=== PATIENT | female | born 1960 | race Caucasian/White ===

== ENCOUNTER 2017-10-14 15:50 | Inpatient (IN) | payer BC, MEDICAID, SELFPAY ==
[2017-10-14 15:51] VITALS: BP 122/88; PULSE 81; RESP 16; TEMP 36.7; O2SAT 97; BMI 26.7
--- NOTE | 2017-10-14 16:09 | CT_ITS ---
STUDY: CT ABDOMEN AND PELVIS WITHOUT CONTRAST REASON FOR EXAM: Female, 57 years old. Lower abdominal pain RADIATION DOSAGE (If Supplied By Facility): CTDIvol = ( 8.21 ) mGy, DLP = ( 451.18 ) mGycm TECHNIQUE: Transaxial images were obtained from the dome of the diaphragm to the symphysis pubis without oral contrast, and without intravenous contrast. Sagittal and coronal images were reconstructed. Individualized dose optimization techniques were used for this CT. COMPARISON: June 17, 2017 FINDINGS: There is minor atelectasis within the dependent portion of the lungs The visualized portions of the heart are within normal limits. Normal liver. Normal gallbladder and extrahepatic biliary system. Normal spleen. Normal pancreas. Normal bilateral adrenal glands. No evidence for renal obstruction or ureteral calculus. There is a large simple cyst arising from the upper pole the right kidney. Normal visualized stomach. Mild diffuse ileus pattern. Diverticular changes of the distal descending and sigmoid colon in association with acute diverticulitis of the distal descending colon. There is extraluminal air bubble consistent with microperforation. There is no evidence for peridiverticular abscess. Appendix not visualized consistent with appendectomy Minor atherosclerotic changes of the aorta without evidence for aneurysm. Normal inferior vena cava. Normal retroperitoneum. Normal urinary bladder. Uterus not visualized consistent with hysterectomy. Normal abdominal wall. Lumbar spine demonstrates mild spondylosis. Left hip prosthesis is observed. CT/Abdomen/Pelvis without Cont IMPRESSION: Diverticulosis of the descending and sigmoid colon associated with acute diverticulitis and microperforation but no evidence for peridiverticular abscess. Other findings as above N.B. : The above information has been verbally conveyed by Ganga Chacon MD to Dr. Chris Darling , Referring Physician, on 10/14/2017 17:26:03 (ET). Electronically Signed: Ganga Chacon MD at 17:21 EST , Service support , N.B. : The above information has been verbally conveyed by Ganga Chacon MD to Dr. Chris Darling , Referring Physician, on 10/14/2017 17:26:03 (ET).
[2017-10-14 16:20] LABS: Absolute Neutrophil Count 15.7 X10^3/uL (2.0-7.7); Basophil# 0.01 X10^3/uL; Basophil% 0.1 % (0-1); Hemoglobin 14.2 g/dl (12.0-15.0); Lymphocyte % 11.3 % (19-41); Mean Corp Hgb Conc 33.8 g/gl (32-36); Mean Corpuscular Hgb 31.1 pg (27.0-32.0); Mean Corpuscular Volume 91.9 fL (81-99); Mean Platelet Vol. 11.3 fl (6.2-12.0); Monocyte# 1.54 X10^3/uL; Monocyte% 7.9 % (0-10); Neutrophil # 15.74 X10^3/uL (2.7-7.7); Neutrophil % 80.4 % (47-70); Platelet Count 230 K/mm3 (150-450); RBC Distribution Width CV 13.7 % (11.6-14.6); RBC Distribution Width SD 45.8 fl (35.1-43.9); Red Blood Count 4.57 M/mm3 (4.2-5.4); White Blood Count 19.5 K/mm3 (4.4-11.0)
[2017-10-14] MEDS: 0.9% Normal Saline 1,000 ML 125 ML IV (16:23)
[2017-10-14] MEDS: HYDROmorphone 1 MG/ML Syringe IV (16:23)
[2017-10-14] MEDS: Ondansetron 4 MG/2 ML Vial IV ×2 (16:23→20:31)
[2017-10-14 16:24] LABS: Differential Indicated SCAN CRITERIA MET; POSITIVE COUNT NO; POSITIVE DIFFERENTIAL YES; POSITIVE MORPHOLOGY NO
[2017-10-14 16:42] LABS: AST(SGOT) 14 U/L (15-37); Alanine Aminotransfer ALT/SGPT 24 U/L (13-56); Alkaline Phosphatase 104 U/L (45-117); Anion Gap 12 (5-15); BUN 17 mg/dL (7-18); BUN/Creat Ratio 19.2 RATIO (10-20); Calcium,Total 9.2 mg/dL (8.5-10.1); Chloride 101 mmol/L (98-107); Creatinine, Serum 0.89 mg/dL (0.55-1.02); EST Glomerular Filtration Rate 69 mL/min (>60); Est Glom Filt Rate - Afr Amer 84 mL/min (>60); Estimated Creatinine Clearance 71.13 ml/min; Globulin 4.2 g/dL (2.2-4.2); Glucose 116 mg/dL (74-106); Potassium 3.8 mmol/L (3.5-5.1); Protein, Total 8.2 g/dL (6.4-8.2); Sodium Level 138 mmol/L (136-145)
[2017-10-14 16:44] LABS: Platelet Estimate ADEQUATE (ADEQ); Platelet Morphology LARGE
[2017-10-14 16:51] LABS: Lactic Acid 2.1 mmol/L (0.4-2.0)
--- NOTE | 2017-10-14 16:51 | ED.RN ---
DR MCKOY NOTIFIED OF LACTIC ACID RESULTS
[2017-10-14 17:30] LABS: Red Blood Cells-Urine 0 SEEN /hpf (0-5)
--- NOTE | 2017-10-14 17:37 | ED.VISSUMM ---
- ER Visit Summary Date of Service: 10/14/17 Chief Complaint: [Abdominal pain] History of Present Illness: The patient is a 57 F [presents to the emergency department with abdominal pain that started yesterday. Patient has had fever up to 101 at home. Patient has had some nausea and dry heaves. Currently rates her pain a 10 out of 10. Patient describes the pain is lower abdomen. Patient states that she ate popcorn about an hour prior to her abdominal pain starting. Patient does have a history of diverticulitis. Patient denies urinary symptoms. Food does not seem to affect her pain. Patient has had prior appendectomy and hysterectomy.] Physical Examination: [HEENT-PERRLA, EOMI. Cranial nerves II through XII grossly intact. TMs clear. Mucous membranes moist. No adenopathy. Cardiovascular-regular rate and rhythm without murmur or ectopy Lungs-clear to auscultation, chest wall stable without crepitus or subcu emphysema Abdomen-normoactive bowel sounds, soft patient has tenderness over the lower abdomen diffusely especially over the left lower quadrant. There is some guarding. There is no rebound, rigidity, or perineal signs. Extremities-intact ?4, normal range of motion, normal pulses, atraumatic] Test Results: [CBC with differential obtained showed a white blood cell count of 19.5, hemoglobin 14, hematocrit 42, platelets 230. Chemistries unremarkable. LFTs were normal. Lactate was 2.1. Urinalysis pending. CT scan of the abdomen and pelvis showed acute diverticulitis with microperforation.] Emergency Department Course and Treatment: [Patient case was discussed with Dr. Paniagua who is the general surgeon on-call. Patient was started on Cipro and Flagyl and also discussed with the hospitalist Dr. Victoriano Skaggs who will evaluate patient for admission.] Treatment Plan: [Patient will be admitted for IV antibiotics and pain control] Disposition: [Admit] Impression: [Acute diverticulitis Sepsis] This note was generated with [employer] dictation software. It may contain incorrect words, spelling, and punctuation that were not noted in review of the chart prior to signing ED Disposition - Plan for ED Patient: Chief Complaint: Abd Pain Referrals: Thor Cho III, MD [Primary Care Provider] -
[2017-10-14 17:38] LABS: Color, Urine Yellow (Yellow); Glucose, Dipstick Normal (Normal); Ketone-Dipstick 5 mg/dl (Negative); Leukocyte Esterase-Dipstick 500 /ul (Negative); Nitrite-Dipstick Negative (Negative); Occult Blood-Urine 50 /ul (Negative); Protein-Dipstick 30 mg/dl (Negative); Urine Bilirubin Dipstick Negative (Negative); Urine Clarity Clear (Clear); Urine Urobilinogen Normal (Normal)
[2017-10-14 17:45] LABS: Squamous Epithelial Cells - UA 0-5 SEEN /hpf (5-10); White Blood Cells 5-10 SEEN /hpf (0-5)
[2017-10-14 17:46] LABS: Bacteria RARE /hpf (None Seen); Mucous, Urine RARE /hpf (<or=2+)
--- NOTE | 2017-10-14 17:51 | PCM.HP.STD ---
Problem List (1) Sepsis Status: Acute (2) Diverticulitis Status: Acute (3) HTN (hypertension) Status: Chronic (4) Anxiety Status: Chronic History of Present Illness Date of Admission: 10/14/17 Chief Complaint: abdominal pain The patient is a 57 year old F with a history of acute diverticulitis treated as an outpatient about 3 months ago with cipro/flagyl who presents to the ER with lower abdominal pain. She began having abdominal pain yesterday afternoon, which worsened severely last night. No blood reported in her stool. She has also had some diarrhea but admits to taking a suppository last night. She reported a fever of 101 at home, no chills. CT of the abdomen shows acute diverticulitis and microperforation. She continues to have significant abdominal pain localized to the lower abdomen, both sides. No nausea or vomiting. [] Past Medical History Past Medical History (Chronic Problems): Chronic Problems HTN (hypertension) (Chronic) Anxiety (Chronic) Allergies oxycodone Allergy (Verified 10/14/17 15:50) Swelling nabumetone [From Relafen] Adverse Reaction (Verified 10/14/17 15:50) Nausea Sulfa (Sulfonamide Antibiotics) Adverse Reaction (Verified 10/14/17 15:50) Nausea tramadol HCl [From Ultram] Adverse Reaction (Verified 10/14/17 15:50) Nausea Home Medications: Ambulatory Orders Medication Instructions Recorded Doxylamine Succinate [Unisom] 25 mg PO QHS 06/07/15 Lorazepam [Ativan] 0.5 mg PO DAILY PRN PRN 06/07/15 Cholecalciferol (VIT D3) [Vitamin 5,000 unit PO DAILY 03/24/16 D3] Magnesium 300 mg PO DAILY 03/24/16 Trazodone HCl 50 mg PO QHS 03/24/16 Vitamin B Complex 1 each PO DAILY 03/24/16 Metoprolol Succinate 25 mg PO QHS 04/24/16 Multivitamins,Therapeutic 1 tab PO DAILY 06/17/17 [Multivitamin] Surgical History: appendectomy, hysterectomy, rotator cuff repair, total hip arthroplasty, - - brain surgery for hydrocephalus, tubal ligation Psychiatric History: No pertinent psych hx 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 Denies: Chills, Weight Change HEENT: Denies: Head Aches, Sinus Congestion, Sinus Drainage Cardiovascular: Denies: Chest Pain, Palpitations Respiratory: Denies: Cough, Shortness of breath at rest, Sputum production Gastrointestinal: Reports: Abdominal Pain, Diarrhea. Denies: Hematochezia, Nausea, Vomiting Genitourinary: Denies: Dysuria Musculoskeletal: Denies: Joint Pain, Joint Tenderness Skin: Denies: Rash, Wounds Neurological: Denies: Numbness, Tingling, Focal weakness Psychiatric: Denies: Anxiety, Depression, Homicidal Ideations, Suicidal Ideations Hematologic/ Lymphatic: Denies: Easy Bruising, Easy Bleeding VTE Information - Inpt Only VTE Present on Admission: No VTE Mechan Device Prophylaxis: SCD's VTE Pharm Prophylaxis ordered?: No Reason prophylaxis not ordered:: Medical Contraindication Patient Problems: Active and Suspected Problems Diverticulitis (Acute) Sepsis (Acute) - Physical Exam General: Alert, Oriented x3, Cooperative, - - appears in significant discomfort in bed HEENT: Atraumatic, PERRLA, EOMI, Normocephalic Neck: Supple, No JVD, Negative Carotid Bruits Lungs: Clear to auscultation, Normal air movement Cardiovascular: Regular rate, No murmurs Abdomen: Bowel Sounds Present, Tender - LUQ, RLQ, LLQ Extremities: No edema, Capillary Refill Less than 3 Seconds Skin: No rashes, No breakdown Musculoskeletal: No Tenderness to Palpation of Joints or Extremities Neurological: Cranial nerves II-XII grossly intact Psych/Mental Status: Normal Affect, Appropriate, Alert and oriented to time, place, person, mood and affect Vital Signs Temp Pulse Resp BP Pulse Ox 98.0 F 81 16 122/88 H 97 10/14/17 15:51 10/14/17 15:51 10/14/17 15:51 10/14/17 15:51 10/14/17 15:51 Oxygen Delivery Method Room Air Weight: 82.1 kg Body Mass Index (BMI) 26.7 Laboratory Tests Past 24 Hrs 10/14/17 10/14/17 10/14/17 16:00 16:00 16:15 WBC 19.5 H RBC 4.57 Hgb 14.2 Hct 42.0 MCV 91.9 MCH 31.1 MCHC 33.8 RDW 13.7 RDW Differential 45.8 H Plt Count 230 MPV 11.3 Immature Gran % (Auto) 0.300 Neut % (Auto) 80.4 H Lymph % (Auto) 11.3 L [place] % (Auto) 7.9 Eos % (Auto) 0.0 Baso % (Auto) 0.1 Absolute Neuts (auto) 15.7 H Absolute Lymphs (auto) 2.20 Total Counted Not Reportable Platelet Estimate ADEQUATE Plt Morphology Comment LARGE Sodium 138 Potassium 3.8 Chloride 101 Carbon Dioxide 25.0 Anion Gap 12 BUN 17 Creatinine 0.89 Estim Creat Clear Calc 71.13 Est GFR (MDRD) Af Amer 84 Est GFR (MDRD) Non-Af 69 BUN/Creatinine Ratio 19.2 Glucose 116 H Lactic Acid 2.1 H Calcium 9.2 Total Bilirubin 0.90 AST 14 L ALT 24 Alkaline Phosphatase 104 Total Protein 8.2 Albumin 4.0 Globulin 4.2 Albumin/Globulin Ratio 1.0 Urine Color Urine Clarity Urine pH Ur Specific [place] Urine Protein Urine Glucose (UA) Urine Ketones Urine Occult Blood Urine Nitrite Urine Bilirubin Urine Urobilinogen Ur Leukocyte Esterase Urine RBC Urine WBC Ur Squamous Epith Cells Urine Bacteria Urine Mucus 10/14/17 17:20 WBC RBC Hgb Hct MCV MCH MCHC RDW RDW Differential Plt Count MPV Immature Gran % (Auto) Neut % (Auto) Lymph % (Auto) [place] % (Auto) Eos % (Auto) Baso % (Auto) Absolute Neuts (auto) Absolute Lymphs (auto) Total Counted Platelet Estimate Plt Morphology Comment Sodium Potassium Chloride Carbon Dioxide Anion Gap BUN Creatinine Estim Creat Clear Calc Est GFR (MDRD) Af Amer Est GFR (MDRD) Non-Af BUN/Creatinine Ratio Glucose Lactic Acid Calcium Total Bilirubin AST ALT Alkaline Phosphatase Total Protein Albumin Globulin Albumin/Globulin Ratio Urine Color Yellow Urine Clarity Clear Urine pH 6.0 Ur Specific [place] 1.020 Urine Protein 30 H Urine Glucose (UA) Normal Urine Ketones 5 H Urine Occult Blood 50 H Urine Nitrite Negative Urine Bilirubin Negative Urine Urobilinogen Normal Ur Leukocyte Esterase 500 H Urine RBC 0 SEEN Urine WBC 5-10 SEEN Ur Squamous Epith Cells 0-5 SEEN Urine Bacteria RARE Urine Mucus RARE Assessment/Plan Active and Suspected Problems Diverticulitis (Acute) Sepsis (Acute) 1. Acute Recurrent diverticulitis with microperforation with severe sepsis - BL lower abdominal pain, tenderness on palpitation, elevated lactate, significant leukocytosis, fever at home of 101, source of infection on CT abdomen with diverticulitis and microperforation. We will start cipro and flagyl and provide IV pepcid. Patient will be made NPO and given IV fluids with supportive care. As she has a microperforation Dr. Montez will be consulted. Last episode about 3 months ago treated as outpatient with cipro flagyl. No reported bleeding and Hgb stable. 2. HTN - on metoprolol 3. Chronic back pain and DJD 4. Anxiety - home meds DVT ppx: SCDs This patient was seen by Ronnie Platt PA-C under the supervision of Doctor Skaggs.
[2017-10-14] MEDS: 0.9% Normal Saline 1,000 ML 1000 ML IV (17:55)
[2017-10-14 17:56] VITALS: BP 121/76; PULSE 87; RESP 15; TEMP 36.6; O2SAT 99
[2017-10-14 18:31] VITALS: BP 114/67; PULSE 75; RESP 18; TEMP 36.7; O2SAT 97
[2017-10-14 18:38] VITALS: BMI 27.6
[2017-10-14 18:46] VITALS: BMI 27.7
[2017-10-14 20:05] VITALS: BP 116/59; PULSE 73; RESP 18; TEMP 37.9; O2SAT 94
[2017-10-14 20:17] LABS: Reflex Lactate? Y
[2017-10-14 20:40] VITALS: PULSE 73; RESP 18; O2SAT 94
[2017-10-14 20:59] LABS: Lactic Acid 1.9 mmol/L (0.4-2.0)
[2017-10-14 22:14] VITALS: BP 116/59; PULSE 73
[2017-10-14] MEDS: traZODone 50 MG Tablet PO (22:14)
[2017-10-14] MEDS: Metoprolol(XL)Succ 25 MG Tablet PO (22:14)
--- NOTE | 2017-10-14 23:45 | CON.PCM_ITS ---
Problem List (1) Diverticulitis Status: Acute Reason for Consult Date of Consultation: 10/14/17 History of Present Illness: The patient is a 57 year old F with a one day history of LLQ pain, fever, nausea and diarrhea. She has had prior colitis. She also notes a history of feeling that she has bloating. She underwent colonoscopy 4 years previously that demonstrated sigmoid diverticulosis. She feels this is related to eating popcorn. She took a dulcolax tablet and then had diarrhea. CT scan demonstrated sigmoid diverticulitis and a small amount of extraluminal air consistent with microperforation. Her WBC count is 19K In June, she was evaluated and treated for mild diverticulitis. Past Medical History Past Medical History (Chronic Problems): Chronic Problems HTN (hypertension) (Chronic) Anxiety (Chronic) Allergies oxycodone Allergy (Verified 10/14/17 15:50) Swelling nabumetone [From Relafen] Adverse Reaction (Verified 10/14/17 15:50) Nausea Sulfa (Sulfonamide Antibiotics) Adverse Reaction (Verified 10/14/17 15:50) Nausea tramadol HCl [From Ultram] Adverse Reaction (Verified 10/14/17 15:50) Nausea Home Medications: Ambulatory Orders Medication Instructions Recorded Doxylamine Succinate [Unisom] 25 mg PO QHS 06/07/15 Lorazepam [Ativan] 0.5 mg PO DAILY PRN PRN 06/07/15 Cholecalciferol (VIT D3) [Vitamin 5,000 unit PO DAILY 03/24/16 D3] Magnesium 300 mg PO DAILY 03/24/16 Trazodone HCl 50 mg PO QHS 03/24/16 Vitamin B Complex 1 each PO DAILY 03/24/16 Metoprolol Succinate 25 mg PO DAILY 04/24/16 Multivitamins,Therapeutic 1 tab PO DAILY 06/17/17 [Multivitamin] Surgical History: appendectomy, hysterectomy, rotator cuff repair, total hip arthroplasty, - - brain surgery for hydrocephalus, tubal ligation Psychiatric History: 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 Denies: Vomiting Genitourinary: Denies: Dysuria Musculoskeletal: Denies: Joint Pain, Joint Tenderness Skin: Denies: Rash, Wounds Neurological: Denies: Numbness, Tingling, Focal weakness Psychiatric: Denies: Anxiety, Depression, Homicidal Ideations, Suicidal Ideations Hematologic/ Lymphatic: Denies: Easy Bruising, Easy Bleeding Patient Problems: Active and Suspected Problems Diverticulitis (Acute) Sepsis (Acute) - Physical Exam General: Alert, Oriented x3 Lungs: Clear to auscultation, Normal air movement Cardiovascular: Regular rate, Regular Rhythm Abdomen: Bowel Sounds Present, Soft, Tender - LLQ Vital Signs Temp Pulse Resp BP Pulse Ox 100.2 F H 73 18 116/59 L 94 10/14/17 20:05 10/14/17 22:14 10/14/17 20:40 10/14/17 22:14 10/14/17 20:40 Oxygen Delivery Method Room Air Weight: 82.554 kg Body Mass Index (BMI) 27.6 Laboratory Tests Past 24 Hrs 10/14/17 10/14/17 20:25 22:00 Lactic Acid 1.9 Cancelled Assessment/Plan Active and Suspected Problems Diverticulitis (Acute) Sepsis (Acute) diverticulitis with an elevated white blood cell count of 19,000, and microperforation. I recommend bowel rest. I'm fine with a few sips and ice chips. The patient has an order for ciprofloxacin and Flagyl which I feel is appropriate antibiotic coverage for this condition. I discussed with the patient and most likely her symptoms respond to conservative treatments of bowel rest and antibiotics. We will further discuss. Given the fact this is recurring symptom, the need for endoscopy in 6-8 weeks and consideration for surgical resection. I also discussed that progression to complicated diverticulitis is rare. If this becomes complicated diverticulitis -that might require intervention such as percutaneous drainage or urgent surgical intervention.
[2017-10-15] VITALS (7 sets, daily range): BP systolic 101–116; BP diastolic 54–71; PULSE 57–73; RESP 16–18; TEMP 36.9–37.6; O2SAT 93–98
[2017-10-15] MEDS: 0.9% Normal Saline 1,000 ML 150 ML IV ×3 (01:40→18:28)
[2017-10-15] MEDS: Ondansetron 4 MG/2 ML Vial IV ×5 (01:44→20:16)
[2017-10-15 05:41] LABS: Anion Gap 7 (5-15); BUN 15 mg/dL (7-18); BUN/Creat Ratio 22.2 RATIO (10-20); Calcium,Total 8.1 mg/dL (8.5-10.1); Chloride 105 mmol/L (98-107); Creatinine, Serum 0.68 mg/dL (0.55-1.02); EST Glomerular Filtration Rate 95 mL/min (>60); Est Glom Filt Rate - Afr Amer 114 mL/min (>60); Estimated Creatinine Clearance 89.86 ml/min; Glucose 112 mg/dL (74-106); Potassium 3.9 mmol/L (3.5-5.1); Sodium Level 139 mmol/L (136-145)
[2017-10-15 05:42] LABS: Absolute Lymphocyte Count 1.39 X10^3/ul (0.83-4.51); Basophil# 0.02 X10^3/uL; Basophil% 0.2 % (0-1); Eosinophil# 0.01 X10^3/uL; Eosinophils% 0.1 % (0-5); Hematocrit 34.5 % (37-47); Hemoglobin 11.5 g/dl (12.0-15.0); Lymphocyte # 1.39 X10^3/ul (4.0); Lymphocyte % 11.1 % (19-41); Mean Corp Hgb Conc 33.3 g/gl (32-36); Mean Corpuscular Hgb 31.6 pg (27.0-32.0); Mean Corpuscular Volume 94.8 fL (81-99); Mean Platelet Vol. 11.6 fl (6.2-12.0); Monocyte# 1.04 X10^3/uL; Monocyte% 8.3 % (0-10); Neutrophil # 10.01 X10^3/uL (2.7-7.7); Neutrophil % 80.1 % (47-70); Platelet Count 178 K/mm3 (150-450); RBC Distribution Width CV 13.6 % (11.6-14.6); RBC Distribution Width SD 44.7 fl (35.1-43.9); Red Blood Count 3.64 M/mm3 (4.2-5.4); White Blood Count 12.5 K/mm3 (4.4-11.0)
[2017-10-15 05:43] LABS: POSITIVE COUNT NO; POSITIVE DIFFERENTIAL NO; POSITIVE MORPHOLOGY NO
--- NOTE | 2017-10-15 08:41 | RAD_ITS ---
STUDY: X-RAY - ABDOMEN/PELVIS REASON FOR EXAM: Female, 57 years old. Abdominal pain and abdominal distention. History of recent diverticulitis. TECHNIQUE: Two AP supine views of the abdomen and pelvis. COMPARISON: None. FINDINGS: Minimally dilated small bowel loops in the left upper quadrant. Gas and fecal material are seen throughout the colon. The visualized liver, spleen and kidneys are grossly normal in size and morphology. There are calcified phleboliths in the pelvis. There are degenerative changes of the visualized lumbar spine. The patient is status post left total hip replacement. RAD/Abdomen Single View IMPRESSION: Moderately dilated small bowel loops in the left mid abdomen. Follow-up is recommended. Electronically Signed: Alexandre Suggs MD at 10:34 EST Tel [phone], Service support ,
[2017-10-15] MEDS: Ciprofloxacin 400 MG/200 ML BAG 200 MG IV ×2 (10:16→23:16)
[2017-10-15] MEDS: 0.9% NaCl Peripheral Flush Adult/Peds IV ×3 (10:16→20:22)
--- NOTE | 2017-10-15 11:00 | PN_ITS ---
Patient Problems: Active and Suspected Problems Diverticulitis (Acute) Sepsis (Acute) Subjective: Pt still with a significant amount of LLQ abdominal pain reported this AM, and she feels that she is distended. She has not moved her bowels since admission. No nausea or vomiting. She denies fever or chills. She remains NPO. - Physical Exam General: Alert, Oriented x3, Cooperative HEENT: Atraumatic, PERRLA, EOMI, Normocephalic Neck: Supple, No JVD, Negative Carotid Bruits Lungs: Clear to auscultation, Normal air movement Cardiovascular: Regular rate, No murmurs Abdomen: Hypoactive Bowel Sounds, Distended, Tender - especially over LLQ even with light palpation. But tender throughout with guarding. Extremities: No edema, Capillary Refill Less than 3 Seconds Skin: No rashes, No breakdown Musculoskeletal: No Tenderness to Palpation of Joints or Extremities Neurological: Cranial nerves II-XII grossly intact Psych/Mental Status: Normal Affect, Appropriate, Alert and oriented to time, place, person, mood and affect Vital Signs Temp Pulse Resp BP Pulse Ox 99.2 F H 57 L 16 104/57 L 96 10/15/17 08:00 10/15/17 08:00 10/15/17 08:00 10/15/17 08:00 10/15/17 08:00 Oxygen Flow Rate 2 Oxygen Delivery Method Room Air Weight: 82.554 kg Body Mass Index (BMI) 27.6 Intake and Output for Last 24 Hours 10/13/17 10/14/17 10/15/17 23:59 23:59 23:59 Intake Total 1765 / 1765 Output Total 1050 / 1050 Balance 715 / 715 Laboratory Tests Past 24 Hrs 10/14/17 10/14/17 10/15/17 20:25 22:00 05:10 WBC 12.5 H RBC 3.64 L Hgb 11.5 L Hct 34.5 L MCV 94.8 MCH 31.6 MCHC 33.3 RDW 13.6 RDW Differential 44.7 H Plt Count 178 MPV 11.6 Immature Gran % (Auto) 0.200 Neut % (Auto) 80.1 H Lymph % (Auto) 11.1 L [place] % (Auto) 8.3 Eos % (Auto) 0.1 Baso % (Auto) 0.2 Absolute Neuts (auto) 10.0 H Absolute Lymphs (auto) 1.39 Total Counted Not Reportable Sodium Potassium Chloride Carbon Dioxide Anion Gap BUN Creatinine Estim Creat Clear Calc Est GFR (MDRD) Af Amer Est GFR (MDRD) Non-Af BUN/Creatinine Ratio Glucose Lactic Acid 1.9 Cancelled Calcium 10/15/17 05:10 WBC RBC Hgb Hct MCV MCH MCHC RDW RDW Differential Plt Count MPV Immature Gran % (Auto) Neut % (Auto) Lymph % (Auto) [place] % (Auto) Eos % (Auto) Baso % (Auto) Absolute Neuts (auto) Absolute Lymphs (auto) Total Counted Sodium 139 Potassium 3.9 Chloride 105 Carbon Dioxide 27.0 Anion Gap 7 BUN 15 Creatinine 0.68 Estim Creat Clear Calc 89.86 Est GFR (MDRD) Af Amer 114 Est GFR (MDRD) Non-Af 95 BUN/Creatinine Ratio 22.2 H Glucose 112 H Lactic Acid Calcium 8.1 L Assessment/Plan Active and Suspected Problems Diverticulitis (Acute) Sepsis (Acute) 1. Acute Recurrent diverticulitis with microperforation with severe sepsis - Presented with BL lower abdominal pain, tenderness on palpitation, elevated lactate, significant leukocytosis, fever at home of 101, source of infection on CT abdomen with diverticulitis and microperforation. She is on cipro and flagyl, NPO, IV fluids, and surgery is following. Today she has some distention and is very tender on exam. Pain is more localized to the LLQ. WBC has improved , Lactate improved, T max 100.2 last night. KUB this AM demonstrates moderately dilated small bowel loops in the left mid abdomen. 2. HTN - on metoprolol 3. Chronic back pain and DJD 4. Anxiety - home meds DVT ppx: SCDs This patient was seen by Ronnie Platt PA-C under the supervision of Doctor Skaggs.
--- NOTE | 2017-10-15 11:15 | CASEMGMT ---
RN ITZ Face to Face with patient for initial transition planning/care coordination assessment. RN CM introduced self and role at [facility]. Patient lying in bed, alert and oriented, at bedside. Patient willing to participate in assessment and is able to answer all questions appropriately. Care providers, pharmacy, and demographics verified. See link attached. Patient wishes to discharge home, denies need for home health at this time. Patient states she has no further needs or concerns at this time. CM to follow for discharge planning needs that may arise. Disposition Plan: Patient to discharge home with family support and follow-up plans in place.
[2017-10-15] MEDS: traZODone 50 MG Tablet PO (22:09)
[2017-10-15] MEDS: Metoprolol(XL)Succ 25 MG Tablet PO (22:10)
[2017-10-16] MEDS: Ondansetron 4 MG/2 ML Vial IV ×3 (00:17→18:51)
[2017-10-16] MEDS: 0.9% NaCl Peripheral Flush Adult/Peds IV ×3 (00:17→05:40)
[2017-10-16 02:14] VITALS: BP 105/58; PULSE 63; RESP 18; TEMP 37.2; O2SAT 94
[2017-10-16] MEDS: 0.9% Normal Saline 1,000 ML 150 ML IV ×3 (03:06→21:04)
[2017-10-16 05:39] LABS: Absolute Lymphocyte Count 1.28 X10^3/ul (0.83-4.51); Absolute Neutrophil Count 7.4 X10^3/uL (2.0-7.7); Basophil# 0.01 X10^3/uL; Basophil% 0.1 % (0-1); Eosinophil# 0.05 X10^3/uL; Eosinophils% 0.5 % (0-5); Hematocrit 33.3 % (37-47); Hemoglobin 10.9 g/dl (12.0-15.0); Lymphocyte # 1.28 X10^3/ul (4.0); Lymphocyte % 13.5 % (19-41); Mean Corp Hgb Conc 32.7 g/gl (32-36); Mean Corpuscular Hgb 31.1 pg (27.0-32.0); Mean Corpuscular Volume 95.1 fL (81-99); Mean Platelet Vol. 11.7 fl (6.2-12.0); Monocyte# 0.74 X10^3/uL; Monocyte% 7.8 % (0-10); Neutrophil # 7.38 X10^3/uL (2.7-7.7); Platelet Count 178 K/mm3 (150-450); RBC Distribution Width CV 13.3 % (11.6-14.6); RBC Distribution Width SD 44.1 fl (35.1-43.9); White Blood Count 9.5 K/mm3 (4.4-11.0)
[2017-10-16 05:45] LABS: POSITIVE COUNT NO; POSITIVE DIFFERENTIAL NO; POSITIVE MORPHOLOGY NO
--- NOTE | 2017-10-16 06:05 | PCM.PN.SRG ---
Patient Problems: Active and Suspected Problems Diverticulitis (Acute) Sepsis (Acute) Subjective: still pain, passing flatus - improved - Physical Exam General: Alert, Oriented x3 Abdomen: Bowel Sounds Present, Soft, Tender - but improved Vital Signs Temp Pulse Resp BP Pulse Ox 98.9 F 63 18 105/58 L 94 10/16/17 02:14 10/16/17 02:14 10/16/17 02:14 10/16/17 02:14 10/16/17 02:14 Oxygen Flow Rate 2 Oxygen Delivery Method Nasal Cannula Weight: 82.6 kg Body Mass Index (BMI) 27.6 Intake and Output for Last 24 Hours 10/14/17 10/15/17 10/16/17 23:59 23:59 23:59 Intake Total 3265 / 3265 2184 / 2184 Output Total 2049 / 2049 1150 / 1150 Balance 1215 / 1215 1034 / 1034 Laboratory Tests Past 24 Hrs 10/16/17 05:08 WBC 9.5 RBC 3.50 L Hgb 10.9 L Hct 33.3 L MCV 95.1 MCH 31.1 MCHC 32.7 RDW 13.3 RDW Differential 44.1 H Plt Count 178 MPV 11.7 Immature Gran % (Auto) 0.100 Neut % (Auto) 78.0 H Lymph % (Auto) 13.5 L [place] % (Auto) 7.8 Eos % (Auto) 0.5 Baso % (Auto) 0.1 Absolute Neuts (auto) 7.4 Absolute Lymphs (auto) 1.28 Total Counted Not Reportable Assessment/Plan Active and Suspected Problems Diverticulitis (Acute) Sepsis (Acute) diverticulitis with microperforation. WBC normal, afebrile. pain presnet but improving. OK to start clearsI ciprofloxacin and Flagyl to continue .
[2017-10-16 08:00] VITALS: BP 119/60; PULSE 56; RESP 16; TEMP 37.1; O2SAT 94
[2017-10-16] MEDS: Ciprofloxacin 400 MG/200 ML BAG 200 MG IV ×2 (09:38→21:05)
--- NOTE | 2017-10-16 12:00 | PCM.PN.SRG ---
Patient Problems: Active and Suspected Problems Diverticulitis (Acute) Sepsis (Acute) Subjective: missed note for 10/15 - Physical Exam General: Alert Neck: Supple, No JVD, Negative Carotid Bruits Lungs: Clear to auscultation, Normal air movement Cardiovascular: Regular rate, No murmurs Abdomen: Bowel Sounds Present, Soft, Distended - mildly, Tender - tender but improved Vital Signs Temp Pulse Resp BP Pulse Ox 98.7 F 56 L 16 119/60 94 10/16/17 08:00 10/16/17 08:00 10/16/17 08:00 10/16/17 08:00 10/16/17 08:00 Oxygen Flow Rate 2 Oxygen Delivery Method Room Air Weight: 82.6 kg Body Mass Index (BMI) 27.6 Intake and Output for Last 24 Hours 10/14/17 10/15/17 10/16/17 23:59 23:59 23:59 Intake Total 3265 / 3265 2184 / 2184 Output Total 2049 / 2049 1150 / 1150 Balance 1215 / 1215 1034 / 1034 Laboratory Tests Past 24 Hrs 10/16/17 05:08 WBC 9.5 RBC 3.50 L Hgb 10.9 L Hct 33.3 L MCV 95.1 MCH 31.1 MCHC 32.7 RDW 13.3 RDW Differential 44.1 H Plt Count 178 MPV 11.7 Immature Gran % (Auto) 0.100 Neut % (Auto) 78.0 H Lymph % (Auto) 13.5 L [place] % (Auto) 7.8 Eos % (Auto) 0.5 Baso % (Auto) 0.1 Absolute Neuts (auto) 7.4 Absolute Lymphs (auto) 1.28 Total Counted Not Reportable Assessment/Plan Active and Suspected Problems Diverticulitis (Acute) Sepsis (Acute) diverticulitis with microperforation. WBC 12 from 19 afebrile. pain presnet but improving. OK to start clearsI ciprofloxacin and Flagyl to continue .
--- NOTE | 2017-10-16 12:25 | PCM.PROGNOTE ---
<Ronnie Platt - Last Filed: 10/16/17 12:25> Patient Problems: Active and Suspected Problems Diverticulitis (Acute) Sepsis (Acute) Subjective: Pt reports mild improvement in abdominal pain still localized to the LLQ. She has started clears and is tolerating water. Jello made her nauseous - no vomiting. No BM yet as of this am, + flatus. No fever or chills. - Physical Exam General: Alert, Oriented x3, Cooperative HEENT: Atraumatic, PERRLA, EOMI, Normocephalic Neck: Supple, No JVD, Negative Carotid Bruits Lungs: Clear to auscultation, Normal air movement Cardiovascular: Regular rate, No murmurs Abdomen: Bowel Sounds Present, Soft, Tender Extremities: No edema, Capillary Refill Less than 3 Seconds Skin: No rashes, No breakdown Musculoskeletal: No Tenderness to Palpation of Joints or Extremities Neurological: Cranial nerves II-XII grossly intact Psych/Mental Status: Normal Affect, Appropriate Vital Signs Temp Pulse Resp BP Pulse Ox 98.7 F 56 L 16 119/60 94 10/16/17 08:00 10/16/17 08:00 10/16/17 08:00 10/16/17 08:00 10/16/17 08:00 Oxygen Flow Rate 2 Oxygen Delivery Method Room Air Weight: 82.6 kg Body Mass Index (BMI) 27.6 Intake and Output for Last 24 Hours 10/14/17 10/15/17 10/16/17 23:59 23:59 23:59 Intake Total 3265 / 3265 2184 / 2184 Output Total 2049 / 2049 1150 / 1150 Balance 1215 / 1215 1034 / 1034 Laboratory Tests Past 24 Hrs 10/16/17 05:08 WBC 9.5 RBC 3.50 L Hgb 10.9 L Hct 33.3 L MCV 95.1 MCH 31.1 MCHC 32.7 RDW 13.3 RDW Differential 44.1 H Plt Count 178 MPV 11.7 Immature Gran % (Auto) 0.100 Neut % (Auto) 78.0 H Lymph % (Auto) 13.5 L [place] % (Auto) 7.8 Eos % (Auto) 0.5 Baso % (Auto) 0.1 Absolute Neuts (auto) 7.4 Absolute Lymphs (auto) 1.28 Total Counted Not Reportable Assessment/Plan Active and Suspected Problems Diverticulitis (Acute) Sepsis (Acute) 1. Acute Recurrent diverticulitis with microperforation with severe sepsis - Pain and tenderness continue. Pt diet advanced per surgery to clears. WBC resolved. No further fever. Continue cipro and flagyl. 2. HTN - on metoprolol 3. Chronic back pain and DJD 4. Anxiety - home meds DVT ppx: SCDs This patient was seen by Ronnie Platt PA-C under the supervision of Doctor Dion. <Jose Ashley - Last Filed: 10/16/17 14:08> - Physical Exam General: Alert, Cooperative HEENT: Atraumatic, Normocephalic Lungs: Clear to auscultation, Normal air movement Cardiovascular: Regular rate, Regular Rhythm, Normal S1, Normal S2 Abdomen: Bowel Sounds Present, Soft, Tender Extremities: No edema, No Calf Tenderness Skin: No rashes, No breakdown Musculoskeletal: No Tenderness to Palpation of Joints or Extremities, No Muscle Wasting Psych/Mental Status: Normal Affect, Appropriate Vital Signs Temp Pulse Resp BP Pulse Ox 37.1 C 56 L 16 119/60 94 10/16/17 08:00 10/16/17 08:00 10/16/17 08:00 10/16/17 08:00 10/16/17 08:00 Oxygen Flow Rate 2 Oxygen Delivery Method Room Air Weight: 82.6 kg Body Mass Index (BMI) 27.6 Intake and Output for Last 24 Hours 10/14/17 10/15/17 10/16/17 23:59 23:59 23:59 Intake Total 3265 / 3265 2184 / 2184 Output Total 2049 / 2049 1150 / 1150 Balance 1215 / 1215 1034 / 1034 Laboratory Tests Past 24 Hrs 10/16/17 05:08 WBC 9.5 RBC 3.50 L Hgb 10.9 L Hct 33.3 L MCV 95.1 MCH 31.1 MCHC 32.7 RDW 13.3 RDW Differential 44.1 H Plt Count 178 MPV 11.7 Immature Gran % (Auto) 0.100 Neut % (Auto) 78.0 H Lymph % (Auto) 13.5 L [place] % (Auto) 7.8 Eos % (Auto) 0.5 Baso % (Auto) 0.1 Absolute Neuts (auto) 7.4 Absolute Lymphs (auto) 1.28 Total Counted Not Reportable Assessment/Plan Patient seen and examined independent. Agree with the above note by the physician assistant news director. 1. Acute diverticulitis with microperforation Continue with Cipro and Flagyl Clear diet No imminent need for surgery at this time. 2. Severe sepsis Present on admission Currently resolved at this time. Code Visit Inpatient E&M: 39265 Subs Hosp L2
--- NOTE | 2017-10-16 12:30 | PN_ITS ---
<Ronnie Platt - Last Filed: 10/16/17 12:25> Patient Problems: Active and Suspected Problems Diverticulitis (Acute) Sepsis (Acute) Subjective: Pt reports mild improvement in abdominal pain still localized to the LLQ. She has started clears and is tolerating water. Jello made her nauseous - no vomiting. No BM yet as of this am, + flatus. No fever or chills. - Physical Exam General: Alert, Oriented x3, Cooperative HEENT: Atraumatic, PERRLA, EOMI, Normocephalic Neck: Supple, No JVD, Negative Carotid Bruits Lungs: Clear to auscultation, Normal air movement Cardiovascular: Regular rate, No murmurs Abdomen: Bowel Sounds Present, Soft, Tender Extremities: No edema, Capillary Refill Less than 3 Seconds Skin: No rashes, No breakdown Musculoskeletal: No Tenderness to Palpation of Joints or Extremities Neurological: Cranial nerves II-XII grossly intact Psych/Mental Status: Normal Affect, Appropriate Vital Signs Temp Pulse Resp BP Pulse Ox 98.7 F 56 L 16 119/60 94 10/16/17 08:00 10/16/17 08:00 10/16/17 08:00 10/16/17 08:00 10/16/17 08:00 Oxygen Flow Rate 2 Oxygen Delivery Method Room Air Weight: 82.6 kg Body Mass Index (BMI) 27.6 Intake and Output for Last 24 Hours 10/14/17 10/15/17 10/16/17 23:59 23:59 23:59 Intake Total 3265 / 3265 2184 / 2184 Output Total 2049 / 2049 1150 / 1150 Balance 1215 / 1215 1034 / 1034 Laboratory Tests Past 24 Hrs 10/16/17 05:08 WBC 9.5 RBC 3.50 L Hgb 10.9 L Hct 33.3 L MCV 95.1 MCH 31.1 MCHC 32.7 RDW 13.3 RDW Differential 44.1 H Plt Count 178 MPV 11.7 Immature Gran % (Auto) 0.100 Neut % (Auto) 78.0 H Lymph % (Auto) 13.5 L [place] % (Auto) 7.8 Eos % (Auto) 0.5 Baso % (Auto) 0.1 Absolute Neuts (auto) 7.4 Absolute Lymphs (auto) 1.28 Total Counted Not Reportable Assessment/Plan Active and Suspected Problems Diverticulitis (Acute) Sepsis (Acute) 1. Acute Recurrent diverticulitis with microperforation with severe sepsis - Pain and tenderness continue. Pt diet advanced per surgery to clears. WBC resolved. No further fever. Continue cipro and flagyl. 2. HTN - on metoprolol 3. Chronic back pain and DJD 4. Anxiety - home meds DVT ppx: SCDs This patient was seen by Ronnie Platt PA-C under the supervision of Doctor Dion. <Jose Ashley - Last Filed: 10/16/17 14:08> - Physical Exam General: Alert, Cooperative HEENT: Atraumatic, Normocephalic Lungs: Clear to auscultation, Normal air movement Cardiovascular: Regular rate, Regular Rhythm, Normal S1, Normal S2 Abdomen: Bowel Sounds Present, Soft, Tender Extremities: No edema, No Calf Tenderness Skin: No rashes, No breakdown Musculoskeletal: No Tenderness to Palpation of Joints or Extremities, No Muscle Wasting Psych/Mental Status: Normal Affect, Appropriate Vital Signs Temp Pulse Resp BP Pulse Ox 37.1 C 56 L 16 119/60 94 10/16/17 08:00 10/16/17 08:00 10/16/17 08:00 10/16/17 08:00 10/16/17 08:00 Oxygen Flow Rate 2 Oxygen Delivery Method Room Air Weight: 82.6 kg Body Mass Index (BMI) 27.6 Intake and Output for Last 24 Hours 10/14/17 10/15/17 10/16/17 23:59 23:59 23:59 Intake Total 3265 / 3265 2184 / 2184 Output Total 2049 / 2049 1150 / 1150 Balance 1215 / 1215 1034 / 1034 Laboratory Tests Past 24 Hrs 10/16/17 05:08 WBC 9.5 RBC 3.50 L Hgb 10.9 L Hct 33.3 L MCV 95.1 MCH 31.1 MCHC 32.7 RDW 13.3 RDW Differential 44.1 H Plt Count 178 MPV 11.7 Immature Gran % (Auto) 0.100 Neut % (Auto) 78.0 H Lymph % (Auto) 13.5 L [place] % (Auto) 7.8 Eos % (Auto) 0.5 Baso % (Auto) 0.1 Absolute Neuts (auto) 7.4 Absolute Lymphs (auto) 1.28 Total Counted Not Reportable Assessment/Plan Patient seen and examined independent. Agree with the above note by the physician delinquent tax collection assistant. 1. Acute diverticulitis with microperforation * Continue with Cipro and Flagyl * Clear diet * No imminent need for surgery at this time. * 2. Severe sepsis * Present on admission * Currently resolved at this time. Code Visit Inpatient E&M: 31622 Subs Hosp L2
[2017-10-16 14:00] VITALS: BP 136/74; PULSE 56; RESP 16; TEMP 36.6; O2SAT 95
[2017-10-16] MEDS: Ibuprofen 400 MG Tablet PO (15:35)
[2017-10-16 20:44] VITALS: BP 140/68; PULSE 67; RESP 18; TEMP 36.9; O2SAT 94
[2017-10-16] MEDS: traZODone 50 MG Tablet PO (21:04)
[2017-10-16] MEDS: LORazepam 0.5 MG Tablet PO (21:04)
[2017-10-16 21:05] VITALS: PULSE 64
[2017-10-16] MEDS: Metoprolol(XL)Succ 25 MG Tablet PO (21:05)
[2017-10-17] MEDS: Ondansetron 4 MG/2 ML Vial IV ×4 (03:48→21:01)
[2017-10-17] MEDS: 0.9% NaCl Peripheral Flush Adult/Peds IV ×2 (03:48→21:01)
[2017-10-17 03:57] VITALS: BP 128/79; PULSE 73; RESP 18; TEMP 37.1; O2SAT 94
[2017-10-17] MEDS: 0.9% Normal Saline 1,000 ML 150 ML IV ×2 (05:41→16:48)
[2017-10-17 06:25] LABS: Absolute Neutrophil Count 7.9 X10^3/uL (2.0-7.7); Basophil# 0.02 X10^3/uL; Basophil% 0.2 % (0-1); Eosinophil# 0.08 X10^3/uL; Eosinophils% 0.8 % (0-5); Hematocrit 34.2 % (37-47); Hemoglobin 11.4 g/dl (12.0-15.0); Lymphocyte % 10.1 % (19-41); Mean Corp Hgb Conc 33.3 g/gl (32-36); Mean Corpuscular Hgb 30.9 pg (27.0-32.0); Mean Corpuscular Volume 92.7 fL (81-99); Monocyte# 0.89 X10^3/uL; Neutrophil # 7.92 X10^3/uL (2.7-7.7); Neutrophil % 79.7 % (47-70); Platelet Count 203 K/mm3 (150-450); RBC Distribution Width CV 13.1 % (11.6-14.6); RBC Distribution Width SD 43.1 fl (35.1-43.9); Red Blood Count 3.69 M/mm3 (4.2-5.4); White Blood Count 9.9 K/mm3 (4.4-11.0)
[2017-10-17 06:28] LABS: POSITIVE COUNT NO; POSITIVE DIFFERENTIAL NO; POSITIVE MORPHOLOGY NO
--- NOTE | 2017-10-17 06:33 | CT_ITS ---
STUDY: CT ABDOMEN AND PELVIS WITHOUT CONTRAST REASON FOR EXAM: Female, 57 years old. DIVERTICULITIS FOLLOW-UP RADIATION DOSAGE (If Supplied By Facility): CTDIvol = ( 8.24 ) mGy, DLP = ( 434.41 ) mGycm TECHNIQUE: Transaxial images were obtained from the dome of the diaphragm to the symphysis pubis without oral contrast, and without intravenous contrast. Sagittal and coronal images were reconstructed. Individualized dose optimization techniques were used for this CT. COMPARISON: None. FINDINGS: Small bilateral pleural effusions. The visualized portions of the heart are within normal limits. Normal liver. Normal gallbladder and extrahepatic biliary system. Normal spleen. Normal pancreas. Normal bilateral adrenal glands. There is a cyst in the right kidney measures 6.5 cm. Normal left kidney. Normal visualized stomach. Normal small intestine. There is diverticulosis, with thickening of the descending and sigmoid colon wall, and pericolonic inflammation changes consistent with acute diverticulitis. There is moderate amount of free air in the abdomen consistent with a ruptured diverticulum. There is non-visualization of the appendix. Normal abdominal aorta. Normal inferior vena cava. Normal retroperitoneum. Normal urinary bladder. Normal abdominal wall. Normal osseous structures. CT/Abdomen/Pelvis without Cont IMPRESSION: Descending colon and sigmoid diverticulitis. Moderate amount of free air in the abdomen. Electronically Signed: Ronda Diego MD at 7:31 EST Tel , Service support ,
[2017-10-17 06:39] LABS: Anion Gap 9 (5-15); BUN 8 mg/dL (7-18); BUN/Creat Ratio 13.8 RATIO (10-20); Calcium,Total 8.1 mg/dL (8.5-10.1); Chloride 104 mmol/L (98-107); Creatinine, Serum 0.58 mg/dL (0.55-1.02); EST Glomerular Filtration Rate 113 mL/min (>60); Est Glom Filt Rate - Afr Amer 136 mL/min (>60); Estimated Creatinine Clearance 105.35 ml/min; Glucose 116 mg/dL (74-106); Potassium 3.5 mmol/L (3.5-5.1); Sodium Level 139 mmol/L (136-145)
[2017-10-17 08:05] VITALS: BP 128/68; PULSE 76; RESP 16; TEMP 37.8; O2SAT 93
[2017-10-17] MEDS: Ciprofloxacin 400 MG/200 ML BAG 200 MG IV ×2 (10:23→22:19)
--- NOTE | 2017-10-17 12:50 | PCM.PROGNOTE ---
<Ronnie Platt - Last Filed: 10/17/17 12:50> Patient Problems: Active and Suspected Problems Diverticulitis (Acute) Sepsis (Acute) Subjective: Pt reports improvement in abdominal pain since yesterday. She is now NPO. No respiratory complaints. No fever or chills. No nausea or vomiting. - Physical Exam General: Alert, Oriented x3, Cooperative HEENT: Atraumatic, PERRLA, EOMI, Normocephalic Neck: Supple, No JVD, Negative Carotid Bruits Lungs: Clear to auscultation, Normal air movement Cardiovascular: Regular rate, No murmurs Abdomen: Soft, Hypoactive Bowel Sounds, Tender - most notably LLQ Extremities: No edema, Capillary Refill Less than 3 Seconds Skin: No rashes, No breakdown Musculoskeletal: No Tenderness to Palpation of Joints or Extremities Neurological: Cranial nerves II-XII grossly intact Psych/Mental Status: Normal Affect, Appropriate Vital Signs Temp Pulse Resp BP Pulse Ox 100.0 F H 76 16 128/68 H 93 10/17/17 08:05 10/17/17 08:05 10/17/17 08:05 10/17/17 08:05 10/17/17 08:05 Oxygen Flow Rate 2 Oxygen Delivery Method Room Air Weight: 82.6 kg Body Mass Index (BMI) 27.6 Intake and Output for Last 24 Hours 10/15/17 10/16/17 10/17/17 23:59 23:59 23:59 Intake Total 3265 / 3265 3573 / 3573 3474 / 3474 Output Total 2049 / 2049 3450 / 3450 2650 / 2650 Balance 1215 / 1215 123 / 123 824 / 824 Laboratory Tests Past 24 Hrs 10/17/17 10/17/17 05:00 05:00 WBC 9.9 RBC 3.69 L Hgb 11.4 L Hct 34.2 L MCV 92.7 MCH 30.9 MCHC 33.3 RDW 13.1 RDW Differential 43.1 Plt Count 203 MPV 12.0 Immature Gran % (Auto) 0.200 Neut % (Auto) 79.7 H Lymph % (Auto) 10.[address] [place] % (Auto) 9.0 Eos % (Auto) 0.8 Baso % (Auto) 0.2 Absolute Neuts (auto) 7.9 H Absolute Lymphs (auto) 1.00 Total Counted Not Reportable Sodium 139 Potassium 3.5 Chloride 104 Carbon Dioxide 26.0 Anion Gap 9 BUN 8 Creatinine 0.58 Estim Creat Clear Calc 105.35 Est GFR (MDRD) Af Amer 136 Est GFR (MDRD) Non-Af 113 BUN/Creatinine Ratio 13.8 Glucose 116 H Calcium 8.1 L Assessment/Plan Active and Suspected Problems Diverticulitis (Acute) Sepsis (Acute) 1. Acute Recurrent diverticulitis with microperforation with severe sepsis - Pt appears more uncomfortable today with pain and tenderness continuing. Pt now NPO again with new CT findings as below. WBC resolved. No further fever. Continue cipro and flagyl. Dr. Montez is following. Repeat CT demonstrates descending colon and sigmoid diverticulitis and moderate amount of free air in the abdomen. 2. HTN - stable 3. Chronic back pain and DJD 4. Anxiety - home meds DVT ppx: SCDs This patient was seen by Ronnie Platt PA-C under the supervision of Doctor Dion. <Jose Ashley - Last Filed: 10/17/17 15:28> - Physical Exam General: Alert, Cooperative HEENT: Atraumatic, Normocephalic Neck: No Nodes, Thyroid Normal Size and Texture Lungs: Clear to auscultation, Normal air movement, No rhonchi, No wheeze Cardiovascular: Regular rate, Regular Rhythm, Normal S1, Normal S2, No murmurs Abdomen: Hypoactive Bowel Sounds, Distended, Tender Extremities: No edema, No Calf Tenderness Skin: No rashes, No breakdown Vital Signs Temp Pulse Resp BP Pulse Ox 37.5 C H 65 18 143/80 H 93 10/17/17 14:20 10/17/17 14:20 10/17/17 14:20 10/17/17 14:20 10/17/17 14:20 Oxygen Flow Rate 2 Oxygen Delivery Method Room Air Weight: 82.6 kg Body Mass Index (BMI) 27.6 Intake and Output for Last 24 Hours 10/15/17 10/16/17 10/17/17 23:59 23:59 23:59 Intake Total 3265 / 3265 3573 / 3573 3474 / 3474 Output Total 2049 / 2049 3450 / 3450 2650 / 2650 Balance 1215 / 1215 123 / 123 824 / 824 Laboratory Tests Past 24 Hrs 10/17/17 10/17/17 05:00 05:00 WBC 9.9 RBC 3.69 L Hgb 11.4 L Hct 34.2 L MCV 92.7 MCH 30.9 MCHC 33.3 RDW 13.1 RDW Differential 43.1 Plt Count 203 MPV 12.0 Immature Gran % (Auto) 0.200 Neut % (Auto) 79.7 H Lymph % (Auto) 10.[address] [place] % (Auto) 9.0 Eos % (Auto) 0.8 Baso % (Auto) 0.2 Absolute Neuts (auto) 7.9 H Absolute Lymphs (auto) 1.00 Total Counted Not Reportable Sodium 139 Potassium 3.5 Chloride 104 Carbon Dioxide 26.0 Anion Gap 9 BUN 8 Creatinine 0.58 Estim Creat Clear Calc 105.35 Est GFR (MDRD) Af Amer 136 Est GFR (MDRD) Non-Af 113 BUN/Creatinine Ratio 13.8 Glucose 116 H Calcium 8.1 L Assessment/Plan Patient seen and examined independently. Agree with the above note by the physician assistant auto center manager. 1. Acute diverticulitis Patient now has increased free air but also an abscess CAT scan done earlier today. I discussed earlier with Dr. Paniagua who requested we contact radiology see if they can do a percutaneous drain. Spoke with Dr. Suggs, who reviewed the films, and stated that he could not safely perform the procedure. I then again spoke with Dr. Paniagua who then was can be in contact with [facility]. I later heard back from Dr. Paniagua and had an accepting physician with a Dr. Kelly. Informed the patient of this and patient expressed understanding. Patient still has abdominal pain but not any worse than it was earlier today. Patient is currently n.p.o. She will be transferred to [facility] [place] once a bed is been made available. Greater than 35 minutes of which greater than 50% time was coordinate the patient's care in regards to her diverticulitis and speaking with the transplant clinic clinic as well as Dr. Paniagua. Code Visit Inpatient E&M: 58881 Subs Hosp L3
--- NOTE | 2017-10-17 12:55 | PN_ITS ---
<Ronnie Platt - Last Filed: 10/17/17 12:50> Patient Problems: Active and Suspected Problems Diverticulitis (Acute) Sepsis (Acute) Subjective: Pt reports improvement in abdominal pain since yesterday. She is now NPO. No respiratory complaints. No fever or chills. No nausea or vomiting. - Physical Exam General: Alert, Oriented x3, Cooperative HEENT: Atraumatic, PERRLA, EOMI, Normocephalic Neck: Supple, No JVD, Negative Carotid Bruits Lungs: Clear to auscultation, Normal air movement Cardiovascular: Regular rate, No murmurs Abdomen: Soft, Hypoactive Bowel Sounds, Tender - most notably LLQ Extremities: No edema, Capillary Refill Less than 3 Seconds Skin: No rashes, No breakdown Musculoskeletal: No Tenderness to Palpation of Joints or Extremities Neurological: Cranial nerves II-XII grossly intact Psych/Mental Status: Normal Affect, Appropriate Vital Signs Temp Pulse Resp BP Pulse Ox 100.0 F H 76 16 128/68 H 93 10/17/17 08:05 10/17/17 08:05 10/17/17 08:05 10/17/17 08:05 10/17/17 08:05 Oxygen Flow Rate 2 Oxygen Delivery Method Room Air Weight: 82.6 kg Body Mass Index (BMI) 27.6 Intake and Output for Last 24 Hours 10/15/17 10/16/17 10/17/17 23:59 23:59 23:59 Intake Total 3265 / 3265 3573 / 3573 3474 / 3474 Output Total 2049 / 2049 3450 / 3450 2650 / 2650 Balance 1215 / 1215 123 / 123 824 / 824 Laboratory Tests Past 24 Hrs 10/17/17 10/17/17 05:00 05:00 WBC 9.9 RBC 3.69 L Hgb 11.4 L Hct 34.2 L MCV 92.7 MCH 30.9 MCHC 33.3 RDW 13.1 RDW Differential 43.1 Plt Count 203 MPV 12.0 Immature Gran % (Auto) 0.200 Neut % (Auto) 79.7 H Lymph % (Auto) 10.1 L [place] % (Auto) 9.0 Eos % (Auto) 0.8 Baso % (Auto) 0.2 Absolute Neuts (auto) 7.9 H Absolute Lymphs (auto) 1.00 Total Counted Not Reportable Sodium 139 Potassium 3.5 Chloride 104 Carbon Dioxide 26.0 Anion Gap 9 BUN 8 Creatinine 0.58 Estim Creat Clear Calc 105.35 Est GFR (MDRD) Af Amer 136 Est GFR (MDRD) Non-Af 113 BUN/Creatinine Ratio 13.8 Glucose 116 H Calcium 8.1 L Assessment/Plan Active and Suspected Problems Diverticulitis (Acute) Sepsis (Acute) 1. Acute Recurrent diverticulitis with microperforation with severe sepsis - Pt appears more uncomfortable today with pain and tenderness continuing. Pt now NPO again with new CT findings as below. WBC resolved. No further fever. Continue cipro and flagyl. Dr. Montez is following. Repeat CT demonstrates descending colon and sigmoid diverticulitis and moderate amount of free air in the abdomen. 2. HTN - stable 3. Chronic back pain and DJD 4. Anxiety - home meds DVT ppx: SCDs This patient was seen by Ronnie Platt PA-C under the supervision of Doctor Dion. <Jose Ashley - Last Filed: 10/17/17 15:28> - Physical Exam General: Alert, Cooperative HEENT: Atraumatic, Normocephalic Neck: No Nodes, Thyroid Normal Size and Texture Lungs: Clear to auscultation, Normal air movement, No rhonchi, No wheeze Cardiovascular: Regular rate, Regular Rhythm, Normal S1, Normal S2, No murmurs Abdomen: Hypoactive Bowel Sounds, Distended, Tender Extremities: No edema, No Calf Tenderness Skin: No rashes, No breakdown Vital Signs Temp Pulse Resp BP Pulse Ox 37.5 C H 65 18 143/80 H 93 10/17/17 14:20 10/17/17 14:20 10/17/17 14:20 10/17/17 14:20 10/17/17 14:20 Oxygen Flow Rate 2 Oxygen Delivery Method Room Air Weight: 82.6 kg Body Mass Index (BMI) 27.6 Intake and Output for Last 24 Hours 10/15/17 10/16/17 10/17/17 23:59 23:59 23:59 Intake Total 3265 / 3265 3573 / 3573 3474 / 3474 Output Total 2049 / 2049 3450 / 3450 2650 / 2650 Balance 1215 / 1215 123 / 123 824 / 824 Laboratory Tests Past 24 Hrs 10/17/17 10/17/17 05:00 05:00 WBC 9.9 RBC 3.69 L Hgb 11.4 L Hct 34.2 L MCV 92.7 MCH 30.9 MCHC 33.3 RDW 13.1 RDW Differential 43.1 Plt Count 203 MPV 12.0 Immature Gran % (Auto) 0.200 Neut % (Auto) 79.7 H Lymph % (Auto) 10.1 L [place] % (Auto) 9.0 Eos % (Auto) 0.8 Baso % (Auto) 0.2 Absolute Neuts (auto) 7.9 H Absolute Lymphs (auto) 1.00 Total Counted Not Reportable Sodium 139 Potassium 3.5 Chloride 104 Carbon Dioxide 26.0 Anion Gap 9 BUN 8 Creatinine 0.58 Estim Creat Clear Calc 105.35 Est GFR (MDRD) Af Amer 136 Est GFR (MDRD) Non-Af 113 BUN/Creatinine Ratio 13.8 Glucose 116 H Calcium 8.1 L Assessment/Plan Patient seen and examined independently. Agree with the above note by the physician certified surgical first assistant. 1. Acute diverticulitis * Patient now has increased free air but also an abscess CAT scan done earlier today. * I discussed earlier with Dr. Paniagua who requested we contact radiology see if they can do a percutaneous drain. Spoke with Dr. Suggs, who reviewed the films, and stated that he could not safely perform the procedure. I then again spoke with Dr. Paniagua who then was can be in contact with [facility]. I later heard back from Dr. Paniagua and had an accepting physician with a Dr. Kelly. Informed the patient of this and patient expressed understanding. Patient still has abdominal pain but not any worse than it was earlier today. Patient is currently n.p.o. She will be transferred to [facility] once a bed is been made available. Greater than 35 minutes of which greater than 50% time was coordinate the patient's care in regards to her diverticulitis and speaking with the transplant clinic clinic as well as Dr. Paniagua. Code Visit Inpatient E&M: 74323 Subs Hosp L3
[2017-10-17 14:20] VITALS: BP 143/80; PULSE 65; RESP 18; TEMP 37.5; O2SAT 93
--- NOTE | 2017-10-17 15:54 | PCM.DC.SUM ---
<Ronnie Platt - Last Filed: 10/17/17 15:54> Discharge Date and Diagnosis - Problem List Patient Problems: Active and Suspected Problems Diverticulitis (Acute) Sepsis (Acute) Date of Admission: 10/14/17 Date of Discharge: 10/17/17 - Primary Discharge Diagnosis Active and Suspected Problems Acute sepsis 2/2 recurrent Diverticulitis with abscess and perforation HTN Chronic back pain/DJD Anxeity - Secondary Discharge Diagnosis Chronic Problems HTN (hypertension) (Chronic) Anxiety (Chronic) Hospital Course and Treatment Imaging Results: CT/Abdomen/Pelvis without Cont IMPRESSION: Diverticulosis of the descending and sigmoid colon associated with acute diverticulitis and microperforation but no evidence for peridiverticular abscess. Other findings as above RAD/Abdomen Single View IMPRESSION: Moderately dilated small bowel loops in the left mid abdomen. Follow-up is recommended. CT/Abdomen/Pelvis without Cont IMPRESSION: Descending colon and sigmoid diverticulitis. Moderate amount of free air in the abdomen. Consults: Melida - gen surgeon Operations: None Procedures: None Summary of Care Provided: Physical exam on day of discharge: See daily progress note The patient is a 57 year old F with a hx of diverticulitis several months prior who presented to the ER with acute abdominal pain in the right and left lower quadrant that began the day prior. She had a fever of 101 at home and on presentation had a white count of 19.5, and an elevated lactate. A CT of the abdomen revealed acute diverticulitis and microperforation and air present. She was admitted to the [facility] for acute sepsis 2/[address] Montez, general surgeon, was consulted. She was placed on NPO diet and IV fluids. Initially she seemed to be improving with reduction in pain and leukocytosis, and her diet was advanced to clear liquids. Her LLQ pain worsened, fever returned, and a repeat CT of the abdomen showed more free air. She was felt to have an abscess that would require drainage and radiology here did not feel confident that they could safely perform the procedure. Arrangement were made for her to be transferred to the [facility], accepted by Dr. Kelly. The patient remained in stable condition and was transferred when the bed was available. Patient was seen by Ronnie Platt PA-C under the supervision of Dr. Ashley. [] Discharge Diet: - - NPO at time of transfer Discharge Activity: - - as directed by accepting facility Home Medications: Medications to take at Discharge Doxylamine Succinate [Unisom] 25 mg PO QHS 06/07/15 Lorazepam [Ativan] 0.5 mg PO DAILY PRN PRN 06/07/15 Cholecalciferol (VIT D3) [Vitamin D3] 5,000 unit PO DAILY 03/24/16 Magnesium 300 mg PO DAILY 03/24/16 Trazodone HCl 50 mg PO QHS 03/24/16 Vitamin B Complex 1 each PO DAILY 03/24/16 Metoprolol Succinate 25 mg PO DAILY 04/24/16 Multivitamins,Therapeutic [Multivitamin] 1 tab PO DAILY 06/17/17 Primary Care Physician: Thor Cho III, MD [Primary Care Provider] - Please follow up with your Primary Care Physician in: 2 weeks Please Follow Up With: Carmine Montez MD When: 2 weeks Disposition: [facility] Minutes spent on discharge:: 35 Patient Condition:: Stable Meaningful Use Info Meaningful Use Diagnoses (Choose all that apply): None applicable <Jose Ashley - Last Filed: 10/17/17 17:41> Discharge Date and Diagnosis - Primary Discharge Diagnosis Active and Suspected Problems Diverticulitis (Acute) Sepsis (Acute) - Secondary Discharge Diagnosis Chronic Problems HTN (hypertension) (Chronic) Anxiety (Chronic) Hospital Course and Treatment Operations: None Procedures: None Summary of Care Provided: Pt seen and examined independently. I agree with the above note by the PA This is a 57yo WF presents with abdominal pain. CT showed acute diverticulitis w microperforation. Conservative mgmt was initiated and followed by general surgery. Overall, pt clinically improved, however, CT today showed moderate free air and an abscess. Dr. Montez notified and recommended IR for perc drain. I d/w Dr. Suggs, who said he would not be able to safely perform the procedure. Dr. Montez then spoke with Dr. Kelly at [facility] and stated they would accept the patient under their service and attempt a perc drain. Still awaiting on a bed at the time of this note. No urgent surgical needs at this time. [] Discharge Diet: - Discharge Activity: - Disposition: [facility] Minutes spent on discharge:: 35 Patient Condition:: Stable Meaningful Use Info Meaningful Use Diagnoses (Choose all that apply): None applicable Code Visit Inpatient E&M: 01207 Disch Hosp
--- NOTE | 2017-10-17 16:04 | DS.PCM_ITS ---
<Ronnie Platt - Last Filed: 10/17/17 15:54> Discharge Date and Diagnosis - Problem List Patient Problems: Active and Suspected Problems Diverticulitis (Acute) Sepsis (Acute) Date of Admission: 10/14/17 Date of Discharge: 10/17/17 - Primary Discharge Diagnosis Active and Suspected Problems Acute sepsis 2/2 recurrent Diverticulitis with abscess and perforation HTN Chronic back pain/DJD Anxeity - Secondary Discharge Diagnosis Chronic Problems HTN (hypertension) (Chronic) Anxiety (Chronic) Hospital Course and Treatment Imaging Results: CT/Abdomen/Pelvis without Cont IMPRESSION: Diverticulosis of the descending and sigmoid colon associated with acute diverticulitis and microperforation but no evidence for peridiverticular abscess. Other findings as above RAD/Abdomen Single View IMPRESSION: Moderately dilated small bowel loops in the left mid abdomen. Follow-up is recommended. CT/Abdomen/Pelvis without Cont IMPRESSION: Descending colon and sigmoid diverticulitis. Moderate amount of free air in the abdomen. Consults: Melida - gen surgeon Operations: None Procedures: None Summary of Care Provided: Physical exam on day of discharge: See daily progress note The patient is a 57 year old F with a hx of diverticulitis several months prior who presented to the ER with acute abdominal pain in the right and left lower quadrant that began the day prior. She had a fever of 101 at home and on presentation had a white count of 19.5, and an elevated lactate. A CT of the abdomen revealed acute diverticulitis and microperforation and air present. She was admitted to the [facility] medical surgical floor [facility] for acute sepsis 2/[address] Montez, general surgeon, was consulted. She was placed on NPO diet and IV fluids. Initially she seemed to be improving with reduction in pain and leukocytosis, and her diet was advanced to clear liquids. Her LLQ pain worsened, fever returned, and a repeat CT of the abdomen showed more free air. She was felt to have an abscess that would require drainage and radiology here did not feel confident that they could safely perform the procedure. Arrangement were made for her to be transferred to the [facility], accepted by Dr. Kelly. The patient remained in stable condition and was transferred when the bed was available. Patient was seen by Ronnie Platt PA-C under the supervision of Dr. Ashley. [] Discharge Diet: - - NPO at time of transfer Discharge Activity: - - as directed by accepting facility Home Medications: Medications to take at Discharge Doxylamine Succinate [Unisom] 25 mg PO QHS 06/07/15 Lorazepam [Ativan] 0.5 mg PO DAILY PRN PRN 06/07/15 Cholecalciferol (VIT D3) [Vitamin D3] 5,000 unit PO DAILY 03/24/16 Magnesium 300 mg PO DAILY 03/24/16 Trazodone HCl 50 mg PO QHS 03/24/16 Vitamin B Complex 1 each PO DAILY 03/24/16 Metoprolol Succinate 25 mg PO DAILY 04/24/16 Multivitamins,Therapeutic [Multivitamin] 1 tab PO DAILY 06/17/17 Primary Care Physician: Thor Cho III, MD [Primary Care Provider] - Please follow up with your Primary Care Physician in: 2 weeks Please Follow Up With: Carmine Montez MD When: 2 weeks Disposition: [facility] Minutes spent on discharge:: 35 Patient Condition:: Stable Meaningful Use Info Meaningful Use Diagnoses (Choose all that apply): None applicable <Jose Ashley - Last Filed: 10/17/17 17:41> Discharge Date and Diagnosis - Primary Discharge Diagnosis Active and Suspected Problems Diverticulitis (Acute) Sepsis (Acute) - Secondary Discharge Diagnosis Chronic Problems HTN (hypertension) (Chronic) Anxiety (Chronic) Hospital Course and Treatment Operations: None Procedures: None Summary of Care Provided: Pt seen and examined independently. I agree with the above note by the PA This is a 57yo WF presents with abdominal pain. CT showed acute diverticulitis w microperforation. Conservative mgmt was initiated and followed by general surgery. Overall, pt clinically improved, however, CT today showed moderate free air and an abscess. Dr. Montez notified and recommended IR for perc drain. I d/w Dr. Suggs, who said he would not be able to safely perform the procedure. Dr. Montez then spoke with Dr. Kelly at [facility] and stated they would accept the patient under their service and attempt a perc drain. Still awaiting on a bed at the time of this note. No urgent surgical needs at this time. [] Discharge Diet: - Discharge Activity: - Disposition: [facility] Minutes spent on discharge:: 35 Patient Condition:: Stable Meaningful Use Info Meaningful Use Diagnoses (Choose all that apply): None applicable Code Visit Inpatient E&M: 61261 Disch Hosp
--- NOTE | 2017-10-17 18:45 | PCM.PN.SRG ---
Patient Problems: Active and Suspected Problems Diverticulitis (Acute) Sepsis (Acute) Subjective: nausea and vomiting, worsening distention, continued left lower quadrant pain - Physical Exam General: Alert, Oriented x3 Lungs: Clear to auscultation, Normal air movement Cardiovascular: Regular rate, Regular Rhythm Abdomen: Bowel Sounds Present, Soft, Tender - left lower quadrant Vital Signs Temp Pulse Resp BP Pulse Ox 99.5 F H 65 18 143/80 H 93 10/17/17 14:20 10/17/17 14:20 10/17/17 14:20 10/17/17 14:20 10/17/17 14:20 Oxygen Flow Rate 2 Oxygen Delivery Method Room Air Weight: 82.6 kg Body Mass Index (BMI) 27.6 Intake and Output for Last 24 Hours 10/15/17 10/16/17 10/17/17 23:59 23:59 23:59 Intake Total 3265 / 3265 3573 / 3573 3474 / 3474 Output Total 2049 / 2049 3450 / 3450 2650 / 2650 Balance 1215 / 1215 123 / 123 824 / 824 Laboratory Tests Past 24 Hrs 10/17/17 10/17/17 05:00 05:00 WBC 9.9 RBC 3.69 L Hgb 11.4 L Hct 34.2 L MCV 92.7 MCH 30.9 MCHC 33.3 RDW 13.1 RDW Differential 43.1 Plt Count 203 MPV 12.0 Immature Gran % (Auto) 0.200 Neut % (Auto) 79.7 H Lymph % (Auto) 10.1 L [place] % (Auto) 9.0 Eos % (Auto) 0.8 Baso % (Auto) 0.2 Absolute Neuts (auto) 7.9 H Absolute Lymphs (auto) 1.00 Total Counted Not Reportable Sodium 139 Potassium 3.5 Chloride 104 Carbon Dioxide 26.0 Anion Gap 9 BUN 8 Creatinine 0.58 Estim Creat Clear Calc 105.35 Est GFR (MDRD) Af Amer 136 Est GFR (MDRD) Non-Af 113 BUN/Creatinine Ratio 13.8 Glucose 116 H Calcium 8.1 L Assessment/Plan Active and Suspected Problems Diverticulitis (Acute) Sepsis (Acute) diverticulitis with microperforation- now worsening clinical picture WBC is still within normal range and patient was afebrile overnight. I obtained repeat CT scan which demonstrated some more air, although not a large quantity of free air but increased inflammation around the sigmoid colon and a collection consistent with an abscess. Following the images with Dr. Suggs. He felt the patient could not be easily accessed percutaneously locally. later on today. The patient has had a low-grade fever but actually has passed some flatus. Overall, she feels about the same. I spoke with colorectal surgical services at [facility]. They're willing to accept the patient in transfer in the hopes that percutaneous intervention can be performed and that urgent surgery, likely requiring proximal diversion could be avoided. She has been accepted by the colorectal service. We're currently awaiting a bed. For now, we will continue both the ciprofloxacin and Flagyl .
[2017-10-17] MEDS: LORazepam 0.5 MG Tablet PO (19:58)
[2017-10-17 20:20] VITALS: BP 145/79; PULSE 80; RESP 18; TEMP 37.6; O2SAT 92
--- NOTE | 2017-10-17 22:13 | NURSING ---
Called [facility] to take the pt to [facility] [place] H51 bed 18.
--- NOTE | 2017-10-17 23:53 | NURSING ---
REPORT CALLED TO BENJI AT [facility]. [facility] PRESENT TO TRANSPORT PT. SPOUSE LEAVING W/PT. PT AND SPOUSE STATE ALL QUESTIONS ARE ANSWERED AT THIS TIME. APPRECIATIVE OF STAFF AND CARE PROVIDED DURING STAY.
== END 2017-10-18 | disposition short-term general hospital (02) | DRG 416 ==
LOC: ED 18:08 → MS3 18:20
PROVIDERS: Physician Assistant; Surgery; Admitting Provider Internal Medicine; Emergency Provider Emergency Medicine; Family Provider Family Medicine; PCP Family Medicine
DX: A41.9 Sepsis, unspecified organism (principal); K57.20 Diverticulitis of large intestine with perforation and abscess without bleeding; I10 Essential (primary) hypertension; F41.9 Anxiety disorder, unspecified; M54.9 Dorsalgia, unspecified; G89.29 Other chronic pain; M19.90 Unspecified osteoarthritis, unspecified site; R65.20 Severe sepsis without septic shock; Z79.899 Other long term (current) drug therapy
CPT/HCPCS: 36415; 74018; 74176; 80048; 80053; 81001; 83605; 85025; 99282; J7030; A4216; J0744; J2405

== ENCOUNTER → 2018-03-08 13:21 | Outpatient (CLI) | payer MEDICAID, SELFPAY ==
[2018-03-08 13:39] LABS: Absolute Neutrophil Count 3.6 X10^3/uL (2.0-7.7); Basophil# 0.02 X10^3/uL; Basophil% 0.3 % (0-1); Eosinophil# 0.07 X10^3/uL; Eosinophils% 1.1 % (0-5); Hematocrit 39.6 % (37-47); Hemoglobin 13.1 g/dl (12.0-15.0); Lymphocyte % 37.3 % (19-41); Mean Corp Hgb Conc 33.1 g/gl (32-36); Mean Corpuscular Hgb 29.4 pg (27.0-32.0); Mean Platelet Vol. 11.2 fl (6.2-12.0); Monocyte# 0.39 X10^3/uL; Monocyte% 6.1 % (0-10); Neutrophil # 3.55 X10^3/uL (2.7-7.7); Platelet Count 268 K/mm3 (150-450); RBC Distribution Width CV 14.1 % (11.6-14.6); RBC Distribution Width SD 46.2 fl (35.1-43.9); Red Blood Count 4.45 M/mm3 (4.2-5.4); White Blood Count 6.4 K/mm3 (4.4-11.0)
[2018-03-08 13:42] LABS: POSITIVE COUNT NO; POSITIVE DIFFERENTIAL NO; POSITIVE MORPHOLOGY NO
[2018-03-08 14:10] LABS: AST(SGOT) 18 U/L (15-37); Alanine Aminotransfer ALT/SGPT 22 U/L (13-56)
== END ==
PROVIDERS: Family Provider Family Medicine; PCP Family Medicine; Visit Provider Podiatrist
DX: B35.1 Tinea unguium (principal)
CPT/HCPCS: 36415; 84450; 84460; 85025

== ENCOUNTER → 2018-04-04 16:29 | Outpatient (CLI) | payer MEDICAID, SELFPAY ==
[2018-04-04 17:13] LABS: Hemoglobin 12.4 g/dl (12.0-15.0); Mean Corp Hgb Conc 33.5 g/gl (32-36); Mean Corpuscular Hgb 30.2 pg (27.0-32.0); Mean Corpuscular Volume 90.2 fL (81-99); Mean Platelet Vol. 11.8 fl (6.2-12.0); Platelet Count 200 K/mm3 (150-450); RBC Distribution Width CV 14.2 % (11.6-14.6); RBC Distribution Width SD 45.8 fl (35.1-43.9); White Blood Count 5.8 K/mm3 (4.4-11.0)
[2018-04-04 17:30] LABS: Scan Indicated on CBC? Y/N NO
[2018-04-04 17:36] LABS: AST(SGOT) 35 U/L (15-37); Alanine Aminotransfer ALT/SGPT 29 U/L (13-56)
== END ==
PROVIDERS: Family Provider Family Medicine; PCP Family Medicine; Visit Provider Podiatrist
DX: B35.1 Tinea unguium (principal)
CPT/HCPCS: 36415; 84450; 84460; 85027

== ENCOUNTER → 2018-05-13 16:45 | Outpatient (CLI) | payer MEDICAID, SELFPAY ==
--- NOTE | 2018-05-13 16:58 | MRI_ITS ---
STUDY: MRI LEFT ANKLE WITHOUT CONTRAST REASON FOR EXAM: Plantar heel pain for 4 months. TECHNIQUE: Standardized fat and water weighted pulse sequences were obtained in all 3 orthogonal planes. COMPARISON: None. FINDINGS: There is mild edema in the medial and lateral subcutis adipose space. Normal posterior tibialis tendon. Normal flexor digitorum longus tendon. Normal flexor hallucis longus tendon. There is fluid in the submalleolar peroneal tendon sheath (inversion recovery sagittal image 18) and a small longitudinal split of the submalleolar peroneus brevis tendon (T1 axial images 15, 16). The peroneus longus tendon is morphologically normal. Normal tibialis anterior tendon. Normal extensor hallucis longus tendon. Normal extensor digitorum longus tendons. Normal Achilles tendon and teno-osseous insertion. There is plantar fasciitis involving the central cord (inversion recovery sagittal images 10, 11; T2 coronal images 9, 10). There is reactive bone edema in the plantar aspect of the posterior tuberosity of the calcaneus at the plantar fascial origin (inversion recovery sagittal images 12, 13). Normal intrinsic muscles of the rearfoot. Normal distal tibiofibular syndesmotic ligamentous complex. There is thickening of the anterior talofibular ligament (T2 axial image 14) suggestive of scarring. Normal calcaneofibular and posterior talofibular ligaments. Normal subtalar ligaments and sinus tarsi. Normal deltoid ligamentous complexes. Normal plantar calcaneonavicular (spring) ligament. Normal tibiotalar articulation. Normal talar dome. Normal subtalar articulations. Normal talonavicular articulation. Normal calcaneocuboid articulation. Normal navicular-cuneiform articulations. There is cystic change of the lateral malleolus (T2 coronal image 11). MRI/Lower Ext Joint Only (Routine) IMPRESSION: Plantar fasciitis with reactive bone edema in the posterior tuberosity of the calcaneus at the origin of the plantar fascia. Small longitudinal split of the peroneus brevis tendon and peroneal tenosynovitis. Thickening of the anterior talofibular ligament suggestive of scarring. No demonstrated stress fracture. Electronically Signed: Fili Duran MD at 10:24 EDT Tel , Service support ,
== END ==
PROVIDERS: Family Provider Family Medicine; PCP Family Medicine; Visit Provider Podiatrist
DX: M72.2 Plantar fascial fibromatosis (principal); M84.38XD Stress fracture, other site, subsequent encounter for fracture with routine healing; M79.672 Pain in left foot
CPT/HCPCS: 73721

== ENCOUNTER → 2018-06-24 07:41 | Outpatient (CLI) | payer OTHER, SELFPAY ==
[2018-06-24 07:56] LABS: CREATININE FINGERSTICK 1.1 mg/dL (0.55-1.02)
--- NOTE | 2018-06-24 08:00 | CT_ITS ---
STUDY: CTA CHEST REASON FOR EXAM: Female, 58 years old. Follow-up of thoracic aorta aneurysm. RADIATION DOSAGE (If Supplied By Facility): CTDIvol = ( 8.5 ) mGy, DLP = ( 294.76 ) mGycm TECHNIQUE: The examination was performed with the intravenous administration of 75 ml of Isovue 370 contrast material. Post-processing of the angiographic images was performed, with multiplanar reformation and 3D reconstruction. Individualized dose optimization techniques were used for this CT. COMPARISON: CT of the chest dated June 11, 2017. FINDINGS: There is limited enhancement of the main pulmonary artery and right and left pulmonary arteries. There is limited enhancement of the bilateral peripheral pulmonary arteries. There is no demonstrated pulmonary embolism. There is aneurysmal dilatation of the ascending thoracic aorta with maximum transverse dimension of approximately 4.4 cm. On the previous CT maximum transverse dimension of approximately 4.5 cm. There is no demonstrated aortic dissection. Normal heart and pericardium. Normal mediastinum. Normal hilar regions. Normal visualized trachea and bronchi. The lungs are well expanded. There is a small subpleural nodule in the right middle lobe best seen on axial image #53 measuring approximately 5.6 mm. This is unchanged since the previous CT. Normal pleura. Normal chest wall structures. There are degenerative changes of thoracic spine. There is a large right-sided renal cyst measuring approximately 6.1 cm in greatest dimension. This has attenuation of approximately 9.8 Hounsfield units suggesting a simple cyst. CT/CTA Chest W/WO Contrast IMPRESSION: 1. No CTA demonstrated pulmonary embolism or arterial dissection. 2. Unchanged appearance to ascending thoracic aortic aneurysm. 3. Unchanged appearance to right middle lobe subpleural nodule. Electronically Signed: Elizabeth Alonso MD at 9:31 EDT , Service support ,
== END ==
PROVIDERS: Family Provider Family Medicine; PCP Family Medicine; Referring Provider Physician Assistant Medical; Visit Provider Physician Assistant Medical
DX: I71.2 Thoracic aortic aneurysm, without rupture (principal)
CPT/HCPCS: 71275; Q9967

== ENCOUNTER 2018-06-25 11:25 | Emergency (ER) | payer OTHER, SELFPAY ==
[2018-06-25 11:27] VITALS: BP 119/70; PULSE 81; RESP 18; TEMP 36.6; O2SAT 99; BMI 24.7
--- NOTE | 2018-06-25 12:17 | VDLE_ITS ---
Reason For Study: LEG PAIN RIGHT LEFT GSV is normal. CFV is compressible, spontaneous, phasic, CFV is compressible, spontaneous, phasic, competent, and demonstrates normal competent and demonstrates normal augmentation. augmentation. FV is compressible, spontaneous, phasic, competent and demonstrates normal augmentation. POP V is compressible, spontaneous, phasic, competent and demonstrates normal augmentation. T/P Trunk is compressible. PTV is compressible. RT PerV is compressible. Procedure Exam performed portable in ED. A preliminary report was called and/or faxed to Dr. Irving. Interpretation Summary There is no evidence of right lower extremity deep vein thrombosis. Right greater saphenous vein appears patent and compressible segmentally. Ordering Physician: Tony Irving Referring Physician: AGUEDA Cho M.D. Performed By: Wandy Dejesus RVT
--- NOTE | 2018-06-25 13:01 | ED.DCSUM_ITS ---
- ER Visit Summary Date of Service: 06/25/18 Chief Complaint: Right leg pain History of Present Illness: The patient is a 58 F who states that early this morning around 050 0 hours she developed a pain in her right buttock radiating to the posterior thigh and then anterior to her rawls. She states that it was in the area of her buttock where she had had a drain placed following a colostomy reversal. She states that she had the surgery 20 May and had complications of abscess and was taken back to the OR a few days later. She was discharged home on June 03. Patient states she been doing okay since then. She notes that she was seen here at the hospital yesterday for routine surveillance of a thoracic aneurysm. Is not no results of that. No paresthesias of the leg. She states the pain is better now than when it was at home. Does note some discomfort in the right lower lumbar region. The area the patient describes having that pain this morning is in the L4 nerve root distribution. Physical Examination: Afebrile vital signs stable Gen: Well-nourished well-developed Head: Normocephalic atraumatic Eyes: Perrl EOMI ENT: TMs clear no rhinorrhea moist mucous membranes Neck: Supple no lymphadenopathy no JVD nontender CVS: Regular rate rhythm no murmurs normal S1-S2 Respiratory: No distress clear to auscultation bilaterally chest nontender Abdomen: Soft nontender nondistended normal bowel sounds no masses Back: Mild tenderness to palpation in the right lower lumbar paraspinal musculature. Extremity: Nontender no edema Skin: Normal color no rash Neuro: alert orientated ?3 CN II-XII intact normal strength sensation reflexes gait cerebellar Psych: Normal affect normal mood Test Results: Duplex ultrasound was negative Emergency Department Course and Treatment: Patient will be discharged home with supportive care. Instructions to follow-up with her doctor. Impression: 1. Lumbar radiculopathy This note was generated with [employer] dictation software. It may contain incorrect words, spelling, and punctuation that were not noted in review of the chart prior to signing ED Disposition - Plan for ED Patient: Disposition: Home or Assisted Living Chief Complaint: Lower Extremity Injury Instructions: ED Sciatica Referrals: Thor Cho III, MD [Primary Care Provider] - 1 Week
== END 2018-06-25 13:12 | disposition home or self-care (01) ==
PROVIDERS: Emergency Provider Emergency Medicine; Family Provider Family Medicine; PCP Family Medicine
DX: M54.16 Radiculopathy, lumbar region (principal); I10 Essential (primary) hypertension; Z79.899 Other long term (current) drug therapy
CPT/HCPCS: 93971; 99282

== ENCOUNTER 2018-09-27 16:22 | Emergency (ER) | payer OTHER, SELFPAY ==
[2018-09-27 16:25] VITALS: BP 146/76; PULSE 58; RESP 17; TEMP 36.6; O2SAT 100; BMI 27.5
--- NOTE | 2018-09-27 16:32 | EKG12_ITS ---
Test Reason : CHEST PAIN Blood Pressure : / mmHG Vent. Rate : 058 BPM Atrial Rate : 058 BPM P-R Int : 152 ms QRS Dur : 084 ms QT Int : 426 ms P-R-T Axes : 046 014 049 degrees QTc Int : 418 ms Sinus bradycardia Otherwise normal ECG Confirmed by KIARA BENDER, JAM ([id number]), editor greeting card ANTHONY GARCIA ([id number]) on 10/01/2018 3:30:45 PM Referred By: JOCELYNE Confirmed By:JAM CRAIG MD
[2018-09-27] MEDS: Aspirin 81 MG TAB.CHEW 324 MG PO (16:44)
--- NOTE | 2018-09-27 16:44 | ED.DCSUM_ITS ---
- ER Visit Summary Date of Service: 09/27/18 Chief Complaint: Chest pain History of Present Illness: The patient is a 58 F presenting for evaluation secondary to chest pain and hypertension. Patient has an underlying history of hypertension hyperlipidemia and a thoracic aortic aneurysm. Patient states that she has been having high blood pressures for the last week, and has had her metoprolol increased by double recently by her primary care physician. Patient reports that she has been getting intermittent chest pain and intermittent headaches throughout the course of the week with blood pressures ranging in the 140s and 150s. Patient reports that today at about 11 AM she had a onset of continuous chest aching that was associated with some mild shortness of breath. No exacerbating relieving factors associated with this. No radiation to arms legs or back. Patient states that she did have a stress test back in 2016 that was normal. Review of systems otherwise negative. Physical Examination: Vital signs are within normal limits, patient is afebrile. General: Patient is well-nourished well-developed and in no acute distress. Head: Normocephalic, atraumatic Eyes: Pupils equal round and reactive bilaterally, extra occular motion intact bialterally ENT: Moist mucous membranes Neck: Supple, no lymphadenopathy, no JVD, no meningismus CVS: Heart regular rate and rhythm, 2 out of 6 systolic murmur, rubs or gallops, radial pulses 2+ bilaterally, PT pulses 2+ and symmetric Resp: Respirations nondistressed, lung sounds clear bilaterally Abdomen: Soft, nontender, nondistended, no palpable masses, normal bowel sounds Back: Nontender Extremities: Nontender, atraumatic, active full range of motion, no peripheral edema Skin: warm, no rashes, no petechia Neuro: Alert and oriented x 4, CN 2-12 intact, no lateralizing neurological defecits Psyc: Normal affect Test Results: EKG demonstrates sinus bradycardia with a rate of [address] segments normal T waves normal intervals no evidence of acute ischemia or arrhythmia. CBC chemistry and troponin are negative. PA and lateral chest x- ray shows no evidence of abnormal widening of the thoracic aorta, no evidence of acute cardiopulmonary process. Emergency Department Course and Treatment: Patient presented for evaluation secondary to chest pain. Patient's blood pressure in the emergency department is 146/76 which I do not believe to be elevated to the point of causing a hypertensive emergency. Patient's workup is negative as noted above. Patient's heart score is 2. I had a discussion with the patient about the risk of major cardiac event involved with a negative workup and a heart score of 2. Patient opted for discharge rather than delta troponin. She will follow-up with primary care. Disposition: Discharge Impression: 1. Chest pain This note was generated with [employer] dictation software. It may contain incorrect words, spelling, and punctuation that were not noted in review of the chart prior to signing ED Disposition - Plan for ED Patient: Disposition: Home or Assisted Living Chief Complaint: Chest Pain Diagnosis: Chest pain Instructions: ED Chest Pain NonCardiac Referrals: Thor Cho III, MD [Primary Care Provider] - 1 Week
--- NOTE | 2018-09-27 16:45 | RAD_ITS ---
STUDY: X-RAY CHEST REASON FOR EXAM: Female, 58 years old. Chest pain and pressure 3 days, hypertension TECHNIQUE: PA and lateral chest COMPARISON: 08/11/2016 FINDINGS: The lungs are clear and expanded. Normal cardiomediastinal silhouette, kalyn and pleural margins. No acute osseous or upper abdominal process. RAD/Chest PA and Lateral IMPRESSION: No acute cardiopulmonary process. Electronically Signed: Carmine Allen MD at 17:04 EST Tel , Service support ,
[2018-09-27 16:56] LABS: Absolute Lymphocyte Count 2.03 X10^3/ul (0.83-4.51); Absolute Neutrophil Count 4.1 X10^3/uL (2.0-7.7); Basophil# 0.02 X10^3/uL; Basophil% 0.3 % (0-1); Eosinophil# 0.14 X10^3/uL; Hematocrit 36.9 % (37-47); Hemoglobin 11.5 g/dl (12.0-15.0); Lymphocyte # 2.03 X10^3/ul (4.0); Lymphocyte % 29.6 % (19-41); Mean Corp Hgb Conc 31.2 g/gl (32-36); Mean Corpuscular Hgb 25.8 pg (27.0-32.0); Mean Corpuscular Volume 82.7 fL (81-99); Monocyte# 0.56 X10^3/uL; Monocyte% 8.2 % (0-10); Neutrophil % 59.8 % (47-70); Platelet Count 224 K/mm3 (150-450); RBC Distribution Width CV 16.9 % (11.6-14.6); RBC Distribution Width SD 49.1 fl (35.1-43.9); Red Blood Count 4.46 M/mm3 (4.2-5.4); White Blood Count 6.9 K/mm3 (4.4-11.0)
[2018-09-27 17:05] LABS: Anion Gap 8 (5-15); BUN 20 mg/dL (7-18); BUN/Creat Ratio 17.9 RATIO (10-20); Calcium,Total 9.1 mg/dL (8.5-10.1); Chloride 105 mmol/L (98-107); Creatinine, Serum 1.12 mg/dL (0.55-1.02); EST Glomerular Filtration Rate 53 mL/min (>60); Est Glom Filt Rate - Afr Amer 64 mL/min (>60); Glucose 111 mg/dL (74-106); Potassium 4.2 mmol/L (3.5-5.1); Sodium Level 140 mmol/L (136-145)
[2018-09-27 17:08] LABS: POSITIVE COUNT NO; POSITIVE DIFFERENTIAL NO; POSITIVE MORPHOLOGY NO
[2018-09-27 17:41] VITALS: BP 147/86; PULSE 56; RESP 17; O2SAT 98
== END 2018-09-27 17:43 | disposition home or self-care (01) ==
PROVIDERS: Emergency Provider Emergency Medicine; Family Provider Family Medicine; PCP Family Medicine
DX: R07.9 Chest pain, unspecified (principal); I10 Essential (primary) hypertension
CPT/HCPCS: 71046; 80048; 84484; 85025; 93005; 99284; A4216

== ENCOUNTER → 2019-02-19 20:05 | Outpatient (CLI) | payer OTHER, SELFPAY ==
[2019-01-29 11:17] VITALS: BMI 29.8
== END ==
PROVIDERS: Family Provider Family Medicine; PCP Family Medicine; Referring Provider Psychiatry & Neurology Psychiatry; Visit Provider Psychiatry & Neurology Psychiatry
DX: G47.33 Obstructive sleep apnea (adult) (pediatric) (principal); F32.9 Major depressive disorder, single episode, unspecified
CPT/HCPCS: 95811

== ENCOUNTER → 2019-02-25 06:53 | Outpatient (CLI) | payer OTHER, SELFPAY ==
[2019-01-29 11:17] VITALS: BMI 29.8
--- NOTE | 2019-02-25 06:54 | ECHOCS_ITS ---
Reason For Study: DYSPNEA/SOB Procedure This was a 2D Doppler, Color Flow transthoracic echocardiogram. The study was technically difficult. Contrast injection was performed. Exam performed in department. Left Ventricle Normal LV size. Left ventricular systolic function is normal. The estimated ejection fraction is 55 %. No evidence for diastolic dysfunction. No regional wall motion abnormalities noted. Right Ventricle Normal RV size. Normal systolic function. Atria Normal left atrium. Normal right atrium. No doppler evidence for ASD. Mitral Valve There is no mitral annular calcification. Normal mitral valve. Mild (1+) mitral valve insufficiency. Tricuspid Valve Normal tricuspid valve. Mild to moderate (1-2+) tricuspid valve insufficiency. Right ventricular systolic pressure estimated to be 24 mmHg. Aortic Valve Trisinus/trileaflet aortic valve. Normal aortic valve. Mild-Moderate (1-2+) aortic valve insufficiency. Pulmonic Valve The pulmonic valve is not well visualized. Great Vessels Mildly dilated ascending aorta. Pericardium/Pleural No pericardial effusion. Medication Diluted definity 4ml given slow IV push to enhance endocardial definition. MMode/2D Measurements & Calculations LVIDd: 5.0 cm IVSd: 0.77 cm Ao root diam: 4.0 cm LVIDs: 3.4 cm LVPWd: 0.76 cm RVDd: 3.5 cm FS: 32.0 % LAV(MOD-bp): 41.6 ml LVAd ap4: 35.7 cm2 SV(MOD-sp4): 68.5 ml LAV(MOD-bp) Indexed: 21.3 ml/m2 EDV(MOD-sp4): 125.9 ml LAV(MOD-sp2): 44.7 ml EDV(sp4-el): 131.9 ml LAV(MOD-sp4): 36.7 ml LVAs ap4: 22.3 cm2 ESV(MOD-sp4): 57.3 ml ESV(sp4-el): 59.4 ml EF(MOD-sp4): 54.5 % EF(sp4-el): 55.0 % SV(sp4-el): 72.5 ml LA A4 area: 14.9 cm2 LA dimension(2D): 3.6 cm RA A4 area: 15.5 cm2 Time Measurements MV dec time: 0.28 sec Doppler Measurements & Calculations MV E max cash: 51.3 cm/sec Lat Peak E' Cash: 7.7 cm/sec Med Peak E' Cash: 5.9 cm/sec MV A max cash: 75.1 cm/sec E/E' lat: 6.7 E/E' med: 8.7 MV E/A: 0.68 Ao V2 max: 133.2 cm/sec AI max cash: 459.0 cm/sec LV V1 max: 100.5 cm/sec Ao max P.1 mmHg AI max P.4 mmHg LV V1 max P.0 mmHg AI dec slope: 212.7 cm/sec2 AI P1/2t: 632.1 msec PA V2 max: 81.3 cm/sec TR max cash: 230.0 cm/sec TR max P.2 mmHg Interpretation Summary The study was technically difficult. Contrast injection was performed. Left ventricular systolic function is normal. The estimated ejection fraction is 55 %. Mild (1+) mitral valve insufficiency. Mild to moderate (1-2+) tricuspid valve insufficiency. Mild-Moderate (1-2+) aortic valve insufficiency. Mildly dilated ascending aorta. Right ventricular systolic pressure estimated to be 24 mmHg. No evidence for diastolic dysfunction. Ordering Physician: Ashu Menendez Referring Physician: NANCY ENCARNACION Performed By: Jacquelyn Guerra RDCS
--- NOTE | 2019-02-25 10:56 | STRESSREP ---
Stress Test Report Date: 02-25-19 Procedure: Exercise tolerance test/imaging study Indications: Shortness of breath/dyspnea; thoracic aortic aneurysm; valvular heart disease Consent: Per the patient Procedure: The patient exercised on a Marc protocol for 9 minutes completing Stage III achieving a peak heart rate of 151 bpm (94 % predicted maximal heart rate) with a peak blood pressure 162/90 mmHg and a peak MET capacity of 10 METs. The baseline ECG demonstrated on his bradycardia. The peak exercise ECG demonstrated no obvious ECG changes. There was a rare PVC during recovery. The functional capacity was considered good. There was chest discomfort (heavy) at peak exercise with associated dyspnea with spontaneous resolution to baseline in recovery. The examination was discontinued secondary to dyspnea; leg discomfort. Impression: 1. Technically adequate (percent predicted maximal heart rate greater than 85%) exercise tolerance test 2. Peak exercise ECG with no obvious ECG changes 3. There was a rare PVC during recovery 4. Nuclear images pending Myocardial perfusion imaging study: Technique: The patient was injected with 14.2 mCi of technetium 99m Cardiolite and subsequently rest SPECT Cardiolite nuclear imaging was obtained in the horizontal long, vertical long, and short axis views. The patient exercised on a Marc protocol for 9 minutes completing Stage III achieving a peak heart rate of 151 bpm (94 % predicted maximal heart rate) with a peak blood pressure 162/90 mmHg and a peak MET capacity of 10 METs. The patient was injected with 44.3 mCi of technetium 99m Cardiolite and subsequently stress SPECT Cardiolite nuclear imaging was obtained in the horizontal long, vertical long, and short axis views. A gated Cardiolite study at peak stress was obtained. Interpretation: Rest and stress SPECT Cardiolite nuclear imaging status post realignment, normalization, and attenuation correction, demonstrates the appearance of relative uniform tracer uptake and myocardial perfusion appearing within normal limits. There is end systolic thickening and brightening. The gated Cardiolite study demonstrates myocardial thickening and inward wall motion. The reported LVEF is 66 %. Impression: 1. Rest and stress SPECT Cardiolite nuclear imaging demonstrate relative uniform tracer uptake and myocardial perfusion appearing within normal limits. 2. The gated Cardiolite study reports an LVEF of 66 %. This note was generated with [employer] software. It may contain incorrect words, spelling, and punctuation that were not noted in checking the note before signing.
== END ==
PROVIDERS: Family Provider Family Medicine; PCP Family Medicine; Referring Provider Internal Medicine Cardiovascular Disease; Visit Provider Internal Medicine Cardiovascular Disease
DX: I34.9 Nonrheumatic mitral valve disorder, unspecified (principal); I35.9 Nonrheumatic aortic valve disorder, unspecified; I36.1 Nonrheumatic tricuspid (valve) insufficiency; I71.2 Thoracic aortic aneurysm, without rupture; R06.02 Shortness of breath
CPT/HCPCS: 78452; 93017; 93306; A9500; Q9957; A4216; C8929

== ENCOUNTER 2019-09-05 16:21 | Emergency (ER) | payer OTHER, SELFPAY ==
[2019-09-05] VITALS (7 sets, daily range): BP systolic 139–189; BP diastolic 74–107; PULSE 62–85; RESP 18–20; TEMP 36.8; O2SAT 94–98; BMI 31.4; BMI 30.2
--- NOTE | 2019-09-05 16:34 | CT_ITS ---
STUDY: CTA CHEST REASON FOR EXAM: Female, 59 years old. Chest pain today. Hx hypertension, AAA. RADIATION DOSAGE (If Supplied By Facility): CTDIvol = ( 12.93 ) mGy, DLP = ( 371.61 ) mGycm TECHNIQUE: The examination was performed with the intravenous administration of 100mL Isovue-370. Post-processing of the angiographic images was performed, with multiplanar reformation and 3D reconstruction. Individualized dose optimization techniques were used for this CT. COMPARISON: Chest CTA dated June 24, 2018 FINDINGS: Normal enhancement of the main pulmonary artery and right and left pulmonary arteries. Normal enhancement of the bilateral peripheral pulmonary arteries. There is no demonstrated pulmonary embolism. Top normal diameter to mild aneurysmal dilatation of the ascending aorta at 4.46 cm. There is no demonstrated aortic dissection. Normal heart size and pericardium. Normal mediastinum. Normal hilar regions. Normal visualized trachea and bronchi. The lungs are well expanded. Mild subsegmental atelectasis and groundglass edema is present in the costophrenic angle of the left lower lobe. There is also slight volume loss in this region. Stable smooth lateral subpleural nodule of the right middle lobe measuring 5.7 mm in diameter. The remaining bilateral lung duran are clear. Normal pleura. Normal chest wall structures. There are degenerative changes of thoracic spine. Normal visualized upper abdomen. CT/CTA Chest W/WO Contrast IMPRESSION: 1. No demonstrated pulmonary embolism or arterial dissection. 2. Mild subsegmental atelectasis and groundglass edema is present in the costophrenic angle of the left lower lobe. There is also slight volume loss in this region. Electronically Signed: Ken Frazier MD at 18:13 EST , Service support ,
--- NOTE | 2019-09-05 16:36 | EKG12_ITS ---
Test Reason : CP Blood Pressure : / mmHG Vent. Rate : 062 BPM Atrial Rate : 062 BPM P-R Int : 152 ms QRS Dur : 084 ms QT Int : 432 ms P-R-T Axes : 036 -02 046 degrees QTc Int : 438 ms Normal sinus rhythm Normal ECG Confirmed by GUSTAVO BENDER, CHANCE ([id number]), greeting card editor CAMERON VUONG ([id number]) on 09/08/2019 12:53:39 PM Referred By: SOCORRO Confirmed By:CHANCE CHEN MD
--- NOTE | 2019-09-05 16:38 | ED.DCSUM_ITS ---
- ER Visit Summary Date of Service: 09/05/19 Chief Complaint: Chest pain History of Present Illness: The patient is a 59 F who presents with chest pain that began today while she was eating. Patient states pain is been constant. Patient describes pain as burning and tightness. Patient states the pain is over the substernal area. Patient states pain is worse when she sits up. Patient admits to some nausea but denies any vomiting. Patient admits to some diaphoresis with the pain. Patient denies any shortness of breath. Patient admits to recent cough and fever. Patient has a history of hypertension. Patient also has a history of a thoracic aortic aneurysm. Physical Examination: Vital signs are stable except for an elevated blood pressure of 189/107. Patient is afebrile. Patient is in no acute distress. Oral mucosa is pink and moist. Neck is supple. Trachea is midline. There is no JVD noted. Heart was regular rate and rhythm. Lungs are clear and equal bilaterally. Abdomen is soft. Bowel sounds are normal. There is no tenderness. There is no rebound or guarding noted. Skin is warm dry. Cranial nerves II through XII are intact. There are no focal motor or sensory deficits noted. Extremities are intact. There is no calf tenderness or edema. Test Results: EKG showed a normal sinus rhythm with a rate of 62. There are no acute ST or T wave changes. EKG from Dr. Menendez's office was reviewed. There are some nonspecific ST-T wave changes in V5 and V6 from his office. These are not present on EKG done here in the emergency department. CBC, basic metabolic profile, and troponin were obtained were within normal limits. CTA of the chest was obtained. There is atelectasis and groundglass edema of the left lower lobe. There is no PE or aortic dissection. Emergency Department Course and Treatment: Patient was given aspirin and nitroglycerin here. Patient states her pain improved after this. Case was discussed with Dr. Joshua. He recommended obtaining a delta troponin. This was obtained and was negative. Patient was given a prescription for Prilosec. Patient was instructed to follow-up with her primary care physician as well as Dr. Menendez in 5 to 7 days. Patient was instructed return if worse in any way. Patient understood and was agreeable with the plan. All questions were answered. Disposition: Discharge home Impression: Chest pain This note was generated with [employer] dictation software. It may contain incorrect words, spelling, and punctuation that were not noted in review of the chart prior to signing ED Disposition - Plan for ED Patient: Disposition: Home or Assisted Living Diagnosis: Chest pain Instructions: CHEST PAIN, Uncertain Cause Prescriptions: Omeprazole [Prilosec] 20 mg PO DAILY #30 cap Prescription Printed Referrals: Thor Cho III, MD [Primary Care Provider] - 3-5 Days Ashu Menendez MD [STAFF PHYSICIAN] - 3-5 Days
[2019-09-05 17:07] LABS: Absolute Lymphocyte Count 2.13 X10^3/uL (0.83-4.51); Absolute Neutrophil Count 6.2 X10^3/uL (2.0-7.7); Basophil# 0.03 X10^3/uL; Basophil% 0.3 % (0-1); Eosinophil# 0.14 X10^3/uL; Eosinophils% 1.5 % (0-5); Hematocrit 41.2 % (37-47); Hemoglobin 13.9 g/dL (12.0-15.0); Lymphocyte # 2.13 X10^3/ul (4.0); Lymphocyte % 22.5 % (19-41); Mean Corp Hgb Conc 33.7 g/dL (32-36); Mean Corpuscular Hgb 30.5 pg (27.0-32.0); Mean Corpuscular Volume 90.5 fL (81-99); Mean Platelet Vol. 11.2 fl (6.2-12.0); Monocyte# 0.91 X10^3/uL; Monocyte% 9.6 % (0-10); NRBC Flagged by Analyzer 0 % (0-5); Neutrophil % 65.7 % (47-70); Platelet Count 246 K/mm3 (150-450); RBC Distribution Width CV 12.5 % (11.6-14.6); RBC Distribution Width SD 41.1 fl (35.1-43.9); Red Blood Count 4.55 M/mm3 (4.2-5.4); White Blood Count 9.5 K/mm3 (4.4-11.0)
[2019-09-05] MEDS: Ondansetron 4 MG/2 ML Vial IV (17:14)
[2019-09-05] MEDS: Nitroglycerin SL (ED/IMG/CATH) 0.4 MG TABLET SUBLINGUAL ×3 (17:14→18:18)
[2019-09-05] MEDS: Aspirin 81 MG TAB.CHEW 324 MG PO (17:15)
[2019-09-05 17:23] LABS: Anion Gap 9 (5-15); BUN 24 mg/dL (7-18); BUN/Creat Ratio 20.2 RATIO (10-20); Calcium,Total 9.7 mg/dL (8.5-10.1); Chloride 106 mmol/L (98-107); Creatinine, Serum 1.19 mg/dL (0.55-1.02); EST Glomerular Filtration Rate 49 mL/min (>60); Est Glom Filt Rate - Afr Amer 59 mL/min (>60); Estimated Creatinine Clearance 50.08 ml/min; Glucose 91 mg/dL (74-106); Potassium 3.9 mmol/L (3.5-5.1); Sodium Level 142 mmol/L (136-145)
== END 2019-09-05 20:34 | disposition home or self-care (01) ==
PROVIDERS: Emergency Provider Emergency Medicine; Family Provider Family Medicine; PCP Family Medicine
DX: R07.89 Other chest pain (principal); J98.11 Atelectasis; J81.1 Chronic pulmonary edema; I10 Essential (primary) hypertension; I71.2 Thoracic aortic aneurysm, without rupture; Z79.899 Other long term (current) drug therapy
CPT/HCPCS: 71275; 80048; 84484; 85025; 93005; 96374; 99285; Q9967; A4216; J2405

== ENCOUNTER → 2019-11-26 13:40 | Outpatient (CLI) | payer OTHER, SELFPAY ==
[2019-09-05 16:22] VITALS: BMI 30.2
--- NOTE | 2019-11-26 13:49 | MRI_ITS ---
STUDY: MRI LEFT SHOULDER REASON FOR EXAM: Left shoulder osteoarthritis, pain, decreased range of motion. TECHNIQUE: Standardized fat and water weighted pulse sequences were obtained in all 3 orthogonal planes. COMPARISON: None. FINDINGS: There is mild supraspinatus tendinosis and a small low-grade partial thickness tear of the articular surface of the supraspinatus tendon (T2 coronal image 12) measuring 0.8 cm in length. Normal infraspinatus tendon. Normal subscapularis tendon. Normal teres minor tendon. Normal supraspinatus muscle. Normal infraspinatus muscle. Normal subscapularis muscle. Normal teres minor muscle. There is glenohumeral arthrosis with marginal osteophytes of the humeral head and chondral thinning (proton density coronal images 8-12). There is a small glenohumeral joint effusion with fluid extending into the bicipital tendon sheath and synovitis, especially in the axillary bursa (T2 coronal images 6-11). Normal humeral head and visualized proximal humerus. Normal biceps labral complex. Normal intracapsular long biceps tendon. There is degeneration of the labrum (proton density axial images 13-16). There is acromioclavicular arthrosis with mild hypertrophic changes effacing the subacromial fat (T2 sagittal image 6). There is a Type II morphology (curved), with a neutral orientation. There is no subacromial-subdeltoid bursal fluid. Normal visualized coracohumeral and coracoacromial ligaments. Normal deltoid muscle. Normal trapezius muscle. MRI/Upper Ext Joint Only(Routine) IMPRESSION: Small low-grade partial thickness tear and mild tendinosis of the supraspinatus tendon. Glenohumeral arthrosis with degeneration of the labrum. Acromioclavicular arthrosis. Small glenohumeral joint effusion with synovitis. Electronically Signed: Fili Duran MD at 14:54 EDT Tel , Service support ,
== END ==
PROVIDERS: PCP Family Medicine; Referring Provider Physician Assistant; Visit Provider Physician Assistant
DX: M19.012 Primary osteoarthritis, left shoulder (principal)
CPT/HCPCS: 73221

== ENCOUNTER 2020-03-12 21:36 | Emergency (ER) | payer OTHER, SELFPAY ==
[2019-09-05 16:22] VITALS: BMI 30.2
[2020-03-12 21:37] VITALS: BP 167/79; PULSE 61; RESP 18; TEMP 36.3; O2SAT 95; BMI 28.8
[2020-03-12] MEDS: Diphth,Pertuss(Acell),Tet Vac 0.5 ML Vial IM (21:59)
--- NOTE | 2020-03-12 22:11 | ED.VIS.GEN ---
History of Present Illness Chief Complaint: Laceration Informant: Patient Onset: Today Narrative: Patient was using a mandolin to grating again when she got her right thumb. Unknown last tetanus. She states the skin is gone but it continues to bleed. She is not on any blood thinners. Past Medical History - Allergies and Home Meds Allergies/Adverse Reactions: Allergies oxycodone Allergy (Verified 09/05/19 15:32) Swelling hydromorphone [From Dilaudid] Adverse Reaction (Verified 09/05/19 15:32) Other hallucinations nabumetone [From Relafen] Adverse Reaction (Verified 09/05/19 15:32) Nausea Sulfa (Sulfonamide Antibiotics) Adverse Reaction (Verified 09/05/19 15:32) Nausea tramadol HCl [From Ultram] Adverse Reaction (Verified 09/05/19 15:32) Nausea Primary Care Physician: Thor Cho III, MD [Primary Care Provider] - Surgical History: appendectomy, hysterectomy, rotator cuff repair, total hip arthroplasty, - - brain surgery for hydrocephalus, tubal ligation Smoking Status: Never smoker - Family History Maternal Family History: Family History (Last Reviewed 09/05/19 @ 15:34 by Jenny Rain) Father CAD (coronary artery disease) Mother aneursym Family History: Reports: Hypertension Paternal Family History: Family History (Last Reviewed 09/05/19 @ 15:34 by Jenny Rain) Father CAD (coronary artery disease) Mother aneursym Family History: Reports: No pertinent history Review of Systems General: Denies: Chills, Fever, Sweats Eyes: Denies: Visual changes - bilaterally, Diplopia ENT: Denies: Rhinorrhea, Sore throat Cardiovascular: Denies: Chest pain, Palpitations Respiratory: Denies: Dyspnea, Cough, Dyspnea on exertion Gastrointestinal: Denies: Abdominal pain, Nausea, Vomiting, Diarrhea, Melena, Hematochezia Genitourinary: Denies: Dysuria, Hematuria, Frequency Musculoskeletal: Reports: Extremity Pain. Denies: Back pain Skin: Denies: Rash, Wounds Neurological: Denies: Headache, Weakness, Numbness Physical Exam Vital Signs/Narrative: Vital Signs Temp Pulse Resp BP Pulse Ox 03/12/20 21:37 97.3 F L 61 18 167/79 H 95 Inital Vital Signs reviewed: Yes General: Well nourished, Well developed, No Acute Distress Head: Normocephalic, Atraumatic Eyes: Perrl, EOMI ENT: Moist mucous membranes, No rhinorrhea Neck: Supple, Nontender Cardiovascular: Regular rate, Regular rhythm, No murmurs Respiratory: No distress, CTA bilaterally, Chest nontender Abdomen: Soft, Nontender, Nondistended, Normal bowel sounds Back: Nontender, Normal Inspection Extremities: No edema, - - On the volar medial aspect of the distal left thumb is a 1.5 cm x 1 cm area of skin avulsion. There is a visible arteriole that is bleeding. Skin: Normal color, No rash Neurological: Alert, Oriented x3, Cranial nerves II-XII grossly intact, Normal Strength, Normal Sensation Psychological: Normal affect, Normal Mood Diagnostic/Tx/Re-eval - Medical Decision Making 1/2 cc of 1% lidocaine with epinephrine was instilled to the wound provided adequate anesthesia. Two 5-0 Vicryl stitches were used to tie off the arteriole and one small venule. Wound was dressed with Surgicel and then a rubber glove over the top and then to cross. Wound care was discussed with patient. Tetanus was updated with Adacel . return if worsening or concerns ED Disposition - Plan for ED Patient: Disposition: Home or Assisted Living Diagnosis: Avulsion of skin of finger Instructions: ED AVULSION LACERATION Referrals: Thor Cho III, MD [Primary Care Provider] - As Needed Additional Instructions: Please leave the dressing in place for at least 24 hours. The stitches are absorbable.
[2020-03-12 22:23] VITALS: PULSE 68; RESP 15; O2SAT 99
== END 2020-03-12 22:24 | disposition home or self-care (01) ==
LOC: ED 22:18
PROVIDERS: Emergency Provider Emergency Medicine; PCP Family Medicine
DX: S61.011A Laceration without foreign body of right thumb without damage to nail, initial encounter (principal); X58.XXXA Exposure to other specified factors, initial encounter
CPT/HCPCS: 12001; 90471; 90715; 99283

== ENCOUNTER 2020-03-17 13:49 | Emergency (ER) | payer OTHER, SELFPAY ==
[2020-03-17 13:51] VITALS: BP 154/80; PULSE 60; RESP 18; TEMP 37.1; O2SAT 97
--- NOTE | 2020-03-17 15:00 | CT_ITS ---
STUDY: CT ABDOMEN AND PELVIS WITH CONTRAST REASON FOR EXAM: Female, 59 years old. RLQ PAIN. Hx of colostomy with reversal d/t diverticulitis. Prior appendectomy and hysterectomy RADIATION DOSAGE (If Supplied By Facility): CTDIvol = ( 27.31 ) mGy, DLP = ( 1490.16 ) mGycm TECHNIQUE: Transaxial images were obtained from the dome of the diaphragm to the symphysis pubis with oral contrast. 100mL Isovue-370 was administered. Sagittal and coronal images were reconstructed. Individualized dose optimization techniques were used for this CT. COMPARISON: October 17, 2019. FINDINGS: The visualized lung bases are unremarkable. The visualized portions of the heart are within normal limits. Normal liver. Normal gallbladder and extrahepatic biliary system. Normal spleen. Normal pancreas. Normal bilateral adrenal glands. There is 6.5 cm cyst of the right kidney. There is 1.1 cm cyst of the Left kidney. Normal visualized stomach. There is anterior abdominal wall hernia containing small intestine. There is mild distention of loops of small bowel proximal to this region. Contrast extends to the colon. There is postoperative change of the sigmoid colon. There is moderate stool. There is non-visualization of the appendix. There is mild atherosclerotic calcification of the abdominal aorta, without a demonstrated aneurysm. Normal inferior vena cava. Normal retroperitoneum. Normal urinary bladder. There is absence of the uterus consistent with a prior hysterectomy. There is no free fluid in the abdomen or pelvis. There is postoperative change of the abdominal wall. Degenerative change of the spine and right hip. Left hip replacement. CT/Abdomen/Pelvis WITH Contrast IMPRESSION: Postoperative change. Abdominal wall hernia containing small bowel with mild proximal distention consistent with partial obstruction. Electronically Signed: Toñito Ellis MD at 17:18 EDT , Service support ,
--- NOTE | 2020-03-17 15:01 | ED.DCSUM_ITS ---
History of Present Illness Chief Complaint: Abd Pain Informant: Patient Onset: Yesterday Context: Gradual Onset Timing: Waxes and wanes Current Severity: Moderate Maximum Severity: Moderate Narrative: Patient presents with lower abdominal pain. Symptoms started yesterday afternoon after she ate lunch. She denies nausea or vomiting. She denies urinary symptoms. She has had a prior colostomy that was reversed. She states her surgeon told her that area is narrowed so she took MiraLAX last night thinking that might be the cause of her pain. She had a normal bowel movement and states her pain improved at the time, but then returned today. She has not had fever or chills. He has had prior appendectomy. - Past Medical History (1) Essential hypertension Status: Chronic (2) Hyperlipidemia Status: Chronic (3) Diverticulitis Status: Resolved (4) Anxiety Status: Chronic Past Medical History - Allergies and Home Meds Allergies/Adverse Reactions: Allergies oxycodone Allergy (Verified 09/05/19 15:32) Swelling hydromorphone [From Dilaudid] Adverse Reaction (Verified 09/05/19 15:32) Other hallucinations nabumetone [From Relafen] Adverse Reaction (Verified 09/05/19 15:32) Nausea Sulfa (Sulfonamide Antibiotics) Adverse Reaction (Verified 09/05/19 15:32) Nausea tramadol HCl [From Ultram] Adverse Reaction (Verified 09/05/19 15:32) Nausea Primary Care Physician: Carmine Montez MD [STAFF PHYSICIAN] - 1-2 Days if not improving Doctors: Dr. Montez Surgical History: appendectomy, hysterectomy, rotator cuff repair, total hip arthroplasty, - - brain surgery for hydrocephalus, tubal ligation Lives: Spouse/ Significant Other Smoking Status: Never smoker - Family History Maternal Family History: Family History (Last Reviewed 09/05/19 @ 15:34 by Jenny Rain) Father CAD (coronary artery disease) Mother aneursym Family History: Reports: Hypertension Paternal Family History: Family History (Last Reviewed 09/05/19 @ 15:34 by Jenny Rain) Father CAD (coronary artery disease) Mother aneursym Family History: Reports: No pertinent history Review of Systems General: Denies: Chills, Fever Eyes: Denies: Visual changes - bilaterally ENT: Denies: Bilateral ear pain Cardiovascular: Denies: Chest pain Respiratory: Denies: Dyspnea, Cough Gastrointestinal: Reports: Abdominal pain. Denies: Nausea, Vomiting, Diarrhea Genitourinary: Denies: Dysuria Musculoskeletal: Denies: Extremity Pain Skin: Denies: Rash Neurological: Denies: Headache Hematologic: Denies: Easy bruising, Easy bleeding Allergy: Denies: Uticaria Physical Exam Vital Signs/Narrative: Vital Signs Temp Pulse Resp BP Pulse Ox 03/17/20 13:51 98.7 F 60 18 154/80 H 97 Inital Vital Signs reviewed: Yes General: Well nourished, Well developed Head: Normocephalic ENT: Moist mucous membranes Neck: Supple Cardiovascular: Regular rate, Regular rhythm Respiratory: No distress, CTA bilaterally Abdomen: Soft, Tender - Moderate diffuse tenderness to palpation., Hypoactive bowel sounds. Negative for: Guarding, Rebound tenderness Extremities: Nontender Skin: Normal color Neurological: Alert, Oriented x3 Psychological: Normal affect Diagnostic/Tx/Re-eval Impressions Abdomen/Pelvis CT 03/17/20 15:00 IMPRESSION: Postoperative change. Abdominal wall hernia containing small bowel with mild proximal distention consistent with partial obstruction. Electronically Signed: Toñito Ellis MD at 17:18 EDT , Service support , 03/17/20 15:00 Abdomen/Pelvis WITH Contrast [CT] Stat Laboratory Results 03/17/20 03/17/20 03/17/20 15:04 15:04 15:50 WBC 5.7 RBC 3.92 L Hgb 12.3 Hct 36.9 L MCV 94.1 MCH 31.4 MCHC 33.3 RDW Std Deviation 43.5 RDW Coeff of Roshan 12.6 Plt Count 195 MPV 11.6 Immature Gran % (Auto) 0.200 Neut % (Auto) 54.6 Lymph % (Auto) 29.7 Andrew % (Auto) 13.4 H Eos % (Auto) 1.9 Baso % (Auto) 0.2 Absolute Neuts (auto) 3.1 Absolute Lymphs (auto) 1.70 Nucleated RBC % 0 Sodium 141 Potassium 3.9 Chloride 110 H Carbon Dioxide 27.0 Anion Gap 4 L BUN 23 H Creatinine 0.87 Estim Creat Clear Calc 68.50 Est GFR (MDRD) Af Amer 85 Est GFR (MDRD) Non-Af 71 BUN/Creatinine Ratio 26.6 H Glucose 104 Calcium 8.9 Total Bilirubin 0.30 Direct Bilirubin 0.09 AST 34 ALT 29 Alkaline Phosphatase 94 Total Protein 6.7 Albumin 3.4 Globulin 3.3 Lipase 80 Urine Color Yellow Urine Clarity Clear Urine pH 6.5 Ur Specific [place] 1.010 Urine Protein Negative Urine Glucose (UA) Normal Urine Ketones Negative Urine Occult Blood 10 H Urine Nitrite Negative Urine Bilirubin Negative Urine Urobilinogen Normal Ur Leukocyte Esterase Negative Urine RBC 0 SEEN Urine WBC 0 SEEN Ur Squamous Epith Cells 0 SEEN Urine Bacteria 0 SEEN Urine Mucus 0 SEEN - Medical Decision Making She was given [place] along with Zofran and IV fluids. On repeat evaluation she is resting comfortably. Test results are discussed with her and at bedside. On repeat abdominal exam she does have bowel sounds present with no focal tenderness. I spoke with Dr. Posadas, on-call for surgery. She agrees the patient can be seen in the office in close follow-up. Patient be advised to return for worsened symptoms including increased pain, vomiting, etc. ED Disposition - Plan for ED Patient: Disposition: Home or Assisted Living Diagnosis: Abdominal hernia Instructions: What Is a Hernia? Prescriptions: Hydrocodone Bitart/Apap 5-325 [Hollywood 5MG-325MG] 1 tablet PO Q6H PRN PRN 3 Days #10 tablet PRN Reason: Pain Transmission Status: Sent to [id number] Referrals: Carmine Montez MD [STAFF PHYSICIAN] - 1-2 Days if not improving
[2020-03-17 15:28] LABS: Absolute Neutrophil Count 3.1 X10^3/uL (2.0-7.7); Basophil# 0.01 X10^3/uL; Basophil% 0.2 % (0-1); Eosinophil# 0.11 X10^3/uL; Eosinophils% 1.9 % (0-5); Hematocrit 36.9 % (37-47); Hemoglobin 12.3 g/dL (12.0-15.0); Lymphocyte % 29.7 % (19-41); Mean Corp Hgb Conc 33.3 g/dL (32-36); Mean Corpuscular Hgb 31.4 pg (27.0-32.0); Mean Corpuscular Volume 94.1 fL (81-99); Mean Platelet Vol. 11.6 fl (6.2-12.0); Monocyte# 0.77 X10^3/uL; Monocyte% 13.4 % (0-10); NRBC Flagged by Analyzer 0 % (0-5); Neutrophil # 3.13 X10^3/uL (2.7-7.7); Neutrophil % 54.6 % (47-70); Platelet Count 195 K/mm3 (150-450); RBC Distribution Width CV 12.6 % (11.6-14.6); RBC Distribution Width SD 43.5 fl (35.1-43.9); Red Blood Count 3.92 M/mm3 (4.2-5.4); White Blood Count 5.7 K/mm3 (4.4-11.0)
[2020-03-17] MEDS: HYDROcodone Bitartrate/Apap 5/325 Tablet PO (15:38)
[2020-03-17] MEDS: Ondansetron 4 MG/2 ML Vial IV (15:38)
[2020-03-17 15:47] LABS: AST(SGOT) 34 U/L (15-37); Alanine Aminotransfer ALT/SGPT 29 U/L (13-56); Albumin, Serum 3.4 g/dL (3.2-5.0); Alkaline Phosphatase 94 U/L (45-117); Anion Gap 4 (5-15); BUN 23 mg/dL (7-18); BUN/Creat Ratio 26.6 RATIO (10-20); Bilirubin, Direct 0.09 mg/dL (0.00-0.30); Calcium,Total 8.9 mg/dL (8.5-10.1); Chloride 110 mmol/L (98-107); Creatinine, Serum 0.87 mg/dL (0.55-1.02); EST Glomerular Filtration Rate 71 mL/min (>60); Est Glom Filt Rate - Afr Amer 85 mL/min (>60); Globulin 3.3 g/dL (2.2-4.2); Glucose 104 mg/dL (74-106); Lipase 80 U/L (73-393); Potassium 3.9 mmol/L (3.5-5.1); Protein, Total 6.7 g/dL (6.4-8.2); Sodium Level 141 mmol/L (136-145)
[2020-03-17] MEDS: 0.9% Normal Saline 1,000 ML 150 ML IV (15:50)
[2020-03-17 15:59] LABS: Bacteria 0 SEEN /hpf (None Seen); Mucous, Urine 0 SEEN /hpf (<or=2+); Red Blood Cells-Urine 0 SEEN /hpf (0-5); Squamous Epithelial Cells - UA 0 SEEN /hpf (5-10); White Blood Cells 0 SEEN /hpf (0-5)
[2020-03-17 16:03] LABS: Color, Urine Yellow (Yellow); Glucose, Dipstick Normal (Normal); Ketone-Dipstick Negative (Negative); Leukocyte Esterase-Dipstick Negative /ul (Negative); Nitrite-Dipstick Negative (Negative); Occult Blood-Urine 10 /ul (Negative); Protein-Dipstick Negative (Negative); Urine Bilirubin Dipstick Negative (Negative); Urine Clarity Clear (Clear); Urine Urobilinogen Normal (Normal); Urine pH 6.5 (5.0 - 8.0)
[2020-03-17 18:02] VITALS: BP 141/89; PULSE 88; RESP 18; TEMP 36.6; O2SAT 99
== END 2020-03-17 18:03 | disposition home or self-care (01) ==
PROVIDERS: Emergency Provider Emergency Medicine; PCP Family Medicine
DX: K46.9 Unspecified abdominal hernia without obstruction or gangrene (principal)
CPT/HCPCS: 74177; 80048; 80076; 81001; 83690; 85025; 96374; 99283; J7030; Q9967; A4216; J2405

== ENCOUNTER 2021-01-29 09:11 | Emergency (ER) | payer OTHER, MEDICAID, SELFPAY ==
[2021-01-29 09:12] VITALS: BP 148/97; PULSE 73; RESP 16; TEMP 36.5; BMI 27.3
--- NOTE | 2021-01-29 09:29 | ED.VIS.BACK ---
HPI History of Present Illness Chief Complaint: Back Detail of Chief Complaint: Back pain that started yesterday morning when she woke up Informant: patient Onset/Context/Timing Timing: Continuous Quality: Dull and Aching Current Severity: Severe Worsened by: improves with Movement Associated Symptoms Associated Symptoms: Radiation to Right Leg; Negative for Numbness and Tingling Narrative Narrative: Patient presents with pain to her right low back that started yesterday morning when she woke up. She denies injury or trauma. Patient states that eventually the pain seemed to ease up and mostly resolved and she thought she was going to be okay. This morning she woke up and had continued pain and now having pain when she ambulates. Pain worse with certain movements. At times pain radiates into the right buttock and the right leg feels achy. She describes her urinary frequency but denies dysuria. She denies any blood in her urine. No history of kidney stones. She denies fever or recent illness. Patient denies weakness in extremity or change in bowel or bladder function. Prior similar symptoms: No PFSH PFSH Medical History (Updated 01/29/21 @ 10:[address] Chris Darling, ) Abnormal echocardiogram Abnormal electrocardiogram Anxiety Ascending aortic aneurysm Diverticulitis Essential hypertension Hyperlipidemia Non-rheumatic tricuspid valve insufficiency Nonrheumatic aortic valve disorder, unspecified Nonrheumatic mitral valve disorder, unspecified Thoracic aneurysm without mention of rupture Tricuspid insufficiency Home Medications lorazepam 0.5 mg PO DAILY PRN PRN 06/07/15 [History Last Taken Unknown] cholecalciferol (vitamin D3) 5,000 unit PO DAILY 03/24/16 [History Last Taken 10/11/17] magnesium 300 mg PO DAILY 03/24/16 [History Last Taken 10/11/17 08:00] vitamin B complex 1 ea PO DAILY 03/24/16 [History Last Taken 10/11/17 08:00] multivitamin with folic acid 1 tab PO DAILY 06/17/17 [History Last Taken 10/11/17 08:00] trazodone 50 mg tablet 100 mg PO QHS tab 01/29/19 [History Last Taken Unknown] metoprolol succinate 100 mg tablet,extended release 24 hr 100 mg PO DAILY 09/05/19 [History Last Taken Unknown] Biotin 1 tab PO DAILY 03/12/20 [History Last Taken Unknown] cyclobenzaprine 10 mg PO TID PRN #20 tablet 01/29/21 [Rx Last Taken Unknown] hydrocodone-acetaminophen 1 tab PO Q4H PRN PRN 3 Days #15 tablet 01/29/21 [Rx Last Taken Unknown] naproxen 500 mg PO BID #14 tab 01/29/21 [Rx Last Taken Unknown] Allergy/AdvReac Type Severity Reaction Status Date / Time oxycodone Allergy Swelling Verified 01/29/21 09:12 hydromorphone [From Dilaudid] AdvReac Other Verified 01/29/21 09:12 nabumetone [From Relafen] AdvReac Nausea Verified 01/29/21 09:12 Sulfa (Sulfonamide AdvReac Nausea Verified 01/29/21 09:12 Antibiotics) tramadol HCl [From Ultram] AdvReac Nausea Verified 01/29/21 09:12 Family History Father CAD (coronary artery disease) Mother aneursym Surgical History History of colon surgery (~10/2017) Social History (Updated 09/05/19 @ 16:[address] Ashu Menendez MD) Smoking Status: Never smoker alcohol intake: never substance use type: does not use caffeine: Yes Type: tea Number of servings: 1 what type of physical activity do you participate in: walking frequency: daily duration: < 15 minutes/day seatbelt use: always do you feel safe at home: Yes ROS ROS ED Constitutional Constitutional ED: Reports systems reviewed and no addt'l complaints, except as documented; Denies body ache(s), change in weight or chills Eyes Eyes: Denies acute decrease in peripheral vision, change in vision, double vision or loss of vision ENT ENT ED: Reports none; Denies ear pain, lip swelling, loss taste/smell, neck pain, otalgia or sore throat Cardiovascular Cardiovascular: Reports none; Denies abdominal pain, chest pain with activity, leg edema, lightheadedness, palpitations, rapid heart rate or syncope Respiratory/Chest Respiratory/Chest: Reports none; Denies change in mental status, dry cough, dyspnea, hemoptysis, shortness of breath at rest or shortness of breath with exertion Gastrointestinal Gastrointestinal: Reports none; Denies abdominal pain, change in stool character, diarrhea, hematemesis, hematochezia, melena, rectal bleeding or vomiting Genitourinary Genitourinary ED: Reports none and urinary frequency; Denies abdominal discomfort, anuria, dysuria, genital pain or polyuria Musculoskeletal Musculoskeletal: Reports none and back pain; Denies arthralgias, difficulty walking, extremity pain, muscle weakness or myalgias Integumentary Reports none; Denies abscess or rash Neurologic Neurologic: Reports none; Denies abnormal gait, confusion, focal weakness, frequent falls, headache(s), loss of vision, numbness, paresthesias, radicular pain, vertigo or weakness Psychiatric Psychiatric: Reports systems reviewed and no addt'l complaints, except as documented and none; Denies behavioral changes, confusion, difficulty concentrating, hallucinations, suicidal ideation, tactile hallucinations or visual hallucinations Endocrine Endocrinology: Denies none, cold intolerance, excessive sweating, fatigue or heat intolerance Hematologic/Lymphatic Hematologic/Lymphatic: Reports none; Denies anemia, easy bleeding or easy bruising Allergic/Immunologic Allergic/Immunologic ED: Denies as per HPI, none, lip swelling, mouth swelling, throat swelling, tongue swelling or hives EXAM Physical Exam Const Vital Signs: 01/29/21 09:12 Temperature 97.7 F L Temperature Source Temporal Pulse Rate 73 Respiratory Rate 16 Blood Pressure 148/97 H Blood Pressure Mean 114 Positive well nourished and well developed General Appearance ED: well developed and NAD HEENT Reports TM's clear and moist mucous membranes normocephalic and atraumatic; Negative for trauma or tenderness Tympanic Membrane ED: Yes TM's clear Eyes PERRL and EOMs intact bilaterally General Eye ED: Negative for pale conjunctiva or scleral icterus Neck no lymphadenopathy, supple and no JVD General: Negative for tenderness Chest Wall inspection of chest normal and palpation of chest normal Chest: Negative for tenderness Resp normal respiratory effort and clear to auscultation bilaterally Effort and Inspection: Negative for respiratory distress or pain with movement Auscultation: Negative for rhonchi, wheezes or diminished lung sounds Cardio regular rate, regular rhythm, S1 normal heart sound, S2 normal heart sound and no murmurs Peripheral Pulses: pulses 2+ throughout GI normal to inspection, nondistended, normoactive bowel sounds, soft to palpation, non-tender, non-distended and no masses Back/Spine no CVA tenderness and no thoracic nor lumbar tenderness Back/Spine Narrative: Patient has some tenderness palpation over the right lumbar paraspinal musculature and into the right buttock over the piriformis. She has negative straight leg raises bilaterally. Deep tendon reflexes are plus 2 out of 4 bilaterally at the patella and Achilles. Patient has normal 5 extension. Normal sensation to light touch. Extremity normal to inspection General Extremety ED: Negative for edema General Extremity: Negative for edema Neuro oriented x3, CN's II-XII intact bilaterally, no sensory deficits noted and gait normal Sensorium / Orientation: awake, alert, oriented to person, oriented to place and oriented to time Motor Exam: strength 5/5 throughout and strength abnormal Psych mental status grossly normal Skin no rashes or lesions noted and no wounds MDM MDM MDM Narrative Medical decision making narrative: Patient with atraumatic back pain. I do not feel any imaging is indicated. Exam and history not consistent with a kidney stone. I suspect likely muscle sole spasm versus radiculopathy. Patient will be given a prescription for Naprosyn, Flexeril, [place]. Patient to follow-up with primary care physician in 3 to 5 days. Lab Data Attestation: I reviewed the patient's lab results. Labs: Laboratory Results - last 24 hr 01/29/21 10:05 Urine Color Yellow Urine Clarity Clear Urine pH 6.0 Ur Specific [place] 1.025 Urine Protein 15 H Urine Glucose (UA) Normal Urine Ketones Negative Urine Occult Blood 25 H Urine Nitrite Negative Urine Bilirubin Negative Urine Urobilinogen Normal Ur Leukocyte Esterase 100 H Urine RBC 0 SEEN Urine WBC 0-5 SEEN Ur Squamous Epith Cells 0-5 SEEN Urine Bacteria 0 SEEN Urine Mucus 0 SEEN Discharge Plan Triage Chief Complaint: Back ED Provider: Chris Darling Dx/Rx/DC Orders Clinical Impression: Back pain Instructions: ED Back Spasm, No Trauma Prescriptions: New cyclobenzaprine [cyclobenzaprine] 10 MG tablet 10 mg PO TID PRN (Reason: Muscle Spasm) Qty: 20 RF: 0 hydrocodone-acetaminophen [hydrocodone-acetaminophen] 1 TABLET tablet 1 tab PO Q4H PRN PRN (Reason: Pain) 3 Days Qty: 15 RF: 0 naproxen 500 MG tablet 500 mg PO BID Qty: 14 RF: 0 No Action metoprolol succinate 100 mg tablet extended release 24 hr 100 mg PO DAILY RF: 0 lorazepam 1 MG tablet 0.5 mg PO DAILY PRN PRN (Reason: Anxiety) RF: 0 vitamin B complex 1 EACH capsule 1 ea PO DAILY RF: 0 magnesium 200 MG tablet 300 mg PO DAILY RF: 0 cholecalciferol (vitamin D3) 1,000 UNIT tablet 5,000 unit PO DAILY RF: 0 trazodone 50 mg tablet 100 mg PO QHS RF: 0 multivitamin with folic acid 1 TABLET tablet 1 tab PO DAILY RF: 0 Biotin 1 tab PO DAILY RF: 0 Primary Care Provider: Thor Cho III Referrals: Thor Cho III, MD [Primary Care Provider] - Too Hunt MD [STAFF PHYSICIAN] - 3-5 Days Disposition Disposition: Home, self care
[2021-01-29] MEDS: Ketorolac 30 MG/ML Syringe IM (09:37)
[2021-01-29] MEDS: Morphine 4 MG/ML Syringe IM (09:37)
[2021-01-29] MEDS: Orphenadrine 60 MG/2 ML Ampul IM (09:38)
[2021-01-29 10:15] LABS: Bacteria 0 SEEN /hpf (None Seen); Mucous, Urine 0 SEEN /hpf (<or=2+); Red Blood Cells-Urine 0 SEEN /hpf (0-5)
[2021-01-29 10:35] LABS: Color, Urine Yellow (Yellow); Glucose, Dipstick Normal (Normal); Ketone-Dipstick Negative (Negative); Leukocyte Esterase-Dipstick 100 /ul (Negative); Nitrite-Dipstick Negative (Negative); Occult Blood-Urine 25 /ul (Negative); Protein-Dipstick 15 mg/dl (Negative); Specific Gravity, Urine 1.025 (1.002-1.030); Urine Bilirubin Dipstick Negative (Negative); Urine Clarity Clear (Clear); Urine Urobilinogen Normal (Normal)
[2021-01-29 10:41] LABS: Squamous Epithelial Cells - UA 0-5 SEEN /hpf (5-10); White Blood Cells 0-5 SEEN /hpf (0-5)
[2021-01-29 11:09] VITALS: BP 130/85; PULSE 76; RESP 18; O2SAT 99
== END 2021-01-29 11:10 | disposition home or self-care (01) ==
PROVIDERS: Emergency Provider Emergency Medicine; PCP Family Medicine
DX: M54.5 Low back pain (principal); I10 Essential (primary) hypertension; Z79.899 Other long term (current) drug therapy
CPT/HCPCS: 81001; 96372; 99282

== ENCOUNTER 2021-05-26 11:59 | Emergency (ER) | payer OTHER, MEDICAID, SELFPAY ==
[2021-05-26 12:00] VITALS: BP 171/90; PULSE 94; RESP 28; TEMP 37.6; O2SAT 89; BMI 26.6
[2021-05-26 12:29] VITALS: BP 133/82; PULSE 82; RESP 22; TEMP 37.6; O2SAT 89; O2SAT 92
--- NOTE | 2021-05-26 12:33 | RAD_ITS ---
STUDY: X-RAY CHEST REASON FOR EXAM: Female, 61 years old. covid . Increasing shortness of breath cough and weakness. TECHNIQUE: Single AP portable view of the chest. COMPARISON: Comparison is made with prior study dated 09/27/2018. FINDINGS: EKG electrodes are seen. Focal infiltrate is seen in the right midlung as well as in the right lung base. There is no demonstrated pleural abnormality. Normal size heart. Normal mediastinum and kalyn. Normal visualized pulmonary arteries. There is atherosclerotic tortuosity of the aortic arch and descending thoracic aorta. There are diffuse degenerative changes of the visualized thoracic spine. There is degenerative osteoarthritis of the bilateral shoulders. There is no demonstrated abnormality of the visualized soft tissue structures of the upper abdomen. RAD/Chest 1 View (Portable) IMPRESSION: Early infiltrate in the right midlung and right lower lobe. Electronically Signed: Alexandre Suggs MD at 13:43 EDT , Service support ,
--- NOTE | 2021-05-26 12:35 | EX.ED.VIS.UR ---
HPI HPI - URI History of Present Illness Chief Complaint: Shortness of Breath Informant: patient Onset/Context/Timing Onset: Days Context: Gradual Onset Timing: Continuous Current Severity: Mild Maximum Severity: Mild Associated Symptoms Associated Symptoms: Positive for Nasal Congestion, Myalgias, Diarrhea, Shortness of Breath and Nonproductive cough; Negative for Nausea, Vomiting and Hemoptysis Narrative Narrative: 61 female history of hypertension and prior phlebitis. States she tested positive for Covid last Sunday. She has been having fever as high as 103 cough. She has had some mild loose stools no vomiting. No hemoptysis. Prior similar symptoms: Yes Recent Illness/Hospitalization: No ROS ROS ED ROS Narrative Cough, shortness of breath, loose stools and fevers. Review of Systems ROS Unobtainable: Denies due to encephalopathy Constitutional Constitutional ED: Reports chills and fever(s) Eyes Eyes: Denies change in vision ENT ENT ED: Denies ear pain or sore throat Cardiovascular Cardiovascular: Denies chest pain Respiratory/Chest Respiratory/Chest: Reports cough, dyspnea and sputum Gastrointestinal Gastrointestinal: Reports diarrhea; Denies abdominal pain, nausea or vomiting Genitourinary Genitourinary ED: Denies dysuria Musculoskeletal Musculoskeletal: Reports myalgias Integumentary Denies rash Neurologic Neurologic: Denies headache(s) Psychiatric Psychiatric: Denies depression Endocrine Endocrinology: Denies polyuria Hematologic/Lymphatic Hematologic/Lymphatic: Denies easy bruising Allergic/Immunologic Allergic/Immunologic ED: Denies urticaria [facility] Medical History Abnormal echocardiogram Abnormal electrocardiogram Anxiety Ascending aortic aneurysm Diverticulitis Essential hypertension Hyperlipidemia Non-rheumatic tricuspid valve insufficiency Nonrheumatic aortic valve disorder, unspecified Nonrheumatic mitral valve disorder, unspecified Thoracic aneurysm without mention of rupture Tricuspid insufficiency Valvular heart disease Home Medications lorazepam 0.5 mg PO DAILY PRN PRN 06/07/15 [History Last Taken Unknown] cholecalciferol (vitamin D3) 5,000 unit PO DAILY 03/24/16 [History Last Taken 10/11/17] magnesium 300 mg PO DAILY 03/24/16 [History Last Taken 10/11/17 08:00] vitamin B complex 1 ea PO DAILY 03/24/16 [History Last Taken 10/11/17 08:00] multivitamin with folic acid 1 tab PO DAILY 06/17/17 [History Last Taken 10/11/17 08:00] trazodone 50 mg tablet 100 mg PO QHS tab 01/29/19 [History Last Taken Unknown] metoprolol succinate 100 mg tablet,extended release 24 hr 50 mg PO DAILY #90 tab 03/10/21 [Rx Last Taken Unknown] losartan 50 mg tablet 50 mg PO DAILY #30 tab 03/11/21 [Rx Last Taken Unknown] atorvastatin 10 mg tablet 10 mg PO QHS 04/18/21 [History Last Taken Unknown] meloxicam 15 mg tablet 15 mg PO DAILY 04/18/21 [History Last Taken Unknown] omeprazole magnesium 20 mg tablet,delayed release 20 mg PO DAILY 04/18/21 [History Last Taken Unknown] azithromycin [Zithromax] 250 mg PO DAILY 4 Days #4 tab 05/26/21 [Rx Last Taken Unknown] dexamethasone [Decadron] 6 mg PO DAILY 7 Days #7 tab 05/26/21 [Rx Last Taken Unknown] Allergy/AdvReac Type Severity Reaction Status Date / Time oxycodone Allergy Swelling Verified 05/26/21 12:03 hydromorphone [From Dilaudid] AdvReac Other Verified 05/26/21 12:03 nabumetone [From Relafen] AdvReac Nausea Verified 05/26/21 12:03 Sulfa (Sulfonamide AdvReac Nausea Verified 05/26/21 12:03 Antibiotics) tramadol HCl [From Ultram] AdvReac Nausea Verified 05/26/21 12:03 Family History Father CAD (coronary artery disease) Mother aneursym Surgical History History of colon surgery (~10/2017) History of hernia repair Social History Smoking Status: Never smoker alcohol intake: never substance use type: does not use caffeine: Yes Type: tea Number of servings: 1 what type of physical activity do you participate in: walking frequency: daily duration: < 15 minutes/day seatbelt use: always do you feel safe at home: Yes EXAM Physical Exam Narrative Exam Narrative: 61-year-old female no acute distress. Lungs are clear. Heart regular rhythm no murmur. Moving all 4 extremities no edema. No cords. Neurologically awake and alert. Dry mucous membranes. Const Vital Signs: 05/26/21 12:00 05/26/21 12:29 05/26/21 12:55 Temperature 99.7 F H 99.7 F H Temperature Source Oral Oral Pulse Rate 94 82 Respiratory Rate 28 H 22 H Respiratory Effort Short of Breath Respiratory Depth Normal Respiratory Pattern Hyperpnea Blood Pressure 171/90 H 133/82 H Blood Pressure Mean 117 99 Pulse Ox 89 92 Oxygen Delivery Method Room Air Nasal Cannula Nasal Cannula Oxygen Flow Rate (L/min) 2 2 05/26/21 13:16 Temperature Temperature Source Pulse Rate 87 Respiratory Rate 20 H Respiratory Effort Respiratory Depth Respiratory Pattern Blood Pressure 98/54 L Blood Pressure Mean 68 Pulse Ox 92 Oxygen Delivery Method Nasal Cannula Oxygen Flow Rate (L/min) 2 Positive well nourished and well developed; Negative for cachectic or contractures General Appearance ED: well developed and NAD; Negative for cachectic, contractures, cyanotic or diaphoretic Nutritional Appearance: Negative for cachectic HEENT normocephalic and atraumatic; Negative for scalp tenderness External Ear: external ears normal Eyes PERRL and EOMs intact bilaterally Neck no lymphadenopathy, supple, no meningeal signs and no JVD General: Negative for anterior neck swelling Resp normal respiratory effort and clear to auscultation bilaterally Auscultation: Negative for rales, rhonchi or wheezes Cardio S1 normal heart sound, S2 normal heart sound and no murmurs Rate: regular rate Rhythm: regular rhythm GI non-tender, non-distended and no masses Inspection: Negative for abdominal distention Auscultation: normoactive bowel sounds; Negative for hyperactive bowel sounds Palpation: soft; Negative for tender or guarding Back/Spine no CVA tenderness and normal ROM General Back: Negative for CVA tenderness Cervical Spine: Negative for cervical spine tenderness Extremity normal to inspection General Extremety ED: Negative for cyanosis or tenderness General Extremity: Negative for cyanosis Neuro oriented x3 Sensorium / Orientation: alert, oriented to person, oriented to place and oriented to time; Negative for orientation impaired, lethargic or stuporous Motor Exam: strength 5/5 throughout Psych mental status grossly normal Skin Lesions: no lesions Rashes: no rashes MDM MDM MDM Narrative Medical decision making narrative: Patient with Covid complaint shortness of breath and typical Covid symptoms. Will be treated with IV fluids because clinically she looks little dehydrated. Screening labs and chest x-ray being obtained. Repeat exam patient is doing well at 2:30 PM. She and I discussed at length treatment options and plan she prefers to be discharged home I am comfortable with that. Try to get her set up for home O2 because her pulse ox was 89 on room air on arrival. She has been started on Decadron and she will be continued for a week. She will be placed on Zithromax in case this is secondary bacterial pneumonia but most likely it is Covid. Lab Data Attestation: I reviewed the patient's lab results. Lab results narrative: CBC shows a white count of 4. Hemoglobin 14. Sodium 133. Gap 8. Normal creatinine. Glucose 117. Labs: Laboratory Results - last 24 hr 05/26/21 05/26/21 12:57 12:57 WBC 4.1 L RBC 4.74 Hgb 14.7 Hct 43.1 MCV 90.9 MCH 31.0 MCHC 34.1 RDW Std Deviation 41.2 RDW Coeff of [place] 12.4 Plt Count 179 MPV 11.2 Immature Gran % (Auto) 1.500 H Neut % (Auto) 56.2 Lymph % (Auto) 29.9 [place] % (Auto) 11.9 H Eos % (Auto) 0.0 Baso % (Auto) 0.5 Absolute Neuts (auto) 2.3 Absolute Lymphs (auto) 1.21 Nucleated RBC % 0 Sodium 133 L Potassium 3.6 Chloride 99 Carbon Dioxide 26.0 Anion Gap 8 BUN 21 H Creatinine 0.88 Estim Creat Clear Calc 68.38 Est GFR (MDRD) Af Amer 83 Est GFR (MDRD) Non-Af 69 BUN/Creatinine Ratio 23.7 H Glucose 117 H Calcium 8.5 Radiography Diagnostic Testing: Radiology Impression Chest X-Ray 05/26/21 12:33 IMPRESSION: Early infiltrate in the right midlung and right lower lobe. Electronically Signed: Alexandre Suggs MD at 13:43 EDT , Service support , Chest x-ray shows infiltrate right lower lobe clinically which may or may not be from just Covid or superimposed pneumonia. Discharge Plan Triage Chief Complaint: Shortness of Breath ED Provider: Dominik Charles Dx/Rx/DC Orders Clinical Impression: COVID Instructions: Human Coronaviruses Prescriptions: New azithromycin [Zithromax] 250 mg tablet 250 mg PO DAILY 4 Days Qty: 4 RF: 0 dexamethasone [Decadron] 6 mg tablet 6 mg PO DAILY 7 Days Qty: 7 RF: 0 No Action atorvastatin 10 mg tablet 10 mg PO QHS RF: 0 omeprazole magnesium 20 mg tablet,delayed release (DR/EC) 20 mg PO DAILY RF: 0 meloxicam 15 mg tablet 15 mg PO DAILY RF: 0 lorazepam 1 MG tablet 0.5 mg PO DAILY PRN PRN (Reason: Anxiety) RF: 0 vitamin B complex 1 EACH capsule 1 ea PO DAILY RF: 0 magnesium 200 MG tablet 300 mg PO DAILY RF: 0 cholecalciferol (vitamin D3) 1,000 UNIT tablet 5,000 unit PO DAILY RF: 0 trazodone 50 mg tablet 100 mg PO QHS RF: 0 multivitamin with folic acid 1 TABLET tablet 1 tab PO DAILY RF: 0 metoprolol succinate 100 mg tablet extended release 24 hr 50 mg PO DAILY Qty: 90 RF: 3 losartan 50 mg tablet 50 mg PO DAILY Qty: 30 RF: 11 Primary Care Provider: Ganga Nunez Referrals: Ganga Nunez MD [Primary Care Provider] - 1 Week if not improving Activity Restrictions/Additional Instructions: Plenty fluids and rest. Tylenol for fever and Motrin. Follow-up with your doctor if not improving in a week. Return if feeling worse or significantly short of breath. Decadron daily help with your breathing. Home oxygen., Daily zithromax. Disposition Disposition: Home, Self Care
[2021-05-26 13:04] LABS: Absolute Lymphocyte Count 1.21 X10^3/uL (0.83-4.51); Absolute Neutrophil Count 2.3 X10^3/uL (2.0-7.7); Basophil# 0.02 X10^3/uL; Basophil% 0.5 % (0-1); Hematocrit 43.1 % (37-47); Hemoglobin 14.7 g/dL (12.0-15.0); Lymphocyte # 1.21 X10^3/ul (0.83-4.51); Lymphocyte % 29.9 % (19-41); Mean Corp Hgb Conc 34.1 g/dL (32-36); Mean Corpuscular Volume 90.9 fL (81-99); Mean Platelet Vol. 11.2 fl (6.2-12.0); Monocyte# 0.48 X10^3/uL; Monocyte% 11.9 % (0-10); NRBC Flagged by Analyzer 0 % (0-5); Neutrophil # 2.28 X10^3/uL (2.7-7.7); Neutrophil % 56.2 % (47-70); Platelet Count 179 K/mm3 (150-450); RBC Distribution Width CV 12.4 % (11.6-14.6); RBC Distribution Width SD 41.2 fl (35.1-43.9); Red Blood Count 4.74 M/mm3 (4.2-5.4); White Blood Count 4.1 K/mm3 (4.4-11.0)
[2021-05-26] MEDS: 0.9% Normal Saline 1,000 ML 1000 ML IV (13:13)
[2021-05-26] MEDS: dexAMETHasone 4 MG Tablet 6 MG PO (13:14)
[2021-05-26 13:16] VITALS: BP 98/54; PULSE 87; RESP 20; O2SAT 92
[2021-05-26 13:17] LABS: Anion Gap 8 (5-15); BUN 21 mg/dL (7-18); BUN/Creat Ratio 23.7 RATIO (10-20); Calcium,Total 8.5 mg/dL (8.5-10.1); Chloride 99 mmol/L (98-107); Creatinine, Serum 0.88 mg/dL (0.55-1.02); EST Glomerular Filtration Rate 69 mL/min (>60); Est Glom Filt Rate - Afr Amer 83 mL/min (>60); Estimated Creatinine Clearance 68.38 ml/min; Glucose 117 mg/dL (74-106); Potassium 3.6 mmol/L (3.5-5.1); Sodium Level 133 mmol/L (136-145)
[2021-05-26 14:38] VITALS: BP 115/81; BP 151/81; PULSE 81; PULSE 86; RESP 22; TEMP 37.7; O2SAT 89; O2SAT 90
[2021-05-26] MEDS: Azithromycin 250 MG Tablet 500 MG PO (14:40)
--- NOTE | 2021-05-26 15:00 | CM.ED ---
SHIRLEY Note Referral Source: financial services technician Reason: Home oxygen SHIRLEY was advised by RN that patient needs home oxygen for discharge. SHIRLEY called [facility] and spoke to Alejandra. She said that as patient has [employer] ([employer]ia Santiago) and [employer] if they do not take [employer] they accept patients secondary insurance, [employer]. SHIRLEY faxed the prescription, face to face, demographics and insurance form to [facility]. SHIRLEY will provide patient with hospital stocked oxygen tank. SHIRLEY remains available if needs arise. SHIRLEY sent email [facility] 02 advising of home oxygen discharge.RN Jem updated. Plan: Home with home oxygen Blanca AKHTAR
[2021-05-26 15:10] VITALS: O2SAT 87; O2SAT 88; O2SAT 93
[2021-05-26 15:21] VITALS: BP 116/79; PULSE 73; RESP 24; O2SAT 92
--- NOTE | 2021-05-26 16:57 | CM.ED ---
SHIRLEY Note SHIRLEY called [facility] to ensure that patient was seen by a tech. SHIRLEY spoke to Ngoc and she advised that tech had been out to see patient. She also will see if additional oxygen tanks can be provided to this gag writer in the ED. Plan: Patient was seen by [facility] mathur to set up oxygen per Ngoc AKHTAR
--- NOTE | 2021-05-27 10:55 | CASEMGMT ---
Addendum entered by Homa Balbuena 05/27/21 11:44: RN ITZ received call back from patient. Patient states she is feeling rough. Patient states she was able to fill prescriptions and taking medications. Patient states her SP02 was 78 and then started to rise while speaking with this RN CM. RN CM encourage patient to increase oxygen to 3 lpm. Patient voiced understanding, increased oxygen, and SP02 odilon to 90%. RN CM encouraged patient to call PCP and update on condition. Encouraged patient that if her SPo2 continues to drop or having increased SOB to PCP or return to ED for eval. Patient voiced understanding. Original Note: ANNELIESE MOBLEY ED covid home o2 follow-up: RN CM attempted to call patient. No answer, voice message left with return contact information.
== END 2021-05-26 15:34 | disposition home or self-care (01) ==
PROVIDERS: Emergency Provider Emergency Medicine; PCP Family Medicine
DX: U07.1 COVID-19 (principal); I10 Essential (primary) hypertension; E78.5 Hyperlipidemia, unspecified; Z79.899 Other long term (current) drug therapy
CPT/HCPCS: 71045; 80048; 85025; 99285; J7030; A4216

== ENCOUNTER 2021-05-28 12:56 | Inpatient (IN) | payer OTHER, MEDICAID, SELFPAY ==
[2021-05-28] VITALS (10 sets, daily range): BP systolic 104–134; BP diastolic 61–83; PULSE 57–73; RESP 16–27; TEMP 36.4–37.2; O2SAT 6–97; BMI 26.6; BMI 27.5
[2021-05-28] MEDS: dexAMETHasone 4 MG/ML Vial 6 MG IV (14:33)
[2021-05-28] MEDS: Acetaminophen 500 MG Tablet 1000 MG PO (14:34)
--- NOTE | 2021-05-28 14:45 | RAD_ITS ---
STUDY: X-RAY CHEST REASON FOR EXAM: Female, 61 years old. cough TECHNIQUE: AP COMPARISON: 05/26/2021 FINDINGS: EKG leads project over the chest. Patchy infiltrates of the right mid and lower lung mildly worse. Development of patchy infiltrate in the left mid and lower lung as well. There is no demonstrated pleural abnormality. Normal size heart. Normal mediastinum and kalyn. Normal visualized pulmonary arteries. Normal visualized aortic arch and descending thoracic aorta. There are diffuse degenerative changes of the visualized thoracic spine. There is degenerative osteoarthritis of the bilateral shoulders. There is no demonstrated abnormality of the visualized soft tissue structures of the upper abdomen. RAD/Chest 1 View (Portable) IMPRESSION: Unfavorable change. Worse right and new left pulmonary infiltrates. Electronically Signed: Han Torre MD ([place]) at 16:20 EDT , Service support ,
[2021-05-28 15:17] LABS: Absolute Lymphocyte Count 1.24 X10^3/uL (0.83-4.51); Absolute Neutrophil Count 10.8 X10^3/uL (2.0-7.7); Basophil# 0.02 X10^3/uL; Basophil% 0.2 % (0-1); Hematocrit 40.9 % (37-47); Hemoglobin 13.8 g/dL (12.0-15.0); Lymphocyte # 1.24 X10^3/ul (0.83-4.51); Lymphocyte % 9.6 % (19-41); Mean Corp Hgb Conc 33.7 g/dL (32-36); Mean Corpuscular Hgb 31.4 pg (27.0-32.0); Monocyte# 0.81 X10^3/uL; Monocyte% 6.3 % (0-10); NRBC Flagged by Analyzer 0 % (0-5); Neutrophil # 10.79 X10^3/uL (2.7-7.7); Neutrophil % 83.3 % (47-70); Platelet Count 180 K/mm3 (150-450); RBC Distribution Width CV 12.4 % (11.6-14.6); White Blood Count 12.9 K/mm3 (4.4-11.0)
[2021-05-28 15:34] LABS: ALB/GLOB Ratio 0.8 RATIO (0.9-2.4); AST(SGOT) 35 U/L (15-37); Alanine Aminotransfer ALT/SGPT 28 U/L (13-56); Alkaline Phosphatase 90 U/L (45-117); Anion Gap 6 (5-15); BUN 23 mg/dL (7-18); BUN/Creat Ratio 33.1 RATIO (10-20); Chloride 104 mmol/L (98-107); EST Glomerular Filtration Rate 91 mL/min (>60); Est Glom Filt Rate - Afr Amer 110 mL/min (>60); Estimated Creatinine Clearance 82.98 ml/min; Glucose 100 mg/dL (74-106); Potassium 3.9 mmol/L (3.5-5.1); Sodium Level 136 mmol/L (136-145)
--- NOTE | 2021-05-28 15:42 | ED.VIS.DYS ---
HPI History of Present Illness Chief Complaint: Shortness of Breath Informant: patient Onset/Context/Timing Onset: Days (10) Context: gradual Timing: Continuous Quality: Positive for Dyspnea on exertion Worsened by: Exertion Relieved by: Nothing Associated Symptoms cough, rhinorrhea, ear pain, sore throat, subjective, chills and clear sputum Chest Pain: Positive for Aching and Tightness Narrative Narrative: Patient presents with shortness of breath that has been getting worse over the last 10 days. Patient was diagnosed with COVID-19 approximately 8 days ago. Patient was seen here 3 days ago and was set up with home oxygen. Patient states her breathing is getting worse. Patient states she feels weaker. Patient admits to some dyspnea with exertion. Patient admits to a cough with some clear sputum. Patient admits to subjective chills. Patient also admits to sore throat, rhinorrhea, and ear pain. [facility] Medical History Abnormal echocardiogram Abnormal electrocardiogram Anxiety Ascending aortic aneurysm Diverticulitis Essential hypertension Hyperlipidemia Non-rheumatic tricuspid valve insufficiency Nonrheumatic aortic valve disorder, unspecified Nonrheumatic mitral valve disorder, unspecified Thoracic aneurysm without mention of rupture Tricuspid insufficiency Valvular heart disease Home Medications lorazepam 0.5 mg PO DAILY PRN PRN 06/07/15 [History Last Taken Unknown] cholecalciferol (vitamin D3) 5,000 unit PO DAILY 03/24/16 [History Last Taken 10/11/17] magnesium 300 mg PO DAILY 03/24/16 [History Last Taken 10/11/17 08:00] vitamin B complex 1 ea PO DAILY 03/24/16 [History Last Taken 10/11/17 08:00] multivitamin with folic acid 1 tab PO DAILY 06/17/17 [History Last Taken 10/11/17 08:00] trazodone 50 mg tablet 100 mg PO QHS tab 01/29/19 [History Last Taken Unknown] metoprolol succinate 100 mg tablet,extended release 24 hr 50 mg PO DAILY #90 tab 03/10/21 [Rx Last Taken Unknown] losartan 50 mg tablet 50 mg PO DAILY #30 tab 03/11/21 [Rx Last Taken Unknown] atorvastatin 10 mg tablet 10 mg PO QHS 04/18/21 [History Last Taken Unknown] meloxicam 15 mg tablet 15 mg PO DAILY 04/18/21 [History Last Taken Unknown] omeprazole magnesium 20 mg tablet,delayed release 20 mg PO DAILY 04/18/21 [History Last Taken Unknown] azithromycin [Zithromax] 250 mg PO DAILY 4 Days #4 tab 05/26/21 [Rx Last Taken Unknown] dexamethasone [Decadron] 6 mg PO DAILY 7 Days #7 tab 05/26/21 [Rx Last Taken Unknown] Allergy/AdvReac Type Severity Reaction Status Date / Time oxycodone Allergy Swelling Verified 05/28/21 13:32 hydromorphone [From Dilaudid] AdvReac Other Verified 05/28/21 13:32 nabumetone [From Relafen] AdvReac Nausea Verified 05/28/21 13:32 Sulfa (Sulfonamide AdvReac Nausea Verified 05/28/21 13:32 Antibiotics) tramadol HCl [From Ultram] AdvReac Nausea Verified 05/28/21 13:32 Family History Father CAD (coronary artery disease) Mother aneursym Surgical History History of colon surgery (~10/2017) History of hernia repair Social History Smoking Status: Never smoker alcohol intake: never substance use type: does not use caffeine: Yes Type: tea Number of servings: 1 what type of physical activity do you participate in: walking frequency: daily duration: < 15 minutes/day seatbelt use: always do you feel safe at home: Yes ROS ROS ED Constitutional Constitutional ED: Reports chills; Denies fever(s) Eyes Eyes: Denies blurry vision or change in vision ENT ENT ED: Reports ear pain, rhinorrhea and sore throat Cardiovascular Cardiovascular: Reports chest pain; Denies palpitations Respiratory/Chest Respiratory/Chest: Reports cough and dyspnea Gastrointestinal Gastrointestinal: Denies nausea or vomiting Genitourinary Genitourinary ED: Denies dysuria or hematuria Musculoskeletal Musculoskeletal: Reports back pain; Denies neck pain Integumentary Denies abscess or rash Neurologic Neurologic: Denies headache(s) or weakness Allergic/Immunologic Allergic/Immunologic ED: Denies mouth swelling or urticaria EXAM Physical Exam Const Vital Signs: 05/28/21 12:57 05/28/21 13:25 05/28/21 13:50 Temperature 97.6 F L 98.6 F Temperature Source Temporal Oral Pulse Rate 73 67 Respiratory Rate 16 18 Respiratory Effort Short of Breath Labored Respiratory Depth Shallow Respiratory Pattern Tachypnea Blood Pressure 125/83 H 134/81 H Blood Pressure Mean 97 98 Pulse Ox 97 95 Oxygen Delivery Method Non-Rebreather Nasal Cannula Nasal Cannula Oxygen Flow Rate (L/min) 12 10 5 05/28/21 14:13 05/28/21 15:13 Temperature 98.9 F 98 F Temperature Source Oral Temporal Pulse Rate 65 66 Respiratory Rate 20 H 27 H Respiratory Effort Respiratory Depth Respiratory Pattern Blood Pressure 115/77 110/67 Blood Pressure Mean 89 81 Pulse Ox 95 Oxygen Delivery Method Nasal Cannula Nasal Cannula Oxygen Flow Rate (L/min) 5 Positive well nourished and well developed General Appearance ED: well developed HEENT Reports moist mucous membranes Neck supple and no JVD Resp normal respiratory effort Auscultation: diminished lung sounds Cardio regular rate and regular rhythm GI non-tender and non-distended Auscultation: normoactive bowel sounds Palpation: soft Neuro oriented x3, CN's II-XII intact bilaterally and no sensory deficits noted Sensorium / Orientation: alert Motor Exam: strength 5/5 throughout Psych mental status grossly normal MDM MDM MDM Narrative Medical decision making narrative: Portable chest x-ray was obtained. There is 1 view. On my interpretation, there is bilateral lower lobe infiltrates that are worse compared to previous x-ray dated 05/26/2021. Bony thorax is normal. There is no cardiomegaly. Radiologist also interpreted the x-ray and agrees. CBC shows a leukocytosis of 12.9. Comprehensive metabolic profile was within normal limits. Patient was given 6 puffs of an albuterol inhaler here. Patient was given Tylenol. Patient was given a dose of dexamethasone. Patient was tried on home oxygen. Patient is feeling weaker. Because of this, hospitalist was contacted. He will admit the patient to his service. Patient understood and was agreeable with the plan. All questions were answered. Lab Data Attestation: I reviewed the patient's lab results. Labs: Laboratory Results - last 24 hr 05/28/21 05/28/21 05/28/21 15:05 15:05 15:05 WBC 12.9 H RBC 4.40 Hgb 13.8 Hct 40.9 MCV 93.0 MCH 31.4 MCHC 33.7 RDW Std Deviation 43.0 RDW Coeff of Roshan 12.4 Plt Count 180 MPV 11.0 Immature Gran % (Auto) 0.600 Neut % (Auto) 83.3 H Lymph % (Auto) 9.6 L Barbour % (Auto) 6.3 Eos % (Auto) 0.0 Baso % (Auto) 0.2 Absolute Neuts (auto) 10.8 H Absolute Lymphs (auto) 1.24 Nucleated RBC % 0 Sodium 136 Potassium 3.9 Chloride 104 Carbon Dioxide 26.0 Anion Gap 6 BUN 23 H Creatinine 0.70 Estim Creat Clear Calc 82.98 Est GFR (MDRD) Af Amer 110 Est GFR (MDRD) Non-Af 91 BUN/Creatinine Ratio 33.1 H Glucose 100 Lactic Acid 1.2 Calcium 9.0 Total Bilirubin 0.50 AST 35 ALT 28 Alkaline Phosphatase 90 Total Protein 7.0 Albumin 3.0 L Globulin 4.0 Albumin/Globulin Ratio 0.8 L Radiography Chest X-Ray - ED: 1 View, Read by Radiologist, Right Infiltrate and Left Infiltrate Treatment and Re-Evaluation Vital Sign Attestation:: Vital signs were reviewed prior to admission. Patient is slightly tachypneic at 27. Remaining vital signs are stable. Discharge Plan Dx/Rx/DC Orders Clinical Impression: COVID-19, Hypoxia Disposition Disposition: [facility]
--- NOTE | 2021-05-28 15:44 | EKG12_ITS ---
Test Reason : CP Blood Pressure : / mmHG Vent. Rate : 058 BPM Atrial Rate : 058 BPM P-R Int : 148 ms QRS Dur : 088 ms QT Int : 460 ms P-R-T Axes : 028 -06 021 degrees QTc Int : 451 ms Sinus bradycardia Poor R wave progression Confirmed by KIARA BENDER, JAM ([id number]), society editor CAMERON VUONG ([id number]) on 05/30/2021 1:28:46 PM Referred By: CAROLINE Confirmed By:JAM CRAIG MD
[2021-05-28 15:59] LABS: Lactic Acid 1.2 mmol/L (0.4-1.9)
[2021-05-28] MEDS: Lactated Ringers 1,000 ML 999 ML IV (16:55)
[2021-05-28 17:01] LABS: Magnesium 2.2 mg/dL (1.6-2.6)
--- NOTE | 2021-05-28 17:16 | HP.PCM.HOS_ITS ---
HPI - General General Date of Admission: 05/28/21 HPI Narrative BEAN BURCH, is a 61 F with multiple comorbidities as listed below went to failure on 05/15 and then started having symptoms Generalized weakness, aches and pain and then high fever 103 Fahrenheit after 2 days. She also had loose stool, diarrhea about 2-4 times daily. She tested COVID-19 positive on 05/20. She came to ER on 05/26 and was given Decadron and azithromycin and was discharged on 2 L of oxygen. Her shortness of breath has gotten worse to the point where she is short of breath on rest, tachypneic and currently requires 5 L of oxygen. Chest x-ray shows bilateral infiltrates. Twelve-lead EKG normal sinus rhythm 66 bpm, QTC 436 ms. She denies chronic lung disease. History of smoking intermittently for about 5 years less than a pack in her 20s. Denies any coronary artery disease but has valvular heart disease. She also has thoracic aortic aneurysm Has history of bilateral upper extremity DVT after PICC line in the past. Denies family history of hypercoagulable disorder. [facility], [facility] Medical History Abnormal echocardiogram Abnormal electrocardiogram Anxiety Ascending aortic aneurysm Diverticulitis Essential hypertension Hyperlipidemia Non-rheumatic tricuspid valve insufficiency Nonrheumatic aortic valve disorder, unspecified Nonrheumatic mitral valve disorder, unspecified Thoracic aneurysm without mention of rupture Tricuspid insufficiency Valvular heart disease Home Medications lorazepam 0.5 mg PO DAILY PRN PRN 06/07/15 [History Last Taken Unknown] cholecalciferol (vitamin D3) 5,000 unit PO DAILY 03/24/16 [History Last Taken 10/11/17] magnesium 300 mg PO DAILY 03/24/16 [History Last Taken 10/11/17 08:00] vitamin B complex 1 ea PO DAILY 03/24/16 [History Last Taken 10/11/17 08:00] multivitamin with folic acid 1 tab PO DAILY 06/17/17 [History Last Taken 10/11/17 08:00] trazodone 50 mg tablet 100 mg PO QHS tab 01/29/19 [History Last Taken Unknown] metoprolol succinate 100 mg tablet,extended release 24 hr 50 mg PO DAILY #90 tab 03/10/21 [Rx Last Taken Unknown] losartan 50 mg tablet 50 mg PO DAILY #30 tab 03/11/21 [Rx Last Taken Unknown] atorvastatin 10 mg tablet 10 mg PO QHS 04/18/21 [History Last Taken Unknown] meloxicam 15 mg tablet 15 mg PO DAILY 04/18/21 [History Last Taken Unknown] omeprazole magnesium 20 mg tablet,delayed release 20 mg PO DAILY 04/18/21 [History Last Taken Unknown] azithromycin [Zithromax] 250 mg PO DAILY 4 Days #4 tab 05/26/21 [Rx Last Taken Unknown] dexamethasone [Decadron] 6 mg PO DAILY 7 Days #7 tab 05/26/21 [Rx Last Taken Unknown] Allergy/AdvReac Type Severity Reaction Status Date / Time oxycodone Allergy Swelling Verified 05/28/21 13:32 hydromorphone [From Dilaudid] AdvReac Other Verified 05/28/21 13:32 nabumetone [From Relafen] AdvReac Nausea Verified 05/28/21 13:32 Sulfa (Sulfonamide AdvReac Nausea Verified 05/28/21 13:32 Antibiotics) tramadol HCl [From Ultram] AdvReac Nausea Verified 05/28/21 13:32 Family History Father CAD (coronary artery disease) Mother aneursym Surgical History History of colon surgery (~10/2017) History of hernia repair Social History Smoking Status: Never smoker alcohol intake: never substance use type: does not use caffeine: Yes Type: tea Number of servings: 1 what type of physical activity do you participate in: walking frequency: daily duration: < 15 minutes/day seatbelt use: always do you feel safe at home: Yes ROS ROS Narrative Constitutional: Reports fatigue and weakness, dyspnea at rest HEENT: Reports systems reviewed and no addt'l complaints, except as documented Respiratory/Chest: As mentioned in HPI Gastrointestinal: Nausea, loss of appetite and diarrhea. Denies coffee ground emesis, hematemesis or vomiting Genitourinary: Denies burning urination or new urinary tract symptoms Musculoskeletal: Reports joint pain and limited range of motion Neurologic: Denies seizure-like activity skin: No ulcer. No rash Endocrinology: Reports systems reviewed and no addt'l complaints, except as documented Hematologic/Lymphatic: History of DVT in both upper extremities after PICC line during surgery in the past. Reports systems reviewed and no addt'l complaints, except as documented Rest 12 ROS are negative except as mentioned in HPI Vital Signs Vital Signs Vital Signs: 05/28/21 12:57 05/28/21 13:25 05/28/21 13:50 Temperature 97.6 F L 98.6 F Temperature Source Temporal Oral Pulse Rate 73 67 Respiratory Rate 16 18 Respiratory Effort Short of Breath Labored Respiratory Depth Shallow Respiratory Pattern Tachypnea Blood Pressure 125/83 H 134/81 H Blood Pressure Mean 97 98 Pulse Ox 97 95 Oxygen Delivery Method Non-Rebreather Nasal Cannula Nasal Cannula Oxygen Flow Rate (L/min) 12 10 5 05/28/21 14:13 05/28/21 15:13 05/28/21 16:21 Temperature 98.9 F 98 F 98.8 F Temperature Source Oral Temporal Oral Pulse Rate 65 66 67 Respiratory Rate 20 H 27 H 20 H Respiratory Effort Respiratory Depth Respiratory Pattern Blood Pressure 115/77 110/67 104/65 Blood Pressure Mean 89 81 78 Pulse Ox 95 94 Oxygen Delivery Method Nasal Cannula Nasal Cannula Nasal Cannula Oxygen Flow Rate (L/min) 5 5 Weight Weight: 175 lb Body Mass Index (BMI) 26.6 Physical Exam Narrative General: Alert, Oriented x3, Cooperative HEENT: Atraumatic, PERRLA, EOMI, Normocephalic Oral: Oral mucosa is dry no Gingival or Mucosal Lesions/ Ulcerations Neck: Supple, No JVD, Negative Carotid Bruits Lungs: Air entry diminished in bilateral lung bases. Bilateral crepitations. Tachypnea and hypoxia. Cardiovascular: Regular rate, Regular Rhythm, Normal S1, Normal S2, LLSB systolic murmur. Abdomen: Bowel Sounds Present, Soft, Non Tender, Non-Distended : No renal angle tenderness. No suprapubic tenderness. Extremities: No edema, Capillary Refill Less than 3 Seconds Skin: No rashes, No breakdown Musculoskeletal: No Tenderness to Palpation of Joints or Extremities Neurological: Cranial nerves II-XII grossly intact, DTR 2+/4 and Symmetrical, Neuro grossly intact Psych/Mental Status: Flat affect. Results Lab / Micro Data Result Diagrams: 05/28/21 15:05 05/28/21 15:05 Labs: Laboratory Results - last 24 hr 05/28/21 14:15: COVID-19 (MICHELLE) Detected 05/28/21 15:05: WBC 12.9 H, RBC 4.40, Hgb 13.8, Hct 40.9, MCV 93.0, MCH 31.4, MCHC 33.7, RDW Std Deviation 43.0, RDW Coeff of Roshan 12.4, Plt Count 180, MPV 11.0, Immature Gran % (Auto) 0.600, Neut % (Auto) 83.3 H, Lymph % (Auto) 9.6 L, Geary % (Auto) 6.3, Eos % (Auto) 0.0, Baso % (Auto) 0.2, Absolute Neuts (auto) 10.8 H, Absolute Lymphs (auto) 1.24, Nucleated RBC % 0 05/28/21 15:05: Sodium 136, Potassium 3.9, Chloride 104, Carbon Dioxide 26.0, Anion Gap 6, BUN 23 H, Creatinine 0.70, Estim Creat Clear Calc 82.98, Est GFR (MDRD) Af Amer 110, Est GFR (MDRD) Non-Af 91, BUN/Creatinine Ratio 33.1 H, Glucose 100, Calcium 9.0, Total Bilirubin 0.50, AST 35, ALT 28, Alkaline Phosphatase 90, Total Protein 7.0, Albumin 3.0 L, Globulin 4.0, Albumin/Globulin Ratio 0.8 L 05/28/21 15:05: Lactic Acid 1.2 05/28/21 15:05: Magnesium 2.2 Radiology Impression Chest X-Ray 05/28/21 14:45 IMPRESSION: Unfavorable change. Worse right and new left pulmonary infiltrates. Electronically Signed: Han Torre MD ([place]) at 16:20 EDT , Service support , Assessment & Plan Assessment/Plan (1) COVID-19: PLAN: 1. Acute hypoxic respiratory failure secondary to bilateral COVID- 19 pneumonia: Patient is being admitted on monitored bed. Patient symptoms started on 05/17 therefore 11 days since onset of symptoms. Patient's and son have COVID-19. Continue Decadron. Out of window for remdesivir. Continue high flow oxygen and uptitrate, NIPPV as needed to keep pulse ox more than 90%. Inflammatory markers ordered. CT angiogram chest ordered. Lactic acid 1.2. Magnesium 2.2. Mild leukocytosis with leukopenia. COVID-19 RT-PCR positive. 2. Thoracic aortic aneurysm: As per last CT scan in September 2019 mild anemia dilatation of ascending aorta at 4.46 cm. No aortic dissection. Follows Dr. Menendez, last visit April 18, 2021. Last echo in February 2019 shows EF 55% mild MR, 1-2+ TR, mild to moderate AI, mild ascending aortic order. RVSP 24 mmHg. Last nuclear stress test in February 2019 reported normal. EF 66% Continue atorvastatin, losartan, metoprolol, magnesium. 3. Hypertension: Blood pressure is controlled 4. History of recurrent sigmoid diverticulitis, last admission in October 2017, 5. Chronic back pain and DJD in 6. Anxiety Living will/advanced directive/end of life care: Patient does not have living will or advanced directive. After discussion of benefits/risks procedures involved with full code, DNR CC arrest and DNR CC, the patient opted for full code. Patient does want artificial life support including intubation, tube feed, ventilator and/chest compression, central venous catheter, vasopressor and DC shock if needed Total time spent in [id number] encounter in discussion of advanced di rective 16 minutes. Laboratory Results 05/28/21 14:15: COVID-19 (MICHELLE) Detected 05/28/21 15:05: WBC 12.9 H, RBC 4.40, Hgb 13.8, Hct 40.9, MCV 93.0, MCH 31.4, MCHC 33.7, RDW Std Deviation 43.0, RDW Coeff of Roshan 12.4, Plt Count 180, MPV 11.0, Immature Gran % (Auto) 0.600, Neut % (Auto) 83.3 H, Lymph % (Auto) 9.6 L, Geary % (Auto) 6.3, Eos % (Auto) 0.0, Baso % (Auto) 0.2, Absolute Neuts (auto) 10.8 H, Absolute Lymphs (auto) 1.24, Nucleated RBC % 0 05/28/21 15:05: Sodium 136, Potassium 3.9, Chloride 104, Carbon Dioxide 26.0, Anion Gap 6, BUN 23 H, Creatinine 0.70, Estim Creat Clear Calc 82.98, Est GFR (MDRD) Af Amer 110, Est GFR (MDRD) Non-Af 91, BUN/Creatinine Ratio 33.1 H, Glucose 100, Calcium 9.0, Total Bilirubin 0.50, AST 35, ALT 28, Alkaline Phosphatase 90, Total Protein 7.0, Albumin 3.0 L, Globulin 4.0, Albumin/Globulin Ratio 0.8 L 05/28/21 15:05: Lactic Acid 1.2 05/28/21 15:05: Magnesium 2.2 Charges/Coding Visit Charges Inpatient E&M: 27221 Init Hosp L3 Procedures Hospitalists Procedures: 36836 Advncd Care Plan 30 Min
--- NOTE | 2021-05-28 17:33 | CT_ITS ---
STUDY: CTA CHEST REASON FOR EXAM: Female, 61 years old. COVID with high clinical suspicion for pulmonary embolism RADIATION DOSAGE (If Supplied By Facility): CTDIvol = ( 13.28 ) mGy, DLP = ( 397.09 ) mGycm TECHNIQUE: The examination was performed with the intravenous administration of IV 100mL Isovue-370. Post-processing of the angiographic images was performed, with multiplanar reformation and 3D reconstruction. Individualized dose optimization techniques were used for this CT. COMPARISON: None. FINDINGS: Normal enhancement of the main pulmonary artery and right and left pulmonary arteries. Normal enhancement of the bilateral peripheral pulmonary arteries. There is no demonstrated pulmonary embolism. Ectasia of the ascending thoracic aorta axial diameter measuring up to 4.2 cm. There is no demonstrated aortic dissection. Normal heart and pericardium. Normal mediastinum. Normal hilar regions. Mild bronchiectasis. The lungs are well expanded. Multilobar peripheral groundglass opacities and consolidation. No cavitating process. Normal pleura. Normal chest wall structures. There are degenerative changes of thoracic spine. Normal visualized upper abdomen. CT/CTA Chest W/WO Contrast IMPRESSION: 1. No central or segmental pulmonary embolism. 2. Multifocal infiltrates with features commonly reported with COVID pneumonia. Electronically Signed: Han Torre MD ([place]) at 18:38 EDT , Service support ,
[2021-05-28 17:54] LABS: CPK Total, Creatine Kinase 128 U/L (26-192); LDH 324 U/L (84-246); Procalcitonin 0.04 ng/mL (0.00-0.09); Troponin-I HS 8 pg/mL (3.0-54.0)
[2021-05-28 17:59] LABS: Fibrinogen 533 mg/dl (203-444); Prothrombin Time (Protime)PT. 12.6 SECONDS (11.7-14.9)
[2021-05-28 18:04] LABS: D-Dimer Quantitative (DVT/PE) 1.02 FEU/ug/m (0.27-0.49)
--- NOTE | 2021-05-28 18:34 | PCS.PANDOC ---
PANDEMIC DOCUMENTATION INITIATED: Date: 04/18/2021 Time: 190
[2021-05-28 18:44] LABS: BNP,B-Type NATRIURETIC PEPTIDE 71.8 pg/mL (0-100)
[2021-05-28] MEDS: Enoxaparin 30 MG/0.3 ML Syringe SC (21:44)
[2021-05-28] MEDS: traZODone 100 MG Tablet PO (21:47)
[2021-05-28] MEDS: Atorvastatin Calcium 10 MG Tablet PO (21:47)
[2021-05-29] VITALS (8 sets, daily range): BP systolic 108–136; BP diastolic 65–80; PULSE 60–91; RESP 18–24; TEMP 36.6–36.8; O2SAT 9–94
[2021-05-29 07:21] LABS: Absolute Lymphocyte Count 0.79 X10^3/uL (0.83-4.51); Absolute Neutrophil Count 5.5 X10^3/uL (2.0-7.7); Basophil# 0.01 X10^3/uL; Basophil% 0.1 % (0-1); Hematocrit 37.1 % (37-47); Hemoglobin 12.6 g/dL (12.0-15.0); Lymphocyte # 0.79 X10^3/ul (0.83-4.51); Lymphocyte % 11.5 % (19-41); Mean Corpuscular Hgb 31.4 pg (27.0-32.0); Mean Corpuscular Volume 92.5 fL (81-99); Mean Platelet Vol. 11.5 fl (6.2-12.0); Monocyte# 0.54 X10^3/uL; Monocyte% 7.9 % (0-10); NRBC Flagged by Analyzer 0 % (0-5); Neutrophil # 5.45 X10^3/uL (2.7-7.7); Neutrophil % 79.5 % (47-70); Platelet Count 176 K/mm3 (150-450); RBC Distribution Width CV 12.5 % (11.6-14.6); RBC Distribution Width SD 42.5 fl (35.1-43.9); Red Blood Count 4.01 M/mm3 (4.2-5.4); White Blood Count 6.9 K/mm3 (4.4-11.0)
[2021-05-29 08:00] LABS: ALB/GLOB Ratio 0.7 RATIO (0.9-2.4); AST(SGOT) 27 U/L (15-37); Alanine Aminotransfer ALT/SGPT 26 U/L (13-56); Albumin, Serum 2.5 g/dL (3.2-5.0); Alkaline Phosphatase 84 U/L (45-117); Anion Gap 10 (5-15); BUN 18 mg/dL (7-18); BUN/Creat Ratio 23.8 RATIO (10-20); Calcium,Total 8.9 mg/dL (8.5-10.1); Chloride 104 mmol/L (98-107); Creatinine, Serum 0.76 mg/dL (0.55-1.02); EST Glomerular Filtration Rate 82 mL/min (>60); Est Glom Filt Rate - Afr Amer 99 mL/min (>60); Estimated Creatinine Clearance 76.43 ml/min; Globulin 3.8 g/dL (2.2-4.2); Glucose 148 mg/dL (74-106); Potassium 4.1 mmol/L (3.5-5.1); Protein, Total 6.3 g/dL (6.4-8.2); Sodium Level 139 mmol/L (136-145)
--- NOTE | 2021-05-29 09:10 | PCM.PN.HOSP ---
Subjective Subjective Patient is a 61-year-old lady who presented with progressive shortness of breath. Symptoms apparently started on 05/17/2021 had been seen in the emergency department sent home on oxygen as well as Decadron presented to the ED with worsening symptoms Objective Data Objective Data Vital Signs: Vital Signs Temp Pulse Resp BP Pulse Ox 98 F 61 20 H 123/65 H 94 05/29/21 03:01 05/29/21 03:01 05/29/21 03:01 05/29/21 03:01 05/29/21 03:04 Oxygen Flow Rate (L/min) 6 Oxygen Delivery Method Nasal Cannula Weight: 82.1 kg Body Mass Index (BMI) 27.5 Intake & Output: Intake and Output for Last 24 Hours 05/27/21 05/28/21 05/29/21 23:59 23:59 23:59 Intake Total 1000 / 1440 540 / 540 Balance 1000 / 1440 540 / 540 Lab / Micro Data Result Diagrams: 05/29/21 06:29 05/29/21 06:29 Labs: Laboratory Results - last 24 hr 05/28/21 14:15: COVID-19 (MICHELLE) Detected 05/28/21 15:05: WBC 12.9 H, RBC 4.40, Hgb 13.8, Hct 40.9, MCV 93.0, MCH 31.4, MCHC 33.7, RDW Std Deviation 43.0, RDW Coeff of Roshan 12.4, Plt Count 180, MPV 11.0, Immature Gran % (Auto) 0.600, Neut % (Auto) 83.3 H, Lymph % (Auto) 9.6 L, [place] % (Auto) 6.3, Eos % (Auto) 0.0, Baso % (Auto) 0.2, Absolute Neuts (auto) 10.8 H, Absolute Lymphs (auto) 1.24, Nucleated RBC % 0 05/28/21 15:05: Sodium 136, Potassium 3.9, Chloride 104, Carbon Dioxide 26.0, Anion Gap 6, BUN 23 H, Creatinine 0.70, Estim Creat Clear Calc 82.98, Est GFR (MDRD) Af Amer 110, Est GFR (MDRD) Non-Af 91, BUN/Creatinine Ratio 33.1 H, Glucose 100, Calcium 9.0, Total Bilirubin 0.50, AST 35, ALT 28, Alkaline Phosphatase 90, Total Protein 7.0, Albumin 3.0 L, Globulin 4.0, Albumin/Globulin Ratio 0.8 L 05/28/21 15:05: Lactic Acid 1.2 05/28/21 15:05: Magnesium 2.2 05/28/21 15:05: Lactate Dehydrogenase 324 H, Total Creatine Kinase 128, Troponin I High Sens 8, C-React Prot Ext Range 14.00 H 05/28/21 15:05: Procalcitonin 0.04 05/28/21 15:05: B-Natriuretic Peptide 71.8 05/28/21 17:12: PT 12.6, INR 1.0, Fibrinogen 533 H, D-Dimer Quant (PE/DVT) 1.02 H* 05/29/21 06:29: WBC 6.9, RBC 4.01 L, Hgb 12.6, Hct 37.1, MCV 92.5, MCH 31.4, MCHC 34.0, RDW Std Deviation 42.5, RDW Coeff of Roshan 12.5, Plt Count 176, MPV 11.5, Immature Gran % (Auto) 1.000 H, Neut % (Auto) 79.5 H, Lymph % (Auto) 11.5 L, [place] % (Auto) 7.9, Eos % (Auto) 0.0, Baso % (Auto) 0.1, Absolute Neuts (auto) 5.5, Absolute Lymphs (auto) 0.79 L, Nucleated RBC % 0 05/29/21 06:29: Sodium 139, Potassium 4.1, Chloride 104, Carbon Dioxide 25.0, Anion Gap 10, BUN 18, Creatinine 0.76, Estim Creat Clear Calc 76.43, Est GFR (MDRD) Af Amer 99, Est GFR (MDRD) Non-Af 82, BUN/Creatinine Ratio 23.8 H, Glucose 148 H, Calcium 8.9, Total Bilirubin 0.30, AST 27, ALT 26, Alkaline Phosphatase 84, Total Protein 6.3 L, Albumin 2.5 L, Globulin 3.8, Albumin/Globulin Ratio 0.7 L Micro: Microbiology 05/28/21 19:20 Urine, Clean Catch Legionella Antigen - Final 05/28/21 19:20 Urine, Clean Catch Streptococcus pneumoniae Antigen (M - Final Radiography Diagnostic Testing: Radiology Impression Chest X-Ray 05/28/21 14:45 IMPRESSION: Unfavorable change. Worse right and new left pulmonary infiltrates. Electronically Signed: Han Torre MD (Brooks) at 16:20 EDT , Service support , Chest CTA 05/28/21 17:33 IMPRESSION: 1. No central or segmental pulmonary embolism. 2. Multifocal infiltrates with features commonly reported with COVID pneumonia. Electronically Signed: Han Torre MD (Brooks) at 18:38 EDT , Service support , Physical Exam Narrative GENERAL: Appears ill looking HEENT: Atraumatic; EYES; Anicteric, Normal Conjunctiva NECK; supple, normal thyroid, RESPIRATORY: Diminished to auscultation CARDIOVASCULAR: Regular S1 S2, GI: soft, normoactive bowel sounds, : No Renal angle tenderness; EXTREMITIES: No edema, no clubbing, MUSCULOSKELETAL: no muscle waisting NEURO: Awake; no lateralizing signs. SKIN: No Rash PSYCH; Flat affect Assessment & Plan Assessment/Plan (1) COVID-19: PLAN: Patient is a 61-year-old lady who presented with progressive shortness of breath. Symptoms apparently started on 05/17/2021 had been seen in the emergency department sent to on oxygen as well as Decadron presented to the ED with worsening symptoms 1. Acute hypoxic respiratory failure ?Secondary to SARS-CoV-2 pneumonia. Patient has been admitted to regular nursing floor had been started on Decadron from the ED this was continued. Patient was seen to be outside the window for remdesivir. Due to her increasing oxygen demand as well as increasing markers of inflammation consultation was placed to infectious disease for consideration for parasites in the 2. Dyslipidemia -Patient is on statin therapy (atorvastatin), continued at home dose 3. Hypertension - Blood pressure controlled, home medications continued with dose adjustment as needed 4. Degenerative joint disease with chronic back pain ?Pain meds as needed 5. GERD ?Patient is on PPI?omeprazole continue 6. History of thoracic aortic aneurysm ?CT in September 2019 demonstrated dilatation of ascending aorta at 4.46 cm. Patient to follow-up with cardiology for serial monitoring 7. DVT prophylaxis ?Enoxaparin Patient is currently on vaccinated was advised to get the vaccination following her recovery (reluctant though) Charges/Coding Visit Charges Inpatient E&M: 57364 Subs Hosp L3
[2021-05-29] MEDS: Vitamin B Comp W-C Capsule 1 CAP PO (09:17)
[2021-05-29] MEDS: Losartan Potassium 50 MG Tablet PO (09:17)
[2021-05-29] MEDS: Metoprolol(XL)Succ 50 MG Tablet PO (09:17)
[2021-05-29] MEDS: Cholecalciferol (VIT D3) 25 MCG TABLET (1,000 UNITS) 125 MCG PO (09:17)
[2021-05-29] MEDS: Magnesium Chloride 64 MG Delay Rel.Tablet 128 MG PO (09:17)
[2021-05-29] MEDS: Pantoprazole Sodium 20 MG Tablet PO (09:17)
[2021-05-29] MEDS: 0.9% Saline Lock 10 ML Syringe IV (09:18)
[2021-05-29] MEDS: Azithromycin 250 MG Tablet PO (09:18)
[2021-05-29] MEDS: Enoxaparin 30 MG/0.3 ML Syringe SC ×2 (09:18→21:25)
[2021-05-29] MEDS: dexAMETHasone 4 MG/ML Vial 6 MG IV (09:18)
[2021-05-29] MEDS: Multivitamins,Ther W-Minerals Tablet 1 TABLET PO (09:18)
[2021-05-29] MEDS: traZODone 100 MG Tablet PO (21:25)
[2021-05-29] MEDS: Atorvastatin Calcium 10 MG Tablet PO (21:25)
[2021-05-29] MEDS: LORazepam 0.5 MG Tablet PO (21:28)
--- NOTE | 2021-05-29 21:46 | NURSING ---
pt complaint of CP, Dr. Barr notified and ordered troponins and stat EKG. respiratory called and notified and said they are in a stat OB and someone will be up shortly
[2021-05-29 22:45] LABS: Troponin-I HS 7 pg/mL (3.0-54.0)
[2021-05-30] VITALS (11 sets, daily range): BP systolic 105–131; BP diastolic 70–75; PULSE 62–90; RESP 18–24; TEMP 36.3–37.2; O2SAT 9–96
[2021-05-30] MEDS: Albuterol 2.5 MG/3 ML VIAL.NEB. INHALATION (03:21)
[2021-05-30 07:06] LABS: Absolute Lymphocyte Count 1.29 X10^3/uL (0.83-4.51); Absolute Neutrophil Count 8.9 X10^3/uL (2.0-7.7); Basophil# 0.02 X10^3/uL; Basophil% 0.2 % (0-1); Hemoglobin 12.6 g/dL (12.0-15.0); Lymphocyte # 1.29 X10^3/ul (0.83-4.51); Lymphocyte % 11.4 % (19-41); Mean Corp Hgb Conc 33.2 g/dL (32-36); Mean Corpuscular Hgb 31.3 pg (27.0-32.0); Mean Corpuscular Volume 94.5 fL (81-99); Mean Platelet Vol. 11.2 fl (6.2-12.0); Monocyte# 0.94 X10^3/uL; Monocyte% 8.3 % (0-10); NRBC Flagged by Analyzer 0 % (0-5); Neutrophil # 8.93 X10^3/uL (2.7-7.7); Neutrophil % 79.1 % (47-70); Platelet Count 179 K/mm3 (150-450); RBC Distribution Width CV 12.5 % (11.6-14.6); RBC Distribution Width SD 43.4 fl (35.1-43.9); Red Blood Count 4.02 M/mm3 (4.2-5.4); White Blood Count 11.3 K/mm3 (4.4-11.0)
[2021-05-30 07:28] LABS: D-Dimer Quantitative (DVT/PE) 0.71 FEU/ug/m (0.27-0.49)
[2021-05-30 07:54] LABS: ALB/GLOB Ratio 0.6 RATIO (0.9-2.4); AST(SGOT) 19 U/L (15-37); Alanine Aminotransfer ALT/SGPT 24 U/L (13-56); Albumin, Serum 2.5 g/dL (3.2-5.0); Alkaline Phosphatase 84 U/L (45-117); Anion Gap 10 (5-15); BUN 17 mg/dL (7-18); BUN/Creat Ratio 23.2 RATIO (10-20); Calcium,Total 8.5 mg/dL (8.5-10.1); Chloride 103 mmol/L (98-107); Creatinine, Serum 0.73 mg/dL (0.55-1.02); EST Glomerular Filtration Rate 85 mL/min (>60); Est Glom Filt Rate - Afr Amer 103 mL/min (>60); Estimated Creatinine Clearance 79.57 ml/min; Ferritin 725 ng/mL (8-252); Globulin 3.9 g/dL (2.2-4.2); Glucose 88 mg/dL (74-106); Potassium 3.8 mmol/L (3.5-5.1); Protein, Total 6.4 g/dL (6.4-8.2); Sodium Level 137 mmol/L (136-145); Troponin-I HS 8 pg/mL (3.0-54.0)
[2021-05-30 08:52] LABS: Procalcitonin 0.04 ng/mL (0.00-0.09)
[2021-05-30 09:03] LABS: Alkaline Phosphatase 84 U/L (45-117)
[2021-05-30] MEDS: Multivitamins,Ther W-Minerals Tablet 1 TABLET PO (09:39)
[2021-05-30] MEDS: dexAMETHasone 4 MG/ML Vial 6 MG IV (09:39)
[2021-05-30] MEDS: Vitamin B Comp W-C Capsule 1 CAP PO (09:39)
[2021-05-30] MEDS: Enoxaparin 30 MG/0.3 ML Syringe SC (09:40)
[2021-05-30] MEDS: Cholecalciferol (VIT D3) 25 MCG TABLET (1,000 UNITS) 125 MCG PO (09:40)
[2021-05-30] MEDS: Azithromycin 250 MG Tablet PO (09:40)
[2021-05-30] MEDS: Metoprolol(XL)Succ 50 MG Tablet PO (09:40)
[2021-05-30] MEDS: 0.9% Saline Lock 10 ML Syringe IV (09:40)
[2021-05-30] MEDS: Pantoprazole Sodium 20 MG Tablet PO (09:40)
[2021-05-30] MEDS: Magnesium Chloride 64 MG Delay Rel.Tablet 128 MG PO (12:27)
--- NOTE | 2021-05-30 13:36 | CASEMGMT ---
ANNELIESE MOBLEY Assessment: Face to Face with pt for initial transition planning/care coordination assessment. RN ITZ introduced self and role at [facility], pt voices understanding and consents to assessment. Pt is A/O x4 and answers all questions appropriately at this time. Pt sitting up in chair with O2 on in no distress. Care providers, pharmacy, and demographics verified/updated. Admitting Dx: Acute hypoxic failure; COVID 19 PCP: Mayra Specialists: Gemma, cardio; Zoeapkonrad, ortho; Jenelle, neuro; Melida, gen surg Preferred Pharmacy: [facility] Retail Insurance: [employer] Plan, [facility] Prescription Benefit: yes LW/HPOA: Pt denies having a LW/DPOA and denies need for info regarding AD. LNOK: Victoriano Macario, Living Arrangements: Pt lives with in a two story house with three steps to enter. Pt reports being I in ADL's and denies concerns at home. Transportation: Pt drives self and denies concerns with transportation. DME/HHC/SNF: Pt states she has an O2 concentrator that she obtained from [facility] ER from [employer]. Pt states it only goes to 4L. She states she was ordered 2L. Pt is dissatisfied with [employer] at this time and states she would like her O2 concentrator to be picked up. She asks this RN CM to call to request this and states her will be home for them to come. She requests to have [employer] should she need O2 upon dc. Pt has had [facility] HHC in the past and denies previous SNF stays. 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. Pt states her is positive for COVID as well. He is quarantining. Pt orders supplies from [employer] and states family can bring groceries. Pt states she drinks occasionally, approx one glass of wine a month. Pt denies uses of cigarettes, street drugs or illegal drugs. Pt states no concerns with going home at time of dc. Pt states no further concerns/needs. CM to follow. Advised pt to ask CM if any further question/concerns/needs arise, voices understanding. Pt Goal: Home Plan: Home TC to [employer], spoke with Toby. She is aware that pt requests O2 concentrator to be picked up. She states they can do this tomorrow and that it is ok for the patient's to sign for the flower buncher or picker.
--- NOTE | 2021-05-30 15:47 | CON.PCM.ID_ITS ---
Assessment & Plan Assessment/Plan (1) COVID-19: PLAN: Sx started 05/18/21. Unvaccinated. Recommend 20 day isolation from 05/18. Vaccine after out of iso. On dex, will stop azithro. O2 improved. Will follow, thank you (2) Hypoxia: HPI Consult Data Date of Consult: 05/30/21 HPI Narrative HPI Narrative: BEAN BURCH, is a 61 F who presented 05/28 with sx starting 05/18 . C/o fever, chills, headache, sore throat, change in taste, diarrhea, aches. Unvaccinated. also sick, improving. Came to ED, given dex and azithro. Sx worsened, admitted on dex and azithro. Full ROS performed and neg except as noted above. [facility] Medical History Abnormal echocardiogram Abnormal electrocardiogram Anxiety Ascending aortic aneurysm Diverticulitis Essential hypertension Hyperlipidemia Non-rheumatic tricuspid valve insufficiency Nonrheumatic aortic valve disorder, unspecified Nonrheumatic mitral valve disorder, unspecified Thoracic aneurysm without mention of rupture Tricuspid insufficiency Valvular heart disease Home Medications lorazepam 0.5 mg PO DAILY PRN PRN 06/07/15 [History Last Taken Unknown] cholecalciferol (vitamin D3) 5,000 unit PO DAILY 03/24/16 [History Last Taken 10/11/17] magnesium 300 mg PO DAILY 03/24/16 [History Last Taken 10/11/17 08:00] vitamin B complex 1 ea PO DAILY 03/24/16 [History Last Taken 10/11/17 08:00] multivitamin with folic acid 1 tab PO DAILY 06/17/17 [History Last Taken 10/11/17 08:00] trazodone 50 mg tablet 100 mg PO QHS tab 01/29/19 [History Last Taken Unknown] metoprolol succinate 100 mg tablet,extended release 24 hr 50 mg PO DAILY #90 tab 03/10/21 [Rx Last Taken Unknown] losartan 50 mg tablet 50 mg PO DAILY #30 tab 03/11/21 [Rx Last Taken Unknown] atorvastatin 10 mg tablet 10 mg PO QHS 04/18/21 [History Last Taken Unknown] meloxicam 15 mg tablet 15 mg PO DAILY 04/18/21 [History Last Taken Unknown] omeprazole magnesium 20 mg tablet,delayed release 20 mg PO DAILY 04/18/21 [History Last Taken Unknown] azithromycin [Zithromax] 250 mg PO DAILY 4 Days #4 tab 05/26/21 [Rx Last Taken Unknown] dexamethasone [Decadron] 6 mg PO DAILY 7 Days #7 tab 05/26/21 [Rx Last Taken Unknown] Allergy/AdvReac Type Severity Reaction Status Date / Time oxycodone Allergy Swelling Verified 05/28/21 13:32 hydromorphone [From Dilaudid] AdvReac Other Verified 05/28/21 13:32 nabumetone [From Relafen] AdvReac Nausea Verified 05/28/21 13:32 Sulfa (Sulfonamide AdvReac Nausea Verified 05/28/21 13:32 Antibiotics) tramadol HCl [From Ultram] AdvReac Nausea Verified 05/28/21 13:32 Family History Father CAD (coronary artery disease) Mother aneursym Surgical History History of colon surgery (~10/2017) History of hernia repair Social History Smoking Status: Never smoker alcohol intake: never substance use type: does not use caffeine: Yes Type: tea Number of servings: 1 what type of physical activity do you participate in: walking frequency: daily duration: < 15 minutes/day seatbelt use: always do you feel safe at home: Yes Physical Exam Const alert and oriented x3 General Appearance: cooperative Exam Limitations: no limitations HEENT normocephalic and head/scalp atraumatic Eyes PERRL and EOMs intact bilaterally Neck supple and No nodes Resp clear to auscultation bilaterally Auscultation: diminished lung sounds Cardio regular rate and regular rhythm GI normal to inspection, nondistended, normoactive bowel sounds Extremity no clubbing, cyanosis or edema Skin no rashes or lesions noted Neuro CN's II-XII intact bilaterally Lab / Micro Data Result Diagrams: 05/30/21 06:44 05/30/21 06:44 Labs: Laboratory Results - last 24 hr 05/29/21 22:10: Troponin I High Sens 7 05/30/21 06:44: WBC 11.3 H, RBC 4.02 L, Hgb 12.6, Hct 38.0, MCV 94.5, MCH 31.3, MCHC 33.2, RDW Std Deviation 43.4, RDW Coeff of Roshan 12.5, Plt Count 179, MPV 11.2, Immature Gran % (Auto) 1.000 H, Neut % (Auto) 79.1 H, Lymph % (Auto) 11.4 L, [place] % (Auto) 8.3, Eos % (Auto) 0.0, Baso % (Auto) 0.2, Absolute Neuts (auto) 8.9 H, Absolute Lymphs (auto) 1.29, Nucleated RBC % 0 05/30/21 06:44: Sodium 137, Potassium 3.8, Chloride 103, Carbon Dioxide 24.0, Anion Gap 10, BUN 17, Creatinine 0.73, Estim Creat Clear Calc 79.57, Est GFR (MDRD) Af Amer 103, Est GFR (MDRD) Non-Af 85, BUN/Creatinine Ratio 23.2 H, Glucose 88, Calcium 8.5, Ferritin 725 H, Total Bilirubin 0.40, AST 19, ALT 24, Alkaline Phosphatase 84, Troponin I High Sens 8, C-React Prot Ext Range 28.00 H, Total Protein 6.4, Albumin 2.5 L, Globulin 3.9, Albumin/Globulin Ratio 0.6 L 05/30/21 06:44: D-Dimer Quant (PE/DVT) 0.71 H* 05/30/21 06:44: Alkaline Phosphatase 84 05/30/21 06:44: Procalcitonin 0.04 Micro: Microbiology 05/28/21 22:20 Sputum, Expectorated/Coughed Gram Stain - Final 05/28/21 22:20 Sputum, Expectorated/Coughed Respiratory Culture - Preliminary Appears to be normal respiratory tyrone. Further studies to follow.
--- NOTE | 2021-05-30 16:10 | PN.HOSP_ITS ---
Subjective Subjective Patient states that she is feeling a little bit better than she did on admission. No acute complaints at this time. Oxygen had been titrated up to 10 L nasal cannula but has been reduced to 6 L heated high flow nasal cannula with an oxygen saturation of 94 to 96%. Only subjective complaint is a sore throat. Objective Data Objective Data Vital Signs: Vital Signs Temp Pulse Resp BP Pulse Ox 97.3 F L 69 18 105/70 96 05/30/21 14:38 05/30/21 15:47 05/30/21 14:38 05/30/21 14:38 05/30/21 15:25 Oxygen Flow Rate (L/min) 6 Oxygen Delivery Method Nasal Cannula Weight: 82.1 kg Body Mass Index (BMI) 27.5 Intake & Output: Intake and Output for Last 24 Hours 05/28/21 05/29/21 05/30/21 23:59 23:59 23:59 Intake Total 1000 / 1440 1860 / 2060 1300 / 1300 Balance 1000 / 1440 1860 / 2060 1300 / 1300 Lab / Micro Data Result Diagrams: 05/30/21 06:44 05/30/21 06:44 Labs: Laboratory Results - last 24 hr 05/29/21 22:10: Troponin I High Sens 7 05/30/21 06:44: WBC 11.3 H, RBC 4.02 L, Hgb 12.6, Hct 38.0, MCV 94.5, MCH 31.3, MCHC 33.2, RDW Std Deviation 43.4, RDW Coeff of Roshan 12.5, Plt Count 179, MPV 11.2, Immature Gran % (Auto) 1.000 H, Neut % (Auto) 79.1 H, Lymph % (Auto) 11.4 L, [place] % (Auto) 8.3, Eos % (Auto) 0.0, Baso % (Auto) 0.2, Absolute Neuts (auto) 8.9 H, Absolute Lymphs (auto) 1.29, Nucleated RBC % 0 05/30/21 06:44: Sodium 137, Potassium 3.8, Chloride 103, Carbon Dioxide 24.0, Anion Gap 10, BUN 17, Creatinine 0.73, Estim Creat Clear Calc 79.57, Est GFR (MDRD) Af Amer 103, Est GFR (MDRD) Non-Af 85, BUN/Creatinine Ratio 23.2 H, Glucose 88, Calcium 8.5, Ferritin 725 H, Total Bilirubin 0.40, AST 19, ALT 24, Alkaline Phosphatase 84, Troponin I High Sens 8, C-React Prot Ext Range 28.00 H, Total Protein 6.4, Albumin 2.5 L, Globulin 3.9, Albumin/Globulin Ratio 0.6 L 05/30/21 06:44: D-Dimer Quant (PE/DVT) 0.71 H* 05/30/21 06:44: Alkaline Phosphatase 84 05/30/21 06:44: Procalcitonin 0.04 Micro: Microbiology 05/28/21 22:20 Sputum, Expectorated/Coughed Gram Stain - Final 05/28/21 22:20 Sputum, Expectorated/Coughed Respiratory Culture - Preliminary Appears to be normal respiratory tyrone. Further studies to follow. 05/28/21 19:20 Urine, Clean Catch Legionella Antigen - Final 05/28/21 19:20 Urine, Clean Catch Streptococcus pneumoniae Antigen (M - Final Physical Exam Const alert, oriented x3 and no apparent distress Constitutional Narrative: Overweight white female sitting up in bed at the bedside, appears comfortable, nontoxic, watching television and talking on the phone Exam Limitations: no limitations Nutritional Appearance: overweight HEENT head/scalp atraumatic and moist oral mucous membranes HEENT Narrative: No thrush noted Head and Scalp: normocephalic Resp normal respiratory effort, no retractions and no use of accessory muscles Resp Narrative: Mildly diminished but clear Auscultation: Negative for crackles, rales, rhonchi or wheezes Cardio regular rate, regular rhythm, S1 normal heart sound, S2 normal heart sound, no murmurs, no rub, no gallops, no clicks and no JVD GI normal to inspection, nondistended, normoactive bowel sounds, soft to palpation, non-tender and non-distended Extremity no clubbing, cyanosis or edema Peripheral Pulses: Yes pulses 2+ throughout Neuro moves all extremities Sensorium / Orientation: awake and alert Speech: speech normal Psych affect normal Assessment & Plan Assessment/Plan (1) COVID-19: (2) Acute respiratory failure with hypoxia: PLAN: Acute hypoxic respiratory failure secondary to COVID-19 pneumonia -Patient is on day 2 for Decadron -Patient is on day 2 of for remdesivir -Oxygen-currently on 6 L nasal cannula with heated high flow -Titrate as needed to maintain oxygen saturation greater than 92% -Continue pulmonary toilet -Encourage I-S and Acapella -CTA done on admission for an elevated D-dimer showed no PE and multiple bilateral infiltrates consistent with viral pneumonia -Azithromycin was discontinued by ID this afternoon -We will need 20-day isolation from 05/18/2021 with an end date of 06/07/2021 Hyperlipidemia -Continue atorvastatin Vitamin D deficiency -Continue cholecalciferol 5000 units daily Hypertension -Continue losartan -Continue metoprolol GERD -Continue PPI OA -Continue meloxicam -Monitor renal function Insomnia -Continue trazodone DVT prophylaxis -Increase Lovenox to 40 mg twice daily CODE STATUS -Full code Charges/Coding Visit Charges Inpatient E&M: 29746 Subs Hosp L2
[2021-05-30] MEDS: Enoxaparin 40 MG/0.4 ML Syringe SC (20:42)
[2021-05-30] MEDS: traZODone 100 MG Tablet PO (20:42)
[2021-05-30] MEDS: Atorvastatin Calcium 10 MG Tablet PO (20:42)
[2021-05-30] MEDS: LORazepam 0.5 MG Tablet PO (20:43)
[2021-05-31] VITALS (14 sets, daily range): BP systolic 132–150; BP diastolic 71–83; PULSE 45–79; RESP 18–20; TEMP 36.3–36.8; O2SAT 84–97
[2021-05-31 06:19] LABS: Absolute Lymphocyte Count 1.06 X10^3/uL (0.83-4.51); Absolute Neutrophil Count 6.8 X10^3/uL (2.0-7.7); Basophil# 0.02 X10^3/uL; Basophil% 0.2 % (0-1); Hematocrit 36.8 % (37-47); Hemoglobin 12.6 g/dL (12.0-15.0); Lymphocyte # 1.06 X10^3/ul (0.83-4.51); Mean Corp Hgb Conc 34.2 g/dL (32-36); Mean Corpuscular Hgb 31.6 pg (27.0-32.0); Mean Corpuscular Volume 92.2 fL (81-99); Mean Platelet Vol. 11.2 fl (6.2-12.0); NRBC Flagged by Analyzer 0 % (0-5); Neutrophil # 6.81 X10^3/uL (2.7-7.7); Neutrophil % 76.9 % (47-70); Platelet Count 204 K/mm3 (150-450); RBC Distribution Width CV 12.6 % (11.6-14.6); RBC Distribution Width SD 42.6 fl (35.1-43.9); Red Blood Count 3.99 M/mm3 (4.2-5.4); White Blood Count 8.9 K/mm3 (4.4-11.0)
[2021-05-31 06:41] LABS: ALB/GLOB Ratio 0.7 RATIO (0.9-2.4); AST(SGOT) 17 U/L (15-37); Alanine Aminotransfer ALT/SGPT 27 U/L (13-56); Albumin, Serum 2.7 g/dL (3.2-5.0); Alkaline Phosphatase 86 U/L (45-117); Anion Gap 8 (5-15); BUN 18 mg/dL (7-18); BUN/Creat Ratio 28.3 RATIO (10-20); Chloride 104 mmol/L (98-107); Creatinine, Serum 0.64 mg/dL (0.55-1.02); EST Glomerular Filtration Rate 100 mL/min (>60); Est Glom Filt Rate - Afr Amer 121 mL/min (>60); Estimated Creatinine Clearance 90.76 ml/min; Globulin 3.9 g/dL (2.2-4.2); Glucose 114 mg/dL (74-106); Protein, Total 6.6 g/dL (6.4-8.2); Sodium Level 139 mmol/L (136-145)
[2021-05-31] MEDS: Albuterol 2.5 MG/3 ML VIAL.NEB. INHALATION (07:48)
[2021-05-31] MEDS: Phenol/Sodium Phenolate 180ML 3 SPRAY MUCOUS MEM (08:30)
[2021-05-31] MEDS: Enoxaparin 40 MG/0.4 ML Syringe SC (08:31)
[2021-05-31] MEDS: Magnesium Chloride 64 MG Delay Rel.Tablet 128 MG PO (08:31)
[2021-05-31] MEDS: Cholecalciferol (VIT D3) 25 MCG TABLET (1,000 UNITS) 125 MCG PO (08:31)
[2021-05-31] MEDS: Vitamin B Comp W-C Capsule 1 CAP PO (08:32)
[2021-05-31] MEDS: Pantoprazole Sodium 20 MG Tablet PO (08:32)
[2021-05-31] MEDS: Metoprolol(XL)Succ 50 MG Tablet PO (08:32)
[2021-05-31] MEDS: Multivitamins,Ther W-Minerals Tablet 1 TABLET PO (08:32)
[2021-05-31] MEDS: Losartan Potassium 50 MG Tablet PO (08:32)
[2021-05-31] MEDS: dexAMETHasone 4 MG/ML Vial 6 MG IV (08:35)
[2021-05-31] MEDS: LORazepam 0.5 MG Tablet PO (09:00)
--- NOTE | 2021-05-31 15:49 | CASEMGMT ---
Pt qualifies for home O2, referral faxed to [facility] [place] at this time. TC to [facility] [place], spoke with Harleen to make aware of need for portable tanks. She states it will be delivered.
--- NOTE | 2021-05-31 16:24 | DS.PCM_ITS ---
Providers Date of Admission: 05/28/21 Primary Care Physician: Dr. Ganga Nunez MD Consultations 05/28/21 18:07 Consult: Infectious Disease Routine Consulting Provider: Paras Noe Reason for Consult: Covid-19 EMERGENT Consult: No MD Notified: Yes Date Notified: 05/30/21 Time Notified: 07:40 Method of Notification: Text Reason For Visit: ACUTE HYPOXIC FAILURE; COVID19 Diagnosis Discharge Diagnosis (1) COVID-19: Status: Acute Code(s): U07.1 - COVID-19 (2) Acute respiratory failure with hypoxia: Status: Acute Code(s): J96.01 - Acute respiratory failure with hypoxia Medications at Discharge Home Medications cholecalciferol (vitamin D3) 5,000 unit PO DAILY 03/24/16 magnesium 300 mg PO DAILY 03/24/16 vitamin B complex 1 ea PO DAILY 03/24/16 multivitamin with folic acid 1 tab PO DAILY 06/17/17 trazodone 50 mg tablet 100 mg PO QHS tab 01/29/19 metoprolol succinate 100 mg tablet,extended release 24 hr 50 mg PO DAILY #90 tab 03/10/21 losartan 50 mg tablet 50 mg PO DAILY #30 tab 03/11/21 atorvastatin 10 mg tablet 10 mg PO QHS 04/18/21 meloxicam 15 mg tablet 15 mg PO DAILY 04/18/21 omeprazole magnesium 20 mg tablet,delayed release 20 mg PO DAILY 04/18/21 dexamethasone [Decadron] 6 mg PO DAILY 7 Days #7 tab 05/26/21 albuterol sulfate 1 inh INHALATION Q6H PRN #8.5 g 05/31/21 lorazepam 1 mg PO DAILY PRN PRN #18 tab 05/31/21 Hospital Course Operations None Procedures None Summary of Care Provided Minutes Spent on Discharge: 41 Hospital Course: Mrs. Macario is a 61-year-old white female who presented to the emergency department on 05/28/2021 with a chief complaint of shortness of breath . The patient indicated that she started feeling poorly on 05/18/2021 and then tested positive for COVID-19 on 05/20/2021. She presented to the emergency department on 05/26/2021 and was given Decadron and azithromycin and discharged on 2 L of nasal cannula. Her shortness of breath had worsened to the point where she was short of breath at rest, tachypneic, and was requiring 5 L of nasal cannula. Her chest x-ray on admission showed bilateral patchy infiltrates consistent with viral pneumonia. She was admitted to the medical floor with oxygen supplementation and was continued on Decadron. Unfortunately, she was out of the window for dosing of remdesivir. She was maintained on oxygen and r equired a max dose of 10 L nasal cannula but was able to be weaned slowly over the course of the last 24 hours to 4 L nasal cannula at rest. On room air she is 84% and an ambulatory pulse ox was assessed which required her to be on 5 L with ambulation to maintain oxygen saturations greater than 92%. She is okay to be on 4 L at rest. She is quite insistent on going home she states her anxiety has been very problematic here and she notes that she will probably feel better at home. She states that she does have a home pulse oximeter and we discussed the importance of her checking her oxygen saturation periodically and coming back to the hospital if her oxygen saturations dropped below 88% on her supplemental oxygen. She is to continue her home Decadron dosing as was prescribed earlier and will need to maintain isolation until 06/07/2021. She will continue her incentive spirometry, prone lying, as needed albuterol inhaler, Decadron, and a small prescription for Ativan was given as she recently run out and has a virtual visit tomorrow with her new PCP. Again she was instructed to come back if her oxygen saturations dropped below 88% on her supplemental oxygen and indicated she would do so. She is to follow-up with her PCP after she is out of isolation. We did recommend Covid vaccination after she is out of quarantine. Discharge diagnoses: Acute hypoxic respiratory failure COVID-19 pneumonia Hyperlipidemia Vitamin D deficiency Hypertension GERD OA Thoracic aortic aneurysm History of tobacco abuse Valvular heart disease Physical Exam Const alert, oriented x3 and no apparent distress Constitutional Narrative: Overweight white female sitting up in bed at the bedside, appears comfortable but anxious, nontoxic General Appearance: cooperative, comfortable, well kempt and well developed Orientation / Consciousness: awake Exam Limitations: no limitations Nutritional Appearance: overweight HEENT normocephalic, head/scalp atraumatic and moist oral mucous membranes HEENT Narrative: No thrush noted Eyes PERRL, EOMs intact bilaterally and conjunctivae normal Neck no lymphadenopathy and supple Neck Narrative: Trachea midline, no thyroid enlargement Resp normal respiratory effort, no retractions and no use of accessory muscles Resp Narrative: Mildly diminished but clear Auscultation: Negative for crackles, rales, rhonchi or wheezes Cardio regular rate, regular rhythm, S1 normal heart sound, S2 normal heart sound, no murmurs, no rub, no gallops, no clicks and no JVD GI normal to inspection, nondistended, normoactive bowel sounds, soft to palpation, non-tender and non-distended Extremity no clubbing, cyanosis or edema Skin no rashes or lesions noted, no wounds, skin turgor normal and no jaundice Neuro oriented x3, moves all extremities, no focal motor deficits and no sensory deficits noted Sensorium / Orientation: awake and alert Speech: speech normal Psych affect normal Weight / BMI Weight Weight: 82.1 kg Body Mass Index (BMI) 27.5 ABG / Lab / Microbiology Data Result Diagrams: 05/31/21 05:40 05/31/21 05:40 Laboratory: Laboratory Results - last 24 hr 05/31/21 05:40: WBC 8.9, RBC 3.99 L, Hgb 12.6, Hct 36.8 L, MCV 92.2, MCH 31.6, MCHC 34.2, RDW Std Deviation 42.6, RDW Coeff of Roshan 12.6, Plt Count 204, MPV 11.2, Immature Gran % (Auto) 1.900 H, Neut % (Auto) 76.9 H, Lymph % (Auto) 12.0 L, [place] % (Auto) 9.0, Eos % (Auto) 0.0, Baso % (Auto) 0.2, Absolute Neuts (auto) 6.8, Absolute Lymphs (auto) 1.06, Nucleated RBC % 0 05/31/21 05:40: Sodium 139, Potassium 4.0, Chloride 104, Carbon Dioxide 27.0, Anion Gap 8, BUN 18, Creatinine 0.64, Estim Creat Clear Calc 90.76, Est GFR (MDRD) Af Amer 121, Est GFR (MDRD) Non-Af 100, BUN/Creatinine Ratio 28.3 H, Glucose 114 H, Calcium 9.0, Total Bilirubin 0.50, AST 17, ALT 27, Alkaline Phosphatase 86, Total Protein 6.6, Albumin 2.7 L, Globulin 3.9, Albumin/Globulin Ratio 0.7 L Microbiology: Microbiology 05/28/21 22:20 Sputum, Expectorated/Coughed Gram Stain - Final 05/28/21 22:20 Sputum, Expectorated/Coughed Respiratory Culture - Final 05/28/21 14:10 Blood Culture (Wb) - Anticubital Right Blood Culture - Preliminary No growth in 48 hours. 05/28/21 14:00 Blood Culture (Wb) - Anticubital Left Blood Culture - Preliminary No growth in 48 hours. 05/28/21 19:20 Urine, Clean Catch Legionella Antigen - Final 05/28/21 19:20 Urine, Clean Catch Streptococcus pneumoniae Antigen (M - Final D/C Instructions Discharge Diet: Low fat / Low cholesterol Discharge Activity: No Restrictions Return to work on: 06/08/21 Meaningful Use Info Meaningful Use Diagnoses (Choose all that apply): None applicable Discharge Plan Admission Admit Date/Time: 05/28/21 15:53 Primary Reason for Your Visit: Acute hypoxic respiratory failure secondary to COVID-19 Attending Provider: Sara Bermudez Primary Care Provider: Ganga Nunez Consulting Providers: Paras Noe Discharge Orders/Prescriptions Prescriptions: New lorazepam 0.5 mg Tablet 1 mg PO DAILY PRN PRN (Reason: Anxiety) Qty: 18 RF: 0 albuterol sulfate 90 mcg/actuation HFA aerosol inhaler 1 inh inhalation Q6H PRN (Reason: shortness of breath or wheezing) Qty: 8.5 RF: 0 Continued atorvastatin 10 mg tablet 10 mg PO QHS RF: 0 omeprazole magnesium 20 mg tablet,delayed release (DR/EC) 20 mg PO DAILY RF: 0 meloxicam 15 mg tablet 15 mg PO DAILY RF: 0 vitamin B complex 1 EACH capsule 1 ea PO DAILY RF: 0 magnesium 200 MG tablet 300 mg PO DAILY RF: 0 cholecalciferol (vitamin D3) 1,000 UNIT tablet 5,000 unit PO DAILY RF: 0 trazodone 50 mg tablet 100 mg PO QHS RF: 0 multivitamin with folic acid 1 TABLET tablet 1 tab PO DAILY RF: 0 dexamethasone [Decadron] 6 mg tablet 6 mg PO DAILY 7 Days Qty: 7 RF: 0 metoprolol succinate 100 mg tablet extended release 24 hr 50 mg PO DAILY Qty: 90 RF: 3 losartan 50 mg tablet 50 mg PO DAILY Qty: 30 RF: 11 Discontinued lorazepam 1 MG tablet 0.5 mg PO DAILY PRN PRN (Reason: Anxiety) RF: 0 azithromycin [Zithromax] 250 mg tablet 250 mg PO DAILY 4 Days Qty: 4 RF: 0 Referrals / Follow Up: Ganga Nunez MD [Primary Care Provider] - Within 2 Weeks Disposition Disposition (needs filled in before D/C Order can be placed): Home, Self Care Charges/Coding Visit Charges Inpatient E&M: 68833 Disch Hosp
--- NOTE | 2021-05-31 16:42 | PCM.DC ---
Discharge Instructions Diet Discharge Diet: Low fat / Low cholesterol Activity Return to work on:: 06/08/21 (Once out of isolation for COVID-19) Follow Up Care Test Results: Test results from this visit will be discussed in further detail at your follow-up appointment, if applicable. Discharge Plan Admission Admit Date/Time: 05/28/21 15:53 Primary Reason for Your Visit: Acute hypoxic respiratory failure secondary to COVID-19 Attending Provider: Sara Bermudez Primary Care Provider: Ganga Nunez Consulting Providers: Paras Noe Discharge Orders/Prescriptions Prescriptions: New lorazepam 0.5 mg Tablet 1 mg PO DAILY PRN PRN (Reason: Anxiety) Qty: 18 RF: 0 albuterol sulfate 90 mcg/actuation HFA aerosol inhaler 1 inh inhalation Q6H PRN (Reason: shortness of breath or wheezing) Qty: 8.5 RF: 0 Continued atorvastatin 10 mg tablet 10 mg PO QHS RF: 0 omeprazole magnesium 20 mg tablet,delayed release (DR/EC) 20 mg PO DAILY RF: 0 meloxicam 15 mg tablet 15 mg PO DAILY RF: 0 vitamin B complex 1 EACH capsule 1 ea PO DAILY RF: 0 magnesium 200 MG tablet 300 mg PO DAILY RF: 0 cholecalciferol (vitamin D3) 1,000 UNIT tablet 5,000 unit PO DAILY RF: 0 trazodone 50 mg tablet 100 mg PO QHS RF: 0 multivitamin with folic acid 1 TABLET tablet 1 tab PO DAILY RF: 0 dexamethasone [Decadron] 6 mg tablet 6 mg PO DAILY 7 Days Qty: 7 RF: 0 metoprolol succinate 100 mg tablet extended release 24 hr 50 mg PO DAILY Qty: 90 RF: 3 losartan 50 mg tablet 50 mg PO DAILY Qty: 30 RF: 11 Discontinued lorazepam 1 MG tablet 0.5 mg PO DAILY PRN PRN (Reason: Anxiety) RF: 0 azithromycin [Zithromax] 250 mg tablet 250 mg PO DAILY 4 Days Qty: 4 RF: 0 Referrals / Follow Up: Ganga Nunez MD [Primary Care Provider] - Within 2 Weeks Disposition Disposition (needs filled in before D/C Order can be placed): Home, Self Care
--- NOTE | 2021-05-31 18:54 | NURSING ---
[facility] unable to deliver oxygen equipment due to pt already have equipment from another company. PT request to stay with [employer] at this point so she can go home. call placed to [employer] to confirm pt home equipment. pt asked spouse to go home from current [employer] portable tank.
--- NOTE | 2021-06-01 16:28 | CASEMGMT ---
ANNELIESE MOBLEY Discharge Follow Up Phone Call: BALA: Lorna Strata:2 Call Date: 06/01/21 Discharge Date: 05/31/21 Time of Call:1628 Duration:2 min Admitting Dx:BRIJESH 17 ANNELEISE MOBLEY completed follow up phone call after recent hospitalization. Pt states she is doing well. States her pulse ox is running 94% with O2 on. Pt states she is going to stay with [employer]. The issue with the O2 yesterday was that [employer] was running behind in picking up her concentrator so [facility] could not deliver another one. Pt states frustrations with this. Pt denies questions regarding her medications or dc instructions.
== END 2021-05-31 19:30 | disposition home or self-care (01) | DRG 177 ==
LOC: ED 15:50 → MS3 17:02
PROVIDERS: Family Medicine; Internal Medicine; Admitting Provider Internal Medicine; Emergency Provider Emergency Medicine; PCP Family Medicine; Visit Provider Internal Medicine
DX: U07.1 COVID-19 (principal); J96.01 Acute respiratory failure with hypoxia; J12.82 Pneumonia due to coronavirus disease 2019; E78.5 Hyperlipidemia, unspecified; I10 Essential (primary) hypertension; F41.9 Anxiety disorder, unspecified; Z79.899 Other long term (current) drug therapy; Z87.891 Personal history of nicotine dependence; I71.2 Thoracic aortic aneurysm, without rupture; Z86.718 Personal history of other venous thrombosis and embolism; M19.90 Unspecified osteoarthritis, unspecified site; G89.29 Other chronic pain; K21.9 Gastro-esophageal reflux disease without esophagitis; Z28.3 Underimmunization status; E55.9 Vitamin D deficiency, unspecified
CPT/HCPCS: 36415; 71045; 71275; 80053; 82550; 82728; 83605; 83615; 83735; 83880; 84075; 84145; 84484; 85025; 85379; 85384; 85610; 86140; 87040; 87070; 87205; 87449; 87635; 93005; 94640; 99285; J7120; Q9967; U0005; A4216; U0003

== ENCOUNTER 2021-08-18 17:08 | Emergency (ER) | payer MEDICAID, SELFPAY ==
[2021-08-18 17:09] VITALS: BP 160/72; PULSE 61; RESP 16; TEMP 36.1; O2SAT 98; BMI 28.8
--- NOTE | 2021-08-18 18:01 | EKG12_ITS ---
Test Reason : CP Blood Pressure : / mmHG Vent. Rate : 056 BPM Atrial Rate : 056 BPM P-R Int : 164 ms QRS Dur : 086 ms QT Int : 450 ms P-R-T Axes : 022 -08 016 degrees QTc Int : 434 ms Sinus bradycardia with occasional Premature ventricular complexes Otherwise normal ECG Confirmed by KIARA BENDER, JAM ([id number]), technical writer and editor CAMERON VUONG ([id number]) on 08/19/2021 10:50:10 AM Referred By: BRADLY Confirmed By:JAM CRAIG MD
--- NOTE | 2021-08-18 18:01 | RAD_ITS ---
STUDY: X-RAY CHEST REASON FOR EXAM: Female, 61 years old. chest pain TECHNIQUE: AP portable COMPARISON: 05/28/2021 FINDINGS: The lungs are clear and expanded. There is no demonstrated pleural abnormality. Borderline cardiomegaly. Normal mediastinum and kalyn. Normal visualized pulmonary arteries. Normal visualized aortic arch and descending thoracic aorta. Dorsal spine and shoulders demonstrate degenerative change. Normal visualized ribs, and clavicles. There is no demonstrated abnormality of the visualized soft tissue structures of the upper abdomen. RAD/Chest 1 View (Portable) IMPRESSION: No acute cardiopulmonary pathology Electronically Signed: Ganga Chacon MD at 18:31 EST , Service support ,
--- NOTE | 2021-08-18 18:19 | EDS_ITS ---
HPI History of Present Illness Chief Complaint: Shortness of Breath Narrative Narrative: 60-year-old female presenting with a cough and shortness of breath for 6 days. She wears 2 L of oxygen at baseline due to having Covid in May. She has not been able to get off of the oxygen. Patient states that she does have a little bit of chest tightness in the central portion of her chest. She does not have chills or body aches. Patient states that her granddaughter was recently clinically diagnosed with RSV and put on antibiotics and steroids by urgent care. She has been around her almost daily. Patient states that her cough does have some slight keny tingeing to it. She called her PCP and he told her to come to the emergency room because he was worried about a blood clot. Patient states he had not had a blood clot during the time she had COVID-19. She states she did have superficial thrombophlebitis in the bilateral arms when she was in [facility] previously but she did not have to be anticoagulated for this. Patient is not currently on any anticoagulation. [facility] Medical History Abnormal echocardiogram Abnormal electrocardiogram Acute respiratory failure with hypoxia Anxiety Ascending aortic aneurysm COVID-19 Diverticulitis Essential hypertension Hyperlipidemia Non-rheumatic tricuspid valve insufficiency Nonrheumatic aortic (valve) insufficiency Nonrheumatic aortic valve disorder, unspecified Nonrheumatic mitral valve disorder, unspecified Thoracic aneurysm without mention of rupture Tricuspid insufficiency Valvular heart disease Home Medications cholecalciferol (vitamin D3) 5,000 unit PO DAILY 03/24/16 [History Last Taken 10/11/17] magnesium 300 mg PO DAILY 03/24/16 [History Last Taken 10/11/17 08:00] vitamin B complex 1 ea PO DAILY 03/24/16 [History Last Taken 10/11/17 08:00] multivitamin with folic acid 1 tab PO DAILY 06/17/17 [History Last Taken 08:00] trazodone 50 mg tablet 100 mg PO QHS tab 01/29/19 [History Last Taken Unknown] metoprolol succinate 100 mg tablet,extended release 24 hr 50 mg PO DAILY #90 tab 03/10/21 [Rx Last Taken Unknown] losartan 50 mg tablet 50 mg PO DAILY #30 tab 03/11/21 [Rx Last Taken Unknown] atorvastatin 10 mg tablet 10 mg PO QHS 04/18/21 [History Last Taken Unknown] meloxicam 15 mg tablet 15 mg PO DAILY 04/18/21 [History Last Taken Unknown] omeprazole magnesium 20 mg tablet,delayed release 20 mg PO DAILY 04/18/21 [History Last Taken Unknown] dexamethasone [Decadron] 6 mg PO DAILY 7 Days #7 tab 05/26/21 [Rx Last Taken Unknown] albuterol sulfate 1 inh INHALATION Q6H PRN #8.5 g 05/31/21 [Rx Last Taken Unknown] lorazepam 1 mg PO DAILY PRN PRN #18 tab 05/31/21 [Rx Last Taken Unknown] promethazine-DM 5 ml PO Q6H PRN #118 ml 08/18/21 [Rx Last Taken Unknown] Allergy/AdvReac Type Severity Reaction Status Date / Time oxycodone Allergy Swelling Verified 05/28/21 13:32 hydromorphone [From Dilaudid] AdvReac Other Verified 05/28/21 13:32 nabumetone [From Relafen] AdvReac Nausea Verified 05/28/21 13:32 Sulfa (Sulfonamide AdvReac Nausea Verified 05/28/21 13:32 Antibiotics) tramadol HCl [From Ultram] AdvReac Nausea Verified 05/28/21 13:32 Family History Father CAD (coronary artery disease) Mother aneursym Surgical History History of colon surgery (~10/2017) History of hernia repair Social History Smoking Status: Never smoker alcohol intake: never substance use type: does not use caffeine: Yes Type: tea Number of servings: 1 what type of physical activity do you participate in: walking frequency: daily duration: < 15 minutes/day seatbelt use: always do you feel safe at home: Yes ROS ROS ED Constitutional Constitutional ED: Denies chills or fever(s) Eyes Eyes: Denies blurry vision or diplopia ENT ENT ED: Reports rhinorrhea and sore throat Cardiovascular Cardiovascular: Reports chest pain Respiratory/Chest Respiratory/Chest: Reports cough and dyspnea Gastrointestinal Gastrointestinal: Denies abdominal pain, nausea or vomiting Genitourinary Genitourinary ED: Denies dysuria or hematuria Musculoskeletal Musculoskeletal: Denies arthralgias, myalgias or neck pain Integumentary Denies abscess or rash Neurologic Neurologic: Denies headache(s) or weakness Psychiatric Psychiatric: Denies anxiety or depression Endocrine Endocrinology: Denies polydipsia or polyuria EXAM Physical Exam Const Vital Signs: 08/18/21 17:09 08/18/21 18:59 08/18/21 20:50 Temperature 97.0 F L Temperature Source Temporal Pulse Rate 61 52 L Respiratory Rate 16 15 Respiratory Effort Short of Breath Respiratory Depth Normal Respiratory Pattern Normal Blood Pressure 160/72 H 156/79 H Blood Pressure Mean 101 104 Pulse Ox 98 96 Oxygen Delivery Method Nasal Cannula Nasal Cannula Room Air Oxygen Flow Rate (L/min) 2 2 08/18/21 21:42 Temperature Temperature Source Pulse Rate 52 L Respiratory Rate 15 Respiratory Effort Respiratory Depth Respiratory Pattern Blood Pressure 158/84 H Blood Pressure Mean Pulse Ox 97 Oxygen Delivery Method Oxygen Flow Rate (L/min) Positive well nourished General Appearance ED: NAD; Negative for pallor HEENT Reports moist mucous membranes atraumatic Eyes PERRL and EOMs intact bilaterally Resp normal respiratory effort and clear to auscultation bilaterally Cardio regular rate and regular rhythm GI non-tender and non-distended Palpation: soft Neuro oriented x3, CN's II-XII intact bilaterally and no sensory deficits noted Sensorium / Orientation: alert Motor Exam: strength 5/5 throughout Psych mental status grossly normal Thought Process: normal thought process Skin General Skin Exam: Negative for jaundice or pallor Rashes: no rashes MDM MDM MDM Narrative Medical decision making narrative: Due to chest tightness I did obtain an EKG which shows a sinus bradycardia with a ventricular rate of 56 bpm with occasional PVC without sign of ischemic change. No significant interval change from previous EKG 28 August 2021. Chest x-ray my interpretation shows no acute cardiopulmonary process and the radiologist does agree. BNP is 31.2. CBC shows no leukocytosis and low hematocrit are stable. Renal function electrolytes are normal. High-sensitivity troponin is 6. I obtained a CT of the chest and the patient is concerned that she might have a PE. CTA of the chest is negative for PE or infiltrate. There also does not appear to be an aortic aneurysm leak. Patient counseled on findings I feel she is stable for discharge home. She does have respiratory panel that is pending. She will return for any new or worsening symptoms. Impression: 1. Dyspnea 2. Keny sputum 3. Cough Lab Data Labs: Laboratory Results - last 24 hr 08/18/21 08/18/21 08/18/21 19:35 19:35 19:35 WBC 6.0 RBC 3.92 L Hgb 12.3 Hct 36.3 L MCV 92.6 MCH 31.4 MCHC 33.9 RDW Std Deviation 43.7 RDW Coeff of Roshan 12.8 Plt Count 209 MPV 11.0 Immature Gran % (Auto) 0.200 Neut % (Auto) 46.6 L Lymph % (Auto) 41.0 [place] % (Auto) 9.5 Eos % (Auto) 2.5 Baso % (Auto) 0.2 Absolute Neuts (auto) 2.8 Absolute Lymphs (auto) 2.45 Nucleated RBC % 0 Sodium 140 Potassium 3.8 Chloride 106 Carbon Dioxide 26.0 Anion Gap 8 BUN 19 H Creatinine 0.86 Estim Creat Clear Calc 69.97 Est GFR (MDRD) Af Amer 86 Est GFR (MDRD) Non-Af 71 BUN/Creatinine Ratio 22.1 H Glucose 92 Calcium 8.8 Troponin I High Sens 6 B-Natriuretic Peptide 31.2 Radiography Diagnostic Testing: Clinical Impression(s) from Imaging Studies Chest X-Ray 08/18/21 18:01 IMPRESSION: No acute cardiopulmonary pathology Electronically Signed: Gagna Chacon MD at 18:31 EST , Service support , Chest CTA 08/18/21 20:18 IMPRESSION: ASHD without evidence for aortic aneurysm periaortic leak or dissection. No evidence for pulmonary embolus. Minimal subsegmental atelectasis at the lung bases. Significantly improved aeration of the lungs since previous study Electronically Signed: Ganga Chacon MD at 21:07 EST , Service support , Discharge Plan Triage Chief Complaint: Shortness of Breath ED Provider: Familia Francois Dx/Rx/DC Orders Instructions: ED Viral Syndrome (Adult) Prescriptions: New promethazine-DM 6.25-15 mg/5 mL syrup 5 ml PO Q6H PRN (Reason: cough) Qty: 118 RF: 0 No Action atorvastatin 10 mg tablet 10 mg PO QHS RF: 0 omeprazole magnesium 20 mg tablet,delayed release (DR/EC) 20 mg PO DAILY RF: 0 meloxicam 15 mg tablet 15 mg PO DAILY RF: 0 vitamin B complex 1 EACH capsule 1 ea PO DAILY RF: 0 magnesium 200 MG tablet 300 mg PO DAILY RF: 0 cholecalciferol (vitamin D3) 1,000 UNIT tablet 5,000 unit PO DAILY RF: 0 trazodone 50 mg tablet 100 mg PO QHS RF: 0 multivitamin with folic acid 1 TABLET tablet 1 tab PO DAILY RF: 0 dexamethasone [Decadron] 6 mg tablet 6 mg PO DAILY 7 Days Qty: 7 RF: 0 lorazepam 0.5 mg Tablet 1 mg PO DAILY PRN PRN (Reason: Anxiety) Qty: 18 RF: 0 albuterol sulfate 90 mcg/actuation HFA aerosol inhaler 1 inh inhalation Q6H PRN (Reason: shortness of breath or wheezing) Qty: 8.5 RF: 0 metoprolol succinate 100 mg tablet extended release 24 hr 50 mg PO DAILY Qty: 90 RF: 3 losartan 50 mg tablet 50 mg PO DAILY Qty: 30 RF: 11 Primary Care Provider: Ganga Nunez Referrals: Ganga Nunez MD [Primary Care Provider] - Disposition Disposition: Home, Self Care Discharge Date/Time: 08/18/21 21:43
[2021-08-18 18:59] VITALS: O2SAT 98
[2021-08-18 19:42] LABS: Absolute Lymphocyte Count 2.45 X10^3/uL (0.83-4.51); Absolute Neutrophil Count 2.8 X10^3/uL (2.0-7.7); Basophil# 0.01 X10^3/uL; Basophil% 0.2 % (0-1); Eosinophil# 0.15 X10^3/uL; Eosinophils% 2.5 % (0-5); Hematocrit 36.3 % (37-47); Hemoglobin 12.3 g/dL (12.0-15.0); Lymphocyte # 2.45 X10^3/ul (0.83-4.51); Mean Corp Hgb Conc 33.9 g/dL (32-36); Mean Corpuscular Hgb 31.4 pg (27.0-32.0); Mean Corpuscular Volume 92.6 fL (81-99); Monocyte# 0.57 X10^3/uL; Monocyte% 9.5 % (0-10); NRBC Flagged by Analyzer 0 % (0-5); Neutrophil # 2.78 X10^3/uL (2.7-7.7); Neutrophil % 46.6 % (47-70); Platelet Count 209 K/mm3 (150-450); RBC Distribution Width CV 12.8 % (11.6-14.6); RBC Distribution Width SD 43.7 fl (35.1-43.9); Red Blood Count 3.92 M/mm3 (4.2-5.4)
[2021-08-18 20:12] LABS: Anion Gap 8 (5-15); BUN 19 mg/dL (7-18); BUN/Creat Ratio 22.1 RATIO (10-20); Calcium,Total 8.8 mg/dL (8.5-10.1); Chloride 106 mmol/L (98-107); Creatinine, Serum 0.86 mg/dL (0.55-1.02); EST Glomerular Filtration Rate 71 mL/min (>60); Est Glom Filt Rate - Afr Amer 86 mL/min (>60); Estimated Creatinine Clearance 69.97 ml/min; Glucose 92 mg/dL (74-106); Potassium 3.8 mmol/L (3.5-5.1); Sodium Level 140 mmol/L (136-145); Troponin-I HS 6 pg/mL (3.0-54.0)
--- NOTE | 2021-08-18 20:18 | CT_ITS ---
STUDY: CTA CHEST REASON FOR EXAM: Female, 61 years old. chest pain RADIATION DOSAGE (If Supplied By Facility): CTDIvol = ( 14.16 ) mGy, DLP = ( 468.30 ) mGycm TECHNIQUE: The examination was performed with the intravenous administration of IV 100mL Isovue-370. Post-processing of the angiographic images was performed, with multiplanar reformation and 3D reconstruction. Individualized dose optimization techniques were used for this CT. COMPARISON: 05/28/2021 FINDINGS: Normal enhancement of the main pulmonary artery and right and left pulmonary arteries. Normal enhancement of the bilateral peripheral pulmonary arteries. There is no demonstrated pulmonary embolism. Mild dilatation of the proximal ascending aorta measuring approximately 4.2 cm in size. No evidence for aortic dissection There is no demonstrated aortic dissection. Heart size is normal. There is minor coronary artery calcification. Normal mediastinum. Normal hilar regions. Normal visualized trachea and bronchi. The lungs are well expanded. There is minimal subsegmental atelectasis at the lung bases. No focal infiltration or pulmonary nodule. Normal pleura. Normal chest wall structures. Dorsal spine demonstrates degenerative changes. Simple cyst in the upper pole of the right kidney. There is improved aeration of the lungs when compared with the prior study CT/CTA Chest W/WO Contrast IMPRESSION: ASHD without evidence for aortic aneurysm periaortic leak or dissection. No evidence for pulmonary embolus. Minimal subsegmental atelectasis at the lung bases. Significantly improved aeration of the lungs since previous study Electronically Signed: Ganga Chacon MD at 21:07 EST , Service support ,
[2021-08-18 20:19] LABS: BNP,B-Type NATRIURETIC PEPTIDE 31.2 pg/mL (0-100)
[2021-08-18 20:50] VITALS: BP 156/79; PULSE 52; RESP 15; O2SAT 96
[2021-08-18 21:42] VITALS: BP 158/84; PULSE 52; RESP 15; O2SAT 97
== END 2021-08-18 21:43 | disposition home or self-care (01) ==
PROVIDERS: Emergency Provider Student in an Organized Health Care Education/Training Program; PCP Family Medicine
DX: R06.00 Dyspnea, unspecified (principal); R05.9 Cough, unspecified; I25.10 Atherosclerotic heart disease of native coronary artery without angina pectoris
CPT/HCPCS: 71045; 71275; 80048; 83880; 84484; 85025; 87633; 93005; 99285; Q9967; A4216

== ENCOUNTER 2021-11-23 07:14 | Outpatient (CLI) | payer OTHER, MEDICAID, SELFPAY ==
--- NOTE | 2021-11-23 19:04 | STRESSREP ---
Stress Test Report Date: 11-23-2021 Procedure: Pharmacologic stress nuclear imaging study Indications: Chest pain; mitral valve disorder; COVID-19 Consent: Per the patient Procedure: The patient underwent pharmacologic (Regadenoson 0.4mg ) evaluation with a peak heart rate of 78 beats per minute (49%predicted maximal heart rate) and a peak blood pressure of 142/82 mmHg. The baseline ECG demonstrated sinus bradycardia. The peak pharmacologic ECG demonstrated no obvious ECG changes. There were no cardiac dysrhythmias pretest, during pharmacologic infusion, or recovery. There was no complaint of chest discomfort during pharmacologic infusion or recovery. The examination was discontinued secondary to completion of protocol. Impression: 1. Pharmacologic (Regadenoson) evaluation 2. Peak pharmacologic ECG with no obvious ECG changes. 3. There were no cardiac dysrhythmias pretest, during pharmacologic infusion, or recovery. 4. Nuclear images pending Myocardial perfusion imaging study: Technique: The patient was injected with 11.8 millicuries of technetium 99m Cardiolite and subsequently rest SPECT Cardiolite nuclear imaging was obtained in the horizontal long, vertical long, and short axis views. The patient underwent pharmacologic (Regadenoson) evaluation with a peak heart rate of 78 beats per minute (49% percent predicted maximal heart rate) and a peak blood pressure of 142/82 mmHg. The patient was injected with 34.2 millicuries of technetium 99m Cardiolite and subsequently stress SPECT Cardiolite nuclear imaging was obtained in the horizontal long, vertical long, and short axis views. A gated Cardiolite study at peak stress was obtained. Interpretation: Rest and stress SPECT Cardiolite nuclear imaging status post realignment, normalization, and attenuation correction demonstrate relative uniform tracer uptake and myocardial perfusion appearing within normal limits. There is end systolic thickening and brightening. The gated Cardiolite study demonstrates myocardial thickening and inward wall motion. The reported LVEF is 66%. Impression: 1. Rest and stress SPECT Cardiolite nuclear imaging demonstrate relative uniform tracer uptake and myocardial perfusion appearing within normal limits. 2. The gated Cardiolite study reports an LVEF of 66%. This note was generated with [employer] software. It may contain incorrect words, spelling, and punctuation that were not noted in checking the note before signing.
== END 2021-11-23 23:59 | disposition home or self-care (01) ==
LOC: CVS 07:15
PROVIDERS: PCP Family Medicine; Referring Provider Nurse Practitioner Family; Visit Provider Nurse Practitioner Family
DX: R07.9 Chest pain, unspecified (principal); R94.31 Abnormal electrocardiogram [ECG] [EKG]
CPT/HCPCS: 78452; 93017; A9500; A4216; J2785

== ENCOUNTER → 2022-04-05 | Outpatient (CLI) | payer OTHER, MEDICAID, SELFPAY ==
--- NOTE | 2022-04-05 08:11 | CT_ITS ---
STUDY: CT RIGHT SHOULDER REASON FOR EXAM: Female, 61 years old. ARTHRITIS RADIATION DOSAGE (If Supplied By Facility): CTDIvol = ( 27.51 ) mGy, DLP = ( 571.45 ) mGycm TECHNIQUE: The patient was scanned in a multi detector CT scanner. High resolution transaxial imaging was performed without the administration of intravenous contrast material. Sagittal and coronal images were reconstructed. Individualized dose optimization techniques were used for this CT. COMPARISON: None. FINDINGS: No evidence of cortical irregularity or lucency to suggest a fracture, no evidence of right shoulder dislocation is seen. Remodeling of the head of the humerus is visualized with subchondral lucencies consistent with subchondral cysts most prominent along the greater tuberosity, subtle disruption of the overlying cortex is visualized best visualized on axial series 2 image 68 and coronal series 601 image 32. Extensive degenerative changes visualized in the greater tuberosity. Bone osteophyte formation is visualized most prominent along the inferomedial aspect of the right humeral head with osteophyte visualized projecting in the infraglenoid space. An underlying 1.0 cm bony osteophyte versus loose body is visualized on coronal series 601 image 42 and on axial series 2 image 130. A well-corticated calcifications visualized along the posterior medial aspect of the humerus appearing to be within the joint space measuring 2.5 x 1.5 x 2.2 cm seen on axial series 2 image 143 and coronal series 601 image 46. Degenerative changes with a bony osteophyte visualized inferior to the glenoid bone is seen on coronal series 601 image 41 Subchondral lucency visualized within the glenoid bone. A 0.6 cm soft tissue calcification is visualized along the superolateral aspect of the greater tuberosity seen on axial series 2 image 70 consistent with calcific tendinosis Degenerative changes visualized in the acromioclavicular joint with mild overlying soft tissue prominence seen on coronal series 601 image 34. Unremarkable coracoid process. No evidence of fluid within the right shoulder joint space. Degenerative changes visualized in the right sternoclavicular joint. Unremarkable visualized muscles and soft tissue structures. Mild prominence of the bronchovascular and interstitial lung markings unremarkable, no evidence of focal infiltrate or consolidation. A 0.7 cm pleural-based nodule in the anteromedial aspect of the right upper lobe is visualized on axial series [address]/Extremity Upper without Contra IMPRESSION: Extensive degenerative changes of the right shoulder joint. No evidence of acute osseous abnormality is seen. Electronically Signed: Alejo Saunders MD at 8:50 EDT ,
== END | disposition home or self-care (01) ==
LOC: CT 08:02
PROVIDERS: PCP Family Medicine; Referring Provider Specialist; Visit Provider Specialist
DX: M19.111 Post-traumatic osteoarthritis, right shoulder (principal)
CPT/HCPCS: 73200

== ENCOUNTER 2022-06-14 15:56 | Observation (INO) | payer OTHER, MEDICAID, SELFPAY ==
--- NOTE | 2022-05-29 15:12 | HP.PCM_ITS ---
History and Physical History and Physical [facility] Patient Name: Kristina Macario : 1960 From:? BRUCE MEEHAN PA-C? DATE OF SURGERY:? 06/14/2022 SCHEDULED PROCEDURE:? right reverse total shoulder arthroplasty HISTORY OF PRESENT ILLNESS: Preoperative history and physical exam was performed on May 29, 2022.? This is a 62-year-old female whose had ongoing pain for over 16 years.? She has increased pain in her right dominant shoulder with any overhead motion and lying on her right side.? Patient's last surgery by Dr. Rafael Blunt was on November 04, 2010 for a recurrent right shoulder pain status post rotator cuff repair with chronic biceps tendinitis and chondromalacia of the glenoid and humeral head.? Patient at that time had excision of scar tissue in the acromioclavicular joint with subacromial decompression biceps tenotomy and debridement of arthrosis of the glenohumeral joint.? She had a initial surgery on September 07, 2005 with the right shoulder.? Patient has continued to have pain in the right shoulder.? It awakens her at night.? She has decreased ability with activities of daily living including getting dressed and washing her hair due to the pain.? She does feel the right shoulder is limited in motion compared to the left.? She has tried meloxicam and previous physical therapy.? After failing conservative measures and discussing treatment options with Dr. Fracisco Cortez, the patient does wish to proceed with a right reverse total shoulder arthroplasty.? We are obtaining surgical clearance from the primary care physician and trader fixed income Dr. Menendez.? Patient does have a stable aortic aneurysm which is being managed conservatively.? She currently denies any chest pain, shards of breath, fevers chills or recent infections.? She has medical history pertinent for fibromyalgia, diverticulitis, migraines, previous superficial blood clots in the bilateral upper extremities but no DVT, she also reports she is being watched for a spot on her long.? Denies any chest pain or shortness of breath.? Due to her narcotic allergies we will proceed postoperatively with [place] for pain control. REVIEW OF SYSTEMS: Review Of Systems: Constitutional: Denies anorexia, change in appetite, fever, difficulty sleeping, weight change. Cardiovasular: Denies chest pain, heart murmur, irregular heartbeat and peripheral vascular disease. Respiratory: Reports sleep apnea and shortness of breath, but denies asthma, cough, pneumonia, tuberculosis and wheezing. Gastrointestinal: Denies constipation, diarrhea, heartburn, nausea, rectal itching, bloody stools and vomiting. Genitourinary: Denies incontinence. Musculoskeletal: Denies leg swelling, pain, trouble walking and weakness. Skin: Reports dryness, but denies Raynaud's, history of shingles and tattoo. Neurological: Denies ambulatory dysfunction, dizziness, numbness/tingling and tremor. Psychiatric: Denies anxiety, depression, insomnia, mental illness and stress. Hematologic/Lymphatic: Denies anemia, bleeding/bruising tendency and past transfusion. Reviewed and updated. PAST MEDICAL HISTORY: Advance Care Plan: No Advance Directives Effective Date: 11/18/2019 Past Medical History: Medical Problems: Arthritis, Fibromyalgia, Hydrocephelis, HPV, Migraines, Heart Valve Issues, Diverticulitis, Hypercholesterolemia, Pre Diabetic Covid- 19 - (05/2021) Spot On Lung - (07/2021) BEING WATCHED Aortic Aneurysm, Superifical blood clot in bilateral upper extremity Accidents: Sports Related Injury - 1984 Right Ankle volleyball and softball season Accident - 1983 Shoulder & Neck Surgical Hx: Appendectomy - 1986 [place], [place] Tubal Ligation - 1989 [place], [place] 1991 [place], [place] Verify Surgery Unable To Read - HYDROCEPHYLIS? ?2000 [facility]? Elbow Surgery - 2000 [place], [place] Arthroscopy - (09/07/2005) right shoulder? Nuvia Right Shoulder - (05/13/2007) [facility] Hysterectomy - (09/2008) DR. MENESES RT Shoulder Arthroscopy - (11/04/2010) [email or web address] RT Breast - (2014) LT Anterior Total Hip Replacement - (04/24/2016) [email or web address] Colon Resection - W/COLOSTOMY & REMOVED Hernia Repair - (04/05/2020) Aneurysm In Heart - (2015) Anesthesia Complications: Vomiting, Nausea Assistive Devices: Glasses Reviewed and updated. SOCIAL HISTORY: Social History: Marital: .Occupation: Currently Working - [facility].Work Status: Currently Working.Hand Dominance: Right-handed. Personal Habits:? Cigarette Use: Former.Smokeless Tobacco: Never Used Smokeless Tobacco.E-Cigarette Use: Never used.Alcohol: Occasionally.Drug Use: Denies Use.Enjoy Exercising: Never Exercises Negative For Exercises 1-3 X/Week. Reviewed and updated. VITALS: Ht: 68 Wt: 194lb Wt k.998 BMI: 29.5 BP: 132/92 Pulse: 56 T: 96.9 T: 36.1C Pain Level: 8 O2SatR: 96 ALLERGIES: Sulfa Relafen Ultram Oxycontin - Edema Hydromorphone? MEDICATIONS: [employer] D3 2000 Unit Take? by mouth once daily., Multivitamins? 1 po qdAY, Lorazepam 1 mg 1/2 tab PO q hs, Trazodone HCL 50 mg 1 tab PO daily, Zyrtec Allergy 10 mg 1 tab PO daily, Magnesium 300 mg 1 cap PO daily, Vitamin B Complex? one PO daily, Metoprolol Succinate ER 25 mg 1 by mouth every day, Meloxicam 15 mg take one tablet by mouth every day, Biotin 1000 mcg 1/day, Atorvastatin Calcium 10 mg 1po qday, Nitrofurantoin Monohydrate/Macrocrystals 100 mg, Lipitor? 1po qday, Sertraline HCL 100 mg 1po qday, Sucralfate 1 gm take 1 tablet by mouth three times daily before meal(s), Hydroxyzine HCL 10 mg 1 po qdaily, Omeprazole 40 mg 1 by mouth every day, Azelastine HCL (Nasal) 0.1 % 2 sprays by nasal route 2 times daily, Flonase Allergy Relief 50 mcg/Act one spray as needed, Elderberry Zinc Lozenge/Vitamin C & Immune Blend? as needed, Losartan Potassium 50 mg 1 by mouth every day, Calcium Carbonate 600 mg 1 po qdaily PRE-OP EXAM:? General appearance:NORMAL? ? ? Other: Eyes: Conjunctivae and lids: NORMAL? Pupils: ERR Ears, Nose, Mouth, and Throat: NORMAL? Other: Inspection of lips, teeth and gums: NORMAL? ?Other: Neck: Examination of neck: no masses noted. Respiratory: Assessment of respiratory effort: NORMAL? ?Other: ?Auscultation of lungs: clear to auscultation no wheezes, rhonchi or rales. Cardiovascular:? Auscultation of heart: regular rate and rhythm, no murmurs, gallops or rubs. PHYSICAL EXAMINATION: On exam previous incisions from the arthroscopy are well-healed without signs of erythema or infection.? She has active forward elevation 90 on the right with passive range of motion to approximately 110.? There is crepitus with range of motion.? External rotation 25 and internal rotation to her SI joint.? She has 3/5 supraspinatus strength on the right.? Sensation intact to light touch in axillary, radial, median, ulnar distribution. IMAGING STUDIES: Previous x-rays of the right shoulder reveal severe narrowing of the glenohumeral joint with severe inferior humeral osteophyte extending significantly into the axillary pouch.? This is consistent with severe stage IV glenohumeral osteoarthritis. IMPRESSION: 1.? 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 Fibromyalgia 3.? Hydrocephalus 4.? Migraines 5.? Valvular heart disease 6.? Hyperlipidemia 7.? Hypertension 8.? Thoracic aortic aneurysm without rupture: Last CT measures 4.2 cm in size 9.? History of superficial blood clots and bilateral upper extremity PLAN: Dr. Fracisco Cortez did discuss and review with the patient all treatment options including surgical versus nonsurgical options.? Patient does wish to proceed with the above-stated procedure.? Potential risks, benefits, and complications of the procedure were discussed in detail including but not limited to , infection, nerve and blood vessel damage, persistent pain, numbness, tingling, paresthesias, blood clot, pulmonary embolism, and requirement for possible further surgery.? The patient expressed full understanding and has no further questions for the doctor.? Patient does agree to proceed with the above-stated procedure and has signed the surgery consent form. We discussed the current risks associated with COVID 19.? This does include the risk of exposure while in the hospital.? Patient was reassured local hospitals have low infection rates and are taking all necessary precautions to avoid exposure to patients.? In addition, we discussed strategies that can be used to help limit exposure including those that limit the patient's time in the hospital.? Also using strategies to limit the patient's need for continued inpatient services after being discharged from the hospital.? Patient was notified that we will need to comply with any screening or testing the hospital wishes to perform or that surgery may be delayed for any positive results. This dictation was created using voice recognition software. Phonetic and/or grammatical errors may exist. ___? I have re-examined the patient.? There are no clinical changes since date of exam. ___? See progress notes for changes. ___? Dictated on admission Date: ? ? ?Time: Signature:
--- NOTE | 2022-06-05 08:33 | EKG12_ITS ---
Test Reason : PREOP Blood Pressure : / mmHG Vent. Rate : 059 BPM Atrial Rate : 059 BPM P-R Int : 160 ms QRS Dur : 092 ms QT Int : 450 ms P-R-T Axes : 031 -16 008 degrees QTc Int : 445 ms Sinus bradycardia Otherwise normal ECG Confirmed by GUSTAVO BENDER, CHANCE ([id number]), writer editor CAMERON VUONG ([id number]) on 06/05/2022 9:36:00 AM Referred By: Fracisco Cortez Confirmed By:CHANCE CHEN MD
[2022-06-05 10:12] LABS: Hematocrit 37.8 % (37-47); Hemoglobin 12.8 g/dL (12.0-15.0); Mean Corp Hgb Conc 33.9 g/dL (32-36); Mean Corpuscular Hgb 31.8 pg (27.0-32.0); Mean Corpuscular Volume 93.8 fL (81-99); Mean Platelet Vol. 11.8 fl (6.2-12.0); Platelet Count 221 K/mm3 (150-450); RBC Distribution Width CV 12.2 % (11.6-14.6); RBC Distribution Width SD 42.3 fl (35.1-43.9); Red Blood Count 4.03 M/mm3 (4.2-5.4); White Blood Count 5.7 K/mm3 (4.4-11.0)
[2022-06-05 11:04] LABS: International Normalized Ratio 0.9; Prothrombin Time (Protime)PT. 12.2 SECONDS (11.7-14.9)
[2022-06-05 11:05] LABS: Partial Thromboplast Time 26.8 Seconds (24.1-36.2)
[2022-06-05 11:16] LABS: Anion Gap 8 (5-15); BUN 15 mg/dL (7-18); BUN/Creat Ratio 16.1 RATIO (10-20); Calcium,Total 9.4 mg/dL (8.5-10.1); Chloride 110 mmol/L (98-107); Creatinine, Serum 0.93 mg/dL (0.55-1.02); EST Glomerular Filtration Rate 64 mL/min (>60); Est Glom Filt Rate - Afr Amer 78 mL/min (>60); Glucose 100 mg/dL (74-106); Sodium Level 143 mmol/L (136-145)
[2022-06-05 11:28] LABS: AST(SGOT) 21 U/L (15-37); Alanine Aminotransfer ALT/SGPT 30 U/L (13-56); Albumin, Serum 3.4 g/dL (3.2-5.0); Alkaline Phosphatase 129 U/L (45-117); Bilirubin, Direct 0.09 mg/dL (0.00-0.30); Globulin 3.8 g/dL (2.2-4.2); Magnesium 2.1 mg/dL (1.6-2.6); Protein, Total 7.2 g/dL (6.4-8.2)
[2022-06-09 15:58] LABS: Absolute Lymphocyte Count 2.16 X10^3/uL (0.83-4.51); Absolute Neutrophil Count 3.6 X10^3/uL (2.0-7.7); Basophil# 0.02 X10^3/uL; Basophil% 0.3 % (0-1); Eosinophil# 0.17 X10^3/uL; Eosinophils% 2.6 % (0-5); Hematocrit 40.2 % (37-47); Hemoglobin 13.3 g/dL (12.0-15.0); Lymphocyte # 2.16 X10^3/ul (0.83-4.51); Lymphocyte % 32.8 % (19-41); Mean Corp Hgb Conc 33.1 g/dL (32-36); Mean Corpuscular Hgb 31.5 pg (27.0-32.0); Mean Corpuscular Volume 95.3 fL (81-99); Mean Platelet Vol. 11.5 fl (6.2-12.0); Monocyte# 0.63 X10^3/uL; Monocyte% 9.6 % (0-10); NRBC Flagged by Analyzer 0 % (0-5); Neutrophil # 3.57 X10^3/uL (2.7-7.7); Neutrophil % 54.2 % (47-70); Platelet Count 248 K/mm3 (150-450); RBC Distribution Width CV 12.5 % (11.6-14.6); RBC Distribution Width SD 42.7 fl (35.1-43.9); Red Blood Count 4.22 M/mm3 (4.2-5.4); White Blood Count 6.6 K/mm3 (4.4-11.0)
[2022-06-14] VITALS (19 sets, daily range): BP systolic 92–165; BP diastolic 52–80; PULSE 47–71; RESP 16–18; TEMP 36.4–37.1; O2SAT 92–100; BMI 29.5
--- NOTE | 2022-06-14 07:08 | PCM.OPRPT ---
Report of Operation Date of Procedure: 06/14/22 Pre-Operative Diagnosis: Left shoulder osteoarthritis with rotator cuff insufficiency Post-Operative Diagnosis: Left shoulder osteoarthritis with rotator cuff insufficiency Surgery/Procedure Performed:: Left reverse total shoulder replacement Description of Surgical Findings:: Stable shoulder Surgeon: Fracisco Cortez member of the legislative assembly: Evan Sexton Type of Anesthesia: General Special Medications: 2 g Ancef, 1 g TXA at incision, 1 g TXA closure, 10 mg Decadron, joint cocktail (5 mg Duramorph, 30 mL of 0.5% Ropivicaine, 1000 units of epinephrine, 30 mg of Toradol), 1 g vancomycin at incision Specimen's removed: Bony cuts Description of Procedure: Components used 1. Anu reunion glenoid baseplate 2. Anu reunion [] mm, []mm Glenosphere 3. [place] reunion []mm, []mm humeral liner 4. Anu reunion reverse TSA humeral adapter tray []mm 5. [place] reunion humeral stem primary press-fit []mm size Brief history/Operative indications: [] yo [] with history of left shoulder pain and cuff tear arthropathy. Patient failed conservative measures as mentioned in the H&P. After discussion of risk and benefits of reverse total shoulder replacement including but not limited to blood loss, DVTs, PEs, nerve vessel damage, infection, general risk of anesthesia including loss of life, instability and stiffness patient demonstrating understanding wish to proceed was able to sign informed consent. Medical clearance was obtained. Procedure: On the date of the procedure, patient's left upper extremity was marked in the preoperative area. Patient was taken back to the operating room where they were placed on the table in the supine position. Anesthesia assumed control of the C-spine and airway, then administered anesthetic. All bony prominences were identified well-padded, the head was secured and the patient was placed in the beachchair position at about 35? inclination. Anesthesia remained in control of the C-spine airway throughout the remainder of the procedure. Patient was then appropriately fastened to the table and the left upper extremity was prepped in a sterile fashion. The surgeons then scrubbed. Upon reentering the room, the left upper extremity was draped in a sterile fashion and the incision was marked out. Timeout was called, everyone agreed upon the side, the site, the procedure to be performed, patient identity and antibiotics given. Incision was taken down through skin and subcutaneous tissue, fat down to fascia. The stripe of the deltopectoral interval and cephalic vein were identified and blunt dissection was used to retract the deltoid. The cephalic vein was retracted laterally. Clavipectoral fascia was then incised and a cobra retractor was placed in the wound. The proximal one third of the pectoralis major insertion was released. Pectoralis tendon insertion was used to tenodesed the biceps tendon which was identified in the bicipital groove. Tenodesis was done with #1 Vicryl. Proximally we followed the biceps tendon after transecting it into the rotator interval. The rotator interval was split and the arm was externally rotated. The split was 1 cm medial to the bicipital groove. Subscapularis tendon was released. We released down the anterior portion of the humeral head and a tirado elevator was used to release the inferior portion of the humeral head. The arm was externally rotated and the shoulder was dislocated. The humeral head was then cut at its natural retroversion. Once his humeral head cut was made humerus was retracted out of the way and the glenoid was exposed. After exposing the glenoid, the labrum and the remaining proximal biceps were debrided. At this time we are able to view the entire outer edge of the glenoid. A central pin was placed we sequentially reamed over this central pin to []mm. Once this was completed the central screw was measured and found to be. The glenoid baseplate was screwed into place. Wound was closely irrigated out with normal saline we then drilled sequentially for 2 screws. Screws were placed superiorly and inferiorly and tightened down the screws. Once the screws were appropriately tightened into place the glenoid baseplate was compressed against the exposed subchondral bone. A []mm glenosphere was impacted into place engaging the Daniels taper. Attention was then turned towards the humerus. The humerus was again externally rotated exposing the proximal portion of the humerus. Central canal finder was then used to open up the canal. We reamed to a []mm reamer. We then broached to a []mm stem. We trialed the []mm liner, with the []mm humeral baseplate. We obtained an adequate reduction at this time with a nice stable shoulder. Good internal rotation to the gluteus, forward elevation to 140?, external rotation to 20?. Final components were then assembled on the back table, trials were removed and the wound was copiously irrigated with normal saline after dislocating the shoulder. Once the final components were assembled they were impacted into place. Shoulder was then reduced and found to be stable with good range of motion. Subscapularis tendon []. The wound was with chlorhexidine solution then copiously irrigated out with a 1 L normal saline lavage. The deltopectoral fascia was then closed using #1 Vicryl skin was closed using 2-0 Vicryl interrupted sutures and final skin closure was done with 3-0 Monocryl. Steri-Strips are placed for final skin closure. Sterile dressing was placed patient was then placed in a sling and awakened by anesthesia. Patient was then transferred to the PACU for recovery. Postoperative plan: Patient will be admitted to the hospital overnight. They will get physical therapy starting in 2 weeks with normal postoperative regimen. Patient will be placed on [] for DVT prophylaxis. The first postoperative appointment will be in 2 weeks for wound check and initiation of phase 1 physical therapy. During the course of the procedure the physician assistant laboratory director played a vital role. His intimate knowledge of my steps in the procedure aided in safe and expedient completion of the procedure. The PA played a vital rolls in positioning particularly in obtaining the appropriate beach chair position and securing the patient's body and head to the table. The PA was also vital in the retraction of soft tissues during the exposure and especially the glenoid work as this is a vital part of the procedure to prevent neurovascular damage. the PA was also vital and protecting soft tissues during times of bony cuts and reaming. He also played a vital role in closure with my direct supervision. The PA was also important during reduction and dislocation of the joint and trials intraoperatively. Admit VTE Documentation VTE Present on Admission: No VTE Mechan Device Prophylaxis: SCD's VTE Pharm Prophylaxis ordered?: Yes
[2022-06-14] MEDS: Lactated Ringers 1,000 ML 999 ML IV ×2 (10:36→14:53)
[2022-06-14] MEDS: Magnesium 1 GM over 15 mins IV (10:37)
[2022-06-14] MEDS: Acetaminophen 500 MG Tablet 1000 MG PO (10:40)
[2022-06-14] MEDS: Gabapentin 600 MG Tablet PO (10:41)
[2022-06-14] MEDS: Celecoxib 200 MG Capsule 400 MG PO (10:41)
[2022-06-14 10:50] LABS: Bedside Glucose 102 mg/dL (74-106)
[2022-06-14] MEDS: Lactated Ringers 1,000 ML 15 ML IV (11:00)
--- NOTE | 2022-06-14 12:30 | SHO_PTH ---
PATIENT: BEAN BURCH LOC: [facility] U#:[id number] AGE/SX: 62/F ROOM: AK310 RE06/14/[address]: Dr. Fracisco Cortez MD : 1960 BED: 1 DIS: 06/15/2022 SPEC #: [id number] RECD: 06/15/22 08:12 STATUS: RAQUEL KOVACSTosha #: [id number] NATE: 06/14/22 12:[address]: Fracisco Cortez DEPT: SURGICAL PATHOLOGY RECD BY: Ginger Lin ENTERED: 06/15/22 10:56 SP TYPE: HUMERUS OTHR DR: MD Dr. Ganga Merritt MD Tissues: Humerus, NOS Procedures: Decalcification bone/plaque Surgery Specimen Level IV HEADER OPERATION: ERAS, total shoulder replacement PRE-OP DIAGNOSIS: Right shoulder osteoarthritis with rotator cuff insufficiency TISSUE SUBMITTED: Bone right shoulder MICROSCOPIC DIAGNOSIS Bone and tissue, right shoulder, total shoulder replacement: Severe degenerative joint disease. AM:haider 06/21/2022 MICROSCOPIC DESCRIPTION Slides are reviewed. GROSS DESCRIPTION Received is one container designated bone right shoulder. The specimen consists of a total shoulder resection specimen consisting of a discoid fragment of pfeiffer bone with articular surface measuring 7 x 5 x 2 cm. The articular surface shows areas of bone erosion, osteophyte formation and eburnation. A second fragment of bone measures 3 x 2.2 x 2 cm. Print Support Specialist sections are submitted in two cassettes after decalcification as follows: 1 ? larger fragment, 2 ? smaller fragment. / AM:haider 06/15/2022 TC:5 CPT: 97335, 58275
[2022-06-14] MEDS: Cefazolin 2 GM in 0.9% Normal Saline 100 ML IV (13:10)
--- NOTE | 2022-06-14 14:17 | PCM.OPRPT ---
Report of Operation Date of Procedure: 06/14/22 Pre-Operative Diagnosis: Right shoulder osteoarthritis, rotator cuff dysfunction Post-Operative Diagnosis: Right shoulder osteoarthritis, rotator cuff dysfunction Surgery/Procedure Performed:: Right reverse total shoulder replacement Description of Surgical Findings:: Stable shoulder Surgeon: Fracisco Cortez cardiograph operator: Evan Sexton Type of Anesthesia: General Anesthesiologist: Hugh Dupree Special Medications: 2 g Ancef, 1 g TXA at incision, 1 g TXA closure, 10 mg Decadron, joint cocktail (5 mg Duramorph, 30 mL of 0.5% Ropivicaine, 1000 units of epinephrine, 30 mg of Toradol) Specimen's removed: Bony cuts Estimated Blood Loss (mL): 250 Fluids Replaced: 1000 mL crystalloid Description of Procedure: Components used 1. Anu reunion glenoid baseplate 2. [place] reunion eccentric 36 mm, 2 mm Glenosphere 3. Anu reunion 36 mm, 4mm humeral liner 4. Anu reunion reverse TSA humeral adapter tray 2mm 5. Anu reunion humeral stem primary press-fit 8mm size Brief history/Operative indications: 62 yo F with history of R shoulder pain and cuff tear arthropathy. Patient failed conservative measures as mentioned in the H&P. After discussion of risk and benefits of reverse total shoulder replacement including but not limited to blood loss, DVTs, PEs, nerve vessel damage, infection, general risk of anesthesia including loss of life, instability and stiffness patient demonstrating understanding wish to proceed was able to sign informed consent. Medical clearance was obtained. Procedure: On the date of the procedure, patient's R upper extremity was marked in the preoperative area. Patient was taken back to the operating room where they were placed on the table in the supine position. Anesthesia assumed control of the C-spine and airway, then administered anesthetic. All bony prominences were identified well-padded, the head was secured and the patient was placed in the beachchair position at about 35? inclination. Anesthesia remained in control of the C-spine airway throughout the remainder of the procedure. Patient was then appropriately fastened to the table and the R upper extremity was prepped in a sterile fashion. The surgeons then scrubbed. Upon reentering the room, the R upper extremity was draped in a sterile fashion and the incision was marked out. Timeout was called, everyone agreed upon the side, the site, the procedure to be performed, patient identity and antibiotics given. Incision was taken down through skin and subcutaneous tissue, fat down to fascia. The stripe of the deltopectoral interval and cephalic vein were identified and blunt dissection was used to retract the deltoid. The cephalic vein was retracted laterally. Clavipectoral fascia was then incised and a cobra retractor was placed in the wound. The proximal one third of the pectoralis major insertion was released. Pectoralis tendon insertion was used to tenodesed the biceps tendon which was identified in the bicipital groove. Tenodesis was done with #1 Vicryl. Proximally we followed the biceps tendon after transecting it into the rotator interval. The rotator interval was split and the arm was externally rotated. The split was 1 cm medial to the bicipital groove. Subscapularis tendon was released. We released down the anterior portion of the humeral head and a tirado elevator was used to release the inferior portion of the humeral head. The arm was externally rotated and the shoulder was dislocated. The humeral head was then cut at its natural retroversion. Once his humeral head cut was made humerus was retracted out of the way and the glenoid was exposed. After exposing the glenoid, the labrum and the remaining proximal biceps were debrided. At this time we are able to view the entire outer edge of the glenoid. A central pin was placed we sequentially reamed over this central pin to 36mm. Once this was completed the central screw was measured and found to be. The glenoid baseplate was screwed into place. Wound was closely irrigated out with normal saline we then drilled sequentially for 2 screws. Screws were placed superiorly and inferiorly and tightened down the screws. Once the screws were appropriately tightened into place the glenoid baseplate was compressed against the exposed subchondral bone. A 36mm glenosphere was impacted into place engaging the Daniels taper. Attention was then turned towards the humerus. The humerus was again externally rotated exposing the proximal portion of the humerus. Central canal finder was then used to open up the canal. We reamed to a 9mm reamer. We then broached to a 8mm stem. We trialed the 4mm liner, with the 2mm humeral baseplate. We obtained an adequate reduction at this time with a nice stable shoulder. Good internal rotation to the gluteus, forward elevation to 140?, external rotation to 20?. Final components were then assembled on the back table, trials were removed and the wound was copiously irrigated with normal saline after dislocating the shoulder. Once the final components were assembled they were impacted into place. Shoulder was then reduced and found to be stable with good range of motion. Subscapularis tendon was repaired using #2 FiberWire and bone tunnels. The wound was with chlorhexidine solution then copiously irrigated out with a 1 L normal saline lavage. The deltopectoral fascia was then closed using #1 Vicryl skin was closed using 2-0 Vicryl interrupted sutures and final skin closure was done with 3-0 Monocryl. Steri-Strips are placed for final skin closure. Sterile dressing was placed patient was then placed in a sling and awakened by anesthesia. Patient was then transferred to the PACU for recovery. Postoperative plan: Patient will be admitted to the hospital overnight. They will get physical therapy starting in 2 weeks with normal postoperative regimen. Patient will be placed on [] for DVT prophylaxis. The first postoperative appointment will be in 2 weeks for wound check and initiation of phase 1 physical therapy. During the course of the procedure the physician speech language pathology assistant played a vital role. His intimate knowledge of my steps in the procedure aided in safe and expedient completion of the procedure. The PA played a vital rolls in positioning particularly in obtaining the appropriate beach chair position and securing the patient's body and head to the table. The PA was also vital in the retraction of soft tissues during the exposure and especially the glenoid work as this is a vital part of the procedure to prevent neurovascular damage. the PA was also vital and protecting soft tissues during times of bony cuts and reaming. He also played a vital role in closure with my direct supervision. The PA was also important during reduction and dislocation of the joint and trials intraoperatively. Complications No intraoperative complications Admit VTE Documentation VTE Present on Admission: No VTE Mechan Device Prophylaxis: SCD's VTE Pharm Prophylaxis ordered?: Yes
--- NOTE | 2022-06-14 15:15 | RAD_ITS ---
STUDY: X-RAY - RIGHT SHOULDER REASON FOR EXAM: Female, 62 years old. Post op -- AP and Lateral X-Ray of operative shoulder in PACU TECHNIQUE: 2 view(s) of the shoulder. COMPARISON: None. FINDINGS: The patient is status post right shoulder replacement. There is good alignment. Postoperative soft tissue changes. RAD/Shoulder min 2 Views IMPRESSION: Status post right shoulder replacement. There is good alignment. Postoperative soft tissue changes. Electronically Signed: Alexandre Suggs MD at 15:33 EDT ,
[2022-06-14] MEDS: Lactated Ringers 1,000 ML 125 ML IV (19:00)
[2022-06-14] MEDS: Aspirin 81 MG TAB.CHEW PO (19:02)
--- NOTE | 2022-06-14 19:22 | PCM.PN.HOSP ---
Subjective Subjective Patient denies any current pain to the right shoulder status post right total shoulder but does report that she still has significant sensation deficits from block. Patient currently has icing machine on and initially did have the arm brace in a more frontier manner therefore was corrected and educated her to keep it at her side. Patient does report and confirmed HUBER history supposed to be on CPAP nightly however she notes that she has had some difficulty continuing this since she had COVID secondary to anxiety with dyspnea as a result. Discussed at length and patient is amenable to trying here while inpatient. Patient denies fevers, chills, nausea, emesis, abdominal pain, chest pain or dyspnea. Objective Data Objective Data Vital Signs: Vital Signs Temp Pulse Resp BP Pulse Ox O2 Del Method O2 Flow Rate 98.8 F 57 L 18 112/61 94 Nasal Cannula 2 06/14/22 18:34 06/14/22 18:34 06/14/22 18:34 06/14/22 18:34 06/14/22 18:34 06/14/22 18:53 06/14/22 18:53 Oxygen Flow Rate (L/min) 2 Oxygen Delivery Method Nasal Cannula Weight: 194 lb 0.108 oz Body Mass Index (BMI) 29.5 Intake & Output: Intake and Output for Last 24 Hours 06/12/22 06/13/22 06/14/22 23:59 23:59 23:59 Intake Total 2332 / 2332 Balance 2332 / 2332 Lab / Micro Data Result Diagrams: 06/09/22 14:43 06/05/22 08:48 Labs: Laboratory Results - last 24 hr 06/14/22 10:30: POC Glucose 102 Micro: Microbiology 06/05/22 08:48 Swab (Method) Nasal Screen MRSA/MSSA - Final Radiography Diagnostic Testing: Radiology Impression Shoulder X-Ray 06/14/22 15:15 IMPRESSION: Status post right shoulder replacement. There is good alignment. Postoperative soft tissue changes. Electronically Signed: Alexandre Suggs MD at 15:33 EDT , Physical Exam Narrative Physical Examination: General: Awake, alert, oriented x 3 and cooperative, seated upright in medical surgical bed in no apparent distress. Skin: Normal color, normal turgor, no icterus, no cyanosis except recent right total shoulder with dressings in place, no drainage. HEENT: AT/NC, EOMI, PERRLA, mildly dry MM, no carotid bruits or JVD noted. Lungs: Mildly diminished, greater bases, poor effort, no rales, ronchi or wheezing. Heart: Regular rate and rhythm; no gallop, rub audible. Abdomen: Soft, overweight, NTTP, ND, distant normal BS, no HSM. Extremities: No cyanosis, no clubbing, mild RUE swelling, peripheral pulses intact, block still in effect. Neurological: Patient awake, alert, oriented x 3, cognitive function intact; pupils equally reactive to light and accommodation, cranial nerves II-XII grossly normal, moving extremities except RUE secondary to recent block with R T shoulder surgery, strength moderately to severely globally decreased secondary to acute presentation. Psychiatric: Affect appears fatigued otherwise normal, no acute evidence of depressive or anxiety feelings. Assessment & Plan Assessment/Plan (1) Osteoarthritis, shoulder: PLAN: Plan The patient is a 62 y/o F w/ PMHx: Overweight, Hx Ascending aortic aneurysm, Hx COVID Acute Viral Syndrome, HUBER on CPAP q HS, GERD, HTN, HLD, Depression and Anxiety, RLS, Valvular Heart Disease, Allergic rhinitis who presents to the [facility] on 06/14/22 for planned R reverse total shoulder replacement per Dr. Cotrez secondary to severe R shoulder osteoarthritis and rotator cuff dysfunction. #1. Severe Osteoarthritis, R shoulder w/ rotator cuff dysfunction concurrently: Failed conservative therapies and treatments, admitted per Dr. Cortez for planned R reverse total shoulder replacement, post-operative pain management, bowel regimen, DVT Prophylaxis, PT/OT/CM per Orthopedic surgery discretion. #2. Hypertension: Will continue home metoprolol, losartan home regimen, PRN Hydralazine. #3. Hyperlipidemia: Will continue home statin therapy. #4. Valvular Heart Disease: 02/25/19 ECHO w/ normal LV systolic fx, EF 55%, mild MVI, mild to moderate TVI, mild to moderate DELANEY, mildly dilated ascending aorta, RVSP 24 mmHg. #5. Hx Acute COVID-19 Viral Syndrome: Patient notes history of COVID illness and increased anxiety associated since her illness, including difficulty with her CPAP as a results. #6. HUBER: Discussed at length and will trial CPAP q HS while hospitalized as patient has had notable anxiety using her device at home since her COVID illness. #7. Hx Ascending aortic aneurysm: 08/18/21 CTA Chest with mild dilatation of the proximal ascending aorta measuring approximately 4.2 cm in size, see recent ECHO above also, continue to follow outpatient. #8. Anxiety and Depression: Will continue home trazodone, sertraline, ativan home regimen. #9. Overweight: Lifestyle and diet changes encouraged. #10. GERD: Will continue home PPI, carafate regimen. #11. DVT prophylaxis: SCDs, chemoprophylaxis per ED discretion. Charges/Coding Visit Charges Inpatient E&M: 47607 Subs Hosp L3
[2022-06-14] MEDS: Cefazolin 1 GM/50 ML BAG IV (20:12)
[2022-06-14] MEDS: traZODone 100 MG Tablet 200 MG PO (20:13)
[2022-06-14] MEDS: Senna/Docusate Sodium 1 Tablet 2 TABLET PO (20:14)
[2022-06-14] MEDS: Sucralfate 1 GM Tablet PO (20:14)
[2022-06-14] MEDS: Sertraline 100 MG Tablet PO (20:15)
[2022-06-14] MEDS: Atorvastatin Calcium 20 MG Tablet PO (20:16)
[2022-06-14] MEDS: Ketorolac 15 MG/ML Vial IV (20:18)
[2022-06-15 02:33] VITALS: BP 141/51; PULSE 54; RESP 16; TEMP 36.6; O2SAT 95; BMI 29.5
[2022-06-15] MEDS: Cefazolin 1 GM/50 ML BAG IV (06:00)
[2022-06-15 06:05] VITALS: BP 131/67; PULSE 50; RESP 16; TEMP 37; O2SAT 94
[2022-06-15 06:15] LABS: Hematocrit 35.8 % (37-47); Hemoglobin 11.6 g/dL (12.0-15.0); Mean Corp Hgb Conc 32.4 g/dL (32-36); Mean Corpuscular Volume 95.7 fL (81-99); Mean Platelet Vol. 11.9 fl (6.2-12.0); Platelet Count 220 K/mm3 (150-450); RBC Distribution Width CV 12.4 % (11.6-14.6); RBC Distribution Width SD 42.7 fl (35.1-43.9); Red Blood Count 3.74 M/mm3 (4.2-5.4); White Blood Count 11.9 K/mm3 (4.4-11.0)
[2022-06-15] MEDS: Sucralfate 1 GM Tablet PO (06:17)
[2022-06-15 06:26] VITALS: BP 131/67; PULSE 54; RESP 18; TEMP 37; O2SAT 92; BMI 29.5
[2022-06-15 07:06] LABS: Anion Gap 10 (5-15); BUN 18 mg/dL (7-18); BUN/Creat Ratio 20.1 RATIO (10-20); Calcium,Total 8.9 mg/dL (8.5-10.1); Chloride 104 mmol/L (98-107); EST Glomerular Filtration Rate 67 mL/min (>60); Est Glom Filt Rate - Afr Amer 82 mL/min (>60); Glucose 133 mg/dL (74-106); Potassium 4.2 mmol/L (3.5-5.1); Sodium Level 139 mmol/L (136-145)
--- NOTE | 2022-06-15 07:10 | PCM.PN.HOSP ---
Subjective Subjective Follow-up on postop medical management/reverse total arthroplasty of the right shoulder: Patient was seen and examined. She denied any new complaints. Her pain is fairly controlled. Objective Data Objective Data Vital Signs: Vital Signs Temp Pulse Resp BP Pulse Ox O2 Del Method O2 Flow Rate 98.6 F 54 L 18 131/67 H 92 Room Air 2 06/15/22 06:26 06/15/22 06:26 06/15/22 06:26 06/15/22 06:26 06/15/22 06:26 06/15/22 06:26 06/15/22 02:33 Oxygen Flow Rate (L/min) 2 Oxygen Delivery Method Room Air Weight: 88 kg Body Mass Index (BMI) 29.5 Intake & Output: Intake and Output for Last 24 Hours 06/13/22 06/14/22 06/15/22 23:59 23:59 23:59 Intake Total 3567.42 / 3567.42 1327.08 / 1327.08 Balance 3567.42 / 3567.42 1327.08 / 1327.08 Lab / Micro Data Result Diagrams: 06/15/22 05:05 06/15/22 05:05 Labs: Laboratory Results - last 24 hr 06/14/22 10:30: POC Glucose 102 06/15/22 05:05: WBC 11.9 H, RBC 3.74 L, Hgb 11.6 L, Hct 35.8 L, MCV 95.7, MCH 31.0, MCHC 32.4, RDW Std Deviation 42.7, RDW Coeff of Roshan 12.4, Plt Count 220, MPV 11.9 06/15/22 05:05: Sodium 139, Potassium 4.2, Chloride 104, Carbon Dioxide 25.0, Anion Gap 10, BUN 18, Creatinine 0.90, Estim Creat Clear Calc 63.70, Est GFR (MDRD) Af Amer 82, Est GFR (MDRD) Non-Af 67, BUN/Creatinine Ratio 20.1 H, Glucose 133 H, Calcium 8.9 Micro: Microbiology 06/05/22 08:48 Swab (Method) Nasal Screen MRSA/MSSA - Final Radiography Diagnostic Testing: Radiology Impression Shoulder X-Ray 06/14/22 15:15 IMPRESSION: Status post right shoulder replacement. There is good alignment. Postoperative soft tissue changes. Electronically Signed: Alexandre Suggs MD at 15:33 EDT , Physical Exam Narrative Physical exam: General: Alert, Oriented x3, Cooperative, No apparent distress HEENT: Atraumatic Oral: Moist Mucosa Neck: Supple Lungs: Clear to auscultation Cardiovascular: HS I+II, regular, no murmurs Abdomen: Bowel Sounds Present, Soft, Non Tender Extremities: No edema, right shoulder in a sling, able to wiggle her fingers Skin: No rashes, No breakdown Neurological: Grossly intact Psych/Mental Status: Appropriate Assessment & Plan Assessment/Plan (1) Status post reverse total arthroplasty of right shoulder: PLAN: Plan 1.POD #1 status post reverse right shoulder arthroplasty Patient with underlying severe osteoarthritis of the right shoulder with rotator cuff dysfunction Failed outpatient conservative therapy and treatments Her pain is fairly controlled PT and OT consulted to evaluate and treat Follow-up on orthopedic 2. Hypertension, controlled, continue metoprolol, losartan 3. Hyperlipidemia, continue statin 4. 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 HUBER, needs to be on CPAP 6. Anxiety/depression, continue home regimen of trazodone, Zoloft, Ativan 7. GERD, continue PPI Patient is medically stable for discharge Charges/Coding Visit Charges Office Visits / Consults: 28838 OP Consult L5
[2022-06-15] MEDS: Vitamin B Comp W-C Capsule 1 CAP PO (08:27)
[2022-06-15] MEDS: Ensure Surgery 237 ML LIQUID PO (08:27)
[2022-06-15] MEDS: Aspirin 81 MG TAB.CHEW PO (08:27)
[2022-06-15] MEDS: Cholecalciferol (Vit D3) 125 MCG CAPSULE (5,000 UNITS) 250 MCG PO (08:27)
[2022-06-15] MEDS: Multivitamins,Therapeutic Tablet 1 TABLET PO (08:27)
[2022-06-15] MEDS: Famotidine 20 MG Tablet PO (08:28)
[2022-06-15] MEDS: Magnesium Chloride 64 MG Delay Rel.Tablet 128 MG PO (08:28)
[2022-06-15] MEDS: Losartan Potassium 50 MG Tablet PO (08:28)
[2022-06-15] MEDS: Pantoprazole Sodium 40 MG Tablet PO (08:28)
[2022-06-15 08:29] VITALS: PULSE 54
[2022-06-15] MEDS: Senna/Docusate Sodium 1 Tablet 2 TABLET PO (08:29)
[2022-06-15] MEDS: Fluticasone 0.05% 1 SPRAY NASAL.SRY 2 SPRAY NASAL (08:34)
--- NOTE | 2022-06-15 09:51 | PCM.PN.ORT ---
Subjective Subjective The patient was sitting in bed upon examination. Patient denies any chest pain, shortness of breath, dizziness, lightheadedness, nausea or vomiting, or calf pain. Pain is controlled on medications. No adverse overnight events. Overall patient is doing well. She states the numbness and tingling is nearly resolved from the block. Objective Data Objective Data Vital Signs: Vital Signs Temp Pulse Resp BP Pulse Ox O2 Del Method O2 Flow Rate 98.6 F 54 L 18 131/67 H 92 Room Air 2 06/15/22 06:26 06/15/22 08:29 06/15/22 06:26 06/15/22 06:26 06/15/22 06:26 06/15/22 06:26 06/15/22 02:33 Oxygen Flow Rate (L/min) 2 Oxygen Delivery Method Room Air Weight: 88 kg Body Mass Index (BMI) 29.5 Intake & Output: Intake and Output for Last 24 Hours 06/13/22 06/14/22 06/15/22 23:59 23:59 23:59 Intake Total 3567.42 / 3567.42 1327.08 / 1327.08 Balance 3567.42 / 3567.42 1327.08 / 1327.08 Lab / Micro Data Result Diagrams: 06/15/22 05:05 06/15/22 05:05 Labs: Laboratory Results - last 24 hr 06/14/22 10:30: POC Glucose 102 06/15/22 05:05: WBC 11.9 H, RBC 3.74 L, Hgb 11.6 L, Hct 35.8 L, MCV 95.7, MCH 31.0, MCHC 32.4, RDW Std Deviation 42.7, RDW Coeff of Roshan 12.4, Plt Count 220, MPV 11.9 06/15/22 05:05: Sodium 139, Potassium 4.2, Chloride 104, Carbon Dioxide 25.0, Anion Gap 10, BUN 18, Creatinine 0.90, Estim Creat Clear Calc 63.70, Est GFR (MDRD) Af Amer 82, Est GFR (MDRD) Non-Af 67, BUN/Creatinine Ratio 20.1 H, Glucose 133 H, Calcium 8.9 Micro: Microbiology 06/05/22 08:48 Swab (Method) Nasal Screen MRSA/MSSA - Final Radiography Diagnostic Testing: Radiology Impression Shoulder X-Ray 06/14/22 15:15 IMPRESSION: Status post right shoulder replacement. There is good alignment. Postoperative soft tissue changes. Electronically Signed: Alexandre Suggs MD at 15:33 EDT , Physical Exam Narrative Vital signs stable, afebrile Dressing is clean, dry, intact Ultra-sling fitting appropriately Sensation intact to axillary, radial, median, and ulnar distribution Motor intact to AIN, PIN, and ulnar nerve Const alert, oriented x3 and no apparent distress Assessment & Plan Assessment/Plan (1) Status post reverse total arthroplasty of right shoulder: PLAN: 1. S/P right reverse total shoulder arthroplasty POD #1 2. Continue Pain Medications: [place]. Discussed with the patient I do not want her to take more than 3000 mg of Tylenol in 24-hour period. She voiced understanding agreement. If she has not requiring the [place] she can use [id number] extra strength Tylenol as needed. 3. DVT Prophylaxis: Aspirin 81 mg twice daily for 2 weeks postoperatively 4. PT/OT: Continue with UltraSling at all times except to come out for range of motion exercises of the elbow and pendulum exercise 3 times daily. No range of motion of the postoperative shoulder until outpatient physical therapy begins. Outpatient physical therapy will begin 2 weeks postoperatively after follow-up with [facility] with x-rays and incision check. 5. H & H: 11.6/35.8, asymptomatic. Postoperative anemia secondary to acute blood loss from surgery without any intra operative complications. 6. Reactive leukocytosis: Currently 11.9, afebrile. 7. Encouraged Incentive Spirometry 8. Disposition: Plan will be for probable discharge home today as she is doing well. Pain is well controlled. Patient has outpatient physical therapy established to begin at 2 weeks postoperatively. She will follow-up with our office in 2 weeks with follow-up x-rays. She would like her prescriptions E scribed [facility]. She will contact her office upon discharge with any concerns or questions. I have reviewed the [place] Automated Rx Reporting System (OARRS) report for this patient for refill pattern and other prescriber involvement as part of the appropriate surveillance for the provision of acute and chronic controlled medications. The report was requested and reviewed on the date of this entry and was considered in the prescribing process. This dictation was created using voice recognition software. Phonetic and/or grammatical errors may exist.
--- NOTE | 2022-06-15 09:57 | DCINST_ITS ---
Discharge Instructions Diet Discharge Diet: No restrictions Activity Discharge Activity: May Not Drive (No driving for 6 weeks postoperatively.) May shower in (days): 1 (Dressing must be intact to skin. Turn dressing away from water.) Ice area for (Minutes): 20 (Every 1-2 hours while awake[address] Please place barrier between skin and ice pack.) Weight Bearing Status: No weight bearing (Postoperative upper extremity) Additional Activity Instructions:: Continue with UltraSling at all times. Please come out of UltraSling 3 times daily working on elbow range of motion and pendulum exercises. No range of motion of postoperative shoulder. Will begin outpatient physical therapy after 2-week scheduled follow-up. Dressing / Incision Call your doctor if your incision/area has: Continuous Slow Oozing, Sudden Increased Bleeding, Increased Pain/ Swelling, Increased Redness and Foul Smelling Discharge Call your doctor if you observe: Fever of 101 or Higher, Shortness of breath, Chest pain and Uncontrolled pain Remove Dressing in: 4 days (Okay to remove on June 19, 2022) Additional Dressing/Incision Instructions:: Follow [facility] Post-op Instructions. Once postoperative dressing has been removed only use gentle soap and water over the incision. Do not use any ointments, Neosporin, salves, alcohol pads over the incision for 6 weeks postoperatively. Do not submerge underwater for 6 weeks postoperatively. Do NOT use alcohol with narcotic pain medication. Do NOT make important decisions while taking narcotic medication. If you have problems with taking your medication (rash, itching, nausea, etc.) call the office at once. If taking [place] for postoperative pain control do not take additional Tylenol. Must not take more than 3,000 mg of Tylenol in 24-hour period. Follow Up Care Test Results: Test results from this visit will be discussed in further detail at your follow- up appointment, if applicable. Discharge Plan Admission Admit Date/Time: 06/14/22 15:56 Attending Provider: Fracisco Cortez Primary Care Provider: Ganga Nunez Consulting Providers: Johanne Zelaya Discharge Orders/Prescriptions Prescriptions: New aspirin 81 mg Tablet,Chewable 81 mg PO BIDCM 14 Days Qty: 28 0RF Rx Instructions: Take for 2 weeks postoperatively for DVT prophylaxis hydrocodone-acetaminophen 5-325 mg Tablet 2 tab PO Q6H PRN PRN (Reason: Pain Score 6-10) 5 Days Qty: 48 0RF Rx Instructions: Take 1 to 2 tablets every 6 hours as needed for pain sennosides-docusate sodium [Stool Softener-Stimulant Laxat] 8.6-50 mg Tablet 2 tab PO BID Qty: 20 0RF Rx Instructions: Take until first bowel movement, then as needed Continued meloxicam 15 mg tablet 15 mg PO DAILY trazodone 100 mg tablet 200 mg PO QHS sertraline 100 mg tablet 100 mg PO DAILY atorvastatin 20 mg tablet 20 mg PO QHS cholecalciferol (vitamin D3) 125 mcg (5,000 unit) tablet 10,000 unit PO DAILY metoprolol succinate 100 mg tablet extended release 24 hr 100 mg PO DAILY hydroxyzine HCl 10 mg tablet 10 mg PO QHS PRN (Reason: Anxiety) fluticasone propionate 50 mcg/actuation spray,suspension 2 spray intranasal DAILY collagen + vitamin c 1,000 mg PO DAILY biotin 5,000 mcg tablet, sublingual 5,000 mcg sublingual DAILY vitamin B complex 1 EACH capsule 1 ea PO DAILY Label Comments: Vitamin supplment magnesium 200 MG tablet 300 mg PO DAILY Label Comments: Magnesium-supplement multivitamin with folic acid 1 TABLET tablet 1 tab PO DAILY lorazepam 0.5 mg Tablet 1 mg PO DAILY PRN PRN (Reason: Anxiety) Qty: 18 0RF albuterol sulfate 90 mcg/actuation HFA aerosol inhaler 1 inh inhalation Q6H PRN (Reason: shortness of breath or wheezing) Qty: 8.5 0RF sucralfate [Carafate] 1 gram Tablet 1 g PO 4X/DAY omeprazole 40 mg Capsule,Delayed Release(Dr/Ec) 40 mg PO DAILY losartan 50 mg tablet 50 mg PO DAILY Qty: 30 11RF Referrals / Follow Up: Physical,Therapy [Other] - 06/29/22 4:00 pm Ganga Nunez MD [Primary Care Provider] - Evan Sexton PA-C [Med Staff - Count Includes [facility]] - 06/29/22 3:15 pm Disposition Disposition (needs filled in before D/C Order can be placed): Home, Self Care
[2022-06-15 10:33] VITALS: BP 129/61; PULSE 54; RESP 18; TEMP 36.4; O2SAT 94; BMI 29.5
--- NOTE | 2022-06-15 10:50 | CASEMGMT ---
RN CM CHANGE CONSULTANT CM to room to meet with patient for initial transition planning/care coordination assessment. RN ITZ introduced self and role at [facility]. Pt voices understanding and consents to assessment at this time. Pt sitting up in recliner chair in no distress at this time. States she is anxious to discharge home. @ bedside. Pt is A/O at this time and answers all questions appropriately. Care providers, pharmacy, and demographics verified/updated at this time. PCP: Dr Nunez Specialists: Dr Cortez-ortho, Dr Blunt-ortho, Dr Menendez-cardio, Dr Quarles-pulmonology, Dr Montez-GI Preferred [facility]acy: [facility] Insurance: [employer]. Prescription Benefit: Yes Living Will/HPOA: States does not have LW or HCPOA . Interested in more information. Aware SW can assist w/completing if she wishes. Pt states is anxious to discharge home. Made aware this can be completed as an OP as well. Provided w/ Social Service rac card with number to call if chooses in the future. Patient expresses understanding. LNOK: [place] Living Arrangements: Lives w/ in 2-story home. Can do FFSU, if needed. Was independent w/ADL's @ baseline. can assist as needed. Transportation: does most of the driving. DME: States has the following DME: States she wears O2 @ 1-2 l/m PRN and @ HS from [employer]. She has portability and a concentrator. She has a nebulizer, pulse ox, cane, senior corporate accountant, UltraSling and brace for right arm. She has a CPAP but has not been using it. Pt also has a shower chair, but does not use it. Pt states no need for further DME at this time. HHC/SNF: No hx of SNF. Has had [facility] in the past. Pt has an appt @ [facility] for OP therapy on 06/29 @ 4 PM. Pt wishes to return home and states has no concerns with going home at time of discharge. CM to follow for any further discharge planning/needs. Pt and voice no further concerns/needs at this time. PLAN: Home Tressa LYONS RN, CM
[2022-06-15] MEDS: HYDROcodone Bitartrate/Apap 5/325 Tablet PO (11:27)
--- NOTE | 2022-06-15 13:10 | PHA.DC.MR ---
Pharmacy Service has performed discharge medication reconciliation for this patient. The patient's discharge medication list was reviewed for discrepancies and discrepancies were resolved. Medication education papers printed, unable to classification counselor before discharged. Medications reviewed. Home Medications magnesium 200 mg tablet 300 mg PO DAILY VITAMIN 03/24/16 vitamin B complex 1 ea PO DAILY VITAMIN 03/24/16 multivitamin with folic acid 400 mcg tablet 1 tab PO DAILY 06/17/17 losartan 50 mg tablet 50 mg PO DAILY #30 tabs 03/11/21 meloxicam 15 mg tablet 15 mg PO DAILY 04/18/21 albuterol sulfate 90 mcg/actuation aerosol inhaler 1 inh inhalation Q6H PRN shortness of breath or wheezing #8.5 grams 05/31/21 lorazepam 0.5 mg tablet 1 mg PO DAILY PRN PRN Anxiety #18 tabs 05/31/21 sertraline 100 mg tablet 100 mg PO DAILY 10/24/21 trazodone 100 mg tablet 200 mg PO QHS 10/24/21 atorvastatin 20 mg tablet 20 mg PO QHS 01/25/22 biotin 5,000 mcg sublingual tablet 5,000 mcg sublingual DAILY 01/25/22 cholecalciferol (vitamin D3) 125 mcg (5,000 unit) tablet 10,000 unit PO DAILY 01/25/22 collagen + vitamin c 1,000 mg PO DAILY 01/25/22 fluticasone propionate 50 mcg/actuation nasal spray,suspension 2 spray intranasal DAILY 01/25/22 hydroxyzine HCl 10 mg tablet 10 mg PO QHS PRN Anxiety 01/25/22 metoprolol succinate 100 mg tablet,extended release 24 hr 100 mg PO DAILY 01/25/22 omeprazole 40 mg capsule,delayed release 40 mg PO DAILY 05/31/22 sucralfate 1 gram tablet (Carafate) 1 g PO 4X/DAY 05/31/22 aspirin 81 mg chewable tablet 81 mg PO BIDCM 14 days #28 tabs 06/15/22 hydrocodone-acetaminophen 5-325mg 5mg-325mg 2 tab PO Q6H PRN PRN Pain Score 6-10 5 days #48 tabs 06/15/22 sennosides 8.6 mg-docusate sodium 50 mg tablet (Stool Softener-Stimulant Laxative) 2 tab PO BID #20 tabs 06/15/22
== END 2022-06-15 11:38 | disposition home or self-care (01) ==
LOC: SDC 15:57 → MS3 15:57
PROVIDERS: Anesthesiology; Admitting Provider Specialist; PCP Family Medicine; Referring Provider Specialist; Visit Provider Specialist
PROC: (CPT 23472; principal; 2022-06-14 12:00)
DX: M19.111 Post-traumatic osteoarthritis, right shoulder (principal); G91.9 Hydrocephalus, unspecified; I10 Essential (primary) hypertension; Z86.16 Personal history of COVID-19; E78.5 Hyperlipidemia, unspecified; R73.03 Prediabetes; E78.00 Pure hypercholesterolemia, unspecified; Z79.891 Long term (current) use of opiate analgesic; I71.20 Thoracic aortic aneurysm, without rupture, unspecified; M79.7 Fibromyalgia; F41.9 Anxiety disorder, unspecified; Z79.899 Other long term (current) drug therapy; M75.41 Impingement syndrome of right shoulder; M75.101 Unspecified rotator cuff tear or rupture of right shoulder, not specified as traumatic; G47.33 Obstructive sleep apnea (adult) (pediatric); K21.9 Gastro-esophageal reflux disease without esophagitis; F32.A Depression, unspecified; Z86.2 Personal history of diseases of the blood and blood-forming organs and certain disorders involving the immune mechanism
CPT/HCPCS: 23472; 01638; 64415; 36415; 73030; 80048; 80076; 82962; 83735; 85025; 85027; 85610; 85730; 87081; 88305; 88311; 93005; 96361; 96365; 96366; 96375; 97166; 99218; 99251; C1776; J7120; G0378; G0463; J2405; J3475

== ENCOUNTER 2022-08-14 17:32 | Emergency (ER) | payer OTHER, MEDICAID, SELFPAY ==
[2022-08-14 17:34] VITALS: PULSE 69; RESP 18; TEMP 37.2; O2SAT 94; BMI 30.5
--- NOTE | 2022-08-14 17:42 | RAD_ITS ---
INDICATION: sob EXAMINATION/TECHNIQUE: X-RAY - XR Chest 1 View COMPARISON: 08/18/2021. FINDINGS: LINES/DEVICES: None. LUNGS: No consolidation, edema or effusion. No pneumothorax. MEDIASTINUM AND CARDIOVASCULAR STRUCTURES: Cardiac silhouette not enlarged. Central airways and mediastinal contour are unremarkable. BONES AND SOFT TISSUES: Prior right shoulder replacement. Degenerative changes of the left shoulder. RAD/Chest 1 View (Portable) IMPRESSION: No acute cardiopulmonary disease. Electronically Signed: Arline Hemphill MD at 19:14 EST Reading Location ID and State: [id number] / Tel , Service support ,
--- NOTE | 2022-08-14 17:42 | EKG12_ITS ---
Test Reason : cp Blood Pressure : / mmHG Vent. Rate : 072 BPM Atrial Rate : 072 BPM P-R Int : 162 ms QRS Dur : 082 ms QT Int : 394 ms P-R-T Axes : 027 -13 020 degrees QTc Int : 431 ms Normal sinus rhythm Minimal voltage criteria for LVH, may be normal variant ( R in aVL ) Nonspecific ST abnormality Poor R wave progression Abnormal ECG Confirmed by KIARA BENDER, JAM ([id number]), film editor supervisor CAMERON VUONG ([id number]) on 08/16/2022 11:12:05 AM Referred By: Israel Confirmed By:JAM CRAIG MD
--- NOTE | 2022-08-14 18:28 | EX.ED.DYSGE1 ---
HPI History of Present Illness Chief Complaint: General Illness Detail of Chief Complaint: Cough secondary to URI Informant: patient Onset/Context/Timing Onset: Days Context: Gradual Onset Timing: Continuous Maximum Severity: Mild Narrative Narrative: 62-year-old female history of valvular heart disease CAD hydrocephalus prior COVID by a year ago when she is now on home oxygen. States she has had URI symptoms for several days with a cough and fever of 101. Denies vomiting or diarrhea. No dysuria. Prior similar symptoms: Yes Recent Illness/Hospitalization: No PFSH PFSH Medical History Abnormal echocardiogram Abnormal electrocardiogram Acute respiratory failure with hypoxia Alcohol use Anxiety Arthritis Ascending aortic aneurysm Cardiology follow-up encounter COVID-19 CPAP (continuous positive airway pressure) dependence Depression Diverticulitis Easy bruising Essential hypertension Excessive bleeding Fibromyalgia Gastric reflux Heartburn High cholesterol History of diverticulitis History of IBS History of stress test History of tennis elbow Hx of hydrocephalus Hyperlipidemia Leg cramps Neck pain Non-rheumatic tricuspid valve insufficiency Non-smoker Nonrheumatic aortic (valve) insufficiency Nonrheumatic aortic valve disorder, unspecified Nonrheumatic mitral valve disorder, unspecified On home oxygen therapy Post-menopausal Restless legs Sleep apnea Thoracic aneurysm without mention of rupture Tricuspid insufficiency Valvular heart disease Wears glasses Home Medications magnesium 200 mg tablet 300 mg PO DAILY VITAMIN 03/24/16 [History Last Taken 10/11/17 08:00] vitamin B complex 1 ea PO DAILY VITAMIN 03/24/16 [History Last Taken 10/11/17 08:00] multivitamin with folic acid 400 mcg tablet 1 tab PO DAILY 06/17/17 [History Last Taken 10/11/17 08:00] meloxicam 15 mg tablet 15 mg PO DAILY 04/18/21 [History Last Taken Unknown] albuterol sulfate 90 mcg/actuation aerosol inhaler 1 inh inhalation Q6H PRN shortness of breath or wheezing #8.5 grams 05/31/21 [Rx Last Taken Unknown] lorazepam 0.5 mg tablet 1 mg PO DAILY PRN PRN Anxiety #18 tabs 05/31/21 [Rx Last Taken Unknown] sertraline 100 mg tablet 100 mg PO DAILY 10/24/21 [History Last Taken Unknown] trazodone 100 mg tablet 200 mg PO QHS 10/24/21 [History Last Taken Unknown] biotin 5,000 mcg sublingual tablet 5,000 mcg sublingual DAILY 01/25/22 [History Last Taken Unknown] cholecalciferol (vitamin D3) 125 mcg (5,000 unit) tablet 10,000 unit PO DAILY 01/25/22 [History Last Taken Unknown] collagen + vitamin c 1,000 mg PO DAILY 01/25/22 [History Last Taken Unknown] fluticasone propionate 50 mcg/actuation nasal spray,suspension 2 spray intranasal DAILY 01/25/22 [History Last Taken Unknown] metoprolol succinate 100 mg tablet,extended release 24 hr 100 mg PO DAILY 01/25/22 [History Last Taken Unknown] omeprazole 40 mg capsule,delayed release 40 mg PO DAILY 05/31/22 [History Last Taken Unknown] sucralfate 1 gram tablet (Carafate) 1 g PO 4X/DAY 05/31/22 [History Last Taken Unknown] hydrocodone-acetaminophen 5-325mg 5mg-325mg 2 tab PO Q6H PRN PRN Pain Score 6-10 5 days #48 tabs 06/15/22 [Rx Last Taken Unknown] atorvastatin 40 mg tablet 40 mg PO QHS 08/07/22 [History Last Taken Unknown] azelastine 137 mcg (0.1 %) nasal spray aerosol 2 spray intranasal BID PRN 08/07/22 [History Last Taken Unknown] calcium carbonate 600 mg calcium (1,500 mg) tablet 600 mg PO DAILY 08/07/22 [History Last Taken Unknown] cetirizine 10 mg capsule (All Day Allergy (cetirizine)) 10 mg PO DAILY 08/07/22 [History Last Taken Unknown] hydroxyzine HCl 10 mg tablet 10 mg PO TID PRN Anxiety 08/07/22 [History Last Taken Unknown] losartan 50 mg tablet 100 mg PO DAILY #30 tabs 08/07/22 [Rx Last Taken Unknown] nitrofurantoin monohydrate/macrocrystals 100 mg capsule 100 mg PO BID 08/07/22 [History Last Taken Unknown] vitamin C 90 mg-zinc gluconate 15 mg-herbal complex no. 325 lozenges (Elderberry Zinc Vit C) crystal mucous membrane BID 08/07/22 [History Last Taken Unknown] Allergy/AdvReac Type Severity Reaction Status Date / Time oxycodone Allergy Swelling Verified 08/14/22 17:32 hydromorphone [From Dilaudid] AdvReac Other Verified 08/14/22 17:32 nabumetone [From Relafen] AdvReac Nausea Verified 08/14/22 17:32 Sulfa (Sulfonamide AdvReac Nausea Verified 08/14/22 17:32 Antibiotics) tramadol HCl [From Ultram] AdvReac Nausea Verified 08/14/22 17:32 Family History Father CAD (coronary artery disease) Mother aneursym Surgical History History of colon surgery (~10/2017) History of hernia repair Hx of appendectomy Hx of rotator cuff surgery Hx of tubal ligation Social History Smoking Status: Never smoker alcohol intake: never substance use type: does not use caffeine: Yes Type: tea Number of servings: 1 what type of physical activity do you participate in: walking frequency: daily duration: < 15 minutes/day seatbelt use: always do you feel safe at home: Yes ROS ROS ED ROS Narrative Cough. Fever. Review of Systems ROS Unobtainable: Denies due to encephalopathy Constitutional Constitutional ED: Reports fever(s); Denies chills Eyes Eyes: Denies blurry vision ENT ENT ED: Reports ear pain and rhinorrhea Cardiovascular Cardiovascular: Denies chest pain or palpitations Respiratory/Chest Respiratory/Chest: Reports cough Gastrointestinal Gastrointestinal: Denies abdominal pain Genitourinary Genitourinary ED: Denies dysuria or hematuria Musculoskeletal Musculoskeletal: Denies arthralgias Integumentary Denies abscess Neurologic Neurologic: Denies headache(s) Psychiatric Psychiatric: Denies anxiety Endocrine Endocrinology: Denies cold intolerance Hematologic/Lymphatic Hematologic/Lymphatic: Reports none Allergic/Immunologic Allergic/Immunologic ED: Denies mouth swelling, tongue swelling or urticaria EXAM Physical Exam Narrative Exam Narrative: 62-year-old female no acute distress. Vital signs stable afebrile. On her 2 L which she has at home she is 94%. Without oxygen she is hypoxic at 87. But again she has home O2. H EENT exam moist Riis members. TMs normal. Nasal congestion. Neck nontender no JVD. No lymphadenopathy. Lungs clear to auscultation bilaterally. No rales no rhonchi no wheezing. Heart regular rhythm rate about 70 no murmur. Abdomen soft nontender. Normal bowel sounds no peritoneal signs. Moving all 4 extremities. Calves nontender no edema no cords. Neurologic exam normal. Awake and alert. No focal motor deficits. Const Vital Signs: 08/14/22 17:34 08/14/22 18:50 08/14/22 18:50 Temperature 98.9 F Temperature Source Temporal Pulse Rate 69 Respiratory Rate 18 17 Respiratory Effort Respiratory Pattern Blood Pressure Blood Pressure Mean Pulse Ox 94 94 94 Oxygen Delivery Method Nasal Cannula Nasal Cannula Nasal Cannula Oxygen Flow Rate (L/min) 2 2 2 08/14/22 18:50 08/14/22 18:56 Temperature 100.4 F H Temperature Source Oral Pulse Rate 74 Respiratory Rate 19 H Respiratory Effort Normal Non-Labored Respiratory Pattern Normal Blood Pressure 171/74 H Blood Pressure Mean 106 Pulse Ox 95 Oxygen Delivery Method Nasal Cannula Oxygen Flow Rate (L/min) 2 Positive well nourished, well developed and obese; Negative for cachectic, contractures or unkempt General Appearance ED: well developed and NAD; Negative for unkempt, cachectic, contractures, cyanotic, diaphoretic or pallor Nutritional Appearance: obese; Negative for cachectic HEENT Reports moist mucous membranes; Denies dry mucous membranes Negative for trauma or tenderness Mouth ED: No dry mucous membranes Mouth: No dry mucous membranes Eyes PERRL and EOMs intact bilaterally General Eye ED: Negative for pale conjunctiva, scleral icterus or other Neck no lymphadenopathy, supple and no JVD General: Negative for tenderness Lymph Lymphatic: Negative for other Chest Wall inspection of chest normal and palpation of chest normal Chest: Negative for other Resp normal respiratory effort and clear to auscultation bilaterally Effort and Inspection: Negative for retractions Auscultation: Negative for rales, rhonchi or wheezes Cardio regular rate, regular rhythm, S1 normal heart sound, S2 normal heart sound and no murmurs Palpation: Negative for palpable S3 Rate: Negative for bradycardia Rhythm: Negative for abnormal rhythm GI normal to inspection, nondistended, normoactive bowel sounds, non-tender, non-distended and no masses Inspection: Negative for abdominal distention Auscultation: normoactive bowel sounds Palpation: soft; Negative for tender, guarding, splenomegaly or mass Back/Spine no CVA tenderness General Back: Negative for CVA tenderness Cervical Spine: Negative for cervical spine tenderness Thoracic Spine / Upper Back: Negative for thoracic spinal tenderness or paraspinal muscle tenderness Lumbar Spine / Lower Back: Negative for lumbar spinal tenderness Extremity normal to inspection General Extremety ED: Negative for edema or tenderness General Extremity: Negative for edema Neuro oriented x3 and CN's II-XII intact bilaterally Sensorium / Orientation: alert; Negative for orientation impaired, lethargic or stuporous Motor Exam: strength 5/5 throughout Psych mental status grossly normal Appearance: Negative for unkempt Attitude: No agitated Mood & Affect: Negative for depressed, anxious or tearful Skin no rashes or lesions noted and no wounds General Skin Exam: elasticity normal; Negative for jaundice or pallor Lesions: No lesion noted Rashes: No rashes noted Trauma: Negative for abrasion Wounds: Negative for wounds noted MDM MDM MDM Narrative Medical decision making narrative: 62-year-old female URI symptoms suspect viral. Has home O2 for hypoxia due to prior long-haul COVID with hypoxia. No chest pain. Undergo screening labs. Exam benign. Lab Data Attestation: I reviewed the patient's lab results. Lab results narrative: COVID and influenza negative. CBC normal white count of 4.9. H&H 12 and 36. Electrolytes normal gap is 6 normal BUN of 14 creatinine of 1. Glucose of 101. Chest x-ray negative Labs: Laboratory Results - last 24 hr 08/14/22 08/14/22 18:43 18:43 WBC 4.9 RBC 3.87 L Hgb 12.0 Hct 36.1 L MCV 93.3 MCH 31.0 MCHC 33.2 RDW Std Deviation 45.4 H RDW Coeff of Roshan 13.3 Plt Count 165 MPV 11.5 Immature Gran % (Auto) 0.400 Neut % (Auto) 59.1 Lymph % (Auto) 18.6 L [place] % (Auto) 21.1 H Eos % (Auto) 0.6 Baso % (Auto) 0.2 Absolute Neuts (auto) 2.9 Absolute Lymphs (auto) 0.92 Nucleated RBC % 0 Sodium 138 Potassium 3.7 Chloride 105 Carbon Dioxide 27.0 Anion Gap 6 BUN 14 Creatinine 1.01 Estim Creat Clear Calc 56.76 Est GFR (MDRD) Af Amer 71 Est GFR (MDRD) Non-Af 59 L BUN/Creatinine Ratio 13.9 Glucose 101 Calcium 9.0 Radiography Chest X-Ray - ED: 1 View, Read by ED Physician, Heart, Lungs, Mediastinum, Bony Structures, No Acute Disease and Chronic Changes Diagnostic Testing: Clinical Impression(s) from Imaging Studies Chest X-Ray 08/14/22 17:42 IMPRESSION: No acute cardiopulmonary disease. Electronically Signed: Arline Hemphill MD at 19:14 EST Reading Location ID and State: [id number] / Tel , Service support , Chest x-ray, portable, single view, interpreted myself shows no acute abnormality. Borderline cardiomegaly. No infiltrate. Old right shoulder prosthesis. Rhythm Strip Rhythm Strip: Sinus Rhythm Rate: 72 Ectopy: None EKG Initial EKG: Attestation: I personally reviewed and interpreted this EKG as follows: Interpretation: Sinus Rhythm and No Acute Injury Pattern Comments: Normal sinus rhythm rate of 72 no acute signs of PR or ischemia. Discharge Plan Triage Chief Complaint: General Illness ED Provider: Dominik Charles Dx/Rx/DC Orders Clinical Impression: Viral URI Instructions: ED URI, Viral, No Abx (Adult) Prescriptions: No Action meloxicam 15 mg tablet 15 mg PO DAILY trazodone 100 mg tablet 200 mg PO QHS sertraline 100 mg tablet 100 mg PO DAILY cholecalciferol (vitamin D3) 125 mcg (5,000 unit) tablet 10,000 unit PO DAILY metoprolol succinate 100 mg tablet extended release 24 hr 100 mg PO DAILY fluticasone propionate 50 mcg/actuation spray,suspension 2 spray intranasal DAILY collagen + vitamin c 1,000 mg PO DAILY biotin 5,000 mcg tablet, sublingual 5,000 mcg sublingual DAILY hydroxyzine HCl 10 mg tablet 10 mg PO TID PRN (Reason: Anxiety) nitrofurantoin monohyd/m-cryst 100 mg capsule 100 mg PO BID Rx Instructions: 5 days atorvastatin 40 mg tablet 40 mg PO QHS All Day Allergy (cetirizine) 10 mg capsule 10 mg PO DAILY azelastine 137 mcg (0.1 %) aerosol,spray 2 spray intranasal BID PRN Rx Instructions: administer into each nostril Elderberry Zinc Vit C 90-15 mg lozenge mucous membrane BID calcium carbonate 600 mg calcium (1,500 mg) tablet 600 mg PO DAILY losartan 50 mg tablet 100 mg PO DAILY Qty: 30 11RF vitamin B complex 1 EACH capsule 1 ea PO DAILY Label Comments: Vitamin supplment magnesium 200 MG tablet 300 mg PO DAILY Label Comments: Magnesium-supplement multivitamin with folic acid 1 TABLET tablet 1 tab PO DAILY lorazepam 0.5 mg Tablet 1 mg PO DAILY PRN PRN (Reason: Anxiety) Qty: 18 0RF albuterol sulfate 90 mcg/actuation HFA aerosol inhaler 1 inh inhalation Q6H PRN (Reason: shortness of breath or wheezing) Qty: 8.5 0RF sucralfate [Carafate] 1 gram Tablet 1 g PO 4X/DAY omeprazole 40 mg Capsule,Delayed Release(Dr/Ec) 40 mg PO DAILY hydrocodone-acetaminophen 5-325 mg Tablet 2 tab PO Q6H PRN PRN (Reason: Pain Score 6-10) 5 Days Qty: 48 0RF Rx Instructions: Take 1 to 2 tablets every 6 hours as needed for pain Primary Care Provider: Ganga Nunez Referrals: Ganga uNnez MD [Primary Care Provider] - 1 Week if not improving Activity Restrictions/Additional Instructions: Plenty of fluids and rest. Alternate Tylenol and Motrin for fever. Use your oxygen all the time until you are feeling better. Follow-up with your doctor if not improving. Return if worse. Disposition Disposition: Home, Self Care
[2022-08-14 18:50] VITALS: RESP 17; O2SAT 94
[2022-08-14 18:53] LABS: Absolute Lymphocyte Count 0.92 X10^3/uL (0.83-4.51); Absolute Neutrophil Count 2.9 X10^3/uL (2.0-7.7); Basophil# 0.01 X10^3/uL; Basophil% 0.2 % (0-1); Eosinophil# 0.03 X10^3/uL; Eosinophils% 0.6 % (0-5); Hematocrit 36.1 % (37-47); Lymphocyte # 0.92 X10^3/ul (0.83-4.51); Lymphocyte % 18.6 % (19-41); Mean Corp Hgb Conc 33.2 g/dL (32-36); Mean Corpuscular Volume 93.3 fL (81-99); Mean Platelet Vol. 11.5 fl (6.2-12.0); Monocyte# 1.04 X10^3/uL; Monocyte% 21.1 % (0-10); NRBC Flagged by Analyzer 0 % (0-5); Neutrophil # 2.92 X10^3/uL (2.7-7.7); Neutrophil % 59.1 % (47-70); Platelet Count 165 K/mm3 (150-450); RBC Distribution Width CV 13.3 % (11.6-14.6); RBC Distribution Width SD 45.4 fl (35.1-43.9); Red Blood Count 3.87 M/mm3 (4.2-5.4); White Blood Count 4.9 K/mm3 (4.4-11.0)
[2022-08-14 18:56] VITALS: BP 171/74; PULSE 74; RESP 19; TEMP 38; O2SAT 95
[2022-08-14 19:06] LABS: Anion Gap 6 (5-15); BUN 14 mg/dL (7-18); BUN/Creat Ratio 13.9 RATIO (10-20); Chloride 105 mmol/L (98-107); Creatinine, Serum 1.01 mg/dL (0.55-1.02); EST Glomerular Filtration Rate 59 mL/min (>60); Est Glom Filt Rate - Afr Amer 71 mL/min (>60); Estimated Creatinine Clearance 56.76 ml/min; Glucose 101 mg/dL (74-106); Potassium 3.7 mmol/L (3.5-5.1); Sodium Level 138 mmol/L (136-145)
[2022-08-14 20:22] VITALS: BP 134/78; PULSE 78; RESP 16; TEMP 36.6; O2SAT 97
== END 2022-08-14 20:27 | disposition home or self-care (01) ==
PROVIDERS: Emergency Provider Emergency Medicine; PCP Family Medicine; Visit Provider Emergency Medicine
DX: J06.9 Acute upper respiratory infection, unspecified (principal); G47.30 Sleep apnea, unspecified; I25.10 Atherosclerotic heart disease of native coronary artery without angina pectoris; Z86.16 Personal history of COVID-19; Z99.81 Dependence on supplemental oxygen
CPT/HCPCS: 71045; 80048; 85025; 87428; 93005; 99283; A4216

== ENCOUNTER → 2022-08-24 | Outpatient (CLI) | payer OTHER, MEDICAID, SELFPAY ==
[2022-08-24 17:07] LABS: Basophil# 0.04 X10^3/uL; Basophil% 0.3 % (0-1); Eosinophil# 0.01 X10^3/uL; Eosinophils% 0.1 % (0-5); Hematocrit 38.2 % (37-47); Hemoglobin 12.9 g/dL (12.0-15.0); Lymphocyte % 20.7 % (19-41); Mean Corp Hgb Conc 33.8 g/dL (32-36); Mean Corpuscular Hgb 30.9 pg (27.0-32.0); Mean Corpuscular Volume 91.4 fL (81-99); Mean Platelet Vol. 12.2 fl (6.2-12.0); Monocyte# 1.24 X10^3/uL; Monocyte% 10.2 % (0-10); NRBC Flagged by Analyzer 0 % (0-5); Neutrophil # 7.99 X10^3/uL (2.7-7.7); Neutrophil % 66.1 % (47-70); Platelet Count 241 K/mm3 (150-450); Red Blood Count 4.18 M/mm3 (4.2-5.4); White Blood Count 12.1 K/mm3 (4.4-11.0)
[2022-08-24 17:17] LABS: CRP < 2.90 mg/L (0.0-3.0)
[2022-08-24 17:33] LABS: Erythrocyte Sedimentation Rate 11 mm/hr (0-30)
== END | disposition home or self-care (01) ==
PROVIDERS: PCP Family Medicine; Visit Provider Specialist
DX: M25.512 Pain in left shoulder (principal); Z96.612 Presence of left artificial shoulder joint
CPT/HCPCS: 36415; 85025; 85652; 86140

== ENCOUNTER → 2022-09-21 | Outpatient (CLI) | payer OTHER, MEDICAID, SELFPAY ==
--- NOTE | 2022-09-21 09:06 | STRESSREP ---
Stress Test Report Date: 09-21-2022 Procedure: Pharmacologic stress nuclear imaging study Indications: Chest pain, shortness of breath, palpitations, valvular heart disease, hyperlipidemia, hypertension Consent: Per the patient Procedure: The patient underwent pharmacologic (Regadenoson 0.4mg ) evaluation with a peak heart rate of 96 beats per minute (61%predicted maximal heart rate) and a resting blood pressure of 142/80 mmHg and a peak blood pressure of 162/88 mmHg. The baseline ECG demonstrated normal sinus rhythm. The peak pharmacologic ECG demonstrated no obvious ECG changes. There were no cardiac dysrhythmias pretest, during pharmacologic infusion, or recovery. There was no complaint of chest discomfort during pharmacologic infusion or recovery. The examination was discontinued secondary to completion of protocol. Impression: 1. Pharmacologic (Regadenoson) evaluation 2. Peak pharmacologic ECG with no obvious ECG changes. 3. There were no cardiac dysrhythmias pretest, during pharmacologic infusion, or recovery. 4. Nuclear images pending Myocardial perfusion imaging study: Technique: The patient was injected with 11.9 millicuries of technetium 99m Cardiolite and subsequently rest SPECT Cardiolite nuclear imaging was obtained in the horizontal long, vertical long, and short axis views. The patient underwent pharmacologic (Regadenoson) evaluation with a peak heart rate of 96 beats per minute (61% percent predicted maximal heart rate) and a resting blood pressure of 142/80 mmHg and a peak blood pressure of 162/88 mmHg. The patient was injected with 34.8 millicuries of technetium 99m Cardiolite and subsequently stress SPECT Cardiolite nuclear imaging was obtained in the horizontal long, vertical long, and short axis views. A gated Cardiolite study at peak stress was obtained. Interpretation: Rest and stress SPECT Cardiolite nuclear imaging status post realignment, normalization, and attenuation correction demonstrate relative uniform tracer uptake and myocardial perfusion appearing within normal limits. There is end systolic thickening and brightening. The gated Cardiolite study demonstrates myocardial thickening and inward wall motion. The reported LVEF is 60%. Impression: 1. Rest and stress SPECT Cardiolite nuclear imaging demonstrate relative uniform tracer uptake and myocardial perfusion appearing within normal limits. 2. The gated Cardiolite study reports an LVEF of 60%. This note was generated with Adhere[employer]ation software. It may contain incorrect words, spelling, and punctuation that were not noted in checking the note before signing.
== END | disposition home or self-care (01) ==
LOC: CVS 07:12
PROVIDERS: PCP Family Medicine; Referring Provider Nurse Practitioner Family; Visit Provider Nurse Practitioner Family
DX: R06.09 Other forms of dyspnea (principal); R07.9 Chest pain, unspecified; I35.1 Nonrheumatic aortic (valve) insufficiency
CPT/HCPCS: 78452; 93017; A9500; A4216; J2785

== ENCOUNTER → 2023-01-09 | Outpatient (CLI) | payer OTHER, MEDICAID, SELFPAY ==
[2023-01-09 15:36] LABS: Absolute Lymphocyte Count 2.06 X10^3/uL (0.83-4.51); Absolute Neutrophil Count 3.1 X10^3/uL (2.0-7.7); Basophil# 0.02 X10^3/uL; Basophil% 0.3 % (0-1); Eosinophil# 0.12 X10^3/uL; Hematocrit 39.3 % (37-47); Hemoglobin 12.9 g/dL (12.0-15.0); Lymphocyte # 2.06 X10^3/ul (0.83-4.51); Lymphocyte % 34.7 % (19-41); Mean Corp Hgb Conc 32.8 g/dL (32-36); Mean Corpuscular Hgb 30.3 pg (27.0-32.0); Mean Corpuscular Volume 92.3 fL (81-99); Monocyte# 0.63 X10^3/uL; Monocyte% 10.6 % (0-10); NRBC Flagged by Analyzer 0 % (0-5); Neutrophil # 3.06 X10^3/uL (2.7-7.7); Neutrophil % 51.7 % (47-70); Platelet Count 236 K/mm3 (150-450); RBC Distribution Width CV 12.9 % (11.6-14.6); RBC Distribution Width SD 42.3 fl (35.1-43.9); Red Blood Count 4.26 M/mm3 (4.2-5.4); White Blood Count 5.9 K/mm3 (4.4-11.0)
[2023-01-09 15:56] LABS: BNP,B-Type NATRIURETIC PEPTIDE 36.3 pg/mL (0-100)
[2023-01-09 16:28] LABS: Anion Gap 9 (5-15); BUN 15 mg/dL (7-18); BUN/Creat Ratio 13.5 RATIO (10-20); Chloride 105 mmol/L (98-107); Creatinine, Serum 1.11 mg/dL (0.55-1.02); EST Glomerular Filtration Rate 53 mL/min (>60); Est Glom Filt Rate - Afr Amer 64 mL/min (>60); Free T3 2.8 pg/mL (2.18-3.98); Glucose 128 mg/dL (74-106); Potassium 3.7 mmol/L (3.5-5.1); Sodium Level 140 mmol/L (136-145); T4 Free Direct 0.89 ng/dL (0.76-1.46); Thyroid Stim Hormone (TSH) 1.95 uIU/mL (0.358-3.74)
== END | disposition home or self-care (01) ==
LOC: LAB 14:58
PROVIDERS: PCP Family Medicine; Referring Provider Nurse Practitioner Family; Visit Provider Nurse Practitioner Family
DX: R53.83 Other fatigue (principal); R06.09 Other forms of dyspnea; I35.1 Nonrheumatic aortic (valve) insufficiency
CPT/HCPCS: 36415; 80048; 83880; 84439; 84443; 84481; 85025

== ENCOUNTER → 2023-05-17 | Outpatient (CLI) | payer OTHER, MEDICARE, SELFPAY ==
--- NOTE | 2023-05-17 07:54 | EKG12_ITS ---
Test Reason : PREOP Blood Pressure : / mmHG Vent. Rate : 054 BPM Atrial Rate : 054 BPM P-R Int : 174 ms QRS Dur : 090 ms QT Int : 460 ms P-R-T Axes : 038 011 042 degrees QTc Int : 436 ms Sinus bradycardia Otherwise normal ECG When compared with ECG of 14-AUG-2022 17:46, No significant change was found Confirmed by GUSTAVO BENDER, CHANCE ([id number]), society editor DIANA YEE ([id number]) on 05/23/2023 10:13:25 AM Referred By: Rafael Blunt Confirmed By:CHANCE CHEN MD
[2023-05-17 08:43] LABS: Absolute Lymphocyte Count 1.89 X10^3/uL (0.83-4.51); Absolute Neutrophil Count 3.8 X10^3/uL (2.0-7.7); Basophil# 0.03 X10^3/uL; Basophil% 0.5 % (0-1); Eosinophil# 0.14 X10^3/uL; Eosinophils% 2.2 % (0-5); Hematocrit 40.4 % (37-47); Hemoglobin 13.7 g/dL (12.0-15.0); Lymphocyte # 1.89 X10^3/ul (0.83-4.51); Lymphocyte % 29.3 % (19-41); Mean Corp Hgb Conc 33.9 g/dL (32-36); Mean Corpuscular Hgb 31.6 pg (27.0-32.0); Mean Corpuscular Volume 93.3 fL (81-99); Mean Platelet Vol. 11.1 fl (6.2-12.0); Monocyte% 9.3 % (0-10); NRBC Flagged by Analyzer 0 % (0-5); Neutrophil # 3.79 X10^3/uL (2.7-7.7); Neutrophil % 58.5 % (47-70); Platelet Count 238 K/mm3 (150-450); RBC Distribution Width CV 13.1 % (11.6-14.6); RBC Distribution Width SD 44.1 fl (35.1-43.9); Red Blood Count 4.33 M/mm3 (4.2-5.4); White Blood Count 6.5 K/mm3 (4.4-11.0)
[2023-05-17 09:04] LABS: Albumin, Serum 4.1 g/dL (3.2-5.0); Anion Gap 7 (5-15); BUN 26 mg/dL (7-18); Calcium,Total 9.6 mg/dL (8.5-10.1); Chloride 107 mmol/L (98-107); Creatinine, Serum 1.04 mg/dL (0.55-1.02); EST Glomerular Filtration Rate 57 mL/min (>60); Est Glom Filt Rate - Afr Amer 68 mL/min (>60); Glucose 106 mg/dL (74-106); Sodium Level 138 mmol/L (136-145)
[2023-05-17 09:05] LABS: Magnesium 2.3 mg/dL (1.6-2.6)
[2023-05-17 09:10] LABS: Hemoglobin A1c 5.5 % (3.8-5.6)
== END | disposition home or self-care (01) ==
LOC: PAT 06-22 08:15
PROVIDERS: Anesthesiology; PCP Family Medicine; Referring Provider Orthopaedic Surgery; Visit Provider Orthopaedic Surgery
DX: Z01.818 Encounter for other preprocedural examination (principal)
CPT/HCPCS: 36415; 80048; 82040; 83036; 83735; 85025; 87081; 93005

== ENCOUNTER → 2023-06-14 | Outpatient (CLI) | payer OTHER, MEDICARE, SELFPAY ==
--- NOTE | 2023-06-14 09:38 | BD_ITS ---
STUDY: DUAL ENERGY X-RAY ABSORPTIOMETRY / DXA REASON FOR EXAM: Female, 63 years old. 627.8Menopausal postmenopausal BONE DENSITY REASON FOR EXAM TECHNIQUE: Bone Mineral Density (BMD) measurements of lumbar spine and right hip were obtained. COMPARISON: None. FINDINGS: Lumbar Spine (L1-L4): g/cm2 (1.127) / T-score (0.7) / Z-score (2.5) Findings are suggestive of normal bone density with a low fracture risk. Right Femur Total: g/cm2 (0.911) / T-score (-0.3) / Z-score (1.0) Right Femoral Neck: g/cm2 (0.887) / T-score (0.3) / Z-score (1.9) BD/Dexa Bone Density Study IMPRESSION: The patient is considered normal as outlined below according to World [place] Organization (WHO) criteria with a low fracture risk. Reference Information: The T-score is the number of standard deviations above or below the standard which is normal for young adults at their peak bone mineral density. The World Health Organization (WHO) interprets the T-scores as follows: Above -1 Normal bone density Between -1 and -2.5 Osteopenia Equal to / or below -2.5 Osteoporosis As a practical clinical guideline, osteopenia may be graded as follows: Mild -1 through -1.5 Moderate -1.6 through -2.0 Severe -2.1 through -2.4 The Z-score is the number of standard deviations above or below age-matched controls. A Z-score of less than -1.5 would be considered abnormal. References: 1. NIH Osteoporosis and Related Bone Diseases www osteo.org 2. International Society for Clinical Densitometry www iscd.org 3. National Osteoporosis Foundation www nof.org Electronically Signed: Alexandre Suggs MD at 12:40 EDT ,
== END | disposition home or self-care (01) ==
PROVIDERS: PCP Family Medicine
DX: Z78.0 Asymptomatic menopausal state (principal)
CPT/HCPCS: 77080

== ENCOUNTER 2023-06-18 14:14 | Observation (INO) | payer OTHER, MEDICARE, SELFPAY ==
[2023-06-18] VITALS (12 sets, daily range): BP systolic 74–139; BP diastolic 53–87; PULSE 62–87; RESP 16–18; TEMP 36.1–36.9; O2SAT 95–100; BMI 30.2
--- NOTE | 2023-06-18 | HIP_PTH ---
PATIENT: BEAN BURCH LOC: [facility] U#:[id number] AGE/SX: 63/F ROOM: AZ313 RE06/18/[address]: Dr. Rafael Blunt DO : 1960 BED: 1 DIS: 06/19/2023 SPEC #: [id number] RECD: 06/18/23 12:50 STATUS: RAQUEL JEREMY #: [id number] NATE: 06/18/23 00:[address]: Rafael Blunt DEPT: SURGICAL PATHOLOGY RECD BY: Ginger Lin ENTERED: 06/18/23 13:22 SP TYPE: TOTAL HIP OTHR DR: Dr. Ganga Nunez MD Tissues: Hip, NOS Procedures: Decalcification bone/plaque Surgery Specimen Level IV HEADER OPERATION: ERAS, right total hip arthroplasty, posterior approach PRE-OP DIAGNOSIS: Unilateral primary osteoarthritis right hip; right hip pain TISSUE SUBMITTED: Right hip femoral head and tissue MICROSCOPIC DIAGNOSIS Bone and tissue of right hip, total hip resection: Severe degenerative joint disease. AM:haider 06/21/2023 MICROSCOPIC DESCRIPTION Slides are reviewed. GROSS DESCRIPTION Received is one container labeled with the patient's name and designated right hip femoral head and tissue. The specimen consists of a pfeiffer femoral head with portion of femoral neck. The femoral head measures 5.0 x 5.0 x 4.0 cm and the femoral neck measures up to 1.0 cm in length. The articular surface displays prominent osteophyte formation, eburnation and bone erosion. Also present in the specimen container are multiple irregular fragments of bone reamings and pink-yellow soft tissue, almost entirely consisting of bone reamings, measuring in aggregate 7.0 x 8.0 x 2.5 cm. A small piece of soft tissue is noted attached to the femoral head measuring 2.0 x 1.0 x 0.3 cm. Janitor sections are submitted in two cassettes after decalcification as follows: 1 - soft tissue and bone reamings, 2 - femoral head. / SJ:haider 06/18/2023 TC:5 CPT: 27699, 89174
[2023-06-18] MEDS: Magnesium 1 GM over 15 mins IV (08:34)
[2023-06-18] MEDS: Lactated Ringers 1,000 ML 15 ML IV (08:34)
[2023-06-18] MEDS: Gabapentin 600 MG Tablet PO (08:37)
[2023-06-18] MEDS: Acetaminophen 500 MG Tablet 1000 MG PO ×3 (08:38→21:06)
[2023-06-18 08:54] LABS: Bedside Glucose 175 mg/dL (74-106)
[2023-06-18] MEDS: Cefazolin 2 GM in 0.9% Normal Saline (100mL Bag) 100 ML IV (10:09)
[2023-06-18] MEDS: Lactated Ringers 1,000 ML 999 ML IV (10:10)
[2023-06-18] MEDS: TXA 1000mg in NS100 100ml (IVPB at Incision) 660 MG IV (10:19)
[2023-06-18] MEDS: TXA 1000mg in NS100 100ml (IVPB at Closure) 660 MG IV (11:23)
[2023-06-18] MEDS: JPS (Morphine 10mg/ml) OPERA.SITE (11:26)
--- NOTE | 2023-06-18 11:43 | OP.PCM_ITS ---
Report of Operation Date of Procedure: 06/18/23 Pre-Operative Diagnosis: OA right hip Post-Operative Diagnosis: same Surgery/Procedure Performed:: Right THR Description of Surgical Findings:: Report of Operation Date of Procedure: 06/18/2023 Pre-Operative Diagnosis: OA [ right ] hip Post-Operative Diagnosis: same Surgery/Procedure Performed: [ Right ] THR facepiece line supervisor: Ramone George PA-C Type of Anesthesia: spinal Anesthesiologist: Konstantin Lynn M.D. Specimen's removed: bone Estimated Blood Loss (mL): 150 cc Implants: Anu Accolade 2 size 4 stem, -4 neck length, 52 mm cluster hole Trilogy acetabular cup with MDM liner Surgical Indications: Patient has severe end-stage osteoarthritic changes in the [ right ] hip. They have failed conservative measures including activity modification, anti- inflammatories, use of assistive devices. This to the point where the pain affects their ability to enjoy life and complete activities of daily living without discomfort. Patient has elected to undergo the above procedure Procedure Description: The patient was greeted in the preoperative area the [right ] hip was marked with surgical marker preoperative antibiotics administered. The patient was then taken to or suite in stable condition. Preoperative tranexamic acid was also utilized. Once the patient was placed in the supine position on the operating room table and once adequate anesthesia was obtained they were then placed in the lateral decubitus position with the surgical hip facing the field. All bony prominences were well-padded. A commercial hip position was utilized. The appropriate extremity was then prepped and draped in usual sterile fashion. Ioban was placed on the skin. Surgical timeout was performed and surgery was commenced. A standard posterior approach to the hip was then performed. Incision was planned and carried out with a #10 blade scalpel. Dissection was then carried length of the incision to the IT band which was split proximally and distally. A Charnley retractor was then placed for soft tissue retraction exposing the piriformis. A standard posterior capsulotomy was performed. Severe eburnation of bone was noted and periarticular osteophytes were identified consistent with severe end-stage osteoarthritis. A femoral neck osteotomy guide was used to germaine the proximal femur. A femoral osteotomy was then created approximately 1 fingerbreadth above the lesser trochanter. This was measured and placed on the back table. Once this was complete acetabular retractors were placed anteriorly and posteriorly. Labrum was then removed from the acetabulum exposing the entire cup of the acetabulum. Sequential reaming was then commenced and the acetabulum was medialized and sequentially widened in order to accommodate appropriate size cup. The acetabular cup was then impacted into position to the appropriate depth referencing approximately [45 degrees ] anteversion and [ 45 degrees ]of inclination. Excellent purchase was obtained. An appropriate size MDM liner was then placed. Attention was then turned to the femoral preparation. The hip was placed in the 90/90 position and a lateralizing box osteotome was utilized. Femoral starting awl was used followed by sequential broaching to the appropriate size. Excellent purchase was obtained with the stem no stem subsidence and excellent rotational stability was confirmed. A calcar reamer was then used in the trial head neck was placed on the broach. The hip was then located and taken through full range of motion flexion internal and external rotation as well as extension. Excellent stability was noted no impingement was identified of the components and leg lengths appear to be appropriate. The hip was at this point dislocated and the trial femoral components were removed. The final femoral stem was then implanted and impacted to the appropriate depth. Again excellent purchase was obtained no stem subsidence or rotational instability was noted. The hip was once again trialed and confirmation of leg length and stability was performed. Soft tissue tension also appeared to be appropriate. At this point the hip was redislocated and the trunnion was cleaned and dried meticulously in the appropriate size MDM femoral head was placed on the clean dry trunnion using a 12/14 Daniels taper. The hip was once again relocated and again taken through full range of motion. I did inject a cocktail of postoperative pain medication in the deep and superficial tissues. Copious irrigation was performed. Anatomic closure of the piriformis tendon was performed through drill holes in the greater trochanter. A #1 Vicryl 0 Vicryl was utilized in subcutaneous tissue and surgical blanca were placed in the skin. A well-padded nonadherent dressing was applied. Patient was taken to PACU in stable condition. No complications were identified. Will follow standard postop protocol for total hip arthroplasty. My dermatology physician assistant played a vital role in the procedure beginning with positioning, holding retraction of soft tissues, positioning the leg to optimize visualization during the procedure and assisting with wound closure. Post-op Plan: DVT ppx; ASA 81 mg BID, thigh high compression stockings Follow up: in office in 2 weeks for wound check PT: to start POD #0 at hospital, outpatient PT should be arranged. Preoperative antibiotic: Ancef 2 grams IV Rafael Blunt DO Surgeon: Rafael Blunt facepiece line supervisor: Ramone George Type of Anesthesia: Spinal Anesthesiologist: Konstantin Lynn Specimen's removed: femoral head Estimated Blood Loss (mL): 150 cc Fluids Replaced: 1000 cc crystalloid Admit VTE Documentation VTE Mechan Device Prophylaxis: SCD's VTE Pharm Prophylaxis ordered?: Yes
--- NOTE | 2023-06-18 12:28 | RAD_ITS ---
INDICATION: Post Op -- AP both hips on single destiny/lateral of op hip PACU EXAMINATION/TECHNIQUE: X-RAY - XR Hip Unilateral with Pelvis when performed; 2-3 Views COMPARISON: CT dated March 17, 2020 FINDINGS: PELVIC BONES: No displaced fracture, destructive or sclerotic lesions. Note that overlapping bowel shadows may however obscure fine detail. Sacroiliac joints are unremarkable. No widening of the pubic symphysis. HIPS: There is a new right-sided total hip arthroplasty in place. The alignment is anatomic. There is a stable left-sided total hip arthroplasty that is grossly anatomic in alignment as well. SOFT TISSUES: There are postsurgical changes within the soft tissues of the right lateral thigh. There are phleboliths. RAD/Hip Min 2 Views (Portable) IMPRESSION: Bilateral total hip arthroplasties, grossly anatomic in alignment. Electronically Signed: Mckenzie Pereyra MD at 13:07 EDT ,
[2023-06-18] MEDS: Lactated Ringers 1,000 ML 125 ML IV (12:47)
[2023-06-18] MEDS: cycloBENZAPRine HCl 10 MG Tablet PO ×2 (14:17→21:05)
[2023-06-18] MEDS: Aspirin 81 MG TAB.CHEW PO ×2 (14:17→21:06)
[2023-06-18] MEDS: Senna/Docusate Sodium 1 Tablet 2 TABLET PO ×2 (14:17→21:06)
[2023-06-18] MEDS: HYDROcodone Bitartrate/Apap 5/325 Tablet PO (17:16)
[2023-06-18] MEDS: Cefazolin 1 GM/50 ML BAG IV (17:16)
[2023-06-18] MEDS: Metoprolol(XL)Succ 100 MG Tablet PO (21:05)
[2023-06-18] MEDS: Fluoxetine HCl 40 MG CAPSULE PO (21:06)
[2023-06-18] MEDS: Hydroxychloroquine 200 MG Tablet PO (21:06)
[2023-06-18] MEDS: Atorvastatin Calcium 40 MG Tablet PO (21:06)
[2023-06-18] MEDS: traZODone 100 MG Tablet PO (21:06)
[2023-06-19] MEDS: 0.9% NaCl Peripheral Flush Adult/Peds IV (01:33)
[2023-06-19] MEDS: Cefazolin 1 GM/50 ML BAG IV (01:33)
[2023-06-19 01:34] VITALS: BP 104/58; PULSE 86; RESP 16; TEMP 37.2; O2SAT 95
[2023-06-19 05:34] VITALS: BP 127/61; PULSE 80; RESP 16; TEMP 37; O2SAT 95
[2023-06-19] MEDS: cycloBENZAPRine HCl 10 MG Tablet PO ×2 (05:42→13:44)
[2023-06-19] MEDS: HYDROcodone Bitartrate/Apap 5/325 Tablet PO ×2 (06:51→13:43)
[2023-06-19 07:00] LABS: Hematocrit 27.5 % (37-47); Hemoglobin 9.1 g/dL (12.0-15.0); Mean Corp Hgb Conc 33.1 g/dL (32-36); Mean Corpuscular Hgb 31.2 pg (27.0-32.0); Mean Corpuscular Volume 94.2 fL (81-99); Platelet Count 189 K/mm3 (150-450); RBC Distribution Width CV 13.2 % (11.6-14.6); RBC Distribution Width SD 45.1 fl (35.1-43.9); Red Blood Count 2.92 M/mm3 (4.2-5.4); White Blood Count 8.1 K/mm3 (4.4-11.0)
[2023-06-19 07:31] LABS: Anion Gap 6 (5-15); BUN 17 mg/dL (7-18); Calcium,Total 8.4 mg/dL (8.5-10.1); Chloride 105 mmol/L (98-107); EST Glomerular Filtration Rate 67 mL/min (>60); Est Glom Filt Rate - Afr Amer 81 mL/min (>60); Estimated Creatinine Clearance 62.86 ml/min; Glucose 155 mg/dL (74-106); Sodium Level 137 mmol/L (136-145)
[2023-06-19 07:45] VITALS: O2SAT 94
[2023-06-19 07:50] VITALS: BP 98/59; PULSE 77; RESP 18; TEMP 36.7; O2SAT 94
[2023-06-19] MEDS: Magnesium Chloride 64 MG Delay Rel.Tablet 128 MG PO (07:54)
[2023-06-19] MEDS: Fluticasone 0.05% 1 SPRAY NASAL.SRY 2 SPRAY NASAL (07:54)
[2023-06-19] MEDS: Senna/Docusate Sodium 1 Tablet 2 TABLET PO (07:54)
[2023-06-19] MEDS: Vitamin B Comp W-C Capsule 1 CAP PO (07:54)
[2023-06-19] MEDS: Cholecalciferol (Vit D3) 125 MCG CAPSULE (5,000 UNITS) 250 MCG PO (07:55)
[2023-06-19] MEDS: Folic Acid 1 MG Tablet PO (07:55)
[2023-06-19] MEDS: Multivitamins,Therapeutic Tablet 1 TABLET PO (07:55)
[2023-06-19] MEDS: Fluoxetine HCl 40 MG CAPSULE PO (07:55)
[2023-06-19] MEDS: Loratadine 10 MG Tablet PO (07:55)
[2023-06-19] MEDS: Aspirin 81 MG TAB.CHEW PO (07:55)
[2023-06-19] MEDS: Sertraline 100 MG Tablet PO (07:56)
[2023-06-19] MEDS: Hydroxychloroquine 200 MG Tablet PO (07:56)
[2023-06-19] MEDS: Calcium Carbonate 500 MG Tablet PO (07:56)
--- NOTE | 2023-06-19 10:48 | CASEMGMT ---
ANNELIESE MOBLEY Assessment: Face to Face with pt for initial transition planning/care coordination assessment. RN ITZ introduced self and role at [facility], pt voices understanding and consents to assessment. Pt is A&O x4 and answers all questions appropriately at this time. Pt sitting up in chair with at bedside. Care providers, pharmacy, and demographics verified/updated. Admitting Dx:R total hip arthroplasty, posterior approach PCP:Mayra Specialists:Diego Blunt; William, tabitha; Annette Quarles Preferred Pharmacy: [facility] Retail Insurance: [employer] anderson Prescription Benefit: yes LNOK: Victoriano Macario, Living Arrangements: Pt lives with in a single story home with 4 steps to enter with a rail. Pt reports she needs some assistance with bathing and dressing provided by her . Pt and share in meal prep and getting groceries, does laundry. Pt denies concerns at home. Transportation: Pt drives self and denies concerns with transportation. Pt will transport pt until she can drive again. DME:CPAP with oxygen through [employer], BSC, pox, tub bench, FWW, 4 prong cane HHC/SNF: [facility]; denies SNF stays Pt states no concerns with going home at time of dc. Pt has outpt therapy set up for tomorrow at [facility]. Pt states no further concerns/needs. CM to follow. Advised pt to ask CM if any further question/concerns/needs arise, voices understanding. Pt Goal: Home with outpt therapy already set up Plan: Home with outpt therapy already set up
[2023-06-19] MEDS: LORazepam 0.5 MG Tablet 1 MG PO (12:17)
[2023-06-19 13:42] VITALS: BP 116/62; PULSE 85; RESP 18; TEMP 37.2; O2SAT 98
--- NOTE | 2023-06-19 15:24 | CASEMGMT ---
Met with patient to complete YOUNGER form. YUONGER form explained to patient who voiced understanding and signed form. Original form placed in pt?s chart and copy provided to?patient. Isatu Oconnor, Discharge Planning Asst.
== END 2023-06-19 15:36 | disposition home or self-care (01) ==
LOC: SDC 14:21 → MS3 14:21
PROVIDERS: Admitting Provider Orthopaedic Surgery; PCP Family Medicine; Referring Provider Orthopaedic Surgery; Visit Provider Orthopaedic Surgery
PROC: 0SR90JZ Replacement of Right Hip Joint with Synthetic Substitute, Open Approach (ICD-10-PCS; CPT 27130; principal; 2023-06-18 10:00)
DX: M16.11 Unilateral primary osteoarthritis, right hip (principal); Z79.899 Other long term (current) drug therapy; M79.7 Fibromyalgia; E78.00 Pure hypercholesterolemia, unspecified; R73.03 Prediabetes; J45.909 Unspecified asthma, uncomplicated; Z87.891 Personal history of nicotine dependence; F41.9 Anxiety disorder, unspecified; K21.9 Gastro-esophageal reflux disease without esophagitis
CPT/HCPCS: 27130; 01214; 36415; 73502; 80048; 82962; 85027; 88305; 88311; 94668; 96361; 96365; 96366; 97110; 97116; 97162; 97166; 97530; 97535; 99221; 99252; C1776; J7120; A4216; G0378; G0463; J3475

== ENCOUNTER → 2023-07-09 | Outpatient (CLI) | payer OTHER, MEDICARE, SELFPAY ==
--- NOTE | 2023-07-09 10:06 | VDLE_ITS ---
Reason For Study: Right leg pain RIGHT LEFT GSV is normal. CFV is compressible, spontaneous, phasic, CFV is compressible, spontaneous, phasic, competent, and demonstrates normal competent and demonstrates normal augmentation. augmentation. FV is compressible, spontaneous, phasic, competent and demonstrates normal augmentation. POP V is compressible, spontaneous, phasic, competent and demonstrates normal augmentation. T/P Trunk is compressible. PTV is compressible. RT PerV is compressible. Procedure This is a venous duplex using B-mode, color flow and spectral Doppler. Exam performed in department. A preliminary report was called and/or faxed to Dr. Blunt. VL/Venous Duplex US, Unilateral Interpretation Summary There is no evidence of right lower extremity deep vein thrombosis. Right great saphenous vein appears patent and compressible segmentally. Normal flow patterns left common f emoral vein Ordering Physician: Rafael Blunt Referring Physician: Ganga Nunez Performed By: Homa Aguirre RVT
== END | disposition home or self-care (01) ==
LOC: CVS 10:06
PROVIDERS: PCP Family Medicine; Referring Provider Orthopaedic Surgery; Visit Provider Orthopaedic Surgery
DX: Z47.1 Aftercare following joint replacement surgery (principal); Z96.641 Presence of right artificial hip joint
CPT/HCPCS: 93971

== ENCOUNTER → 2023-08-15 | Outpatient (CLI) | payer OTHER, MEDICARE, SELFPAY ==
[2023-08-15 11:25] LABS: Absolute Lymphocyte Count 2.02 X10^3/uL (0.83-4.51); Absolute Neutrophil Count 4.3 X10^3/uL (2.0-7.7); Basophil# 0.02 X10^3/uL; Basophil% 0.3 % (0-1); Eosinophil# 0.15 X10^3/uL; Eosinophils% 2.1 % (0-5); Hematocrit 36.9 % (37-47); Hemoglobin 11.4 g/dL (12.0-15.0); Lymphocyte # 2.02 X10^3/ul (0.83-4.51); Lymphocyte % 27.9 % (19-41); Mean Corp Hgb Conc 30.9 g/dL (32-36); Mean Corpuscular Hgb 28.4 pg (27.0-32.0); Mean Corpuscular Volume 91.8 fL (81-99); Mean Platelet Vol. 10.5 fl (6.2-12.0); Monocyte# 0.74 X10^3/uL; Monocyte% 10.2 % (0-10); NRBC Flagged by Analyzer 0 % (0-5); Neutrophil # 4.27 X10^3/uL (2.7-7.7); Neutrophil % 59.1 % (47-70); Platelet Count 282 K/mm3 (150-450); RBC Distribution Width CV 12.8 % (11.6-14.6); RBC Distribution Width SD 42.6 fl (35.1-43.9); Red Blood Count 4.02 M/mm3 (4.2-5.4); White Blood Count 7.2 K/mm3 (4.4-11.0)
[2023-08-15 11:48] LABS: BNP,B-Type NATRIURETIC PEPTIDE 23.8 pg/mL (0-100)
[2023-08-15 11:56] LABS: Anion Gap 5 (5-15); BUN 12 mg/dL (7-18); Calcium,Total 9.2 mg/dL (8.5-10.1); Chloride 108 mmol/L (98-107); EST Glomerular Filtration Rate 59 mL/min (>60); Est Glom Filt Rate - Afr Amer 72 mL/min (>60); Glucose 106 mg/dL (74-106); Potassium 4.3 mmol/L (3.5-5.1); Sodium Level 139 mmol/L (136-145)
== END | disposition home or self-care (01) ==
PROVIDERS: PCP Family Medicine; Referring Provider Nurse Practitioner Family; Visit Provider Nurse Practitioner Family
DX: R06.09 Other forms of dyspnea (principal); E78.5 Hyperlipidemia, unspecified; I35.1 Nonrheumatic aortic (valve) insufficiency
CPT/HCPCS: 36415; 80048; 83880; 85025

== ENCOUNTER → 2023-08-30 | Outpatient (CLI) | payer OTHER, MEDICARE, SELFPAY ==
--- OUTSIDE RECORDS SUMMARY | 2023-08-30 18:01 | XMS RPT_ITS | CCD ---
Author Name Unknown Address [address] [facility] [address] [place] [address] Organization [facility] Care Team Providers Care 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 Name Role Phone Fe Blair Y Unavailable Johnnie Fe Y Unavailable BlairYevgeniyia Y Unavailable Leah BENDER, Kiki Unavailable [phone] Ganga Sheppard MD Primary Care Provider Leah BENDER, Kiki Unavailable Ganga Sheppard MD Primary Care Provider Ganga Sheppard MD Primary Care Provider Leah BENDER, Kiki Unavailable Ganga Sheppard MD Primary Care Provider Leah BENDER, Kiki Unavailable JEFF STORY Referring Unavailable HORTENCIA, TORRIEPRIT Attending Unavailable GANGA SHEPPARD Primary Care Unavailable GANGA SHEPPARD Primary Care Unavailable JEFF STORY Attending Unavailable GANGA SHEPAPRD Primary Care Unavailable BETO FRANZ Attending Unavailable GANGA SHEPPARD Primary Care Unavailable BETO FRANZ Attending Unavailable HORTENCIA, INDERPRIT Attending Unavailable THOMAS, INDERPRIT Referring Unavailable GANGA SHEPPARD Primary Care Unavailable GANGA SHEPPARD Primary Care Unavailable NITIshan, LESLIE Admitting Unavailable NITZ, LESLIE Attending Unavailable THOMAS, INDERPRIT Attending Unavailable THOMAS, INDERPRIT Referring Unavailable GANGA SHEPPARD Primary Care Unavailable SILVER BENDER, GANGA Stallings Primary Care Unavailable LEONIDES BENDER, DR PHILLIP Stallings Attending Unavailab alejandra COYLE MD, DR PHILLIP Stallings Attending Unavailab alejandra SHEPPARD MD, GANGA A Primary Care Unavailable LEONIDES BENDER, DR PHILLIP Stallings Attending Unavailab Jeannette BENDER, GANGA A Primary Care Unavailable KANTARAS, BETO T Referring Unavailable O'RODOLFO, BARRBA Attending Unavailable SILVER, GANGA A Primary Care Unavailable KANTARAS, BETO T Referring Unavailable O'RODOLFO, BARBRA Attending Unavailable SILVER, GANGA A Primary Care Unavailable KANTARAS, BETO T Referring Unavailable O'RODOLFO, BARBRA Attending Unavailable SILVER, GANGA A Primary Care Unavailable KANTARAS, BETO T Referring Unavailable O'RODOLFO, BARBRA Attending Unavailable SILVER, GANGA A Primary [facility] Referring Unavailable O'RODOLFO, BARBRA Attending Unavailable SILVER, GANGA A Primary Care Unavailable SILVER, GANGA A Primary Care Unavailable BABS GUERRA Referring Unavailable TESSY ACKERMAN Attending Unavailable SILVER, GANGA A Primary Care Unavailable BABS GUERRA Referring Unavailable SILVER, GANGA A Attending Unavailable SILVER, GANGA A Primary Care Unavailable SILVER, GANGA A Primary Care Unavailable SILVER, GANGA A Referring Unavailable SILVER, GANGA A Primary Care Unavailable MELY SPRINGER Referring Unavailable MELY SPRINGER Attending Unavailable KANTARAS, BETO T Referring Unavailable SILVER, GANGA A Primary Care Un[facility] Referring Unavailable O'RODOLFOBARBRA Attending Unavailable SILVER, GANGA A Primary Care Un[facility] Referring Unavailable SILVER, GANGA A Primary Care Unavailable SILVER, GANGA A Primary Care Unavailable SILVER, GANGA A Attending Unavailable SILVER, GANGA A Primary Care Unavailable SILVER, GANGA A Primary Care Unavailable BABS GUERRA Attending Unavailable SILVER, GANGA A Referring Unavailable SILVER, GANGA A Primary Care Unavailable SILVER, GANGA A Primary Care Unavailable SELAM ARGUETA Attending Unavailable SILVER, GANGA A Referring Unavailable EDWINA KHOURY Attending Unavailable SILVER, GANGA A Primary Care Unavailable SILVER, GANGA A Primary Care Unavailable EDWINA KHOURY Referring Unavailable SILVER, GANGA A Primary Care Unavailable HORTENCIA, CHRIS Referring Unavailable KANTARAS, BETO T Referring Unavailable O'RODOLFO, BARBRA Attending Unavailable GANGA SHEPPARD A Primary Care Un[facility] T Referring Unavailable Mara'BARBRA SHAW Attending Unavailable GANGA SHEPPARD A Primary Care Unavailable SILVERGANGA JHA A Primary Care Unavailable SILVERGANGA JHA A Referring Unavailable THOMAS, INDERPRIT Referring Unavailable SILVERYU JHAREY A Primary Care Unavailable SILVER, GANGA A Primary Care Unavailable SILVER, GANGA A Primary Care Unavailable THOMAS, INDERPRIT Referring Unavailable SILVER, GANGA A Primary Care Unavailable THOMAS, INDERPRIT Referring Unavailable KANTARAS, BETO T Referring Unavailable Mara'BARBRA SHAW Attending Unavailable SILVER, GANGA A Primary Care Unavailable GANGA SHEPPARD A Primary Care Unavailable GANGA SHEPPARD A Referring Unavailable GANGA SHEPPARD A Primary Care Unavailable SELAM ARGUETA Attending Unavailable KANTARAS, BETO T Referring Unavailable Mara'BARBRA SHAW Attending Unavailable GANGA SHEPPARD A Primary Care Unavailable [facility], BETO T Referring Unavailable Mara'BARBRA SHAW Attending Unavailable GANGA SHEPPARD A Primary Care Unavailable YU SHEPPARDREY A Referring Unavailable YU SHEPPARDREY A Primary Care Unavailable Allergies Allergy Classification Reported Allergen(s) Allergy Type Date of Onset Reaction(s) Facility (20 sources) nabumetone; Translations: [NABUMETONE] Drug Allergy 5 GI Upset [facility] Work Phone: [phone] (3 sources) oxyCODONE Drug Allergy 6 Swelling [facility] Work Phone: [phone] (3 sources) Sulfonamides (Antibiotic) drug allergy 6 Nausea [facility] Work Phone: [phone] (3 sources) traMADol Drug Allergy 7 Nausea [facility] Work Phone: [phone] (6 sources) traMADol; Translations: [TRAMADOL] Drug Allergy 6 Nausea [facility] Work Phone: [phone] (3 sources) RELAFAN drug allergy 7 Nausea [facility] Work Phone: [phone] (20 sources) HYDROmorphone; Translations: [HYDROMORPHONE (PF)] Drug Allergy 8 Other: See Comments, Mental Status Change [facility] Work Phone: (20 sources) oxyCODONE; Translations: [OXYCODONE HCL] Drug Allergy 9 Swelling [facility] Work Phone: (20 sources) Sulfonamides (Antibiotic); Translations: [SULFA (SULFONAMIDE ANTIBIOTICS)] Drug Allergy 3 Rash [facility] Work Phone: (20 sources) traMADol; Translations: [TRAMADOL HCL] Drug Allergy 7 GI Upset [facility] Work Phone: (20 sources) Sertraline; Translations: [SERTRALINE] Drug Allergy 2 Other: See Comments [facility] Work Phone: Medications Current Medications Medication Drug Class(es) Dates Sig (Normalized) Sig (Original) amoxicillin 875 mg oral tablet (4 sources) Penicillin-class Antibacterial Start: 10-09-2022 End: 10-19-2022 take 1 tablet by mouth twice daily amoxicillin (AMOXIL) 875 mg tablet Take 1 tablet by mouth twice daily for 10 days. 20 tablet 0 10/09/2022 10/19/2022 Active Completed/Discontinued Medications Medication Drug Class(es) Dates Sig (Normalized) Sig (Original) acetaminophen 32 mg/ml oral solution (20 sources) Start: 06-03-2018 End: 04-11-2022 take 650 mg by mouth every six hours as needed acetaminophen (TYLENOL) 650 mg/20.3 mL soln Take 20.3 mL by mouth every 6 hours as needed. 0 06/03/2018 04/11/2022 Discontinued (Other) Problems Active Problems Problem Classification Problem Date Documented Da te Episodic/Chronic Abdominal pain (1 source) Epigastric pain; Translations: [Epigastric pain] Episodic Acute bronchitis (1 source) Acute bronchitis; Translations: [Acute bronchitis, unspecified] Episodic Adjustment disorders (20 sources) Mixed anxiety and depressive disorder; Translations: [Adjustment disorder with mixed anxiety and depressed mood] Onset: 8 04-21-2021 Chronic Allergic reactions (1 source) Allergic condition; Translations: [Allergy, unspecified, initial encounter] Episodic Anxiety disorders (20 sources) Chronic anxiety; Translations: [Anxiety disorder, unspecified] Onset: 1 06-01-2021 Chronic Aortic; peripheral; and visceral artery aneurysms (20 sources) Thoracic aortic ectasia; Translations: [Thoracic aortic aneurysm without rupture] Onset: 6 04-14-2016 Chronic Chronic obstructive pulmonary disease and bronchiectasis (1 source) Bronchitis; Translations: [Bronchitis, not specified as acute or chronic] Episodic Diseases of white blood cells (2 sources) Leukocytosis; Translations: [Elevated white blood cell count, unspecified] Onset: 3 Chronic Disorders of lipid metabolism (20 sources) Hyperlipidemia; Translations: [Mixed hyperlipidemia] Onset: 6 04-05-2016 Chronic Disorders of teeth and jaw (1 source) Toothache; Translations: [Other specified disorders of teeth and supporting structures] Episodic Esophageal disorders (20 sources) Gastroesophageal reflux disease; Translations: [Gastro-esophageal reflux disease without esophagitis] Onset: 2 04-27-2022 Chronic Essential hypertension (20 sources) Essential hypertension; Translations: [Essential (primary) hypertension] Onset: 9 04-21-2021 Chronic Gastroduodenal ulcer (except hemorrhage) (1 source) Acute gastric ulcer; Translations: [Acute gastric ulcer without hemorrhage or perforation] Episodic Genitourinary symptoms and ill-defined conditions (20 sources) Urge incontinence of urine; Translations: [Urge incontinence] Onset: 7 04-21-2021 Chronic Headache; including migraine (20 sources) Migraine; Translations: [Migraine, unspecified, not intractable, without status migrainosus] Onset: 1 07-26-2021 Chronic Heart valve disorders (20 sources) Nonrheumatic aortic valve disorder, unspecified; Translations: [Nonrheumatic mitral valve disorder, unspecified] Onset: 6 04-06-2016 Chronic Immunizations and screening for infectious disease (2 sources) Suspected disease caused by 2019-nCoV; Translations: [Suspected COVID-19 virus infection] Episodic Miscellaneous mental health disorders (20 sources) Primary insomnia; Translations: [Primary insomnia] Onset: 1 06-13-2021 Chronic Nutritional deficiencies (20 sources) Vitamin D deficiency; Translations: [Vitamin D deficiency, unspecified] Onset: 2 04-21-2021 Chronic Osteoarthritis (20 sources) Arthritis of left knee; Translations: [Unilateral primary osteoarthritis, left knee] Onset: 3 04-21-2021 Chronic Other aftercare (1 source) Patient encounter status; Translations: [Other intermediate manager (current) drug therapy] Episodic Other and ill-defined cerebrovascular disease (1 source) Cerebral arterial aneurysm; Translations: [Cerebral aneurysm, nonruptured] Chronic Other bone disease and musculoskeletal deformities (1 source) Costal chondritis; Translations: [Chondrocostal junction syndrome [Tietze]] Episodic Other connective tissue disease (1 source) Bursitis of knee; Translations: [Other bursitis of knee, unspecified knee] Episodic Other gastrointestinal disorders (2 sources) Diarrhea of presumed infectious origin; Translations: [Diarrhea, unspecified] Episodic Other hereditary and degenerative nervous system conditions (20 sources) Essential tremor; Translations: [Essential tremor] Onset: 2 Chronic Other lower respiratory disease (4 sources) Dyspnea; Translations: [Shortness of breath] Onset: 6 04-04-2016 Episodic Other lower respiratory disease (5 sources) Multiple nodules of lung; Translations: [Other nonspecific abnormal finding of lung field] Episodic Other nervous system disorders (20 sources) Hydrocephalus; Translations: [Hydrocephalus, unspecified] Onset: 3 04-21-2021 Chronic Other nervous system disorders (20 sources) Chronic pain syndrome; Translations: [Chronic pain syndrome] Onset: 3 Chronic Other nervous system disorders (1 source) Other chronic pain; Translations: [Chronic right-sided low back pain with right-sided sciatica] Onset: 3 Chronic Other nervous system disorders (1 source) Hydrocephalus, unspecified; Translations: [Hydrocephalus, adult (HCC)] Onset: 1 Chronic Other nervous system disorders (1 source) Other hydrocephalus; Translations: [Other hydrocephalus (HCC)] Onset: 3 Chronic Other nervous system disorders (1 source) Ataxia; Translations: [Ataxia, unspecified] Episodic Other non-traumatic joint disorders (3 sources) Pain in right knee; Translations: [Pain in joint, lower leg] Episodic Other non-traumatic joint disorders (1 source) Hip pain; Translations: [Pain in unspecified hip] Episodic Other non-traumatic joint disorders (2 sources) Multiple joint pain; Translations: [Pain in unspecified joint] Episodic Other screening for suspected conditions (not mental disorders or infectious disease) (20 sources) Abnormal electrocardiogram [ECG] [EKG]; Translations: [Echocardiogram abnormal] Onset: 6 04-06-2016 Episodic Other skin disorders (1 source) Mass of skin of right lower limb; Translations: [Localized swelling, mass and lump, right lower limb] Episodic Other skin disorders (1 source) Disorder of right lower extremity; Translations: [Localized swelling, mass and lump, right lower limb] Episodic Other upper respiratory disease (1 source) Chronic rhinitis; Translations: [Chronic rhinitis] Chronic Other upper respiratory disease (1 source) Non-allergic rhinitis; Translations: [Chronic rhinitis] Chronic Other upper respiratory infections (3 sources) Acute sinusitis; Translations: [Acute sinusitis, unspecified] Episodic Residual codes; unclassified (20 sources) Obstructive sleep apnea syndrome; Translations: [Obstructive sleep apnea (adult) (pediatric)] Onset: 7 04-21-2021 Chronic Residual codes; unclassified (1 source) Daytime somnolence; Translations: [Other hypersomnia] Chronic Residual codes; unclassified (1 source) Intolerant of cold; Translations: [Other general symptoms and signs] Episodic Residual codes; unclassified (2 sources) Intolerant of heat; Translations: [Other general symptoms and signs] Episodic Residual codes; unclassified (11 sources) Active living will ; Translations: [Personal history of other specified conditions] Onset: 2 Episodic Residual codes; unclassified (1 source) Postmenopausal state; Translations: [Asymptomatic menopausal state] 05-28-2023 Episodic Residual codes; unclassified (1 source) Asymptomatic menopausal state; Translations: [Asymptomatic postmenopausal status] Onset: 3 Episodic Respiratory failure; insufficiency; arrest (adult) (20 sources) Chronic hypoxemic respiratory failure; Translations: [Chronic respiratory failure with hypoxia] Onset: 2 09-06-2021 Chronic Rheumatoid arthritis and related disease (20 sources) Rheumatoid arthritis of wrist; Translations: [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] Onset: 3 04-04-2023 Chronic Spondylosis; intervertebral disc disorders; other back problems (20 sources) Degeneration of lumbar intervertebral disc; Translations: [Other intervertebral disc degeneration, lumbar region] Onset: 8 04-21-2021 Chronic Syncope (2 sources) Syncope; Translations: [Syncope and collapse] Episodic Unclassified (1 source) Preoperative cardiovascular examination ; Translations: [Encounter for preprocedural cardiovascular examination] Onset: 6 04-06-2016 Unclassified (20 sources) Active living will ; Translations: [Living will on file] Onset: 2 04-06-2022 Unclassified (1 source) Post-COVID chronic dyspnea; Translations: [Post-COVID chronic dyspnea] Onset: 2 Viral infection (20 sources) Disease caused by 2019-nCoV; Translations: [COVID-19] Onset: 1 07-26-2021 Episodic Past or Other Problems Problem Classification Problem Date Documented Date Episodic/Chronic Administrative/social admission (20 sources) Advance directive discussed with patient; Translations: [Other specified counseling] Onset: 04-06-2022 Episodic Blindness and vision defects (2 sources) Diplopia; Translations: [Diplopia] Onset: 11-15-2022 Episodic Cardiac dysrhythmias (3 sources) Palpitations; Translations: [Palpitations] Onset: 04-24-2023 Episodic Conditions associated with dizziness or vertigo (4 sources) Dizziness; Translations: [Dizziness and giddiness] Onset: 05-17-2023 Episodic Diabetes mellitus without complication (20 sources) High hemoglobin A1c level; Translations: [Other abnormal glucose] Onset: 04-24-2023 04-24-2023 Episodic Diseases of mouth; excluding dental (2 sources) Xerostomia; Translations: [Dry mouth, unspecified] Onset: 04-24-2023 04-24-2023 Episodic Genitourinary symptoms and ill-defined conditions (3 sources) Increased frequency of urination; Translations: [Frequency of micturition] Onset: 04-24-2023 Episodic Malaise and fatigue (2 sources) Fatigue; Translations: [Other fatigue] Onset: 10-09-2022 Episodic Noninfectious gastroenteritis (20 sources) Chronic diarrhea; Translations: [Noninfective gastroenteritis and colitis, unspecified] Onset: 12-09-2018 04-21-2021 Episodic Nonspecific chest pain (3 sources) Chest pain; Translations: [Chest pain, unspecified] Onset: 04-04-2016 04-04-2016 Episodic Other aftercare (20 sources) Long-term current use of benzodiazepine; Translations: [Other assisted (current) drug therapy] Onset: 06-01-2021 06-01-2021 Episodic Other connective tissue disease (20 sources) Fibromyalgia; Translations: [Fibromyalgia] Onset: 02-26-2014 04-21-2021 Episodic Other connective tissue disease (20 sources) Plantar fasciitis; Translations: [Plantar fascial fibromatosis] Onset: 01-09-2018 06-13-2021 Episodic Other connective tissue disease (2 sources) Fibromyalgia; Translations: [Fibromyalgia] Onset: 11-15-2022 Episodic Other connective tissue disease (1 source) Other bursitis of knee, unspecified knee; Translations: [Pes anserine bursitis] Onset: 09-05-2022 Episodic Other diseases of kidney and ureters (20 sources) Cyst of kidney; Translations: [Cyst of kidney, acquired] Onset: 07-13-2016 04-21-2021 Episodic Other infections; including parasitic (20 sources) Personal history of other infectious and parasitic diseases; Translations: [History of COVID-19] Onset: 06-13-2021 06-13-2021 Episodic Other lower respiratory disease (18 sources) Hypoxia; Translations: [Hypoxemia] Onset: 06-13-2021 06-13-2021 Episodic Other lower respiratory disease (20 sources) Nodule of lung; Translations: [Solitary pulmonary nodule] Onset: 01-24-2022 Episodic Other lower respiratory disease (20 sources) Other forms of dyspnea; Translations: [Other respiratory abnormalities] Onset: 01-24-2022 Episodic Other lower respiratory disease (1 source) Other nonspecific abnormal finding of lung field; Translations: [Lung nodules] Onset: 03-20-2023 Episodic Other nervous system disorders (1 source) Ataxia, unspecified; Translations: [Ataxia] Onset: 11-15-2022 Episodic Other non-traumatic joint disorders (20 sources) Pain in right hip joint; Translations: [Pain in right hip] Onset: 11-15-2022 Episodic Other non-traumatic joint disorders (2 sources) Pain in unspecified joint; Translations: [Polyarthralgia] Onset: 02-07-2023 Episodic Other non-traumatic joint disorders (1 source) Pain in right hip; Translations: [Right hip pain] Onset: 11-15-2022 Episodic Other nutritional; endocrine; and metabolic disorders (3 sources) Body mass index (BMI) 26.0-26.9, adult; Translations: [Body mass index (BMI) 26.0-26.9, adult] Onset: 05-31-2016 05-31-2016 Episodic Residual codes; unclassified (1 source) Other general symptoms and signs; Translations: [Heat intolerance] Onset: 04-24-2023 Episodic Screening and history of mental health and substance abuse codes (20 sources) Ex-smoker; Translations: [Personal history of nicotine dependence] Onset: 04-06-2022 04-06-2022 Episodic Sexually transmitted infections (not HIV or hepatitis) (20 sources) Human papillomavirus deoxyribonucleic acid test positive, high risk on cervical specimen; Translations: [Cervical high risk human papillomavirus (HPV) DNA test positive] Onset: 05-27-2008 04-21-2021 Episodic Spondylosis; intervertebral disc disorders; other back problems (20 sources) Spasm of back muscles; Translations: [Muscle spasm of back] Onset: 11-07-2022 Episodic Results Test Name Value Interpretation Reference Range Facil ity Vital Signs Date Time Vital Sign Value Performing Clinician Linnette redding 08-10-2023 08:56-0500 Body temperature 99.7 [degF] Ganga Choe APRN.CNP Work Phone: [facility] 08-10-2023 08:56-0500 Body weight 89.63 kg Ganga Choe APRN.CNP Work Phone: [facility] 08-10-2023 08:56-0500 Diastolic blood pressure 78 mm[Hg] Ganga Choe APRN.CNP Work Phone: [facility] 08-10-2023 08:56-0500 Heart rate 74 /min Ganga Choe APRN.CNP Work Phone: [facility] 08-10-2023 08:56-0500 Respiratory rate 18 /min Ganga Choe [employer] Work Phone: [facility] 08-10-2023 08:56-0500 SaO2% (BldA) [Mass fraction] 95 % Ganga Choe [employer] Work Phone: [facility] 08-10-2023 08:56-0500 Systolic blood pressure 122 mm[Hg] Ganga Choe [employer] Work Phone: [facility] 05-28-2023 08:13-0400 Body height 175.3 cm Chris Thomas MD Work Phone: [facility] 05-28-2023 08:13-0400 Body temperature 98.01 [degF] Chris Thomas MD Work Phone: [facility] 05-28-2023 08:13-0400 Body weight 88.45 kg Chris Thomas MD Work Phone: [facility] 05-28-2023 08:13-0400 Diastolic blood pressure 68 mm[Hg] Chris Thomas MD Work Phone: [facility] 05-28-2023 08:13-0400 Heart rate 56 /min Chris Thomas MD Work Phone: [facility] 05-28-2023 08:13-0400 Systolic blood pressure 139 mm[Hg] Chris Thomas MD Work Phone: [facility] 05-24-2023 12:54-0400 Body weight 86.64 kg Selam Argueta [employer] Work Phone: [facility] 05-24-2023 12:54-0400 Diastolic blood pressure 84 mm[Hg] Selam Argueta [employer] Work Phone: [facility] 05-24-2023 12:54-0400 Heart rate 66 /min Selam Argueta [employer] Work Phone: [facility] 05-24-2023 12:54-0400 Respiratory rate 18 /min Selam Argueta APRN.[employer] Work Phone: [facility] 05-24-2023 12:54-0400 Systolic blood pressure 136 mm[Hg] Selam Argueta APRN.[employer] Work Phone: [facility] 04-24-2023 08:40-0400 Diastolic blood pressure 82 mm[Hg] Ganga Sheppard MD Work Phone: [facility] 04-24-2023 08:40-0400 Systolic blood pressure 146 mm[Hg] Ganga Sheppard MD Work Phone: [facility] 04-24-2023 07:56-0400 Body height 175.3 cm Ganga Sheppard MD Work Phone: [facility] 04-24-2023 07:56-0400 Body weight 88.91 kg Ganga Sheppard MD Work Phone: [facility] 04-24-2023 07:56-0400 Heart rate 92 /min Ganga Sheppard MD Work Phone: [facility] 04-24-2023 07:56-0400 Respiratory rate 18 /min Ganga Sheppard MD Work Phone: [facility] 04-04-2023 15:48-0400 Body height 175.3 cm Chris Thomas MD Work Phone: [facility] 04-04-2023 15:48-0400 Body temperature 98.2 [degF] Chris Thomas MD Work Phone: [facility] 04-04-2023 15:48-0400 Body weight 88.45 kg Chris Thomas MD Work Phone: [facility] 04-04-2023 15:48-0400 Diastolic blood pressure 99 mm[Hg] Chris Thomas MD Work Phone: [facility] 04-04-2023 15:48-0400 Heart rate 101 /min Chris Thomas MD Work Phone: [facility] 08-02-2023 15:48-0400 Systolic blood pressure 160 mm[Hg] Chris Thomas MD Work Phone: [facility] 03-26-2023 09:14-0400 Body weight 87.54 kg Tessy Ackerman PA-C Work Phone: [facility] 02-07-2023 08:26-0400 Body height 175.3 cm Chris Thomas MD Work Phone: [facility] 02-07-2023 08:26-0400 Body temperature 98.29 [degF] Chris Thomas MD Work Phone: [facility] 02-07-2023 08:26-0400 Body weight 86.18 kg Chris Thomas MD Work Phone: [facility] 02-07-2023 08:26-0400 Diastolic blood pressure 89 mm[Hg] Chris Thomas MD Work Phone: [facility] 02-07-2023 08:26-0400 Heart rate 63 /min Chris Thomas MD Work Phone: [facility] 02-07-2023 08:26-0400 Systolic blood pressure 155 mm[Hg] Chris Thomas MD Work Phone: [facility] 11-17-2022 14:01-0400 Body weight 87.09 kg Babs Guerra MD [facility] [facility] 11-[facility]-2022 14:01-0400 Diastolic blood pressure 72 mm[Hg] Babs Guerra MD Work Phone: [facility] 11-17-2022 14:01-0400 Heart rate 56 /min Babs Guerra MD Work Phone: [facility] 11-17-2022 14:01-0400 Respiratory rate 14 /min Babs Guerra MD Work Phone: [facility] 11-17-2022 14:01-0400 SaO2% (BldA) [Mass fraction] 96 % Babs Guerra MD Work Phone: [facility] 11-17-2022 14:01-0400 Systolic blood pressure 128 mm[Hg] Babs Guerra MD Work Phone: [facility] 11-15-2022 17:05-0400 Body temperature 98.4 [degF] Ganga Sheppard MD Work Phone: [facility] 11-15-2022 17:05-0400 Body weight 87.54 kg Ganga Sheppard MD Work Phone: [facility] 11-15-2022 17:05-0400 Diastolic blood pressure 90 mm[Hg] Ganga Sheppard MD Work Phone: [facility] 11-15-2022 17:05-0400 Heart rate 60 /min Ganga Sheppard MD Work Phone: [facility] 11-15-2022 17:05-0400 Respiratory rate 18 /min Ganga Sheppard MD Work Phone: [facility] 11-15-2022 17:05-0400 SaO2% (BldA) [Mass fraction] 95 % Ganga Sheppard MD Work Phone: [facility] 11-15-2022 17:05-0400 Systolic blood pressure 150 mm[Hg] Ganga Sheppard MD Work Phone: [facility] 11-13-2022 09:11-0400 Body height 174 cm Jeff Story DO Work Phone: [facility] 11-13-2022 09:11-0400 Body weight 85.28 kg Jeff Story DO Work Phone: [facility] 11-13-2022 09:11-0400 Respiratory rate 18 /min Jeff Story DO Work Phone: [facility] 11-07-2022 08:28-0500 Body height 172.7 cm Beto Franz MD Work Phone: [facility] 11-07-2022 08:28-0500 Body weight 85.28 kg Beto Franz MD Work Phone: [facility] 11-07-2022 08:28-0500 Respiratory rate 20 /min Beto Franz MD Work Phone: [facility] 10-09-2022 13:29-0500 Body temperature 99.9 [degF] Edwina Khoury PA-C Work Phone: [facility] 10-09-2022 13:29-0500 Body weight 87.09 kg Edwina Khoury PA-C Work Phone: [facility] 10-09-2022 13:29-0500 Diastolic blood pressure 78 mm[Hg] Edwina Khoury PA-C Work Phone: [facility] 10-09-2022 13:29-0500 Heart rate 95 /min Edwina Khoury PA-C Work Phone: [facility] 10-09-2022 13:29-0500 Respiratory rate 18 /min Edwina Khoury PA-C Work Phone: [facility] 10-09-2022 13:29-0500 SaO2% (BldA) [Mass fraction] 95 % Edwina Khoury PA-C Work Phone: [facility] 10-09-2022 13:29-0500 Systolic blood pressure 136 mm[Hg] Edwina Khoury PA-C Work Phone: [facility] 09-05-2022 09:17-0500 Body height 174 cm Beto Franz MD Work Phone: [facility] 09-05-2022 09:17-0500 Body weight 89.81 kg Beto Franz MD Work Phone: [facility] 09-05-2022 09:17-0500 Respiratory rate 20 /min Beto Franz MD Work Phone: [facility] 08-21-2022 08:43-0500 Body weight 89.81 kg Selam Argueta APRN.[employer] Work Phone: [facility] 08-21-2022 08:43-0500 Diastolic blood pressure 70 mm[Hg] Selam Argueta APRN.[employer] Work Phone: [facility] 08-21-2022 08:43-0500 Heart rate 50 /min Selam Argueta GENERAL FORE[employer]STER.[employer] Work Phone: [facility] 08-21-2022 08:43-0500 Respiratory rate 16 /min Selam Argueta GENERAL [employer]STER.[employer] Work Phone: [facility] 08-21-2022 08:43-0500 Systolic blood pressure 136 mm[Hg] Selam Argueta GENERAL FORE[employer]STER.[employer] Work Phone: [facility] 08-18-2022 08:48-0500 Body temperature 98.6 [degF] Ganga Sheppard MD Work Phone: [facility] 08-18-2022 08:48-0500 Body weight 89.81 kg Ganga Sheppard MD Work Phone: [facility] 08-18-2022 08:48-0500 Diastolic blood pressure 72 mm[Hg] Ganga Sheppard MD Work Phone: [facility] 08-18-2022 08:48-0500 Heart rate 77 /min Ganga Sheppard MD Work Phone: [facility] 08-18-2022 08:48-0500 Respiratory rate 20 /min Ganga Sheppard MD Work Phone: [facility] 08-18-2022 08:48-0500 SaO2% (BldA) [Mass fraction] 96 % Ganga Sheppard MD Work Phone: [facility] 08-18-2022 08:48-0500 Systolic blood pressure 118 mm[Hg] Ganga Sheppard MD Work Phone: [facility] 07-24-2022 16:46-0500 Body temperature 98.8 [degF] Diana Chavez APRN.[employer] Work Phone: [facility] 07-24-2022 16:46-0500 Body weight 91.17 kg Diana Chavez APRN.[employer] Work Phone: [facility] 07-24-2022 16:46-0500 Diastolic blood pressure 80 mm[Hg] Diana Praisler-Wood GENERAL FORE[employer]STER.[employer] Work Phone: [facility] 07-24-2022 16:46-0500 Heart rate 80 /min Diana Praisler-Wood GENERAL FORE[employer]STER.[employer] Work Phone: [facility] 07-24-2022 16:46-0500 Respiratory rate 16 /min Diana Praisler-Wood GENERAL FORE[employer]STER.[employer] Work Phone: [facility] 07-24-2022 16:46-0500 SaO2% (BldA) [Mass fraction] 95 % Diana Praisler-Wood GENERAL FORECASTER.[employer] Work Phone: [facility] 07-24-2022 16:46-0500 Systolic blood pressure 122 mm[Hg] Diana Praisler-Wood GENERAL FORE[employer]STER.[employer] Work Phone: [facility] 05-23-2022 08:12-0400 Body temperature 97.9 [degF] Edwina Khoury PA-C Work Phone: [facility] 05-23-2022 08:12-0400 Body weight 87.09 kg Edwina Khoury PA-C Work Phone: [facility] 05-23-2022 08:12-0400 Diastolic blood pressure 80 mm[Hg] Edwina Khoury PA-C Work Phone: [facility] 05-23-2022 08:12-0400 Heart rate 60 /min Edwina Khoury PA-C Work Phone: [facility] 05-23-2022 08:12-0400 Respiratory rate 16 /min Edwina Khoury PA-C Work Phone: [facility] 05-23-2022 08:12-0400 Systolic blood pressure 112 mm[Hg] Edwina Khoury PA-C Work Phone: [facility] 05-16-2022 09:33-0400 Diastolic blood pressure 83 mm[Hg] Edwina Khoury PA-C Work Phone: [facility] 05-16-2022 09:33-0400 Heart rate 53 /min Edwina Khoury PA-C Work Phone: [facility] 05-16-2022 09:33-0400 Systolic blood pressure 168 mm[Hg] Edwinaantionette Khoury PA-C Work Phone: [facility] 05-16-2022 08:59-0400 Body temperature 97.59 [degF] Edwina Khoury PA-C Work Phone: [facility] 05-16-2022 08:59-0400 Body weight 88.45 kg Edwinaantionette Khoury PA-C Work Phone: [facility] 05-16-2022 08:59-0400 Respiratory rate 16 /min Edwina Khoury PA-C Work Phone: [facility] 05-05-2022 08:15-0400 Body temperature 97 [degF] Carmine Montez MD Work Phone: [facility] 05-05-2022 08:15-0400 Diastolic blood pressure 78 mm[Hg] Carmine Montez MD Work Phone: [facility] 05-05-2022 08:15-0400 Heart rate 44 /min Carmine Montez MD Work Phone: [facility] 05-05-2022 08:15-0400 Respiratory rate 19 /min Carmine Montez MD Work Phone: [facility] 05-05-2022 08:15-0400 SaO2% (BldA) [Mass fraction] 95 % Carmine Montez MD Work Phone: [facility] 05-05-2022 08:15-0400 Systolic blood pressure 154 mm[Hg] Carmine Montez MD Work Phone: [facility] 05-05-2022 06:38-0400 Body height 172.7 cm Carmine Montez MD Work Phone: [facility] 05-05-2022 06:38-0400 Body weight 88 kg Carmine Montez MD Work Phone: [facility] 04-11-2022 08:36-0400 Body weight 87.09 kg Salome Wong MD Work Phone: [facility] 04-11-2022 08:36-0400 Diastolic blood pressure 57 mm[Hg] Salome Wong MD Work Phone: [facility] 04-11-2022 08:36-0400 Heart rate 55 /min Salome Wong MD Work Phone: [facility] 04-11-2022 08:36-0400 SaO2% (BldA) [Mass fraction] 97 % Salome Wong MD Work Phone: [facility] 04-11-2022 08:36-0400 Systolic blood pressure 131 mm[Hg] Salome Wong MD Work Phone: [facility] 04-06-2022 13:45-0400 Body height 172.7 cm Ganga Sheppard MD Work Phone: [facility] 04-06-2022 13:45-0400 Body weight 87.09 kg Ganga Sheppard MD Work Phone: [facility] 04-06-2022 13:45-0400 Diastolic blood pressure 84 mm[Hg] Ganga Sheppard MD Work Phone: [facility] 04-06-2022 13:45-0400 Heart rate 60 /min Ganga Sheppard MD Work Phone: [facility] 04-06-2022 13:45-0400 Respiratory rate 18 /min Ganga Sheppard MD Work Phone: [facility] 04-06-2022 13:45-0400 Systolic blood pressure 130 mm[Hg] Ganga Sheppard MD Work Phone: [facility] 03-20-2022 09:24-0400 Body weight 87.54 kg Babs Guerra MD Work Phone: [facility] 03-20-2022 09:24-0400 Diastolic blood pressure 80 mm[Hg] Babs Guerra MD Work Phone: [facility] 03-20-2022 09:24-0400 Heart rate 58 /min Babs Guerra MD Work Phone: [facility] 03-20-2022 09:24-0400 SaO2% (BldA) [Mass fraction] 98 % Babs Guerra MD Work Phone: [facility] 03-20-2022 09:24-0400 Systolic blood pressure 128 mm[Hg] Babs Guerra MD Work Phone: [facility] 03-20-2022 09:08-0400 Body height 172.5 cm Respiratory Wstr Work Phone: [facility] 03-20-2022 09:08-0400 Body weight 87.54 kg Respiratory Wstr Work Phone: [facility] 03-20-2022 09:08-0400 Heart rate 58 /min Respiratory Wstr Work Phone: [facility] 03-20-2022 09:08-0400 Respiratory rate 14 /min Respiratory Wstr Work Phone: [facility] 03-20-2022 09:08-0400 SaO2% (BldA) [Mass fraction] 98 % Respiratory Wstr Work Phone: [facility] 03-08-2022 08:07-0400 Body weight 86.64 kg Salome Wong MD Work Phone: [facility] 03-08-2022 08:07-0400 Diastolic blood pressure 73 mm[Hg] Salome Wong MD Work Phone: [facility] 03-08-2022 08:07-0400 Heart rate 51 /min Salome Wong MD Work Phone: [facility] 03-08-2022 08:07-0400 SaO2% (BldA) [Mass fraction] 98 % Salome Wong MD Work Phone: [facility] 03-08-2022 08:07-0400 Systolic blood pressure 137 mm[Hg] Salome Wong MD Work Phone: [facility] 02-01-2022 09:51-0400 Body temperature 98.71 [degF] Edwina Khoury PA-C Work Phone: [facility] 02-01-2022 09:51-0400 Body weight 85.28 kg Edwina Khoury PA-C Work Phone: [facility] 02-01-2022 09:51-0400 Diastolic blood pressure 60 mm[Hg] Edwina Khoury PA-C Work Phone: [facility] 02-01-2022 09:51-0400 Heart rate 60 /min Edwina Khoury PA-C Work Phone: [facility] 02-01-2022 09:51-0400 Respiratory rate 18 /min Edwina Khoury PA-C Work Phone: [facility] 02-01-2022 09:51-0400 Systolic blood pressure 110 mm[Hg] Edwina Khoury PA-C Work Phone: [facility] 01-24-2022 08:51-0400 Body weight 84.91 kg Ganga Sheppard MD Work Phone: [facility] 01-24-2022 08:51-0400 Diastolic blood pressure 70 mm[Hg] Ganga Sheppard MD Work Phone: [facility] 01-24-2022 08:51-0400 Heart rate 56 /min aGnga Sheppard MD Work Phone: [facility] 01-24-2022 08:51-0400 Respiratory rate 16 /min Ganga Sheppard MD Work Phone: [facility] 01-24-2022 08:51-0400 SaO2% (BldA) [Mass fraction] 97 % Ganga Sheppard MD Work Phone: [facility] 01-24-2022 08:51-0400 Systolic blood pressure 118 mm[Hg] Ganga Sheppard MD Work Phone: [facility] 01-03-2022 08:01-0400 Body temperature 98.1 [degF] Diana Praisler-Wood GENERAL FORE[employer]STER.[employer] Work Phone: [facility] 01-03-2022 08:01-0400 Body weight 85.09 kg Diana Praisler-Wood GENERAL FORE[employer]STER.[employer] Work Phone: [facility] 01-03-2022 08:01-0400 Diastolic blood pressure 80 mm[Hg] Diana Praisler-Wood GENERAL FORE[employer]STER.[employer] Work Phone: [facility] 01-03-2022 08:01-0400 Heart rate 50 /min Diana Praisler-Wood GENERAL FORECASTER.[employer] Work Phone: [facility] 01-03-2022 08:01-0400 Respiratory rate 16 /min Diana Praisler-Wood GENERAL FORE[employer]STER.[employer] Work Phone: [facility] 01-03-2022 08:01-0400 SaO2% (BldA) [Mass fraction] 97 % Diana Praisler-Wood GENERAL FORECASTER.[employer] Work Phone: [facility] 01-03-2022 08:01-0400 Systolic blood pressure 142 mm[Hg] Diana Praisler-Wood GENERAL FORE[employer]STER.[employer] Work Phone: [facility] 12-15-2021 12:29-0400 Body height 174 cm Carmine Montez MD Work Phone: [facility] 12-15-2021 12:29-0400 Body temperature 98.4 [degF] Carmine Montez MD Work Phone: [facility] 12-15-2021 12:29-0400 Body weight 86.18 kg Carmine Montez MD Work Phone: [facility] 12-15-2021 12:29-0400 Diastolic blood pressure 69 mm[Hg] Carmine Montez MD Work Phone: [facility] 12-15-2021 12:29-0400 Heart rate 65 /min Carmine Montez MD Work Phone: [facility] 12-15-2021 12:29-0400 SaO2% (BldA) [Mass fraction] 100 % Carmine Montez MD Work Phone: [facility] 12-15-2021 12:29-0400 Systolic blood pressure 132 mm[Hg] Carmine Montez MD Work Phone: [facility] 06-22-2017 09:09-0400 Heart rate 56 /min [facility] Work Phone: 06-22-2017 08:39-0400 BMI (Body Mass Index) 27.21 kg/m2 Fe Blair [facility] Work Phone: 06-22-2017 08:39-0400 BP Diastolic 78 mm[Hg] Fe Blair [facility] Work Phone: 06-22-2017 08:39-0400 BP Systolic 118 mm[Hg] [facility] Work Phone: 06-22-2017 08:39-0400 Height 172.72 cm [facility] Work Phone: 06-22-2017 08:39-0400 Pulse (Heart Rate) 64 /min Fe Blair [facility] Work Phone: 06-22-2017 08:39-0400 Respiratory Rate 16 /min [facility] Work Phone: 06-22-2017 08:39-0400 Weight 81.19 kg [facility] Work Phone: 05-31-2016 08:19-0400 BMI (Body Mass Index) 26.58 kg/m2 Fe Blair [facility] Work Phone: 05-31-2016 08:19-0400 BP Diastolic 68 mm[Hg] Fe Blair [facility] Work Phone: 05-31-2016 08:19-0400 BP Systolic 126 mm[Hg] [facility] Work Phone: 05-31-2016 08:19-0400 BSA (Body Surface Area) 1.93 m2 Fe Blair [facility] Work Phone: 05-31-2016 08:19-0400 Pulse (Heart Rate) 58 /min [facility] Work Phone: 05-31-2016 08:19-0400 Respiratory Rate 20 /min [facility] Work Phone: 05-31-2016 08:19-0400 Weight 79.29 kg [facility] Work Phone: 04-06-2016 11:13-0400 Height 172.72 cm [facility] Work Phone: Encounters Encounter Date Encounter Type Care Provider Facility Start: 08-28-2023 ambulatory GANGA SHEPPARD [facility] Start: 08-21-2023 Refill Inderprit García nguyen MD Work Phone: [facility] Procedures Date Procedure Procedure Detail Performing Clinician Start: 06-08-2023 Screening mammography bi 2-view breast inc cad Bulk Order Provider Start: 03-20-2023 Ct thorax w/o contrast material Liz Guerra MD Work Phone: Start: 11-13-2022 Radex spine lumbosacral 2/3 views Virginia Story DO Work Phone: Start: 10-09-2022 STREP A MOLECULAR (POC) Edwina Khoury PA-C Work Phone: Start: 10-09-2022 Lipid 1996 panel - Serum or Plasma Markel Sheppard MD Work Phone: Start: 09-05-2022 Arthrocentesis aspir&/inj major jt/bursa w/o us Beto Franz MD Work Phone: Start: 08-18-2022 COVID WITH FLUA+B, ROUTINE Ganga tirado MD Work Phone: Start: 08-18-2022 Urnls dip stick/tablet rgnt auto w/o microscopy Ganga Sheppard MD Work Phone: Start: 07-24-2022 Urnls dip stick/tablet rgnt auto w/o microscopy Angelina Knox PA-C Work Phone: Start: 05-05-2022 Esophagogastroduodenoscopy transoral diagnostic Carmine Montez MD Work Phone: Start: 05-05-2022 Colonoscopy flx dx w/collj spec when pfrmd Carmine Montez MD Work Phone: Start: 05-05-2022 Colonoscopy Carmine Montez MD Work Phone: Start: 04-27-2022 Mammography Mammography Coordinator Start: 04-11-2022 ALLERGEN SKIN TEST-INHALENT 40 Salome Wong MD Work Phone: Start: 03-20-2022 Noninvasive ear/pulse oximetry multiple deter Babs Guerra MD Work Phone: Start: 03-13-2022 Ct thorax w/o contrast material Liz Guerra MD Work Phone: Start: 02-22-2022 Mra head w/o contrst material Van Fagert [employer] Work Phone: Start: 02-03-2022 Ct head/brain w/o contrast material Ganga Sheppard MD Work Phone: Start: 04-14-2021 Mammography Carmine Montez MD Work Phone: Start: 09-19-2019 Colonoscopy Carmine Montez MD Work Phone: Start: 06-22-2017 End: 06-22-2017 Ecg routine ecg w/least 12 lds w/i&r Ashu Menendez MD Start: 06-22-2017 End: 06-22-2017 Follow Up Appt 6 months Ashu Menendez MD Start: 06-22-2017 End: 06-22-2017 MMM Ashu Menednez MD Start: 06-22-2017 End: 06-22-2017 Dietary management education, guidance, and counseling Fe Blair Start: 05-31-2016 End: 05-31-2016 Follow Up Appt 1 year Jenny Griffith PA-C Work Phone: Start: 05-31-2016 End: 05-31-2016 PFM Jenny Griffith PA-C Work Phone: Start: 05-31-2016 End: 05-31-2016 Dietary management education, guidance, and counseling Fe Blair Start: 04-14-2016 End: 05-18-2016 Ct thorax w/contrast material Ashu brito MD Start: 04-10-2016 End: 04-14-2016 Nuclear stress test -Lexiscan Ashu brito MD Start: 04-06-2016 End: 04-06-2016 Ecg routine ecg w/least 12 lds w/i&r Ashu Menendez MD Start: 04-06-2016 End: 04-14-2016 Echocardiography Ashu Menendez MD Start: 04-06-2016 End: 04-06-2016 Follow Up Appt 6 weeks Ashu Menendez MD Start: 04-06-2016 End: 04-06-2016 MMM Ashu Menendez MD Start: 04-06-2016 Preoperative cardiovascular examination Pre-op cardiovascular exam Fe Blair Plan of Treatment Date Care Activity Detail Author Start: 03-12-2030 Urine microalbumin profile [facility] Start: 10-09-2027 Lipid 1996 panel - S scot or Plasma Lipid Screening [facility] Start: 10-09-2027 Lipid panel Lipid Screening [facility] Start: 10-09-2027 LIPID SCREEN LIPID SCREEN [facility] Start: 05-05-2027 Colonoscopy COLONOSCOPY [facility] Start: 05-05-2027 COLORECTAL CANCER SCREENING COLORECTAL CANCER SCREENING [facility] Start: 05-05-2027 Screening for malign ant neoplasm of colon [facility] Start: 04-19-2027 LIPID SCREEN LIPID SCREEN [facility] Start: 01-24-2027 LIPID SCREEN LIPID SCREEN [facility] Start: 07-26-2026 LIPID SCREEN LIPID SCREEN [facility] Start: 06-08-2026 Diabetes Screening Diabetes Screenin g [facility] Start: 04-24-2026 DIABETES SCREEN DIABETES SCREEN [facility] Start: 04-24-2026 Diabetes Screening Diabetes Screenin g [facility] Start: 10-09-2025 DIABETES SCREEN DIABETES SCREEN [facility] Start: 05-16-2025 DIABETES SCREEN DIABETES SCREEN [facility] Start: 01-24-2025 DIABETES SCREEN DIABETES SCREEN [facility] Start: 09-19-2024 Colonoscopy COLONOSCOPY [facility] Start: 09-19-2024 COLORECTAL CANCER SCREENING COLORECTAL CANCER SCREENING [facility] Start: 08-10-2024 BP Controlled (<130/80) BP Controlle d (<130/80) [facility] Start: 08-08-2024 Urine microalbumin profile DTA P,TDAP,TD (4 - Td or Tdap) [facility] Start: 07-26-2024 DIABETES SCREEN DIABETES SCREEN [facility] Start: 07-13-2024 BP Controlled (<130/80) BP Controlle d (<130/80) [facility] Start: 06-08-2024 Mammography Mammogram Screening [facility] Start: 06-08-2024 Screening for malign ant neoplasm of breast Mammogram Screening [facility] Start: 05-24-2024 Annual PCP Team Cat And Dog Bather florecita Disease Visit Annual PCP Team Chronic Disease Visit [facility] Start: 04-24-2024 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 DISEASE VISIT ANNUAL PCP TEAM CHRONIC DISEASE VISIT [facility] Start: 04-24-2024 COVID-19 VACCINE (#1) COVID-19 VACCI NE (#1) [facility] Immunizations Immunization Date Immunization Notes Care Provider Fa cility 04-24-2023 pneumococcal (PCV20) vaccine, 20 valent (PREVNAR 20) Mely Springer PA-C Work Phone: [facility] 04-24-2023 pneumococcal Conjuga te, unspecified formulation Ganga Sheppard MD Work Phone: [facility] Work Phone: 07-26-2021 influenza, injectabl e, quadrivalent, contains preservative Carmine Montez MD Work Phone: [facility] 07-26-2021 influenza virus vaccine, unspecified formulation Ganga Sheppard MD Work Phone: [facility] 03-12-2020 tetanus toxoid, redu jose diphtheria toxoid, and acellular pertussis vaccine, adsorbed Edwina Khoury PA-C Work Phone: [facility] 07-31-2019 influenza, seasonal, injectable Carmine Montez MD Work Phone: [facility] 05-23-2018 influenza, injectabl e, quadrivalent, preservative free Carmine Montez MD Work Phone: [facility] 06-29-2017 influenza, seasonal, injectable Carmine Montez MD Work Phone: [facility] 06-19-2016 influenza, seasonal, injectable Carmine Montez MD Work Phone: [facility] 08-16-2015 influenza, seasonal, injectable Carmine Montez MD Work Phone: [facility] 08-08-2014 tetanus toxoid, redu jose diphtheria toxoid, and acellular pertussis vaccine, adsorbed Carmine Montez MD Work Phone: [facility] 04-27-2014 tetanus toxoid, redu jose diphtheria toxoid, and acellular pertussis vaccine, adsorbed Carmine Montez MD Work Phone: [facility] 04-26-2011 tetanus toxoid, redu jose diphtheria toxoid, and acellular pertussis vaccine, adsorbed Carmine Montez MD Work Phone: [facility] 02-24-1961 poliovirus vaccine, inactivated Carmine Montez MD Work Phone: [facility] 10-25-1959 poliovirus vaccine, inactivated Carmine Montez MD Work Phone: [facility] 05-07-1959 poliovirus vaccine, inactivated Carmine Montez MD Work Phone: [facility] Payers Date Payer Category Payer Medicare MEDICARE MEDICAR E A AND B [id number] 2023-Present [phone] [place] [address] Medicare [id number] 2023 Medicare [id number] 2021 Private Health Insurance HARJIT VILLEDA OAP [id number] 2021-Present [phone] [address] [place] [address] Open Access [id number] 2021 Private Health Insurance [id number] 2020 Medicaid [employer] [id number] 2020-Present [phone] [address] [place] [address] Medicaid [id number] 2020 Medicaid [id number] 2020 Medicaid [id number] 2020 Medicaid [id number] Social History Date Type Detail Facility Start: 04-26-2011 End: 02-07-2023 Tobacco smoking status NHIS Ex-smoker [facility] End: 04-26-2010 History of tobacco use Current smoker [facility] End: 04-26-2010 History of tobacco use Cigarette Smoker [facility] Start: 04-26-2011 End: 01-04-2023 Cigarettes smoked current (pack per day) - Reported 0.1 [facility] Start: 04-26-2011 End: 02-07-2023 Tobacco use and exposure Smokeless tobacco non-user [facility] Start: 12-16-2021 End: 08-10-2023 Alcohol intake Current drinker of alcohol (finding) [facility] Start: 08-24-2015 History SDOH Alcohol Comment occasionally, several times a month glass of wine or mixed drink [facility] Start: 07-05-2009 End: 04-26-2022 Tobacco Comment half a pack a week, hasn't smoked since 05/2009 [facility] Start: 1960 Sex Assigned At Female [facility] Start: 12-05-2021 End: 06-01-2022 Exposure to SARS-CoV-2 (event) Not sure [facility] Start: 01-24-2022 End: 08-20-2022 History SDOH Alcohol Frequency 2 [facility] Start: 01-24-2022 End: 08-20-2022 History SDOH Alcohol Std Drinks 1 [facility] Start: 01-24-2022 End: 08-20-2022 History SDOH Social Connections Phone 5 [facility] Start: 01-24-2022 History SDOH Social Connections Get Together 4 [facility] Start: 01-24-2022 End: 08-20-2022 History SDOH Social Connections Living 3 [facility] Start: 02-07-2022 End: 02-17-2022 Exposure to SARS-CoV-2 (event) Unable to assess [facility] Start: 08-20-2022 History SDOH Social Connections Scientologist 98 [facility] Start: 08-20-2022 History SDOH Physica l Activity DPW 0 [facility] Start: 02-07-2023 Alcohol Comment 1-2 times a we ek at most: wine [facility] Start: 08-19-2022 End: 01-04-2023 Social connection and isolation panel [facility] How often do you att end sikh or temple services? Patient refused [facility] Do you belong to any clubs or organizations such as sikh groups, unions, fraternal or athletic groups, or school groups? No [facility] Are you now , , , , never or living with a partner? [facility] How often to you hav e a drink containing alcohol? Monthly or less [facility] How many standard dr inks containing alcohol do you have on a typical day? 1 or 2 [facility] How often do you hav e 6 or more drinks on 1 occasion? Never [facility] How hard is it for y ou to pay for the very basics like food, housing, medical care, and heating Hard [facility] Do you feel stress - tense, restless, nervous, or anxious, or unable to sleep at night because your mind is troubled all the time - these days [OSQ] Very much [facility] (I/We) worried wheth er (my/our) food would run out before (I/we) got money to buy more. Sometimes true [facility] In the past 12 month s, was there a time when you were not able to pay the mortgage or rent on time? Yes [facility] Start: 06-30-2020 Gender identity Identifies as female gender (finding) [facility] Start: 06-30-2020 Sexual orientation Heterosexual (sonja collado) [facility] Medical Equipment Procedure Code Equipment Code Equipment Origin al Text Equipment Identifier Dates Mesh Parietene D s [id number] - [id number] Start: 04-05-2020 Goals Date Patient Goal Desired Activity /State Personal health goal Clinical Notes 06-12-2018 to 08-28-2023 Telephone Encounter - Rowan Tucker MA - 08/22/2023 8:40 AM Chelsey Johnson LPN - 08/15/2023 2:40 PM Ganga Mason APRN.[employer] - 08/10/2023 9:08 AM ESTPatient InstructionsPatient Instructions Note Date & Type Note Facility 08-28-2023 Note HNO ID: [id number] Author: Bita Blair CT Service: Radiology Author Type: Technologist Type: Progress Notes Filed: 08/28/2023 7:57 AM Note Text: Radiology Service Progress Note PATIENT NAME: Kristina Macario DATE OF SERVICE: August 28, 2023 TIME: 7:57 AM PATIENT IDENTITY VERIFICATION COMPLETED USING TWO (2) IDENTIFIERS: Name and Date of confirmed by patient verbally. FALL SCREENING: Has the patient had 2 falls in the last year or 1 fall with injury or currently using an Ambulatory Assistive Device (Walker, Cane, Wheelchair, Crutches, etc.)? No PATIENT GENDER DATA: Female. status: : No status: NO. PATIENT RELEVANT IMPLANT DATA REVIEWED: Not Applicable RADIOLOGY DEPARTMENT: Mammography PERIPHERAL IV DATA: Not applicable SIGNED BY: SERGIO Mayorga August 28, 2023 7:57 AM [facility] 08-22-2023 Miscellaneous Notes Patient faxed requesting the following refill. Requested Prescriptions Pending Prescriptions Disp Refills folic acid 1 mg tablet 90 tablet 0 Sig: Take 1 tablet by mouth once daily. Patient last appointment: 05/28/2023 Next Appointment: 09/20/2023 Patient Phone numbers: [phone] (home) Request is for script(s) to be escript to pharmacy. Rowan Tucker MA documented in this encounter [facility] 08-15-2023 Note [facility] 08-15-2023 History of Present illness Narrative Scan on 08/15/2023 11:47 AM by ProviderKarolina PA-C: Hematology Scan on 08/15/2023 12:14 PM by ProviderKarolina PA-C: Chemistry Scan on 08/15/2023 12:32 PM by ProviderKarolina PA-C: Consultation - Cardiology documented in this encounter [facility] 08-10-2023 Note [facility] 08-10-2023 History of Present illness Narrative Subjective HPI Nontoxic-appearing female presents to urgent care with chief complaint of fever and cough. Duration of symptoms 3 days Associated symptoms with today's chief complaint are on and off headache, muscle aches, fatigue, nonproductive cough, and low grade temperature. Patient stated symptoms started abruptly. Patient states they have used [id number] medication with some success. Sick contacts similar signs of symptoms. Patient denies any pain at this time. Patient denies any visual changes, visual disturbance, shortness of breath, rash, exercise intolerance, pleuritic pain, productive cough, abdominal pain, nausea, vomiting, chest pain, or change in bowel or bladder habits. Risk factors acute respiratory distress COVID-19, diabetes hypertension autoimmune disease. Past medical history prescription medication use allergies reviewed. .Patient presents with: Ear Pain: Bilateral ear pain, sinus, congestion, ST and fever x 3 days PAST MEDICAL HISTORY Diagnosis Date Abnormal mammogram Acute respiratory disease due to COVID-19 virus 06/16/[address] Babs Guerra Advance directive discussed with patient 04/06/2022 Discussed 04/06/2022 Arthritis of knee, left 01/31/2013 Arthritis of left hip 01/19/2016 Ascending aorta dilatation (HCC) 07/04/2017 04/19/16: 4.2 cm 06/11/17: 4.4 cm 06/24/18 4.4 cm Cervical high risk human papillomavirus (HPV) DNA test positive 05/27/2008 Chronic anxiety 06/01/2021 Chronic diarrhea 12/09/2018 Chronic hypoxemic respiratory failure (HCC) 09/06/2021 resolved Chronic pain syndrome 11/29/[address] Bustillos as of 11/27/2022 Chronic prescription benzodiazepine use 06/01/2021 DDD (degenerative disc disease), lumbar 07/24/[address] Jose Raul Camarena Dependence on nocturnal oxygen therapy 04/24/2023 Seeing Pulm Elevated hemoglobin A1c 04/24/2023 Essential tremor 04/06/2022 Ex-smoker 04/06/2022 Excessive or frequent menstruation Heavy periods Fibromyalgia 02/26/2014 Hemorrhage of gastrointestinal tract, unspecified History of COVID-19 06/13/202105/2021 Hydrocephalus, adult ([facility]) 02/09/2003 Hypertension, essential 01/22/2019 Living will on file 04/06/2022 DPA: Victoriano () Lung nodule 01/24/2022 Seeing pulm Migraines 07/26/2021 Used to see neuro and was getting Botox Mild dysplasia of cervix 2006 Mixed hyperlipidemia 01/20/2016 Nonrheumatic mitral valve disorder, unspecified 04/06/2016 Obstructive sleep apnea 10/13/2016 DME - [facility] Plantar fasciitis 2018 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 Babs Guerra Postcoital bleeding Primary insomnia 06/13/2021 Primary osteoarthritis of both knees 11/15/2022 Primary osteoarthritis of both shoulders 04/06/2022 Seeing [facility] Rectocele 04/19/2007 Renal cyst 07/13/2016 Rheumatoid arthritis ([facility]) 04/24/2023 Seeing Rheum. Right knee pain Situational mixed anxiety and depressive disorder 11/12/2017 Spinal stenosis, lumbar region, without neurogenic claudication 11/15/2022 Thoracic aortic aneurysm without rupture ([facility]) 2018 Urge incontinence 04/19/2007 Vitamin D deficiency 07/23/2012 Well adult exam 06/13/2021 Last done: 06/13/2021 PAST SURGICAL HISTORY Procedure Laterality Date APPENDECTOMY 1987 COLONOSCOPY 08/19/2013 COLONOSCOPY FLX DX W/COLLJ SPEC WHEN PFRMD 09/19/2019 Colonoscopy COLONOSCOPY SCREENING 05/05/2022 repeat in 5 years COLONOSCOPY W/BIOPSY SINGLE/MULTIPLE 03/15/2009 minimal colitis-repeat in COLPOSCOPY CERVIX UPPER/ADJACENT VAGINA Colposcopy DILATION & CURETTAGE DX&/THER NONOBSTETRIC 2002 Dilation & curettage EGD 05/05/2022 mild gastritis ESOPHAGOGASTRODUODENOSCOPY TRANSORAL DIAGNOSTIC 09/19/2019 EGD LIG/TRNSXJ FLP TUBE ABDL/VAG APPR UNI/BI 1989&1991 Tubal ligation PAST SURGICAL HISTORY OF 2000 BRAIN SURG/HYDROCEPHALIS - PAST SURGICAL HISTORY OF 2000 REPAIR TENNIS ELBOW PAST SURGICAL HISTORY OF 09/07/06, 05/10,11/08 repair rotator cuff/tendon rt. shoulder PAST SURGICAL HISTORY OF 10/2017 ex lap, ALFRED PROCEDURE , COLOSTOMY PAST SURGICAL HISTORY OF Right 06/2022 Reverse shoulder surgery PICC LINE INSERT/CONSULT 10/26/2017 REPAIR FIRST ABDOMINAL WALL HERNIA 04/05/2020 Hernia repair, incisional STEREOTACTIC LOCALIZATION BREAST BIOPSY 06/10/2015 right TOTAL HIP REPLACEMENT Right 06/18/2023 TUBAL LIGATION HX 1989 and 1991 VAGINAL HYSTERECTOMY UTERUS 250 GM/< 09/04/2008 Hysterectomy, vaginal/TVT ALLERGIES Dilaudid [Hydromorphone (Pf)], Sulfa (Sulfonamide Antibiotics), Ultram [Tramadol Hcl], Oxycontin [Oxycodone Hcl], Relafen [Nabumetone], and Sertraline MEDICATIONS fluticasone (FLONASE) 50 mcg/actuation nasal spray Use 2 Sprays in each nostril once daily. Rinse mouth after use. hydrOXYzine HCl (ATARAX) 10 mg tablet Take 1 tablet by mouth three times a day as needed. atorvastatin (LIPITOR) 40 mg tablet Take 1 tablet by mouth daily at bedtime. For cholesterol. FLUoxetine (PROZAC) 40 mg capsule Take 1 capsule by mouth twice daily. losartan (COZAAR) 100 mg tablet Take 1 tablet by mouth once daily. traZODone (DESYREL) 100 mg tablet Take 1 tablet by mouth daily at bedtime. folic acid 1 mg tablet Take 1 tablet by mouth once daily. meloxicam (MOBIC) 15 mg tablet Take 1 tablet by mouth once daily. Take with food. cyclobenzaprine (FLEXERIL) 10 mg tablet Take 1 tablet by mouth three times daily as needed (for fibro pain). azelastine (ASTELIN, ASTEPRO) 0.1% nasal spray Use 2 Sprays in each nostril twice daily as needed. metoprolol succinate ER (TOPROL XL) 50 mg 24 hr tablet Take 2 tablets by mouth once daily. CPAP Lifetime supplies for AutoPAP 6-11 cm H20 including mask, heated tubing, humidity, filters. Fax 30 day download report to [phone] to assess residual ahi. vit C-Zn gluc-herbal no.325 (ELDERBERRY ZINC VIT C) 90-15 mg lozg Use 1 Lozenge as instructed twice daily. calcium carbonate (CALTRATE 600 ORAL) Take 1 tablet by mouth once daily. multivitamin tablet Take 1 tablet by mouth once daily. BIOTIN ORAL Take 1 tablet by mouth once daily. Cholecalciferol, Vitamin D3, 2,000 unit cap Take 10,000 Units by mouth once daily. methotrexate 2.5 mg tablet Take 4 tablets by mouth every Sunday. as directed. FAMILY HISTORY Problem Relation Age of Onset Heart Mother skin cancer on nose Breast Cancer Mother Heart Father Hypertension Father Heart Maternal Grandmother Thyroid Sister Thyroid Paternal Aunt Social History Tobacco Use Smoking status: Former Packs/day: 0.10 Years: 2.00 Additional pack years: 0.00 Total pack years: 0.20 Types: Cigarettes Quit date: 04/26/2010 Years since quittin.2 Smokeless tobacco: Never Vaping Use Vaping Use: Never used Substance Use Topics Alcohol use: Yes Comment: 1-2 times a week at most: wine Drug use: No BP 122/78 Pulse 74 Temp 37.6 C (99.7 F) (Tympanic) Resp 18 Wt 89.6 kg (197 lb 9.6 oz) LMP 08/04/2008 SpO2 95% BMI 29.18 kg/m Review of Systems Constitutional: Positive for chills, fever and malaise/fatigue. HENT: Positive for congestion and sore throat. Negative for ear discharge, ear pain and sinus pain. Eyes: Negative for blurred vision, pain, discharge and redness. Respiratory: Positive for cough. Negative for hemoptysis, sputum production, shortness of breath, wheezing and stridor. Cardiovascular: Negative for chest pain. Gastrointestinal: Negative for abdominal pain, diarrhea, nausea and vomiting. Musculoskeletal: Positive for myalgias. Skin: Negative for itching and rash. Neurological: Positive for headaches. Negative for dizziness. Objective Physical Exam Constitutional: General: She is not in acute distress. Appearance: She is not diaphoretic. HENT: Head: Normocephalic. Jaw: No trismus, tenderness, swelling or pain on movement. Right Ear: Tympanic membrane, ear canal and external ear normal. Left Ear: Tympanic membrane, ear canal and external ear normal. Nose: Congestion present. Mouth/Throat: Mouth: Mucous membranes are moist. Pharynx: Oropharynx is clear. Uvula midline. No pharyngeal swelling, oropharyngeal exudate, posterior oropharyngeal erythema or uvula swelling. Eyes: Conjunctiva/sclera: Conjunctivae normal. Pupils: Pupils are equal, round, and reactive to light. Cardiovascular: Rate and Rhythm: Normal rate and regular rhythm. Heart sounds: Normal heart sounds. Pulmonary: Effort: Pulmonary effort is normal. No tachypnea, accessory muscle usage or respiratory distress. Breath sounds: No stridor. No wheezing, rhonchi or rales. Abdominal: General: There is no distension. Palpations: Abdomen is soft. Tenderness: There is no abdominal tenderness. There is no guarding or rebound. Musculoskeletal: Cervical back: Normal range of motion and neck supple. No edema, erythema, rigidity or tenderness. No pain with movement. Normal range of motion. Lymphadenopathy: Cervical: No cervical adenopathy. Skin: General: Skin is warm and dry. Neurological: Mental Status: She is alert and oriented to person, place, and time. ASSESSMENT/PLAN: 1. Viral illness - ICD9: 079.99, ICD10: B34.9 Patient nontoxic-appearing. Hemodynamically stable. High suspicion for COVID-19. Recommended testing and antiviral therapy due to high risk past medical history. Patient declined testing at this point. Treat supportively at this point. Red flags for ER evaluation discussed. Patient was educated on supportive therapies. Patient will follow up with primary care provider as needed. Patient was instructed to immediately proceed to emergency room for any new, worsening, or symptoms lasting longer than anticipated. The patient's clinical presentation is otherwise unremarkable at this time. Based on exam and clinical finding, the patient is stable for discharge. Plan of care was discussed with patient. Patient verbalizes understanding and agrees to plan of care. This note was generated using myBestHelper software. It may contain errors in wording, punctuation, or spelling. Ganga hCoe APRN.[employer] documented in this encounter [facility] 08-09-2023 Miscellaneous Notes Received pre-op clearance fors from [facility] for pt's left reverse total shoulder arthoplasty scheduled on . Pt does have an appointment scheduled for 10/10/[address] Sheppard. Forms placed on pcp's desk. Asmita Mason LPN documented in this encounter [facility] 07-13-2023 Note [facility] 07-10-2023 Note HNO ID: [id number] Author: Asmita Mason LPN Service: ? Author Type: ? Type: Progress Notes Filed: 07/11/2023 9:21 PM Note Text: Scan on 07/09/2023 11:55 AM by Karolina Cruz PA-C: Ultrasound [facility] 07-10-2023 History of Present illness Narrative Scan on 07/09/2023 11:55 AM by Kaorlina Cruz PA-C: Ultrasound documented in this encounter [facility] 06-22-2023 Note HNO ID: [id number] Author: Asmita Mason LPN Service: ? Author Type: ? Type: Progress Notes Filed: 06/22/2023 2:14 PM Note Text: Scan on 06/22/2023 12:45 PM by Karolina Cruz PA-C: Bone Density [facility] 06-22-2023 History of Present illness Narrative Scan on 06/22/2023 12:45 PM by Karolina Cruz PA-C: Bone Density documented in this encounter [facility] 06-19-2023 Note HNO ID: [id number] Author: Asmita Mason LPN Service: ? Author Type: ? Type: Progress Notes Filed: 06/19/2023 8:59 PM Note Text: Scan on 06/18/2023 11:57 AM by ProviderKarolina PA-C: Orthopedics [facility] 06-19-2023 History of Present illness Narrative Scan on 06/18/2023 11:57 AM by ProviderKarolina PA-C: Orthopedics documented in this encounter [facility] 06-14-2023 Miscellaneous Notes Pt is at [facility] for DXA scan but does not have an order. I have faxed that to [phone] and Nina did receive this order at 0929 today. Aarti Garay LPN documented in this encounter [facility] 06-08-2023 Note [facility] 06-08-2023 History of Present illness Narrative Radiology Service Progress Note PATIENT NAME: Kristina Macario DATE OF SERVICE: June 08, 2023 TIME: 2:05 PM PATIENT IDENTITY VERIFICATION COMPLETED USING TWO (2) IDENTIFIERS: Name and Date of confirmed by patient verbally. FALL SCREENING: Has the patient had 2 falls in the last year or 1 fall with injury or currently using an Ambulatory Assistive Device (Walker, Cane, Wheelchair, Crutches, etc.)? No PATIENT GENDER DATA: Female. status: : No status: NO. PATIENT RELEVANT IMPLANT DATA REVIEWED: Not Applicable RADIOLOGY DEPARTMENT: Mammography PERIPHERAL IV DATA: Not applicable SIGNED BY: Mariya Paez June 08, 2023 2:05 PM documented in this encounter [facility] 06-02-2023 Miscellaneous Notes Last Rx: 05/16/22 #60 w/1. Last OV: 05/24/23 Next OV: 10/26/23 Kena Kim Ma documented in this encounter [facility] 06-01-2023 Note [facility] 06-01-2023 History of Present illness Narrative This note was created using [employer]. Subjective Kristina Macario is a 63 year old female seen today via zoom visit. She is here for evaluation of hydrocephalus. She is s/p neuroendoscopic third ventriculostomy with Dr. Noble is 2000. She was seen last year with some issues with walking. We did a high volume LP and she never followed up after this. She is supposed to get a surgery on her hip on June 18. She feels that her walking was due to the hip. Doesn't remember having the LP last year. She states that she had an injection which helped. So she is going to go through with the hip surgery. She reports money being tight and under a lot of stress. Review of Systems Objective LMP 08/04/2008 Physical Exam Assessment and Plan Hydrocephalus s/p ETV by Dr. Noble in 2000 Walking difficulties due to R hip being bad Planned for hip surgery mid June. No imaging today. Recommend MRI brain with cine flow. F/u after MRI If stable, recommend f/u prn. Pt understands and agrees. I spent a total of 25 minutes on the date of the service which included preparing to see the patient, [id number] patient care, completing clinical documentation, obtaining and/or reviewing separately obtained history, counseling and educating the patient/family/caregiver, ordering medications, tests, or procedures, communicating with other HCPs (not separately reported), and care coordination (not separately reported). This virtual visit was conducted via zerved which is a HIPAA compliant video platform. I received consent from the patient to perform the visit using this platform. The visit required patient-provider interaction for the medical decision making as documented herein. I have communicated my name and active licensure. The patient's identity and physical location were verified at the time of this visit. Either the patient or their legal passenger relations representative has been informed of the risks and benefits of -- and alternatives to -- treatment through a remote evaluation and consents to proceed with the evaluation remotely. documented in this encounter [facility] 05-28-2023 Note HNO ID: [id number] Author: Chris Thomas MD Service: ? Author Type: Physician Type: Progress Notes Filed: 05/28/2023 8:36 AM Note Text: This note was created using [employer]. Subjective Kristina Macario is a 63 year old female. Used mtx and cannot notices a big diff No side effect At present OK Back pain Right hip pain pending replacement Left shoulder pain pending replacement Hurts to walk in the leg and in the back Morning stiffness is lasting 4 hours plus, vague possibly day long, not recovering from stiffness. Gelling Freeze up Review of Systems Objective Blood Pressure 139/68 Pulse (Abnormal) 56 Temperature 36.7 ?C (98 ?F) Height 175.3 cm (5' 9 ) Weight 88.5 kg (195 lb) Last Menstrual Period 08/04/2008 Body Mass Index 28.80 kg/m? Physical Exam Vitals reviewed. Constitutional: General: She is not in acute distress. Appearance: Normal appearance. She is not ill-appearing or toxic-appearing. Cardiovascular: Rate and Rhythm: Normal rate and regular rhythm. Heart sounds: Normal heart sounds. No murmur heard. No friction rub. No gallop. Pulmonary: Effort: No respiratory distress. Breath sounds: Normal breath sounds. No stridor. No wheezing or rhonchi. Abdominal: General: There is no distension. Palpations: There is no mass. Tenderness: There is no abdominal tenderness. Hernia: No hernia is present. Musculoskeletal: Right shoulder: Normal. Left shoulder: Normal. Right elbow: Normal. Left elbow: Normal. Right wrist: Normal. Left wrist: Normal. Right hand: Normal. Left hand: Normal. Cervical back: No rigidity or tenderness. Thoracic back: Normal. Lumbar back: Normal. Right hip: Normal. Left hip: Normal. Right knee: Normal. Left knee: Normal. Right ankle: Normal. Left ankle: Normal. Right foot: Normal. Left foot: Normal. Comments: rmal. Comments: Decreased range of motion of CS and LS Left shoulder severe Decreased range of motion Right shoulder moderate Decreased range of motion replacement Right hip not bearing wt Decreased range of motion Left hip Decreased range of motion Knee crepitus Tender lipomatous texture calf Dip pip enlargement Wrist tender bilateral no swelling Lymphadenopathy: Cervical: No cervical adenopathy. Skin: Findings: No rash. Neurological: Mental Status: She is alert. Assessment and Plan First visit 02/07/23 Wants to get rid of pain Not seen rheum before 02/07/23 RA ( 03/25 wrist only involved ) Fibromyalgia Dr. Baez 2012 visit (2000 diagnosis ) 2020 Hep C neg 2013 Hep B S Ab ) 2020 thryoglobulin ab neg 02/23 CCP 81 unit, R 29 SANIYA neg esr 17 crp normal uric 7.1, 04/24 SSA SSB 02/23 IgA, IgG Transglutaminase Ab: neg, IgA (mg/dl): 235 (( 02/23 dry mouth med related 2022 note, no saliva gland swelling) 02/23 exam consistent with Fibromyalgia + possible Dercum + gen OA 02/07/23 ((02/23 started with pain 1994, blamed it on sport, quit playing sports, volley ball and soft ball played till 38 )) ( Partial improvement with prednisone when used for COVID partial improvement ) TT Sulfa allergic kid 04/04/23 plaquenil 200 mg bid 02/09/23 MTX 10 mg (04/04/23 started) (( last used 05/12/23 ) ) 05/26 OK to see 3 month, resume mtx once wound healed post surg 05/28/23 Drug and disease monitoring 01/23 vit B12 303 10/26 cbc dif tsh cmp hgAic 5.8 high 04/25 vit d 77 TMJ ( 02/23 minor issue, does grind ) Chronic neck pain (02/23 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 There is mild right C3-4, C4-5 and C5-6 neural foramina encroachment. There are severe hypertrophic changes in the left C4-5 and C5-6 facet joint causing severe neural foraminal encroachment Mid back pain ((02/23 2019 started ) CT 2022 noted features of DISH present 02/07/23 Chronic low back pain ((02/23 :: onset 2012, localized, radiates to thigh ) 2022 xr LS : There is mild to moderate degenerative disc disease and significant arthritic changes through the facet joints. 2014 MRI LS : Mild lumbar degenerative disease without central canal or neural foraminal stenosis. TT 05/26 observe OA Shoulder bilateral Right shoulder replacement 06/2402/07/23 ( doing better ) ( was work related inj 2004 ) (02/23 left shoulder pain 2018, never dislocated, Pain in the joint while patient is sleeping., severe Decreased range of motion TT Ortho seen for left shoulder xr done in past, has been told about replacement by ortho ) Right elbow pain (02/23 since 06/24 shoulder replacement ) ( 02/23 no left elbow pain ) Wrist ( 02/23 no pain, but noted weakness 2019, numbness bilateral numbness, EMG done, num (more content not included)... [facility] 05-28-2023 Instructions Chris Thomas MD - 05/28/2023 8:32 AM EDT BONE MINERAL DENSITY PATIENT INSTRUCTIONS ======== Bone mineral density testing measures the amount of calcium in certain parts of your bones. This information determines how strong your bones are. The test is used to detect osteoporosis, a disease in which the bone's mineral content and density are low, increasing a person's risk of fractures. The lumbar spine (lower back) and the hip are the skeletal sites usually examined. For the test, remember that: 1. You cannot take this test if you are . 2. Eat a normal diet on the day of the test. 3. Take your medications as you normally would. 4. DO NOT take calcium supplements (such as Tums) for 24 hours before the test. 5. On the day of the test, leave valuables (jewelry or credit cards) at home. 6. The test should be performed prior to oral, rectal or IV contrast studies, or at least 7 days after any of these studies. For the test, you may be asked to wear a hospital gown. You will lie on your back, on a padded table, in a comfortable position. Generally, you can resume your usual activities immediately. documented in this encounter [facility] 05-28-2023 History of Present illness Narrative This note was created using [employer]. Subjective Kristina Macario is a 63 year old female. Used mtx and cannot notices a big diff No side effect At present OK Back pain Right hip pain pending replacement Left shoulder pain pending replacement Hurts to walk in the leg and in the back Morning stiffness is lasting 4 hours plus, vague possibly day long, not recovering from stiffness. Gelling Freeze up Review of Systems Objective Blood Pressure 139/68 Pulse (Abnormal) 56 Temperature 36.7 C (98 F) Height 175.3 cm (5' 9 ) Weight 88.5 kg (195 lb) Last Menstrual Period 08/04/2008 Body Mass Index 28.80 kg/m Physical Exam Vitals reviewed. Constitutional: General: She is not in acute distress. Appearance: Normal appearance. She is not ill-appearing or toxic-appearing. Cardiovascular: Rate and Rhythm: Normal rate and regular rhythm. Heart sounds: Normal heart sounds. No murmur heard. No friction rub. No gallop. Pulmonary: Effort: No respiratory distress. Breath sounds: Normal breath sounds. No stridor. No wheezing or rhonchi. Abdominal: General: There is no distension. Palpations: There is no mass. Tenderness: There is no abdominal tenderness. Hernia: No hernia is present. Musculoskeletal: Right shoulder: Normal. Left shoulder: Normal. Right elbow: Normal. Left elbow: Normal. Right wrist: Normal. Left wrist: Normal. Right hand: Normal. Left hand: Normal. Cervical back: No rigidity or tenderness. Thoracic back: Normal. Lumbar back: Normal. Right hip: Normal. Left hip: Normal. Right knee: Normal. Left knee: Normal. Right ankle: Normal. Left ankle: Normal. Right foot: Normal. Left foot: Normal. Comments: rmal. Comments: Decreased range of motion of CS and LS Left shoulder severe Decreased range of motion Right shoulder moderate Decreased range of motion replacement Right hip not bearing wt Decreased range of motion Left hip Decreased range of motion Knee crepitus Tender lipomatous texture calf Dip pip enlargement Wrist tender bilateral no swelling Lymphadenopathy: Cervical: No cervical adenopathy. Skin: Findings: No rash. Neurological: Mental Status: She is alert. Assessment and Plan First visit 02/07/23 Wants to get rid of pain Not seen rheum before 02/07/23 RA ( 03/25 wrist only involved ) Fibromyalgia Dr. Baez 2012 visit (2000 diagnosis ) 2020 Hep C neg 2013 Hep B S Ab ) 2020 thryoglobulin ab neg 02/23 CCP 81 unit, R 29 SANIYA neg esr 17 crp normal uric 7.1, 04/24 SSA SSB 02/23 IgA, IgG Transglutaminase Ab: neg, IgA (mg/dl): 235 (( 02/23 dry mouth med related 2022 note, no saliva gland swelling) 02/23 exam consistent with Fibromyalgia + possible Dercum + gen OA 02/07/23 ((02/23 started with pain 1994, blamed it on sport, quit playing sports, volley ball and soft ball played till 38 )) ( Partial improvement with prednisone when used for COVID partial improvement ) TT Sulfa allergic kid 04/04/23 plaquenil 200 mg bid 02/09/23 MTX 10 mg (04/04/23 started) (( last used 05/12/23 ) ) 05/26 OK to see 3 month, resume mtx once wound healed post surg 05/28/23 Drug and disease monitoring 01/23 vit B12 303 10/26 cbc dif tsh cmp hgAic 5.8 high 04/25 vit d 77 TMJ ( 02/23 minor issue, does grind ) Chronic neck pain (02/23 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 There is mild right C3-4, C4-5 and C5-6 neural foramina encroachment. There are severe hypertrophic changes in the left C4-5 and C5-6 facet joint causing severe neural foraminal encroachment Mid back pain ((02/23 2019 started ) CT 2022 noted features of DISH present 02/07/23 Chronic low back pain ((02/23 :: onset 2012, localized, radiates to thigh ) 2022 xr LS : There is mild to moderate degenerative disc disease and significant arthritic changes through the facet joints. 2015 MRI LS : Mild lumbar degenerative disease without central canal or neural foraminal stenosis. TT 05/26 observe OA Shoulder bilateral Right shoulder replacement 06/2402/07/23 ( doing better ) ( was work related inj 2004 ) (02/23 left shoulder pain 2018, never dislocated, Pain in the joint while patient is sleeping., severe Decreased range of motion TT Ortho seen for left shoulder xr done in past, has been told about replacement by ortho ) Right elbow pain (02/23 since 06/24 shoulder replacement ) ( 02/23 no left elbow pain ) Wrist ( 02/23 no pain, but noted weakness 2019, numbness bilateral numbness, EMG done, numbness intermittent. ) Hand pain ( 02/23 minimal, no Raynaud's Phenomenon ) 02/07/23 ( grasp is issue ) OA Hip ( right hip ) ((02/23 right hip pain 2020 ) OA left hip replacement done 05/2016 xr LS : Right hip has moderate to severe osteoarthritis issues. TT 11/23 IR right hip inj done. (Worked good one week ) 05/2606/04/23 right hip replacement planned OA knee bilateral ((02/23 bilateral knee pain 1979, recent giving away, no locking ) 2021 xr : Right knee: Tricompartmental osteophytes with moderate lateral compartment joint space narrowing. Genu valgus. Mild lateral patellar tilt. 2021 xr : Left knee: Tricompartmental osteophytes with no significant joint space narrowing. Genu valgus. Mild lateral patellar tilt. 2021 right knee MRI : Large field of view images of the joints demonstrate anterior horn lateral meniscus tear with extrusion and associated chondral injury, incompletely assessed. TT Ortho steroid inj last few week 02/07/23 No visco supplementation done 02/07/23 02/07/23 use compression stocking thigh high should help knee pain, component of Dermcum Feet pain (02/23 mild, never gout, no ankle ) 02/07/23 HTN no Diabetes Mellitus II No [place] no stroke 02/07/232021 CT chest Thoracic aortic aneurysm, moderate AR 2021 CT chest : ectatic ascending aorta measuring 4.5 cm 2022 bilateral carotid doppler normal HUBER ( CPAP getting reset ) 02/07/23 Post COVID dyspnea (05/24 COVID ) Pulm nodule 2021 CT chest : stable 6 mm solid nodule abutting the pleural surface in the right lung, series 6 image 80. A calcified granuloma is again noted in the right upper lung. TT Seeing pulm Hydrocephalus Migraines 2021 MRI : Stable ventriculomegaly. Patent third ventriculostomy. 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 ( Last neurology [facility] ) GERD Chronic diarrhea Diverticulosis partial colon resectoin 2017 2021 EGD : Gastric oxyntic and antral mucosa mild chronic inactive gastritis. 2021 Colonoscopy normal 05/28/23 Get DXA done. Ambulation issue Cane use : off and on 09/2022 started 02/23 trouble walking 09/2022, trouble sitting and trouble getting up. 03/25 does not wt bear on the right leg, diff getting off and on exam table needing assistance. 05/26 walker 05/04/23 started, on account of poor balance, ( single fall 05/26 but caught herself from falling ) ((05/26 pain in the hips causing diff balance )) Pain mgt : Pain mgt seen ( not following with them ) PT done last done 2022 Heating pad back and right hip , using this year , 2019 started 05/28/23 Oxycodone swelling OFF Ultram GI upset OFF Nabumetone GI upset OFF Zoloft tremor OFF ( Failed cym lyrica and gabapentin ) Flexeril 10 mg tid 2022 started some relief, dry mouth tired 02/23 Prozac 40 mg 2021 no help pain 02/07/23 Mobic 15 2020 mild relief 02/07/23 Trazodone 200 mg years ( sleep no help with pain ) 02/07/23 Brief Personal and family history: 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 , 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 Patient presents for pre op clearance for right hip arthroplasty. Patient has already received clearance from cardiology. Patient currently on methotrexate and plaquenil. Past medical history, appointments, medications, allergies reviewed. Previous Medical History PAST MEDICAL HISTORY Diagnosis Date Abnormal mammogram Acute respiratory disease due to COVID-19 virus 06/16/[address] Babs Guerra Advance directive discussed with patient 04/06/2022 Discussed 04/06/2022 Arthritis of knee, left 01/31/2013 Arthritis of left hip 01/19/2016 Ascending aorta dilatation (HCC) 07/04/201716: 4.2 cm 06/11/17: 4.4 cm 06/24/18 4.4 cm Cervical high risk human papillomavirus (HPV) DNA test positive 05/27/2008 Chronic anxiety 06/01/2021 Chronic diarrhea 12/09/2018 Chronic hypoxemic respiratory failure (HCC) 09/06/2021 resolved Chronic pain syndrome 11/29/[address] Bustillos as of 11/27/2022 Chronic prescription benzodiazepine use 06/01/2021 DDD (degenerative disc disease), lumbar 07/24/[address] [facility] Dependence on nocturnal oxygen therapy 04/24/2023 Seeing Pulm Elevated hemoglobin A1c 04/24/2023 Essential tremor 04/06/2022 Ex-smoker 04/06/2022 Excessive or frequent menstruation Heavy periods Fibromyalgia 02/26/2014 Hemorrhage of gastrointestinal tract, unspecified History of COVID-19 06/13/202105/2021 Hydrocephalus, adult (HCC) 02/09/2003 Hypertension, essential 01/22/2019 Living will on file 04/06/2022 DPA: Victoriano () Lung nodule 01/24/2022 Seeing pulm Migraines 07/26/2021 Used to see neuro and was getting Botox Mild dysplasia of cervix 2006 Mixed hyperlipidemia 01/20/2016 Nonrheumatic mitral valve disorder, unspecified 04/06/2016 Obstructive sleep apnea 10/13/2016 DME - [facility] Plantar fasciitis 2018 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 Babs Guerra Postcoital bleeding Primary insomnia 06/13/2021 Primary osteoarthritis of both knees 11/15/2022 Primary osteoarthritis of both shoulders 04/06/2022 Seeing [facility] Rectocele 04/19/2007 Renal cyst 07/13/2016 Rheumatoid arthritis ([facility]) 04/24/2023 Seeing Rheum. Right knee pain Situational mixed anxiety and depressive disorder 11/12/2017 Spinal stenosis, lumbar region, without neurogenic claudication 11/15/2022 Thoracic aortic aneurysm without rupture ([facility]) 2018 Urge incontinence 04/19/2007 Vitamin D deficiency 07/23/2012 Well adult exam 06/13/2021 Last done: 06/13/2021 Previous Surgical History PAST SURGICAL HISTORY Procedure Laterality Date APPENDECTOMY 1987 COLONOSCOPY 08/19/2013 COLONOSCOPY FLX DX W/COLLJ SPEC WHEN PFRMD 09/19/2019 Colonoscopy COLONOSCOPY SCREENING 05/05/2022 repeat in 5 years COLONOSCOPY W/BIOPSY SINGLE/MULTIPLE 03/15/2009 minimal colitis-repeat in COLPOSCOPY CERVIX UPPER/ADJACENT VAGINA Colposcopy DILATION & CURETTAGE DX&/THER NONOBSTETRIC 2002 Dilation & curettage EGD 05/05/2022 mild gastritis ESOPHAGOGASTRODUODENOSCOPY TRANSORAL DIAGNOSTIC 09/19/2019 EGD LIG/TRNSXJ FLP TUBE ABDL/VAG APPR UNI/BI 1989&1991 Tubal ligation PAST SURGICAL HISTORY OF 2000 BRAIN SURG/HYDROCEPHALIS - PAST SURGICAL HISTORY OF 2000 REPAIR TENNIS ELBOW PAST SURGICAL HISTORY OF 09/07/06, 05/10,11/08 repair rotator cuff/tendon rt. shoulder PAST SURGICAL HISTORY OF 10/2017 ex lap, ALFRED PROCEDURE , COLOSTOMY PAST SURGICAL HISTORY OF Right 06/2022 Reverse shoulder surgery PICC LINE INSERT/CONSULT 10/26/2017 REPAIR FIRST ABDOMINAL WALL HERNIA 04/05/2020 Hernia repair, incisional STEREOTACTIC LOCALIZATION BREAST BIOPSY 06/10/2015 right TUBAL LIGATION HX 1989 and 1991 VAGINAL HYSTERECTOMY UTERUS 250 GM/< 09/04/2008 Hysterectomy, vaginal/TVT Family History FAMILY HISTORY Problem Relation Age of Onset Heart Mother skin cancer on nose Breast Cancer Mother Heart Father Hypertension Father Heart Maternal Grandmother Thyroid Sister Thyroid Paternal Aunt Patient Allergies ALLERGIES Allergen Reactions Dilaudid [Hydromorp* Mental Status Change, Other: See Comments Hallucinations Sulfa (Sulfonamide * Rash Ultram [Tramadol Hc* GI Upset Pt. tried again on 02-13 and became very ill with GI issues Oxycontin [Oxycodon* Swelling Relafen [Nabumetone] GI Upset Sertraline Other: See Comments Tremors right upper extremity. Current Medications Current Outpatient Medications on File Prior to Visit Medication Sig atorvastatin (LIPITOR) 40 mg tablet Take 1 tablet by mouth daily at bedtime. For cholesterol. FLUoxetine (PROZAC) 40 mg capsule Take 1 capsule by mouth twice daily. losartan (COZAAR) 100 mg tablet Take 1 tablet by mouth once daily. traZODone (DESYREL) 100 mg tablet Take 1 tablet by mouth daily at bedtime. folic acid 1 mg tablet Take 1 tablet by mouth once daily. methotrexate 2.5 mg tablet Take 4 tablets by mouth every Sunday. as directed. meloxicam (MOBIC) 15 mg tablet Take 1 tablet by mouth once daily. Take with food. hydrOXYchloroQUINE (PLAQUENIL) 200 mg tablet Take 1 tablet by mouth twice daily. cyclobenzaprine (FLEXERIL) 10 mg tablet Take 1 tablet by mouth three times daily as needed (for fibro pain). hydrOXYzine HCl (ATARAX) 10 mg tablet Take 1 tablet by mouth three times daily as needed. azelastine (ASTELIN, ASTEPRO) 0.1% nasal spray Use 2 Sprays in each nostril twice daily as needed. metoprolol succinate ER (TOPROL XL) 50 mg 24 hr tablet Take 2 tablets by mouth once daily. CPAP Lifetime supplies for AutoPAP 6-11 cm H20 including mask, heated tubing, humidity, filters. Fax 30 day download report to [phone] to assess residual ahi. fluticasone (FLONASE) 50 mcg/actuation nasal spray Use 2 Sprays in each nostril once daily. Rinse mouth after use. vit C-Zn gluc-herbal no.325 (ELDERBERRY ZINC VIT C) 90-15 mg lozg Use 1 Lozenge as instructed twice daily. calcium carbonate (CALTRATE 600 ORAL) Take 1 tablet by mouth once daily. multivitamin tablet Take 1 tablet by mouth once daily. BIOTIN ORAL Take 1 tablet by mouth once daily. Cholecalciferol, Vitamin D3, 2,000 unit cap Take 10,000 Units by mouth once daily. No current facility-administered medications on file prior to visit. Social History Social History Tobacco Use Smoking status: Former Packs/day: 0.10 Years: 2.00 Additional pack years: 0.00 Total pack years: 0.20 Types: Cigarettes Quit date: 04/26/2010 Years since quittin.0 Smokeless tobacco: Never Vaping Use Vaping Use: Never used Substance Use Topics Alcohol use: Yes Comment: 1-2 times a week at most: wine Drug use: No Review of Symptoms REVIEW OF SYSTEMS GENERAL: No weight loss, malaise or fevers HEENT: No changes in hearing or vision, no nose bleeds or other nasal problems NECK: Negative for lumps, goiter, pain and significant neck swelling RESPIRATORY: Negative for cough, hemoptysis, wheezing, COPD, dyspnea or shortness of breath CARDIOVASCULAR: Negative for chest pain, leg swelling, hypertension, CHF or palpitations GI: No nausea, vomiting, or diarrhea : No history of dysuria, frequency or incontinence CAFE HELPER: Negative for abnormal vaginal bleeding, abnormal vaginal discharge MUSCULOSKELETAL: joint pain or swelling SKIN: Negative for lesions, rash, and itching PSYCH: Positive for depression: and anxiety: HEMATOLOGY/LYMPHOLOGY: Negative for prolonged bleeding, bruising easily or swollen nodes ENDOCRINE: Positive for heat intolerance: NEURO: No history of headaches, syncope, paralysis, seizures or tremors EXAM: BP 136/84 Pulse 66 Resp 18 Wt 86.6 kg (191 lb) LMP 08/04/2008 BMI 28.21 kg/m General Appearance: Well appearing, alert, in no acute distress, well-hydrated, well nourished.. Lungs: Lungs clear to auscultation. No wheezing, rhonchi, rales.. Heart: RRR without murmur, gallop, or rubs. No ectopy. Abdomen: Normal abdominal exam, Abdomen soft, non-tender. Bowel sounds normal. No masses, organomegaly Musculoskeletal: Positive findings: joint location: on right hip pain, painful movement, loss of ROM, and stiffness, Peripheral Pulses: Rima. Health Maintenance List BP Controlled (<130/80) due on 06/13/2022 Advance Directive Discussion Never done Mammogram Screening due on 04/27/2023 Bone Density Screening due on 2023 Influenza Vaccine(1) due on 05/04/2023 Shingrix Vaccine(1 of 2) due on 04/24/2024 Covid-19 Vaccine(1) due on 04/24/2024 Annual PCP Team Chronic Disease Visit due on 04/24/2024 Diabetes Screening due on 04/24/2026 Colorectal Cancer Screening due on 05/05/2027 Lipid Screening due on 10/09/2027 DTaP,Tdap,Td Vaccine(5 - Td or Tdap) due on 03/12/2030 Hepatitis C Screening Completed Pneumococcal Vaccine: 65+ Completed Pap Testing Discontinued HIV Screening Discontinued ASSESSMENT/PLAN: 1. Rheumatoid arthritis, involving unspecified site, unspecified whether rheumatoid factor present (HCC) - ICD9: 714.0, ICD10: M06.9 (primary diagnosis) -Follows with Rheumatology, discussed pending surgery with Dr. Thomas who advised patient should hold methotrexate starting now. Medication can be resumed once surgical incision is fully healed. Last dose 05/13 2. Moderate aortic regurgitation - ICD9: 424.1, ICD10: I35.1 -Cardiac clearance received, clinically stable. 3. Essential tremor - ICD9: 333.1, ICD10: G25.0 4. Dependence on nocturnal oxygen therapy - ICD9: V46.2, ICD10: Z99.81 -compliant with cpap with 2l oxygen bled in 5. Primary insomnia - ICD9: 307.42, ICD10: F51.01 -continue trazodone 6. Gastroesophageal reflux disease without esophagitis - ICD9: 530.81, ICD10: K21.9 - Discussed lifestyle modifications including losing weight, limiting caffeine, no meals three hours before sleep, and head of bed elevation 7. Spinal stenosis, lumbar region, without neurogenic claudication - ICD9: 724.02, ICD10: M48.061 -Follows with ortho spine 8. Right hip pain - ICD9: 719.45, ICD10: M25.551 -Follows with ortho 9. DDD (degenerative disc disease), lumbar - ICD9: 722.52, ICD10: M51.36 -SEE #7 10. Ascending aorta dilatation (HCC) - ICD9: 447.71, ICD10: I77.810 -SEE #2 11. Situational mixed anxiety and depressive disorder - ICD9: 309.28, ICD10: F43.23 -Continue prozac and prn atarax 12. Hypertension, essential - ICD9: 401.9, ICD10: I10 - Controlled - Continue current medications - Recommend home blood pressure monitoring, to bring results to next visit - Encouraged sodium restriction, DASH or Mediterranean diet - Recommend regular aerobic exercise - Discussed need for and benefit of weight loss. BMI 28.21 kg/(m^2) 13. Thoracic aortic aneurysm without rupture, unspecified part (HCC) - ICD9: 441.2, ICD10: I71.20 -Follows with cardiology, clinically stable Patient seen and examined. Patient optimized for surgery. Discussed case with Dr. Thomas and patient advised to hold methotrexate from now until surgical incision is healed. Selam Argueta APRN.[employer] documented in this encounter [facility] 05-21-2023 Miscellaneous Notes Pt notified. She states she has an appt with Edwina tomorrow, could she discuss with her at that appt? I advised pt that she is seeing Edwina for a preop appt and that she would also need to see PCP to discuss. Pt is scheduled to see PCP on 05/31 (for 40 min) advised she keep that appt AND try and contact providers who performed injections/PT. Pt verbalized understanding. Abelardo Duran LPN Let patient know I would need to see her to write this letter since I was not the one who ordered the PHYSICAL THERAPY or did the injection. Otherwise she would need to get info from the providers she saw and a letter from the PHYSICAL THERAPY provider she saw. Appt with me would need to be 40 min to have the time to get the history and review the chart with her. Pt calls to report that [facility] needs something for insurance that states that pt has tried PT and injections (done at [facility]) for right hip pain. Also that pain limits pt's function. Pt reports she went from fully functioning to walking with a cane and now uses a walker. Pt reports [facility] needs this information in order for insurance to ok right hip surgery. Paulina Jalloh LPN documented in this encounter [facility] 05-18-2023 Miscellaneous Notes Called and left a detailed voicemail notifying patient of providers message. Hospital phone number was left in case patient had any questions. Cathi Almaraz RN Let patient know her carotid US was ok. No significant narrowing on either side. documented in this encounter [facility] 05-03-2023 Note [facility] 05-03-2023 History of Present illness Narrative POPULATION HEALTH NAVIGATION OUTREACH Action/I [place] Support: Called pt to schedule an appt in Pain Management. Patient declined Patient Identified by Name and : YES, via phone Outreach Outcome/Action Spoke to patient / parent / legal guardian: Patient declined Did you use a PCP flex slot to schedule this appointment? No Reason for Outreach Care Gap or Scheduling/Wellness visits Payer: Payor: [employer] / Plan: [employer] OAP / Product Type: Open Access / Care Gap Reviewed:: Specialty Scheduling Reminder: Reminder note to check Health Maintenance for items below Health Maintenance items due: BP CONTROLLED (<130/80) due on 06/13/2022 ADVANCE DIRECTIVE DISCUSSION Never done MAMMOGRAM due on 04/27/2023 BONE DENSITY due on 2023 Navigation Signature: Dixie Jackson May 03, 2023 9:11 AM documented in this encounter [facility] 04-25-2023 Miscellaneous Notes Patient notified of results and provider's instructions. Patient verbalizes understanding. Pt states [facility] was still waiting on US orders. Checked with office. Orders for heart monitor have been faxed to [facility]. Pt is already scheduled at [place] for US. Pain Management referral has been approved by pt's insurance. Called pt back and left vm with all of this info. Advised pt she can call scheduling to set up pain management appointment. Asmita Mason LPN Let patient know Thyroid labs, Vit D and tests for dry mouth were all normal. Her blood sugar test was normal this time. Her urine shows signs of a UTI and sent in a antibiotic to [facility]. The following approved medication requests have been transmitted electronically. Requested Prescriptions Signed Prescriptions Disp Refills nitrofurantoin monohydrate and macrocrystal (MACROBID) 100 mg capsule 14 capsule 0 Sig: Take 1 capsule by mouth twice daily with meals for 7 days. Authorizing Provider: GANGA SHEPPARD MD documented in this encounter [facility] 04-24-2023 Miscellaneous Notes Follow up 4-6 weeks Mely Springer No imaging hydrocephalus [facility] [facility] 04-24-2023 Note [facility] 04-24-2023 Instructions Ganga Sheppard MD - 04/24/2023 9:16 AM EDT Consider getting the shingrix vaccine for the prevention of shingles from a local pharmacy documented in this encounter [facility] 04-24-2023 History of Present illness Narrative Medicare Yearly Visit Medical B eligibilty date 04/03/2023 Date of last exam NA PAST MEDICAL HISTORY Diagnosis Date Abnormal mammogram Acute respiratory disease due to COVID-19 virus 06/16/[address] Babs Guerra Advance directive discussed with patient 04/06/2022 Discussed 04/06/2022 Arthritis of knee, left 01/31/2013 Arthritis of left hip 01/19/2016 Ascending aorta dilatation (HCC) 07/04/2017 04/19/16: 4.2 cm 06/11/17: 4.4 cm 06/24/18 4.4 cm Cervical high risk human papillomavirus (HPV) DNA test positive 05/27/2008 Chronic anxiety 06/01/2021 Chronic diarrhea 12/09/2018 Chronic hypoxemic respiratory failure (HCC) 09/06/2021 resolved Chronic pain syndrome 11/29/[address] Bustillos as of 11/27/2022 Chronic prescription benzodiazepine use 06/01/2021 DDD (degenerative disc disease), lumbar 07/24/[address] Jose Raul Camarena Elevated hemoglobin A1c 04/24/2023 Essential tremor 04/06/2022 Ex-smoker 04/06/2022 Excessive or frequent menstruation Heavy periods Fibromyalgia 02/26/2014 Hemorrhage of gastrointestinal tract, unspecified History of COVID-19 06/13/202105/2021 Hydrocephalus, adult (HCC) 02/09/2003 Hypertension, essential 01/22/2019 Living will on file 04/06/2022 DPA: Victoriano () Lung nodule 01/24/2022 Seeing pulm Migraines 07/26/2021 Used to see neuro and was getting Botox Mild dysplasia of cervix 2007 Mixed hyperlipidemia 01/20/2016 Nonrheumatic mitral valve disorder, unspecified 04/06/2016 Obstructive sleep apnea 10/13/2016 DME - [facility] Plantar fasciitis 2018 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 Babs Guerra Postcoital bleeding Primary insomnia 06/13/2021 Primary osteoarthritis of both knees 11/15/2022 Primary osteoarthritis of both shoulders 04/06/2022 Seeing [facility] Rectocele 04/19/2007 Renal cyst 07/13/2016 Rheumatoid arthritis (HCC) 04/24/2023 Seeing Rheum. Right knee pain Situational mixed anxiety and depressive disorder 11/12/2017 Spinal stenosis, lumbar region, without neurogenic claudication 11/15/2022 Thoracic aortic aneurysm without rupture (HCC) 2018 Urge incontinence 04/19/2007 Vitamin D deficiency 07/23/2012 Well adult exam 06/13/2021 Last done: 06/13/2021 PAST SURGICAL HISTORY Procedure Laterality Date APPENDECTOMY 1987 COLONOSCOPY 08/19/2013 COLONOSCOPY FLX DX W/COLLJ SPEC WHEN PFRMD 09/19/2019 Colonoscopy COLONOSCOPY SCREENING 05/05/2022 repeat in 5 years COLONOSCOPY W/BIOPSY SINGLE/MULTIPLE 03/15/2009 minimal colitis-repeat in COLPOSCOPY CERVIX UPPER/ADJACENT VAGINA Colposcopy DILATION & CURETTAGE DX&/THER NONOBSTETRIC 2002 Dilation & curettage EGD 05/05/2022 mild gastritis ESOPHAGOGASTRODUODENOSCOPY TRANSORAL DIAGNOSTIC 09/19/2019 EGD LIG/TRNSXJ FLP TUBE ABDL/VAG APPR UNI/BI 1989&1991 Tubal ligation PAST SURGICAL HISTORY OF 2000 BRAIN SURG/HYDROCEPHALIS - PAST SURGICAL HISTORY OF 2000 REPAIR TENNIS ELBOW PAST SURGICAL HISTORY OF 09/07/06, 05/10,11/08 repair rotator cuff/tendon rt. shoulder PAST SURGICAL HISTORY OF 10/2017 ex lap, ALFRED PROCEDURE , COLOSTOMY PAST SURGICAL HISTORY OF Right 06/2022 Reverse shoulder surgery PICC LINE INSERT/CONSULT 10/26/2017 REPAIR FIRST ABDOMINAL WALL HERNIA 04/05/2020 Hernia repair, incisional STEREOTACTIC LOCALIZATION BREAST BIOPSY 06/10/2015 right TUBAL LIGATION HX 1989 and 1991 VAGINAL HYSTERECTOMY UTERUS 250 GM/< 09/04/2008 Hysterectomy, vaginal/TVT ALLERGIES: Dilaudid [Hydromorphone (Pf)], Sulfa (Sulfonamide Antibiotics), Ultram [Tramadol Hcl], Oxycontin [Oxycodone Hcl], Relafen [Nabumetone], and Sertraline Medications reviewed: Yes FAMILY HISTORY Problem Relation Age of Onset Heart Mother skin cancer on nose Breast Cancer Mother Heart Father Hypertension Father Heart Maternal Grandmother Thyroid Sister Thyroid Paternal Aunt SOCIAL HISTORY: Social History Tobacco Use Smoking status: Former Packs/day: 0.10 Years: 2.00 Additional pack years: 0.00 Total pack years: 0.20 Types: Cigarettes Quit date: 04/26/2010 Years since quittin.0 Smokeless tobacco: Never Vaping Use Vaping Use: Never used Substance Use Topics Alcohol use: Yes Comment: 1-2 times a week at most: wine Drug use: No Kristina denies regular aerobic exercise. She watches her diet for sodium, low fat and low cholesterol most of the time. List of current specialists seen: Dr. Thomas (Rheum) Dr. Blunt ([facility]) Neuro, [facility] (Cardio) Dr. Babs Guerra (pulm) End of Live Planning discussed including patients advanced directive wishes: Yes I am willing to follow Kristina's advanced directives. PHQ-2 / Depression screen Depression Screening 02/28/2022 03/29/2022 05/16/2022 04/24/2023 PHQ-2 Score 6 4 4 4 PHQ-9 Score 21 18 16 - MANDIE-2 Total Score - - - - Depression screening tool completed and reviewed. Based on score and interview, patient is already diagnosed with depression. Screening tool discussed with patient, and I recommended increasing medication. Functional Ability/Safety Screen 1. Was the patient's timed Up and Go test unsteady or longer than 30 seconds? No 2. Does the patient need help with the phone, transportation, shopping,preparing meals, housework, laundry, medications or managing money? No 3. Does your home have rugs in the hallway (Y), lack of grab bars in the bathroom (Y), lack of handrails on the stairs (Y) or have poor lighting? No Hearing Evaluation: normal PHYSICAL EXAM BP 146/82 Pulse 92 Resp 18 Ht 175.3 cm (5' 9 ) Wt 88.9 kg (196 lb) LMP 08/04/2008 BMI 28.94 kg/m Alert and oriented X 3: YES Body mass index is 28.94 kg/m . Visual acuity: seeing optho See below ASSESSMENT/PLAN: 62 year old female The following prevention plan was discussed during the office visit and provided to the patient: See below Ganga Sheppard MD Chief Complaint Patient presents with: Physical HPI Kristina Macario is a 62 year old female who presents here today for Physical. Office visit - physical 04/24/2023 Patient with hx of hyperlipidemia, HTN, thoracic aortic aneurysm, aorta dilatation, aortic regurg, HUBER, anxiety/depression, vit d def. Fibro, insomnia, post COVID dyspnea, hydrocephalus and those as below. Patient's pain is not well controlled. She saw Dr. Bustillos back in November but then never heard back. Would like to establish with [facility] for pain control. Has been having some elevated BP's with mild headache's. Gets palpitations at times . Also feeling dizzy and off balance at times. Sometimes this is with the palpitations. Sleep is still not good. She cut back on trazodone from 200 mg before bed to 100 mg because she was too tired the next day but now not sleeping. She has noticed increased urine frequency and urgency. Some increased thirst. No hematuria. Some dry mouth. Has been getting GERD once or twice a week. Takes a tums when needed. Tremors have improved. Has some numbness and tinging in the right arm and ortho feels this maybe a pinched nerve. Noting more intolerance to heat. Office visit - physical 04/06/2022 Patient with hx of HLP, HTN, Thoracic aortic aneurysm, Ascending aorta dilatation, Aortic regurge seeing cardio, HUBER, Recent covid illness, mixed anxiety/depression, vit D def, Fibro, primary insomnia, Hydrocephalus, as well as those reviewed and addressed below in in ROS. Patient indicated some unsteady issues; no falls; but close calls. Also was when she was in her car yesterday putting seat belt on she turned and felt a pop having pain in left shoulder. Patient discussed her balance issues along with her incontinence and memory concerns with her Neurologist recently and underwent a lumbar puncture with her Hx of Hydrocephalus. Patient feels this was beneficial but still with some symptoms. Past medical history, appointments, medications, allergies reviewed. Previous Medical History PAST MEDICAL HISTORY Diagnosis Date Abnormal mammogram Advance directive discussed with patient 04/06/2022 Discussed 04/06/2022 Arthritis of knee, left 01/31/2013 Arthritis of left hip 01/19/2016 Ascending aorta dilatation (HCC) 07/04/2017 04/19/16: 4.2 cm 06/11/17: 4.4 cm 06/24/18 4.4 cm Cervical high risk human papillomavirus (HPV) DNA test positive 05/27/2008 Chronic anxiety 06/01/2021 Chronic diarrhea 12/09/2018 Chronic hypoxemic respiratory failure (HCC) 09/06/2021 resolved Chronic pain syndrome 11/29/[address] Bustillos as of 11/27/2022 Chronic prescription benzodiazepine use 06/01/2021 DDD (degenerative disc disease), lumbar 07/24/[address] [facility] Essential tremor 04/06/2022 Ex-smoker 04/06/2022 Excessive or frequent menstruation Heavy periods Fibromyalgia 02/26/2014 Hemorrhage of gastrointestinal tract, unspecified History of COVID-19 06/13/202105/2021 Hydrocephalus, adult (HCC) 02/09/2003 Hypertension, essential 01/22/2019 Living will on file 04/06/2022 DPA: Victoriano () Lung nodule 01/24/2022 Seeing pulm Migraines 07/26/2021 Used to see neuro and was getting Botox Mild dysplasia of cervix 2007 Mixed hyperlipidemia 01/20/2016 Nonrheumatic mitral valve disorder, unspecified 04/06/2016 Obstructive sleep apnea 10/13/2016 DME - [facility] Plantar fasciitis 2018 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 Babs Guerra Postcoital bleeding Primary insomnia 06/13/2021 Primary osteoarthritis of both shoulders 04/06/2022 Seeing [facility] Rectocele 04/19/2007 Renal cyst 07/13/2016 Right knee pain Situational mixed anxiety and depressive disorder 11/12/2017 Thoracic aortic aneurysm without rupture (HCC) 2018 Urge incontinence 04/19/2007 Vitamin D deficiency 07/23/2012 Well adult exam 06/13/2021 Last done: 06/13/2021 Previous Surgical History PAST SURGICAL HISTORY Procedure Laterality Date APPENDECTOMY 1987 COLONOSCOPY 08/19/2013 COLONOSCOPY FLX DX W/COLLJ SPEC WHEN PFRMD 09/19/2019 Colonoscopy COLONOSCOPY SCREENING 05/05/2022 repeat in 5 years COLONOSCOPY W/BIOPSY SINGLE/MULTIPLE 03/15/2009 minimal colitis-repeat in COLPOSCOPY CERVIX UPPER/ADJACENT VAGINA Colposcopy DILATION & CURETTAGE DX&/THER NONOBSTETRIC 2002 Dilation & curettage EGD 05/05/2022 mild gastritis ESOPHAGOGASTRODUODENOSCOPY TRANSORAL DIAGNOSTIC 09/19/2019 EGD LIG/TRNSXJ FLP TUBE ABDL/VAG APPR UNI/BI 1989&1991 Tubal ligation PAST SURGICAL HISTORY OF 2000 BRAIN SURG/HYDROCEPHALIS - PAST SURGICAL HISTORY OF 2000 REPAIR TENNIS ELBOW PAST SURGICAL HISTORY OF 09/07/06, 05/10,11/08 repair rotator cuff/tendon rt. shoulder PAST SURGICAL HISTORY OF 10/2017 ex lap, ALFRED PROCEDURE , COLOSTOMY PAST SURGICAL HISTORY OF Right 06/2022 Reverse shoulder surgery PICC LINE INSERT/CONSULT 10/26/2017 REPAIR FIRST ABDOMINAL WALL HERNIA 04/05/2020 Hernia repair, incisional STEREOTACTIC LOCALIZATION BREAST BIOPSY 06/10/2015 right TUBAL LIGATION HX 1989 and 1991 VAGINAL HYSTERECTOMY UTERUS 250 GM/< 09/04/2008 Hysterectomy, vaginal/TVT Family History FAMILY HISTORY Problem Relation Age of Onset Heart Mother skin cancer on nose Breast Cancer Mother Heart Father Hypertension Father Heart Maternal Grandmother Thyroid Sister Thyroid Paternal Aunt Patient Allergies ALLERGIES Allergen Reactions Dilaudid [Hydromorp* Mental Status Change, Other: See Comments Hallucinations Sulfa (Sulfonamide * Rash Ultram [Tramadol Hc* GI Upset Pt. tried again on 02-13 and became very ill with GI issues Oxycontin [Oxycodon* Swelling Relafen [Nabumetone] GI Upset Sertraline Other: See Comments Tremors right upper extremity. Current Medications Current Outpatient Medications on File Prior to Visit Medication Sig folic acid 1 mg tablet Take 1 tablet by mouth once daily. methotrexate 2.5 mg tablet Take 4 tablets by mouth every Sunday. as directed. meloxicam (MOBIC) 15 mg tablet Take 1 tablet by mouth once daily. Take with food. hydrOXYchloroQUINE (PLAQUENIL) 200 mg tablet Take 1 tablet by mouth twice daily. FLUoxetine (PROZAC) 40 mg capsule Take 1 capsule by mouth once daily. cyclobenzaprine (FLEXERIL) 10 mg tablet Take 1 tablet by mouth three times daily as needed (for fibro pain). traZODone (DESYREL) 100 mg tablet Take 2 tablets by mouth daily at bedtime. hydrOXYzine HCl (ATARAX) 10 mg tablet Take 1 tablet by mouth three times daily as needed. atorvastatin (LIPITOR) 40 mg tablet Take 1 tablet by mouth daily at bedtime. For cholesterol. azelastine (ASTELIN, ASTEPRO) 0.1% nasal spray Use 2 Sprays in each nostril twice daily as needed. metoprolol succinate ER (TOPROL XL) 50 mg 24 hr tablet Take 2 tablets by mouth once daily. CPAP Lifetime supplies for AutoPAP 6-11 cm H20 including mask, heated tubing, humidity, filters. Fax 30 day download report to [phone] to assess residual ahi. fluticasone (FLONASE) 50 mcg/actuation nasal spray Use 2 Sprays in each nostril once daily. Rinse mouth after use. vit C-Zn gluc-herbal no.325 (ELDERBERRY ZINC VIT C) 90-15 mg lozg Use 1 Lozenge as instructed twice daily. losartan (COZAAR) 50 mg tablet 50 mg once daily. calcium carbonate (CALTRATE 600 ORAL) Take 1 tablet by mouth once daily. multivitamin tablet Take 1 tablet by mouth once daily. BIOTIN ORAL Take 1 tablet by mouth once daily. Cholecalciferol, Vitamin D3, 2,000 unit cap Take 10,000 Units by mouth once daily. No current facility-administered medications on file prior to visit. Social History Social History Tobacco Use Smoking status: Former Packs/day: 0.10 Years: 2.00 Additional pack years: 0.00 Total pack years: 0.20 Types: Cigarettes Quit date: 04/26/2010 Years since quittin.0 Smokeless tobacco: Never Vaping Use Vaping Use: Never used Substance Use Topics Alcohol use: Yes Comment: 1-2 times a week at most: wine Drug use: No Review of Symptoms REVIEW OF SYSTEMS GENERAL: No weight loss, malaise or fevers HEENT: Negative for frequent or significant headaches, No changes in hearing or vision, no nose bleeds or other nasal problems. Some dry mouth and watery eyes. NECK: Negative for lumps, goiter, pain and significant neck swelling RESPIRATORY: Negative for cough, hemoptysis, increased wheezing, COPD, dyspnea or shortness of breath CARDIOVASCULAR: Negative for chest pain, leg swelling, hypertension,. See HPI GI: No nausea, vomiting, or diarrhea. Gets GERD 1-2 times a week. No blood : See HPI MUSCULOSKELETAL: having increase muscular pains. Especially the right hip and left shoulder. SKIN: Negative for lesions, rash, and itching PSYCH: the prozac has helped but per patient and it could be better. HEMATOLOGY/LYMPHOLOGY: Negative for prolonged bleeding, bruising easily or swollen nodes ENDOCRINE: Negative for cold. Has had some polyuria, polydipsia. NEURO: No history of syncope, paralysis, seizures or increased tremors EXAM: BP 146/82 Pulse 92 Resp 18 Ht 175.3 cm (5' 9 ) Wt 88.9 kg (196 lb) LMP 08/04/2008 BMI 28.94 kg/m Last 5 Encounter Wt Readings: Date: Wt: 04/24/2023 88.9 kg (196 lb) 04/04/2023 88.5 kg (195 lb) 03/26/2023 87.5 kg (193 lb) 02/07/2023 86.2 kg (190 lb) 11/17/2022 87.1 kg (192 lb) General Appearance: Well appearing, alert, in no acute distress, well-hydrated, well nourished. and Overweight. Skin: Skin color, texture, turgor normal, no suspicious rashes or lesions. Head: Normocephalic, no masses, lesions, tenderness or abnormalities. Eyes: Anicteric sclera. Pupils are equally round and reactive to light. Extraocular movements are intact. . Ears: External ears, TM's normal, canals clear. Nose/Sinuses: Nares normal, septum midline, mucosa normal, no drainage or sinus tenderness. Oropharynx: Lips, mucosa, and tongue normal, teeth and gums normal, oropharynx normal. Neck: Supple, no adenopathy; thyroid symmetric, normal size, no bruits. Lungs: Lungs clear to auscultation. No wheezing, rhonchi, rales.. Heart: RRR without murmur, gallop, or rubs. No ectopy. Abdomen: Normal abdominal exam, Abdomen soft, non-tender. Bowel sounds normal. No masses, organomegaly. Extremities: No deformities, edema, skin discoloration, Good capillary refill. . Musculoskeletal: Muscular strength intact, No joint swelling, deformity, or tenderness. Peripheral Pulses: Normal. Neurologic: Gait normal. Reflexes normal and symmetric. Sensation to light touch and crainal nerves 2-12 intact.. Health Maintenance List COVID-19 VACCINE(1) Never done PNEUMOCOCCAL(1 - PCV) Never done SHINGRIX VACCINE(1 of 2) Never done BP CONTROLLED (<130/80) due on 06/13/2022 MAMMOGRAM due on 04/27/2023 INFLUENZA(1) due on 05/04/2023 ANNUAL PCP TEAM CHRONIC DISEASE VISIT due on 11/16/2023 DIABETES SCREEN due on 10/09/2025 COLORECTAL CANCER SCREENING due on 05/05/2027 LIPID SCREEN due on 10/09/2027 DTAP,TDAP,TD(5 - Td or Tdap) due on 03/12/2030 HEPATITIS C SCREENING Completed PAP TESTING Discontinued HPV TESTING Discontinued HIV SCREENING Discontinued Data reviewed Component Latest Ref Rng & Units 04/19/2022 05/16/2022 10/09/2022 02/07/2023 WBC 3.70 - 11.00 k/uL 9.67 14.28 (H) RBC 3.90 - 5.20 m/uL 4.38 4.44 Hemoglobin 11.5 - 15.5 g/dL 14.0 13.5 Hematocrit 36.0 - 46.0 % 41.7 39.8 MCV 80.0 - 100.0 fL 95.2 89.6 MCH 26.0 - 34.0 pg 32.0 30.4 MCHC 30.5 - 36.0 g/dL 33.6 33.9 RDW-CV 11.5 - 15.0 % 12.6 13.2 Platelet Count 150 - 400 k/uL 232 228 MPV 9.0 - 12.7 fL 11.8 11.4 Neut% % 67.1 81.7 Abs Neut (ANC) 1.45 - 7.50 k/uL 6.49 11.66 (H) Lymph% % 20.9 8.1 Abs Lymph 1.00 - 4.00 k/uL 2.02 1.16 [place]% % 9.7 9.2 Abs [place] <0.87 k/uL 0.94 (H) 1.31 (H) Eosin% % 1.7 0.4 Abs Eosin <0.46 k/uL 0.16 0.06 Baso% % 0.2 0.2 Abs Baso <0.11 k/uL <0.03 0.03 Immature Gran % % 0.4 0.4 IMMATURE GRANS (ABS) <0.10 k/uL 0.04 0.06 NRBC /100 WBC 0.0 0.0 Absolute nRBC <0.01 k/uL <0.01 <0.01 DTYPE Auto Auto Protein, Total 6.3 - 8.0 g/dL 7.4 Albumin 3.9 - 4.9 g/dL 4.4 Calcium 8.5 - 10.2 mg/dL 9.8 Bilirubin, Total 0.2 - 1.3 mg/dL 0.6 Alkaline Phosphatase 34 - 123 U/L 129 (H) AST 13 - 35 U/L 20 ALT 7 - 38 U/L 21 Glucose 74 - 99 mg/dL 116 (H) BUN 7 - 21 mg/dL 14 Creatinine 0.58 - 0.96 mg/dL 0.80 Sodium 136 - 144 mmol/L 137 Potassium 3.7 - 5.1 mmol/L 3.8 Chloride 97 - 105 mmol/L 98 CO2 22 - 30 mmol/L 26 Anion Gap 9 - 18 mmol/L 13 eGFR >=60 mL/min/1.73m 82 Total Cholesterol, Nonfasting <200 mg/dL 186 208 (H) Triglycerides, Nonfasting <150 mg/dL 143 132 HDL Cholesterol, Nonfasting >39 mg/dL 50 59 LDL Cholesterol, Nonfasting <100 mg/dL 107 (H) 123 (H) Non HDL Cholesterol, Nonfasting <130 mg/dL 136 (H) 149 (H) VLDL Cholesterol, Nonfasting <30 mg/dL 29 26 Total Chol/HDL Ratio, Nonfasting <5.10 mg/dL 3.72 3.53 LDL/HDL Ratio, Nonfasting <2.54 mg/dL 2.14 2.08 Hemoglobin A1C 4.3 - 5.6 % 5.8 (H) Estimated Average Glucose mg/dL 120 TSH 0.270 - 4.200 mIU/L 2.000 0.976 Vitamin D 25 Hydroxy 31.0 - 80.0 ng/mL 77.4 Vitamin B12 232 - 1,245 pg/mL 303 Free T4 0.9 - 1.7 ng/dL 1.0 IgA 70 - 400 mg/dL 235 A/P ASSESSMENT/PLAN: 1. Encounter for Medicare annual wellness exam - ICD9: V70.0, ICD10: Z00.00 (primary diagnosis) - Counseled on healthy diet and regular exercise - Calcium intake with supplements or by diet of 1000 mg/day for under 50, 2783-6182 mg/day for 50+ - Discussed need and benefit for weight loss. BMI 28.94 kg/(m^2) - Patient was counseled [id number] by myself (the billing provider) for the following immunizations and vaccine components, including side effects: Pneumococcal . Patient consents for immunization and understands risks and benefits. A VIS sheet on each immunization was given to the patient. - Follow up for annual exam in one year Advised on getting shingrix. 2. Mixed hyperlipidemia - ICD9: 272.2, ICD10: E78.2 - Controlled - Continue current medications - Counseled on healthy diet and regular exercise - URINALYSIS, WITH MICROSCOPIC 3. Hypertension, essential - ICD9: 401.9, ICD10: I10 - Uncontrolled - Continue current medications - Increase losartan to 100 mg a day. - Recommend home blood pressure monitoring, to bring results to next visit - Encouraged sodium restriction, DASH or Mediterranean diet - Recommend regular aerobic exercise - URINALYSIS, WITH MICROSCOPIC 4. Other migraine without status migrainosus, not intractable - ICD9: 346.80, ICD10: G43.809 - stable no changes. 5. Hydrocephalus, adult (HCC) - ICD9: 331.4, ICD10: G91.9 - message sent to Neuro to see if they wanted her to f/u. 6. Ascending aorta dilatation (HCC) - ICD9: 447.71, ICD10: I77.810 - management per cardio 7. Moderate aortic regurgitation - ICD9: 424.1, ICD10: I35.1 - as per #7 8. Nonrheumatic mitral valve disorder, unspecified - ICD9: 424.0, ICD10: I34.9 - as per #7 9. Thoracic aortic aneurysm without rupture, unspecified part (HCC) - ICD9: 441.2, ICD10: I71.20 - as per #7 10. Post-COVID chronic dyspnea - ICD9: 786.09, 139.8, ICD10: R06.09, U09.9 - management per Pulm 11. Chronic anxiety - ICD9: 300.00, ICD10: F41.9 Increase - FLUOXETINE 40 MG CAPSULE to one BID 12. Situational mixed anxiety and depressive disorder - ICD9: 309.28, ICD10: F43.23 As above - FLUOXETINE 40 MG CAPSULE 13. Essential tremor - ICD9: 333.1, ICD10: G25.0 - stable no changes. 14. Fibromyalgia - ICD9: 729.1, ICD10: M79.7 - cont flexeril. - CONSULT TO PAIN MGT 15. HUBER (obstructive sleep apnea) - ICD9: 327.23, ICD10: G47.33 - management per sleep med. 16. Primary insomnia - ICD9: 307.42, ICD10: F51.01 - will see if the increase of prozac will help. 17. Vitamin D deficiency - ICD9: 268.9, ICD10: E55.9 Check - VITAMIN D 25 HYDROXY 18. Urge incontinence - ICD9: 788.31, ICD10: N39.41 - will monitor. 19. Chronic pain syndrome - ICD9: 338.4, ICD10: G89.4 - CONSULT TO PAIN MGT 20. Gastroesophageal reflux disease without esophagitis - ICD9: 530.81, ICD10: K21.9 - Continue treatment with tums as needed. 21. Advance directive discussed with patient - ICD9: V65.49, ICD10: Z71.89 - up to date. 22. Elevated hemoglobin A1c - ICD9: 790.29, ICD10: R73.09 Check - HGB A1C 23. Rheumatoid arthritis, involving unspecified site, unspecified whether rheumatoid factor present (HCC) - ICD9: 714.0, ICD10: M06.9 - management per Rheum Check - ANTI SSB BLD - ANTI SSA BLD 24. Heat intolerance - ICD9: 780.99, ICD10: R68.89 Check - TSH BLD - T4 FREE/FREE THYROX 25. Polyuria - ICD9: 788.42, ICD10: R35.89 - check UA 26. Dry mouth - ICD9: 527.7, ICD10: R68.2 Check - ANTI SSB BLD - ANTI SSA BLD 27. Need for vaccination - ICD9: V05.9, ICD10: Z23 - PNEUMOCOCCAL VACCINE (PREVNAR 20): given 28. Palpitations - ICD9: 785.1, ICD10: R00.2 Check - TSH BLD - T4 FREE/FREE THYROX - will get halter monitor. 29. Dizziness - ICD9: 780.4, ICD10: R42 - US CAROTID ARTERIES [facility] 30. Dependence on nocturnal oxygen therapy - ICD9: V46.2, ICD10: Z99.81 - seeing Pulm. Requested Prescriptions Signed Prescriptions Disp Refills atorvastatin (LIPITOR) 40 mg tablet 90 tablet 1 Sig: Take 1 tablet by mouth daily at bedtime. For cholesterol. FLUoxetine (PROZAC) 40 mg capsule 180 capsule 1 Sig: Take 1 capsule by mouth twice daily. losartan (COZAAR) 100 mg tablet 90 tablet 1 Sig: Take 1 tablet by mouth once daily. traZODone (DESYREL) 100 mg tablet 180 tablet 1 Sig: Take 1 tablet by mouth daily at bedtime. F/u 4 weeks for HTN, depression and insomnia. F/u 6 months routine. I spent a total of 55 minutes on the date of the service which included preparing to see the patient, [id number] patient care, completing clinical documentation, performing a medically appropriate examination, counseling and educating the patient/family/caregiver and ordering medications, tests, or procedures. Ganga Sheppard MD documented in this encounter [facility] 04-04-2023 Note HNO ID: [id number] Author: Chris Thomas MD Service: ? Author Type: Physician Type: Progress Notes Filed: 04/04/2023 4:45 PM Note Text: This note was created using NoteWriter. Subjective Kristina Macario is a 62 year old female. Not any better plaquenil started no better Back pain main issue Right hip also issue Knee pain bilateral Left shoulder kill her Right shoulder replaced Right arm is numb Review of Systems Objective Blood Pressure 160/99 Pulse 101 Temperature 36.8 ?C (98.2 ?F) Height 175.3 cm (5' 9 ) Weight 88.5 kg (195 lb) Last Menstrual Period 08/04/2008 Body Mass Index 28.80 kg/m? Physical Exam Vitals reviewed. Constitutional: General: She is not in acute distress. Appearance: She is not ill-appearing or toxic-appearing. Cardiovascular: Rate and Rhythm: Normal rate and regular rhythm. Heart sounds: Normal heart sounds. No murmur heard. No friction rub. No gallop. Pulmonary: Effort: No respiratory distress. Breath sounds: Normal breath sounds. No stridor. No wheezing or rhonchi. Abdominal: General: There is no distension. Palpations: Abdomen is soft. There is no mass. Tenderness: There is no abdominal tenderness. Hernia: No hernia is present. Musculoskeletal: Right shoulder: Normal. Left shoulder: Normal. Right elbow: Normal. Left elbow: Normal. Right wrist: Normal. Left wrist: Normal. Right hand: Normal. Left hand: Normal. Cervical back: No rigidity or tenderness. Thoracic back: Normal. Lumbar back: Normal. Right hip: Normal. Left hip: Normal. Right knee: Normal. Left knee: Normal. Right lower leg: No edema. Left lower leg: No edema. Right ankle: Normal. Left ankle: Normal. Right foot: Normal. Left foot: Normal. Comments: Decreased range of motion of CS and LS Left shoulder severe Decreased range of motion Right shoulder moderate Decreased range of motion replacement Right hip not bearing wt Decreased range of motion Left hip Decreased range of motion Knee crepitus Tender lipomatous texture calf Dip pip enlargement Wrist tender bilateral Lymphadenopathy: Cervical: No cervical adenopathy. Skin: Findings: No rash. Assessment and Plan First visit 02/07/23 Wants to get rid of pain Not seen rheum before 02/07/23 RA ( 03/25 wrist only involved ) Fibromyalgia Dr. Baez 2013 visit (2000 diagnosis ) 2020 Hep C neg 2013 Hep B S Ab ) 2020 thryoglobulin ab neg 02/23 CCP 81 unit, R 29 SANIYA neg esr 17 crp normal uric 7.1 02/23 IgA, IgG Transglutaminase Ab: neg, IgA (mg/dl): 235 (( 02/23 dry mouth med related 2022 note, no saliva gland swelling) 02/23 exam consistent with Fibromyalgia + possible Dercum 02/07/23 ((02/23 started with pain 1994, blamed it on sport, quit playing sports, volley ball and soft ball played till )) ( Partial improvement with prednisone when used for COVID partial improvement ) TT Sulfa allergic kid 04/04/23 plaquenil 200 mg bid 02/09/23 MTX 10 mg ( PA to see in 5 week I will see 2 months after that) slow titration to see response. 04/04/23 get xr to see extend of damage. 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 There is mild right C3-4, C4-5 and C5-6 neural foramina encroachment. There are severe hypertrophic changes in the left C4-5 and C5-6 facet joint causing severe neural foraminal encroachment Mid back pain ((02/23 2019 started ) CT 2022 noted features of DISH present 02/07/23 Chronic low back pain ((02/23 :: onset 2012, localized, radiates to thigh ) 2022 xr LS : There is mild to moderate degenerative disc disease and significant arthritic changes through the facet joints. 2014 MRI LS : Mild lumbar degenerative disease without central canal or neural foraminal stenosis. OA Shoulder bilateral Right shoulder replacement 06/2402/07/23 ( doing better ) ( was work related inj 2004 ) (02/23 left shoulder pain 2018, never dislocated, Pain in the joint while patient is sleeping., severe Decreased range of motion TT Ortho 02/07/23 Right elbow pain (02/23 since 06/24 shoulder replacement ) ( 02/23 no left elbow pain ) Wrist ( 02/23 no pain, but noted weakness 2019, numbness bilateral numbness, EMG done, numbness intermittent. ) Hand pain ( 02/23 minimal, no Raynaud's Phenomenon ) 02/07/23 ( grasp is issue ) OA Hip ( right hip ) ((02/23 right hip pain 2020 ) OA left hip replacement done 05/2016 xr LS : Right hip has moderate to severe osteoarthritis issues. T 11/23 IR r (more content not included)... [facility] 04-04-2023 History of Present illness Narrative This note was created using NoteWriter. Subjective Kristina Macario is a 62 year old female. Not any better plaquenil started no better Back pain main issue Right hip also issue Knee pain bilateral Left shoulder kill her Right shoulder replaced Right arm is numb Review of Systems Objective Blood Pressure 160/99 Pulse 101 Temperature 36.8 C (98.2 F) Height 175.3 cm (5' 9 ) Weight 88.5 kg (195 lb) Last Menstrual Period 08/04/2008 Body Mass Index 28.80 kg/m Physical Exam Vitals reviewed. Constitutional: General: She is not in acute distress. Appearance: She is not ill-appearing or toxic-appearing. Cardiovascular: Rate and Rhythm: Normal rate and regular rhythm. Heart sounds: Normal heart sounds. No murmur heard. No friction rub. No gallop. Pulmonary: Effort: No respiratory distress. Breath sounds: Normal breath sounds. No stridor. No wheezing or rhonchi. Abdominal: General: There is no distension. Palpations: Abdomen is soft. There is no mass. Tenderness: There is no abdominal tenderness. Hernia: No hernia is present. Musculoskeletal: Right shoulder: Normal. Left shoulder: Normal. Right elbow: Normal. Left elbow: Normal. Right wrist: Normal. Left wrist: Normal. Right hand: Normal. Left hand: Normal. Cervical back: No rigidity or tenderness. Thoracic back: Normal. Lumbar back: Normal. Right hip: Normal. Left hip: Normal. Right knee: Normal. Left knee: Normal. Right lower leg: No edema. Left lower leg: No edema. Right ankle: Normal. Left ankle: Normal. Right foot: Normal. Left foot: Normal. Comments: Decreased range of motion of CS and LS Left shoulder severe Decreased range of motion Right shoulder moderate Decreased range of motion replacement Right hip not bearing wt Decreased range of motion Left hip Decreased range of motion Knee crepitus Tender lipomatous texture calf Dip pip enlargement Wrist tender bilateral Lymphadenopathy: Cervical: No cervical adenopathy. Skin: Findings: No rash. Assessment and Plan First visit 02/07/23 Wants to get rid of pain Not seen rheum before 02/07/23 RA ( 03/25 wrist only involved ) Fibromyalgia Dr. Baez 2012 visit (2000 diagnosis ) 2020 Hep C neg 2013 Hep B S Ab ) 2020 thryoglobulin ab neg 02/23 CCP 81 unit, R 29 SANIYA neg esr 17 crp normal uric 7.1 02/23 IgA, IgG Transglutaminase Ab: neg, IgA (mg/dl): 235 (( 02/23 dry mouth med related 2023 note, no saliva gland swelling) 02/23 exam consistent with Fibromyalgia + possible Dercum 02/07/23 ((02/23 started with pain 1994, blamed it on sport, quit playing sports, volley ball and soft ball played till )) ( Partial improvement with prednisone when used for COVID partial improvement ) TT Sulfa allergic kid 04/04/23 plaquenil 200 mg bid 02/09/23 MTX 10 mg ( PA to see in 5 week I will see 2 months after that) slow titration to see response. 04/04/23 get xr to see extend of damage. 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 There is mild right C3-4, C4-5 and C5-6 neural foramina encroachment. There are severe hypertrophic changes in the left C4-5 and C5-6 facet joint causing severe neural foraminal encroachment Mid back pain ((02/23 2019 started ) CT 2022 noted features of DISH present 02/07/23 Chronic low back pain ((02/23 :: onset 2012, localized, radiates to thigh ) 2022 xr LS : There is mild to moderate degenerative disc disease and significant arthritic changes through the facet joints. 2014 MRI LS : Mild lumbar degenerative disease without central canal or neural foraminal stenosis. OA Shoulder bilateral Right shoulder replacement 06/2402/07/23 ( doing better ) ( was work related inj 2004 ) (02/23 left shoulder pain 2018, never dislocated, Pain in the joint while patient is sleeping., severe Decreased range of motion TT Ortho 02/07/23 Right elbow pain (02/23 since 06/24 shoulder replacement ) ( 02/23 no left elbow pain ) Wrist ( 02/23 no pain, but noted weakness 2019, numbness bilateral numbness, EMG done, numbness intermittent. ) Hand pain ( 02/23 minimal, no Raynaud's Phenomenon ) 02/07/23 ( grasp is issue ) OA Hip ( right hip ) ((02/23 right hip pain 2020 ) OA left hip replacement done 05/2016 xr LS : Right hip has moderate to severe osteoarthritis issues. T 11/23 IR right hip inj done. (Worked good one week ) 02/07/23 deconditioning, need right hip replacement CAMMIE 02/07/23 OA knee bilateral ((02/23 bilateral knee pain 1979, recent giving away, no locking ) 2021 xr : Right knee: Tricompartmental osteophytes with moderate lateral compartment joint space narrowing. Genu valgus. Mild lateral patellar tilt. 2021 xr : Left knee: Tricompartmental osteophytes with no significant joint space narrowing. Genu valgus. Mild lateral patellar tilt. 2021 right knee MRI : Large field of view images of the joints demonstrate anterior horn lateral meniscus tear with extrusion and associated chondral injury, incompletely assessed. TT Ortho steroid inj last few week 02/07/23 No visco supplementation done 02/07/23 02/07/23 use compression stocking thigh high should help knee pain, component of Dermcum Feet pain (02/23 mild, never gout, no ankle ) 02/07/23 HTN no Diabetes Mellitus II No [place] no stroke 02/07/23 Thoracic aortic aneurysm, moderate AR 2021 CT chest : is ectatic ascending aorta measuring 4.5 cm in diameter. HUBER ( CPAP getting reset ) 02/07/23 Post COVID dyspnea (05/24 COVID ) Pulm nodule 2021 CT chest : stable 6 mm solid nodule abutting the pleural surface in the right lung, series 6 image 80. A calcified granuloma is again noted in the right upper lung. TT Seeing pulm Hydrocephalus Migraines 2021 MRI : Stable ventriculomegaly. Patent third ventriculostomy. 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 ( Last neurology [facility] ) GERD Chronic diarrhea Diverticulosis partial colon resectoin 2017 2021 EGD : Gastric oxyntic and antral mucosa with mild chronic inactive gastritis. Jejunum biopsy normal esophageal bz normal 2021 Colonoscopy normal Ambulation issue Cane use : off and on 09/2022 started 02/23 trouble walking 09/2022, trouble sitting and trouble getting up. 03/25 does not wt bear on the right leg, diff getting off and on exam table needing assistance. 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 04/04/23 checks BP at home 130-140 at home Risk and benefit of methotrexate discussed in detail with patient. Use the pill empty stomach. Do not use bactrim while on this pill. Stressed the total need for avoidance of alcohol. Possible side effects include but are not limited to rashes, GI distress, alopecia, infections, hematologic and hepatic toxicity, painful mucosal ulcerations. Photosensitivity can be there. Flu like symptoms, feeling tired on the day of ingestion. Stressed the need for close laboratory monitoring to access for hematologic and hepatic side effects. Blood test to be done initially every 4 weeks and then if doing good to be prolonged to every 8-12 weeks and not beyond that. ( [employer] recommends monitoring CBC, Creatinine and LFT at least every three months) . documented in this encounter [facility] 03-27-2023 Note HNO ID: [id number] Author: Joann Penny LPN Service: ? Author Type: ? Type: Progress Notes Filed: 03/27/2023 12:50 PM Note Text: Patient presents for EKG per Dr Thomas. Denies any problems at this time. Tolerated procedure well. Joann Penny LPN [facility] 03-26-2023 Note [facility] 03-26-2023 History of Present illness Narrative Patient: Kristina Macario PCP: Ganga Sheppard MD CC: follow up HPI: Kristina Macario 62 year old female former minimal smoker with PMH significant for HUBER not on CPAP since recall of her Katelyn machine, HTN, hydrocephalus, fibromyalgia, anxiety, HLD, COVID-pneumonia in May 2021. COVID treated with dexamethasone only and high flow nasal cannula oxygen, discharged on 5 L, currently using 3 L oxygen at night. Chest CT showed resolution of her infiltrates but has a persistent 6 mm subpleural nodule in the right upper lobe which has been stable and is unchanged on most current CT chest 03/20/2023. Today, she reports that SOB seems to be improving some. Continues with fatigue/tiredness. Reports morning cough productive of clear to yellow/green sputum. No hemoptysis. Has received new CPAP machine but has not started using it. States she needs help setting it up. Was last seen by sleep medicine on March 2022. No recent upper respiratory infections or hospitalizations for lung issues. DME: [employer] PAST MEDICAL HISTORY Diagnosis Date Abnormal mammogram Advance directive discussed with patient 04/06/2022 Discussed 04/06/2022 Arthritis of knee, left 01/31/2013 Arthritis of left hip 01/19/2016 Ascending aorta dilatation (HCC) 07/04/2017 04/19/16: 4.2 cm 06/11/17: 4.4 cm 06/24/18 4.4 cm Cervical high risk human papillomavirus (HPV) DNA test positive 05/27/2008 Chronic anxiety 06/01/2021 Chronic diarrhea 12/09/2018 Chronic hypoxemic respiratory failure (HCC) 09/06/2021 resolved Chronic pain syndrome 11/29/[address] Bustillos as of 11/27/2022 Chronic prescription benzodiazepine use 06/01/2021 DDD (degenerative disc disease), lumbar 07/24/[address] Jose Raul Camarena Essential tremor 04/06/2022 Ex-smoker 04/06/2022 Excessive or frequent menstruation Heavy periods Fibromyalgia 02/26/2014 Hemorrhage of gastrointestinal tract, unspecified History of COVID-19 06/13/202105/2021 Hydrocephalus, adult (HCC) 02/09/2003 Hypertension, essential 01/22/2019 Living will on file 04/06/2022 DPA: Victoriano () Lung nodule 01/24/2022 Seeing pulm Migraines 07/26/2021 Used to see neuro and was getting Botox Mild dysplasia of cervix 2006 Mixed hyperlipidemia 01/20/2016 Nonrheumatic mitral valve disorder, unspecified 04/06/2016 Obstructive sleep apnea 10/13/2016 DME - [facility] Plantar fasciitis 2018 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 Babs Guerra Postcoital bleeding Primary insomnia 06/13/2021 Primary osteoarthritis of both shoulders 04/06/2022 Seeing [facility] Rectocele 04/19/2007 Renal cyst 07/13/2016 Right knee pain Situational mixed anxiety and depressive disorder 11/12/2017 Thoracic aortic aneurysm without rupture ([facility]) 2018 Urge incontinence 04/19/2007 Vitamin D deficiency 07/23/2012 Well adult exam 06/13/2021 Last done: 06/13/2021 Allergies: Dilaudid [Hydromorp* Mental Status Change, Other: See Comments Comment:Hallucinations Sulfa (Sulfonamide * Rash Ultram [Tramadol Hc* GI Upset Comment:Pt. tried again on 02-13 and became very ill with GI issues Oxycontin [Oxycodon* Swelling Relafen [Nabumetone] GI Upset Sertraline Other: See Comments Comment:Tremors right upper extremity. meloxicam (MOBIC) 15 mg tablet Take 1 tablet by mouth once daily. Take with food. hydrOXYchloroQUINE (PLAQUENIL) 200 mg tablet Take 1 tablet by mouth twice daily. FLUoxetine (PROZAC) 40 mg capsule Take 1 capsule by mouth once daily. cyclobenzaprine (FLEXERIL) 10 mg tablet Take 1 tablet by mouth three times daily as needed (for fibro pain). traZODone (DESYREL) 100 mg tablet Take 2 tablets by mouth daily at bedtime. hydrOXYzine HCl (ATARAX) 10 mg tablet Take 1 tablet by mouth three times daily as needed. atorvastatin (LIPITOR) 40 mg tablet Take 1 tablet by mouth daily at bedtime. For cholesterol. azelastine (ASTELIN, ASTEPRO) 0.1% nasal spray Use 2 Sprays in each nostril twice daily as needed. metoprolol succinate ER (TOPROL XL) 50 mg 24 hr tablet Take 2 tablets by mouth once daily. CPAP Lifetime supplies for AutoPAP 6-11 cm H20 including mask, heated tubing, humidity, filters. Fax 30 day download report to [phone] to assess residual ahi. fluticasone (FLONASE) 50 mcg/actuation nasal spray Use 2 Sprays in each nostril once daily. Rinse mouth after use. vit C-Zn gluc-herbal no.325 (ELDERBERRY ZINC VIT C) 90-15 mg lozg Use 1 Lozenge as instructed twice daily. losartan (COZAAR) 50 mg tablet 50 mg once daily. calcium carbonate (CALTRATE 600 ORAL) Take 1 tablet by mouth once daily. multivitamin tablet Take 1 tablet by mouth once daily. BIOTIN ORAL Take 1 tablet by mouth once daily. Cholecalciferol, Vitamin D3, 2,000 unit cap Take 10,000 Units by mouth once daily. Social History Tobacco Use Smoking status: Former Packs/day: 0.10 Years: 2.00 Total pack years: 0.20 Types: Cigarettes Quit date: 04/26/2010 Years since quittin.9 Smokeless tobacco: Never Vaping Use Vaping Use: Never used Substance Use Topics Alcohol use: Yes Comment: 1-2 times a week at most: wine Drug use: No Family History Problem Relation Age of Onset Heart Mother skin cancer on nose Breast Cancer Mother Heart Father Hypertension Father Heart Maternal Grandmother Thyroid Sister Thyroid Paternal Aunt PAST SURGICAL HISTORY Procedure Laterality Date APPENDECTOMY 1987 COLONOSCOPY 08/19/2013 COLONOSCOPY FLX DX W/COLLJ SPEC WHEN PFRMD 09/19/2019 Colonoscopy COLONOSCOPY SCREENING 05/05/2022 repeat in 5 years COLONOSCOPY W/BIOPSY SINGLE/MULTIPLE 03/15/2009 minimal colitis-repeat in COLPOSCOPY CERVIX UPPER/ADJACENT VAGINA Colposcopy DILATION & CURETTAGE DX&/THER NONOBSTETRIC 2002 Dilation & curettage EGD 05/05/2022 mild gastritis ESOPHAGOGASTRODUODENOSCOPY TRANSORAL DIAGNOSTIC 09/19/2019 EGD LIG/TRNSXJ FLP TUBE ABDL/VAG APPR UNI/BI 1989&1991 Tubal ligation PAST SURGICAL HISTORY OF 2000 BRAIN SURG/HYDROCEPHALIS - PAST SURGICAL HISTORY OF 2000 REPAIR TENNIS ELBOW PAST SURGICAL HISTORY OF 09/07/06, 05/10,11/08 repair rotator cuff/tendon rt. shoulder PAST SURGICAL HISTORY OF 10/2017 ex lap, ALFRED PROCEDURE , COLOSTOMY PAST SURGICAL HISTORY OF Right 06/2022 Reverse shoulder surgery PICC LINE INSERT/CONSULT 10/26/2017 REPAIR FIRST ABDOMINAL WALL HERNIA 04/05/2020 Hernia repair, incisional STEREOTACTIC LOCALIZATION BREAST BIOPSY 06/10/2015 right TUBAL LIGATION HX 1989 and 1991 VAGINAL HYSTERECTOMY UTERUS 250 GM/< 09/04/2008 Hysterectomy, vaginal/TVT I reviewed the past medical history, family history, social history and surgical history with changes noted above and updated in EMR. IMMUNIZATIONS Prevnar - xx Pneumovax 23 - xx Influenza - xx COVID-19 - xx ROS: CONSTITUTIONAL: No fevers, chills, nightsweats, unintended weight loss HEENT: Positive nasal congestion/sinus symptoms, postnasal drip CARDIOVASCULAR: No chest pain, orthopnea, PND, edema. Palpitations with activity since Covid. PULM: See HPI GI: No dysphagia/odynophagia. Heartburn, taking OTC Tums. NEURO: No new balance problems, peripheral weakness/paresthesias or numbness of concern. Tremors MUSC-SKEL: Joint pain, back pain PSY: No concerns regarding depression, anxiety INTEGUMENTARY: No new skin changes or rashes PHYSICAL EXAMINATION: BP (P) 122/78 Pulse (P) 78 Resp (P) 17 Wt 87.5 kg (193 lb) LMP 08/04/2008 SpO2 (P) 100% BMI 28.50 kg/m Gen: No acute distress. Cooperative with examination. HEENT: Normocephalic. Sclera, conjunctiva clear. Oral hygeine and dentition good. Resp: No stridor, accessory respiratory muscle use, supra-sternal or intercostal retractions. No wheezes, crackles. CV: Regular rythm. Heart tones normal. Radial pulses normal. Abd: Non distended. MSK: No kyphoscoliosis. Ext: Warm and well perfused. No clubbing, cyanosis, edema. Skin: No rash, ecchymoses. Neuro: Mental status normal. Affect normal. No tremor. DATA: CT chest, 03/20/2023 IMPRESSION: Stable right lung nodule. No new nodules seen. Ectatic ascending aorta. Comparison: CT chest on 03/13/2022 RESULT: Limitations: None. Lines, tubes, and devices: None. Lung parenchyma and airways: The central airways are patent. There is a stable 6 mm solid nodule in the right lung abutting the pleural surface, series 7 image 73. Stable focal calcification in the right upper lobe. No new nodules identified. There is dependent atelectasis in the bilateral lower lobes. The bilateral lungs show no consolidations or mass lesions. Pleural space: No pleural effusion. No pleural thickening. Lower neck, lymph nodes, and mediastinum: The imaged thyroid gland is normal. No lymphadenopathy in the supraclavicular, axillary, mediastinal, or hilar regions. Heart, pericardium, and thoracic vessels: Ectatic ascending aorta is again demonstrated. The thoracic aorta and main pulmonary artery have been stable. The cardiac chambers are normal in size. No coronary artery atherosclerotic calcifications are noted, although the study is not optimized for coronary assessment. No pericardial effusion or thickening. Bones and soft tissues: Status post right shoulder arthroplasty. The spine shows similar degenerative changes. No destructive bone lesion. Chest wall soft tissue is unremarkable. Upper abdomen: Limited study through the upper abdomen demonstrates a partially visualized right renal cyst/cystic lesion. ASSESSMENT/PLAN: 1. Post-COVID chronic dyspnea - ICD9: 786.09, 139.8, ICD10: R06.09, U09.9 (primary diagnosis) Symptomatically improving. Will check overnight oximetry on CPAP without supplemental oxygen once she is set up. Will help her schedule a follow up with sleep medicine. Last OV 03/2022. 2. Lung nodules - ICD9: 793.19, ICD10: R91.8 Stable on most recent CT chest 03/20/2023. Initially noted on CT chest September 2021. Next CT chest September 2023. If stable, 2 years of stability demonstrated and no further imaging is warranted. - CT CHEST WO IVCON 3. Dependence on nocturnal oxygen therapy - ICD9: V46.2, ICD10: Z99.81 See #1. 4. HUBER on CPAP - ICD9: 327.23, V46.8, ICD10: G47.33 Follow up with sleep medicine. Portions of this documentation were copied and pasted from previous office visit notes in order to provide a cohesive continuity of the history. The note has been reviewed and edited and updated as necessary. Tessy Ackerman PA-C documented in this encounter [facility] 03-20-2023 Note [facility] 03-20-2023 History of Present illness Narrative Radiology Service Progress Note PATIENT NAME: Kristina Macario DATE OF SERVICE: March 20, 2023 TIME: 4:10 PM PATIENT IDENTITY VERIFICATION COMPLETED USING TWO (2) IDENTIFIERS: Name and Date of confirmed by patient verbally. FALL SCREENING: Has the patient had 2 falls in the last year or 1 fall with injury or currently using an Ambulatory Assistive Device (Walker, Cane, Wheelchair, Crutches, etc.)? No PATIENT GENDER DATA: Female. status: : No status: NO. PATIENT RELEVANT IMPLANT DATA REVIEWED: Yes RADIOLOGY DEPARTMENT: CT; Exam(s) Completed: Chest PERIPHERAL IV DATA: Not applicable SIGNED BY: RT Marlys(R) March 20, 2023 4:10 PM documented in this encounter [facility] 03-08-2023 Miscellaneous Notes The following approved medication requests have been transmitted electronically. Requested Prescriptions Signed Prescriptions Disp Refills meloxicam (MOBIC) 15 mg tablet 90 tablet 1 Sig: Take 1 tablet by mouth once daily. Take with food. Authorizing Provider: GANGA SHEPPARD MD Patient last visit with PCP 11/15/22 Follow up appointment scheduled 04/24/23 Babs Napier Ma documented in this encounter [facility] 02-07-2023 Note HNO ID: [id number] Author: Chris Thomas MD Service: ? Author Type: Physician Type: Progress Notes Filed: 02/10/2023 5:40 PM Note Text: This note was created using [employer]. Subjective Kristina Macario is a 62 year old female. PCP note seen Chronic pain issue not controlled here for same Jaw pain Spine hurt All joint hurt Morning stiffness is lasting 4 hours plus, vague possibly day long, not recovering from stiffness. Patient does not have a history of dry eyes, dry mouth, dryness in the mucosal membranes. There is no history of salivary gland enlargement. No history of any recurrent thrombotic events. No history of Raynaud or Livedo reticularis. No history of any recurrent miscarriages is there. Patient has no history of pleuritis, pericarditis, seizures, psychosis, malar or discoid rashes. Has no history of hematologic issues, renal issues ( proteinuria or hematuria) . No history of photosensitivity is there. Patient with no new onset headaches, jaw claudication, abnormal tongue sensation, scalp tenderness, or episodes of diplopia or visual loss. Is not running any low grade fevers etc. Wants to be pain free and cut back on med Review of Systems Objective Blood Pressure 155/89 Pulse 63 Temperature 36.8 ?C (98.3 ?F) Height 175.3 cm (5' 9 ) Weight 86.2 kg (190 lb) Last Menstrual Period 08/04/2008 Body Mass Index 28.06 kg/m? Physical Exam Constitutional: General: She is not in acute distress. Appearance: Normal appearance. She is not ill-appearing or toxic-appearing. HENT: Nose: No congestion or rhinorrhea. Mouth/Throat: Pharynx: No oropharyngeal exudate or posterior oropharyngeal erythema. Eyes: General: Right eye: No discharge. Cardiovascular: Rate and Rhythm: Normal rate and regular rhythm. Heart sounds: Normal heart sounds. No murmur heard. No friction rub. No gallop. Pulmonary: Effort: No respiratory distress. Breath sounds: Normal breath sounds. No stridor. No wheezing or rhonchi. Abdominal: General: There is no distension. Palpations: Abdomen is soft. There is no mass. Tenderness: There is no abdominal tenderness. Hernia: No hernia is present. Musculoskeletal: Right shoulder: Decreased range of motion. Left shoulder: Decreased range of motion. Cervical back: No rigidity or tenderness. Thoracic back: Decreased range of motion. Lumbar back: Decreased range of motion. Right lower leg: No edema. Left lower leg: No edema. Comments: Decreased range of motion of CS and LS Left shoulder severe Decreased range of motion Right shoulder moderate Decreased range of motion replacement Right hip not bearing wt Left hip Decreased range of motion Knee crepitus Tender lipomatous texture calf Dip pip enlargement Wrist tender Diffuse myofascial tenderness is present. Tender point exam is positive bilaterally in the suboccipital, low cervical, Trapezius, supraspinatus, gluteal, greater trochanteric, second rib, lateral epicondylar, knee medial fat pad areas. Lymphadenopathy: Cervical: No cervical adenopathy. Skin: Findings: No rash. Neurological: Mental Status: She is alert. Assessment and Plan First visit 02/07/23 Wants to get rid of pain Not seen rheum before 02/07/[address] Baez 2013 visit (2000 diagnosis ) Inflammatory polyarthropathy ((02/23 started with pain 1994, blamed it on sport, quit playing sports, volley ball and soft ball played till )) 2020 Hep C neg 2013 Hep B S Ab ) 2020 thryoglobulin ab neg 02/23 CCP 81 unit, R 29 SANIYA neg esr 17 crp normal uric 7.1 02/23 IgA, IgG Transglutaminase Ab: neg, IgA (mg/dl): 235 (( 02/23 dry mouth med related 2022 note, no saliva gland swelling) 02/23 exam consistent with Fibromyalgia + possible Dercum 02/07/23 ( Partial improvement with prednisone when used for COVID partial improvement ) TT plaquenil 200 mg bid 02/09/23 02/09/23 reevaluate again Drug and disease monitoring 01/23 vit B12 303 10/26 cbc dif tsh cmp hgAic 5.8 high 04/25 vit d 77 TMJ ( 02/23 minor issue, does grind ) Chronic neck pain (02/23 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 There is mild right C3-4, C4-5 and C5-6 neural foramina encroachment. There are severe hypertrophic changes in the left C4-5 and C5-6 facet joint causing severe neural foraminal encroachment Mid back pain ((02/23 2019 started ) CT 2022 noted features of DISH present 02/07/23 Chronic low back pain ((02/23 :: onset 2012, localized, radiates to thigh ) 2022 xr LS : There is mild to moderate degenerative disc disease and significant arthritic changes through the facet joints. (more content not included)... [facility] 02-07-2023 History of Present illness Narrative This note was created using [employer]. Subjective Kristina Macario is a 62 year old female. PCP note seen Chronic pain issue not controlled here for same Jaw pain Spine hurt All joint hurt Morning stiffness is lasting 4 hours plus, vague possibly day long, not recovering from stiffness. Patient does not have a history of dry eyes, dry mouth, dryness in the mucosal membranes. There is no history of salivary gland enlargement. No history of any recurrent thrombotic events. No history of Raynaud or Livedo reticularis. No history of any recurrent miscarriages is there. Patient has no history of pleuritis, pericarditis, seizures, psychosis, malar or discoid rashes. Has no history of hematologic issues, renal issues ( proteinuria or hematuria) . No history of photosensitivity is there. Patient with no new onset headaches, jaw claudication, abnormal tongue sensation, scalp tenderness, or episodes of diplopia or visual loss. Is not running any low grade fevers etc. Wants to be pain free and cut back on med Review of Systems Objective Last Menstrual Period 08/04/2008 Physical Exam Constitutional: General: She is not in acute distress. Appearance: Normal appearance. She is not ill-appearing or toxic-appearing. HENT: Nose: No congestion or rhinorrhea. Mouth/Throat: Pharynx: No oropharyngeal exudate or posterior oropharyngeal erythema. Eyes: General: Right eye: No discharge. Cardiovascular: Rate and Rhythm: Normal rate and regular rhythm. Heart sounds: Normal heart sounds. No murmur heard. No friction rub. No gallop. Pulmonary: Effort: No respiratory distress. Breath sounds: Normal breath sounds. No stridor. No wheezing or rhonchi. Abdominal: General: There is no distension. Palpations: Abdomen is soft. There is no mass. Tenderness: There is no abdominal tenderness. Hernia: No hernia is present. Musculoskeletal: Right shoulder: Decreased range of motion. Left shoulder: Decreased range of motion. Cervical back: No rigidity or tenderness. Thoracic back: Decreased range of motion. Lumbar back: Decreased range of motion. Right lower leg: No edema. Left lower leg: No edema. Comments: Decreased range of motion of CS and LS Left shoulder severe Decreased range of motion Right shoulder moderate Decreased range of motion replacement Right hip not bearing wt Left hip Decreased range of motion Knee crepitus Tender lipomatous texture calf Dip pip enlargement Wrist tender Diffuse myofascial tenderness is present. Tender point exam is positive bilaterally in the suboccipital, low cervical, Trapezius, supraspinatus, gluteal, greater trochanteric, second rib, lateral epicondylar, knee medial fat pad areas. Lymphadenopathy: Cervical: No cervical adenopathy. Skin: Findings: No rash. Neurological: Mental Status: She is alert. Assessment and Plan First visit 02/07/23 Wants to get rid of pain Not seen rheum before 02/07/[address] Baez 2013 visit (2000 diagnosis ) ((02/23 started with pain 1994, blamed it on sport, quit playing sports, volley ball and soft ball played till )) 2020 Hep C neg 2013 Hep B S Ab _ 2020 thryoglobulin ab neg (( 02/23 dry mouth med related 2022 note, no saliva gland swelling) 02/23 exam consistent with Fibromyalgia + possible Dercum 02/07/23 ( Partial improvement with prednisone when used for COVID partial improvement ) Drug and disease monitoring 01/23 vit B12 303 10/26 cbc dif tsh cmp hgAic 5.8 high 04/25 vit d 77 TMJ ( 02/23 minor issue, does grind ) Chronic neck pain (02/23 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 There is mild right C3-4, C4-5 and C5-6 neural foramina encroachment. There are severe hypertrophic changes in the left C4-5 and C5-6 facet joint causing severe neural foraminal encroachment Mid back pain ((02/23 2019 started ) CT 2022 noted features of DISH present 02/07/23 Chronic low back pain ((02/23 :: onset 2012, localized, radiates to thigh ) 2022 xr LS : There is mild to moderate degenerative disc disease and significant arthritic changes through the facet joints. 2014 MRI LS : Mild lumbar degenerative disease without central canal or neural foraminal stenosis. OA Shoulder bilateral Right shoulder replacement 06/2402/07/23 ( doing better ) ( was work related inj 2004 ) (02/23 left shoulder pain 2018, never dislocated, Pain in the joint while patient is sleeping., severe Decreased range of motion TT Ortho 02/07/23 Right elbow pain (02/23 since 06/24 shoulder replacement ) ( 02/23 no left elbow pain ) Wrist ( 02/23 no pain, but noted weakness 2019, numbness bilateral numbness, EMG done, numbness intermittent. ) Hand pain ( 02/23 minimal, no Raynaud's Phenomenon ) 02/07/23 ( grasp is issue ) OA Hip ( right hip ) ((02/23 right hip pain 2020 ) OA left hip replacement done 05/2016 xr LS : Right hip has moderate to severe osteoarthritis issues. T 11/23 IR right hip inj done. (Worked good one week ) 02/07/23 deconditioning, need right hip replacement ACMMIE 02/07/23 OA knee bilateral ((02/23 bilateral knee pain 1979, recent giving away, no locking ) 2021 xr : Right knee: Tricompartmental osteophytes with moderate lateral compartment joint space narrowing. Genu valgus. Mild lateral patellar tilt. 2021 xr : Left knee: Tricompartmental osteophytes with no significant joint space narrowing. Genu valgus. Mild lateral patellar tilt. 2021 right knee MRI : Large field of view images of the joints demonstrate anterior horn lateral meniscus tear with extrusion and associated chondral injury, incompletely assessed. TT Ortho steroid inj last few week 02/07/23 No visco supplementation done 02/07/23 02/07/23 use compression stocking thigh high should help knee pain, component of Dermcum Feet pain (02/23 mild, never gout, no ankle ) 02/07/23 HTN no Diabetes Mellitus II No [place] no stroke 02/07/23 Thoracic aortic aneurysm, moderate AR 2021 CT chest : is ectatic ascending aorta measuring 4.5 cm in diameter. HUBER ( CPAP getting reset ) 02/07/23 Post COVID dyspnea (05/24 COVID ) Pulm nodule 2021 CT chest : stable 6 mm solid nodule abutting the pleural surface in the right lung, series 6 image 80. A calcified granuloma is again noted in the right upper lung. TT Seeing pulm Hydrocephalus Migraines 2021 MRI : Stable ventriculomegaly. Patent third ventriculostomy. 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 ( Last neurology [facility] ) GERD Chronic diarrhea Diverticulosis partial colon resectoin 2017 2021 EGD : Gastric oxyntic and antral mucosa with mild chronic inactive gastritis. Jejunum biopsy normal esophageal bz normal 2021 Colonoscopy normal Ambulation issue Cane use : off and on 09/2022 trouble walking 09/2022, trouble sitting and trouble getting up. 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 During this patient visit I have spent approximately 45 minutes out of 60 in counseling regarding coordinating care and coordinating care. documented in this encounter [facility] 01-23-2023 Note [facility] 01-18-2023 Note [facility] 01-16-2023 Note [facility] 01-10-2023 Note HNO ID: [id number] Author: Asmita Mason LPN Service: ? Author Type: ? Type: Progress Notes Filed: 01/13/2023 2:28 PM Note Text: Scan on 01/09/2023 2:53 PM by External Provider, PASunniC: Consultation - Cardiology [facility] 01-09-2023 Note [facility] 01-09-2023 History of Present illness Narrative Episode Visit Count: 10 Therapist That Will Accept/Oversee The Plan Of Care: Barbra Philip Start of Care Date: 11/15/22 Onset Date: 08/17/22 Plan of Care Certification Date: 12/20/22 Next Certification Due Date: 01/24/23 REHABILITATION AND SPORTS THERAPY PHYSICAL THERAPY TREATMENT NOTE ASSESSMENT: Kristina Macario tolerated the session with fatigue. She demonstrated difficulty with R knee pain and required cues to fully extend the B knees and hips to neutral with static standing throughout visit. Reduced symptoms in the knee reported with this correction. The patient will continue to benefit from ongoing skilled physical therapy to progress toward set goals. PLAN FOR NEXT VISIT: BOSU ball step ups for quadriceps NMRE SUBJECTIVE: Patient Reason for Visit: Pt. reports I was doing good until I had to go down to my basement. Pt. keeps extra pantry items in the basement. She only did this 1 time this morning. Her back was not bad this morning until she did the basement stairs 1x. Pain: Pain Pain Level: 3 Pain Location: Low Back/Lumbar Spine - Right Description: Aching Pain Level 2: 7 Pain Location 2: Knee - Right Description 2: Aching Post Treatment Pain Post Treatment Pain Level: 5 Post Treatment Pain Location: Low Back/Lumbar Spine - Right, Knee - Right, Knee - Left Post Treatment Symptoms: 6/10 Knee OBJECTIVE MEASURES WITH LEVEL OF FUNCTION: TREATMENT: Therapeutic Exercise: 1: SciFit stpper level 3, 5 min 1:1 throughout, subjective taken 2: hip extension at // bars 2x15 each side (tactile, visual, and verbal cues to avoid lumbar substitution) 3: hip abd at // bars 2x15 each side (tactile, visual, and verbal cues to avoid lumbar substitution) 4: standing gastroc stretch at wall, 3x30 sec each side (verbal cues to step in closer to wall and avoid excessive weight bearing through the BUE) 5: *hook lying bridges 3x12, twice daily 6: supine 55 cm physioball HS curls 3x15, modified to 90 degrees of flexion due to complaints of increased R hip pain with hip flexion >90 7: hook lying TA activation 2x10 8: hook lying TA activation with BUE push down into 55 cm physioball 2x10 Skilled Intervention: Patient was educated in proper exercise technique and purpose for exercises. Reviewed and educated patient on additions/changes for home exercise program as above (*). Skilled judgment was provided in selection of appropriate interventions. Provided written instruction for home exercise program to facilitate proper performance and compliance. Correct performance of therapeutic exercises was facilitated with verbal, visual, and tactile cuing. Educated patient on rationale for performing exercises in regards to decreasing fatigue , increase ease of ADL, and ROM and function . Patient education as noted. Self-Jail Management: 1: *discussed static standing posture- discussed that excessive R knee flexion increases R calf tightness, and prolonged unilateral pelvic drop can result in unilateral hip weakness/contribute to increased low back pain. Pt. symptoms reduce when the R knee is extended to neutral with static standing. 2: *PT suggested pt. use a straight cane due to level of knee pain, pt. disagrees. Skilled Intervention: Skilled judgment in the selection of proper modification for activity of daily living/home management based on clinical presentation, deficits, and needs. Provided written instruction for activities of daily living techniques to facilitate proper performance and compliance. Reviewed patient specific diagnosis in relation to activities of daily living/home management. Activity progression based on professional judgement. Moderate verbal cues for maintaining neutral spine alignment. Reviewed and educated patient on additions/changes for home program as noted above with an (*). Provided written instruction for home program to facilitate proper performance and compliance. Correct performance of home program was facilitated with verbal, visual, and tactile cueing. Billing Therapeutic Exercise Treatment Minutes: 37 Self-Care/Home Management Treatment Minutes: 3 Total Treatment Time Minutes (timed/untimed): 40 Barbra Philip PT documented in this encounter [facility] 01-04-2023 Note [facility] 01-04-2023 History of Present illness Narrative Episode Visit Count: 9 Therapist That Will Accept/Oversee The Plan Of Care: Barbra Phliip Start of Care Date: 11/15/22 Onset Date: 08/17/22 Plan of Care Certification Date: 12/20/22 Next Certification Due Date: 01/24/23 REHABILITATION AND SPORTS THERAPY PHYSICAL THERAPY TREATMENT NOTE ASSESSMENT: Kristina Macario tolerated the session with increased symptoms. She demonstrated inconsistent symptom response to repeated lumbar flexion seated as compared to last visit. Last visit this exercise was dc due to reports of worsening low back and hip symptoms, today this reduced her symptoms. . The patient will continue to benefit from ongoing skilled physical therapy to progress toward set goals. PLAN FOR NEXT VISIT: emphasis on glute strengthening to reduce anterior R hip pain, continue core stabilization strengthening SUBJECTIVE: Patient Reason for Visit: Visit began 10 min early due to pt. early arrival. Pt. reports she was doing well until increased low back and hip pain this morning. She has not tried any stretches yet to reduce symptoms. Pain: Pain Pain Level: 8 Pain Location: Low Back/Lumbar Spine - Right Description: Aching Pain Level 2: 8 Pain Location 2: Hip - Right Post Treatment Pain Post Treatment Pain Level: 5 Post Treatment Pain Location: Low Back/Lumbar Spine - Right, Knee - Right, Knee - Left Post Treatment Symptoms: 6/10 R hip OBJECTIVE MEASURES WITH LEVEL OF FUNCTION: TREATMENT: Therapeutic Exercise: 1: lumbar flexion, seated reports reduced pain from 8 to 7/10 in the back and low hip 2: supine single KTC 3x30 sec each side 3: supine physioball 55 cm heel slides 2x15 (substantial time required to complete this, R anterior hip stretch felt with LE extension rolling the ball out, reduced symptoms when cued by PT to assist the hips into extension using the BUEs) 4: hook lying TA activation 2x10 5: R hip flexor stretch over edge of table, LLE hip and knee flexed, 3x30 sec 6: TEZ stretch RLE 3x30 sec 7: supine glute squeezes 2x10 8: R hip flexor stretch over edge of table, LLE hip and knee flexed, 3x30 sec (assisted R hip into extension, very limited tolerance with extension) Skilled Intervention: Patient was educated in proper exercise technique and purpose for exercises. Reviewed and educated patient on additions/changes for home exercise program as above (*). Skilled judgment was provided in selection of appropriate interventions. Correct performance of therapeutic exercises was facilitated with verbal, visual, and tactile cuing. Educated patient on rationale for performing exercises in regards to decreasing fatigue , increase ease of ADL, and ROM and function . Patient education as noted. Billing Therapeutic Exercise Treatment Minutes: 40 Total Treatment Time Minutes (timed/untimed): 40 Barbra Philip PT documented in this encounter [facility] 12-28-2022 Note [facility] 12-26-2022 Note [facility] 12-20-2022 Note [facility] 12-18-2022 Note [facility] 12-18-2022 History of Present illness Narrative Episode Visit Count: 5 Therapist That Will Accept/Oversee The Plan Of Care: Barbra Philip Start of Care Date: 11/15/22 Onset Date: 08/17/22 Plan of Care Certification Date: 11/15/22 Next Certification Due Date: 12/20/22 REHABILITATION AND SPORTS THERAPY PHYSICAL THERAPY TREATMENT NOTE ASSESSMENT: Kristina Macario tolerated the session with increased symptoms. She demonstrated improvements in activity tolerance B hip ER and was able to progress to using the GTB for resistance. The patient will continue to benefit from ongoing skilled physical therapy to progress toward set goals. Current Frequency: 2x/week PLAN FOR NEXT VISIT: PN SUBJECTIVE: Patient Reason for Visit: Pt. reports walking up hills outdoors on Sunday and this caused much increased low back and knee pain. She did not do her exercises yesterday due to pain and having the grandchildren. She presents with her cane today. Pain: Pain Pain Level: 7 Pain Location: Low Back/Lumbar Spine - Right Description: Aching Pain Level 2: 7 Pain Location 2: Knee - Left, Knee - Right Description 2: Aching Post Treatment Pain Post Treatment Pain Level: 0 Post Treatment Pain Location: Low Back/Lumbar Spine - Right, Knee - Right, Knee - Left Post Treatment Pain Description: Aching OBJECTIVE MEASURES WITH LEVEL OF FUNCTION: TREATMENT: Therapeutic Exercise: 1: SciFit stepper level 2, 1:1 throughout subjective taken, as well as education seat 13 (discussed importance of doing HEP to reduce symptoms as tolerated) 2: standing gastroc stretch 3x30 seconds 3: supine HS stretch 3x30 sec each side using strap 4: hooklying B hip ER 2x25 with GTB 5: hooklying B hip ER 1x25 6: *GTB issued Skilled Intervention: Patient was educated in proper exercise technique and purpose for exercises. Skilled judgment was provided in selection of appropriate interventions. Correct performance of therapeutic exercises was facilitated with verbal and visual cuing. Educated patient on rationale for performing exercises in regards to decreasing fatigue , increase ease of ADL, and ROM and function . Patient education as noted. Manual Therapy: Manual Traction: hook lying, caudal pull belt at hips x 10 min Skilled Intervention: Manual skills to improve joint mobility, ROM, and decrease pain. Utilized anatomy knowledge of the therapist, and assessment of patient's response to intervention. Self-Jail Management: 1: *discussed importance of doing HEP to reduce symptoms as tolerated Skilled Intervention: Skilled judgment in the selection of proper modification for activity of daily living/home management based on clinical presentation, deficits, and needs. Activity progression based on professional judgement. Reviewed and educated patient on additions/changes for home program as noted above with an (*). Correct performance of home program was facilitated with verbal and visual cueing. Billing Therapeutic Exercise Treatment Minutes: 25 Manual TherapyTreatment Minutes: 8 Self-Care/Home Management Treatment Minutes: 5 Total Treatment Time Minutes (timed/untimed): 38 Barbra Philip PT documented in this encounter [facility] 12-13-2022 Note [facility] 12-13-2022 History of Present illness Narrative Episode Visit Count: 4 Therapist That Will Accept/Oversee The Plan Of Care: Barbra Philip Start of Care Date: 11/15/22 Onset Date: 08/17/22 Plan of Care Certification Date: 11/15/22 Next Certification Due Date: 12/20/22 REHABILITATION AND SPORTS THERAPY PHYSICAL THERAPY TREATMENT NOTE ASSESSMENT: Kristina Macario tolerated the session with decreased activity tolerance due to R hip abduction weakness and fatigue. She demonstrated difficulty with R hip abduction and was unable to tolerate SL leg raises. Difficulty on the left side as well, but able to complete 2 sets of 12. Requires max tactile cues to avoid hip flexion with hip abduction strengthening exercises in side lying. The patient will continue to benefit from ongoing skilled physical therapy to progress toward set goals. PLAN FOR NEXT VISIT: Core and hip stabilization strengthening, consider progressing RLE hip ER to SL clamshells SUBJECTIVE: Patient Reason for Visit: Presents without cane. Reports her knee isn't too bad. HEP exercises are helpful. She must think about her walking pattern. Pain: Pain Pain Level: 3 Pain Location: Low Back/Lumbar Spine - Right Description: Aching Frequency: At rest Pain Level 2: ( it's not too bad. ) Pain Location 2: Knee - Left, Knee - Right Description 2: Aching Post Treatment Pain Post Treatment Pain Location: Low Back/Lumbar Spine - Right Post Treatment Pain Description: Aching OBJECTIVE MEASURES WITH LEVEL OF FUNCTION: TREATMENT: Therapeutic Exercise: 1: SciFit stepper level 2, 1:1 throughout subjective taken, as well as education seat 2: *heel raises 2x20, requires BUE assist at table top 3: SL hip abd 2x12 LLE, unable to tolerate on the RLE 4: SL hip ER 2x12 LLE 5: *hooklying B hip ER 2x25 6: hooklying pelvic rotations 2x20 Skilled Intervention: Patient was educated in proper exercise technique and purpose for exercises. Skilled judgment was provided in selection of appropriate interventions. Provided written instruction for home exercise program to facilitate proper performance and compliance. Correct performance of therapeutic exercises was facilitated with verbal, visual, and tactile cuing. Educated patient on rationale for performing exercises in regards to decreasing fatigue , including balance, increase ease of ADL, and ROM and function . Patient education as noted. Neuromuscular Re-Education: 1: TA activation with biofeed back 20 mmHg to 40 mmHg 1x10 2: TA activation with biofeed back hold 40 mmHG 5x10 sec Skilled Intervention: Education in proprioceptive/kinesthetic awareness during hook lying TA activation using biofeedback. Reviewed and educated patient on additions/changes for home program as noted above with an (*). Patient education as noted. Gait Training: Distance (feet): 40' 8x Gait Cues: heel strike, push off toes, minimize trunk sway espeically to the right with R loading response phase of gait cycle Assistive Device: none Assist Level: supervision Skilled Intervention: Facilitated proper gait cycle with the use of verbal and visual cues for correction of gait deviations identified in the objective section above. Correct performance of home program was facilitated with verbal and visual cueing. Billing Therapeutic Exercise Treatment Minutes: 20 Neuromuscular Re-Education Treatment Minutes: 10 Gait Training Treatment Minutes: 10 Total Treatment Time Minutes (timed/untimed): 40 Barbra Philip PT documented in this encounter [facility] 12-11-2022 Note [facility] 12-11-2022 History of Present illness Narrative Episode Visit Count: 3 Therapist That Will Accept/Oversee The Plan Of Care: Barbra Philip Start of Care Date: 11/15/22 Onset Date: 08/17/22 Plan of Care Certification Date: 11/15/22 Next Certification Due Date: 12/20/22 REHABILITATION AND SPORTS THERAPY PHYSICAL THERAPY TREATMENT NOTE ASSESSMENT: Kristina Macario tolerated the session with fatigue. She demonstrated difficulty with TA activation with correct technique using biofeedback due t holding the breath, but this improved with practice. The patient will continue to benefit from ongoing skilled physical therapy to progress toward set goals. Current Frequency: 2x/week PLAN FOR NEXT VISIT: Continue gait and balance training, consider core stabilization strengthening in seated or standing as tolerated SUBJECTIVE: Patient Reason for Visit: Pt. had R hip injection 11/30/22 and this improved her symptoms. Pt. presents without cane and reports that she has discontinued using it since 11/30/22. She attributes her gait deviations to her R knee pain, but this has also reduced significantly since the injection. She initially reports that seated lumbar flexion has been an effective exercise for reducing low back pain. Pain: Pain Pain Level: 3 Pain Location: Low Back/Lumbar Spine - Right Description: Radiating Frequency: At rest Pain Level 2: 0 Pain Location 2: Knee - Left, Knee - Right Description 2: Aching Post Treatment Pain Post Treatment Pain Level: No Change Post Treatment Pain Location: Low Back/Lumbar Spine - Right Post Treatment Pain Description: Aching OBJECTIVE MEASURES WITH LEVEL OF FUNCTION: TREATMENT: Therapeutic Exercise: 1: *TA activation hook lying 3x5 reps with 10 sec hold, 2x/day 2: seated lumbar flexion 2x10 (reports increased symptoms to 7/10, states this increases her pain -- not consistent with initial subjective report) Skilled Intervention: Patient was educated in proper exercise technique and purpose for exercises. Reviewed and educated patient on additions/changes for home exercise program as above (*). Skilled judgment was provided in selection of appropriate interventions. Provided written instruction for home exercise program to facilitate proper performance and compliance. Correct performance of therapeutic exercises was facilitated with verbal, visual, and tactile cuing. Educated patient on rationale for performing exercises in regards to decreasing fatigue , increase ease of ADL, and ROM and function . Patient education as noted. Neuromuscular Re-Education: 1: TA activation with biofeed back 20 mmHg to 40 mmHg 2x10 (verbal cues to avoid lifting the head or the hips off the table surface) 2: TA activation with biofeed back 20 mmHg to 25 proressing to 35 mmHg 3x5 reps with 10 sec hold Skilled Intervention: Skilled judgment used to assess appropriate program for balance and coordination activity. Education in proprioceptive/kinesthetic awareness during TA activation using biofeedback. Reviewed and educated patient on additions/changes for home program as noted above with an (*). Provided written instruction for home program to facilitate proper performance and compliance. Patient education as noted. Gait Training: Pre gait training: correct adjustment of cane reviewed, discussed correct use on the left UE due to RLE knee pain Distance (feet): 100 ft with straight cane, 100 ft without AD Gait Cues: heel strike RLE, knee extension throughout mid stance Assistive Device: straight cane progressing to no cane Assist Level: SBA Skilled Intervention: Patient was provided stand by assist during pre-gait/gait training to prevent falls and insure safety. Facilitated proper gait cycle with the use of verbal and visual cues for correction of gait deviations identified in the objective section above. Skilled judgment used to assess selection, proper sizing, and proper use of assistive device. Provided written instruction for home program to facilitate proper performance and compliance. Correct performance of home program was facilitated with verbal and visual cueing. Self-Jail Management: 1: *advised using the cane due to gait deviation although symptoms have reduced in the low back. 2: *advised not using a ab machine at home, must first build core stabilization strength before active spine flexion movement Skilled Intervention: Skilled judgment in the selection of proper modification for activity of daily living/home management based on clinical presentation, deficits, and needs. Provided written instruction for activities of daily living techniques to facilitate proper performance and compliance. Reviewed patient specific diagnosis in relation to activities of daily living/home management. Activity progression based on professional judgement. Reviewed and educated patient on additions/changes for home program as noted above with an (*). Provided written instruction for home program to facilitate proper performance and compliance. Billing Therapeutic Exercise Treatment Minutes: 5 Neuromuscular Re-Education Treatment Minutes: 15 Self-Care/Home Management Treatment Minutes: 5 Gait Training Treatment Minutes: 15 Total Treatment Time Minutes (timed/untimed): 40 Barbra Philip PT documented in this encounter [facility] 11-30-2022 Surgical operation note BRIEF OP NOTE LOG ID: [id number] Surgery/Procedure Date: 11/30/2022 Surgeon(s)/Proceduralist(s) and Electrical Assembler(s): Ines Dwyer PA-C Procedure(s): Imaging guided right hip pain injection Anesthesia: local 5 ml lidocaine Findings: Successful right hip pain injection of 3ccLidocaine 1% and Bupivacine 0.25% and Kenalog 40mg/ml - 2 cc's . Pre-procedure pain of 8/10 Post-procedure pain of 3/10 Estimated Blood Loss: <1 ml Specimens: None Complications: None Pre-Op/Pre-Procedure Diagnosis: right hip pain Post-Op/Post-Procedure Diagnosis: same SIGNATURE: Ines Dwyer PA-C PATIENT NAME: Kristina Macario DATE: November 30, 2022 TIME: 10:50 AM PAGER/CONTACT #: documented in this encounter [facility] 11-30-2022 Miscellaneous Notes Post pain 3/10 rt hip Discharge instructions reviewed. Verbalized understanding. Pre pain 8/10 rt hip documented in this encounter [facility] 11-29-2022 Note HNO ID: [id number] Author: Francine Ortiz MA Service: ? Author Type: Designated Broker Type: Progress Notes Filed: 11/29/2022 8:30 PM Note Text: Scan on 11/28/2022 3:08 PM by External Provider: Consultation - Anesthesia/Pain Francine Ortiz MA [facility] 11-29-2022 History of Present illness Narrative Scan on 11/28/2022 3:08 PM by External Provider: Consultation - Anesthesia/Pain Francine Ortiz MA documented in this encounter [facility] 11-22-2022 Note [facility] 11-22-2022 History of Present illness Narrative Episode Visit Count: 2 Therapist That Will Accept/Oversee The Plan Of Care: Barbra Philip Start of Care Date: 11/15/22 Onset Date: 08/17/22 Plan of Care Certification Date: 11/15/22 Next Certification Due Date: 12/20/22 REHABILITATION AND SPORTS THERAPY PHYSICAL THERAPY TREATMENT NOTE ASSESSMENT: Kristina Macario tolerated the session with increased symptoms. She demonstrated improvements in lumbar extension ROM with repeated reps of standing lumbar extension with BUE at wall, however symptoms peripheralized distal to the lateral right knee while decreasing in intensity. The patient will continue to benefit from ongoing skilled physical therapy to progress toward set goals. PLAN FOR NEXT VISIT: Pt. reports not being able to get in for x3 weeks. PT advised pt. to check hotel front office manager for earlier availiability that works for pt. schedule. Cancellations and discharges can free up slots. Add seated lumbar flexion and pelvic rotations to HEP next visit. Consider manual txn if symptoms do not centralize with flexion. SUBJECTIVE: Patient Reason for Visit: Pt. reports that she thinks the HEP may have eased it some a little, but it is not gone. She attributes increased symptoms this morning to the weather and being on new medication. Pain: Pain Pain Level: 8 Pain Location: Low Back/Lumbar Spine - Right Description: Radiating Frequency: At rest Pain Location 2: Knee - Left, Knee - Right Post Treatment Pain Post Treatment Pain Level: Better Post Treatment Pain Location: Low Back/Lumbar Spine - Right Post Treatment Pain Description: Aching Post Treatment Symptoms: centralized symptoms with flexion this visit, peripheralized from extension OBJECTIVE MEASURES WITH LEVEL OF FUNCTION: TREATMENT: Therapeutic Exercise: 1: standing at wall, UE support repeated lumbar extension 3x10, symptoms peripheralized this visit distal to the lateral knee, pt. demonstrates improved ROM with reduced symptom intensity to 5/10 (symptoms centralized to the right hip and groin following repeated lumbar extension) 2: seated lumbar flexion 3x10, symptoms centralized from the RLE to the low back, low back intensity 6/10 3: dc lumbar extension based exercises 4: hook lying pelvic rotations 2x20 (centralized symptoms from the RLE, increased LBP 8/10, R>L) 5: *hook lying single KTC stretch 3x30 sec each side 6: *hook lying single KTC stretch 3x30 sec each side 7: *hook lying posterior pelvic tilt 3 sets 10, 1 sec hold 8: *lumbar flexion HEP 2x/day Skilled Intervention: Patient was educated in proper exercise technique and purpose for exercises. Reviewed and educated patient on additions/changes for home exercise program as above (*). Skilled judgment was provided in selection of appropriate interventions. Provided written instruction for home exercise program to facilitate proper performance and compliance. Educated patient on rationale for performing exercises in regards to increase ease of ADL and ROM and function . Patient education as noted. Self-Jail Management: 1: *discussed directional preference and the goal to centralize symptoms from the LE to the low back 2: *encouraged pt. to tie her shoes - she demonstrates adequate lumbar flexion mobility to complete while sitting. Pt. refuses for PT to assist today. Skilled Intervention: Skilled judgment in the selection of proper modification for activity of daily living/home management based on clinical presentation, deficits, and needs. Provided written instruction for activities of daily living techniques to facilitate proper performance and compliance. Reviewed patient specific diagnosis in relation to activities of daily living/home management. Reviewed and educated patient on additions/changes for home program as noted above with an (*). Provided written instruction for home program to facilitate proper performance and compliance. Correct performance of home program was facilitated with verbal, visual, and tactile cueing. Billing Therapeutic Exercise Treatment Minutes: 35 Self-Care/Home Management Treatment Minutes: 5 Total Treatment Time Minutes (timed/untimed): 40 Barbra Philip PT documented in this encounter [facility] 11-20-2022 Miscellaneous Notes Pt notified of results via [employer]. Sara Mcgarry Ma Left message for patient to contact office. Francine Ortiz MA Let patient know the repeat CBC was normal. documented in this encounter [facility] 11-17-2022 Note [facility] 11-17-2022 Instructions Babs Guerra MD - 11/17/2022 2:34 PM EDT [employer] message me when you have CPAP set up. documented in this encounter [facility] 11-17-2022 History of Present illness Narrative Images from the original note were not included. . [facility] Note Patient name: Kristina Macario PCP: Ganga Sheppard MD CC: Post COVID follow-up HPI: Kristina Macario 62 year old female former minimal smoker with PMH significant for HUBER not on CPAP since recall of her Katelyn machine, HTN, hydrocephalus, fibromyalgia, anxiety, HLD, COVID-pneumonia in May 2021. COVID treated with dexamethasone only and high flow nasal cannula oxygen, discharged on 5 L, currently using 3 L oxygen at night and as needed during the day. Chest CT showed resolution of her infiltrates but has a persistent 6 mm subpleural nodule in the right upper lobe which has been stable. She continues to feel short of breath intermittently during the day. Self monitored SPO2 with adequate oxygenation, lowest SPO2 90%. She has cough productive of clear phlegm in the morning. She just received a new CPAP machine but has yet to start using. She did well with her reverse shoulder surgery, no pulmonary complications. She states that she is going to need a right hip replacement and left shoulder surgery. She is still currently participating in rehab for her right shoulder surgery. No recent upper respiratory infections or hospitalizations for lung issues. DME: [employer] PAST MEDICAL HISTORY Diagnosis Date Abnormal mammogram Advance directive discussed with patient 04/06/2022 Discussed 04/06/2022 Arthritis of knee, left 01/31/2013 Arthritis of left hip 01/19/2016 Ascending aorta dilatation (HCC) 07/04/2017 04/19/16: 4.2 cm 06/11/17: 4.4 cm 06/24/18 4.4 cm Cervical high risk human papillomavirus (HPV) DNA test positive 05/27/2008 Chronic anxiety 06/01/2021 Chronic diarrhea 12/09/2018 Chronic hypoxemic respiratory failure (HCC) 09/06/2021 resolved Chronic prescription benzodiazepine use 06/01/2021 DDD (degenerative disc disease), lumbar 07/24/[address] [facility] Essential tremor 04/06/2022 Ex-smoker 04/06/2022 Excessive or frequent menstruation Heavy periods Fibromyalgia 02/26/2014 Hemorrhage of gastrointestinal tract, unspecified History of COVID-19 06/13/202105/2021 Hydrocephalus, adult (HCC) 02/09/2003 Hypertension, essential 01/22/2019 Living will on file 04/06/2022 DPA: Victoriano () Lung nodule 01/24/2022 Seeing pulm Migraines 07/26/2021 Used to see neuro and was getting Botox Mild dysplasia of cervix 2006 Mixed hyperlipidemia 01/20/2016 Nonrheumatic mitral valve disorder, unspecified 04/06/2016 Obstructive sleep apnea 10/13/2016 DME - [employer] Plantar fasciitis 2018 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 Babs Guerra Postcoital bleeding Primary insomnia 06/13/2021 Primary osteoarthritis of both shoulders 04/06/2022 Seeing [facility] Rectocele 04/19/2007 Renal cyst 07/13/2016 Right knee pain Situational mixed anxiety and depressive disorder 11/12/2017 Thoracic aortic aneurysm without rupture (HCC) 2018 Urge incontinence 04/19/2007 Vitamin D deficiency 07/23/2012 Well adult exam 06/13/2021 Last done: 06/13/2021 ALLERGIES Allergen Reactions Dilaudid [Hydromorp* Other: See Comments Pt states she hallucinates Sulfa (Sulfonamide * Rash Ultram [Tramadol Hc* GI Upset Pt. tried again on 02-13 and became very ill with GI issues Oxycontin [Oxycodon* Swelling Relafen [Nabumetone] GI Upset Sertraline Other: See Comments Tremors right upper extremity. FLUoxetine (PROZAC) 40 mg capsule Take 1 capsule by mouth once daily. cyclobenzaprine (FLEXERIL) 10 mg tablet Take 1 tablet by mouth three times daily as needed (for fibro pain). traZODone (DESYREL) 100 mg tablet Take 2 tablets by mouth daily at bedtime. hydrOXYzine HCl (ATARAX) 10 mg tablet Take 1 tablet by mouth three times daily as needed. atorvastatin (LIPITOR) 40 mg tablet Take 1 tablet by mouth daily at bedtime. For cholesterol. azelastine (ASTELIN, ASTEPRO) 0.1% nasal spray Use 2 Sprays in each nostril twice daily as needed. metoprolol succinate ER (TOPROL XL) 50 mg 24 hr tablet Take 2 tablets by mouth once daily. CPAP Lifetime supplies for AutoPAP 6-11 cm H20 including mask, heated tubing, humidity, filters. Fax 30 day download report to [phone] to assess residual ahi. meloxicam (MOBIC) 15 mg tablet Take 1 tablet by mouth once daily. Take with food. fluticasone (FLONASE) 50 mcg/actuation nasal spray Use 2 Sprays in each nostril once daily. Rinse mouth after use. vit C-Zn gluc-herbal no.325 (ELDERBERRY ZINC VIT C) 90-15 mg lozg Use 1 Lozenge as instructed twice daily. losartan (COZAAR) 50 mg tablet 50 mg once daily. calcium carbonate (CALTRATE 600 ORAL) Take 1 tablet by mouth once daily. multivitamin tablet Take 1 tablet by mouth once daily. BIOTIN ORAL Take 1 tablet by mouth once daily. Cholecalciferol, Vitamin D3, 2,000 unit cap Take 10,000 Units by mouth once daily. Social History Tobacco Use Smoking status: Former Packs/day: 0.10 Years: 2.00 Pack years: 0.20 Types: Cigarettes Quit date: 04/26/2010 Years since quittin.5 Smokeless tobacco: Never Tobacco comments: half a pack a week, hasn't smoked since 05/2009 Vaping Use Vaping Use: Never used Substance Use Topics Alcohol use: Yes Comment: occasionally, several times a month glass of wine or mixed drink Drug use: No FAMILY HISTORY Problem Relation Age of Onset Heart Mother skin cancer on nose Breast Cancer Mother Heart Father Hypertension Father Heart Maternal Grandmother Thyroid Sister Thyroid Paternal Aunt PAST SURGICAL HISTORY Procedure Laterality Date APPENDECTOMY 1987 COLONOSCOPY 08/19/2013 COLONOSCOPY FLX DX W/COLLJ SPEC WHEN PFRMD 09/19/2019 Colonoscopy COLONOSCOPY SCREENING 05/05/2022 repeat in 5 years COLONOSCOPY W/BIOPSY SINGLE/MULTIPLE 03/15/2009 minimal colitis-repeat in COLPOSCOPY CERVIX UPPER/ADJACENT VAGINA Colposcopy DILATION & CURETTAGE DX&/THER NONOBSTETRIC 2002 Dilation & curettage EGD 05/05/2022 mild gastritis ESOPHAGOGASTRODUODENOSCOPY TRANSORAL DIAGNOSTIC 09/19/2019 EGD LIG/TRNSXJ FLP TUBE ABDL/VAG APPR UNI/BI 1989&1991 Tubal ligation PAST SURGICAL HISTORY OF 2000 BRAIN SURG/HYDROCEPHALIS - PAST SURGICAL HISTORY OF 2000 REPAIR TENNIS ELBOW PAST SURGICAL HISTORY OF 09/07/06, 05/10,11/08 repair rotator cuff/tendon rt. shoulder PAST SURGICAL HISTORY OF 10/2017 ex lap, ALFRED PROCEDURE , COLOSTOMY PAST SURGICAL HISTORY OF Right 06/2022 Reverse shoulder surgery PICC LINE INSERT/CONSULT 10/26/2017 REPAIR FIRST ABDOMINAL WALL HERNIA 04/05/2020 Hernia repair, incisional STEREOTACTIC LOCALIZATION BREAST BIOPSY 06/10/2015 right TUBAL LIGATION HX 1989 and 1991 VAGINAL HYSTERECTOMY UTERUS 250 GM/< 09/04/2008 Hysterectomy, vaginal/TVT PMH, Social history, family history and surgical history reviewed and updated in EMR REVIEW OF SYSTEMS: CONSTITUTIONAL: No fevers, chills, nightsweats, unintended weight loss HEENT: Positive nasal congestion/sinus symptoms, postnasal drip CARDIOVASCULAR: No chest pain, palpitations, orthopnea, PND, edema. Tachycardia with activity PULM: See HPI GI: No dysphagia/odynophagia, problematic reflux NEURO: No new balance problems, peripheral weakness/paresthesias or numbness of concern. Tremors MUSC-SKEL: Joint pain, back pain PSY: No concerns regarding depression, anxiety INTEGUMENTARY: No new skin changes or rashes PHYSICAL EXAMINATION: BP 128/72 Pulse 56 Resp 14 Wt 192 lb (87.1kg) SpO2 96% LMP 08/04/2008 General Appearance: Age-appropriate female, NAD Skin: Skin color, texture, turgor normal, no suspicious rashes or lesions. Head: Normocephalic, no masses, lesions, tenderness or abnormalities. Eyes: Sclera, conjunctiva normal Oropharynx: No oral lesions or thrush Neck: No JVD, no masses, no adenopathy Lungs: Not labored, normal to percussion, no wheezes or crackles Heart: Regular rate and rhythm, no murmurs gallops Extremities: No edema clubbing Neurologic: Alert and oriented, essential tremor Assessment/Plan: 1. Post COVID chronic dyspnea -Continued self monitored SPO2 during the day -Will check overnight oximetry on CPAP alone once she is set up as we may be able to discontinue her oxygen 2. Dependence on nocturnal oxygen -See #1 -Patient has obstructive sleep apnea so may not need oxygen once she is on her CPAP 3. Lung nodule -Due for follow-up CT in March to evaluate 6 mm nodule Babs Guerra MD [facility] documented in this encounter [facility] 11-15-2022 Note [facility] 11-15-2022 History of Present illness Narrative Chief Complaint Patient presents with: Back Pain HPI Kristina Macario is a 62 year old female who presents here today for continued low back pain/right hip and having pain all lover with extreme fatigue. Patient has been off balance and experiencing some blurred vision. Patient recently saw ortho on 11/13/2022 who has ordered PHYSICAL THERAPY along with getting her set up with a right hip injection for therapeutic and diagnostic purposes. He also referred her to see pain management and Rheumatology. Patient has been noticing increased fatigue and body aches. Denies and shortness of breath but feels her O2 is low at times and will run from 90-upper 90's at home on her pulse ox. She does have O2 at home but has not put it on. Has not reached out to pulmonary who she last saw on 03/20/2022. Office note says f/u after testing but no future appt has been made. Has been having blurring of her vision for the past 3 weeks with double vision. Patient has not made an appt to see optho with this going on. Has had days where it has been difficulty moving her arms and legs. Patient's depression has worsened with not feeling good most days and having difficulty getting around. Patient also complains of off balance and ataxia with walking. Has a Hx of incontinence but has been worse in the past 3 months along with the balance. Past medical history, appointments, medications, allergies reviewed. Previous Medical History PAST MEDICAL HISTORY Diagnosis Date Abnormal mammogram Advance directive discussed with patient 04/06/2022 Discussed 04/06/2022 Arthritis of knee, left 01/31/2013 Arthritis of left hip 01/19/2016 Ascending aorta dilatation (HCC) 07/04/2017 04/19/16: 4.2 cm 06/11/17: 4.4 cm 06/24/18 4.4 cm Cervical high risk human papillomavirus (HPV) DNA test positive 05/27/2008 Chronic anxiety 06/01/2021 Chronic diarrhea 12/09/2018 Chronic hypoxemic respiratory failure (HCC) 09/06/2021 resolved Chronic prescription benzodiazepine use 06/01/2021 DDD (degenerative disc disease), lumbar 07/24/[address] Jose Raul Camarena Essential tremor 04/06/2022 Ex-smoker 04/06/2022 Excessive or frequent menstruation Heavy periods Fibromyalgia 02/26/2014 Hemorrhage of gastrointestinal tract, unspecified History of COVID-19 06/13/202105/2021 Hydrocephalus, adult (HCC) 02/09/2003 Hypertension, essential 01/22/2019 Living will on file 04/06/2022 DPA: Victoriano () Lung nodule 01/24/2022 Seeing pulm Migraines 07/26/2021 Used to see neuro and was getting Botox Mild dysplasia of cervix 2006 Mixed hyperlipidemia 01/20/2016 Nonrheumatic mitral valve disorder, unspecified 04/06/2016 Obstructive sleep apnea 10/13/2016 DME - [facility] Plantar fasciitis 2018 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 Babs Guerra Postcoital bleeding Primary insomnia 06/13/2021 Primary osteoarthritis of both shoulders 04/06/2022 Seeing anahi camarena Rectocele 04/19/2007 Renal cyst 07/13/2016 Right knee pain Situational mixed anxiety and depressive disorder 11/12/2017 Thoracic aortic aneurysm without rupture ([facility]) 2018 Urge incontinence 04/19/2007 Vitamin D deficiency 07/23/2012 Well adult exam 06/13/2021 Last done: 06/13/2021 Previous Surgical History PAST SURGICAL HISTORY Procedure Laterality Date APPENDECTOMY 1987 COLONOSCOPY 08/19/2013 COLONOSCOPY FLX DX W/COLLJ SPEC WHEN PFRMD 09/19/2019 Colonoscopy COLONOSCOPY SCREENING 05/05/2022 repeat in 5 years COLONOSCOPY W/BIOPSY SINGLE/MULTIPLE 03/15/2009 minimal colitis-repeat in COLPOSCOPY CERVIX UPPER/ADJACENT VAGINA Colposcopy DILATION & CURETTAGE DX&/THER NONOBSTETRIC 2002 Dilation & curettage EGD 05/05/2022 mild gastritis ESOPHAGOGASTRODUODENOSCOPY TRANSORAL DIAGNOSTIC 09/19/2019 EGD LIG/TRNSXJ FLP TUBE ABDL/VAG APPR UNI/BI 1989&1991 Tubal ligation PAST SURGICAL HISTORY OF 2000 BRAIN SURG/HYDROCEPHALIS - PAST SURGICAL HISTORY OF 2000 REPAIR TENNIS ELBOW PAST SURGICAL HISTORY OF 09/07/06, 05/10,11/08 repair rotator cuff/tendon rt. shoulder PAST SURGICAL HISTORY OF 10/2017 ex lap, ALFRED PROCEDURE , COLOSTOMY PICC LINE INSERT/CONSULT 10/26/2017 REPAIR FIRST ABDOMINAL WALL HERNIA 04/05/2020 Hernia repair, incisional STEREOTACTIC LOCALIZATION BREAST BIOPSY 06/10/2015 right TUBAL LIGATION HX 1989 and 1991 VAGINAL HYSTERECTOMY UTERUS 250 GM/< 09/04/2008 Hysterectomy, vaginal/TVT Family History FAMILY HISTORY Problem Relation Age of Onset Heart Mother skin cancer on nose Breast Cancer Mother Heart Father Hypertension Father Heart Maternal Grandmother Thyroid Sister Thyroid Paternal Aunt Patient Allergies ALLERGIES Allergen Reactions Dilaudid [Hydromorp* Other: See Comments Pt states she hallucinates Sulfa (Sulfonamide * Rash Ultram [Tramadol Hc* GI Upset Pt. tried again on 02-13 and became very ill with GI issues Oxycontin [Oxycodon* Swelling Relafen [Nabumetone] GI Upset Sertraline Other: See Comments Tremors right upper extremity. Current Medications Current Outpatient Medications on File Prior to Visit Medication Sig cyclobenzaprine (FLEXERIL) 10 mg tablet Take 1 tablet by mouth three times daily as needed for muscle spasm. traZODone (DESYREL) 100 mg tablet Take 2 tablets by mouth daily at bedtime. hydrOXYzine HCl (ATARAX) 10 mg tablet Take 1 tablet by mouth three times daily as needed. atorvastatin (LIPITOR) 40 mg tablet Take 1 tablet by mouth daily at bedtime. For cholesterol. azelastine (ASTELIN, ASTEPRO) 0.1% nasal spray Use 2 Sprays in each nostril twice daily as needed. metoprolol succinate ER (TOPROL XL) 50 mg 24 hr tablet Take 2 tablets by mouth once daily. meloxicam (MOBIC) 15 mg tablet Take 1 tablet by mouth once daily. Take with food. fluticasone (FLONASE) 50 mcg/actuation nasal spray Use 2 Sprays in each nostril once daily. Rinse mouth after use. vit C-Zn gluc-herbal no.325 (ELDERBERRY ZINC VIT C) 90-15 mg lozg Use 1 Lozenge as instructed twice daily. losartan (COZAAR) 50 mg tablet 50 mg once daily. calcium carbonate (CALTRATE 600 ORAL) Take 1 tablet by mouth once daily. multivitamin tablet Take 1 tablet by mouth once daily. BIOTIN ORAL Take 1 tablet by mouth once daily. Cholecalciferol, Vitamin D3, 2,000 unit cap Take 10,000 Units by mouth once daily. FLUoxetine (PROZAC) 20 mg capsule Take 1 capsule by mouth once daily. sucralfate (CARAFATE) 1 gram tablet Take 1 tablet by mouth before meals and at bedtime. (Patient not taking: Reported on 11/15/2022) omeprazole (PRILOSEC) 40 mg capsule Take 1 capsule by mouth once daily. cetirizine (ZYRTEC) 10 mg tablet Take 10 mg by mouth once daily. (Patient not taking: Reported on 11/15/2022) CPAP Lifetime supplies for AutoPAP 6-11 cm H20 including mask, heated tubing, humidity, filters. Fax 30 day download report to [phone] to assess residual ahi. No current facility-administered medications on file prior to visit. Social History Social History Tobacco Use Smoking status: Former Packs/day: 0.10 Years: 2.00 Pack years: 0.20 Types: Cigarettes Quit date: 04/26/2010 Years since quittin.5 Smokeless tobacco: Never Tobacco comments: half a pack a week, hasn't smoked since 05/2009 Vaping Use Vaping Use: Never used Substance Use Topics Alcohol use: Yes Comment: occasionally, several times a month glass of wine or mixed drink Drug use: No Review of Symptoms REVIEW OF SYSTEMS See HPI EXAM: BP 150/90 (BP Site: Left Arm, BP Position: Sitting, BP Cuff Size: Regular Adult) Pulse 60 Temp 36.9 C (98.4 F) (Tympanic) Resp 18 Wt 87.5 kg (193 lb) LMP 08/04/2008 SpO2 95% BMI 28.92 kg/m Patient is in significant pain today and feel this is contributing to her elevated Blood pressure. General Appearance: Well appearing, alert, in no acute distress, well-hydrated, well nourished.. Eyes: Anicteric sclera. Pupils are equally round and reactive to light. Extraocular movements are intact. . Neck: Supple, no adenopathy; thyroid symmetric, normal size, no bruits. Lungs: Lungs clear to auscultation. No wheezing, rhonchi, rales.. Heart: RRR without murmur, gallop, or rubs. No ectopy. Abdomen: Normal abdominal exam, Abdomen soft, non-tender. Bowel sounds normal. No masses, organomegaly. Extremities: No deformities, edema Musculoskeletal: patient has difficulty and pain with flexion of the right hip. Peripheral Pulses: Normal. Neurologic: Gait: has a limp favoring the right side. Reflexes normal and symmetric. Sensation to light touch is intact but diminished in the lateral upper right thigh and medial right calf area. Health Maintenance List COVID-19 VACCINE(1) Never done INFLUENZA(1) due on 05/04/2022 BP CONTROLLED (<130/80) due on 06/13/2022 SHINGRIX VACCINE(1 of 2) due on 04/06/2023 MAMMOGRAM due on 04/27/2023 ANNUAL PCP TEAM CHRONIC DISEASE VISIT due on 10/09/2023 DIABETES SCREEN due on 10/09/2025 COLORECTAL CANCER SCREENING due on 05/05/2027 LIPID SCREEN due on 10/09/2027 DTAP,TDAP,TD(5 - Td or Tdap) due on 03/12/2030 HEPATITIS C SCREENING Completed PAP TESTING Discontinued HPV TESTING Discontinued HIV SCREENING Discontinued Data reviewed Component Latest Ref Rng & Units 10/09/2022 WBC 3.70 - 11.00 k/uL 14.28 (H) RBC 3.90 - 5.20 m/uL 4.44 Hemoglobin 11.5 - 15.5 g/dL 13.5 Hematocrit 36.0 - 46.0 % 39.8 MCV 80.0 - 100.0 fL 89.6 MCH 26.0 - 34.0 pg 30.4 MCHC 30.5 - 36.0 g/dL 33.9 RDW-CV 11.5 - 15.0 % 13.2 Platelet Count 150 - 400 k/uL 228 MPV 9.0 - 12.7 fL 11.4 Neut% % 81.7 Abs Neut (ANC) 1.45 - 7.50 k/uL 11.66 (H) Lymph% % 8.1 Abs Lymph 1.00 - 4.00 k/uL 1.16 [place]% % 9.2 Abs [place] <0.87 k/uL 1.31 (H) Eosin% % 0.4 Abs Eosin <0.46 k/uL 0.06 Baso% % 0.2 Abs Baso <0.11 k/uL 0.03 Immature Gran % % 0.4 IMMATURE GRANS (ABS) <0.10 k/uL 0.06 NRBC /100 WBC 0.0 Absolute nRBC <0.01 k/uL <0.01 DTYPE Auto TSH 0.270 - 4.200 mIU/L 0.976 Vitamin B12 232 - 1,245 pg/mL 303 Free T4 0.9 - 1.7 ng/dL 1.0 A/P ASSESSMENT/PLAN: 1. Situational mixed anxiety and depressive disorder - ICD9: 309.28, ICD10: F43.23 (primary diagnosis) Will increase the FLUOXETINE to 40 MG CAPSULE once a day 2. Chronic anxiety - ICD9: 300.00, ICD10: F41.9 - as above - FLUOXETINE 40 MG CAPSULE 3. Fibromyalgia - ICD9: 729.1, ICD10: M79.7 - patient to see rheumatology Will change CYCLOBENZAPRINE 10 MG TABLET to TID prn. 4. Spinal stenosis, lumbar region, without neurogenic claudication - ICD9: 724.02, ICD10: M48.061 - seeing ortho 5. Right hip pain - ICD9: 719.45, ICD10: M25.551 - seeing ortho 6. Post-COVID chronic dyspnea - ICD9: 786.09, 139.8, ICD10: R06.09, U09.9 - patient to get back in with Pulmonary 7. Hydrocephalus, adult (HCC) - ICD9: 331.4, ICD10: G91.9 Check - MRI BRAIN WO IVCON 8. Ataxia - ICD9: 781.3, ICD10: R27.0 Check - MRI BRAIN WO IVCON 9. Double vision - ICD9: 368.2, ICD10: H53.2 Check - MRI BRAIN WO IVCON 10. Urinary incontinence, unspecified type - ICD9: 788.30, ICD10: R32 Check - MRI BRAIN WO IVCON 11. Back spasm - ICD9: 724.8, ICD10: M62.830 - CYCLOBENZAPRINE 10 MG TABLET 12. Other hydrocephalus (HCC) - ICD9: 331.4, ICD10: G91.8 Check - MRI BRAIN WO IVCON 13. Leukocytosis, unspecified type - ICD9: 288.60, ICD10: D72.829 Check - CBC + DIFF Requested Prescriptions Signed Prescriptions Disp Refills FLUoxetine (PROZAC) 40 mg capsule 90 capsule 1 Sig: Take 1 capsule by mouth once daily. cyclobenzaprine (FLEXERIL) 10 mg tablet 90 tablet 5 Sig: Take 1 tablet by mouth three times daily as needed (for fibro pain). Needs WAE schedule for april. I spent a total of 44 minutes on the date of the service which included preparing to see the patient, [id number] patient care, completing clinical documentation, performing a medically appropriate examination, counseling and educating the patient/family/caregiver and ordering medications, tests, or procedures. Ganga Sheppard MD documented in this encounter [facility] 11-15-2022 Note [facility] 11-15-2022 History of Present illness Narrative Episode Visit Count: 1 Therapist That Will Accept/Oversee The Plan Of Care: Barbra Philip Start of Care Date: 11/15/22 Onset Date: 08/17/22 Plan of Care Certification Date: 11/15/22 Next Certification Due Date: 12/20/22 Patient Identified by Name and Date of : Yes REHABILITATION AND SPORTS THERAPY PHYSICAL THERAPY EVALUATION PLAN OF CARE: Assessment: Kristina Macario presents with diagnosis of spinal stenosis, lumbar region without neurogenic claudication, primary OA of both knees that interferes with walking, bending, stair negotiation, walking in the community, walking in the house, rising from a chair, standing, sleeping, lifting, bed mobility, weight bearing, dressing, grooming, cooking, cleaning, driving . She presents with impairments in ADL's, balance, flexibility, gait, independence in exercise, joint mobility, overall function, patient reported outcome measures, posture, range of motion, strength, symptom management, and tissue tenderness. PROMIS (Patient-Reported Outcomes Measurement Information System) scores were reviewed and physical function domain and self efficacy domain identified as a rehabilitation concern. Prognosis for therapy is Fair due to: limited tolerance to activity, occupational demands, chronic nature of impairments, multiple co- morbidities, clinical presentation . She will benefit from skilled therapy services to meet the goals established for this plan of care as noted below. Classification Low Back Pain Subgroup Classification: Spinal mobilization subgroup: recommended visits 6. Specific Exercies Subgroup Classification based on: directional preference, centralization Spinal Mobilization Subgroup Classification based on: ROM loss, paraspinal pain Goals for Episode of Care: created on 11/15/22 through 01/10/23 Independent in home exercises. Patient will decrease pain rating by 2 points to meet minimal clinical important difference for numeric pain rating scale. Restore pain-free lumbar ROM to moderate to minimal AROM grossly to allow for ADLs and transfers without limitation due to pain Stand / Walk 30-45 min without increased pain/symptoms. Sleep through night without pain/symptoms. Maintain proper sitting posture throughout session Patient will be able to tolerate driving for 30-45 min without increased symptoms. Patient will be able to correct postural deviations independently in order to improve postural alignment of trunk during transfers, ambulation, sitting, standing, and functional activities. Knowledgeable regarding prophylaxis. Patient Goals: amb without cane community distances without limitation due to LB and RLE pain Planned Interventions, Frequency, and Duration: Current Frequency: 2x/week Duration: 8 weeks Total Number of Visits Planned: 16 Planned Treatment Interventions: Therapeutic exercise (39980), Neuromuscular re-education (50674), Manual therapy (51245), Self-nursing home management (73898), Gait Training (31838), Therapeutic activities (35413), Body Mechanics Training PLAN FOR NEXT VISIT: Assess symptom response to extension based directional preference standing at wall Patient demonstrates good understanding of plan of care and treatment. The above goals and plan of care were discussed and agreed upon by patient/family. SUBJECTIVE: Kristina Macario is a 62 year old female seen today for for chronic low back pain that became worse the end of August when pt. moved. Pt. attributes this to lifting boxes and negociating steps. She was having B knee and RLE radiating symptoms prior to the move. She had COVID-19 3 years ago, she was unable to return to work due to functional decline. Patient Goals: amb without cane community distances without limitation due to LB and RLE pain Functional Limitations: walking, bending, stair negotiation, walking in the community, walking in the house, rising from a chair, standing, sleeping, lifting, bed mobility, weight bearing, dressing, grooming, cooking, cleaning, driving Prior Level of Function: Independent without limitations Relevant History Past Relevant Medical Conditions: Anxiety, Hypertension, Fibromyalgia, Headaches (HPV) Past Relevant Surgical Conditions: Total Shoulder Replacement-Left, Total Hip Replacement-Left Right or Left Handed: Right Employment: Medically Disabled ([employer] at [employer] and [employer]) Home Environment Patient Lives With: Spouse 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, 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 Cauda Equina Syndrome Clinical Reasoning: No identified risk factors. Red Flags - Cervical Cancer Red Flags: Age >50 or <20 Cancer Clinical Reasoning: Proceed with caution Infection Clinical Reasoning: No identified risk factors. Spine History Symptoms Location at Onset: Back Symptoms Since Onset: Worsening Pain is Worse Always: Bending, Walking, Rising, Turning Pain is Better Always: Lying, Rest (recliner improves) Sleeping Position: Supine, Side lying left, Side lying right Sleep Affected by Pain: Pain keeps from falling asleep, Pain awakens Pain: Pain Pain Level: 4 Pain Location: Low Back/Lumbar Spine - Right Description: Numbness Frequency: At rest Additional Pain Information : Location 2 Pain Level 2: 1 Pain Location 2: Knee - Left, Knee - Right Description 2: Aching Frequency 2: With movement Post Treatment Pain Post Treatment Pain Level: 4 Post Treatment Pain Location: Low Back/Lumbar Spine - Right Post Treatment Pain Description: Aching Post Treatment Symptoms: symptoms centralized to the right hip and groin following repeated lumbar extension PROMIS Scales Higher is Better 11/12/2022 02/28/2022 Phys Func - Score 31 (moderate dysfunction) 36 (moderate dysfunction) Phys Func - Percentile 3 % 8 % Self-Eff Symptom - Score 33 (Low) - Self-Eff Symptom - Percentile 4 % - T-scores: mean of general population = 50. 5 points is clinically meaningfully difference Percentiles provide an indication of how the patient's score ranks in relation to the general population. Higher percentile rankings indicate better function/quality of life. 50th percentile is the average of the general population and indicates half of respondents had a worse score. OBJECTIVE MEASURES WITH LEVEL OF FUNCTION: Posture / Alignment Posture: Forward head Knee Observations R Knee Palpation Tenderness: Medial joint line L Knee Palpation Tenderness: Medial joint line Sensation - Lower Extremity LE Light Touch Sensation: Grossly Intact Spine Observations R Lumbar Spine Palpation Tenderness: Paraspinals Lumbar Spine AROM Lumbar Flexion: Major limitation Lumbar Extension: Major limitation Functional Strength Functional Strength: Sit<>stand Sit/Stand: must use BUE arm rests >1 attempt consistently, requires cues to scoot foward and lean forward Gait Gait: Modified Independent Gait Distance (feet): 50 Gait Device: Quad Cane Gait Deviations: General Deviations General Deviations/Observations: Visual scanning/environmental awareness decreased, UE weight bearing on assistive device excessive, Trunk Control Decreased, Step length decreased, Flexed trunk posture (trunk list to the R) Gait Observation: uses cane on R side, reports she must do this due to LUE TSA hx Education: Education Learning Preferences: Demonstration, Explanation, Performance, Printed Materials Barriers: Other: See Comment Learning/educational needs: Safety, Home exercise program, Plan of Care, Gait Training, Posture Education Provided: Yes, see treatment interventions for education provided Education Provided To: Patient Education Mode/Type: Demonstration, Explanation/Discussion, Literature/Printed Materials, Performance Response to Education/Teach Back: States/Identifies, Return Demonstration TREATMENT: PT Treatment Interventions: Therapeutic Exercise, Self-Jail Management Evaluation Therapeutic Exercise: 1: *standing at wall, UE support repeated lumbar extension 2-3 sets of 10 PRN for lower back pain. At least 3x a day to improve lumbar extension (symptoms centralized to the right hip and groin following repeated lumbar extension) Skilled Intervention: Patient was educated in proper exercise technique and purpose for exercises. Reviewed and educated patient on additions/changes for home exercise program as above (*). Skilled judgment was provided in selection of appropriate interventions. Provided written instruction for home exercise program to facilitate proper performance and compliance. Correct performance of therapeutic exercises was facilitated with verbal, visual, and tactile cuing. Educated patient on rationale for performing exercises in regards to decreasing fatigue , including balance, increase ease of ADL, and ROM and function . Patient education as noted. Self-Jail Management: 1: *lumbar roll 2: *postural education 3: *discussed choosing chairs that offer good lumbar support Skilled Intervention: Skilled judgment in the selection of proper modification for activity of daily living/home management based on clinical presentation, deficits, and needs. Provided written instruction for activities of daily living techniques to facilitate proper performance and compliance. Activity progression based on professional judgement. Maximum verbal cues for maintaining neutral spine alignment. Reviewed and educated patient on additions/changes for home program as noted above with an (*). Provided written instruction for home program to facilitate proper performance and compliance. Correct performance of home program was facilitated with verbal, visual, and tactile cueing. Billing * Evaluation Low Complexity: 1 Unit Therapeutic Exercise Treatment Minutes: 10 Self-Care/Home Management Treatment Minutes: 15 Total Treatment Time Minutes (timed/untimed): 45 Barbra Philip PT documented in this encounter [facility] 11-13-2022 Note HNO ID: [id number] Author: Jeff Story, DO Service: ? Author Type: Physician Type: Progress Notes Filed: 11/13/2022 10:03 AM Note Text: HPI: Kristina Macario is a 62 year old female who presents today with low back pain. assisted issues. Left hip SHUBHAM. Right hip pain and low back pain. Knee also having issues but needs to figure out back issues first and wants to be able to walk better and not have to use cane. Not working because of pain and long COVID issues. Injections in the past helped. Goes to see Anahi smith today. PAST MEDICAL HISTORY Diagnosis Date Abnormal mammogram Advance directive discussed with patient 04/06/2022 Discussed 04/06/2022 Arthritis of knee, left 01/31/2013 Arthritis of left hip 01/19/2016 Ascending aorta dilatation (HCC) 07/04/2017 04/19/16: 4.2 cm 06/11/17: 4.4 cm 06/24/18 4.4 cm Cervical high risk human papillomavirus (HPV) DNA test positive 05/27/2008 Chronic anxiety 06/01/2021 Chronic diarrhea 12/09/2018 Chronic hypoxemic respiratory failure (HCC) 09/06/2021 resolved Chronic prescription benzodiazepine use 06/01/2021 DDD (degenerative disc disease), lumbar 07/24/[address] Jose Raul Camarena Essential tremor 04/06/2022 Ex-smoker 04/06/2022 Excessive or frequent menstruation Heavy periods Fibromyalgia 02/26/2014 Hemorrhage of gastrointestinal tract, unspecified History of COVID-19 06/13/202105/2021 Hydrocephalus, adult (HCC) 02/09/2003 Hypertension, essential 01/22/2019 Living will on file 04/06/2022 DPA: Victoriano () Lung nodule 01/24/2022 Seeing pulm Migraines 07/26/2021 Used to see neuro and was getting Botox Mild dysplasia of cervix 2006 Mixed hyperlipidemia 01/20/2016 Nonrheumatic mitral valve disorder, unspecified 04/06/2016 Obstructive sleep apnea 10/13/2016 DME - [facility] Plantar fasciitis 2018 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 Babs Guerra Postcoital bleeding Primary insomnia 06/13/2021 Primary osteoarthritis of both shoulders 04/06/2022 Seeing anahi ortho Rectocele 04/19/2007 Renal cyst 07/13/2016 Right knee pain Situational mixed anxiety and depressive disorder 11/12/2017 Thoracic aortic aneurysm without rupture (HCC) 2018 Urge incontinence 04/19/2007 Vitamin D deficiency 07/23/2012 Well adult exam 06/13/2021 Last done: 06/13/2021 PAST SURGICAL HISTORY Procedure Laterality Date APPENDECTOMY 1987 COLONOSCOPY 08/19/2013 COLONOSCOPY FLX DX W/COLLJ SPEC WHEN PFRMD 09/19/2019 Colonoscopy COLONOSCOPY SCREENING 05/05/2022 repeat in 5 years COLONOSCOPY W/BIOPSY SINGLE/MULTIPLE 03/15/2009 minimal colitis-repeat in COLPOSCOPY CERVIX UPPER/ADJACENT VAGINA Colposcopy DILATION AND CURETTAGE DXAND/THER NONOBSTETRIC 2002 Dilation AND curettage EGD 05/05/2022 mild gastritis ESOPHAGOGASTRODUODENOSCOPY TRANSORAL DIAGNOSTIC 09/19/2019 EGD LIG/TRNSXJ FLP TUBE ABDL/VAG APPR UNI/BI [id number] Tubal ligation PAST SURGICAL HISTORY OF 2000 BRAIN SURG/HYDROCEPHALIS - PAST SURGICAL HISTORY OF 2000 REPAIR TENNIS ELBOW PAST SURGICAL HISTORY OF 09/07/06, 05/10,11/08 repair rotator cuff/tendon rt. shoulder PAST SURGICAL HISTORY OF 10/2017 ex lap, ALFRED PROCEDURE , COLOSTOMY PICC LINE INSERT/CONSULT 10/26/2017 REPAIR FIRST ABDOMINAL WALL HERNIA 04/05/2020 Hernia repair, incisional STEREOTACTIC LOCALIZATION BREAST BIOPSY 06/10/2015 right TUBAL LIGATION HX 1989 and 1991 VAGINAL HYSTERECTOMY UTERUS 250 GM/< 09/04/2008 Hysterectomy, vaginal/TVT Social History Tobacco Use Smoking status: Former Packs/day: 0.10 Years: 2.00 Pack years: 0.20 Types: Cigarettes Quit date: 04/26/2010 Years since quittin.5 Smokeless tobacco: Never Tobacco comments: half a pack a week, hasn't smoked since 05/2009 Vaping Use Vaping Use: Never used Substance Use Topics Alcohol use: Yes Comment: occasionally, several times a month glass of wine or mixed drink Drug use: No Current Outpatient Medications Medication Sig cyclobenzaprine (FLEXERIL) 10 mg tablet Take 1 tablet by mouth three times daily as needed for muscle spasm. FLUoxetine (PROZAC) 20 mg capsule Take 1 capsule by mouth once daily. sucralfate (CARAFATE) 1 gram tablet Take 1 tablet by mouth before meals and at bedtime. traZODone (DESYREL) 100 mg tablet Take 2 tablets by mouth daily at bedtime. hydrOXYzine HCl (ATARAX) 10 mg tablet Take 1 tablet by mouth three times daily as needed. atorvastatin (LIPITOR) 40 mg tablet Take 1 tablet by mouth daily at bedtime. For cholesterol. cetirizine (ZYRTEC) 10 mg tablet Take 10 mg by mouth once daily. azelastine (ASTELIN, ASTEPRO) 0.1% nasal spray Use 2 Sprays in each nostril twice daily as needed. metoprolol succinate ER (TOPROL XL) 50 mg 24 hr tablet Take 2 tablets by mouth once daily. CPAP Lifetime supplies for AutoPAP 6-11 cm H20 including mask, heated tubing, humidity, filters. Fax 30 day download report (more content not included)... [facility] 11-13-2022 Note HNO ID: [id number] Author: Ace Cooper Service: ? Author Type: Cot Assembler Type: Progress Notes Filed: 11/13/2022 10:03 AM Note Text: REVIEW OF SYSTEMS: GENERAL: Well developed, well nourished. No acute distress PAIN: Pain yes CARDIOVASCULAR: Negative for chest pain, leg swelling and palpations. MSK: Negative for joint swelling SKIN: Negative for lesions, rash, itching, metal sensitivity NEURO: Numbness/tingling of extremties ENDOCRINE: Negative for diabetic associated symptoms HEMATOLOGY: Negative for excessive bleeding, clots, bleeding disorders. [facility] 11-13-2022 Instructions Jeff Story DO - 11/13/2022 9:59 AM EDT Kristina has a difficult combination of issues. She has polyarthralgia issues and global weakness/deconditioning. This could be because of the hip, knee, and back issues combined with a long COVID problem. At this time, I cannot rule out a systemic issue such as an autoimmune issue. Fibromyalgia also plays a role in her pain. I do think that meeting with a naprapath for further evaluation and discussion of medication is an appropriate treatment for her. I do think her right hip arthritis plays a major role with her right hip and leg pain as well as dysfunction and weakness. I will set her up for a intra-articular hip injection for therapeutic and diagnostic purposes. I will see her back afterwards to discuss how much this has helped. If it does not help significantly I would have much greater concern that severe nerve impingement of the lumbar spine plays a large role with this pain and weakness and would likely get MRI of the lumbar spine for further evaluation. I do encourage her to set up consultations with pain management group to discuss the possibility of injections or other procedures for her lumbar spine. documented in this encounter [facility] 11-13-2022 History of Present illness Narrative HPI: Kristina Macario is a 62 year old female who presents today with low back pain. assisted issues. Left hip SHUBHAM. Right hip pain and low back pain. Knee also having issues but needs to figure out back issues first and wants to be able to walk better and not have to use cane. Not working because of pain and long COVID issues. Injections in the past helped. Goes to see [place] pain mgmt today. PAST MEDICAL HISTORY Diagnosis Date Abnormal mammogram Advance directive discussed with patient 04/06/2022 Discussed 04/06/2022 Arthritis of knee, left 01/31/2013 Arthritis of left hip 01/19/2016 Ascending aorta dilatation (HCC) 07/04/2017 04/19/16: 4.2 cm 06/11/17: 4.4 cm 06/24/18 4.4 cm Cervical high risk human papillomavirus (HPV) DNA test positive 05/27/2008 Chronic anxiety 06/01/2021 Chronic diarrhea 12/09/2018 Chronic hypoxemic respiratory failure (HCC) 09/06/2021 resolved Chronic prescription benzodiazepine use 06/01/2021 DDD (degenerative disc disease), lumbar 07/24/[address] Jose Raul Camarena Essential tremor 04/06/2022 Ex-smoker 04/06/2022 Excessive or frequent menstruation Heavy periods Fibromyalgia 02/26/2014 Hemorrhage of gastrointestinal tract, unspecified History of COVID-19 06/13/202105/2021 Hydrocephalus, adult (HCC) 02/09/2003 Hypertension, essential 01/22/2019 Living will on file 04/06/2022 DPA: Victoriano () Lung nodule 01/24/2022 Seeing pulm Migraines 07/26/2021 Used to see neuro and was getting Botox Mild dysplasia of cervix 2006 Mixed hyperlipidemia 01/20/2016 Nonrheumatic mitral valve disorder, unspecified 04/06/2016 Obstructive sleep apnea 10/13/2016 DME - [facility] Plantar fasciitis 2018 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 Babs Guerra Postcoital bleeding Primary insomnia 06/13/2021 Primary osteoarthritis of both shoulders 04/06/2022 Seeing anahi camarena Rectocele 04/19/2007 Renal cyst 07/13/2016 Right knee pain Situational mixed anxiety and depressive disorder 11/12/2017 Thoracic aortic aneurysm without rupture (HCC) 2018 Urge incontinence 04/19/2007 Vitamin D deficiency 07/23/2012 Well adult exam 06/13/2021 Last done: 06/13/2021 PAST SURGICAL HISTORY Procedure Laterality Date APPENDECTOMY 1987 COLONOSCOPY 08/19/2013 COLONOSCOPY FLX DX W/COLLJ SPEC WHEN PFRMD 09/19/2019 Colonoscopy COLONOSCOPY SCREENING 05/05/2022 repeat in 5 years COLONOSCOPY W/BIOPSY SINGLE/MULTIPLE 03/15/2009 minimal colitis-repeat in COLPOSCOPY CERVIX UPPER/ADJACENT VAGINA Colposcopy DILATION & CURETTAGE DX&/THER NONOBSTETRIC 2003 Dilation & curettage EGD 05/05/2022 mild gastritis ESOPHAGOGASTRODUODENOSCOPY TRANSORAL DIAGNOSTIC 09/19/2019 EGD LIG/TRNSXJ FLP TUBE ABDL/VAG APPR UNI/BI 1989&1991 Tubal ligation PAST SURGICAL HISTORY OF 2000 BRAIN SURG/HYDROCEPHALIS - PAST SURGICAL HISTORY OF 2000 REPAIR TENNIS ELBOW PAST SURGICAL HISTORY OF 09/07/06, 05/10,11/08 repair rotator cuff/tendon rt. shoulder PAST SURGICAL HISTORY OF 10/2017 ex lap, ALFRED PROCEDURE , COLOSTOMY PICC LINE INSERT/CONSULT 10/26/2017 REPAIR FIRST ABDOMINAL WALL HERNIA 04/05/2020 Hernia repair, incisional STEREOTACTIC LOCALIZATION BREAST BIOPSY 06/10/2015 right TUBAL LIGATION HX 1989 and 1991 VAGINAL HYSTERECTOMY UTERUS 250 GM/< 09/04/2008 Hysterectomy, vaginal/TVT Social History Tobacco Use Smoking status: Former Packs/day: 0.10 Years: 2.00 Pack years: 0.20 Types: Cigarettes Quit date: 04/26/2010 Years since quittin.5 Smokeless tobacco: Never Tobacco comments: half a pack a week, hasn't smoked since 05/2009 Vaping Use Vaping Use: Never used Substance Use Topics Alcohol use: Yes Comment: occasionally, several times a month glass of wine or mixed drink Drug use: No Current Outpatient Medications Medication Sig cyclobenzaprine (FLEXERIL) 10 mg tablet Take 1 tablet by mouth three times daily as needed for muscle spasm. FLUoxetine (PROZAC) 20 mg capsule Take 1 capsule by mouth once daily. sucralfate (CARAFATE) 1 gram tablet Take 1 tablet by mouth before meals and at bedtime. traZODone (DESYREL) 100 mg tablet Take 2 tablets by mouth daily at bedtime. hydrOXYzine HCl (ATARAX) 10 mg tablet Take 1 tablet by mouth three times daily as needed. atorvastatin (LIPITOR) 40 mg tablet Take 1 tablet by mouth daily at bedtime. For cholesterol. cetirizine (ZYRTEC) 10 mg tablet Take 10 mg by mouth once daily. azelastine (ASTELIN, ASTEPRO) 0.1% nasal spray Use 2 Sprays in each nostril twice daily as needed. metoprolol succinate ER (TOPROL XL) 50 mg 24 hr tablet Take 2 tablets by mouth once daily. CPAP Lifetime supplies for AutoPAP 6-11 cm H20 including mask, heated tubing, humidity, filters. Fax 30 day download report to [phone] to assess residual ahi. meloxicam (MOBIC) 15 mg tablet Take 1 tablet by mouth once daily. Take with food. fluticasone (FLONASE) 50 mcg/actuation nasal spray Use 2 Sprays in each nostril once daily. Rinse mouth after use. vit C-Zn gluc-herbal no.325 (ELDERBERRY ZINC VIT C) 90-15 mg lozg Use 1 Lozenge as instructed twice daily. losartan (COZAAR) 50 mg tablet 50 mg once daily. calcium carbonate (CALTRATE 600 ORAL) Take 1 tablet by mouth once daily. multivitamin tablet Take 1 tablet by mouth once daily. BIOTIN ORAL Take 1 tablet by mouth once daily. Cholecalciferol, Vitamin D3, 2,000 unit cap Take 10,000 Units by mouth once daily. omeprazole (PRILOSEC) 40 mg capsule Take 1 capsule by mouth once daily. No current facility-administered medications for this visit. ALLERGIES Allergen Reactions Dilaudid [Hydromorp* Other: See Comments Pt states she hallucinates Sulfa (Sulfonamide * Rash Ultram [Tramadol Hc* GI Upset Pt. tried again on 02-13 and became very ill with GI issues Oxycontin [Oxycodon* Swelling Relafen [Nabumetone] GI Upset Sertraline Other: See Comments Tremors right upper extremity. Resp 18 Ht 5' 8.5 (1.74m) Wt 188 lb (85.3kg) LMP 08/04/2008 BMI 28.17 kg/(m^2). EXAM: Examination of lumbar spine reveals tenderness to palpation. Tenderness in the gluteal muscle. There is a very positive and painful response to right leg slump testing. Right hip flexion is significantly weak and limited actively. Passively there is greater hip flexion motion. Severe sharp pain in the anterior and posterior hip with seated internal rotation movements. Very antalgic gait and slow even with cane assistance. Normal pulses ASSESSMENT: (M54.41, G89.29) Chronic right-sided low back pain with right-sided sciatica (primary encounter diagnosis) (M16.11) Primary osteoarthritis of right hip (M25.50) Polyarthralgia (M79.7) Fibromyalgia PLAN: Kristina has a difficult combination of issues. She has polyarthralgia issues and global weakness/deconditioning. This could be because of the hip, knee, and back issues combined with a long COVID problem. At this time, I cannot rule out a systemic issue such as an autoimmune issue. Fibromyalgia also plays a role in her pain. I do think that meeting with a naprapath for further evaluation and discussion of medication is an appropriate treatment for her. I do think her right hip arthritis plays a major role with her right hip and leg pain as well as dysfunction and weakness. I will set her up for a intra-articular hip injection for therapeutic and diagnostic purposes. I will see her back afterwards to discuss how much this has helped. If it does not help significantly I would have much greater concern that severe nerve impingement of the lumbar spine plays a large role with this pain and weakness and would likely get MRI of the lumbar spine for further evaluation. I do encourage her to set up consultations with pain management group to discuss the possibility of injections or other procedures for her lumbar spine. Total of 45 minutes spent with this patient of which greater than 50% time spent in direct patient contact and coordination of care. Jfef Story DO REVIEW OF SYSTEMS: GENERAL: Well developed, well nourished. No acute distress PAIN: Pain yes CARDIOVASCULAR: Negative for chest pain, leg swelling and palpations. MSK: Negative for joint swelling SKIN: Negative for lesions, rash, itching, metal sensitivity NEURO: Numbness/tingling of extremties ENDOCRINE: Negative for diabetic associated symptoms HEMATOLOGY: Negative for excessive bleeding, clots, bleeding disorders. documented in this encounter [facility] 11-07-2022 Note HNO ID: [id number] Author: Beto Franz MD Service: ? Author Type: Physician Type: Progress Notes Filed: 11/07/2022 8:50 AM Note Text: HISTORY OF PRESENT ILLNESS: Patient is here for follow-up of her right knee. She is status post corticosteroid injection back about 6 weeks ago. Patient reports that the injection helped for about a week. She is dealing more with a back issue at this point in time. She has been having pain in her right lower lumbar region with some radiation down her right lower extremity. No bowel or bladder complaints. She has had back issues in the past. She has been in pain management. Patient reports a shooting sharp pain down her right lower extremity. No fever chills night sweats weight loss or other constitutional symptoms. Quantitates her pain is a 5 out of 10. REVIEW OF SYSTEMS: See chart PHYSICAL EXAM: Physical examination reveals patient is alert and oriented no acute distress. She has a cane for amatory purposes. She has a antalgic gait. She has pain palpation along the lower lumbar region on the right side. She has valgus malalignment of her knee. Some pain palpation along the lateral joint line. Small effusion. Good pulses good sensation distally. She has good strength in her lower extremities bilaterally. IMPRESSION: Problem List/Diagnoses: Spinal stenosis, lumbar region, without neurogenic claudication (primary encounter diagnosis) Primary osteoarthritis of both knees TREATMENT AND PAIN MANAGEMENT PLAN: I had a long discussion with the patient here today I did give her a prescription for physical therapy to work on her lumbar spine. We will have her see Dr. Nolen for evaluation and management of her lumbar and hip pain. I will see her back once this has improved. Any issues in the future she is given call otherwise I will see her back in as-needed basis peer Beto Franz MD [facility] 11-07-2022 History of Present illness Narrative HISTORY OF PRESENT ILLNESS: Patient is here for follow-up of her right knee. She is status post corticosteroid injection back about 6 weeks ago. Patient reports that the injection helped for about a week. She is dealing more with a back issue at this point in time. She has been having pain in her right lower lumbar region with some radiation down her right lower extremity. No bowel or bladder complaints. She has had back issues in the past. She has been in pain management. Patient reports a shooting sharp pain down her right lower extremity. No fever chills night sweats weight loss or other constitutional symptoms. Quantitates her pain is a 5 out of 10. REVIEW OF SYSTEMS: See chart PHYSICAL EXAM: Physical examination reveals patient is alert and oriented no acute distress. She has a cane for amatory purposes. She has a antalgic gait. She has pain palpation along the lower lumbar region on the right side. She has valgus malalignment of her knee. Some pain palpation along the lateral joint line. Small effusion. Good pulses good sensation distally. She has good strength in her lower extremities bilaterally. IMPRESSION: Problem List/Diagnoses: Spinal stenosis, lumbar region, without neurogenic claudication (primary encounter diagnosis) Primary osteoarthritis of both knees TREATMENT AND PAIN MANAGEMENT PLAN: I had a long discussion with the patient here today I did give her a prescription for physical therapy to work on her lumbar spine. We will have her see Dr. Nolen for evaluation and management of her lumbar and hip pain. I will see her back once this has improved. Any issues in the future she is given call otherwise I will see her back in as-needed basis peer Beto Franz MD documented in this encounter [facility] 10-23-2022 Note [facility] 10-23-2022 History of Present illness Narrative POPULATION HEALTH NAVIGATION OUTREACH Action/[facility] [place] Support: Called pt to schedule an appt in Pain Management. m for pt to call [phone] for scheduling. Patient Identified by Name and : NO Outreach Outcome/Action Unable to reach patient: Left message Did you use a PCP flex slot to schedule this appointment? No Reason for Outreach Care Gap or Scheduling/Wellness visits Payer: Payor: HARJIT / Plan: HARJIT OAP / Product Type: Open Access / Care Gap Reviewed:: Specialty Scheduling Reminder: Reminder note to check Health Maintenance for items below Health Maintenance items due: COVID-19 VACCINE(1) Never done INFLUENZA(1) due on 05/04/2022 BP CONTROLLED (<130/80) due on 06/13/2022 Navigation Signature: Dixie Jackson October 23, 2022 3:30 PM documented in this encounter [facility] 10-18-2022 Miscellaneous Notes Spoke with patient and gave update. Patient would like to see Dr. Bustillos. Information faxed to that office. Francine Ortiz MA Consult order to pain management placed. Last OV: 10/09/22. Pt is calling to request a referral to Pain Management for lower back, right hip and knee pain. Pt reports nothing helps with the pain. Pt was prescribed prednisone taper on 10/09 and pt reports that has not helped either. Call pt when referral has been placed. Paulina Jalloh LPN documented in this encounter [facility] 10-11-2022 Miscellaneous Notes Patient notified of results, verbalizes understanding of instructions. Tati Richter LPN WBC elevated but likely due to current strep infection. A1c is 5.8% which is prediabetes but overall stable. Cholesterol is okay however has increased some. Watch diet. Edwina Khoury PA-C Please review results and advise. documented in this encounter [facility] 10-09-2022 Note [facility] 10-09-2022 Instructions Edwina Khoury PA-C - 10/09/2022 1:52 PM EST Please contact cardiology for test results. documented in this encounter [facility] 10-09-2022 History of Present illness Narrative Chief Complaint Patient presents with: Follow Up: 6 mth FU. C/o sore throat, bilat ear pain & congestion since yesterday. HPI Kristina Macario is a 62 year old female who presents here today for Chronic Medical Conditions.. Patient with hx of hyperlipidemia, HTN, thoracic aortic aneurysm, aorta dilatation, aortic regurg, HUBER, anxiety/depression, vit d def. Fibro, insomnia, hydrocephalus and those as below. Patient states that last night she started noting some ST, ear pain and congestion. No fever at home. No myalgia. +headache. She also c/o continue MONTERROSO and fatigue. Has seen cardiology. She had stress testing and echo done. Patient cannot tell me if cardiology has contacted her in regards to results. Also has seen pulm over the past year. No further recommendation was given. Past medical history, appointments, medications, allergies reviewed. Previous Medical History PAST MEDICAL HISTORY Diagnosis Date Abnormal mammogram Advance directive discussed with patient 04/06/2022 Discussed 04/06/2022 Arthritis of knee, left 01/31/2013 Arthritis of left hip 01/19/2016 Ascending aorta dilatation (HCC) 07/04/2017 04/19/16: 4.2 cm 06/11/17: 4.4 cm 06/24/18 4.4 cm Cervical high risk human papillomavirus (HPV) DNA test positive 05/27/2008 Chronic anxiety 06/01/2021 Chronic diarrhea 12/09/2018 Chronic hypoxemic respiratory failure (HCC) 09/06/2021 resolved Chronic prescription benzodiazepine use 06/01/2021 DDD (degenerative disc disease), lumbar 07/24/[address] Jose Raul [facility] Essential tremor 04/06/2022 Ex-smoker 04/06/2022 Excessive or frequent menstruation Heavy periods Fibromyalgia 02/26/2014 Hemorrhage of gastrointestinal tract, unspecified History of COVID-19 06/13/202105/2021 Hydrocephalus, adult (HCC) 02/09/2003 Hypertension, essential 01/22/2019 Living will on file 04/06/2022 DPA: Victoriano () Lung nodule 01/24/2022 Seeing pulm Migraines 07/26/2021 Used to see neuro and was getting Botox Mild dysplasia of cervix 2006 Mixed hyperlipidemia 01/20/2016 Nonrheumatic mitral valve disorder, unspecified 04/06/2016 Obstructive sleep apnea 10/13/2016 DME - [facility] Plantar fasciitis 2018 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 Babs Guerra Postcoital bleeding Primary insomnia 06/13/2021 Primary osteoarthritis of both shoulders 04/06/2022 Seeing anahi camarena Rectocele 04/19/2007 Renal cyst 07/13/2016 Right knee pain Situational mixed anxiety and depressive disorder 11/12/2017 Thoracic aortic aneurysm without rupture 2018 Urge incontinence 04/19/2007 Vitamin D deficiency 07/23/2012 Well adult exam 06/13/2021 Last done: 06/13/2021 Previous Surgical History PAST SURGICAL HISTORY Procedure Laterality Date APPENDECTOMY 1987 COLONOSCOPY 08/19/2013 COLONOSCOPY FLX DX W/COLLJ SPEC WHEN PFRMD 09/19/2019 Colonoscopy COLONOSCOPY SCREENING 05/05/2022 repeat in 5 years COLONOSCOPY W/BIOPSY SINGLE/MULTIPLE 03/15/2009 minimal colitis-repeat in COLPOSCOPY CERVIX UPPER/ADJACENT VAGINA Colposcopy DILATION & CURETTAGE DX&/THER NONOBSTETRIC 2003 Dilation & curettage EGD 05/05/2022 mild gastritis ESOPHAGOGASTRODUODENOSCOPY TRANSORAL DIAGNOSTIC 09/19/2019 EGD LIG/TRNSXJ FLP TUBE ABDL/VAG APPR UNI/BI 1989&1991 Tubal ligation PAST SURGICAL HISTORY OF 2000 BRAIN SURG/HYDROCEPHALIS - PAST SURGICAL HISTORY OF 2000 REPAIR TENNIS ELBOW PAST SURGICAL HISTORY OF 09/07/06, 05/10,11/08 repair rotator cuff/tendon rt. shoulder PAST SURGICAL HISTORY OF 10/2017 ex lap, ALFRED PROCEDURE , COLOSTOMY PICC LINE INSERT/CONSULT 10/26/2017 REPAIR FIRST ABDOMINAL WALL HERNIA 04/05/2020 Hernia repair, incisional STEREOTACTIC LOCALIZATION BREAST BIOPSY 06/10/2015 right TUBAL LIGATION HX 1989 and 1991 VAGINAL HYSTERECTOMY UTERUS 250 GM/< 09/04/2008 Hysterectomy, vaginal/TVT Family History FAMILY HISTORY Problem Relation Age of Onset Heart Mother skin cancer on nose Breast Cancer Mother Heart Father Hypertension Father Heart Maternal Grandmother Thyroid Sister Thyroid Paternal Aunt Patient Allergies ALLERGIES Allergen Reactions Dilaudid [Hydromorp* Other: See Comments Pt states she hallucinates Sulfa (Sulfonamide * Rash Ultram [Tramadol Hc* GI Upset Pt. tried again on 02-13 and became very ill with GI issues Oxycontin [Oxycodon* Swelling Relafen [Nabumetone] GI Upset Sertraline Other: See Comments Tremors right upper extremity. Current Medications Current Outpatient Medications on File Prior to Visit Medication Sig cyclobenzaprine (FLEXERIL) 10 mg tablet Take 1 tablet by mouth three times daily as needed for muscle spasm. FLUoxetine (PROZAC) 20 mg capsule Take 1 capsule by mouth once daily. traZODone (DESYREL) 100 mg tablet Take 2 tablets by mouth daily at bedtime. hydrOXYzine HCl (ATARAX) 10 mg tablet Take 1 tablet by mouth three times daily as needed. atorvastatin (LIPITOR) 40 mg tablet Take 1 tablet by mouth daily at bedtime. For cholesterol. cetirizine (ZYRTEC) 10 mg tablet Take 10 mg by mouth once daily. azelastine (ASTELIN, ASTEPRO) 0.1% nasal spray Use 2 Sprays in each nostril twice daily as needed. metoprolol succinate ER (TOPROL XL) 50 mg 24 hr tablet Take 2 tablets by mouth once daily. CPAP Lifetime supplies for AutoPAP 6-11 cm H20 including mask, heated tubing, humidity, filters. Fax 30 day download report to [phone] to assess residual ahi. meloxicam (MOBIC) 15 mg tablet Take 1 tablet by mouth once daily. Take with food. fluticasone (FLONASE) 50 mcg/actuation nasal spray Use 2 Sprays in each nostril once daily. Rinse mouth after use. vit C-Zn gluc-herbal no.325 (ELDERBERRY ZINC VIT C) 90-15 mg lozg Use 1 Lozenge as instructed twice daily. losartan (COZAAR) 50 mg tablet 50 mg once daily. calcium carbonate (CALTRATE 600 ORAL) Take 1 tablet by mouth once daily. multivitamin tablet Take 1 tablet by mouth once daily. BIOTIN ORAL Take 1 tablet by mouth once daily. Cholecalciferol, Vitamin D3, 2,000 unit cap Take 10,000 Units by mouth once daily. predniSONE (DELTASONE) 20 mg tablet 3 tabs a day by mouth for the next 5 days (Patient not taking: Reported on 10/09/2022) sucralfate (CARAFATE) 1 gram tablet Take 1 tablet by mouth before meals and at bedtime. (Patient not taking: Reported on 10/09/2022) omeprazole (PRILOSEC) 40 mg capsule Take 1 capsule by mouth once daily. No current facility-administered medications on file prior to visit. Social History Social History Tobacco Use Smoking status: Former Packs/day: 0.10 Years: 2.00 Pack years: 0.20 Types: Cigarettes Quit date: 04/26/2010 Years since quittin.4 Smokeless tobacco: Never Tobacco comments: half a pack a week, hasn't smoked since 05/2009 Vaping Use Vaping Use: Never used Substance Use Topics Alcohol use: Yes Comment: occasionally, several times a month glass of wine or mixed drink Drug use: No Review of Symptoms REVIEW OF SYSTEMS See HPI EXAM: BP 136/78 Pulse 95 Temp 37.7 C (99.9 F) (Tympanic) Resp 18 Wt 87.1 kg (192 lb) LMP 08/04/2008 SpO2 95% BMI 28.77 kg/m General Appearance: Well appearing, alert, in no acute distress, well-hydrated, well nourished.. Head: Normocephalic, no masses, lesions, tenderness or abnormalities. Eyes: Anicteric sclera. Pupils are equally round and reactive to light. Extraocular movements are intact. . Ears: TMs bulging. No redness. Distorted light reflex, External ears normal, canals clear. Nose/Sinuses: Nares normal, septum midline, mucosa normal, no drainage or sinus tenderness. Oropharynx: Positive findings: tonsilar enlargement with exudate noted. . Neck: tender lymphadenopathy noted. . Lungs: Lungs clear to auscultation. No wheezing, rhonchi, rales.. Heart: RRR without murmur, gallop, or rubs. No ectopy. Extremities: No deformities, edema, skin discoloration, clubbing or cyanosis. Good capillary refill. . Peripheral Pulses: Normal. MSK: +SI joint pain to palp. Neg SLR. Health Maintenance List COVID-19 VACCINE(1) Never done INFLUENZA(1) due on 05/04/2022 BP CONTROLLED (<130/80) due on 06/13/2022 SHINGRIX VACCINE(1 of 2) due on 04/06/2023 MAMMOGRAM due on 04/27/2023 ANNUAL PCP TEAM CHRONIC DISEASE VISIT due on 08/21/2023 DIABETES SCREEN due on 05/16/2025 LIPID SCREEN due on 04/19/2027 COLORECTAL CANCER SCREENING due on 05/05/2027 DTAP,TDAP,TD(5 - Td or Tdap) due on 03/12/2030 HEPATITIS C SCREENING Completed PAP TESTING Discontinued HPV TESTING Discontinued HIV SCREENING Discontinued Data reviewed N/a ASSESSMENT/PLAN: 1. Ascending aorta dilatation (HCC) - ICD9: 447.71, ICD10: I77.810 (primary diagnosis) Cont with cardio 2. Hydrocephalus, adult (HCC) - ICD9: 331.4, ICD10: G91.9 No new concerns 3. Hypertension, essential - ICD9: 401.9, ICD10: I10 - fair control - Continue current medication(s) - Recommended regular aerobic exercise. - Recommend home blood pressure monitoring, to bring results in on next visit - Goal of BP <130/80 - COMP METABOLIC PANEL 4. Mixed hyperlipidemia - ICD9: 272.2, ICD10: E78.2 - to be determined upon return of lab results - Encouraged following a low carbohydrate, healthy oil intake diet. - Continue current therapy. - LIPID PANEL, NONFASTING 5. Thoracic aortic aneurysm without rupture, unspecified part - ICD9: 441.2, ICD10: I71.20 Cont with cardio 6. Acute respiratory disease due to COVID-19 virus - ICD9: 465.9, 079.89, ICD10: U07.1, J06.9 7. Gastroesophageal reflux disease, unspecified whether esophagitis present - ICD9: 530.81, ICD10: K21.9 - stable 8. Situational mixed anxiety and depressive disorder - ICD9: 309.28, ICD10: F43.23 stable 9. Vitamin D deficiency - ICD9: 268.9, ICD10: E55.9 10. Fatigue, unspecified type - ICD9: 780.79, ICD10: R53.83 Check: - TSH BLD - CBC + DIFF - VITAMIN B12 BLOOD - T4 FREE/FREE THYROX 11. Screening for diabetes mellitus - ICD9: V77.1, ICD10: Z13.1 - HGB A1C 12. Pharyngitis, unspecified etiology - ICD9: 462, ICD10: J02.9 - Rapid Strep positive in the office today - antibiotic as written and Amoxicillin for 10 days. - The patient should follow up in 3-5 days if symptoms persist or worsen - STREP A MOLECULAR (POC) - COVID WITH FLUA+B, ROUTINE 13. Sciatica, right side - ICD9: 724.3, ICD10: M54.31 Start pred taper. Follow up if not improving. Follow up routine in 6 months. Sooner prn. Edwina Khoury PA-C documented in this encounter [facility] 09-05-2022 Note HNO ID: [id number] Author: Bambi Sosa LPN Service: ? Author Type: ? Type: Progress Notes Filed: 09/05/2022 9:49 AM Note Text: Injection prepared per Dr. Franz' order and handed directly to him. Bambi Sosa LPN [facility] 09-05-2022 Note HNO ID: [id number] Author: Beto Franz MD Service: ? Author Type: Physician Type: Progress Notes Filed: 09/05/2022 9:49 AM Note Text: Chief Complaint: Bilateral knee pain Consuting Physician: History: Kristina is a 62 year old female who presents with a longstanding history of bilateral knee pain. She denies any traumatic history but more of an insidious onset of pain. Patient reports that her right knee is worse than the left knee. The pain is located along the general region of the knee. The pain is non-radiating and intermittent in nature. The pain is worse in the morning and after activities such as prolonged ambulation and standing. The pain is typically dull but can be sharp at times. she reports occasional night pain. Stiffness is noted especially in the am and with prolonged sitting activities. Clicking and popping are noted but no locking or catching. she has tried Tylenol with minimal success. No pain in the hip, back or groin region. No numbness and tingling down the extremity. No fevers, chills, night sweats or other constitutional symptoms. Occasional swelling is experienced. There are no symptoms of infection or deep venous thrombosis. She quantitates the pain as 2/10, 5/10. She reports that her ADL?s have been affected adversely secondary to her knee pain. Review Of Systems: GENERAL: Well developed, well nourished. No acute distress PAIN: Chronic Pain history of fibromyalgia CARDIOVASCULAR: History of aortic aneurysm MSK: Negative for joint pain, swelling, back pain, muscle pain. SKIN: Negative for lesions, rash, itching, metal sensitivity NEURO: Negative for seizure, trauma, numbness/tingling of extremities. ENDOCRINE: Negative for Diabetes Type 1 and Type 2 HEMATOLOGY: Negative for excessive bleeding, clots, bleeding disorders. Physical Examination: Kristina is alert and oriented and in no acute distress. She exhibits an antalgic gait. She has evidence of (varus/ valgus) malalignment of her bilateral knee(s). Skin is intact bilaterally. The patient lacks 3 degrees of full extension of the bilateral knee(s) and lacks 5-7 degrees of flexion as well. She has evidence of a Small) effusion. She has evidence of patellofemoral crepitation with ROM. There is some pain with palpation along the medial and lateral facets of the patella. She has pain along the medial and lateral joint lines. A negative Gato?s is noted. Negative anterior and posterior drawers are seen. She has good stability with varus and valgus stress at 0 and 30 degrees. No increase in ER is seen at 30 or 90 degrees. Full ROM of both hips and ankles are noted. She has 5/5 motor strength with downgoing Babinski?s and symmetric reflexes. Good pulses and cap refill are seen. Gross sensation intact. X-ray Evaluation: Standing 45 degree weight bearing, merchant and lateral radiographs of the bilateral knee (s) were ordered, taken and reviewed today. The radiographs show Valgus malalignment and severe joint space narrowing in her right knee especially along the lateral and patellofemoral joint lines with osteophytic spurring, and sclerosis. The patellae are located in the trochlea but also show signs of sclerosis, and joint space narrowing. No signs of fracture, avulsion or dislocation. No overt signs of bony tumor. Assessment: Primary osteoarthritis of both knees (primary encounter diagnosis) Pes anserine bursitis Plan: The patient understands the diagnosis, treatment options and indications for both operative and non-operative, their associated risks, complications, benefits, outcomes, rehabilitation and failures. It was decided to proceed with a nonoperative treatment option consisting of NSAID?s and a physical therapy program emphasizing quadricep strengthening, stretching and ROM. Injection performed as detailed below: Large Joint Arthro/Inj: R knee joint 09/05/2022 9:48 AM The procedure site was prepped in the usual sterile fashion. Site: R knee joint Medications: 80 mg triamcinolone acetonide 40 mg/mL Anesthetics: 5 mL lidocaine (PF) 10 mg/mL (1 %) Outcome: Tolerated well, no immediate complications Post-injection instructions were reviewed with the patient and the patient voiced understanding of these instructions. An anti-inflammatory medication was recommended with informed consent. Explanation of the risks, benefits, complications and alternative treatment were explained. The risks that were explained included but were not limited to: GI disturbance as serious as GI bleed and Liver damage Kidney damages including renal failure. He was also told that if any unusual symptoms develop, that the medication should be stopped immediately and that their primary care physician as well as our office should be notified. If they take this medication assisted, they understand the need for medication monitoring through their primary care physician. He is aware of th (more content not included)... [facility] 09-05-2022 Miscellaneous Notes Addended by: BETO FRANZ on: 09/05/2022 09:52 AM Modules accepted: Orders documented in this encounter [facility] 09-05-2022 History of Present illness Narrative Injection prepared per Dr. Franz' order and handed directly to him. Bambi Sosa LPN Associated Order(s): Large Joint Arthro/Inj: R knee joint Post-Procedure Diagnose(s): Primary osteoarthritis of both knees Chief Complaint: Bilateral knee pain Consuting Physician: History: Kristina is a 62 year old female who presents with a longstanding history of bilateral knee pain. She denies any traumatic history but more of an insidious onset of pain. Patient reports that her right knee is worse than the left knee. The pain is located along the general region of the knee. The pain is non-radiating and intermittent in nature. The pain is worse in the morning and after activities such as prolonged ambulation and standing. The pain is typically dull but can be sharp at times. she reports occasional night pain. Stiffness is noted especially in the am and with prolonged sitting activities. Clicking and popping are noted but no locking or catching. she has tried Tylenol with minimal success. No pain in the hip, back or groin region. No numbness and tingling down the extremity. No fevers, chills, night sweats or other constitutional symptoms. Occasional swelling is experienced. There are no symptoms of infection or deep venous thrombosis. She quantitates the pain as 2/10, 5/10. She reports that her ADL s have been affected adversely secondary to her knee pain. Review Of Systems: GENERAL: Well developed, well nourished. No acute distress PAIN: Chronic Pain history of fibromyalgia CARDIOVASCULAR: History of aortic aneurysm MSK: Negative for joint pain, swelling, back pain, muscle pain. SKIN: Negative for lesions, rash, itching, metal sensitivity NEURO: Negative for seizure, trauma, numbness/tingling of extremities. ENDOCRINE: Negative for Diabetes Type 1 and Type 2 HEMATOLOGY: Negative for excessive bleeding, clots, bleeding disorders. Physical Examination: Kristina is alert and oriented and in no acute distress. She exhibits an antalgic gait. She has evidence of (varus/ valgus) malalignment of her bilateral knee(s). Skin is intact bilaterally. The patient lacks 3 degrees of full extension of the bilateral knee(s) and lacks 5-7 degrees of flexion as well. She has evidence of a Small) effusion. She has evidence of patellofemoral crepitation with ROM. There is some pain with palpation along the medial and lateral facets of the patella. She has pain along the medial and lateral joint lines. A negative Gato s is noted. Negative anterior and posterior drawers are seen. She has good stability with varus and valgus stress at 0 and 30 degrees. No increase in ER is seen at 30 or 90 degrees. Full ROM of both hips and ankles are noted. She has 5/5 motor strength with downgoing Babinski s and symmetric reflexes. Good pulses and cap refill are seen. Gross sensation intact. X-ray Evaluation: Standing 45 degree weight bearing, merchant and lateral radiographs of the bilateral knee (s) were ordered, taken and reviewed today. The radiographs show Valgus malalignment and severe joint space narrowing in her right knee especially along the lateral and patellofemoral joint lines with osteophytic spurring, and sclerosis. The patellae are located in the trochlea but also show signs of sclerosis, and joint space narrowing. No signs of fracture, avulsion or dislocation. No overt signs of bony tumor. Assessment: Primary osteoarthritis of both knees (primary encounter diagnosis) Pes anserine bursitis Plan: The patient understands the diagnosis, treatment options and indications for both operative and non-operative, their associated risks, complications, benefits, outcomes, rehabilitation and failures. It was decided to proceed with a nonoperative treatment option consisting of NSAID s and a physical therapy program emphasizing quadricep strengthening, stretching and ROM. Injection performed as detailed below: Large Joint Arthro/Inj: R knee joint 09/05/2022 9:48 AM The procedure site was prepped in the usual sterile fashion. Site: R knee joint Medications: 80 mg triamcinolone acetonide 40 mg/mL Anesthetics: 5 mL lidocaine (PF) 10 mg/mL (1 %) Outcome: Tolerated well, no immediate complications Post-injection instructions were reviewed with the patient and the patient voiced understanding of these instructions. An anti-inflammatory medication was recommended with informed consent. Explanation of the risks, benefits, complications and alternative treatment were explained. The risks that were explained included but were not limited to: GI disturbance as serious as GI bleed and Liver damage Kidney damages including renal failure. He was also told that if any unusual symptoms develop, that the medication should be stopped immediately and that their primary care physician as well as our office should be notified. If they take this medication assisted, they understand the need for medication monitoring through their primary care physician. He is aware of the potential risks and side effects of this medication as well as the expected benefits, and wishes to proceed with its use. He was advised to read and review the product insert and if they have any questions to contact us. Tylenol was recommended for pain control if tolerated. To be used as directed on the bottle. He will return for follow-up in 2 months. Beto Franz MD documented in this encounter [facility] 08-21-2022 Note [facility] 08-21-2022 Miscellaneous Notes Pt notified of same. Asmita Mason LPN Let patient know her flu and COVID tests were negative. documented in this encounter [facility] 08-21-2022 Instructions Selam Argueta APRN.CNP - 08/21/2022 9:11 AM EST Start cyclobenzaprine Continue current medications, complete antibiotics Follow up as scheduled. documented in this encounter [facility] 08-21-2022 History of Present illness Narrative Chief Complaint Patient presents with: Recheck: Bronchitis HPI Kristina Macario is a 62 year old female who presents here today for Above Complaints.. Patient here for follow up for bronchitis. Patient reports improvement with URI symptoms. Patient also reported UTI symptoms at that time. UA positive for small blood, trace protein, and moderate leukocytes. Continuing use of levaquin and prednisone. Patient c/o pain/muscle spasms in her back. Patient reports this started 2 days ago and she has been using a heating pad at home that is somewhat helpful. Patient reports that spasms start in mid back and extend down into her buttocks. Denies pain with urination, chest pain. Reports continued cough with white/yellow sputum, improving shortness of breath. Past medical history, appointments, medications, allergies reviewed. Previous Medical History PAST MEDICAL HISTORY Diagnosis Date Abnormal mammogram Advance directive discussed with patient 04/06/2022 Discussed 04/06/2022 Arthritis of knee, left 01/31/2013 Arthritis of left hip 01/19/2016 Ascending aorta dilatation (HCC) 07/04/2017 04/19/16: 4.2 cm 06/11/17: 4.4 cm 06/24/18 4.4 cm Cervical high risk human papillomavirus (HPV) DNA test positive 05/27/2008 Chronic anxiety 06/01/2021 Chronic diarrhea 12/09/2018 Chronic hypoxemic respiratory failure (HCC) 09/06/2021 resolved Chronic prescription benzodiazepine use 06/01/2021 DDD (degenerative disc disease), lumbar 07/24/[address] [facility] Essential tremor 04/06/2022 Ex-smoker 04/06/2022 Excessive or frequent menstruation Heavy periods Fibromyalgia 02/26/2014 Hemorrhage of gastrointestinal tract, unspecified History of COVID-19 06/13/202105/2021 Hydrocephalus, adult (HCC) 02/09/2003 Hypertension, essential 01/22/2019 Living will on file 04/06/2022 DPA: Victoriano () Lung nodule 01/24/2022 Seeing pulm Migraines 07/26/2021 Used to see neuro and was getting Botox Mild dysplasia of cervix 2006 Mixed hyperlipidemia 01/20/2016 Nonrheumatic mitral valve disorder, unspecified 04/06/2016 Obstructive sleep apnea 10/13/2016 DME - [facility] Plantar fasciitis 2018 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 Babs Guerra Postcoital bleeding Primary insomnia 06/13/2021 Primary osteoarthritis of both shoulders 04/06/2022 Seeing [facility] Rectocele 04/19/2007 Renal cyst 07/13/2016 Situational mixed anxiety and depressive disorder 11/12/2017 Thoracic aortic aneurysm without rupture 2018 Urge incontinence 04/19/2007 Vitamin D deficiency 07/23/2012 Well adult exam 06/13/2021 Last done: 06/13/2021 Previous Surgical History PAST SURGICAL HISTORY Procedure Laterality Date APPENDECTOMY 1987 COLONOSCOPY 08/19/2013 COLONOSCOPY FLX DX W/COLLJ SPEC WHEN PFRMD 09/19/2019 Colonoscopy COLONOSCOPY SCREENING 05/05/2022 repeat in 5 years COLONOSCOPY W/BIOPSY SINGLE/MULTIPLE 03/15/2009 minimal colitis-repeat in COLPOSCOPY CERVIX UPPER/ADJACENT VAGINA Colposcopy DILATION & CURETTAGE DX&/THER NONOBSTETRIC 2002 Dilation & curettage EGD 05/05/2022 mild gastritis ESOPHAGOGASTRODUODENOSCOPY TRANSORAL DIAGNOSTIC 09/19/2019 EGD LIG/TRNSXJ FLP TUBE ABDL/VAG APPR UNI/BI 1989&1991 Tubal ligation PAST SURGICAL HISTORY OF 2000 BRAIN SURG/HYDROCEPHALIS - PAST SURGICAL HISTORY OF 2000 REPAIR TENNIS ELBOW PAST SURGICAL HISTORY OF 09/07/06, 05/10,11/08 repair rotator cuff/tendon rt. shoulder PAST SURGICAL HISTORY OF 10/2017 ex lap, ALFRED PROCEDURE , COLOSTOMY PICC LINE INSERT/CONSULT 10/26/2017 REPAIR FIRST ABDOMINAL WALL HERNIA 04/05/2020 Hernia repair, incisional STEREOTACTIC LOCALIZATION BREAST BIOPSY 06/10/2015 right TUBAL LIGATION HX 1989 and 1991 VAGINAL HYSTERECTOMY UTERUS 250 GM/< 09/04/2008 Hysterectomy, vaginal/TVT Family History FAMILY HISTORY Problem Relation Age of Onset Heart Mother skin cancer on nose Breast Cancer Mother Heart Father Hypertension Father Heart Maternal Grandmother Thyroid Sister Thyroid Paternal Aunt Patient Allergies ALLERGIES Allergen Reactions Dilaudid [Hydromorp* Other: See Comments Pt states she hallucinates Sulfa (Sulfonamide * Rash Ultram [Tramadol Hc* GI Upset Pt. tried again on 02-13 and became very ill with GI issues Oxycontin [Oxycodon* Swelling Relafen [Nabumetone] GI Upset Sertraline Other: See Comments Tremors right upper extremity. Current Medications Current Outpatient Medications on File Prior to Visit Medication Sig levoFLOXacin (LEVAQUIN) 500 mg tablet Take 1 tablet by mouth once daily for 10 days. predniSONE (DELTASONE) 20 mg tablet 3 tabs a day by mouth for the next 5 days FLUoxetine (PROZAC) 20 mg capsule Take 1 capsule by mouth once daily. sucralfate (CARAFATE) 1 gram tablet Take 1 tablet by mouth before meals and at bedtime. traZODone (DESYREL) 100 mg tablet Take 2 tablets by mouth daily at bedtime. hydrOXYzine HCl (ATARAX) 10 mg tablet Take 1 tablet by mouth three times daily as needed. omeprazole (PRILOSEC) 40 mg capsule Take 1 capsule by mouth once daily. atorvastatin (LIPITOR) 40 mg tablet Take 1 tablet by mouth daily at bedtime. For cholesterol. cetirizine (ZYRTEC) 10 mg tablet Take 10 mg by mouth once daily. (Patient not taking: Reported on 08/18/2022) azelastine (ASTELIN, ASTEPRO) 0.1% nasal spray Use 2 Sprays in each nostril twice daily as needed. metoprolol succinate ER (TOPROL XL) 50 mg 24 hr tablet Take 2 tablets by mouth once daily. CPAP Lifetime supplies for AutoPAP 6-11 cm H20 including mask, heated tubing, humidity, filters. Fax 30 day download report to [phone] to assess residual ahi. meloxicam (MOBIC) 15 mg tablet Take 1 tablet by mouth once daily. Take with food. fluticasone (FLONASE) 50 mcg/actuation nasal spray Use 2 Sprays in each nostril once daily. Rinse mouth after use. vit C-Zn gluc-herbal no.325 (ELDERBERRY ZINC VIT C) 90-15 mg lozg Use 1 Lozenge as instructed twice daily. losartan (COZAAR) 50 mg tablet 50 mg once daily. calcium carbonate (CALTRATE 600 ORAL) Take 1 tablet by mouth once daily. multivitamin tablet Take 1 tablet by mouth once daily. BIOTIN ORAL Take 1 tablet by mouth once daily. Cholecalciferol, Vitamin D3, 2,000 unit cap Take 10,000 Units by mouth once daily. No current facility-administered medications on file prior to visit. Social History Social History Tobacco Use Smoking status: Former Packs/day: 0.10 Years: 2.00 Pack years: 0.20 Types: Cigarettes Quit date: 04/26/2010 Years since quittin.3 Smokeless tobacco: Never Tobacco comments: half a pack a week, hasn't smoked since 05/2009 Vaping Use Vaping Use: Never used Substance Use Topics Alcohol use: Yes Comment: occasionally, several times a month glass of wine or mixed drink Drug use: No Review of Symptoms REVIEW OF SYSTEMS SEE HPI EXAM: BP 136/70 Pulse (!) 50 Resp 16 Wt 89.8 kg (198 lb) LMP 08/04/2008 BMI 30.11 kg/m General Appearance: Well appearing, alert, in no acute distress, well-hydrated, well nourished.. Back:no pain to palpation of vertebrae, good flexion and extension, good range of motion, reflexes are 2+ and symmetric, motor and sensory appear to be normal, negative SLR test, no evidence of scoliosis. Pain with palpation of bilateral lower back with reported shooting pain down leg. Lungs: Lungs clear to auscultation. No wheezing, rhonchi, rales.. Heart: RRR without murmur, gallop, or rubs. No ectopy. Peripheral Pulses: Normal. Health Maintenance List COVID-19 VACCINE(1) Never done INFLUENZA(1) due on 05/04/2022 SHINGRIX VACCINE(1 of 2) due on 04/06/2023 MAMMOGRAM due on 04/27/2023 ANNUAL PCP TEAM CHRONIC DISEASE VISIT due on 08/18/2023 BP CONTROLLED (<130/80) due on 08/18/2023 DIABETES SCREEN due on 05/16/2025 LIPID SCREEN due on 04/19/2027 COLORECTAL CANCER SCREENING due on 05/05/2027 DTAP,TDAP,TD(5 - Td or Tdap) due on 03/12/2030 HEPATITIS C SCREENING Completed PAP TESTING Discontinued HPV TESTING Discontinued HIV SCREENING Discontinued ASSESSMENT/PLAN: 1. Acute bronchitis, unspecified organism - ICD9: 466.0, ICD10: J20.9 (primary diagnosis) -Continue current medications 2. Back spasm - ICD9: 724.8, ICD10: M62.830 -Cyclobenzaprine 10mg three times daily as needed -Apply heat to area for 20 minutes three times daily Selam Argueta APRN.[employer] documented in this encounter [facility] 08-18-2022 Instructions Ganga Sheppard MD - 08/18/2022 9:18 AM EST While you are on the Prednisone do not take the Mobic (meloxicam) documented in this encounter [facility] 08-18-2022 History of Present illness Narrative Chief Complaint Patient presents with: ED Follow-up HPI Kristina Macario is a 62 year old female who presents here today for ER Follow Up.. Patient is complain on chest pain; burning in lungs and UTI sx. Patient was seen in [facility] ER on 08/14/2022 with c/o URI symptoms with cough and fever that started Sunday. Did have a fever in the ER. Patient had CBC and electrolyte studies that were all normal along with a chest x-ray that was normal. Has chest pain with coughing and then a burning sensation. Her cough became productive on Sunday of green mucus. Temp high yesterday was 99. No chills. Ears hurt and throat is sore. Has nasal discharge that is clear to green. Has facial pain. No upper dental pain. Noticed blisters on her sides of her abdomen and in the left groin. Slightly irritating at times. Patient has also been having dysuria, frequency, urgency with occasional incontinence. Has noted some blood with wiping. Patient had to stop the sertraline due to getting a tremor in the right upper extremity. This did improve but now her anxiety is not being controlled. Patient would like to see a different orthopedist for her right knee pain and sensation of giving out. Past medical history, appointments, medications, allergies reviewed. Previous Medical History PAST MEDICAL HISTORY Diagnosis Date Abnormal mammogram Advance directive discussed with patient 04/06/2022 Discussed 04/06/2022 Arthritis of knee, left 01/31/2013 Arthritis of left hip 01/19/2016 Ascending aorta dilatation (HCC) 07/04/2017 04/19/16: 4.2 cm 06/11/17: 4.4 cm 06/24/18 4.4 cm Cervical high risk human papillomavirus (HPV) DNA test positive 05/27/2008 Chronic anxiety 06/01/2021 Chronic diarrhea 12/09/2018 Chronic hypoxemic respiratory failure (HCC) 09/06/2021 resolved Chronic prescription benzodiazepine use 06/01/2021 DDD (degenerative disc disease), lumbar 07/24/[address] Jose Raul Camarena Essential tremor 04/06/2022 Ex-smoker 04/06/2022 Excessive or frequent menstruation Heavy periods Fibromyalgia 02/26/2014 Hemorrhage of gastrointestinal tract, unspecified History of COVID-19 06/13/202105/2021 Hydrocephalus, adult ([facility]) 02/09/2003 Hypertension, essential 01/22/2019 Living will on file 04/06/2022 DPA: Victoriano () Lung nodule 01/24/2022 Seeing pulm Migraines 07/26/2021 Used to see neuro and was getting Botox Mild dysplasia of cervix 2006 Mixed hyperlipidemia 01/20/2016 Nonrheumatic mitral valve disorder, unspecified 04/06/2016 Obstructive sleep apnea 10/13/2016 DME - [facility] Plantar fasciitis 2018 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 Babs Guerra Postcoital bleeding Primary insomnia 06/13/2021 Primary osteoarthritis of both shoulders 04/06/2022 Seeing [facility] Rectocele 04/19/2007 Renal cyst 07/13/2016 Situational mixed anxiety and depressive disorder 11/12/2017 Thoracic aortic aneurysm without rupture 2018 Urge incontinence 04/19/2007 Vitamin D deficiency 07/23/2012 Well adult exam 06/13/2021 Last done: 06/13/2021 Previous Surgical History PAST SURGICAL HISTORY Procedure Laterality Date APPENDECTOMY 1987 COLONOSCOPY 08/19/2013 COLONOSCOPY FLX DX W/COLLJ SPEC WHEN PFRMD 09/19/2019 Colonoscopy COLONOSCOPY SCREENING 05/05/2022 repeat in 5 years COLONOSCOPY W/BIOPSY SINGLE/MULTIPLE 03/15/2009 minimal colitis-repeat in COLPOSCOPY CERVIX UPPER/ADJACENT VAGINA Colposcopy DILATION & CURETTAGE DX&/THER NONOBSTETRIC 2002 Dilation & curettage EGD 05/05/2022 mild gastritis ESOPHAGOGASTRODUODENOSCOPY TRANSORAL DIAGNOSTIC 09/19/2019 EGD LIG/TRNSXJ FLP TUBE ABDL/VAG APPR UNI/BI 1989&1991 Tubal ligation PAST SURGICAL HISTORY OF 2000 BRAIN SURG/HYDROCEPHALIS - PAST SURGICAL HISTORY OF 2000 REPAIR TENNIS ELBOW PAST SURGICAL HISTORY OF 09/07/06, 05/10,11/08 repair rotator cuff/tendon rt. shoulder PAST SURGICAL HISTORY OF 10/2017 ex lap, ALFRED PROCEDURE , COLOSTOMY PICC LINE INSERT/CONSULT 10/26/2017 REPAIR FIRST ABDOMINAL WALL HERNIA 04/05/2020 Hernia repair, incisional STEREOTACTIC LOCALIZATION BREAST BIOPSY 06/10/2015 right TUBAL LIGATION HX 1989 and 1991 VAGINAL HYSTERECTOMY UTERUS 250 GM/< 09/04/2008 Hysterectomy, vaginal/TVT Family History FAMILY HISTORY Problem Relation Age of Onset Heart Mother skin cancer on nose Breast Cancer Mother Heart Father Hypertension Father Heart Maternal Grandmother Thyroid Sister Thyroid Paternal Aunt Patient Allergies ALLERGIES Allergen Reactions Dilaudid [Hydromorp* Other: See Comments Pt states she hallucinates Sulfa (Sulfonamide * Rash Ultram [Tramadol Hc* GI Upset Pt. tried again on 02-13 and became very ill with GI issues Oxycontin [Oxycodon* Swelling Relafen [Nabumetone] GI Upset Current Medications Current Outpatient Medications on File Prior to Visit Medication Sig sucralfate (CARAFATE) 1 gram tablet Take 1 tablet by mouth before meals and at bedtime. traZODone (DESYREL) 100 mg tablet Take 2 tablets by mouth daily at bedtime. hydrOXYzine HCl (ATARAX) 10 mg tablet Take 1 tablet by mouth three times daily as needed. omeprazole (PRILOSEC) 40 mg capsule Take 1 capsule by mouth once daily. atorvastatin (LIPITOR) 40 mg tablet Take 1 tablet by mouth daily at bedtime. For cholesterol. cetirizine (ZYRTEC) 10 mg tablet Take 10 mg by mouth once daily. azelastine (ASTELIN, ASTEPRO) 0.1% nasal spray Use 2 Sprays in each nostril twice daily as needed. metoprolol succinate ER (TOPROL XL) 50 mg 24 hr tablet Take 2 tablets by mouth once daily. CPAP Lifetime supplies for AutoPAP 6-11 cm H20 including mask, heated tubing, humidity, filters. Fax 30 day download report to [phone] to assess residual ahi. meloxicam (MOBIC) 15 mg tablet Take 1 tablet by mouth once daily. Take with food. sertraline (ZOLOFT) 100 mg tablet Take 1 tablet by mouth once daily. fluticasone (FLONASE) 50 mcg/actuation nasal spray Use 2 Sprays in each nostril once daily. Rinse mouth after use. vit C-Zn gluc-herbal no.325 (ELDERBERRY ZINC VIT C) 90-15 mg lozg Use 1 Lozenge as instructed twice daily. losartan (COZAAR) 50 mg tablet 50 mg once daily. calcium carbonate (CALTRATE 600 ORAL) Take 1 tablet by mouth once daily. multivitamin tablet Take 1 tablet by mouth once daily. BIOTIN ORAL Take 1 tablet by mouth once daily. Cholecalciferol, Vitamin D3, 2,000 unit cap Take 10,000 Units by mouth once daily. No current facility-administered medications on file prior to visit. Social History Social History Tobacco Use Smoking status: Former Packs/day: 0.10 Years: 2.00 Pack years: 0.20 Types: Cigarettes Quit date: 04/26/2010 Years since quittin.3 Smokeless tobacco: Never Tobacco comments: half a pack a week, hasn't smoked since 05/2009 Vaping Use Vaping Use: Never used Substance Use Topics Alcohol use: Yes Comment: occasionally, several times a month glass of wine or mixed drink Drug use: No Review of Symptoms REVIEW OF SYSTEMS See HPI EXAM: BP 118/72 (BP Site: Left Arm, BP Position: Sitting, BP Cuff Size: Regular Adult) Pulse 77 Temp 37 C (98.6 F) (Tympanic) Resp 20 Wt 89.8 kg (198 lb) LMP 08/04/2008 SpO2 96% BMI 30.11 kg/m General Appearance: appears not to be feeling well but stable, alert, in no acute distress, well-hydrated, well nourished.. Ears: External ears normal, canals clear. Nose/Sinuses: Nares normal, septum midline, mucosa normal, no drainage. Maxillary sinuses tender. Oropharynx: Lips, mucosa, and tongue normal, teeth and gums normal, oropharynx normal. MMM and pink Neck: Supple, no adenopathy; thyroid symmetric, normal size, no bruits. Lungs: Lungs clear to auscultation. No wheezing, rhonchi, rales.. Heart: RRR without murmur, gallop, or rubs. No ectopy. Abdomen: Normal abdominal exam, Abdomen soft, mild epigastric tenders suspect due to the coughing. Bowel sounds normal. No masses, organomegaly. Musculoskeletal: has tenderness to the sternum. . Health Maintenance List COVID-19 VACCINE(1) Never done INFLUENZA(1) due on 05/04/2022 BP CONTROLLED (<130/80) due on 06/13/2022 SHINGRIX VACCINE(1 of 2) due on 04/06/2023 MAMMOGRAM due on 04/27/2023 ANNUAL PCP TEAM CHRONIC DISEASE VISIT due on 06/01/2023 DIABETES SCREEN due on 05/16/2025 LIPID SCREEN due on 04/19/2027 COLORECTAL CANCER SCREENING due on 05/05/2027 DTAP,TDAP,TD(5 - Td or Tdap) due on 03/12/2030 HEPATITIS C SCREENING Completed PAP TESTING Discontinued HPV TESTING Discontinued HIV SCREENING Discontinued Data reviewed [facility] ER report from 08/14/2022 Component Latest Ref Rng & Units 08/18/2022 GLUCOSE UA (POCT) Negative mg/dL Negative BILIRUBIN UA (POCT) Negative Negative KETONE UA (POCT) Negative mg/dL Negative SPECIFIC GRAVITY UA (POCT) 1.005 - 1.030 >=1.030 HEMOGLOBIN/BLOOD UA (POCT) Negative Small (A) PH UA (POCT) 4.5 - 8.0 6.0 PROTEIN UA (POCT) Negative mg/dL Trace (A) UROBILINOGEN UA (POCT) Normal E.U./dL 0.2 NITRITE UA (POCT) Negative Negative LEUKOCYTES UA (POCT) Negative Moderate (A) COLOR UA (POCT) Yellow CLARITY UA (POCT) Clear A/P ASSESSMENT/PLAN: 1. Bronchitis - ICD9: 490, ICD10: J40 (primary diagnosis) - will place on Levaquin 500 mg a day for 10 days 2. Costochondritis - ICD9: 733.6, ICD10: M94.0 - will place on prednisone 20 mg 3 a day for 5 days. Patient advided to avoid NSAID's 3. Suspected COVID-19 virus infection - ICD9: V01.79, ICD10: Z20.822 Check - COVID WITH FLUA+B, ROUTINE 4. Acute pain of right knee - ICD9: 719.46, ICD10: M25.561 - CONSULT TO ORTHOPAEDICS: Dr. Franz with [facility] 5. Situational mixed anxiety and depressive disorder - ICD9: 309.28, ICD10: F43.23 - will start prozac 20 mg a day in place of the sertraline. Requested Prescriptions Signed Prescriptions Disp Refills levoFLOXacin (LEVAQUIN) 500 mg tablet 10 tablet 0 Sig: Take 1 tablet by mouth once daily for 10 days. predniSONE (DELTASONE) 20 mg tablet 15 tablet 0 Si tabs a day by mouth for the next 5 days FLUoxetine (PROZAC) 20 mg capsule 90 capsule 1 Sig: Take 1 capsule by mouth once daily. F/u on 08/21/2022 for recheck Ganga Sheppard MD documented in this encounter [facility] 08-14-2022 History of Present illness Narrative Patient triaged at [facility]. Here today with fever, sob. Hx of lung lesion. O2 87 on RA, slight accessory muscle usage with respiration. I will refer to ER, family to bring to ER, kain abadad. documented in this encounter [facility] 07-26-2022 Miscellaneous Notes Left detailed message on a secured voicemail. Allie Shelley Left message for patient to return call. Allie Shelley Please notify patient that urine culture showed mixture of bacteria which suggests possible contamination upon collection. Advise her to finish the antibiotic if it is helping her symptoms but if not, then she will need to return to provide another specimen. Thank you. Didi Ayala APRN.CNP documented in this encounter [facility] 07-24-2022 Instructions Diana Chavez APRN.CNP - 07/24/2022 4:56 PM EST ASSESSMENT/PLAN: 1. Urinary frequency - ICD9: 788.41, ICD10: R35.0 acute - UA positive for anuel esterase, hematuria, proteinuria, and ketones - Send urine for culture - Begin treatment with Macrobid 100 mg BID for 5 days - Patient education for prevention given - UA DIP, URINE (POC) - URINE CULTURE - NITROFURANTOIN MONOHYDRATE & MACROCRYSTAL 100 MG ORAL CAP - Follow-up with your PCP in 3-5 days if symptoms have not improved or sooner if symptoms worsen - Discussed red flags and need for immediate medical evaluation if any occur. - Discussed supportive care treatment with fluids, rest and analgesia. - Discussed expected course of illness Diana Chavez APRN.CNP [facility] PATIENT INFO BLADDER INFECTION OVERVIEW Bladder infections are one of the most common infections, causing symptoms of burning with urination and needing to urinate frequently. A bladder infection is a type of urinary tract infection (UTI). Bladder infections are more common is women than men. Most women have an uncomplicated bladder infection that is easily treated with a short course of antibiotics. In men, bladder infections may also affect the prostate gland, and a longer course of treatment may be needed. BLADDER INFECTION CAUSES The urinary tract includes the kidneys (which filter urine), ureters (the tube that carries urine from the kidneys to the bladder), the bladder (which stores urine), and urethra (the tube that carries urine out of the bladder). Bacteria do not normally live in these areas. However, bacteria normally live close to the urethra in women and men who are not circumcised. Bladder infections occur when bacteria travel up the urethra into the bladder. Factors that increase the risk of developing a bladder infection include: Vaginal sex Use of spermicides History of past bladder infections Diabetes In men, not being circumcised or having anal sex increase the risk of bladder infections. BLADDER INFECTION SYMPTOMS The typical symptoms of a bladder infection include: Pain or burning when urinating Frequent need to urinate Urgent need to urinate Blood in the urine Fever, back pain, nausea, or vomiting are not common symptoms of a bladder infection, but can occur in people with a kidney infection (pyelonephritis). If you have these symptoms, you should call your doctor or nurse immediately. Is it a bladder infection or something else? -- Burning with urination can also occur in people with vaginitis (eg, yeast infection) or urethritis (inflammation of the urethra). For this reason, it is important to call your healthcare provider before assuming you have a bladder infection. BLADDER INFECTION DIAGNOSIS Simple bladder infections are usually diagnosed based upon your symptoms alone. However, most patients, especially those who have bladder infection symptoms for the first time, should see a healthcare provider for urine testing. Urine culture -- A urine culture is a test that uses a sample of urine to try and grow bacteria in a laboratory. It usually requires about 48 hours to get results. However, a urine culture is not always required to diagnose a bladder infection. Urine culture is often recommended if: You have never had a bladder infection before You have symptoms that are not typical for bladder infection You have had resistant bladder infections before You have frequent bladder infections You do not begin to feel better within 24 to 48 hours after starting antibiotics You are BLADDER INFECTION TREATMENT Bladder infection -- In young, healthy adolescents and adults with a bladder infection, the usual treatment includes a three to seven day course of antibiotics. The typical drugs chosen are: trimethoprim-sulfamethoxazole (Bactrim ), nitrofurantoin (Macrobid ), ciprofloxacin (Cipro ) or levofloxacin (Levaquin ). In men, the infection may involve your prostate gland and treatment is usually given for at least 7 days. Your symptoms should begin to resolve within one day after starting treatment. It is important to take the full course of antibiotics to completely eliminate the infection. If your symptoms persist for more than two or three days after starting treatment, call your healthcare provider. If needed, you can take a prescription medication that numbs the bladder and urethra (phenazopyridine [Pyridium ]) to reduce the burning pain of some UTIs. A similar medication is available without a prescription (eg, Uristat). Both medications change the color of the urine (usually blue or orange) and can interfere with laboratory testing. You should not take these medications for more than 48 hours due to the risk of side effects. These medications do not treat the infection and must be taken along with an antibiotic. Some providers recommend drinking more fluids while treating bladder infections to help flush bacteria from the bladder. Others believe that drinking more fluids may dilute the antibiotic in the bladder and make the medication less effective. No studies have been performed to address this issue. There are also no good studies on the effectiveness of cranberry juice for treating a bladder infection; we do not recommend using cranberry juice to treat bladder infections. Follow-up care -- Follow-up testing is not needed in healthy, young men or women with a bladder infection if symptoms resolve. women are usually asked to have a repeat urine culture one to two weeks after treatment has ended to make sure the bacteria are no longer in the urine. RECURRENT BLADDER INFECTIONS Bladder infections versus other causes -- Some adults, especially women, develop bladder infections frequently. In this case, it is important to confirm that your symptoms (eg, pain or burning, frequency, and urgency) are caused by a bladder infection. Symptoms are usually similar from one infection to another. The best way to confirm an infection is to have a urine culture. If your urine culture is negative for infection, other causes of pain, burning, and frequency should be investigated. There is no reason to take antibiotics if your urine culture is negative. Need for further testing -- If you continue to develop bladder infections, you may require further testing. If you continue to notice blood in your urine after your bladder infection has cleared, you should have further testing. Preventing recurrent UTIs -- Women with recurrent urinary tract infections may be advised to take steps to prevent bladder infections, including one or more of the following: Changes in control -- Women who develop frequent bladder infections and use spermicides, particularly those who also use a diaphragm, may be encouraged to use an alternate method of control. Cranberry products -- Taking cranberry juice or cranberry tablets has been promoted as one way to help prevent frequent bladder infections. However, this has not been proven. Drinking more fluid and urinating after intercourse -- Although studies have not proven that drinking more fluids or urinating soon after intercourse can prevent infection, some healthcare providers recommend these measures since they are not harmful. Drinking more fluid may help to wash out bacteria that enter the bladder. Postmenopausal women -- Postmenopausal women who develop recurrent bladder infections may benefit from using vaginal estrogen. Vaginal estrogen is available in a flexible ring that is worn in the vagina for three months (eg, Estring ), a small tablet (Vagifem ), or a cream (eg, Premarin or Estrace ). Vaginal estrogen is discussed in more detail in a separate topic review. Antibiotics -- A preventive antibiotic treatment may be recommended if you repeatedly develop bladder infections and have not responded to other preventive measures. Antibiotics are highly effective in preventing recurrent bladder infections and can be taken in several different ways. Preventive antibiotic -- You can take a low dose of an antibiotic once per day or three times per week for six months to several years. Antibiotics following intercourse -- In women who develop urinary tract infections after sex, taking a single low dose antibiotic after intercourse can help to prevent bladder infections. Self-treatment -- A plan to begin antibiotics at the first sign of a bladder infection may be recommended in some situations. Before starting this regimen, it is important that you have had testing (urine cultures) to confirm that your symptoms are caused by a bladder infection; some people have symptoms of a bladder infection but do not actually have an infection. documented in this encounter [facility] 07-24-2022 History of Present illness Narrative Subjective HPI Kristina Macario is a 62 year old female who presents with 4 days of dysuria, frequency, and back pain. She denies fever or chills, no nausea or vomiting or abdominal pain. She took AZO yesterday for her symptoms. Review of Systems Constitutional: Negative for chills and fever. Respiratory: Negative. Cardiovascular: Negative. Gastrointestinal: Negative for abdominal pain, nausea and vomiting. Genitourinary: Positive for dysuria and frequency. Negative for flank pain and hematuria. Musculoskeletal: Positive for back pain. BP 122/80 Pulse 80 Temp 37.1 C (98.8 F) Resp 16 Wt 91.2 kg (201 lb) LMP 08/04/2008 SpO2 95% BMI 30.56 kg/m PAST MEDICAL HISTORY Diagnosis Date Abnormal mammogram Advance directive discussed with patient 04/06/2022 Discussed 04/06/2022 Arthritis of knee, left 01/31/2013 Arthritis of left hip 01/19/2016 Ascending aorta dilatation (HCC) 07/04/2017 04/19/16: 4.2 cm 06/11/17: 4.4 cm 06/24/18 4.4 cm Cervical high risk human papillomavirus (HPV) DNA test positive 05/27/2008 Chronic anxiety 06/01/2021 Chronic diarrhea 12/09/2018 Chronic hypoxemic respiratory failure (HCC) 09/06/2021 resolved Chronic prescription benzodiazepine use 06/01/2021 DDD (degenerative disc disease), lumbar 07/24/[address] Jose [facility] Essential tremor 04/06/2022 Ex-smoker 04/06/2022 Excessive or frequent menstruation Heavy periods Fibromyalgia 02/26/2014 Hemorrhage of gastrointestinal tract, unspecified History of COVID-19 06/13/202105/2021 Hydrocephalus, adult (HCC) 02/09/2003 Hypertension, essential 01/22/2019 Living will on file 04/06/2022 DPA: Victoriano () Lung nodule 01/24/2022 Seeing pulm Migraines 07/26/2021 Used to see neuro and was getting Botox Mild dysplasia of cervix 2006 Mixed hyperlipidemia 01/20/2016 Nonrheumatic mitral valve disorder, unspecified 04/06/2016 Obstructive sleep apnea 10/13/2016 DME - [facility] Plantar fasciitis 2018 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 Babs Guerra Postcoital bleeding Primary insomnia 06/13/2021 Primary osteoarthritis of both shoulders 04/06/2022 Seeing [facility] Rectocele 04/19/2007 Renal cyst 07/13/2016 Situational mixed anxiety and depressive disorder 11/12/2017 Thoracic aortic aneurysm without rupture 2018 Urge incontinence 04/19/2007 Vitamin D deficiency 07/23/2012 Well adult exam 06/13/2021 Last done: 06/13/2021 PAST SURGICAL HISTORY Procedure Laterality Date APPENDECTOMY 1987 COLONOSCOPY 08/19/2013 COLONOSCOPY FLX DX W/COLLJ SPEC WHEN PFRMD 09/19/2019 Colonoscopy COLONOSCOPY SCREENING 05/05/2022 repeat in 5 years COLONOSCOPY W/BIOPSY SINGLE/MULTIPLE 03/15/2009 minimal colitis-repeat in COLPOSCOPY CERVIX UPPER/ADJACENT VAGINA Colposcopy DILATION & CURETTAGE DX&/THER NONOBSTETRIC 2002 Dilation & curettage EGD 05/05/2022 mild gastritis ESOPHAGOGASTRODUODENOSCOPY TRANSORAL DIAGNOSTIC 09/19/2019 EGD LIG/TRNSXJ FLP TUBE ABDL/VAG APPR UNI/BI 1989&1991 Tubal ligation PAST SURGICAL HISTORY OF 2000 BRAIN SURG/HYDROCEPHALIS - PAST SURGICAL HISTORY OF 2000 REPAIR TENNIS ELBOW PAST SURGICAL HISTORY OF 09/07/06, 05/10,11/08 repair rotator cuff/tendon rt. shoulder PAST SURGICAL HISTORY OF 10/2017 ex lap, ALFRED PROCEDURE , COLOSTOMY PICC LINE INSERT/CONSULT 10/26/2017 REPAIR FIRST ABDOMINAL WALL HERNIA 04/05/2020 Hernia repair, incisional STEREOTACTIC LOCALIZATION BREAST BIOPSY 06/10/2015 right TUBAL LIGATION HX 1989 and 1991 VAGINAL HYSTERECTOMY UTERUS 250 GM/< 09/04/2008 Hysterectomy, vaginal/TVT ALLERGIES Dilaudid [Hydromorphone (Pf)], Sulfa (Sulfonamide Antibiotics), Ultram [Tramadol Hcl], Oxycontin [Oxycodone Hcl], and Relafen [Nabumetone] MEDICATIONS sucralfate (CARAFATE) 1 gram tablet Take 1 tablet by mouth before meals and at bedtime. traZODone (DESYREL) 100 mg tablet Take 2 tablets by mouth daily at bedtime. hydrOXYzine HCl (ATARAX) 10 mg tablet Take 1 tablet by mouth three times daily as needed. atorvastatin (LIPITOR) 40 mg tablet Take 1 tablet by mouth daily at bedtime. For cholesterol. cetirizine (ZYRTEC) 10 mg tablet Take 10 mg by mouth once daily. azelastine (ASTELIN, ASTEPRO) 0.1% nasal spray Use 2 Sprays in each nostril twice daily as needed. CPAP Lifetime supplies for AutoPAP 6-11 cm H20 including mask, heated tubing, humidity, filters. Fax 30 day download report to [phone] to assess residual ahi. meloxicam (MOBIC) 15 mg tablet Take 1 tablet by mouth once daily. Take with food. sertraline (ZOLOFT) 100 mg tablet Take 1 tablet by mouth once daily. fluticasone (FLONASE) 50 mcg/actuation nasal spray Use 2 Sprays in each nostril once daily. Rinse mouth after use. vit C-Zn gluc-herbal no.325 (ELDERBERRY ZINC VIT C) 90-15 mg lozg Use 1 Lozenge as instructed twice daily. losartan (COZAAR) 50 mg tablet 50 mg once daily. calcium carbonate (CALTRATE 600 ORAL) Take 1 tablet by mouth once daily. multivitamin tablet Take 1 tablet by mouth once daily. BIOTIN ORAL Take 1 tablet by mouth once daily. Cholecalciferol, Vitamin D3, 2,000 unit cap Take 10,000 Units by mouth once daily. omeprazole (PRILOSEC) 40 mg capsule Take 1 capsule by mouth once daily. metoprolol succinate ER (TOPROL XL) 50 mg 24 hr tablet Take 2 tablets by mouth once daily. FAMILY HISTORY Problem Relation Age of Onset Heart Mother skin cancer on nose Breast Cancer Mother Heart Father Hypertension Father Heart Maternal Grandmother Thyroid Sister Thyroid Paternal Aunt Social History Tobacco Use Smoking status: Former Packs/day: 0.10 Years: 2.00 Pack years: 0.20 Types: Cigarettes Quit date: 04/26/2010 Years since quittin.2 Smokeless tobacco: Never Tobacco comments: half a pack a week, hasn't smoked since 05/2009 Vaping Use Vaping Use: Never used Substance Use Topics Alcohol use: Yes Comment: occasionally, several times a month glass of wine or mixed drink Drug use: No Objective Physical Exam Vitals and nursing note reviewed. Constitutional: Appearance: Normal appearance. Cardiovascular: Rate and Rhythm: Normal rate and regular rhythm. Pulmonary: Effort: Pulmonary effort is normal. Breath sounds: Normal breath sounds. Abdominal: General: There is no distension. Palpations: Abdomen is soft. There is no mass. Tenderness: There is abdominal tenderness in the suprapubic area. There is no right CVA tenderness, left CVA tenderness or guarding. Skin: General: Skin is warm and dry. Neurological: Mental Status: She is alert. ASSESSMENT/PLAN: 1. Urinary frequency - ICD9: 788.41, ICD10: R35.0 acute - UA positive for anuel esterase, hematuria, proteinuria, and ketones - Send urine for culture - Begin treatment with Macrobid 100 mg BID for 5 days - Patient education for prevention given - UA DIP, URINE (POC) - URINE CULTURE - NITROFURANTOIN MONOHYDRATE & MACROCRYSTAL 100 MG ORAL CAP - Follow-up with your PCP in 3-5 days if symptoms have not improved or sooner if symptoms worsen - Discussed red flags and need for immediate medical evaluation if any occur. - Discussed supportive care treatment with fluids, rest and analgesia. - Discussed expected course of illness Diana Chavez APRN.CNP documented in this encounter [facility] 06-01-2022 History of Present illness Narrative This Team Access Model visit is a virtual encounter. It required patient-provider interaction for the medical decision making as documented below. Patient agrees to the visit: Yes Patient Location: [place] CC: Patient presents with: Toothache Pain, Sinus HPI Kristina Macario is a 62 year old female who is contacted today for a virtual visit. This is an established patient of Dr. Ganga Sheppard MD. Kristina is a new patient to me today. Concerns today.. Sinuses and toothache-- Started as toothache 3 days ago. Recently had work done on tooth about 3 weeks ago - right where pain and toothache started. Reports swelling to cheek and R side of face slightly. Did not reach out to dentist because then sinus congestion and cough started so she was unsure if it was all related or not. No COVID testing completed at home. Denies any known exposure to COVID. Denies any fever/chills. Yellow nasal drainage. Sinus pressures to forehead and maxillary x 1-2 days. REVIEW OF SYSTEMS See HPI PAST MEDICAL HISTORY Diagnosis Date Abnormal mammogram Advance directive discussed with patient 04/06/2022 Discussed 04/06/2022 Arthritis of knee, left 01/31/2013 Arthritis of left hip 01/19/2016 Ascending aorta dilatation (HCC) 07/04/2017 04/19/16: 4.2 cm 06/11/17: 4.4 cm 06/24/18 4.4 cm Cervical high risk human papillomavirus (HPV) DNA test positive 05/27/2008 Chronic anxiety 06/01/2021 Chronic diarrhea 12/09/2018 Chronic hypoxemic respiratory failure (HCC) 09/06/2021 resolved Chronic prescription benzodiazepine use 06/01/2021 DDD (degenerative disc disease), lumbar 07/24/[address] Jose Raul Camarena Essential tremor 04/06/2022 Ex-smoker 04/06/2022 Excessive or frequent menstruation Heavy periods Fibromyalgia 02/26/2014 Hemorrhage of gastrointestinal tract, unspecified History of COVID-19 06/13/202105/2021 Hydrocephalus, adult (HCC) 02/09/2003 Hypertension, essential 01/22/2019 Living will on file 04/06/2022 DPA: Victoriano () Lung nodule 01/24/2022 Seeing pulm Migraines 07/26/2021 Used to see neuro and was getting Botox Mild dysplasia of cervix 2006 Mixed hyperlipidemia 01/20/2016 Nonrheumatic mitral valve disorder, unspecified 04/06/2016 Obstructive sleep apnea 10/13/2016 DME - [facility] Plantar fasciitis 2018 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 Babs Guerra Postcoital bleeding Primary insomnia 06/13/2021 Primary osteoarthritis of both shoulders 04/06/2022 Seeing anahi camarena Rectocele 04/19/2007 Renal cyst 07/13/2016 Situational mixed anxiety and depressive disorder 11/12/2017 Thoracic aortic aneurysm without rupture (HCC) 2018 Urge incontinence 04/19/2007 Vitamin D deficiency 07/23/2012 Well adult exam 06/13/2021 Last done: 06/13/2021 PAST SURGICAL HISTORY Procedure Laterality Date APPENDECTOMY 1987 COLONOSCOPY 08/19/2013 COLONOSCOPY FLX DX W/COLLJ SPEC WHEN PFRMD 09/19/2019 Colonoscopy COLONOSCOPY SCREENING 05/05/2022 repeat in 5 years COLONOSCOPY W/BIOPSY SINGLE/MULTIPLE 03/15/2009 minimal colitis-repeat in COLPOSCOPY CERVIX UPPER/ADJACENT VAGINA Colposcopy DILATION & CURETTAGE DX&/THER NONOBSTETRIC 2003 Dilation & curettage EGD 05/05/2022 mild gastritis ESOPHAGOGASTRODUODENOSCOPY TRANSORAL DIAGNOSTIC 09/19/2019 EGD LIG/TRNSXJ FLP TUBE ABDL/VAG APPR UNI/BI 1989&1991 Tubal ligation PAST SURGICAL HISTORY OF 2000 BRAIN SURG/HYDROCEPHALIS - PAST SURGICAL HISTORY OF 2000 REPAIR TENNIS ELBOW PAST SURGICAL HISTORY OF 09/07/06, 05/10,11/08 repair rotator cuff/tendon rt. shoulder PAST SURGICAL HISTORY OF 10/2017 ex lap, ALFRED PROCEDURE , COLOSTOMY PICC LINE INSERT/CONSULT 10/26/2017 REPAIR FIRST ABDOMINAL WALL HERNIA 04/05/2020 Hernia repair, incisional STEREOTACTIC LOCALIZATION BREAST BIOPSY 06/10/2015 right TUBAL LIGATION HX 1989 and 1991 VAGINAL HYSTERECTOMY UTERUS 250 GM/< 09/04/2008 Hysterectomy, vaginal/TVT ALLERGIES Dilaudid [Hydromorphone (Pf)], Sulfa (Sulfonamide Antibiotics), Ultram [Tramadol Hcl], Oxycontin [Oxycodone Hcl], and Relafen [Nabumetone] MEDICATIONS sucralfate (CARAFATE) 1 gram tablet Take 1 tablet by mouth before meals and at bedtime. traZODone (DESYREL) 100 mg tablet Take 2 tablets by mouth daily at bedtime. hydrOXYzine HCl (ATARAX) 10 mg tablet Take 1 tablet by mouth three times daily as needed. omeprazole (PRILOSEC) 40 mg capsule Take 1 capsule by mouth once daily. atorvastatin (LIPITOR) 40 mg tablet Take 1 tablet by mouth daily at bedtime. For cholesterol. cetirizine (ZYRTEC) 10 mg tablet Take 10 mg by mouth once daily. azelastine (ASTELIN, ASTEPRO) 0.1% nasal spray Use 2 Sprays in each nostril twice daily as needed. metoprolol succinate ER (TOPROL XL) 50 mg 24 hr tablet Take 2 tablets by mouth once daily. CPAP Lifetime supplies for AutoPAP 6-11 cm H20 including mask, heated tubing, humidity, filters. Fax day download report to [phone] to assess residual ahi. meloxicam (MOBIC) 15 mg tablet Take 1 tablet by mouth once daily. Take with food. sertraline (ZOLOFT) 100 mg tablet Take 1 tablet by mouth once daily. fluticasone (FLONASE) 50 mcg/actuation nasal spray Use 2 Sprays in each nostril once daily. Rinse mouth after use. vit C-Zn gluc-herbal no.325 (ELDERBERRY ZINC VIT C) 90-15 mg lozg Use 1 Lozenge as instructed twice daily. losartan (COZAAR) 50 mg tablet 50 mg once daily. calcium carbonate (CALTRATE 600 ORAL) Take 1 tablet by mouth once daily. multivitamin tablet Take 1 tablet by mouth once daily. BIOTIN ORAL Take 1 tablet by mouth once daily. Cholecalciferol, Vitamin D3, 2,000 unit cap Take 10,000 Units by mouth once daily. FAMILY HISTORY Problem Relation Age of Onset Heart Mother skin cancer on nose Breast Cancer Mother Heart Father Hypertension Father Heart Maternal Grandmother Thyroid Sister Thyroid Paternal Aunt Social History Tobacco Use Smoking status: Former Packs/day: 0.10 Years: 2.00 Pack years: 0.20 Types: Cigarettes Quit date: 04/26/2010 Years since quittin.1 Smokeless tobacco: Never Tobacco comments: half a pack a week, hasn't smoked since 05/2009 Vaping Use Vaping Use: Never used Substance Use Topics Alcohol use: Yes Comment: occasionally, several times a month glass of wine or mixed drink Drug use: No EXAM: Deferred physical exam as visit was completed over the phone Patient is speaking in complete sentences without obvious respiratory distress or audible wheezing. Virtual visit completed using video, limited exam completed. GENERAL: alert and appropriate, in no distress, well-hydrated, well nourished, and happy, smiling, interactive SKIN: no rash noted HEAD: normocephalic, no abnormality or lesion noted. No noticeable swelling through zoom video. MOUTH: hard to see anything. DATA REVIEWED: Most recent labs and imaging results. INFLUENZA(1) due on 05/04/2022 COVID-19 VACCINE(1) due on 07/26/2022 SHINGRIX VACCINE(1 of 2) due on 04/06/2023 BP CONTROLLED (<130/80) due on 06/13/2022 MAMMOGRAM due on 04/27/2023 ANNUAL PCP TEAM CHRONIC DISEASE VISIT due on 05/23/2023 DIABETES SCREEN due on 05/16/2025 LIPID SCREEN due on 04/19/2027 COLORECTAL CANCER SCREENING due on 05/05/2027 DTAP,TDAP,TD(5 - Td or Tdap) due on 03/12/2030 HEPATITIS C SCREENING Completed PAP TESTING Discontinued HPV TESTING Discontinued HIV SCREENING Discontinued ASSESSMENT/PLAN: 1. Toothache - ICD9: 525.9, ICD10: K08.89 (primary diagnosis) Concerns for dental infection due to recent dental work. Poor assessment due to virtual and hard time seeing anything in mouth. Start amoxicillin atb BID x 7 days. Reach out to dentist due to recent dental work for assessment. - AMOXICILLIN 500 MG TABLET 2. URI, acute - ICD9: 465.9, ICD10: J06.9 - Discussed likely viral etiology and rationale for treatment. Amoxicillin for dental infection concern will also treat if sinus pressure is bacterial, although due to length of symptoms so far, likely viral. - Complete at home COVID test to rule this out -- declined PCR COVID testing via office - Symptomatic treatment with prn analgesia - Supportive care with fluids and rest - The patient may also use OTC decongestants prn and OTC cough and cold meds as needed. - Follow up in 3-5 days if symptoms persist or sooner if worsening of symptoms - AMOXICILLIN 500 MG TABLET RTO if symptoms worsen or do not improve. Prescription instructions reviewed with patient as applicable. Potential red flag symptoms discussed with the patient. Reviewed appropriate action plan to take if red flag symptoms occur. Patient agreeable to treatment plan. During this patient visit I have spent approximately 15 minutes in counseling regarding treatment options and medications. Janet Trejo APRN.VICKY documented in this encounter [facility] 05-23-2022 History of Present illness Narrative Chief Complaint Patient presents with: Recheck: Blood pressure and abdominal pain HPI Kristina Macario is a 62 year old female who presents here today for recheck. Patient was seen for preop on 05/16. At that visit patient had elevated BP and significant abdominal discomfort on exam. With recent dx of gastric ulcer. Since then she is feeling better. Saw her gen surgical PA in follow up on 05/19. No other concerns today. Past medical history, appointments, medications, allergies reviewed. Previous Medical History PAST MEDICAL HISTORY Diagnosis Date Abnormal mammogram Advance directive discussed with patient 04/06/2022 Discussed 04/06/2022 Arthritis of knee, left 01/31/2013 Arthritis of left hip 01/19/2016 Ascending aorta dilatation (HCC) 07/04/2017 04/19/16: 4.2 cm 06/11/17: 4.4 cm 06/24/18 4.4 cm Cervical high risk human papillomavirus (HPV) DNA test positive 05/27/2008 Chronic anxiety 06/01/2021 Chronic diarrhea 12/09/2018 Chronic hypoxemic respiratory failure (HCC) 09/06/2021 resolved Chronic prescription benzodiazepine use 06/01/2021 DDD (degenerative disc disease), lumbar 07/24/[address] Jose Raul Camarena Essential tremor 04/06/2022 Ex-smoker 04/06/2022 Excessive or frequent menstruation Heavy periods Fibromyalgia 02/26/2014 Hemorrhage of gastrointestinal tract, unspecified History of COVID-19 06/13/202105/2021 Hydrocephalus, adult (HCC) 02/09/2003 Hypertension, essential 01/22/2019 Living will on file 04/06/2022 DPA: Victoriano () Lung nodule 01/24/2022 Seeing pulm Migraines 07/26/2021 Used to see neuro and was getting Botox Mild dysplasia of cervix 2006 Mixed hyperlipidemia 01/20/2016 Nonrheumatic mitral valve disorder, unspecified 04/06/2016 Obstructive sleep apnea 10/13/2016 DME - [facility] Plantar fasciitis 2018 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 Babs Guerra Postcoital bleeding Primary insomnia 06/13/2021 Primary osteoarthritis of both shoulders 04/06/2022 Seeing anahi camarena Rectocele 04/19/2007 Renal cyst 07/13/2016 Situational mixed anxiety and depressive disorder 11/12/2017 Thoracic aortic aneurysm without rupture (HCC) 2018 Urge incontinence 04/19/2007 Vitamin D deficiency 07/23/2012 Well adult exam 06/13/2021 Last done: 06/13/2021 Previous Surgical History PAST SURGICAL HISTORY Procedure Laterality Date APPENDECTOMY 1987 COLONOSCOPY 08/19/2013 COLONOSCOPY FLX DX W/COLLJ SPEC WHEN PFRMD 09/19/2019 Colonoscopy COLONOSCOPY SCREENING 05/05/2022 COLONOSCOPY W/BIOPSY SINGLE/MULTIPLE 03/15/2009 minimal colitis-repeat in COLPOSCOPY CERVIX UPPER/ADJACENT VAGINA Colposcopy DILATION & CURETTAGE DX&/THER NONOBSTETRIC 2002 Dilation & curettage EGD W/O BRSH SPEC VARICIES INJ 05/05/2022 ESOPHAGOGASTRODUODENOSCOPY TRANSORAL DIAGNOSTIC 09/19/2019 EGD LIG/TRNSXJ FLP TUBE ABDL/VAG APPR UNI/BI 1989&1991 Tubal ligation PAST SURGICAL HISTORY OF 2000 BRAIN SURG/HYDROCEPHALIS - PAST SURGICAL HISTORY OF 2000 REPAIR TENNIS ELBOW PAST SURGICAL HISTORY OF 09/07/06, 05/10,11/08 repair rotator cuff/tendon rt. shoulder PAST SURGICAL HISTORY OF 10/2017 ex lap, ALFRED PROCEDURE , COLOSTOMY PICC LINE INSERT/CONSULT 10/26/2017 REPAIR FIRST ABDOMINAL WALL HERNIA 04/05/2020 Hernia repair, incisional STEREOTACTIC LOCALIZATION BREAST BIOPSY 06/10/2015 right TUBAL LIGATION HX 1989 and 1991 VAGINAL HYSTERECTOMY UTERUS 250 GM/< 09/04/2008 Hysterectomy, vaginal/TVT Family History FAMILY HISTORY Problem Relation Age of Onset Heart Mother skin cancer on nose Breast Cancer Mother Heart Father Hypertension Father Heart Maternal Grandmother Thyroid Sister Thyroid Paternal Aunt Patient Allergies ALLERGIES Allergen Reactions Dilaudid [Hydromorp* Other: See Comments Pt states she hallucinates Sulfa (Sulfonamide * Rash Ultram [Tramadol Hc* GI Upset Pt. tried again on 02-13 and became very ill with GI issues Oxycontin [Oxycodon* Swelling Relafen [Nabumetone] GI Upset Current Medications Current Outpatient Medications on File Prior to Visit Medication Sig sucralfate (CARAFATE) 1 gram tablet Take 1 tablet by mouth before meals and at bedtime. traZODone (DESYREL) 100 mg tablet Take 2 tablets by mouth daily at bedtime. hydrOXYzine HCl (ATARAX) 10 mg tablet Take 1 tablet by mouth three times daily as needed. omeprazole (PRILOSEC) 40 mg capsule Take 1 capsule by mouth once daily. atorvastatin (LIPITOR) 40 mg tablet Take 1 tablet by mouth daily at bedtime. For cholesterol. cetirizine (ZYRTEC) 10 mg tablet Take 10 mg by mouth once daily. azelastine (ASTELIN, ASTEPRO) 0.1% nasal spray Use 2 Sprays in each nostril twice daily as needed. metoprolol succinate ER (TOPROL XL) 50 mg 24 hr tablet Take 2 tablets by mouth once daily. CPAP Lifetime supplies for AutoPAP 6-11 cm H20 including mask, heated tubing, humidity, filters. Fax 30 day download report to [phone] to assess residual ahi. meloxicam (MOBIC) 15 mg tablet Take 1 tablet by mouth once daily. Take with food. sertraline (ZOLOFT) 100 mg tablet Take 1 tablet by mouth once daily. fluticasone (FLONASE) 50 mcg/actuation nasal spray Use 2 Sprays in each nostril once daily. Rinse mouth after use. vit C-Zn gluc-herbal no.325 (ELDERBERRY ZINC VIT C) 90-15 mg lozg Use 1 Lozenge as instructed twice daily. losartan (COZAAR) 50 mg tablet 50 mg once daily. calcium carbonate (CALTRATE 600 ORAL) Take 1 tablet by mouth once daily. multivitamin tablet Take 1 tablet by mouth once daily. BIOTIN ORAL Take 1 tablet by mouth once daily. Cholecalciferol, Vitamin D3, 2,000 unit cap Take 10,000 Units by mouth once daily. No current facility-administered medications on file prior to visit. Social History Social History Tobacco Use Smoking status: Former Packs/day: 0.10 Years: 2.00 Pack years: 0.20 Types: Cigarettes Quit date: 04/26/2010 Years since quittin.0 Smokeless tobacco: Never Tobacco comments: half a pack a week, hasn't smoked since 05/2009 Vaping Use Vaping Use: Never used Substance Use Topics Alcohol use: Yes Comment: occasionally, several times a month glass of wine or mixed drink Drug use: No Review of Symptoms REVIEW OF SYSTEMS GENERAL: No weight loss, malaise or fevers NECK: Negative for lumps, goiter, pain and significant neck swelling RESPIRATORY: Negative for cough, hemoptysis, wheezing, COPD, dyspnea or shortness of breath CARDIOVASCULAR: Negative for chest pain, leg swelling, hypertension, CHF or palpitations EXAM: BP 112/80 (BP Site: Left Arm, BP Position: Sitting, BP Cuff Size: Large Adult) Pulse 60 Temp 36.6 C (97.9 F) Resp 16 Wt 87.1 kg (192 lb) LMP 08/04/2008 BMI 29.19 kg/m General Appearance: Well appearing, alert, in no acute distress, well-hydrated, well nourished.. Lungs: Lungs clear to auscultation. No wheezing, rhonchi, rales.. Heart: RRR without murmur, gallop, or rubs. No ectopy. Abdomen: Normal abdominal exam, Abdomen soft, non-tender. Bowel sounds normal. No masses, organomegaly. Health Maintenance List INFLUENZA(1) due on 05/04/2022 COVID-19 VACCINE(1) due on 07/26/2022 SHINGRIX VACCINE(1 of 2) due on 04/06/2023 MAMMOGRAM due on 04/27/2023 ANNUAL PCP TEAM CHRONIC DISEASE VISIT due on 05/16/2023 BP CONTROLLED (<130/80) due on 05/19/2023 DIABETES SCREEN due on 05/16/2025 LIPID SCREEN due on 04/19/2027 COLORECTAL CANCER SCREENING due on 05/05/2027 DTAP,TDAP,TD(5 - Td or Tdap) due on 03/12/2030 HEPATITIS C SCREENING Completed PAP TESTING Discontinued HPV TESTING Discontinued HIV SCREENING Discontinued Data reviewed ASSESSMENT/PLAN: 1. Hypertension, essential - ICD9: 401.9, ICD10: I10 (primary diagnosis) - good control - Continue current medication(s) - Recommended regular aerobic exercise. - Recommend home blood pressure monitoring, to bring results in on next visit - Goal of BP <130/80 2. Acute gastric ulcer, unspecified whether gastric ulcer hemorrhage or perforation present - ICD9: 531.30, ICD10: K25.3 Improved. Edwina Khoury PA-C documented in this encounter [facility] 05-17-2022 Miscellaneous Notes Noted. Pt advised of results, verbalizes understanding. She reports that she is feeling better. Did drink several glasses of her pineapple juice yesterday and that helped. She is still sore in a few spots but overall better. Advised her to make sure she is getting enough to drink. Asmita Mason LPN Please let patient know that labs look okay. Urine is dark, so she may be dehydrated. How does she feel today? documented in this encounter [facility] 05-16-2022 Instructions Edwina Khoury PA-C - 05/16/2022 9:21 AM EDT Please contact cardiology for cardiac clearance. documented in this encounter [facility] 05-16-2022 History of Present illness Narrative Chief Complaint Patient presents with: Pre-Op Exam HPI Kristina Macario is a 62 year old female who presents here today for pre-op exam. Patient is scheduled for R total shoulder replacement on 06/14/[address] Coyle. Patient with hx of hyperlipidemia, HTN, aortic regurgitation, ascending aorta dilatation, mitral valve disorder, HUBER on CPAP, Post covid dyspnea, lung nodule, GERD, and those as below. Patient denies current or recent chest pain or shortness of breath out of the norm for her. Past surgical hx as below. She reports she does get nauseated with anesthesia but otherwise no other complications with past surgeries. Currently she is having abdominal pain. States she ate corn last night and now has pain and bloating. Recently diagnosed with gastric ulcer by EGD. Started on omeprazole last week. Past medical history, appointments, medications, allergies reviewed. Previous Medical History PAST MEDICAL HISTORY Diagnosis Date Abnormal mammogram Advance directive discussed with patient 04/06/2022 Discussed 04/06/2022 Arthritis of knee, left 01/31/2013 Arthritis of left hip 01/19/2016 Ascending aorta dilatation (HCC) 07/04/2017 04/19/16: 4.2 cm 06/11/17: 4.4 cm 06/24/18 4.4 cm Cervical high risk human papillomavirus (HPV) DNA test positive 05/27/2008 Chronic anxiety 06/01/2021 Chronic diarrhea 12/09/2018 Chronic hypoxemic respiratory failure (HCC) 09/06/2021 resolved Chronic prescription benzodiazepine use 06/01/2021 DDD (degenerative disc disease), lumbar 07/24/[address] Jose Raul [facility] Essential tremor 04/06/2022 Ex-smoker 04/06/2022 Excessive or frequent menstruation Heavy periods Fibromyalgia 02/26/2014 Hemorrhage of gastrointestinal tract, unspecified History of COVID-19 06/13/202105/2021 Hydrocephalus, adult (HCC) 02/09/2003 Hypertension, essential 01/22/2019 Living will on file 04/06/2022 DPA: Victoriano () Lung nodule 01/24/2022 Seeing pulm Migraines 07/26/2021 Used to see neuro and was getting Botox Mild dysplasia of cervix 2006 Mixed hyperlipidemia 01/20/2016 Nonrheumatic mitral valve disorder, unspecified 04/06/2016 Obstructive sleep apnea 10/13/2016 DME - [facility] Plantar fasciitis 2018 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 Babs Guerra Postcoital bleeding Primary insomnia 06/13/2021 Primary osteoarthritis of both shoulders 04/06/2022 Seeing anahi ortho Rectocele 04/19/2007 Renal cyst 07/13/2016 Situational mixed anxiety and depressive disorder 11/12/2017 Thoracic aortic aneurysm without rupture (HCC) 2018 Urge incontinence 04/19/2007 Vitamin D deficiency 07/23/2012 Well adult exam 06/13/2021 Last done: 06/13/2021 Previous Surgical History PAST SURGICAL HISTORY Procedure Laterality Date APPENDECTOMY 1987 COLONOSCOPY 08/19/2013 COLONOSCOPY FLX DX W/COLLJ SPEC WHEN PFRMD 09/19/2019 Colonoscopy COLONOSCOPY W/BIOPSY SINGLE/MULTIPLE 03/15/2009 minimal colitis-repeat in COLPOSCOPY CERVIX UPPER/ADJACENT VAGINA Colposcopy DILATION & CURETTAGE DX&/THER NONOBSTETRIC 2002 Dilation & curettage ESOPHAGOGASTRODUODENOSCOPY TRANSORAL DIAGNOSTIC 09/19/2019 EGD LIG/TRNSXJ FLP TUBE ABDL/VAG APPR UNI/BI 1989&1991 Tubal ligation PAST SURGICAL HISTORY OF 2000 BRAIN SURG/HYDROCEPHALIS - PAST SURGICAL HISTORY OF 2000 REPAIR TENNIS ELBOW PAST SURGICAL HISTORY OF 09/07/06, 05/10,11/08 repair rotator cuff/tendon rt. shoulder PAST SURGICAL HISTORY OF 10/2017 ex lap, ALFRED PROCEDURE , COLOSTOMY PICC LINE INSERT/CONSULT 10/26/2017 REPAIR FIRST ABDOMINAL WALL HERNIA 04/05/2020 Hernia repair, incisional STEREOTACTIC LOCALIZATION BREAST BIOPSY 06/10/2015 right TUBAL LIGATION HX 1989 and 1991 VAGINAL HYSTERECTOMY UTERUS 250 GM/< 09/04/2008 Hysterectomy, vaginal/TVT Family History FAMILY HISTORY Problem Relation Age of Onset Heart Mother skin cancer on nose Breast Cancer Mother Heart Father Hypertension Father Heart Maternal Grandmother Thyroid Sister Thyroid Paternal Aunt Patient Allergies ALLERGIES Allergen Reactions Dilaudid [Hydromorp* Other: See Comments Pt states she hallucinates Sulfa (Sulfonamide * Rash Ultram [Tramadol Hc* GI Upset Pt. tried again on 02-13 and became very ill with GI issues Oxycontin [Oxycodon* Swelling Relafen [Nabumetone] GI Upset Current Medications Current Outpatient Medications on File Prior to Visit Medication Sig omeprazole (PRILOSEC) 40 mg capsule Take 1 capsule by mouth once daily. atorvastatin (LIPITOR) 40 mg tablet Take 1 tablet by mouth daily at bedtime. For cholesterol. azelastine (ASTELIN, ASTEPRO) 0.1% nasal spray Use 2 Sprays in each nostril twice daily as needed. metoprolol succinate ER (TOPROL XL) 50 mg 24 hr tablet Take 2 tablets by mouth once daily. CPAP Lifetime supplies for AutoPAP 6-11 cm H20 including mask, heated tubing, humidity, filters. Fax 30 day download report to [phone] to assess residual ahi. meloxicam (MOBIC) 15 mg tablet Take 1 tablet by mouth once daily. Take with food. sertraline (ZOLOFT) 100 mg tablet Take 1 tablet by mouth once daily. fluticasone (FLONASE) 50 mcg/actuation nasal spray Use 2 Sprays in each nostril once daily. Rinse mouth after use. traZODone (DESYREL) 100 mg tablet Take 2 tablets by mouth daily at bedtime. vit C-Zn gluc-herbal no.325 (ELDERBERRY ZINC VIT C) 90-15 mg lozg Use 1 Lozenge as instructed twice daily. losartan (COZAAR) 50 mg tablet 50 mg once daily. calcium carbonate (CALTRATE 600 ORAL) Take 1 tablet by mouth once daily. multivitamin tablet Take 1 tablet by mouth once daily. BIOTIN ORAL Take 1 tablet by mouth once daily. Cholecalciferol, Vitamin D3, 2,000 unit cap Take 10,000 Units by mouth once daily. cetirizine (ZYRTEC) 10 mg tablet Take 10 mg by mouth once daily. (Patient not taking: Reported on 05/16/2022) No current facility-administered medications on file prior to visit. Social History Social History Tobacco Use Smoking status: Former Packs/day: 0.10 Years: 2.00 Pack years: 0.20 Types: Cigarettes Quit date: 04/26/2010 Years since quittin.0 Smokeless tobacco: Never Tobacco comments: half a pack a week, hasn't smoked since 05/2009 Vaping Use Vaping Use: Never used Substance Use Topics Alcohol use: Yes Comment: occasionally, several times a month glass of wine or mixed drink Drug use: No Review of Symptoms REVIEW OF SYSTEMS GENERAL: No weight loss, malaise or fevers NECK: Negative for lumps, goiter, pain and significant neck swelling RESPIRATORY: Negative for worsening cough, hemoptysis, wheezing, COPD, dyspnea or shortness of breath CARDIOVASCULAR: Negative for chest pain, leg swelling, CHF or palpitations GI: see HPI : No history of dysuria, frequency or incontinence HEMATOLOGY/LYMPHOLOGY: Negative for prolonged bleeding, bruising easily or swollen nodes ENDOCRINE: Negative for cold or heat intolerance, polyuria, polydipsia and goiter NEURO: +headaches. No history of syncope, paralysis, seizures or tremors EXAM: BP 160/98 (BP Site: Left Arm, BP Position: Sitting, BP Cuff Size: Large Adult) Pulse (!) 56 Temp 36.4 C (97.6 F) Resp 16 Wt 88.5 kg (195 lb) LMP 08/04/2008 BMI 29.65 kg/m Last 3 Encounter BP Readings: Date: BP: 05/16/2022 160/98 05/05/2022 109/55 05/05/2022 154/78 General Appearance: Well appearing, alert, in no acute distress, well-hydrated, well nourished. and Obese. Eyes: Anicteric sclera. Pupils are equally round and reactive to light. Extraocular movements are intact. . Ears: External ears normal, canals clear, TMs pearly marsh. Oropharynx: Lips, mucosa, and tongue normal, teeth and gums normal, oropharynx normal. Neck: Supple, no adenopathy; thyroid symmetric, normal size, no bruits. Lungs: Lungs clear to auscultation. No wheezing, rhonchi, rales.. Heart: RRR without murmur, gallop, or rubs. No ectopy. Abdomen: tender to palp throughout. Worse in upper quad.. Extremities: No deformities, edema, skin discoloration, clubbing or cyanosis. Good capillary refill. . Peripheral Pulses: Normal. Neurologic: Gait normal. Reflexes normal and symmetric. Sensation grossly intact.. Health Maintenance List INFLUENZA(1) due on 05/04/2022 COVID-19 VACCINE(1) due on 07/26/2022 SHINGRIX VACCINE(1 of 2) due on 04/06/2023 BP CONTROLLED (<130/80) due on 06/13/2022 ANNUAL PCP TEAM CHRONIC DISEASE VISIT due on 04/06/2023 MAMMOGRAM due on 04/27/2023 DIABETES SCREEN due on 01/24/2025 LIPID SCREEN due on 04/19/2027 COLORECTAL CANCER SCREENING due on 05/05/2027 DTAP,TDAP,TD(5 - Td or Tdap) due on 03/12/2030 HEPATITIS C SCREENING Completed PAP TESTING Discontinued HPV TESTING Discontinued HIV SCREENING Discontinued Data reviewed N/a ASSESSMENT/PLAN: 1. Pre-op evaluation - ICD9: V72.84, ICD10: Z01.818 (primary diagnosis) Will check labs today. BP elevated and patient having significant abdominal pain, but recently dx with gastric ulcer. Prior to clearing patient, I would like to bring her back to recheck BP and make sure gastric symptoms are improving. I have also asked her to get cardiac clearance from her lead security officer. - CBC + DIFF - COMP METABOLIC PANEL - URINALYSIS, WITH MICROSCOPIC 2. Primary osteoarthritis of both shoulders - ICD9: 715.11, ICD10: M19.011, M19.012 See above - CBC + DIFF - COMP METABOLIC PANEL - URINALYSIS, WITH MICROSCOPIC 3. Mixed hyperlipidemia - ICD9: 272.2, ICD10: E78.2 - good control - Continue current medication. 4. Hypertension, essential - ICD9: 401.9, ICD10: I10 - poor control - Recommended regular aerobic exercise. - Recommend home blood pressure monitoring, to bring results in on next visit - Recheck in 1-2 weeks, sooner should new symptoms or problems arise. - Goal of BP <130/80 5. Thoracic aortic aneurysm without rupture (HCC) - ICD9: 441.2, ICD10: I71.2 Continue with cardio Patient to receive cardiac clearance from her lead security officer 6. Nonrheumatic mitral valve disorder, unspecified - ICD9: 424.0, ICD10: I34.9 As #5 7. Ascending aorta dilatation (HCC) - ICD9: 447.71, ICD10: I77.810 As #5 8. Essential tremor - ICD9: 333.1, ICD10: G25.0 9. Epigastric pain - ICD9: 789.06, ICD10: R10.13 - may be related to ulcer. - patient to set up follow up visit with gen surgery to go over results from scope. - will also check labs today. Discussed possible red flags and when to seek medical attention. Patient to set up follow up visit for recheck on today's symptoms and high BP prior to receiving medical clearance. Edwina Khoury PA-C documented in this encounter [facility] 05-05-2022 History and physical note UPDATED PROCEDURAL SEDATION HISTORY AND PHYSICAL EXAMINATION SERVICE DATE: 05/05/2022 SERVICE TIME: 6:40 AM PHYSICAL EXAM MUST BE COMPLETED ON ADMISSION PROCEDURE: Procedure Indications: The History and Physical (completed in the past 30 days) has been reviewed and the patient has been examined. The contents accurately reflect the patient's condition with the following additions or revisions since the H&P was completed. ASA Class: ASA Class:: Patient with mild systemic disease Examination indicates no changes. AIRWAY: Airway Visualization of Uvula: Yes Mouth opening greater than 2 fingerbreadths: Yes Neck Full Range of Motion: Yes LUNGS: Lungs clear to auscultation CARDIAC: Regular rhythm,Regular rate Provisional Diagnosis/Treatment Plan: diarrhea, EGD and Colonoscopy SEDATION GOAL: Moderate This H&P can be found in the attached. SIGNATURE: Carmine Montez MD PATIENT NAME: Kristina Macario DATE: May 05, 2022 TIME: 6:39 AM Source Note - Carmine Montez MD - 05/05/2022 7:30 AM EDT Images from the original note were not included. HISTORY AND PHYSICAL Kristina Macario 1960 REFERRING PHYSICIAN: Self CHIEF COMPLAINT: Consult (Diarrhea) HPI: The patient is a 61 year old female referred for endoscopy. Kristina notes concerns about frequent diarrhea and watery stools. She notes great difficulty in trying to get her stools to be solidified. She notes occasional abdominal cramping. She denies blood in her stools. She does note dark stools. She states she has had diarrhea for least the past 2 months ever since she was recovering from her COVID infection. He had previous diverticular abscess recurring partial colectomy with end Bowman's colostomy and then later reanastomosis complicated by an abscess. This was performed in 2017. The patient is current reflux or heartburn. She did have previous gastritis which was demonstrated in upper endoscopy 2 years previously Kristina has undergone prior endoscopy. Patient had upper and lower endoscopy in 2019. Patient had relatively severe COVID-pneumonia. Was treated with high flow oxygen. She still having sequela including need for oxygen currently. A CT scan in September demonstrated post viral groundglass appearances. The patient is being seen by me today at the request of Dr. Ganga Sheppard MD for my opinion and advice regarding unexplained diarrhea. 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 Jose Raul Camarena Excessive or frequent menstruation Heavy periods Fibromyalgia 02/26/2014 Hemorrhage of gastrointestinal tract, unspecified History of COVID-19 06/13/202105/2021 Hydrocephalus, adult (HCC) 02/09/2003 Hypertension, essential 01/22/2019 Mild dysplasia of cervix 2007 Mixed hyperlipidemia 01/20/2016 Nonrheumatic mitral valve disorder, unspecified 04/06/2016 Obstructive sleep apnea 10/13/2016 DME - [facility] Plantar fasciitis 2018 PMH - PAST MEDICAL HISTORY OF RECTAL BLEEDING Postcoital bleeding Primary insomnia 06/13/2021 Rectocele 04/19/2007 Renal cyst 07/13/2016 Situational mixed anxiety and depressive disorder 11/12/2017 Thoracic aortic aneurysm without rupture (HCC) 2018 Unspecified constipation Constipation Unspecified visual disturbance DOUBLE VISION Urge incontinence 04/19/2007 Vitamin D deficiency 07/23/2012 Well adult exam 06/13/2021 Last done: 06/13/2021 PAST SURGICAL HISTORY PAST SURGICAL HISTORY Procedure Laterality Date APPENDECTOMY APPENDECTOMY 1986 COLONOSCOPY 08-19-13 COLONOSCOPY FLX DX W/COLLJ SPEC WHEN PFRMD 09/19/2019 Colonoscopy COLONOSCOPY W/BIOPSY SINGLE/MULTIPLE 03-15-09 minimal colitis-repeat in COLPOSCOPY CERVIX UPPER/ADJACENT VAGINA Colposcopy DILATION & CURETTAGE DX&/THER NONOBSTETRIC 2003 Dilation & curettage EGD 08-19-13 ESOPHAGOGASTRODUODENOSCOPY TRANSORAL DIAGNOSTIC 09/19/2019 EGD LIG/TRNSXJ FLP TUBE ABDL/VAG APPR UNI/BI 1989&1991 Tubal ligation PAST SURGICAL HISTORY OF 2000 BRAIN SURG/HYDROCEPHALIS - PAST SURGICAL HISTORY OF 2000 REPAIR TENNIS ELBOW PAST SURGICAL HISTORY OF 09/07/06, 05/10,11/08 repair rotator cuff/tendon rt. shoulder PAST SURGICAL HISTORY OF 10/2017 ex lap, ALFRED PROCEDURE , COLOSTOMY PICC LINE INSERT/CONSULT 10/26/2017 REPAIR FIRST ABDOMINAL WALL HERNIA 04/05/2020 Hernia repair, incisional STEREOTACTIC LOCALIZATION BREAST BIOPSY 06/10/15 right TUBAL LIGATION HX 1989 and 1991 VAGINAL HYSTERECTOMY UTERUS 250 GM/< 09/04/2008 Hysterectomy, vaginal/TVT CURRENT MEDICATIONS Current Outpatient Medications Medication Sig peg 3350-Electrolytes (GOLYTELY) 236-22.74-6.74 -5.86 gram suspension Refer to printed prep instructions from your provider. atorvastatin (LIPITOR) 10 mg tablet Take 1 tablet by mouth daily at bedtime. For cholesterol. metoprolol succinate ER (TOPROL XL) 50 mg 24 hr tablet Take 1 tablet by mouth once daily. traZODone (DESYREL) 100 mg tablet Take 2 tablets by mouth daily at bedtime. meloxicam (MOBIC) 15 mg tablet Take 1 tablet by mouth once daily. Take with food. sertraline (ZOLOFT) 100 mg tablet Take 1 tablet by mouth once daily. albuterol (PROVENTIL) 2.5 mg /3 mL (0.083 %) nebulizer solution Use 3 mL via nebulizer every 6 hours as needed for wheezing/shortness of breath. Use over 5-15minutes. vit C-Zn gluc-herbal no.325 (ELDERBERRY ZINC VIT C) 90-15 mg lozg Use 1 Lozenge as instructed twice daily. albuterol HFA (PROVENTIL HFA, VENTOLIN HFA) 90 mcg/actuation inhaler Inhale 2 Puffs as instructed every 4 hours as needed for wheezing/shortness of breath. fluticasone (FLONASE) 50 mcg/actuation nasal spray Use 2 Sprays in each nostril once daily. Rinse mouth after use. losartan (COZAAR) 50 mg tablet 50 mg once daily. omega-3/dha/epa/dpa/fish oil (OMEGA-3 2100 ORAL) Take by mouth. CPAP Adjust pressures to Autopap 6-11 cm H2O, SEND Heat Humidity tubing (SHAYLA), suitable mask ( mask fitting for Airfit N30i), [employer] supplies, opt Chinstrap, G47.33. (Patient not taking: Reported on 07/19/2021 ) acetaminophen (TYLENOL) 650 mg/20.3 mL soln Take 20.3 mL by mouth every 6 hours as needed. calcium carbonate (CALTRATE 600 ORAL) Take 1 tablet by mouth once daily. multivitamin (MULTIPLE VITAMINS) tablet Take 1 tablet by mouth once daily. tiZANidine (ZANAFLEX) 4 mg tablet Take 1 tablet by mouth every 8 hours as needed. (Patient taking differently: Take 2 mg by mouth every 8 hours as needed. ) BIOTIN ORAL Take 1 tablet by mouth once daily. ASCORBIC ACID (VITAMIN C ORAL) Take 1 tablet by mouth once daily. Magnesium 30 mg tablet Take 30 mg by mouth twice daily. Cholecalciferol, Vitamin D3, 2,000 unit cap Take 2,000 Units by mouth once daily. Current Facility-Administered Medications Medication Dose Route Frequency perflutren lipid microspheres 1.3 mL in NaCl (PF) 0.9% 10 mL injection (DEFINITY) INTRAVENOUS DIRECTED PRN sodium chloride 0.9 % (flush) 10 mL (BD POSIFLUSH) 10 mL INTRAVENOUS DIRECTED PRN ALLERGIES: Dilaudid [Hydromorphone (Pf)], Sulfa (Sulfonamide Antibiotics), Ultram [Tramadol Hcl], Oxycontin [Oxycodone Hcl], and Relafen [Nabumetone] PERSONAL HISTORY: SOCIAL HISTORY Social History Tobacco Use Smoking status: Former Smoker Packs/day: 0.10 Years: 2.00 Pack years: 0.20 Types: Cigarettes Quit date: 04/26/2010 Years since quittin.6 Smokeless tobacco: Never Used Tobacco comment: half a pack a week, hasn't smoked since 05/2009 Vaping Use Vaping Use: Never used Substance Use Topics Alcohol use: Yes Comment: occasionally, several times a month glass of wine or mixed drink Drug use: No FAMILY HISTORY: FAMILY HISTORY FAMILY HISTORY Problem Relation Age of Onset Heart Mother skin cancer on nose Breast Cancer Mother Heart Father Hypertension Father Heart Maternal Grandmother Thyroid Sister Thyroid Paternal Aunt REVIEW OF SYMPTOMS: The review of systems data was entered by the nurse and reviewed by mi Nursing Notes: Felisa Loydz 12/15/2021 12:32 PM Signed REVIEW OF SYSTEMS: General: The patient NOTES fatigue, denies weight loss, NOTES weight gain, NOTES feeling hot, and denies feelings of cold. Eyes: The patient denies glaucoma, denies eye injury/surgery, wears glasses or contacts. Ear/Nose/Throat: The patient NOTES allergies, denies hayfever, NOTES ear infections, and denies bloody noses. Cardiovascular: The patient NOTES chest pain, denies heart disease, NOTES high blood pressure,denies cardiac stent, denies prior heart attack, NOTES irregular heart beat, NOTES high cholesterol, denies poor circulation, NOTES heart failure, other cardiac issues, denies claudication, NOTES cold feet, denies peripheral arterial stent. Respiratory: The patient denies tuberculosis, NOTES pneumonia, denies frequent cough, denies pulmonary embolism, denies shortness of breath, and denies coughing up blood. Gastrointestinal: The patient denies difficulty swallowing, denies acid reflux, denies ulcers, denies vomiting, denies jaundice/hepatitis, denies gallbladder problems, denies black or tarry stools, denies hemorrhoids, denies bleeding from rectum, NOTES diverticulitis, NOTES constipation, NOTES diarrhea, NOTES loss of stool control, and denies hernias. Kidney/Bladder: The patient denies kidney stones, NOTES urine infections, and denies bloody urine. Skin: The patient denies a history of skin cancer, denies bleeding/changing moles, and denies a history of skin rash. Neurologic: The patient denies a history of epilepsy/convulsions, NOTES headaches, denies head/spinal injuries, and denies stroke/TIA. Psychiatric: The patient denies psychiatric medications, NOTES depression, and denies voices, denies substance abuse. Endocrine: The patient denies thyroid disorders, denies diabetes, and denies hormonal problems. Hematologic: The patient NOTES a history of bruising, NOTES bleeding, and denies anemia, NOTES blood clots. Infections: The patient NOTES a history of measles and mumps, denies rheumatic fever, and denies sexually transmitted diseases. Musculoskeletal: The patient NOTES back pain/injury, NOTES back problems, NOTES sciatica, NOTES knee/foot trouble, NOTES arthritis, or denies gout. When was patient's last Mammogram screening? 04/14/2021 Last Colonoscopy: 09/19/2019 Felisa Chance PHYSICAL EXAMINATION: General: The patient is 61 year old female, well nourished, well hydrated in no acute distress. The patient is oriented to time, place, and person. VITALS: Blood pressure 132/69, pulse 65, temperature 36.9 C (98.4 F), height 174 cm (5' 8.5 ), weight 86.2 kg (190 lb), last menstrual period 08/04/2008, SpO2 100 %. Body mass index is 28.47 kg/m . HEENT: Normal cephalic, ataumatic, pupils are equally round, sclera are anicteric, mucous membranes are moist, oropharynx is clear. Neck has no masses, asymmetry or lymphadenopathy. Thyroid is unremarkable. Respiratory: Clear to auscultation and percussion. Normal respiratory excursion and pattern. Cardiac: Examination is regular rate and rhythm. Abdominal exam: Soft, nontender, with no palpable masses. No hepatosplenomegaly. No palpable hernias. Rectal exam: exam deferred Extremities: no clubbing, cyanosis or edema. No adenopathy. Other: LABORATORY VALUES: As Noted RADIOLOGIC STUDIES: As Noted Assessment IMPRESSION: Diarrhea of unexplained origin, history of gastritis, post COVID sequela of lung issues PLAN: I plan to obtain stool for occult blood, C. difficile, enteric pathogens, fecal leukocytes, and ova and parasites. If these are positive we will treat accordingly. I plan to perform upper and lower endoscopy. We discussed the risks and benefits of the planned endoscopy. I have informed the patient that complications can occur including failure to complete the endoscopy and perforation. The patient had the opportunity to ask questions concerning the planned endoscopy. My staff has also explained the procedure to the patient in understandable terms and has given the patient printed material concerning the procedure. The patient freely consents to surgery. I plan to use golytely bowel preparation for endoscopy I plan for monitored anesthetic care. Diagnoses: (R19.7) Diarrhea of presumed infectious origin (primary encounter diagnosis) My findings have been communicated to Dr. Ganga Sheppard MD via shared medical record. This note will be forwarded to Dr. Ganga Sheppard MD. Return to Clinic: The patient is instructed to follow-up with me after the testing has been completed. Carmine Montez MD Images from the original note were not included. HISTORY AND PHYSICAL Kristina Macario 1960 REFERRING PHYSICIAN: Self CHIEF COMPLAINT: Consult (Diarrhea) HPI: The patient is a 61 year old female referred for endoscopy. Kristina notes concerns about frequent diarrhea and watery stools. She notes great difficulty in trying to get her stools to be solidified. She notes occasional abdominal cramping. She denies blood in her stools. She does note dark stools. She states she has had diarrhea for least the past 2 months ever since she was recovering from her COVID infection. He had previous diverticular abscess recurring partial colectomy with end Bowman's colostomy and then later reanastomosis complicated by an abscess. This was performed in 2017. The patient is current reflux or heartburn. She did have previous gastritis which was demonstrated in upper endoscopy 2 years previously Kristina has undergone prior endoscopy. Patient had upper and lower endoscopy in 2019. Patient had relatively severe COVID-pneumonia. Was treated with high flow oxygen. She still having sequela including need for oxygen currently. A CT scan in September demonstrated post viral groundglass appearances. The patient is being seen by me today at the request of Dr. Ganga Sheppard MD for my opinion and advice regarding unexplained diarrhea. 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 Jose Raul Camarena Excessive or frequent menstruation Heavy periods Fibromyalgia 02/26/2014 Hemorrhage of gastrointestinal tract, unspecified History of COVID-19 06/13/202105/2021 Hydrocephalus, adult (HCC) 02/09/2003 Hypertension, essential 01/22/2019 Mild dysplasia of cervix 2007 Mixed hyperlipidemia 01/20/2016 Nonrheumatic mitral valve disorder, unspecified 04/06/2016 Obstructive sleep apnea 10/13/2016 DME - [facility] Plantar fasciitis 2018 PMH - PAST MEDICAL HISTORY OF RECTAL BLEEDING Postcoital bleeding Primary insomnia 06/13/2021 Rectocele 04/19/2007 Renal cyst 07/13/2016 Situational mixed anxiety and depressive disorder 11/12/2017 Thoracic aortic aneurysm without rupture (HCC) 2018 Unspecified constipation Constipation Unspecified visual disturbance DOUBLE VISION Urge incontinence 04/19/2007 Vitamin D deficiency 07/23/2012 Well adult exam 06/13/2021 Last done: 06/13/2021 PAST SURGICAL HISTORY PAST SURGICAL HISTORY Procedure Laterality Date APPENDECTOMY APPENDECTOMY 1987 COLONOSCOPY 08-19-13 COLONOSCOPY FLX DX W/COLLJ SPEC WHEN PFRMD 09/19/2019 Colonoscopy COLONOSCOPY W/BIOPSY SINGLE/MULTIPLE 03-15-09 minimal colitis-repeat in COLPOSCOPY CERVIX UPPER/ADJACENT VAGINA Colposcopy DILATION & CURETTAGE DX&/THER NONOBSTETRIC 2002 Dilation & curettage EGD 08-19-13 ESOPHAGOGASTRODUODENOSCOPY TRANSORAL DIAGNOSTIC 09/19/2019 EGD LIG/TRNSXJ FLP TUBE ABDL/VAG APPR UNI/BI 1989&1991 Tubal ligation PAST SURGICAL HISTORY OF 2000 BRAIN SURG/HYDROCEPHALIS - PAST SURGICAL HISTORY OF 2000 REPAIR TENNIS ELBOW PAST SURGICAL HISTORY OF 09/07/06, 05/10,11/08 repair rotator cuff/tendon rt. shoulder PAST SURGICAL HISTORY OF 10/2017 ex lap, ALFRED PROCEDURE , COLOSTOMY PICC LINE INSERT/CONSULT 10/26/2017 REPAIR FIRST ABDOMINAL WALL HERNIA 04/05/2020 Hernia repair, incisional STEREOTACTIC LOCALIZATION BREAST BIOPSY 06/10/15 right TUBAL LIGATION HX 1989 and 1991 VAGINAL HYSTERECTOMY UTERUS 250 GM/< 09/04/2008 Hysterectomy, vaginal/TVT CURRENT MEDICATIONS Current Outpatient Medications Medication Sig peg 3350-Electrolytes (GOLYTELY) 236-22.74-6.74 -5.86 gram suspension Refer to printed prep instructions from your provider. atorvastatin (LIPITOR) 10 mg tablet Take 1 tablet by mouth daily at bedtime. For cholesterol. metoprolol succinate ER (TOPROL XL) 50 mg 24 hr tablet Take 1 tablet by mouth once daily. traZODone (DESYREL) 100 mg tablet Take 2 tablets by mouth daily at bedtime. meloxicam (MOBIC) 15 mg tablet Take 1 tablet by mouth once daily. Take with food. sertraline (ZOLOFT) 100 mg tablet Take 1 tablet by mouth once daily. albuterol (PROVENTIL) 2.5 mg /3 mL (0.083 %) nebulizer solution Use 3 mL via nebulizer every 6 hours as needed for wheezing/shortness of breath. Use over 5-15minutes. vit C-Zn gluc-herbal no.325 (ELDERBERRY ZINC VIT C) 90-15 mg lozg Use 1 Lozenge as instructed twice daily. albuterol HFA (PROVENTIL HFA, VENTOLIN HFA) 90 mcg/actuation inhaler Inhale 2 Puffs as instructed every 4 hours as needed for wheezing/shortness of breath. fluticasone (FLONASE) 50 mcg/actuation nasal spray Use 2 Sprays in each nostril once daily. Rinse mouth after use. losartan (COZAAR) 50 mg tablet 50 mg once daily. omega-3/dha/epa/dpa/fish oil (OMEGA-3 2100 ORAL) Take by mouth. CPAP Adjust pressures to Autopap 6-11 cm H2O, SEND Heat Humidity tubing (SHAYLA), suitable mask ( mask fitting for Airfit N30i), [employer] supplies, opt Chinstrap, G47.33. (Patient not taking: Reported on 07/19/2021 ) acetaminophen (TYLENOL) 650 mg/20.3 mL soln Take 20.3 mL by mouth every 6 hours as needed. calcium carbonate (CALTRATE 600 ORAL) Take 1 tablet by mouth once daily. multivitamin (MULTIPLE VITAMINS) tablet Take 1 tablet by mouth once daily. tiZANidine (ZANAFLEX) 4 mg tablet Take 1 tablet by mouth every 8 hours as needed. (Patient taking differently: Take 2 mg by mouth every 8 hours as needed. ) BIOTIN ORAL Take 1 tablet by mouth once daily. ASCORBIC ACID (VITAMIN C ORAL) Take 1 tablet by mouth once daily. Magnesium 30 mg tablet Take 30 mg by mouth twice daily. Cholecalciferol, Vitamin D3, 2,000 unit cap Take 2,000 Units by mouth once daily. Current Facility-Administered Medications Medication Dose Route Frequency perflutren lipid microspheres 1.3 mL in NaCl (PF) 0.9% 10 mL injection (DEFINITY) INTRAVENOUS DIRECTED PRN sodium chloride 0.9 % (flush) 10 mL (BD POSIFLUSH) 10 mL INTRAVENOUS DIRECTED PRN ALLERGIES: Dilaudid [Hydromorphone (Pf)], Sulfa (Sulfonamide Antibiotics), Ultram [Tramadol Hcl], Oxycontin [Oxycodone Hcl], and Relafen [Nabumetone] PERSONAL HISTORY: SOCIAL HISTORY Social History Tobacco Use Smoking status: Former Smoker Packs/day: 0.10 Years: 2.00 Pack years: 0.20 Types: Cigarettes Quit date: 04/26/2010 Years since quittin.6 Smokeless tobacco: Never Used Tobacco comment: half a pack a week, hasn't smoked since 05/2009 Vaping Use Vaping Use: Never used Substance Use Topics Alcohol use: Yes Comment: occasionally, several times a month glass of wine or mixed drink Drug use: No FAMILY HISTORY: FAMILY HISTORY FAMILY HISTORY Problem Relation Age of Onset Heart Mother skin cancer on nose Breast Cancer Mother Heart Father Hypertension Father Heart Maternal Grandmother Thyroid Sister Thyroid Paternal Aunt REVIEW OF SYMPTOMS: The review of systems data was entered by the nurse and reviewed by mi Nursing Notes: Felisa Chance 12/15/2021 12:32 PM Signed REVIEW OF SYSTEMS: General: The patient NOTES fatigue, denies weight loss, NOTES weight gain, NOTES feeling hot, and denies feelings of cold. Eyes: The patient denies glaucoma, denies eye injury/surgery, wears glasses or contacts. Ear/Nose/Throat: The patient NOTES allergies, denies hayfever, NOTES ear infections, and denies bloody noses. Cardiovascular: The patient NOTES chest pain, denies heart disease, NOTES high blood pressure,denies cardiac stent, denies prior heart attack, NOTES irregular heart beat, NOTES high cholesterol, denies poor circulation, NOTES heart failure, other cardiac issues, denies claudication, NOTES cold feet, denies peripheral arterial stent. Respiratory: The patient denies tuberculosis, NOTES pneumonia, denies frequent cough, denies pulmonary embolism, denies shortness of breath, and denies coughing up blood. Gastrointestinal: The patient denies difficulty swallowing, denies acid reflux, denies ulcers, denies vomiting, denies jaundice/hepatitis, denies gallbladder problems, denies black or tarry stools, denies hemorrhoids, denies bleeding from rectum, NOTES diverticulitis, NOTES constipation, NOTES diarrhea, NOTES loss of stool control, and denies hernias. Kidney/Bladder: The patient denies kidney stones, NOTES urine infections, and denies bloody urine. Skin: The patient denies a history of skin cancer, denies bleeding/changing moles, and denies a history of skin rash. Neurologic: The patient denies a history of epilepsy/convulsions, NOTES headaches, denies head/spinal injuries, and denies stroke/TIA. Psychiatric: The patient denies psychiatric medications, NOTES depression, and denies voices, denies substance abuse. Endocrine: The patient denies thyroid disorders, denies diabetes, and denies hormonal problems. Hematologic: The patient NOTES a history of bruising, NOTES bleeding, and denies anemia, NOTES blood clots. Infections: The patient NOTES a history of measles and mumps, denies rheumatic fever, and denies sexually transmitted diseases. Musculoskeletal: The patient NOTES back pain/injury, NOTES back problems, NOTES sciatica, NOTES knee/foot trouble, NOTES arthritis, or denies gout. When was patient's last Mammogram screening? 04/14/2021 Last Colonoscopy: 09/19/2019 Felisa Chance PHYSICAL EXAMINATION: General: The patient is 61 year old female, well nourished, well hydrated in no acute distress. The patient is oriented to time, place, and person. VITALS: Blood pressure 132/69, pulse 65, temperature 36.9 C (98.4 F), height 174 cm (5' 8.5 ), weight 86.2 kg (190 lb), last menstrual period 08/04/2008, SpO2 100 %. Body mass index is 28.47 kg/m . HEENT: Normal cephalic, ataumatic, pupils are equally round, sclera are anicteric, mucous membranes are moist, oropharynx is clear. Neck has no masses, asymmetry or lymphadenopathy. Thyroid is unremarkable. Respiratory: Clear to auscultation and percussion. Normal respiratory excursion and pattern. Cardiac: Examination is regular rate and rhythm. Abdominal exam: Soft, nontender, with no palpable masses. No hepatosplenomegaly. No palpable hernias. Rectal exam: exam deferred Extremities: no clubbing, cyanosis or edema. No adenopathy. Other: LABORATORY VALUES: As Noted RADIOLOGIC STUDIES: As Noted Assessment IMPRESSION: Diarrhea of unexplained origin, history of gastritis, post COVID sequela of lung issues PLAN: I plan to obtain stool for occult blood, C. difficile, enteric pathogens, fecal leukocytes, and ova and parasites. If these are positive we will treat accordingly. I plan to perform upper and lower endoscopy. We discussed the risks and benefits of the planned endoscopy. I have informed the patient that complications can occur including failure to complete the endoscopy and perforation. The patient had the opportunity to ask questions concerning the planned endoscopy. My staff has also explained the procedure to the patient in understandable terms and has given the patient printed material concerning the procedure. The patient freely consents to surgery. I plan to use golytely bowel preparation for endoscopy I plan for monitored anesthetic care. Diagnoses: (R19.7) Diarrhea of presumed infectious origin (primary encounter diagnosis) My findings have been communicated to Dr. Ganga Sheppard MD via shared medical record. This note will be forwarded to Dr. Ganga Sheppard MD. Return to Clinic: The patient is instructed to follow-up with me after the testing has been completed. Carmine Montez MD documented in this encounter [facility] 04-28-2022 Miscellaneous Notes April 28, 2022 PID: [id number] Kristina Macario [address] [place] [address] Dear Ms. Macario, We are pleased to inform you that the results of your recent breast imaging exam on 04/27/2022 are normal. Early detection of cancer is very important. We also understand recommendations regarding breast cancer screening are controversial. Please discuss with your primary care provider which strategy is best for you and whether a mammogram is right for you. Your imaging studies and report will be kept on file at [facility] as part of your permanent medical record and are available for your continuing care. Thank you for allowing us to help in meeting your health care needs. Sincerely, Dr. Leos Interpreting Radiologist (Normal over 40) documented in this encounter [facility] 04-27-2022 History of Present illness Narrative Radiology Service Progress Note PATIENT NAME: Kristina Macario DATE OF SERVICE: April 27, 2022 TIME: 1:34 PM PATIENT IDENTITY VERIFICATION COMPLETED USING TWO (2) IDENTIFIERS: Name and Date of confirmed by patient verbally. FALL SCREENING: Has the patient had 2 falls in the last year or 1 fall with injury or currently using an Ambulatory Assistive Device (Walker, Cane, Wheelchair, Crutches, etc.)? No PATIENT GENDER DATA: Female. status: : No status: NO. PATIENT RELEVANT IMPLANT DATA REVIEWED: Not Applicable RADIOLOGY DEPARTMENT: Mammography PERIPHERAL IV DATA: Not applicable SIGNED BY: RT Monroe(R) April 27, 2022 1:34 PM documented in this encounter [facility] 04-25-2022 Miscellaneous Notes The following approved medication requests have been transmitted electronically. Requested Prescriptions Signed Prescriptions Disp Refills atorvastatin (LIPITOR) 40 mg tablet 90 tablet 1 Sig: Take 1 tablet by mouth daily at bedtime. For cholesterol. Authorizing Provider: EDWINA KHOURY PA-C Spoke with pt and information listed below given. Pt verbalizes understanding. Pt agrees to the increase in medication. Okay to fill. Pharmacy updated. Arline Lott LPN Left message for patient to contact office. Francine Ortiz MA Let patient know thyroid labs, CBC and Vit D were ok. Lipid panel shows improved LDL at 107 from 165 but would like to see closer to 70 with her dilated aorta. I would like to increase the lipitor to 40 mg a day. If ok will send in new script. documented in this encounter [facility] 04-11-2022 Instructions Salome Wong MD - 04/11/2022 9:31 AM EDT Allergy skin tests to inhalant allergens were negative Use fluticasone nasal spray (generic flonase) 2 sprays to each nostril once a day every day on a regular basis Use astelin nasal spray 2 sprays to each nostril twice a day as needed documented in this encounter [facility] 04-11-2022 Nurse Note Patient here for allergy skin testing. Off antihistamines past 5 days. No concerns at this time. documented in this encounter [facility] 04-11-2022 History of Present illness Narrative Kristina Macario is a 61 year old female with a history of chronic rhinitis and chronic shortness of breath following COVID-19 infection who presents for a follow-up visit and for the completion of allergy skin tests. Her last visit was March 08, 2022. She has had continued nasal congestion and postnasal drip. She has not been using fluticasone nasal spray regularly as she was concerned that this medication may interfere with her allergy skin test results. She complains of cough. She is no longer using supplemental oxygen during the day. Infrequent albuterol use for acute symptoms. (From initial visit on 03/08/22 This is a consultation requested by Dr. Sheppard for an allergy and immunology evaluation. My final recommendations will be communicated back to the requesting healthcare provider(s) by way of shared medical record or via [place] mail. Kristina Macario is a 61 year old female who has symptoms of itchy eyes, watery eyes, clear rhinorrhea, nasal congestion, sneezing, postnasal drip. Associated symptoms include cough . These symptoms are perennial. Symptoms are worse outdoors and upon awakening in the morning. No other identified triggers of her symptoms. The patient has been suffering from these symptoms for several year(s). The patient has tried Claritin, Zyrtec and Flonase with fair relief of symptoms. Uses Flonase only about once per week. Immunotherapy has never been tried. She has taken 3-4 courses of antibiotics for sinusitis in the past year. Visualized paranasal sinuses were clear on CT brain completed February 22, 2022. Denies a history of nasal fracture or nasal polyposis. No prior nasal or sinus surgery. She sees pulmonary medicine for chronic dyspnea following COVID-19 infection. Denies a history of asthma. Symptoms include cough, wheezing, chest tightness and shortness of breath. Occasional nocturnal awakenings due to respiratory symptoms. Uses albuterol less than once per week for acute symptoms. She is on 2 to 3 L of oxygen via nasal cannula. She was hospitalized for 1 week in May 2021 for COVID-19 complicated by bilateral pneumonia. Denies ICU or intubation. She took 3 courses of systemic steroids for respiratory symptoms in the 2020. She notes GERD symptoms 1-2 times per week. REVIEW OF SYSTEMS: .Negative for fevers, chills, night sweats and unintentional weight loss. All other review of systems negative except for those listed above. PAST MEDICAL HISTORY Diagnosis Date Abnormal mammogram Advance directive discussed with patient 04/06/2022 Discussed 04/06/2022 Arthritis of knee, left 01/31/2013 Arthritis of left hip 01/19/2016 Ascending aorta dilatation (HCC) 07/04/2017 04/19/16: 4.2 cm 06/11/17: 4.4 cm 06/24/18 4.4 cm Cervical high risk human papillomavirus (HPV) DNA test positive 05/27/2008 Chronic anxiety 06/01/2021 Chronic diarrhea 12/09/2018 Chronic hypoxemic respiratory failure (HCC) 09/06/2021 resolved Chronic prescription benzodiazepine use 06/01/2021 DDD (degenerative disc disease), lumbar 07/24/[address] Jose Raul Camarena Essential tremor 04/06/2022 Ex-smoker 04/06/2022 Excessive or frequent menstruation Heavy periods Fibromyalgia 02/26/2014 Hemorrhage of gastrointestinal tract, unspecified History of COVID-19 06/13/202105/2021 Hydrocephalus, adult ([facility]) 02/09/2003 Hypertension, essential 01/22/2019 Living will on file 04/06/2022 DPA: Victoriano () Lung nodule 01/24/2022 Seeing pulm Migraines 07/26/2021 Used to see neuro and was getting Botox Mild dysplasia of cervix 2006 Mixed hyperlipidemia 01/20/2016 Nonrheumatic mitral valve disorder, unspecified 04/06/2016 Obstructive sleep apnea 10/13/2016 DME - [facility] Plantar fasciitis 2018 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 Babs Guerra Postcoital bleeding Primary insomnia 06/13/2021 Primary osteoarthritis of both shoulders 04/06/2022 Seeing [facility] Rectocele 04/19/2007 Renal cyst 07/13/2016 Situational mixed anxiety and depressive disorder 11/12/2017 Thoracic aortic aneurysm without rupture (HCC) 2018 Urge incontinence 04/19/2007 Vitamin D deficiency 07/23/2012 Well adult exam 06/13/2021 Last done: 06/13/2021 MEDICATIONS: metoprolol succinate ER (TOPROL XL) 50 mg 24 hr tablet^Take 2 tablets by mouth once daily.^Disp: ^Rfl: methylPREDNISolone (MEDROL, KERWIN,) 4 mg Dose-Pack^Follow dosing instructions, take with food.^Disp: 1 Package^Rfl: 0 Ciclopirox (LOPROX) 8 % solution^Apply to affected area daily at bedtime. For seven days. Then clean off and repeat process. For 10-12 months^Disp: 6.6 mL^Rfl: 5 CPAP^Lifetime supplies for AutoPAP 6-11 cm H20 including mask, heated tubing, humidity, filters. Fax 30 day download report to [phone] to assess residual ahi.^Disp: ^Rfl: meloxicam (MOBIC) 15 mg tablet^Take 1 tablet by mouth once daily. Take with food.^Disp: 90 tablet^Rfl: 1 hydrOXYzine HCl (ATARAX) 10 mg tablet^Take 1 tablet by mouth three times daily as needed.^Disp: 60 tablet^Rfl: 1 atorvastatin (LIPITOR) 20 mg tablet^Take 1 tablet by mouth daily at bedtime. For cholesterol.^Disp: 90 tablet^Rfl: 1 sertraline (ZOLOFT) 100 mg tablet^Take 1 tablet by mouth once daily.^Disp: 30 tablet^Rfl: 5 fluticasone (FLONASE) 50 mcg/actuation nasal spray^Use 2 Sprays in each nostril once daily. Rinse mouth after use.^Disp: 1 Each^Rfl: 0 traZODone (DESYREL) 100 mg tablet^Take 2 tablets by mouth daily at bedtime.^Disp: 180 tablet^Rfl: 1 albuterol (PROVENTIL) 2.5 mg /3 mL (0.083 %) nebulizer solution^Use 3 mL via nebulizer every 6 hours as needed for wheezing/shortness of breath. Use over 5-15minutes.^Disp: 300 mL^Rfl: 1 vit C-Zn gluc-herbal no.325 (ELDERBERRY ZINC VIT C) 90-15 mg lozg^Use 1 Lozenge as instructed twice daily.^Disp: ^Rfl: albuterol HFA (PROVENTIL HFA, VENTOLIN HFA) 90 mcg/actuation inhaler^Inhale 2 Puffs as instructed every 4 hours as needed for wheezing/shortness of breath.^Disp: 8 g^Rfl: 0 losartan (COZAAR) 50 mg tablet^50 mg once daily. ^Disp: ^Rfl: omega-3/dha/epa/dpa/fish oil (OMEGA-3 2100 ORAL)^Take by mouth.^Disp: ^Rfl: acetaminophen (TYLENOL) 650 mg/20.3 mL soln^Take 20.3 mL by mouth every 6 hours as needed.^Disp: ^Rfl: calcium carbonate (CALTRATE 600 ORAL)^Take 1 tablet by mouth once daily.^Disp: ^Rfl: multivitamin (MULTIPLE VITAMINS) tablet^Take 1 tablet by mouth once daily.^Disp: ^Rfl: tiZANidine (ZANAFLEX) 4 mg tablet^Take 1 tablet by mouth every 8 hours as needed.^Disp: 30 tablet^Rfl: 1 (Patient taking differently: Take 2 mg by mouth every 8 hours as needed. ) BIOTIN ORAL^Take 1 tablet by mouth once daily.^Disp: ^Rfl: ASCORBIC ACID (VITAMIN C ORAL)^Take 1 tablet by mouth once daily. ^Disp: ^Rfl: Magnesium 30 mg tablet^Take 30 mg by mouth twice daily.^Disp: ^Rfl: Cholecalciferol, Vitamin D3, 2,000 unit cap^Take 10,000 Units by mouth once daily. ^Disp: ^Rfl: 0 ALLERGIES: Allergies As of Date: 04/11/2022 Allergen Noted Reaction DILAUDID [HYDROMORPHONE (PF)] 05/24/2018 Other: See Comments SULFA (SULFONAMIDE ANTIBIOTICS) 02/09/2003 Rash ULTRAM [TRAMADOL HCL] 05/01/2007 GI Upset OXYCONTIN [OXYCODONE HCL] 12/29/2008 Swelling RELAFEN [NABUMETONE] 07/28/2005 GI Upset Fully Assessed 04/11/2022 PAST SURGICAL HISTORY Procedure Laterality Date APPENDECTOMY 1987 COLONOSCOPY 08/19/2013 COLONOSCOPY FLX DX W/COLLJ SPEC WHEN PFRMD 09/19/2019 Colonoscopy COLONOSCOPY W/BIOPSY SINGLE/MULTIPLE 03/15/2009 minimal colitis-repeat in COLPOSCOPY CERVIX UPPER/ADJACENT VAGINA Colposcopy DILATION & CURETTAGE DX&/THER NONOBSTETRIC 2002 Dilation & curettage ESOPHAGOGASTRODUODENOSCOPY TRANSORAL DIAGNOSTIC 09/19/2019 EGD LIG/TRNSXJ FLP TUBE ABDL/VAG APPR UNI/BI 1989&1991 Tubal ligation PAST SURGICAL HISTORY OF 2000 BRAIN SURG/HYDROCEPHALIS - PAST SURGICAL HISTORY OF 2000 REPAIR TENNIS ELBOW PAST SURGICAL HISTORY OF 09/07/06, 05/10,11/08 repair rotator cuff/tendon rt. shoulder PAST SURGICAL HISTORY OF 10/2017 ex lap, ALFRED PROCEDURE , COLOSTOMY PICC LINE INSERT/CONSULT 10/26/2017 REPAIR FIRST ABDOMINAL WALL HERNIA 04/05/2020 Hernia repair, incisional STEREOTACTIC LOCALIZATION BREAST BIOPSY 06/10/2015 right TUBAL LIGATION HX 1989 and 1991 VAGINAL HYSTERECTOMY UTERUS 250 GM/< 09/04/2008 Hysterectomy, vaginal/TVT FAMILY HISTORY: Allergic rhinitis:no. Asthma: yes: son and daughter. Eczema: no. Cystic fibrosis: no. Immunodeficiency: no. 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 Pets in the home: 1 dogs Outdoor animals: 3 cats Tobacco smoke: No exposure in the home. Physical Exam: GENERAL APPEARANCE:Well appearing, alert, in no acute distress, well-hydrated, well nourished. HEENT: NCAT. EYES: conjunctiva and sclera normal. EARS: External ears normal. Canals clear. TM's normal. NOSE/SINUS: mild edema of the nasal mucosa with scant clear secretions bilaterally THROAT: no erythema NECK:neck supple, no adenopathy HEART:RRR with normal S1 and S2 ,no murmurs, no gallops, no rubs LUNGS: clear to auscultation bilaterally, no wheezes, rales or rhonchi EXTREMITIES:Extremities normal, No deformities, No skin discoloration and No edema SKIN: Skin color, texture, turgor normal. No rashes or lesions. ALLERGY SKIN TESTS on April 11, 2022: Negative to inhalant allergens on both prick and intradermal tests. ASSESSMENT/PLAN: 1.) Nonallergic rhinitis Recommend regular use of fluticasone nasal spray 2 sprays to each nostril once daily. Start Astelin 2 sprays each nostril twice a day as needed. 2.) Chronic dyspnea following COVID-19 infection: Continue albuterol HFA inhaler with spacer 2 puffs or albuterol 2.5 mg nebulized every 4 hours as needed. Continue to follow-up with pulmonary medicine. 3.) Discussed medication dosage, usage, side effects, and goals of treatment in detail. 4.) Follow-up in 1 yr/prn- patient will return sooner should new symptoms or problems arise. Salome Wong MD documented in this encounter [facility] 04-06-2022 History of Present illness Narrative Chief Complaint Patient presents with: Physical HPI Kristina Macario is a 61 year old female who presents here today for Physical. Patient with hx of HLP, HTN, Thoracic aortic aneurysm, Ascending aorta dilatation, Aortic regurge seeing cardio, HUBER, Recent covid illness, mixed anxiety/depression, vit D def, Fibro, primary insomnia, Hydrocephalus, as well as those reviewed and addressed below in in ROS. Patient indicated some unsteady issues; no falls; but close calls. Also was when she was in her car yesterday putting seat belt on she turned and felt a pop having pain in left shoulder. Patient discussed her balance issues along with her incontinence and memory concerns with her Neurologist recently and underwent a lumbar puncture with her Hx of Hydrocephalus. Patient feels this was beneficial but still with some symptoms. Past medical history, appointments, medications, allergies reviewed. Previous Medical History PAST MEDICAL HISTORY Diagnosis Date Abnormal mammogram Arthritis of knee, left 01/31/2013 Arthritis of left hip 01/19/2016 Ascending aorta dilatation (HCC) 07/04/2017 04/19/16: 4.2 cm 06/11/17: 4.4 cm 06/24/18 4.4 cm Cervical high risk human papillomavirus (HPV) DNA test positive 05/27/2008 Chronic anxiety 06/01/2021 Chronic diarrhea 12/09/2018 Chronic hypoxemic respiratory failure (HCC) 09/06/2021 resolved DDD (degenerative disc disease), lumbar 07/24/[address] Knapic [facility] Excessive or frequent menstruation Heavy periods Fibromyalgia 02/26/2014 Hemorrhage of gastrointestinal tract, unspecified History of COVID-19 06/13/202105/2021 Hydrocephalus, adult (HCC) 02/09/2003 Hypertension, essential 01/22/2019 Lung nodule < 6cm on CT 01/24/2022 Seeing pulm Migraines 07/26/2021 Used to see neuro and was getting Botox Mild dysplasia of cervix 2006 Mixed hyperlipidemia 01/20/2016 Nonrheumatic mitral valve disorder, unspecified 04/06/2016 Obstructive sleep apnea 10/13/2016 DME - [facility] Plantar fasciitis 2018 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 Babs Guerra Postcoital bleeding Primary insomnia 06/13/2021 Rectocele 04/19/2007 Renal cyst 07/13/2016 Situational mixed anxiety and depressive disorder 11/12/2017 Thoracic aortic aneurysm without rupture (HCC) 2018 Urge incontinence 04/19/2007 Vitamin D deficiency 07/23/2012 Well adult exam 06/13/2021 Last done: 06/13/2021 Previous Surgical History PAST SURGICAL HISTORY Procedure Laterality Date APPENDECTOMY 1987 COLONOSCOPY 08/19/2013 COLONOSCOPY FLX DX W/COLLJ SPEC WHEN PFRMD 09/19/2019 Colonoscopy COLONOSCOPY W/BIOPSY SINGLE/MULTIPLE 03/15/2009 minimal colitis-repeat in COLPOSCOPY CERVIX UPPER/ADJACENT VAGINA Colposcopy DILATION & CURETTAGE DX&/THER NONOBSTETRIC 2002 Dilation & curettage ESOPHAGOGASTRODUODENOSCOPY TRANSORAL DIAGNOSTIC 09/19/2019 EGD LIG/TRNSXJ FLP TUBE ABDL/VAG APPR UNI/BI 1989&1991 Tubal ligation PAST SURGICAL HISTORY OF 2000 BRAIN SURG/HYDROCEPHALIS - PAST SURGICAL HISTORY OF 2000 REPAIR TENNIS ELBOW PAST SURGICAL HISTORY OF 09/07/06, 05/10,11/08 repair rotator cuff/tendon rt. shoulder PAST SURGICAL HISTORY OF 10/2017 ex lap, ALFRED PROCEDURE , COLOSTOMY PICC LINE INSERT/CONSULT 10/26/2017 REPAIR FIRST ABDOMINAL WALL HERNIA 04/05/2020 Hernia repair, incisional STEREOTACTIC LOCALIZATION BREAST BIOPSY 06/10/2015 right TUBAL LIGATION HX 1989 and 1991 VAGINAL HYSTERECTOMY UTERUS 250 GM/< 09/04/2008 Hysterectomy, vaginal/TVT Family History FAMILY HISTORY Problem Relation Age of Onset Heart Mother skin cancer on nose Breast Cancer Mother Heart Father Hypertension Father Heart Maternal Grandmother Thyroid Sister Thyroid Paternal Aunt Patient Allergies ALLERGIES Allergen Reactions Dilaudid [Hydromorp* Other: See Comments Pt states she hallucinates Sulfa (Sulfonamide * Rash Ultram [Tramadol Hc* GI Upset Pt. tried again on 02-13 and became very ill with GI issues Oxycontin [Oxycodon* Swelling Relafen [Nabumetone] GI Upset Current Medications Current Outpatient Medications on File Prior to Visit Medication Sig CPAP Lifetime supplies for AutoPAP 6-11 cm H20 including mask, heated tubing, humidity, filters. Fax 30 day download report to [phone] to assess residual ahi. meloxicam (MOBIC) 15 mg tablet Take 1 tablet by mouth once daily. Take with food. hydrOXYzine HCl (ATARAX) 10 mg tablet Take 1 tablet by mouth three times daily as needed. atorvastatin (LIPITOR) 20 mg tablet Take 1 tablet by mouth daily at bedtime. For cholesterol. sertraline (ZOLOFT) 100 mg tablet Take 1 tablet by mouth once daily. fluticasone (FLONASE) 50 mcg/actuation nasal spray Use 2 Sprays in each nostril once daily. Rinse mouth after use. metoprolol succinate ER (TOPROL XL) 50 mg 24 hr tablet Take 1 tablet by mouth once daily. (Patient taking differently: Take 100 mg by mouth once daily. ) traZODone (DESYREL) 100 mg tablet Take 2 tablets by mouth daily at bedtime. albuterol (PROVENTIL) 2.5 mg /3 mL (0.083 %) nebulizer solution Use 3 mL via nebulizer every 6 hours as needed for wheezing/shortness of breath. Use over 5-15minutes. (Patient not taking: Reported on 03/20/2022 ) vit C-Zn gluc-herbal no.325 (ELDERBERRY ZINC VIT C) 90-15 mg lozg Use 1 Lozenge as instructed twice daily. albuterol HFA (PROVENTIL HFA, VENTOLIN HFA) 90 mcg/actuation inhaler Inhale 2 Puffs as instructed every 4 hours as needed for wheezing/shortness of breath. (Patient not taking: Reported on 03/20/2022 ) losartan (COZAAR) 50 mg tablet 50 mg once daily. omega-3/dha/epa/dpa/fish oil (OMEGA-3 2100 ORAL) Take by mouth. acetaminophen (TYLENOL) 650 mg/20.3 mL soln Take 20.3 mL by mouth every 6 hours as needed. calcium carbonate (CALTRATE 600 ORAL) Take 1 tablet by mouth once daily. multivitamin (MULTIPLE VITAMINS) tablet Take 1 tablet by mouth once daily. tiZANidine (ZANAFLEX) 4 mg tablet Take 1 tablet by mouth every 8 hours as needed. (Patient taking differently: Take 2 mg by mouth every 8 hours as needed. ) BIOTIN ORAL Take 1 tablet by mouth once daily. ASCORBIC ACID (VITAMIN C ORAL) Take 1 tablet by mouth once daily. Magnesium 30 mg tablet Take 30 mg by mouth twice daily. Cholecalciferol, Vitamin D3, 2,000 unit cap Take 10,000 Units by mouth once daily. Current Facility-Administered Medications on File Prior to Visit Medication perflutren lipid microspheres 1.3 mL in NaCl (PF) 0.9% 10 mL injection (DEFINITY) sodium chloride 0.9 % (flush) 10 mL (BD POSIFLUSH) Social History Social History Tobacco Use Smoking status: Former Smoker Packs/day: 0.10 Years: 2.00 Pack years: 0.20 Types: Cigarettes Quit date: 04/26/2010 Years since quittin.9 Smokeless tobacco: Never Used Tobacco comment: half a pack a week, hasn't smoked since 05/2009 Vaping Use Vaping Use: Never used Substance Use Topics Alcohol use: Yes Comment: occasionally, several times a month glass of wine or mixed drink Drug use: No Review of Symptoms REVIEW OF SYSTEMS GENERAL: No weight loss, malaise or fevers HEENT: Negative for frequent or significant headaches, No changes in hearing or vision, no nose bleeds or other nasal problems. Has congestion and rhinorrhea NECK: Negative for lumps, goiter, pain and significant neck swelling RESPIRATORY: Negative for cough, hemoptysis, no increased wheezing, COPD, dyspnea or shortness of breath from Base line CARDIOVASCULAR: Negative for changes in her occasional chest pain, leg swelling, hypertension, CHF or occasional palpitations GI: No nausea, vomiting, or diarrhea, No heartburn or reflux symptoms and no blood : No history of dysuria, blood MUSCULOSKELETAL: has been having pain in the left knee and left shoulder. Needs to have both shoulder replaced and has a torn meniscus in her left knee. SKIN: Negative for lesions, rash, and itching PSYCH: doing ok on the Zolft and with the trazodone. HEMATOLOGY/LYMPHOLOGY: every time she bumps her arms she bruises easily or bleeds. ENDOCRINE: Negative for polyuria, polydipsia, goiter, Positive for cold intolerance: ., heat intolerance: . NEURO: No history of syncope, paralysis, seizures or tremors. Her headaches have been on occassion and mild. EXAM: BP 130/84 (BP Site: Right Arm, BP Position: Sitting, BP Cuff Size: Regular Adult) Pulse 60 Resp 18 Ht 172.7 cm (5' 8 ) Wt 87.1 kg (192 lb) LMP 08/04/2008 BMI 29.19 kg/m Last 4 Encounter Wt Readings: Date: Wt: 04/06/2022 87.1 kg (192 lb) 03/20/2022 87.5 kg (193 lb) 03/20/2022 87.5 kg (193 lb) 03/08/2022 86.6 kg (191 lb) General Appearance: Well appearing, alert, in no acute distress, well-hydrated, well nourished.. Skin: Skin color, texture, turgor normal, no suspicious rashes or lesions. Head: Normocephalic, no masses, lesions, tenderness or abnormalities. Eyes: Anicteric sclera. Pupils are equally round and reactive to light. Extraocular movements are intact. . Ears: External ears, TM's normal, canals clear. Neck: Supple, no adenopathy; thyroid symmetric, normal size, no bruits. Lungs: Lungs clear to auscultation. No wheezing, rhonchi, rales.. Heart: RRR without murmur, gallop, or rubs. No ectopy. Abdomen: Normal abdominal exam, Abdomen soft, non-tender. Bowel sounds normal. No masses, organomegaly. Extremities: No deformities, edema, skin discoloration, clubbing or cyanosis. Good capillary refill. . Musculoskeletal: Muscular strength intact. Peripheral Pulses: Normal. Neurologic: Gait normal. Reflexes normal and symmetric. Sensation to light touch and crainal nerves 2-12 intact.. Health Maintenance List HIV SCREENING Never done SHINGRIX VACCINE(1 of 2) Never done MAMMOGRAM due on 04/14/2022 COVID-19 VACCINE(1) due on 07/26/2022 INFLUENZA(1) due on 05/04/2022 BP CONTROLLED (<130/80) due on 06/13/2022 ANNUAL PCP TEAM CHRONIC DISEASE VISIT due on 02/01/2023 COLORECTAL CANCER SCREENING due on 09/19/2024 DIABETES SCREEN due on 01/24/2025 LIPID SCREEN due on 01/24/2027 DTAP,TDAP,TD(5 - Td or Tdap) due on 03/12/2030 HEPATITIS C SCREENING Completed PAP TESTING Discontinued HPV TESTING Discontinued Data reviewed Component Latest Ref Rng & Units 07/26/2021 01/24/2022 WBC 3.70 - 11.00 k/uL 9.76 RBC 3.90 - 5.20 m/uL 4.77 Hemoglobin 11.5 - 15.5 g/dL 14.7 Hematocrit 36.0 - 46.0 % 45.1 MCV 80.0 - 100.0 fL 94.5 MCH 26.0 - 34.0 pg 30.8 MCHC 30.5 - 36.0 g/dL 32.6 RDW-CV 11.5 - 15.0 % 13.2 Platelet Count 150 - 400 k/uL 197 MPV 9.0 - 12.7 fL 11.2 Neut% % 63.7 Abs Neut (ANC) 1.45 - 7.50 k/uL 6.22 Lymph% % 24.2 Abs Lymph 1.00 - 4.00 k/uL 2.36 [place]% % 10.7 Abs [place] <0.87 k/uL 1.04 (H) Eosin% % 0.6 Abs Eosin <0.46 k/uL 0.06 Baso% % 0.3 Abs Baso <0.11 k/uL 0.03 Immature Gran % % 0.5 IMMATURE GRANS (ABS) <0.10 k/uL 0.05 NRBC /100 WBC 0.0 Absolute nRBC <0.01 k/uL <0.01 DTYPE Auto Protein, Total 6.3 - 8.0 g/dL 7.4 Albumin 3.9 - 4.9 g/dL 4.6 Calcium 8.5 - 10.2 mg/dL 9.8 9.8 Bilirubin, Total 0.2 - 1.3 mg/dL 0.3 Alkaline Phosphatase 34 - 123 U/L 114 AST 13 - 35 U/L 20 ALT 7 - 38 U/L 21 Glucose 74 - 99 mg/dL 97 101 (H) BUN 7 - 21 mg/dL 19 29 (H) Creatinine 0.58 - 0.96 mg/dL 1.01 (H) 0.82 Sodium 136 - 144 mmol/L 143 140 Potassium 3.7 - 5.1 mmol/L 3.8 4.7 Chloride 97 - 105 mmol/L 103 104 CO2 22 - 30 mmol/L 29 25 Anion Gap 9 - 18 mmol/L 11 11 eGFR >=60 mL/min/1.73m 80 eGFR- >60 eGFR-All Other Races . 55 Total Cholesterol, Nonfasting <200 mg/dL 181 262 (H) Triglycerides, Nonfasting <150 mg/dL 270 (H) 131 HDL Cholesterol, Nonfasting >39 mg/dL 52 71 LDL Cholesterol, Nonfasting <100 mg/dL 75 165 (H) Non HDL Cholesterol, Nonfasting <130 mg/dL 129 191 (H) VLDL Cholesterol, Nonfasting <30 mg/dL 54 (H) 26 Total Chol/HDL Ratio, Nonfasting <5.10 mg/dL 3.48 3.69 LDL/HDL Ratio, Nonfasting <2.54 mg/dL 1.44 2.32 Hemoglobin A1C 4.3 - 5.6 % 5.6 Estimated Average Glucose mg/dL 114 TSH 0.270 - 4.200 mIU/L 1.920 Free T4 0.9 - 1.7 ng/dL 1.1 A/P ASSESSMENT/PLAN: 1. Well adult exam - ICD9: V70.0, ICD10: Z00.00 (primary diagnosis) - Counseled on healthy diet and regular exercise - Calcium intake with supplements or by diet of 1000 mg/day for under 50, 4490-1130 mg/day for 50+ - Discussed need and benefit for weight loss. BMI 29.19 kg/(m^2) - Follow up for annual exam in one year 2. Hypertension, essential - ICD9: 401.9, ICD10: I10 - good control - Continue current medication(s) - Recommended regular aerobic exercise. - Recommend home blood pressure monitoring, to bring results in on next visit - Goal of BP <130/80 Check - LIPID PANEL, NONFASTING 3. Mixed hyperlipidemia - ICD9: 272.2, ICD10: E78.2 - to be determined upon return of lab results - Encouraged following a low fat, low cholesterol diet. - Discussed the benefits of regular aerobic exercise and weight loss. - Encouraged following a low carbohydrate, healthy oil intake diet. - Continue current therapy. Check - LIPID PANEL, NONFASTING 4. Hydrocephalus, adult (HCC) - ICD9: 331.4, ICD10: G91.9 - Patient to cont f/u with neuro. Will make them aware she did feel better with the lumbar puncture procedure but still with mild symptoms. 5. Other migraine without status migrainosus, not intractable - ICD9: 346.80, ICD10: G43.809 - Mild and stable will monitor. Sees Neurology as well. 6. Ascending aorta dilatation (HCC) - ICD9: 447.71, ICD10: I77.810 - Stable cont f/u with cardio 7. Thoracic aortic aneurysm without rupture (HCC) - ICD9: 441.2, ICD10: I71.2 - As per #6 8. Situational mixed anxiety and depressive disorder - ICD9: 309.28, ICD10: F43.23 - stable no chanegs 9. Chronic anxiety - ICD9: 300.00, ICD10: F41.9 - As per #8 10. Post-COVID chronic dyspnea - ICD9: 786.09, 139.8, ICD10: R06.09, U09.9 - Cont management per pulm 11. Moderate aortic regurgitation - ICD9: 424.1, ICD10: I35.1 - Seeing Cardio 12. Fibromyalgia - ICD9: 729.1, ICD10: M79.7 - Stable no changes 13. Lung nodule - ICD9: 793.11, ICD10: R91.1 - Seeing pulm 14. HUBER (obstructive sleep apnea) - ICD9: 327.23, ICD10: G47.33 - Cont CPAP once she gets set up with [facility]. 15. Primary insomnia - ICD9: 307.42, ICD10: F51.01 - Stable no changes. 16. Vitamin D deficiency - ICD9: 268.9, ICD10: E55.9 Check - VITAMIN D 25 HYDROXY 17. Essential tremor - ICD9: 333.1, ICD10: G25.0 - Discussed benign nature. Will monitor 18. Cold intolerance - ICD9: 780.99, ICD10: R68.89 Check - T4 FREE/FREE THYROX - TSH BLD 19. Heat intolerance - ICD9: 780.99, ICD10: R68.89 Check - T4 FREE/FREE THYROX - TSH BLD 20. Primary osteoarthritis of both shoulders - ICD9: 715.11, ICD10: M19.011, M19.012 With recent flare to left shoulder will place on - METHYLPREDNISOLONE 4 MG TABLETS IN A DOSE PACK 21. Living will on file - ICD9: V49.89, ICD10: Z87.898 - On file 22. Advance directive discussed with patient - ICD9: V65.49, ICD10: Z71.89 - Discussed. 23. Encounter for screening mammogram for breast cancer - ICD9: V76.12, ICD10: Z12.31 Check - SANJUANA SCREENING 24. Medication management - ICD9: V58.69, ICD10: Z79.899 Check - CBC + DIFF Signed Prescriptions Disp Refills metoprolol succinate ER (TOPROL XL) 50 mg 24 hr tablet Sig: Take 2 tablets by mouth once daily. SHAYLA: No methylPREDNISolone (MEDROL, KERWIN,) 4 mg Dose-Pack 1 Package 0 Sig: Follow dosing instructions, take with food. Ciclopirox (LOPROX) 8 % solution 6.6 mL 5 Sig: Apply to affected area daily at bedtime. For seven days. Then clean off and repeat process. For 10-12 months F/u in 6 months leland Sheppard MD documented in this encounter [facility] 03-29-2022 Miscellaneous Notes Sent demographics, script and office note To: [employer] Fax:[phone] Phone: documented in this encounter [facility] 03-29-2022 History of Present illness Narrative Images from the original note were not included. [facility] Follow up/ Established patient visit Date of last visit : 07/24/2019 Plan: - Continue Auto CPAP and reduce pressures to 6-11 cmH2O. - Use ramp time - Try Airfit N30i and utilize a mask fitting if needed - Heated tubing - instructed pt to call DME - Remember to clean your mask and equipment regularly, as directed. - You should be eligible for new supplies approximately every 3-6 months, depending on your insurance coverage. Contact your Durable Medical Equipment (DME) company for new supplies as needed. Follow up in 3 -6 month(s). This visit occurred of a group-based Shared Medical Activity, which included brief education and facilitated group interaction principally to enhance the understanding of and compliance with PAP therapy. This education emphasizes the benefits to daily functioning (Reduced Sleepiness, Improved Energy, Reduced Fatigue, and Reduced Irritability) that may accrue to many patients, but especially emphasizes the importance of adverse cardiovascular and metabolic outcomes (Heart attacks, strokes, hypertension, and worsening diabetes) that compliance to PAP therapy is intended to forestall or delay. This activity is directed at problems pertinent to CPAP mask therapy, and includes DME providers who were also available for immediate contact and intervention. Geena Conway CNP Interval history : Pt consents to virtual visit via [employer]. Here for follow up for huber. SLEEP APNEA Sleep apnea type : HUBER, Most Recent Apnea-Hypopnea Index (AHI): 7.6 on 2018 split study Treatment : PAP therapy Registered with respironics? Yes She did not use an external cleaning device; used vinegar/water to clean supplies. Reports that her lung doctor wants her to use pap therapy with oxygen. DME: [employer] - no longer takes her insurance SLEEP HYGIENE QUESTIONS: Estimated total sleep time ( in a 24 hour period of time) : 6 PATIENT-ENTERED QUESTIONNAIRE SLEEP SCORES PROMIS CAT Sleep Disturbance 02/28/2022 PROMIS Sleep Disturbance T-Score 66 (moderate) Insomnia Severity Index 01/08/2019 Score 20 PHQ-9 05/19/2019 01/23/2022 02/28/2022 Score 0 19 21 PROMIS Global Health - (T-Scores - the mean of general population = 50. Five points is a clinically meaningful difference.) 07/13/2021 11/03/2021 01/29/2022 Physical T-Score 34.9 29.6 26.7 Mental T-Score 36.3 31.3 36.3 PMH, PSH, SH: reviewed SLEEP RELATED ROS Review of Systems Constitutional: Positive for fatigue. HENT: Positive for congestion. Respiratory: Positive for cough. Negative for difficulty breathing. D/t allergies Cardiovascular: Positive for chest pain and leg swelling. Neurological: Positive for dizziness and headaches. ALLERGIES Allergen Reactions Dilaudid [Hydromorp* Other: See Comments Pt states she hallucinates Sulfa (Sulfonamide * Rash Ultram [Tramadol Hc* GI Upset Pt. tried again on 02-13 and became very ill with GI issues Oxycontin [Oxycodon* Swelling Relafen [Nabumetone] GI Upset CURRENT MEDICATIONS: meloxicam (MOBIC) 15 mg tablet Take 1 tablet by mouth once daily. Take with food. hydrOXYzine HCl (ATARAX) 10 mg tablet Take 1 tablet by mouth three times daily as needed. atorvastatin (LIPITOR) 20 mg tablet Take 1 tablet by mouth daily at bedtime. For cholesterol. sertraline (ZOLOFT) 100 mg tablet Take 1 tablet by mouth once daily. fluticasone (FLONASE) 50 mcg/actuation nasal spray Use 2 Sprays in each nostril once daily. Rinse mouth after use. metoprolol succinate ER (TOPROL XL) 50 mg 24 hr tablet Take 1 tablet by mouth once daily. traZODone (DESYREL) 100 mg tablet Take 2 tablets by mouth daily at bedtime. albuterol (PROVENTIL) 2.5 mg /3 mL (0.083 %) nebulizer solution Use 3 mL via nebulizer every 6 hours as needed for wheezing/shortness of breath. Use over 5-15minutes. vit C-Zn gluc-herbal no.325 (ELDERBERRY ZINC VIT C) 90-15 mg lozg Use 1 Lozenge as instructed twice daily. albuterol HFA (PROVENTIL HFA, VENTOLIN HFA) 90 mcg/actuation inhaler Inhale 2 Puffs as instructed every 4 hours as needed for wheezing/shortness of breath. losartan (COZAAR) 50 mg tablet 50 mg once daily. omega-3/dha/epa/dpa/fish oil (OMEGA-3 2100 ORAL) Take by mouth. CPAP Adjust pressures to Autopap 6-11 cm H2O, SEND Heat Humidity tubing (SHAYLA), suitable mask ( mask fitting for Airfit N30i), [employer], opt [place], G47.33. acetaminophen (TYLENOL) 650 mg/20.3 mL soln Take 20.3 mL by mouth every 6 hours as needed. calcium carbonate (CALTRATE 600 ORAL) Take 1 tablet by mouth once daily. multivitamin (MULTIPLE VITAMINS) tablet Take 1 tablet by mouth once daily. tiZANidine (ZANAFLEX) 4 mg tablet Take 1 tablet by mouth every 8 hours as needed. BIOTIN ORAL Take 1 tablet by mouth once daily. ASCORBIC ACID (VITAMIN C ORAL) Take 1 tablet by mouth once daily. Magnesium 30 mg tablet Take 30 mg by mouth twice daily. Cholecalciferol, Vitamin D3, 2,000 unit cap Take 10,000 Units by mouth once daily. PHYSICAL EXAMINATION: General appearance: NAD, pleasant Mental status: Awake & alert Constitutional: WNL Neuro: Fluent speech IMPRESSION: 61 yo woman with a pmh of hpl, htn, aortic aneurysm without rupture, fibromyalgia, migraines, hydrocephalus with post-covid dyspnea presents for management of sleep apnea. She stopped using autopap when advised of respironics recall. She has not used an external cleaning device and has not noted particles in tubing/mask. Due to fatigue, recommend restarting pap therapy. Needs new dme company. Pulmonology want her to use oxygen with pap therapy. PLAN: - Dme change to [employer]: Provide supplies for autopap 6-11 cm H20. Submit download report to assess residual ahi. - Follow-up in 2 months. Will have schedulers contact. Opal Mendez APRN.CNP documented in this encounter [facility] 03-24-2022 Miscellaneous Notes Patient was notified and will call back to schedule ortho Babs Napier Ma Try not to mess with the area. a reason for pain from lipoma is over manipulation. We will get opinion from ortho. May need to see general surgeon though if lipoma pain continues. Edwina Khoury PA-C Pot notified of results and verbalizes understanding. Pt reports she has had problems with her knees for years. Pt would like referral to Ortho. Pt is also questioning what to do about her leg. States area is tender and she is getting another knot up above the current area. Ok to leave vm. Asmita Mason LPN Mri shows a lipoma in the area of concern. This is benign. It incidentally noted a tear in the meniscus as well.. if she is having knee pain, next step would be seeing ortho. Edwina Khoury PA-C documented in this encounter [facility] 03-20-2022 History of Present illness Narrative Images from the original note were not included. . Respiratory [place] Note Patient name: Kristina Macario PCP: Ganga Sheppard MD CC: Post COVID chronic dyspnea HPI: Kristina Macario 61 year old female former minimal smoker with PMH significant for HUBER not wearing CPAP since recall of her machine, HTN, hydrocephalus, fibromyalgia, anxiety disorder, HLD and COVID-pneumonia in May 2021. Her COVID pneumonia was treated with dexamethasone only and high flow nasal cannula at 10 L. She was discharged to home on 5 L of oxygen, currently using oxygen at night and as needed during the day. At initial visit, chest CT showed persistent infiltrates and incidental note of a 6 mm lung nodule. She presents today for follow-up after repeat CT of her chest and ambulatory oxygen assessment. She continues to have significant dyspnea on exertion, fatigue, chest tightness. No specific therapy other than albuterol as needed. Ambulatory oximetry testing shows adequate oxygenation although patient was very dyspneic with activity. He has continued to use her oxygen as needed during the day although her oxygen saturations have remained above 90%. She has not consistently used her oxygen at night. She is still pending second opinion regarding her sleep apnea and need for CPAP to obtain equipment through a different company. Her respiratory symptoms only consist of severe dyspnea with exertion and fatigue. During her ambulation test she was hyperventilating and complaining of numbness and tingling. Saturation remained above 96%. She has no cough, wheezing or chest pain. Chest CT shows resolution of her infiltrates and persistent 6 mm subpleural nodule right upper lobe unchanged in size. No new findings on imaging. She is pending reverse shoulder replacement and will likely need pulmonary clearance for her surgery. DATA: Oximetry with Ambulation Test for This Encounter O2 Device O2 Adapter NC O2 Flow SpO2% HR Activity Ft Walked (ft) Time (min) Avg Speed (MPH) R/A 96 58 Resting R/A 98 75 Walking, usual pace 530 3 2.01 R/A 100 81 Walking, fastest pace 640 3 2.42 General Information Pulse Oximetry Site Total Time Spent O2 Supply Carrier Walking Assistance/Device Forehead 15 NAME: CONNOR Reyes PATIENT NAME: Kristina Macario DATE: March 20, 2022 TIME: 9:26 AM Labs: Component Ref Range & Units 1 mo ago (01/24/22) WBC 3.70 - 11.00 k/uL 9.76 RBC 3.90 - 5.20 m/uL 4.77 Hemoglobin 11.5 - 15.5 g/dL 14.7 Hematocrit 36.0 - 46.0 % 45.1 MCV 80.0 - 100.0 fL 94.5 MCH 26.0 - 34.0 pg 30.8 MCHC 30.5 - 36.0 g/dL 32.6 RDW-CV 11.5 - 15.0 % 13.2 Platelet Count 150 - 400 k/uL 197 MPV 9.0 - 12.7 fL 11.2 Neut% % 63.7 Abs Neut 1.45 - 7.50 k/uL 6.22 Lymph% % 24.2 Abs Lymph 1.00 - 4.00 k/uL 2.36 [place]% % 10.7 Abs [place] <0.87 k/uL 1.04 High Eosin% % 0.6 Abs Eosin <0.46 k/uL 0.06 Baso% % 0.3 Abs Baso <0.11 k/uL 0.03 Immature Gran % % 0.5 Abs Immature Gran <0.10 k/uL 0.05 NRBC /100 WBC 0.0 Absolute nRBC <0.01 k/uL <0.01 Diff Type Auto Imaging / Diagnostic Studies: DATE OF EXAM: Mar 13 2022 9:18AM [facility] 0541 - CT CHEST WO IVCON / EXAMINATION: CHEST CT WITHOUT CONTRAST CLINICAL HISTORY: Lung nodules Comparison: CT chest on 09/06/2021 RESULT: Limitations: None. Lines, tubes, and devices: None. Lung parenchyma and airways: The central airways are patent. There is a stable 6 mm solid nodule abutting the pleural surface in the right lung, series 6 image 80. A calcified granuloma is again noted in the right upper lung. There are a few triangular densities along the pleural surface, likely representing focal atelectasis. The lungs are otherwise clear of consolidations. Pleural space: No pleural effusion. No pleural thickening. Lower neck, lymph nodes, and mediastinum: The imaged thyroid gland is normal. No lymphadenopathy in the supraclavicular, axillary, mediastinal, or hilar regions. Heart, pericardium, and thoracic vessels: The main pulmonary arteries are normal in caliber. There is ectatic ascending aorta measuring 4.5 cm in diameter. The cardiac chambers are normal in size. Punctate coronary artery atherosclerotic calcifications are noted, although the study is not optimized for coronary assessment. No pericardial effusion or thickening. Bones and soft tissues: Stable chest wall soft tissue. There are degenerative changes in the spine and shoulders. Upper abdomen: Limited study through the upper abdomen demonstrates a partially visualized right renal cyst/cystic lesion. IMPRESSION: Stable 6 mm right lung nodule. No new or enlarging nodules identified. Ectatic ascending aorta. Abdominal findings as described above. I personally reviewed the images with the patient as well as with her and agree with the above assessment PAST MEDICAL HISTORY Diagnosis Date Abnormal mammogram Arthritis of knee, left 01/31/2013 Arthritis of left hip 01/19/2016 Ascending aorta dilatation (HCC) 07/04/2017 04/19/16: 4.2 cm 06/11/17: 4.4 cm 06/24/18 4.4 cm Cervical high risk human papillomavirus (HPV) DNA test positive 05/27/2008 Chronic anxiety 06/01/2021 Chronic diarrhea 12/09/2018 Chronic hypoxemic respiratory failure (HCC) 09/06/2021 resolved DDD (degenerative disc disease), lumbar 07/24/[address] 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 Babs Guerra Postcoital bleeding Primary insomnia 06/13/2021 Rectocele 04/19/2007 Renal cyst 07/13/2016 Situational mixed anxiety and depressive disorder 11/12/2017 Thoracic aortic aneurysm without rupture (HCC) 2018 Urge incontinence 04/19/2007 Vitamin D deficiency 07/23/2012 Well adult exam 06/13/2021 Last done: 06/13/2021 ALLERGIES Allergen Reactions Dilaudid [Hydromorp* Other: See Comments Pt states she hallucinates Sulfa (Sulfonamide * Rash Ultram [Tramadol Hc* GI Upset Pt. tried again on 02-13 and became very ill with GI issues Oxycontin [Oxycodon* Swelling Relafen [Nabumetone] GI Upset meloxicam (MOBIC) 15 mg tablet Take 1 tablet by mouth once daily. Take with food. hydrOXYzine HCl (ATARAX) 10 mg tablet Take 1 tablet by mouth three times daily as needed. atorvastatin (LIPITOR) 20 mg tablet Take 1 tablet by mouth daily at bedtime. For cholesterol. sertraline (ZOLOFT) 100 mg tablet Take 1 tablet by mouth once daily. fluticasone (FLONASE) 50 mcg/actuation nasal spray Use 2 Sprays in each nostril once daily. Rinse mouth after use. metoprolol succinate ER (TOPROL XL) 50 mg 24 hr tablet Take 1 tablet by mouth once daily. traZODone (DESYREL) 100 mg tablet Take 2 tablets by mouth daily at bedtime. albuterol (PROVENTIL) 2.5 mg /3 mL (0.083 %) nebulizer solution Use 3 mL via nebulizer every 6 hours as needed for wheezing/shortness of breath. Use over 5-15minutes. vit C-Zn gluc-herbal no.325 (ELDERBERRY ZINC VIT C) 90-15 mg lozg Use 1 Lozenge as instructed twice daily. albuterol HFA (PROVENTIL HFA, VENTOLIN HFA) 90 mcg/actuation inhaler Inhale 2 Puffs as instructed every 4 hours as needed for wheezing/shortness of breath. losartan (COZAAR) 50 mg tablet 50 mg once daily. omega-3/dha/epa/dpa/fish oil (OMEGA-3 2100 ORAL) Take by mouth. CPAP Adjust pressures to Autopap 6-11 cm H2O, SEND Heat Humidity tubing (SHAYLA), suitable mask ( mask fitting for Airfit N30i), Lifetime supplies, opt Chinstrap, G47.33. acetaminophen (TYLENOL) 650 mg/20.3 mL soln Take 20.3 mL by mouth every 6 hours as needed. calcium carbonate (CALTRATE 600 ORAL) Take 1 tablet by mouth once daily. multivitamin (MULTIPLE VITAMINS) tablet Take 1 tablet by mouth once daily. tiZANidine (ZANAFLEX) 4 mg tablet Take 1 tablet by mouth every 8 hours as needed. BIOTIN ORAL Take 1 tablet by mouth once daily. ASCORBIC ACID (VITAMIN C ORAL) Take 1 tablet by mouth once daily. Magnesium 30 mg tablet Take 30 mg by mouth twice daily. Cholecalciferol, Vitamin D3, 2,000 unit cap Take 10,000 Units by mouth once daily. Social History Tobacco Use Smoking status: Former Smoker Packs/day: 0.10 Years: 2.00 Pack years: 0.20 Types: Cigarettes Quit date: 04/26/2010 Years since quittin.9 Smokeless tobacco: Never Used Tobacco comment: half a pack a week, hasn't smoked since 05/2009 Vaping Use Vaping Use: Never used Substance Use Topics Alcohol use: Yes Comment: occasionally, several times a month glass of wine or mixed drink Drug use: No PMH, Social history, family history and surgical history reviewed and updated in EMR REVIEW OF SYSTEMS: CONSTITUTIONAL: No fevers, chills, nightsweats, unintended weight loss. Fatigue HEENT: Denies heaches, nasal congestion/sinus symptoms, allergy problems. CARDIOVASCULAR: No chest pain, dyspnea, palpitations, orthopnea, PND, edema. PULM: See HPI NEURO: No new balance problems, peripheral weakness/paresthesias or numbness of concern. Brain fog MUSC-SKEL: No new joint pain, swelling, or erythema. Pending reverse shoulder surgery PSY: No concerns regarding depression. Anxiety INTEGUMENTARY: No new skin changes or rashes PHYSICAL EXAMINATION: BP 128/80 Pulse 58 Wt 193 lb (87.5kg) SpO2 98% LMP 08/04/2008 General Appearance: Age-appropriate female no acute distress Skin: Skin color, texture, turgor normal, no suspicious rashes or lesions. Head: Normocephalic, no masses, lesions, tenderness or abnormalities. Eyes: Sclera, conjunctiva normal Neck: No JVD, no masses, no adenopathy Lungs: Tachypneic with ambulation, normal to percussion, no wheezes or crackles Heart: Regular rate and rhythm, no murmurs or gallops Extremities: No edema or clubbing Assessment/Plan: 1. Post COVID chronic dyspnea -No evidence of permanent scarring related to her previous COVID-pneumonia and oxygen saturation is adequate -No specific therapy recommended at this time other than as needed albuterol and continued activity as tolerated 2. Lung nodule -6 mm noncalcified pulmonary nodule, stable -Follow-up CT 1 year 3. Chronic hypoxemic respiratory failure -Resolved -No need for supplemental continuous oxygen Babs Guerra MD Res[facility] [place] documented in this encounter [facility] 03-20-2022 Procedure note Associated Order(s): OXIMETRY WITH AMBULATION RESPIRATORY THERAPY OXIMETRY WITH AMBULATION Oximetry with Ambulation Test for This Encounter O2 Device O2 Adapter NC O2 Flow SpO2% HR Activity Ft Walked (ft) Time (min) Avg Speed (MPH) R/A 96 58 Resting R/A 98 75 Walking, usual pace 530 3 2.01 R/A 100 81 Walking, fastest pace 640 3 2.42 General Information Pulse Oximetry Site Total Time Spent O2 Supply Carrier Walking Assistance/Device Forehead 15 NAME: CONNOR Reyes PATIENT NAME: Kristina Macario DATE: March 20, 2022 TIME: 9:26 AM Comment: documented in this encounter [facility] 03-20-2022 Nurse Note Intake information documented in the prior visit with CONNOR Reyes today. documented in this encounter [facility] 03-20-2022 History of Present illness Narrative PULM FUNCTION SMARTBLOCK: Provider: Babs Guerra MD Assisting Tech: CONNOR Reyes Oximetry - Ambulation: 1 documented in this encounter [facility] 03-13-2022 History of Present illness Narrative Radiology Service Progress Note PATIENT NAME: Kristina Macario DATE OF SERVICE: March 13, 2022 TIME: 9:26 AM PATIENT IDENTITY VERIFICATION COMPLETED USING TWO (2) IDENTIFIERS: Name and Date of confirmed by patient verbally. FALL SCREENING: Has the patient had 2 falls in the last year or 1 fall with injury or currently using an Ambulatory Assistive Device (Walker, Cane, Wheelchair, Crutches, etc.)? No PATIENT GENDER DATA: Female. status: : No status: NO. PATIENT RELEVANT IMPLANT DATA REVIEWED: Not Applicable RADIOLOGY DEPARTMENT: CT; Exam(s) Completed: Chest PERIPHERAL IV DATA: Not applicable SIGNED BY: RT Marlys(R) March 13, 2022 9:26 AM documented in this encounter [facility] 03-08-2022 Miscellaneous Notes Left message on pt's vm that MRI has been ordered and to call back to set up appointment. Asmita Mason LPN Mri ordered. Edwina Khoury PA-C Pt notified of results and instructions. Pt would like to do the MRI. Asmita Mason LPN Let patient know that the US results are rather nonspecific. Possible lipoma however cannot determine. 2 options for next step. 1. Get a MRI of the leg to see if it can better characterize the are. 2. Get opinion from Surgeon. Which does she prefer? documented in this encounter [facility] 03-08-2022 Instructions Salome Wong MD - 03/08/2022 8:37 AM EDT Avoid taking antihistamines including cetirizine/zyrtec, loratidine/claritin, benadryl, tylenol pm and advil pm for 5 days before your next visit. Return on Apr 11 at 8:30 am documented in this encounter [facility] 03-08-2022 History of Present illness Narrative This is a consultation requested by Dr. Sheppard for an allergy and immunology evaluation. My final recommendations will be communicated back to the requesting healthcare provider(s) by way of shared medical record or via U.[place]. mail. Kristina Macario is a 61 year old female who has symptoms of itchy eyes, watery eyes, clear rhinorrhea, nasal congestion, sneezing, postnasal drip. Associated symptoms include cough . These symptoms are perennial. Symptoms are worse outdoors and upon awakening in the morning. No other identified triggers of her symptoms. The patient has been suffering from these symptoms for several year(s). The patient has tried Claritin, Zyrtec and Flonase with fair relief of symptoms. Uses Flonase only about once per week. Immunotherapy has never been tried. She has taken 3-4 courses of antibiotics for sinusitis in the past year. Visualized paranasal sinuses were clear on CT brain completed February 22, 2022. Denies a history of nasal fracture or nasal polyposis. No prior nasal or sinus surgery. She sees pulmonary medicine for chronic dyspnea following COVID-19 infection. Denies a history of asthma. Symptoms include cough, wheezing, chest tightness and shortness of breath. Occasional nocturnal awakenings due to respiratory symptoms. Uses albuterol less than once per week for acute symptoms. She is on 2 to 3 L of oxygen via nasal cannula. She was hospitalized for 1 week in May 2021 for COVID-19 complicated by bilateral pneumonia. Denies ICU or intubation. She took 3 courses of systemic steroids for respiratory symptoms in the 2020. She notes GERD symptoms 1-2 times per week. REVIEW OF SYSTEMS: SINUSITIS: See PICAYUNE ASTHMA: The patient has no history of asthma. ECZEMA: The patient has no history of eczema. URTICARIA:The patient does not have a history of urticaria and/or angioedema. GERD: See PICAYUNE INSECT STING: The patient does not have a history of systemic reaction to insect sting. FOOD ALLERGY:The patient denies history of food allergy. LATEX: The patient does not have a history of adverse reaction to latex. All other review of systems negative except for those listed above. PAST MEDICAL HISTORY Diagnosis Date Abnormal mammogram Arthritis of knee, left 01/31/2013 Arthritis of left hip 01/19/2016 Ascending aorta dilatation (HCC) 07/04/2017 04/19/16: 4.2 cm 06/11/17: 4.4 cm 06/24/18 4.4 cm Cervical high risk human papillomavirus (HPV) DNA test positive 05/27/2008 Chronic anxiety 06/01/2021 Chronic diarrhea 12/09/2018 Chronic hypoxemic respiratory failure (HCC) 09/06/2021 DDD (degenerative disc disease), lumbar 07/24/[address] 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 Babs Guerra Postcoital bleeding Primary insomnia 06/13/2021 Rectocele 04/19/2007 Renal cyst 07/13/2016 Situational mixed anxiety and depressive disorder 11/12/2017 Thoracic aortic aneurysm without rupture ([facility]) 2018 Urge incontinence 04/19/2007 Vitamin D deficiency 07/23/2012 Well adult exam 06/13/2021 Last done: 06/13/2021 MEDICATIONS: meloxicam (MOBIC) 15 mg tablet Take 1 tablet by mouth once daily. Take with food. hydrOXYzine HCl (ATARAX) 10 mg tablet Take 1 tablet by mouth three times daily as needed. atorvastatin (LIPITOR) 20 mg tablet Take 1 tablet by mouth daily at bedtime. For cholesterol. sertraline (ZOLOFT) 100 mg tablet Take 1 tablet by mouth once daily. fluticasone (FLONASE) 50 mcg/actuation nasal spray Use 2 Sprays in each nostril once daily. Rinse mouth after use. peg 3350-Electrolytes (GOLYTELY) 236-22.74-6.74 -5.86 gram suspension Refer to printed prep instructions from your provider. metoprolol succinate ER (TOPROL XL) 50 mg 24 hr tablet Take 1 tablet by mouth once daily. traZODone (DESYREL) 100 mg tablet Take 2 tablets by mouth daily at bedtime. albuterol (PROVENTIL) 2.5 mg /3 mL (0.083 %) nebulizer solution Use 3 mL via nebulizer every 6 hours as needed for wheezing/shortness of breath. Use over 5-15minutes. vit C-Zn gluc-herbal no.325 (ELDERBERRY ZINC VIT C) 90-15 mg lozg Use 1 Lozenge as instructed twice daily. albuterol HFA (PROVENTIL HFA, VENTOLIN HFA) 90 mcg/actuation inhaler Inhale 2 Puffs as instructed every 4 hours as needed for wheezing/shortness of breath. losartan (COZAAR) 50 mg tablet 50 mg once daily. omega-3/dha/epa/dpa/fish oil (OMEGA-3 2100 ORAL) Take by mouth. CPAP Adjust pressures to Autopap 6-11 cm H2O, SEND Heat Humidity tubing (SHAYLA), suitable mask ( mask fitting for Airfit N30i), Lifetime supplies, opt Chinstrap, G47.33. acetaminophen (TYLENOL) 650 mg/20.3 mL soln Take 20.3 mL by mouth every 6 hours as needed. calcium carbonate (CALTRATE 600 ORAL) Take 1 tablet by mouth once daily. multivitamin (MULTIPLE VITAMINS) tablet Take 1 tablet by mouth once daily. tiZANidine (ZANAFLEX) 4 mg tablet Take 1 tablet by mouth every 8 hours as needed. BIOTIN ORAL Take 1 tablet by mouth once daily. ASCORBIC ACID (VITAMIN C ORAL) Take 1 tablet by mouth once daily. Magnesium 30 mg tablet Take 30 mg by mouth twice daily. Cholecalciferol, Vitamin D3, 2,000 unit cap Take 10,000 Units by mouth once daily. ALLERGIES: Allergies As of Date: 03/08/2022 Allergen Noted Reaction DILAUDID [HYDROMORPHONE (PF)] 05/24/2018 Other: See Comments SULFA (SULFONAMIDE ANTIBIOTICS) 02/09/2003 Rash ULTRAM [TRAMADOL HCL] 05/01/2007 GI Upset OXYCONTIN [OXYCODONE HCL] 12/29/2008 Swelling RELAFEN [NABUMETONE] 07/28/2005 GI Upset Fully Assessed 03/08/2022 PAST SURGICAL HISTORY Procedure Laterality Date APPENDECTOMY APPENDECTOMY 1986 COLONOSCOPY 08-19-13 COLONOSCOPY FLX DX W/COLLJ SPEC WHEN PFRMD 09/19/2019 Colonoscopy COLONOSCOPY W/BIOPSY SINGLE/MULTIPLE 03-15-09 minimal colitis-repeat in COLPOSCOPY CERVIX UPPER/ADJACENT VAGINA Colposcopy DILATION & CURETTAGE DX&/THER NONOBSTETRIC 2002 Dilation & curettage EGD 08-19-13 ESOPHAGOGASTRODUODENOSCOPY TRANSORAL DIAGNOSTIC 09/19/2019 EGD LIG/TRNSXJ FLP TUBE ABDL/VAG APPR UNI/BI 1989&1991 Tubal ligation PAST SURGICAL HISTORY OF 2000 BRAIN SURG/HYDROCEPHALIS - PAST SURGICAL HISTORY OF 2000 REPAIR TENNIS ELBOW PAST SURGICAL HISTORY OF 09/07/06, 05/10,11/08 repair rotator cuff/tendon rt. shoulder PAST SURGICAL HISTORY OF 10/2017 ex lap, ALFRED PROCEDURE , COLOSTOMY PICC LINE INSERT/CONSULT 10/26/2017 REPAIR FIRST ABDOMINAL WALL HERNIA 04/05/2020 Hernia repair, incisional STEREOTACTIC LOCALIZATION BREAST BIOPSY 06/10/15 right TUBAL LIGATION HX 1989 and 1991 VAGINAL HYSTERECTOMY UTERUS 250 GM/< 09/04/2008 Hysterectomy, vaginal/TVT FAMILY HISTORY: Allergic rhinitis:no. Asthma: yes: son and daughter. Eczema: no. Cystic fibrosis: no. Immunodeficiency: no. 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) Years Of Education Completed: Not specified Marital Status: with 3 children Social History Tobacco Use Smoking status: Former Smoker Packs/day: 0.10 Years: 2.00 Pack years: .2 Types: Cigarettes Quit date: 04/26/2010 Years since quittin.8 Smokeless tobacco: Never Used Tobacco comment: half a pack a week, hasn't smoked since 05/2009 ENVIRONMENTAL HISTORY: Lives in a house Age of home: 24 years Heating: propane Woodburning fireplace in the home: no Air conditioning: Central air Basement: Damp basement- no visible mold Rober: [id number] carpeting Dust mite controls: Dust mite controls are not in place. Pets in the home: 1 dogs Outdoor animals: 3 cats Tobacco smoke: No exposure in the home. Physical Exam: GENERAL APPEARANCE:Well appearing, alert, in no acute distress, well-hydrated, well nourished. HEENT: NCAT. EYES: conjunctiva and sclera normal. EARS: External ears normal. Canals clear. TM's normal. NOSE/SINUS: mild edema of the nasal mucosa with scant clear secretions bilaterally THROAT: no erythema NECK:neck supple, no adenopathy HEART:RRR with normal S1 and S2 ,no murmurs, no gallops, no rubs LUNGS: clear to auscultation bilaterally, no wheezes, rales or rhonchi ABDOMEN:soft, nontender, nondistended, without organomegaly or palpable masses EXTREMITIES:Extremities normal, No deformities, No skin discoloration and No edema SKIN: Skin color, texture, turgor normal. No rashes or lesions. ALLERGY SKIN TESTS:Deferred due to recent use of antihistamines. ASSESSMENT/PLAN: 1.) Chronic Rhinitis, and investigation into an allergic component Patient will return for the completion of allergy skin tests to a battery of inhalant allergens (40). She was instructed to avoid use of antihistamines including Zyrtec, Claritin, hydroxyzine, Tylenol PM and Advil PM for 5 days prior to the visit. Recommend regular use of fluticasone nasal spray 2 sprays to each nostril once daily. 2.) Chronic dyspnea following COVID-19 infection: Continue albuterol HFA inhaler with spacer 2 puffs or albuterol 2.5 mg nebulized every 4 hours as needed. Continue 2-3 L of oxygen via nasal cannula. Continue to follow-up with pulmonary medicine. 3.) Discussed medication dosage, usage, side effects, and goals of treatment in detail. 4.) Follow-up as scheduled for allergy skin tests (40)- patient will return sooner should new symptoms or problems arise. Salome Wong MD documented in this encounter [facility] 03-01-2022 Miscellaneous Notes SOCIAL WORK DISTRESS ASSESSMENT Referral made due to:High distress Contact was made: By telephone call with patient Problems Addressed: Practical: Treatment decisions/concerns Family: N/A Emotional: N/A Spiritual Concerns: N/A Physical Problems: Health concerns Exercising: N/A Stress Management: N/A Is the patient's distress related to a change in quality of life? Yes Patient with current Suicidal Ideation: No MENTAL HEALTH HISTORY: Pt prescribed medication for mental health. Substance Use and Treatment History: denied History of Abuse: denied History of combat/trauma: Na INTERVENTION/PLAN: SW contacted pt via phone to introduce self and role. Pt shares that she is doing as good as she can be due to her health at this time. Pt shares that there is no support or resources she wants at this time and is just focusing on her health. Pt shares that she does have mental health support through her primary care provider and is prescribed medication. Pt shares that she appreciates the call and will contact SW if needed. Resources and Referrals: (pt does not have cancer) Internal: NA External: N/A Follow up appointment with SW in: PRN Assessment Completed DELISA Eduardo documented in this encounter [facility] 02-24-2022 Miscellaneous Notes Spoke with pt and information listed below given. Pt verbalizes understanding. Arline Lott LPN Phone call placed brief message to contact a nurse. Stephanie Lott LPN Urine shows infection. I will send in atb. Let us know if not improving. Edwina Khoury PA-C documented in this encounter [facility] 02-22-2022 History of Present illness Narrative Radiology Service Progress Note PATIENT NAME: Kristina Macario DATE OF SERVICE: February 22, 2022 TIME: 8:13 AM PATIENT IDENTITY VERIFICATION COMPLETED USING TWO (2) IDENTIFIERS: Name and Date of confirmed by patient verbally. FALL SCREENING: Has the patient had 2 falls in the last year or 1 fall with injury or currently using an Ambulatory Assistive Device (Walker, Cane, Wheelchair, Crutches, etc.)? No PATIENT GENDER DATA: Female. status: : No status: NO. PATIENT RELEVANT IMPLANT DATA REVIEWED: Yes RADIOLOGY DEPARTMENT: MR; Exam(s) Completed: Head: Routine Brain [place] MRA PERIPHERAL IV DATA: Not applicable SIGNED BY: RT Jon(R) February 22, 2022 8:13 AM documented in this encounter [facility] 02-17-2022 History of Present illness Narrative This note was created using [employer]. Subjective Kristina Macario is a 61 year old female seen today via zoom visit. She is here for evaluation of hydrocephalus. She is s/p neuroendoscopic third ventriculostomy with Dr. Noble is 2000. She states that she is here for a check. She is having some headaches and vision problems. She has had richardson's off and on since the surgery. She has had vision issues over the past \6 mos. She did go to [facility] and they changed her prescription but sometimes they work and sometimes they don't. She had covid in May and has had issues since then. Prior to her surgery with Dr. Noble she had severe richardson's and double vision. Now she will have some blurry vision at times and a lot of floaters. She has been having some issues with balance and walking x 3 - 4 months. + Urinary incontinence progressed over the last 8 mos and short term memory loss. Review of Systems Objective LMP 08/04/2008 Physical Exam Assessment and Plan Hydrocephalus S/p ETV 2000 Covid in Sept with double pneumonia Progressive difficulty with walking, urinary incontinence, and short term memory loss Since covid, symptoms worsening CT brain reviewed from February Moderate ventricular dilation Bulbous basilar tip (having MRA done) Recommend MRI brain with coronal imaging and cine flow Check to make sure ETV is patent as well as look for signs of shunt responsive NPH If ETV is patent, consider high volume LP. Pt to follow up after MRI I spent a total of 30 minutes on the date of the service which included preparing to see the patient, [id number] patient care, completing clinical documentation, obtaining and/or reviewing separately obtained history, counseling and educating the patient/family/caregiver, ordering medications, tests, or procedures, communicating with other HCPs (not separately reported), independently interpreting results (not separately reported), communicating results to the patient/family/caregiver and care coordination (not separately reported). documented in this encounter [facility] 02-08-2022 Miscellaneous Notes Noted. Will defer further discussion to neuro. It looks like she has all her needed appoitnments scheduled. One for the hydrocephalus and then with the cerebral vascular specialist after the MRA. Edwina Khoury PA-C Spoke with patient and gave provider note. She appreciated that call and update and she had not been told results. Francine Ortiz MA Please call patient to make sure she understands what is going on with her CT brain results. I saw the results and there's a concern for a possible aneurysm. I reached out to neuro who helped initiate a quicker consult to a specialist and they need a MRA of brain completed before that visit. It looks like they did get a hold of her yesterday, just want to make sure. Thanks. Edwina Khoury PA-C documented in this encounter [facility] 02-06-2022 Miscellaneous Notes Looks like patient had neuroendoscopic third ventriculostomy with Dr. Noble is 2000. I would schedule her with Dr. Gutiérrez, who took over Dr. Noble's practice. The only mention of aneurysm in her chart is thoracic aortic aneurysm, no brain aneurysms. Thanks, Van 1.5th attempt: Spoke Ana Maria and notified her of above and that unfortunately I cannot schedule for BTI. She states she will be able to schedule patient with Dr. Gutiérrez and reach out to her~ 1st attempt: Returned missed VM on intake line from this morning to Ana Maria from Dr. Molina's office in [place], [place]. Inquiring about referring patient for aneurysm, although want to ensure they are referring appropriately? I don't see consult to us directly, therefore triaged. She states that Dr. Molina has never seen patient, yet PCP is truly referring who works in the same office. Encouraged to reference this phone encounter for any updates~ ENDOVASCULAR INTAKE Patient name: Kristina Macario 1. Confirm Diagnosis/RFV (Reason for Visit): Aneurysm possible 2. Is this a self-referral? no, who is the referring provider : Dr. Ganga Sheppard 3. Is this a direct referral? no 4. Have you been recommended for surgery or procedure? No Are you seeking a second opinion? No. 5. Do you have a MRI/MRA/CT/Ultrasound for this diagnosis? Yes. Type of imaging CT BRAIN, name/address of facility where completed February 03, 2022. Confirmed all imaging only done at [facility], no other imaging/records to request at any OSH. 6. Was there a previous surgery or procedure for this diagnosis/reason for visit? No 7. Are there any other health history we should know about? : not sure 8. Would you prefer a virtual visit or in-person visit? In person visit documented in this encounter [facility] 02-03-2022 History of Present illness Narrative Radiology Service Progress Note PATIENT NAME: Kristina Macario DATE OF SERVICE: February 03, 2022 TIME: 3:19 PM PATIENT IDENTITY VERIFICATION COMPLETED USING TWO (2) IDENTIFIERS: Name and Date of confirmed by patient verbally. FALL SCREENING: Has the patient had 2 falls in the last year or 1 fall with injury or currently using an Ambulatory Assistive Device (Walker, Cane, Wheelchair, Crutches, etc.)? No PATIENT GENDER DATA: Female. status: : No status: NO. PATIENT RELEVANT IMPLANT DATA REVIEWED: Not Applicable RADIOLOGY DEPARTMENT: CT; Exam(s) Completed: Brain PERIPHERAL IV DATA: Not applicable SIGNED BY: RT Marlys(R) February 03, 2022 3:19 PM documented in this encounter [facility] 02-01-2022 Miscellaneous Notes Pt notified of same. Asmita Mason LPN Let patient know that her carotid US was normal. No significant blockages. documented in this encounter [facility] 02-01-2022 History of Present illness Narrative 02/01/2022 Patient presents with: Derm Problem: patient states she has lumps on bilateal legs SUBJECTIVE: This is a 61 year old that is here today for Above Complaints.. Patient reports that she has noted some swelling below her knees for a few months. No pain. Also has a lump on right side that is tender at times. Doesn't feel like it has changed much in size. Tender with pressure or if she bumps the area. PAST MEDICAL HISTORY Diagnosis Date Abnormal mammogram Arthritis of knee, left 01/31/2013 Arthritis of left hip 01/19/2016 Ascending aorta dilatation (HCC) 07/04/201704/19/16: 4.2 cm 06/11/17: 4.4 cm 06/24/18 4.4 cm Cervical high risk human papillomavirus (HPV) DNA test positive 05/27/2008 Chronic anxiety 06/01/2021 Chronic diarrhea 12/09/2018 Chronic hypoxemic respiratory failure (HCC) 09/06/2021 DDD (degenerative disc disease), lumbar 07/24/[address] 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 Babs Guerra Postcoital bleeding Primary insomnia 06/13/2021 Rectocele 04/19/2007 Renal cyst 07/13/2016 Situational mixed anxiety and depressive disorder 11/12/2017 Thoracic aortic aneurysm without rupture (HCC) 2018 Urge incontinence 04/19/2007 Vitamin D deficiency 07/23/2012 Well adult exam 06/13/2021 Last done: 06/13/2021 ALLERGIES Dilaudid [Hydromorphone (Pf)], Sulfa (Sulfonamide Antibiotics), Ultram [Tramadol Hcl], Oxycontin [Oxycodone Hcl], and Relafen [Nabumetone] MEDICATIONS Current Outpatient Medications Medication Sig meloxicam (MOBIC) 15 mg tablet Take 1 tablet by mouth once daily. Take with food. atorvastatin (LIPITOR) 20 mg tablet Take 1 tablet by mouth daily at bedtime. For cholesterol. sertraline (ZOLOFT) 100 mg tablet Take 1 tablet by mouth once daily. fluticasone (FLONASE) 50 mcg/actuation nasal spray Use 2 Sprays in each nostril once daily. Rinse mouth after use. metoprolol succinate ER (TOPROL XL) 50 mg 24 hr tablet Take 1 tablet by mouth once daily. (Patient taking differently: Take 100 mg by mouth once daily. ) albuterol (PROVENTIL) 2.5 mg /3 mL (0.083 %) nebulizer solution Use 3 mL via nebulizer every 6 hours as needed for wheezing/shortness of breath. Use over 5-15minutes. vit C-Zn gluc-herbal no.325 (ELDERBERRY ZINC VIT C) 90-15 mg lozg Use 1 Lozenge as instructed twice daily. albuterol HFA (PROVENTIL HFA, VENTOLIN HFA) 90 mcg/actuation inhaler Inhale 2 Puffs as instructed every 4 hours as needed for wheezing/shortness of breath. losartan (COZAAR) 50 mg tablet 50 mg once daily. acetaminophen (TYLENOL) 650 mg/20.3 mL soln Take 20.3 mL by mouth every 6 hours as needed. calcium carbonate (CALTRATE 600 ORAL) Take 1 tablet by mouth once daily. multivitamin (MULTIPLE VITAMINS) tablet Take 1 tablet by mouth once daily. tiZANidine (ZANAFLEX) 4 mg tablet Take 1 tablet by mouth every 8 hours as needed. (Patient taking differently: Take 2 mg by mouth every 8 hours as needed. ) BIOTIN ORAL Take 1 tablet by mouth once daily. ASCORBIC ACID (VITAMIN C ORAL) Take 1 tablet by mouth once daily. Magnesium 30 mg tablet Take 30 mg by mouth twice daily. Cholecalciferol, Vitamin D3, 2,000 unit cap Take 10,000 Units by mouth once daily. hydrOXYzine HCl (ATARAX) 10 mg tablet Take 1 tablet by mouth three times daily as needed. peg 3350-Electrolytes (GOLYTELY) 236-22.74-6.74 -5.86 gram suspension Refer to printed prep instructions from your provider. (Patient not taking: Reported on 01/03/2022 ) traZODone (DESYREL) 100 mg tablet Take 2 tablets by mouth daily at bedtime. omega-3/dha/epa/dpa/fish oil (OMEGA-3 2100 ORAL) Take by mouth. CPAP Adjust pressures to Autopap 6-11 cm H2O, SEND Heat Humidity tubing (SHAYLA), suitable mask ( mask fitting for Airfit N30i), Lifetime supplies, opt Chinstrap, G47.33. (Patient not taking: Reported on 07/19/2021 ) Current Facility-Administered Medications Medication Dose Route Frequency perflutren lipid microspheres 1.3 mL in NaCl (PF) 0.9% 10 mL injection (DEFINITY) INTRAVENOUS DIRECTED PRN sodium chloride 0.9 % (flush) 10 mL (BD POSIFLUSH) 10 mL INTRAVENOUS DIRECTED PRN SOCIAL HISTORY Social History Tobacco Use Smoking status: Former Smoker Packs/day: 0.10 Years: 2.00 Pack years: 0.20 Types: Cigarettes Quit date: 04/26/2010 Years since quittin.7 Smokeless tobacco: Never Used Tobacco comment: half a pack a week, hasn't smoked since 05/2009 Vaping Use Vaping Use: Never used Substance Use Topics Alcohol use: Yes Comment: occasionally, several times a month glass of wine or mixed drink Drug use: No REVIEW OF SYSTEMS All other reviewed and negative other than HPI. OBJECTIVE: BP 110/60 (BP Site: Left Arm, BP Position: Sitting, BP Cuff Size: Large Adult) Pulse 60 Temp 37.1 C (98.7 F) Resp 18 Wt 85.3 kg (188 lb) LMP 08/04/2008 BMI 28.17 kg/m APPEARANCE Well appearing, alert, in no acute distress, well-hydrated, well nourished. Skin: Small palpable lump in medial lower leg just below knee. Tender to palp. mobile ASSESSMENT/PLAN: 1. Lump of skin of lower extremity, right - ICD9: 782.2, ICD10: R22.41 Unclear diagnosis. May be lymph node Will get US. - US EXTREMITY MASS/FLUID COLLECTION RT Edwina Khoury PA-C documented in this encounter [facility] 01-24-2022 Miscellaneous Notes Pt called and is notified of providers results and instructions. Pt voices understanding. Cathi Almaraz RN Let patient know thyroid labs and CBC were ok. Electrolyte panel was ok except slightly dehydrated. Advised increased water daily. Lipid panel showed LDL elevated at 165 (goal<70 with Hx of aneurysm). Will increase the atorvastatin to 20 mg a day. New script sent. She can use up her 10 mg tabs by taking two a day. The following approved medication requests have been transmitted electronically. Signed Prescriptions Disp Refills atorvastatin (LIPITOR) 20 mg tablet 90 tablet 1 Sig: Take 1 tablet by mouth daily at bedtime. For cholesterol. SHAYLA: No Authorizing Provider: GANGA SHEPPARD MD documented in this encounter [facility] 01-24-2022 History of Present illness Narrative Chief Complaint Patient presents with: Follow Up: 6 month Urgent care visit: 2 weeks ago for sinus- c/o multiple other issues at that time and was advised to go to ER- she chose not to go HPI Kristina Macario is a 61 year old female who presents here today for Above Complaints. and Chronic Medical Conditions.. Patient with hx of HLP, HTN, Thoracic aortic aneurysm, Ascending aorta dilatation, Aortic regurge seeing cardio, HUBER, Recent covid illness, mixed anxiety/depression, vit D def, Fibro, primary insomnia, Hydrocephalus, as well as those reviewed and addressed below in in ROS. She is currently seeing pulmonology for respiratory failure from [facility]. She was recently in the express care and c/o of some chest pain and having episodes of dizziness and had several times where she lost her vision for a few seconds on 01/03/2022. She was advised to go to the ER but she decided against it. Has numbness in her arms and weakness that has been going on for over a year and not just associated with these spells. She has an appt with her lead security officer tomorrow. Allergies not well controlled and would like to see an tricot knitter. Currently on 2-3 L of oxygen per pulmonary mobic is helpful and can tell the most when she does not take it. Patient feels she is not sleeping well with taking the trazodone. She has been without her CPAP for about a year now with the recall. Patient also received word from [employer] that they no longer take her insurance. Patient has not contacted her Sleep med provider as of yet. Patient has a Hx of hydrocephalous and had surgery in 2000 and sounds like she was lost to follow up. She does not have the headaches like she was but is getting the dizzy spells with the loss of vision. Past medical history, appointments, medications, allergies reviewed. 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 [facility] Excessive or frequent menstruation Heavy periods Fibromyalgia 02/26/2014 Hemorrhage of gastrointestinal tract, unspecified History of COVID-19 06/13/202105/2021 Hydrocephalus, adult (HCC) 02/09/2003 Hypertension, essential 01/22/2019 Mild dysplasia of cervix 2006 Mixed hyperlipidemia 01/20/2016 Nonrheumatic mitral valve disorder, unspecified 04/06/2016 Obstructive sleep apnea 10/13/2016 DME - [facility] Plantar fasciitis 2018 PMH - PAST MEDICAL HISTORY OF RECTAL BLEEDING Postcoital bleeding Primary insomnia 06/13/2021 Rectocele 04/19/2007 Renal cyst 07/13/2016 Situational mixed anxiety and depressive disorder 11/12/2017 Thoracic aortic aneurysm without rupture (HCC) 2018 Unspecified constipation Constipation Unspecified visual disturbance DOUBLE VISION Urge incontinence 04/19/2007 Vitamin D deficiency 07/23/2012 Well adult exam 06/13/2021 Last done: 06/13/2021 Previous Surgical History PAST SURGICAL HISTORY Procedure Laterality Date APPENDECTOMY APPENDECTOMY 1987 COLONOSCOPY 08-19-13 COLONOSCOPY FLX DX W/COLLJ SPEC WHEN PFRMD 09/19/2019 Colonoscopy COLONOSCOPY W/BIOPSY SINGLE/MULTIPLE 03-15-09 minimal colitis-repeat in COLPOSCOPY CERVIX UPPER/ADJACENT VAGINA Colposcopy DILATION & CURETTAGE DX&/THER NONOBSTETRIC 2002 Dilation & curettage EGD 08-19-13 ESOPHAGOGASTRODUODENOSCOPY TRANSORAL DIAGNOSTIC 09/19/2019 EGD LIG/TRNSXJ FLP TUBE ABDL/VAG APPR UNI/BI 1989&1991 Tubal ligation PAST SURGICAL HISTORY OF 2000 BRAIN SURG/HYDROCEPHALIS - PAST SURGICAL HISTORY OF 2000 REPAIR TENNIS ELBOW PAST SURGICAL HISTORY OF 09/07/06, 05/10,11/08 repair rotator cuff/tendon rt. shoulder PAST SURGICAL HISTORY OF 10/2017 ex lap, ALFRED PROCEDURE , COLOSTOMY PICC LINE INSERT/CONSULT 10/26/2017 REPAIR FIRST ABDOMINAL WALL HERNIA 04/05/2020 Hernia repair, incisional STEREOTACTIC LOCALIZATION BREAST BIOPSY 06/10/15 right TUBAL LIGATION HX 1989 and 1991 VAGINAL HYSTERECTOMY UTERUS 250 GM/< 09/04/2008 Hysterectomy, vaginal/TVT Family History FAMILY HISTORY Problem Relation Age of Onset Heart Mother skin cancer on nose Breast Cancer Mother Heart Father Hypertension Father Heart Maternal Grandmother Thyroid Sister Thyroid Paternal Aunt Patient Allergies ALLERGIES Allergen Reactions Dilaudid [Hydromorp* Other: See Comments Pt states she hallucinates Sulfa (Sulfonamide * Rash Ultram [Tramadol Hc* GI Upset Pt. tried again on 02-13 and became very ill with GI issues Oxycontin [Oxycodon* Swelling Relafen [Nabumetone] GI Upset Current Medications Current Outpatient Medications on File Prior to Visit Medication Sig meloxicam (MOBIC) 15 mg tablet Take 1 tablet by mouth once daily. Take with food. fluticasone (FLONASE) 50 mcg/actuation nasal spray Use 2 Sprays in each nostril once daily. Rinse mouth after use. atorvastatin (LIPITOR) 10 mg tablet Take 1 tablet by mouth daily at bedtime. For cholesterol. metoprolol succinate ER (TOPROL XL) 50 mg 24 hr tablet Take 1 tablet by mouth once daily. (Patient taking differently: Take 100 mg by mouth once daily. ) albuterol (PROVENTIL) 2.5 mg /3 mL (0.083 %) nebulizer solution Use 3 mL via nebulizer every 6 hours as needed for wheezing/shortness of breath. Use over 5-15minutes. vit C-Zn gluc-herbal no.325 (ELDERBERRY ZINC VIT C) 90-15 mg lozg Use 1 Lozenge as instructed twice daily. albuterol HFA (PROVENTIL HFA, VENTOLIN HFA) 90 mcg/actuation inhaler Inhale 2 Puffs as instructed every 4 hours as needed for wheezing/shortness of breath. losartan (COZAAR) 50 mg tablet 50 mg once daily. omega-3/dha/epa/dpa/fish oil (OMEGA-3 2100 ORAL) Take by mouth. acetaminophen (TYLENOL) 650 mg/20.3 mL soln Take 20.3 mL by mouth every 6 hours as needed. calcium carbonate (CALTRATE 600 ORAL) Take 1 tablet by mouth once daily. multivitamin (MULTIPLE VITAMINS) tablet Take 1 tablet by mouth once daily. tiZANidine (ZANAFLEX) 4 mg tablet Take 1 tablet by mouth every 8 hours as needed. (Patient taking differently: Take 2 mg by mouth every 8 hours as needed. ) BIOTIN ORAL Take 1 tablet by mouth once daily. ASCORBIC ACID (VITAMIN C ORAL) Take 1 tablet by mouth once daily. Magnesium 30 mg tablet Take 30 mg by mouth twice daily. Cholecalciferol, Vitamin D3, 2,000 unit cap Take 10,000 Units by mouth once daily. sertraline (ZOLOFT) 100 mg tablet Take 1 tablet by mouth once daily. peg 3350-Electrolytes (GOLYTELY) 236-22.74-6.74 -5.86 gram suspension Refer to printed prep instructions from your provider. (Patient not taking: Reported on 01/03/2022 ) traZODone (DESYREL) 100 mg tablet Take 2 tablets by mouth daily at bedtime. CPAP Adjust pressures to Autopap 6-11 cm H2O, SEND Heat Humidity tubing (SHAYLA), suitable mask ( mask fitting for Airfit N30i), Lifetime supplies, opt Chinstrap, G47.33. (Patient not taking: Reported on 07/19/2021 ) Current Facility-Administered Medications on File Prior to Visit Medication perflutren lipid microspheres 1.3 mL in NaCl (PF) 0.9% 10 mL injection (DEFINITY) sodium chloride 0.9 % (flush) 10 mL (BD POSIFLUSH) Social History Social History Tobacco Use Smoking status: Former Smoker Packs/day: 0.10 Years: 2.00 Pack years: 0.20 Types: Cigarettes Quit date: 04/26/2010 Years since quittin.7 Smokeless tobacco: Never Used Tobacco comment: half a pack a week, hasn't smoked since 05/2009 Vaping Use Vaping Use: Never used Substance Use Topics Alcohol use: Yes Comment: occasionally, several times a month glass of wine or mixed drink Drug use: No Review of Symptoms REVIEW OF SYSTEMS GENERAL: No weight loss, malaise or fevers NECK: Negative for lumps, goiter, pain and significant neck swelling. With her allergies her neck glands will get swollen at times and tender. RESPIRATORY: Negative for hemoptysis, no increased wheezing, COPD, dyspnea or shortness of breath from base line. Wearing her O2. Has a cough that is productive in the morning. typically clear to white with occasional green mucus. CARDIOVASCULAR: Negative for leg swelling, hypertension, CHF or palpitations. Has been having chest pain that will increase with activity and seeing cardio tomorrow. Has noted palpations. GI: No nausea, vomiting, or diarrhea and No heartburn or reflux symptoms MUSCULOSKELETAL: see HPI PSYCH: controlled with zoloft NEURO: No history of headaches, paralysis, seizures or tremors. See HPI EXAM: BP 118/70 Pulse (!) 56 Resp 16 Wt 84.9 kg (187 lb 3.2 oz) LMP 08/04/2008 SpO2 97% BMI 28.05 kg/m Last 5 Encounter Wt Readings: Date: Wt: 01/24/2022 84.9 kg (187 lb 3.2 oz) 01/03/2022 85.1 kg (187 lb 9.6 oz) 12/15/2021 86.2 kg (190 lb) 11/04/2021 87.2 kg (192 lb 3.2 oz) 09/06/2021 88 kg (194 lb) General Appearance: Well appearing, alert, in no acute distress, well-hydrated, well nourished.. Neck: Supple, no adenopathy; thyroid symmetric, normal size, no bruits. Eyes: pupils equally round and reactive to light/EOMI Lungs: Lungs clear to auscultation. No wheezing, rhonchi, rales.. Heart: RRR without murmur, gallop, or rubs. No ectopy. Abdomen: Normal abdominal exam, Abdomen soft, non-tender. Bowel sounds normal. No masses, organomegaly. Extremities: No deformities, edema, skin discoloration. Peripheral Pulses: Normal. Neurologic: Gait normal. Sensation to light touch and crainal nerves 2-12 intact.. Health Maintenance List HIV SCREENING Never done SHINGRIX VACCINE(1 of 2) Never done MAMMOGRAM due on 04/14/2022 COVID-19 VACCINE(1) due on 07/26/2022 BP CONTROLLED (<130/80) due on 06/13/2022 ANNUAL PCP TEAM CHRONIC DISEASE VISIT due on 07/26/2022 DIABETES SCREEN due on 07/26/2024 DTAP,TDAP,TD(4 - Td or Tdap) due on 08/08/2024 COLORECTAL CANCER SCREENING due on 09/19/2024 LIPID SCREEN due on 07/26/2026 INFLUENZA Completed HEPATITIS C SCREENING Completed PAP TESTING Discontinued HPV TESTING Discontinued Data reviewed Component Latest Ref Rng & Units 07/26/2021 01/06/2022 Glucose 74 - 99 mg/dL 97 BUN 7 - 21 mg/dL 19 Creatinine 0.58 - 0.96 mg/dL 1.01 (H) Sodium 136 - 144 mmol/L 143 Potassium 3.7 - 5.1 mmol/L 3.8 Chloride 97 - 105 mmol/L 103 CO2 22 - 30 mmol/L 29 Anion Gap 9 - 18 mmol/L 11 Calcium 8.5 - 10.2 mg/dL 9.8 eGFR- >60 eGFR-All Other Races . 55 Total Cholesterol, Nonfasting <200 mg/dL 181 Triglycerides, Nonfasting <150 mg/dL 270 (H) HDL Cholesterol, Nonfasting >39 mg/dL 52 LDL Cholesterol, Nonfasting <100 mg/dL 75 Non HDL Cholesterol, Nonfasting <130 mg/dL 129 VLDL Cholesterol, Nonfasting <30 mg/dL 54 (H) Total Chol/HDL Ratio, Nonfasting <5.10 mg/dL 3.48 LDL/HDL Ratio, Nonfasting <2.54 mg/dL 1.44 Shigella spp./Enteroinvasive E.coli DNA Not Detected Not detected Campylobacter jejuni/coli DNA Not Detected Not detected Shiga toxin-producing gene(s) Not Detected Not detected Salmonella spp. DNA Not Detected Not detected Hemoglobin A1C 4.3 - 5.6 % 5.6 Estimated Average Glucose mg/dL 114 A/P ASSESSMENT/PLAN: 1. Hypertension, essential - ICD9: 401.9, ICD10: I10 (primary diagnosis) - good control - Continue current medication(s) - Recommended regular aerobic exercise. - Recommend home blood pressure monitoring, to bring results in on next visit - Goal of BP <130/80 Check - COMP METABOLIC PANEL - LIPID PANEL, NONFASTING 2. Mixed hyperlipidemia - ICD9: 272.2, ICD10: E78.2 - to be determined upon return of lab results - Encouraged following a low fat, low cholesterol diet. - Discussed the benefits of regular aerobic exercise and weight loss. - Encouraged following a low carbohydrate, healthy oil intake diet. - Continue current therapy. Check - COMP METABOLIC PANEL - LIPID PANEL, NONFASTING 3. Thoracic aortic aneurysm without rupture (HCC) - ICD9: 441.2, ICD10: I71.2 - Management per Cardio 4. Moderate aortic regurgitation - ICD9: 424.1, ICD10: I35.1 - As per #3 5. Ascending aorta dilatation (HCC) - ICD9: 447.71, ICD10: I77.810 - As per #3 6. Other migraine without status migrainosus, not intractable - ICD9: 346.80, ICD10: G43.809 - Clinically doing ok with no headache's 7. Situational mixed anxiety and depressive disorder - ICD9: 309.28, ICD10: F43.23 - Cont zoloft at current dosage 8. Chronic anxiety - ICD9: 300.00, ICD10: F41.9 - As per #8 - Will try hydroxyzine 10 mg tid as needed. 9. Lung nodule < 6cm on CT - ICD9: 793.11, ICD10: R91.1 - Management per Pulm 10. Chronic hypoxemic respiratory failure (HCC) - ICD9: 518.83, 799.02, ICD10: J96.11 - As per #9 11. Post-COVID chronic dyspnea - ICD9: 786.09, 139.8, ICD10: R06.09, U09.9 - As per #9 12. Palpitations - ICD9: 785.1, ICD10: R00.2 Check - COMP METABOLIC PANEL - TSH BLD - CBC + DIFF - T4 FREE/FREE THYROX 13. Hydrocephalus, adult (HCC) - ICD9: 331.4, ICD10: G91.9 Check - CONSULT TO NEUROLOGY - CT BRAIN WO IVCON 14. Dizziness - ICD9: 780.4, ICD10: R42 Check - US CAROTID ARTERIES [facility] - COMP METABOLIC PANEL - TSH BLD - CBC + DIFF - T4 FREE/FREE THYROX - CT BRAIN WO IVCON 15. Syncope, unspecified syncope type - ICD9: 780.2, ICD10: R55 check - US CAROTID [facility]ERIES [facility] - TSH BLD - CBC + DIFF - T4 FREE/FREE THYROX - CT BRAIN WO IVCON 16. Allergy, initial encounter - ICD9: 995.3, ICD10: T78.40XA - CONSULT TO ALLERGY/IMMUNOLOGY 17. Other hydrocephalus (HCC) - ICD9: 331.4, ICD10: G91.8 - CT BRAIN WO IVCON Patient seeing cardiology tomorrow and advised her to discuss her chest pain and palpitations with them. Signed Prescriptions Disp Refills meloxicam (MOBIC) 15 mg tablet 90 tablet 1 Sig: Take 1 tablet by mouth once daily. Take with food. SHAYLA: No F/u in a week for lumps in legs F/u 6 months complete PE. Ganga Sheppard MD documented in this encounter [facility] 01-10-2022 Miscellaneous Notes Patient phones requesting refills as follows: Pending Prescriptions Disp Refills MELOXICAM 15 MG TABLET 30 tablet 11 Sig: Take 1 tablet by mouth once daily. Take with food. SHAYLA: No SERTRALINE 100 MG TABLET 30 tablet 5 Sig: Take 1 tablet by mouth once daily. SHAYLA: No MINE 07/26/21 NOV 01/24/22 Please review and advise. Abelardo Duran LPN documented in this encounter [facility] 01-03-2022 History of Present illness Narrative Images from the original note were not included. Subjective HPI Kristina Macario is a 61 year old female who presents with ear pain (right) sores in mouth, sinus congestion and drainage, coughing up mucous, and headache for the past 3 weeks. She has hx of COVID and is on oxygen. She has not taken any medication at home for her symptoms-states nothing works when her sinuses get infected. She denies fever. Review of Systems Constitutional: Negative for chills and fever. HENT: Positive for congestion, ear pain and sinus pain. Negative for sore throat. Respiratory: Positive for cough, sputum production and shortness of breath (chronic). Cardiovascular: Negative. Neurological: Positive for headaches. BP 142/80 Pulse (!) 50 Temp 36.7 C (98.1 F) Resp 16 Wt 85.1 kg (187 lb 9.6 oz) LMP 08/04/2008 SpO2 97% BMI 28.11 kg/m PAST MEDICAL HISTORY Diagnosis Date Abnormal mammogram Arthritis of knee, left 01/31/2013 Arthritis of left hip 01/19/2016 Ascending aorta dilatation (HCC) 07/04/2017 04/19/16: 4.2 cm 06/11/17: 4.4 cm 06/24/18 4.4 cm Cerebral degeneration in diseases classified elsewhere(331.7) Hydrocephalus Cervical high risk human papillomavirus (HPV) DNA test positive 05/27/2008 Chronic diarrhea 12/09/2018 DDD (degenerative disc disease), lumbar 07/24/[address] [facility] Excessive or frequent menstruation Heavy periods Fibromyalgia 02/26/2014 Hemorrhage of gastrointestinal tract, unspecified History of COVID-19 06/13/202105/2021 Hydrocephalus, adult (HCC) 02/09/2003 Hypertension, essential 01/22/2019 Mild dysplasia of cervix 2007 Mixed hyperlipidemia 01/20/2016 Nonrheumatic mitral valve disorder, unspecified 04/06/2016 Obstructive sleep apnea 10/13/2016 DME - [facility] Plantar fasciitis 2018 PMH - PAST MEDICAL HISTORY OF RECTAL BLEEDING Postcoital bleeding Primary insomnia 06/13/2021 Rectocele 04/19/2007 Renal cyst 07/13/2016 Situational mixed anxiety and depressive disorder 11/12/2017 Thoracic aortic aneurysm without rupture (HCC) 2018 Unspecified constipation Constipation Unspecified visual disturbance DOUBLE VISION Urge incontinence 04/19/2007 Vitamin D deficiency 07/23/2012 Well adult exam 06/13/2021 Last done: 06/13/2021 PAST SURGICAL HISTORY Procedure Laterality Date APPENDECTOMY APPENDECTOMY 1987 COLONOSCOPY 08-19-13 COLONOSCOPY FLX DX W/COLLJ SPEC WHEN PFRMD 09/19/2019 Colonoscopy COLONOSCOPY W/BIOPSY SINGLE/MULTIPLE 03-15-09 minimal colitis-repeat in COLPOSCOPY CERVIX UPPER/ADJACENT VAGINA Colposcopy DILATION & CURETTAGE DX&/THER NONOBSTETRIC 2002 Dilation & curettage EGD 08-19-13 ESOPHAGOGASTRODUODENOSCOPY TRANSORAL DIAGNOSTIC 09/19/2019 EGD LIG/TRNSXJ FLP TUBE ABDL/VAG APPR UNI/BI 1989&1991 Tubal ligation PAST SURGICAL HISTORY OF 2000 BRAIN SURG/HYDROCEPHALIS - PAST SURGICAL HISTORY OF 2000 REPAIR TENNIS ELBOW PAST SURGICAL HISTORY OF 09/07/06, 05/10,11/08 repair rotator cuff/tendon rt. shoulder PAST SURGICAL HISTORY OF 10/2017 ex lap, ALFRED PROCEDURE , COLOSTOMY PICC LINE INSERT/CONSULT 10/26/2017 REPAIR FIRST ABDOMINAL WALL HERNIA 04/05/2020 Hernia repair, incisional STEREOTACTIC LOCALIZATION BREAST BIOPSY 06/10/15 right TUBAL LIGATION HX 1989 and 1991 VAGINAL HYSTERECTOMY UTERUS 250 GM/< 09/04/2008 Hysterectomy, vaginal/TVT ALLERGIES Dilaudid [Hydromorphone (Pf)], Sulfa (Sulfonamide Antibiotics), Ultram [Tramadol Hcl], Oxycontin [Oxycodone Hcl], and Relafen [Nabumetone] MEDICATIONS fluticasone (FLONASE) 50 mcg/actuation nasal spray Use 2 Sprays in each nostril once daily. Rinse mouth after use. atorvastatin (LIPITOR) 10 mg tablet Take 1 tablet by mouth daily at bedtime. For cholesterol. metoprolol succinate ER (TOPROL XL) 50 mg 24 hr tablet Take 1 tablet by mouth once daily. traZODone (DESYREL) 100 mg tablet Take 2 tablets by mouth daily at bedtime. meloxicam (MOBIC) 15 mg tablet Take 1 tablet by mouth once daily. Take with food. sertraline (ZOLOFT) 100 mg tablet Take 1 tablet by mouth once daily. albuterol (PROVENTIL) 2.5 mg /3 mL (0.083 %) nebulizer solution Use 3 mL via nebulizer every 6 hours as needed for wheezing/shortness of breath. Use over 5-15minutes. vit C-Zn gluc-herbal no.325 (ELDERBERRY ZINC VIT C) 90-15 mg lozg Use 1 Lozenge as instructed twice daily. albuterol HFA (PROVENTIL HFA, VENTOLIN HFA) 90 mcg/actuation inhaler Inhale 2 Puffs as instructed every 4 hours as needed for wheezing/shortness of breath. losartan (COZAAR) 50 mg tablet 50 mg once daily. acetaminophen (TYLENOL) 650 mg/20.3 mL soln Take 20.3 mL by mouth every 6 hours as needed. calcium carbonate (CALTRATE 600 ORAL) Take 1 tablet by mouth once daily. multivitamin (MULTIPLE VITAMINS) tablet Take 1 tablet by mouth once daily. tiZANidine (ZANAFLEX) 4 mg tablet Take 1 tablet by mouth every 8 hours as needed. BIOTIN ORAL Take 1 tablet by mouth once daily. ASCORBIC ACID (VITAMIN C ORAL) Take 1 tablet by mouth once daily. Magnesium 30 mg tablet Take 30 mg by mouth twice daily. Cholecalciferol, Vitamin D3, 2,000 unit cap Take 2,000 Units by mouth once daily. amoxicillin-clavulanic acid (AUGMENTIN) 875-125 mg per tablet Take 1 tablet by mouth twice daily for 7 days. peg 3350-Electrolytes (GOLYTELY) 236-22.74-6.74 -5.86 gram suspension Refer to printed prep instructions from your provider. omega-3/dha/epa/dpa/fish oil (OMEGA-3 2100 ORAL) Take by mouth. CPAP Adjust pressures to Autopap 6-11 cm H2O, SEND Heat Humidity tubing (SHAYLA), suitable mask ( mask fitting for Airfit N30i), Lif[employer] supplies, opt [place], G47.33. FAMILY HISTORY Problem Relation Age of Onset Heart Mother skin cancer on nose Breast Cancer Mother Heart Father Hypertension Father Heart Maternal Grandmother Thyroid Sister Thyroid Paternal Aunt Social History Tobacco Use Smoking status: Former Smoker Packs/day: 0.10 Years: 2.00 Pack years: 0.20 Types: Cigarettes Quit date: 04/26/2010 Years since quittin.6 Smokeless tobacco: Never Used Tobacco comment: half a pack a week, hasn't smoked since 05/2009 Vaping Use Vaping Use: Never used Substance Use Topics Alcohol use: Yes Comment: occasionally, several times a month glass of wine or mixed drink Drug use: No Objective Physical Exam Vitals and nursing note reviewed. Constitutional: Appearance: She is obese. HENT: Right Ear: Tympanic membrane, ear canal and external ear normal. Left Ear: Tympanic membrane, ear canal and external ear normal. Nose: Mucosal edema, congestion and rhinorrhea present. Mouth/Throat: Mouth: Mucous membranes are moist. Pharynx: Oropharynx is clear. Uvula midline. No oropharyngeal exudate or posterior oropharyngeal erythema. Cardiovascular: Rate and Rhythm: Normal rate and regular rhythm. Heart sounds: Normal heart sounds. Pulmonary: Effort: Pulmonary effort is normal. No respiratory distress. Breath sounds: Normal breath sounds. No wheezing or rales. Musculoskeletal: Cervical back: Neck supple. Lymphadenopathy: Cervical: No cervical adenopathy. Skin: General: Skin is warm and dry. Findings: No erythema or rash. Neurological: Mental Status: She is alert. ASSESSMENT/PLAN: 1. Acute sinusitis, recurrence not specified, unspecified location - ICD9: 461.9, ICD10: J01.90 - Will begin treatment with Augmentin 875 mg PO BID for 7 days - Supportive care with plenty of fluids, rest, and analgesia prn. - AMOXICILLIN 875 MG-POTASSIUM CLAVULANATE 125 MG TABLET - FLUTICASONE PROPIONATE 50 MCG/ACTUATION NASAL SPRAY,SUSPENSION - Follow-up with your PCP in 3-5 days if symptoms have not improved or sooner if symptoms worsen - Discussed red flags and need for immediate medical evaluation if any occur. - Discussed supportive care treatment with fluids, rest and analgesia. - Discussed expected course of illness Diana Chavez APRN.CNP documented in this encounter [facility] 01-03-2022 Instructions Diana Chavez APRN.CNP - 01/03/2022 8:19 AM EDT Images from the original note were not included. ASSESSMENT/PLAN: 1. Acute sinusitis, recurrence not specified, unspecified location - ICD9: 461.9, ICD10: J01.90 - Will begin treatment with Augmentin 875 mg PO BID for 7 days - Supportive care with plenty of fluids, rest, and analgesia prn. - AMOXICILLIN 875 MG-POTASSIUM CLAVULANATE 125 MG TABLET - FLUTICASONE PROPIONATE 50 MCG/ACTUATION NASAL SPRAY,SUSPENSION - Follow-up with your PCP in 3-5 days if symptoms have not improved or sooner if symptoms worsen - Discussed red flags and need for immediate medical evaluation if any occur. - Discussed supportive care treatment with fluids, rest and analgesia. - Discussed expected course of illness Diana Chavez APRN.CNP Adult Sinusitis Patient Education What is Sinusitis? Sinusitis [[id number]] is inflammation of the sinuses or swelling of the lining of the sinus cavity or nose. During an infection the sinuses become blocked with fluid causing swelling of the lining of the sinuses. Symptoms: (viral and bacterial infections) Stuffy nose Runny nose Postnasal drip Fever Toothache Headache Tiredness Cough Sore throat Face and head pressure and or pain Common causes: 98% of sinus infections are viral caused by viruses. Risk Factors of Sinusitis Include: Allergies, air pollution, indoor humidity and outdoor temperature changes, andstructural changes in the nose may contribute to sinus pain, pressure and congestion. When to get help? Temperature greater than 100.4 F Symptoms lasting more than 10 days or worsening symptoms greater than 7-10 days. If you do not improve or worsen after a course of antibiotics, you should be re-examined. Diagnosis and Treatment: Your healthcare provider will ask a number of questions about your symptoms and how long they have occurred. If symptoms of sinusitis persist greater than 10 days, it is possible you have a bacterial sinus infection and an antibiotic is prescribed. If it is viral, antibiotics will not help. You may be instructed to take [id number] medications for symptoms. including fever reducers acetaminophen or ibuprofen, nasal saline spray, cough and cold preparations and decongestants as prescribed by the physician, nurse practitioner or physician processing assistant. 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 Kristina notes concerns about frequent diarrhea and watery stools. She notes great difficulty in trying to get her stools to be solidified. She notes occasional abdominal cramping. She denies blood in her stools. She does note dark stools. She states she has had diarrhea for least the past 2 months ever since she was recovering from her COVID infection. He had previous diverticular abscess recurring partial colectomy with end Bowman's colostomy and then later reanastomosis complicated by an abscess. This was performed in 2017. The patient is current reflux or heartburn. She did have previous gastritis which was demonstrated in upper endoscopy 2 years previously Kristina has undergone prior endoscopy. Patient had upper and lower endoscopy in 2019. Patient had relatively severe COVID-pneumonia. Was treated with high flow oxygen. She still having sequela including need for oxygen currently. A CT scan in September demonstrated post viral groundglass appearances. The patient is being seen by me today at the request of Dr. Ganga Sheppard MD for my opinion and advice regarding unexplained diarrhea. 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 [facility] Excessive or frequent menstruation Heavy periods Fibromyalgia 02/26/2014 Hemorrhage of gastrointestinal tract, unspecified History of COVID-19 06/13/202105/2021 Hydrocephalus, adult (HCC) 02/09/2003 Hypertension, essential 01/22/2019 Mild dysplasia of cervix 2007 Mixed hyperlipidemia 01/20/2016 Nonrheumatic mitral valve disorder, unspecified 04/06/2016 Obstructive sleep apnea 10/13/2016 DME - [facility] Plantar fasciitis 2018 PMH - PAST MEDICAL HISTORY OF RECTAL BLEEDING Postcoital bleeding Primary insomnia 06/13/2021 Rectocele 04/19/2007 Renal cyst 07/13/2016 Situational mixed anxiety and depressive disorder 11/12/2017 Thoracic aortic aneurysm without rupture (HCC) 2018 Unspecified constipation Constipation Unspecified visual disturbance DOUBLE VISION Urge incontinence 04/19/2007 Vitamin D deficiency 07/23/2012 Well adult exam 06/13/2021 Last done: 06/13/2021 PAST SURGICAL HISTORY Procedure Laterality Date APPENDECTOMY APPENDECTOMY 1986 COLONOSCOPY 08-19-13 COLONOSCOPY FLX DX W/COLLJ SPEC WHEN PFRMD 09/19/2019 Colonoscopy COLONOSCOPY W/BIOPSY SINGLE/MULTIPLE 03-15-09 minimal colitis-repeat in COLPOSCOPY CERVIX UPPER/ADJACENT VAGINA Colposcopy DILATION & CURETTAGE DX&/THER NONOBSTETRIC 2002 Dilation & curettage EGD 08-19-13 ESOPHAGOGASTRODUODENOSCOPY TRANSORAL DIAGNOSTIC 09/19/2019 EGD LIG/TRNSXJ FLP TUBE ABDL/VAG APPR UNI/BI 1989&1991 Tubal ligation PAST SURGICAL HISTORY OF 2000 BRAIN SURG/HYDROCEPHALIS - PAST SURGICAL HISTORY OF 2000 REPAIR TENNIS ELBOW PAST SURGICAL HISTORY OF 09/07/06, 05/10,11/08 repair rotator cuff/tendon rt. shoulder PAST SURGICAL HISTORY OF 10/2017 ex lap, ALFRED PROCEDURE , COLOSTOMY PICC LINE INSERT/CONSULT 10/26/2017 REPAIR FIRST ABDOMINAL WALL HERNIA 04/05/2020 Hernia repair, incisional STEREOTACTIC LOCALIZATION BREAST BIOPSY 06/10/15 right TUBAL LIGATION HX 1989 and 1991 VAGINAL HYSTERECTOMY UTERUS 250 GM/< 09/04/2008 Hysterectomy, vaginal/TVT Current Outpatient Medications Medication Sig peg 3350-Electrolytes (GOLYTELY) 236-22.74-6.74 -5.86 gram suspension Refer to printed prep instructions from your provider. atorvastatin (LIPITOR) 10 mg tablet Take 1 tablet by mouth daily at bedtime. For cholesterol. metoprolol succinate ER (TOPROL XL) 50 mg 24 hr tablet Take 1 tablet by mouth once daily. traZODone (DESYREL) 100 mg tablet Take 2 tablets by mouth daily at bedtime. meloxicam (MOBIC) 15 mg tablet Take 1 tablet by mouth once daily. Take with food. sertraline (ZOLOFT) 100 mg tablet Take 1 tablet by mouth once daily. albuterol (PROVENTIL) 2.5 mg /3 mL (0.083 %) nebulizer solution Use 3 mL via nebulizer every 6 hours as needed for wheezing/shortness of breath. Use over 5-15minutes. vit C-Zn gluc-herbal no.325 (ELDERBERRY ZINC VIT C) 90-15 mg lozg Use 1 Lozenge as instructed twice daily. albuterol HFA (PROVENTIL HFA, VENTOLIN HFA) 90 mcg/actuation inhaler Inhale 2 Puffs as instructed every 4 hours as needed for wheezing/shortness of breath. fluticasone (FLONASE) 50 mcg/actuation nasal spray Use 2 Sprays in each nostril once daily. Rinse mouth after use. losartan (COZAAR) 50 mg tablet 50 mg once daily. omega-3/dha/epa/dpa/fish oil (OMEGA-3 2100 ORAL) Take by mouth. CPAP Adjust pressures to Autopap 6-11 cm H2O, SEND Heat Humidity tubing (SHAYLA), suitable mask ( mask fitting for Airfit N30i), [employer] supplies, opt [place], G47.33. (Patient not taking: Reported on 07/19/2021 ) acetaminophen (TYLENOL) 650 mg/20.3 mL soln Take 20.3 mL by mouth every 6 hours as needed. calcium carbonate (CALTRATE 600 ORAL) Take 1 tablet by mouth once daily. multivitamin (MULTIPLE VITAMINS) tablet Take 1 tablet by mouth once daily. tiZANidine (ZANAFLEX) 4 mg tablet Take 1 tablet by mouth every 8 hours as needed. (Patient taking differently: Take 2 mg by mouth every 8 hours as needed. ) BIOTIN ORAL Take 1 tablet by mouth once daily. ASCORBIC ACID (VITAMIN C ORAL) Take 1 tablet by mouth once daily. Magnesium 30 mg tablet Take 30 mg by mouth twice daily. Cholecalciferol, Vitamin D3, 2,000 unit cap Take 2,000 Units by mouth once daily. Current Facility-Administered Medications Medication Dose Route Frequency perflutren lipid microspheres 1.3 mL in NaCl (PF) 0.9% 10 mL injection (DEFINITY) INTRAVENOUS DIRECTED PRN sodium chloride 0.9 % (flush) 10 mL (BD POSIFLUSH) 10 mL INTRAVENOUS DIRECTED PRN ALLERGIES: Dilaudid [Hydromorphone (Pf)], Sulfa (Sulfonamide Antibiotics), Ultram [Tramadol Hcl], Oxycontin [Oxycodone Hcl], and Relafen [Nabumetone] PERSONAL HISTORY: Social History Tobacco Use Smoking status: Former Smoker Packs/day: 0.10 Years: 2.00 Pack years: 0.20 Types: Cigarettes Quit date: 04/26/2010 Years since quittin.6 Smokeless tobacco: Never Used Tobacco comment: half a pack a week, hasn't smoked since 05/2009 Vaping Use Vaping Use: Never used Substance Use Topics Alcohol use: Yes Comment: occasionally, several times a month glass of wine or mixed drink Drug use: No FAMILY HISTORY: FAMILY HISTORY Problem Relation Age of Onset Heart Mother skin cancer on nose Breast Cancer Mother Heart Father Hypertension Father Heart Maternal Grandmother Thyroid Sister Thyroid Paternal Aunt REVIEW OF SYMPTOMS: The review of systems data was entered by the nurse and reviewed by mi Nursing Notes: Felisa Robson 12/15/2021 12:32 PM Signed REVIEW OF SYSTEMS: General: The patient NOTES fatigue, denies weight loss, NOTES weight gain, NOTES feeling hot, and denies feelings of cold. Eyes: The patient denies glaucoma, denies eye injury/surgery, wears glasses or contacts. Ear/Nose/Throat: The patient NOTES allergies, denies hayfever, NOTES ear infections, and denies bloody noses. Cardiovascular: The patient NOTES chest pain, denies heart disease, NOTES high blood pressure,denies cardiac stent, denies prior heart attack, NOTES irregular heart beat, NOTES high cholesterol, denies poor circulation, NOTES heart failure, other cardiac issues, denies claudication, NOTES cold feet, denies peripheral arterial stent. Respiratory: The patient denies tuberculosis, NOTES pneumonia, denies frequent cough, denies pulmonary embolism, denies shortness of breath, and denies coughing up blood. Gastrointestinal: The patient denies difficulty swallowing, denies acid reflux, denies ulcers, denies vomiting, denies jaundice/hepatitis, denies gallbladder problems, denies black or tarry stools, denies hemorrhoids, denies bleeding from rectum, NOTES diverticulitis, NOTES constipation, NOTES diarrhea, NOTES loss of stool control, and denies hernias. Kidney/Bladder: The patient denies kidney stones, NOTES urine infections, and denies bloody urine. Skin: The patient denies a history of skin cancer, denies bleeding/changing moles, and denies a history of skin rash. Neurologic: The patient denies a history of epilepsy/convulsions, NOTES headaches, denies head/spinal injuries, and denies stroke/TIA. Psychiatric: The patient denies psychiatric medications, NOTES depression, and denies voices, denies substance abuse. Endocrine: The patient denies thyroid disorders, denies diabetes, and denies hormonal problems. Hematologic: The patient NOTES a history of bruising, NOTES bleeding, and denies anemia, NOTES blood clots. Infections: The patient NOTES a history of measles and mumps, denies rheumatic fever, and denies sexually transmitted diseases. Musculoskeletal: The patient NOTES back pain/injury, NOTES back problems, NOTES sciatica, NOTES knee/foot trouble, NOTES arthritis, or denies gout. When was patient's last Mammogram screening? 04/14/2021 Last Colonoscopy: 09/19/2019 Felisa Chance PHYSICAL EXAMINATION: General: The patient is 61 year old female, well nourished, well hydrated in no acute distress. The patient is oriented to time, place, and person. VITALS: Blood pressure 132/69, pulse 65, temperature 36.9 C (98.4 F), height 174 cm (5' 8.5 ), weight 86.2 kg (190 lb), last menstrual period 08/04/2008, SpO2 100 %. Body mass index is 28.47 kg/m . HEENT: Normal cephalic, ataumatic, pupils are equally round, sclera are anicteric, mucous membranes are moist, oropharynx is clear. Neck has no masses, asymmetry or lymphadenopathy. Thyroid is unremarkable. Respiratory: Clear to auscultation and percussion. Normal respiratory excursion and pattern. Cardiac: Examination is regular rate and rhythm. Abdominal exam: Soft, nontender, with no palpable masses. No hepatosplenomegaly. No palpable hernias. Rectal exam: exam deferred Extremities: no clubbing, cyanosis or edema. No adenopathy. Other: LABORATORY VALUES: As Noted RADIOLOGIC STUDIES: As Noted Assessment IMPRESSION: Diarrhea of unexplained origin, history of gastritis, post COVID sequela of lung issues PLAN: I plan to obtain stool for occult blood, C. difficile, enteric pathogens, fecal leukocytes, and ova and parasites. If these are positive we will treat accordingly. I plan to perform upper and lower endoscopy. We discussed the risks and benefits of the planned endoscopy. I have informed the patient that complications can occur including failure to complete the endoscopy and perforation. The patient had the opportunity to ask questions concerning the planned endoscopy. My staff has also explained the procedure to the patient in understandable terms and has given the patient printed material concerning the procedure. The patient freely consents to surgery. I plan to use golytely bowel preparation for endoscopy I plan for monitored anesthetic care. Diagnoses: (R19.7) Diarrhea of presumed infectious origin (primary encounter diagnosis) My findings have been communicated to Dr. Ganga Sheppard MD via shared medical record. This note will be forwarded to Dr. Ganga Sheppard MD. Return to Clinic: The patient is instructed to follow-up with me after the testing has been completed. Carmine Montez MD documented in this encounter [facility] 12-15-2021 Instructions Carmine Montez MD - 12/15/2021 12:49 PM EDT Images from the original note were not included. Bowel Preparation Instructions for: Golytely, Nulytely, Trilyte or Colyte (polyethylene glycol 3350 and electrolytes) IF YOU DO NOT FOLLOW THESE DIRECTIONS, YOUR COLONOSCOPY WILL BE CANCELLED. [place] Instructions: Your bowel must be empty so that your doctor can clearly view your colon. Follow all of the instructions in this handout EXACTLY as they are written. Do NOT eat any solid food the ENTIRE day before your colonoscopy. Drink only clear liquids. Buy your bowel preparation at least 5 days before your colonoscopy. TRANSPORTATION on the Day of Your Exam A responsible person MUST be present with you at Check In prior to your colonoscopy and REMAIN in the endoscopy area until you are discharged. You are NOT ALLOWED to drive, take a taxi or bus, or leave the Endoscopy Center ALONE. If you do not have a responsible parts driver (family member or friend) with you to take you home, your exam cannot be done with sedation and will be cancelled. Please bring a list of all of your current medications, including any Over-the Counter medications with you. Medications If you take insulin, diabetic medications or blood thinners such as Coumadin (warfarin), Plavix (clopidogrel), Ticlid (ticlopidine hydrochloride), Agrylin (anagrelide), Xarelto (Rivaroxaban), Pradaxa (Dabigatran), Eliquis (Apixaban), and Effient (Prasugrel). You MUST call the doctors who orders those medicines for instructions on altering the dosage before your colonoscopy. All other medications should be taken the day of the exam with a sip of water including ASPIRIN. Five (5) Days Before Your Colonoscopy Do NOT take medicines that stop diarrhea - such as Imodium, Kaopectate, or Pepto Bismol. Do NOT take fiber supplements - such as Metamucil, Citrucel, or Perdiem. Do NOT take products that contain iron - such as multi-vitamins (the label lists what is in the products). Do NOT take Vitamin E. Buy the prescription bowel preparation solution at your local pharmacy or drugstore pharmacy. 08/2019 Bowel Preparation Instructions for: Golytely, Nulytely, Trilyte or Colyte (polyethylene glycol 3350 and electrolytes) Three (3) Days Before Your Colonoscopy Do NOT eat high-fiber foods - such as popcorn, beans, seeds (flax, sunflower, quinoa), multigrain bread, nuts, salad/vegetables, or fresh and dried fruit. One (1) Day Before Your Colonoscopy Only drink clear liquids the ENTIRE DAY before your colonoscopy. Do NOT eat any solid foods. Drink at least 8 ounces of clear liquids every hour after waking up. The clear liquids you can drink include: Clear Liquid (NO RED LIQUIDS) DO NOT DRINK Gatorade, Pedialyte or Powerade Clear broth or bouillon Coffee or tea (no milk or non-dairy creamer) Carbonated and non-carbonated soft drinks Naun-Aid or other fruit flavored drinks Strained fruit juices (no pulp) Jell-O, popsicles, hard candy Water Alcohol Milk or non-dairy creamers Noodles or vegetables in soup Juice with pulp Liquid you cannot see through The bowel preparation solution will be consumed in two parts. Mix the solution the evening before your colonoscopy and refrigerate before drinking. You may add the flavor pack that came with the bowel preparation. Do NOT add ice, sugar or any other flavorings to the solution. Part 1 At 6:00 PM - Evening before your colonoscopy Drink an 8-oz glass of bowel preparation every 10 minutes for a total of 8 glasses. You may continue to drink clear liquids until midnight. Part 2 On the day of your colonoscopy you may drink clear liquids up to (three) 3 hours before your procedure. 4 1/2 hours before your colonoscopy Drink an 8-oz glass of bowel preparation every 10 minutes for a total of 8 glasses. Fifteen (15) minutes later, drink an 8-oz glass of clear liquids every 15 minutes for a total of 2 glasses. You may continue to drink clear liquids up to (three) 3 hours before your exam. 3 08/2019 documented in this encounter [facility] 12-15-2021 Nurse Note REVIEW OF SYSTEMS: General: The patient NOTES fatigue, denies weight loss, NOTES weight gain, NOTES feeling hot, and denies feelings of cold. Eyes: The patient denies glaucoma, denies eye injury/surgery, wears glasses or contacts. Ear/Nose/Throat: The patient NOTES allergies, denies hayfever, NOTES ear infections, and denies bloody noses. Cardiovascular: The patient NOTES chest pain, denies heart disease, NOTES high blood pressure,denies cardiac stent, denies prior heart attack, NOTES irregular heart beat, NOTES high cholesterol, denies poor circulation, NOTES heart failure, other cardiac issues, denies claudication, NOTES cold feet, denies peripheral arterial stent. Respiratory: The patient denies tuberculosis, NOTES pneumonia, denies frequent cough, denies pulmonary embolism, denies shortness of breath, and denies coughing up blood. Gastrointestinal: The patient denies difficulty swallowing, denies acid reflux, denies ulcers, denies vomiting, denies jaundice/hepatitis, denies gallbladder problems, denies black or tarry stools, denies hemorrhoids, denies bleeding from rectum, NOTES diverticulitis, NOTES constipation, NOTES diarrhea, NOTES loss of stool control, and denies hernias. Kidney/Bladder: The patient denies kidney stones, NOTES urine infections, and denies bloody urine. Skin: The patient denies a history of skin cancer, denies bleeding/changing moles, and denies a history of skin rash. Neurologic: The patient denies a history of epilepsy/convulsions, NOTES headaches, denies head/spinal injuries, and denies stroke/TIA. Psychiatric: The patient denies psychiatric medications, NOTES depression, and denies voices, denies substance abuse. Endocrine: The patient denies thyroid disorders, denies diabetes, and denies hormonal problems. Hematologic: The patient NOTES a history of bruising, NOTES bleeding, and denies anemia, NOTES blood clots. Infections: The patient NOTES a history of measles and mumps, denies rheumatic fever, and denies sexually transmitted diseases. Musculoskeletal: The patient NOTES back pain/injury, NOTES back problems, NOTES sciatica, NOTES knee/foot trouble, NOTES arthritis, or denies gout. When was patient's last Mammogram screening? 04/14/2021 Last Colonoscopy: 09/19/2019 Felisa Chance documented in this encounter [facility] documented as of this encounter (statuses as of 03/20/2022) [facility]01-04-2022 History of Past illness Narrative* Problem Noted Date Resolved Date Chronic hypoxemic respiratory failure 09/06/2021 03/20/2022 Hypoxia 06/13/2021 03/20/2022 Systemic infection 06/12/2018 07/24/2018 Intra-abdominal fluid collection 05/28/2018 06/03/2018 Last Assessment & Plan: Assessment: -loculated presacral fluid collection seen on CT 05/28/2018 PLAN: -drain placed -trend output Postoperative ileus 05/27/2018 06/03/2018 Last Assessment & Plan: Assessment: -NGT output decreased -passing BM PLAN: -remove NGT Pain managed using patient-controlled analgesia (SEROLOGIST) 05/22/2018 05/23/2018 Last Assessment & Plan: Assessment: -pain well controlled PLAN: -wean SEROLOGIST as able Post-operative state 05/21/2018 07/24/2018 Last Assessment & Plan: Assessment: -POD 10 Hartmanns reversal c/b post op ileus and intrabdominal fluid collection PLAN: -removed NGT -encourage ambulation -incentive spirometry Diverticulitis 05/20/2018 07/24/2018 Last Assessment & Plan: S/P Alfred's reversal. Minor emesis. Awaiting ROBF Colostomy present 12/17/2017 05/21/2018 Post-op pain 11/05/2017 03/27/2019 Last Assessment & Plan: Assessment: -well controlled PLAN: -continue multimodal pain regimen Hypokalemia 11/02/2017 11/05/2017 Patient has nasogastric tube 10/30/2017 PICC (peripherally inserted central catheter) in place 10/30/2017 11/05/2017 On total parenteral nutrition (TPN) 10/30/2017 11/05/[address] 10/30/2017 05/21/2018 Encounter for ostomy care education 10/30/2017 07/24/2018 Nausea 10/30/2017 11/05/2017 Encounter for nasogastric tube placement 018 11/05/2017 Hypocalcemia 10/25/2017 11/05/2017 Malnutrition of mild degree 10/25/201707/05 Last Assessment & Plan: Assessment: -per room attendants assessment PLAN: -discuss parenteral nutrition if prolonged NPO status Elevated serum creatinine 10/24/20172017 Hyponatremia 10/24/2017 10/25/2017 Abdominal distention 10/24/2017 11/05/2017 Superficial thrombophlebitis of both upper extre mities 10/24/2017 01/09/2018 Leukocytosis 10/22/2017 11/05/2017 Abdominal pain 10/22/2017 11/26/2017 Ileus 10/22/2017 11/05/2017 Diverticulitis 10/18/2017 04/29/2018 Iliotibial band syndrome, left leg 06/17/2017 07/24/2018 Cervicalgia 04/30/2014 04/29/2018 Lumbar radiculopathy 07/16/2013 07/04/2017 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 018 Piriformis syndrome of left side 01/23/2013 07/04/2017 Trochanteric bursitis of left hip 01/23/2013 01/09/2018 Dyspnea 09/10/2012 07/04/2017 Neurocirculatory asthenia 09/10/20122016 Chronic shoulder pain 03/07/2012 06/12/2018 Hemorrhage of gastrointestinal tract, unspecifie d 03/15/2009 07/13/2016 Other and unspecified noninf ectious gastroenteritis and colitis(558.9) 12/15/2008 07/13/2016 Excessive or frequent menstruation 09/01/2008 10/20/2008 Urethrocele(618.03) 07/17/2008 10/20/2008 Acute sinusitis, unspecified 07/15/2007 Headache(784.0) 07/12/2007 03/16/2016 Mild dysplasia of cervix 04/19/2007 016 Irregular menstrual cycle 04/19/20072008 Postcoital bleeding 04/19/2007 10/20/2008 Dyspareunia 04/19/2007 03/16/2016 Cystocele, midline 04/19/2007 10/20/2008 Female stress incontinence 04/19/200710/20 Urgency of urination 04/19/2007 03/16/2016 Mononeuritis 06/29/2006 01/09/2018 documented as of this encounter (statuses as of 03/20/2022) [facility] History of Past illness Narrative* Problem Noted Date Resolved Date Chronic hypoxemic respiratory failure 09/06/2021 03/20/2022 Hypoxia 06/13/2021 03/20/2022 Systemic infection 06/12/2018 07/24/2018 Intra-abdominal fluid collection 05/28/2018 06/03/2018 Last Assessment & Plan: Assessment: -loculated presacral fluid collection seen on CT 05/28/2018 PLAN: -drain placed -trend output Postoperative ileus 05/27/2018 06/03/2018 Last Assessment & Plan: Assessment: -NGT output decreased -passing BM PLAN: -remove NGT Pain managed using patient-controlled analgesia (SEROLOGIST) 05/22/2018 05/23/2018 Last Assessment & Plan: Assessment: -pain well controlled PLAN: -wean SEROLOGIST as able Post-operative state 05/21/2018 07/24/2018 Last Assessment & Plan: Assessment: -POD 10 Hartmanns reversal c/b post op ileus and intrabdominal fluid collection PLAN: -removed NGT -encourage ambulation -incentive spirometry Diverticulitis 05/20/2018 07/24/2018 Last Assessment & Plan: S/P Alfred's reversal. Minor emesis. Awaiting ROBF Colostomy present 12/17/2017 05/21/2018 Post-op pain 11/05/2017 03/27/2019 Last Assessment & Plan: Assessment: -well controlled PLAN: -continue multimodal pain regimen Hypokalemia 11/02/2017 11/05/2017 Patient has nasogastric tube 10/30/2017 PICC (peripherally inserted central catheter) in place 10/30/2017 11/05/2017 On total parenteral nutrition (TPN) 10/30/2017 11/05/[address] 10/30/2017 05/21/2018 Encounter for ostomy care education 10/30/2017 07/24/2018 Nausea 10/30/2017 11/05/2017 Encounter for nasogastric tube placement 018 11/05/2017 Hypocalcemia 10/25/2017 11/05/2017 Malnutrition of mild degree 10/25/201707/05 Last Assessment & Plan: Assessment: -per room attendants assessment PLAN: -discuss parenteral nutrition if prolonged NPO status Elevated serum creatinine 10/24/20172017 Hyponatremia 10/24/2017 10/25/2017 Abdominal distention 10/24/2017 11/05/2017 Superficial thrombophlebitis of both upper extre mities 10/24/2017 01/09/2018 Leukocytosis 10/22/2017 11/05/2017 Abdominal pain 10/22/2017 11/26/2017 Ileus 10/22/2017 11/05/2017 Diverticulitis 10/18/2017 04/29/2018 Iliotibial band syndrome, left leg 06/17/2017 07/24/2018 Cervicalgia 04/30/2014 04/29/2018 Lumbar radiculopathy 07/16/2013 07/04/2017 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 018 Piriformis syndrome of left side 01/23/2013 07/04/2017 Trochanteric bursitis of left hip 01/23/2013 01/09/2018 Dyspnea 09/10/2012 07/04/2017 Neurocirculatory asthenia 09/10/20122016 Chronic shoulder pain 03/07/2012 06/12/2018 Hemorrhage of gastrointestinal tract, unspecifie d 03/15/2009 07/13/2016 Other and unspecified noninf ectious gastroenteritis and colitis(558.9) 12/15/2008 07/13/2016 Excessive or frequent menstruation 09/01/2008 10/20/2008 Urethrocele(618.03) 07/17/2008 10/20/2008 Acute sinusitis, unspecified 07/15/2007 Headache(784.0) 07/12/2007 03/16/2016 Mild dysplasia of cervix 04/19/2007 016 Irregular menstrual cycle 04/19/20072008 Postcoital bleeding 04/19/2007 10/20/2008 Dyspareunia 04/19/2007 03/16/2016 Cystocele, midline 04/19/2007 10/20/2008 Female stress incontinence 04/19/200710/20 Urgency of urination 04/19/2007 03/16/2016 Mononeuritis 06/29/2006 01/09/2018 documented as of this encounter (statuses as of 03/24/2022) [facility] History of Past illness Narrative* Problem Noted Date Resolved Date Chronic hypoxemic respiratory failure 09/06/2021 03/20/2022 Hypoxia 06/13/2021 03/20/2022 Systemic infection 06/12/2018 07/24/2018 Intra-abdominal fluid collection 05/28/2018 06/03/2018 Last Assessment & Plan: Assessment: -loculated presacral fluid collection seen on CT 05/28/2018 PLAN: -drain placed -trend output Postoperative ileus 05/27/2018 06/03/2018 Last Assessment & Plan: Assessment: -NGT output decreased -passing BM PLAN: -remove NGT Pain managed using patient-controlled analgesia (SEROLOGIST) 05/22/2018 05/23/2018 Last Assessment & Plan: Assessment: -pain well controlled PLAN: -wean SEROLOGIST as able Post-operative state 05/21/2018 07/24/2018 Last Assessment & Plan: Assessment: -POD 10 Hartmanns reversal c/b post op ileus and intrabdominal fluid collection PLAN: -removed NGT -encourage ambulation -incentive spirometry Diverticulitis 05/20/2018 07/24/2018 Last Assessment & Plan: S/P Alfred's reversal. Minor emesis. Awaiting ROBF Colostomy present 12/17/2017 05/21/2018 Post-op pain 11/05/2017 03/27/2019 Last Assessment & Plan: Assessment: -well controlled PLAN: -continue multimodal pain regimen Hypokalemia 11/02/2017 11/05/2017 Patient has nasogastric tube 10/30/2017 PICC (peripherally inserted central catheter) in place 10/30/2017 11/05/2017 On total parenteral nutrition (TPN) 10/30/2017 11/05/[address] 10/30/2017 05/21/2018 Encounter for ostomy care education 10/30/2017 07/24/2018 Nausea 10/30/2017 11/05/2017 Encounter for nasogastric tube placement 018 11/05/2017 Hypocalcemia 10/25/2017 11/05/2017 Malnutrition of mild degree 10/25/201707/05 Last Assessment & Plan: Assessment: -per room attendants assessment PLAN: -discuss parenteral nutrition if prolonged NPO status Elevated serum creatinine 10/24/20172017 Hyponatremia 10/24/2017 10/25/2017 Abdominal distention 10/24/2017 11/05/2017 Superficial thrombophlebitis of both upper extre mities 10/24/2017 01/09/2018 Leukocytosis 10/22/2017 11/05/2017 Abdominal pain 10/22/2017 11/26/2017 Ileus 10/22/2017 11/05/2017 Diverticulitis 10/18/2017 04/29/2018 Iliotibial band syndrome, left leg 06/17/2017 07/24/2018 Cervicalgia 04/30/2014 04/29/2018 Lumbar radiculopathy 07/16/2013 07/04/2017 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 018 Piriformis syndrome of left side 01/23/2013 07/04/2017 Trochanteric bursitis of left hip 01/23/2013 01/09/2018 Dyspnea 09/10/2012 07/04/2017 Neurocirculatory asthenia 09/10/20122016 Chronic shoulder pain 03/07/2012 06/12/2018 Hemorrhage of gastrointestinal tract, unspecifie d 03/15/2009 07/13/2016 Other and unspecified noninf ectious gastroenteritis and colitis(558.9) 12/15/2008 07/13/2016 Excessive or frequent menstruation 09/01/2008 10/20/2008 Urethrocele(618.03) 07/17/2008 10/20/2008 Acute sinusitis, unspecified 07/15/2007 Headache(784.0) 07/12/2007 03/16/2016 Mild dysplasia of cervix 04/19/2007 016 Irregular menstrual cycle 04/19/20072008 Postcoital bleeding 04/19/2007 10/20/2008 Dyspareunia 04/19/2007 03/16/2016 Cystocele, midline 04/19/2007 10/20/2008 Female stress incontinence 04/19/200710/20 Urgency of urination 04/19/2007 03/16/2016 Mononeuritis 06/29/2006 01/09/2018 documented as of this encounter (statuses as of 03/29/2022) [facility] History of Past illness Narrative* Problem Noted Date Resolved Date Chronic hypoxemic respiratory failure 09/06/2021 03/20/2022 Hypoxia 06/13/2021 03/20/2022 Systemic infection 06/12/2018 07/24/2018 Intra-abdominal fluid collection 05/28/2018 06/03/2018 Last Assessment & Plan: Assessment: -loculated presacral fluid collection seen on CT 05/28/2018 PLAN: -drain placed -trend output Postoperative ileus 05/27/2018 06/03/2018 Last Assessment & Plan: Assessment: -NGT output decreased -passing BM PLAN: -remove NGT Pain managed using patient-controlled analgesia (SEROLOGIST) 05/22/2018 05/23/2018 Last Assessment & Plan: Assessment: -pain well controlled PLAN: -wean SEROLOGIST as able Post-operative state 05/21/2018 07/24/2018 Last Assessment & Plan: Assessment: -POD 10 Hartmanns reversal c/b post op ileus and intrabdominal fluid collection PLAN: -removed NGT -encourage ambulation -incentive spirometry Diverticulitis 05/20/2018 07/24/2018 Last Assessment & Plan: S/P Alfred's reversal. Minor emesis. Awaiting ROBF Colostomy present 12/17/2017 05/21/2018 Post-op pain 11/05/2017 03/27/2019 Last Assessment & Plan: Assessment: -well controlled PLAN: -continue multimodal pain regimen Hypokalemia 11/02/2017 11/05/2017 Patient has nasogastric tube 10/30/2017 PICC (peripherally inserted central catheter) in place 10/30/2017 11/05/2017 On total parenteral nutrition (TPN) 10/30/2017 11/05/[address] 10/30/2017 05/21/2018 Encounter for ostomy care education 10/30/2017 07/24/2018 Nausea 10/30/2017 11/05/2017 Encounter for nasogastric tube placement 018 11/05/2017 Hypocalcemia 10/25/2017 11/05/2017 Malnutrition of mild degree 10/25/201707/05 Last Assessment & Plan: Assessment: -per room attendants assessment PLAN: -discuss parenteral nutrition if prolonged NPO status Elevated serum creatinine 10/24/20172017 Hyponatremia 10/24/2017 10/25/2017 Abdominal distention 10/24/2017 11/05/2017 Superficial thrombophlebitis of both upper extre mities 10/24/2017 01/09/2018 Leukocytosis 10/22/2017 11/05/2017 Abdominal pain 10/22/2017 11/26/2017 Ileus 10/22/2017 11/05/2017 Diverticulitis 10/18/2017 04/29/2018 Iliotibial band syndrome, left leg 06/17/2017 07/24/2018 Cervicalgia 04/30/2014 04/29/2018 Lumbar radiculopathy 07/16/2013 07/04/2017 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 018 Piriformis syndrome of left side 01/23/2013 07/04/2017 Trochanteric bursitis of left hip 01/23/2013 01/09/2018 Dyspnea 09/10/2012 07/04/2017 Neurocirculatory asthenia 09/10/20122016 Chronic shoulder pain 03/07/2012 06/12/2018 Hemorrhage of gastrointestinal tract, unspecifie d 03/15/2009 07/13/2016 Other and unspecified noninf ectious gastroenteritis and colitis(558.9) 12/15/2008 07/13/2016 Excessive or frequent menstruation 09/01/2008 10/20/2008 Urethrocele(618.03) 07/17/2008 10/20/2008 Acute sinusitis, unspecified 07/15/2007 Headache(784.0) 07/12/2007 03/16/2016 Mild dysplasia of cervix 04/19/2007 016 Irregular menstrual cycle 04/19/20072008 Postcoital bleeding 04/19/2007 10/20/2008 Dyspareunia 04/19/2007 03/16/2016 Cystocele, midline 04/19/2007 10/20/2008 Female stress incontinence 04/19/200710/20 Urgency of urination 04/19/2007 03/16/2016 Mononeuritis 06/29/2006 01/09/2018 documented as of this encounter (statuses as of 03/29/2022) [facility] History of Past illness Narrative* Problem Noted Date Resolved Date Chronic hypoxemic respiratory failure 09/06/2021 03/20/2022 Hypoxia 06/13/2021 03/20/2022 Systemic infection 06/12/2018 07/24/2018 Intra-abdominal fluid collection 05/28/2018 06/03/2018 Last Assessment & Plan: Assessment: -loculated presacral fluid collection seen on CT 05/28/2018 PLAN: -drain placed -trend output Postoperative ileus 05/27/2018 06/03/2018 Last Assessment & Plan: Assessment: -NGT output decreased -passing BM PLAN: -remove NGT Pain managed using patient-controlled analgesia (SEROLOGIST) 05/22/2018 05/23/2018 Last Assessment & Plan: Assessment: -pain well controlled PLAN: -wean SEROLOGIST as able Post-operative state 05/21/2018 07/24/2018 Last Assessment & Plan: Assessment: -POD 10 Hartmanns reversal c/b post op ileus and intrabdominal fluid collection PLAN: -removed NGT -encourage ambulation -incentive spirometry Diverticulitis 05/20/2018 07/24/2018 Last Assessment & Plan: S/P Alfred's reversal. Minor emesis. Awaiting ROBF Colostomy present 12/17/2017 05/21/2018 Post-op pain 11/05/2017 03/27/2019 Last Assessment & Plan: Assessment: -well controlled PLAN: -continue multimodal pain regimen Hypokalemia 11/02/2017 11/05/2017 Patient has nasogastric tube 10/30/2017 PICC (peripherally inserted central catheter) in place 10/30/2017 11/05/2017 On total parenteral nutrition (TPN) 10/30/2017 11/05/[address] 10/30/2017 05/21/2018 Encounter for ostomy care education 10/30/2017 07/24/2018 Nausea 10/30/2017 11/05/2017 Encounter for nasogastric tube placement 018 11/05/2017 Hypocalcemia 10/25/2017 11/05/2017 Malnutrition of mild degree 10/25/201707/05 Last Assessment & Plan: Assessment: -per room attendants assessment PLAN: -discuss parenteral nutrition if prolonged NPO status Elevated serum creatinine 10/24/20172017 Hyponatremia 10/24/2017 10/25/2017 Abdominal distention 10/24/2017 11/05/2017 Superficial thrombophlebitis of both upper extre mities 10/24/2017 01/09/2018 Leukocytosis 10/22/2017 11/05/2017 Abdominal pain 10/22/2017 11/26/2017 Ileus 10/22/2017 11/05/2017 Diverticulitis 10/18/2017 04/29/2018 Iliotibial band syndrome, left leg 06/17/2017 07/24/2018 Cervicalgia 04/30/2014 04/29/2018 Lumbar radiculopathy 07/16/2013 07/04/2017 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 018 Piriformis syndrome of left side 01/23/2013 07/04/2017 Trochanteric bursitis of left hip 01/23/2013 01/09/2018 Dyspnea 09/10/2012 07/04/2017 Neurocirculatory asthenia 09/10/20122016 Chronic shoulder pain 03/07/2012 06/12/2018 Hemorrhage of gastrointestinal tract, unspecifie d 03/15/2009 07/13/2016 Other and unspecified noninf ectious gastroenteritis and colitis(558.9) 12/15/2008 07/13/2016 Excessive or frequent menstruation 09/01/2008 10/20/2008 Urethrocele(618.03) 07/17/2008 10/20/2008 Acute sinusitis, unspecified 07/15/2007 Headache(784.0) 07/12/2007 03/16/2016 Mild dysplasia of cervix 04/19/2007 016 Irregular menstrual cycle 04/19/20072008 Postcoital bleeding 04/19/2007 10/20/2008 Dyspareunia 04/19/2007 03/16/2016 Cystocele, midline 04/19/2007 10/20/2008 Female stress incontinence 04/19/200710/20 Urgency of urination 04/19/2007 03/16/2016 Mononeuritis 06/29/2006 01/09/2018 documented as of this encounter (statuses as of 04/07/2022) [facility] History of Past illness Narrative* Problem Noted Date Resolved Date Chronic hypoxemic respiratory failure 09/06/2021 03/20/2022 Hypoxia 06/13/2021 03/20/2022 Systemic infection 06/12/2018 07/24/2018 Intra-abdominal fluid collection 05/28/2018 06/03/2018 Last Assessment & Plan: Assessment: -loculated presacral fluid collection seen on CT 05/28/2018 PLAN: -drain placed -trend output Postoperative ileus 05/27/2018 06/03/2018 Last Assessment & Plan: Assessment: -NGT output decreased -passing BM PLAN: -remove NGT Pain managed using patient-controlled analgesia (SEROLOGIST) 05/22/2018 05/23/2018 Last Assessment & Plan: Assessment: -pain well controlled PLAN: -wean SEROLOGIST as able Post-operative state 05/21/2018 07/24/2018 Last Assessment & Plan: Assessment: -POD 10 Hartmanns reversal c/b post op ileus and intrabdominal fluid collection PLAN: -removed NGT -encourage ambulation -incentive spirometry Diverticulitis 05/20/2018 07/24/2018 Last Assessment & Plan: S/P Alfred's reversal. Minor emesis. Awaiting ROBF Colostomy present 12/17/2017 05/21/2018 Post-op pain 11/05/2017 03/27/2019 Last Assessment & Plan: Assessment: -well controlled PLAN: -continue multimodal pain regimen Hypokalemia 11/02/2017 11/05/2017 Patient has nasogastric tube 10/30/2017 PICC (peripherally inserted central catheter) in place 10/30/2017 11/05/2017 On total parenteral nutrition (TPN) 10/30/2017 11/05/[address] 10/30/2017 05/21/2018 Encounter for ostomy care education 10/30/2017 07/24/2018 Nausea 10/30/2017 11/05/2017 Encounter for nasogastric tube placement 018 11/05/2017 Hypocalcemia 10/25/2017 11/05/2017 Malnutrition of mild degree 10/25/201707/05 Last Assessment & Plan: Assessment: -per room attendants assessment PLAN: -discuss parenteral nutrition if prolonged NPO status Elevated serum creatinine 10/24/20172017 Hyponatremia 10/24/2017 10/25/2017 Abdominal distention 10/24/2017 11/05/2017 Superficial thrombophlebitis of both upper extre mities 10/24/2017 01/09/2018 Leukocytosis 10/22/2017 11/05/2017 Abdominal pain 10/22/2017 11/26/2017 Ileus 10/22/2017 11/05/2017 Diverticulitis 10/18/2017 04/29/2018 Iliotibial band syndrome, left leg 06/17/2017 07/24/2018 Cervicalgia 04/30/2014 04/29/2018 Lumbar radiculopathy 07/16/2013 07/04/2017 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 018 Piriformis syndrome of left side 01/23/2013 07/04/2017 Trochanteric bursitis of left hip 01/23/2013 01/09/2018 Dyspnea 09/10/2012 07/04/2017 Neurocirculatory asthenia 09/10/20122016 Chronic shoulder pain 03/07/2012 06/12/2018 Hemorrhage of gastrointestinal tract, unspecifie d 03/15/2009 07/13/2016 Other and unspecified noninf ectious gastroenteritis and colitis(558.9) 12/15/2008 07/13/2016 Excessive or frequent menstruation 09/01/2008 10/20/2008 Urethrocele(618.03) 07/17/2008 10/20/2008 Acute sinusitis, unspecified 07/15/2007 Headache(784.0) 07/12/2007 03/16/2016 Mild dysplasia of cervix 04/19/2007 016 Irregular menstrual cycle 04/19/20072008 Postcoital bleeding 04/19/2007 10/20/2008 Dyspareunia 04/19/2007 03/16/2016 Cystocele, midline 04/19/2007 10/20/2008 Female stress incontinence 04/19/200710/20 Urgency of urination 04/19/2007 03/16/2016 Mononeuritis 06/29/2006 01/09/2018 documented as of this encounter (statuses as of 04/14/2022) [facility] History of Past illness Narrative* Problem Noted Date Resolved Date Chronic hypoxemic respiratory failure 09/06/2021 03/20/2022 Hypoxia 06/13/2021 03/20/2022 Systemic infection 06/12/2018 07/24/2018 Intra-abdominal fluid collection 05/28/2018 06/03/2018 Last Assessment & Plan: Assessment: -loculated presacral fluid collection seen on CT 05/28/2018 PLAN: -drain placed -trend output Postoperative ileus 05/27/2018 06/03/2018 Last Assessment & Plan: Assessment: -NGT output decreased -passing BM PLAN: -remove NGT Pain managed using patient-controlled analgesia (SEROLOGIST) 05/22/2018 05/23/2018 Last Assessment & Plan: Assessment: -pain well controlled PLAN: -wean SEROLOGIST as able Post-operative state 05/21/2018 07/24/2018 Last Assessment & Plan: Assessment: -POD 10 Hartmanns reversal c/b post op ileus and intrabdominal fluid collection PLAN: -removed NGT -encourage ambulation -incentive spirometry Diverticulitis 05/20/2018 07/24/2018 Last Assessment & Plan: S/P Alfred's reversal. Minor emesis. Awaiting ROBF Colostomy present 12/17/2017 05/21/2018 Post-op pain 11/05/2017 03/27/2019 Last Assessment & Plan: Assessment: -well controlled PLAN: -continue multimodal pain regimen Hypokalemia 11/02/2017 11/05/2017 Patient has nasogastric tube 10/30/2017 PICC (peripherally inserted central catheter) in place 10/30/2017 11/05/2017 On total parenteral nutrition (TPN) 10/30/2017 11/05/[address] 10/30/2017 05/21/2018 Encounter for ostomy care education 10/30/2017 07/24/2018 Nausea 10/30/2017 11/05/2017 Encounter for nasogastric tube placement 018 11/05/2017 Hypocalcemia 10/25/2017 11/05/2017 Malnutrition of mild degree 10/25/201707/05 Last Assessment & Plan: Assessment: -per room attendants assessment PLAN: -discuss parenteral nutrition if prolonged NPO status Elevated serum creatinine 10/24/20172017 Hyponatremia 10/24/2017 10/25/2017 Abdominal distention 10/24/2017 11/05/2017 Superficial thrombophlebitis of both upper extre mities 10/24/2017 01/09/2018 Leukocytosis 10/22/2017 11/05/2017 Abdominal pain 10/22/2017 11/26/2017 Ileus 10/22/2017 11/05/2017 Diverticulitis 10/18/2017 04/29/2018 Iliotibial band syndrome, left leg 06/17/2017 07/24/2018 Cervicalgia 04/30/2014 04/29/2018 Lumbar radiculopathy 07/16/2013 07/04/2017 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 018 Piriformis syndrome of left side 01/23/2013 07/04/2017 Trochanteric bursitis of left hip 01/23/2013 01/09/2018 Dyspnea 09/10/2012 07/04/2017 Neurocirculatory asthenia 09/10/20122016 Chronic shoulder pain 03/07/2012 06/12/2018 Hemorrhage of gastrointestinal tract, unspecifie d 03/15/2009 07/13/2016 Other and unspecified noninf ectious gastroenteritis and colitis(558.9) 12/15/2008 07/13/2016 Excessive or frequent menstruation 09/01/2008 10/20/2008 Urethrocele(618.03) 07/17/2008 10/20/2008 Acute sinusitis, unspecified 07/15/2007 Headache(784.0) 07/12/2007 03/16/2016 Mild dysplasia of cervix 04/19/2007 016 Irregular menstrual cycle 04/19/20072008 Postcoital bleeding 04/19/2007 10/20/2008 Dyspareunia 04/19/2007 03/16/2016 Cystocele, midline 04/19/2007 10/20/2008 Female stress incontinence 04/19/200710/20 Urgency of urination 04/19/2007 03/16/2016 Mononeuritis 06/29/2006 01/09/2018 documented as of this encounter (statuses as of 04/25/2022) [facility] History of Past illness Narrative* Problem Noted Date Resolved Date Chronic hypoxemic respiratory failure 09/06/2021 03/20/2022 Hypoxia 06/13/2021 03/20/2022 Systemic infection 06/12/2018 07/24/2018 Intra-abdominal fluid collection 05/28/2018 06/03/2018 Last Assessment & Plan: Assessment: -loculated presacral fluid collection seen on CT 05/28/2018 PLAN: -drain placed -trend output Postoperative ileus 05/27/2018 06/03/2018 Last Assessment & Plan: Assessment: -NGT output decreased -passing BM PLAN: -remove NGT Pain managed using patient-controlled analgesia (SEROLOGIST) 05/22/2018 05/23/2018 Last Assessment & Plan: Assessment: -pain well controlled PLAN: -wean SEROLOGIST as able Post-operative state 05/21/2018 07/24/2018 Last Assessment & Plan: Assessment: -POD 10 Hartmanns reversal c/b post op ileus and intrabdominal fluid collection PLAN: -removed NGT -encourage ambulation -incentive spirometry Diverticulitis 05/20/2018 07/24/2018 Last Assessment & Plan: S/P Alfred's reversal. Minor emesis. Awaiting ROBF Colostomy present 12/17/2017 05/21/2018 Post-op pain 11/05/2017 03/27/2019 Last Assessment & Plan: Assessment: -well controlled PLAN: -continue multimodal pain regimen Hypokalemia 11/02/2017 11/05/2017 Patient has nasogastric tube 10/30/2017 PICC (peripherally inserted central catheter) in place 10/30/2017 11/05/2017 On total parenteral nutrition (TPN) 10/30/2017 11/05/[address] 10/30/2017 05/21/2018 Encounter for ostomy care education 10/30/2017 07/24/2018 Nausea 10/30/2017 11/05/2017 Encounter for nasogastric tube placement 018 11/05/2017 Hypocalcemia 10/25/2017 11/05/2017 Malnutrition of mild degree 10/25/201707/05 Last Assessment & Plan: Assessment: -per room attendants assessment PLAN: -discuss parenteral nutrition if prolonged NPO status Elevated serum creatinine 10/24/20172017 Hyponatremia 10/24/2017 10/25/2017 Abdominal distention 10/24/2017 11/05/2017 Superficial thrombophlebitis of both upper extre mities 10/24/2017 01/09/2018 Leukocytosis 10/22/2017 11/05/2017 Abdominal pain 10/22/2017 11/26/2017 Ileus 10/22/2017 11/05/2017 Diverticulitis 10/18/2017 04/29/2018 Iliotibial band syndrome, left leg 06/17/2017 07/24/2018 Cervicalgia 04/30/2014 04/29/2018 Lumbar radiculopathy 07/16/2013 07/04/2017 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 018 Piriformis syndrome of left side 01/23/2013 07/04/2017 Trochanteric bursitis of left hip 01/23/2013 01/09/2018 Dyspnea 09/10/2012 07/04/2017 Neurocirculatory asthenia 09/10/20122016 Chronic shoulder pain 03/07/2012 06/12/2018 Hemorrhage of gastrointestinal tract, unspecifie d 03/15/2009 07/13/2016 Other and unspecified noninf ectious gastroenteritis and colitis(558.9) 12/15/2008 07/13/2016 Excessive or frequent menstruation 09/01/2008 10/20/2008 Urethrocele(618.03) 07/17/2008 10/20/2008 Acute sinusitis, unspecified 07/15/2007 Headache(784.0) 07/12/2007 03/16/2016 Mild dysplasia of cervix 04/19/2007 016 Irregular menstrual cycle 04/19/20072008 Postcoital bleeding 04/19/2007 10/20/2008 Dyspareunia 04/19/2007 03/16/2016 Cystocele, midline 04/19/2007 10/20/2008 Female stress incontinence 04/19/200710/20 Urgency of urination 04/19/2007 03/16/2016 Mononeuritis 06/29/2006 01/09/2018 documented as of this encounter (statuses as of 04/28/2022) [facility]01-[facility] History of Past illness Narrative* Problem Noted Date Resolved Date Chronic hypoxemic respiratory failure 09/06/2021 03/20/2022 Hypoxia 06/13/2021 03/20/2022 Systemic infection 06/12/2018 07/24/2018 Intra-abdominal fluid collection 05/28/2018 06/03/2018 Last Assessment & Plan: Assessment: -loculated presacral fluid collection seen on CT 05/28/2018 PLAN: -drain placed -trend output Postoperative ileus 05/27/2018 06/03/2018 Last Assessment & Plan: Assessment: -NGT output decreased -passing BM PLAN: -remove NGT Pain managed using patient-controlled analgesia (SEROLOGIST) 05/22/2018 05/23/2018 Last Assessment & Plan: Assessment: -pain well controlled PLAN: -wean SEROLOGIST as able Post-operative state 05/21/2018 07/24/2018 Last Assessment & Plan: Assessment: -POD 10 Hartmanns reversal c/b post op ileus and intrabdominal fluid collection PLAN: -removed NGT -encourage ambulation -incentive spirometry Diverticulitis 05/20/2018 07/24/2018 Last Assessment & Plan: S/P Alfred's reversal. Minor emesis. Awaiting ROBF Colostomy present 12/17/2017 05/21/2018 Post-op pain 11/05/2017 03/27/2019 Last Assessment & Plan: Assessment: -well controlled PLAN: -continue multimodal pain regimen Hypokalemia 11/02/2017 11/05/2017 Patient has nasogastric tube 10/30/2017 PICC (peripherally inserted central catheter) in place 10/30/2017 11/05/2017 On total parenteral nutrition (TPN) 10/30/2017 11/05/[address] 10/30/2017 05/21/2018 Encounter for ostomy care education 10/30/2017 07/24/2018 Nausea 10/30/2017 11/05/2017 Encounter for nasogastric tube placement 018 11/05/2017 Hypocalcemia 10/25/2017 11/05/2017 Malnutrition of mild degree 10/25/201707/05 Last Assessment & Plan: Assessment: -per room attendants assessment PLAN: -discuss parenteral nutrition if prolonged NPO status Elevated serum creatinine 10/24/20172017 Hyponatremia 10/24/2017 10/25/2017 Abdominal distention 10/24/2017 11/05/2017 Superficial thrombophlebitis of both upper extre mities 10/24/2017 01/09/2018 Leukocytosis 10/22/2017 11/05/2017 Abdominal pain 10/22/2017 11/26/2017 Ileus 10/22/2017 11/05/2017 Diverticulitis 10/18/2017 04/29/2018 Iliotibial band syndrome, left leg 06/17/2017 07/24/2018 Cervicalgia 04/30/2014 04/29/2018 Lumbar radiculopathy 07/16/2013 07/04/2017 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 018 Piriformis syndrome of left side 01/23/2013 07/04/2017 Trochanteric bursitis of left hip 01/23/2013 01/09/2018 Dyspnea 09/10/2012 07/04/2017 Neurocirculatory asthenia 09/10/20122016 Chronic shoulder pain 03/07/2012 06/12/2018 Hemorrhage of gastrointestinal tract, unspecifie d 03/15/2009 07/13/2016 Other and unspecified noninf ectious gastroenteritis and colitis(558.9) 12/15/2008 07/13/2016 Excessive or frequent menstruation 09/01/2008 10/20/2008 Urethrocele(618.03) 07/17/2008 10/20/2008 Acute sinusitis, unspecified 07/15/2007 Headache(784.0) 07/12/2007 03/16/2016 Mild dysplasia of cervix 04/19/2007 016 Irregular menstrual cycle 04/19/20072008 Postcoital bleeding 04/19/2007 10/20/2008 Dyspareunia 04/19/2007 03/16/2016 Cystocele, midline 04/19/2007 10/20/2008 Female stress incontinence 04/19/200710/20 Urgency of urination 04/19/2007 03/16/2016 Mononeuritis 06/29/2006 01/09/2018 documented as of this encounter (statuses as of 2022) [facility]01-[facility] History of Past illness Narrative* Problem Noted Date Resolved Date Chronic hypoxemic respiratory failure 09/06/2021 03/20/2022 Hypoxia 06/13/2021 03/20/2022 Systemic infection 06/12/2018 07/24/2018 Intra-abdominal fluid collection 05/28/2018 06/03/2018 Last Assessment & Plan: Assessment: -loculated presacral fluid collection seen on CT 05/28/2018 PLAN: -drain placed -trend output Postoperative ileus 05/27/2018 06/03/2018 Last Assessment & Plan: Assessment: -NGT output decreased -passing BM PLAN: -remove NGT Pain managed using patient-controlled analgesia (SEROLOGIST) 05/22/2018 05/23/2018 Last Assessment & Plan: Assessment: -pain well controlled PLAN: -wean SEROLOGIST as able Post-operative state 05/21/2018 07/24/2018 Last Assessment & Plan: Assessment: -POD 10 Hartmanns reversal c/b post op ileus and intrabdominal fluid collection PLAN: -removed NGT -encourage ambulation -incentive spirometry Diverticulitis 05/20/2018 07/24/2018 Last Assessment & Plan: S/P Alfred's reversal. Minor emesis. Awaiting ROBF Colostomy present 12/17/2017 05/21/2018 Post-op pain 11/05/2017 03/27/2019 Last Assessment & Plan: Assessment: -well controlled PLAN: -continue multimodal pain regimen Hypokalemia 11/02/2017 11/05/2017 Patient has nasogastric tube 10/30/2017 PICC (peripherally inserted central catheter) in place 10/30/2017 11/05/2017 On total parenteral nutrition (TPN) 10/30/2017 11/05/[address] 10/30/2017 05/21/2018 Encounter for ostomy care education 10/30/2017 07/24/2018 Nausea 10/30/2017 11/05/2017 Encounter for nasogastric tube placement 018 11/05/2017 Hypocalcemia 10/25/2017 11/05/2017 Malnutrition of mild degree 10/25/201707/05 Last Assessment & Plan: Assessment: -per room attendants assessment PLAN: -discuss parenteral nutrition if prolonged NPO status Elevated serum creatinine 10/24/20172017 Hyponatremia 10/24/2017 10/25/2017 Abdominal distention 10/24/2017 11/05/2017 Superficial thrombophlebitis of both upper extre mities 10/24/2017 01/09/2018 Leukocytosis 10/22/2017 11/05/2017 Abdominal pain 10/22/2017 11/26/2017 Ileus 10/22/2017 11/05/2017 Diverticulitis 10/18/2017 04/29/2018 Iliotibial band syndrome, left leg 06/17/2017 07/24/2018 Cervicalgia 04/30/2014 04/29/2018 Lumbar radiculopathy 07/16/2013 07/04/2017 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 018 Piriformis syndrome of left side 01/23/2013 07/04/2017 Trochanteric bursitis of left hip 01/23/2013 01/09/2018 Dyspnea 09/10/2012 07/04/2017 Neurocirculatory asthenia 09/10/20122016 Chronic shoulder pain 03/07/2012 06/12/2018 Hemorrhage of gastrointestinal tract, unspecifie d 03/15/2009 07/13/2016 Other and unspecified noninf ectious gastroenteritis and colitis(558.9) 12/15/2008 07/13/2016 Excessive or frequent menstruation 09/01/2008 10/20/2008 Urethrocele(618.03) 07/17/2008 10/20/2008 Acute sinusitis, unspecified 07/15/2007 Headache(784.0) 07/12/2007 03/16/2016 Mild dysplasia of cervix 04/19/2007 016 Irregular menstrual cycle 04/19/20072008 Postcoital bleeding 04/19/2007 10/20/2008 Dyspareunia 04/19/2007 03/16/2016 Cystocele, midline 04/19/2007 10/20/2008 Female stress incontinence 04/19/200710/20 Urgency of urination 04/19/2007 03/16/2016 Mononeuritis 06/29/2006 01/09/2018 documented as of this encounter (statuses as of 05/06/2022) [facility]01[facility] History of Past illness Narrative* Problem Noted Date Resolved Date Chronic hypoxemic respiratory failure 09/06/2021 03/20/2022 Hypoxia 06/13/2021 03/20/2022 Systemic infection 06/12/2018 07/24/2018 Intra-abdominal fluid collection 05/28/2018 06/03/2018 Last Assessment & Plan: Assessment: -loculated presacral fluid collection seen on CT 05/28/2018 PLAN: -drain placed -trend output Postoperative ileus 05/27/2018 06/03/2018 Last Assessment & Plan: Assessment: -NGT output decreased -passing BM PLAN: -remove NGT Pain managed using patient-controlled analgesia (SEROLOGIST) 05/22/2018 05/23/2018 Last Assessment & Plan: Assessment: -pain well controlled PLAN: -wean SEROLOGIST as able Post-operative state 05/21/2018 07/24/2018 Last Assessment & Plan: Assessment: -POD 10 Hartmanns reversal c/b post op ileus and intrabdominal fluid collection PLAN: -removed NGT -encourage ambulation -incentive spirometry Diverticulitis 05/20/2018 07/24/2018 Last Assessment & Plan: S/P Alfred's reversal. Minor emesis. Awaiting ROBF Colostomy present 12/17/2017 05/21/2018 Post-op pain 11/05/2017 03/27/2019 Last Assessment & Plan: Assessment: -well controlled PLAN: -continue multimodal pain regimen Hypokalemia 11/02/2017 11/05/2017 Patient has nasogastric tube 10/30/2017 PICC (peripherally inserted central catheter) in place 10/30/2017 11/05/2017 On total parenteral nutrition (TPN) 10/30/2017 11/05/[address] 10/30/2017 05/21/2018 Encounter for ostomy care education 10/30/2017 07/24/2018 Nausea 10/30/2017 11/05/2017 Encounter for nasogastric tube placement 018 11/05/2017 Hypocalcemia 10/25/2017 11/05/2017 Malnutrition of mild degree 10/25/201707/05 Last Assessment & Plan: Assessment: -per room attendants assessment PLAN: -discuss parenteral nutrition if prolonged NPO status Elevated serum creatinine 10/24/20172017 Hyponatremia 10/24/2017 10/25/2017 Abdominal distention 10/24/2017 11/05/2017 Superficial thrombophlebitis of both upper extre mities 10/24/2017 01/09/2018 Leukocytosis 10/22/2017 11/05/2017 Abdominal pain 10/22/2017 11/26/2017 Ileus 10/22/2017 11/05/2017 Diverticulitis 10/18/2017 04/29/2018 Iliotibial band syndrome, left leg 06/17/2017 07/24/2018 Cervicalgia 04/30/2014 04/29/2018 Lumbar radiculopathy 07/16/2013 07/04/2017 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 018 Piriformis syndrome of left side 01/23/2013 07/04/2017 Trochanteric bursitis of left hip 01/23/2013 01/09/2018 Dyspnea 09/10/2012 07/04/2017 Neurocirculatory asthenia 09/10/20122016 Chronic shoulder pain 03/07/2012 06/12/2018 Hemorrhage of gastrointestinal tract, unspecifie d 03/15/2009 07/13/2016 Other and unspecified noninf ectious gastroenteritis and colitis(558.9) 12/15/2008 07/13/2016 Excessive or frequent menstruation 09/01/2008 10/20/2008 Urethrocele(618.03) 07/17/2008 10/20/2008 Acute sinusitis, unspecified 07/15/2007 Headache(784.0) 07/12/2007 03/16/2016 Mild dysplasia of cervix 04/19/2007 016 Irregular menstrual cycle 04/19/20072008 Postcoital bleeding 04/19/2007 10/20/2008 Dyspareunia 04/19/2007 03/16/2016 Cystocele, midline 04/19/2007 10/20/2008 Female stress incontinence 04/19/200710/20 Urgency of urination 04/19/2007 03/16/2016 Mononeuritis 06/29/2006 01/09/2018 documented as of this encounter (statuses as of 05/16/2022) [facility]01[facility] History of Past illness Narrative* Problem Noted Date Resolved Date Chronic hypoxemic respiratory failure 09/06/2021 03/20/2022 Hypoxia 06/13/2021 03/20/2022 Systemic infection 06/12/2018 07/24/2018 Intra-abdominal fluid collection 05/28/2018 06/03/2018 Last Assessment & Plan: Assessment: -loculated presacral fluid collection seen on CT 05/28/2018 PLAN: -drain placed -trend output Postoperative ileus 05/27/2018 06/03/2018 Last Assessment & Plan: Assessment: -NGT output decreased -passing BM PLAN: -remove NGT Pain managed using patient-controlled analgesia (SEROLOGIST) 05/22/2018 05/23/2018 Last Assessment & Plan: Assessment: -pain well controlled PLAN: -wean SEROLOGIST as able Post-operative state 05/21/2018 07/24/2018 Last Assessment & Plan: Assessment: -POD 10 Hartmanns reversal c/b post op ileus and intrabdominal fluid collection PLAN: -removed NGT -encourage ambulation -incentive spirometry Diverticulitis 05/20/2018 07/24/2018 Last Assessment & Plan: S/P Alfred's reversal. Minor emesis. Awaiting ROBF Colostomy present 12/17/2017 05/21/2018 Post-op pain 11/05/2017 03/27/2019 Last Assessment & Plan: Assessment: -well controlled PLAN: -continue multimodal pain regimen Hypokalemia 11/02/2017 11/05/2017 Patient has nasogastric tube 10/30/2017 PICC (peripherally inserted central catheter) in place 10/30/2017 11/05/2017 On total parenteral nutrition (TPN) 10/30/2017 11/05/[address] 10/30/2017 05/21/2018 Encounter for ostomy care education 10/30/2017 07/24/2018 Nausea 10/30/2017 11/05/2017 Encounter for nasogastric tube placement 018 11/05/2017 Hypocalcemia 10/25/2017 11/05/2017 Malnutrition of mild degree 10/25/201707/05 Last Assessment & Plan: Assessment: -per room attendants assessment PLAN: -discuss parenteral nutrition if prolonged NPO status Elevated serum creatinine 10/24/20172017 Hyponatremia 10/24/2017 10/25/2017 Abdominal distention 10/24/2017 11/05/2017 Superficial thrombophlebitis of both upper extre mities 10/24/2017 01/09/2018 Leukocytosis 10/22/2017 11/05/2017 Abdominal pain 10/22/2017 11/26/2017 Ileus 10/22/2017 11/05/2017 Diverticulitis 10/18/2017 04/29/2018 Iliotibial band syndrome, left leg 06/17/2017 07/24/2018 Cervicalgia 04/30/2014 04/29/2018 Lumbar radiculopathy 07/16/2013 07/04/2017 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 018 Piriformis syndrome of left side 01/23/2013 07/04/2017 Trochanteric bursitis of left hip 01/23/2013 01/09/2018 Dyspnea 09/10/2012 07/04/2017 Neurocirculatory asthenia 09/10/20122016 Chronic shoulder pain 03/07/2012 06/12/2018 Hemorrhage of gastrointestinal tract, unspecifie d 03/15/2009 07/13/2016 Other and unspecified noninf ectious gastroenteritis and colitis(558.9) 12/15/2008 07/13/2016 Excessive or frequent menstruation 09/01/2008 10/20/2008 Urethrocele(618.03) 07/17/2008 10/20/2008 Acute sinusitis, unspecified 07/15/2007 Headache(784.0) 07/12/2007 03/16/2016 Mild dysplasia of cervix 04/19/2007 016 Irregular menstrual cycle 04/19/20072008 Postcoital bleeding 04/19/2007 10/20/2008 Dyspareunia 04/19/2007 03/16/2016 Cystocele, midline 04/19/2007 10/20/2008 Female stress incontinence 04/19/200710/20 Urgency of urination 04/19/2007 03/16/2016 Mononeuritis 06/29/2006 01/09/2018 documented as of this encounter (statuses as of 05/17/2022) [facility] History of Past illness Narrative* Problem Noted Date Resolved Date Chronic hypoxemic respiratory failure 09/06/2021 03/20/2022 Hypoxia 06/13/2021 03/20/2022 Systemic infection 06/12/2018 07/24/2018 Intra-abdominal fluid collection 05/28/2018 06/03/2018 Last Assessment & Plan: Assessment: -loculated presacral fluid collection seen on CT 05/28/2018 PLAN: -drain placed -trend output Postoperative ileus 05/27/2018 06/03/2018 Last Assessment & Plan: Assessment: -NGT output decreased -passing BM PLAN: -remove NGT Pain managed using patient-controlled analgesia (SEROLOGIST) 05/22/2018 05/23/2018 Last Assessment & Plan: Assessment: -pain well controlled PLAN: -wean SEROLOGIST as able Post-operative state 05/21/2018 07/24/2018 Last Assessment & Plan: Assessment: -POD 10 Hartmanns reversal c/b post op ileus and intrabdominal fluid collection PLAN: -removed NGT -encourage ambulation -incentive spirometry Diverticulitis 05/20/2018 07/24/2018 Last Assessment & Plan: S/P Alfred's reversal. Minor emesis. Awaiting ROBF Colostomy present 12/17/2017 05/21/2018 Post-op pain 11/05/2017 03/27/2019 Last Assessment & Plan: Assessment: -well controlled PLAN: -continue multimodal pain regimen Hypokalemia 11/02/2017 11/05/2017 Patient has nasogastric tube 10/30/2017 PICC (peripherally inserted central catheter) in place 10/30/2017 11/05/2017 On total parenteral nutrition (TPN) 10/30/2017 11/05/[address] 10/30/2017 05/21/2018 Encounter for ostomy care education 10/30/2017 07/24/2018 Nausea 10/30/2017 11/05/2017 Encounter for nasogastric tube placement 018 11/05/2017 Hypocalcemia 10/25/2017 11/05/2017 Malnutrition of mild degree 10/25/201707/05 Last Assessment & Plan: Assessment: -per room attendants assessment PLAN: -discuss parenteral nutrition if prolonged NPO status Elevated serum creatinine 10/24/20172017 Hyponatremia 10/24/2017 10/25/2017 Abdominal distention 10/24/2017 11/05/2017 Superficial thrombophlebitis of both upper extre mities 10/24/2017 01/09/2018 Leukocytosis 10/22/2017 11/05/2017 Abdominal pain 10/22/2017 11/26/2017 Ileus 10/22/2017 11/05/2017 Diverticulitis 10/18/2017 04/29/2018 Iliotibial band syndrome, left leg 06/17/2017 07/24/2018 Cervicalgia 04/30/2014 04/29/2018 Lumbar radiculopathy 07/16/2013 07/04/2017 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 018 Piriformis syndrome of left side 01/23/2013 07/04/2017 Trochanteric bursitis of left hip 01/23/2013 01/09/2018 Dyspnea 09/10/2012 07/04/2017 Neurocirculatory asthenia 09/10/20122016 Chronic shoulder pain 03/07/2012 06/12/2018 Hemorrhage of gastrointestinal tract, unspecifie d 03/15/2009 07/13/2016 Other and unspecified noninf ectious gastroenteritis and colitis(558.9) 12/15/2008 07/13/2016 Excessive or frequent menstruation 09/01/2008 10/20/2008 Urethrocele(618.03) 07/17/2008 10/20/2008 Acute sinusitis, unspecified 07/15/2007 Headache(784.0) 07/12/2007 03/16/2016 Mild dysplasia of cervix 04/19/2007 016 Irregular menstrual cycle 04/19/20072008 Postcoital bleeding 04/19/2007 10/20/2008 Dyspareunia 04/19/2007 03/16/2016 Cystocele, midline 04/19/2007 10/20/2008 Female stress incontinence 04/19/200710/20 Urgency of urination 04/19/2007 03/16/2016 Mononeuritis 06/29/2006 01/09/2018 documented as of this encounter (statuses as of 05/23/2022) [facility] History of Past illness Narrative* Problem Noted Date Resolved Date Chronic hypoxemic respiratory failure 09/06/2021 03/20/2022 Hypoxia 06/13/2021 03/20/2022 Systemic infection 06/12/2018 07/24/2018 Intra-abdominal fluid collection 05/28/2018 06/03/2018 Last Assessment & Plan: Assessment: -loculated presacral fluid collection seen on CT 05/28/2018 PLAN: -drain placed -trend output Postoperative ileus 05/27/2018 06/03/2018 Last Assessment & Plan: Assessment: -NGT output decreased -passing BM PLAN: -remove NGT Pain managed using patient-controlled analgesia (SEROLOGIST) 05/22/2018 05/23/2018 Last Assessment & Plan: Assessment: -pain well controlled PLAN: -wean SEROLOGIST as able Post-operative state 05/21/2018 07/24/2018 Last Assessment & Plan: Assessment: -POD 10 Hartmanns reversal c/b post op ileus and intrabdominal fluid collection PLAN: -removed NGT -encourage ambulation -incentive spirometry Diverticulitis 05/20/2018 07/24/2018 Last Assessment & Plan: S/P Alfred's reversal. Minor emesis. Awaiting ROBF Colostomy present 12/17/2017 05/21/2018 Post-op pain 11/05/2017 03/27/2019 Last Assessment & Plan: Assessment: -well controlled PLAN: -continue multimodal pain regimen Hypokalemia 11/02/2017 11/05/2017 Patient has nasogastric tube 10/30/2017 PICC (peripherally inserted central catheter) in place 10/30/2017 11/05/2017 On total parenteral nutrition (TPN) 10/30/2017 11/05/[address] 10/30/2017 05/21/2018 Encounter for ostomy care education 10/30/2017 07/24/2018 Nausea 10/30/2017 11/05/2017 Encounter for nasogastric tube placement 018 11/05/2017 Hypocalcemia 10/25/2017 11/05/2017 Malnutrition of mild degree 10/25/201707/05 Last Assessment & Plan: Assessment: -per room attendants assessment PLAN: -discuss parenteral nutrition if prolonged NPO status Elevated serum creatinine 10/24/20172017 Hyponatremia 10/24/2017 10/25/2017 Abdominal distention 10/24/2017 11/05/2017 Superficial thrombophlebitis of both upper extre mities 10/24/2017 01/09/2018 Leukocytosis 10/22/2017 11/05/2017 Abdominal pain 10/22/2017 11/26/2017 Ileus 10/22/2017 11/05/2017 Diverticulitis 10/18/2017 04/29/2018 Iliotibial band syndrome, left leg 06/17/2017 07/24/2018 Cervicalgia 04/30/2014 04/29/2018 Lumbar radiculopathy 07/16/2013 07/04/2017 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 018 Piriformis syndrome of left side 01/23/2013 07/04/2017 Trochanteric bursitis of left hip 01/23/2013 01/09/2018 Dyspnea 09/10/2012 07/04/2017 Neurocirculatory asthenia 09/10/20122016 Chronic shoulder pain 03/07/2012 06/12/2018 Hemorrhage of gastrointestinal tract, unspecifie d 03/15/2009 07/13/2016 Other and unspecified noninf ectious gastroenteritis and colitis(558.9) 12/15/2008 07/13/2016 Excessive or frequent menstruation 09/01/2008 10/20/2008 Urethrocele(618.03) 07/17/2008 10/20/2008 Acute sinusitis, unspecified 07/15/2007 Headache(784.0) 07/12/2007 03/16/2016 Mild dysplasia of cervix 04/19/2007 016 Irregular menstrual cycle 04/19/20072008 Postcoital bleeding 04/19/2007 10/20/2008 Dyspareunia 04/19/2007 03/16/2016 Cystocele, midline 04/19/2007 10/20/2008 Female stress incontinence 04/19/200710/20 Urgency of urination 04/19/2007 03/16/2016 Mononeuritis 06/29/2006 01/09/2018 documented as of this encounter (statuses as of 06/01/2022) [facility] History of Past illness Narrative* Problem Noted Date Resolved Date Chronic hypoxemic respiratory failure 09/06/2021 03/20/2022 Hypoxia 06/13/2021 03/20/2022 Systemic infection 06/12/2018 07/24/2018 Intra-abdominal fluid collection 05/28/2018 06/03/2018 Last Assessment & Plan: Assessment: -loculated presacral fluid collection seen on CT 05/28/2018 PLAN: -drain placed -trend output Postoperative ileus 05/27/2018 06/03/2018 Last Assessment & Plan: Assessment: -NGT output decreased -passing BM PLAN: -remove NGT Pain managed using patient-controlled analgesia (SEROLOGIST) 05/22/2018 05/23/2018 Last Assessment & Plan: Assessment: -pain well controlled PLAN: -wean SEROLOGIST as able Post-operative state 05/21/2018 07/24/2018 Last Assessment & Plan: Assessment: -POD 10 Hartmanns reversal c/b post op ileus and intrabdominal fluid collection PLAN: -removed NGT -encourage ambulation -incentive spirometry Diverticulitis 05/20/2018 07/24/2018 Last Assessment & Plan: S/P Alfred's reversal. Minor emesis. Awaiting ROBF Colostomy present 12/17/2017 05/21/2018 Post-op pain 11/05/2017 03/27/2019 Last Assessment & Plan: Assessment: -well controlled PLAN: -continue multimodal pain regimen Hypokalemia 11/02/2017 11/05/2017 Patient has nasogastric tube 10/30/2017 PICC (peripherally inserted central catheter) in place 10/30/2017 11/05/2017 On total parenteral nutrition (TPN) 10/30/2017 11/05/[address] 10/30/2017 05/21/2018 Encounter for ostomy care education 10/30/2017 07/24/2018 Nausea 10/30/2017 11/05/2017 Encounter for nasogastric tube placement 018 11/05/2017 Hypocalcemia 10/25/2017 11/05/2017 Malnutrition of mild degree 10/25/201707/05 Last Assessment & Plan: Assessment: -per room attendants assessment PLAN: -discuss parenteral nutrition if prolonged NPO status Elevated serum creatinine 10/24/20172017 Hyponatremia 10/24/2017 10/25/2017 Abdominal distention 10/24/2017 11/05/2017 Superficial thrombophlebitis of both upper extre mities 10/24/2017 01/09/2018 Leukocytosis 10/22/2017 11/05/2017 Abdominal pain 10/22/2017 11/26/2017 Ileus 10/22/2017 11/05/2017 Diverticulitis 10/18/2017 04/29/2018 Iliotibial band syndrome, left leg 06/17/2017 07/24/2018 Cervicalgia 04/30/2014 04/29/2018 Lumbar radiculopathy 07/16/2013 07/04/2017 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 018 Piriformis syndrome of left side 01/23/2013 07/04/2017 Trochanteric bursitis of left hip 01/23/2013 01/09/2018 Dyspnea 09/10/2012 07/04/2017 Neurocirculatory asthenia 09/10/20122016 Chronic shoulder pain 03/07/2012 06/12/2018 Hemorrhage of gastrointestinal tract, unspecifie d 03/15/2009 07/13/2016 Other and unspecified noninf ectious gastroenteritis and colitis(558.9) 12/15/2008 07/13/2016 Excessive or frequent menstruation 09/01/2008 10/20/2008 Urethrocele(618.03) 07/17/2008 10/20/2008 Acute sinusitis, unspecified 07/15/2007 Headache(784.0) 07/12/2007 03/16/2016 Mild dysplasia of cervix 04/19/2007 016 Irregular menstrual cycle 04/19/20072008 Postcoital bleeding 04/19/2007 10/20/2008 Dyspareunia 04/19/2007 03/16/2016 Cystocele, midline 04/19/2007 10/20/2008 Female stress incontinence 04/19/200710/20 Urgency of urination 04/19/2007 03/16/2016 Mononeuritis 06/29/2006 01/09/2018 documented as of this encounter (statuses as of 07/24/2022) [facility]01[facility] History of Past illness Narrative* Problem Noted Date Resolved Date Chronic hypoxemic respiratory failure 09/06/2021 03/20/2022 Hypoxia 06/13/2021 03/20/2022 Systemic infection 06/12/2018 07/24/2018 Intra-abdominal fluid collection 05/28/2018 06/03/2018 Last Assessment & Plan: Assessment: -loculated presacral fluid collection seen on CT 05/28/2018 PLAN: -drain placed -trend output Postoperative ileus 05/27/2018 06/03/2018 Last Assessment & Plan: Assessment: -NGT output decreased -passing BM PLAN: -remove NGT Pain managed using patient-controlled analgesia (SEROLOGIST) 05/22/2018 05/23/2018 Last Assessment & Plan: Assessment: -pain well controlled PLAN: -wean SEROLOGIST as able Post-operative state 05/21/2018 07/24/2018 Last Assessment & Plan: Assessment: -POD 10 Hartmanns reversal c/b post op ileus and intrabdominal fluid collection PLAN: -removed NGT -encourage ambulation -incentive spirometry Diverticulitis 05/20/2018 07/24/2018 Last Assessment & Plan: S/P Alfred's reversal. Minor emesis. Awaiting ROBF Colostomy present 12/17/2017 05/21/2018 Post-op pain 11/05/2017 03/27/2019 Last Assessment & Plan: Assessment: -well controlled PLAN: -continue multimodal pain regimen Hypokalemia 11/02/2017 11/05/2017 Patient has nasogastric tube 10/30/2017 PICC (peripherally inserted central catheter) in place 10/30/2017 11/05/2017 On total parenteral nutrition (TPN) 10/30/2017 11/05/[address] 10/30/2017 05/21/2018 Encounter for ostomy care education 10/30/2017 07/24/2018 Nausea 10/30/2017 11/05/2017 Encounter for nasogastric tube placement 018 11/05/2017 Hypocalcemia 10/25/2017 11/05/2017 Malnutrition of mild degree 10/25/201707/05 Last Assessment & Plan: Assessment: -per room attendants assessment PLAN: -discuss parenteral nutrition if prolonged NPO status Elevated serum creatinine 10/24/20172017 Hyponatremia 10/24/2017 10/25/2017 Abdominal distention 10/24/2017 11/05/2017 Superficial thrombophlebitis of both upper extre mities 10/24/2017 01/09/2018 Leukocytosis 10/22/2017 11/05/2017 Abdominal pain 10/22/2017 11/26/2017 Ileus 10/22/2017 11/05/2017 Diverticulitis 10/18/2017 04/29/2018 Iliotibial band syndrome, left leg 06/17/2017 07/24/2018 Cervicalgia 04/30/2014 04/29/2018 Lumbar radiculopathy 07/16/2013 07/04/2017 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 018 Piriformis syndrome of left side 01/23/2013 07/04/2017 Trochanteric bursitis of left hip 01/23/2013 01/09/2018 Dyspnea 09/10/2012 07/04/2017 Neurocirculatory asthenia 09/10/20122016 Chronic shoulder pain 03/07/2012 06/12/2018 Hemorrhage of gastrointestinal tract, unspecifie d 03/15/2009 07/13/2016 Other and unspecified noninf ectious gastroenteritis and colitis(558.9) 12/15/2008 07/13/2016 Excessive or frequent menstruation 09/01/2008 10/20/2008 Urethrocele(618.03) 07/17/2008 10/20/2008 Acute sinusitis, unspecified 07/15/2007 Headache(784.0) 07/12/2007 03/16/2016 Mild dysplasia of cervix 04/19/2007 016 Irregular menstrual cycle 04/19/20072008 Postcoital bleeding 04/19/2007 10/20/2008 Dyspareunia 04/19/2007 03/16/2016 Cystocele, midline 04/19/2007 10/20/2008 Female stress incontinence 04/19/200710/20 Urgency of urination 04/19/2007 03/16/2016 Mononeuritis 06/29/2006 01/09/2018 documented as of this encounter (statuses as of 07/26/2022) [facility]01-[facility] History of Past illness Narrative* Problem Noted Date Resolved Date Chronic hypoxemic respiratory failure 09/06/2021 03/20/2022 Hypoxia 06/13/2021 03/20/2022 Systemic infection 06/12/2018 07/24/2018 Intra-abdominal fluid collection 05/28/2018 06/03/2018 Last Assessment & Plan: Assessment: -loculated presacral fluid collection seen on CT 05/28/2018 PLAN: -drain placed -trend output Postoperative ileus 05/27/2018 06/03/2018 Last Assessment & Plan: Assessment: -NGT output decreased -passing BM PLAN: -remove NGT Pain managed using patient-controlled analgesia (SEROLOGIST) 05/22/2018 05/23/2018 Last Assessment & Plan: Assessment: -pain well controlled PLAN: -wean SEROLOGIST as able Post-operative state 05/21/2018 07/24/2018 Last Assessment & Plan: Assessment: -POD 10 Hartmanns reversal c/b post op ileus and intrabdominal fluid collection PLAN: -removed NGT -encourage ambulation -incentive spirometry Diverticulitis 05/20/2018 07/24/2018 Last Assessment & Plan: S/P Alfred's reversal. Minor emesis. Awaiting ROBF Colostomy present 12/17/2017 05/21/2018 Post-op pain 11/05/2017 03/27/2019 Last Assessment & Plan: Assessment: -well controlled PLAN: -continue multimodal pain regimen Hypokalemia 11/02/2017 11/05/2017 Patient has nasogastric tube 10/30/2017 PICC (peripherally inserted central catheter) in place 10/30/2017 11/05/2017 On total parenteral nutrition (TPN) 10/30/2017 11/05/[address] 10/30/2017 05/21/2018 Encounter for ostomy care education 10/30/2017 07/24/2018 Nausea 10/30/2017 11/05/2017 Encounter for nasogastric tube placement 018 11/05/2017 Hypocalcemia 10/25/2017 11/05/2017 Malnutrition of mild degree 10/25/201707/05 Last Assessment & Plan: Assessment: -per room attendants assessment PLAN: -discuss parenteral nutrition if prolonged NPO status Elevated serum creatinine 10/24/20172017 Hyponatremia 10/24/2017 10/25/2017 Abdominal distention 10/24/2017 11/05/2017 Superficial thrombophlebitis of both upper extre mities 10/24/2017 01/09/2018 Leukocytosis 10/22/2017 11/05/2017 Abdominal pain 10/22/2017 11/26/2017 Ileus 10/22/2017 11/05/2017 Diverticulitis 10/18/2017 04/29/2018 Iliotibial band syndrome, left leg 06/17/2017 07/24/2018 Cervicalgia 04/30/2014 04/29/2018 Lumbar radiculopathy 07/16/2013 07/04/2017 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 018 Piriformis syndrome of left side 01/23/2013 07/04/2017 Trochanteric bursitis of left hip 01/23/2013 01/09/2018 Dyspnea 09/10/2012 07/04/2017 Neurocirculatory asthenia 09/10/20122016 Chronic shoulder pain 03/07/2012 06/12/2018 Hemorrhage of gastrointestinal tract, unspecifie d 03/15/2009 07/13/2016 Other and unspecified noninf ectious gastroenteritis and colitis(558.9) 12/15/2008 07/13/2016 Excessive or frequent menstruation 09/01/2008 10/20/2008 Urethrocele(618.03) 07/17/2008 10/20/2008 Acute sinusitis, unspecified 07/15/2007 Headache(784.0) 07/12/2007 03/16/2016 Mild dysplasia of cervix 04/19/2007 016 Irregular menstrual cycle 04/19/20072008 Postcoital bleeding 04/19/2007 10/20/2008 Dyspareunia 04/19/2007 03/16/2016 Cystocele, midline 04/19/2007 10/20/2008 Female stress incontinence 04/19/200710/20 Urgency of urination 04/19/2007 03/16/2016 Mononeuritis 06/29/2006 01/09/2018 documented as of this encounter (statuses as of 08/14/2022) [facility]01-[facility] History of Past illness Narrative* Problem Noted Date Resolved Date Chronic hypoxemic respiratory failure 09/06/2021 03/20/2022 Hypoxia 06/13/2021 03/20/2022 Systemic infection 06/12/2018 07/24/2018 Intra-abdominal fluid collection 05/28/2018 06/03/2018 Last Assessment & Plan: Assessment: -loculated presacral fluid collection seen on CT 05/28/2018 PLAN: -drain placed -trend output Postoperative ileus 05/27/2018 06/03/2018 Last Assessment & Plan: Assessment: -NGT output decreased -passing BM PLAN: -remove NGT Pain managed using patient-controlled analgesia (SEROLOGIST) 05/22/2018 05/23/2018 Last Assessment & Plan: Assessment: -pain well controlled PLAN: -wean SEROLOGIST as able Post-operative state 05/21/2018 07/24/2018 Last Assessment & Plan: Assessment: -POD 10 Hartmanns reversal c/b post op ileus and intrabdominal fluid collection PLAN: -removed NGT -encourage ambulation -incentive spirometry Diverticulitis 05/20/2018 07/24/2018 Last Assessment & Plan: S/P Alfred's reversal. Minor emesis. Awaiting ROBF Colostomy present 12/17/2017 05/21/2018 Post-op pain 11/05/2017 03/27/2019 Last Assessment & Plan: Assessment: -well controlled PLAN: -continue multimodal pain regimen Hypokalemia 11/02/2017 11/05/2017 Patient has nasogastric tube 10/30/2017 PICC (peripherally inserted central catheter) in place 10/30/2017 11/05/2017 On total parenteral nutrition (TPN) 10/30/2017 11/05/[address] 10/30/2017 05/21/2018 Encounter for ostomy care education 10/30/2017 07/24/2018 Nausea 10/30/2017 11/05/2017 Encounter for nasogastric tube placement 018 11/05/2017 Hypocalcemia 10/25/2017 11/05/2017 Malnutrition of mild degree 10/25/201707/05 Last Assessment & Plan: Assessment: -per room attendants assessment PLAN: -discuss parenteral nutrition if prolonged NPO status Elevated serum creatinine 10/24/20172017 Hyponatremia 10/24/2017 10/25/2017 Abdominal distention 10/24/2017 11/05/2017 Superficial thrombophlebitis of both upper extre mities 10/24/2017 01/09/2018 Leukocytosis 10/22/2017 11/05/2017 Abdominal pain 10/22/2017 11/26/2017 Ileus 10/22/2017 11/05/2017 Diverticulitis 10/18/2017 04/29/2018 Iliotibial band syndrome, left leg 06/17/2017 07/24/2018 Cervicalgia 04/30/2014 04/29/2018 Lumbar radiculopathy 07/16/2013 07/04/2017 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 018 Piriformis syndrome of left side 01/23/2013 07/04/2017 Trochanteric bursitis of left hip 01/23/2013 01/09/2018 Dyspnea 09/10/2012 07/04/2017 Neurocirculatory asthenia 09/10/20122016 Chronic shoulder pain 03/07/2012 06/12/2018 Hemorrhage of gastrointestinal tract, unspecifie d 03/15/2009 07/13/2016 Other and unspecified noninf ectious gastroenteritis and colitis(558.9) 12/15/2008 07/13/2016 Excessive or frequent menstruation 09/01/2008 10/20/2008 Urethrocele(618.03) 07/17/2008 10/20/2008 Acute sinusitis, unspecified 07/15/2007 Headache(784.0) 07/12/2007 03/16/2016 Mild dysplasia of cervix 04/19/2007 016 Irregular menstrual cycle 04/19/20072008 Postcoital bleeding 04/19/2007 10/20/2008 Dyspareunia 04/19/2007 03/16/2016 Cystocele, midline 04/19/2007 10/20/2008 Female stress incontinence 04/19/200710/20 Urgency of urination 04/19/2007 03/16/2016 Mononeuritis 06/29/2006 01/09/2018 documented as of this encounter (statuses as of 08/19/2022) [facility]01[facility] History of Past illness Narrative* Problem Noted Date Resolved Date Chronic hypoxemic respiratory failure 09/06/2021 03/20/2022 Hypoxia 06/13/2021 03/20/2022 Systemic infection 06/12/2018 07/24/2018 Intra-abdominal fluid collection 05/28/2018 06/03/2018 Last Assessment & Plan: Assessment: -loculated presacral fluid collection seen on CT 05/28/2018 PLAN: -drain placed -trend output Postoperative ileus 05/27/2018 06/03/2018 Last Assessment & Plan: Assessment: -NGT output decreased -passing BM PLAN: -remove NGT Pain managed using patient-controlled analgesia (SEROLOGIST) 05/22/2018 05/23/2018 Last Assessment & Plan: Assessment: -pain well controlled PLAN: -wean SEROLOGIST as able Post-operative state 05/21/2018 07/24/2018 Last Assessment & Plan: Assessment: -POD 10 Hartmanns reversal c/b post op ileus and intrabdominal fluid collection PLAN: -removed NGT -encourage ambulation -incentive spirometry Diverticulitis 05/20/2018 07/24/2018 Last Assessment & Plan: S/P Alfred's reversal. Minor emesis. Awaiting ROBF Colostomy present 12/17/2017 05/21/2018 Post-op pain 11/05/2017 03/27/2019 Last Assessment & Plan: Assessment: -well controlled PLAN: -continue multimodal pain regimen Hypokalemia 11/02/2017 11/05/2017 Patient has nasogastric tube 10/30/2017 PICC (peripherally inserted central catheter) in place 10/30/2017 11/05/2017 On total parenteral nutrition (TPN) 10/30/2017 11/05/[address] 10/30/2017 05/21/2018 Encounter for ostomy care education 10/30/2017 07/24/2018 Nausea 10/30/2017 11/05/2017 Encounter for nasogastric tube placement 018 11/05/2017 Hypocalcemia 10/25/2017 11/05/2017 Malnutrition of mild degree 10/25/201707/05 Last Assessment & Plan: Assessment: -per room attendants assessment PLAN: -discuss parenteral nutrition if prolonged NPO status Elevated serum creatinine 10/24/20172017 Hyponatremia 10/24/2017 10/25/2017 Abdominal distention 10/24/2017 11/05/2017 Superficial thrombophlebitis of both upper extre mities 10/24/2017 01/09/2018 Leukocytosis 10/22/2017 11/05/2017 Abdominal pain 10/22/2017 11/26/2017 Ileus 10/22/2017 11/05/2017 Diverticulitis 10/18/2017 04/29/2018 Iliotibial band syndrome, left leg 06/17/2017 07/24/2018 Cervicalgia 04/30/2014 04/29/2018 Lumbar radiculopathy 07/16/2013 07/04/2017 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 018 Piriformis syndrome of left side 01/23/2013 07/04/2017 Trochanteric bursitis of left hip 01/23/2013 01/09/2018 Dyspnea 09/10/2012 07/04/2017 Neurocirculatory asthenia 09/10/20122016 Chronic shoulder pain 03/07/2012 06/12/2018 Hemorrhage of gastrointestinal tract, unspecifie d 03/15/2009 07/13/2016 Other and unspecified noninf ectious gastroenteritis and colitis(558.9) 12/15/2008 07/13/2016 Excessive or frequent menstruation 09/01/2008 10/20/2008 Urethrocele(618.03) 07/17/2008 10/20/2008 Acute sinusitis, unspecified 07/15/2007 Headache(784.0) 07/12/2007 03/16/2016 Mild dysplasia of cervix 04/19/2007 016 Irregular menstrual cycle 04/19/20072008 Postcoital bleeding 04/19/2007 10/20/2008 Dyspareunia 04/19/2007 03/16/2016 Cystocele, midline 04/19/2007 10/20/2008 Female stress incontinence 04/19/200710/20 Urgency of urination 04/19/2007 03/16/2016 Mononeuritis 06/29/2006 01/09/2018 documented as of this encounter (statuses as of 08/21/2022) [facility]01[facility] History of Past illness Narrative* Problem Noted Date Resolved Date Chronic hypoxemic respiratory failure 09/06/2021 03/20/2022 Hypoxia 06/13/2021 03/20/2022 Systemic infection 06/12/2018 07/24/2018 Intra-abdominal fluid collection 05/28/2018 06/03/2018 Last Assessment & Plan: Assessment: -loculated presacral fluid collection seen on CT 05/28/2018 PLAN: -drain placed -trend output Postoperative ileus 05/27/2018 06/03/2018 Last Assessment & Plan: Assessment: -NGT output decreased -passing BM PLAN: -remove NGT Pain managed using patient-controlled analgesia (SEROLOGIST) 05/22/2018 05/23/2018 Last Assessment & Plan: Assessment: -pain well controlled PLAN: -wean SEROLOGIST as able Post-operative state 05/21/2018 07/24/2018 Last Assessment & Plan: Assessment: -POD 10 Hartmanns reversal c/b post op ileus and intrabdominal fluid collection PLAN: -removed NGT -encourage ambulation -incentive spirometry Diverticulitis 05/20/2018 07/24/2018 Last Assessment & Plan: S/P Alfred's reversal. Minor emesis. Awaiting ROBF Colostomy present 12/17/2017 05/21/2018 Post-op pain 11/05/2017 03/27/2019 Last Assessment & Plan: Assessment: -well controlled PLAN: -continue multimodal pain regimen Hypokalemia 11/02/2017 11/05/2017 Patient has nasogastric tube 10/30/2017 PICC (peripherally inserted central catheter) in place 10/30/2017 11/05/2017 On total parenteral nutrition (TPN) 10/30/2017 11/05/[address] 10/30/2017 05/21/2018 Encounter for ostomy care education 10/30/2017 07/24/2018 Nausea 10/30/2017 11/05/2017 Encounter for nasogastric tube placement 018 11/05/2017 Hypocalcemia 10/25/2017 11/05/2017 Malnutrition of mild degree 10/25/201707/05 Last Assessment & Plan: Assessment: -per room attendants assessment PLAN: -discuss parenteral nutrition if prolonged NPO status Elevated serum creatinine 10/24/20172017 Hyponatremia 10/24/2017 10/25/2017 Abdominal distention 10/24/2017 11/05/2017 Superficial thrombophlebitis of both upper extre mities 10/24/2017 01/09/2018 Leukocytosis 10/22/2017 11/05/2017 Abdominal pain 10/22/2017 11/26/2017 Ileus 10/22/2017 11/05/2017 Diverticulitis 10/18/2017 04/29/2018 Iliotibial band syndrome, left leg 06/17/2017 07/24/2018 Cervicalgia 04/30/2014 04/29/2018 Lumbar radiculopathy 07/16/2013 07/04/2017 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 018 Piriformis syndrome of left side 01/23/2013 07/04/2017 Trochanteric bursitis of left hip 01/23/2013 01/09/2018 Dyspnea 09/10/2012 07/04/2017 Neurocirculatory asthenia 09/10/20122016 Chronic shoulder pain 03/07/2012 06/12/2018 Hemorrhage of gastrointestinal tract, unspecifie d 03/15/2009 07/13/2016 Other and unspecified noninf ectious gastroenteritis and colitis(558.9) 12/15/2008 07/13/2016 Excessive or frequent menstruation 09/01/2008 10/20/2008 Urethrocele(618.03) 07/17/2008 10/20/2008 Acute sinusitis, unspecified 07/15/2007 Headache(784.0) 07/12/2007 03/16/2016 Mild dysplasia of cervix 04/19/2007 016 Irregular menstrual cycle 04/19/20072008 Postcoital bleeding 04/19/2007 10/20/2008 Dyspareunia 04/19/2007 03/16/2016 Cystocele, midline 04/19/2007 10/20/2008 Female stress incontinence 04/19/200710/20 Urgency of urination 04/19/2007 03/16/2016 Mononeuritis 06/29/2006 01/09/2018 documented as of this encounter (statuses as of 08/21/2022) [facility] History of Past illness Narrative* Problem Noted Date Resolved Date Chronic hypoxemic respiratory failure 09/06/2021 03/20/2022 Hypoxia 06/13/2021 03/20/2022 Systemic infection 06/12/2018 07/24/2018 Intra-abdominal fluid collection 05/28/2018 06/03/2018 Last Assessment & Plan: Assessment: -loculated presacral fluid collection seen on CT 05/28/2018 PLAN: -drain placed -trend output Postoperative ileus 05/27/2018 06/03/2018 Last Assessment & Plan: Assessment: -NGT output decreased -passing BM PLAN: -remove NGT Pain managed using patient-controlled analgesia (SEROLOGIST) 05/22/2018 05/23/2018 Last Assessment & Plan: Assessment: -pain well controlled PLAN: -wean SEROLOGIST as able Post-operative state 05/21/2018 07/24/2018 Last Assessment & Plan: Assessment: -POD 10 Hartmanns reversal c/b post op ileus and intrabdominal fluid collection PLAN: -removed NGT -encourage ambulation -incentive spirometry Diverticulitis 05/20/2018 07/24/2018 Last Assessment & Plan: S/P Alfred's reversal. Minor emesis. Awaiting ROBF Colostomy present 12/17/2017 05/21/2018 Post-op pain 11/05/2017 03/27/2019 Last Assessment & Plan: Assessment: -well controlled PLAN: -continue multimodal pain regimen Hypokalemia 11/02/2017 11/05/2017 Patient has nasogastric tube 10/30/2017 PICC (peripherally inserted central catheter) in place 10/30/2017 11/05/2017 On total parenteral nutrition (TPN) 10/30/2017 11/05/[address] 10/30/2017 05/21/2018 Encounter for ostomy care education 10/30/2017 07/24/2018 Nausea 10/30/2017 11/05/2017 Encounter for nasogastric tube placement 018 11/05/2017 Hypocalcemia 10/25/2017 11/05/2017 Malnutrition of mild degree 10/25/201707/05 Last Assessment & Plan: Assessment: -per room attendants assessment PLAN: -discuss parenteral nutrition if prolonged NPO status Elevated serum creatinine 10/24/20172017 Hyponatremia 10/24/2017 10/25/2017 Abdominal distention 10/24/2017 11/05/2017 Superficial thrombophlebitis of both upper extre mities 10/24/2017 01/09/2018 Leukocytosis 10/22/2017 11/05/2017 Abdominal pain 10/22/2017 11/26/2017 Ileus 10/22/2017 11/05/2017 Diverticulitis 10/18/2017 04/29/2018 Iliotibial band syndrome, left leg 06/17/2017 07/24/2018 Cervicalgia 04/30/2014 04/29/2018 Lumbar radiculopathy 07/16/2013 07/04/2017 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 018 Piriformis syndrome of left side 01/23/2013 07/04/2017 Trochanteric bursitis of left hip 01/23/2013 01/09/2018 Dyspnea 09/10/2012 07/04/2017 Neurocirculatory asthenia 09/10/20122016 Chronic shoulder pain 03/07/2012 06/12/2018 Hemorrhage of gastrointestinal tract, unspecifie d 03/15/2009 07/13/2016 Other and unspecified noninf ectious gastroenteritis and colitis(558.9) 12/15/2008 07/13/2016 Excessive or frequent menstruation 09/01/2008 10/20/2008 Urethrocele(618.03) 07/17/2008 10/20/2008 Acute sinusitis, unspecified 07/15/2007 Headache(784.0) 07/12/2007 03/16/2016 Mild dysplasia of cervix 04/19/2007 016 Irregular menstrual cycle 04/19/20072008 Postcoital bleeding 04/19/2007 10/20/2008 Dyspareunia 04/19/2007 03/16/2016 Cystocele, midline 04/19/2007 10/20/2008 Female stress incontinence 04/19/200710/20 Urgency of urination 04/19/2007 03/16/2016 Mononeuritis 06/29/2006 01/09/2018 documented as of this encounter (statuses as of 09/07/2022) [facility] History of Past illness Narrative* Problem Noted Date Resolved Date Chronic hypoxemic respiratory failure 09/06/2021 03/20/2022 Hypoxia 06/13/2021 03/20/2022 Systemic infection 06/12/2018 07/24/2018 Intra-abdominal fluid collection 05/28/2018 06/03/2018 Last Assessment & Plan: Assessment: -loculated presacral fluid collection seen on CT 05/28/2018 PLAN: -drain placed -trend output Postoperative ileus 05/27/2018 06/03/2018 Last Assessment & Plan: Assessment: -NGT output decreased -passing BM PLAN: -remove NGT Pain managed using patient-controlled analgesia (SEROLOGIST) 05/22/2018 05/23/2018 Last Assessment & Plan: Assessment: -pain well controlled PLAN: -wean SEROLOGIST as able Post-operative state 05/21/2018 07/24/2018 Last Assessment & Plan: Assessment: -POD 10 Hartmanns reversal c/b post op ileus and intrabdominal fluid collection PLAN: -removed NGT -encourage ambulation -incentive spirometry Diverticulitis 05/20/2018 07/24/2018 Last Assessment & Plan: S/P Alfred's reversal. Minor emesis. Awaiting ROBF Colostomy present 12/17/2017 05/21/2018 Post-op pain 11/05/2017 03/27/2019 Last Assessment & Plan: Assessment: -well controlled PLAN: -continue multimodal pain regimen Hypokalemia 11/02/2017 11/05/2017 Patient has nasogastric tube 10/30/2017 PICC (peripherally inserted central catheter) in place 10/30/2017 11/05/2017 On total parenteral nutrition (TPN) 10/30/2017 11/05/[address] 10/30/2017 05/21/2018 Encounter for ostomy care education 10/30/2017 07/24/2018 Nausea 10/30/2017 11/05/2017 Encounter for nasogastric tube placement 018 11/05/2017 Hypocalcemia 10/25/2017 11/05/2017 Malnutrition of mild degree 10/25/201707/05 Last Assessment & Plan: Assessment: -per room attendants assessment PLAN: -discuss parenteral nutrition if prolonged NPO status Elevated serum creatinine 10/24/20172017 Hyponatremia 10/24/2017 10/25/2017 Abdominal distention 10/24/2017 11/05/2017 Superficial thrombophlebitis of both upper extre mities 10/24/2017 01/09/2018 Leukocytosis 10/22/2017 11/05/2017 Abdominal pain 10/22/2017 11/26/2017 Ileus 10/22/2017 11/05/2017 Diverticulitis 10/18/2017 04/29/2018 Iliotibial band syndrome, left leg 06/17/2017 07/24/2018 Cervicalgia 04/30/2014 04/29/2018 Lumbar radiculopathy 07/16/2013 07/04/2017 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 018 Piriformis syndrome of left side 01/23/2013 07/04/2017 Trochanteric bursitis of left hip 01/23/2013 01/09/2018 Dyspnea 09/10/2012 07/04/2017 Neurocirculatory asthenia 09/10/20122016 Chronic shoulder pain 03/07/2012 06/12/2018 Hemorrhage of gastrointestinal tract, unspecifie d 03/15/2009 07/13/2016 Other and unspecified noninf ectious gastroenteritis and colitis(558.9) 12/15/2008 07/13/2016 Excessive or frequent menstruation 09/01/2008 10/20/2008 Urethrocele(618.03) 07/17/2008 10/20/2008 Acute sinusitis, unspecified 07/15/2007 Headache(784.0) 07/12/2007 03/16/2016 Mild dysplasia of cervix 04/19/2007 016 Irregular menstrual cycle 04/19/20072008 Postcoital bleeding 04/19/2007 10/20/2008 Dyspareunia 04/19/2007 03/16/2016 Cystocele, midline 04/19/2007 10/20/2008 Female stress incontinence 04/19/200710/20 Urgency of urination 04/19/2007 03/16/2016 Mononeuritis 06/29/2006 01/09/2018 documented as of this encounter (statuses as of 10/09/2022) [facility]01-04-[facility]22 History of Past illness Narrative* Problem Noted Date Resolved Date Chronic hypoxemic respiratory failure 09/06/2021 03/20/2022 Hypoxia 06/13/2021 03/20/2022 Systemic infection 06/12/2018 07/24/2018 Intra-abdominal fluid collection 05/28/2018 06/03/2018 Last Assessment & Plan: Assessment: -loculated presacral fluid collection seen on CT 05/28/2018 PLAN: -drain placed -trend output Postoperative ileus 05/27/2018 06/03/2018 Last Assessment & Plan: Assessment: -NGT output decreased -passing BM PLAN: -remove NGT Pain managed using patient-controlled analgesia (SEROLOGIST) 05/22/2018 05/23/2018 Last Assessment & Plan: Assessment: -pain well controlled PLAN: -wean SEROLOGIST as able Post-operative state 05/21/2018 07/24/2018 Last Assessment & Plan: Assessment: -POD 10 Hartmanns reversal c/b post op ileus and intrabdominal fluid collection PLAN: -removed NGT -encourage ambulation -incentive spirometry Diverticulitis 05/20/2018 07/24/2018 Last Assessment & Plan: S/P Alfred's reversal. Minor emesis. Awaiting ROBF Colostomy present 12/17/2017 05/21/2018 Post-op pain 11/05/2017 03/27/2019 Last Assessment & Plan: Assessment: -well controlled PLAN: -continue multimodal pain regimen Hypokalemia 11/02/2017 11/05/2017 Patient has nasogastric tube 10/30/2017 PICC (peripherally inserted central catheter) in place 10/30/2017 11/05/2017 On total parenteral nutrition (TPN) 10/30/2017 11/05/[address] 10/30/2017 05/21/2018 Encounter for ostomy care education 10/30/2017 07/24/2018 Nausea 10/30/2017 11/05/2017 Encounter for nasogastric tube placement 018 11/05/2017 Hypocalcemia 10/25/2017 11/05/2017 Malnutrition of mild degree 10/25/201707/05 Last Assessment & Plan: Assessment: -per room attendants assessment PLAN: -discuss parenteral nutrition if prolonged NPO status Elevated serum creatinine 10/24/20172017 Hyponatremia 10/24/2017 10/25/2017 Abdominal distention 10/24/2017 11/05/2017 Superficial thrombophlebitis of both upper extre mities 10/24/2017 01/09/2018 Leukocytosis 10/22/2017 11/05/2017 Abdominal pain 10/22/2017 11/26/2017 Ileus 10/22/2017 11/05/2017 Diverticulitis 10/18/2017 04/29/2018 Iliotibial band syndrome, left leg 06/17/2017 07/24/2018 Cervicalgia 04/30/2014 04/29/2018 Lumbar radiculopathy 07/16/2013 07/04/2017 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 018 Piriformis syndrome of left side 01/23/2013 07/04/2017 Trochanteric bursitis of left hip 01/23/2013 01/09/2018 Dyspnea 09/10/2012 07/04/2017 Neurocirculatory asthenia 09/10/20122016 Chronic shoulder pain 03/07/2012 06/12/2018 Hemorrhage of gastrointestinal tract, unspecifie d 03/15/2009 07/13/2016 Other and unspecified noninf ectious gastroenteritis and colitis(558.9) 12/15/2008 07/13/2016 Excessive or frequent menstruation 09/01/2008 10/20/2008 Urethrocele(618.03) 07/17/2008 10/20/2008 Acute sinusitis, unspecified 07/15/2007 Headache(784.0) 07/12/2007 03/16/2016 Mild dysplasia of cervix 04/19/2007 016 Irregular menstrual cycle 04/19/20072008 Postcoital bleeding 04/19/2007 10/20/2008 Dyspareunia 04/19/2007 03/16/2016 Cystocele, midline 04/19/2007 10/20/2008 Female stress incontinence 04/19/200710/20 Urgency of urination 04/19/2007 03/16/2016 Mononeuritis 06/29/2006 01/09/2018 documented as of this encounter (statuses as of 10/18/2022) [facility]01-[facility] History of Past illness Narrative* Problem Noted Date Resolved Date Chronic hypoxemic respiratory failure 09/06/2021 03/20/2022 Hypoxia 06/13/2021 03/20/2022 Systemic infection 06/12/2018 07/24/2018 Intra-abdominal fluid collection 05/28/2018 06/03/2018 Last Assessment & Plan: Assessment: -loculated presacral fluid collection seen on CT 05/28/2018 PLAN: -drain placed -trend output Postoperative ileus 05/27/2018 06/03/2018 Last Assessment & Plan: Assessment: -NGT output decreased -passing BM PLAN: -remove NGT Pain managed using patient-controlled analgesia (SEROLOGIST) 05/22/2018 05/23/2018 Last Assessment & Plan: Assessment: -pain well controlled PLAN: -wean SEROLOGIST as able Post-operative state 05/21/2018 07/24/2018 Last Assessment & Plan: Assessment: -POD 10 Hartmanns reversal c/b post op ileus and intrabdominal fluid collection PLAN: -removed NGT -encourage ambulation -incentive spirometry Diverticulitis 05/20/2018 07/24/2018 Last Assessment & Plan: S/P Alfred's reversal. Minor emesis. Awaiting ROBF Colostomy present 12/17/2017 05/21/2018 Post-op pain 11/05/2017 03/27/2019 Last Assessment & Plan: Assessment: -well controlled PLAN: -continue multimodal pain regimen Hypokalemia 11/02/2017 11/05/2017 Patient has nasogastric tube 10/30/2017 PICC (peripherally inserted central catheter) in place 10/30/2017 11/05/2017 On total parenteral nutrition (TPN) 10/30/2017 11/05/[address] 10/30/2017 05/21/2018 Encounter for ostomy care education 10/30/2017 07/24/2018 Nausea 10/30/2017 11/05/2017 Encounter for nasogastric tube placement 018 11/05/2017 Hypocalcemia 10/25/2017 11/05/2017 Malnutrition of mild degree 10/25/201707/05 Last Assessment & Plan: Assessment: -per room attendants assessment PLAN: -discuss parenteral nutrition if prolonged NPO status Elevated serum creatinine 10/24/20172017 Hyponatremia 10/24/2017 10/25/2017 Abdominal distention 10/24/2017 11/05/2017 Superficial thrombophlebitis of both upper extre mities 10/24/2017 01/09/2018 Leukocytosis 10/22/2017 11/05/2017 Abdominal pain 10/22/2017 11/26/2017 Ileus 10/22/2017 11/05/2017 Diverticulitis 10/18/2017 04/29/2018 Iliotibial band syndrome, left leg 06/17/2017 07/24/2018 Cervicalgia 04/30/2014 04/29/2018 Lumbar radiculopathy 07/16/2013 07/04/2017 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 018 Piriformis syndrome of left side 01/23/2013 07/04/2017 Trochanteric bursitis of left hip 01/23/2013 01/09/2018 Dyspnea 09/10/2012 07/04/2017 Neurocirculatory asthenia 09/10/20122016 Chronic shoulder pain 03/07/2012 06/12/2018 Hemorrhage of gastrointestinal tract, unspecifie d 03/15/2009 07/13/2016 Other and unspecified noninf ectious gastroenteritis and colitis(558.9) 12/15/2008 07/13/2016 Excessive or frequent menstruation 09/01/2008 10/20/2008 Urethrocele(618.03) 07/17/2008 10/20/2008 Acute sinusitis, unspecified 07/15/2007 Headache(784.0) 07/12/2007 03/16/2016 Mild dysplasia of cervix 04/19/2007 016 Irregular menstrual cycle 04/19/20072008 Postcoital bleeding 04/19/2007 10/20/2008 Dyspareunia 04/19/2007 03/16/2016 Cystocele, midline 04/19/2007 10/20/2008 Female stress incontinence 04/19/200710/20 Urgency of urination 04/19/2007 03/16/2016 Mononeuritis 06/29/2006 01/09/2018 documented as of this encounter (statuses as of 10/18/2022) [facility]01-[facility] History of Past illness Narrative* Problem Noted Date Resolved Date Chronic hypoxemic respiratory failure 09/06/2021 03/20/2022 Hypoxia 06/13/2021 03/20/2022 Systemic infection 06/12/2018 07/24/2018 Intra-abdominal fluid collection 05/28/2018 06/03/2018 Last Assessment & Plan: Assessment: -loculated presacral fluid collection seen on CT 05/28/2018 PLAN: -drain placed -trend output Postoperative ileus 05/27/2018 06/03/2018 Last Assessment & Plan: Assessment: -NGT output decreased -passing BM PLAN: -remove NGT Pain managed using patient-controlled analgesia (SEROLOGIST) 05/22/2018 05/23/2018 Last Assessment & Plan: Assessment: -pain well controlled PLAN: -wean SEROLOGIST as able Post-operative state 05/21/2018 07/24/2018 Last Assessment & Plan: Assessment: -POD 10 Hartmanns reversal c/b post op ileus and intrabdominal fluid collection PLAN: -removed NGT -encourage ambulation -incentive spirometry Diverticulitis 05/20/2018 07/24/2018 Last Assessment & Plan: S/P Alfred's reversal. Minor emesis. Awaiting ROBF Colostomy present 12/17/2017 05/21/2018 Post-op pain 11/05/2017 03/27/2019 Last Assessment & Plan: Assessment: -well controlled PLAN: -continue multimodal pain regimen Hypokalemia 11/02/2017 11/05/2017 Patient has nasogastric tube 10/30/2017 PICC (peripherally inserted central catheter) in place 10/30/2017 11/05/2017 On total parenteral nutrition (TPN) 10/30/2017 11/05/[address] 10/30/2017 05/21/2018 Encounter for ostomy care education 10/30/2017 07/24/2018 Nausea 10/30/2017 11/05/2017 Encounter for nasogastric tube placement 018 11/05/2017 Hypocalcemia 10/25/2017 11/05/2017 Malnutrition of mild degree 10/25/201707/05 Last Assessment & Plan: Assessment: -per room attendants assessment PLAN: -discuss parenteral nutrition if prolonged NPO status Elevated serum creatinine 10/24/20172017 Hyponatremia 10/24/2017 10/25/2017 Abdominal distention 10/24/2017 11/05/2017 Superficial thrombophlebitis of both upper extre mities 10/24/2017 01/09/2018 Leukocytosis 10/22/2017 11/05/2017 Abdominal pain 10/22/2017 11/26/2017 Ileus 10/22/2017 11/05/2017 Diverticulitis 10/18/2017 04/29/2018 Iliotibial band syndrome, left leg 06/17/2017 07/24/2018 Cervicalgia 04/30/2014 04/29/2018 Lumbar radiculopathy 07/16/2013 07/04/2017 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 018 Piriformis syndrome of left side 01/23/2013 07/04/2017 Trochanteric bursitis of left hip 01/23/2013 01/09/2018 Dyspnea 09/10/2012 07/04/2017 Neurocirculatory asthenia 09/10/20122016 Chronic shoulder pain 03/07/2012 06/12/2018 Hemorrhage of gastrointestinal tract, unspecifie d 03/15/2009 07/13/2016 Other and unspecified noninf ectious gastroenteritis and colitis(558.9) 12/15/2008 07/13/2016 Excessive or frequent menstruation 09/01/2008 10/20/2008 Urethrocele(618.03) 07/17/2008 10/20/2008 Acute sinusitis, unspecified 07/15/2007 Headache(784.0) 07/12/2007 03/16/2016 Mild dysplasia of cervix 04/19/2007 016 Irregular menstrual cycle 04/19/20072008 Postcoital bleeding 04/19/2007 10/20/2008 Dyspareunia 04/19/2007 03/16/2016 Cystocele, midline 04/19/2007 10/20/2008 Female stress incontinence 04/19/200710/20 Urgency of urination 04/19/2007 03/16/2016 Mononeuritis 06/29/2006 01/09/2018 documented as of this encounter (statuses as of 10/23/2022) [facility]01[facility] History of Past illness Narrative* Problem Noted Date Resolved Date Chronic hypoxemic respiratory failure 09/06/2021 03/20/2022 Hypoxia 06/13/2021 03/20/2022 Systemic infection 06/12/2018 07/24/2018 Intra-abdominal fluid collection 05/28/2018 06/03/2018 Last Assessment & Plan: Assessment: -loculated presacral fluid collection seen on CT 05/28/2018 PLAN: -drain placed -trend output Postoperative ileus 05/27/2018 06/03/2018 Last Assessment & Plan: Assessment: -NGT output decreased -passing BM PLAN: -remove NGT Pain managed using patient-controlled analgesia (SEROLOGIST) 05/22/2018 05/23/2018 Last Assessment & Plan: Assessment: -pain well controlled PLAN: -wean SEROLOGIST as able Post-operative state 05/21/2018 07/24/2018 Last Assessment & Plan: Assessment: -POD 10 Hartmanns reversal c/b post op ileus and intrabdominal fluid collection PLAN: -removed NGT -encourage ambulation -incentive spirometry Diverticulitis 05/20/2018 07/24/2018 Last Assessment & Plan: S/P Alfred's reversal. Minor emesis. Awaiting ROBF Colostomy present 12/17/2017 05/21/2018 Post-op pain 11/05/2017 03/27/2019 Last Assessment & Plan: Assessment: -well controlled PLAN: -continue multimodal pain regimen Hypokalemia 11/02/2017 11/05/2017 Patient has nasogastric tube 10/30/2017 PICC (peripherally inserted central catheter) in place 10/30/2017 11/05/2017 On total parenteral nutrition (TPN) 10/30/2017 11/05/[address] 10/30/2017 05/21/2018 Encounter for ostomy care education 10/30/2017 07/24/2018 Nausea 10/30/2017 11/05/2017 Encounter for nasogastric tube placement 018 11/05/2017 Hypocalcemia 10/25/2017 11/05/2017 Malnutrition of mild degree 10/25/201707/05 Last Assessment & Plan: Assessment: -per room attendants assessment PLAN: -discuss parenteral nutrition if prolonged NPO status Elevated serum creatinine 10/24/20172017 Hyponatremia 10/24/2017 10/25/2017 Abdominal distention 10/24/2017 11/05/2017 Superficial thrombophlebitis of both upper extre mities 10/24/2017 01/09/2018 Leukocytosis 10/22/2017 11/05/2017 Abdominal pain 10/22/2017 11/26/2017 Ileus 10/22/2017 11/05/2017 Diverticulitis 10/18/2017 04/29/2018 Iliotibial band syndrome, left leg 06/17/2017 07/24/2018 Cervicalgia 04/30/2014 04/29/2018 Lumbar radiculopathy 07/16/2013 07/04/2017 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 018 Piriformis syndrome of left side 01/23/2013 07/04/2017 Trochanteric bursitis of left hip 01/23/2013 01/09/2018 Dyspnea 09/10/2012 07/04/2017 Neurocirculatory asthenia 09/10/20122016 Chronic shoulder pain 03/07/2012 06/12/2018 Hemorrhage of gastrointestinal tract, unspecifie d 03/15/2009 07/13/2016 Other and unspecified noninf ectious gastroenteritis and colitis(558.9) 12/15/2008 07/13/2016 Excessive or frequent menstruation 09/01/2008 10/20/2008 Urethrocele(618.03) 07/17/2008 10/20/2008 Acute sinusitis, unspecified 07/15/2007 Headache(784.0) 07/12/2007 03/16/2016 Mild dysplasia of cervix 04/19/2007 016 Irregular menstrual cycle 04/19/20072008 Postcoital bleeding 04/19/2007 10/20/2008 Dyspareunia 04/19/2007 03/16/2016 Cystocele, midline 04/19/2007 10/20/2008 Female stress incontinence 04/19/200710/20 Urgency of urination 04/19/2007 03/16/2016 Mononeuritis 06/29/2006 01/09/2018 documented as of this encounter (statuses as of 11/07/2022) [facility]01[facility] History of Past illness Narrative* Problem Noted Date Resolved Date Chronic hypoxemic respiratory failure 09/06/2021 03/20/2022 Hypoxia 06/13/2021 03/20/2022 Systemic infection 06/12/2018 07/24/2018 Intra-abdominal fluid collection 05/28/2018 06/03/2018 Last Assessment & Plan: Assessment: -loculated presacral fluid collection seen on CT 05/28/2018 PLAN: -drain placed -trend output Postoperative ileus 05/27/2018 06/03/2018 Last Assessment & Plan: Assessment: -NGT output decreased -passing BM PLAN: -remove NGT Pain managed using patient-controlled analgesia (SEROLOGIST) 05/22/2018 05/23/2018 Last Assessment & Plan: Assessment: -pain well controlled PLAN: -wean SEROLOGIST as able Post-operative state 05/21/2018 07/24/2018 Last Assessment & Plan: Assessment: -POD 10 Hartmanns reversal c/b post op ileus and intrabdominal fluid collection PLAN: -removed NGT -encourage ambulation -incentive spirometry Diverticulitis 05/20/2018 07/24/2018 Last Assessment & Plan: S/P Alfred's reversal. Minor emesis. Awaiting ROBF Colostomy present 12/17/2017 05/21/2018 Post-op pain 11/05/2017 03/27/2019 Last Assessment & Plan: Assessment: -well controlled PLAN: -continue multimodal pain regimen Hypokalemia 11/02/2017 11/05/2017 Patient has nasogastric tube 10/30/2017 PICC (peripherally inserted central catheter) in place 10/30/2017 11/05/2017 On total parenteral nutrition (TPN) 10/30/2017 11/05/[address] 10/30/2017 05/21/2018 Encounter for ostomy care education 10/30/2017 07/24/2018 Nausea 10/30/2017 11/05/2017 Encounter for nasogastric tube placement 018 11/05/2017 Hypocalcemia 10/25/2017 11/05/2017 Malnutrition of mild degree 10/25/201707/05 Last Assessment & Plan: Assessment: -per room attendants assessment PLAN: -discuss parenteral nutrition if prolonged NPO status Elevated serum creatinine 10/24/20172017 Hyponatremia 10/24/2017 10/25/2017 Abdominal distention 10/24/2017 11/05/2017 Superficial thrombophlebitis of both upper extre mities 10/24/2017 01/09/2018 Leukocytosis 10/22/2017 11/05/2017 Abdominal pain 10/22/2017 11/26/2017 Ileus 10/22/2017 11/05/2017 Diverticulitis 10/18/2017 04/29/2018 Iliotibial band syndrome, left leg 06/17/2017 07/24/2018 Cervicalgia 04/30/2014 04/29/2018 Lumbar radiculopathy 07/16/2013 07/04/2017 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 018 Piriformis syndrome of left side 01/23/2013 07/04/2017 Trochanteric bursitis of left hip 01/23/2013 01/09/2018 Dyspnea 09/10/2012 07/04/2017 Neurocirculatory asthenia 09/10/20122016 Chronic shoulder pain 03/07/2012 06/12/2018 Hemorrhage of gastrointestinal tract, unspecifie d 03/15/2009 07/13/2016 Other and unspecified noninf ectious gastroenteritis and colitis(558.9) 12/15/2008 07/13/2016 Excessive or frequent menstruation 09/01/2008 10/20/2008 Urethrocele(618.03) 07/17/2008 10/20/2008 Acute sinusitis, unspecified 07/15/2007 Headache(784.0) 07/12/2007 03/16/2016 Mild dysplasia of cervix 04/19/2007 016 Irregular menstrual cycle 04/19/20072008 Postcoital bleeding 04/19/2007 10/20/2008 Dyspareunia 04/19/2007 03/16/2016 Cystocele, midline 04/19/2007 10/20/2008 Female stress incontinence 04/19/200710/20 Urgency of urination 04/19/2007 03/16/2016 Mononeuritis 06/29/2006 01/09/2018 documented as of this encounter (statuses as of 11/13/2022) [facility] History of Past illness Narrative* Problem Noted Date Resolved Date Chronic hypoxemic respiratory failure 09/06/2021 03/20/2022 Hypoxia 06/13/2021 03/20/2022 Systemic infection 06/12/2018 07/24/2018 Intra-abdominal fluid collection 05/28/2018 06/03/2018 Last Assessment & Plan: Assessment: -loculated presacral fluid collection seen on CT 05/28/2018 PLAN: -drain placed -trend output Postoperative ileus 05/27/2018 06/03/2018 Last Assessment & Plan: Assessment: -NGT output decreased -passing BM PLAN: -remove NGT Pain managed using patient-controlled analgesia (SEROLOGIST) 05/22/2018 05/23/2018 Last Assessment & Plan: Assessment: -pain well controlled PLAN: -wean SEROLOGIST as able Post-operative state 05/21/2018 07/24/2018 Last Assessment & Plan: Assessment: -POD 10 Hartmanns reversal c/b post op ileus and intrabdominal fluid collection PLAN: -removed NGT -encourage ambulation -incentive spirometry Diverticulitis 05/20/2018 07/24/2018 Last Assessment & Plan: S/P Alfred's reversal. Minor emesis. Awaiting ROBF Colostomy present 12/17/2017 05/21/2018 Post-op pain 11/05/2017 03/27/2019 Last Assessment & Plan: Assessment: -well controlled PLAN: -continue multimodal pain regimen Hypokalemia 11/02/2017 11/05/2017 Patient has nasogastric tube 10/30/2017 PICC (peripherally inserted central catheter) in place 10/30/2017 11/05/2017 On total parenteral nutrition (TPN) 10/30/2017 11/05/[address] 10/30/2017 05/21/2018 Encounter for ostomy care education 10/30/2017 07/24/2018 Nausea 10/30/2017 11/05/2017 Encounter for nasogastric tube placement 018 11/05/2017 Hypocalcemia 10/25/2017 11/05/2017 Malnutrition of mild degree 10/25/201707/05 Last Assessment & Plan: Assessment: -per room attendants assessment PLAN: -discuss parenteral nutrition if prolonged NPO status Elevated serum creatinine 10/24/20172017 Hyponatremia 10/24/2017 10/25/2017 Abdominal distention 10/24/2017 11/05/2017 Superficial thrombophlebitis of both upper extre mities 10/24/2017 01/09/2018 Leukocytosis 10/22/2017 11/05/2017 Abdominal pain 10/22/2017 11/26/2017 Ileus 10/22/2017 11/05/2017 Diverticulitis 10/18/2017 04/29/2018 Iliotibial band syndrome, left leg 06/17/2017 07/24/2018 Cervicalgia 04/30/2014 04/29/2018 Lumbar radiculopathy 07/16/2013 07/04/2017 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 018 Piriformis syndrome of left side 01/23/2013 07/04/2017 Trochanteric bursitis of left hip 01/23/2013 01/09/2018 Dyspnea 09/10/2012 07/04/2017 Neurocirculatory asthenia 09/10/20122016 Chronic shoulder pain 03/07/2012 06/12/2018 Hemorrhage of gastrointestinal tract, unspecifie d 03/15/2009 07/13/2016 Other and unspecified noninf ectious gastroenteritis and colitis(558.9) 12/15/2008 07/13/2016 Excessive or frequent menstruation 09/01/2008 10/20/2008 Urethrocele(618.03) 07/17/2008 10/20/2008 Acute sinusitis, unspecified 07/15/2007 Headache(784.0) 07/12/2007 03/16/2016 Mild dysplasia of cervix 04/19/2007 016 Irregular menstrual cycle 04/19/20072008 Postcoital bleeding 04/19/2007 10/20/2008 Dyspareunia 04/19/2007 03/16/2016 Cystocele, midline 04/19/2007 10/20/2008 Female stress incontinence 04/19/200710/20 Urgency of urination 04/19/2007 03/16/2016 Mononeuritis 06/29/2006 01/09/2018 documented as of this encounter (statuses as of 11/15/2022) [facility] History of Past illness Narrative* Problem Noted Date Resolved Date Chronic hypoxemic respiratory failure 09/06/2021 03/20/2022 Hypoxia 06/13/2021 03/20/2022 Systemic infection 06/12/2018 07/24/2018 Intra-abdominal fluid collection 05/28/2018 06/03/2018 Last Assessment & Plan: Assessment: -loculated presacral fluid collection seen on CT 05/28/2018 PLAN: -drain placed -trend output Postoperative ileus 05/27/2018 06/03/2018 Last Assessment & Plan: Assessment: -NGT output decreased -passing BM PLAN: -remove NGT Pain managed using patient-controlled analgesia (SEROLOGIST) 05/22/2018 05/23/2018 Last Assessment & Plan: Assessment: -pain well controlled PLAN: -wean SEROLOGIST as able Post-operative state 05/21/2018 07/24/2018 Last Assessment & Plan: Assessment: -POD 10 Hartmanns reversal c/b post op ileus and intrabdominal fluid collection PLAN: -removed NGT -encourage ambulation -incentive spirometry Diverticulitis 05/20/2018 07/24/2018 Last Assessment & Plan: S/P Alfred's reversal. Minor emesis. Awaiting ROBF Colostomy present 12/17/2017 05/21/2018 Post-op pain 11/05/2017 03/27/2019 Last Assessment & Plan: Assessment: -well controlled PLAN: -continue multimodal pain regimen Hypokalemia 11/02/2017 11/05/2017 Patient has nasogastric tube 10/30/2017 PICC (peripherally inserted central catheter) in place 10/30/2017 11/05/2017 On total parenteral nutrition (TPN) 10/30/2017 11/05/[address] 10/30/2017 05/21/2018 Encounter for ostomy care education 10/30/2017 07/24/2018 Nausea 10/30/2017 11/05/2017 Encounter for nasogastric tube placement 018 11/05/2017 Hypocalcemia 10/25/2017 11/05/2017 Malnutrition of mild degree 10/25/201707/05 Last Assessment & Plan: Assessment: -per room attendants assessment PLAN: -discuss parenteral nutrition if prolonged NPO status Elevated serum creatinine 10/24/20172017 Hyponatremia 10/24/2017 10/25/2017 Abdominal distention 10/24/2017 11/05/2017 Superficial thrombophlebitis of both upper extre mities 10/24/2017 01/09/2018 Leukocytosis 10/22/2017 11/05/2017 Abdominal pain 10/22/2017 11/26/2017 Ileus 10/22/2017 11/05/2017 Diverticulitis 10/18/2017 04/29/2018 Iliotibial band syndrome, left leg 06/17/2017 07/24/2018 Cervicalgia 04/30/2014 04/29/2018 Lumbar radiculopathy 07/16/2013 07/04/2017 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 018 Piriformis syndrome of left side 01/23/2013 07/04/2017 Trochanteric bursitis of left hip 01/23/2013 01/09/2018 Dyspnea 09/10/2012 07/04/2017 Neurocirculatory asthenia 09/10/20122016 Chronic shoulder pain 03/07/2012 06/12/2018 Hemorrhage of gastrointestinal tract, unspecifie d 03/15/2009 07/13/2016 Other and unspecified noninf ectious gastroenteritis and colitis(558.9) 12/15/2008 07/13/2016 Excessive or frequent menstruation 09/01/2008 10/20/2008 Urethrocele(618.03) 07/17/2008 10/20/2008 Acute sinusitis, unspecified 07/15/2007 Headache(784.0) 07/12/2007 03/16/2016 Mild dysplasia of cervix 04/19/2007 016 Irregular menstrual cycle 04/19/20072008 Postcoital bleeding 04/19/2007 10/20/2008 Dyspareunia 04/19/2007 03/16/2016 Cystocele, midline 04/19/2007 10/20/2008 Female stress incontinence 04/19/200710/20 Urgency of urination 04/19/2007 03/16/2016 Mononeuritis 06/29/2006 01/09/2018 documented as of this encounter (statuses as of 11/17/2022) [facility] History of Past illness Narrative* Problem Noted Date Resolved Date Chronic hypoxemic respiratory failure 09/06/2021 03/20/2022 Hypoxia 06/13/2021 03/20/2022 Systemic infection 06/12/2018 07/24/2018 Intra-abdominal fluid collection 05/28/2018 06/03/2018 Last Assessment & Plan: Assessment: -loculated presacral fluid collection seen on CT 05/28/2018 PLAN: -drain placed -trend output Postoperative ileus 05/27/2018 06/03/2018 Last Assessment & Plan: Assessment: -NGT output decreased -passing BM PLAN: -remove NGT Pain managed using patient-controlled analgesia (SEROLOGIST) 05/22/2018 05/23/2018 Last Assessment & Plan: Assessment: -pain well controlled PLAN: -wean SEROLOGIST as able Post-operative state 05/21/2018 07/24/2018 Last Assessment & Plan: Assessment: -POD 10 Hartmanns reversal c/b post op ileus and intrabdominal fluid collection PLAN: -removed NGT -encourage ambulation -incentive spirometry Diverticulitis 05/20/2018 07/24/2018 Last Assessment & Plan: S/P Alfred's reversal. Minor emesis. Awaiting ROBF Colostomy present 12/17/2017 05/21/2018 Post-op pain 11/05/2017 03/27/2019 Last Assessment & Plan: Assessment: -well controlled PLAN: -continue multimodal pain regimen Hypokalemia 11/02/2017 11/05/2017 Patient has nasogastric tube 10/30/2017 PICC (peripherally inserted central catheter) in place 10/30/2017 11/05/2017 On total parenteral nutrition (TPN) 10/30/2017 11/05/[address] 10/30/2017 05/21/2018 Encounter for ostomy care education 10/30/2017 07/24/2018 Nausea 10/30/2017 11/05/2017 Encounter for nasogastric tube placement 018 11/05/2017 Hypocalcemia 10/25/2017 11/05/2017 Malnutrition of mild degree 10/25/201707/05 Last Assessment & Plan: Assessment: -per room attendants assessment PLAN: -discuss parenteral nutrition if prolonged NPO status Elevated serum creatinine 10/24/20172017 Hyponatremia 10/24/2017 10/25/2017 Abdominal distention 10/24/2017 11/05/2017 Superficial thrombophlebitis of both upper extre mities 10/24/2017 01/09/2018 Leukocytosis 10/22/2017 11/05/2017 Abdominal pain 10/22/2017 11/26/2017 Ileus 10/22/2017 11/05/2017 Diverticulitis 10/18/2017 04/29/2018 Iliotibial band syndrome, left leg 06/17/2017 07/24/2018 Cervicalgia 04/30/2014 04/29/2018 Lumbar radiculopathy 07/16/2013 07/04/2017 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 018 Piriformis syndrome of left side 01/23/2013 07/04/2017 Trochanteric bursitis of left hip 01/23/2013 01/09/2018 Dyspnea 09/10/2012 07/04/2017 Neurocirculatory asthenia 09/10/20122016 Chronic shoulder pain 03/07/2012 06/12/2018 Hemorrhage of gastrointestinal tract, unspecifie d 03/15/2009 07/13/2016 Other and unspecified noninf ectious gastroenteritis and colitis(558.9) 12/15/2008 07/13/2016 Excessive or frequent menstruation 09/01/2008 10/20/2008 Urethrocele(618.03) 07/17/2008 10/20/2008 Acute sinusitis, unspecified 07/15/2007 Headache(784.0) 07/12/2007 03/16/2016 Mild dysplasia of cervix 04/19/2007 016 Irregular menstrual cycle 04/19/20072008 Postcoital bleeding 04/19/2007 10/20/2008 Dyspareunia 04/19/2007 03/16/2016 Cystocele, midline 04/19/2007 10/20/2008 Female stress incontinence 04/19/200710/20 Urgency of urination 04/19/2007 03/16/2016 Mononeuritis 06/29/2006 01/09/2018 documented as of this encounter (statuses as of 11/17/2022) [facility]01[facility] History of Past illness Narrative* Problem Noted Date Resolved Date Chronic hypoxemic respiratory failure 09/06/2021 03/20/2022 Hypoxia 06/13/2021 03/20/2022 Systemic infection 06/12/2018 07/24/2018 Intra-abdominal fluid collection 05/28/2018 06/03/2018 Last Assessment & Plan: Assessment: -loculated presacral fluid collection seen on CT 05/28/2018 PLAN: -drain placed -trend output Postoperative ileus 05/27/2018 06/03/2018 Last Assessment & Plan: Assessment: -NGT output decreased -passing BM PLAN: -remove NGT Pain managed using patient-controlled analgesia (SEROLOGIST) 05/22/2018 05/23/2018 Last Assessment & Plan: Assessment: -pain well controlled PLAN: -wean SEROLOGIST as able Post-operative state 05/21/2018 07/24/2018 Last Assessment & Plan: Assessment: -POD 10 Hartmanns reversal c/b post op ileus and intrabdominal fluid collection PLAN: -removed NGT -encourage ambulation -incentive spirometry Diverticulitis 05/20/2018 07/24/2018 Last Assessment & Plan: S/P Alfred's reversal. Minor emesis. Awaiting ROBF Colostomy present 12/17/2017 05/21/2018 Post-op pain 11/05/2017 03/27/2019 Last Assessment & Plan: Assessment: -well controlled PLAN: -continue multimodal pain regimen Hypokalemia 11/02/2017 11/05/2017 Patient has nasogastric tube 10/30/2017 PICC (peripherally inserted central catheter) in place 10/30/2017 11/05/2017 On total parenteral nutrition (TPN) 10/30/2017 11/05/[address] 10/30/2017 05/21/2018 Encounter for ostomy care education 10/30/2017 07/24/2018 Nausea 10/30/2017 11/05/2017 Encounter for nasogastric tube placement 018 11/05/2017 Hypocalcemia 10/25/2017 11/05/2017 Malnutrition of mild degree 10/25/201707/05 Last Assessment & Plan: Assessment: -per room attendants assessment PLAN: -discuss parenteral nutrition if prolonged NPO status Elevated serum creatinine 10/24/20172017 Hyponatremia 10/24/2017 10/25/2017 Abdominal distention 10/24/2017 11/05/2017 Superficial thrombophlebitis of both upper extre mities 10/24/2017 01/09/2018 Leukocytosis 10/22/2017 11/05/2017 Abdominal pain 10/22/2017 11/26/2017 Ileus 10/22/2017 11/05/2017 Diverticulitis 10/18/2017 04/29/2018 Iliotibial band syndrome, left leg 06/17/2017 07/24/2018 Cervicalgia 04/30/2014 04/29/2018 Lumbar radiculopathy 07/16/2013 07/04/2017 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 018 Piriformis syndrome of left side 01/23/2013 07/04/2017 Trochanteric bursitis of left hip 01/23/2013 01/09/2018 Dyspnea 09/10/2012 07/04/2017 Neurocirculatory asthenia 09/10/20122016 Chronic shoulder pain 03/07/2012 06/12/2018 Hemorrhage of gastrointestinal tract, unspecifie d 03/15/2009 07/13/2016 Other and unspecified noninf ectious gastroenteritis and colitis(558.9) 12/15/2008 07/13/2016 Excessive or frequent menstruation 09/01/2008 10/20/2008 Urethrocele(618.03) 07/17/2008 10/20/2008 Acute sinusitis, unspecified 07/15/2007 Headache(784.0) 07/12/2007 03/16/2016 Mild dysplasia of cervix 04/19/2007 016 Irregular menstrual cycle 04/19/20072008 Postcoital bleeding 04/19/2007 10/20/2008 Dyspareunia 04/19/2007 03/16/2016 Cystocele, midline 04/19/2007 10/20/2008 Female stress incontinence 04/19/200710/20 Urgency of urination 04/19/2007 03/16/2016 Mononeuritis 06/29/2006 01/09/2018 documented as of this encounter (statuses as of 11/21/2022) [facility]01-[facility] History of Past illness Narrative* Problem Noted Date Resolved Date Chronic hypoxemic respiratory failure 09/06/2021 03/20/2022 Hypoxia 06/13/2021 03/20/2022 Systemic infection 06/12/2018 07/24/2018 Intra-abdominal fluid collection 05/28/2018 06/03/2018 Last Assessment & Plan: Assessment: -loculated presacral fluid collection seen on CT 05/28/2018 PLAN: -drain placed -trend output Postoperative ileus 05/27/2018 06/03/2018 Last Assessment & Plan: Assessment: -NGT output decreased -passing BM PLAN: -remove NGT Pain managed using patient-controlled analgesia (SEROLOGIST) 05/22/2018 05/23/2018 Last Assessment & Plan: Assessment: -pain well controlled PLAN: -wean SEROLOGIST as able Post-operative state 05/21/2018 07/24/2018 Last Assessment & Plan: Assessment: -POD 10 Hartmanns reversal c/b post op ileus and intrabdominal fluid collection PLAN: -removed NGT -encourage ambulation -incentive spirometry Diverticulitis 05/20/2018 07/24/2018 Last Assessment & Plan: S/P Alfred's reversal. Minor emesis. Awaiting ROBF Colostomy present 12/17/2017 05/21/2018 Post-op pain 11/05/2017 03/27/2019 Last Assessment & Plan: Assessment: -well controlled PLAN: -continue multimodal pain regimen Hypokalemia 11/02/2017 11/05/2017 Patient has nasogastric tube 10/30/2017 PICC (peripherally inserted central catheter) in place 10/30/2017 11/05/2017 On total parenteral nutrition (TPN) 10/30/2017 11/05/[address] 10/30/2017 05/21/2018 Encounter for ostomy care education 10/30/2017 07/24/2018 Nausea 10/30/2017 11/05/2017 Encounter for nasogastric tube placement 018 11/05/2017 Hypocalcemia 10/25/2017 11/05/2017 Malnutrition of mild degree 10/25/201707/05 Last Assessment & Plan: Assessment: -per room attendants assessment PLAN: -discuss parenteral nutrition if prolonged NPO status Elevated serum creatinine 10/24/20172017 Hyponatremia 10/24/2017 10/25/2017 Abdominal distention 10/24/2017 11/05/2017 Superficial thrombophlebitis of both upper extre mities 10/24/2017 01/09/2018 Leukocytosis 10/22/2017 11/05/2017 Abdominal pain 10/22/2017 11/26/2017 Ileus 10/22/2017 11/05/2017 Diverticulitis 10/18/2017 04/29/2018 Iliotibial band syndrome, left leg 06/17/2017 07/24/2018 Cervicalgia 04/30/2014 04/29/2018 Lumbar radiculopathy 07/16/2013 07/04/2017 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 018 Piriformis syndrome of left side 01/23/2013 07/04/2017 Trochanteric bursitis of left hip 01/23/2013 01/09/2018 Dyspnea 09/10/2012 07/04/2017 Neurocirculatory asthenia 09/10/20122016 Chronic shoulder pain 03/07/2012 06/12/2018 Hemorrhage of gastrointestinal tract, unspecifie d 03/15/2009 07/13/2016 Other and unspecified noninf ectious gastroenteritis and colitis(558.9) 12/15/2008 07/13/2016 Excessive or frequent menstruation 09/01/2008 10/20/2008 Urethrocele(618.03) 07/17/2008 10/20/2008 Acute sinusitis, unspecified 07/15/2007 Headache(784.0) 07/12/2007 03/16/2016 Mild dysplasia of cervix 04/19/2007 016 Irregular menstrual cycle 04/19/20072008 Postcoital bleeding 04/19/2007 10/20/2008 Dyspareunia 04/19/2007 03/16/2016 Cystocele, midline 04/19/2007 10/20/2008 Female stress incontinence 04/19/200710/20 Urgency of urination 04/19/2007 03/16/2016 Mononeuritis 06/29/2006 01/09/2018 documented as of this encounter (statuses as of 11/22/2022) [facility]01-[facility] History of Past illness Narrative* Problem Noted Date Resolved Date Chronic hypoxemic respiratory failure 09/06/2021 03/20/2022 Hypoxia 06/13/2021 03/20/2022 Systemic infection 06/12/2018 07/24/2018 Intra-abdominal fluid collection 05/28/2018 06/03/2018 Last Assessment & Plan: Assessment: -loculated presacral fluid collection seen on CT 05/28/2018 PLAN: -drain placed -trend output Postoperative ileus 05/27/2018 06/03/2018 Last Assessment & Plan: Assessment: -NGT output decreased -passing BM PLAN: -remove NGT Pain managed using patient-controlled analgesia (SEROLOGIST) 05/22/2018 05/23/2018 Last Assessment & Plan: Assessment: -pain well controlled PLAN: -wean SEROLOGIST as able Post-operative state 05/21/2018 07/24/2018 Last Assessment & Plan: Assessment: -POD 10 Hartmanns reversal c/b post op ileus and intrabdominal fluid collection PLAN: -removed NGT -encourage ambulation -incentive spirometry Diverticulitis 05/20/2018 07/24/2018 Last Assessment & Plan: S/P Alfred's reversal. Minor emesis. Awaiting ROBF Colostomy present 12/17/2017 05/21/2018 Post-op pain 11/05/2017 03/27/2019 Last Assessment & Plan: Assessment: -well controlled PLAN: -continue multimodal pain regimen Hypokalemia 11/02/2017 11/05/2017 Patient has nasogastric tube 10/30/2017 PICC (peripherally inserted central catheter) in place 10/30/2017 11/05/2017 On total parenteral nutrition (TPN) 10/30/2017 11/05/[address] 10/30/2017 05/21/2018 Encounter for ostomy care education 10/30/2017 07/24/2018 Nausea 10/30/2017 11/05/2017 Encounter for nasogastric tube placement 018 11/05/2017 Hypocalcemia 10/25/2017 11/05/2017 Malnutrition of mild degree 10/25/201707/05 Last Assessment & Plan: Assessment: -per room attendants assessment PLAN: -discuss parenteral nutrition if prolonged NPO status Elevated serum creatinine 10/24/20172017 Hyponatremia 10/24/2017 10/25/2017 Abdominal distention 10/24/2017 11/05/2017 Superficial thrombophlebitis of both upper extre mities 10/24/2017 01/09/2018 Leukocytosis 10/22/2017 11/05/2017 Abdominal pain 10/22/2017 11/26/2017 Ileus 10/22/2017 11/05/2017 Diverticulitis 10/18/2017 04/29/2018 Iliotibial band syndrome, left leg 06/17/2017 07/24/2018 Cervicalgia 04/30/2014 04/29/2018 Lumbar radiculopathy 07/16/2013 07/04/2017 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 018 Piriformis syndrome of left side 01/23/2013 07/04/2017 Trochanteric bursitis of left hip 01/23/2013 01/09/2018 Dyspnea 09/10/2012 07/04/2017 Neurocirculatory asthenia 09/10/20122016 Chronic shoulder pain 03/07/2012 06/12/2018 Hemorrhage of gastrointestinal tract, unspecifie d 03/15/2009 07/13/2016 Other and unspecified noninf ectious gastroenteritis and colitis(558.9) 12/15/2008 07/13/2016 Excessive or frequent menstruation 09/01/2008 10/20/2008 Urethrocele(618.03) 07/17/2008 10/20/2008 Acute sinusitis, unspecified 07/15/2007 Headache(784.0) 07/12/2007 03/16/2016 Mild dysplasia of cervix 04/19/2007 016 Irregular menstrual cycle 04/19/20072008 Postcoital bleeding 04/19/2007 10/20/2008 Dyspareunia 04/19/2007 03/16/2016 Cystocele, midline 04/19/2007 10/20/2008 Female stress incontinence 04/19/200710/20 Urgency of urination 04/19/2007 03/16/2016 Mononeuritis 06/29/2006 01/09/2018 documented as of this encounter (statuses as of 11/30/2022) [facility]01[facility] History of Past illness Narrative* Problem Noted Date Resolved Date Chronic hypoxemic respiratory failure 09/06/2021 03/20/2022 Hypoxia 06/13/2021 03/20/2022 Systemic infection 06/12/2018 07/24/2018 Intra-abdominal fluid collection 05/28/2018 06/03/2018 Last Assessment & Plan: Assessment: -loculated presacral fluid collection seen on CT 05/28/2018 PLAN: -drain placed -trend output Postoperative ileus 05/27/2018 06/03/2018 Last Assessment & Plan: Assessment: -NGT output decreased -passing BM PLAN: -remove NGT Pain managed using patient-controlled analgesia (SEROLOGIST) 05/22/2018 05/23/2018 Last Assessment & Plan: Assessment: -pain well controlled PLAN: -wean SEROLOGIST as able Post-operative state 05/21/2018 07/24/2018 Last Assessment & Plan: Assessment: -POD 10 Hartmanns reversal c/b post op ileus and intrabdominal fluid collection PLAN: -removed NGT -encourage ambulation -incentive spirometry Diverticulitis 05/20/2018 07/24/2018 Last Assessment & Plan: S/P Alfred's reversal. Minor emesis. Awaiting ROBF Colostomy present 12/17/2017 05/21/2018 Post-op pain 11/05/2017 03/27/2019 Last Assessment & Plan: Assessment: -well controlled PLAN: -continue multimodal pain regimen Hypokalemia 11/02/2017 11/05/2017 Patient has nasogastric tube 10/30/2017 PICC (peripherally inserted central catheter) in place 10/30/2017 11/05/2017 On total parenteral nutrition (TPN) 10/30/2017 11/05/[address] 10/30/2017 05/21/2018 Encounter for ostomy care education 10/30/2017 07/24/2018 Nausea 10/30/2017 11/05/2017 Encounter for nasogastric tube placement 018 11/05/2017 Hypocalcemia 10/25/2017 11/05/2017 Malnutrition of mild degree 10/25/201707/05 Last Assessment & Plan: Assessment: -per room attendants assessment PLAN: -discuss parenteral nutrition if prolonged NPO status Elevated serum creatinine 10/24/20172017 Hyponatremia 10/24/2017 10/25/2017 Abdominal distention 10/24/2017 11/05/2017 Superficial thrombophlebitis of both upper extre mities 10/24/2017 01/09/2018 Leukocytosis 10/22/2017 11/05/2017 Abdominal pain 10/22/2017 11/26/2017 Ileus 10/22/2017 11/05/2017 Diverticulitis 10/18/2017 04/29/2018 Iliotibial band syndrome, left leg 06/17/2017 07/24/2018 Cervicalgia 04/30/2014 04/29/2018 Lumbar radiculopathy 07/16/2013 07/04/2017 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 018 Piriformis syndrome of left side 01/23/2013 07/04/2017 Trochanteric bursitis of left hip 01/23/2013 01/09/2018 Dyspnea 09/10/2012 07/04/2017 Neurocirculatory asthenia 09/10/20122016 Chronic shoulder pain 03/07/2012 06/12/2018 Hemorrhage of gastrointestinal tract, unspecifie d 03/15/2009 07/13/2016 Other and unspecified noninf ectious gastroenteritis and colitis(558.9) 12/15/2008 07/13/2016 Excessive or frequent menstruation 09/01/2008 10/20/2008 Urethrocele(618.03) 07/17/2008 10/20/2008 Acute sinusitis, unspecified 07/15/2007 Headache(784.0) 07/12/2007 03/16/2016 Mild dysplasia of cervix 04/19/2007 016 Irregular menstrual cycle 04/19/20072008 Postcoital bleeding 04/19/2007 10/20/2008 Dyspareunia 04/19/2007 03/16/2016 Cystocele, midline 04/19/2007 10/20/2008 Female stress incontinence 04/19/200710/20 Urgency of urination 04/19/2007 03/16/2016 Mononeuritis 06/29/2006 01/09/2018 documented as of this encounter (statuses as of 12/01/2022) [facility] History of Past illness Narrative* Problem Noted Date Resolved Date Chronic hypoxemic respiratory failure 09/06/2021 03/20/2022 Hypoxia 06/13/2021 03/20/2022 Systemic infection 06/12/2018 07/24/2018 Intra-abdominal fluid collection 05/28/2018 06/03/2018 Last Assessment & Plan: Assessment: -loculated presacral fluid collection seen on CT 05/28/2018 PLAN: -drain placed -trend output Postoperative ileus 05/27/2018 06/03/2018 Last Assessment & Plan: Assessment: -NGT output decreased -passing BM PLAN: -remove NGT Pain managed using patient-controlled analgesia (SEROLOGIST) 05/22/2018 05/23/2018 Last Assessment & Plan: Assessment: -pain well controlled PLAN: -wean SEROLOGIST as able Post-operative state 05/21/2018 07/24/2018 Last Assessment & Plan: Assessment: -POD 10 Hartmanns reversal c/b post op ileus and intrabdominal fluid collection PLAN: -removed NGT -encourage ambulation -incentive spirometry Diverticulitis 05/20/2018 07/24/2018 Last Assessment & Plan: S/P Alfred's reversal. Minor emesis. Awaiting ROBF Colostomy present 12/17/2017 05/21/2018 Post-op pain 11/05/2017 03/27/2019 Last Assessment & Plan: Assessment: -well controlled PLAN: -continue multimodal pain regimen Hypokalemia 11/02/2017 11/05/2017 Patient has nasogastric tube 10/30/2017 PICC (peripherally inserted central catheter) in place 10/30/2017 11/05/2017 On total parenteral nutrition (TPN) 10/30/2017 11/05/[address] 10/30/2017 05/21/2018 Encounter for ostomy care education 10/30/2017 07/24/2018 Nausea 10/30/2017 11/05/2017 Encounter for nasogastric tube placement 018 11/05/2017 Hypocalcemia 10/25/2017 11/05/2017 Malnutrition of mild degree 10/25/201707/05 Last Assessment & Plan: Assessment: -per room attendants assessment PLAN: -discuss parenteral nutrition if prolonged NPO status Elevated serum creatinine 10/24/20172017 Hyponatremia 10/24/2017 10/25/2017 Abdominal distention 10/24/2017 11/05/2017 Superficial thrombophlebitis of both upper extre mities 10/24/2017 01/09/2018 Leukocytosis 10/22/2017 11/05/2017 Abdominal pain 10/22/2017 11/26/2017 Ileus 10/22/2017 11/05/2017 Diverticulitis 10/18/2017 04/29/2018 Iliotibial band syndrome, left leg 06/17/2017 07/24/2018 Cervicalgia 04/30/2014 04/29/2018 Lumbar radiculopathy 07/16/2013 07/04/2017 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 018 Piriformis syndrome of left side 01/23/2013 07/04/2017 Trochanteric bursitis of left hip 01/23/2013 01/09/2018 Dyspnea 09/10/2012 07/04/2017 Neurocirculatory asthenia 09/10/20122016 Chronic shoulder pain 03/07/2012 06/12/2018 Hemorrhage of gastrointestinal tract, unspecifie d 03/15/2009 07/13/2016 Other and unspecified noninf ectious gastroenteritis and colitis(558.9) 12/15/2008 07/13/2016 Excessive or frequent menstruation 09/01/2008 10/20/2008 Urethrocele(618.03) 07/17/2008 10/20/2008 Acute sinusitis, unspecified 07/15/2007 Headache(784.0) 07/12/2007 03/16/2016 Mild dysplasia of cervix 04/19/2007 016 Irregular menstrual cycle 04/19/20072008 Postcoital bleeding 04/19/2007 10/20/2008 Dyspareunia 04/19/2007 03/16/2016 Cystocele, midline 04/19/2007 10/20/2008 Female stress incontinence 04/19/200710/20 Urgency of urination 04/19/2007 03/16/2016 Mononeuritis 06/29/2006 01/09/2018 documented as of this encounter (statuses as of 12/11/2022) [facility] History of Past illness Narrative* Problem Noted Date Resolved Date Chronic hypoxemic respiratory failure 09/06/2021 03/20/2022 Hypoxia 06/13/2021 03/20/2022 Systemic infection 06/12/2018 07/24/2018 Intra-abdominal fluid collection 05/28/2018 06/03/2018 Last Assessment & Plan: Assessment: -loculated presacral fluid collection seen on CT 05/28/2018 PLAN: -drain placed -trend output Postoperative ileus 05/27/2018 06/03/2018 Last Assessment & Plan: Assessment: -NGT output decreased -passing BM PLAN: -remove NGT Pain managed using patient-controlled analgesia (SEROLOGIST) 05/22/2018 05/23/2018 Last Assessment & Plan: Assessment: -pain well controlled PLAN: -wean SEROLOGIST as able Post-operative state 05/21/2018 07/24/2018 Last Assessment & Plan: Assessment: -POD 10 Hartmanns reversal c/b post op ileus and intrabdominal fluid collection PLAN: -removed NGT -encourage ambulation -incentive spirometry Diverticulitis 05/20/2018 07/24/2018 Last Assessment & Plan: S/P Alfred's reversal. Minor emesis. Awaiting ROBF Colostomy present 12/17/2017 05/21/2018 Post-op pain 11/05/2017 03/27/2019 Last Assessment & Plan: Assessment: -well controlled PLAN: -continue multimodal pain regimen Hypokalemia 11/02/2017 11/05/2017 Patient has nasogastric tube 10/30/2017 PICC (peripherally inserted central catheter) in place 10/30/2017 11/05/2017 On total parenteral nutrition (TPN) 10/30/2017 11/05/[address] 10/30/2017 05/21/2018 Encounter for ostomy care education 10/30/2017 07/24/2018 Nausea 10/30/2017 11/05/2017 Encounter for nasogastric tube placement 018 11/05/2017 Hypocalcemia 10/25/2017 11/05/2017 Malnutrition of mild degree 10/25/201707/05 Last Assessment & Plan: Assessment: -per room attendants assessment PLAN: -discuss parenteral nutrition if prolonged NPO status Elevated serum creatinine 10/24/20172017 Hyponatremia 10/24/2017 10/25/2017 Abdominal distention 10/24/2017 11/05/2017 Superficial thrombophlebitis of both upper extre mities 10/24/2017 01/09/2018 Leukocytosis 10/22/2017 11/05/2017 Abdominal pain 10/22/2017 11/26/2017 Ileus 10/22/2017 11/05/2017 Diverticulitis 10/18/2017 04/29/2018 Iliotibial band syndrome, left leg 06/17/2017 07/24/2018 Cervicalgia 04/30/2014 04/29/2018 Lumbar radiculopathy 07/16/2013 07/04/2017 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 018 Piriformis syndrome of left side 01/23/2013 07/04/2017 Trochanteric bursitis of left hip 01/23/2013 01/09/2018 Dyspnea 09/10/2012 07/04/2017 Neurocirculatory asthenia 09/10/20122016 Chronic shoulder pain 03/07/2012 06/12/2018 Hemorrhage of gastrointestinal tract, unspecifie d 03/15/2009 07/13/2016 Other and unspecified noninf ectious gastroenteritis and colitis(558.9) 12/15/2008 07/13/2016 Excessive or frequent menstruation 09/01/2008 10/20/2008 Urethrocele(618.03) 07/17/2008 10/20/2008 Acute sinusitis, unspecified 07/15/2007 Headache(784.0) 07/12/2007 03/16/2016 Mild dysplasia of cervix 04/19/2007 016 Irregular menstrual cycle 04/19/20072008 Postcoital bleeding 04/19/2007 10/20/2008 Dyspareunia 04/19/2007 03/16/2016 Cystocele, midline 04/19/2007 10/20/2008 Female stress incontinence 04/19/200710/20 Urgency of urination 04/19/2007 03/16/2016 Mononeuritis 06/29/2006 01/09/2018 documented as of this encounter (statuses as of 12/14/2022) [facility] History of Past illness Narrative* Problem Noted Date Resolved Date Chronic hypoxemic respiratory failure 09/06/2021 03/20/2022 Hypoxia 06/13/2021 03/20/2022 Systemic infection 06/12/2018 07/24/2018 Intra-abdominal fluid collection 05/28/2018 06/03/2018 Last Assessment & Plan: Assessment: -loculated presacral fluid collection seen on CT 05/28/2018 PLAN: -drain placed -trend output Postoperative ileus 05/27/2018 06/03/2018 Last Assessment & Plan: Assessment: -NGT output decreased -passing BM PLAN: -remove NGT Pain managed using patient-controlled analgesia (SEROLOGIST) 05/22/2018 05/23/2018 Last Assessment & Plan: Assessment: -pain well controlled PLAN: -wean SEROLOGIST as able Post-operative state 05/21/2018 07/24/2018 Last Assessment & Plan: Assessment: -POD 10 Hartmanns reversal c/b post op ileus and intrabdominal fluid collection PLAN: -removed NGT -encourage ambulation -incentive spirometry Diverticulitis 05/20/2018 07/24/2018 Last Assessment & Plan: S/P Alfred's reversal. Minor emesis. Awaiting ROBF Colostomy present 12/17/2017 05/21/2018 Post-op pain 11/05/2017 03/27/2019 Last Assessment & Plan: Assessment: -well controlled PLAN: -continue multimodal pain regimen Hypokalemia 11/02/2017 11/05/2017 Patient has nasogastric tube 10/30/2017 PICC (peripherally inserted central catheter) in place 10/30/2017 11/05/2017 On total parenteral nutrition (TPN) 10/30/2017 11/05/[address] 10/30/2017 05/21/2018 Encounter for ostomy care education 10/30/2017 07/24/2018 Nausea 10/30/2017 11/05/2017 Encounter for nasogastric tube placement 018 11/05/2017 Hypocalcemia 10/25/2017 11/05/2017 Malnutrition of mild degree 10/25/201707/05 Last Assessment & Plan: Assessment: -per room attendants assessment PLAN: -discuss parenteral nutrition if prolonged NPO status Elevated serum creatinine 10/24/20172017 Hyponatremia 10/24/2017 10/25/2017 Abdominal distention 10/24/2017 11/05/2017 Superficial thrombophlebitis of both upper extre mities 10/24/2017 01/09/2018 Leukocytosis 10/22/2017 11/05/2017 Abdominal pain 10/22/2017 11/26/2017 Ileus 10/22/2017 11/05/2017 Diverticulitis 10/18/2017 04/29/2018 Iliotibial band syndrome, left leg 06/17/2017 07/24/2018 Cervicalgia 04/30/2014 04/29/2018 Lumbar radiculopathy 07/16/2013 07/04/2017 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 018 Piriformis syndrome of left side 01/23/2013 07/04/2017 Trochanteric bursitis of left hip 01/23/2013 01/09/2018 Dyspnea 09/10/2012 07/04/2017 Neurocirculatory asthenia 09/10/20122016 Chronic shoulder pain 03/07/2012 06/12/2018 Hemorrhage of gastrointestinal tract, unspecifie d 03/15/2009 07/13/2016 Other and unspecified noninf ectious gastroenteritis and colitis(558.9) 12/15/2008 07/13/2016 Excessive or frequent menstruation 09/01/2008 10/20/2008 Urethrocele(618.03) 07/17/2008 10/20/2008 Acute sinusitis, unspecified 07/15/2007 Headache(784.0) 07/12/2007 03/16/2016 Mild dysplasia of cervix 04/19/2007 016 Irregular menstrual cycle 04/19/20072008 Postcoital bleeding 04/19/2007 10/20/2008 Dyspareunia 04/19/2007 03/16/2016 Cystocele, midline 04/19/2007 10/20/2008 Female stress incontinence 04/19/200710/20 Urgency of urination 04/19/2007 03/16/2016 Mononeuritis 06/29/2006 01/09/2018 documented as of this encounter (statuses as of 12/18/2022) [facility]01-[facility] History of Past illness Narrative* Problem Noted Date Resolved Date Chronic hypoxemic respiratory failure 09/06/2021 03/20/2022 Hypoxia 06/13/2021 03/20/2022 Systemic infection 06/12/2018 07/24/2018 Intra-abdominal fluid collection 05/28/2018 06/03/2018 Last Assessment & Plan: Assessment: -loculated presacral fluid collection seen on CT 05/28/2018 PLAN: -drain placed -trend output Postoperative ileus 05/27/2018 06/03/2018 Last Assessment & Plan: Assessment: -NGT output decreased -passing BM PLAN: -remove NGT Pain managed using patient-controlled analgesia (SEROLOGIST) 05/22/2018 05/23/2018 Last Assessment & Plan: Assessment: -pain well controlled PLAN: -wean SEROLOGIST as able Post-operative state 05/21/2018 07/24/2018 Last Assessment & Plan: Assessment: -POD 10 Hartmanns reversal c/b post op ileus and intrabdominal fluid collection PLAN: -removed NGT -encourage ambulation -incentive spirometry Diverticulitis 05/20/2018 07/24/2018 Last Assessment & Plan: S/P Alfred's reversal. Minor emesis. Awaiting ROBF Colostomy present 12/17/2017 05/21/2018 Post-op pain 11/05/2017 03/27/2019 Last Assessment & Plan: Assessment: -well controlled PLAN: -continue multimodal pain regimen Hypokalemia 11/02/2017 11/05/2017 Patient has nasogastric tube 10/30/2017 PICC (peripherally inserted central catheter) in place 10/30/2017 11/05/2017 On total parenteral nutrition (TPN) 10/30/2017 11/05/[address] 10/30/2017 05/21/2018 Encounter for ostomy care education 10/30/2017 07/24/2018 Nausea 10/30/2017 11/05/2017 Encounter for nasogastric tube placement 018 11/05/2017 Hypocalcemia 10/25/2017 11/05/2017 Malnutrition of mild degree 10/25/201707/05 Last Assessment & Plan: Assessment: -per room attendants assessment PLAN: -discuss parenteral nutrition if prolonged NPO status Elevated serum creatinine 10/24/20172017 Hyponatremia 10/24/2017 10/25/2017 Abdominal distention 10/24/2017 11/05/2017 Superficial thrombophlebitis of both upper extre mities 10/24/2017 01/09/2018 Leukocytosis 10/22/2017 11/05/2017 Abdominal pain 10/22/2017 11/26/2017 Ileus 10/22/2017 11/05/2017 Diverticulitis 10/18/2017 04/29/2018 Iliotibial band syndrome, left leg 06/17/2017 07/24/2018 Cervicalgia 04/30/2014 04/29/2018 Lumbar radiculopathy 07/16/2013 07/04/2017 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 018 Piriformis syndrome of left side 01/23/2013 07/04/2017 Trochanteric bursitis of left hip 01/23/2013 01/09/2018 Dyspnea 09/10/2012 07/04/2017 Neurocirculatory asthenia 09/10/20122016 Chronic shoulder pain 03/07/2012 06/12/2018 Hemorrhage of gastrointestinal tract, unspecifie d 03/15/2009 07/13/2016 Other and unspecified noninf ectious gastroenteritis and colitis(558.9) 12/15/2008 07/13/2016 Excessive or frequent menstruation 09/01/2008 10/20/2008 Urethrocele(618.03) 07/17/2008 10/20/2008 Acute sinusitis, unspecified 07/15/2007 Headache(784.0) 07/12/2007 03/16/2016 Mild dysplasia of cervix 04/19/2007 016 Irregular menstrual cycle 04/19/20072008 Postcoital bleeding 04/19/2007 10/20/2008 Dyspareunia 04/19/2007 03/16/2016 Cystocele, midline 04/19/2007 10/20/2008 Female stress incontinence 04/19/200710/20 Urgency of urination 04/19/2007 03/16/2016 Mononeuritis 06/29/2006 01/09/2018 documented as of this encounter (statuses as of 01/04/2023) [facility]01-[facility] History of Past illness Narrative* Problem Noted Date Resolved Date Chronic hypoxemic respiratory failure 09/06/2021 03/20/2022 Hypoxia 06/13/2021 03/20/2022 Systemic infection 06/12/2018 07/24/2018 Intra-abdominal fluid collection 05/28/2018 06/03/2018 Last Assessment & Plan: Assessment: -loculated presacral fluid collection seen on CT 05/28/2018 PLAN: -drain placed -trend output Postoperative ileus 05/27/2018 06/03/2018 Last Assessment & Plan: Assessment: -NGT output decreased -passing BM PLAN: -remove NGT Pain managed using patient-controlled analgesia (SEROLOGIST) 05/22/2018 05/23/2018 Last Assessment & Plan: Assessment: -pain well controlled PLAN: -wean SEROLOGIST as able Post-operative state 05/21/2018 07/24/2018 Last Assessment & Plan: Assessment: -POD 10 Hartmanns reversal c/b post op ileus and intrabdominal fluid collection PLAN: -removed NGT -encourage ambulation -incentive spirometry Diverticulitis 05/20/2018 07/24/2018 Last Assessment & Plan: S/P Alfred's reversal. Minor emesis. Awaiting ROBF Colostomy present 12/17/2017 05/21/2018 Post-op pain 11/05/2017 03/27/2019 Last Assessment & Plan: Assessment: -well controlled PLAN: -continue multimodal pain regimen Hypokalemia 11/02/2017 11/05/2017 Patient has nasogastric tube 10/30/2017 PICC (peripherally inserted central catheter) in place 10/30/2017 11/05/2017 On total parenteral nutrition (TPN) 10/30/2017 11/05/[address] 10/30/2017 05/21/2018 Encounter for ostomy care education 10/30/2017 07/24/2018 Nausea 10/30/2017 11/05/2017 Encounter for nasogastric tube placement 018 11/05/2017 Hypocalcemia 10/25/2017 11/05/2017 Malnutrition of mild degree 10/25/201707/05 Last Assessment & Plan: Assessment: -per room attendants assessment PLAN: -discuss parenteral nutrition if prolonged NPO status Elevated serum creatinine 10/24/20172017 Hyponatremia 10/24/2017 10/25/2017 Abdominal distention 10/24/2017 11/05/2017 Superficial thrombophlebitis of both upper extre mities 10/24/2017 01/09/2018 Leukocytosis 10/22/2017 11/05/2017 Abdominal pain 10/22/2017 11/26/2017 Ileus 10/22/2017 11/05/2017 Diverticulitis 10/18/2017 04/29/2018 Iliotibial band syndrome, left leg 06/17/2017 07/24/2018 Cervicalgia 04/30/2014 04/29/2018 Lumbar radiculopathy 07/16/2013 07/04/2017 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 018 Piriformis syndrome of left side 01/23/2013 07/04/2017 Trochanteric bursitis of left hip 01/23/2013 01/09/2018 Dyspnea 09/10/2012 07/04/2017 Neurocirculatory asthenia 09/10/20122016 Chronic shoulder pain 03/07/2012 06/12/2018 Hemorrhage of gastrointestinal tract, unspecifie d 03/15/2009 07/13/2016 Other and unspecified noninf ectious gastroenteritis and colitis(558.9) 12/15/2008 07/13/2016 Excessive or frequent menstruation 09/01/2008 10/20/2008 Urethrocele(618.03) 07/17/2008 10/20/2008 Acute sinusitis, unspecified 07/15/2007 Headache(784.0) 07/12/2007 03/16/2016 Mild dysplasia of cervix 04/19/2007 016 Irregular menstrual cycle 04/19/20072008 Postcoital bleeding 04/19/2007 10/20/2008 Dyspareunia 04/19/2007 03/16/2016 Cystocele, midline 04/19/2007 10/20/2008 Female stress incontinence 04/19/200710/20 Urgency of urination 04/19/2007 03/16/2016 Mononeuritis 06/29/2006 01/09/2018 documented as of this encounter (statuses as of 01/09/2023) [facility]01-[facility] History of Past illness Narrative* Problem Noted Date Resolved Date Chronic hypoxemic respiratory failure 09/06/2021 03/20/2022 Hypoxia 06/13/2021 03/20/2022 Systemic infection 06/12/2018 07/24/2018 Intra-abdominal fluid collection 05/28/2018 06/03/2018 Last Assessment & Plan: Assessment: -loculated presacral fluid collection seen on CT 05/28/2018 PLAN: -drain placed -trend output Postoperative ileus 05/27/2018 06/03/2018 Last Assessment & Plan: Assessment: -NGT output decreased -passing BM PLAN: -remove NGT Pain managed using patient-controlled analgesia (SEROLOGIST) 05/22/2018 05/23/2018 Last Assessment & Plan: Assessment: -pain well controlled PLAN: -wean SEROLOGIST as able Post-operative state 05/21/2018 07/24/2018 Last Assessment & Plan: Assessment: -POD 10 Hartmanns reversal c/b post op ileus and intrabdominal fluid collection PLAN: -removed NGT -encourage ambulation -incentive spirometry Diverticulitis 05/20/2018 07/24/2018 Last Assessment & Plan: S/P Alfred's reversal. Minor emesis. Awaiting ROBF Colostomy present 12/17/2017 05/21/2018 Post-op pain 11/05/2017 03/27/2019 Last Assessment & Plan: Assessment: -well controlled PLAN: -continue multimodal pain regimen Hypokalemia 11/02/2017 11/05/2017 Patient has nasogastric tube 10/30/2017 PICC (peripherally inserted central catheter) in place 10/30/2017 11/05/2017 On total parenteral nutrition (TPN) 10/30/2017 11/05/[address] 10/30/2017 05/21/2018 Encounter for ostomy care education 10/30/2017 07/24/2018 Nausea 10/30/2017 11/05/2017 Encounter for nasogastric tube placement 018 11/05/2017 Hypocalcemia 10/25/2017 11/05/2017 Malnutrition of mild degree 10/25/201707/05 Last Assessment & Plan: Assessment: -per room attendants assessment PLAN: -discuss parenteral nutrition if prolonged NPO status Elevated serum creatinine 10/24/20172017 Hyponatremia 10/24/2017 10/25/2017 Abdominal distention 10/24/2017 11/05/2017 Superficial thrombophlebitis of both upper extre mities 10/24/2017 01/09/2018 Leukocytosis 10/22/2017 11/05/2017 Abdominal pain 10/22/2017 11/26/2017 Ileus 10/22/2017 11/05/2017 Diverticulitis 10/18/2017 04/29/2018 Iliotibial band syndrome, left leg 06/17/2017 07/24/2018 Cervicalgia 04/30/2014 04/29/2018 Lumbar radiculopathy 07/16/2013 07/04/2017 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 018 Piriformis syndrome of left side 01/23/2013 07/04/2017 Trochanteric bursitis of left hip 01/23/2013 01/09/2018 Dyspnea 09/10/2012 07/04/2017 Neurocirculatory asthenia 09/10/20122016 Chronic shoulder pain 03/07/2012 06/12/2018 Hemorrhage of gastrointestinal tract, unspecifie d 03/15/2009 07/13/2016 Other and unspecified noninf ectious gastroenteritis and colitis(558.9) 12/15/2008 07/13/2016 Excessive or frequent menstruation 09/01/2008 10/20/2008 Urethrocele(618.03) 07/17/2008 10/20/2008 Acute sinusitis, unspecified 07/15/2007 Headache(784.0) 07/12/2007 03/16/2016 Mild dysplasia of cervix 04/19/2007 016 Irregular menstrual cycle 04/19/20072008 Postcoital bleeding 04/19/2007 10/20/2008 Dyspareunia 04/19/2007 03/16/2016 Cystocele, midline 04/19/2007 10/20/2008 Female stress incontinence 04/19/200710/20 Urgency of urination 04/19/2007 03/16/2016 Mononeuritis 06/29/2006 01/09/2018 documented as of this encounter (statuses as of 02/07/2023) [facility]01[facility] History of Past illness Narrative* Problem Noted Date Resolved Date Chronic hypoxemic respiratory failure 09/06/2021 03/20/2022 Hypoxia 06/13/2021 03/20/2022 Systemic infection 06/12/2018 07/24/2018 Intra-abdominal fluid collection 05/28/2018 06/03/2018 Last Assessment & Plan: Assessment: -loculated presacral fluid collection seen on CT 05/28/2018 PLAN: -drain placed -trend output Postoperative ileus 05/27/2018 06/03/2018 Last Assessment & Plan: Assessment: -NGT output decreased -passing BM PLAN: -remove NGT Pain managed using patient-controlled analgesia (SEROLOGIST) 05/22/2018 05/23/2018 Last Assessment & Plan: Assessment: -pain well controlled PLAN: -wean SEROLOGIST as able Post-operative state 05/21/2018 07/24/2018 Last Assessment & Plan: Assessment: -POD 10 Hartmanns reversal c/b post op ileus and intrabdominal fluid collection PLAN: -removed NGT -encourage ambulation -incentive spirometry Diverticulitis 05/20/2018 07/24/2018 Last Assessment & Plan: S/P Alfred's reversal. Minor emesis. Awaiting ROBF Colostomy present 12/17/2017 05/21/2018 Post-op pain 11/05/2017 03/27/2019 Last Assessment & Plan: Assessment: -well controlled PLAN: -continue multimodal pain regimen Hypokalemia 11/02/2017 11/05/2017 Patient has nasogastric tube 10/30/2017 PICC (peripherally inserted central catheter) in place 10/30/2017 11/05/2017 On total parenteral nutrition (TPN) 10/30/2017 11/05/[address] 10/30/2017 05/21/2018 Encounter for ostomy care education 10/30/2017 07/24/2018 Nausea 10/30/2017 11/05/2017 Encounter for nasogastric tube placement 018 11/05/2017 Hypocalcemia 10/25/2017 11/05/2017 Malnutrition of mild degree 10/25/201707/05 Last Assessment & Plan: Assessment: -per room attendants assessment PLAN: -discuss parenteral nutrition if prolonged NPO status Elevated serum creatinine 10/24/20172017 Hyponatremia 10/24/2017 10/25/2017 Abdominal distention 10/24/2017 11/05/2017 Superficial thrombophlebitis of both upper extre mities 10/24/2017 01/09/2018 Leukocytosis 10/22/2017 11/05/2017 Abdominal pain 10/22/2017 11/26/2017 Ileus 10/22/2017 11/05/2017 Diverticulitis 10/18/2017 04/29/2018 Iliotibial band syndrome, left leg 06/17/2017 07/24/2018 Cervicalgia 04/30/2014 04/29/2018 Lumbar radiculopathy 07/16/2013 07/04/2017 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 018 Piriformis syndrome of left side 01/23/2013 07/04/2017 Trochanteric bursitis of left hip 01/23/2013 01/09/2018 Dyspnea 09/10/2012 07/04/2017 Neurocirculatory asthenia 09/10/20122016 Chronic shoulder pain 03/07/2012 06/12/2018 Hemorrhage of gastrointestinal tract, unspecifie d 03/15/2009 07/13/2016 Other and unspecified noninf ectious gastroenteritis and colitis(558.9) 12/15/2008 07/13/2016 Excessive or frequent menstruation 09/01/2008 10/20/2008 Urethrocele(618.03) 07/17/2008 10/20/2008 Acute sinusitis, unspecified 07/15/2007 Headache(784.0) 07/12/2007 03/16/2016 Mild dysplasia of cervix 04/19/2007 016 Irregular menstrual cycle 04/19/20072008 Postcoital bleeding 04/19/2007 10/20/2008 Dyspareunia 04/19/2007 03/16/2016 Cystocele, midline 04/19/2007 10/20/2008 Female stress incontinence 04/19/200710/20 Urgency of urination 04/19/2007 03/16/2016 Mononeuritis 06/29/2006 01/09/2018 documented as of this encounter (statuses as of 02/08/2023) [facility]01[facility] History of Past illness Narrative* Problem Noted Date Resolved Date Chronic hypoxemic respiratory failure 09/06/2021 03/20/2022 Hypoxia 06/13/2021 03/20/2022 Systemic infection 06/12/2018 07/24/2018 Intra-abdominal fluid collection 05/28/2018 06/03/2018 Last Assessment & Plan: Assessment: -loculated presacral fluid collection seen on CT 05/28/2018 PLAN: -drain placed -trend output Postoperative ileus 05/27/2018 06/03/2018 Last Assessment & Plan: Assessment: -NGT output decreased -passing BM PLAN: -remove NGT Pain managed using patient-controlled analgesia (SEROLOGIST) 05/22/2018 05/23/2018 Last Assessment & Plan: Assessment: -pain well controlled PLAN: -wean SEROLOGIST as able Post-operative state 05/21/2018 07/24/2018 Last Assessment & Plan: Assessment: -POD 10 Hartmanns reversal c/b post op ileus and intrabdominal fluid collection PLAN: -removed NGT -encourage ambulation -incentive spirometry Diverticulitis 05/20/2018 07/24/2018 Last Assessment & Plan: S/P Alfred's reversal. Minor emesis. Awaiting ROBF Colostomy present 12/17/2017 05/21/2018 Post-op pain 11/05/2017 03/27/2019 Last Assessment & Plan: Assessment: -well controlled PLAN: -continue multimodal pain regimen Hypokalemia 11/02/2017 11/05/2017 Patient has nasogastric tube 10/30/2017 PICC (peripherally inserted central catheter) in place 10/30/2017 11/05/2017 On total parenteral nutrition (TPN) 10/30/2017 11/05/[address] 10/30/2017 05/21/2018 Encounter for ostomy care education 10/30/2017 07/24/2018 Nausea 10/30/2017 11/05/2017 Encounter for nasogastric tube placement 018 11/05/2017 Hypocalcemia 10/25/2017 11/05/2017 Malnutrition of mild degree 10/25/201707/05 Last Assessment & Plan: Assessment: -per room attendants assessment PLAN: -discuss parenteral nutrition if prolonged NPO status Elevated serum creatinine 10/24/20172017 Hyponatremia 10/24/2017 10/25/2017 Abdominal distention 10/24/2017 11/05/2017 Superficial thrombophlebitis of both upper extre mities 10/24/2017 01/09/2018 Leukocytosis 10/22/2017 11/05/2017 Abdominal pain 10/22/2017 11/26/2017 Ileus 10/22/2017 11/05/2017 Diverticulitis 10/18/2017 04/29/2018 Iliotibial band syndrome, left leg 06/17/2017 07/24/2018 Cervicalgia 04/30/2014 04/29/2018 Lumbar radiculopathy 07/16/2013 07/04/2017 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 018 Piriformis syndrome of left side 01/23/2013 07/04/2017 Trochanteric bursitis of left hip 01/23/2013 01/09/2018 Dyspnea 09/10/2012 07/04/2017 Neurocirculatory asthenia 09/10/20122016 Chronic shoulder pain 03/07/2012 06/12/2018 Hemorrhage of gastrointestinal tract, unspecifie d 03/15/2009 07/13/2016 Other and unspecified noninf ectious gastroenteritis and colitis(558.9) 12/15/2008 07/13/2016 Excessive or frequent menstruation 09/01/2008 10/20/2008 Urethrocele(618.03) 07/17/2008 10/20/2008 Acute sinusitis, unspecified 07/15/2007 Headache(784.0) 07/12/2007 03/16/2016 Mild dysplasia of cervix 04/19/2007 016 Irregular menstrual cycle 04/19/20072008 Postcoital bleeding 04/19/2007 10/20/2008 Dyspareunia 04/19/2007 03/16/2016 Cystocele, midline 04/19/2007 10/20/2008 Female stress incontinence 04/19/200710/20 Urgency of urination 04/19/2007 03/16/2016 Mononeuritis 06/29/2006 01/09/2018 documented as of this encounter (statuses as of 03/09/2023) [facility] History of Past illness Narrative* Problem Noted Date Diagnosed Date Resolved Date Chronic hypoxemic respiratory failure 09/06/2021 03/20/2022 Hypoxia 06/13/2021 03/20/2022 Systemic infection 06/12/2018 8 Intra-abdominal fluid collection 05/28/2018 06/03/2018 Last Assessment & Plan: Assessment: -loculated presacral fluid collection seen on CT 05/28/2018 PLAN: -drain placed -trend output Postoperative ileus 05/27/2018 06/03/20 Last Assessment & Plan: Assessment: -NGT output decreased -passing BM PLAN: -remove NGT Pain managed using patient-c ontrolled analgesia (SEROLOGIST) 05/22/2018 05/23/2018 Last Assessment & Plan: Assessment: -pain well controlled PLAN: -wean SEROLOGIST as able Post-operative state 05/21/2018 018 Last Assessment & Plan: Assessment: -POD 10 Hartmanns reversal c/b post op ileus and intrabdominal fluid collection PLAN: -removed NGT -encourage ambulation -incentive spirometry Diverticulitis 05/20/2018 07/24/2018 Last Assessment & Plan: S/P Alfred's reversal. Minor emesis. Awaiting ROBF Colostomy present 12/17/2017 05/21/2018 Post-op pain 11/05/2017 03/27/2019 Last Assessment & Plan: Assessment: -well controlled PLAN: -continue multimodal pain regimen Hypokalemia 11/02/2017 11/05/2017 Patient has nasogastric tube 10/30/2017 10/30/2017 PICC (peripherally inserted central catheter) in place 10/30/2017 11/05/2017 On total parenteral nutrition (TPN) 10/30/2017 11/05/[address] 10/30/2017 8 Encounter for ostomy care education 10/30/2017 07/24/2018 Nausea 10/30/2017 11/05/2017 Encounter for nasogastric tube placement 10/25/2017 11/05/2017 Hypocalcemia 10/25/2017 11/05/2017 Malnutrition of mild degree 10/25/2017 07/24/2018 Last Assessment & Plan: Assessment: -per room attendants assessment PLAN: -discuss parenteral nutrition if prolonged NPO status Elevated serum creatinine 10/24/2017 Hyponatremia 10/24/2017 10/25/2017 Abdominal distention 10/24/2017 018 Superficial thrombophlebitis of both upper extremities 10/24/2017 01/09/2018 Leukocytosis 10/22/2017 11/05/2017 Abdominal pain 10/22/2017 11/26/2017 Ileus 10/22/2017 11/05/2017 Diverticulitis 10/18/2017 04/29/2018 Iliotibial band syndrome, left leg 06/17/2017 07/24/2018 Cervicalgia 04/30/2014 04/29/2018 Lumbar radiculopathy 07/16/2013 017 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05/2018 Piriformis syndrome of left side 01/23/2013 07/04/2017 Trochanteric bursitis of left hip 01/23/2013 01/09/2018 Dyspnea 09/10/2012 07/04/2017 Neurocirculatory asthenia 09/10/2012 Chronic shoulder pain 03/07/20122017 Hemorrhage of gastrointestin al tract, unspecified 03/15/2009 07/13/2016 Other and unspecified noninf ectious gastroenteritis and colitis(558.9) 12/15/200807/13 Excessive or frequent menstruation 09/01/2008 10/20/2008 Urethrocele(618.03) 07/17/2008 10/20/19 09 Acute sinusitis, unspecified 07/15/2007 03/16/2016 Headache(784.0) 07/12/2007 03/16/2016 Mild dysplasia of cervix 04/19/2007 Irregular menstrual cycle 04/19/2007 Postcoital bleeding 04/19/2007 10/20/19 09 Dyspareunia 04/19/2007 03/16/2016 Cystocele, midline 04/19/2007 9 Female stress incontinence 04/19/2007 0 10/20/2008 Urgency of urination 04/19/2007 016 Mononeuritis 06/29/2006 01/09/2018 documented as of this encounter (statuses as of 03/26/2023) [facility] History of Past illness Narrative* Problem Noted Date Diagnosed Date Resolved Date Chronic hypoxemic respiratory failure 09/06/2021 03/20/2022 Hypoxia 06/13/2021 03/20/2022 Systemic infection 06/12/2018 8 Intra-abdominal fluid collection 05/28/2018 06/03/2018 Last Assessment & Plan: Assessment: -loculated presacral fluid collection seen on CT 05/28/2018 PLAN: -drain placed -trend output Postoperative ileus 05/27/2018 06/03/20 Last Assessment & Plan: Assessment: -NGT output decreased -passing BM PLAN: -remove NGT Pain managed using patient-c ontrolled analgesia (SEROLOGIST) 05/22/2018 05/23/2018 Last Assessment & Plan: Assessment: -pain well controlled PLAN: -wean SEROLOGIST as able Post-operative state 05/21/2018 018 Last Assessment & Plan: Assessment: -POD 10 Hartmanns reversal c/b post op ileus and intrabdominal fluid collection PLAN: -removed NGT -encourage ambulation -incentive spirometry Diverticulitis 05/20/2018 07/24/2018 Last Assessment & Plan: S/P Alfred's reversal. Minor emesis. Awaiting ROBF Colostomy present 12/17/2017 05/21/2018 Post-op pain 11/05/2017 03/27/2019 Last Assessment & Plan: Assessment: -well controlled PLAN: -continue multimodal pain regimen Hypokalemia 11/02/2017 11/05/2017 Patient has nasogastric tube 10/30/2017 10/30/2017 PICC (peripherally inserted central catheter) in place 10/30/2017 11/05/2017 On total parenteral nutrition (TPN) 10/30/2017 11/05/[address] 10/30/2017 8 Encounter for ostomy care education 10/30/2017 07/24/2018 Nausea 10/30/2017 11/05/2017 Encounter for nasogastric tube placement 10/25/2017 11/05/2017 Hypocalcemia 10/25/2017 11/05/2017 Malnutrition of mild degree 10/25/2017 07/24/2018 Last Assessment & Plan: Assessment: -per room attendants assessment PLAN: -discuss parenteral nutrition if prolonged NPO status Elevated serum creatinine 10/24/2017 Hyponatremia 10/24/2017 10/25/2017 Abdominal distention 10/24/2017 018 Superficial thrombophlebitis of both upper extremities 10/24/2017 01/09/2018 Leukocytosis 10/22/2017 11/05/2017 Abdominal pain 10/22/2017 11/26/2017 Ileus 10/22/2017 11/05/2017 Diverticulitis 10/18/2017 04/29/2018 Iliotibial band syndrome, left leg 06/17/2017 07/24/2018 Cervicalgia 04/30/2014 04/29/2018 Lumbar radiculopathy 07/16/2013 017 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05/2018 Piriformis syndrome of left side 01/23/2013 07/04/2017 Trochanteric bursitis of left hip 01/23/2013 01/09/2018 Dyspnea 09/10/2012 07/04/2017 Neurocirculatory asthenia 09/10/2012 Chronic shoulder pain 03/07/20122017 Hemorrhage of gastrointestin al tract, unspecified 03/15/2009 07/13/2016 Other and unspecified noninf ectious gastroenteritis and colitis(558.9) 12/15/200807/13 Excessive or frequent menstruation 09/01/2008 10/20/2008 Urethrocele(618.03) 07/17/2008 10/20/19 09 Acute sinusitis, unspecified 07/15/2007 03/16/2016 Headache(784.0) 07/12/2007 03/16/2016 Mild dysplasia of cervix 04/19/2007 Irregular menstrual cycle 04/19/2007 Postcoital bleeding 04/19/2007 10/20/19 09 Dyspareunia 04/19/2007 03/16/2016 Cystocele, midline 04/19/2007 9 Female stress incontinence 04/19/2007 0 10/20/2008 Urgency of urination 04/19/2007 016 Mononeuritis 06/29/2006 01/09/2018 documented as of this encounter (statuses as of 04/05/2023) [facility]01-04-[facility]22 History of Past illness Narrative* Problem Noted Date Diagnosed Date Resolved Date Chronic hypoxemic respiratory failure 09/06/2021 03/20/2022 Acute respiratory disease du e to COVID-19 virus 06/16/2021 04/24/2023 Overview: Seeing Dr. Babs Guerra Hypoxia 06/13/2021 03/20/2022 Systemic infection 06/12/2018 8 Intra-abdominal fluid collection 05/28/2018 06/03/2018 Last Assessment & Plan: Assessment: -loculated presacral fluid collection seen on CT 05/28/2018 PLAN: -drain placed -trend output Postoperative ileus 05/27/2018 06/03/20 18 Last Assessment & Plan: Assessment: -NGT output decreased -passing BM PLAN: -remove NGT Pain managed using patient-c ontrolled analgesia (SEROLOGIST) 05/22/2018 05/23/2018 Last Assessment & Plan: Assessment: -pain well controlled PLAN: -wean SEROLOGIST as able Post-operative state 05/21/2018 018 Last Assessment & Plan: Assessment: -POD 10 Hartmanns reversal c/b post op ileus and intrabdominal fluid collection PLAN: -removed NGT -encourage ambulation -incentive spirometry Diverticulitis 05/20/2018 07/24/2018 Last Assessment & Plan: S/P Alfred's reversal. Minor emesis. Awaiting ROBF Colostomy present 12/17/2017 05/21/2018 Post-op pain 11/05/2017 03/27/2019 Last Assessment & Plan: Assessment: -well controlled PLAN: -continue multimodal pain regimen Hypokalemia 11/02/2017 11/05/2017 Patient has nasogastric tube 10/30/2017 10/30/2017 PICC (peripherally inserted central catheter) in place 10/30/2017 11/05/2017 On total parenteral nutrition (TPN) 10/30/2017 11/05/[address] 10/30/2017 8 Encounter for ostomy care education 10/30/2017 07/24/2018 Nausea 10/30/2017 11/05/2017 Encounter for nasogastric tube placement 10/25/2017 11/05/2017 Hypocalcemia 10/25/2017 11/05/2017 Malnutrition of mild degree 10/25/2017 07/24/2018 Last Assessment & Plan: Assessment: -per room attendants assessment PLAN: -discuss parenteral nutrition if prolonged NPO status Elevated serum creatinine 10/24/2017 Hyponatremia 10/24/2017 10/25/2017 Abdominal distention 10/24/2017 018 Superficial thrombophlebitis of both upper extremities 10/24/2017 01/09/2018 Leukocytosis 10/22/2017 11/05/2017 Abdominal pain 10/22/2017 11/26/2017 Ileus 10/22/2017 11/05/2017 Diverticulitis 10/18/2017 04/29/2018 Iliotibial band syndrome, left leg 06/17/2017 07/24/2018 Cervicalgia 04/30/2014 04/29/2018 Lumbar radiculopathy 07/16/2013 017 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05/2018 Piriformis syndrome of left side 01/23/2013 07/04/2017 Trochanteric bursitis of left hip 01/23/2013 01/09/2018 Dyspnea 09/10/2012 07/04/2017 Neurocirculatory asthenia 09/10/2012 Chronic shoulder pain 03/07/20122017 Hemorrhage of gastrointestin al tract, unspecified 03/15/2009 07/13/2016 Other and unspecified noninf ectious gastroenteritis and colitis(558.9) 12/15/200807/13 Excessive or frequent menstruation 09/01/2008 10/20/2008 Urethrocele(618.03) 07/17/2008 10/20/19 09 Acute sinusitis, unspecified 07/15/2007 03/16/2016 Headache(784.0) 07/12/2007 03/16/2016 Mild dysplasia of cervix 04/19/2007 Irregular menstrual cycle 04/19/2007 Postcoital bleeding 04/19/2007 10/20/19 09 Dyspareunia 04/19/2007 03/16/2016 Cystocele, midline 04/19/2007 9 Female stress incontinence 04/19/2007 0 10/20/2008 Urgency of urination 04/19/2007 016 Mononeuritis 06/29/2006 01/09/2018 documented as of this encounter (statuses as of 04/24/2023) [facility] History of Past illness Narrative* Problem Noted Date Diagnosed Date Resolved Date Chronic hypoxemic respiratory failure 09/06/2021 03/20/2022 Acute respiratory disease du e to COVID-19 virus 06/16/2021 04/24/2023 Overview: Seeing Dr. Babs Guerra Hypoxia 06/13/2021 03/20/2022 Systemic infection 06/12/2018 8 Intra-abdominal fluid collection 05/28/2018 06/03/2018 Last Assessment & Plan: Assessment: -loculated presacral fluid collection seen on CT 05/28/2018 PLAN: -drain placed -trend output Postoperative ileus 05/27/2018 06/03/20 18 Last Assessment & Plan: Assessment: -NGT output decreased -passing BM PLAN: -remove NGT Pain managed using patient-c ontrolled analgesia (SEROLOGIST) 05/22/2018 05/23/2018 Last Assessment & Plan: Assessment: -pain well controlled PLAN: -wean SEROLOGIST as able Post-operative state 05/21/2018 018 Last Assessment & Plan: Assessment: -POD 10 Hartmanns reversal c/b post op ileus and intrabdominal fluid collection PLAN: -removed NGT -encourage ambulation -incentive spirometry Diverticulitis 05/20/2018 07/24/2018 Last Assessment & Plan: S/P Alfred's reversal. Minor emesis. Awaiting ROBF Colostomy present 12/17/2017 05/21/2018 Post-op pain 11/05/2017 03/27/2019 Last Assessment & Plan: Assessment: -well controlled PLAN: -continue multimodal pain regimen Hypokalemia 11/02/2017 11/05/2017 Patient has nasogastric tube 10/30/2017 10/30/2017 PICC (peripherally inserted central catheter) in place 10/30/2017 11/05/2017 On total parenteral nutrition (TPN) 10/30/2017 11/05/[address] 10/30/2017 8 Encounter for ostomy care education 10/30/2017 07/24/2018 Nausea 10/30/2017 11/05/2017 Encounter for nasogastric tube placement 10/25/2017 11/05/2017 Hypocalcemia 10/25/2017 11/05/2017 Malnutrition of mild degree 10/25/2017 07/24/2018 Last Assessment & Plan: Assessment: -per room attendants assessment PLAN: -discuss parenteral nutrition if prolonged NPO status Elevated serum creatinine 10/24/2017 Hyponatremia 10/24/2017 10/25/2017 Abdominal distention 10/24/2017 018 Superficial thrombophlebitis of both upper extremities 10/24/2017 01/09/2018 Leukocytosis 10/22/2017 11/05/2017 Abdominal pain 10/22/2017 11/26/2017 Ileus 10/22/2017 11/05/2017 Diverticulitis 10/18/2017 04/29/2018 Iliotibial band syndrome, left leg 06/17/2017 07/24/2018 Cervicalgia 04/30/2014 04/29/2018 Lumbar radiculopathy 07/16/2013 017 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05/2018 Piriformis syndrome of left side 01/23/2013 07/04/2017 Trochanteric bursitis of left hip 01/23/2013 01/09/2018 Dyspnea 09/10/2012 07/04/2017 Neurocirculatory asthenia 09/10/2012 Chronic shoulder pain 03/07/20122017 Hemorrhage of gastrointestin al tract, unspecified 03/15/2009 07/13/2016 Other and unspecified noninf ectious gastroenteritis and colitis(558.9) 12/15/200807/13 Excessive or frequent menstruation 09/01/2008 10/20/2008 Urethrocele(618.03) 07/17/2008 10/20/19 09 Acute sinusitis, unspecified 07/15/2007 03/16/2016 Headache(784.0) 07/12/2007 03/16/2016 Mild dysplasia of cervix 04/19/2007 Irregular menstrual cycle 04/19/2007 Postcoital bleeding 04/19/2007 10/20/19 09 Dyspareunia 04/19/2007 03/16/2016 Cystocele, midline 04/19/2007 9 Female stress incontinence 04/19/2007 0 10/20/2008 Urgency of urination 04/19/2007 016 Mononeuritis 06/29/2006 01/09/2018 documented as of this encounter (statuses as of 04/24/2023) [facility] History of Past illness Narrative* Problem Noted Date Diagnosed Date Resolved Date Chronic hypoxemic respiratory failure 09/06/2021 03/20/2022 Acute respiratory disease du e to COVID-19 virus 06/16/2021 04/24/2023 Overview: Seeing Dr. Babs Guerra Hypoxia 06/13/2021 03/20/2022 Systemic infection 06/12/2018 8 Intra-abdominal fluid collection 05/28/2018 06/03/2018 Last Assessment & Plan: Assessment: -loculated presacral fluid collection seen on CT 05/28/2018 PLAN: -drain placed -trend output Postoperative ileus 05/27/2018 06/03/20 Last Assessment & Plan: Assessment: -NGT output decreased -passing BM PLAN: -remove NGT Pain managed using patient-c ontrolled analgesia (SEROLOGIST) 05/22/2018 05/23/2018 Last Assessment & Plan: Assessment: -pain well controlled PLAN: -wean SEROLOGIST as able Post-operative state 05/21/2018 018 Last Assessment & Plan: Assessment: -POD 10 Hartmanns reversal c/b post op ileus and intrabdominal fluid collection PLAN: -removed NGT -encourage ambulation -incentive spirometry Diverticulitis 05/20/2018 07/24/2018 Last Assessment & Plan: S/P Alfred's reversal. Minor emesis. Awaiting ROBF Colostomy present 12/17/2017 05/21/2018 Post-op pain 11/05/2017 03/27/2019 Last Assessment & Plan: Assessment: -well controlled PLAN: -continue multimodal pain regimen Hypokalemia 11/02/2017 11/05/2017 Patient has nasogastric tube 10/30/2017 10/30/2017 PICC (peripherally inserted central catheter) in place 10/30/2017 11/05/2017 On total parenteral nutrition (TPN) 10/30/2017 11/05/[address] 10/30/2017 8 Encounter for ostomy care education 10/30/2017 07/24/2018 Nausea 10/30/2017 11/05/2017 Encounter for nasogastric tube placement 10/25/2017 11/05/2017 Hypocalcemia 10/25/2017 11/05/2017 Malnutrition of mild degree 10/25/2017 07/24/2018 Last Assessment & Plan: Assessment: -per room attendants assessment PLAN: -discuss parenteral nutrition if prolonged NPO status Elevated serum creatinine 10/24/2017 Hyponatremia 10/24/2017 10/25/2017 Abdominal distention 10/24/2017 018 Superficial thrombophlebitis of both upper extremities 10/24/2017 01/09/2018 Leukocytosis 10/22/2017 11/05/2017 Abdominal pain 10/22/2017 11/26/2017 Ileus 10/22/2017 11/05/2017 Diverticulitis 10/18/2017 04/29/2018 Iliotibial band syndrome, left leg 06/17/2017 07/24/2018 Cervicalgia 04/30/2014 04/29/2018 Lumbar radiculopathy 07/16/2013 017 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05/2018 Piriformis syndrome of left side 01/23/2013 07/04/2017 Trochanteric bursitis of left hip 01/23/2013 01/09/2018 Dyspnea 09/10/2012 07/04/2017 Neurocirculatory asthenia 09/10/2012 Chronic shoulder pain 03/07/20122017 Hemorrhage of gastrointestin al tract, unspecified 03/15/2009 07/13/2016 Other and unspecified noninf ectious gastroenteritis and colitis(558.9) 12/15/200807/13 Excessive or frequent menstruation 09/01/2008 10/20/2008 Urethrocele(618.03) 07/17/2008 10/20/19 09 Acute sinusitis, unspecified 07/15/2007 03/16/2016 Headache(784.0) 07/12/2007 03/16/2016 Mild dysplasia of cervix 04/19/2007 Irregular menstrual cycle 04/19/2007 Postcoital bleeding 04/19/2007 10/20/19 09 Dyspareunia 04/19/2007 03/16/2016 Cystocele, midline 04/19/2007 9 Female stress incontinence 04/19/2007 0 10/20/2008 Urgency of urination 04/19/2007 016 Mononeuritis 06/29/2006 01/09/2018 documented as of this encounter (statuses as of 04/26/2023) [facility]01-[facility] History of Past illness Narrative* Problem Noted Date Diagnosed Date Resolved Date Chronic hypoxemic respiratory failure 09/06/2021 03/20/2022 Acute respiratory disease du e to COVID-19 virus 06/16/2021 04/24/2023 Overview: Seeing Dr. Babs Guerra Hypoxia 06/13/2021 03/20/2022 Systemic infection 06/12/2018 8 Intra-abdominal fluid collection 05/28/2018 06/03/2018 Last Assessment & Plan: Assessment: -loculated presacral fluid collection seen on CT 05/28/2018 PLAN: -drain placed -trend output Postoperative ileus 05/27/2018 06/03/20 Last Assessment & Plan: Assessment: -NGT output decreased -passing BM PLAN: -remove NGT Pain managed using patient-c ontrolled analgesia (SEROLOGIST) 05/22/2018 05/23/2018 Last Assessment & Plan: Assessment: -pain well controlled PLAN: -wean SEROLOGIST as able Post-operative state 05/21/2018 018 Last Assessment & Plan: Assessment: -POD 10 Hartmanns reversal c/b post op ileus and intrabdominal fluid collection PLAN: -removed NGT -encourage ambulation -incentive spirometry Diverticulitis 05/20/2018 07/24/2018 Last Assessment & Plan: S/P Alfred's reversal. Minor emesis. Awaiting ROBF Colostomy present 12/17/2017 05/21/2018 Post-op pain 11/05/2017 03/27/2019 Last Assessment & Plan: Assessment: -well controlled PLAN: -continue multimodal pain regimen Hypokalemia 11/02/2017 11/05/2017 Patient has nasogastric tube 10/30/2017 10/30/2017 PICC (peripherally inserted central catheter) in place 10/30/2017 11/05/2017 On total parenteral nutrition (TPN) 10/30/2017 11/05/[address] 10/30/2017 8 Encounter for ostomy care education 10/30/2017 07/24/2018 Nausea 10/30/2017 11/05/2017 Encounter for nasogastric tube placement 10/25/2017 11/05/2017 Hypocalcemia 10/25/2017 11/05/2017 Malnutrition of mild degree 10/25/2017 07/24/2018 Last Assessment & Plan: Assessment: -per room attendants assessment PLAN: -discuss parenteral nutrition if prolonged NPO status Elevated serum creatinine 10/24/2017 Hyponatremia 10/24/2017 10/25/2017 Abdominal distention 10/24/2017 018 Superficial thrombophlebitis of both upper extremities 10/24/2017 01/09/2018 Leukocytosis 10/22/2017 11/05/2017 Abdominal pain 10/22/2017 11/26/2017 Ileus 10/22/2017 11/05/2017 Diverticulitis 10/18/2017 04/29/2018 Iliotibial band syndrome, left leg 06/17/2017 07/24/2018 Cervicalgia 04/30/2014 04/29/2018 Lumbar radiculopathy 07/16/2013 017 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05/2018 Piriformis syndrome of left side 01/23/2013 07/04/2017 Trochanteric bursitis of left hip 01/23/2013 01/09/2018 Dyspnea 09/10/2012 07/04/2017 Neurocirculatory asthenia 09/10/2012 Chronic shoulder pain 03/07/20122017 Hemorrhage of gastrointestin al tract, unspecified 03/15/2009 07/13/2016 Other and unspecified noninf ectious gastroenteritis and colitis(558.9) 12/15/200807/13 Excessive or frequent menstruation 09/01/2008 10/20/2008 Urethrocele(618.03) 07/17/2008 10/20/19 09 Acute sinusitis, unspecified 07/15/2007 03/16/2016 Headache(784.0) 07/12/2007 03/16/2016 Mild dysplasia of cervix 04/19/2007 Irregular menstrual cycle 04/19/2007 Postcoital bleeding 04/19/2007 10/20/19 09 Dyspareunia 04/19/2007 03/16/2016 Cystocele, midline 04/19/2007 02/17/200 9 Female stress incontinence 04/19/2007 0 10/20/2008 Urgency of urination 04/19/2007 016 Mononeuritis 06/29/2006 01/09/2018 documented as of this encounter (statuses as of 05/03/2023) [facility]01[facility] History of Past illness Narrative* Problem Noted Date Diagnosed Date Resolved Date Chronic hypoxemic respiratory failure 09/06/2021 03/20/2022 Acute respiratory disease du e to COVID-19 virus 06/16/2021 04/24/2023 Overview: Seeing Dr. Babs Guerra Hypoxia 06/13/2021 03/20/2022 Systemic infection 06/12/2018 8 Intra-abdominal fluid collection 05/28/2018 06/03/2018 Last Assessment & Plan: Assessment: -loculated presacral fluid collection seen on CT 05/28/2018 PLAN: -drain placed -trend output Postoperative ileus 05/27/2018 06/03/20 18 Last Assessment & Plan: Assessment: -NGT output decreased -passing BM PLAN: -remove NGT Pain managed using patient-c ontrolled analgesia (SEROLOGIST) 05/22/2018 05/23/2018 Last Assessment & Plan: Assessment: -pain well controlled PLAN: -wean SEROLOGIST as able Post-operative state 05/21/2018 018 Last Assessment & Plan: Assessment: -POD 10 Hartmanns reversal c/b post op ileus and intrabdominal fluid collection PLAN: -removed NGT -encourage ambulation -incentive spirometry Diverticulitis 05/20/2018 07/24/2018 Last Assessment & Plan: S/P Alfred's reversal. Minor emesis. Awaiting ROBF Colostomy present 12/17/2017 05/21/2018 Post-op pain 11/05/2017 03/27/2019 Last Assessment & Plan: Assessment: -well controlled PLAN: -continue multimodal pain regimen Hypokalemia 11/02/2017 11/05/2017 Patient has nasogastric tube 10/30/2017 10/30/2017 PICC (peripherally inserted central catheter) in place 10/30/2017 11/05/2017 On total parenteral nutrition (TPN) 10/30/2017 11/05/[address] 10/30/2017 8 Encounter for ostomy care education 10/30/2017 07/24/2018 Nausea 10/30/2017 11/05/2017 Encounter for nasogastric tube placement 10/25/2017 11/05/2017 Hypocalcemia 10/25/2017 11/05/2017 Malnutrition of mild degree 10/25/2017 07/24/2018 Last Assessment & Plan: Assessment: -per room attendants assessment PLAN: -discuss parenteral nutrition if prolonged NPO status Elevated serum creatinine 10/24/2017 Hyponatremia 10/24/2017 10/25/2017 Abdominal distention 10/24/2017 018 Superficial thrombophlebitis of both upper extremities 10/24/2017 01/09/2018 Leukocytosis 10/22/2017 11/05/2017 Abdominal pain 10/22/2017 11/26/2017 Ileus 10/22/2017 11/05/2017 Diverticulitis 10/18/2017 04/29/2018 Iliotibial band syndrome, left leg 06/17/2017 07/24/2018 Cervicalgia 04/30/2014 04/29/2018 Lumbar radiculopathy 07/16/2013 017 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05/2018 Piriformis syndrome of left side 01/23/2013 07/04/2017 Trochanteric bursitis of left hip 01/23/2013 01/09/2018 Dyspnea 09/10/2012 07/04/2017 Neurocirculatory asthenia 09/10/2012 Chronic shoulder pain 03/07/20122017 Hemorrhage of gastrointestin al tract, unspecified 03/15/2009 07/13/2016 Other and unspecified noninf ectious gastroenteritis and colitis(558.9) 12/15/200807/13 Excessive or frequent menstruation 09/01/2008 10/20/2008 Urethrocele(618.03) 07/17/2008 10/20/19 09 Acute sinusitis, unspecified 07/15/2007 03/16/2016 Headache(784.0) 07/12/2007 03/16/2016 Mild dysplasia of cervix 04/19/2007 Irregular menstrual cycle 04/19/2007 Postcoital bleeding 04/19/2007 10/20/19 09 Dyspareunia 04/19/2007 03/16/2016 Cystocele, midline 04/19/2007 9 Female stress incontinence 04/19/2007 0 10/20/2008 Urgency of urination 04/19/2007 016 Mononeuritis 06/29/2006 01/09/2018 documented as of this encounter (statuses as of 05/18/2023) [facility] History of Past illness Narrative* Problem Noted Date Diagnosed Date Resolved Date Chronic hypoxemic respiratory failure 09/06/2021 03/20/2022 Acute respiratory disease du e to COVID-19 virus 06/16/2021 04/24/2023 Overview: Seeing Dr. Babs Guerra Hypoxia 06/13/2021 03/20/2022 Systemic infection 06/12/2018 8 Intra-abdominal fluid collection 05/28/2018 06/03/2018 Last Assessment & Plan: Assessment: -loculated presacral fluid collection seen on CT 05/28/2018 PLAN: -drain placed -trend output Postoperative ileus 05/27/2018 06/03/20 18 Last Assessment & Plan: Assessment: -NGT output decreased -passing BM PLAN: -remove NGT Pain managed using patient-c ontrolled analgesia (SEROLOGIST) 05/22/2018 05/23/2018 Last Assessment & Plan: Assessment: -pain well controlled PLAN: -wean SEROLOGIST as able Post-operative state 05/21/2018 018 Last Assessment & Plan: Assessment: -POD 10 Hartmanns reversal c/b post op ileus and intrabdominal fluid collection PLAN: -removed NGT -encourage ambulation -incentive spirometry Diverticulitis 05/20/2018 07/24/2018 Last Assessment & Plan: S/P Alfred's reversal. Minor emesis. Awaiting ROBF Colostomy present 12/17/2017 05/21/2018 Post-op pain 11/05/2017 03/27/2019 Last Assessment & Plan: Assessment: -well controlled PLAN: -continue multimodal pain regimen Hypokalemia 11/02/2017 11/05/2017 Patient has nasogastric tube 10/30/2017 10/30/2017 PICC (peripherally inserted central catheter) in place 10/30/2017 11/05/2017 On total parenteral nutrition (TPN) 10/30/2017 11/05/[address] 10/30/2017 8 Encounter for ostomy care education 10/30/2017 07/24/2018 Nausea 10/30/2017 11/05/2017 Encounter for nasogastric tube placement 10/25/2017 11/05/2017 Hypocalcemia 10/25/2017 11/05/2017 Malnutrition of mild degree 10/25/2017 07/24/2018 Last Assessment & Plan: Assessment: -per room attendants assessment PLAN: -discuss parenteral nutrition if prolonged NPO status Elevated serum creatinine 10/24/2017 Hyponatremia 10/24/2017 10/25/2017 Abdominal distention 10/24/2017 018 Superficial thrombophlebitis of both upper extremities 10/24/2017 01/09/2018 Leukocytosis 10/22/2017 11/05/2017 Abdominal pain 10/22/2017 11/26/2017 Ileus 10/22/2017 11/05/2017 Diverticulitis 10/18/2017 04/29/2018 Iliotibial band syndrome, left leg 06/17/2017 07/24/2018 Cervicalgia 04/30/2014 04/29/2018 Lumbar radiculopathy 07/16/2013 017 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05/2018 Piriformis syndrome of left side 01/23/2013 07/04/2017 Trochanteric bursitis of left hip 01/23/2013 01/09/2018 Dyspnea 09/10/2012 07/04/2017 Neurocirculatory asthenia 09/10/2012 Chronic shoulder pain 03/07/20122017 Hemorrhage of gastrointestin al tract, unspecified 03/15/2009 07/13/2016 Other and unspecified noninf ectious gastroenteritis and colitis(558.9) 12/15/200807/13 Excessive or frequent menstruation 09/01/2008 10/20/2008 Urethrocele(618.03) 07/17/2008 10/20/19 09 Acute sinusitis, unspecified 07/15/2007 03/16/2016 Headache(784.0) 07/12/2007 03/16/2016 Mild dysplasia of cervix 04/19/2007 Irregular menstrual cycle 04/19/2007 Postcoital bleeding 04/19/2007 10/20/19 09 Dyspareunia 04/19/2007 03/16/2016 Cystocele, midline 04/19/2007 9 Female stress incontinence 04/19/2007 0 10/20/2008 Urgency of urination 04/19/2007 016 Mononeuritis 06/29/2006 01/09/2018 documented as of this encounter (statuses as of 05/22/2023) [facility] History of Past illness Narrative* Problem Noted Date Diagnosed Date Resolved Date Chronic hypoxemic respiratory failure 09/06/2021 03/20/2022 Acute respiratory disease du e to COVID-19 virus 06/16/2021 04/24/2023 Overview: Seeing Dr. Babs Guerra Hypoxia 06/13/2021 03/20/2022 Systemic infection 06/12/2018 8 Intra-abdominal fluid collection 05/28/2018 06/03/2018 Last Assessment & Plan: Assessment: -loculated presacral fluid collection seen on CT 05/28/2018 PLAN: -drain placed -trend output Postoperative ileus 05/27/2018 06/03/20 18 Last Assessment & Plan: Assessment: -NGT output decreased -passing BM PLAN: -remove NGT Pain managed using patient-c ontrolled analgesia (SEROLOGIST) 05/22/2018 05/23/2018 Last Assessment & Plan: Assessment: -pain well controlled PLAN: -wean SEROLOGIST as able Post-operative state 05/21/2018 018 Last Assessment & Plan: Assessment: -POD 10 Hartmanns reversal c/b post op ileus and intrabdominal fluid collection PLAN: -removed NGT -encourage ambulation -incentive spirometry Diverticulitis 05/20/2018 07/24/2018 Last Assessment & Plan: S/P Alfred's reversal. Minor emesis. Awaiting ROBF Colostomy present 12/17/2017 05/21/2018 Post-op pain 11/05/2017 03/27/2019 Last Assessment & Plan: Assessment: -well controlled PLAN: -continue multimodal pain regimen Hypokalemia 11/02/2017 11/05/2017 Patient has nasogastric tube 10/30/2017 10/30/2017 PICC (peripherally inserted central catheter) in place 10/30/2017 11/05/2017 On total parenteral nutrition (TPN) 10/30/2017 11/05/[address] 10/30/2017 8 Encounter for ostomy care education 10/30/2017 07/24/2018 Nausea 10/30/2017 11/05/2017 Encounter for nasogastric tube placement 10/25/2017 11/05/2017 Hypocalcemia 10/25/2017 11/05/2017 Malnutrition of mild degree 10/25/2017 07/24/2018 Last Assessment & Plan: Assessment: -per room attendants assessment PLAN: -discuss parenteral nutrition if prolonged NPO status Elevated serum creatinine 10/24/2017 Hyponatremia 10/24/2017 10/25/2017 Abdominal distention 10/24/2017 018 Superficial thrombophlebitis of both upper extremities 10/24/2017 01/09/2018 Leukocytosis 10/22/2017 11/05/2017 Abdominal pain 10/22/2017 11/26/2017 Ileus 10/22/2017 11/05/2017 Diverticulitis 10/18/2017 04/29/2018 Iliotibial band syndrome, left leg 06/17/2017 07/24/2018 Cervicalgia 04/30/2014 04/29/2018 Lumbar radiculopathy 07/16/2013 017 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05/2018 Piriformis syndrome of left side 01/23/2013 07/04/2017 Trochanteric bursitis of left hip 01/23/2013 01/09/2018 Dyspnea 09/10/2012 07/04/2017 Neurocirculatory asthenia 09/10/2012 Chronic shoulder pain 03/07/20122017 Hemorrhage of gastrointestin al tract, unspecified 03/15/2009 07/13/2016 Other and unspecified noninf ectious gastroenteritis and colitis(558.9) 12/15/200807/13 Excessive or frequent menstruation 09/01/2008 10/20/2008 Urethrocele(618.03) 07/17/2008 10/20/19 09 Acute sinusitis, unspecified 07/15/2007 03/16/2016 Headache(784.0) 07/12/2007 03/16/2016 Mild dysplasia of cervix 04/19/2007 Irregular menstrual cycle 04/19/2007 Postcoital bleeding 04/19/2007 10/20/19 09 Dyspareunia 04/19/2007 03/16/2016 Cystocele, midline 04/19/2007 9 Female stress incontinence 04/19/2007 0 10/20/2008 Urgency of urination 04/19/2007 016 Mononeuritis 06/29/2006 01/09/2018 documented as of this encounter (statuses as of 05/25/2023) [facility]01-04-[facility]22 History of Past illness Narrative* Problem Noted Date Diagnosed Date Resolved Date Chronic hypoxemic respiratory failure 09/06/2021 03/20/2022 Acute respiratory disease du e to COVID-19 virus 06/16/2021 04/24/2023 Overview: Seeing Dr. Babs Guerra Hypoxia 06/13/2021 03/20/2022 Systemic infection 06/12/2018 8 Intra-abdominal fluid collection 05/28/2018 06/03/2018 Last Assessment & Plan: Assessment: -loculated presacral fluid collection seen on CT 05/28/2018 PLAN: -drain placed -trend output Postoperative ileus 05/27/2018 06/03/20 Last Assessment & Plan: Assessment: -NGT output decreased -passing BM PLAN: -remove NGT Pain managed using patient-c ontrolled analgesia (SEROLOGIST) 05/22/2018 05/23/2018 Last Assessment & Plan: Assessment: -pain well controlled PLAN: -wean SEROLOGIST as able Post-operative state 05/21/2018 018 Last Assessment & Plan: Assessment: -POD 10 Hartmanns reversal c/b post op ileus and intrabdominal fluid collection PLAN: -removed NGT -encourage ambulation -incentive spirometry Diverticulitis 05/20/2018 07/24/2018 Last Assessment & Plan: S/P Alfred's reversal. Minor emesis. Awaiting ROBF Colostomy present 12/17/2017 05/21/2018 Post-op pain 11/05/2017 03/27/2019 Last Assessment & Plan: Assessment: -well controlled PLAN: -continue multimodal pain regimen Hypokalemia 11/02/2017 11/05/2017 Patient has nasogastric tube 10/30/2017 10/30/2017 PICC (peripherally inserted central catheter) in place 10/30/2017 11/05/2017 On total parenteral nutrition (TPN) 10/30/2017 11/05/[address] 10/30/2017 8 Encounter for ostomy care education 10/30/2017 07/24/2018 Nausea 10/30/2017 11/05/2017 Encounter for nasogastric tube placement 10/25/2017 11/05/2017 Hypocalcemia 10/25/2017 11/05/2017 Malnutrition of mild degree 10/25/2017 07/24/2018 Last Assessment & Plan: Assessment: -per room attendants assessment PLAN: -discuss parenteral nutrition if prolonged NPO status Elevated serum creatinine 10/24/2017 Hyponatremia 10/24/2017 10/25/2017 Abdominal distention 10/24/2017 018 Superficial thrombophlebitis of both upper extremities 10/24/2017 01/09/2018 Leukocytosis 10/22/2017 11/05/2017 Abdominal pain 10/22/2017 11/26/2017 Ileus 10/22/2017 11/05/2017 Diverticulitis 10/18/2017 04/29/2018 Iliotibial band syndrome, left leg 06/17/2017 07/24/2018 Cervicalgia 04/30/2014 04/29/2018 Lumbar radiculopathy 07/16/2013 017 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05/2018 Piriformis syndrome of left side 01/23/2013 07/04/2017 Trochanteric bursitis of left hip 01/23/2013 01/09/2018 Dyspnea 09/10/2012 07/04/2017 Neurocirculatory asthenia 09/10/2012 Chronic shoulder pain 03/07/20122017 Hemorrhage of gastrointestin al tract, unspecified 03/15/2009 07/13/2016 Other and unspecified noninf ectious gastroenteritis and colitis(558.9) 12/15/200807/13 Excessive or frequent menstruation 09/01/2008 10/20/2008 Urethrocele(618.03) 07/17/2008 10/20/19 09 Acute sinusitis, unspecified 07/15/2007 03/16/2016 Headache(784.0) 07/12/2007 03/16/2016 Mild dysplasia of cervix 04/19/2007 Irregular menstrual cycle 04/19/2007 Postcoital bleeding 04/19/2007 10/20/19 09 Dyspareunia 04/19/2007 03/16/2016 Cystocele, midline 04/19/2007 9 Female stress incontinence 04/19/2007 0 10/20/2008 Urgency of urination 04/19/2007 016 Mononeuritis 06/29/2006 01/09/2018 documented as of this encounter (statuses as of 05/28/2023) [facility] History of Past illness Narrative* Problem Noted Date Diagnosed Date Resolved Date Chronic hypoxemic respiratory failure 09/06/2021 03/20/2022 Acute respiratory disease du e to COVID-19 virus 06/16/2021 04/24/2023 Overview: Seeing Dr. Babs Guerra Hypoxia 06/13/2021 03/20/2022 Systemic infection 06/12/2018 8 Intra-abdominal fluid collection 05/28/2018 06/03/2018 Last Assessment & Plan: Assessment: -loculated presacral fluid collection seen on CT 05/28/2018 PLAN: -drain placed -trend output Postoperative ileus 05/27/2018 06/03/20 18 Last Assessment & Plan: Assessment: -NGT output decreased -passing BM PLAN: -remove NGT Pain managed using patient-c ontrolled analgesia (SEROLOGIST) 05/22/2018 05/23/2018 Last Assessment & Plan: Assessment: -pain well controlled PLAN: -wean SEROLOGIST as able Post-operative state 05/21/2018 018 Last Assessment & Plan: Assessment: -POD 10 Hartmanns reversal c/b post op ileus and intrabdominal fluid collection PLAN: -removed NGT -encourage ambulation -incentive spirometry Diverticulitis 05/20/2018 07/24/2018 Last Assessment & Plan: S/P Alfred's reversal. Minor emesis. Awaiting ROBF Colostomy present 12/17/2017 05/21/2018 Post-op pain 11/05/2017 03/27/2019 Last Assessment & Plan: Assessment: -well controlled PLAN: -continue multimodal pain regimen Hypokalemia 11/02/2017 11/05/2017 Patient has nasogastric tube 10/30/2017 10/30/2017 PICC (peripherally inserted central catheter) in place 10/30/2017 11/05/2017 On total parenteral nutrition (TPN) 10/30/2017 11/05/[address] 10/30/2017 8 Encounter for ostomy care education 10/30/2017 07/24/2018 Nausea 10/30/2017 11/05/2017 Encounter for nasogastric tube placement 10/25/2017 11/05/2017 Hypocalcemia 10/25/2017 11/05/2017 Malnutrition of mild degree 10/25/2017 07/24/2018 Last Assessment & Plan: Assessment: -per room attendants assessment PLAN: -discuss parenteral nutrition if prolonged NPO status Elevated serum creatinine 10/24/2017 Hyponatremia 10/24/2017 10/25/2017 Abdominal distention 10/24/2017 018 Superficial thrombophlebitis of both upper extremities 10/24/2017 01/09/2018 Leukocytosis 10/22/2017 11/05/2017 Abdominal pain 10/22/2017 11/26/2017 Ileus 10/22/2017 11/05/2017 Diverticulitis 10/18/2017 04/29/2018 Iliotibial band syndrome, left leg 06/17/2017 07/24/2018 Cervicalgia 04/30/2014 04/29/2018 Lumbar radiculopathy 07/16/2013 017 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05/2018 Piriformis syndrome of left side 01/23/2013 07/04/2017 Trochanteric bursitis of left hip 01/23/2013 01/09/2018 Dyspnea 09/10/2012 07/04/2017 Neurocirculatory asthenia 09/10/2012 Chronic shoulder pain 03/07/20122017 Hemorrhage of gastrointestin al tract, unspecified 03/15/2009 07/13/2016 Other and unspecified noninf ectious gastroenteritis and colitis(558.9) 12/15/200807/13 Excessive or frequent menstruation 09/01/2008 10/20/2008 Urethrocele(618.03) 07/17/2008 10/20/19 09 Acute sinusitis, unspecified 07/15/2007 03/16/2016 Headache(784.0) 07/12/2007 03/16/2016 Mild dysplasia of cervix 04/19/2007 Irregular menstrual cycle 04/19/2007 Postcoital bleeding 04/19/2007 10/20/19 09 Dyspareunia 04/19/2007 03/16/2016 Cystocele, midline 04/19/2007 9 Female stress incontinence 04/19/2007 0 10/20/2008 Urgency of urination 04/19/2007 016 Mononeuritis 06/29/2006 01/09/2018 documented as of this encounter (statuses as of 06/01/2023) [facility] History of Past illness Narrative* Problem Noted Date Diagnosed Date Resolved Date Chronic hypoxemic respiratory failure 09/06/2021 03/20/2022 Acute respiratory disease du e to COVID-19 virus 06/16/2021 04/24/2023 Overview: Seeing Dr. Babs Guerra Hypoxia 06/13/2021 03/20/2022 Systemic infection 06/12/2018 8 Intra-abdominal fluid collection 05/28/2018 06/03/2018 Last Assessment & Plan: Assessment: -loculated presacral fluid collection seen on CT 05/28/2018 PLAN: -drain placed -trend output Postoperative ileus 05/27/2018 06/03/20 18 Last Assessment & Plan: Assessment: -NGT output decreased -passing BM PLAN: -remove NGT Pain managed using patient-c ontrolled analgesia (SEROLOGIST) 05/22/2018 05/23/2018 Last Assessment & Plan: Assessment: -pain well controlled PLAN: -wean SEROLOGIST as able Post-operative state 05/21/2018 018 Last Assessment & Plan: Assessment: -POD 10 Hartmanns reversal c/b post op ileus and intrabdominal fluid collection PLAN: -removed NGT -encourage ambulation -incentive spirometry Diverticulitis 05/20/2018 07/24/2018 Last Assessment & Plan: S/P Alfred's reversal. Minor emesis. Awaiting ROBF Colostomy present 12/17/2017 05/21/2018 Post-op pain 11/05/2017 03/27/2019 Last Assessment & Plan: Assessment: -well controlled PLAN: -continue multimodal pain regimen Hypokalemia 11/02/2017 11/05/2017 Patient has nasogastric tube 10/30/2017 10/30/2017 PICC (peripherally inserted central catheter) in place 10/30/2017 11/05/2017 On total parenteral nutrition (TPN) 10/30/2017 11/05/[address] 10/30/2017 8 Encounter for ostomy care education 10/30/2017 07/24/2018 Nausea 10/30/2017 11/05/2017 Encounter for nasogastric tube placement 10/25/2017 11/05/2017 Hypocalcemia 10/25/2017 11/05/2017 Malnutrition of mild degree 10/25/2017 07/24/2018 Last Assessment & Plan: Assessment: -per room attendants assessment PLAN: -discuss parenteral nutrition if prolonged NPO status Elevated serum creatinine 10/24/2017 Hyponatremia 10/24/2017 10/25/2017 Abdominal distention 10/24/2017 018 Superficial thrombophlebitis of both upper extremities 10/24/2017 01/09/2018 Leukocytosis 10/22/2017 11/05/2017 Abdominal pain 10/22/2017 11/26/2017 Ileus 10/22/2017 11/05/2017 Diverticulitis 10/18/2017 04/29/2018 Iliotibial band syndrome, left leg 06/17/2017 07/24/2018 Cervicalgia 04/30/2014 04/29/2018 Lumbar radiculopathy 07/16/2013 017 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05/2018 Piriformis syndrome of left side 01/23/2013 07/04/2017 Trochanteric bursitis of left hip 01/23/2013 01/09/2018 Dyspnea 09/10/2012 07/04/2017 Neurocirculatory asthenia 09/10/2012 Chronic shoulder pain 03/07/20122017 Hemorrhage of gastrointestin al tract, unspecified 03/15/2009 07/13/2016 Other and unspecified noninf ectious gastroenteritis and colitis(558.9) 12/15/200807/13 Excessive or frequent menstruation 09/01/2008 10/20/2008 Urethrocele(618.03) 07/17/2008 10/20/19 09 Acute sinusitis, unspecified 07/15/2007 03/16/2016 Headache(784.0) 07/12/2007 03/16/2016 Mild dysplasia of cervix 04/19/2007 Irregular menstrual cycle 04/19/2007 Postcoital bleeding 04/19/2007 10/20/19 09 Dyspareunia 04/19/2007 03/16/2016 Cystocele, midline 04/19/2007 9 Female stress incontinence 04/19/2007 0 10/20/2008 Urgency of urination 04/19/2007 016 Mononeuritis 06/29/2006 01/09/2018 documented as of this encounter (statuses as of 06/04/2023) [facility]01-[facility] History of Past illness Narrative* Problem Noted Date Diagnosed Date Resolved Date Chronic hypoxemic respiratory failure 09/06/2021 03/20/2022 Acute respiratory disease du e to COVID-19 virus 06/16/2021 04/24/2023 Overview: Seeing Dr. Babs Guerra Hypoxia 06/13/2021 03/20/2022 Systemic infection 06/12/2018 8 Intra-abdominal fluid collection 05/28/2018 06/03/2018 Last Assessment & Plan: Assessment: -loculated presacral fluid collection seen on CT 05/28/2018 PLAN: -drain placed -trend output Postoperative ileus 05/27/2018 06/03/20 Last Assessment & Plan: Assessment: -NGT output decreased -passing BM PLAN: -remove NGT Pain managed using patient-c ontrolled analgesia (SEROLOGIST) 05/22/2018 05/23/2018 Last Assessment & Plan: Assessment: -pain well controlled PLAN: -wean SEROLOGIST as able Post-operative state 05/21/2018 018 Last Assessment & Plan: Assessment: -POD 10 Hartmanns reversal c/b post op ileus and intrabdominal fluid collection PLAN: -removed NGT -encourage ambulation -incentive spirometry Diverticulitis 05/20/2018 07/24/2018 Last Assessment & Plan: S/P Alfred's reversal. Minor emesis. Awaiting ROBF Colostomy present 12/17/2017 05/21/2018 Post-op pain 11/05/2017 03/27/2019 Last Assessment & Plan: Assessment: -well controlled PLAN: -continue multimodal pain regimen Hypokalemia 11/02/2017 11/05/2017 Patient has nasogastric tube 10/30/2017 10/30/2017 PICC (peripherally inserted central catheter) in place 10/30/2017 11/05/2017 On total parenteral nutrition (TPN) 10/30/2017 11/05/[address] 10/30/2017 8 Encounter for ostomy care education 10/30/2017 07/24/2018 Nausea 10/30/2017 11/05/2017 Encounter for nasogastric tube placement 10/25/2017 11/05/2017 Hypocalcemia 10/25/2017 11/05/2017 Malnutrition of mild degree 10/25/2017 07/24/2018 Last Assessment & Plan: Assessment: -per room attendants assessment PLAN: -discuss parenteral nutrition if prolonged NPO status Elevated serum creatinine 10/24/2017 Hyponatremia 10/24/2017 10/25/2017 Abdominal distention 10/24/2017 018 Superficial thrombophlebitis of both upper extremities 10/24/2017 01/09/2018 Leukocytosis 10/22/2017 11/05/2017 Abdominal pain 10/22/2017 11/26/2017 Ileus 10/22/2017 11/05/2017 Diverticulitis 10/18/2017 04/29/2018 Iliotibial band syndrome, left leg 06/17/2017 07/24/2018 Cervicalgia 04/30/2014 04/29/2018 Lumbar radiculopathy 07/16/2013 017 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05/2018 Piriformis syndrome of left side 01/23/2013 07/04/2017 Trochanteric bursitis of left hip 01/23/2013 01/09/2018 Dyspnea 09/10/2012 07/04/2017 Neurocirculatory asthenia 09/10/2012 Chronic shoulder pain 03/07/20122017 Hemorrhage of gastrointestin al tract, unspecified 03/15/2009 07/13/2016 Other and unspecified noninf ectious gastroenteritis and colitis(558.9) 12/15/200807/13 Excessive or frequent menstruation 09/01/2008 10/20/2008 Urethrocele(618.03) 07/17/2008 10/20/19 09 Acute sinusitis, unspecified 07/15/2007 03/16/2016 Headache(784.0) 07/12/2007 03/16/2016 Mild dysplasia of cervix 04/19/2007 Irregular menstrual cycle 04/19/2007 Postcoital bleeding 04/19/2007 10/20/19 09 Dyspareunia 04/19/2007 03/16/2016 Cystocele, midline 04/19/2007 9 Female stress incontinence 04/19/2007 0 10/20/2008 Urgency of urination 04/19/2007 016 Mononeuritis 06/29/2006 01/09/2018 documented as of this encounter (statuses as of 06/05/2023) [facility] History of Past illness Narrative* Problem Noted Date Diagnosed Date Resolved Date Chronic hypoxemic respiratory failure 09/06/2021 03/20/2022 Acute respiratory disease du e to COVID-19 virus 06/16/2021 04/24/2023 Overview: Seeing Dr. Babs Guerra Hypoxia 06/13/2021 03/20/2022 Systemic infection 06/12/2018 8 Intra-abdominal fluid collection 05/28/2018 06/03/2018 Last Assessment & Plan: Assessment: -loculated presacral fluid collection seen on CT 05/28/2018 PLAN: -drain placed -trend output Postoperative ileus 05/27/2018 06/03/20 Last Assessment & Plan: Assessment: -NGT output decreased -passing BM PLAN: -remove NGT Pain managed using patient-c ontrolled analgesia (SEROLOGIST) 05/22/2018 05/23/2018 Last Assessment & Plan: Assessment: -pain well controlled PLAN: -wean SEROLOGIST as able Post-operative state 05/21/2018 018 Last Assessment & Plan: Assessment: -POD 10 Hartmanns reversal c/b post op ileus and intrabdominal fluid collection PLAN: -removed NGT -encourage ambulation -incentive spirometry Diverticulitis 05/20/2018 07/24/2018 Last Assessment & Plan: S/P Alfred's reversal. Minor emesis. Awaiting ROBF Colostomy present 12/17/2017 05/21/2018 Post-op pain 11/05/2017 03/27/2019 Last Assessment & Plan: Assessment: -well controlled PLAN: -continue multimodal pain regimen Hypokalemia 11/02/2017 11/05/2017 Patient has nasogastric tube 10/30/2017 10/30/2017 PICC (peripherally inserted central catheter) in place 10/30/2017 11/05/2017 On total parenteral nutrition (TPN) 10/30/2017 11/05/[address] 10/30/2017 8 Encounter for ostomy care education 10/30/2017 07/24/2018 Nausea 10/30/2017 11/05/2017 Encounter for nasogastric tube placement 10/25/2017 11/05/2017 Hypocalcemia 10/25/2017 11/05/2017 Malnutrition of mild degree 10/25/2017 07/24/2018 Last Assessment & Plan: Assessment: -per room attendants assessment PLAN: -discuss parenteral nutrition if prolonged NPO status Elevated serum creatinine 10/24/2017 Hyponatremia 10/24/2017 10/25/2017 Abdominal distention 10/24/2017 018 Superficial thrombophlebitis of both upper extremities 10/24/2017 01/09/2018 Leukocytosis 10/22/2017 11/05/2017 Abdominal pain 10/22/2017 11/26/2017 Ileus 10/22/2017 11/05/2017 Diverticulitis 10/18/2017 04/29/2018 Iliotibial band syndrome, left leg 06/17/2017 07/24/2018 Cervicalgia 04/30/2014 04/29/2018 Lumbar radiculopathy 07/16/2013 017 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05/2018 Piriformis syndrome of left side 01/23/2013 07/04/2017 Trochanteric bursitis of left hip 01/23/2013 01/09/2018 Dyspnea 09/10/2012 07/04/2017 Neurocirculatory asthenia 09/10/2012 Chronic shoulder pain 03/07/20122017 Hemorrhage of gastrointestin al tract, unspecified 03/15/2009 07/13/2016 Other and unspecified noninf ectious gastroenteritis and colitis(558.9) 12/15/200807/13 Excessive or frequent menstruation 09/01/2008 10/20/2008 Urethrocele(618.03) 07/17/2008 10/20/19 09 Acute sinusitis, unspecified 07/15/2007 03/16/2016 Headache(784.0) 07/12/2007 03/16/2016 Mild dysplasia of cervix 04/19/2007 Irregular menstrual cycle 04/19/2007 Postcoital bleeding 04/19/2007 10/20/19 09 Dyspareunia 04/19/2007 03/16/2016 Cystocele, midline 04/19/2007 9 Female stress incontinence 04/19/2007 0 10/20/2008 Urgency of urination 04/19/2007 016 Mononeuritis 06/29/2006 01/09/2018 documented as of this encounter (statuses as of 06/14/2023) [facility] History of Past illness Narrative* Problem Noted Date Diagnosed Date Resolved Date Chronic hypoxemic respiratory failure 09/06/2021 03/20/2022 Acute respiratory disease du e to COVID-19 virus 06/16/2021 04/24/2023 Overview: Seeing Dr. Babs Guerra Hypoxia 06/13/2021 03/20/2022 Systemic infection 06/12/2018 8 Intra-abdominal fluid collection 05/28/2018 06/03/2018 Last Assessment & Plan: Assessment: -loculated presacral fluid collection seen on CT 05/28/2018 PLAN: -drain placed -trend output Postoperative ileus 05/27/2018 06/03/20 18 Last Assessment & Plan: Assessment: -NGT output decreased -passing BM PLAN: -remove NGT Pain managed using patient-c ontrolled analgesia (SEROLOGIST) 05/22/2018 05/23/2018 Last Assessment & Plan: Assessment: -pain well controlled PLAN: -wean SEROLOGIST as able Post-operative state 05/21/2018 018 Last Assessment & Plan: Assessment: -POD 10 Hartmanns reversal c/b post op ileus and intrabdominal fluid collection PLAN: -removed NGT -encourage ambulation -incentive spirometry Diverticulitis 05/20/2018 07/24/2018 Last Assessment & Plan: S/P Alfred's reversal. Minor emesis. Awaiting ROBF Colostomy present 12/17/2017 05/21/2018 Post-op pain 11/05/2017 03/27/2019 Last Assessment & Plan: Assessment: -well controlled PLAN: -continue multimodal pain regimen Hypokalemia 11/02/2017 11/05/2017 Patient has nasogastric tube 10/30/2017 10/30/2017 PICC (peripherally inserted central catheter) in place 10/30/2017 11/05/2017 On total parenteral nutrition (TPN) 10/30/2017 11/05/[address] 10/30/2017 8 Encounter for ostomy care education 10/30/2017 07/24/2018 Nausea 10/30/2017 11/05/2017 Encounter for nasogastric tube placement 10/25/2017 11/05/2017 Hypocalcemia 10/25/2017 11/05/2017 Malnutrition of mild degree 10/25/2017 07/24/2018 Last Assessment & Plan: Assessment: -per room attendants assessment PLAN: -discuss parenteral nutrition if prolonged NPO status Elevated serum creatinine 10/24/2017 Hyponatremia 10/24/2017 10/25/2017 Abdominal distention 10/24/2017 018 Superficial thrombophlebitis of both upper extremities 10/24/2017 01/09/2018 Leukocytosis 10/22/2017 11/05/2017 Abdominal pain 10/22/2017 11/26/2017 Ileus 10/22/2017 11/05/2017 Diverticulitis 10/18/2017 04/29/2018 Iliotibial band syndrome, left leg 06/17/2017 07/24/2018 Cervicalgia 04/30/2014 04/29/2018 Lumbar radiculopathy 07/16/2013 017 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05/2018 Piriformis syndrome of left side 01/23/2013 07/04/2017 Trochanteric bursitis of left hip 01/23/2013 01/09/2018 Dyspnea 09/10/2012 07/04/2017 Neurocirculatory asthenia 09/10/2012 Chronic shoulder pain 03/07/20122017 Hemorrhage of gastrointestin al tract, unspecified 03/15/2009 07/13/2016 Other and unspecified noninf ectious gastroenteritis and colitis(558.9) 12/15/200807/13 Excessive or frequent menstruation 09/01/2008 10/20/2008 Urethrocele(618.03) 07/17/2008 10/20/19 09 Acute sinusitis, unspecified 07/15/2007 03/16/2016 Headache(784.0) 07/12/2007 03/16/2016 Mild dysplasia of cervix 04/19/2007 Irregular menstrual cycle 04/19/2007 Postcoital bleeding 04/19/2007 10/20/19 09 Dyspareunia 04/19/2007 03/16/2016 Cystocele, midline 04/19/2007 9 Female stress incontinence 04/19/2007 0 10/20/2008 Urgency of urination 04/19/2007 016 Mononeuritis 06/29/2006 01/09/2018 documented as of this encounter (statuses as of 06/20/2023) [facility] History of Past illness Narrative* Problem Noted Date Diagnosed Date Resolved Date Chronic hypoxemic respiratory failure 09/06/2021 03/20/2022 Acute respiratory disease du e to COVID-19 virus 06/16/2021 04/24/2023 Overview: Seeing Dr. Babs Guerra Hypoxia 06/13/2021 03/20/2022 Systemic infection 06/12/2018 8 Intra-abdominal fluid collection 05/28/2018 06/03/2018 Last Assessment & Plan: Assessment: -loculated presacral fluid collection seen on CT 05/28/2018 PLAN: -drain placed -trend output Postoperative ileus 05/27/2018 06/03/20 18 Last Assessment & Plan: Assessment: -NGT output decreased -passing BM PLAN: -remove NGT Pain managed using patient-c ontrolled analgesia (SEROLOGIST) 05/22/2018 05/23/2018 Last Assessment & Plan: Assessment: -pain well controlled PLAN: -wean SEROLOGIST as able Post-operative state 05/21/2018 018 Last Assessment & Plan: Assessment: -POD 10 Hartmanns reversal c/b post op ileus and intrabdominal fluid collection PLAN: -removed NGT -encourage ambulation -incentive spirometry Diverticulitis 05/20/2018 07/24/2018 Last Assessment & Plan: S/P Alfred's reversal. Minor emesis. Awaiting ROBF Colostomy present 12/17/2017 05/21/2018 Post-op pain 11/05/2017 03/27/2019 Last Assessment & Plan: Assessment: -well controlled PLAN: -continue multimodal pain regimen Hypokalemia 11/02/2017 11/05/2017 Patient has nasogastric tube 10/30/2017 10/30/2017 PICC (peripherally inserted central catheter) in place 10/30/2017 11/05/2017 On total parenteral nutrition (TPN) 10/30/2017 11/05/[address] 10/30/2017 8 Encounter for ostomy care education 10/30/2017 07/24/2018 Nausea 10/30/2017 11/05/2017 Encounter for nasogastric tube placement 10/25/2017 11/05/2017 Hypocalcemia 10/25/2017 11/05/2017 Malnutrition of mild degree 10/25/2017 07/24/2018 Last Assessment & Plan: Assessment: -per room attendants assessment PLAN: -discuss parenteral nutrition if prolonged NPO status Elevated serum creatinine 10/24/2017 Hyponatremia 10/24/2017 10/25/2017 Abdominal distention 10/24/2017 018 Superficial thrombophlebitis of both upper extremities 10/24/2017 01/09/2018 Leukocytosis 10/22/2017 11/05/2017 Abdominal pain 10/22/2017 11/26/2017 Ileus 10/22/2017 11/05/2017 Diverticulitis 10/18/2017 04/29/2018 Iliotibial band syndrome, left leg 06/17/2017 07/24/2018 Cervicalgia 04/30/2014 04/29/2018 Lumbar radiculopathy 07/16/2013 017 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05/2018 Piriformis syndrome of left side 01/23/2013 07/04/2017 Trochanteric bursitis of left hip 01/23/2013 01/09/2018 Dyspnea 09/10/2012 07/04/2017 Neurocirculatory asthenia 09/10/2012 Chronic shoulder pain 03/07/20122017 Hemorrhage of gastrointestin al tract, unspecified 03/15/2009 07/13/2016 Other and unspecified noninf ectious gastroenteritis and colitis(558.9) 12/15/200807/13 Excessive or frequent menstruation 09/01/2008 10/20/2008 Urethrocele(618.03) 07/17/2008 10/20/19 09 Acute sinusitis, unspecified 07/15/2007 03/16/2016 Headache(784.0) 07/12/2007 03/16/2016 Mild dysplasia of cervix 04/19/2007 Irregular menstrual cycle 04/19/2007 Postcoital bleeding 04/19/2007 10/20/19 09 Dyspareunia 04/19/2007 03/16/2016 Cystocele, midline 04/19/2007 9 Female stress incontinence 04/19/2007 0 10/20/2008 Urgency of urination 04/19/2007 016 Mononeuritis 06/29/2006 01/09/2018 documented as of this encounter (statuses as of 06/22/2023) [facility] History of Past illness Narrative* Problem Noted Date Diagnosed Date Resolved Date Chronic hypoxemic respiratory failure 09/06/2021 03/20/2022 Acute respiratory disease du e to COVID-19 virus 06/16/2021 04/24/2023 Overview: Seeing Dr. Babs Guerra Hypoxia 06/13/2021 03/20/2022 Systemic infection 06/12/2018 8 Intra-abdominal fluid collection 05/28/2018 06/03/2018 Last Assessment & Plan: Assessment: -loculated presacral fluid collection seen on CT 05/28/2018 PLAN: -drain placed -trend output Postoperative ileus 05/27/2018 06/03/20 Last Assessment & Plan: Assessment: -NGT output decreased -passing BM PLAN: -remove NGT Pain managed using patient-c ontrolled analgesia (SEROLOGIST) 05/22/2018 05/23/2018 Last Assessment & Plan: Assessment: -pain well controlled PLAN: -wean SEROLOGIST as able Post-operative state 05/21/2018 018 Last Assessment & Plan: Assessment: -POD 10 Hartmanns reversal c/b post op ileus and intrabdominal fluid collection PLAN: -removed NGT -encourage ambulation -incentive spirometry Diverticulitis 05/20/2018 07/24/2018 Last Assessment & Plan: S/P Alfred's reversal. Minor emesis. Awaiting ROBF Colostomy present 12/17/2017 05/21/2018 Post-op pain 11/05/2017 03/27/2019 Last Assessment & Plan: Assessment: -well controlled PLAN: -continue multimodal pain regimen Hypokalemia 11/02/2017 11/05/2017 Patient has nasogastric tube 10/30/2017 10/30/2017 PICC (peripherally inserted central catheter) in place 10/30/2017 11/05/2017 On total parenteral nutrition (TPN) 10/30/2017 11/05/[address] 10/30/2017 8 Encounter for ostomy care education 10/30/2017 07/24/2018 Nausea 10/30/2017 11/05/2017 Encounter for nasogastric tube placement 10/25/2017 11/05/2017 Hypocalcemia 10/25/2017 11/05/2017 Malnutrition of mild degree 10/25/2017 07/24/2018 Last Assessment & Plan: Assessment: -per room attendants assessment PLAN: -discuss parenteral nutrition if prolonged NPO status Elevated serum creatinine 10/24/2017 Hyponatremia 10/24/2017 10/25/2017 Abdominal distention 10/24/2017 018 Superficial thrombophlebitis of both upper extremities 10/24/2017 01/09/2018 Leukocytosis 10/22/2017 11/05/2017 Abdominal pain 10/22/2017 11/26/2017 Ileus 10/22/2017 11/05/2017 Diverticulitis 10/18/2017 04/29/2018 Iliotibial band syndrome, left leg 06/17/2017 07/24/2018 Cervicalgia 04/30/2014 04/29/2018 Lumbar radiculopathy 07/16/2013 017 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05/2018 Piriformis syndrome of left side 01/23/2013 07/04/2017 Trochanteric bursitis of left hip 01/23/2013 01/09/2018 Dyspnea 09/10/2012 07/04/2017 Neurocirculatory asthenia 09/10/2012 Chronic shoulder pain 03/07/20122017 Hemorrhage of gastrointestin al tract, unspecified 03/15/2009 07/13/2016 Other and unspecified noninf ectious gastroenteritis and colitis(558.9) 12/15/200807/13 Excessive or frequent menstruation 09/01/2008 10/20/2008 Urethrocele(618.03) 07/17/2008 10/20/19 09 Acute sinusitis, unspecified 07/15/2007 03/16/2016 Headache(784.0) 07/12/2007 03/16/2016 Mild dysplasia of cervix 04/19/2007 Irregular menstrual cycle 04/19/2007 Postcoital bleeding 04/19/2007 10/20/19 09 Dyspareunia 04/19/2007 03/16/2016 Cystocele, midline 04/19/2007 9 Female stress incontinence 04/19/2007 0 10/20/2008 Urgency of urination 04/19/2007 016 Mononeuritis 06/29/2006 01/09/2018 documented as of this encounter (statuses as of 07/08/2023) [facility]01-04-[facility] History of Past illness Narrative* Problem Noted Date Diagnosed Date Resolved Date Chronic hypoxemic respiratory failure 09/06/2021 03/20/2022 Acute respiratory disease du e to COVID-19 virus 06/16/2021 04/24/2023 Overview: Seeing Dr. Babs Guerra Hypoxia 06/13/2021 03/20/2022 Systemic infection 06/12/2018 8 Intra-abdominal fluid collection 05/28/2018 06/03/2018 Last Assessment & Plan: Assessment: -loculated presacral fluid collection seen on CT 05/28/2018 PLAN: -drain placed -trend output Postoperative ileus 05/27/2018 06/03/20 Last Assessment & Plan: Assessment: -NGT output decreased -passing BM PLAN: -remove NGT Pain managed using patient-c ontrolled analgesia (SEROLOGIST) 05/22/2018 05/23/2018 Last Assessment & Plan: Assessment: -pain well controlled PLAN: -wean SEROLOGIST as able Post-operative state 05/21/2018 018 Last Assessment & Plan: Assessment: -POD 10 Hartmanns reversal c/b post op ileus and intrabdominal fluid collection PLAN: -removed NGT -encourage ambulation -incentive spirometry Diverticulitis 05/20/2018 07/24/2018 Last Assessment & Plan: S/P Alfred's reversal. Minor emesis. Awaiting ROBF Colostomy present 12/17/2017 05/21/2018 Post-op pain 11/05/2017 03/27/2019 Last Assessment & Plan: Assessment: -well controlled PLAN: -continue multimodal pain regimen Hypokalemia 11/02/2017 11/05/2017 Patient has nasogastric tube 10/30/2017 10/30/2017 PICC (peripherally inserted central catheter) in place 10/30/2017 11/05/2017 On total parenteral nutrition (TPN) 10/30/2017 11/05/[address] 10/30/2017 8 Encounter for ostomy care education 10/30/2017 07/24/2018 Nausea 10/30/2017 11/05/2017 Encounter for nasogastric tube placement 10/25/2017 11/05/2017 Hypocalcemia 10/25/2017 11/05/2017 Malnutrition of mild degree 10/25/2017 07/24/2018 Last Assessment & Plan: Assessment: -per room attendants assessment PLAN: -discuss parenteral nutrition if prolonged NPO status Elevated serum creatinine 10/24/2017 Hyponatremia 10/24/2017 10/25/2017 Abdominal distention 10/24/2017 018 Superficial thrombophlebitis of both upper extremities 10/24/2017 01/09/2018 Leukocytosis 10/22/2017 11/05/2017 Abdominal pain 10/22/2017 11/26/2017 Ileus 10/22/2017 11/05/2017 Diverticulitis 10/18/2017 04/29/2018 Iliotibial band syndrome, left leg 06/17/2017 07/24/2018 Cervicalgia 04/30/2014 04/29/2018 Lumbar radiculopathy 07/16/2013 017 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05/2018 Piriformis syndrome of left side 01/23/2013 07/04/2017 Trochanteric bursitis of left hip 01/23/2013 01/09/2018 Dyspnea 09/10/2012 07/04/2017 Neurocirculatory asthenia 09/10/2012 Chronic shoulder pain 03/07/20122017 Hemorrhage of gastrointestin al tract, unspecified 03/15/2009 07/13/2016 Other and unspecified noninf ectious gastroenteritis and colitis(558.9) 12/15/200807/13 Excessive or frequent menstruation 09/01/2008 10/20/2008 Urethrocele(618.03) 07/17/2008 10/20/19 09 Acute sinusitis, unspecified 07/15/2007 03/16/2016 Headache(784.0) 07/12/2007 03/16/2016 Mild dysplasia of cervix 04/19/2007 Irregular menstrual cycle 04/19/2007 Postcoital bleeding 04/19/2007 10/20/19 09 Dyspareunia 04/19/2007 03/16/2016 Cystocele, midline 04/19/2007 9 Female stress incontinence 04/19/2007 0 10/20/2008 Urgency of urination 04/19/2007 016 Mononeuritis 06/29/2006 01/09/2018 documented as of this encounter (statuses as of 07/08/2023) [facility]01-04-[facility] History of Past illness Narrative* Problem Noted Date Diagnosed Date Resolved Date Chronic hypoxemic respiratory failure 09/06/2021 03/20/2022 Acute respiratory disease du e to COVID-19 virus 06/16/2021 04/24/2023 Overview: Seeing Dr. Babs Guerra Hypoxia 06/13/2021 03/20/2022 Systemic infection 06/12/2018 8 Intra-abdominal fluid collection 05/28/2018 06/03/2018 Last Assessment & Plan: Assessment: -loculated presacral fluid collection seen on CT 05/28/2018 PLAN: -drain placed -trend output Postoperative ileus 05/27/2018 06/03/20 Last Assessment & Plan: Assessment: -NGT output decreased -passing BM PLAN: -remove NGT Pain managed using patient-c ontrolled analgesia (SEROLOGIST) 05/22/2018 05/23/2018 Last Assessment & Plan: Assessment: -pain well controlled PLAN: -wean SEROLOGIST as able Post-operative state 05/21/2018 018 Last Assessment & Plan: Assessment: -POD 10 Hartmanns reversal c/b post op ileus and intrabdominal fluid collection PLAN: -removed NGT -encourage ambulation -incentive spirometry Diverticulitis 05/20/2018 07/24/2018 Last Assessment & Plan: S/P Alfred's reversal. Minor emesis. Awaiting ROBF Colostomy present 12/17/2017 05/21/2018 Post-op pain 11/05/2017 03/27/2019 Last Assessment & Plan: Assessment: -well controlled PLAN: -continue multimodal pain regimen Hypokalemia 11/02/2017 11/05/2017 Patient has nasogastric tube 10/30/2017 10/30/2017 PICC (peripherally inserted central catheter) in place 10/30/2017 11/05/2017 On total parenteral nutrition (TPN) 10/30/2017 11/05/[address] 10/30/2017 8 Encounter for ostomy care education 10/30/2017 07/24/2018 Nausea 10/30/2017 11/05/2017 Encounter for nasogastric tube placement 10/25/2017 11/05/2017 Hypocalcemia 10/25/2017 11/05/2017 Malnutrition of mild degree 10/25/2017 07/24/2018 Last Assessment & Plan: Assessment: -per room attendants assessment PLAN: -discuss parenteral nutrition if prolonged NPO status Elevated serum creatinine 10/24/2017 Hyponatremia 10/24/2017 10/25/2017 Abdominal distention 10/24/2017 018 Superficial thrombophlebitis of both upper extremities 10/24/2017 01/09/2018 Leukocytosis 10/22/2017 11/05/2017 Abdominal pain 10/22/2017 11/26/2017 Ileus 10/22/2017 11/05/2017 Diverticulitis 10/18/2017 04/29/2018 Iliotibial band syndrome, left leg 06/17/2017 07/24/2018 Cervicalgia 04/30/2014 04/29/2018 Lumbar radiculopathy 07/16/2013 017 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05/2018 Piriformis syndrome of left side 01/23/2013 07/04/2017 Trochanteric bursitis of left hip 01/23/2013 01/09/2018 Dyspnea 09/10/2012 07/04/2017 Neurocirculatory asthenia 09/10/2012 Chronic shoulder pain 03/07/20122017 Hemorrhage of gastrointestin al tract, unspecified 03/15/2009 07/13/2016 Other and unspecified noninf ectious gastroenteritis and colitis(558.9) 12/15/200807/13 Excessive or frequent menstruation 09/01/2008 10/20/2008 Urethrocele(618.03) 07/17/2008 10/20/19 09 Acute sinusitis, unspecified 07/15/2007 03/16/2016 Headache(784.0) 07/12/2007 03/16/2016 Mild dysplasia of cervix 04/19/2007 Irregular menstrual cycle 04/19/2007 Postcoital bleeding 04/19/2007 10/20/19 09 Dyspareunia 04/19/2007 03/16/2016 Cystocele, midline 04/19/2007 9 Female stress incontinence 04/19/2007 0 10/20/2008 Urgency of urination 04/19/2007 016 Mononeuritis 06/29/2006 01/09/2018 documented as of this encounter (statuses as of 07/12/2023) [facility]01-04-[facility] History of Past illness Narrative* Problem Noted Date Diagnosed Date Resolved Date Chronic hypoxemic respiratory failure 09/06/2021 03/20/2022 Acute respiratory disease du e to COVID-19 virus 06/16/2021 04/24/2023 Overview: Seeing Dr. Babs Guerra Hypoxia 06/13/2021 03/20/2022 Systemic infection 06/12/2018 8 Intra-abdominal fluid collection 05/28/2018 06/03/2018 Last Assessment & Plan: Assessment: -loculated presacral fluid collection seen on CT 05/28/2018 PLAN: -drain placed -trend output Postoperative ileus 05/27/2018 06/03/20 Last Assessment & Plan: Assessment: -NGT output decreased -passing BM PLAN: -remove NGT Pain managed using patient-c ontrolled analgesia (SEROLOGIST) 05/22/2018 05/23/2018 Last Assessment & Plan: Assessment: -pain well controlled PLAN: -wean SEROLOGIST as able Post-operative state 05/21/2018 018 Last Assessment & Plan: Assessment: -POD 10 Hartmanns reversal c/b post op ileus and intrabdominal fluid collection PLAN: -removed NGT -encourage ambulation -incentive spirometry Diverticulitis 05/20/2018 07/24/2018 Last Assessment & Plan: S/P Alfred's reversal. Minor emesis. Awaiting ROBF Colostomy present 12/17/2017 05/21/2018 Post-op pain 11/05/2017 03/27/2019 Last Assessment & Plan: Assessment: -well controlled PLAN: -continue multimodal pain regimen Hypokalemia 11/02/2017 11/05/2017 Patient has nasogastric tube 10/30/2017 10/30/2017 PICC (peripherally inserted central catheter) in place 10/30/2017 11/05/2017 On total parenteral nutrition (TPN) 10/30/2017 11/05/[address] 10/30/2017// 8 Encounter for ostomy care education 10/30/2017 07/24/2018 Nausea 10/30/2017 11/05/2017 Encounter for nasogastric tube placement 10/25/2017 11/05/2017 Hypocalcemia 10/25/2017 11/05/2017 Malnutrition of mild degree 10/25/2017 07/24/2018 Last Assessment & Plan: Assessment: -per room attendants assessment PLAN: -discuss parenteral nutrition if prolonged NPO status Elevated serum creatinine 10/24/2017 Hyponatremia 10/24/2017 10/25/2017 Abdominal distention 10/24/2017 018 Superficial thrombophlebitis of both upper extremities 10/24/2017 01/09/2018 Leukocytosis 10/22/2017 11/05/2017 Abdominal pain 10/22/2017 11/26/2017 Ileus 10/22/2017 11/05/2017 Diverticulitis 10/18/2017 04/29/2018 Iliotibial band syndrome, left leg 06/17/2017 07/24/2018 Cervicalgia 04/30/2014 04/29/2018 Lumbar radiculopathy 07/16/2013 017 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05/2018 Piriformis syndrome of left side 01/23/2013 07/04/2017 Trochanteric bursitis of left hip 01/23/2013 01/09/2018 Dyspnea 09/10/2012 07/04/2017 Neurocirculatory asthenia 09/10/2012 Chronic shoulder pain 03/07/20122017 Hemorrhage of gastrointestin al tract, unspecified 03/15/2009 07/13/2016 Other and unspecified noninf ectious gastroenteritis and colitis(558.9) 12/15/200807/13 Excessive or frequent menstruation 09/01/2008 10/20/2008 Urethrocele(618.03) 07/17/2008 10/20/19 09 Acute sinusitis, unspecified 07/15/2007 03/16/2016 Headache(784.0) 07/12/2007 03/16/2016 Mild dysplasia of cervix 04/19/2007 Irregular menstrual cycle 04/19/2007 Postcoital bleeding 04/19/2007 10/20/19 09 Dyspareunia 04/19/2007 03/16/2016 Cystocele, midline 04/19/2007 9 Female stress incontinence 04/19/2007 0 10/20/2008 Urgency of urination 04/19/2007 016 Mononeuritis 06/29/2006 01/09/2018 documented as of this encounter (statuses as of 08/09/2023) [facility]01-04-[facility] History of Past illness Narrative* Problem Noted Date Diagnosed Date Resolved Date Chronic hypoxemic respiratory failure 09/06/2021 03/20/2022 Acute respiratory disease du e to COVID-19 virus 06/16/2021 04/24/2023 Overview: Seeing Dr. Babs Guerra Hypoxia 06/13/2021 03/20/2022 Systemic infection 06/12/2018 8 Intra-abdominal fluid collection 05/28/2018 06/03/2018 Last Assessment & Plan: Assessment: -loculated presacral fluid collection seen on CT 05/28/2018 PLAN: -drain placed -trend output Postoperative ileus 05/27/2018 06/03/20 18 Last Assessment & Plan: Assessment: -NGT output decreased -passing BM PLAN: -remove NGT Pain managed using patient-c ontrolled analgesia (SEROLOGIST) 05/22/2018 05/23/2018 Last Assessment & Plan: Assessment: -pain well controlled PLAN: -wean SEROLOGIST as able Post-operative state 05/21/2018 018 Last Assessment & Plan: Assessment: -POD 10 Hartmanns reversal c/b post op ileus and intrabdominal fluid collection PLAN: -removed NGT -encourage ambulation -incentive spirometry Diverticulitis 05/20/2018 07/24/2018 Last Assessment & Plan: S/P Alfred's reversal. Minor emesis. Awaiting ROBF Colostomy present 12/17/2017 05/21/2018 Post-op pain 11/05/2017 03/27/2019 Last Assessment & Plan: Assessment: -well controlled PLAN: -continue multimodal pain regimen Hypokalemia 11/02/2017 11/05/2017 Patient has nasogastric tube 10/30/2017 10/30/2017 PICC (peripherally inserted central catheter) in place 10/30/2017 11/05/2017 On total parenteral nutrition (TPN) 10/30/2017 11/05/[address] 10/30/2017 8 Encounter for ostomy care education 10/30/2017 07/24/2018 Nausea 10/30/2017 11/05/2017 Encounter for nasogastric tube placement 10/25/2017 11/05/2017 Hypocalcemia 10/25/2017 11/05/2017 Malnutrition of mild degree 10/25/2017 07/24/2018 Last Assessment & Plan: Assessment: -per room attendants assessment PLAN: -discuss parenteral nutrition if prolonged NPO status Elevated serum creatinine 10/24/2017 Hyponatremia 10/24/2017 10/25/2017 Abdominal distention 10/24/2017 018 Superficial thrombophlebitis of both upper extremities 10/24/2017 01/09/2018 Leukocytosis 10/22/2017 11/05/2017 Abdominal pain 10/22/2017 11/26/2017 Ileus 10/22/2017 11/05/2017 Diverticulitis 10/18/2017 04/29/2018 Iliotibial band syndrome, left leg 06/17/2017 07/24/2018 Cervicalgia 04/30/2014 04/29/2018 Lumbar radiculopathy 07/16/2013 017 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05/2018 Piriformis syndrome of left side 01/23/2013 07/04/2017 Trochanteric bursitis of left hip 01/23/2013 01/09/2018 Dyspnea 09/10/2012 07/04/2017 Neurocirculatory asthenia 09/10/2012 Chronic shoulder pain 03/07/20122017 Hemorrhage of gastrointestin al tract, unspecified 03/15/2009 07/13/2016 Other and unspecified noninf ectious gastroenteritis and colitis(558.9) 12/15/200807/13 Excessive or frequent menstruation 09/01/2008 10/20/2008 Urethrocele(618.03) 07/17/2008 10/20/19 09 Acute sinusitis, unspecified 07/15/2007 03/16/2016 Headache(784.0) 07/12/2007 03/16/2016 Mild dysplasia of cervix 04/19/2007 Irregular menstrual cycle 04/19/2007 Postcoital bleeding 04/19/2007 10/20/19 09 Dyspareunia 04/19/2007 03/16/2016 Cystocele, midline 04/19/2007 9 Female stress incontinence 04/19/2007 0 10/20/2008 Urgency of urination 04/19/2007 016 Mononeuritis 06/29/2006 01/09/2018 documented as of this encounter (statuses as of 08/10/2023) [facility]01[facility] History of Past illness Narrative* Problem Noted Date Diagnosed Date Resolved Date Chronic hypoxemic respiratory failure 09/06/2021 03/20/2022 Acute respiratory disease du e to COVID-19 virus 06/16/2021 04/24/2023 Overview: Seeing Dr. Babs Guerra Hypoxia 06/13/2021 03/20/2022 Systemic infection 06/12/2018 8 Intra-abdominal fluid collection 05/28/2018 06/03/2018 Last Assessment & Plan: Assessment: -loculated presacral fluid collection seen on CT 05/28/2018 PLAN: -drain placed -trend output Postoperative ileus 05/27/2018 06/03/20 18 Last Assessment & Plan: Assessment: -NGT output decreased -passing BM PLAN: -remove NGT Pain managed using patient-c ontrolled analgesia (SEROLOGIST) 05/22/2018 05/23/2018 Last Assessment & Plan: Assessment: -pain well controlled PLAN: -wean SEROLOGIST as able Post-operative state 05/21/2018 018 Last Assessment & Plan: Assessment: -POD 10 Hartmanns reversal c/b post op ileus and intrabdominal fluid collection PLAN: -removed NGT -encourage ambulation -incentive spirometry Diverticulitis 05/20/2018 07/24/2018 Last Assessment & Plan: S/P Alfred's reversal. Minor emesis. Awaiting ROBF Colostomy present 12/17/2017 05/21/2018 Post-op pain 11/05/2017 03/27/2019 Last Assessment & Plan: Assessment: -well controlled PLAN: -continue multimodal pain regimen Hypokalemia 11/02/2017 11/05/2017 Patient has nasogastric tube 10/30/2017 10/30/2017 PICC (peripherally inserted central catheter) in place 10/30/2017 11/05/2017 On total parenteral nutrition (TPN) 10/30/2017 11/05/[address] 10/30/2017 8 Encounter for ostomy care education 10/30/2017 07/24/2018 Nausea 10/30/2017 11/05/2017 Encounter for nasogastric tube placement 10/25/2017 11/05/2017 Hypocalcemia 10/25/2017 11/05/2017 Malnutrition of mild degree 10/25/2017 07/24/2018 Last Assessment & Plan: Assessment: -per room attendants assessment PLAN: -discuss parenteral nutrition if prolonged NPO status Elevated serum creatinine 10/24/2017 Hyponatremia 10/24/2017 10/25/2017 Abdominal distention 10/24/2017 018 Superficial thrombophlebitis of both upper extremities 10/24/2017 01/09/2018 Leukocytosis 10/22/2017 11/05/2017 Abdominal pain 10/22/2017 11/26/2017 Ileus 10/22/2017 11/05/2017 Diverticulitis 10/18/2017 04/29/2018 Iliotibial band syndrome, left leg 06/17/2017 07/24/2018 Cervicalgia 04/30/2014 04/29/2018 Lumbar radiculopathy 07/16/2013 017 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05/2018 Piriformis syndrome of left side 01/23/2013 07/04/2017 Trochanteric bursitis of left hip 01/23/2013 01/09/2018 Dyspnea 09/10/2012 07/04/2017 Neurocirculatory asthenia 09/10/2012 Chronic shoulder pain 03/07/20122017 Hemorrhage of gastrointestin al tract, unspecified 03/15/2009 07/13/2016 Other and unspecified noninf ectious gastroenteritis and colitis(558.9) 12/15/200807/13 Excessive or frequent menstruation 09/01/2008 10/20/2008 Urethrocele(618.03) 07/17/2008 10/20/19 09 Acute sinusitis, unspecified 07/15/2007 03/16/2016 Headache(784.0) 07/12/2007 03/16/2016 Mild dysplasia of cervix 04/19/2007 Irregular menstrual cycle 04/19/2007 Postcoital bleeding 04/19/2007 10/20/19 09 Dyspareunia 04/19/2007 03/16/2016 Cystocele, midline 04/19/2007 9 Female stress incontinence 04/19/2007 0 10/20/2008 Urgency of urination 04/19/2007 016 Mononeuritis 06/29/2006 01/09/2018 documented as of this encounter (statuses as of 08/16/2023) [facility]01[facility] History of Past illness Narrative* Problem Noted Date Diagnosed Date Resolved Date Chronic hypoxemic respiratory failure 09/06/2021 03/20/2022 Acute respiratory disease du e to COVID-19 virus 06/16/2021 04/24/2023 Overview: Seeing Dr. Babs Guerra Hypoxia 06/13/2021 03/20/2022 Systemic infection 06/12/2018 8 Intra-abdominal fluid collection 05/28/2018 06/03/2018 Last Assessment & Plan: Assessment: -loculated presacral fluid collection seen on CT 05/28/2018 PLAN: -drain placed -trend output Postoperative ileus 05/27/2018 06/03/20 Last Assessment & Plan: Assessment: -NGT output decreased -passing BM PLAN: -remove NGT Pain managed using patient-c ontrolled analgesia (SEROLOGIST) 05/22/2018 05/23/2018 Last Assessment & Plan: Assessment: -pain well controlled PLAN: -wean SEROLOGIST as able Post-operative state 05/21/2018 018 Last Assessment & Plan: Assessment: -POD 10 Hartmanns reversal c/b post op ileus and intrabdominal fluid collection PLAN: -removed NGT -encourage ambulation -incentive spirometry Diverticulitis 05/20/2018 07/24/2018 Last Assessment & Plan: S/P Alfred's reversal. Minor emesis. Awaiting ROBF Colostomy present 12/17/2017 05/21/2018 Post-op pain 11/05/2017 03/27/2019 Last Assessment & Plan: Assessment: -well controlled PLAN: -continue multimodal pain regimen Hypokalemia 11/02/2017 11/05/2017 Patient has nasogastric tube 10/30/2017 10/30/2017 PICC (peripherally inserted central catheter) in place 10/30/2017 11/05/2017 On total parenteral nutrition (TPN) 10/30/2017 11/05/[address] 10/30/2017 8 Encounter for ostomy care education 10/30/2017 07/24/2018 Nausea 10/30/2017 11/05/2017 Encounter for nasogastric tube placement 10/25/2017 11/05/2017 Hypocalcemia 10/25/2017 11/05/2017 Malnutrition of mild degree 10/25/2017 07/24/2018 Last Assessment & Plan: Assessment: -per room attendants assessment PLAN: -discuss parenteral nutrition if prolonged NPO status Elevated serum creatinine 10/24/2017 Hyponatremia 10/24/2017 10/25/2017 Abdominal distention 10/24/2017 018 Superficial thrombophlebitis of both upper extremities 10/24/2017 01/09/2018 Leukocytosis 10/22/2017 11/05/2017 Abdominal pain 10/22/2017 11/26/2017 Ileus 10/22/2017 11/05/2017 Diverticulitis 10/18/2017 04/29/2018 Iliotibial band syndrome, left leg 06/17/2017 07/24/2018 Cervicalgia 04/30/2014 04/29/2018 Lumbar radiculopathy 07/16/2013 017 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05/2018 Piriformis syndrome of left side 01/23/2013 07/04/2017 Trochanteric bursitis of left hip 01/23/2013 01/09/2018 Dyspnea 09/10/2012 07/04/2017 Neurocirculatory asthenia 09/10/2012 Chronic shoulder pain 03/07/20122017 Hemorrhage of gastrointestin al tract, unspecified 03/15/2009 07/13/2016 Other and unspecified noninf ectious gastroenteritis and colitis(558.9) 12/15/200807/13 Excessive or frequent menstruation 09/01/2008 10/20/2008 Urethrocele(618.03) 07/17/2008 10/20/19 09 Acute sinusitis, unspecified 07/15/2007 03/16/2016 Headache(784.0) 07/12/2007 03/16/2016 Mild dysplasia of cervix 04/19/2007 Irregular menstrual cycle 04/19/2007 Postcoital bleeding 04/19/2007 10/20/19 09 Dyspareunia 04/19/2007 03/16/2016 Cystocele, midline 04/19/2007 9 Female stress incontinence 04/19/2007 0 10/20/2008 Urgency of urination 04/19/2007 016 Mononeuritis 06/29/2006 01/09/2018 documented as of this encounter (statuses as of 08/23/2023) [facility] History of Past illness Narrative* Problem Noted Date Resolved Date Systemic infection 06/12/2018 07/24/2018 Intra-abdominal fluid collection 05/28/2018 06/03/2018 Last Assessment & Plan: Assessment: -loculated presacral fluid collection seen on CT 05/28/2018 PLAN: -drain placed -trend output Postoperative ileus 05/27/2018 06/03/2018 Last Assessment & Plan: Assessment: -NGT output decreased -passing BM PLAN: -remove NGT Pain managed using patient-controlled analgesia (SEROLOGIST) 05/22/2018 05/23/2018 Last Assessment & Plan: Assessment: -pain well controlled PLAN: -wean SEROLOGIST as able Post-operative state 05/21/2018 07/24/2018 Last Assessment & Plan: Assessment: -POD 10 Hartmanns reversal c/b post op ileus and intrabdominal fluid collection PLAN: -removed NGT -encourage ambulation -incentive spirometry Diverticulitis 05/20/2018 07/24/2018 Last Assessment & Plan: S/P Alfred's reversal. Minor emesis. Awaiting ROBF Colostomy present 12/17/2017 05/21/2018 Post-op pain 11/05/2017 03/27/2019 Last Assessment & Plan: Assessment: -well controlled PLAN: -continue multimodal pain regimen Hypokalemia 11/02/2017 11/05/2017 Patient has nasogastric tube 10/30/2017 PICC (peripherally inserted central catheter) in place 10/30/2017 11/05/2017 On total parenteral nutrition (TPN) 10/30/2017 11/05/[address] 10/30/2017 05/21/2018 Encounter for ostomy care education 10/30/2017 07/24/2018 Nausea 10/30/2017 11/05/2017 Encounter for nasogastric tube placement 018 11/05/2017 Hypocalcemia 10/25/2017 11/05/2017 Malnutrition of mild degree 10/25/201707/05 Last Assessment & Plan: Assessment: -per room attendants assessment PLAN: -discuss parenteral nutrition if prolonged NPO status Elevated serum creatinine 10/24/20172017 Hyponatremia 10/24/2017 10/25/2017 Abdominal distention 10/24/2017 11/05/2017 Superficial thrombophlebitis of both upper extre mities 10/24/2017 01/09/2018 Leukocytosis 10/22/2017 11/05/2017 Abdominal pain 10/22/2017 11/26/2017 Ileus 10/22/2017 11/05/2017 Diverticulitis 10/18/2017 04/29/2018 Iliotibial band syndrome, left leg 06/17/2017 07/24/2018 Cervicalgia 04/30/2014 04/29/2018 Lumbar radiculopathy 07/16/2013 07/04/2017 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 018 Piriformis syndrome of left side 01/23/2013 07/04/2017 Trochanteric bursitis of left hip 01/23/2013 01/09/2018 Dyspnea 09/10/2012 07/04/2017 Neurocirculatory asthenia 09/10/20122016 Chronic shoulder pain 03/07/2012 06/12/2018 Hemorrhage of gastrointestinal tract, unspecifie d 03/15/2009 07/13/2016 Other and unspecified noninf ectious gastroenteritis and colitis(558.9) 12/15/2008 07/13/2016 Excessive or frequent menstruation 09/01/2008 10/20/2008 Urethrocele(618.03) 07/17/2008 10/20/2008 Acute sinusitis, unspecified 07/15/2007 Headache(784.0) 07/12/2007 03/16/2016 Mild dysplasia of cervix 04/19/2007 016 Irregular menstrual cycle 04/19/20072008 Postcoital bleeding 04/19/2007 10/20/2008 Dyspareunia 04/19/2007 03/16/2016 Cystocele, midline 04/19/2007 10/20/2008 Female stress incontinence 04/19/200710/20 Urgency of urination 04/19/2007 03/16/2016 Mononeuritis 06/29/2006 01/09/2018 documented as of this encounter (statuses as of 12/16/2021) [facility]10[facility] History of Past illness Narrative* Problem Noted Date Resolved Date Systemic infection 06/12/2018 07/24/2018 Intra-abdominal fluid collection 05/28/2018 06/03/2018 Last Assessment & Plan: Assessment: -loculated presacral fluid collection seen on CT 05/28/2018 PLAN: -drain placed -trend output Postoperative ileus 05/27/2018 06/03/2018 Last Assessment & Plan: Assessment: -NGT output decreased -passing BM PLAN: -remove NGT Pain managed using patient-controlled analgesia (SEROLOGIST) 05/22/2018 05/23/2018 Last Assessment & Plan: Assessment: -pain well controlled PLAN: -wean SEROLOGIST as able Post-operative state 05/21/2018 07/24/2018 Last Assessment & Plan: Assessment: -POD 10 Hartmanns reversal c/b post op ileus and intrabdominal fluid collection PLAN: -removed NGT -encourage ambulation -incentive spirometry Diverticulitis 05/20/2018 07/24/2018 Last Assessment & Plan: S/P Alfred's reversal. Minor emesis. Awaiting ROBF Colostomy present 12/17/2017 05/21/2018 Post-op pain 11/05/2017 03/27/2019 Last Assessment & Plan: Assessment: -well controlled PLAN: -continue multimodal pain regimen Hypokalemia 11/02/2017 11/05/2017 Patient has nasogastric tube 10/30/2017 PICC (peripherally inserted central catheter) in place 10/30/2017 11/05/2017 On total parenteral nutrition (TPN) 10/30/2017 11/05/[address] 10/30/2017 05/21/2018 Encounter for ostomy care education 10/30/2017 07/24/2018 Nausea 10/30/2017 11/05/2017 Encounter for nasogastric tube placement 018 11/05/2017 Hypocalcemia 10/25/2017 11/05/2017 Malnutrition of mild degree 10/25/201707/05 Last Assessment & Plan: Assessment: -per room attendants assessment PLAN: -discuss parenteral nutrition if prolonged NPO status Elevated serum creatinine 10/24/20172017 Hyponatremia 10/24/2017 10/25/2017 Abdominal distention 10/24/2017 11/05/2017 Superficial thrombophlebitis of both upper extre mities 10/24/2017 01/09/2018 Leukocytosis 10/22/2017 11/05/2017 Abdominal pain 10/22/2017 11/26/2017 Ileus 10/22/2017 11/05/2017 Diverticulitis 10/18/2017 04/29/2018 Iliotibial band syndrome, left leg 06/17/2017 07/24/2018 Cervicalgia 04/30/2014 04/29/2018 Lumbar radiculopathy 07/16/2013 07/04/2017 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 018 Piriformis syndrome of left side 01/23/2013 07/04/2017 Trochanteric bursitis of left hip 01/23/2013 01/09/2018 Dyspnea 09/10/2012 07/04/2017 Neurocirculatory asthenia 09/10/20122016 Chronic shoulder pain 03/07/2012 06/12/2018 Hemorrhage of gastrointestinal tract, unspecifie d 03/15/2009 07/13/2016 Other and unspecified noninf ectious gastroenteritis and colitis(558.9) 12/15/2008 07/13/2016 Excessive or frequent menstruation 09/01/2008 10/20/2008 Urethrocele(618.03) 07/17/2008 10/20/2008 Acute sinusitis, unspecified 07/15/2007 Headache(784.0) 07/12/2007 03/16/2016 Mild dysplasia of cervix 04/19/2007 016 Irregular menstrual cycle 04/19/20072008 Postcoital bleeding 04/19/2007 10/20/2008 Dyspareunia 04/19/2007 03/16/2016 Cystocele, midline 04/19/2007 10/20/2008 Female stress incontinence 04/19/200710/20 Urgency of urination 04/19/2007 03/16/2016 Mononeuritis 06/29/2006 01/09/2018 documented as of this encounter (statuses as of 01/03/2022) [facility] History of Past illness Narrative* Problem Noted Date Resolved Date Systemic infection 06/12/2018 07/24/2018 Intra-abdominal fluid collection 05/28/2018 06/03/2018 Last Assessment & Plan: Assessment: -loculated presacral fluid collection seen on CT 05/28/2018 PLAN: -drain placed -trend output Postoperative ileus 05/27/2018 06/03/2018 Last Assessment & Plan: Assessment: -NGT output decreased -passing BM PLAN: -remove NGT Pain managed using patient-controlled analgesia (SEROLOGIST) 05/22/2018 05/23/2018 Last Assessment & Plan: Assessment: -pain well controlled PLAN: -wean SEROLOGIST as able Post-operative state 05/21/2018 07/24/2018 Last Assessment & Plan: Assessment: -POD 10 Hartmanns reversal c/b post op ileus and intrabdominal fluid collection PLAN: -removed NGT -encourage ambulation -incentive spirometry Diverticulitis 05/20/2018 07/24/2018 Last Assessment & Plan: S/P Alfred's reversal. Minor emesis. Awaiting ROBF Colostomy present 12/17/2017 05/21/2018 Post-op pain 11/05/2017 03/27/2019 Last Assessment & Plan: Assessment: -well controlled PLAN: -continue multimodal pain regimen Hypokalemia 11/02/2017 11/05/2017 Patient has nasogastric tube 10/30/2017 PICC (peripherally inserted central catheter) in place 10/30/2017 11/05/2017 On total parenteral nutrition (TPN) 10/30/2017 11/05/[address] 10/30/2017 05/21/2018 Encounter for ostomy care education 10/30/2017 07/24/2018 Nausea 10/30/2017 11/05/2017 Encounter for nasogastric tube placement 018 11/05/2017 Hypocalcemia 10/25/2017 11/05/2017 Malnutrition of mild degree 10/25/201707/05 Last Assessment & Plan: Assessment: -per room attendants assessment PLAN: -discuss parenteral nutrition if prolonged NPO status Elevated serum creatinine 10/24/20172017 Hyponatremia 10/24/2017 10/25/2017 Abdominal distention 10/24/2017 11/05/2017 Superficial thrombophlebitis of both upper extre mities 10/24/2017 01/09/2018 Leukocytosis 10/22/2017 11/05/2017 Abdominal pain 10/22/2017 11/26/2017 Ileus 10/22/2017 11/05/2017 Diverticulitis 10/18/2017 04/29/2018 Iliotibial band syndrome, left leg 06/17/2017 07/24/2018 Cervicalgia 04/30/2014 04/29/2018 Lumbar radiculopathy 07/16/2013 07/04/2017 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 018 Piriformis syndrome of left side 01/23/2013 07/04/2017 Trochanteric bursitis of left hip 01/23/2013 01/09/2018 Dyspnea 09/10/2012 07/04/2017 Neurocirculatory asthenia 09/10/20122016 Chronic shoulder pain 03/07/2012 06/12/2018 Hemorrhage of gastrointestinal tract, unspecifie d 03/15/2009 07/13/2016 Other and unspecified noninf ectious gastroenteritis and colitis(558.9) 12/15/2008 07/13/2016 Excessive or frequent menstruation 09/01/2008 10/20/2008 Urethrocele(618.03) 07/17/2008 10/20/2008 Acute sinusitis, unspecified 07/15/2007 Headache(784.0) 07/12/2007 03/16/2016 Mild dysplasia of cervix 04/19/2007 016 Irregular menstrual cycle 04/19/20072008 Postcoital bleeding 04/19/2007 10/20/2008 Dyspareunia 04/19/2007 03/16/2016 Cystocele, midline 04/19/2007 10/20/2008 Female stress incontinence 04/19/200710/20 Urgency of urination 04/19/2007 03/16/2016 Mononeuritis 06/29/2006 01/09/2018 documented as of this encounter (statuses as of 01/10/2022) [facility]10[facility]2018 History of Past illness Narrative* Problem Noted Date Resolved Date Systemic infection 06/12/2018 07/24/2018 Intra-abdominal fluid collection 05/28/2018 06/03/2018 Last Assessment & Plan: Assessment: -loculated presacral fluid collection seen on CT 05/28/2018 PLAN: -drain placed -trend output Postoperative ileus 05/27/2018 06/03/2018 Last Assessment & Plan: Assessment: -NGT output decreased -passing BM PLAN: -remove NGT Pain managed using patient-controlled analgesia (SEROLOGIST) 05/22/2018 05/23/2018 Last Assessment & Plan: Assessment: -pain well controlled PLAN: -wean SEROLOGIST as able Post-operative state 05/21/2018 07/24/2018 Last Assessment & Plan: Assessment: -POD 10 Hartmanns reversal c/b post op ileus and intrabdominal fluid collection PLAN: -removed NGT -encourage ambulation -incentive spirometry Diverticulitis 05/20/2018 07/24/2018 Last Assessment & Plan: S/P Alfred's reversal. Minor emesis. Awaiting ROBF Colostomy present 12/17/2017 05/21/2018 Post-op pain 11/05/2017 03/27/2019 Last Assessment & Plan: Assessment: -well controlled PLAN: -continue multimodal pain regimen Hypokalemia 11/02/2017 11/05/2017 Patient has nasogastric tube 10/30/2017 PICC (peripherally inserted central catheter) in place 10/30/2017 11/05/2017 On total parenteral nutrition (TPN) 10/30/2017 11/05/[address] 10/30/2017 05/21/2018 Encounter for ostomy care education 10/30/2017 07/24/2018 Nausea 10/30/2017 11/05/2017 Encounter for nasogastric tube placement 018 11/05/2017 Hypocalcemia 10/25/2017 11/05/2017 Malnutrition of mild degree 10/25/201707/05 Last Assessment & Plan: Assessment: -per room attendants assessment PLAN: -discuss parenteral nutrition if prolonged NPO status Elevated serum creatinine 10/24/20172017 Hyponatremia 10/24/2017 10/25/2017 Abdominal distention 10/24/2017 11/05/2017 Superficial thrombophlebitis of both upper extre mities 10/24/2017 01/09/2018 Leukocytosis 10/22/2017 11/05/2017 Abdominal pain 10/22/2017 11/26/2017 Ileus 10/22/2017 11/05/2017 Diverticulitis 10/18/2017 04/29/2018 Iliotibial band syndrome, left leg 06/17/2017 07/24/2018 Cervicalgia 04/30/2014 04/29/2018 Lumbar radiculopathy 07/16/2013 07/04/2017 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 018 Piriformis syndrome of left side 01/23/2013 07/04/2017 Trochanteric bursitis of left hip 01/23/2013 01/09/2018 Dyspnea 09/10/2012 07/04/2017 Neurocirculatory asthenia 09/10/20122016 Chronic shoulder pain 03/07/2012 06/12/2018 Hemorrhage of gastrointestinal tract, unspecifie d 03/15/2009 07/13/2016 Other and unspecified noninf ectious gastroenteritis and colitis(558.9) 12/15/2008 07/13/2016 Excessive or frequent menstruation 09/01/2008 10/20/2008 Urethrocele(618.03) 07/17/2008 10/20/2008 Acute sinusitis, unspecified 07/15/2007 Headache(784.0) 07/12/2007 03/16/2016 Mild dysplasia of cervix 04/19/2007 016 Irregular menstrual cycle 04/19/20072008 Postcoital bleeding 04/19/2007 10/20/2008 Dyspareunia 04/19/2007 03/16/2016 Cystocele, midline 04/19/2007 10/20/2008 Female stress incontinence 04/19/200710/20 Urgency of urination 04/19/2007 03/16/2016 Mononeuritis 06/29/2006 01/09/2018 documented as of this encounter (statuses as of 01/24/2022) [facility] History of Past illness Narrative* Problem Noted Date Resolved Date Systemic infection 06/12/2018 07/24/2018 Intra-abdominal fluid collection 05/28/2018 06/03/2018 Last Assessment & Plan: Assessment: -loculated presacral fluid collection seen on CT 05/28/2018 PLAN: -drain placed -trend output Postoperative ileus 05/27/2018 06/03/2018 Last Assessment & Plan: Assessment: -NGT output decreased -passing BM PLAN: -remove NGT Pain managed using patient-controlled analgesia (SEROLOGIST) 05/22/2018 05/23/2018 Last Assessment & Plan: Assessment: -pain well controlled PLAN: -wean SEROLOGIST as able Post-operative state 05/21/2018 07/24/2018 Last Assessment & Plan: Assessment: -POD 10 Hartmanns reversal c/b post op ileus and intrabdominal fluid collection PLAN: -removed NGT -encourage ambulation -incentive spirometry Diverticulitis 05/20/2018 07/24/2018 Last Assessment & Plan: S/P Alfred's reversal. Minor emesis. Awaiting ROBF Colostomy present 12/17/2017 05/21/2018 Post-op pain 11/05/2017 03/27/2019 Last Assessment & Plan: Assessment: -well controlled PLAN: -continue multimodal pain regimen Hypokalemia 11/02/2017 11/05/2017 Patient has nasogastric tube 10/30/2017 PICC (peripherally inserted central catheter) in place 10/30/2017 11/05/2017 On total parenteral nutrition (TPN) 10/30/2017 11/05/[address] 10/30/2017 05/21/2018 Encounter for ostomy care education 10/30/2017 07/24/2018 Nausea 10/30/2017 11/05/2017 Encounter for nasogastric tube placement 018 11/05/2017 Hypocalcemia 10/25/2017 11/05/2017 Malnutrition of mild degree 10/25/201707/05 Last Assessment & Plan: Assessment: -per room attendants assessment PLAN: -discuss parenteral nutrition if prolonged NPO status Elevated serum creatinine 10/24/20172017 Hyponatremia 10/24/2017 10/25/2017 Abdominal distention 10/24/2017 11/05/2017 Superficial thrombophlebitis of both upper extre mities 10/24/2017 01/09/2018 Leukocytosis 10/22/2017 11/05/2017 Abdominal pain 10/22/2017 11/26/2017 Ileus 10/22/2017 11/05/2017 Diverticulitis 10/18/2017 04/29/2018 Iliotibial band syndrome, left leg 06/17/2017 07/24/2018 Cervicalgia 04/30/2014 04/29/2018 Lumbar radiculopathy 07/16/2013 07/04/2017 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 018 Piriformis syndrome of left side 01/23/2013 07/04/2017 Trochanteric bursitis of left hip 01/23/2013 01/09/2018 Dyspnea 09/10/2012 07/04/2017 Neurocirculatory asthenia 09/10/20122016 Chronic shoulder pain 03/07/2012 06/12/2018 Hemorrhage of gastrointestinal tract, unspecifie d 03/15/2009 07/13/2016 Other and unspecified noninf ectious gastroenteritis and colitis(558.9) 12/15/2008 07/13/2016 Excessive or frequent menstruation 09/01/2008 10/20/2008 Urethrocele(618.03) 07/17/2008 10/20/2008 Acute sinusitis, unspecified 07/15/2007 Headache(784.0) 07/12/2007 03/16/2016 Mild dysplasia of cervix 04/19/2007 016 Irregular menstrual cycle 04/19/20072008 Postcoital bleeding 04/19/2007 10/20/2008 Dyspareunia 04/19/2007 03/16/2016 Cystocele, midline 04/19/2007 10/20/2008 Female stress incontinence 04/19/200710/20 Urgency of urination 04/19/2007 03/16/2016 Mononeuritis 06/29/2006 01/09/2018 documented as of this encounter (statuses as of 01/24/2022) [facility] History of Past illness Narrative* Problem Noted Date Resolved Date Systemic infection 06/12/2018 07/24/2018 Intra-abdominal fluid collection 05/28/2018 06/03/2018 Last Assessment & Plan: Assessment: -loculated presacral fluid collection seen on CT 05/28/2018 PLAN: -drain placed -trend output Postoperative ileus 05/27/2018 06/03/2018 Last Assessment & Plan: Assessment: -NGT output decreased -passing BM PLAN: -remove NGT Pain managed using patient-controlled analgesia (SEROLOGIST) 05/22/2018 05/23/2018 Last Assessment & Plan: Assessment: -pain well controlled PLAN: -wean SEROLOGIST as able Post-operative state 05/21/2018 07/24/2018 Last Assessment & Plan: Assessment: -POD 10 Hartmanns reversal c/b post op ileus and intrabdominal fluid collection PLAN: -removed NGT -encourage ambulation -incentive spirometry Diverticulitis 05/20/2018 07/24/2018 Last Assessment & Plan: S/P Alfred's reversal. Minor emesis. Awaiting ROBF Colostomy present 12/17/2017 05/21/2018 Post-op pain 11/05/2017 03/27/2019 Last Assessment & Plan: Assessment: -well controlled PLAN: -continue multimodal pain regimen Hypokalemia 11/02/2017 11/05/2017 Patient has nasogastric tube 10/30/2017 PICC (peripherally inserted central catheter) in place 10/30/2017 11/05/2017 On total parenteral nutrition (TPN) 10/30/2017 11/05/[address] 10/30/2017 05/21/2018 Encounter for ostomy care education 10/30/2017 07/24/2018 Nausea 10/30/2017 11/05/2017 Encounter for nasogastric tube placement 018 11/05/2017 Hypocalcemia 10/25/2017 11/05/2017 Malnutrition of mild degree 10/25/201707/05 Last Assessment & Plan: Assessment: -per room attendants assessment PLAN: -discuss parenteral nutrition if prolonged NPO status Elevated serum creatinine 10/24/20172017 Hyponatremia 10/24/2017 10/25/2017 Abdominal distention 10/24/2017 11/05/2017 Superficial thrombophlebitis of both upper extre mities 10/24/2017 01/09/2018 Leukocytosis 10/22/2017 11/05/2017 Abdominal pain 10/22/2017 11/26/2017 Ileus 10/22/2017 11/05/2017 Diverticulitis 10/18/2017 04/29/2018 Iliotibial band syndrome, left leg 06/17/2017 07/24/2018 Cervicalgia 04/30/2014 04/29/2018 Lumbar radiculopathy 07/16/2013 07/04/2017 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 018 Piriformis syndrome of left side 01/23/2013 07/04/2017 Trochanteric bursitis of left hip 01/23/2013 01/09/2018 Dyspnea 09/10/2012 07/04/2017 Neurocirculatory asthenia 09/10/20122016 Chronic shoulder pain 03/07/2012 06/12/2018 Hemorrhage of gastrointestinal tract, unspecifie d 03/15/2009 07/13/2016 Other and unspecified noninf ectious gastroenteritis and colitis(558.9) 12/15/2008 07/13/2016 Excessive or frequent menstruation 09/01/2008 10/20/2008 Urethrocele(618.03) 07/17/2008 10/20/2008 Acute sinusitis, unspecified 07/15/2007 Headache(784.0) 07/12/2007 03/16/2016 Mild dysplasia of cervix 04/19/2007 016 Irregular menstrual cycle 04/19/20072008 Postcoital bleeding 04/19/2007 10/20/2008 Dyspareunia 04/19/2007 03/16/2016 Cystocele, midline 04/19/2007 10/20/2008 Female stress incontinence 04/19/200710/20 Urgency of urination 04/19/2007 03/16/2016 Mononeuritis 06/29/2006 01/09/2018 documented as of this encounter (statuses as of 02/01/2022) [facility] History of Past illness Narrative* Problem Noted Date Resolved Date Systemic infection 06/12/2018 07/24/2018 Intra-abdominal fluid collection 05/28/2018 06/03/2018 Last Assessment & Plan: Assessment: -loculated presacral fluid collection seen on CT 05/28/2018 PLAN: -drain placed -trend output Postoperative ileus 05/27/2018 06/03/2018 Last Assessment & Plan: Assessment: -NGT output decreased -passing BM PLAN: -remove NGT Pain managed using patient-controlled analgesia (SEROLOGIST) 05/22/2018 05/23/2018 Last Assessment & Plan: Assessment: -pain well controlled PLAN: -wean SEROLOGIST as able Post-operative state 05/21/2018 07/24/2018 Last Assessment & Plan: Assessment: -POD 10 Hartmanns reversal c/b post op ileus and intrabdominal fluid collection PLAN: -removed NGT -encourage ambulation -incentive spirometry Diverticulitis 05/20/2018 07/24/2018 Last Assessment & Plan: S/P Alfred's reversal. Minor emesis. Awaiting ROBF Colostomy present 12/17/2017 05/21/2018 Post-op pain 11/05/2017 03/27/2019 Last Assessment & Plan: Assessment: -well controlled PLAN: -continue multimodal pain regimen Hypokalemia 11/02/2017 11/05/2017 Patient has nasogastric tube 10/30/2017 PICC (peripherally inserted central catheter) in place 10/30/2017 11/05/2017 On total parenteral nutrition (TPN) 10/30/2017 11/05/[address] 10/30/2017 05/21/2018 Encounter for ostomy care education 10/30/2017 07/24/2018 Nausea 10/30/2017 11/05/2017 Encounter for nasogastric tube placement 018 11/05/2017 Hypocalcemia 10/25/2017 11/05/2017 Malnutrition of mild degree 10/25/201707/05 Last Assessment & Plan: Assessment: -per room attendants assessment PLAN: -discuss parenteral nutrition if prolonged NPO status Elevated serum creatinine 10/24/20172017 Hyponatremia 10/24/2017 10/25/2017 Abdominal distention 10/24/2017 11/05/2017 Superficial thrombophlebitis of both upper extre mities 10/24/2017 01/09/2018 Leukocytosis 10/22/2017 11/05/2017 Abdominal pain 10/22/2017 11/26/2017 Ileus 10/22/2017 11/05/2017 Diverticulitis 10/18/2017 04/29/2018 Iliotibial band syndrome, left leg 06/17/2017 07/24/2018 Cervicalgia 04/30/2014 04/29/2018 Lumbar radiculopathy 07/16/2013 07/04/2017 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 018 Piriformis syndrome of left side 01/23/2013 07/04/2017 Trochanteric bursitis of left hip 01/23/2013 01/09/2018 Dyspnea 09/10/2012 07/04/2017 Neurocirculatory asthenia 09/10/20122016 Chronic shoulder pain 03/07/2012 06/12/2018 Hemorrhage of gastrointestinal tract, unspecifie d 03/15/2009 07/13/2016 Other and unspecified noninf ectious gastroenteritis and colitis(558.9) 12/15/2008 07/13/2016 Excessive or frequent menstruation 09/01/2008 10/20/2008 Urethrocele(618.03) 07/17/2008 10/20/2008 Acute sinusitis, unspecified 07/15/2007 Headache(784.0) 07/12/2007 03/16/2016 Mild dysplasia of cervix 04/19/2007 016 Irregular menstrual cycle 04/19/20072008 Postcoital bleeding 04/19/2007 10/20/2008 Dyspareunia 04/19/2007 03/16/2016 Cystocele, midline 04/19/2007 10/20/2008 Female stress incontinence 04/19/200710/20 Urgency of urination 04/19/2007 03/16/2016 Mononeuritis 06/29/2006 01/09/2018 documented as of this encounter (statuses as of 02/01/2022) [facility] History of Past illness Narrative* Problem Noted Date Resolved Date Systemic infection 06/12/2018 07/24/2018 Intra-abdominal fluid collection 05/28/2018 06/03/2018 Last Assessment & Plan: Assessment: -loculated presacral fluid collection seen on CT 05/28/2018 PLAN: -drain placed -trend output Postoperative ileus 05/27/2018 06/03/2018 Last Assessment & Plan: Assessment: -NGT output decreased -passing BM PLAN: -remove NGT Pain managed using patient-controlled analgesia (SEROLOGIST) 05/22/2018 05/23/2018 Last Assessment & Plan: Assessment: -pain well controlled PLAN: -wean SEROLOGIST as able Post-operative state 05/21/2018 07/24/2018 Last Assessment & Plan: Assessment: -POD 10 Hartmanns reversal c/b post op ileus and intrabdominal fluid collection PLAN: -removed NGT -encourage ambulation -incentive spirometry Diverticulitis 05/20/2018 07/24/2018 Last Assessment & Plan: S/P Alfred's reversal. Minor emesis. Awaiting ROBF Colostomy present 12/17/2017 05/21/2018 Post-op pain 11/05/2017 03/27/2019 Last Assessment & Plan: Assessment: -well controlled PLAN: -continue multimodal pain regimen Hypokalemia 11/02/2017 11/05/2017 Patient has nasogastric tube 10/30/2017 PICC (peripherally inserted central catheter) in place 10/30/2017 11/05/2017 On total parenteral nutrition (TPN) 10/30/2017 11/05/[address] 10/30/2017 05/21/2018 Encounter for ostomy care education 10/30/2017 07/24/2018 Nausea 10/30/2017 11/05/2017 Encounter for nasogastric tube placement 018 11/05/2017 Hypocalcemia 10/25/2017 11/05/2017 Malnutrition of mild degree 10/25/201707/05 Last Assessment & Plan: Assessment: -per room attendants assessment PLAN: -discuss parenteral nutrition if prolonged NPO status Elevated serum creatinine 10/24/20172017 Hyponatremia 10/24/2017 10/25/2017 Abdominal distention 10/24/2017 11/05/2017 Superficial thrombophlebitis of both upper extre mities 10/24/2017 01/09/2018 Leukocytosis 10/22/2017 11/05/2017 Abdominal pain 10/22/2017 11/26/2017 Ileus 10/22/2017 11/05/2017 Diverticulitis 10/18/2017 04/29/2018 Iliotibial band syndrome, left leg 06/17/2017 07/24/2018 Cervicalgia 04/30/2014 04/29/2018 Lumbar radiculopathy 07/16/2013 07/04/2017 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 018 Piriformis syndrome of left side 01/23/2013 07/04/2017 Trochanteric bursitis of left hip 01/23/2013 01/09/2018 Dyspnea 09/10/2012 07/04/2017 Neurocirculatory asthenia 09/10/20122016 Chronic shoulder pain 03/07/2012 06/12/2018 Hemorrhage of gastrointestinal tract, unspecifie d 03/15/2009 07/13/2016 Other and unspecified noninf ectious gastroenteritis and colitis(558.9) 12/15/2008 07/13/2016 Excessive or frequent menstruation 09/01/2008 10/20/2008 Urethrocele(618.03) 07/17/2008 10/20/2008 Acute sinusitis, unspecified 07/15/2007 Headache(784.0) 07/12/2007 03/16/2016 Mild dysplasia of cervix 04/19/2007 016 Irregular menstrual cycle 04/19/20072008 Postcoital bleeding 04/19/2007 10/20/2008 Dyspareunia 04/19/2007 03/16/2016 Cystocele, midline 04/19/2007 10/20/2008 Female stress incontinence 04/19/200710/20 Urgency of urination 04/19/2007 03/16/2016 Mononeuritis 06/29/2006 01/09/2018 documented as of this encounter (statuses as of 02/04/2022) [facility]10[facility] History of Past illness Narrative* Problem Noted Date Resolved Date Systemic infection 06/12/2018 07/24/2018 Intra-abdominal fluid collection 05/28/2018 06/03/2018 Last Assessment & Plan: Assessment: -loculated presacral fluid collection seen on CT 05/28/2018 PLAN: -drain placed -trend output Postoperative ileus 05/27/2018 06/03/2018 Last Assessment & Plan: Assessment: -NGT output decreased -passing BM PLAN: -remove NGT Pain managed using patient-controlled analgesia (SEROLOGIST) 05/22/2018 05/23/2018 Last Assessment & Plan: Assessment: -pain well controlled PLAN: -wean SEROLOGIST as able Post-operative state 05/21/2018 07/24/2018 Last Assessment & Plan: Assessment: -POD 10 Hartmanns reversal c/b post op ileus and intrabdominal fluid collection PLAN: -removed NGT -encourage ambulation -incentive spirometry Diverticulitis 05/20/2018 07/24/2018 Last Assessment & Plan: S/P Alfred's reversal. Minor emesis. Awaiting ROBF Colostomy present 12/17/2017 05/21/2018 Post-op pain 11/05/2017 03/27/2019 Last Assessment & Plan: Assessment: -well controlled PLAN: -continue multimodal pain regimen Hypokalemia 11/02/2017 11/05/2017 Patient has nasogastric tube 10/30/2017 PICC (peripherally inserted central catheter) in place 10/30/2017 11/05/2017 On total parenteral nutrition (TPN) 10/30/2017 11/05/[address] 10/30/2017 05/21/2018 Encounter for ostomy care education 10/30/2017 07/24/2018 Nausea 10/30/2017 11/05/2017 Encounter for nasogastric tube placement 018 11/05/2017 Hypocalcemia 10/25/2017 11/05/2017 Malnutrition of mild degree 10/25/201707/05 Last Assessment & Plan: Assessment: -per room attendants assessment PLAN: -discuss parenteral nutrition if prolonged NPO status Elevated serum creatinine 10/24/20172017 Hyponatremia 10/24/2017 10/25/2017 Abdominal distention 10/24/2017 11/05/2017 Superficial thrombophlebitis of both upper extre mities 10/24/2017 01/09/2018 Leukocytosis 10/22/2017 11/05/2017 Abdominal pain 10/22/2017 11/26/2017 Ileus 10/22/2017 11/05/2017 Diverticulitis 10/18/2017 04/29/2018 Iliotibial band syndrome, left leg 06/17/2017 07/24/2018 Cervicalgia 04/30/2014 04/29/2018 Lumbar radiculopathy 07/16/2013 07/04/2017 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 018 Piriformis syndrome of left side 01/23/2013 07/04/2017 Trochanteric bursitis of left hip 01/23/2013 01/09/2018 Dyspnea 09/10/2012 07/04/2017 Neurocirculatory asthenia 09/10/20122016 Chronic shoulder pain 03/07/2012 06/12/2018 Hemorrhage of gastrointestinal tract, unspecifie d 03/15/2009 07/13/2016 Other and unspecified noninf ectious gastroenteritis and colitis(558.9) 12/15/2008 07/13/2016 Excessive or frequent menstruation 09/01/2008 10/20/2008 Urethrocele(618.03) 07/17/2008 10/20/2008 Acute sinusitis, unspecified 07/15/2007 Headache(784.0) 07/12/2007 03/16/2016 Mild dysplasia of cervix 04/19/2007 016 Irregular menstrual cycle 04/19/20072008 Postcoital bleeding 04/19/2007 10/20/2008 Dyspareunia 04/19/2007 03/16/2016 Cystocele, midline 04/19/2007 10/20/2008 Female stress incontinence 04/19/200710/20 Urgency of urination 04/19/2007 03/16/2016 Mononeuritis 06/29/2006 01/09/2018 documented as of this encounter (statuses as of 02/06/2022) [facility] History of Past illness Narrative* Problem Noted Date Resolved Date Systemic infection 06/12/2018 07/24/2018 Intra-abdominal fluid collection 05/28/2018 06/03/2018 Last Assessment & Plan: Assessment: -loculated presacral fluid collection seen on CT 05/28/2018 PLAN: -drain placed -trend output Postoperative ileus 05/27/2018 06/03/2018 Last Assessment & Plan: Assessment: -NGT output decreased -passing BM PLAN: -remove NGT Pain managed using patient-controlled analgesia (SEROLOGIST) 05/22/2018 05/23/2018 Last Assessment & Plan: Assessment: -pain well controlled PLAN: -wean SEROLOGIST as able Post-operative state 05/21/2018 07/24/2018 Last Assessment & Plan: Assessment: -POD 10 Hartmanns reversal c/b post op ileus and intrabdominal fluid collection PLAN: -removed NGT -encourage ambulation -incentive spirometry Diverticulitis 05/20/2018 07/24/2018 Last Assessment & Plan: S/P Alfred's reversal. Minor emesis. Awaiting ROBF Colostomy present 12/17/2017 05/21/2018 Post-op pain 11/05/2017 03/27/2019 Last Assessment & Plan: Assessment: -well controlled PLAN: -continue multimodal pain regimen Hypokalemia 11/02/2017 11/05/2017 Patient has nasogastric tube 10/30/2017 PICC (peripherally inserted central catheter) in place 10/30/2017 11/05/2017 On total parenteral nutrition (TPN) 10/30/2017 11/05/[address] 10/30/2017 05/21/2018 Encounter for ostomy care education 10/30/2017 07/24/2018 Nausea 10/30/2017 11/05/2017 Encounter for nasogastric tube placement 018 11/05/2017 Hypocalcemia 10/25/2017 11/05/2017 Malnutrition of mild degree 10/25/201707/05 Last Assessment & Plan: Assessment: -per room attendants assessment PLAN: -discuss parenteral nutrition if prolonged NPO status Elevated serum creatinine 10/24/20172017 Hyponatremia 10/24/2017 10/25/2017 Abdominal distention 10/24/2017 11/05/2017 Superficial thrombophlebitis of both upper extre mities 10/24/2017 01/09/2018 Leukocytosis 10/22/2017 11/05/2017 Abdominal pain 10/22/2017 11/26/2017 Ileus 10/22/2017 11/05/2017 Diverticulitis 10/18/2017 04/29/2018 Iliotibial band syndrome, left leg 06/17/2017 07/24/2018 Cervicalgia 04/30/2014 04/29/2018 Lumbar radiculopathy 07/16/2013 07/04/2017 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 018 Piriformis syndrome of left side 01/23/2013 07/04/2017 Trochanteric bursitis of left hip 01/23/2013 01/09/2018 Dyspnea 09/10/2012 07/04/2017 Neurocirculatory asthenia 09/10/20122016 Chronic shoulder pain 03/07/2012 06/12/2018 Hemorrhage of gastrointestinal tract, unspecifie d 03/15/2009 07/13/2016 Other and unspecified noninf ectious gastroenteritis and colitis(558.9) 12/15/2008 07/13/2016 Excessive or frequent menstruation 09/01/2008 10/20/2008 Urethrocele(618.03) 07/17/2008 10/20/2008 Acute sinusitis, unspecified 07/15/2007 Headache(784.0) 07/12/2007 03/16/2016 Mild dysplasia of cervix 04/19/2007 016 Irregular menstrual cycle 04/19/20072008 Postcoital bleeding 04/19/2007 10/20/2008 Dyspareunia 04/19/2007 03/16/2016 Cystocele, midline 04/19/2007 10/20/2008 Female stress incontinence 04/19/200710/20 Urgency of urination 04/19/2007 03/16/2016 Mononeuritis 06/29/2006 01/09/2018 documented as of this encounter (statuses as of 02/17/2022) [facility]10[facility] History of Past illness Narrative* Problem Noted Date Resolved Date Systemic infection 06/12/2018 07/24/2018 Intra-abdominal fluid collection 05/28/2018 06/03/2018 Last Assessment & Plan: Assessment: -loculated presacral fluid collection seen on CT 05/28/2018 PLAN: -drain placed -trend output Postoperative ileus 05/27/2018 06/03/2018 Last Assessment & Plan: Assessment: -NGT output decreased -passing BM PLAN: -remove NGT Pain managed using patient-controlled analgesia (SEROLOGIST) 05/22/2018 05/23/2018 Last Assessment & Plan: Assessment: -pain well controlled PLAN: -wean SEROLOGIST as able Post-operative state 05/21/2018 07/24/2018 Last Assessment & Plan: Assessment: -POD 10 Hartmanns reversal c/b post op ileus and intrabdominal fluid collection PLAN: -removed NGT -encourage ambulation -incentive spirometry Diverticulitis 05/20/2018 07/24/2018 Last Assessment & Plan: S/P Alfred's reversal. Minor emesis. Awaiting ROBF Colostomy present 12/17/2017 05/21/2018 Post-op pain 11/05/2017 03/27/2019 Last Assessment & Plan: Assessment: -well controlled PLAN: -continue multimodal pain regimen Hypokalemia 11/02/2017 11/05/2017 Patient has nasogastric tube 10/30/2017 PICC (peripherally inserted central catheter) in place 10/30/2017 11/05/2017 On total parenteral nutrition (TPN) 10/30/2017 11/05/[address] 10/30/2017 05/21/2018 Encounter for ostomy care education 10/30/2017 07/24/2018 Nausea 10/30/2017 11/05/2017 Encounter for nasogastric tube placement 018 11/05/2017 Hypocalcemia 10/25/2017 11/05/2017 Malnutrition of mild degree 10/25/201707/05 Last Assessment & Plan: Assessment: -per room attendants assessment PLAN: -discuss parenteral nutrition if prolonged NPO status Elevated serum creatinine 10/24/20172017 Hyponatremia 10/24/2017 10/25/2017 Abdominal distention 10/24/2017 11/05/2017 Superficial thrombophlebitis of both upper extre mities 10/24/2017 01/09/2018 Leukocytosis 10/22/2017 11/05/2017 Abdominal pain 10/22/2017 11/26/2017 Ileus 10/22/2017 11/05/2017 Diverticulitis 10/18/2017 04/29/2018 Iliotibial band syndrome, left leg 06/17/2017 07/24/2018 Cervicalgia 04/30/2014 04/29/2018 Lumbar radiculopathy 07/16/2013 07/04/2017 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 018 Piriformis syndrome of left side 01/23/2013 07/04/2017 Trochanteric bursitis of left hip 01/23/2013 01/09/2018 Dyspnea 09/10/2012 07/04/2017 Neurocirculatory asthenia 09/10/20122016 Chronic shoulder pain 03/07/2012 06/12/2018 Hemorrhage of gastrointestinal tract, unspecifie d 03/15/2009 07/13/2016 Other and unspecified noninf ectious gastroenteritis and colitis(558.9) 12/15/2008 07/13/2016 Excessive or frequent menstruation 09/01/2008 10/20/2008 Urethrocele(618.03) 07/17/2008 10/20/2008 Acute sinusitis, unspecified 07/15/2007 Headache(784.0) 07/12/2007 03/16/2016 Mild dysplasia of cervix 04/19/2007 016 Irregular menstrual cycle 04/19/20072008 Postcoital bleeding 04/19/2007 10/20/2008 Dyspareunia 04/19/2007 03/16/2016 Cystocele, midline 04/19/2007 10/20/2008 Female stress incontinence 04/19/200710/20 Urgency of urination 04/19/2007 03/16/2016 Mononeuritis 06/29/2006 01/09/2018 documented as of this encounter (statuses as of 02/23/2022) [facility] History of Past illness Narrative* Problem Noted Date Resolved Date Systemic infection 06/12/2018 07/24/2018 Intra-abdominal fluid collection 05/28/2018 06/03/2018 Last Assessment & Plan: Assessment: -loculated presacral fluid collection seen on CT 05/28/2018 PLAN: -drain placed -trend output Postoperative ileus 05/27/2018 06/03/2018 Last Assessment & Plan: Assessment: -NGT output decreased -passing BM PLAN: -remove NGT Pain managed using patient-controlled analgesia (SEROLOGIST) 05/22/2018 05/23/2018 Last Assessment & Plan: Assessment: -pain well controlled PLAN: -wean SEROLOGIST as able Post-operative state 05/21/2018 07/24/2018 Last Assessment & Plan: Assessment: -POD 10 Hartmanns reversal c/b post op ileus and intrabdominal fluid collection PLAN: -removed NGT -encourage ambulation -incentive spirometry Diverticulitis 05/20/2018 07/24/2018 Last Assessment & Plan: S/P Alfred's reversal. Minor emesis. Awaiting ROBF Colostomy present 12/17/2017 05/21/2018 Post-op pain 11/05/2017 03/27/2019 Last Assessment & Plan: Assessment: -well controlled PLAN: -continue multimodal pain regimen Hypokalemia 11/02/2017 11/05/2017 Patient has nasogastric tube 10/30/2017 PICC (peripherally inserted central catheter) in place 10/30/2017 11/05/2017 On total parenteral nutrition (TPN) 10/30/2017 11/05/[address] 10/30/2017 05/21/2018 Encounter for ostomy care education 10/30/2017 07/24/2018 Nausea 10/30/2017 11/05/2017 Encounter for nasogastric tube placement 018 11/05/2017 Hypocalcemia 10/25/2017 11/05/2017 Malnutrition of mild degree 10/25/201707/05 Last Assessment & Plan: Assessment: -per room attendants assessment PLAN: -discuss parenteral nutrition if prolonged NPO status Elevated serum creatinine 10/24/20172017 Hyponatremia 10/24/2017 10/25/2017 Abdominal distention 10/24/2017 11/05/2017 Superficial thrombophlebitis of both upper extre mities 10/24/2017 01/09/2018 Leukocytosis 10/22/2017 11/05/2017 Abdominal pain 10/22/2017 11/26/2017 Ileus 10/22/2017 11/05/2017 Diverticulitis 10/18/2017 04/29/2018 Iliotibial band syndrome, left leg 06/17/2017 07/24/2018 Cervicalgia 04/30/2014 04/29/2018 Lumbar radiculopathy 07/16/2013 07/04/2017 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 018 Piriformis syndrome of left side 01/23/2013 07/04/2017 Trochanteric bursitis of left hip 01/23/2013 01/09/2018 Dyspnea 09/10/2012 07/04/2017 Neurocirculatory asthenia 09/10/20122016 Chronic shoulder pain 03/07/2012 06/12/2018 Hemorrhage of gastrointestinal tract, unspecifie d 03/15/2009 07/13/2016 Other and unspecified noninf ectious gastroenteritis and colitis(558.9) 12/15/2008 07/13/2016 Excessive or frequent menstruation 09/01/2008 10/20/2008 Urethrocele(618.03) 07/17/2008 10/20/2008 Acute sinusitis, unspecified 07/15/2007 Headache(784.0) 07/12/2007 03/16/2016 Mild dysplasia of cervix 04/19/2007 016 Irregular menstrual cycle 04/19/20072008 Postcoital bleeding 04/19/2007 10/20/2008 Dyspareunia 04/19/2007 03/16/2016 Cystocele, midline 04/19/2007 10/20/2008 Female stress incontinence 04/19/200710/20 Urgency of urination 04/19/2007 03/16/2016 Mononeuritis 06/29/2006 01/09/2018 documented as of this encounter (statuses as of 02/23/2022) [facility] History of Past illness Narrative* Problem Noted Date Resolved Date Systemic infection 06/12/2018 07/24/2018 Intra-abdominal fluid collection 05/28/2018 06/03/2018 Last Assessment & Plan: Assessment: -loculated presacral fluid collection seen on CT 05/28/2018 PLAN: -drain placed -trend output Postoperative ileus 05/27/2018 06/03/2018 Last Assessment & Plan: Assessment: -NGT output decreased -passing BM PLAN: -remove NGT Pain managed using patient-controlled analgesia (SEROLOGIST) 05/22/2018 05/23/2018 Last Assessment & Plan: Assessment: -pain well controlled PLAN: -wean SEROLOGIST as able Post-operative state 05/21/2018 07/24/2018 Last Assessment & Plan: Assessment: -POD 10 Hartmanns reversal c/b post op ileus and intrabdominal fluid collection PLAN: -removed NGT -encourage ambulation -incentive spirometry Diverticulitis 05/20/2018 07/24/2018 Last Assessment & Plan: S/P Alfred's reversal. Minor emesis. Awaiting ROBF Colostomy present 12/17/2017 05/21/2018 Post-op pain 11/05/2017 03/27/2019 Last Assessment & Plan: Assessment: -well controlled PLAN: -continue multimodal pain regimen Hypokalemia 11/02/2017 11/05/2017 Patient has nasogastric tube 10/30/2017 PICC (peripherally inserted central catheter) in place 10/30/2017 11/05/2017 On total parenteral nutrition (TPN) 10/30/2017 11/05/[address] 10/30/2017 05/21/2018 Encounter for ostomy care education 10/30/2017 07/24/2018 Nausea 10/30/2017 11/05/2017 Encounter for nasogastric tube placement 018 11/05/2017 Hypocalcemia 10/25/2017 11/05/2017 Malnutrition of mild degree 10/25/201707/05 Last Assessment & Plan: Assessment: -per room attendants assessment PLAN: -discuss parenteral nutrition if prolonged NPO status Elevated serum creatinine 10/24/20172017 Hyponatremia 10/24/2017 10/25/2017 Abdominal distention 10/24/2017 11/05/2017 Superficial thrombophlebitis of both upper extre mities 10/24/2017 01/09/2018 Leukocytosis 10/22/2017 11/05/2017 Abdominal pain 10/22/2017 11/26/2017 Ileus 10/22/2017 11/05/2017 Diverticulitis 10/18/2017 04/29/2018 Iliotibial band syndrome, left leg 06/17/2017 07/24/2018 Cervicalgia 04/30/2014 04/29/2018 Lumbar radiculopathy 07/16/2013 07/04/2017 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 018 Piriformis syndrome of left side 01/23/2013 07/04/2017 Trochanteric bursitis of left hip 01/23/2013 01/09/2018 Dyspnea 09/10/2012 07/04/2017 Neurocirculatory asthenia 09/10/20122016 Chronic shoulder pain 03/07/2012 06/12/2018 Hemorrhage of gastrointestinal tract, unspecifie d 03/15/2009 07/13/2016 Other and unspecified noninf ectious gastroenteritis and colitis(558.9) 12/15/2008 07/13/2016 Excessive or frequent menstruation 09/01/2008 10/20/2008 Urethrocele(618.03) 07/17/2008 10/20/2008 Acute sinusitis, unspecified 07/15/2007 Headache(784.0) 07/12/2007 03/16/2016 Mild dysplasia of cervix 04/19/2007 016 Irregular menstrual cycle 04/19/20072008 Postcoital bleeding 04/19/2007 10/20/2008 Dyspareunia 04/19/2007 03/16/2016 Cystocele, midline 04/19/2007 10/20/2008 Female stress incontinence 04/19/200710/20 Urgency of urination 04/19/2007 03/16/2016 Mononeuritis 06/29/2006 01/09/2018 documented as of this encounter (statuses as of 02/24/2022) [facility] History of Past illness Narrative* Problem Noted Date Resolved Date Systemic infection 06/12/2018 07/24/2018 Intra-abdominal fluid collection 05/28/2018 06/03/2018 Last Assessment & Plan: Assessment: -loculated presacral fluid collection seen on CT 05/28/2018 PLAN: -drain placed -trend output Postoperative ileus 05/27/2018 06/03/2018 Last Assessment & Plan: Assessment: -NGT output decreased -passing BM PLAN: -remove NGT Pain managed using patient-controlled analgesia (SEROLOGIST) 05/22/2018 05/23/2018 Last Assessment & Plan: Assessment: -pain well controlled PLAN: -wean SEROLOGIST as able Post-operative state 05/21/2018 07/24/2018 Last Assessment & Plan: Assessment: -POD 10 Hartmanns reversal c/b post op ileus and intrabdominal fluid collection PLAN: -removed NGT -encourage ambulation -incentive spirometry Diverticulitis 05/20/2018 07/24/2018 Last Assessment & Plan: S/P Alfred's reversal. Minor emesis. Awaiting ROBF Colostomy present 12/17/2017 05/21/2018 Post-op pain 11/05/2017 03/27/2019 Last Assessment & Plan: Assessment: -well controlled PLAN: -continue multimodal pain regimen Hypokalemia 11/02/2017 11/05/2017 Patient has nasogastric tube 10/30/2017 PICC (peripherally inserted central catheter) in place 10/30/2017 11/05/2017 On total parenteral nutrition (TPN) 10/30/2017 11/05/[address] 10/30/2017 05/21/2018 Encounter for ostomy care education 10/30/2017 07/24/2018 Nausea 10/30/2017 11/05/2017 Encounter for nasogastric tube placement 018 11/05/2017 Hypocalcemia 10/25/2017 11/05/2017 Malnutrition of mild degree 10/25/201707/05 Last Assessment & Plan: Assessment: -per room attendants assessment PLAN: -discuss parenteral nutrition if prolonged NPO status Elevated serum creatinine 10/24/20172017 Hyponatremia 10/24/2017 10/25/2017 Abdominal distention 10/24/2017 11/05/2017 Superficial thrombophlebitis of both upper extre mities 10/24/2017 01/09/2018 Leukocytosis 10/22/2017 11/05/2017 Abdominal pain 10/22/2017 11/26/2017 Ileus 10/22/2017 11/05/2017 Diverticulitis 10/18/2017 04/29/2018 Iliotibial band syndrome, left leg 06/17/2017 07/24/2018 Cervicalgia 04/30/2014 04/29/2018 Lumbar radiculopathy 07/16/2013 07/04/2017 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 018 Piriformis syndrome of left side 01/23/2013 07/04/2017 Trochanteric bursitis of left hip 01/23/2013 01/09/2018 Dyspnea 09/10/2012 07/04/2017 Neurocirculatory asthenia 09/10/20122016 Chronic shoulder pain 03/07/2012 06/12/2018 Hemorrhage of gastrointestinal tract, unspecifie d 03/15/2009 07/13/2016 Other and unspecified noninf ectious gastroenteritis and colitis(558.9) 12/15/2008 07/13/2016 Excessive or frequent menstruation 09/01/2008 10/20/2008 Urethrocele(618.03) 07/17/2008 10/20/2008 Acute sinusitis, unspecified 07/15/2007 Headache(784.0) 07/12/2007 03/16/2016 Mild dysplasia of cervix 04/19/2007 016 Irregular menstrual cycle 04/19/20072008 Postcoital bleeding 04/19/2007 10/20/2008 Dyspareunia 04/19/2007 03/16/2016 Cystocele, midline 04/19/2007 10/20/2008 Female stress incontinence 04/19/200710/20 Urgency of urination 04/19/2007 03/16/2016 Mononeuritis 06/29/2006 01/09/2018 documented as of this encounter (statuses as of 02/24/2022) [facility] History of Past illness Narrative* Problem Noted Date Resolved Date Systemic infection 06/12/2018 07/24/2018 Intra-abdominal fluid collection 05/28/2018 06/03/2018 Last Assessment & Plan: Assessment: -loculated presacral fluid collection seen on CT 05/28/2018 PLAN: -drain placed -trend output Postoperative ileus 05/27/2018 06/03/2018 Last Assessment & Plan: Assessment: -NGT output decreased -passing BM PLAN: -remove NGT Pain managed using patient-controlled analgesia (SEROLOGIST) 05/22/2018 05/23/2018 Last Assessment & Plan: Assessment: -pain well controlled PLAN: -wean SEROLOGIST as able Post-operative state 05/21/2018 07/24/2018 Last Assessment & Plan: Assessment: -POD 10 Hartmanns reversal c/b post op ileus and intrabdominal fluid collection PLAN: -removed NGT -encourage ambulation -incentive spirometry Diverticulitis 05/20/2018 07/24/2018 Last Assessment & Plan: S/P Alfred's reversal. Minor emesis. Awaiting ROBF Colostomy present 12/17/2017 05/21/2018 Post-op pain 11/05/2017 03/27/2019 Last Assessment & Plan: Assessment: -well controlled PLAN: -continue multimodal pain regimen Hypokalemia 11/02/2017 11/05/2017 Patient has nasogastric tube 10/30/2017 PICC (peripherally inserted central catheter) in place 10/30/2017 11/05/2017 On total parenteral nutrition (TPN) 10/30/2017 11/05/[address] 10/30/2017 05/21/2018 Encounter for ostomy care education 10/30/2017 07/24/2018 Nausea 10/30/2017 11/05/2017 Encounter for nasogastric tube placement 018 11/05/2017 Hypocalcemia 10/25/2017 11/05/2017 Malnutrition of mild degree 10/25/201707/05 Last Assessment & Plan: Assessment: -per room attendants assessment PLAN: -discuss parenteral nutrition if prolonged NPO status Elevated serum creatinine 10/24/20172017 Hyponatremia 10/24/2017 10/25/2017 Abdominal distention 10/24/2017 11/05/2017 Superficial thrombophlebitis of both upper extre mities 10/24/2017 01/09/2018 Leukocytosis 10/22/2017 11/05/2017 Abdominal pain 10/22/2017 11/26/2017 Ileus 10/22/2017 11/05/2017 Diverticulitis 10/18/2017 04/29/2018 Iliotibial band syndrome, left leg 06/17/2017 07/24/2018 Cervicalgia 04/30/2014 04/29/2018 Lumbar radiculopathy 07/16/2013 07/04/2017 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 018 Piriformis syndrome of left side 01/23/2013 07/04/2017 Trochanteric bursitis of left hip 01/23/2013 01/09/2018 Dyspnea 09/10/2012 07/04/2017 Neurocirculatory asthenia 09/10/20122016 Chronic shoulder pain 03/07/2012 06/12/2018 Hemorrhage of gastrointestinal tract, unspecifie d 03/15/2009 07/13/2016 Other and unspecified noninf ectious gastroenteritis and colitis(558.9) 12/15/2008 07/13/2016 Excessive or frequent menstruation 09/01/2008 10/20/2008 Urethrocele(618.03) 07/17/2008 10/20/2008 Acute sinusitis, unspecified 07/15/2007 Headache(784.0) 07/12/2007 03/16/2016 Mild dysplasia of cervix 04/19/2007 016 Irregular menstrual cycle 04/19/20072008 Postcoital bleeding 04/19/2007 10/20/2008 Dyspareunia 04/19/2007 03/16/2016 Cystocele, midline 04/19/2007 10/20/2008 Female stress incontinence 04/19/200710/20 Urgency of urination 04/19/2007 03/16/2016 Mononeuritis 06/29/2006 01/09/2018 documented as of this encounter (statuses as of 03/01/2022) [facility] History of Past illness Narrative* Problem Noted Date Resolved Date Systemic infection 06/12/2018 07/24/2018 Intra-abdominal fluid collection 05/28/2018 06/03/2018 Last Assessment & Plan: Assessment: -loculated presacral fluid collection seen on CT 05/28/2018 PLAN: -drain placed -trend output Postoperative ileus 05/27/2018 06/03/2018 Last Assessment & Plan: Assessment: -NGT output decreased -passing BM PLAN: -remove NGT Pain managed using patient-controlled analgesia (SEROLOGIST) 05/22/2018 05/23/2018 Last Assessment & Plan: Assessment: -pain well controlled PLAN: -wean SEROLOGIST as able Post-operative state 05/21/2018 07/24/2018 Last Assessment & Plan: Assessment: -POD 10 Hartmanns reversal c/b post op ileus and intrabdominal fluid collection PLAN: -removed NGT -encourage ambulation -incentive spirometry Diverticulitis 05/20/2018 07/24/2018 Last Assessment & Plan: S/P Alfred's reversal. Minor emesis. Awaiting ROBF Colostomy present 12/17/2017 05/21/2018 Post-op pain 11/05/2017 03/27/2019 Last Assessment & Plan: Assessment: -well controlled PLAN: -continue multimodal pain regimen Hypokalemia 11/02/2017 11/05/2017 Patient has nasogastric tube 10/30/2017 PICC (peripherally inserted central catheter) in place 10/30/2017 11/05/2017 On total parenteral nutrition (TPN) 10/30/2017 11/05/[address] 10/30/2017 05/21/2018 Encounter for ostomy care education 10/30/2017 07/24/2018 Nausea 10/30/2017 11/05/2017 Encounter for nasogastric tube placement 018 11/05/2017 Hypocalcemia 10/25/2017 11/05/2017 Malnutrition of mild degree 10/25/201707/05 Last Assessment & Plan: Assessment: -per room attendants assessment PLAN: -discuss parenteral nutrition if prolonged NPO status Elevated serum creatinine 10/24/20172017 Hyponatremia 10/24/2017 10/25/2017 Abdominal distention 10/24/2017 11/05/2017 Superficial thrombophlebitis of both upper extre mities 10/24/2017 01/09/2018 Leukocytosis 10/22/2017 11/05/2017 Abdominal pain 10/22/2017 11/26/2017 Ileus 10/22/2017 11/05/2017 Diverticulitis 10/18/2017 04/29/2018 Iliotibial band syndrome, left leg 06/17/2017 07/24/2018 Cervicalgia 04/30/2014 04/29/2018 Lumbar radiculopathy 07/16/2013 07/04/2017 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 018 Piriformis syndrome of left side 01/23/2013 07/04/2017 Trochanteric bursitis of left hip 01/23/2013 01/09/2018 Dyspnea 09/10/2012 07/04/2017 Neurocirculatory asthenia 09/10/20122016 Chronic shoulder pain 03/07/2012 06/12/2018 Hemorrhage of gastrointestinal tract, unspecifie d 03/15/2009 07/13/2016 Other and unspecified noninf ectious gastroenteritis and colitis(558.9) 12/15/2008 07/13/2016 Excessive or frequent menstruation 09/01/2008 10/20/2008 Urethrocele(618.03) 07/17/2008 10/20/2008 Acute sinusitis, unspecified 07/15/2007 Headache(784.0) 07/12/2007 03/16/2016 Mild dysplasia of cervix 04/19/2007 016 Irregular menstrual cycle 04/19/20072008 Postcoital bleeding 04/19/2007 10/20/2008 Dyspareunia 04/19/2007 03/16/2016 Cystocele, midline 04/19/2007 10/20/2008 Female stress incontinence 04/19/200710/20 Urgency of urination 04/19/2007 03/16/2016 Mononeuritis 06/29/2006 01/09/2018 documented as of this encounter (statuses as of 03/08/2022) [facility] History of Past illness Narrative* Problem Noted Date Resolved Date Systemic infection 06/12/2018 07/24/2018 Intra-abdominal fluid collection 05/28/2018 06/03/2018 Last Assessment & Plan: Assessment: -loculated presacral fluid collection seen on CT 05/28/2018 PLAN: -drain placed -trend output Postoperative ileus 05/27/2018 06/03/2018 Last Assessment & Plan: Assessment: -NGT output decreased -passing BM PLAN: -remove NGT Pain managed using patient-controlled analgesia (SEROLOGIST) 05/22/2018 05/23/2018 Last Assessment & Plan: Assessment: -pain well controlled PLAN: -wean SEROLOGIST as able Post-operative state 05/21/2018 07/24/2018 Last Assessment & Plan: Assessment: -POD 10 Hartmanns reversal c/b post op ileus and intrabdominal fluid collection PLAN: -removed NGT -encourage ambulation -incentive spirometry Diverticulitis 05/20/2018 07/24/2018 Last Assessment & Plan: S/P Alfred's reversal. Minor emesis. Awaiting ROBF Colostomy present 12/17/2017 05/21/2018 Post-op pain 11/05/2017 03/27/2019 Last Assessment & Plan: Assessment: -well controlled PLAN: -continue multimodal pain regimen Hypokalemia 11/02/2017 11/05/2017 Patient has nasogastric tube 10/30/2017 PICC (peripherally inserted central catheter) in place 10/30/2017 11/05/2017 On total parenteral nutrition (TPN) 10/30/2017 11/05/[address] 10/30/2017 05/21/2018 Encounter for ostomy care education 10/30/2017 07/24/2018 Nausea 10/30/2017 11/05/2017 Encounter for nasogastric tube placement 018 11/05/2017 Hypocalcemia 10/25/2017 11/05/2017 Malnutrition of mild degree 10/25/201707/05 Last Assessment & Plan: Assessment: -per room attendants assessment PLAN: -discuss parenteral nutrition if prolonged NPO status Elevated serum creatinine 10/24/20172017 Hyponatremia 10/24/2017 10/25/2017 Abdominal distention 10/24/2017 11/05/2017 Superficial thrombophlebitis of both upper extre mities 10/24/2017 01/09/2018 Leukocytosis 10/22/2017 11/05/2017 Abdominal pain 10/22/2017 11/26/2017 Ileus 10/22/2017 11/05/2017 Diverticulitis 10/18/2017 04/29/2018 Iliotibial band syndrome, left leg 06/17/2017 07/24/2018 Cervicalgia 04/30/2014 04/29/2018 Lumbar radiculopathy 07/16/2013 07/04/2017 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 018 Piriformis syndrome of left side 01/23/2013 07/04/2017 Trochanteric bursitis of left hip 01/23/2013 01/09/2018 Dyspnea 09/10/2012 07/04/2017 Neurocirculatory asthenia 09/10/20122016 Chronic shoulder pain 03/07/2012 06/12/2018 Hemorrhage of gastrointestinal tract, unspecifie d 03/15/2009 07/13/2016 Other and unspecified noninf ectious gastroenteritis and colitis(558.9) 12/15/2008 07/13/2016 Excessive or frequent menstruation 09/01/2008 10/20/2008 Urethrocele(618.03) 07/17/2008 10/20/2008 Acute sinusitis, unspecified 07/15/2007 Headache(784.0) 07/12/2007 03/16/2016 Mild dysplasia of cervix 04/19/2007 016 Irregular menstrual cycle 04/19/20072008 Postcoital bleeding 04/19/2007 10/20/2008 Dyspareunia 04/19/2007 03/16/2016 Cystocele, midline 04/19/2007 10/20/2008 Female stress incontinence 04/19/200710/20 Urgency of urination 04/19/2007 03/16/2016 Mononeuritis 06/29/2006 01/09/2018 documented as of this encounter (statuses as of 03/09/2022) [facility] History of Past illness Narrative* Problem Noted Date Resolved Date Systemic infection 06/12/2018 07/24/2018 Intra-abdominal fluid collection 05/28/2018 06/03/2018 Last Assessment & Plan: Assessment: -loculated presacral fluid collection seen on CT 05/28/2018 PLAN: -drain placed -trend output Postoperative ileus 05/27/2018 06/03/2018 Last Assessment & Plan: Assessment: -NGT output decreased -passing BM PLAN: -remove NGT Pain managed using patient-controlled analgesia (SEROLOGIST) 05/22/2018 05/23/2018 Last Assessment & Plan: Assessment: -pain well controlled PLAN: -wean SEROLOGIST as able Post-operative state 05/21/2018 07/24/2018 Last Assessment & Plan: Assessment: -POD 10 Hartmanns reversal c/b post op ileus and intrabdominal fluid collection PLAN: -removed NGT -encourage ambulation -incentive spirometry Diverticulitis 05/20/2018 07/24/2018 Last Assessment & Plan: S/P Alfred's reversal. Minor emesis. Awaiting ROBF Colostomy present 12/17/2017 05/21/2018 Post-op pain 11/05/2017 03/27/2019 Last Assessment & Plan: Assessment: -well controlled PLAN: -continue multimodal pain regimen Hypokalemia 11/02/2017 11/05/2017 Patient has nasogastric tube 10/30/2017 PICC (peripherally inserted central catheter) in place 10/30/2017 11/05/2017 On total parenteral nutrition (TPN) 10/30/2017 11/05/[address] 10/30/2017 05/21/2018 Encounter for ostomy care education 10/30/2017 07/24/2018 Nausea 10/30/2017 11/05/2017 Encounter for nasogastric tube placement 018 11/05/2017 Hypocalcemia 10/25/2017 11/05/2017 Malnutrition of mild degree 10/25/201707/05 Last Assessment & Plan: Assessment: -per room attendants assessment PLAN: -discuss parenteral nutrition if prolonged NPO status Elevated serum creatinine 10/24/20172017 Hyponatremia 10/24/2017 10/25/2017 Abdominal distention 10/24/2017 11/05/2017 Superficial thrombophlebitis of both upper extre mities 10/24/2017 01/09/2018 Leukocytosis 10/22/2017 11/05/2017 Abdominal pain 10/22/2017 11/26/2017 Ileus 10/22/2017 11/05/2017 Diverticulitis 10/18/2017 04/29/2018 Iliotibial band syndrome, left leg 06/17/2017 07/24/2018 Cervicalgia 04/30/2014 04/29/2018 Lumbar radiculopathy 07/16/2013 07/04/2017 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 018 Piriformis syndrome of left side 01/23/2013 07/04/2017 Trochanteric bursitis of left hip 01/23/2013 01/09/2018 Dyspnea 09/10/2012 07/04/2017 Neurocirculatory asthenia 09/10/20122016 Chronic shoulder pain 03/07/2012 06/12/2018 Hemorrhage of gastrointestinal tract, unspecifie d 03/15/2009 07/13/2016 Other and unspecified noninf ectious gastroenteritis and colitis(558.9) 12/15/2008 07/13/2016 Excessive or frequent menstruation 09/01/2008 10/20/2008 Urethrocele(618.03) 07/17/2008 10/20/2008 Acute sinusitis, unspecified 07/15/2007 Headache(784.0) 07/12/2007 03/16/2016 Mild dysplasia of cervix 04/19/2007 016 Irregular menstrual cycle 04/19/20072008 Postcoital bleeding 04/19/2007 10/20/2008 Dyspareunia 04/19/2007 03/16/2016 Cystocele, midline 04/19/2007 10/20/2008 Female stress incontinence 04/19/200710/20 Urgency of urination 04/19/2007 03/16/2016 Mononeuritis 06/29/2006 01/09/2018 documented as of this encounter (statuses as of 03/14/2022) [facility] Diagnosis Diarrhea of presumed infectious origin- Primary [facility] Diagnosis Acute sinusitis, recurrence not specified, unspecified location- Primary [facility] Diagnosis Hypertension, essential- Primary Unspecified essential hypertension Mixed hyperlipidemia Thoracic aortic aneurysm without rupture (HCC) Thoracic aneurysm without mention of rupture Moderate aortic regurgitation Aortic valve disorders Ascending aorta dilatation (HCC) Thoracic aortic ectasia Other migraine without status migrainosus, not intractable Situational mixed anxiety and depressive disorder Adjustment disorder with mixed anxiety and depressed mood Chronic anxiety Anxiety state, unspecified Lung nodule < 6cm on CT Chronic hypoxemic respiratory failure (HCC) Chronic respiratory failure Post-COVID chronic dyspnea Palpitations Hydrocephalus, adult (HCC) Obstructive hydrocephalus Dizziness Dizziness and giddiness Syncope, unspecified syncope type Allergy, initial encounter Other hydrocephalus (HCC) [facility] Diagnosis Lump of skin of lower extremity, right- Primary [facility]* Diagnosis Dizziness Dizziness and giddiness Syncope, unspecified syncope type Hydrocephalus, adult (HCC) Obstructive hydrocephalus Other hydrocephalus (HCC) [facility] Diagnosis Other hydrocephalus (HCC) Hydrocephalus, adult (HCC) Obstructive hydrocephalus [facility] Diagnosis Nonruptured cerebral aneurysm Cerebral aneurysm, nonruptured [facility] Diagnosis Localized swelling, mass, or lump of right lower extremity [facility] Diagnosis Chronic rhinitis- Primary Post-COVID chronic dyspnea [facility] Diagnosis Lung nodules Other nonspecific abnormal finding of lung field Hydrocephalus, adult (HCC) Obstructive hydrocephalus [facility] Diagnosis Post-COVID chronic dyspnea [facility] Diagnosis Post-COVID chronic dyspnea- Primary Lung nodules Other nonspecific abnormal finding of lung field Chronic hypoxemic respiratory failure (HCC) Chronic respiratory failure [facility] Diagnosis Chronic pain of right knee- Primary [facility] Diagnosis HUBER (obstructive sleep apnea)- Primary Obstructive sleep apnea (adult) (pediatric) Primary hypertension Unspecified essential hypertension Excessive daytime sleepiness [facility]* Diagnosis Well adult exam- Primary Routine general medical examination at a health care facility Hypertension, essential Unspecified essential hypertension Mixed hyperlipidemia Hydrocephalus, adult (HCC) Obstructive hydrocephalus Other migraine without status migrainosus, not intractable Ascending aorta dilatation (HCC) Thoracic aortic ectasia Thoracic aortic aneurysm without rupture (HCC) Thoracic aneurysm without mention of rupture Situational mixed anxiety and depressive disorder Adjustment disorder with mixed anxiety and depressed mood Chronic anxiety Anxiety state, unspecified Post-COVID chronic dyspnea Moderate aortic regurgitation Aortic valve disorders Fibromyalgia Mylagia and myositis, unspecified Lung nodule Solitary pulmonary nodule HUBER (obstructive sleep apnea) Obstructive sleep apnea (adult) (pediatric) Primary insomnia Persistent disorder of initiating or maintaining sleep Vitamin D deficiency Unspecified vitamin D deficiency Essential tremor Essential and other specified forms of tremor Cold intolerance Other general symptoms Heat intolerance Unspecified effects of heat and light Primary osteoarthritis of both shoulders Living will on file Advance directive discussed with patient Other specified counseling Encounter for screening mammogram for breast cancer Medication management Encounter for long-term (current) use of other medications [facility] Diagnosis Nonallergic rhinitis- Primary Chronic rhinitis [facility] Diagnosis Encounter for screening mammogram for breast cancer [facility]* Diagnosis Gastroesophageal reflux disease, unspecified whether esophagitis present- Primary Colon cancer screening Special screening for malignant neoplasms, colon Diarrhea of presumed infectious origin [facility]* Diagnosis Pre-op evaluation- Primary Preoperative examination, unspecified Primary osteoarthritis of both shoulders Mixed hyperlipidemia Hypertension, essential Unspecified essential hypertension Thoracic aortic aneurysm without rupture (HCC) Thoracic aneurysm without mention of rupture Nonrheumatic mitral valve disorder, unspecified Ascending aorta dilatation (HCC) Thoracic aortic ectasia Essential tremor Essential and other specified forms of tremor Epigastric pain Abdominal pain, epigastric [facility]* Diagnosis Hypertension, essential- Primary Unspecified essential hypertension Acute gastric ulcer, unspecified whether gastric ulcer hemorrhage or perforation present [facility]* Diagnosis Toothache- Primary Unspecified disorder of the teeth and supporting structures URI, acute Acute upper respiratory infections of unspecified site [facility]* Diagnosis Urinary frequency- Primary [facility]* Diagnosis SOB (shortness of breath)- Primary Shortness of breath [facility]* Diagnosis Bronchitis- Primary Bronchitis, not specified as acute or chronic Costochondritis Tietze's disease Suspected COVID-19 virus infection Acute pain of right knee Situational mixed anxiety and depressive disorder Adjustment disorder with mixed anxiety and depressed mood [facility]* Diagnosis Acute bronchitis, unspecified organism- Primary Back spasm Other symptoms referable to back [facility] Diagnosis Primary osteoarthritis of both knees- Primary Primary localized osteoarthrosis, lower leg Pes anserine bursitis Pes anserinus tendinitis or bursitis [facility]* Diagnosis Ascending aorta dilatation (HCC)- Primary Thoracic aortic ectasia Hydrocephalus, adult (HCC) Obstructive hydrocephalus Hypertension, essential Unspecified essential hypertension Mixed hyperlipidemia Thoracic aortic aneurysm without rupture, unspecified part Acute respiratory disease due to COVID-19 virus Gastroesophageal reflux disease, unspecified whether esophagitis present Situational mixed anxiety and depressive disorder Adjustment disorder with mixed anxiety and depressed mood Vitamin D deficiency Unspecified vitamin D deficiency Fatigue, unspecified type Screening for diabetes mellitus Pharyngitis, unspecified etiology Sciatica, right side [facility]* Diagnosis Chronic low back pain without sciatica, unspecified back pain laterality- Primary Chronic knee pain, unspecified laterality Hip pain Pain in joint, pelvic region and thigh DDD (degenerative disc disease), lumbar Degeneration of lumbar or lumbosacral intervertebral disc [facility]* Diagnosis Spinal stenosis, lumbar region, without neurogenic claudication- Primary Primary osteoarthritis of both knees Primary localized osteoarthrosis, lower leg [facility]* Diagnosis Chronic right-sided low back pain with right-sided sciatica- Primary Primary osteoarthritis of right hip Primary localized osteoarthrosis, pelvic region and thigh Polyarthralgia Pain in joint, multiple sites Fibromyalgia Mylagia and myositis, unspecified [facility]* Diagnosis Spinal stenosis, lumbar region, without neurogenic claudication- Primary Primary osteoarthritis of both knees Primary localized osteoarthrosis, lower leg Primary osteoarthritis of right hip Primary localized osteoarthrosis, pelvic region and thigh [facility]* Diagnosis Situational mixed anxiety and depressive disorder- Primary Adjustment disorder with mixed anxiety and depressed mood Chronic anxiety Anxiety state, unspecified Fibromyalgia Mylagia and myositis, unspecified Spinal stenosis, lumbar region, without neurogenic claudication Right hip pain Pain in joint, pelvic region and thigh Post-COVID chronic dyspnea Hydrocephalus, adult ([facility]) Obstructive hydrocephalus Ataxia Lack of coordination Double vision Diplopia Urinary incontinence, unspecified type Back spasm Other symptoms referable to back Other hydrocephalus ([facility]) Leukocytosis, unspecified type Primary osteoarthritis of right hip Primary localized osteoarthrosis, pelvic region and thigh [facility]* Diagnosis Post-COVID chronic dyspnea- Primary Dependence on nocturnal oxygen therapy Lung nodule Solitary pulmonary nodule Primary osteoarthritis of right hip Primary localized osteoarthrosis, pelvic region and thigh [facility]* Diagnosis Spinal stenosis, lumbar region, without neurogenic claudication- Primary Primary osteoarthritis of both knees Primary localized osteoarthrosis, lower leg Primary osteoarthritis of right hip Primary localized osteoarthrosis, pelvic region and thigh [facility]* Diagnosis Chronic pain syndrome [facility]* Diagnosis Spinal stenosis, lumbar region, without neurogenic claudication- Primary Primary osteoarthritis of both knees Primary localized osteoarthrosis, lower leg [facility]* Diagnosis Spinal stenosis, lumbar region, without neurogenic claudication- Primary Primary osteoarthritis of both knees Primary localized osteoarthrosis, lower leg [facility]* Diagnosis Spinal stenosis, lumbar region, without neurogenic claudication- Primary Primary osteoarthritis of both knees Primary localized osteoarthrosis, lower leg [facility]* Diagnosis Spinal stenosis, lumbar region, without neurogenic claudication- Primary Primary osteoarthritis of both knees Primary localized osteoarthrosis, lower leg [facility]* Diagnosis Spinal stenosis, lumbar region, without neurogenic claudication- Primary Primary osteoarthritis of both knees Primary localized osteoarthrosis, lower leg [facility]* Diagnosis Lung nodules- Primary Other nonspecific abnormal finding of lung field [facility] Diagnosis Generalized osteoarthrosis- Primary Generalized osteoarthrosis, unspecified site Polyarthralgia Pain in joint, multiple sites Fibromyalgia Mylagia and myositis, unspecified [facility]* Diagnosis Post-COVID chronic dyspnea- Primary Lung nodules Other nonspecific abnormal finding of lung field Dependence on nocturnal oxygen therapy HUBER on CPAP Obstructive sleep apnea (adult) (pediatric) [facility]* Diagnosis 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 [facility]* Diagnosis Encounter for Medicare annual wellness exam- Primary Routine general medical examination at a health care facility Mixed hyperlipidemia Hypertension, essential Unspecified essential hypertension Other migraine without status migrainosus, not intractable Hydrocephalus, adult (HCC) Obstructive hydrocephalus Ascending aorta dilatation (HCC) Thoracic aortic ectasia Moderate aortic regurgitation Aortic valve disorders Nonrheumatic mitral valve disorder, unspecified Thoracic aortic aneurysm without rupture, unspecified part (HCC) Post-COVID chronic dyspnea Chronic anxiety Anxiety state, unspecified Situational mixed anxiety and depressive disorder Adjustment disorder with mixed anxiety and depressed mood Essential tremor Essential and other specified forms of tremor Fibromyalgia Mylagia and myositis, unspecified HUBER (obstructive sleep apnea) Obstructive sleep apnea (adult) (pediatric) Primary insomnia Persistent disorder of initiating or maintaining sleep Vitamin D deficiency Unspecified vitamin D deficiency Urge incontinence Chronic pain syndrome Gastroesophageal reflux disease without esophagitis Esophageal reflux Advance directive discussed with patient Other specified counseling Elevated hemoglobin A1c Other abnormal blood chemistry Rheumatoid arthritis, involving unspecified site, unspecified whether rheumatoid factor present (HCC) Heat intolerance Unspecified effects of heat and light Polyuria Dry mouth Disturbance of salivary secretion Need for vaccination Need for prophylactic vaccination and inoculation against unspecified single disease Palpitations Dizziness Dizziness and giddiness Dependence on nocturnal oxygen therapy [facility] Diagnosis Rheumatoid arthritis, involving unspecified site, unspecified whether rheumatoid factor present (HCC)- Primary Moderate aortic regurgitation Aortic valve disorders Essential tremor Essential and other specified forms of tremor Dependence on nocturnal oxygen therapy Primary insomnia Persistent disorder of initiating or maintaining sleep Gastroesophageal reflux disease without esophagitis Esophageal reflux Spinal stenosis, lumbar region, without neurogenic claudication Right hip pain Pain in joint, pelvic region and thigh DDD (degenerative disc disease), lumbar Degeneration of lumbar or lumbosacral intervertebral disc Ascending aorta dilatation (HCC) Thoracic aortic ectasia Situational mixed anxiety and depressive disorder Adjustment disorder with mixed anxiety and depressed mood Hypertension, essential Unspecified essential hypertension Thoracic aortic aneurysm without rupture, unspecified part (HCC) documented in this encounter [facility] note* Diagnosis 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 Asymptomatic postmenopausal status documented in this encounter [facility] note* Diagnosis Other hydrocephalus (HCC)- Primary documented in this encounter [facility] note* Diagnosis Encounter for screening mammogram for breast cancer documented in this encounter [facility] note* Diagnosis Lung nodules Other nonspecific abnormal finding of lung field documented in this encounter [facility] note* Diagnosis Encounter for screening mammogram for breast cancer documented in this encounter [facility] note* Diagnosis Viral illness- Primary Unspecified viral infection, in conditions classified elsewhere and of unspecified site documented in this encounter [facility] for referral (narrative)* Outpatient Procedure (Routine) - Pending Review Specialty Diagnoses / Procedures Referred By Nico linton Referred To Contact [facility] [place] Diagnoses Diarrhea of presumed infectious origin Procedures COLONOSCOPY DIAGNOSTIC COLONOSCOPY FLX DX W/COLLJ SPEC WHEN PFRMD Carmine Montez MD [address] [place] [address] [facility] [address] [address] Referral ID Status Reason Start Date Expiration Date Visits Requested Visits Authorized [id number] Pending Review Auto-Generat ed Referral 12/15/2021 12/15/2022 1 1 * Outpatient Procedure (Routine) - Pending Review Specialty Diagnoses / Procedures Referred By Nico linton Referred To Contact [facility] [place] Diagnoses Diarrhea of presumed infectious origin Procedures EGD DIAGNOSTIC ESOPHAGOGASTRODUODENOSC OPY TRANSORAL DIAGNOSTIC Carmine Montez MD [address] [place] [address] [facility] [address] [address] Referral ID Status Reason Start Date Expiration Date Visits Requested Visits Authorized [id number] Pending Review Auto-Generat ed Referral 12/15/2021 12/15/2022 1 1 [facility] for referral (narrative)* Diagnostic Procedure Only (Routine) - Authorized Specialty Diagnoses / Procedures Referred By Contac t Referred To Contact US IMAGING Diagnoses Lump of skin of lower extremity, right Procedures US EXTREMITY MASS/FLUID COLLECTION RT Edwina Khoury PA-C [address] [place] [address] Us Imaging Referral ID Status Reason Start Date Expiration Date Visits Requested Visits Authorized [id number] Authorized Auto-Generat ed Referral 02/01/2022 03/03/2023 1 1 [facility] for referral (narrative)* Diagnostic Procedure Only (Routine) - Pending Review Specialty Diagnoses / Procedures [facility] Diagnoses Encounter for screening mammogram for breast cancer Procedures SANJUANA SCREENING SCREENING MAMMOGRAPHY BI 2-VIEW BREAST INC CAD Ganga Sheppard MD [address] [place] [address] Br Imaging [address] [place] [address] Referral ID Status Reason Start Date Expiration Date Visits Requested Visits Authorized [id number] Pending Review Auto-Generat ed Referral 04/06/2022 05/05/2023 1 1 [facility] for referral (narrative)* Diagnostic Procedure Only (Routine) - Closed Specialty Diagnoses / Procedures [facility] Diagnoses Encounter for screening mammogram for breast cancer Procedures SANJUANA SCREENING SCREENING MAMMOGRAPHY BI 2-VIEW BREAST INC CAD Ganga Sheppard MD [address] [place] [address] Br Imaging [address] [place] [address] Referral ID Status Reason Start Date Expiration Date V isits Requested Visits Authorized [id number] Closed Auto-Generate d Referral 04/06/2022 05/05/2023 1 1 [facility] for referral (narrative)* Outpatient Procedure (Routine) - Closed Specialty Diagnoses / Procedures Referred By Nico linton Referred To Contact [facility] Diagnoses Diarrhea of presumed infectious origin Procedures COLONOSCOPY DIAGNOSTIC COLONOSCOPY FLX DX W/COLLJ SPEC WHEN PFRMCarmine Cantu MD [address] [place] [address] [address] Referral ID Status Reason Start Date Expiration Date V isits Requested Visits Authorized [id number] Closed Auto-Generate d Referral 12/15/2021 12/15/2022 1 1 * Outpatient Procedure (Routine) - Closed Specialty Diagnoses / Procedures Referred By Nico linton Referred To Contact [facility] Diagnoses Diarrhea of presumed infectious origin Procedures EGD DIAGNOSTIC ESOPHAGOGASTRODUODENOSC OPY TRANSORAL DIAGNOSTIC Carmine Montez MD [address] [place] [address] [address] Referral ID Status Reason Start Date Expiration Date V isits Requested Visits Authorized [id number] Closed Auto-Generate d Referral 12/15/2021 12/15/2022 1 1 [facility] for referral (narrative)* Diagnostic Procedure Only (Routine) - Pending Review Specialty Diagnoses / Procedures Referred By Nico linton Referred To Contact XR IMAGING Diagnoses 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) Procedures XR FOOT GENERAL 3V AP/LAT/OBL RIGHT RADEX FOOT COMPLETE MINIMUM 3 VIEWS Chris Thomas MD [address] [place] [address] Xr Imaging Referral ID Status Reason Start Date Expiration Date Visits Requested Visits Authorized [id number] Pending Review Auto-Generat ed Referral 04/04/2023 05/03/2024 1 1 * Diagnostic Procedure Only (Routine) - Pending Review Specialty Diagnoses / Procedures Referred By Contac t Referred To Contact XR IMAGING Diagnoses 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) Procedures XR FOOT GENERAL 3V AP/LAT/OBL LEFT RADEX FOOT COMPLETE MINIMUM 3 VIEWS Chris Thomas MD [address] [place] [address] Xr Imaging Referral ID Status Reason Start Date Expiration Date Visits Requested Visits Authorized [id number] Pending Review Auto-Generat ed Referral 04/04/2023 05/03/2024 1 1 * Diagnostic Procedure Only (Routine) - Pending Review Specialty Diagnoses / Procedures Referred By Preethiac t Referred To Contact XR IMAGING Diagnoses 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) Procedures XR HAND GENERAL 3V PA/LAT/OBL RIGHT RADEX HAND MINIMUM 3 VIEWS Chris Thomas MD [address] [place] [address] Xr Imaging Referral ID Status Reason Start Date Expiration Date Visits Requested Visits Authorized [id number] Pending Review Auto-Generat ed Referral 04/04/2023 05/03/2024 1 1 * Diagnostic Procedure Only (Routine) - Pending Review Specialty Diagnoses / Procedures Referred By Contac t Referred To Contact XR IMAGING Diagnoses 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) Procedures XR HAND GENERAL 3V PA/LAT/OBL LEFT RADEX HAND MINIMUM 3 VIEWS Chris Thomas MD [address] [place] [address] Xr Imaging Referral ID Status Reason Start Date Expiration Date Visits Requested Visits Authorized [id number] Pending Review Auto-Generat ed Referral 04/04/2023 05/03/2024 1 1 [facility] for referral (narrative)* Diagnostic Procedure Only (Routine) - Authorized Specialty Diagnoses / Procedures Referred By Nico t Referred To Contact BR IMAGING Diagnoses Encounter for screening mammogram for breast cancer Procedures SANJUANA SCREENING SCREENING MAMMOGRAPHY BI 2-VIEW BREAST INC CAD Ganga Sheppard MD [address] [place] [address] Br Imaging [address] [address] Referral ID Status Reason Start Date Expiration Date Visits Requested Visits Authorized [id number] Authorized Auto-Generat ed Referral 05/30/2023 06/28/2024 1 1 [facility] for referral (narrative)* Diagnostic Procedure Only (Routine) - Closed Specialty Diagnoses / Procedures Referred By Nico linton Referred To Contact BR IMAGING Diagnoses Encounter for screening mammogram for breast cancer Procedures SANJUANA SCREENING SCREENING MAMMOGRAPHY BI 2-VIEW BREAST INC CAD Ganga Sheppard MD [address] [place] [address] Br Imaging [address], [place] [address] Referral ID Status Reason Start Date Expiration Date V isits Requested Visits Authorized [id number] Closed Auto-Generate d Referral 05/30/2023 06/28/2024 1 1 [facility] for visit Narrative* Diagnostic Procedure Only (Routine) - Closed Specialty Diagnoses / Procedures Referred By Nico t Referred To Contact BR IMAGING Diagnoses Encounter for screening mammogram for breast cancer Procedures SANJUANA SCREENING SCREENING MAMMOGRAPHY BI 2-VIEW BREAST INC CAD Ganga Sheppard MD [address] [place] [address] Br Imaging [address] [address] Referral ID Status Reason Start Date Expiration Date V isits Requested Visits Authorized [id number] Closed Auto-Generate d Referral 04/06/2022 05/05/2023 1 1 [facility] for visit Narrative* Outpatient Procedure (Routine) - Closed Specialty Diagnoses / Procedures Referred By Contac t Referred To Contact [facility] Diagnoses Diarrhea of presumed infectious origin Procedures COLONOSCOPY DIAGNOSTIC COLONOSCOPY FLX DX W/COLLJ SPEC WHEN PFCarmine Baird MD [address] [facility] [place] [address] [facility] [address] [place] [address] Referral ID Status Reason Start Date Expiration Date V isits Requested Visits Authorized [id number] Closed Auto-Generate d Referral 12/15/2021 12/15/2022 1 1 [facility] Diagnostic Procedure Only (Routine) - Closed Specialty Diagnoses / Procedures Referred By Nico linton Referred To Contact BR IMAGING Diagnoses Encounter for screening mammogram for breast cancer Procedures SANJUANA SCREENING SCREENING MAMMOGRAPHY BI 2-VIEW BREAST INC CAD Ganga Sheppard MD [address] [place] [address] Br Imaging [address] [place] [address] Referral ID Status Reason Start Date Expiration Date V isits Requested Visits Authorized [id number] Closed Auto-Generate d Referral 05/30/2023 06/28/2024 1 1 [facility] Advance Directives No Advanced Directives Records FoundDocuments on File Type Date Recorded Patient Welfare Worker Expl anation Advance Directive(s) Advance Directive(s) 04/05/2020 10:26 AM Advance Directive(s) 09/19/2019 9:20 AM Advance Directive(s) 09/11/2019 4:59 PM Advance Directive(s) 04/26/2018 11:19 AM Advance Directive(s) 04/26/2018 3:21 PM Advance Directive(s) 04/26/2018 3:20 PM Advance Directive(s) 10/18/2017 7:26 PM Documents on File Type Date Recorded Patient Welfare Worker Expl anation Advance Directive(s) Advance Directive(s) 04/05/2020 10:26 AM Advance Directive(s) 09/19/2019 9:20 AM Advance Directive(s) 09/11/2019 4:59 PM Advance Directive(s) 04/26/2018 11:19 AM Advance Directive(s) 04/26/2018 3:21 PM Advance Directive(s) 04/26/2018 3:20 PM Advance Directive(s) 10/18/2017 7:26 PM Documents on File Type Date Recorded Patient Welfare Worker Expl anation Advance Directive(s) Advance Directive(s) 03/13/2022 4:36 PM Advance Directive(s) 04/05/2020 10:26 AM Advance Directive(s) 09/19/2019 9:20 AM Advance Directive(s) 09/11/2019 4:59 PM Advance Directive(s) 04/26/2018 11:19 AM Advance Directive(s) 04/26/2018 3:21 PM Advance Directive(s) 04/26/2018 3:20 PM Advance Directive(s) 10/18/2017 7:26 PM Documents on File Type Date Recorded Patient Welfare Worker Expl anation Advance Directive(s) Advance Directive(s) 03/13/2022 4:36 PM Advance Directive(s) 04/05/2020 10:26 AM Advance Directive(s) 09/19/2019 9:20 AM Advance Directive(s) 09/11/2019 4:59 PM Advance Directive(s) 04/26/2018 11:19 AM Advance Directive(s) 04/26/2018 3:21 PM Advance Directive(s) 04/26/2018 3:20 PM Advance Directive(s) 10/18/2017 7:26 PM Documents on File Type Date Recorded Patient Welfare Worker Expl anation Advance Directive(s) Advance Directive(s) 04/04/2022 11:04 AM Advance Directive(s) 03/13/2022 4:36 PM Advance Directive(s) 04/05/2020 10:26 AM Advance Directive(s) 09/19/2019 9:20 AM Advance Directive(s) 09/11/2019 4:59 PM Advance Directive(s) 04/26/2018 11:19 AM Advance Directive(s) 04/26/2018 3:21 PM Advance Directive(s) 04/26/2018 3:20 PM Advance Directive(s) 10/18/2017 7:26 PM Documents on File Type Date Recorded Patient Welfare Worker Expl anation Advance Directive(s) 04/26/2018 3:20 PM Documents on File Type Date Recorded Patient Welfare Worker Expl anation Advance Directive(s) 04/26/2018 3:20 PM Reason for Referral Specialty Diagnoses / Procedures Referred By Contac t Referred To Contact CT IMAGING Diagnoses Dizziness Syncope, unspecified syncope type Hydrocephalus, adult (HCC) Other hydrocephalus (HCC) Procedures CT BRAIN WO IVCON CT HEAD/BRAIN W/O CONTRAST MATERIAL Ganga Sheppard MD [address] [place] [address] [address] [address] Referral ID Status Reason Start Date Expiration Date V isits Requested Visits Authorized [id number] Open Auto-Generate d Referral 01/24/2022 02/23/2023 1 1 Specialty Diagnoses / Procedures Referred By Contac t Referred To Contact Neurology Diagnoses Hydrocephalus, adult (HCC) Procedures CONSULT TO NEUROLOGY OFFICE/OUTPATIENT [facility] 60-74 MINUTES Ganga Sheppard MD [address] [place] [address] Referral ID Status Reason Start Date Expiration Date Visits Requested Visits Authorized [id number] Authorized PCP Requested Referral 01/24/2022 01/24/2023 1 1 Specialty Diagnoses / Procedures Referred By Contac t Referred To Contact Allergy Diagnoses Allergy, initial encounter Procedures CONSULT TO ALLERGY/IMMUNOLOGY OFFICE/OUTPATIENT [facility] 60-74 MINUTES Ganga Sheppard MD [address] [place] [address] Referral ID Status Reason Start Date Expiration Date Visits Requested Visits Authorized [id number] Authorized PCP Requested Referral 01/24/2022 01/24/2023 1 1 Specialty Diagnoses / Procedures Referred By Contac t Referred To Contact [facility] Diagnoses Dizziness Syncope, unspecified syncope type Procedures US CAROTID ARTERIES [facility] DUPLEX SCAN EXTRACRANIAL ART COMPL BI STUDY Ganga Sheppard MD [address] [place] [address] [facility] [address] [place] [address] Referral ID Status Reason Start Date Expiration Date Visits Requested Visits Authorized [id number] Authorized Auto-Generat ed Referral 01/24/2022 01/24/2023 1 1 Referral ID Status Reason Start Date Expiration Date V isits Requested Visits Authorized [id number] Closed Auto-Generate d Referral 01/24/2022 03/25/2022 1 1 Specialty Diagnoses / Procedures Referred By Contac t Referred To Contact MR IMAGING Diagnoses Other hydrocephalus (HCC) Procedures MRI BRAIN WO IVCON MRI BRAIN BRAIN STEM W/O CONTRAST MATERIAL Mely Springer PA-C [address] [place] [address] Mr Imaging Referral ID Status Reason Start Date Expiration Date Visits Requested Visits Authorized [id number] Pending Review Auto-Generat ed Referral 02/17/2022 03/19/2023 1 1 Specialty Diagnoses / Procedures Referred By Contac t Referred To Contact MR IMAGING Diagnoses Nonruptured cerebral aneurysm Procedures MRA BRAIN WO IVCON MRA, HEAD W/O CONTRAST Reynaldo Ruelas APRN.[employer] [address] [place] [address] Mr Imaging Referral ID Status Reason Start Date Expiration Date V isits Requested Visits Authorized [id number] Closed Auto-Generate d Referral 02/07/2022 04/13/2022 1 1 Specialty Diagnoses / Procedures Referred By Contac t Referred To Contact MR IMAGING Diagnoses Localized swelling, mass, or lump of right lower extremity Procedures MRI LOWER LEG WO IVCON RT MRI LOWER EXTREM OTH/THN JT W/O CONTR MATRL Edwina Khoury PA-C [address] [place] [address] Mr Imaging Referral ID Status Reason Start Date Expiration Date Visits Requested Visits Authorized [id number] Additional Clinical Info Needed Auto-Generat ed Referral 03/08/2022 04/07/2023 1 1 Specialty Diagnoses / Procedures Referred By Contac t Referred To Contact CT IMAGING Diagnoses Lung nodules Procedures CT CHEST WO IVCON CAT SCAN OF CHEST Babs Guerra MD [address] [place] [address] Ct Imaging Referral ID Status Reason Start Date Expiration Date V isits Requested Visits Authorized [id number] Closed Auto-Generate d Referral 03/06/2022 04/18/2022 1 1 Specialty Diagnoses / Procedures Referred By Contac t Referred To Contact CT IMAGING Diagnoses Lung nodules Procedures CT CHEST WO IVCON DIAGNOSTIC COMPUTED TOMOGRAPHY THORAX W/O CNTRST Babs Guerra MD [address] [place] [address] Ct Imaging Referral ID Status Reason Start Date Expiration Date Visits Requested Visits Authorized [id number] Pending Review Auto-Generat ed Referral 03/20/2023 04/19/2023 1 1 Specialty Diagnoses / Procedures Referred By Contac t Referred To Contact Orthopedics Diagnoses Chronic pain of right knee Procedures CONSULT TO ORTHOPAEDICS OFFICE/OUTPATIENT [facility] 60-74 MINUTES Edwina Khoury PA-C [address] [place] [address] Referral ID Status Reason Start Date Expiration Date Visits Requested Visits Authorized [id number] Authorized PCP Requested Referral 03/24/2022 03/24/2023 1 1 Specialty Diagnoses / Procedures Referred By Contac t Referred To Contact Orthopedics Diagnoses Acute pain of right knee Procedures CONSULT TO ORTHOPAEDICS OFFICE/OUTPATIENT [facility] 60-74 MINUTES Ganga Sheppard MD [address] [place] [id number] Referral ID Status Reason Start Date Expiration Date Visits Requested Visits Authorized [id number] Authorized PCP Requested Referral 2 08/18/2023 1 1 Specialty Diagnoses / Procedures Referred By Contac t Referred To Contact Pain Management Diagnoses Chronic low back pain without sciatica, unspecified back pain laterality Chronic knee pain, unspecified laterality Hip pain DDD (degenerative disc disease), lumbar Procedures CONSULT TO PAIN MGT OFFICE/OUTPATIENT [facility] 60-74 MINUTES Ganga Sheppard MD [address] [place] [address] Referral ID Status Reason Start Date Expiration Date Visits Requested Visits Authorized [id number] Authorized PCP Requested Referral 10/18/2022 10/18/2023 1 1 Specialty Diagnoses / Procedures Referred By Contac t Referred To Contact Rheumatology Diagnoses Polyarthralgia Fibromyalgia Procedures CONSULT TO RHEUM/IMMUN DISEASE OFFICE/OUTPATIENT [facility] 60-74 MINUTES Jeff Story, DO [address] [facility] [address] [place] [address] Medardo Rivera MD [address] [facility] [address] [place] [address] Referral ID Status Reason Start Date Expiration Date Visits Requested Visits Authorized [id number] Authorized PCP Requested Referral 11/13/2022 02/11/2023 1 1 Specialty Diagnoses / Procedures Referred By Contac t Referred To Contact Pain Management Diagnoses Chronic right-sided low back pain with right-sided sciatica Procedures CONSULT TO PAIN MGT Jeff Story, DO [address] [address] Yury Hurt MD [address] [place] [address] Referral ID Status Reason Start Date Expiration Date Visits Requested Visits Authorized [id number] Ref Not Required PCP Requested Referral 11/13/2022 02/11/2023 3 3 Specialty Diagnoses / Procedures Referred By Contac t Referred To Contact XR IMAGING Diagnoses Chronic right-sided low back pain with right-sided sciatica Procedures XR LUMBAR LIMITED 2V AP/LAT RADEX SPINE LUMBOSACRAL 2/3 VIEWS Jeff Story, DO [address] [address] Xr Imaging Referral ID Status Reason Start Date Expiration Date Visits Requested Visits Authorized [id number] Pending Review Auto-Generat ed Referral 11/13/2022 12/13/2023 1 1 Specialty Diagnoses / Procedures Referred By Contac t Referred To Contact [facility] Diagnoses Spinal stenosis, lumbar region, without neurogenic claudication Primary osteoarthritis of both knees Procedures PT REHAB FOLLOW UP ORDER THERAPEUTIC EXERCISES RE, EA 15 MIN. Mara'Barbra Shaw, PT [facility] [place] [address] [place] [address] Referral ID Status Reason Start Date Expiration Date Visits Requested Visits Authorized [id number] Pending Review PCP Requested Referral Auto-Generate d Referral 11/15/2022 02/13/2023 1 1 Specialty Diagnoses / Procedures Referred By Contac t Referred To Contact MR IMAGING Diagnoses Hydrocephalus, adult (HCC) Ataxia Double vision Urinary incontinence, unspecified type Other hydrocephalus (HCC) Procedures MRI BRAIN WO IVCON MRI BRAIN BRAIN STEM W/O CONTRAST MATERIAL Ganga Sheppard MD [address] [place] [address] Mr Imaging Referral ID Status Reason Start Date Expiration Date Visits Requested Visits Authorized [id number] Pending Review Auto-Generat ed Referral 11/15/2022 12/15/2023 1 1 Referral ID Status Reason Start Date Expiration Date Visits Requested Visits Authorized [id number] Pending Review Auto-Generat ed Referral 03/12/2023 03/07/2024 1 1 Specialty Diagnoses / Procedures Referred By Contac t Referred To Contact CT IMAGING Diagnoses Lung nodules Procedures CT CHEST WO IVCON DIAGNOSTIC COMPUTED TOMOGRAPHY THORAX W/O CNTRST Tessy Ackerman PA-C [address] [place] [address] Ct Imaging Referral ID Status Reason Start Date Expiration Date Visits Requested Visits Authorized [id number] Pending Review Auto-Generat ed Referral 09/26/2023 04/24/2024 1 1 Specialty Diagnoses / Procedures Referred By Contac t Referred To Contact Pain Management Diagnoses Fibromyalgia Chronic pain syndrome Procedures CONSULT TO PAIN MGT OFFICE/OUTPATIENT [facility] MDM 60-74 MINUTES Ganga Sheppard MD [address] [place] [address] Referral ID Status Reason Start Date Expiration Date Visits Requested Visits Authorized [id number] Authorized PCP Requested Referral 04/24/2023 04/23/2024 1 1 Specialty Diagnoses / Procedures Referred By Contac t Referred To Contact [facility] Diagnoses Dizziness Procedures US CAROTID ARTERIES [facility] DUPLEX SCAN EXTRACRANIAL ART COMPL BI STUDY Ganga Sheppard MD [address] [place] [address] [facility] [address] [place] [address] Referral ID Status Reason Start Date Expiration Date Visits Requested Visits Authorized [id number] Authorized Auto-Generat ed Referral 04/24/2023 04/23/2024 1 1 Specialty Diagnoses / Procedures Referred By Contac t Referred To Contact MR IMAGING Diagnoses Other hydrocephalus (HCC) Procedures MRI BRAIN WO IVCON MRI BRAIN BRAIN STEM W/O CONTRAST MATERIAL Mely Springer, ILIR [address] [address] [place] [address] Referral ID Status Reason Start Date Expiration Date Visits Requested Visits Authorized [id number] Pending Review Auto-Generat ed Referral 06/01/2023 06/30/2024 1 1 Specialty Diagnoses / Procedures Referred By Contac t Referred To Contact CT IMAGING Diagnoses Lung nodules Procedures CT CHEST WO IVCON DIAGNOSTIC COMPUTED TOMOGRAPHY THORAX W/O CNTRST Babs Guerra MD [address] [place] [address] Ct Imaging [facility] Referral ID Status Reason Start Date Expiration Date V isits Requested Visits Authorized [id number] Closed Auto-Generate d Referral 03/16/2023 09/12/2023 1 1 Medications Administered Section Inactive Administered Medications - up to 3 most recent administrations Medication Order MAR Action Action Date Dose Rate Site benzocaine 20% 1 [place] (TOPEX) 1 [place], TOPICAL, DIRECTED, Starting on Sun05/05/22 at 0730, Until Sun05/05/22 at 1129, DOSING DIRECTED BY PHYSICIAN FOR PROCEDURAL SEDATION ONLY - Pharmaceutical Waste: Aerosol -, Intraprocedure Given 05/05/2022 7:22 AM EDT 1 [place] lactated ringers iv infusion 30 mL/hr, INTRAVENOUS, CONTINUOUS, Starting on Sun05/05/22 at 0630, Until Sun05/05/22 at 0747, Preprocedure New Bag/Syringe/Bottle 05/05/2022 6:45 AM EDT 30 mL/hr 30 mL/hr Inactive Administered Medications - up to 3 most recent administrations Medication Order MAR Action Action Date Dose Rate Site lidocaine (PF) 10 mg/mL (1 %) 5 mL injection (XYLOCAINE) 5 mL, Injection - FOR ORTHO USE ONLY, ONE TIME INJECTION, 1 dose, Starting on Sun09/05/22 at 0948, Until Sun09/05/22 at 0948 Given 09/05/2022 9:48 AM EST 5 mL Knee, Right triamcinolone acetonide 80 mg injection (KeNALog 40) 80 mg, Injection - FOR ORTHO USE ONLY, ONE TIME INJECTION, 1 dose, Starting on Sun09/05/22 at 0948, Until Sun09/05/22 at 0948 Given 09/05/2022 9:48 AM EST 80 mg Knee, Right Inactive Administered Medications - up to 3 most recent administrations Medication Order MAR Action Action Date Dose Rate Site BUPivacaine (PF) 0.5 % (5 mg/mL) injection INTRA-ARTICULAR, X (OR/PROCEDURE) PRN, Starting on Sun11/30/22 at 1038, Until Sun12/01/22 at 0304, Intraprocedure Given 11/30/2022 10:38 AM EDT 1.5 mL Hip, Right lidocaine (PF) 20 mg/mL (2 %) injection (XYLOCAINE) SUBCUTANEOUS, X (OR/PROCEDURE) PRN, Starting on Sun11/30/22 at 1035, Until Sun12/01/22 at 0304, Intraprocedure Given 11/30/2022 10:35 AM EDT 10 mL Hip, Right triamcinolone acetonide injection (KeNALog 40) INTRA-ARTICULAR, X (OR/PROCEDURE) PRN, Starting on Sun11/30/22 at 1037, Until Sun12/01/22 at 0304, Intraprocedure Given 11/30/2022 10:37 AM EDT 80 mg Summary Purpose Family History No Family History Records FoundNo Family History Records FoundNo Family History Records FoundNo Family History Records Found Additional Source Comments Source Comments (unrecognize d section and content) In the event this informatio n is protected by the Federal Confidentiality of Alcohol and Drug Abuse Patient Records regulations: The Federal rules restrict any use of the information to criminally investigate or prosecute any alcohol or drug abuse patient.[facility] the event this information is protected by the Federal Confidentiality of Alcohol and Drug Abuse Patient Records regulations: The Federal rules restrict any use of the information to criminally investigate or prosecute any alcohol or drug abuse patient.[facility]In the event this information is protected by the Federal Confidentiality of Alcohol and Drug Abuse Patient Records regulations: The Federal rules restrict any use of the information to criminally investigate or prosecute any alcohol or drug abuse patient.[facility]In the event this information is protected by the Federal Confidentiality of Alcohol and Drug Abuse Patient Records regulations: The Federal rules restrict any use of the information to criminally investigate or prosecute any alcohol or drug abuse patient.[facility] HospitalIn the event this information is protected by the Federal Confidentiality of Alcohol and Drug Abuse Patient Records regulations: The Federal rules restrict any use of the information to criminally investigate or prosecute any alcohol or drug abuse patient.[facility]In the event this information is protected by the Federal Confidentiality of Alcohol and Drug Abuse Patient Records regulations: The Federal rules restrict any use of the information to criminally investigate or prosecute any alcohol or drug abuse patient.[facility] HospitalIn the event this information is protected by the Federal Confidentiality of Alcohol and Drug Abuse Patient Records regulations: The Federal rules restrict any use of the information to criminally investigate or prosecute any alcohol or drug abuse patient.[facility] HospitalIn the event this information is protected by the Federal Confidentiality of Alcohol and Drug Abuse Patient Records regulations: The Federal rules restrict any use of the information to criminally investigate or prosecute any alcohol or drug abuse patient.[facility]In the event this information is protected by the Federal Confidentiality of Alcohol and Drug Abuse Patient Records regulations: The Federal rules restrict any use of the information to criminally investigate or prosecute any alcohol or drug abuse patient.[facility] HospitalIn the event this information is protected by the Federal Confidentiality of Alcohol and Drug Abuse Patient Records regulations: The Federal rules restrict any use of the information to criminally investigate or prosecute any alcohol or drug abuse patient.[facility] HospitalIn the event this information is protected by the Federal Confidentiality of Alcohol and Drug Abuse Patient Records regulations: The Federal rules restrict any use of the information to criminally investigate or prosecute any alcohol or drug abuse patient.[facility] HospitalIn the event this information is protected by the Federal Confidentiality of Alcohol and Drug Abuse Patient Records regulations: The Federal rules restrict any use of the information to criminally investigate or prosecute any alcohol or drug abuse patient.[facility] HospitalIn the event this information is protected by the Federal Confidentiality of Alcohol and Drug Abuse Patient Records regulations: The Federal rules restrict any use of the information to criminally investigate or prosecute any alcohol or drug abuse patient.[facility] HospitalIn the event this information is protected by the Federal Confidentiality of Alcohol and Drug Abuse Patient Records regulations: The Federal rules restrict any use of the information to criminally investigate or prosecute any alcohol or drug abuse patient.[facility] HospitalIn the event this information is protected by the Federal Confidentiality of Alcohol and Drug Abuse Patient Records regulations: The Federal rules restrict any use of the information to criminally investigate or prosecute any alcohol or drug abuse patient.[facility] HospitalIn the event this information is protected by the Federal Confidentiality of Alcohol and Drug Abuse Patient Records regulations: The Federal rules restrict any use of the information to criminally investigate or prosecute any alcohol or drug abuse patient.[facility] HospitalIn the event this information is protected by the Federal Confidentiality of Alcohol and Drug Abuse Patient Records regulations: The Federal rules restrict any use of the information to criminally investigate or prosecute any alcohol or drug abuse patient.[facility] HospitalIn the event this information is protected by the Federal Confidentiality of Alcohol and Drug Abuse Patient Records regulations: The Federal rules restrict any use of the information to criminally investigate or prosecute any alcohol or drug abuse patient.[facility] HospitalIn the event this information is protected by the Federal Confidentiality of Alcohol and Drug Abuse Patient Records regulations: The Federal rules restrict any use of the information to criminally investigate or prosecute any alcohol or drug abuse patient.[facility] HospitalIn the event this information is protected by the Federal Confidentiality of Alcohol and Drug Abuse Patient Records regulations: The Federal rules restrict any use of the information to criminally investigate or prosecute any alcohol or drug abuse patient.[facility] HospitalIn the event this information is protected by the Federal Confidentiality of Alcohol and Drug Abuse Patient Records regulations: The Federal rules restrict any use of the information to criminally investigate or prosecute any alcohol or drug abuse patient.[facility] HospitalIn the event this information is protected by the Federal Confidentiality of Alcohol and Drug Abuse Patient Records regulations: The Federal rules restrict any use of the information to criminally investigate or prosecute any alcohol or drug abuse patient.[facility] HospitalIn the event this information is protected by the Federal Confidentiality of Alcohol and Drug Abuse Patient Records regulations: The Federal rules restrict any use of the information to criminally investigate or prosecute any alcohol or drug abuse patient.[facility] HospitalIn the event this information is protected by the Federal Confidentiality of Alcohol and Drug Abuse Patient Records regulations: The Federal rules restrict any use of the information to criminally investigate or prosecute any alcohol or drug abuse patient.[facility] HospitalIn the event this information is protected by the Federal Confidentiality of Alcohol and Drug Abuse Patient Records regulations: The Federal rules restrict any use of the information to criminally investigate or prosecute any alcohol or drug abuse patient.[facility] HospitalIn the event this information is protected by the Federal Confidentiality of Alcohol and Drug Abuse Patient Records regulations: The Federal rules restrict any use of the information to criminally investigate or prosecute any alcohol or drug abuse patient.[facility] HospitalIn the event this information is protected by the Federal Confidentiality of Alcohol and Drug Abuse Patient Records regulations: The Federal rules restrict any use of the information to criminally investigate or prosecute any alcohol or drug abuse patient.[facility] HospitalIn the event this information is protected by the Federal Confidentiality of Alcohol and Drug Abuse Patient Records regulations: The Federal rules restrict any use of the information to criminally investigate or prosecute any alcohol or drug abuse patient.[facility] HospitalIn the event this information is protected by the Federal Confidentiality of Alcohol and Drug Abuse Patient Records regulations: The Federal rules restrict any use of the information to criminally investigate or prosecute any alcohol or drug abuse patient.[facility] HospitalIn the event this information is protected by the Federal Confidentiality of Alcohol and Drug Abuse Patient Records regulations: The Federal rules restrict any use of the information to criminally investigate or prosecute any alcohol or drug abuse patient.[facility] HospitalIn the event this information is protected by the Federal Confidentiality of Alcohol and Drug Abuse Patient Records regulations: The Federal rules restrict any use of the information to criminally investigate or prosecute any alcohol or drug abuse patient.[facility] HospitalIn the event this information is protected by the Federal Confidentiality of Alcohol and Drug Abuse Patient Records regulations: The Federal rules restrict any use of the information to criminally investigate or prosecute any alcohol or drug abuse patient.[facility] HospitalIn the event this information is protected by the Federal Confidentiality of Alcohol and Drug Abuse Patient Records regulations: The Federal rules restrict any use of the information to criminally investigate or prosecute any alcohol or drug abuse patient.[facility] the event this information is protected by the Federal Confidentiality of Alcohol and Drug Abuse Patient Records regulations: The Federal rules restrict any use of the information to criminally investigate or prosecute any alcohol or drug abuse patient.[facility] HospitalIn the event this information is protected by the Federal Confidentiality of Alcohol and Drug Abuse Patient Records regulations: The Federal rules restrict any use of the information to criminally investigate or prosecute any alcohol or drug abuse patient.[facility] HospitalIn the event this information is protected by the Federal Confidentiality of Alcohol and Drug Abuse Patient Records regulations: The Federal rules restrict any use of the information to criminally investigate or prosecute any alcohol or drug abuse patient.[facility]In the event this information is protected by the Federal Confidentiality of Alcohol and Drug Abuse Patient Records regulations: The Federal rules restrict any use of the information to criminally investigate or prosecute any alcohol or drug abuse patient.[facility] HospitalIn the event this information is protected by the Federal Confidentiality of Alcohol and Drug Abuse Patient Records regulations: The Federal rules restrict any use of the information to criminally investigate or prosecute any alcohol or drug abuse patient.[facility] HospitalIn the event this information is protected by the Federal Confidentiality of Alcohol and Drug Abuse Patient Records regulations: The Federal rules restrict any use of the information to criminally investigate or prosecute any alcohol or drug abuse patient.[facility] HospitalIn the event this information is protected by the Federal Confidentiality of Alcohol and Drug Abuse Patient Records regulations: The Federal rules restrict any use of the information to criminally investigate or prosecute any alcohol or drug abuse patient.[facility] HospitalIn the event this information is protected by the Federal Confidentiality of Alcohol and Drug Abuse Patient Records regulations: The Federal rules restrict any use of the information to criminally investigate or prosecute any alcohol or drug abuse patient.[facility] HospitalIn the event this information is protected by the Federal Confidentiality of Alcohol and Drug Abuse Patient Records regulations: The Federal rules restrict any use of the information to criminally investigate or prosecute any alcohol or drug abuse patient.[facility] HospitalIn the event this information is protected by the Federal Confidentiality of Alcohol and Drug Abuse Patient Records regulations: The Federal rules restrict any use of the information to criminally investigate or prosecute any alcohol or drug abuse patient.[facility] HospitalIn the event this information is protected by the Federal Confidentiality of Alcohol and Drug Abuse Patient Records regulations: The Federal rules restrict any use of the information to criminally investigate or prosecute any alcohol or drug abuse patient.[facility] HospitalIn the event this information is protected by the Federal Confidentiality of Alcohol and Drug Abuse Patient Records regulations: The Federal rules restrict any use of the information to criminally investigate or prosecute any alcohol or drug abuse patient.[facility] HospitalIn the event this information is protected by the Federal Confidentiality of Alcohol and Drug Abuse Patient Records regulations: The Federal rules restrict any use of the information to criminally investigate or prosecute any alcohol or drug abuse patient.[facility] HospitalIn the event this information is protected by the Federal Confidentiality of Alcohol and Drug Abuse Patient Records regulations: The Federal rules restrict any use of the information to criminally investigate or prosecute any alcohol or drug abuse patient.[facility] HospitalIn the event this information is protected by the Federal Confidentiality of Alcohol and Drug Abuse Patient Records regulations: The Federal rules restrict any use of the information to criminally investigate or prosecute any alcohol or drug abuse patient.[facility] HospitalIn the event this information is protected by the Federal Confidentiality of Alcohol and Drug Abuse Patient Records regulations: The Federal rules restrict any use of the information to criminally investigate or prosecute any alcohol or drug abuse patient.[facility] HospitalIn the event this information is protected by the Federal Confidentiality of Alcohol and Drug Abuse Patient Records regulations: The Federal rules restrict any use of the information to criminally investigate or prosecute any alcohol or drug abuse patient.[facility] HospitalIn the event this information is protected by the Federal Confidentiality of Alcohol and Drug Abuse Patient Records regulations: The Federal rules restrict any use of the information to criminally investigate or prosecute any alcohol or drug abuse patient.[facility] HospitalIn the event this information is protected by the Federal Confidentiality of Alcohol and Drug Abuse Patient Records regulations: The Federal rules restrict any use of the information to criminally investigate or prosecute any alcohol or drug abuse patient.[facility] HospitalIn the event this information is protected by the Federal Confidentiality of Alcohol and Drug Abuse Patient Records regulations: The Federal rules restrict any use of the information to criminally investigate or prosecute any alcohol or drug abuse patient.[facility] HospitalIn the event this information is protected by the Federal Confidentiality of Alcohol and Drug Abuse Patient Records regulations: The Federal rules restrict any use of the information to criminally investigate or prosecute any alcohol or drug abuse patient.[facility] HospitalIn the event this information is protected by the Federal Confidentiality of Alcohol and Drug Abuse Patient Records regulations: The Federal rules restrict any use of the information to criminally investigate or prosecute any alcohol or drug abuse patient.[facility] HospitalIn the event this information is protected by the Federal Confidentiality of Alcohol and Drug Abuse Patient Records regulations: The Federal rules restrict any use of the information to criminally investigate or prosecute any alcohol or drug abuse patient.[facility] HospitalIn the event this information is protected by the Federal Confidentiality of Alcohol and Drug Abuse Patient Records regulations: The Federal rules restrict any use of the information to criminally investigate or prosecute any alcohol or drug abuse patient.[facility] HospitalIn the event this information is protected by the Federal Confidentiality of Alcohol and Drug Abuse Patient Records regulations: The Federal rules restrict any use of the information to criminally investigate or prosecute any alcohol or drug abuse patient.[facility] HospitalIn the event this information is protected by the Federal Confidentiality of Alcohol and Drug Abuse Patient Records regulations: The Federal rules restrict any use of the information to criminally investigate or prosecute any alcohol or drug abuse patient.[facility] HospitalIn the event this information is protected by the Federal Confidentiality of Alcohol and Drug Abuse Patient Records regulations: The Federal rules restrict any use of the information to criminally investigate or prosecute any alcohol or drug abuse patient.[facility] HospitalIn the event this information is protected by the Federal Confidentiality of Alcohol and Drug Abuse Patient Records regulations: The Federal rules restrict any use of the information to criminally investigate or prosecute any alcohol or drug abuse patient.[facility] HospitalIn the event this information is protected by the Federal Confidentiality of Alcohol and Drug Abuse Patient Records regulations: The Federal rules restrict any use of the information to criminally investigate or prosecute any alcohol or drug abuse patient.[facility] HospitalIn the event this information is protected by the Federal Confidentiality of Alcohol and Drug Abuse Patient Records regulations: The Federal rules restrict any use of the information to criminally investigate or prosecute any alcohol or drug abuse patient.[facility] HospitalIn the event this information is protected by the Federal Confidentiality of Alcohol and Drug Abuse Patient Records regulations: The Federal rules restrict any use of the information to criminally investigate or prosecute any alcohol or drug abuse patient.[facility] HospitalIn the event this information is protected by the Federal Confidentiality of Alcohol and Drug Abuse Patient Records regulations: The Federal rules restrict any use of the information to criminally investigate or prosecute any alcohol or drug abuse patient.[facility] HospitalIn the event this information is protected by the Federal Confidentiality of Alcohol and Drug Abuse Patient Records regulations: The Federal rules restrict any use of the information to criminally investigate or prosecute any alcohol or drug abuse patient.[facility] HospitalIn the event this information is protected by the Federal Confidentiality of Alcohol and Drug Abuse Patient Records regulations: The Federal rules restrict any use of the information to criminally investigate or prosecute any alcohol or drug abuse patient.[facility] HospitalIn the event this information is protected by the Federal Confidentiality of Alcohol and Drug Abuse Patient Records regulations: The Federal rules restrict any use of the information to criminally investigate or prosecute any alcohol or drug abuse patient.[facility] HospitalIn the event this information is protected by the Federal Confidentiality of Alcohol and Drug Abuse Patient Records regulations: The Federal rules restrict any use of the information to criminally investigate or prosecute any alcohol or drug abuse patient.[facility] HospitalIn the event this information is protected by the Federal Confidentiality of Alcohol and Drug Abuse Patient Records regulations: The Federal rules restrict any use of the information to criminally investigate or prosecute any alcohol or drug abuse patient.[facility] HospitalIn the event this information is protected by the Federal Confidentiality of Alcohol and Drug Abuse Patient Records regulations: The Federal rules restrict any use of the information to criminally investigate or prosecute any alcohol or drug abuse patient.[facility] HospitalIn the event this information is protected by the Federal Confidentiality of Alcohol and Drug Abuse Patient Records regulations: The Federal rules restrict any use of the information to criminally investigate or prosecute any alcohol or drug abuse patient.[facility] HospitalIn the event this information is protected by the Federal Confidentiality of Alcohol and Drug Abuse Patient Records regulations: The Federal rules restrict any use of the information to criminally investigate or prosecute any alcohol or drug abuse patient.[facility] HospitalIn the event this information is protected by the Federal Confidentiality of Alcohol and Drug Abuse Patient Records regulations: The Federal rules restrict any use of the information to criminally investigate or prosecute any alcohol or drug abuse patient.[facility] HospitalIn the event this information is protected by the Federal Confidentiality of Alcohol and Drug Abuse Patient Records regulations: The Federal rules restrict any use of the information to criminally investigate or prosecute any alcohol or drug abuse patient.[facility] HospitalIn the event this information is protected by the Federal Confidentiality of Alcohol and Drug Abuse Patient Records regulations: The Federal rules restrict any use of the information to criminally investigate or prosecute any alcohol or drug abuse patient.[facility] HospitalIn the event this information is protected by the Federal Confidentiality of Alcohol and Drug Abuse Patient Records regulations: The Federal rules restrict any use of the information to criminally investigate or prosecute any alcohol or drug abuse patient.[facility] HospitalIn the event this information is protected by the Federal Confidentiality of Alcohol and Drug Abuse Patient Records regulations: The Federal rules restrict any use of the information to criminally investigate or prosecute any alcohol or drug abuse patient.[facility] HospitalIn the event this information is protected by the Federal Confidentiality of Alcohol and Drug Abuse Patient Records regulations: The Federal rules restrict any use of the information to criminally investigate or prosecute any alcohol or drug abuse patient.[facility] HospitalIn the event this information is protected by the Federal Confidentiality of Alcohol and Drug Abuse Patient Records regulations: The Federal rules restrict any use of the information to criminally investigate or prosecute any alcohol or drug abuse patient.[facility] HospitalIn the event this information is protected by the Federal Confidentiality of Alcohol and Drug Abuse Patient Records regulations: The Federal rules restrict any use of the information to criminally investigate or prosecute any alcohol or drug abuse patient.[facility] HospitalIn the event this information is protected by the Federal Confidentiality of Alcohol and Drug Abuse Patient Records regulations: The Federal rules restrict any use of the information to criminally investigate or prosecute any alcohol or drug abuse patient.[facility] HospitalIn the event this information is protected by the Federal Confidentiality of Alcohol and Drug Abuse Patient Records regulations: The Federal rules restrict any use of the information to criminally investigate or prosecute any alcohol or drug abuse patient.[facility] HospitalIn the event this information is protected by the Federal Confidentiality of Alcohol and Drug Abuse Patient Records regulations: The Federal rules restrict any use of the information to criminally investigate or prosecute any alcohol or drug abuse patient.[facility] Reason for Visit (unrecogniz ed section and content) Reason Comments Chest Pain ongoing pain rated 4 , onset 05/2021, 02 currently 1L Shortness of Breath ear pain (RT) rated 6 onset 3 wks Reason Onset Date Comments Refill Request 01/10/2022 Reason Comments Follow Up 6 month Urgent care visit 2 weeks ago for sinu s- c/o multiple other issues at that time and was advised to go to ER- she chose not to go Reason Comments Results Reason Comments Derm Problem patient states she h as lumps on bilateal legs Reason Comments Radiology CT Specialty Diagnoses / Procedures Referred By Nico t Referred To Contact CT IMAGING Diagnoses Dizziness Syncope, unspecified syncope type Hydrocephalus, adult (HCC) Other hydrocephalus (HCC) Procedures CT BRAIN WO IVCON CT HEAD/BRAIN W/O CONTRAST MATERIAL Ganga Sheppard MD [address] [place] [address] Ct Imaging Referral ID Status Reason Start Date Expiration Date V isits Requested Visits Authorized [id number] Closed Auto-Generate d Referral 01/24/2022 03/25/2022 1 1 Reason Comments Future Appointment New Patient, [place], Any Reason Comments New Patient Specialty Diagnoses / Procedures Referred By Contac t Referred To Contact Neurology Diagnoses Hydrocephalus, adult (HCC) Procedures CONSULT TO NEUROLOGY OFFICE/OUTPATIENT [facility] 60-74 MINUTES Ganga Sheppard MD [address] [place] [address] Referral ID Status Reason Start Date Expiration Date V isits Requested Visits Authorized [id number] Closed PCP Requested Referral 01/24/2022 01/24/2023 1 1 Specialty Diagnoses / Procedures Referred By Contac t Referred To Contact MR IMAGING Diagnoses Nonruptured cerebral aneurysm Procedures MRA BRAIN WO IVCON MRA, HEAD W/O CONTRAST Reynaldo Ruelas APRN.[employer] [address] [place] [address] Mr Imaging Referral ID Status Reason Start Date Expiration Date V isits Requested Visits Authorized [id number] Closed Auto-Generate d Referral 02/07/2022 04/13/2022 1 1 Specialty Diagnoses / Procedures Referred By Contac t Referred To Contact MR IMAGING Diagnoses Other hydrocephalus (HCC) Procedures MRI BRAIN WO IVCON MRI BRAIN BRAIN STEM W/O CONTRAST MATERIAL Mely Springer, ILIR [address] [place] [address] Mr Imaging Referral ID Status Reason Start Date Expiration Date V isits Requested Visits Authorized [id number] Closed Auto-Generat ed Referral Clearance Not Met - Admin/Chairm an/Director Advise to Postpone/Res chedule or Not Proceed 02/17/2022 04/18/2022 1 1 Reason Comments Reason Comments Results Reason Comments Consult allergy Specialty Diagnoses / Procedures Referred By Contac t Referred To Contact Allergy Diagnoses Allergy, initial encounter Procedures CONSULT TO ALLERGY/IMMUNOLOGY OFFICE/OUTPATIENT [facility] 60-74 MINUTES Ganga Sheppard MD [address] [place] [address] Referral ID Status Reason Start Date Expiration Date V isits Requested Visits Authorized [id number] Closed PCP Requested Referral 01/24/2022 01/24/2023 1 1 Specialty Diagnoses / Procedures Referred By Contac t Referred To Contact CT IMAGING Diagnoses Lung nodules Procedures CT CHEST WO IVCON CAT SCAN OF CHEST Babs Guerra MD [address] [place] [address] Ct Imaging Referral ID Status Reason Start Date Expiration Date V isits Requested Visits Authorized [id number] Closed Auto-Generate d Referral 03/06/2022 04/18/2022 1 1 Reason Comments Spirometry Specialty Diagnoses / Procedures Referred By Contac t Referred To Contact [facility] Diagnoses Post-COVID chronic dyspnea Procedures OXIMETRY WITH AMBULATION NONINVASIVE EAR/PULSE OXIMETRY MULTIPLE DETER Babs Guerra MD [address] [place] [address] [facility] [address] [place] [address] Referral ID Status Reason Start Date Expiration Date V isits Requested Visits Authorized [id number] Closed Auto-Generate d Referral 11/04/2021 12/04/2022 1 1 Reason Comments Established Patient post COVID chronic d yspnea Reason Comments Sleep Apnea Reason Comments PAP Rx Faxed Reason Comments Physical Reason Comments est visit- allergy skin testing Reason Comments Pre-Op Exam Reason Comments Recheck Blood pressure and a bdominal pain Reason Comments Toothache Pain, Sinus Reason Comments Urinary Frequency burning with urinati on and low back pain x 4 days Reason Comments ED Follow-up Reason Comments Recheck Bronchitis Reason Comments New Getting up and down is difficult, and knee sometimes gives out Swelling Getting up and down is difficult, and knee sometimes gives out Knee Pain Getting up and down is difficult, and knee sometimes gives out Reason Comments Follow Up 6 mth FU. C/o sore t hroat, bilat ear pain & congestion since yesterday. Reason Comments Referral Request Reason Comments Follow Up Knee Pain Reason Comments New Pain Reason Comments PT Eval Specialty Diagnoses / Procedures Referred By Contac t Referred To Contact Physical Therapy / PHYSICAL THERAPY Diagnoses Spinal stenosis, lumbar region, without neurogenic claudication [M48.061] Primary osteoarthritis of both knees [M17.0] Procedures NEW RS PT SPINE Beto Franz MD [address] [place] [address] Barbra Philip, PT Referral ID Status Reason Start Date Expiration Date V isits Requested Visits Authorized [id number] Authorized 11/09/2022 09/02/2023 20 20 Reason Comments Back Pain Reason Comments Established Patient post covid chronic d yspnea Reason Comments Physical Therapy Specialty Diagnoses / Procedures Referred By Contac t Referred To Contact Physical Therapy / PHYSICAL THERAPY Diagnoses Spinal stenosis, lumbar region, without neurogenic claudication [M48.061] Primary osteoarthritis of both knees [M17.0] Procedures NEW RS PT SPINE Beto Franz MD [address] [place] [address] Barbra Philip, PT Reason Comments Consult Pain management Specialty Diagnoses / Procedures Referred By Contac t Referred To Contact Diagnoses Primary osteoarthritis of right hip Procedures ARTHROCENTESIS ASPIR&/INJ MAJOR JT/BURSA W/O US INJECT HIP RIGHT [facility] [address] [place] [address] Referral ID Status Reason Start Date Expiration Date Visits Re quested Visits Authorized [id number] 1 1 Reason Comments New Patient Joint pain in hips, lower back, legs Specialty Diagnoses / Procedures Referred By Contac t Referred To Contact Rheumatology Diagnoses Polyarthralgia Fibromyalgia Procedures CONSULT TO RHEUM/IMMUN DISEASE OFFICE/OUTPATIENT NEW HIGH MDM 60-74 MINUTES Jeff Story R, DO [address] [place] [address] Medardo Rivera MD [address] [facility] [address] [place] [address] Referral ID Status Reason Start Date Expiration Date V isits Requested Visits Authorized [id number] Closed PCP Requested Referral 11/13/2022 02/11/2023 1 1 Reason Onset Date Comments Refill Request 03/08/2023 Reason Comments Established Patient Post Covid dyspnea Reason Comments Patient Update Generalized osteoart hrosis Reason Comments Physical Reason Comments Forms/letter Reason Comments Rheumatoid Arthritis Reason Comments Follow Up Reason Onset Date Comments Refill Request 06/01/2023 Reason Comments Orders Reason Comments Outside Ortho Procedure Reason Comments Outside Bone Density Specialty Diagnoses / Procedures Referred By Contac t Referred To Contact CT IMAGING Diagnoses Lung nodules Procedures CT CHEST WO IVCON DIAGNOSTIC COMPUTED TOMOGRAPHY THORAX W/O Babs Richardson MD [address] [place] [address] [place] [address] Referral ID Status Reason Start Date Expiration Date V isits Requested Visits Authorized [id number] Closed Auto-Generate d Referral 03/16/2023 09/12/2023 1 1 Reason Comments Outside Imagain Reason Comments pre-op Forms Reason Comments Ear Pain Bilateral ear pain, sinus, congestion, ST and fever x 3 days Reason Comments Outside [id number] Ordered Outside Cardio Reason Onset Date Comments Refill Request 08/21/2023 Care Teams (unrecognized sec tion and content) 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 Start Date End Date Ganga Sheppard MD [address] [place] [address] PCP - General Family Practice 03/31/21 Kiki Lynn MD [address] [place] [address] Primary Staff Physician Cardiology 11/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 Start Date End Date Ganga Sheppard MD [address] [place] [address] PCP - General Family Practice 03/31/21 Kiki Lynn MD [address] [place] [address] Primary Staff Physician Cardiology 11/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 Start Date End Date Ganga Sheppard MD [address] [place] [address] PCP - General Family Practice 03/31/21 Kiki Lynn MD [address] [place] [address] Primary Staff Physician Cardiology 11/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 Start Date End Date Ganga Sheppard MD [address] [place] [address] PCP - General Family Practice 03/31/21 Kiki Lynn MD [address] [place] [address] Primary Staff Physician Cardiology 11/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 Start Date End Date Ganga Sheppard MD [address] [place] [address] PCP - General Family Practice 03/31/21 Kiki Lynn MD [address] [place] [address] Primary Staff Physician Cardiology 11/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 Start Date End Date Ganga Sheppard MD [facility] [place] [address] PCP - General Family Practice 03/31/21 Kiki Lynn MD [address] [place] [address] Primary Staff Physician Cardiology 11/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 Start Date End Date Ganga Sheppard MD [address] [place] [address] PCP - General Family Practice 03/31/21 Kiki Lynn MD [address] [place] [address] Primary Staff Physician Cardiology 11/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 Start Date End Date Ganga Sheppard MD [address] [place] [address] PCP - General Family Practice 03/31/21 Kiki Lynn MD [address] [place] [address] Primary Staff Physician Cardiology 11/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 Start Date End Date Ganga Sheppard MD [address] [place] [address] PCP - General Family Practice 03/31/21 Kiki Lynn MD [address] [place] [address] Primary Staff Physician Cardiology 11/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 Start Date End Date Ganga Sheppard MD [address] [place] [address] PCP - General Family Practice 03/31/21 Kiki Lynn MD [address] [place] [address] Primary Staff Physician Cardiology 11/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 Start Date End Date Ganga Sheppard MD [address] [place] [address] PCP - General Family Practice 03/31/21 Kiki Lynn MD [address] [place] [address] Primary Staff Physician Cardiology 11/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 Start Date End Date Ganga Sheppard MD [address] [place] [address] PCP - General Family Practice 03/31/21 Kiki Lynn MD [address] [place] [address] Primary Staff Physician Cardiology 11/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 Start Date End Date Ganga Sheppard MD [address] [place] [address] PCP - General Family Practice 03/31/21 Kiki Lynn MD [address] [place] [address] Primary Staff Physician Cardiology 11/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 Start Date End Date Ganga Sheppard MD [address] [place] [address] PCP - General Family Practice 03/31/21 Kiki Lynn MD [address] [place] [address] Primary Staff Physician Cardiology 11/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 Start Date End Date Ganga Sheppard MD [address] [place] [address] PCP - General Family Practice 03/31/21 Kiki Lynn MD [address] [place] [address] Primary Staff Physician Cardiology 11/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 Start Date End Date Ganga Sheppard MD [facility] [place] [address] PCP - General Family Practice 03/31/21 Kiki Lynn MD [address] [place] [address] Primary Staff Physician Cardiology 11/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 Start Date End Date Ganga Sheppard MD [address] [place] [address] PCP - General Family Practice 03/31/21 Kiki Lynn MD [address] [place] [address] Primary Staff Physician Cardiology 11/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 Start Date End Date Ganga Sheppard MD [address] [place] [address], [place] [address] PCP - General Family Practice 03/31/21 Kiki Lynn MD [address] [place] [address] Primary Staff Physician Cardiology 11/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 Start Date End Date Ganga Sheppard MD [address] [place] [address] PCP - General Family Practice 03/31/21 Kiki Lynn MD [address] [place] [address] Primary Staff Physician Cardiology 11/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 Start Date End Date Ganga Sheppard MD [address] [place] [address] PCP - General Family Practice 03/31/21 Kiki Lynn MD [address] [place] [address] Primary Staff Physician Cardiology 11/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 Start Date End Date Ganga Sheppard MD [address] [place] [address] PCP - General Family Practice 03/31/21 Kiki Lynn MD [address] [place] [address] Primary Staff Physician Cardiology 11/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 Start Date End Date Ganga Sheppard MD [address] [place] [address] PCP - General Family Practice 03/31/21 Kiki Lynn MD [address] [place] [address] Primary Staff Physician Cardiology 11/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 Start Date End Date Ganga Sheppard MD [address] [place] [address] PCP - General Family Practice 03/31/21 Kiki Lynn MD [address] [place] [address] Primary Staff Physician Cardiology 11/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 Start Date End Date Ganga Sheppard MD [address] [place] [address] PCP - General Family Practice 03/31/21 Kiki Lynn MD [address] [place] [address] Primary Staff Physician Cardiology 11/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 Start Date End Date Ganga Sheppard MD [address] [place] [address] PCP - General Family Practice 03/31/21 Kiki Lynn MD [address] [place] [address] Primary Staff Physician Cardiology 11/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 Start Date End Date Ganga Sheppard MD [address] [place] [address] PCP - General Family Medicine 03/31/21 Kiki Lynn MD [address] [place] [address] Primary Staff Physician Cardiology 11/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 Start Date End Date Ganga Sheppard MD [address] [place] [address] PCP - General Family Medicine 03/31/21 Kiki Lynn MD [address] [place] [address] Primary Staff Physician Cardiology 11/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 Start Date End Date Ganga Sheppard MD [address] [place] [address] PCP - General Family Medicine 03/31/21 Kiki Lynn MD [address] [place] [address] Primary Staff Physician Cardiology 11/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 Start Date End Date Ganga Sheppard MD [address] [place] [address] PCP - General Family Medicine 03/31/21 Kiki Lynn MD [address] [place] [address] Primary Staff Physician Cardiology 11/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 Start Date End Date Ganga Sheppard MD [address] [place] [address] PCP - General Family Medicine 03/31/21 Kiki Lynn MD [address] [place] [address] Primary Staff Physician Cardiology 11/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 Start Date End Date Ganga Sheppard MD [address] [place] [address] PCP - General Family Medicine 03/31/21 Kiki Lynn MD [address] [place] [address] Primary Staff Physician Cardiology 11/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 Start Date End Date Ganga Sheppard MD [address] [place] [address] PCP - General Family Medicine 03/31/21 Kiki Lynn MD [address] [place] [address] Primary Staff Physician Cardiology 11/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 Start Date End Date Ganga Sheppard MD [address] [place] [address] PCP - General Family Medicine 03/31/21 Kiki Lynn MD [address] [place] [address] Primary Staff Physician Cardiology 11/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 Start Date End Date Ganga Sheppard MD [address] [place] [address] PCP - General Family Medicine 03/31/21 Kiki Lynn MD [address] [place] [address] Primary Staff Physician Cardiology 11/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 Start Date End Date Ganga Sheppard MD [address] [place] [address] PCP - General Family Medicine 03/31/21 Kiki Lynn MD [address] [place] [address] Primary Staff Physician Cardiology 11/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 Start Date End Date Ganga Sheppard MD [address] [place] [address] PCP - General Family Medicine 03/31/21 Kiki Lynn MD [address] [place] [address] Primary Staff Physician Cardiology 11/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 Start Date End Date Ganga Sheppard MD [address] [place] [address] PCP - General Family Medicine 03/31/21 Kiki Lynn MD [address] [place] [address] Primary Staff Physician Cardiology 11/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 Start Date End Date Ganga Sheppard MD [address] [place] [address] PCP - General Family Medicine 03/31/21 Kiki Lynn MD [address] [place] [address] Primary Staff Physician Cardiology 11/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 Start Date End Date Ganga Sheppard MD [facility] [place] [address] PCP - General Family Medicine 03/31/21 Kiki Lynn MD [address] [place] [address] Primary Staff Physician Cardiology 11/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 Start Date End Date Ganga Sheppard MD [address] [place] [address] PCP - General Family Medicine 03/31/21 Kiki Lynn MD [address] [place] [address] Primary Staff Physician Cardiology 11/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 Start Date End Date Ganga Sheppard MD [facility] [place] [address] PCP - General Family Medicine 03/31/21 Kiki Lynn MD [address] [place] [address] Primary Staff Physician Cardiology 11/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 Start Date End Date Ganga Sheppard MD [address] [place] [address] PCP - General Family Medicine 03/31/21 Kiki Lynn MD [address] [place] [address] Primary Staff Physician Cardiology 11/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 Start Date End Date Ganga hSeppard MD [address] [place] [address] PCP - General Family Medicine 03/31/21 Kiki Lynn MD [address] [place] [address] Primary Staff Physician Cardiology 11/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 Start Date End Date Ganga Sheppard MD [address] [place] [address] PCP - General Family Medicine 03/31/21 Kiki Lynn MD [address] [place] [address] Primary Staff Physician Cardiology 11/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 Start Date End Date Ganga Sheppard MD [address] [place] [address] PCP - General Family Medicine 03/31/21 Kiki Lynn MD [address] [place] [address] Primary Staff Physician Cardiology 11/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 Start Date End Date Ganga Sheppard MD [address] [place] [address] PCP - General Family Medicine 03/31/21 Kiki Lynn MD [address] [place] [address] Primary Staff Physician Cardiology 11/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 Start Date End Date Ganga Sheppard MD [address] [place] [address] PCP - General Family Medicine 03/31/21 Kiki Lynn MD [address] [place] [address] Primary Staff Physician Cardiology 11/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 Start Date End Date Ganga Sheppard MD [address] [place] [address] PCP - General Family Medicine 03/31/21 Kiki Lynn MD [address] [place] [address] Primary Staff Physician Cardiology 11/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 Start Date End Date Ganga Sheppard MD [address] [place] [address] PCP - General Family Medicine 03/31/21 Kiki Lynn MD [address] [place] [address] Primary Staff Physician Cardiology 11/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 Start Date End Date Ganga Sheppard MD [address] [place] [address] PCP - General Family Medicine 03/31/21 Kiki Lynn MD [address] [place] [address] Primary Staff Physician Cardiology 11/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 Start Date End Date Ganga Sheppard MD [address] [place] [address] PCP - General Family Medicine 03/31/21 Kiki Lynn MD [address] [place] [address] Primary Staff Physician Cardiology 11/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 Start Date End Date Ganga Sheppard MD [address] [place] [address] PCP - General Family Medicine 03/31/21 Kiki Lynn MD [address] [place], [place] [address] Primary Staff Physician Cardiology 11/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 Start Date End Date Ganga Sheppard MD [address] [place], [place] [address] PCP - General Family Medicine 03/31/21 Kiki Lynn MD [address] [place] [address] Primary Staff Physician Cardiology 11/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 Start Date End Date Ganga Sheppard MD [address] [place] [address] PCP - General Family Medicine 03/31/21 Kiki Lynn MD [address] [place] [address] Primary Staff Physician Cardiology 11/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 Start Date End Date Ganga Sheppard MD [address] [place] [address] PCP - General Family Medicine 03/31/21 Kiki Lynn MD [address] [place] [address] Primary Staff Physician Cardiology 11/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 Start Date End Date Ganga Sheppard MD [address] [place] [address] PCP - General Family Medicine 03/31/21 Kiki Lynn MD [address] [place] [address] Primary Staff Physician Cardiology 11/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 Start Date End Date Ganga Sheppard MD [address] [place] [address] PCP - General Family Medicine 03/31/21 Kiki Lynn MD [address] [place] [address] Primary Staff Physician Cardiology 11/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 Start Date End Date Ganga Sheppard MD [address] [place] [address] PCP - General Family Medicine 03/31/21 Kiki Lynn MD [address] [place] [address] Primary Staff Physician Cardiology 11/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 Start Date End Date Ganga Sheppard MD [address] [place] [address] PCP - General Family Medicine 03/31/21 Kiki Lynn MD [address] [place] [address] Primary Staff Physician Cardiology 11/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 [place] [address] [place] [address] PCP - General Family Medicine 03/31/21 Kiki Lynn MD [address] [place] [address] Primary Staff Physician Cardiology 11/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 Start Date End Date Ganga Sheppard MD [address] [place] [address] PCP - General Family Medicine 03/31/21 Kiki Lynn MD [address] [place] [address] Primary Staff Physician Cardiology 11/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 Start Date End Date Ganga Sheppard MD [address] [place] [address] PCP - General Family Medicine 03/31/21 Kiik Lynn MD [address] [place] [address] Primary Staff Physician Cardiology 11/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 Start Date End Date Ganga Sheppard MD [address] [place] [address] PCP - General Family Medicine 03/31/21 Kiki Lynn MD [address] [place] [address] Primary Staff Physician Cardiology 11/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 Start Date End Date Ganga Sheppard MD [address] [place] [address] PCP - General Family Medicine 03/31/21 Kiki Lynn MD [address] [place] [address] Primary Staff Physician Cardiology 11/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 Start Date End Date Ganga Sheppard MD [address] [place] [address] PCP - General Family Medicine 03/31/21 Kiki Lynn MD [address] [place] [address] Primary Staff Physician Cardiology 11/19/18 PRN Active and Recently Administ ered Medications (unrecognized section and content) INFORMATION SOURCE (unrecogn ized section and content) DATE CREATED AUTHOR AUTHOR'S ORGANIZ ATION 08/12/2023 [facility] ([place]) DATE CREATED AUTHOR AUTHOR'S ORGANIZ ATION 08/18/2023 [facility] DATE CREATED AUTHOR AUTHOR'S ORGANIZ ATION 08/29/2023 [facility] FOR RECORDS PERTAINING TO PATIENTS WHO ARE OR HAVE BEEN ENROLLED IN A CHEMICAL DEPENDENCY/SUBSTANCEABUSE PROGRAM, SOME INFORMATION MAY BE OMITTED. This clinical summary was aggregated from multiple sources. Caution should be exercised in using it in the provision of clinical care. This summary normalizes information from multiple sources, and as a consequence, information in this document may materially change the coding, format and clinical context of patient data. In addition, data may be omitted in some cases. CLINICAL DECISIONS SHOULD BE BASED ON THE PRIMARY CLINICAL RECORDS. [facility] [place] [facility]. provides no warranty or guarantee of the accuracy or completeness of information in this document.
--- NOTE | 2023-08-30 19:30 | CT_ITS ---
STUDY: CTA CHEST REASON FOR EXAM: Female, 63 years old. Aneurysm history RADIATION DOSAGE (If Supplied By Facility): CTDIvol = ( 22.58 ) mGy, DLP = ( 544.85 ) mGycm TECHNIQUE: The examination was performed with the intravenous administration of IV 100mL Isovue-370. Post-processing of the angiographic images was performed, with multiplanar reformation and 3D reconstruction. Individualized dose optimization techniques were used for this CT. COMPARISON: None. FINDINGS: Normal enhancement of the main pulmonary artery and right and left pulmonary arteries. Normal enhancement of the bilateral peripheral pulmonary arteries. There is no demonstrated pulmonary embolism. There is mild stable aneurysmal dilatation of the ascending aorta. The transverse diameter of the ascending aorta measures 42 mm''s. There is no demonstrated aortic dissection. Normal heart and pericardium. Normal mediastinum. Normal hilar regions. Normal visualized trachea and bronchi. The lungs are well expanded. Normal pulmonary parenchyma. Normal pleura. Normal chest wall structures. There are degenerative changes of thoracic spine. Normal visualized upper abdomen. CT/CTA Chest W/WO Contrast IMPRESSION: No change and no acute abnormality. No evidence of acute cardiopulmonary disease. 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 Electronically Signed: Arnav Montana MD at 16:17 EST ,
== END | disposition home or self-care (01) ==
LOC: CT 17:56
PROVIDERS: PCP Family Medicine; Referring Provider Nurse Practitioner Family; Visit Provider Nurse Practitioner Family
DX: I71.20 Thoracic aortic aneurysm, without rupture, unspecified (principal); R06.09 Other forms of dyspnea; E78.5 Hyperlipidemia, unspecified; I35.1 Nonrheumatic aortic (valve) insufficiency
CPT/HCPCS: 71275; Q9967; A4216

== ENCOUNTER → 2023-10-23 | Outpatient (CLI) | payer OTHER, MEDICARE, SELFPAY ==
--- NOTE | 2023-10-23 13:07 | ECHOD_ITS ---
Reason For Study: PRE-OP Procedure This was a 2D Doppler, Color Flow transthoracic echocardiogram. Exam performed in department. Left Ventricle Normal LV size. Left ventricular systolic function is normal. The left ventricular ejection fraction is 60 %. Stage 1 diastolic dysfunction. No regional wall motion abnormalities noted. Right Ventricle Normal RV size. Normal systolic function. Atria Normal left atrium. Normal right atrium. Mitral Valve Normal mitral valve. Mild (1+) eccentric mitral valve insufficiency. Tricuspid Valve Normal tricuspid valve. Mild (1+) tricuspid valve insufficiency. Pulmonary artery systolic pressure is 33 mmHg. Aortic Valve Trisinus/trileaflet aortic valve. Mild-Moderate (1-2+) aortic valve insufficiency. Pulmonic Valve Normal pulmonic valve. Great Vessels Mild to moderately dilated aortic root. The pulmonary artery is normal size. Normal inferior vena cava. Pericardium/Pleural No pericardial effusion. MMode/2D Measurements & Calculations LVIDd: 4.8 cm IVSd: 1.1 cm Ao root diam: 3.5 cm LVIDs: 3.1 cm LVPWd: 1.0 cm RVDd: 3.5 cm FS: 35.8 % LAV(MOD-bp): 35.6 ml LVAd ap4: 32.5 cm2 SV(MOD-sp4): 62.8 ml LAV(MOD-bp) Indexed: 17.4 ml/m2 LVLd ap4: 8.3 cm LAV(MOD-sp2): 34.2 ml EDV(MOD-sp4): 102.2 ml LAV(MOD-sp4): 34.3 ml EDV(sp4-el): 108.0 ml LVAs ap4: 17.8 cm2 LVLs ap4: 6.6 cm ESV(MOD-sp4): 39.5 ml ESV(sp4-el): 40.5 ml EF(MOD-sp4): 61.4 % EF(sp4-el): 62.5 % SV(sp4-el): 67.5 ml LA A4 area: 14.6 cm2 LA dimension(2D): 3.5 cm RA A4 area: 14.1 cm2 TAPSE: 2.1 cm Time Measurements MV dec time: 0.35 sec Doppler Measurements & Calculations MV E max cash: 45.8 cm/sec Lat Peak E' Cash: 8.2 cm/sec Med Peak E' Cash: 6.4 cm/sec MV A max cash: 75.3 cm/sec E/E' lat: 5.6 E/E' med: 7.1 MV E/A: 0.61 Ao V2 max: 158.1 cm/sec AI max cash: 480.9 cm/sec LV V1 max: 137.8 cm/sec Ao max P.0 mmHg AI max P.5 mmHg LV V1 max P.6 mmHg AI dec slope: 241.7 cm/sec2 AI P1/2t: 582.7 msec PA V2 max: 90.1 cm/sec TR max cash: 264.8 cm/sec TR max P.1 mmHg ECHO/Echo Complete Interpretation Summary Normal LV size. Left ventricular systolic function is normal. Trisinus/trileaflet aortic valve. Mild-Moderate (1-2+) aortic valve insufficiency. Mild to moderately dilated aortic root. The left ventricular ejection fraction is 60 %. Stage 1 diastolic dysfunction. The aortic root is unchanged in size. Ordering Physician: Too Anna/Guilherme Joshua Referring Physician: JERRELL SHEPPARD Performed By: Jacquelyn Guerra RDCS
== END | disposition home or self-care (01) ==
PROVIDERS: PCP Family Medicine; Referring Provider Nurse Practitioner Family; Visit Provider Nurse Practitioner Family
DX: R06.09 Other forms of dyspnea (principal); I71.20 Thoracic aortic aneurysm, without rupture, unspecified; I35.1 Nonrheumatic aortic (valve) insufficiency; E78.5 Hyperlipidemia, unspecified
CPT/HCPCS: 93306

== ENCOUNTER → 2023-11-07 | Outpatient (CLI) | payer OTHER, MEDICARE, SELFPAY ==
--- NOTE | 2023-11-07 14:59 | VDUE_ITS ---
Reason For Study: LUE Swelling Left Proximal Left jugular vein is spontaneous, widely patent, phasic, with no intraluminal echogenicity noted. Left subclavian vein is spontaneous, widely patent, phasic, with no intraluminal echogenicity noted. Left Arm Left axillary vein is spontaneous, patent, phasic, competent and demonstrates augmentation. Left brachial vein is compressible. Left cephalic vein is compressible. Left basilic vein is compressible. Left Lower Arm Left radial vein is compressible. Left ulnar vein is compressible. VL/Venous Duplex US, Unilateral Interpretation Summary Deep veins of the left upper extremity are patent and compressible segmentally. There is no evidence of deep vein thrombosis. Superficial veins of the left upper extremity are patent and compressible segme ntally. There is no evidence of superficial vein thrombosis. Ordering Physician: Fracisco Cortez Referring Physician: Ganga Nunez Performed By: Yuriy Jurado RVT ???
== END | disposition home or self-care (01) ==
PROVIDERS: PCP Family Medicine; Referring Provider Specialist; Visit Provider Specialist
DX: R22.32 Localized swelling, mass and lump, left upper limb (principal)
CPT/HCPCS: 93971

== ENCOUNTER → 2023-12-05 | Outpatient (CLI) | payer OTHER, MEDICARE, SELFPAY ==
--- NOTE | 2023-12-05 16:48 | CT_ITS ---
STUDY: CT LEFT SHOULDER REASON FOR EXAM: Female, 63 years old. POST OP FX, PAIN. RADIATION DOSAGE (If Supplied By Facility): CTDIvol = ( 24.96 ) mGy, DLP = ( 566.03 ) mGycm TECHNIQUE: The patient was scanned in a multi detector CT scanner. High resolution transaxial imaging was performed without the administration of intravenous contrast material. Sagittal and coronal images were reconstructed. Individualized dose optimization techniques were used for this CT. COMPARISON: None. 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 Normal coracoid process. Normal visualized lateral clavicle. There is mild osteoarthritis with articular joint space narrowing. There is a Type II morphology (curved) acromion, with a neutral orientation. Normal visualized muscles and soft tissue structures. There is no acute fracture seen. CT/Extremity Upper without Contra IMPRESSION: Reverse total shoulder replacement. No fracture seen. Electronically Signed: Toñito Ellis MD at 18:18 EDT ,
== END | disposition home or self-care (01) ==
LOC: CT 16:47
PROVIDERS: PCP Family Medicine; Referring Provider Specialist; Visit Provider Specialist
DX: I10 Essential (primary) hypertension (principal); Z47.1 Aftercare following joint replacement surgery; Z96.612 Presence of left artificial shoulder joint
CPT/HCPCS: 73200

== ENCOUNTER → 2023-12-07 | Outpatient (CLI) | payer OTHER, MEDICARE, SELFPAY ==
[2023-12-07 16:25] LABS: Absolute Lymphocyte Count 1.91 X10^3/uL (0.83-4.51); Absolute Neutrophil Count 4.5 X10^3/uL (2.0-7.7); Basophil# 0.01 X10^3/uL; Basophil% 0.1 % (0-1); Eosinophil# 0.14 X10^3/uL; Eosinophils% 1.9 % (0-5); Hematocrit 37.9 % (37-47); Hemoglobin 12.7 g/dL (12.0-15.0); Lymphocyte # 1.91 X10^3/ul (0.83-4.51); Lymphocyte % 25.4 % (19-41); Mean Corp Hgb Conc 33.5 g/dL (32-36); Mean Corpuscular Hgb 30.2 pg (27.0-32.0); Mean Platelet Vol. 10.9 fl (6.2-12.0); Monocyte# 0.93 X10^3/uL; Monocyte% 12.4 % (0-10); NRBC Flagged by Analyzer 0 % (0-5); Neutrophil # 4.52 X10^3/uL (2.7-7.7); Neutrophil % 59.9 % (47-70); Platelet Count 224 K/mm3 (150-450); RBC Distribution Width CV 14.1 % (11.6-14.6); RBC Distribution Width SD 45.2 fl (35.1-43.9); Red Blood Count 4.21 M/mm3 (4.2-5.4); White Blood Count 7.5 K/mm3 (4.4-11.0)
[2023-12-07 16:39] LABS: Erythrocyte Sedimentation Rate 9 mm/hr (0-30)
[2023-12-07 17:05] LABS: CRP < 2.90 mg/L (0.0-3.0)
== END | disposition home or self-care (01) ==
LOC: LAB 15:25
PROVIDERS: PCP Family Medicine; Referring Provider Specialist; Visit Provider Specialist
DX: T84.84XA Pain due to internal orthopedic prosthetic devices, implants and grafts, initial encounter (principal)
CPT/HCPCS: 36415; 85025; 85652; 86140

== ENCOUNTER → 2024-03-31 | Outpatient (CLI) | payer MEDICARE, OTHER, SELFPAY ==
[2024-03-31 12:47] LABS: Anion Gap 7 (5-15); BUN 21 mg/dL (7-18); BUN/Creat Ratio 24.5 RATIO (10-20); Calcium,Total 9.6 mg/dL (8.5-10.1); Chloride 107 mmol/L (98-107); Creatinine, Serum 0.86 mg/dL (0.55-1.02); EST Glomerular Filtration Rate 71 mL/min (>60); Est Glom Filt Rate - Afr Amer 85 mL/min (>60); Glucose 109 mg/dL (74-106); Potassium 3.8 mmol/L (3.5-5.1); Sodium Level 139 mmol/L (136-145)
[2024-03-31 12:55] LABS: BNP,B-Type NATRIURETIC PEPTIDE 7.1 pg/mL (0-100)
== END | disposition home or self-care (01) ==
LOC: LAB 11:18
PROVIDERS: PCP Family Medicine; Referring Provider Nurse Practitioner Family; Visit Provider Nurse Practitioner Family
DX: R06.09 Other forms of dyspnea (principal); I35.1 Nonrheumatic aortic (valve) insufficiency
CPT/HCPCS: 36415; 80048; 83880

== ENCOUNTER 2024-05-28 08:49 | Emergency (ER) | payer OTHER, MEDICARE, SELFPAY ==
[2024-05-28 08:51] VITALS: BP 160/88; PULSE 81; RESP 14; TEMP 36.6; O2SAT 95; BMI 31.9
--- NOTE | 2024-05-28 09:06 | EKG12_ITS ---
Test Reason : SOB Blood Pressure : / mmHG Vent. Rate : 067 BPM Atrial Rate : 067 BPM P-R Int : 178 ms QRS Dur : 088 ms QT Int : 432 ms P-R-T Axes : 042 -11 019 degrees QTc Int : 456 ms Sinus rhythm with frequent Premature ventricular complexes Otherwise normal ECG Confirmed by Rafael Daniel ([id number]), editorial manager SIMÓN JOSEPH ([id number]) on 05/30/2024 9:44:56 AM Referred By: Confirmed By:Rafael Daniel
--- NOTE | 2024-05-28 09:06 | CT_ITS ---
STUDY: CT ABDOMEN AND PELVIS WITH CONTRAST REASON FOR EXAM: Female, 64 years old. LLQ pain, bright red blood per rectum RADIATION DOSAGE (If Supplied By Facility): CTDIvol = ( 16.73 ) mGy, DLP = ( 1099.23 ) mGycm TECHNIQUE: Transaxial images were obtained from the dome of the diaphragm to the symphysis pubis without oral contrast. IV-100 ML ISOVUE 370 was administered. Sagittal and coronal images were reconstructed. Individualized dose optimization techniques were used for this CT. COMPARISON: Comparison is made with prior study dated March 17, 2020. FINDINGS: The visualized lung bases are unremarkable. The visualized portions of the heart are within normal limits. There is decreased attenuation of the liver consistent with steatosis. Normal gallbladder and extrahepatic biliary system. Normal spleen. Normal pancreas. Normal bilateral adrenal glands. There is a 6.1 cm x 6.1 cm cyst in the upper midportion of the right kidney. Normal left kidney. Normal visualized stomach. Normal small intestine. There are multiple colonic diverticula consistent with diverticulosis. Surgical anastomosis seen in the colorectal region. There is non-visualization of the appendix. There is scattered atherosclerotic calcification of the abdominal aorta, without a demonstrated aneurysm. Normal inferior vena cava. Normal retroperitoneum. Normal urinary bladder. There is absence of the uterus consistent with a prior hysterectomy. Normal abdominal wall. Normal osseous structures. CT/Abdomen/Pelvis W IV Cont ONLY IMPRESSION: Scattered sigmoid diverticulosis. There is evidence of a surgical anastomosis at the colorectal junction. Stable right renal cyst. Fatty infiltration of the liver. Electronically Signed: Alexandre Suggs MD at 11:13 EDT ,
--- NOTE | 2024-05-28 09:07 | EDS_ITS ---
HPI History of Present Illness Chief Complaint: GI Bleed Narrative Narrative: Patient is a 64-year-old female with past medical history of IBS, depression, diverticulitis, hypertension, hyperlipidemia who presents to the emergency department chief complaint of rectal bleeding. Patient states that yesterday she had a bowel movement that was bloody that filled the toilet. She states that it then happened again this morning she called the on-call nurse and they advised her to come here for further evaluation management. Patient denies any blood thinning medications. States that nothing like this has happened in the past. Patient states that she did have diverticulitis in the past and had a colostomy with reversal in the past. [facility] Medical History Rheumatoid arthritis Wears glasses Post-menopausal Depression Alcohol use Arthritis High cholesterol Easy bruising Excessive bleeding Neck pain Restless legs History of IBS History of diverticulitis Heartburn Gastric reflux Non-smoker CPAP (continuous positive airway pressure) dependence On home oxygen therapy Leg cramps Fibromyalgia History of stress test Cardiology follow-up encounter Hx of hydrocephalus History of tennis elbow Nonrheumatic aortic (valve) insufficiency Acute respiratory failure with hypoxia COVID-19 Valvular heart disease Non-rheumatic tricuspid valve insufficiency Essential hypertension Tricuspid insufficiency Thoracic aneurysm without mention of rupture Hyperlipidemia Abnormal electrocardiogram Nonrheumatic mitral valve disorder, unspecified Nonrheumatic aortic valve disorder, unspecified Abnormal echocardiogram Ascending aortic aneurysm Anxiety Diverticulitis Home Medications ?Medication ?Instructions ?Recorded ?Last Taken ?Type vitamin B complex 1 ea PO DAILY VITAMIN 03/24/16 05/27/24 History multivitamin with folic acid 400 1 tab PO DAILY 06/17/17 05/27/24 History mcg tablet albuterol sulfate 90 mcg/actuation 1 inh inhalation Q6H PRN shortness 05/31/21 Unknown Rx aerosol inhaler of breath or wheezing #8.5 grams lorazepam 0.5 mg tablet 1 mg (2 x 0.5 mg) PO DAILY PRN PRN 05/31/21 06/16/23 Rx Anxiety #18 tabs trazodone 100 mg tablet 100 mg PO QHS 10/24/21 05/27/24 History cholecalciferol (vitamin D3) 125 10,000 unit PO DAILY 01/25/22 05/27/24 History mcg (5,000 unit) tablet azelastine 137 mcg (0.1 %) nasal 2 spray intranasal BID PRN 08/07/22 Unknown History spray ALLERGIES cetirizine 10 mg capsule (All Day 10 mg PO DAILY 08/07/22 Unknown History Allergy (cetirizine)) hydroxyzine HCl 10 mg tablet 10 mg PO TID PRN Anxiety 08/07/22 06/16/23 History hydroxychloroquine 200 mg tablet 200 mg PO BID 05/10/23 06/16/23 History cyclobenzaprine 10 mg tablet 10 mg PO TID PRN spasms 08/15/23 05/27/24 History metoprolol succinate 100 mg 100 mg PO QHS #90 tabs 11/13/23 05/27/24 Rx tablet,extended release 24 hr clonazepam 0.5 mg tablet (Klonopin) 0.5 mg PO QHS #30 tabs 03/18/24 05/27/24 Rx fluoxetine 40 mg capsule mg PO 03/31/24 Unknown History hydrochlorothiazide 25 mg tablet 25 mg PO QDAY 03/31/24 Unknown History losartan 100 mg tablet 100 mg PO QDAY 03/31/24 Unknown History menophix See Rx Instructions PO .COMPLEX 03/31/24 Unknown History celecoxib 200 mg capsule 200 mg PO DAILY 05/28/24 Unknown History Allergy/AdvReac Type Severity Reaction Status Date / Time oxycodone Allergy Swelling Verified 05/28/24 08:53 hydromorphone (From Dilaudid) AdvReac Other Verified 05/28/24 08:53 nabumetone (From Relafen) AdvReac Nausea Verified 05/28/24 08:53 Sulfa (Sulfonamide AdvReac Nausea Verified 05/28/24 08:53 Antibiotics) tramadol HCl (From Ultram) AdvReac Nausea Verified 05/28/24 08:53 Family History Father CAD (coronary artery disease) Mother aneursym Surgical History History of hip replacement Hx of shoulder surgery Hx of appendectomy Hx of tubal ligation Hx of rotator cuff surgery History of hernia repair History of colon surgery (~10/2017) Social History Smoking Status: Former smoker alcohol intake: never substance use type: does not use caffeine: Yes Type: tea Number of servings: 1 what type of physical activity do you participate in: walking frequency: daily duration: < 15 minutes/day seatbelt use: always do you feel safe at home: Yes ROS ROS ED ROS Narrative Constitutional: Denies any fevers, chills, headaches, lightheadedness, dizziness Eyes: Denies changes double vision blurry vision Cardiovascular: Denies chest pain or palpitations Respiratory: Denies coughing wheezing shortness of breath Abdomen: Complains of some abdominal discomfort rates her pain at 7 out of 10 as well as bloody diarrhea as noted above denies any vomiting : Denies painful urination, hematuria, polyuria Neurological: Denies numbness, weakness, tingling Musculoskeletal: Denies back pain Skin: Denies rashes or lesions EXAM Physical Exam Narrative Exam Narrative: General: Patient lying in bed rest comfortably did not appear to be in acute distress Head: Atraumatic, normocephalic Eyes: PERRL bilateral, EOMI bilateral, no conjunctival injection noted Cardiovascular: Regular rate and rhythm no murmurs gallops rubs noted Respiratory: Clear to auscultation bilaterally no rales rhonchi or wheezes noted Abdomen: Soft, nondistended, tenderness palpation of the left lower quadrant no rebound or guarding on exam, bowel sounds present x 4 Extremities: +5/5 strength noted in the bilateral upper and lower extremities, no pedal edema no exam, radial pulses +2/4 in the bilateral per extremities Neurological: Patient following commands knew that she was at [facility] year is 2023 Skin: Warm, dry, intact Const Vital Signs: 05/28/24 08:51 05/28/24 10:50 05/28/24 10:50 Temperature 97.8 F Temperature Source Oral Pulse Rate 81 81 57 L Respiratory Rate 14 20 H 16 Blood Pressure 160/88 H 154/85 H 154/85 H Blood Pressure Mean 112 108 108 Pulse Ox 95 100 98 Oxygen Delivery Method Room Air Room Air Room Air 05/28/24 12:00 05/28/24 12:45 Temperature 97.8 F Temperature Source Pulse Rate 63 57 L Respiratory Rate 18 Blood Pressure 144/71 H 150/81 H Blood Pressure Mean 95 104 Pulse Ox 95 93 Oxygen Delivery Method MDM MDM MDM Narrative Medical decision making narrative: Patient is a 64-year-old female who presented to the emerged part with a chief complaint of lower GI bleed. Patient will have a workup performed here on the differential diagnose includes but limited to hemorrhoid, diverticulosis, diverticulitis. Once workup is obtained reviewed she will be reevaluated. Patient given IV fluids, fentanyl and Zofran. Patient CBC reviewed and was largely unremarkable no evidence leukocytosis white blood count normal at 5.3, hemoglobin stable 12.4, platelet count was noted be normal at 206. Patient's INR normal at 1, PT normal at 13. Patient sodium normal at 142, potassium normal 3.8, creatinine normal at 0.91. Patient lactic acid was 2.3, AST and ALT were 27 and 43 respectively. Patient's urinalysis did not reveal any evidence infection. Patient CT abdomen pelvis with IV contrast reviewed and showed scattered sigmoid diverticulosis. There is evidence of surgical anastomosis at the colorectal junction. Stable right renal cyst. Fatty infiltration of the liver. Patient Hemoccult was positive. Called and discussed the case with the hospitalist and is recommending repeat hemoglobin and if this is normal to discharge her home. Repeat hemoglobin was obtained was noted to be normal at 12.2. I discussed the plans with the patient and advised her to call her primary care physician today and tell them that she needs a repeat hemoglobin check on Sunday. She was encouraged return with worsening bleeding worsening pain, lightheadedness, shortness of breath or any other concerns. Once again the patient is not on anticoagulation. Patient is agreeable with this plan and prefers to do this over admission. All question concerns answered she was discharged home in stable condition. Lab Data Labs: Laboratory Results - last 24 hr 05/28/24 05/28/24 05/28/24 09:28 10:55 12:35 WBC 5.3 RBC 4.04 L Hgb 12.4 12.2 Hct 37.5 37.9 MCV 92.8 MCH 30.7 MCHC 33.1 RDW Std Deviation 45.9 H RDW Coeff of Roshan 13.5 Plt Count 206 MPV 11.7 Immature Gran % (Auto) 0.200 Neut % (Auto) 49.4 Lymph % (Auto) 35.9 [place] % (Auto) 11.6 H Eos % (Auto) 2.5 Baso % (Auto) 0.4 Absolute Neuts (auto) 2.6 Absolute Lymphs (auto) 1.89 Nucleated RBC % 0 PT 13.0 INR 1.0 APTT 26.5 Sodium 142 Potassium 3.8 Chloride 109 H Carbon Dioxide 25.0 Anion Gap 8 BUN 19 H Creatinine 0.91 Estim Creat Clear Calc 73.38 Est GFR (MDRD) Af Amer 80 Est GFR (MDRD) Non-Af 66 BUN/Creatinine Ratio 20.9 H Glucose 107 H Lactic Acid 2.3 H* Calcium 9.1 Total Bilirubin 0.40 AST 27 ALT 43 Alkaline Phosphatase 154 H Total Protein 7.1 Albumin 3.7 Globulin 3.4 Albumin/Globulin Ratio 1.1 Lipase 25 Urine Color Yellow Urine Clarity Sl. Cloudy Urine pH 6.0 Ur Specific Marble 1.010 Urine Protein Negative Urine Glucose (UA) Normal Urine Ketones Negative Urine Occult Blood 10 H Urine Nitrite Negative Urine Bilirubin Negative Urine Urobilinogen Normal Ur Leukocyte Esterase Negative Urine RBC 0-5 SEEN Urine WBC 0 SEEN Ur Squamous Epith Cells 0-5 SEEN Urine Bacteria 0 SEEN Urine Mucus 0 SEEN Blood Type O POSITIVE Antibody Screen NEGATIVE Radiography Diagnostic Testing: Clinical Impression(s) from Imaging Studies Abdomen/Pelvis CT 05/28/24 09:06 IMPRESSION: Scattered sigmoid diverticulosis. There is evidence of a surgical anastomosis at the colorectal junction. Stable right renal cyst. Fatty infiltration of the liver. Electronically Signed: Alexandre Suggs MD at 11:13 EDT , Discharge Plan Triage Chief Complaint: GI Bleed ED Provider: David Schwartz Dx/Rx/DC Orders Clinical Impression: Acute lower GI bleeding Prescriptions: No Action trazodone 100 mg tablet 100 mg PO QHS cholecalciferol (vitamin D3) 125 mcg (5,000 unit) tablet 10,000 unit PO DAILY hydroxyzine HCl 10 mg tablet 10 mg PO TID PRN (Reason: Anxiety) All Day Allergy (cetirizine) 10 mg capsule 10 mg PO DAILY azelastine 137 mcg (0.1 %) aerosol,spray 2 spray intranasal BID PRN (Reason: ALLERGIES) Rx Instructions: administer into each nostril cyclobenzaprine 10 mg tablet 10 mg PO TID PRN (Reason: spasms) clonazepam [Klonopin] 0.5 mg tablet 0.5 mg PO QHS Qty: 30 0RF Rx Instructions: administer 30 minutes before bedtime hydrochlorothiazide 25 mg tablet 25 mg PO QDAY menophix See Rx Instructions PO .COMPLEX Rx Instructions: 2 capsules QAM orally; losartan 100 mg tablet 100 mg PO QDAY fluoxetine 40 mg capsule PO vitamin B complex 1 EACH capsule 1 ea PO DAILY Patient Comments: Vitamin supplment multivitamin with folic acid 1 TABLET tablet 1 tab PO DAILY lorazepam 0.5 mg Tablet 1 mg PO DAILY PRN PRN (Reason: Anxiety) Qty: 18 0RF albuterol sulfate 90 mcg/actuation HFA aerosol inhaler 1 inh inhalation Q6H PRN (Reason: shortness of breath or wheezing) Qty: 8.5 0RF hydroxychloroquine 200 mg tablet 200 mg PO BID celecoxib 200 mg capsule 200 mg PO DAILY metoprolol succinate 100 mg tablet extended release 24 hr 100 mg PO QHS Qty: 90 3RF Primary Care Provider: Ganga Nunez Referrals: Ganga Nunez MD [Primary Care Provider] - Activity Restrictions/Additional Instructions: Call your primary care physician this afternoon and tell them that you need a repeat hemoglobin on Sunday. Return with lightheadedness, shortness of breath, worsening pain, worsening bleeding or any other concerns. Print Language: Bahraini Disposition Disposition: Home, Self Care
[2024-05-28] MEDS: fentaNYL 100 MCG/2 ML Ampul 50 MCG IV (09:39)
[2024-05-28] MEDS: 0.9% Normal Saline (1000mL) 1,000 ML 999 ML IV (09:39)
[2024-05-28] MEDS: Ondansetron 4 MG/2 ML Vial IV (09:40)
[2024-05-28 09:42] LABS: Absolute Lymphocyte Count 1.89 X10^3/uL (0.83-4.51); Absolute Neutrophil Count 2.6 X10^3/uL (2.0-7.7); Basophil# 0.02 X10^3/uL; Basophil% 0.4 % (0-1); Eosinophil# 0.13 X10^3/uL; Eosinophils% 2.5 % (0-5); Hematocrit 37.5 % (37-47); Hemoglobin 12.4 g/dL (12.0-15.0); Lymphocyte # 1.89 X10^3/ul (0.83-4.51); Lymphocyte % 35.9 % (19-41); Mean Corp Hgb Conc 33.1 g/dL (32-36); Mean Corpuscular Hgb 30.7 pg (27.0-32.0); Mean Corpuscular Volume 92.8 fL (81-99); Mean Platelet Vol. 11.7 fl (6.2-12.0); Monocyte# 0.61 X10^3/uL; Monocyte% 11.6 % (0-10); NRBC Flagged by Analyzer 0 % (0-5); Neutrophil % 49.4 % (47-70); Platelet Count 206 K/mm3 (150-450); RBC Distribution Width CV 13.5 % (11.6-14.6); RBC Distribution Width SD 45.9 fl (35.1-43.9); Red Blood Count 4.04 M/mm3 (4.2-5.4); White Blood Count 5.3 K/mm3 (4.4-11.0)
[2024-05-28 10:02] LABS: Partial Thromboplast Time 26.5 Seconds (24.1-36.2)
[2024-05-28 10:13] LABS: ALB/GLOB Ratio 1.1 RATIO (0.9-2.4); AST(SGOT) 27 U/L (15-37); Alanine Aminotransfer ALT/SGPT 43 U/L (13-56); Albumin, Serum 3.7 g/dL (3.2-5.0); Alkaline Phosphatase 154 U/L (45-117); Anion Gap 8 (5-15); BUN 19 mg/dL (7-18); BUN/Creat Ratio 20.9 RATIO (10-20); Calcium,Total 9.1 mg/dL (8.5-10.1); Chloride 109 mmol/L (98-107); Creatinine, Serum 0.91 mg/dL (0.55-1.02); EST Glomerular Filtration Rate 66 mL/min (>60); Est Glom Filt Rate - Afr Amer 80 mL/min (>60); Estimated Creatinine Clearance 73.38 ml/min; Globulin 3.4 g/dL (2.2-4.2); Glucose 107 mg/dL (74-106); Lipase 25 U/L (13-75); Potassium 3.8 mmol/L (3.5-5.1); Protein, Total 7.1 g/dL (6.4-8.2); Sodium Level 142 mmol/L (136-145)
[2024-05-28 10:19] LABS: Lactic Acid 2.3 mmol/L (0.4-1.9)
[2024-05-28 10:50] VITALS: BP 154/85; PULSE 57; PULSE 81; RESP 16; RESP 20; O2SAT 100; O2SAT 98
[2024-05-28 11:01] LABS: Bacteria 0 SEEN /hpf (None Seen); Mucous, Urine 0 SEEN /hpf (<or=2+); White Blood Cells 0 SEEN /hpf (0-5)
[2024-05-28 11:04] LABS: Color, Urine Yellow (Yellow); Glucose, Dipstick Normal (Normal); Ketone-Dipstick Negative (Negative); Leukocyte Esterase-Dipstick Negative /ul (Negative); Nitrite-Dipstick Negative (Negative); Occult Blood-Urine 10 /ul (Negative); Protein-Dipstick Negative (Negative); Urine Bilirubin Dipstick Negative (Negative); Urine Clarity Sl. Cloudy (Clear); Urine Urobilinogen Normal (Normal)
[2024-05-28 11:10] LABS: Red Blood Cells-Urine 0-5 SEEN /hpf (0-5); Squamous Epithelial Cells - UA 0-5 SEEN /hpf (5-10)
[2024-05-28 12:00] VITALS: BP 144/71; PULSE 63; O2SAT 95
[2024-05-28 12:41] LABS: Hematocrit 37.9 % (37-47); Hemoglobin 12.2 g/dL (12.0-15.0)
[2024-05-28 12:45] VITALS: BP 150/81; PULSE 57; RESP 18; TEMP 36.6; O2SAT 93
[2024-05-28 13:35] LABS: Reflex Lactate? Y
[2024-05-28 14:00] VITALS: BP 159/69; O2SAT 93
== END 2024-05-28 14:23 | disposition home or self-care (01) ==
PROVIDERS: Emergency Provider Emergency Medicine; PCP Family Medicine; Visit Provider Emergency Medicine
DX: K92.2 Gastrointestinal hemorrhage, unspecified (principal); Z79.51 Long term (current) use of inhaled steroids; Z87.891 Personal history of nicotine dependence
CPT/HCPCS: 74177; 80053; 81001; 82274; 83605; 83690; 85014; 85018; 85025; 85610; 85730; 86850; 86900; 86901; 93005; 96361; 96374; 96375; 96376; 99283; J7030; Q9967; A4216; J2405

== ENCOUNTER → 2024-07-24 | Outpatient (CLI) | payer OTHER, MEDICARE, SELFPAY ==
[2024-07-24 11:28] LABS: Absolute Lymphocyte Count 2.49 X10^3/uL (0.83-4.51); Absolute Neutrophil Count 4.7 X10^3/uL (2.0-7.7); Basophil# 0.03 X10^3/uL; Basophil% 0.4 % (0-1); Eosinophil# 0.09 X10^3/uL; Eosinophils% 1.1 % (0-5); Hematocrit 40.1 % (37-47); Hemoglobin 13.6 g/dL (12.0-15.0); Lymphocyte # 2.49 X10^3/ul (0.83-4.51); Lymphocyte % 30.3 % (19-41); Mean Corp Hgb Conc 33.9 g/dL (32-36); Mean Corpuscular Hgb 31.3 pg (27.0-32.0); Mean Corpuscular Volume 92.2 fL (81-99); Mean Platelet Vol. 11.9 fl (6.2-12.0); Monocyte# 0.89 X10^3/uL; Monocyte% 10.8 % (0-10); NRBC Flagged by Analyzer 0 % (0-5); Neutrophil # 4.69 X10^3/uL (2.7-7.7); Neutrophil % 57.2 % (47-70); Platelet Count 203 K/mm3 (150-450); RBC Distribution Width CV 12.9 % (11.6-14.6); Red Blood Count 4.35 M/mm3 (4.2-5.4); White Blood Count 8.2 K/mm3 (4.4-11.0)
== END | disposition home or self-care (01) ==
LOC: LAB 10:08
PROVIDERS: PCP Family Medicine; Referring Provider Student in an Organized Health Care Education/Training Program; Visit Provider Student in an Organized Health Care Education/Training Program
DX: K92.1 Melena (principal)
CPT/HCPCS: 36415; 85025

== ENCOUNTER → 2024-08-08 | Outpatient (CLI) | payer OTHER, MEDICARE, SELFPAY ==
--- NOTE | 2024-08-08 07:53 | US_ITS ---
STUDY: ABDOMINAL ULTRASOUND - RIGHT UPPER QUADRANT; ELASTOGRAPHY REASON FOR VISIT: Female, 64 years old. Fatty infiltration of the liver. TECHNIQUE: Ultrasound evaluation of the right upper quadrant was performed with real-time and static pichardo-scale imaging. Point quantification shear wave elastography was performed [employer] TECHNICAL QUALITY: Adequate. COMPARISON: Comparison is made with prior CT scan of the abdomen and pelvis dated May 28, 2024. FINDINGS: Liver: The liver measures 16.1 cm. There is increased echogenicity consistent with fatty infiltration. The bile ducts are within normal limits. There is hepatic color flow. The direction of portal flow is hepatopetal. There is no demonstrated mass lesion. Median liver stiffness measured 11.6 kPa. Gallbladder: Normal distended gallbladder. The gallbladder wall measures 2.0 mm. There is a negative sonographic Zuñiga''s sign. There is no pericholecystic fluid. There are no gallstones. Common Bile Duct (C.B.D.): The common bile duct measures 4.0 mm. Pancreas: There is normal echogenicity of the visualized pancreas. There is no demonstrated pancreatic mass or cyst. Right Kidney: Normal size of the right kidney. The right kidney measures 11.6 cm x 5.1 cm x 5.4 cm. Normal renal cortex. The right cortex measures 1.8 cm. There is a 6.6 cm x 6.2 centimeters by 5.5 cm cyst in the superior lateral portion of the right kidney. There is no right hydronephrosis. US/ABD Limited w/ Elastography IMPRESSION: 1. Liver stiffness measures 11.6 kPa compatible with F2-F3 (Mild to moderate liver fibrosis) Metavir score. Electronically Signed: Alexandre Suggs MD at 9:44 EST ,
== END | disposition home or self-care (01) ==
LOC: US 07:48
PROVIDERS: PCP Family Medicine; Referring Provider Student in an Organized Health Care Education/Training Program; Visit Provider Student in an Organized Health Care Education/Training Program
DX: K76.0 Fatty (change of) liver, not elsewhere classified (principal)
CPT/HCPCS: 76705; 76981

== ENCOUNTER 2024-09-23 12:59 | Day surgery (SDC) | payer OTHER, MEDICARE, SELFPAY ==
--- NOTE | 2024-09-18 15:54 | PAT.ANESEVAL ---
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 When Was Last Pacemaker Check QUESTION #4 FULL TEXT: You/Your Family Experience fever (hyperthermia) with Anesthesia Last Oral Intake Last Oral intake: Last Oral Intake NPO since Meds taken in AM with sips of water? Meds patient instructed to take am of surgery PONV PONV - television production clerk: PONV - television production clerk Female Yes 09/18/24 15:23 HX of Motion Sickness No 09/18/24 15:23 HX of N/V After Surgery Yes 09/18/24 15:23 Non-Smoker No 09/18/24 15:23 Duration of Surgery greater No 09/18/24 15:23 than 60 minutes Number of Risk Factors 2 09/18/24 15:23 PONV Score Moderate Risk 09/18/24 15:23 Height & Weight Height & Weight: Anesthesia: Height & Weight Height 5 ft 8 in 06/17/24 11:08 Respiratory Assessment Respiratory Assessment - television production clerk: Respiratory Tract Infection Hx - television production clerk Hx Respiratory Tract Infection Yes: CURRENTLY HAS SINUS 09/18/24 15:23 INFECTION ON ANTIBIOTIC 09/18 STOP Sleep Apnea STOP Sleep Apnea - television production clerk: STOP Sleep Apnea - television production clerk Hx Hypertension Yes: CONTROLLED WITH MED, 09/18/24 15:23 PRN MEDS Hx Sleep Apnea Yes 09/18/24 15:23 CPAP Yes 09/18/24 15:23 BIPAP No 09/18/24 15:23 Do you snore loudly (louder than talking or can be heard Do you often feel tired/ fatigued/ sleepy during daytime? Has anyone observed you stop breathing during sleep? STOP Results Positive 09/18/24 15:23 QUESTION #5 FULL TEXT : Do you snore loudly (louder than talking or can be heard through closed doors)? 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 Specify any problems Hx of Preganancy in last 3 N/A 09/18/24 15:23 Months Nurse Filling Out Transfusion NBUCHER 09/18/24 15:23 & Questions: Date: 09/18/24 09/18/24 15:23 Time: 15:09/18/24 15:23 Patient unable to answer at this time (ie. confused, unrespo /Reproduction History /Reproductive History - television production clerk: /Reproductive Hx- television production clerk Hx Now Gestational Age (in weeks): EDC: Hx Hx Para Hx Section SAB No 06/05/23 15:06 PFSH Medical History Cancer DVT (deep venous thrombosis) Migraine headache Former smoker Shortness of breath on exertion Rheumatoid arthritis Wears glasses Post-menopausal Depression Alcohol use Arthritis High cholesterol Easy bruising Excessive bleeding Neck pain Restless legs History of IBS History of diverticulitis Heartburn Gastric reflux Non-smoker CPAP (continuous positive airway pressure) dependence On home oxygen therapy Leg cramps Fibromyalgia History of stress test Cardiology follow-up encounter Hx of hydrocephalus History of tennis elbow Nonrheumatic aortic (valve) insufficiency Acute respiratory failure with hypoxia COVID-19 Valvular heart disease Non-rheumatic tricuspid valve insufficiency Essential hypertension Tricuspid insufficiency Thoracic aneurysm without mention of rupture Hyperlipidemia Abnormal electrocardiogram Nonrheumatic mitral valve disorder, unspecified Nonrheumatic aortic valve disorder, unspecified Abnormal echocardiogram Ascending aortic aneurysm Anxiety Diverticulitis Home Medications ?Medication ?Instructions ?Recorded ?Last Taken ?Type multivitamin with folic acid 400 1 tab PO DAILY 06/17/17 05/27/24 History mcg tablet albuterol sulfate 90 mcg/actuation 1 inh inhalation Q6H PRN shortness 05/31/21 Unknown Rx aerosol inhaler of breath or wheezing #8.5 grams trazodone 100 mg tablet 100 mg PO QHS 10/24/21 05/27/24 History cholecalciferol (vitamin D3) 125 10,000 unit PO DAILY 01/25/22 05/27/24 History mcg (5,000 unit) tablet azelastine 137 mcg (0.1 %) nasal 2 spray intranasal BID PRN 08/07/22 Unknown History spray ALLERGIES clonazepam 0.5 mg tablet (Klonopin) 0.5 mg PO QHS #30 tabs 03/18/24 05/27/24 Rx fluoxetine 40 mg capsule 40 mg PO DAILY 03/31/24 Unknown History celecoxib 200 mg capsule 200 mg PO DAILY 05/28/24 Unknown History budesonide-formoterol HFA 160 2 puff inhalation BID 06/17/24 Unknown History mcg-4.5 mcg/actuation aerosol inhaler (Symbicort) folic acid 1 mg tablet 1 mg PO QDAY 06/17/24 Unknown History hydrochlorothiazide 25 mg tablet 25 mg PO QDAY PRN HTN 06/17/24 Unknown History methotrexate sodium 2.5 mg tablet 2.5 mg PO REYES 06/17/24 Unknown History metoprolol succinate 100 mg 100 mg PO QHS PRN Elevated blood 06/17/24 Unknown Rx tablet,extended release 24 hr pressure #90 tabs Allergy/AdvReac Type Severity Reaction Status Date / Time oxycodone Allergy Swelling Verified 09/18/24 15:20 hydromorphone (From Dilaudid) AdvReac Other Verified 09/18/24 15:20 nabumetone (From Relafen) AdvReac Nausea Verified 09/18/24 15:20 Sulfa (Sulfonamide AdvReac Nausea Verified 09/18/24 15:20 Antibiotics) tramadol HCl (From Ultram) AdvReac Nausea Verified 09/18/24 15:20 Family History Father CAD (coronary artery disease) Mother aneursym Surgical History (Updated 09/18/24 @ 15:36 by Amanda Partida) History of colonoscopy History of esophagogastroduodenoscopy (EGD) History of hip replacement Hx of shoulder surgery Hx of appendectomy Hx of tubal ligation Hx of rotator cuff surgery History of hernia repair History of colon surgery (~10/2017) Social History Smoking Status: Former smoker alcohol intake: never substance use type: does not use caffeine: Yes Type: tea Number of servings: 1 what type of physical activity do you participate in: walking frequency: daily duration: < 15 minutes/day seatbelt use: always do you feel safe at home: Yes Audit: Pertinent Findings Pertinent Findings EKG Perinent findings: 05/28/2024 67 bpm sinus rhythm with frequent PVCs otherwise normal EKG Stress test pertinent findings: 09/21/2022 negative EF 60% Echo (EF%) pertinent findings: 10/23/2023 normal size function EF 60% Consult pertinent findings: Cardiology 06/17/2024 dyspnea on exertion stable prior workup negative hypertension chronic stable thoracic aneurysm without mention of rupture stable based on most recent CT scan Recommendation Anesthesia Recommendation Anesthesia recommendation: OPTIMIZED for anesthesia
[2024-09-23] VITALS (7 sets, daily range): BP systolic 88–162; BP diastolic 57–91; PULSE 64–77; RESP 16–18; TEMP 36.2–36.4; O2SAT 93–96; BMI 29.2
--- NOTE | 2024-09-23 | GASB_PTH ---
PATIENT: BEAN BURCH LOC: EN U#:[id number] AGE/SX: 64/F ROOM: RE09/23/[address]: Dr. Magdi Tam DO : 1960 BED: DIS: 09/23/2024 SPEC #: [id number] RECD: 09/24/24 09:05 STATUS: RAQUEL JEREMY #: [id number] NATE: 09/23/24 00:[address]: Magdi Tam DEPT: SURGICAL PATHOLOGY RECD BY: Miko Woody ENTERED: 09/24/24 09:06 SP TYPE: Gastric Bx OTHR DR: Dr. Ganga Nunez MD Tissues: A - Gastric mucous membrane B - Duodenum, NOS C - Esophageal mucous membrane D - Ileum, NOS E - COLON BIOPSY Procedures: Special Stain Group I Surgery Specimen Level IV Alcian Blue/PAS (control) HEADER OPERATION: Colonoscopy with biopsy, EGD with biopsy PRE-OP DIAGNOSIS: Diarrhea, hematochezia TISSUE SUBMITTED: A- Gastric antrum biopsy, B- Duodenum biopsy, C- Distal esophagus biopsy,D- Terminal ileum biopsy, E- Random colon biopsy MICROSCOPIC DIAGNOSIS A. Gastric antrum, biopsy: Mild gastritis. See microscopic description and comment. B. Duodenum, biopsy: Fragments of duodenal mucosa, no pathologic diagnosis. C. Distal esophagus, biopsy: Fragments of gastroesophageal mucosa with focal intestinal metaplasia (goblet cell metaplasia), consistent with Kyle's esophagus. Chronic inflammation. Negative for dysplasia. See comment. D. Terminal ileum, biopsy: Fragments of small intestinal mucosa, no pathologic diagnosis. E. Colon, random biopsy: Fragments of colonic mucosa, no pathologic diagnosis. RAMSEY. 09/25/2024 COMMENT A. The results of immunohistochemistry for Helicobacter pylori will be reported separately ([id number]). C. Alcian blue/PAS stain with matched control is used in the evaluation of the specimen. Immunohistochemistry ([id number]) for P53 and Ki-67 will be performed, and results will be reported separately. The specimen predominantly consists of gastric mucosa. MICROSCOPIC DESCRIPTION Slides are reviewed. A. The specimen shows fragments of gastric mucosa with chronic inflammatory cell infiltrates in the lamina propria consisting of lymphocytes and plasma cells, consistent with mild chronic gastritis. GROSS DESCRIPTION A. Received in fixative is one container labeled with the patient's name and designated Gastric antrum biopsy. The specimen consists of two irregular fragments of light pfeiffer soft tissue that in aggregate measure 0.6 x 0.4 x 0.2 cm. The specimen is totally submitted in one cassette. B. Received in fixative is one container labeled with the patient's name and designated Duodenum biopsy. The specimen consists of multiple irregular fragments of light pfeiffer soft tissue that in aggregate measure 1.1 x 0.3 x 0.2 cm. The specimen is totally submitted in one cassette. C. Received in fixative is one container labeled with the patient's name and designated Distal esophagus biopsy. The specimen consists of two irregular fragments of light pfeiffer soft tissue that in aggregate measure 0.8 x 0.3 x 0.2 cm. The specimen is totally submitted in one cassette. D. Received in fixative is one container labeled with the patient's name and designated Terminal ileum biopsy. The specimen consists of two irregular fragments of light pfeiffer soft tissue that in aggregate measure 0.9 x 0.3 x 0.2 cm. The specimen is totally submitted in one cassette. E. Received in fixative is one container labeled with the patient's name and designated Random colon biopsy. The specimen consists of multiple irregular fragments of light pfeiffer soft tissue that in aggregate measure 1.3 x 0.3 x 0.2 cm. The specimen is totally submitted in one cassette. VIVIENAnitha 09/24/2024 TC:3 [facility]:[id number]
--- NOTE | 2024-09-23 13:47 | PCM.PRE.AN2 ---
ASA Classification* ASA Classification ASA Classification: 2 Assessment & Plan Anesthesia* Anesthesia Assessment Anesthesia Assessment: Discussed sedation and/or anesthesia options, risks, benefits, and alternatives with patient/parents/legal guardian/POA. Questions invited. The patient/parents/legal guardian/POA seems to understand and agrees to proceed with anesthesia plan. Reviewed the physical assessment, medical history, allergy history and patient home medications list prior to surgery/procedure/anesthetic and documented any changes. Performed airway and anesthesia risk assessments. Anesthesia Type Anesthesia Type: MAC History Source History Obtained from:: Patient and Chart Anesthesia Focused Assessment* Temperature: 97.6 F Pulse Rate: 77 Blood Pressure: 162/91 Respiratory Rate: 18 Pulse Ox: 96 Oxygen Delivery Method: Room Air Airway Assessment Mouth opens: >3 cm Mallampati Score: IV Teeth Condition: Caps/Crowns (Patient has a couple crowns. They are tight.) and Chipped/Broken (Upper incisors are bonded) Neck Range of motion (ROM): Limited ROM Focused Labs Anesthesia Preop lab: CBC WBC 8.2 K/mm3 (4.4-11.0) 07/24/24 10:13 RBC 4.35 M/mm3 (4.2-5.4) 07/24/24 10:13 Hgb 13.6 g/dL (12.0-15.0) 07/24/24 10:13 Hct 40.1 % (37-47) 07/24/24 10:13 Plt Count 203 K/mm3 (150-450) 07/24/24 10:13 CHEMISTRY Potassium 3.8 mmol/L (3.5-5.1) 05/28/24 09:28 Sodium 142 mmol/L (136-145) 05/28/24 09:28 Magnesium 2.3 mg/dL (1.6-2.6) 05/17/23 08:09 BUN 19 mg/dL (7-18) H 05/28/24 09:28 Creatinine 0.91 mg/dL (0.55-1.02) 05/28/24 09:28 Glucose 107 mg/dL (74-106) H 05/28/24 09:28 POC Glucose 175 mg/dL (74-106) H 06/18/23 08:16 TSH 1.95 uIU/mL (0.358-3.74) 01/09/23 15:05 COAG PT 13.0 SECONDS (11.7-14.9) 05/28/24 09:28 Pre-Assessment Diagnosis/Proposed Procedure Planned Operative Procedure(s): EGD, CSCOPE Anesthesia History 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 When Was Last Pacemaker Check QUESTION #4 FULL TEXT: You/Your Family Experience fever (hyperthermia) with Anesthesia Last Oral Intake Last Oral intake: Last Oral Intake NPO since 08:00 09/23/24 13:31 Meds taken in AM with sips of No 09/23/24 13:31 water? Meds patient instructed to take am of surgery Any additional information?: Yes NPO since: 12:00 (Patient finished prep at 10 AM. And fluids till 12 pm) PONV PONV - project manager interior design: PONV - project manager interior design Female Yes 09/18/24 15:23 HX of Motion Sickness No 09/18/24 15:23 HX of N/V After Surgery Yes 09/18/24 15:23 Non-Smoker No 09/18/24 15:23 Duration of Surgery greater No 09/18/24 15:23 than 60 minutes Number of Risk Factors 2 09/18/24 15:23 PONV Score Moderate Risk 09/18/24 15:23 Height & Weight Height & Weight: Anesthesia: Height & Weight Height 5 ft 8 in 09/23/24 13:31 Weight: 87.3 kg 09/23/24 13:31 Body Mass Index (BMI) 29.2 09/23/24 13:31 Respiratory Assessment Respiratory Assessment - project manager interior design: Respiratory Tract Infection Hx - project manager interior design Hx Respiratory Tract Infection Yes: CURRENTLY HAS SINUS 09/18/24 15:23 INFECTION ON ANTIBIOTIC 09/18 Any additional information?: Yes Hx Respiratory Tract Infection: Yes (Patient on antibiotics for sinus infection. Last dose will be today) STOP Sleep Apnea STOP Sleep Apnea - project manager interior design: STOP Sleep Apnea - project manager interior design Hx Hypertension Yes: CONTROLLED WITH MED, 09/18/24 15:23 PRN MEDS Hx Sleep Apnea Yes 09/18/24 15:23 CPAP Yes 09/18/24 15:23 BIPAP No 09/18/24 15:23 Do you snore loudly (louder than talking or can be heard Do you often feel tired/ fatigued/ sleepy during daytime? Has anyone observed you stop breathing during sleep? STOP Results Positive 09/18/24 15:23 QUESTION #5 FULL TEXT : Do you snore loudly (louder than talking or can be heard through closed doors)? 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 Specify any problems Hx of Preganancy in last 3 N/A 09/18/24 15:23 Months Nurse Filling Out Transfusion NBUCHER 09/18/24 15:23 & Questions: Date: 09/18/24 09/18/24 15:23 Time: 15:26 09/18/24 15:23 Patient unable to answer at this time (ie. confused, unrespo /Reproduction History /Reproductive History - project manager interior design: /Reproductive Hx- project manager interior design Hx Now Gestational Age (in weeks): EDC: Hx Hx Para Hx Section SAB No 06/05/23 15:06 PFSH Medical History Cancer DVT (deep venous thrombosis) Migraine headache Former smoker Shortness of breath on exertion Rheumatoid arthritis Wears glasses Post-menopausal Depression Alcohol use Arthritis High cholesterol Easy bruising Excessive bleeding Neck pain Restless legs History of IBS History of diverticulitis Heartburn Gastric reflux Non-smoker CPAP (continuous positive airway pressure) dependence On home oxygen therapy Leg cramps Fibromyalgia History of stress test Cardiology follow-up encounter Hx of hydrocephalus History of tennis elbow Nonrheumatic aortic (valve) insufficiency Acute respiratory failure with hypoxia COVID-19 Valvular heart disease Non-rheumatic tricuspid valve insufficiency Essential hypertension Tricuspid insufficiency Thoracic aneurysm without mention of rupture Hyperlipidemia Abnormal electrocardiogram Nonrheumatic mitral valve disorder, unspecified Nonrheumatic aortic valve disorder, unspecified Abnormal echocardiogram Ascending aortic aneurysm Anxiety Diverticulitis Home Medications ?Medication ?Instructions ?Recorded ?Last Taken ?Type multivitamin with folic acid 400 1 tab PO DAILY 06/17/17 05/27/24 History mcg tablet albuterol sulfate 90 mcg/actuation 1 inh inhalation Q6H PRN shortness 05/31/21 Unknown Rx aerosol inhaler of breath or wheezing #8.5 grams trazodone 100 mg tablet 100 mg PO QHS 10/24/21 05/27/24 History cholecalciferol (vitamin D3) 125 10,000 unit PO DAILY 01/25/22 05/27/24 History mcg (5,000 unit) tablet azelastine 137 mcg (0.1 %) nasal 2 spray intranasal BID PRN 08/07/22 Unknown History spray ALLERGIES clonazepam 0.5 mg tablet (Klonopin) 0.5 mg PO QHS #30 tabs 03/18/24 05/27/24 Rx fluoxetine 40 mg capsule 40 mg PO DAILY 03/31/24 Unknown History celecoxib 200 mg capsule 200 mg PO DAILY 05/28/24 Unknown History budesonide-formoterol HFA 160 2 puff inhalation BID 06/17/24 Unknown History mcg-4.5 mcg/actuation aerosol inhaler (Symbicort) folic acid 1 mg tablet 1 mg PO QDAY 06/17/24 Unknown History hydrochlorothiazide 25 mg tablet 25 mg PO QDAY PRN HTN 06/17/24 Unknown History methotrexate sodium 2.5 mg tablet 2.5 mg PO REYES 06/17/24 Unknown History metoprolol succinate 100 mg 100 mg PO QHS PRN Elevated blood 06/17/24 Unknown Rx tablet,extended release 24 hr pressure #90 tabs Allergy/AdvReac Type Severity Reaction Status Date / Time oxycodone Allergy Swelling Verified 09/23/24 13:29 hydromorphone (From Dilaudid) AdvReac Other Verified 09/23/24 13:29 nabumetone (From Relafen) AdvReac Nausea Verified 09/23/24 13:29 Sulfa (Sulfonamide AdvReac Nausea Verified 09/23/24 13:29 Antibiotics) tramadol HCl (From Ultram) AdvReac Nausea Verified 09/23/24 13:29 Family History Father CAD (coronary artery disease) Mother aneursym Surgical History History of colonoscopy History of esophagogastroduodenoscopy (EGD) History of hip replacement Hx of shoulder surgery Hx of appendectomy Hx of tubal ligation Hx of rotator cuff surgery History of hernia repair History of colon surgery (~10/2017) Social History Smoking Status: Former smoker alcohol intake: never substance use type: does not use caffeine: Yes Type: tea Number of servings: 1 what type of physical activity do you participate in: walking frequency: daily duration: < 15 minutes/day seatbelt use: always do you feel safe at home: Yes Review of Systems (Anesthesia) ROS Narrative System reviewed and no additional complaints, except as documented.
--- NOTE | 2024-09-23 13:57 | PCM.HP.STD ---
HPI - General General Date of Admission: 09/23/24 Date of Service: 09/23/24 Chief Complaint: Diarrhea and abdominal pain HPI Narrative BEAN BURCH, is a 64 F who presents*[facility] ED 05.28.24 after two episodes of filling the bowel with bright red blood w/ bm. Pt has been doing better since then with no further episodes of bleeding. In 2018, pt underwent colon resection for acute diverticulitis. Since then she has had issues w/ diarrhea. She is having loose stool around 4x per day that is urgent. Over the past month she has been on a diet and has lost about 20lbs. She is fine with having diarrhea as she feels it helping with weight loss. She has heartburn on rare occasion and will take TUMs if needed. Colonoscopy and EGD in 2018 CT abdomen/pelvis 05.28.24; Scattered sigmoid diverticulosis. There is evidence of a surgical anastomosis at the colorectal junction. Stable right renal cyst. Fatty infiltration of the liver. She comes in today for EGD and colonoscopy to evaluate her upper and lower GI tract because of worsening abdominal pain and persistent diarrhea. CBC W/Diff, Automated Today K92.1 - Melena [facility] Medical History Cancer DVT (deep venous thrombosis) Migraine headache Former smoker Shortness of breath on exertion Rheumatoid arthritis Wears glasses Post-menopausal Depression Alcohol use Arthritis High cholesterol Easy bruising Excessive bleeding Neck pain Restless legs History of IBS History of diverticulitis Heartburn Gastric reflux Non-smoker CPAP (continuous positive airway pressure) dependence On home oxygen therapy Leg cramps Fibromyalgia History of stress test Cardiology follow-up encounter Hx of hydrocephalus History of tennis elbow Nonrheumatic aortic (valve) insufficiency Acute respiratory failure with hypoxia COVID-19 Valvular heart disease Non-rheumatic tricuspid valve insufficiency Essential hypertension Tricuspid insufficiency Thoracic aneurysm without mention of rupture Hyperlipidemia Abnormal electrocardiogram Nonrheumatic mitral valve disorder, unspecified Nonrheumatic aortic valve disorder, unspecified Abnormal echocardiogram Ascending aortic aneurysm Anxiety Diverticulitis Home Medications ?Medication ?Instructions ?Recorded ?Last Taken ?Type multivitamin with folic acid 400 1 tab PO DAILY 06/17/17 05/27/24 History mcg tablet albuterol sulfate 90 mcg/actuation 1 inh inhalation Q6H PRN shortness 05/31/21 Unknown Rx aerosol inhaler of breath or wheezing #8.5 grams trazodone 100 mg tablet 100 mg PO QHS 10/24/21 05/27/24 History cholecalciferol (vitamin D3) 125 10,000 unit PO DAILY 01/25/22 05/27/24 History mcg (5,000 unit) tablet azelastine 137 mcg (0.1 %) nasal 2 spray intranasal BID PRN 08/07/22 Unknown History spray ALLERGIES clonazepam 0.5 mg tablet (Klonopin) 0.5 mg PO QHS #30 tabs 03/18/24 05/27/24 Rx fluoxetine 40 mg capsule 40 mg PO DAILY 03/31/24 Unknown History celecoxib 200 mg capsule 200 mg PO DAILY 05/28/24 Unknown History budesonide-formoterol HFA 160 2 puff inhalation BID 06/17/24 Unknown History mcg-4.5 mcg/actuation aerosol inhaler (Symbicort) folic acid 1 mg tablet 1 mg PO QDAY 06/17/24 Unknown History hydrochlorothiazide 25 mg tablet 25 mg PO QDAY PRN HTN 06/17/24 Unknown History methotrexate sodium 2.5 mg tablet 2.5 mg PO REYES 06/17/24 Unknown History metoprolol succinate 100 mg 100 mg PO QHS PRN Elevated blood 06/17/24 Unknown Rx tablet,extended release 24 hr pressure #90 tabs Allergy/AdvReac Type Severity Reaction Status Date / Time oxycodone Allergy Swelling Verified 09/23/24 13:29 hydromorphone (From Dilaudid) AdvReac Other Verified 09/23/24 13:29 nabumetone (From Relafen) AdvReac Nausea Verified 09/23/24 13:29 Sulfa (Sulfonamide AdvReac Nausea Verified 09/23/24 13:29 Antibiotics) tramadol HCl (From Ultram) AdvReac Nausea Verified 09/23/24 13:29 Family History Father CAD (coronary artery disease) Mother aneursym Surgical History History of colonoscopy History of esophagogastroduodenoscopy (EGD) History of hip replacement Hx of shoulder surgery Hx of appendectomy Hx of tubal ligation Hx of rotator cuff surgery History of hernia repair History of colon surgery (~10/2017) Social History Smoking Status: Former smoker alcohol intake: never substance use type: does not use caffeine: Yes Type: tea Number of servings: 1 what type of physical activity do you participate in: walking frequency: daily duration: < 15 minutes/day seatbelt use: always do you feel safe at home: Yes ROS Constitutional Constitutional: Denies fatigue, fever(s), poor appetite, weight gain or weight loss Gastrointestinal Gastrointestinal: Denies belching, bloating, change in bowel habits, change in stool character, chewing difficulty, coffee ground emesis, constipation, cramping, diarrhea, dyspepsia, dysphagia, early satiety, excessive flatus, fecal incontinence, heartburn, hematemesis, hematochezia, hemorrhoids, loose stools, melena, nausea, odynophagia, rectal bleeding, tenesmus, vomiting or weight changes Vital Signs Vital Signs Vital Signs: 09/23/24 13:31 09/23/24 13:31 09/23/24 13:52 Temperature 97.6 F L 97.6 F L Temperature Source Temporal Pulse Rate 77 77 Respiratory Rate 18 18 Respiratory Pattern Normal Blood Pressure 162/91 H 162/91 H Blood Pressure Mean 114 Blood Pressure Source Monitor Blood Pressure Position Sitting Blood Pressure Location Right Arm Pulse Ox 96 96 Oxygen Delivery Method Room Air Weight Weight: 192 lb 7.417 oz Body Mass Index (BMI) 29.2 Physical Exam Const alert, oriented x3, no apparent distress and healthy appearing General Appearance: cooperative GI normal to inspection, nondistended, normoactive bowel sounds, soft to palpation, non-tender and non-distended Percussion: normal to percussion Rectal Exam: deferred Assessment & Plan Assessment/Plan (1) Diarrhea: (2) Hematochezia: PLAN: Plan Assessment and Plan Assessment and Plan (1) Hematochezia: Status: Acute (2) Diarrhea: Status: Acute Plan: This is a 64 yo female pt here today for establishment with [facility]. Pt was seen in the ED in May 2024 for bleeding from her rectum. Since then she has had no further issues with bleeding but does have chronic diarrhea following her colon resection in 2018. She will undergo EGD and colonoscopy to asses her GI tract for signs of bleeding. Differential includes gastric ulcer from NSAID use, diverticular bleeding or hemorrhoidal bleeding. I offered medication to help with diarrhea but she declined. SHe is agreeable to this plan. -EGD -Colonoscopy -Consider colestipol for diarrhea Orders: Orders CBC W/Diff, Automated Today K92.1 - Melena
--- NOTE | 2024-09-23 14:00 | IMM_PTH ---
PATIENT: BEAN BURCH LOC: EN U#:[id number] AGE/SX: 64/F ROOM: RE09/23/[address]: Dr. Magdi Tam DO : 1960 BED: DIS: 09/23/2024 SPEC #: [id number] RECD: 09/24/24 09:45 STATUS: RAQUEL REQ #: [id number] NATE: 09/23/24 14:[address]: Magdi Tam DEPT: IMMUNOHISTOCHEMISTRY RECD BY: Ba Burt ENTERED: 09/24/24 09:45 SP TYPE: IMMUNO OTHR DR: Dr. Ganga Nunez MD Tissues: A - Gastric mucous membrane C - Esophagus, NOS Procedures: H Pylori (initial) P53 (initial) KI-67 (add) PHYSICIAN & INSTITUTION [place] [id number] SPECIMEN INFORMATION: Tissue Source: A- Gastric antrum, C- Distal esophagus biopsy Clinical Info: Diarrhea, hematochezia Specimen Number: [id number] Thor Stallings CPT code: 32277m7,54149 METHODOLOGY: Deparaffinized sections of prefer/formalin-fixed tissue or PAP/DQ stained slides are incubated with monoclonal/polyclonal antibodies/oligonucleotide probes. Localization is made via biotin free immunoperoxidase method. Appropriate controls are performed and reacted as expected. Results on target cell population are indicated in the following table: RESULTS: ANTIBODY / CLONE RESULT Block A H Pylori (polyclonal) negative Block C P53 (DO-7) negative (null pattern) Ki-67 (30-9) positive, low These tests were developed and their performance characteristics determined by [facility]. They may not have been cleared or approved by the U.S. Food and Drug Administration. The FDA has determined that such clearance or approval is not necessary. The above immunohistochemical/dualISH markers are ordered and reviewed by the Pathologist. INTERPRETATION: A. Gastric antrum, biopsy: Negative for Helicobacter pylori organisms. C. Distal esophagus, biopsy: Negative for dysplasia. 09/26/2024
--- NOTE | 2024-09-23 14:56 | PCM.POST.ANE ---
Anesthesia: Postop Eval I Current Vital Signs Temperature: 97.2 F Pulse Rate: 67 Blood Pressure: 107/58 Respiratory Rate: 16 Pulse Ox: 95 Oxygen Delivery Method: Room Air Assessment Airway patent: Yes Spontaneous unlabored respirations: Yes Mental status: Asleep nausea: No Vomiting: No Anesthesia Complication: No Fluid Hydration Crystalloid volume administer (ml): 60 Total IV fluid infused: 60 Progress Note Anesthesia document: Postop Eval 1 completed: Yes
--- NOTE | 2024-09-23 15:12 | OP.CCLET_ITS ---
09/23/2024 Ganga Nunez MD Re : Upper GI endoscopy procedure for Kristina Macario Dear Dr. Nunez This procedure was performed on Monday, September 23, 2024. My impressions and recommendations are as follows: Impressions : - Z-line irregular, 39 cm from the incisors. Biopsied. - Medium-sized hiatal hernia. - Gastroparesis. - Erythematous duodenopathy. Recommendations : - Discharge patient to home. - Resume previous diet. - Continue present medications. - Await pathology results. -Consider gastric emptying study My findings are described in the full procedure note, which is enclosed. If I can be of further assistance, please feel free to contact me at . Sincerely, Magdi Tam, 09/23/2024 3:12:03 PM This report has been signed electronically.
--- NOTE | 2024-09-23 15:12 | OP.EGD_ITS ---
Patient Name: Kristina Macario Procedure Date: 09/23/2024 2:02 PM Date of : 1960 Age: 64 Procedure: Upper GI endoscopy Indications: Epigastric abdominal pain Providers: Magdi Tam DO Referring MD: Ganga Nunez MD Medicines: Monitored Anesthesia Care Patient Profile: This is a 64 year old female. Patient has symptoms of chronic abdominal cramping, chronic abdominal distention, chronic epigastric abdominal pain, chronic dyspepsia and chronic heartburn. Complications: No immediate complications. Procedure: Pre-Anesthesia Assessment: - Prior to the procedure, a History and Physical was performed, and patient medications and allergies were reviewed. The patient is competent. The risks and benefits of the procedure and the sedation options and risks were discussed with the patient. All questions were answered and informed consent was obtained. Patient identification and proposed procedure were verified by the physician in the pre-procedure area. Mental Status Examination: alert and oriented. Airway Examination: normal oropharyngeal airway and neck mobility. Respiratory Examination: clear to auscultation. CV Examination: normal. Prophylactic Antibiotics: The patient does not require prophylactic antibiotics. Prior Anticoagulants: The patient has taken no anticoagulant or antiplatelet agents except for NSAID medication. ASA Grade Assessment: II - A patient with mild systemic disease. After reviewing the risks and benefits, the patient was deemed in satisfactory condition to undergo the procedure. The anesthesia plan was to use monitored anesthesia care (MAC). Immediately prior to administration of medications, the patient was re-assessed for adequacy to receive sedatives. The heart rate, respiratory rate, oxygen saturations, blood pressure, adequacy of pulmonary ventilation, and response to care were monitored throughout the procedure. The physical status of the patient was re-assessed after the procedure. After obtaining informed consent, the endoscope was passed under direct vision. Throughout the procedure, the patient's blood pressure, pulse, and oxygen saturations were monitored continuously. The Colonoscope was introduced through the mouth, and advanced to the second part of duodenum. The upper GI endoscopy was accomplished without difficulty. The patient tolerated the procedure well. Scope In: 2:29:17 PM Scope Out: 2:32:22 PM Total Procedure Duration Time 0 hours 3 minutes 5 seconds Findings: The Z-line was irregular and was found 39 cm from the incisors. Biopsies were taken with a cold forceps for histology. Verification of patient identification for the specimen was done. Estimated blood loss was minimal. A medium-sized hiatal hernia was present. Suspect gastroparesis due to absence of peristalsis, patient symptoms and retained gastric contents. Patchy mildly erythematous mucosa without active bleeding and with no stigmata of bleeding was found in the duodenal bulb. Impression: - Z-line irregular, 39 cm from the incisors. Biopsied. - Medium-sized hiatal hernia. - Gastroparesis. - Erythematous duodenopathy. Recommendation: - Discharge patient to home. - Resume previous diet. - Continue present medications. - Await pathology results. -Consider gastric emptying study Procedure Code(s): --- Professional --- 26052, Esophagogastroduodenoscopy, flexible, transoral; with biopsy, single or multiple CPT copyright 2021 [employer]. All rights reserved. The codes documented in this report are preliminary and upon engine installer review may be revised to meet current compliance requirements. Magdi Tam DO 09/23/2024 3:12:03 PM This report has been signed electronically. Number of Addenda: 0 Note Initiated On: 09/23/2024 2:02 PM
--- NOTE | 2024-09-23 15:14 | OP.COLON_ITS ---
Patient Name: Kristina Macario Procedure Date: 09/23/2024 2:32 PM Date of : 1960 Age: 64 Procedure: Colonoscopy Indications: Clinically significant diarrhea of unexplained origin Providers: Magdi Tam DO Referring MD: Ganga Nunez MD Medicines: Monitored Anesthesia Care Patient Profile: This is a 64 year old female. Patient has symptoms of chronic abdominal cramping, chronic abdominal distention, chronic epigastric abdominal pain, chronic dyspepsia and chronic heartburn. Last Colonoscopy: several years ago. Complications: No immediate complications. Procedure: Pre-Anesthesia Assessment: - Prior to the procedure, a History and Physical was performed, and patient medications and allergies were reviewed. The patient is competent. The risks and benefits of the procedure and the sedation options and risks were discussed with the patient. All questions were answered and informed consent was obtained. Patient identification and proposed procedure were verified by the physician in the pre-procedure area. Mental Status Examination: alert and oriented. Airway Examination: normal oropharyngeal airway and neck mobility. Respiratory Examination: clear to auscultation. CV Examination: normal. Prophylactic Antibiotics: The patient does not require prophylactic antibiotics. Prior Anticoagulants: The patient has taken no anticoagulant or antiplatelet agents except for NSAID medication. ASA Grade Assessment: II - A patient with mild systemic disease. After reviewing the risks and benefits, the patient was deemed in satisfactory condition to undergo the procedure. The anesthesia plan was to use monitored anesthesia care (MAC). Immediately prior to administration of medications, the patient was re-assessed for adequacy to receive sedatives. The heart rate, respiratory rate, oxygen saturations, blood pressure, adequacy of pulmonary ventilation, and response to care were monitored throughout the procedure. The physical status of the patient was re-assessed after the procedure. After I obtained informed consent, the scope was passed under direct vision. Throughout the procedure, the patient's blood pressure, pulse, and oxygen saturations were monitored continuously. The Colonoscope was introduced through the anus and advanced to the terminal ileum. The colonoscopy was performed without difficulty. The patient tolerated the procedure well. The quality of the bowel preparation was adequate. The terminal ileum, ileocecal valve, appendiceal orifice, and rectum were photographed. Scope In: 2:36:15 PM Scope Withdrawal Time 0 hours 6 minutes 41 seconds Scope Out: 2:44:29 PM Total Procedure Duration Time 0 hours 8 minutes 14 seconds Findings: The perianal and digital rectal examinations were normal. There was evidence of a prior end-to-end colo-colonic anastomosis in the sigmoid colon. This was patent and was characterized by healthy appearing mucosa. An area of mildly congested mucosa was found in the sigmoid colon, in the descending colon, at the splenic flexure, in the transverse colon and in the ascending colon. Biopsies were taken with a cold forceps for histology. Verification of patient identification for the specimen was done. Estimated blood loss was minimal. Localized mild inflammation characterized by congestion (edema) and erythema was found in the terminal ileum. Biopsies were taken with a cold forceps for histology. Verification of patient identification for the specimen was done. Estimated blood loss was minimal. Impression: - Patent end-to-end colo-colonic anastomosis, characterized by healthy appearing mucosa. - Congested mucosa in the sigmoid colon, in the descending colon, at the splenic flexure, in the transverse colon and in the ascending colon. Biopsied. - Mild inflammation was found in the ileum secondary to ileitis. Biopsied. Recommendation: - Discharge patient to home. - Resume previous diet. - Continue present medications. - Await pathology results. - Repeat colonoscopy in 5 years for surveillance. Procedure Code(s): --- Professional --- 24124, Colonoscopy, flexible; with biopsy, single or multiple CPT copyright 2021 [employer] [place] [employer]. All rights reserved. The codes documented in this report are preliminary and upon shared services manager review may be revised to meet current compliance requirements. Magdi Tam DO 09/23/2024 3:14:41 PM This report has been signed electronically. Number of Addenda: 0 Note Initiated On: 09/23/2024 2:32 PM
--- NOTE | 2024-09-23 15:15 | OP.CCLET_ITS ---
09/23/2024 Ganga Nunez MD Re : Colonoscopy procedure for Kristina Mcaario Dear Dr. Nunez This procedure was performed on Monday, September 23, 2024. My impressions and recommendations are as follows: Impressions : - Patent end-to-end colo-colonic anastomosis, characterized by healthy appearing mucosa. - Congested mucosa in the sigmoid colon, in the descending colon, at the splenic flexure, in the transverse colon and in the ascending colon. Biopsied. - Mild inflammation was found in the ileum secondary to ileitis. Biopsied. Recommendations : - Discharge patient to home. - Resume previous diet. - Continue present medications. - Await pathology results. - Repeat colonoscopy in 5 years for surveillance. My findings are described in the full procedure note, which is enclosed. If I can be of further assistance, please feel free to contact me at . Sincerely, Magdi Tam, 09/23/2024 3:14:41 PM This report has been signed electronically.
--- NOTE | 2024-09-23 19:43 | PCM.POSTANE2 ---
Anesthesia Postop Eval I Sum Postop Eval Completion status Anesthesia document: Postop Eval 1 completed: Yes Anesthesia Postop Eval I Summary Anesthesia Postop Eval I Summary: Anesthesia Postop Eval I: Assessment Summary Airway patent Yes 09/23/24 14:57 [email or web address] Spontaneous unlabored Yes 09/23/24 14:57 [email or web address] respirations Mental status Asleep 09/23/24 14:57 [email or web address] nausea No 09/23/24 14:57 [email or web address] Vomiting No 09/23/24 14:57 [email or web address] Anesthesia Postop Eval I: Fluid Summary Crystalloid volume administer 60 09/23/24 14:57 [email or web address] (ml) Colloids volume administered ( ml) Blood Product volume administered (ml) Total IV fluid infused 60 09/23/24 14:57 [email or web address] Anesthesia Postop Eval I: Summary Notes Anesthesia Complication No 09/23/24 14:57 [email or web address] Anesthesia Complication Comment: Post-operative progress note Anesthesia: Postop Eval II Evaluation Mental status: Awake and Calm Pain Level: 0 nausea: No Vomiting: No Complications Anesthesia Complication: No
== END 2024-09-23 15:25 | disposition home or self-care (01) ==
LOC: EN 13:01 → AC 13:02
PROVIDERS: PCP Family Medicine; Referring Provider Family Medicine; Visit Provider Internal Medicine Gastroenterology
PROC: 0DJD8ZZ Inspection of Lower Intestinal Tract, Via Natural or Artificial Opening Endoscopic (ICD-10-PCS; CPT 45378; principal; 2024-09-23 13:55)
DX: K29.70 Gastritis, unspecified, without bleeding (principal); K31.89 Other diseases of stomach and duodenum; K63.89 Other specified diseases of intestine; K44.9 Diaphragmatic hernia without obstruction or gangrene; I10 Essential (primary) hypertension; Z87.891 Personal history of nicotine dependence; Z79.51 Long term (current) use of inhaled steroids; Z79.899 Other long term (current) drug therapy; Z86.718 Personal history of other venous thrombosis and embolism; Z86.16 Personal history of COVID-19
CPT/HCPCS: 43239; 45380; 88305; 88312; 88341; 88342; A4216; J2405

== ENCOUNTER → 2024-10-13 | Outpatient (CLI) | payer OTHER, MEDICARE, SELFPAY ==
[2024-10-13 17:06] LABS: Erythrocyte Sedimentation Rate 20 mm/hr (0-30)
[2024-10-13 17:07] LABS: Absolute Lymphocyte Count 2.14 X10^3/uL (0.83-4.51); Absolute Neutrophil Count 3.6 X10^3/uL (2.0-7.7); Basophil# 0.04 X10^3/uL; Basophil% 0.6 % (0-1); Eosinophil# 0.15 X10^3/uL; Eosinophils% 2.3 % (0-5); Hematocrit 33.9 % (37-47); Hemoglobin 11.7 g/dL (12.0-15.0); Lymphocyte # 2.14 X10^3/ul (0.83-4.51); Lymphocyte % 32.3 % (19-41); Mean Corp Hgb Conc 34.5 g/dL (32-36); Mean Corpuscular Hgb 31.7 pg (27.0-32.0); Mean Corpuscular Volume 91.9 fL (81-99); Mean Platelet Vol. 11.1 fl (6.2-12.0); Monocyte# 0.69 X10^3/uL; Monocyte% 10.4 % (0-10); NRBC Flagged by Analyzer 0 % (0-5); Neutrophil # 3.58 X10^3/uL (2.7-7.7); Neutrophil % 54.1 % (47-70); Platelet Count 237 K/mm3 (150-450); RBC Distribution Width CV 13.1 % (11.6-14.6); RBC Distribution Width SD 43.1 fl (35.1-43.9); Red Blood Count 3.69 M/mm3 (4.2-5.4); White Blood Count 6.6 K/mm3 (4.4-11.0)
[2024-10-13 17:11] LABS: CRP 4.04 mg/L (0.0-3.0)
== END | disposition home or self-care (01) ==
LOC: LAB 16:25
PROVIDERS: PCP Family Medicine; Referring Provider Specialist; Visit Provider Specialist
DX: Z09 Encounter for follow-up examination after completed treatment for conditions other than malignant neoplasm (principal); M05.70 Rheumatoid arthritis with rheumatoid factor of unspecified site without organ or systems involvement; M16.12 Unilateral primary osteoarthritis, left hip
CPT/HCPCS: 36415; 85025; 85652; 86140

== ENCOUNTER → 2024-11-22 | Outpatient (CLI) | payer OTHER, MEDICARE, SELFPAY ==
--- NOTE | 2024-11-22 08:06 | MRI_ITS ---
PROCEDURE: SPINE LUMBAR (ROUTINE) 11/22/2024 REASON FOR EXAM: 64-year-old female, back pain, radiculopathy, left hip pain. TECHNIQUE: Multiplaner MRI of the lumbar spine performed without contrast. Multiple pulse sequences were obtained. COMPARISON: L-spine radiographs 10/25/2024. FINDINGS: Vertebrae: The vertebral body heights are maintained. No acute osseous fracture. The bone marrow is unremarkable. Alignment: Normal lumbar alignment. Conus Medullaris: Normal in signal, terminating at the L1 vertebral body. L1-2: Mild disk bulge resulting in mild central canal narrowing. No neural foraminal stenosis. L2-3: Mild disc bulging resulting in moderate central canal narrowing. No neural foraminal stenosis. L3-4: Unremarkable L4-5: Mild disk bulge. L5-S1: Unremarkable Sacrum: The visualized SI joints are unremarkable. Right upper pole renal cyst. MRI/Spine Lumbar (Routine) IMPRESSION: Mild degenerative changes resulting in up to moderate central canal narrowing a t L2-3. No neural foraminal stenosis. Reading Location: [id number]
== END | disposition home or self-care (01) ==
LOC: MRI 07:54
PROVIDERS: PCP Family Medicine; Referring Provider Student in an Organized Health Care Education/Training Program; Visit Provider Student in an Organized Health Care Education/Training Program
DX: M54.16 Radiculopathy, lumbar region (principal); M51.369 Other intervertebral disc degeneration, lumbar region without mention of lumbar back pain or lower extremity pain
CPT/HCPCS: 72148

== ENCOUNTER 2025-05-10 17:24 | Emergency (ER) | payer OTHER, MEDICARE, SELFPAY ==
[2025-05-10 17:24] VITALS: BP 144/85; PULSE 89; RESP 16; TEMP 37; O2SAT 96; BMI 31.4
[2025-05-10 18:08] LABS: Hematocrit 38.3 % (37-47); Hemoglobin 13.4 g/dL (12.0-15.0); Immature Granulocytes Count 0.030 X10^3/uL (0.0-0.0); Mean Corp Hgb Conc 35.0 g/dL (32-36); Mean Corpuscular Volume 91.6 fL (81-99); Mean Platelet Vol. 11.3 fl (6.2-12.0); NRBC Flagged by Analyzer 0 % (0-5); Platelet Count 188 K/mm3 (150-450); RBC Distribution Width CV 13.2 % (11.6-14.6); RBC Distribution Width SD 43.9 fl (35.1-43.9); Red Blood Count 4.18 M/mm3 (4.2-5.4); White Blood Count 8.8 K/mm3 (4.4-11.0)
--- NOTE | 2025-05-10 18:22 | ED.VIS.BACK ---
HPI History of Present Illness Chief Complaint: Back Narrative Narrative: Patient is a 65-year-old female presenting to the emergency department for back pain. Patient has a past medical history of back pain and fibromyalgia. Patient states that she has had multiple UTIs over the past year. Was just treated for one about 2 weeks ago. Last dose of antibiotics was a week ago. Reports that the dysuria improved however she started having a foul odor to her urine. Reports [place] and [place] sitting in the bleachers for a long period of time when her left lower back started hurting. Denies any trauma to her back. Denies any numbness or weakness in her legs. States she always has some intermittent mild bladder incontinence but this is not changed from baseline. Denies saddle anesthesia, bowel or bladder retention, fever, headaches. PFSH [facility] Medical History Neuropathy Cancer DVT (deep venous thrombosis) Migraine headache Former smoker Shortness of breath on exertion Rheumatoid arthritis Wears glasses Post-menopausal Depression Alcohol use Arthritis High cholesterol Easy bruising Excessive bleeding Neck pain Restless legs History of IBS History of diverticulitis Heartburn Gastric reflux Non-smoker CPAP (continuous positive airway pressure) dependence On home oxygen therapy Leg cramps Fibromyalgia History of stress test Cardiology follow-up encounter Hx of hydrocephalus History of tennis elbow Nonrheumatic aortic (valve) insufficiency Acute respiratory failure with hypoxia COVID-19 Valvular heart disease Non-rheumatic tricuspid valve insufficiency Essential hypertension Tricuspid insufficiency Thoracic aneurysm without mention of rupture Hyperlipidemia Abnormal electrocardiogram Nonrheumatic mitral valve disorder, unspecified Nonrheumatic aortic valve disorder, unspecified Abnormal echocardiogram Ascending aortic aneurysm Anxiety Diverticulitis Home Medications ?Medication ?Instructions ?Recorded ?Last Taken ?Type multivitamin with folic acid 400 1 tab PO DAILY 06/17/17 05/27/24 History mcg tablet albuterol sulfate 90 mcg/actuation 1 inh inhalation Q6H PRN shortness 05/31/21 Unknown Rx aerosol inhaler of breath or wheezing #8.5 grams trazodone 100 mg tablet 100 mg PO QHS 10/24/21 05/27/24 History cholecalciferol (vitamin D3) 125 10,000 unit PO DAILY 01/25/22 05/27/24 History mcg (5,000 unit) tablet azelastine 137 mcg (0.1 %) nasal 2 spray intranasal BID PRN 08/07/22 Unknown History spray ALLERGIES clonazepam 0.5 mg tablet (Klonopin) 0.5 mg PO QHS #30 tabs 03/18/24 05/27/24 Rx fluoxetine 40 mg capsule 40 mg PO DAILY 03/31/24 Unknown History celecoxib 200 mg capsule 200 mg PO DAILY 05/28/24 Unknown History budesonide-formoterol HFA 160 2 puff inhalation BID 06/17/24 Unknown History mcg-4.5 mcg/actuation aerosol inhaler (Symbicort) folic acid 1 mg tablet 1 mg PO QDAY 06/17/24 Unknown History hydrochlorothiazide 25 mg tablet 25 mg PO QDAY PRN HTN 06/17/24 Unknown History methotrexate sodium 2.5 mg tablet 2.5 mg PO REYES 06/17/24 Unknown History pantoprazole 40 mg tablet,delayed 40 mg PO BID #60 tabs 10/08/24 Unknown Rx release atorvastatin 40 mg tablet mg PO DAILY 10/24/24 Unknown History fluoxetine 20 mg capsule 20 mg PO DAILY 10/24/24 Unknown History metoprolol succinate 100 mg 50 mg PO QHS PRN Elevated blood 10/24/24 Unknown History tablet,extended release 24 hr pressure Allergy/AdvReac Type Severity Reaction Status Date / Time oxycodone Allergy Swelling Verified 05/10/25 17:24 hydromorphone (From Dilaudid) AdvReac Other Verified 05/10/25 17:24 nabumetone (From Relafen) AdvReac Nausea Verified 05/10/25 17:24 Sulfa (Sulfonamide AdvReac Nausea Verified 05/10/25 17:24 Antibiotics) tramadol HCl (From Ultram) AdvReac Nausea Verified 05/10/25 17:24 Family History Father CAD (coronary artery disease) Mother aneursym Surgical History History of colonoscopy History of esophagogastroduodenoscopy (EGD) History of hip replacement Hx of shoulder surgery Hx of appendectomy Hx of tubal ligation Hx of rotator cuff surgery History of hernia repair History of colon surgery (~10/2017) Social History Smoking Status: Former smoker alcohol intake: never substance use type: does not use caffeine: Yes Type: tea Number of servings: 1 what type of physical activity do you participate in: walking frequency: daily duration: < 15 minutes/day seatbelt use: always do you feel safe at home: Yes ROS ROS ED ROS Narrative See HPI EXAM Physical Exam Narrative Exam Narrative: Vital signs: Reviewed General: Alert and oriented x 3. No acute distress HEENT: Head is normocephalic and atraumatic, sinuses nontender, pupils equal round and reactive. Nares are patent. Oropharynx and throat exams normal. Neck: Supple without lymphadenopathy nontender Cardiovascular: Regular rate and rhythm, no murmurs. No rubs or gallops. Normal S1 and S2 Respiratory: Clear to auscultation bilaterally. No wheezes, rales, rhonchi Abdominal: Soft and nontender. Normal bowel sounds. No guarding or rebound. Nonsurgical abdomen. No CVA tenderness on palpation on either flank. Extremities: No midline thoracic or lumbar spinal tenderness palpation. No step-offs or deformities. There is left paraspinal thoracic and lumbar spinal tenderness to palpation. No erythema, warmth, swelling. Normal active range of motion of bilateral lower extremities. 5 out of 5 strength. Sensation intact in bilateral lower extremities. Skin: No rash or redness. Neurological: Cranial nerves II through XII are grossly intact. Normal strength and sensation. Normal cerebellar function The rest of the physical exam is unremarkable Const Vital Signs: 05/10/25 17:24 05/10/25 20:06 Temperature 98.6 F 98.5 F Temperature Source Temporal Pulse Rate 89 64 Respiratory Rate 16 20 H Blood Pressure 144/85 H 142/75 H Blood Pressure Mean 104 97 Pulse Ox 96 94 Oxygen Delivery Method Room Air MDM MDM MDM Narrative Medical decision making narrative: Patient is a 65-year-old female presenting to the emergency department for left-sided back pain. Patient was seen and examined. Vitals are stable. Patient resting bed comfortably no acute distress. Differential includes but is not limited to: Pyelonephritis, nephrolithiasis, musculoskeletal back pain Patient started on fluids and given Toradol for symptomatic control. CBC with no leukocytosis and a normal hemoglobin. BMP with no significant abnormalities. Normal kidney functioning. Urinalysis with 1+ bacteria and 25 leukocyte esterase however no nitrates no WBCs. Do not think this is a urinary tract infection however will send for urine culture with the 1+ bacteria and the foul-smelling urine. CT imaging with no hydronephrosis. The images were limited due to prior hip replacements with artifact. Patient reevaluated and updated on the findings. Explained limitations of the CT however does not appear to be any stone that is causing hydronephrosis and no overt urinary tract infection however will send for culture. It is recommended that she follow-up with her primary care doctor for urine culture results. Recommended NSAIDs at home for her likely musculoskeletal back pain. Recommended returning with any worsening back pain, fevers, abdominal pain, nausea, vomiting, numbness or weakness in her legs. Patient agreeable to plan. Able to ambulate without difficulty. Patient discharged from the Emergency Department. I do not feel that the patient's evaluation reveals any acute reason for admission at this time. I instructed them to either follow-up with their primary care physician or promptly return to the Emergency Department for reevaluation should symptoms worsen or new symptoms develop. I explained what symptoms would indicate the need to return to the emergency department. Shared decision making was used. The patient voiced understanding of the treatment plan and is agreeable with it. Clinical impression Left-sided back pain History & Record Review Discussion w/independent historian: Patient Lab Data Attestation: I reviewed the patient's lab results. Labs: Laboratory Results - last 24 hr 05/10/25 05/10/25 18:00 18:39 WBC 8.8 RBC 4.18 L Hgb 13.4 Hct 38.3 MCV 91.6 MCH 32.1 H MCHC 35.0 RDW Std Deviation 43.9 RDW Coeff of [place] 13.2 Plt Count 188 MPV 11.3 Immature Gran % (Auto) 0.300 Neut % (Auto) 64.5 Lymph % (Auto) 22.6 [place] % (Auto) 10.6 H Eos % (Auto) 1.7 Baso % (Auto) 0.3 Absolute Neuts (auto) 5.7 Absolute Lymphs (auto) 1.98 Nucleated RBC % 0 Sodium 140 Potassium 4.2 Chloride 102 Carbon Dioxide 22.8 Anion Gap 15 BUN 17 Creatinine 1.15 Estim Creat Clear Calc 56.89 Est GFR (MDRD) Non-Af 52 L BUN/Creatinine Ratio 15.1 Glucose 154 H Calcium 9.4 Urine Color Yellow Urine Clarity Sl. Cloudy Urine pH 6.0 Ur Specific [place] 1.020 Urine Protein 15 H Urine Glucose (UA) Normal Urine Ketones Negative Urine Occult Blood 50 H Urine Nitrite Negative Urine Bilirubin Negative Urine Urobilinogen Normal Ur Leukocyte Esterase 25 H Urine RBC 0-5 SEEN Urine WBC 0-5 SEEN Ur Squamous Epith Cells 0 SEEN Urine Bacteria 1+ Urine Mucus 0 SEEN Radiography Diagnostic Testing: Clinical Impression(s) from Imaging Studies Abdomen/Pelvis CT 05/10/25 18:45 IMPRESSION: No hydronephrosis. Genitourinary findings and limitations discussed above. - Nonspecific gastrointestinal findings to be correlated clinically for significance are discussed above. No free air, free fluid or focal mesenteric inflammation. - Other findings and significant study limitations discussed above. Reading Location: [id number] Discharge Plan Triage Chief Complaint: Back ED Provider: Rachele Luke Dx/Rx/DC Orders Clinical Impression: Musculoskeletal back pain Instructions: ED Back Sprain/Strain Prescriptions: No Action trazodone 100 mg tablet 100 mg PO QHS cholecalciferol (vitamin D3) 125 mcg (5,000 unit) tablet 10,000 unit PO DAILY azelastine 137 mcg (0.1 %) aerosol,spray 2 spray intranasal BID PRN (Reason: ALLERGIES) Rx Instructions: administer into each nostril clonazepam [Klonopin] 0.5 mg tablet 0.5 mg PO QHS Qty: 30 0RF Rx Instructions: administer 30 minutes before bedtime fluoxetine 40 mg capsule 40 mg PO DAILY folic acid 1 mg tablet 1 mg PO QDAY methotrexate sodium 2.5 mg tablet 2.5 mg PO REYES budesonide-formoterol [Symbicort] 160-4.5 mcg/actuation HFA aerosol inhaler 2 puff inhalation BID hydrochlorothiazide 25 mg tablet 25 mg PO QDAY PRN (Reason: HTN) atorvastatin 40 mg tablet PO DAILY fluoxetine 20 mg capsule 20 mg PO DAILY metoprolol succinate 100 mg tablet extended release 24 hr 50 mg PO QHS PRN (Reason: Elevated blood pressure) multivitamin with folic acid 1 TABLET tablet 1 tab PO DAILY albuterol sulfate 90 mcg/actuation HFA aerosol inhaler 1 inh inhalation Q6H PRN (Reason: shortness of breath or wheezing) Qty: 8.5 0RF celecoxib 200 mg capsule 200 mg PO DAILY pantoprazole 40 mg tablet,delayed release (DR/EC) 40 mg PO BID Qty: 60 3RF Primary Care Provider: Ganga Nunez Referrals: Ganga Nunez MD [Primary Care Provider] - 2 Days Activity Restrictions/Additional Instructions: As discussed take NSAIDs at home for pain control. You can also use the lidocaine patches as discussed that you can hop picker [id number]. You can also take your muscle relaxers that you already have prescribed to you for the back pain. Follow-up with your primary care doctor to discuss your urine culture results once they come back. Your evaluation in the Emergency Department did not reveal any acute reason for admission. However, I want to emphasize that you may be early in the course of a disease process or illness even if it is not present. For this reason you should follow-up within 24 hours for reevaluation with either your primary care physician or if necessary back here in the Emergency Department. You should return to the Emergency Department immediately if your symptoms worsen or new symptoms develop. Print Language: Moldovan Disposition Disposition: Home, Self Care Discharge Date/Time: 05/10/25 20:10
[2025-05-10] MEDS: 0.9% Normal Saline (1000mL) 1,000 ML 1000 ML IV (18:29)
--- OUTSIDE RECORDS SUMMARY | 2025-05-10 18:32 | XMS RPT_ITS | CCD ---
Author Organization [facility] Care Team Providers Care Business Line Manager Name Role Phone Fe Blair Y Unavailable Fe Blair Y Unavailable Yevgeniy Blairia Y Unavailable Dr. Ganga Nunez Primary Care Provider Dr. Ganga Nunez Referring Provider Roof SURGERY SPECIALIST, SURGERY SPECIALIST-C Too Whitehead Attending Provider Roof SURGERY SPECIALIST, SURGERY SPECIALIST-C Too Whitehead Referring Provider Roof SURGERY SPECIALIST, SURGERY SPECIALIST-C Too Whitehead Other Provider Dr. Ashu Menendez Attending Provider Leah BENDER, Kiki Unavailable Ganga Nunez MD Primary Care Provider Dr. Ganga Nunez Primary Care Provider Dr. Ganga Nunez Referring Provider Roof SURGERY SPECIALIST, SURGERY SPECIALIST-Thor Whitehead Attending Provider Kiki Lynn MD Unavailable Ganga Nunez MD Primary Care Provider Ganga Nunez MD Primary Care Provider Kiki Lynn MD Unavailable [phone] Ganga Nunez MD Primary Care Provider Dr. Ganga Nunez Primary Care Provider Dr. Phillip Cortez Admit Provider Dr. Phillip Cortez Referring Provider Dr. Phillip Cortez Other Provider Dr. Sheila Barr Attending Provider Dr. Sheila Barr Other Provider Dr. Johanne Zelaya Attending Provider Dr. Johanne Zelaya Other Provider Dr. Ganga Nunez Referring Provider Roof SURGERY SPECIALIST, SURGERY SPECIALIST-Thor Whitehead Attending Provider Dr. Ganga Nunez Primary Care Provider Roof SURGERY SPECIALIST, SURGERY SPECIALIST-Thor Whitehead Referring Provider Roof SURGERY SPECIALIST, SURGERY SPECIALIST-Thor Whitehead Other Provider Dr. Ashu Menendez Attending Provider Roof SURGERY SPECIALIST, SURGERY SPECIALIST-Thor Whitehead Attending Provider Dr. Ganga Nunez Referring Provider Kiki Lynn MD Unavailable [phone] Ganga Nunez Primary Care Provider Dr. Ganga Nunez Referring Provider Dr. Chip Bourgeois Attending Provider Dr. Ganga Nunez Primary Care Provider Dr. Ganga Nunez Referring Provider Dr. Chip Bourgeois Attending Provider Dr. Paras Cho Attending Provider [phone] Samson Blunt Referring Provider [phone] Roof SURGERY SPECIALIST, SURGERY SPECIALIST-Thor Whitehead Attending Provider GANGA NUNEZ Referring Unavailable GANGA NUNEZ Primary Care Unavailable Dr. Ganga Nunez Primary Care Provider Dr. Ganga Nunez Referring Provider GANGA NUNEZ MD Primary Care Physician Dr. Guilherme Joshua Attending Provider DIEGO BENDER, DR PHILLIP Stallings Attending Unavailab Jeannette BENDER, GANGA A Primary Care Unavailable DIEGO BENDER, DR PHILLIP Stallings Attending Unavailab Jeannette BENDER, GANGA A Primary Care Unavailable DIEGO BENDER, DR PHILLIP Stallings Attending Unavailab Jeannette BENDER, GANGA A Primary Care Unavailable DIEGO BENDER, DR PHILLIP Stallings Admitting Unavailab alejandra CUELLAR ENVIRONMENTAL PROFESSIONAL-ELEVATOR CONSTRUCTOR HYDRAULIC, MARTHA M Consulting Unavaila jina CORTEZ MD, DR PHILLIP Stallings Referring Unavailab Abernathy, Dr. Schuler Primary Care Provider Dr. Ganga Nunez Referring Provider Roof SURGERY SPECIALIST, SURGERY SPECIALIST-C Too Whitehead Attending Provider Dr. Guilherme Joshua Attending Provider [phone] Guilherme Joshua Referring Provider [phone] Jose Carroll Attending Provider [phone] Phillip Cortez Referring Provider Mayra BENDER, Ganga Stallings Primary Care Provider Mayra BENDER, Ganga Stallings Primary Care Provider Lynnette FARRIS.ELEVATOR CONSTRUCTOR HYDRAULIC, Selam Unavailable Edwina Khoury PA-C Unavailable Mayra, Ganga Referring Unavailable Suzanne Shrestha Attending Unavailable Mayra, Ganga Primary Care Unavailable Mayra, Ganga Referring Unavailable Roof SURGERY SPECIALIST, Too H Attending Unavailable Mayra, Ganga Primary Care Unavailable Josiane, Guilherme Attending Unavailable Mayra, Ganga Primary Care Unavailable Mayra, Ganga Referring Unavailable Lori Willams Attending Unavailable Mayra, Ganga Primary Care Unavailable Mayra, Ganga Referring Unavailable Friend, Magdi Attending Unavailable Friend, Magdi Consulting Unavailable Mayra, Ganga Primary Care Unavailable Mayra, Ganga Referring Unavailable Mayra, Ganga Primary Care Unavailable Josiane, Highwood Attending Unavailable Roof SURGERY SPECIALIST, Too H Referring Unavailable Roof SURGERY SPECIALIST, Too Whitehead Attending Unavailable Mayra, Ganga Primary Care Unavailable Phillip Cortez Attending Unavailable Mayra, Ganga Primary Care Unavailable Phillip Cortez Referring Unavailable Phillip Cortez Attending Unavailable Mayra, Ganga Primary Care Unavailable Diego, Phillip Referring Unavailable Mayra, Ganga Referring Unavailable Magdi Tam Attending Unavailable Mayra, Ganga Primary Care Unavailable David Schwartz Attending Unavailable Mayra, Ganga Primary Care Unavailable Mayra, Ganga Primary Care Unavailable LucyLori Referring Unavailable Lori Willams Attending Unavailable Phillip Cortez Attending Unavailable Diego, Phillip Referring Unavailable Mayra, Ganga Primary Care Unavailable Suzanne Shrestha Referring Unavailable Suzanne Shrestha Attending Unavailable Mayra, Ganga Primary Care Unavailable Atanasov, Suzanne Referring Unavailable AtanasovSuzanne Attending Unavailable Mayra, Ganga Primary Care Unavailable Mayra, Ganga Referring Unavailable Too Anna NP Attending Unavailable Mayra, Ganga Primary Care Unavailable Mayra BENDER, Dr. Schuler Primary Care Provider Suzanne Carrillo Attending Provider Suzanne Carrillo Referring Provider [phone] Dr. Ganga Nunez MD Referring Provider Dr. Magdi Tam DO Attending Provider Yonatan LARSEN, Dr. Fair[place] Other Provider [phone] Diego BENDER, Dr. Yap Attending Provider [phone] Dr. Phillip Cortez MD Referring Provider [phone] Lori Edwards Attending Provider [phone] Guilherme Joshua MD Attending Provider [phone] Lori Edwards Referring Provider [phone] Ganga Nunez MD Primary Care Provider [phone] Lynnette ENVIRONMENTAL PROFESSIONAL.Selam PERRY Unavailable Lynnette FARRIS.Selam PERRY Unavailable Edwina Khoury PA-C Unavailable MAYRA, GANGA A Primary Care Unavailable HERBER REED Attending Unavailable MAYRA, GANGA A Primary Care Unavailable SELF Referring Unavailable BURNETT, REGINALDO Attending Unavailable EDWINA KHOURY Referring Unavailable MAYRA, GANGA A Primary Care Unavailable KIMBERLY GRAJEDA Attending Unavailable MAYRA, GANGA A Primary Care Unavailable HERBER REED Referring Unavailable MAYRA, GANGA A Primary Care Unavailable MAYRA, GANGA A Primary Care Unavailable MAYRA, GANGA A Primary Care Unavailable SARAH LOPEZ Attending Unavailable MAYRA, GANGA A Primary Care Unavailable KNOBLE, SELAM Referring Unavailable MAYRA, GANGA A Primary Care Unavailable MYARA, GANGA A Primary Care Unavailable MAYRA, GANGA A Referring Unavailable MAYRA, GANGA A Primary Care Unavailable LADARIUS MON Attending Unavailable BLAIshan, SHILPI Referring Unavailable MAYRA, GANGA A Primary Care Unavailable EDWINA KHOURY Referring Unavailable MAYRA, GANGA A Primary Care Unavailable SHILPI BORRERO Attending Unavailable BLAIshan, SHILPI Referring Unavailable MAYRA, GANGA A Primary Care Unavailable SAMSON MCMAHON JR Attending Unavaila ble SELF Referring Unavailable MAYRA, GANGA A Primary Care Unavailable MAYRA, GANGA A Primary Care Unavailable DIDI WILLAMS Attending Unavailable KNOBLE, SELAM Referring Unavailable MAYRA, GANGA A Primary Care Unavailable KNOBLESELAM Referring Unavailable MAYRA, GANGA A Primary Care Unavailable KNOBLESELAM Referring Unavailable MAYRA, GANGA A Primary Care Unavailable SCOTT QUARLES Attending Unavailable MAYRA, GANGA A Primary Care Unavailable SCOTT QUARLES Referring Unavailable MAYRA, GANGA A Primary Care Unavailable MAYRA, GANGA A Attending Unavailable SELF Referring Unavailable MAYRA, GANGA A Primary Care Unavailable MAYRA, GANGA A Referring Unavailable MAYRA, GANGA A Primary Care Unavailable SCOTT QUARLES Referring Unavailable MAYRA, GANGA A Primary Care Unavailable SELAM ARGUETA Attending Unavailable SELF Referring Unavailable MAYRA, GANGA A Primary Care Unavailable REGINALDO BURNETT Referring Unavailable MAYRA, GANGA A Primary Care Unavailable SCOTT QUARLES Referring Unavailable MAYRA, GANGA A Primary Care Unavailable BROWNSCOTT Referring Unavailable MAYRA, GANGA A Primary Care Unavailable MAYRA, GANGA A Attending Unavailable MAYRA, GANGA A Primary Care Unavailable EDWINA KHOURY Attending Unavailable MAYRA, GANGA A Primary Care Unavailable MAYRA, GANGA A Referring Unavailable MAYRA, GANGA A Primary Care Unavailable BLAZ, SHILPI Referring Unavailable MAYRA, GANGA A Primary Care Unavailable MAYRA, GANGA A Primary Care Unavailable BRIELLE IRBY Attending Unavailable TYLER WRAY Attending Unavailable MAYRA, GANGA A Primary Care Unavailable LATRICE PARKER Attending Unavailable MAYRA, GANGA A Primary Care Unavailable CHOLO, EDWINA Referring Unavailable MAYRA, GANGA A Primary Care Unavailable CHOLO, EDWINA Referring Unavailable MAYRA, GANGA A Primary Care Unavailable TESSY RICE Attending Unavailable KIMBERLY GRAJEDA Referring Unavailable MAYRA, GANGA A Primary Care Unavailable KIMBERLY GRAJEDA Attending Unavailable KIMBERLY GRAJEDA Referring Unavailable MAYRA, GANGA A Primary Care Unavailable SHILPI BORRERO Attending Unavailable MAYRA, GANGA A Referring Unavailable MAYRA, GANGA A Primary Care Unavailable KIMBERLY GRAJEDA Attending Unavailable MAYRA, GANGA A Referring Unavailable MAYRA, GANGA A Primary Care Unavailable SHILPI BORRERO Referring Unavailable MAYRA, GANGA A Primary Care Unavailable HI WADDELL JR Attending Unavailable MAYRA, GANGA A Primary Care Unavailable HI WADDELL JR Referring Unavailable MAYRA, GANGA A Primary Care Unavailable LATRICE PARKER Attending Unavailable MAYRA, GANGA A Primary Care Unavailable MAYRA, GANGA A Attending Unavailable MAYRA, GANGA A Primary Care Unavailable MAYRA, GANGA A Referring Unavailable MAYRA, GANGA A Primary Care Unavailable MAYRA, GANGA A Referring Unavailable MAYRA, GANGA A Primary Care Unavailable TYLER WRAY Attending Unavailable SELF Referring Unavailable MAYRA, GANGA A Primary Care Unavailable KIMBERLY GRAJEDA Attending Unavailable MAYRA, GANGA A Primary Care Unavailable MAYRA, GANGA A Primary Care Unavailable SELAM ARGUETA Referring Unavailable MAYRA, GANGA A Primary Care Unavailable EDWINA KHOURY Attending Unavailable SELF Referring Unavailable MAYRA, GANGA A Primary Care Unavailable CHOLO, EDWINA Referring Unavailable MAYRA, GANGA A Primary Care Unavailable Allergies Allergy Classification Reported Allergen(s) Allergy Type Date of Onset Reaction(s) Facility (20 sources) nabumetone; Translations: [NABUMETONE] Drug Allergy 07-28-20 05 GI Upset [facility] Work Phone: (20 sources) oxyCODONE; Translations: [oxycodone] Drug Allergy 04-04-20 16 Swelling [facility] Work Phone: (3 sources) Sulfonamides (Antibiotic) drug allergy 04-04-20 16 Nausea [facility] Work Phone: (5 sources) traMADol; Translations: [Tramadol] Drug Allergy 06-22-20 17 Nausea, SWELLING, RASH [facility] Work Phone: [phone] (8 sources) traMADol; Translations: [TRAMADOL] Drug Allergy 04-04-20 16 Nausea, SWELLING, RASH [facility] Work Phone: [phone] (3 sources) RELAFAN drug allergy 06-22-[address] [facility] Work Phone: [phone] (18 sources) HYDROmorphone; Translations: [hydromorphone] Drug Allergy 10-24-19 22 Other, HALLUCINATIONS [facility] Comment on above: hallucinations (20 sources) Sulfonamides (Antibiotic); Translations: [SULFA (SULFONAMIDE ANTIBIOTICS)] Propensity to adverse reactions 02-10-20 03 Rash [facility] Work Phone: (20 sources) traMADol; Translations: [TRAMADOL HCL] Drug Allergy 05-01-20 07 GI Upset [facility] Work Phone: (20 sources) HYDROmorphone; Translations: [HYDROMORPHONE (PF)] Drug Allergy 05-24-20 18 Other: See Comments, Mental Status Change [facility] Work Phone: (20 sources) oxyCODONE; Translations: [OXYCODONE HCL] Drug Allergy 12-30-19 09 Swelling [facility] Work Phone: [phone] (20 sources) Sertraline; Translations: [SERTRALINE] Drug Allergy 08-18-20 22 Other: See Comments [facility] Work Phone: (2 sources) Sulfonamide; Translations: [sulfa drugs] Drug allergy RASH, SWELLING [facility] (1 source) HYDROmorphone Drug Allergy 10-24-19 [facility] Repository Medications Current Medications Medication Drug Class(es) Dates Sig (Normalized) Sig (Original) acetaminophen 1000 mg oral tablet (20 sources) Start: 10-31-2023 take 1 tablet by mouth once daily Tylenol Dose : 1,000 mg = 2 tab(s), Oral, TID, not to exceed 3000 mg/day, 0 Refill(s) Start Date: 10/31/23 Status: Ordered Start: 06-03-2018 End: 04-11-2022 take 650 mg by mouth every six hours as needed acetaminophen (TYLENOL) 650 mg/20.3 mL soln Take 20.3 mL by mouth every 6 hours as needed. 06/03/2018 04/11/2022 Discontinued (Other) Comment on above: Take 20.3 mL by mout h every 6 hours as needed. [id number] 200 actuat albuterol 0.09 mg/actuat metered dose inhaler (20 sources) beta2-Adrenergic Agonist Start: 03-25-2024 End: 06-17-2024 take 2 puff(s) by inhalation every four hours as needed for wheezing albuterol HFA (VENTOLIN HFA) 90 mcg/actuation inhaler Indications: Post-COVID chronic dyspnea Inhale 2 Puffs as instructed every 4 hours as needed for wheezing/shortness of breath. 18 g 3 06/17/2024 Active Start: 06-16-2021 End: 05-05-2022 take 2.5 mg by inhalation every six hours as needed albuterol (PROVENTIL) 2.5 mg /3 mL (0.083 %) nebulizer solution Use 3 mL via nebulizer every 6 hours as needed for wheezing/shortness of breath. Use over 5-15minutes. 300 mL 1 06/16/2021 05/05/2022 Discontinued Start: 05-31-2021 Albuterol Sulf ate 90 mcg/actuation HFA aerosol inhaler Active 1 NMA INHALATION EVERY 6 HOURS as needed for shortness of breath or wheezing 8.May 31, 2021 12:00am Start: 05-31-2021 Albuterol Sulf ate Active 1 INH INHALATION EVERY 6 HOURS 8.May 31, 2021 12:00am Start: 05-19-2021 End: 05-05-2022 take 2 puff(s) by inhalation every four hours as needed for wheezing albuterol HFA (PROVENTIL HFA, VENTOLIN HFA) 90 mcg/actuation inhaler Indications: URI, acute Inhale 2 Puffs as instructed every 4 hours as needed for wheezing/shortness of breath. 8 g 0 05/19/2021 05/05/2022 Discontinued Start: 04-05-2016 PROVENTIL HFA AERS 90 mcg/inh - Q4H as needed ALBUTEROL SULFATE AERS [id number] Jenny Rain RN Start: 04-05-2016 PROVENTIL HFA AERS 90 mcg/inh - Q4H as needed ALBUTEROL SULFATE AERS [id number] Jenny Rain RN Comment on above: Inhale 2 Puffs as in structed every 4 hours as needed for wheezing/shortness of breath. Use 3 mL via nebuliz er every 6 hours as needed for wheezing/shortness of breath. Use over 5-15minutes. amoxicillin 875 mg oral tablet (4 sources) Penicillin-class Antibacterial Start: 10-09-19 End: 10-19-19 take 1 tablet by mouth twice daily amoxicillin (AMOXIL) 875 mg tablet Take 1 tablet by mouth twice daily for 10 days. 20 tablet 0 10/09/2022 10/19/2022 Active Start: 06-01-2022 End: 06-08-2022 take 1 tablet by mouth twice daily Amoxicillin 500 mg tablet Indications: Toothache , URI, acute Take 1 tablet by mouth twice daily for 7 days. 14 tablet 0 06/01/2022 06/08/2022 Active Comment on above: Take 1 tablet by alice th twice daily for 7 days. Take 1 tablet by alice th twice daily for 10 days. amoxicillin 875 mg / clavulanate 125 mg oral tablet (5 sources) Penicillin-class Antibacterial Start: End: take 1 tablet by mouth twice daily amoxicillin-clavul anate potassium (AUGMENTIN) 875-125 mg per tablet Take 1 tablet by mouth two times a day for 5 days. 10 tablet 03/28/2025 04/02/2025 Active Start: 01-03-2022 End: 01-10-2022 take 1 tablet by mouth twice daily amoxicillin-clavulanic acid (AUGMENTIN) 875-125 mg per tablet Indications: Acute sinusitis, recurrence not specified, unspecified location Take 1 tablet by mouth twice daily for 7 days. 14 tablet 0 01/03/2022 01/10/2022 Active Comment on above: Take 1 tablet by mouth twice daily for 7 days. aspirin 81 mg delayed release oral tablet (20 sources) Platelet Aggregation Inhibitor, Nonsteroidal Anti-inflammatory Drug Start: End: take 1 tablet by mouth twice daily aspirin 81 mg oral delayed release tablet Dose : 81 mg = 1 tab(s), Oral, BID, Take 81 mg aspirin twice daily with food for 2 weeks postoperatively for DVT prophylaxis., # 28 tab(s), 0 Refill(s), Pharmacy: [facility], 172.7, cm, 10/30/23 11:33:00 EST, Height, kg, 10/30/23 11:33:00 EST, Dosing Weight Start Date: 10/31/23 Stop Date: 11/14/23 Status: Ordered Start: 06-15-2022 End: 08-07-2022 take 1 tablet by mouth twice daily at mealtime Aspirin 81 mg Tablet,Chewable Discontinued 81 mg PO TWICE DAILY WITH MEALS June 15, 2022 12:00am August 07, 2022 9:45am Take for 2 weeks postoperatively for DVT prophylaxis Start: 12-17-2017 End: 12-19-2017 take 1 tablet by mouth once daily Aspirin 325 mg tablet Discontinued 325 mg PO daily December 17, 2017 12:00am December 19, 2017 9:26am Start: 05-24-2016 take 1 tablet by alice th once daily ASPIRIN 325 MG TABS One tablet by mouth daily ASPIRIN [id number] Jenny Rain RN atorvastatin 40 mg oral tablet (20 sources) HMG-CoA Reductase Inhibitor Start: 04-25-2022 End: 09-30-2024 take 1 tablet by mouth once daily at bedtime for hyperlipidemia atorvastatin (LIPITOR) 40 mg tablet Take 1 tablet by mouth daily at bedtime. For cholesterol. 90 tablet 1 09/30/2024 Active Start: 01-24-2022 End: 08-07-2022 take 1 tablet by mouth at bedtime Atorvastatin 20 mg tablet Discontinued 20 mg PO AT BEDTIME January 25, 2022 12:00am August 07, 2022 9:40am Start: 03-31-2021 End: 01-25-2022 take 1 tablet by mouth at bedtime Atorvastatin 10 mg tablet Discontinued 10 mg PO AT BEDTIME April 18, 2021 12:00am January 25, 2022 11:20am Comment on above: [facility] For cholesterol. azelastine hydrochloride 0.137 mg/actuat metered dose nasal spray (20 sources) Histamine-1 Receptor Antagonist Start: 2 take 1 spray(s) nasal route twice daily Azelastine Active 2 SPRAY INTRANASAL TWICE A DAY August 07, 2022 1:00am administer into each nostril Start: 04-11-2022 take 2 spray(s) nasa l route twice daily as needed azelastine (ASTELIN, ASTEPRO) 0.1% nasal spray Use 2 Sprays in each nostril twice daily as needed. 30 mL 11 04/11/2022 Active Comment on above: Use 2 Sprays in each nostril twice daily as needed. B comp/E/folic acid/mins35/soy (MENOPAUSE SUPPORT PO) (8 sources) take 1 tablet by mouth once daily B comp/E/folic acid/mins35/soy (MENOPAUSE SUPPORT PO) Take 1 tablet by mouth once daily. Active benzonatate 100 mg oral capsule (2 sources) Non-narcotic Antitussive Start: 3 End: 3 take 1 capsule by mouth every eight hours as needed benzonatate (TESSALON PERLE) 100 mg capsule Take 1 capsule by mouth three times a day as needed for cough for up to 7 days. 21 capsule 0 08/10/2023 08/17/2023 Active Comment on above: Take 1 capsule by mo [facility] three times a day as needed for cough for up to 7 days. Biotin (20 sources) Start: 4 biotin Oral, qDay, 0 Refill(s) Start Date: 10/05/23 Status: Ordered Start: 01-25-2022 End: 03-31-2024 take 1 tablet under the tongue once daily Biotin 5,000 mcg tablet, sublingual Discontinued 5000 ug SL DAILY January 25, 2022 12:00am March 31, 2024 10:27am Start: 03-12-2020 End: 04-18-2021 take 1 tablet by mouth once daily Biotin Discontinued 1 TABLET PO DAILY March 12, 2020 9:55pm April 18, 2021 2:40pm Start: 03-12-2020 End: 04-18-2021 Biotin Discontinued 1 {tbl} PO DAILY March 12, 2020 12:00am April 18, 2021 2:40pm Start: 03-12-2020 End: 04-18-2021 take 1 tablet by mouth once daily Biotin Discontinued 1 TABLET PO DAILY March 11, 2020 11:00pm April 18, 2021 1:40pm Start: 03-12-2020 End: 04-18-2021 take 1 tablet by mouth once daily Biotin Discontinued 1 TABLET PO DAILY March 12, 2020 12:00am April 18, 2021 2:40pm take 1 tablet by alice once daily BIOTIN ORAL Take 1 tablet by mouth once daily. Active take 1 tablet by alice once daily BIOTIN ORAL Take 1 tablet by mouth once daily. 0 Active Comment on above: Take 1 tablet by alice once daily. calcium carbonate 1500 mg oral tablet (20 sources) Start: 10-05-2023 calcium (as carbonate) 600 mg oral tablet Dose : 600 mg = 1 tab(s), Oral, qDay, 0 Refill(s) Start Date: 10/05/23 Status: Ordered Start: 08-07-2022 End: 03-31-2024 take 1 tablet by mouth once daily Calcium Carbonate 600 mg calcium (1,500 mg) tablet Discontinued 600 mg PO DAILY August 07, 2022 1:00am March 31, 2024 10:28am Start: 04-05-2016 take 1 tablet by alice once daily CALTRATE 600 1500 (600 Ca) MG TABS One tablet by mouth daily CALCIUM CARBONATE [id number] Jenny Rain RN take 1 tablet by alice once daily calcium carbonate (CALTRATE 600 ORAL) Take 1 tablet by mouth once daily. Active take 1 tablet by alice once daily calcium carbonate (CALTRATE 600 ORAL) Take 1 tablet by mouth once daily. 0 Active Comment on above: Take 1 tablet by alice once daily. cefadroxil 500 mg oral capsule (20 sources) Cephalosporin Antibacterial Start: End: take 1 capsule by mouth twice daily cefADROxil (DURICEF) 500 mg capsule Take 1 capsule by mouth two times a day for 7 days. 14 capsule 04/10/2025 04/17/2025 Active Start: 09-16-2024 End: 12-16-2024 take 1 capsule by mouth twice daily cefADROxil (DURICEF) 500 mg capsule Take 1 capsule by mouth two times a day. 20 capsule 09/16/2024 12/16/2024 Discontinued cholecalciferol 0.125 mg oral tablet (20 sources) Vitamin D Start: 01-25-2022 take 1 tablet by mouth once daily Cholecalciferol (Vitamin D3) 125 mcg (5,000 unit) tablet Active 43562 U PO DAILY January 25, 2022 12:00am Start: 04-05-2016 take 1 tablet by alice th once daily VITAMIN D3 07756 UNIT CAPS One tablet by mouth daily CHOLECALCIFEROL [id number] Jenny Rain RN Start: 04-05-2016 take 1 tablet by alice th once daily VITAMIN D3 5000 UNIT CHEW One tablet by mouth daily CHOLECALCIFEROL [id number] Ashu Menendez MD Start: 04-04-2016 End: 04-06-2016 take 1 tablet by mouth once daily VITAMIN D 2000 UNIT TABS One tablet by mouth daily CHOLECALCIFEROL [id number] Jenny Rain RN Start: 03-24-2016 End: 01-25-2022 take 5 tablets by mouth once daily Cholecalciferol (Vitamin D3) 1,000 UNIT tablet Discontinued 5000 U PO DAILY March 24, 2016 12:00am January 25, 2022 11:20am Start: 03-24-2016 End: 01-25-2022 take 5000 [IU] by mouth once daily Cholecalciferol (Vitamin D3) Discontinued 5000 UNIT PO DAILY March 24, 2016 12:00am January 25, 2022 11:20am Start: 02-03-2013 take 5 capsules by m outh once daily at bedtime Cholecalciferol, Vitamin D3, 2,000 unit cap Take 10,000 Units by mouth daily at bedtime. 0 02/03/2013 Active Start: 02-03-2013 take 1 capsule by mo uth once daily Cholecalciferol, Vitamin D3, 2,000 unit cap Take 2,000 Units by mouth once daily. 0 02/03/2013 Active Comment on above: Take 2,000 Units by mouth once daily. Take 10,000 Units by mouth once daily. clonazePAM 0.5 mg oral tablet (20 sources) Benzodiazepine Start: 03-12-2025 End: 06-08-2025 clonazePAM (KLONOPIN) 0.5 mg tablet Indications: RLS (restless legs syndrome) , Chronic insomnia Take at bedtime for insomnia and RLS. 30 tablet 5 03/12/2025 06/08/2025 Active Start: 12-15-2024 End: 03-13-2025 clonazePAM (KLONOPIN) 0.5 mg tablet Indications: RLS (restless legs syndrome) Take at bedtime for insomnia and RLS. 30 tablet 2 12/15/2024 03/12/2025 Discontinued Start: 09-27-2024 End: 12-26-2024 clonazePAM (KLONOPIN) 0.5 mg tablet Indications: RLS (restless legs syndrome) Take at bedtime for insomnia and RLS. Patient should start on September 27, 2024. 30 tablet 2 09/27/2024 12/13/2024 Discontinued Start: 06-25-2024 End: 09-12-2024 clonazePAM (KLONOPIN) 0.5 mg tablet Indications: RLS (restless legs syndrome) Take at bedtime for insomnia and RLS. Patient should start on June 25, 2024. 30 tablet 2 06/25/2024 09/12/2024 Discontinued Start: 03-18-2024 take 1 tablet by alice th 30 minutes before bedtime Clonazepam (Klonopin) 0.5 mg tablet Active 0.5 mg PO AT BEDTIME March 18, 2024 12:00am administer 30 minutes before bedtime Start: 02-25-2024 End: 06-02-2024 clonazePAM (KLONOPIN) 0.5 mg tablet Indications: Primary insomnia , RLS (restless legs syndrome) Take at bedtime for insomnia and RLS. 30 tablet 2 02/25/2024 06/02/2024 Discontinued CPAP/BIPAP/OTHER (20 sources) Start: 06-02-2024 End: 10-18-2051 CPAP/BIPAP/OTHER APAP 7-15 cmH2O DME [employer] 1 Each 06/02/2024 10/18/2051 Active docusate sodium 50 mg / sennosides, senior care 8.6 mg oral tablet (15 sources) Start: 10-31-2023 End: 11-03-2023 take 1 tablet by mouth twice daily Senokot S 50 mg-8.6 mg oral tablet Dose = 2 tab(s), Oral, BID, Take until first bowel movement, then as needed, X 3 day(s), # 12 tab(s), 0 Refill(s), Pharmacy: [id number], 172.7, cm, 10/30/23 11:33:00 EST, Height, kg, 10/30/23 11:33:00 EST, Dosing Weight Start Date: 10/31/23 Stop Date: 11/03/23 Status: Ordered Start: 06-15-2022 End: 08-07-2022 Sennosides-Docusate Sodium ( Stool Softener-Stimulant Laxat) 8.6-50 mg Tablet Discontinued 2 {tbl} PO TWICE A DAY June 15, 2022 12:00am August 07, 2022 9:46am Take until first bowel movement, then as needed doxycycline hyclate 100 mg oral tablet (9 sources) Tetracycline-class Drug Start: 09-26-2024 End: 10-06-2024 take 1 tablet by mouth twice daily doxycycline (VIBRA-TABS) 100 mg tablet Take 1 tablet by mouth two times a day for 10 days. 20 tablet 09/26/2024 10/06/2024 Active Elderberry Gummies with Vitamin C and Zinc oral tablet, chewable (2 sources) Start: 10-05-2023 take 1 tablet by mouth once daily Elderberry Gummies with Vitamin C and Zinc oral tablet, chewable Dose = 2 tab(s), Chewed, qDay, # 60 tab(s), 0 Refill(s) Start Date: 10/05/23 Status: Ordered famotidine 20 mg oral tablet (1 source) Histamine-2 Receptor Antagonist Start: 10-31-2023 End: 11-14-2023 Pepcid 20 mg oral tablet Dose : 20 mg = 1 tab(s), Oral, qDay, # 14 tab(s), 0 Refill(s), Pharmacy: [id number], 172.7, cm, 10/30/23 11:33:00 EST, Height, kg, 10/30/23 11:33:00 EST, Dosing Weight Start Date: 10/31/23 Stop Date: 11/14/23 Status: Ordered fluconazole 150 mg oral tablet (1 source) Azole Antifungal Start: 12-10-2023 End: 12-11-2023 take 1 tablet by mouth once daily fluconazole (DIFLUCAN) 150 mg tablet Indications: Vaginal discharge Take 1 tablet by mouth once daily for 1 day. 1 tablet 0 12/10/2023 12/11/2023 Active Comment on above: Take 1 tablet by alice once daily for 1 day. FLUoxetine 20 mg oral capsule (20 sources) Serotonin Reuptake Inhibitor Start: 05-26-2024 End: 09-26-2024 take 1 capsule by mouth once daily FLUoxetine (PROZAC) 20 mg capsule Take 1 capsule by mouth once daily. 90 capsule 1 09/26/2024 Active Start: 03-31-2024 take 1 capsule by mo [facility] once daily Fluoxetine 40 mg capsule Active 40 mg PO DAILY March 31, 2024 12:00am Start: 04-24-2023 End: 05-26-2024 take 1 capsule by mouth twice daily FLUoxetine (PROZAC) 40 mg capsule Indications: Chronic anxiety , Situational mixed anxiety and depressive disorder Take 1 capsule by mouth two times a day. 180 capsule 1 03/13/2024 05/26/2024 Discontinued (Course of therapy completed) Start: 11-15-2022 End: 04-24-2023 take 1 capsule by mouth once daily FLUoxetine (PROZAC) 40 mg capsule Indications: Chronic anxiety , Situational mixed anxiety and depressive disorder Take 1 capsule by mouth once daily. 90 capsule 1 11/15/2022 04/24/2023 Discontinued Start: 09-07-2022 End: 03-31-2024 take 2 capsules by mouth twice daily Fluoxetine 20 mg capsule Discontinued 40 mg PO TWICE A DAY September 07, 2022 1:00am March 31, 2024 10:33am Start: 09-07-2022 take 40 mg by mouth twice claire y Fluoxetine Active 40 MG PO TWICE A DAY September 07, 2022 1:00am Start: 08-18-2022 End: 11-15-2022 take 20 mg by mouth once daily Fluoxetine Active 20 MG PO DAILY September 07, 2022 1:00am Comment on above: Take 1 capsule by mo uth once daily. Take 1 capsule by mo ut twice daily. folic acid 1 mg oral tablet (20 sources) Start: 04-04-2023 End: 05-26-2024 take 1 tablet by mouth once daily folic acid 1 mg tablet Take 1 tablet by mouth once daily. 90 tablet 05/26/2024 Active Comment on above: Take 1 tablet by alice th once daily. 120 actuat formoterol fumarate 0.005 mg/actuat / mometasone furoate 0.05 mg/actuat metered dose inhaler (20 sources) Corticosteroid, beta2-Adrenergic Agonist Start: 01-16-2025 take 2 puff(s) by inhalation twice daily DULERA 50-5 mcg/actuation HFA aerosol inhaler Indications: Small airways disease , Post-COVID chronic dyspnea Inhale 2 puffs as instructed two times a day. 13 g 11 01/16/2025 Active Start: 09-17-2024 End: 01-16-2025 take 2 puff(s) by inhalation twice daily mometasone-formoterol (DULERA) 100-5 mcg/actuation inhaler Inhale 2 Puffs as instructed two times a day. 13 g 5 09/17/2024 01/16/2025 Discontinued (Course of therapy completed) 12 hr guaiFENesin 600 mg extended release oral tablet (2 sources) Start: 08-10-2023 End: 08-17-2023 take 1 tablet by mouth twice daily as needed guaiFENesin (MUCINEX) 600 mg 12 hr tablet Take 1 tablet by mouth two times a day as needed for cold/allergy symptoms (cough) for up to 7 days. 14 tablet 0 08/10/2023 08/17/2023 Active Comment on above: Take 1 tablet by alice two times a day as needed for cold/allergy symptoms (cough) for up to 7 days. hydroCHLOROthiazide 25 mg oral tablet (20 sources) Thiazide Diuretic Start: 03-25-2024 End: 09-30-2024 take 1 tablet by mouth once daily as needed hydroCHLOROthiazide 25 mg tablet Indications: Hypertension, essential , Leg swelling Take 1 tablet by mouth once daily. Prn per cardiology 30 tablet 09/30/2024 Active Start: 03-18-2024 End: 03-31-2024 take 1 tablet by mouth once daily Hydrochlorothiazide 12.5 mg tablet Discontinued 12.5 mg PO DAILY March 18, 2024 12:00am March 31, 2024 10:26am Start: 02-14-2024 End: 03-25-2024 take 1 capsule by mouth once daily hydroCHLOROthiazide 12.5 mg capsule Take 1 capsule by mouth once daily. 30 capsule 12 02/14/2024 03/25/2024 Discontinued iv contrast (will be provide d with radiology test) (7 sources) Start: 08-11-2024 End: 08-12-2024 iv contrast (will be provide d with radiology test) Indications: Gross hematuria CT Urogram WO/W Inject, intravenously, once for 1 dose.No IV access, insert saline lock prior to the beginning of sedation, infusion, injection of imaging exam. Discontinue saline lock post exam. If Pt. has a central line or IVAD, may access for administration according to line specific nursing protocol. Once exam is complete flush line and de-access according to line specific nursing protocol in the CT contrast administration guidelines link. 1 Each 08/11/2024 08/12/2024 Active Start: 07-15-2024 End: 07-16-2024 iv contrast (will be provide d with radiology test) Indications: LLQ pain , RLQ abdominal pain , PCB (post coital bleeding) , Infection in abdomen (HCC) CT ABD/PEL -Inject, intravenously, once for 1 dose.No IV access, insert saline lock prior to the beginning of sedation, infusion, injection of imaging exam. Discontinue saline lock post exam. If Pt. has a central line or IVAD, may access for administration according to line specific nursing protocol. Once exam is complete flush line and de-access according to line specific nursing protocol in the CT contrast administration guidelines link. 1 Each 07/15/2024 07/16/2024 Start: 07-15-2024 End: 07-16-2024 iv contrast (will be provide d with radiology test) Indications: LLQ pain , RLQ abdominal pain , PCB (post coital bleeding) , Infection in abdomen (HCC) CT ABD/PEL -Inject, intravenously, once for 1 dose.No IV access, insert saline lock prior to the beginning of sedation, infusion, injection of imaging exam. Discontinue saline lock post exam. If Pt. has a central line or IVAD, may access for administration according to line specific nursing protocol. Once exam is complete flush line and de-access according to line specific nursing protocol in the CT contrast administration guidelines link. 1 Each 07/15/2024 07/16/2024 Active levoFLOXacin 500 mg oral tablet (3 sources) Quinolone Antimicrobial Start: 08-18-2022 End: 08-28-2022 take 1 tablet by mouth once daily levoFLOXacin (LEVAQUIN) 500 mg tablet Take 1 tablet by mouth once daily for 10 days. 10 tablet 0 08/18/2022 08/28/2022 Active Comment on above: Take 1 tablet by alice th once daily for 10 days. LORazepam 1 mg oral tablet (20 sources) Benzodiazepine Start: 10-05-2023 LORazepam 1 mg oral tablet Dose : 1 mg = 1 tab(s), Oral, BID, PRN as needed for anxiety, 0 Refill(s) Start Date: 10/05/23 Status: Ordered Start: 05-31-2021 End: 06-17-2024 take 2 tablets by mouth once daily as needed for anxiety Lorazepam 0.5 mg Tablet Discontinued 1 mg PO DAILY NEEDED as needed for Anxiety May 31, 2021 12:00am June 17, 2024 11:07am Start: 05-31-2021 take 1 mg by mouth o nce daily as needed Lorazepam Active 1 MG PO DAILY NEEDED May 31, 2021 12:00am Start: 05-24-2016 LORAZEPAM 0.5 MG TABS as needed LORAZEPAM [id number] Jenny Rain RN Start: 04-03-2016 End: 05-24-2016 take 1 tablet by mouth once daily ATIVAN 1 MG TABS One half tablet by mouth daily LORAZEPAM [id number] Jenny Rain RN Start: 06-07-2015 End: 05-31-2021 take 0.5 mg by mouth once daily as needed for anxiety Lorazepam 1 MG tablet Discontinued 0.5 mg PO DAILY NEEDED as needed for Anxiety June 07, 2015 12:00am May 31, 2021 4:25pm Start: 06-07-2015 End: 05-31-2021 take 0.5 mg by mouth once daily as needed Lorazepam Discontinued 0.5 MG PO DAILY NEEDED June 07, 2015 12:00am May 31, 2021 4:25pm methotrexate 2.5 mg oral tablet (20 sources) Folate Analog Metabolic Inhibitor Start: 06-17-2024 Methotrexate Sodium 2.5 mg tablet Active 2.5 mg PO REYES June 17, 2024 12:00am Start: 06-01-2024 End: 11-28-2024 take 6 tablets by mouth once methotrexate 2.5 mg table t Take 6 tablets by mouth every Sunday. as directed. 72 tablet 1 06/01/2024 09/30/2024 Discontinued Start: 05-10-2023 End: 03-31-2024 Methotrexate Sodium 2.5 mg t ablet Discontinued 10 mg PO REYES May 10, 2023 12:00am March 31, 2024 10:32am Start: 05-10-2023 Methotrexate S odium Active 10 MG PO REYES May 10, 2023 12:00am Start: 04-08-2023 End: 07-07-2023 take 4 tablets by mouth once methotrexate 2.5 mg table t Take 4 tablets by mouth every Sunday. as directed. 48 tablet 0 04/08/2023 Active Comment on above: Take 4 tablets by mo uth every Sunday. as directed. 24 hr metoprolol succinate 100 mg extended release oral tablet (20 sources) beta-Adrenergic Mariana Start: 10-24-2024 take 2 tablets by mouth every twenty-four hours at bedtime as needed Metoprolol Succinate 100 mg tablet extended release 24 hr Active 50 mg PO AT BEDTIME as needed for Elevated blood pressure October 24, 2024 2:45pm Start: 10-31-2023 End: 10-31-2023 metoprolol succinate 50 mg o ral TABLET extended release Start: 10/31/23 9:00:00 AM EST, Dose = 100 mg, = 2 tab(s), Oral, 0, 10/30/23 12:39:00 EST Start Date: 10/31/23 Stop Date: 10/31/23 Status: Completed Start: 10-05-2023 Metoprolol Suc cinate ER 100 mg oral TABLET extended release Dose : 100 mg = 1 tab(s), Oral, qDay, # 30 tab(s), 0 Refill(s) Start Date: 10/05/23 Status: Ordered Start: 01-09-2023 End: 10-24-2024 take 1 tablet by mouth every twenty-four hours at bedtime as needed Metoprolol Succinate 100 mg tablet extended release 24 hr Discontinued 100 mg PO AT BEDTIME as needed for Elevated blood pressure 90 October 15th, 2024 11:52am October 24, 2024 2:47pm Start: 01-09-2023 End: 11-13-2023 take 100 mg by mouth at bedtime Metoprolol Succinate A ctive 100 MG PO AT BEDTIME November 13, 2023 3:38pm Start: 11-20-2022 End: 01-09-2023 take 2 tablets by mouth once daily Metoprolol Succinate 100 mg tablet extended release 24 hr Discontinued 50 mg PO DAILY November 20, 2022 11:59am January 09, 2023 2:11pm Start: 11-20-2022 End: 01-09-2023 take 50 mg by mouth once daily Metoprolol Succinate Di scontinued 50 MG PO DAILY November 20, 2022 11:59am January 09, 2023 2:11pm Start: 01-25-2022 End: 11-20-2022 take 1 tablet by mouth once daily Metoprolol Succinate 100 mg tablet extended release 24 hr Discontinued 100 mg PO DAILY October 02, 2022 4:16pm November 20, 2022 12:08pm Start: 03-10-2021 End: 01-25-2022 take 2 tablets by mouth once daily Metoprolol Succinate 100 mg tablet extended release 24 hr Discontinued 50 mg PO DAILY March 10, 2021 4:22pm January 25, 2022 11:27am Start: 03-10-2021 End: 01-25-2022 take 50 mg by mouth once daily Metoprolol Succinate Di scontinued 50 MG PO DAILY March 10, 2021 4:22pm January 25, 2022 11:27am Start: 10-13-2020 End: 04-06-2022 take 2 tablets by mouth once daily metoprolol succinate ER (TOPROL XL) 50 mg 24 hr tablet Take 2 tablets by mouth once daily. 04/06/2022 Active Start: 09-05-2019 End: 03-10-2021 take 1 tablet by mouth once daily Metoprolol Succinate 100 mg tablet extended release 24 hr Discontinued 100 mg PO DAILY February 24, 2021 4:38pm March 10, 2021 4:22pm Start: 01-29-2019 End: 09-05-2019 Metoprolol Succinate 50 mg t ablet extended release 24 hr Discontinued 100 mg PO TWICE A DAY January 29, 2019 11:20am September 05, 2019 4:33pm Start: 01-29-2019 End: 09-05-2019 take 100 mg by mouth twice daily Metoprolol Succinate Discontinued 100 MG PO TWICE A DAY January 29, 2019 11:20am September 05, 2019 4:33pm Start: 09-27-2018 End: 01-29-2019 take 1 tablet by mouth twice daily Metoprolol Succinate 50 MG tablet extended release 24 hr Discontinued 50 mg PO TWICE A DAY September 27, 2018 5:24pm January 29, 2019 11:20am Start: 09-20-2018 End: 09-27-2018 take 1 tablet by mouth once daily Metoprolol Succinate 50 mg tablet extended release 24 hr Discontinued 50 mg PO DAILY September 20, 2018 1:00am September 27, 2018 5:24pm Start: 04-20-2016 End: 09-20-2018 take 1 tablet by mouth once daily Metoprolol Succinate 25 MG tablet extended release 24 hr Discontinued 25 mg PO DAILY April 24, 2016 12:00am December 19, 2017 9:31am Comment on above: Take 1 tablet by alice once daily. Take 2 tablets by mo [facility] once daily. Multivitamin preparation (2 sources) Start: 10-05-2023 take 1 tablet by mouth once daily Multivitamin Dose = 1 tab(s), Oral, Daily, 0 Refill(s) Start Date: 10/05/23 Status: Ordered multivitamin tablet (20 sources) take 1 tablet by mouth once daily multivitamin tablet Take 1 tablet by mouth once daily. Active take 1 tablet by mouth once claire y multivitamin tablet Take 1 tablet by mouth once daily. 0 Active Comment on above: Take 1 tablet by alice once daily. Multivitamin With Folic Acid (15 sources) Start: 06-17-2017 take 1 tablet by mouth once daily Multivitamin With Folic Acid Active 1 TABLET PO DAILY June 17, 2017 11:33am Start: 06-17-2017 take 1 tablet by alice th once daily Multivitamin With Folic Acid Active 1 TABLET PO DAILY June 16, 2017 11:00pm Start: 06-17-2017 take 1 tablet by alice th once daily Multivitamin With Folic Acid Active 1 TABLET PO DAILY June 17, 2017 12:00am Multivitamin With Folic Acid 1 TABLET tablet (1 source) Start: 06-17-2017 take 1 tablet by mouth once daily Multivitamin With Folic Acid 1 TABLET tablet Active 1 {tbl} PO DAILY June 17, 2017 12:00am nitrofurantoin, macrocrystals 25 mg / nitrofurantoin, monohydrate 75 mg oral capsule (15 sources) Nitrofuran Antibacterial Start: 04-25-2025 End: 04-30-2025 take 1 capsule by mouth twice daily nitrofurantoin monohydrate and macrocrystal (MACROBID) 100 mg capsule Take 1 capsule by mouth two times a day for 5 days. 10 capsule 04/25/2025 04/30/2025 Active Start: 12-18-2024 End: 12-25-2024 take 1 capsule by mouth twice daily nitrofurantoin monohydrate and macrocrystal (MACROBID) 100 mg capsule Take 1 capsule by mouth two times a day for 7 days. 14 capsule 12/18/2024 12/25/2024 Active Start: 07-08-2024 End: 07-13-2024 take 1 capsule by mouth twice daily nitrofurantoin monohydrate and macrocrystal (MACROBID) 100 mg capsule Indications: Burning with urination Take 1 capsule by mouth two times a day for 5 days. 10 capsule 07/08/2024 07/13/2024 Active Start: 05-13-2024 End: 05-18-2024 take 1 capsule by mouth twice daily nitrofurantoin monohydrate and macrocrystal (MACROBID) 100 mg capsule Indications: Urinary frequency Take 1 capsule by mouth two times a day for 5 days. 10 capsule 05/13/2024 05/18/2024 Active Start: 04-25-2023 End: 2023 take 1 capsule by mouth twice daily at mealtime nitrofurantoin monohydrate and macrocrystal (MACROBID) 100 mg capsule Take 1 capsule by mouth twice daily with meals for 7 days. 14 capsule 0 04/25/2023 2023 Active Start: 08-07-2022 take 100 mg by mouth twice daily Nitrofurantoin Monohyd/M-Cryst Active 100 MG PO TWICE A DAY August 07, 2022 1:00am 5 days Start: 07-24-2022 End: 07-29-2022 take 1 capsule by mouth twice daily nitrofurantoin monohydrate and macrocrystal (MACROBID) 100 mg capsule Indications: Urinary frequency Take 1 capsule by mouth twice daily for 5 days. 10 capsule 0 07/24/2022 07/29/2022 Active Comment on above: Take 1 capsule by mo ut twice daily for 5 days. Take 1 capsule by mo ut twice daily with meals for 7 days. nystatin [id number] unt/ml topical cream (3 sources) Polyene Antifungal Start: 05-13-2024 End: 05-27-2024 nystatin (MYCOSTATIN) cream Indications: Vaginal itching Apply to affected area two times a day for 14 days. 30 g 05/13/2024 05/27/2024 Active omeprazole 40 mg delayed release oral capsule (20 sources) Proton Pump Inhibitor Start: 05-05-2022 End: 11-15-2022 take 40 mg by mouth once daily Omeprazole Active 40 MG PO DAILY May 31, 2022 12:00am Start: 04-18-2021 End: 10-24-2021 take 1 tablet by mouth once daily Omeprazole Magnesium 20 mg tablet,delayed release (DR/EC) Discontinued 20 mg PO DAILY April 18, 2021 12:00am October 24, 2021 9:45am Start: 10-01-2020 End: 11-04-2021 take 1 capsule by mouth once daily omeprazole (PRILOSEC) 20 mg capsule Take 1 capsule by mouth once daily. 90 capsule 3 10/01/2020 11/04/2021 Discontinued Comment on above: Take 1 capsule by [facility] once daily. oxyCODONE hydrochloride 5 mg oral tablet (1 source) Opioid Agonist Start: 10-31-19 End: 11-07-19 take 1-2 tablets by mouth every four hours as needed for pain oxyCODONE 5 mg oral tablet ( IMMEDIATE release ) See Instructions, PRN as needed for pain, 1-2 tab(s) Oral q4h, # 42 tab(s), 0 Refill(s), 11/07/23 7:28:00 AM EST, Pharmacy: [id number], Status post reverse total replacement of left shoulder, 172.7, cm, 10/30/23 11:33:00 EST, Height, 91, kg, 10/30/23 11:33:00 EST, Dosing Weight Start Date: 10/31/23 Stop Date: 11/07/23 Status: Ordered polymyxin b 82535 unt/ml / trimethoprim 1 mg/ml ophthalmic solution (1 source) Dihydrofolate Reductase Inhibitor Antibacterial, Polymyxin-class Antibacterial Start: 12-10-19 End: 12-17-19 take 1 drop(s) into the eye(s) every four hours trimethoprim-polymy rosangela (POLYTRIM) 10,000 unit- 1 mg/mL ophthalmic solution Use 1 Drop in both eyes every 4 hours for 7 days. 10 mL 0 12/10/2023 12/17/2023 Active Comment on above: Use 1 Drop in both e yes every 4 hours for 7 days. predniSONE 10 mg oral tablet (8 sources) Start: 10-09-19 End: 10-18-19 predniSONE (DELTASONE) 10 mg tablet Take 4 tabs daily for 3 days, then 2 tabs daily for 3 days, then 1 tab daily for 3 days with food. 21 tablet 0 10/09/2022 10/18/2022 Active Start: 08-18-2022 End: 10-09-2022 take 3 tablets by mouth once daily predniSONE (DELTASONE) 20 mg tablet 3 tabs a day by mouth for the next 5 days 15 tablet 0 08/18/2022 10/09/2022 Discontinued Comment on above: 3 tabs a day by mout h for the next 5 days Take 4 tabs daily fo r 3 days, then 2 tabs daily for 3 days, then 1 tab daily for 3 days with food. sucralfate 1000 mg oral tablet (20 sources) Aluminum Complex Start: 2 End: 3 take 1 tablet by mouth four times daily Sucralfate (Carafate) 1 gram Tablet Active 1 GM PO 4 TIMES DAILY May 31, 2022 12:00am Comment on above: Take 1 tablet by alice th before meals and at bedtime. traZODone hydrochloride 100 mg oral tablet (20 sources) Serotonin Reuptake Inhibitor Start: 2 End: 5 take 1 tablet by mouth once daily at bedtime traZODone (DESYREL) 100 mg tablet Take 1 tablet by mouth daily at bedtime. 180 tablet 1 09/12/2024 Active Start: 10-24-2021 take 200 mg by mouth at bedtim e Trazodone Active 200 MG PO AT BEDTIME October 24, 2021 1:00am Start: 03-30-2021 End: 04-24-2023 take 2 tablets by mouth once daily at bedtime traZODone (DESYREL) 100 mg tablet Take 2 tablets by mouth daily at bedtime. 180 tablet 1 05/16/2022 04/24/2023 Discontinued (Adjust Sig - Block E-Cancel) Start: 01-29-2019 End: 10-24-2021 take 2 tablets by mouth at bedtime Trazodone 50 mg tablet Discontinued 100 mg PO AT BEDTIME January 29, 2019 11:20am October 24, 2021 9:46am Start: 01-29-2019 End: 10-24-2021 take 100 mg by mouth at bedtime Trazodone Discontinued 100 MG PO AT BEDTIME January 29, 2019 11:20am October 24, 2021 9:46am Start: 03-24-2016 End: 01-29-2019 take 1 tablet by mouth at bedtime Trazodone 50 MG tablet Discontinued 50 mg PO AT BEDTIME March 24, 2016 12:00am January 29, 2019 11:20am Comment on above: Take 2 tablets by mo uth daily at bedtime. Take 1 tablet by alice th daily at bedtime. trospium chloride 20 mg oral tablet (20 sources) Cholinergic Muscarinic Antagonist Start: 08-11-2024 End: 10-27-2025 take 1 tablet by mouth twice daily trospium (SANCTURA) 20 mg tablet Indications: Gross hematuria , Urgency of urination , Urge incontinence Take 1 tablet by mouth two times a day. Patient should start on October 27, 2024. 180 tablet 3 10/27/2024 10/27/2025 Active vit C-Zn gluc-herbal no.325 (ELDERBERRY ZINC VIT C) 90-15 mg lozg (20 sources) Start: 06-13-2021 vit C-Zn gluc-herbal no.325 (ELDERBERRY ZINC VIT C) 90-15 mg lozg Use 1 Lozenge as instructed twice daily. 06/13/2021 Active Start: 06-13-2021 vit C-Zn gluc- herbal no.325 (ELDERBERRY ZINC VIT C) 90-15 mg lozg Use 1 Lozenge as instructed twice daily. 0 06/13/2021 Active Comment on above: Use 1 Lozenge as ins tructed twice daily. Vitamin B Complex (15 sources) Start: 03-24-2016 Vitamin B Complex Active 1 EACH PO DAILY March 24, 2016 9:14am Start: 03-24-2016 Vitamin B Comp francisco Active 1 EACH PO DAILY March 23, 2016 11:00pm Start: 03-24-2016 Vitamin B Comp francisco Active 1 EACH PO DAILY March 24, 2016 12:00am Vitamin D3 250 mcg (10,000 i ntl units) oral capsule (2 sources) Start: 10-05-2023 Vitamin D3 250 mcg (10,000 intl units) oral capsule Dose : 250 mcg = 1 cap(s), Oral, qDay, 0 Refill(s) Start Date: 10/05/23 Status: Ordered Completed/Discontinued Medications Medication Drug Class(es) Dates Sig (Normalized) Sig (Original) acetaminophen 325 mg / HYDROcodone bitartrate 5 mg oral tablet (20 sources) Opioid Agonist Start: 06-15-2022 End: 05-28-2024 take 1-2 tablets by mouth every six hours as needed for pain Hydrocodone-Acetami nophen 5-325 mg Tablet Discontinued 2 {tbl} PO EVERY 6 HOURS NEEDED as needed for Pain Score 6-10 48 June 15, 2022 May 28, 2024 11:10am Take 1 to 2 tablets every 6 hours as needed for pain Start: 06-15-2022 take 1-2 tablets by mouth every six hours as needed for pain Hydrocodone-Acetaminophen Active 2 TABLE T PO EVERY 6 HOURS NEEDED 48 5 June 15, 2022 Take 1 to 2 tablets every 6 hours as needed for pain Start: 01-29-2021 End: 04-18-2021 Hydrocodone-Acetaminophen 1 TABLET tablet Discontinued 1 {tbl} PO EVERY 4 HOURS NEEDED as needed for Pain 15 January 29, 2021 April 18, 2021 2:39pm Start: 01-29-2021 End: 04-18-2021 take 1 tablet by mouth every four hours as needed Hydrocodone-Acetaminophen Discontinued 1 TABLET PO EVERY 4 HOURS NEEDED 15 January 29, 2021 April 18, 2021 2:39pm Start: 03-17-2020 End: 03-20-2020 Hydrocodone-Acetaminophen 1 TABLET tablet Discontinued 1 {tbl} PO EVERY 6 HOURS NEEDED as needed for Pain 10 March 17, 2020 March 19, 2020 12:00am March 20, 2020 12:03am Start: 03-17-2020 End: 03-20-2020 take 1 tablet by mouth every six hours as needed Hydrocodone-Acetaminophen Discontinued 1 TABLET PO EVERY 6 HOURS NEEDED 10 March 17, 2020 March 20, 2020 12:03am Start: 12-17-2017 End: 12-19-2017 Hydrocodone-Acetaminophen 5- 325 mg tablet Discontinued 1 {tbl} PO Q4H as needed December 17, 2017 12:00am December 19, 2017 9:27am Start: 12-17-2017 End: 12-19-2017 take 1 tablet by mouth every four hours Hydrocodone-Acetaminophen Discontinued 1 TABLET PO Q4H December 17, 2017 12:00am December 19, 2017 9:27am Start: 05-24-2016 take 1 tablet by alice th every four hours as needed NORCO 5-325 MG TABS One tablet by mouth Q4H as needed HYDROCODONE-ACETAMINOPHEN [id number] Jenny Rain RN amLODIPine 2.5 mg oral tablet (20 sources) Dihydropyridine Calcium Channel Mariana Start: 09-30-2018 End: 09-05-2019 take 1 tablet by mouth once daily Amlodipine 2.5 mg tablet Discontinued 2.5 mg PO DAILY September 30, 2018 5:25pm September 05, 2019 4:32pm ascorbic acid 250 mg oral tablet (20 sources) Vitamin C Start: 04-05-2016 take 1 tablet by mouth once daily VITAMIN C 250 MG TABS One tablet by mouth daily ASCORBIC ACID [id number] Jenny Rain RN End: 05-05-2022 take 1 tablet by mouth once daily ASCORBIC ACID (VITAMIN C ORAL) Take 1 tablet by mouth once daily. 05/05/2022 Discontinued End: 05-05-2022 take 1 tablet by mouth once daily ASCORBIC ACID (VITAMIN C ORAL) Take 1 tablet by mouth once daily. 0 05/05/2022 Discontinued take 1 tablet by alice th once daily ASCORBIC ACID (VITAMIN C ORAL) Take 1 tablet by mouth once daily. 0 Active Comment on above: Take 1 tablet by alice th once daily. azithromycin 250 mg oral tablet (16 sources) Macrolide Antimicrobial Start: 05-26-20 End: 05-31-20 take 2 tablets by mouth once daily Azithromycin (Zithromax) 250 mg tablet Discontinued 250 mg PO DAILY 4 4 May 26, 2021 12:00am May 31, 2021 4:25pm start on day 2 of therapy B COMPLEX VITAMINS (3 sources) Start: 04-04-20 take 1 tablet by mouth once daily B COMPLEX TABS One tablet by mouth daily B COMPLEX VITAMINS [id number] Jenny Rain RN baclofen 5 mg oral tablet (13 sources) gamma-Aminobutyric Acid-ergic Agonist Start: 09-17-19 End: 03-12-20 baclofen 5 mg tablet 09/17/2024 03/12/2025 Discontinued bisacodyl 5 mg delayed release oral tablet (4 sources) Stimulant Laxative Start: 04-05-20 DULCOLAX 5 MG TBEC As needed BISACODYL [id number] Jenny Rain RN End: 11-04-2021 bisacodyl (DULCOLAX MISC) Discontinued Budesonide / formoterol (20 sources) Corticosteroid, beta2-Adrenergic Agonist Start: 06-17-2024 End: 09-17-2024 take 2 puff(s) by inhalation twice daily budesonide-formoterol (SYMBICORT) 160-4.5 mcg/actuation inhaler Inhale 2 Puffs as instructed two times a day. 1 Each 06/17/2024 09/17/2024 Discontinued (Course of therapy completed) Start: 06-17-2024 take 2 puff(s) by in halation twice daily budesonide-formoterol (SYMBICORT) 160-4.5 mcg/actuation inhaler Inhale 2 Puffs as instructed two times a day. 1 Each 06/17/2024 Active Start: 06-17-2024 Budesonide-For moterol (Symbicort) 160-4.5 mcg/actuation HFA aerosol inhaler Active 2 NMA INHALATION TWICE A DAY June 17, 2024 12:00am celecoxib 200 mg oral capsule (20 sources) Nonsteroidal Anti-inflammatory Drug Start: 05-28-2024 End: 03-28-2025 celecoxib (CELEBREX) 200 mg capsule Take 200 mg by mouth as needed for pain. 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 180 capsule 1 05/26/2024 11/22/2024 Active cephalexin 500 mg oral capsule (6 sources) Cephalosporin Antibacterial Start: 10-28-2024 End: 10-28-2024 cephALEXin 500 mg cap(s) (KEFLEX) Start: 10-28-2024 End: 10-28-2024 take 1 dose by mouth once 500 mg, ORAL, ONCE, 1 dose, On Sun10/28/24 at 1330, Antimicrobial indication: Prophylaxis Start: 01-03-2024 End: 01-10-2024 take 1 capsule by mouth twice daily cephALEXin (KEFLEX) 500 mg capsule Take 1 capsule by mouth two times a day for 7 days. 14 capsule 0 01/03/2024 01/10/2024 Active Start: 02-24-2022 End: 03-03-2022 take 1 capsule by mouth twice daily cephALEXin (KEFLEX) 500 mg capsule Take 1 capsule by mouth twice daily for 7 days. 14 capsule 0 02/24/2022 03/03/2022 Active Comment on above: Take 1 capsule by [facility] twice daily for 7 days. cetirizine hydrochloride 10 mg oral capsule (20 sources) Histamine-1 Receptor Antagonist Start: End: take 1 capsule by mouth once daily Cetirizine (All Day Allergy (Cetirizine)) 10 mg capsule Discontinued 10 mg PO DAILY August 07, 2022 1:00am September 18, 2024 4:22pm Start: 04-04-2016 End: 11-15-2022 take 1 tablet by mouth once daily as needed ZYRTEC ALLERGY 10 MG TABS One tablet by mouth daily as needed CETIRIZINE HCL [id number] Ashu Menendez MD Comment on above: Take 10 mg by mouth once daily. ciclopirox 80 mg/ml topical solution (6 sources) Start: 04-06-20 End: 10-03-19 23 Ciclopirox (LOPROX) 8 % solution Apply to affected area daily at bedtime. For seven days. Then clean off and repeat process. For 10-12 months 6.6 mL 5 04/06/2022 05/05/2022 Discontinued Comment on above: Apply to affected ar ea daily at bedtime. For seven days. Then clean off and repeat process. For 10-12 months ciprofloxacin 500 mg oral tablet (3 sources) Quinolone Antimicrobial Start: 06-22-20 17 take 1 tablet by mouth twice daily CIPRO 500 MG TABS One tablet by mouth twice daily x 10days CIPROFLOXACIN HCL [id number] Ashu Menendez MD clobetasol propionate 0.0005 mg/mg topical ointment (20 sources) Corticosteroid Start: 07-17-20 End: 07-17-20 clobetasol (TEMOVATE) 0.05 % ointment Indications: Vaginal burning Apply 1 application to affected area two times a day. 60 g 2 07/17/2024 09/30/2024 Discontinued collagen + vitamin c (15 sources) Start: 01-26-20 End: 03-31-20 24 take 1000 mg by mouth once daily collagen + vitamin c Discontinued 1000 mg PO DAILY January 25, 2022 12:00am March 31, 2024 10:28am Start: 01-25-2022 take 1000 mg by mouth once bee ly collagen + vitamin c Active 1000 MG PO DAILY January 24, 2022 11:00pm Start: 01-25-2022 take 1000 mg by mouth once bee ly collagen + vitamin c Active 1000 MG PO DAILY January 25, 2022 12:00am CPAP (20 sources) Start: 03-29-2022 End: 03-12-2025 CPAP Indications: HUBER (obstr uctive sleep apnea) , Primary hypertension Lifetime supplies for AutoPAP 6-11 cm H20 including mask, heated tubing, humidity, filters. Fax 30 day download report to [phone] to assess residual ahi. 03/29/2022 03/12/2025 Discontinued Start: 03-29-2022 CPAP Indicatio ns: HUBER (obstructive sleep apnea) , Primary hypertension Lifetime supplies for AutoPAP 6-11 cm H20 including mask, heated tubing, humidity, filters. Fax 30 day download report to [phone] to assess residual ahi. 03/29/2022 Active Start: 03-29-2022 CPAP Indicatio ns: HUBER (obstructive sleep apnea) , Primary hypertension Lifetime supplies for AutoPAP 6-11 cm H20 including mask, heated tubing, humidity, filters. Fax 30 day download report to [phone] to assess residual ahi. 0 03/29/2022 Active Start: 07-24-2019 End: 03-29-2022 CPAP Indications: HUBER (obstr uctive sleep apnea) Adjust pressures to Autopap 6-11 cm H2O, SEND Heat Humidity tubing (SHAYLA), suitable mask ( mask fitting for Airfit N30i), Lifetime supplies, opt [place], G47.33. 1 Device 07/24/2019 03/29/2022 Discontinued Start: 07-24-2019 End: 03-29-2022 CPAP Indications: HUBER (obstr uctive sleep apnea) Adjust pressures to Autopap 6-11 cm H2O, SEND Heat Humidity tubing (SHAYLA), suitable mask ( mask fitting for Airfit N30i), Lifetime supplies, opt [place], G47.33. 1 Device 0 07/24/2019 03/29/2022 Discontinued Start: 07-24-2019 CPAP Indicatio ns: HUBER (obstructive sleep apnea) Adjust pressures to Autopap 6-11 cm H2O, SEND Heat Humidity tubing (SHAYLA), suitable mask ( mask fitting for Airfit N30i), Lifetime supplies, opt [place], G47.33. 1 Device 0 07/24/2019 Active Comment on above: Adjust pressures to Autopap 6-11 cm H2O, SEND Heat Humidity tubing (SHAYLA), suitable mask ( mask fitting for Airfit N30i), Lifetime supplies, opt [place], G47.33. Lifetime supplies fo r AutoPAP 6-11 cm H20 including mask, heated tubing, humidity, filters. Fax 30 day download report to [phone] to assess residual ahi. cyclobenzaprine hydrochloride 10 mg oral tablet (20 sources) Muscle Relaxant Start: 08-21-20 End: 06-17-20 take 1 tablet by mouth three times daily as needed for muscle spasms Cyclobenzaprine 10 mg tablet Discontinued 10 mg PO THREE TIMES A DAY as needed for spasms August 15, 2023 11:06am June 17, 2024 11:06am Start: 01-29-2021 End: 04-18-2021 take 1 tablet by mouth three times daily as needed for muscle spasms Cyclobenzaprine 10 MG tablet Discontinued 10 mg PO THREE TIMES A DAY as needed for Muscle Spasm January 29, 2021 12:00am April 18, 2021 2:39pm Comment on above: Take 1 tablet by alice th three times daily as needed for muscle spasm. Take 1 tablet by alice th three times daily as needed (for fibro pain). dexamethasone 6 mg oral tablet (16 sources) Corticosteroid Start: End: take 1 tablet by mouth once daily Dexamethasone (Decadron) 6 mg tablet Discontinued 6 mg PO DAILY 7 May 26, 2021 12:00am October 24, 2021 9:44am dextromethorphan hydrobromide 3 mg/ml / promethazine hydrochloride 1.25 mg/ml oral solution (16 sources) Phenothiazine, Uncompetitive H-isuabk-D-aspartate Receptor Antagonist, Sigma-1 Agonist Start: End: take 1 mL by mouth every six hours as needed for cough Promethazine-Dm 6.25-15 mg/5 mL syrup Discontinued 5 mL PO EVERY 6 HOURS as needed for cough 118 August 18, 2021 1:00am January 25, 2022 11:22am Start: 08-18-2021 End: 01-25-2022 take 1 mL by mouth every six hours Promethazine-Dm Discontinued 5 ML PO EVERY 6 HOURS August 18, 2021 1:00am January 25, 2022 11:22am diclofenac sodium 75 mg delayed release oral tablet (6 sources) Nonsteroidal Anti-inflammatory Drug Start: 04-04-2016 End: 05-31-2016 take 1 tablet by mouth once daily DICLOFENAC SODIUM 75 MG TBEC One tablet by mouth daily DICLOFENAC SODIUM [id number] Jenny Rain RN diphenhydrAMINE hydrochloride 50 mg oral capsule (3 sources) Histamine-1 Receptor Antagonist Start: 04-06-2016 DIPHENHYDRAMINE HCL 50 MG CAPS as directed for sleep DIPHENHYDRAMINE HCL [id number] Ashu Menendez MD doxylamine succinate 25 mg oral tablet (20 sources) Start: 06-25-2018 End: 01-29-2019 take 1 tablet by mouth at bedtime Doxylamine Succinate 25 MG tablet Discontinued 25 mg PO AT BEDTIME June 25, 2018 12:00am January 29, 2019 11:19am Start: 06-07-2015 End: 12-19-2017 take 1 tablet by mouth at bedtime Methyl Salicylate-Menthol 25 MG tablet Discontinued 25 mg PO AT BEDTIME June 07, 2015 12:00am December 19, 2017 9:27am enteric contrast (will be provided with radiology test) (2 sources) Start: 07-15-2024 End: 07-16-2024 enteric contrast (will be provided with radiology test) Indications: LLQ pain , RLQ abdominal pain , PCB (post coital bleeding) , Infection in abdomen (HCC) For CT ABD/PEL W IVCON Routine order Administer, As Directed One Time Only, via Oral, Rectal, both Oral and Rectal, Enteric Tube, Stoma or Indwelling Catheter, Enteric Contrast as designated per enteric contrast guidelines 1 Each 07/15/2024 07/16/2024 Start: 07-15-2024 End: 07-16-2024 enteric contrast (will be pr ovided with radiology test) Indications: LLQ pain , RLQ abdominal pain , PCB (post coital bleeding) , Infection in abdomen (HCC) For CT ABD/PEL W IVCON Routine order Administer, As Directed One Time Only, via Oral, Rectal, both Oral and Rectal, Enteric Tube, Stoma or Indwelling Catheter, Enteric Contrast as designated per enteric contrast guidelines 1 Each 07/15/2024 07/16/2024 Active estradiol 0.1 mg/ml vaginal cream (6 sources) Estrogen Start: 12-16-2024 End: 03-12-2025 estradiol (ESTRACE) 0.01 % (0.1 mg/gram) vaginal cream Use 1 gram vaginally at bedtime for 2 weeks then 2-3 time/weeks for maintenance. 42.5 g 2 12/16/2024 03/12/2025 Discontinued ferrous sulfate 325 mg oral tablet (19 sources) Start: 12-17-2017 End: 12-19-2017 take 1 tablet by mouth once daily Ferrous Sulfate 325 mg (65 mg iron) tablet Discontinued 325 mg PO daily December 17, 2017 12:00am December 19, 2017 9:26am Start: 05-24-2016 take 1 tablet by alice th once daily FERROUS SULFATE 325 (65 Fe) MG TABS One tablet by mouth daily FERROUS SULFATE [id number] Jenny Rain RN fluticasone propionate 0.05 mg/actuat metered dose nasal spray (20 sources) Corticosteroid Start: 07-13-2023 End: 08-12-2023 take 2 spray(s) by mouth once daily fluticasone (FLONASE) 50 mcg/actuation nasal spray Indications: Sinus congestion Use 2 Sprays in each nostril once daily. Rinse mouth after use. 1 Each 0 07/13/2023 08/12/2023 Active Start: 01-25-2022 End: 05-28-2024 Fluticasone Propionate 50 mc g/actuation spray,suspension Discontinued 2 NMA INTRANASAL DAILY as needed March 31, 2024 10:28am May 28, 2024 11:10am Start: 01-25-2022 Fluticasone Pr opionate Active 2 SPRAY INTRANASAL DAILY January 25, 2022 12:00am Start: 05-09-2021 End: 01-03-2022 take 2 spray(s) by mouth once daily fluticasone (FLONASE) 50 mcg/actuation nasal spray Indications: Eustachian tube dysfunction, bilateral , Viral URI Use 2 Sprays in each nostril once daily. Rinse mouth after use. 1 Each 05/09/2021 01/03/2022 Discontinued Comment on above: Use 2 Sprays in each nostril once daily. Rinse mouth after use. furosemide 40 mg oral tablet (12 sources) Loop Diuretic Start: 2022 End: 2023 Furosemide (Lasix) 40 mg tablet Discontinued 40 mg PO .PRN as needed for edema September 07, 2022 1:00am March 31, 2024 10:31am gabapentin 300 mg oral capsule (6 sources) Anti-epileptic Agent Start: 2015 End: 2015 take 1 tablet by mouth three times daily GABAPENTIN 300 MG CAPS One tablet by mouth three times daily GABAPENTIN [id number] Jenny Griffith PA-C hydroxychloroquine sulfate 200 mg oral tablet (20 sources) Antimalarial, Antirheumatic Agent Start: 2022 End: 2023 take 1 tablet by mouth twice daily Hydroxychloroquine 200 mg tablet Discontinued 200 mg PO TWICE A DAY May 10, 2023 12:00am June 17, 2024 11:06am Comment on above: Take 1 tablet by alice twice daily. hydrOXYzine hydrochloride 10 mg oral tablet (20 sources) Antihistamine Start: 2021 End: 2023 take 1 tablet by mouth three times daily as needed for anxiety Hydroxyzine Hcl 10 mg tablet Discontinued 10 mg PO THREE TIMES A DAY as needed for Anxiety August 07, 2022 9:40am June 17, 2024 11:07am Comment on above: Take 1 tablet by alice three times daily as needed. Take 1 tablet by [facility] three times a day as needed. lidocaine hydrochloride 0.02 mg/mg topical gel (3 sources) Antiarrhythmic, Amide Local Anesthetic Start: 2024 End: 2024 lidocaine urojet 2 % 6 mL topical gel (GLYDO) Start: 10-28-2024 End: 10-28-2024 6 mL, URETHRAL, ONCE (UP TO 30 DAYS AMB), 1 dose, On Sun10/28/24 at 1330, FOR EXTERNAL USE ONLY APPLY TO: 6 ml Start: 09-05-2022 End: 09-05-2022 lidocaine (PF) 10 mg/mL (1 % ) 5 mL injection (XYLOCAINE) 12 hr loratadine 5 mg / pseudoephedrine sulfate 120 mg extended release oral tablet (1 source) alpha-Adrenergic Agonist Start: 05-09-2021 End: 11-04-2021 take 1 tablet by mouth twice daily loratadine-pseudoephedrine ER (CLARITIN-D 12) 5-120 mg per tablet Indications: Eustachian tube dysfunction, bilateral Take 1 tablet by mouth twice daily. 14 tablet 05/09/2021 11/04/2021 Discontinued losartan potassium 100 mg oral tablet (20 sources) Angiotensin 2 Receptor Mariana Start: 10-02-2023 End: 06-17-2024 take 1 tablet by mouth once daily Losartan 100 mg tablet Discontinued 100 mg PO daily March 31, 2024 12:00am June 17, 2024 11:07am Start: 04-24-2023 take 1 tablet by alice th once daily losartan (COZAAR) 100 mg tablet Take 1 tablet by mouth once daily. 90 tablet 1 04/24/2023 Active Start: 08-07-2022 End: 03-31-2024 take 2 tablets by mouth once daily Losartan 50 mg tablet Discontinued 100 mg PO DAILY November 20, 2022 11:11am March 31, 2024 10:32am Start: 08-07-2022 End: 11-20-2022 take 100 mg by mouth once daily Losartan Active 100 MG PO DAILY November 20, 2022 11:11am Start: 03-11-2021 End: 04-24-2023 take 1 tablet by mouth once daily Losartan 50 mg tablet Discontinued 50 mg PO DAILY March 11, 2021 12:00am August 07, 2022 10:23am Comment on above: 50 mg once daily. Take 1 tablet by alice th once daily. Magnesium (19 sources) Start: 04-03-2016 MAGNESIUM CAPS 300mg daily MAGNESIUM CAPS [id number] Jenny Rain RN Start: 03-24-2016 take 300 mg by mouth once daily Magnesium Active 300 MG PO DAILY March 24, 2016 9:14am Start: 03-24-2016 End: 03-31-2024 Magnesium 200 MG tablet Disc ontinued 300 mg PO DAILY March 24, 2016 12:00am March 31, 2024 10:32am Start: 03-24-2016 take 300 mg by mouth once daily Magnesium Active 300 MG PO DAILY March 23, 2016 11:00pm Start: 03-24-2016 take 300 mg by mouth once daily Magnesium Active 300 MG PO DAILY March 24, 2016 12:00am magnesium gluconate 550 mg oral tablet (20 sources) End: 05-05-2022 take 1 tablet by mouth twice daily Magnesium 30 mg tablet Take 30 mg by mouth twice daily. 05/05/2022 Discontinued Comment on above: Take 30 mg by mouth twice daily. melatonin 3 mg oral capsule (20 sources) Start: 03-18-2024 End: 05-28-2024 take 1 capsule by mouth at bedtime as needed for sleep Melatonin 3 mg capsule Discontinued 3 mg PO BEDTIME as needed for sleep March 18, 2024 12:00am May 28, 2024 11:11am Start: 10-01-2023 End: 06-02-2024 melatonin 3 mg tablet Indica tions: Insomnia, unspecified type , Delayed sleep phase syndrome Take 1 tablet at ~8PM nightly (if miss the dose, skip until the next day). 30 tablet 2 10/01/2023 06/02/2024 Discontinued Start: 06-25-2018 End: 01-29-2019 take 1 tablet by mouth at bedtime Melatonin 10 MG tablet Discontinued 10 mg PO AT BEDTIME June 25, 2018 12:00am January 29, 2019 11:20am Comment on above: Take 1 tablet at ~8P M nightly (if miss the dose, skip until the next day). meloxicam 15 mg oral tablet (20 sources) Nonsteroidal Anti-inflammatory Drug Start: 0 End: take 1 tablet by mouth once daily Meloxicam 15 mg tablet Discontinued 15 mg PO DAILY April 18, 2021 12:00am May 28, 2024 11:11am Start: 04-05-2016 End: 05-31-2016 take 1 tablet by mouth once daily MELOXICAM 15 MG TABS One tablet by mouth daily MELOXICAM [id number] Jenny Rain RN Comment on above: Take 1 tablet by alice th once daily. Take with food. menophix (1 source) Start: End: take 2 capsules by mouth once daily in the morning menophix Discontinued 0 PO .COMPLEX March 31, 2024 12:00am June 17, 2024 11:07am 2 capsules QAM orally; methylPREDNISolone (2 sources) Corticosteroid Start: End: methylPREDNISolone (MEDROL, KERWIN,) 4 mg Dose-Pack Indications: Primary osteoarthritis of both shoulders Follow dosing instructions, take with food. 1 Package 0 04/06/2022 04/11/2022 Discontinued (Other) Start: 04-06-2022 End: 04-12-2022 methylPREDNISolone (MEDROL, KERWIN,) 4 mg Dose-Pack Indications: Primary osteoarthritis of both shoulders Follow dosing instructions, take with food. 1 Package 0 04/06/2022 04/12/2022 Active Comment on above: Follow dosing instru ctions, take with food. MULTIPLE VITAMIN (3 sources) Start: 04-06-20 16 take 1 tablet by mouth once daily MULTIVITAMINS TABS One tablet by mouth daily MULTIPLE VITAMIN Ashu Menendez MD multivitamin (MULTIPLE VITAMINS) tablet (20 sources) take 1 tablet by mouth once daily multivitamin (MULTIPLE VITAMINS) tablet Take 1 tablet by mouth once daily. 0 Active Comment on above: Take 1 tablet by alice th once daily. naproxen 500 mg oral tablet (16 sources) Nonsteroidal Anti-inflammatory Drug Start: 01-30-20 End: 04-18-20 21 take 1 tablet by mouth twice daily Naproxen 500 MG tablet Discontinued 500 mg PO TWICE A DAY January 29, 2021 12:00am April 18, 2021 2:39pm omega-3/dha/epa/dpa/f barrington oil (OMEGA-3 2100 ORAL) (20 sources) End: 05-05-20 omega-3/dha/epa/dpa/f barrington oil (OMEGA-3 2100 ORAL) Take by mouth. 05/05/2022 Discontinued End: 05-05-2022 omega-3/dha/epa/dpa/fish oil (OMEGA-3 2100 ORAL) Take by mouth. 0 05/05/2022 Discontinued omega-3/dha/epa/ dpa/fish oil (OMEGA-3 2100 ORAL) Take by mouth. 0 Active Comment on above: Take by mouth. pantoprazole 40 mg delayed release oral tablet (14 sources) Proton Pump Inhibitor Start: End: take 1 tablet by mouth once daily pantoprazole DR (PROTONIX) 40 mg tablet Take 40 mg by mouth once daily. 10/08/2024 03/12/2025 Discontinued Start: 10-08-2024 take 1 tablet by alice th twice daily Pantoprazole 40 mg tablet,delayed release (DR/EC) Active 40 mg PO TWICE A DAY 60 October 08, 2024 1:00am perflutren lipid microsphere s 1.3 mL in NaCl (PF) 0.9% 10 mL injection (DEFINITY) (20 sources) Start: 06-13-2021 End: 04-11-2022 perflutren lipid microsphere s 1.3 mL in NaCl (PF) 0.9% 10 mL injection (DEFINITY) Start: 06-13-2021 End: 09-12-2022 perflutren lipid microsphere s 1.3 mL in NaCl (PF) 0.9% 10 mL injection (DEFINITY) polyethylene glycol 3350 84345 mg powder for oral solution (1 source) Osmotic Laxative End: 11-04-2021 polyethylene glycol 3350 (MIRALAX) 17 gram/dose powder Take by mouth once daily. 11/04/2021 Discontinued polyethylene glycol 3350 392110 mg / potassium chloride 2970 mg / sodium bicarbonate 6740 mg / sodium chloride 5860 mg / sodium sulfate 63765 mg powder for oral solution (16 sources) Osmotic Laxative Start: 12-15-2021 End: 03-08-2022 peg 3350-Electrolytes (GOLYTELY) 236-22.74-6.74 -5.86 gram suspension Indications: Diarrhea of presumed infectious origin Refer to printed prep instructions from your provider. 4000 mL 0 12/15/2021 03/08/2022 Discontinued Comment on above: Refer to printed pre p instructions from your provider. sertraline 100 mg oral tablet (20 sources) Serotonin Reuptake Inhibitor Start: 10-24-2021 End: 03-31-2024 take 1 tablet by mouth once daily Sertraline 100 mg tablet Discontinued 100 mg PO DAILY October 24, 2021 1:00am March 31, 2024 10:32am Comment on above: Take 1 tablet by [facility] once daily. 1000 ml sodium chloride 9 mg/ml injection (20 sources) Start: 08-11-2024 End: 08-11-2024 0.9 % sodium chloride (NACL 0.9%) infusion Indications: Gross hematuria Administer at rate defined per CT contrast administration specifications. To be provided with radiology test. 150 mL 08/11/2024 08/11/2024 Start: 06-13-2021 End: 09-12-2022 sodium chloride 0.9 % (flush ) 10 mL (BD POSIFLUSH) tiZANidine 4 mg oral tablet (20 sources) Central alpha-2 Adrenergic Agonist Start: 11-26-2017 End: 05-05-2022 take 1 tablet by mouth every eight hours as needed tiZANidine (ZANAFLEX) 4 mg tablet Indications: Post-op pain , Chronic shoulder pain, unspecified laterality Take 1 tablet by mouth every 8 hours as needed. 30 tablet 1 11/26/2017 05/05/2022 Discontinued Start: 04-05-2016 take 1 tablet by alice th every eight hours as needed TIZANIDINE HCL 4 MG TABS One tablet by mouth Q8H as needed TIZANIDINE HCL [id number] Jenny Rain RN Comment on above: Take 1 tablet by alice th every 8 hours as needed. 1 ml triamcinolone acetonide 40 mg/ml injection (1 source) Corticosteroid Start: 09-05-2022 End: 09-05-2022 triamcinolone acetonide 80 mg injection (KeNALog 40) Start: 09-05-2022 End: 09-05-2022 triamcinolone acetonide 80 m g injection (KeNALog 40) Vit C-Zn Gluc-Herbal No.325 (Elderberry Zinc Vit C) 90-15 mg lozenge (14 sources) Start: 08-07-2022 End: 03-31-2024 Vit C-Zn Gluc-Herbal No.325 (Elderberry Zinc Vit C) 90-15 mg lozenge Discontinued 1 NMA MUCOUS MEM TWICE A DAY August 07, 2022 1:00am March 31, 2024 10:32am Start: 08-07-2022 Vit C-Zn Gluc- Herbal No.325 (Elderberry Zinc Vit C) 90-15 mg lozenge Active 1 LOZENGE MUCOUS MEM TWICE A DAY August 07, 2022 12:00am Start: 08-07-2022 Vit C-Zn Gluc- Herbal No.325 (Elderberry Zinc Vit C) 90-15 mg lozenge Active 1 LOZENGE MUCOUS MEM TWICE A DAY August 07, 2022 1:00am Start: 08-07-2022 Vit C-Zn Gluc- Herbal No.325 (Elderberry Zinc Vit C) 90-15 mg lozenge Active LOZENGE MUCOUS MEM TWICE A DAY August 07, 2022 1:00am Start: 08-07-2022 Vit C-Zn Gluc- Herbal No.325 (Elderberry Zinc Vit C) 90-15 mg lozenge Active LOZENGE MUCOUS MEM TWICE A DAY August 07, 2022 12:00am Vitamin B Complex 1 EACH capsule (1 source) Start: 03-24-2016 End: 06-17-2024 Vitamin B Complex 1 EACH cap siena Discontinued 1 NMA PO DAILY March 24, 2016 12:00am June 17, 2024 11:07am Problems Active Problems Problem Classification Problem Date Documented Da te Episodic/Chronic Abdominal hernia (16 sources) Hernia of abdominal cavity; Translations: [Unspecified abdominal hernia without obstruction or gangrene] 03-18-2020 Episodic Acute bronchitis (1 source) Acute bronchitis; Translations: [Acute bronchitis, unspecified] Episodic Adjustment disorders (20 sources) Mixed anxiety and depressive disorder; Translations: [Adjustment disorder with mixed anxiety and depressed mood] Onset: 8 04-21-2021 Chronic Allergic reactions (1 source) Allergic condition; Translations: [Allergy, unspecified, initial encounter] Episodic Anxiety disorders (20 sources) Anxiety; Translations: [Anxiety disorder, unspecified] Onset: 1 06-01-2021 Chronic Aortic; peripheral; and visceral artery aneurysms (20 sources) Thoracic aortic ectasia; Translations: [Thoracic aortic aneurysm without rupture] Onset: 6 04-14-2016 Chronic Bacterial infection; unspecified site (1 source) Other specified bacterial agents as the cause of diseases classified elsewhere; Translations: [Bacterial sinusitis] Onset: Episodic Blindness and vision defects (1 source) Diplopia; Translations: [Diplopia] Episodic Chronic obstructive pulmonary disease and bronchiectasis (1 source) Bronchitis; Translations: [Bronchitis, not specified as acute or chronic] Episodic Diseases of mouth; excluding dental (1 source) Xerostomia; Translations: [Dry mouth, unspecified] 04-24-2023 Episodic Disorders of lipid metabolism (20 sources) Hyperlipidemia; Translations: [Hyperlipidemia, unspecified] Onset: 6 04-05-2016 Chronic Disorders of teeth and jaw (1 source) Toothache; Translations: [Other specified disorders of teeth and supporting structures] Episodic Esophageal disorders (20 sources) Gastroesophageal reflux disease; Translations: [Gastro-esophageal reflux disease without esophagitis] Onset: 2 04-27-2022 Chronic Essential hypertension (20 sources) Essential hypertension; Translations: [Essential (primary) hypertension] Onset: 9 Chronic Comment on above: CONTROLLED ON MED Gastroduodenal ulcer (except hemorrhage) (1 source) Acute gastric ulcer; Translations: [Acute gastric ulcer without hemorrhage or perforation] Episodic Genitourinary symptoms and ill-defined conditions (20 sources) Urge incontinence of urine; Translations: [Urge incontinence] Onset: 7 Resolved: 9 04-21-2021 Chronic Genitourinary symptoms and ill-defined conditions (20 sources) Increased frequency of urination; Translations: [Frequency of micturition] Onset: 7 Resolved: 6 Episodic Headache; including migraine (20 sources) Migraine; Translations: [Migraine, unspecified, not intractable, without status migrainosus] Onset: 1 07-26-2021 Chronic Heart valve disorders (20 sources) Nonrheumatic aortic valve disorder, unspecified; Translations: [Nonrheumatic mitral valve disorder, unspecified] Onset: 6 04-06-2016 Chronic Immunizations and screening for infectious disease (2 sources) Suspected disease caused by 2019-nCoV; Translations: [Suspected COVID-19 virus infection] Episodic Inflammation; infection of eye (except that caused by tuberculosis or sexually transmitteddisease) (1 source) Bilateral conjunctivitis; Translations: [Unspecified conjunctivitis] 12-10-2023 Episodic Menopausal disorders (1 source) Atrophic vaginitis; Translations: [Postmenopausal atrophic vaginitis] 12-16-2024 Chronic Miscellaneous mental health disorders (20 sources) Primary insomnia; Translations: [Primary insomnia] Onset: 3 Resolved: 7 06-13-2021 Chronic Nonspecific chest pain (20 sources) Chest pain; Translations: [Chest pain, unspecified] Onset: 6 04-04-2016 Episodic Nutritional deficiencies (20 sources) Vitamin D deficiency; Translations: [Vitamin D deficiency, unspecified] Onset: 2 Resolved: 8 04-21-2021 Chronic Open wounds of extremities (16 sources) Open wound of finger; Translations: [Unspecified open wound of unspecified finger without damage to nail, initial encounter] 03-13-2020 Episodic Osteoarthritis (20 sources) Arthritis of left knee; Translations: [Unilateral primary osteoarthritis, left knee] Onset: 3 04-21-2021 Chronic Other aftercare (20 sources) Long-term current use of benzodiazepine; Translations: [Other retirement (current) drug therapy] Onset: 1 06-01-2021 Episodic Other aftercare (20 sources) Patient encounter status; Translations: [Other superintendent terminal (current) drug therapy] Onset: 8 Resolved: 8 Episodic Other aftercare (1 source) Taking high risk medication; Translations: [Other superintendent terminal (current) drug therapy] 07-08-2024 Episodic Other aftercare (1 source) Encounter for follow-up examination after completed treatment for conditions other than malignant neoplasm; Translations: [Encounter for follow-up examination after completed treatment for conditions other than malignant neoplasm] Onset: 5 Episodic Other aftercare (4 sources) Other superintendent terminal (current) drug therapy; Translations: [High risk medication use] Onset: 4 Episodic Other and ill-defined cerebrovascular disease (1 source) Cerebral arterial aneurysm; Translations: [Cerebral aneurysm, nonruptured] Chronic Other bone disease and musculoskeletal deformities (1 source) Costal chondritis; Translations: [Chondrocostal junction syndrome [Tietze]] Episodic Other connective tissue disease (14 sources) History of reverse prosthetic total arthroplasty of right shoulder; Translations: [Presence of right artificial shoulder joint] 06-15-2022 Chronic Other connective tissue disease (2 sources) Presence of right artificial shoulder joint; Translations: [Shoulder joint replacement] Chronic Other connective tissue disease (1 source) History of left shoulder arthroplasty; Translations: [Presence of left artificial shoulder joint] Onset: 4 Chronic Other connective tissue disease (1 source) Bursitis of knee; Translations: [Other bursitis of knee, unspecified knee] Episodic Other connective tissue disease (2 sources) Pain in left thumb; Translations: [Pain in left finger(s)] 10-10-2023 Episodic Other connective tissue disease (2 sources) Pain in left foot; Translations: [Pain in left foot] 03-13-2024 Episodic Other connective tissue disease (2 sources) Swelling of lower limb; Translations: [Other specified soft tissue disorders] 03-25-2024 Episodic Other female genital disorders (1 source) Postcoital and contact bleeding; Translations: [PCB (post coital bleeding)] Onset: 4 Chronic Other female genital disorders (5 sources) Vaginal discharge; Translations: [Other specified noninflammatory disorders of vagina] 12-10-2023 Episodic Other female genital disorders (5 sources) Vaginal odor; Translations: [Other specified noninflammatory disorders of vagina] 03-25-2024 Episodic Other female genital disorders (1 source) Pruritus of vagina; Translations: [Other specified noninflammatory disorders of vagina] 05-13-2024 Episodic Other female genital disorders (1 source) Burning sensation of vagina; Translations: [Other specified conditions associated with female genital organs and menstrual cycle] 07-17-2024 Episodic Other female genital disorders (2 sources) Vulval irritation; Translations: [Other specified noninflammatory disorders of vulva and perineum] 07-24-2024 Episodic Other gastrointestinal disorders (2 sources) Diarrhea of presumed infectious origin; Translations: [Diarrhea, unspecified] Episodic Other gastrointestinal disorders (1 source) Occult blood in stools; Translations: [Other fecal abnormalities] 05-30-2024 Episodic Other gastrointestinal disorders (2 sources) Diarrhea, unspecified; Translations: [Diarrhea, unspecified] Onset: 5 Episodic Other gastrointestinal disorders (2 sources) Diarrhea; Translations: [Diarrhea, unspecified] 07-24-2024 Episodic Other hereditary and degenerative nervous system conditions (20 sources) Essential tremor; Translations: [Essential tremor] Onset: 2 Chronic Other hereditary and degenerative nervous system conditions (20 sources) Restless legs; Translations: [Restless legs syndrome] Onset: 4 02-25-2024 Chronic Other hereditary and degenerative nervous system conditions (1 source) Restless legs syndrome; Translations: [RLS (restless legs syndrome)] Onset: 4 Chronic Other hereditary and degenerative nervous system conditions (1 source) Essential tremor; Translations: [Essential tremor] Onset: 2 Chronic Other injuries and conditions due to external causes (2 sources) Traumatic injury; Translations: [Injury, unspecified, initial encounter] 09-16-2024 Episodic Other liver diseases (20 sources) Steatosis of liver; Translations: [Fatty (change of) liver, not elsewhere classified] Onset: 4 08-11-2024 Chronic Other liver diseases (2 sources) Fatty (change of) liver, not elsewhere classified; Translations: [Fatty (change of) liver, not elsewhere classified] Onset: 5 Chronic Other liver diseases (4 sources) Alkaline phosphatase raised; Translations: [Abnormal levels of other serum enzymes] 06-02-2024 Episodic Other lower respiratory disease (5 sources) Multiple nodules of lung; Translations: [Other nonspecific abnormal finding of lung field] Episodic Other lower respiratory disease (14 sources) Dyspnea on exertion; Translations: [Other forms of dyspnea] 08-07-2022 Episodic Other lower respiratory disease (3 sources) Disorder of lung; Translations: [Other disorders of lung] 06-17-2024 Episodic Other lower respiratory disease (2 sources) Rib pain; Translations: [Pleurodynia] 09-16-2024 Episodic Other nervous system disorders (20 sources) Hydrocephalus; Translations: [Hydrocephalus, unspecified] Onset: 3 04-21-2021 Chronic Other nervous system disorders (20 sources) Chronic pain syndrome; Translations: [Chronic pain syndrome] Onset: 3 Chronic Other nervous system disorders (1 source) Hydrocephalus, unspecified; Translations: [Hydrocephalus, adult (HCC)] Onset: 3 Chronic Other nervous system disorders (1 source) Ataxia; Translations: [Ataxia, unspecified] Episodic Other non-traumatic joint disorders (3 sources) Pain in right knee; Translations: [Pain in joint, lower leg] Episodic Other non-traumatic joint disorders (2 sources) Multiple joint pain; Translations: [Pain in unspecified joint] Episodic Other nutritional; endocrine; and metabolic disorders (20 sources) Obesity; Translations: [Obesity, unspecified] Onset: 4 03-13-2024 Chronic Other nutritional; endocrine; and metabolic disorders (20 sources) Obese class I; Translations: [Obesity, Class I, BMI 30-34.9] Onset: 4 07-15-2024 Chronic Other screening for suspected conditions (not mental disorders or infectious disease) (20 sources) Abnormal electrocardiogram [ECG] [EKG]; Translations: [Echocardiogram abnormal] Onset: 6 Resolved: 8 04-06-2016 Episodic Other skin disorders (1 source) Mass of skin of right lower limb; Translations: [Localized swelling, mass and lump, right lower limb] Episodic Other skin disorders (1 source) Disorder of right lower extremity; Translations: [Localized swelling, mass and lump, right lower limb] Episodic Other skin disorders (1 source) Eruption; Translations: [Rash and other nonspecific skin eruption] 02-14-2024 Episodic Other upper respiratory disease (1 source) Chronic rhinitis; Translations: [Chronic rhinitis] Chronic Other upper respiratory disease (1 source) Non-allergic rhinitis; Translations: [Chronic rhinitis] Chronic Other upper respiratory disease (1 source) Pain in throat Onset: 5 Episodic Other upper respiratory infections (4 sources) Bacterial sinusitis; Translations: [Chronic sinusitis, unspecified] Onset: 5 09-16-2024 Chronic Other upper respiratory infections (20 sources) Acute sinusitis; Translations: [Acute sinusitis, unspecified] Onset: 7 Resolved: 6 Episodic Shanti-; endo-; and myocarditis; cardiomyopathy (except that caused by tuberculosis or sexually transmitted disease) (20 sources) Heart valve disorder; Translations: [Endocarditis, valve unspecified] Chronic Residual codes; unclassified (20 sources) Obstructive sleep apnea syndrome; Translations: [Obstructive sleep apnea (adult) (pediatric)] Onset: 7 04-21-2021 Chronic Residual codes; unclassified (1 source) Daytime somnolence; Translations: [Other hypersomnia] Chronic Residual codes; unclassified (1 source) Sleep apnea; Translations: [Sleep apnea, unspecified] Onset: 4 Chronic Residual codes; unclassified (2 sources) Hypoxia; Translations: [Idiopathic sleep related nonobstructive alveolar hypoventilation] 01-16-2025 Chronic Residual codes; unclassified (1 source) Obstructive sleep apnea (adult) (pediatric); Translations: [HUBER on CPAP] Onset: 4 Chronic Residual codes; unclassified (1 source) Intolerant of cold; Translations: [Other general symptoms and signs] Episodic Residual codes; unclassified (2 sources) Intolerant of heat; Translations: [Other general symptoms and signs] Episodic Residual codes; unclassified (11 sources) Active living will ; Translations: [Personal history of other specified conditions] Onset: 2 Episodic Residual codes; unclassified (2 sources) Edema, unspecified; Translations: [Edema] 11-20-2022 Episodic Residual codes; unclassified (2 sources) Postmenopausal state; Translations: [Asymptomatic menopausal state] 05-28-2023 Episodic Residual codes; unclassified (1 source) Frequent night waking; Translations: [Insomnia, unspecified] 06-02-2024 Episodic Residual codes; unclassified (1 source) Insomnia; Translations: [Insomnia, unspecified] 09-12-2024 Episodic Residual codes; unclassified (1 source) Personal history of other specified conditions; Translations: [History of gross hematuria] Onset: 5 Episodic Respiratory failure; insufficiency; arrest (adult) (20 sources) Chronic hypoxemic respiratory failure; Translations: [Chronic respiratory failure with hypoxia] Onset: 2 Resolved: 2 09-06-2021 Chronic Rheumatoid arthritis and related [...] file] Onset: 2 04-06-2022 Unclassified (1 source) Low back pain, unspecified; Translations: [Low back pain, unspecified] Onset: 5 Unclassified (1 source) Thoracic aortic aneurysm without rupture, unspecified part; Translations: [Thoracic aortic aneurysm without rupture, unspecified part] Onset: 5 Unclassified (1 source) Obesity, Class I, BMI 30-34.9; Translations: [Obesity, Class I, BMI 30-34.9] Onset: 4 Unclassified (1 source) Post-COVID chronic dyspnea; Translations: [Post-COVID chronic dyspnea] Onset: 2 Urinary tract infections (1 source) Urinary tract infectious disease; Translations: [Urinary tract infection, site not specified] 04-28-2025 Episodic Past or Other Problems Problem Classification Problem Date Documented Da te Episodic/Chronic Abdominal pain (20 sources) Epigastric pain; Translations: [Epigastric pain] Onset: 8 Resolved: 8 Episodic Administrative/social admission (20 sources) Advance directive discussed with patient; Translations: [Other specified counseling] Onset: 8 Resolved: 8 Episodic Cardiac dysrhythmias (20 sources) Palpitations; Translations: [Palpitations] Onset: 4 Episodic Complication of device; implant or graft (1 source) Pain due to internal orthopedic prosthetic devices, implants and grafts, initial encounter; Translations: [Pain due to internal orthopedic prosthetic devices, implants and grafts, initial encounter] Onset: 4 Episodic Complications of surgical procedures or medical care (20 sources) Postoperative ileus; Translations: [Other postprocedural complications and disorders of digestive system] Onset: 8 Resolved: 8 06-03-2018 Episodic Conditions associated with dizziness or vertigo (18 sources) Dizziness; Translations: [Dizziness and giddiness] Onset: 4 Episodic Diabetes mellitus without complication (20 sources) High hemoglobin A1c level; Translations: [Other abnormal glucose] Onset: 3 04-24-2023 Episodic Diseases of white blood cells (20 sources) Leukocytosis; Translations: [Elevated white blood cell count, unspecified] Onset: 8 Resolved: 8 Chronic Diverticulosis and diverticulitis (20 sources) Diverticulitis; Translations: [Diverticulitis of intestine, part unspecified, without perforation or abscess without bleeding] Onset: 8 Resolved: 8 03-17-2020 Chronic Fluid and electrolyte disorders (20 sources) Hyponatremia; Translations: [Hypo-osmolality and hyponatremia] Onset: 8 Resolved: 8 10-25-2017 Episodic Gastrointestinal hemorrhage (20 sources) Gastrointestinal hemorrhage; Translations: [Gastrointestinal hemorrhage, unspecified] Onset: 9 Resolved: 6 07-13-2016 Episodic Headache; including migraine (20 sources) Headache; Translations: [Headache] Onset: 7 Resolved: 6 03-16-2016 Episodic Intestinal obstruction without hernia (20 sources) Intestinal obstruction co-occurrent and due to decreased peristalsis; Translations: [Ileus, unspecified] Onset: 8 Resolved: 8 11-05-2017 Episodic Malaise and fatigue (15 sources) Fatigue; Translations: [Other fatigue] Onset: 4 Episodic Menstrual disorders (20 sources) Irregular periods; Translations: [Irregular menstruation, unspecified] Onset: 7 Resolved: 9 10-20-2008 Chronic Nausea and vomiting (20 sources) Nausea; Translations: [Nausea] Onset: 8 Resolved: 8 11-05-2017 Episodic Noninfectious gastroenteritis (20 sources) Chronic diarrhea; Translations: [Noninfective gastroenteritis and colitis, unspecified] Onset: 9 Resolved: 6 04-21-2021 Episodic Other aftercare (20 sources) Peripherally inserted central venous catheter in situ; Translations: [Encounter for adjustment and management of vascular access device] Onset: 8 Resolved: 8 11-05-2017 Episodic Other connective tissue disease (20 sources) Fibromyalgia; Translations: [Fibromyalgia] Onset: 4 04-21-2021 Episodic Other connective tissue disease (20 sources) Plantar fasciitis; Translations: [Plantar fascial fibromatosis] Onset: 8 06-13-2021 Episodic Other connective tissue disease (20 sources) Trochanteric bursitis of left hip; Translations: [Trochanteric bursitis, left hip] Onset: 3 Resolved: 8 01-09-2018 Episodic Other connective tissue disease (20 sources) Iliotibial band friction syndrome of left knee; Translations: [Iliotibial band syndrome, left leg] Onset: 7 Resolved: 8 07-24-2018 Episodic Other connective tissue disease (2 sources) Fibromyalgia; Translations: [Fibromyalgia] Onset: 3 Episodic Other diseases of bladder and urethra (20 sources) Other specified disorders of urethra; Translations: [Urethrocele] Onset: 8 Resolved: 9 10-20-2008 Episodic Other diseases of kidney and ureters (20 sources) Cyst of kidney; Translations: [Cyst of kidney, acquired] Onset: 6 04-21-2021 Episodic Other diseases of kidney and ureters (1 source) Cyst of kidney, acquired; Translations: [Renal cyst] Onset: 1 Episodic Other female genital disorders (20 sources) Postcoital bleeding; Translations: [Postcoital and contact bleeding] Onset: 7 Resolved: 9 10-20-2008 Chronic Other female genital disorders (20 sources) Dyspareunia; Translations: [Dyspareunia] Onset: 7 Resolved: 6 03-16-2016 Chronic Other female genital disorders (20 sources) Cervical intraepithelial neoplasia grade 1; Translations: [Mild cervical dysplasia] Onset: 7 Resolved: 6 03-16-2016 Episodic Other female genital disorders (1 source) Other specified noninflammatory disorders of vagina; Translations: [Vaginal odor] Onset: 4 Episodic Other gastrointestinal disorders (20 sources) Colostomy present; Translations: [Colostomy status] Onset: 8 Resolved: 8 05-21-2018 Chronic Other gastrointestinal disorders (20 sources) Swollen abdomen; Translations: [Abdominal distension (gaseous)] Onset: 8 Resolved: 8 11-05-2017 Episodic Other gastrointestinal disorders (20 sources) Intra-abdominal collection; Translations: [Other ascites] Onset: 8 Resolved: 8 06-03-2018 Episodic Other gastrointestinal disorders (1 source) Other fecal abnormalities; Translations: [Positive occult stool blood test] Onset: 4 Episodic Other infections; including parasitic (20 sources) Personal history of other infectious and parasitic diseases; Translations: [History of COVID-19] Onset: 1 06-13-2021 Episodic Other injuries and conditions due to external causes (1 source) Injury, unspecified, initial encounter; Translations: [Trauma] Onset: 5 Episodic Other liver diseases (1 source) Abnormal levels of other serum enzymes; Translations: [Elevated alkaline phosphatase level] Onset: 4 Episodic Other lower respiratory disease (20 sources) Dyspnea; Translations: [Shortness of breath] Onset: 3 Resolved: 7 04-04-2016 Episodic Other lower respiratory disease (20 sources) Hypoxia; Translations: [Hypoxemia] Onset: 1 Resolved: 2 06-13-2021 Episodic Other lower respiratory disease (20 sources) Nodule of lung; Translations: [Solitary pulmonary nodule] Onset: 2 Episodic Other lower respiratory disease (20 sources) Other forms of dyspnea; Translations: [Other respiratory abnormalities] Onset: 2 Episodic Other lower respiratory disease (3 sources) Productive cough ; Translations: [Productive cough] Onset: 5 09-28-2024 Episodic Other lower respiratory disease (1 source) Other disorders of lung; Translations: [Small airways disease] Onset: 5 Episodic Other lower respiratory disease (1 source) Pleurodynia; Translations: [Rib pain on right side] Onset: 5 Episodic Other lower respiratory disease (1 source) Hypoxemia; Translations: [Hypoxia] Onset: 5 Episodic Other lower respiratory disease (1 source) Shortness of breath; Translations: [SOB (shortness of breath)] Onset: 4 Episodic Other nervous system disorders (20 sources) Mononeuritis; Translations: [Mononeuropathy, unspecified] Onset: 6 Resolved: 8 01-09-2018 Chronic Other nervous system disorders (20 sources) Left-sided piriformis syndrome; Translations: [Lesion of sciatic nerve, left lower limb] Onset: 3 Resolved: 7 07-04-2017 Chronic Other nervous system disorders (20 sources) Postoperative pain ; Translations: [Other acute postprocedural pain] Onset: 8 Resolved: 9 03-27-2019 Episodic Other non-traumatic joint disorders (20 sources) Hip pain; Translations: [Pain in unspecified hip] Onset: 3 Episodic Other non-traumatic joint disorders (20 sources) Pain in right hip joint; Translations: [Pain in right hip] Onset: 3 Episodic Other non-traumatic joint disorders (20 sources) Chronic pain of left upper limb; Translations: [Pain in left shoulder] Onset: 4 10-10-2023 Episodic Other non-traumatic joint disorders (20 sources) Shoulder pain; Translations: [Pain in unspecified shoulder] Onset: 2 Resolved: 8 06-12-2018 Episodic Other nutritional; endocrine; and metabolic disorders (20 sources) Hypocalcemia; Translations: [Hypocalcemia] Onset: 8 Resolved: 8 11-05-2017 Chronic Other nutritional; endocrine; and metabolic disorders (3 sources) Body mass index (BMI) 26.0-26.9, adult; Translations: [Body mass index (BMI) 26.0-26.9, adult] Onset: 6 05-31-2016 Episodic Peritonitis and intestinal abscess (3 sources) Infectious disease of abdomen; Translations: [Peritonitis, unspecified] Onset: 4 07-15-2024 Episodic Phlebitis; thrombophlebitis and thromboembolism (20 sources) Bilateral upper limb superficial vein thrombophlebitis; Translations: [Phlebitis and thrombophlebitis of other sites] Onset: 8 Resolved: 8 01-09-2018 Episodic Prolapse of female genital organs (20 sources) Midline cystocele; Translations: [Cystocele, midline] Onset: 7 Resolved: 9 10-20-2008 Chronic Residual codes; unclassified (16 sources) H/O: major abdominal surgery; Translations: [Other specified postprocedural states] Onset: 8 01-28-2019 Episodic Residual codes; unclassified (20 sources) Nasogastric tube in situ; Translations: [Presence of other specified devices] Onset: 8 Resolved: 8 10-30-2017 Episodic Residual codes; unclassified (20 sources) Feeding problem; Translations: [Other specified health status] Onset: 8 Resolved: 8 11-05-2017 Episodic Residual codes; unclassified (20 sources) Postoperative state; Translations: [Other specified postprocedural states] Onset: 8 Resolved: 8 07-24-2018 Episodic Residual codes; unclassified (20 sources) Pain relieved by analgesic; Translations: [Pain, unspecified] Onset: 8 Resolved: 8 05-23-2018 Episodic Residual codes; unclassified (20 sources) Bilateral lower limb edema; Translations: [Localized edema] Onset: 4 02-14-2024 Episodic Residual codes; unclassified (1 source) Asymptomatic menopausal state; Translations: [Asymptomatic postmenopausal status] Onset: 4 Episodic Residual codes; unclassified (1 source) Localized edema; Translations: [Bilateral leg edema] Onset: 4 Episodic Residual codes; unclassified (2 sources) Insomnia, unspecified; Translations: [Insomnia, unspecified type] Onset: 4 Episodic Screening and history of mental health and substance abuse codes (20 sources) Ex-smoker; Translations: [Personal history of nicotine dependence] Onset: 2 04-06-2022 Episodic Septicemia (except in labor) (20 sources) Sepsis; Translations: [Sepsis, unspecified organism] Onset: 8 Resolved: 8 03-12-2020 Episodic Sexually transmitted infections (not HIV or hepatitis) (20 sources) Human papillomavirus deoxyribonucleic acid test positive, high risk on cervical specimen; Translations: [Cervical high risk human papillomavirus (HPV) DNA test positive] Onset: 8 04-21-2021 Episodic Spondylosis; intervertebral disc disorders; other back problems (20 sources) Backache; Translations: [Dorsalgia, unspecified] Onset: 3 Resolved: 8 Episodic Viral infection (20 sources) Disease caused by 2019-nCoV; Translations: [COVID-19] Onset: 1 Resolved: 3 Episodic Results Test Name Value Interpretation Reference Range Facility CNOVon 04-28-2025 [facility] DIP, URINE (POC)on 2024 BILIRUBIN UA (POCT) Negative Negative [facility] CLARITY UA (POCT) Cloudy [facility] COLOR UA (POCT) Yellow [facility] GLUCOSE UA (POCT) Negative Negative mg/dL [facility] Hemoglobin Ql (U) Moderate Abnormal Negative [facility] Interpretation and review of laboratory results Abnormal [facility] KETONE UA (POCT) Negative Negative mg/dL [facility] LEUKOCYTES UA (POCT) Trace Abnormal Negative [facility] NITRITE UA (POCT) Negative Negative [facility] PH UA (POCT) 6.0 4.5 - 8.0 [facility] Protein Ql (U) Negative Negative mg/dL [facility] SPECIFIC GRAVITY UA (POCT) >=1.030 1.005 - 1.030 [facility] UROBILINOGEN UA (POCT) 0.2 Normal E.U./dL [facility] Location:[facility], [address] , [place], [place], [id number] [place] [address] POINT OF CARE [facility] Bacteria Ur Culton 5 Bacteria identified Cx Nom (U) Abnormal [facility] Comment on above: Performed By: #### 6 30-4 ####[facility] LABCLIA [id number] [address] [place] CNOVon 04-25-2025 CNOV Normal [facility] UA DIP, URINE (POC)on 2024 BILIRUBIN UA (POCT) Negative Negative [facility] CLARITY UA (POCT) Clear [facility] COLOR UA (POCT) Yellow [facility] GLUCOSE UA (POCT) Negative Negative mg/dL [facility] Hemoglobin Ql (U) Moderate Abnormal Negative [facility] Interpretation and review of laboratory results Abnormal [facility] KETONE UA (POCT) Negative Negative mg/dL [facility] LEUKOCYTES UA (POCT) Small Abnormal Negative [facility] NITRITE UA (POCT) Negative Negative [facility] PH UA (POCT) 5.5 4.5 - 8.0 [facility] Protein Ql (U) Negative Negative mg/dL [facility] SPECIFIC GRAVITY UA (POCT) 1.020 1.005 - 1.030 [facility] UROBILINOGEN UA (POCT) 0.2 Normal E.U./dL [facility] Location:[address], [place], [place], [id number] [place] [address] POINT OF CARE [facility] US KIDNEY/BLADDERon 04-13-20 US KIDNEY/BLADDER Normal [facility] CNOVon 04-10-2025 CNOV Normal [facility] HbA1c (Bld)on 04-10-2025 Average glucose Estimated from glycated hemoglobin (Bld) [Mass/Vol] 126 mg/dL Normal [facility] Comment on above: Order Comment: Isaac men Type: BLOOD SPECIMENOrdering Facility: [facility] Address: [address] [place] [address] Result Comment: eAG: (Estimated average glucose) is a calculated value from HgbA1c and is premium service representative of the average blood glucose level in the last 2-3 month period. Performed By: #### 5 5454-3 ####[facility] LABCLIA [id number] [place] [address] [place] HbA1c (Bld) [Mass fraction] 6.0 % High 4.3-5.[address] [facility] Comment on above: Order Comment: Isaac greene Type: BLOOD SPECIMENOrdering Facility: [facility] Address: [address] [place] [address] Result Comment: Amer ican Diabetes Association guidelines indicate that patients with HgbA1c in the range 5.7-6.4% are at increased risk for development of diabetes, and intervention by lifestyle modification may be beneficial. HgbA1c greater or equal to 6.5% is considered diagnostic of diabetes. Performed By: #### 5 5454-3 ####[facility] LABCLIA [id number] [place] [id number] [place] Hepatic function 2000 panelo n 04-10-2025 Albumin [Mass/Vol] 4.2 g/dL Normal 3.9-4.9 [facility] Comment on above: Order Comment: Speci men Type: BLOOD SPECIMENOrdering Facility: [facility] Address: [address] [place] [address] Performed By: #### 2 4325-3, LIPNF ####[facility] LABCLIA [id number] [place] [address] [place] ALP [Catalytic activity/Vol] 125 U/L High 34-[address] [facility] Comment on above: Order Comment: Speci men Type: BLOOD SPECIMENOrdering Facility: [facility] Address: [address] [place] [address] Performed By: #### 2 4325-3, LIPNF ####[facility] LABCLIA [id number] [place] [address] [place] ALT [Catalytic activity/Vol] 19 U/L Normal 7-[address] [facility] Comment on above: Order Comment: Speci men Type: BLOOD SPECIMENOrdering Facility: [facility] Address: [address] [place] [address] Performed By: #### 2 4325-3, LIPNF ####[facility] LABCLIA [id number] [place] [address] [place] AST [Catalytic activity/Vol] 20 U/L Normal 13-[address] [facility] Comment on above: Order Comment: Speci men Type: BLOOD SPECIMENOrdering Facility: [facility] Address: [address] [place] [address] Performed By: #### 2 4325-3, LIPNF ####[facility] LABCLIA [id number] [place] [id number] [place] Bilirubin [Mass/Vol] 0.4 mg/dL Normal 0.2-1.3 [facility] Comment on above: Order Comment: Speci men Type: BLOOD SPECIMENOrdering Facility: [facility] Address: [address] [place] [address] Performed By: #### 2 4325-3, LIPNF ####[facility] LABCLIA [id number] [address] [place] [address] [place] Bilirubin.conjugated [Mass/Vol] 0.2 mg/dL Normal <0.[address] [facility] Comment on above: Order Comment: Speci men Type: BLOOD SPECIMENOrdering Facility: [facility] Address: [address] [place] [address] Performed By: #### 2 4325-3, LIPNF ####[facility] LABCLIA [id number] [address], [place] [address] [place] Protein [Mass/Vol] 7.4 g/dL Normal 6.3-8.0 [facility] Comment on above: Order Comment: Speci men Type: BLOOD SPECIMENOrdering Facility: [facility] Address: [address] [place] [address] Performed By: #### 2 4325-3, LIPNF ####[facility] LABCLIA [id number] [address], [place] [address] [place] LIPID PANEL, NONFASTINGon Cholesterol [Mass/Vol] 215 mg/dL High <[address] [facility] Comment on above: Order Comment: Speci men Type: BLOOD SPECIMENOrdering Facility: [facility] Address: [address] [place], [place] [address] Result Comment: <200 mg/dL, Desirable 200-239 mg/dL, Borderline high>239 mg/dL, High Performed By: #### 2 4325-3, LIPNF ####[facility] LABCLIA [id number] [address] [place] [address] [place] HDL CHOLESTEROL, NF 41 mg/dL Normal >39 [facility] Comment on above: Order Comment: Speci men Type: BLOOD SPECIMENOrdering Facility: [facility] Address: [address] [place] [address] Result Comment: 40-5 9 mg/dL, Acceptable>59 mg/dL, High: Negative risk factor for coronary heart disease<40 mg/dL, Low: Positive risk factor for coronary heart disease Performed By: #### 2 4325-3, LIPNF ####[facility] LABCLIA [id number] [place] [address] [place] LDL CHOLESTEROL CALCULATED, NF 139 mg/dL High <[address] [facility] Comment on above: Order Comment: Speci men Type: BLOOD SPECIMENOrdering Facility: [facility] Address: [address] [place] [address] Result Comment: <100 mg/dL, Optimal 100-129 mg/dL, Near optimal/above optimal 130-159 mg/dL, Borderline high 160-189 mg/dL, High>189 mg/dL, Very highSecondary prevention optimal LDL Cholesterol levels are recommended to be <70 mg/dLLDL cholesterol is calculated using the Bishop-NIH equation. Performed By: #### 2 4325-3, LIPNF ####[facility] LABCLIA [id number] [place] [address] [place] LDL/HDL RATIO, NF 3.39 mg/dL High <2.54 [facility] Comment on above: Order Comment: Speci men Type: BLOOD SPECIMENOrdering Facility: [facility] Address: [address] [place] [address] Result Comment: Refe rence:1. National Cholesterol Education Program ATP III Guideline At-A-Glance Quick Desk Reference: National Heart, Lung, and Blood [place]. National Institutes of Health. 2001: NIH Publication No. 01-3305.2. An International Atherosclerosis Society position paper: global recommendations for the management of dyslipidemia: executive summary, Atherosclerosis. 2014: 232(2):410-413. Performed By: #### 2 4325-3, LIPNF ####[facility] LABCLIA [id number] [place] [address] [place] NON HDL CHOL, NF 174 mg/dL High <130 [facility] Comment on above: Order Comment: Speci men Type: BLOOD SPECIMENOrdering Facility: [facility] Address: [address] [place] [address] Result Comment: <130 mg/dL, Optimal 130-159 mg/dL, Near optimal/above optimal 160-189 mg/dL, Borderline high 190-219 mg/dL, High>219 mg/dL, Very highSecondary prevention optimal non HDL Cholesterol levels are recommended to be <100 mg/dL Performed By: #### 2 4325-3, LIPNF ####[facility] LABCLIA [id number] [place] [address] [place] T CHOL/HDL RATIO NF 5.24 mg/dL High <5.10 [facility] Comment on above: Order Comment: Speci men Type: BLOOD SPECIMENOrdering Facility: [facility] Address: [address] [place] [address] Performed By: #### 2 4325-3, LIPNF ####[facility] LABCLIA [id number] [place] [address] [place] TRIGLYCERIDES, NF 193 mg/dL High <150 [facility] Comment on above: Order Comment: Speci men Type: BLOOD SPECIMENOrdering Facility: [facility] Address: [address] [place] [address] Result Comment: <150 mg/dL, Normal 150-199 mg/dL, Borderline high 200-499 mg/dL, High>499 mg/dL, Very high Performed By: #### 2 4325-3, LIPNF ####[facility] LABCLIA [id number] [place] [address] [place] VLDL CHOLESTEROL, NF 35 mg/dL High <30 [facility] Comment on above: Order Comment: Speci men Type: BLOOD SPECIMENOrdering Facility: [facility] Address: [address] [place] [address] Performed By: #### 2 4325-3, LIPNF ####[facility] LABCHUCK [id number] [place] [address] [place] CNPNon 04-09-2025 CNPN Normal [facility] CNOVon 03-30-2025 CNOV Normal [facility] CNOVon 03-28-2025 CNOV Normal [facility] CNPNon 03-28-2025 CNPN Telephone (RHEAGK) -------- KRISTINA BURCH ([id number]) 1960 F Date Time Provider Department 03/28/25 REGINALDO BURNETT During your visit today, we recorded the following information about you: Reginaldo Burnett MD 03/28/2025 1:24 PM Signed Please call her OK to stop celebrex Received info from pharmacy , with liver issue ? Need office appt Reginaldo Burnett MD Allergies As of Date: 03/28/2025 Noted Allergy Reaction DILAUDID (HYDROMORPHONE (PF)) 05/24/2018 1 - Mental Status Change 14 - Other: See Comments Comments: Hallucinations SULFA (SULFONAMIDE ANTIBIOTICS) 02/09/2003 2 - Rash ULTRAM (TRAMADOL HCL) 05/01/2007 8 - GI Upset Comments: Pt. tried again on 02-13 and became very ill with GI issues OXYCONTIN (OXYCODONE HCL) 12/29/2008 7 - Swelling RELAFEN (NABUMETONE) 07/28/2005 8 - GI Upset SERTRALINE 08/18/2022 14 - Other: See Comments Comments: Tremors right upper extremity. Date Reviewed: 03/28/2025 Reviewed by: Ines Guidry MA - Fully Assessed Prescriptions as of 03/30/2025 - amoxicillin-clavulanate potassium (AUGMENTIN) 875-125 mg per tablet Take 1 tablet by mouth two times a day for 5 days. - B comp/E/folic acid/mins35/soy (MENOPAUSE SUPPORT PO) Take 1 tablet by mouth once daily. - clonazePAM (KLONOPIN) 0.5 mg tablet Take at bedtime for insomnia and RLS. - DULERA 50-5 mcg/actuation HFA aerosol inhaler Inhale 2 puffs as instructed two times a day. - trospium (SANCTURA) 20 mg tablet Take 1 tablet by mouth two times a day. Patient should start on October 27, 2024. - hydroCHLOROthiazide 25 mg tablet Take 1 tablet by mouth once daily. Prn per cardiology - atorvastatin (LIPITOR) 40 mg tablet Take 1 tablet by mouth daily at bedtime. For cholesterol. - FLUoxetine (PROZAC) 20 mg capsule Take 1 capsule by mouth once daily. - traZODone (DESYREL) 100 mg tablet Take 1 tablet by mouth daily at bedtime. - albuterol HFA (VENTOLIN HFA) 90 mcg/actuation inhaler Inhale 2 Puffs as instructed every 4 hours as needed for wheezing/shortness of breath. - CPAP/BIPAP/OTHER APAP 7-15 cmH2O DME [employer] - folic acid 1 mg tablet Take 1 tablet by mouth once daily. - azelastine (ASTELIN, ASTEPRO) 0.1% nasal spray Use 2 Sprays in each nostril twice daily as needed. - metoprolol succinate ER (TOPROL XL) 50 mg 24 hr tablet Take 2 tablets by mouth once daily. - vit C-Zn gluc-herbal no.325 (ELDERBERRY ZINC VIT C) 90-15 mg lozg Use 1 Lozenge as instructed twice daily. - calcium carbonate (CALTRATE 600 ORAL) Take 1 tablet by mouth once daily. - multivitamin tablet Take 1 tablet by mouth once daily. - BIOTIN ORAL Take 1 tablet by mouth once daily. - Cholecalciferol, Vitamin D3, 2,000 unit cap Take 10,000 Units by mouth once daily. Problem List As Of Date 03/28/2025 Noted Resolved Hydrocephalus, adult (HCC) [G91.9] 02/09/2003 Mononeuritis [G58.9] 06/29/2006 01/09/2018 Mild dysplasia of cervix [N87.0] 04/19/2007 03/16/2016 IRREGULAR MENSTRUATION [N92.6] 04/19/2007 10/20/2008 POSTCOITAL BLEEDING [N93.0] 04/19/2007 10/20/2008 Dyspareunia [SRF1236] 04/19/2007 03/16/2016 CYSTOCELE, MIDLINE [N81.11] 04/19/2007 10/20/2008 FEMALE STRESS INCONTINENCE [N39.3] 04/19/2007 10/20/2008 Urgency of urination [R39.15] 04/19/2007 Urge incontinence [N39.41] 04/19/2007 Headache(784.0) [R51] 07/12/2007 03/16/2016 Acute sinusitis, unspecified [J01.90] 07/15/2007 03/16/2016 Cervical high risk HPV (human papillomavirus) t*05/27/2008 URETHROCELE [N36.8] 07/17/2008 10/20/2008 EXCESSIVE MENSTRUATION [N92.0] 09/01/2008 10/20/2008 Other and unspecified noninfectious gastroenter*12/15/2008 07/13/2016 Hemorrhage of gastrointestinal tract, unspecifi*03/15/2009 07/13/2016 Chronic shoulder pain [M25.519, G89.29] 03/07/2012 06/12/2018 Vitamin D deficiency [E55.9] 07/23/2012 Dyspnea [R06.00] 09/10/2012 07/04/2017 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] 09/10/2012 07/04/2017 Piriformis syndrome of left side [G57.02] 01/23/2013 07/04/2017 Trochanteric bursitis of left hip [M70.62] 01/23/2013 01/09/2018 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] 01/31/2013 01/09/2018 Arthritis of knee, left [M17.12] 01/31/2013 Lumbar radiculopathy [M54.16] 07/16/2013 07/04/2017 Fibromyalgia [M79.7] 02/26/2014 Cervicalgia [M54.2] 04/30/2014 04/29/2018 Arthritis of left hip [M16.12] 01/19/2016 Mixed hyperlipidemia [E78.2] 01/20/2016 Renal cyst [N28.1] 07/13/2016 HUBER on CPAP [G47.33] 10/13/2016 Ascending aorta dilatation (HCC) [I77.810] 07/04/2017 Diverticulitis [K57.92] 10/18/2017 04/29/2018 Leukocytosis [D72.829] 10/22/2017 11/05/2017 Abdominal pain [R10.9] 10/22/2017 11/26/2017 Ileus (HCC) [K56.7] 10/22/2017 11/05/2017 Elevated serum creatinine [R79.89] 10/24/2017 10/25/2017 Hyponatremia [E87.1] 10/24/2017 10/25/2017 Abdominal distention [R14.0] 10/24/2017 11/05/2017 Superficial thrombophlebitis of both upper extr* (more content not included)... Normal [facility] CNOVon 03-12-2025 CNOV Normal [facility] CNOVon 01-16-2025 CNOV Normal [facility] BACTERIAL VAGINOSIS NAATon 0 12-16-2024 Lactobacillus crispatus+gasseri+tomasz senii + Gardnerella vaginalis + Atopobium vaginae rRNA MICHELLE+probe Ql (Vag fld) Not detected Normal Not detected [facility] Comment on above: Order Comment: Speci men Type: SWABOrdering Facility: [facility] Address: [address] [place] [address] Performed By: #### B VAMP, CVTV ####[facility] LABCLIA [id number] [place] [address] [place] Bacteria Ur Culton 5 Bacteria identified Cx Nom (U) Abnormal [facility] Comment on above: Performed By: #### 6 30-4 ####[facility] LABCLIA [id number] [place] [address] [place] LONA/TRICHOMONAS NAATon 0 12-16-2024 C. glabrata RNA MICHELLE+probe Ql (Vag fld) Not detected Normal Not detected [facility] Comment on above: Order Comment: Speci men Type: SWABOrdering Facility: [facility] Address: [address] [place] [address] Performed By: #### B VAMP, CVTV ####[facility] LABCLIA [id number] [place] [address] [place] Lona sp DNA MICHELLE+probe Ql (Vag fld) Not detected Normal Not detected [facility] Comment on above: Order Comment: Speci men Type: SWABOrdering Facility: [facility] Address: [address] [place] [address] Result Comment: The Lona species group target includes C. albicans, C. tropicalis, C. parapsilosis, and C. dubliniensis. Performed By: #### B VAMP, CVTV ####[facility] LABCLIA [id number] [place] [address] [place] T. vaginalis DNA MICHELLE+probe Ql (Unsp spec) Not detected Normal Not detected [facility] Comment on above: Order Comment: Speci men Type: SWABOrdering Facility: [facility] Address: [address] [place] [address] Performed By: #### B VAMP, CVTV ####[facility] LABCLIA [id number] [place] [address] [place] CNOVon 12-16-2024 CNOV Normal [facility] BACTERIAL VAGINOSIS NAATon 0 12-13-2024 Lactobacillus crispatus+gasseri+tomasz senii + Gardnerella vaginalis + Atopobium vaginae rRNA MICHELLE+probe Ql (Vag fld) Not detected Normal Not detected [facility] Comment on above: Order Comment: Speci men Type: SWABOrdering Facility: [facility] Address: [address] [place] [address] Performed By: #### B VAMP, CVTV ####[facility] LABCLIA [id number] [place] [address] [place] Bacteria Ur Culton Bacteria identified Cx Nom (U) Normal [facility] Comment on above: Performed By: #### 6 30-4 ####[facility] LABCLIA [id number] [place] [address] [place] LONA/TRICHOMONAS NAATon 0 12-13-2024 C. glabrata RNA MICHELLE+probe Ql (Vag fld) Not detected Normal Not detected [facility] Comment on above: Order Comment: Speci men Type: SWABOrdering Facility: [facility] Address: [address] [place] [address] Performed By: #### B VAMP, CVTV ####[facility] LABCLIA [id number] [place] [address] [place] Lona sp DNA MICHELLE+probe Ql (Vag fld) Not detected Normal Not detected [facility] Comment on above: Order Comment: Speci men Type: SWABOrdering Facility: [facility] Address: [address] [place] [address] Performed By: #### B VAMP, CVTV ####[facility] LABCLIA [id number] [address] [place] T. vaginalis DNA MICHELLE+probe Ql (Unsp spec) Not detected Normal Not detected [facility] Comment on above: Order Comment: Speci men Type: SWABOrdering Facility: [facility] Address: [address] [place] [address] Performed By: #### B VAMP, CVTV ####[facility] LABCLIA [id number] [place] [address] [place] CNOVon 12-13-2024 CNOV Normal [facility] UA DIP, URINE (POC)on 2024 BILIRUBIN UA (POCT) Small Abnormal Negative [facility] CLARITY UA (POCT) Clear [facility] COLOR UA (POCT) Yellow [facility] GLUCOSE UA (POCT) Negative Negative mg/dL [facility] Hemoglobin Ql (U) Moderate Abnormal Negative [facility] Interpretation and review of laboratory results Abnormal [facility] KETONE UA (POCT) Trace Negative mg/dL [facility]and [facility] LEUKOCYTES UA (POCT) Negative Negative [facility] NITRITE UA (POCT) Negative Negative [facility] PH UA (POCT) 5.5 4.5 - 8.0 [facility] Protein Ql (U) 30 mg/dL Abnormal Negative [facility] SPECIFIC GRAVITY UA (POCT) >=1.030 1.005 - 1.030 [facility] UROBILINOGEN UA (POCT) 0.2 Normal E.U./dL [facility] Location:[facility], [address] [facility], [place], [address] [facility] POINT OF CARE [facility] Magnetic resonance imaging r eportOrdered By: Fe Espino on 11-24-2024 Study report [facility] [address] [place] [address] Spine Lumbar (Routine) MR#: [id number] Acct: [id number] Name: KRISTINA BURCH Rep #: [id number] : 1960 F 64 From: Mary Espino MD PCP: Dr. Ganga Nunez MD Status: REG CLI Study:Spine Lumbar (Routine) Date of Exam: 11/22/24 Exam# [id number] Ordering Dr: Juan Willams PROCEDURE: SPINE LUMBAR (ROUTINE) 11/22/2024 REASON FOR EXAM: 64-year-old female, back pain, radiculopathy, left hip pain. TECHNIQUE: Multiplaner MRI of the lumbar spine performed without contrast. Multiple pulse sequences were obtained. COMPARISON: L-spine radiographs 10/25/2024. FINDINGS: Vertebrae: The vertebral body heights are maintained. No acute osseous fracture. The bone marrow is unremarkable. Alignment: Normal lumbar alignment. Conus Medullaris: Normal in signal, terminating at the L1 vertebral body. L1-2: Mild disk bulge resulting in mild central canal narrowing. No neural foraminal stenosis. L2-3: Mild disc bulging resulting in moderate central canal narrowing. No neural foraminal stenosis. L3-4: Unremarkable L4-5: Mild disk bulge. L5-S1: Unremarkable Sacrum: The visualized SI joints are unremarkable. Right upper pole renal cyst. MRI/Spine Lumbar (Routine) IMPRESSION: Mild degenerative changes resulting in up to moderate central canal narrowing atL2-3. No neural foraminal stenosis. Reading Location: [facility] CC: OMER Shen; Dr. Ganga Nunez MD ~ Buggy Driver: Signed [facility] Spine Lumbar (Routine)on Spine Lumbar (Routine) [facility] [address], [place] [id number] Spine Lumbar (Routine) MR#: [id number] Acct: [id number] Name: KRISTINA BURCH Rep #: [id number] : 1960 F 64 From: Fe Guillaume nd, MD PCP: Dr. Ganga Nunez MD Status: REG CLI Study: Spine Lumbar (Routine) Date of Exam: 11/22/24 Exam# [id number] Ordering Dr: Lori Willams PROCEDURE: SPINE LUMBAR (ROUTINE) 11/22/2024 REASON FOR EXAM: 64-year-old female, back pain, radiculopathy, left hip pain. TECHNIQUE: Multiplaner MRI of the lumbar spine performed without contrast. Multiple pulse sequences were obtained. COMPARISON: L-spine radiographs 10/25/2024. FINDINGS: Vertebrae: The vertebral body heights are maintained. No acute osseous fracture. The bone marrow is unremarkable. Alignment: Normal lumbar alignment. Conus Medullaris: Normal in signal, terminating at the L1 vertebral body. L1-2: Mild disk bulge resulting in mild central canal narrowing. No neural foraminal stenosis. L2-3: Mild disc bulging resulting in moderate central canal narrowing. No neural foraminal stenosis. L3-4: Unremarkable L4-5: Mild disk bulge. L5-S1: Unremarkable Sacrum: The visualized SI joints are unremarkable. Right upper pole renal cyst. MRI/Spine Lumbar (Routine) IMPRESSION: Mild degenerative changes resulting in up to moderate central canal narrowing at L2-3. No neural foraminal stenosis. Reading Location: [facility] CC: OMER Shen; Dr. Ganga Nunez MD Buggy Driver: Signed Normal [facility] CNOVon 10-28-2024 CNOV [address] [facility] UA DIP, URINE (POC)on 2024 BILIRUBIN UA (POCT) Negative Negative [facility] CLARITY UA (POCT) Clear [facility] COLOR UA (POCT) Yellow [facility] GLUCOSE UA (POCT) Negative Negative mg/dL [facility] Hemoglobin Ql (U) Moderate Abnormal Negative [facility] Interpretation and review of laboratory results Abnormal [facility] KETONE UA (POCT) Negative Negative [facility] LEUK[facility]A (POCT) Trace Abnormal Negative [facility] NITRITE UA (POCT) Negative Negative [facility] PH UA (POCT) 6 4.5 - 8.0 [facility] Protein Ql (U) Negative Negative mg/dL [facility] SPECIFIC GRAVITY UA (POCT) 1.02 1.005 - 1.030 [facility] UROBILINOGEN UA (POCT) 0.2 Normal E.U./dL [facility] Location:[facility], [address] [place], [address] [facility] POINT OF CARE [facility] L/S Spine Min 4 Viewson 10-05 L/S Spine Min 4 Views [facility] [address] [place] [address] L/S Spine Min 4 Views MR#: [id number] Acct: [id number] Name: KRISTINA BURCH Rep #: [id number] : 1960 F 64 From: Paras Terry PCP: Dr. Ganga Nunez MD Status: DEP AMB Study: L/S Spine Min 4 Views Date of Exam: 10/24/24 Exam# [id number] Ordering Dr: Lori Willams PROCEDURE: Lumbar spine radiographs REASON FOR EXAM: Pain TECHNIQUE: Four views of the lumbar spine COMPARISON: None. 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 Vertebral body heights are within normal limits. Minimal levoscoliosis. Tiax-dd-ltswxecl multilevel disc space narrowing, greatest at L5-S1. Gozf-si-afztbyir multilevel facet arthrosis, greatest from L4 through S1. 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 Sacroiliac joints are within normal limits. Negative for abnormal motion. Reading Location: [place] CC: OMER Shen; Dr. Ganga Nunez MD Buggy Driver: Signed Normal [facility] Orthopedic Visit Reporton Orthopedic Visit Report [facility] [address] [place] [address] [address] [place] [address] OFFICE VISIT Date of Service: 10/24/24 MR#: [id number] Acct: [id number] Name: KRISTINA BURCH Rep #: [id number] : 1960 Provider: OMER Shen Age/Sex: 64/F Location: [facility] Status: Signed Intake Vital Signs 09/23/24 13:31 10/24/24 13:25 Height 5 ft 8 in 5 ft 8 in Weight: 199 lb 2 oz BMI 30.2 Intake Visit Reasons: LUMBAR SPINE Allergies oxycodone Allergy (Verified 10/24/24 13:26) Swelling hydromorphone (From Dilaudid) Adverse Reaction (Verified 10/24/24 13:26) Other nabumetone (From Relafen) Adverse Reaction (Verified 10/24/24 13:26) Nausea Sulfa (Sulfonamide Antibiotics) Adverse Reaction (Verified 10/24/24 13:26) Nausea tramadol HCl (From Ultram) Adverse Reaction (Verified 10/24/24 13:26) Nausea Medications ???Medication ???Instructions ???Recorded ???Confirmed ???Type multivitamin with folic acid 400 1 tab PO DAILY 06/17/17 10/24/24 H istory mcg tablet albuterol sulfate 90 mcg/actuation 1 inh inhalation Q6H PRN shortne ss 05/31/21 10/24/24 Rx aerosol inhaler of breath or wheezing #8.5 grams trazodone 100 mg tablet 100 mg PO QHS 10/24/21 10/24/24 Hi story cholecalciferol (vitamin D3) 125 10,000 unit PO DAILY 01/25/2210/05 History mcg (5,000 unit) tablet azelastine 137 mcg (0.1 %) nasal 2 spray intranasal BID PRN 2 10/24/24 History spray ALLERGIES clonazepam 0.5 mg tablet (Klonopin) 0.5 mg PO QHS #30 tabs 03/18/24 10/24/24 Rx fluoxetine 40 mg capsule 40 mg PO DAILY 03/31/24 10/24/24 H istory celecoxib 200 mg capsule 200 mg PO DAILY 05/28/24 10/24/24 History budesonide-formoterol HFA 160 2 puff inhalation BID 06/17/24 History mcg-4.5 mcg/actuation aerosol inhaler (Symbicort) folic acid 1 mg tablet 1 mg PO QDAY 06/17/24 10/24/24 His tory hydrochlorothiazide 25 mg tablet 25 mg PO QDAY PRN HTN 06/17/24 History methotrexate sodium 2.5 mg tablet 2.5 mg PO REYES 06/17/24 10/24/24 Hi story pantoprazole 40 mg tablet,delayed 40 mg PO BID #60 tabs 10/08/24 Rx release atorvastatin 40 mg tablet mg PO DAILY 10/24/24 10/24/24 Hist ory fluoxetine 20 mg capsule 20 mg PO DAILY 10/24/24 10/24/24 H istory metoprolol succinate 100 mg 50 mg PO QHS PRN Elevated blood 10/24/24 History tablet,extended release 24 hr pressure Have you fallen in the past year?: No PFSH Medical History Cancer DVT (deep venous thrombosis) Migraine headache Former smoker Shortness of breath on exertion Rheumatoid arthritis Wears glasses Post-menopausal Depression Alcohol use Arthritis High cholesterol Easy bruising Excessive bleeding Neck pain Restless legs History of IBS History of diverticulitis Heartburn Gastric reflux Non-smoker CPAP (continuous positive airway pressure) dependence On home oxygen therapy Leg cramps Fibromyalgia History of stress test Cardiology follow-up encounter Hx of hydrocephalus History of tennis elbow Nonrheumatic aortic (valve) insufficiency Acute respiratory failure with hypoxia COVID-19 Valvular heart disease Non-rheumatic tricuspid valve insufficiency Essential hypertension Tricuspid insufficiency Thoracic aneurysm without mention of rupture Hyperlipidemia Abnormal electrocardiogram Nonrheumatic mitral valve disorder, unspecified Nonrheumatic aortic valve disorder, unspecified Abnormal echocardiogram Ascending aortic aneurysm Anxiety Diverticulitis Surgical History History of colonoscopy History of esophagogastroduodenosco py (EGD) History of hip replacement Hx of shoulder surgery Hx of appendectomy Hx of tubal ligation Hx of rotator cuff surgery History of hernia repair History of colon surgery ( 10/2017) Family History Father CAD (coronary artery disease) Mother aneursym Social History Smoking Status: Former smoker alcohol intake: never substance use type: does not use caffeine: Yes Type: tea Number of servings: 1 what type of physical activity do you participate in: walking frequency: daily duration: < 15 minutes/day seatbelt use: always do you feel safe at home: Yes HPI LUMBAR SPINE Details: This documentation accurately reflects the service provided and the decisions made by me, OMER Shen 10/24/24 1323. Part of today???s visit was documented by Gardenia ANNE, acting as scribe. KRISTINA BURCH is a 64 year old F here today NEW patient for low back pain. She was referred by [facility]. She has 2 years of ba (more content not included)... Normal [facility] Absolute neutrophil countOrd ered By: Phillip Cortez on 10-13-2024 Neutrophils (Bld) [#/Vol] 3.6 10*3/uL 2.0-7.7 [facility] Basophil percentageOrdered B y: Phillip Cortez on 10-13-2024 Basophils/100 WBC (Bld) 0.6 % 0-1 [facility] C-reactive protein measureme nt by high sensitivity methodOrdered By: Phillip Cortez on 10-13-2024 C-Reactive Protein Extended Range 4.04 mg/L High 0.0-3.0 [facility] Comment on above: C-Reactive Protein ( CRP) provides useful information for thediagnosis, therapy and monitoring of inflammatory processesand associated diseases. For the evaluation of Relative Riskfor Cardiovascular Disease, a High Sensitivity CRP (HSCRP)should be ordered. CBC W/Diff, Automatedon 02- 0-2024 Absolute Lymph 2.14 X10 3/uL Normal 0.83-4.51 [facility] Comment on above: Performed By: #### L 400.0001 #### [facility] [address] [place], [address] Absolute Neut 3.6 X10 3/uL Normal 2.0-7.7 [facility] Comment on above: Performed By: #### L 400.0001 #### [facility] [address] [place], [address] Basophils/100 WBC (Bld) 0.6 % Normal 0-1 [facility] Comment on above: Performed By: #### L 400.0001 #### [facility] [address] [place], [address] Eosinophils/100 WBC (Bld) 2.3 % Normal 0-5 [facility] Comment on above: Performed By: #### L 400.0001 #### [facility] [address] [place], [address] Erythrocyte distribution width (RBC) [Ratio] 13.1 % Normal 11.6-14.6 [facility] Comment on above: Performed By: #### L 400.0001 #### [facility] [address] [place], [address] Hematocrit (Bld) [Volume fraction] 33.9 % Low 37-47 [facility] Comment on above: Performed By: #### L 400.0001 #### [facility] [address] [place], [address] Hemoglobin (Bld) [Mass/Vol] 11.7 g/dL Low 12.0-15.0 [facility] Comment on above: Performed By: #### L 400.0001 #### [facility] [address] [place], [address] IG% 0.300 Normal 0.0-0.9 [facility] Comment on above: Result Comment: IG% - Immature Granulocytes (promyelocytes, myelocytes and metamyelocytes) > 1% indicates that a LEFT SHIFT is Present. Performed By: #### L 400.0001 #### [facility] [address] [place], [address] Lymphocytes/100 WBC (Bld) 32.3 % Normal 19-41 [facility] Comment on above: Performed By: #### L 400.0001 #### [facility] [address] [place], [address] MCH (RBC) [Entitic mass] 31.7 pg Normal 27.0-32.0 [facility] Comment on above: Performed By: #### L 400.0001 #### [facility] [address] [place], [address] MCHC (RBC) [Mass/Vol] 34.5 g/dL Normal 32-36 [facility] Comment on above: Performed By: #### L 400.0001 #### [facility] [address] [place], [address] MCV (RBC) [Entitic vol] 91.9 fL Normal 81-99 [facility] Comment on above: Performed By: #### L 400.0001 #### [facility] [address] [place], [address] Monocytes/100 WBC (Bld) 10.4 % High 0-10 [facility] Comment on above: Performed By: #### L 400.0001 #### [facility] [address] [place], [address] Neutrophils/100 WBC (Bld) 54.1 % Normal 47-70 [facility] Comment on above: Performed By: #### L 400.0001 #### [facility] [address] [place], [address] Nucleated RBC (Bld) [#/Vol] 0 10*3/uL Normal 0-5 [facility] Comment on above: Performed By: #### L 400.0001 #### [facility] [address] [place], [address] Platelet mean volume (Bld) [Entitic vol] 11.1 fL Normal 6.2-12.0 [facility] Comment on above: Performed By: #### L 400.0001 #### [facility] [address] [place], [address] Platelets (Bld) [#/Vol] 237 10*3/uL Normal 150-450 [facility] Comment on above: Performed By: #### L 400.0001 #### [facility] [address] [place], [address] RBC (Bld) [#/Vol] 3.69 10*6/uL Low 4.2-5.4 [facility] Comment on above: Performed By: #### L 400.0001 #### [facility] [address] [place], [address] RDW SD 43.1 fl Normal 35.1-43.9 [facility] Comment on above: Performed By: #### L 400.0001 #### [facility] [address] [place], [address] WBC (Bld) [#/Vol] 6.6 10*3/uL Normal 4.4-11.0 [facility] Comment on above: Performed By: #### L 400.0001 #### [facility] [address] [place], [address] CNOVon 10-13-[address] CNOV [address] [facility] CRPon 10-13-2024 C-REACTIVE PROT 4.04 mg/L High 0.0-3.0 [facility] Comment on above: Result Comment: C-Re active Protein (CRP) provides useful information for the diagnosis, therapy and monitoring of inflammatory processes and associated diseases. For the evaluation of Relative Risk for Cardiovascular Disease, a High Sensitivity CRP (HSCRP) should be ordered. Performed By: #### L 400.0001 #### [facility] [address] [facility] [place], [place], [id number] Eosinophil percentageOrdered By: Phillip Cortez on 10-13-2024 Eosinophils/100 WBC (Bld) 2.3 % 0-5 [facility] Erythrocyte Sed Rateon 10-13 SED RATE 20 mm/hr Normal 0-30 [facility] Comment on above: Performed By: #### L 400.0001 #### [facility] [address] [facility] [place], [address] Erythrocyte distribution wid th ratioOrdered By: Phillip Cortez on 10-13-2024 Erythrocyte distribution width (RBC) [Ratio] 13.1 % 11.6-14.6 [facility] Erythrocyte distribution wid th standard deviationOrdered By: Phillip Cortez on 10-13-2024 Erythrocyte distribution width (RBC) [Entitic vol] 43.1 fL 35.1-43.9 [facility] Erythrocyte sedimentation ra teOrdered By: Phillip Cortez on 10-13-2024 ESR (Bld) [Velocity] 20 mm/h 0-30 [facility] Hematocrit Auto (Bld) [Volum e fraction]Ordered By: Phillip Cortez on 10-13-2024 Hematocrit (Bld) [Volume fraction] 33.9 % Low 37-47 [facility] Hemoglobin measurementOrdere d By: Phillip Cortez on 10-13-2024 Hemoglobin (Bld) [Mass/Vol] 11.7 g/dL Low 12.0-15.0 [facility] Immature granulocytes/100 WB C Auto (Bld)Ordered By: Phillip Cortez on 10-13-2024 Immature granulocytes/100 WBC (Bld) 0.300 % 0.0-0.9 [facility] Comment on above: IG% - Immature Granu locytes (promyelocytes, myelocytes and metamyelocytes) > 1% indicates that a LEFT SHIFT is Present. Lymphocytes Auto (Unsp spec) [#/Vol]Ordered By: Phillip Cortez on 10-13-2024 Lymphocytes (Bld) [#/Vol] 2.14 10*3/uL 0.83-4.51 [facility] Lymphocytes/100 WBC Auto (Un sp spec)Ordered By: Phillip Cortez on 10-13-2024 Lymphocytes/100 WBC (Bld) 32.3 % 19-41 [facility] MCV (mean corpuscular volume ) determinationOrdered By: Phillip Cortez on 10-13-2024 MCV (RBC) [Entitic vol] 91.9 fL 81-99 [facility] Mean corpuscular hemoglobin (MCH) determinationOrdered By: Phillip Cortez on 10-13-2024 MCH (RBC) [Entitic mass] 31.7 pg 27.0-32.0 [facility] Mean corpuscular hemoglobin concentration (MCHC) determinationOrdered By: Phillip Cortez on 10-13-2024 MCHC (RBC) [Mass/Vol] 34.5 g/dL 32-36 [facility] Mean platelet volume determi nationOrdered By: Phillip Cortez on 10-13-2024 Platelet mean volume (Bld) [Entitic vol] 11.1 fL 6.2-12.0 [facility] Monocyte percentageOrdered B y: Phillip Cortez on 10-13-2024 Monocytes/100 WBC (Bld) 10.4 % High 0-10 [facility] Neutrophil percentageOrdered By: Phillip Cortez on 10-13-2024 Neutrophils/100 WBC (Bld) 54.1 % 47-70 [facility] Nucleated red blood cell per centageOrdered By: Phillip Cortez on 10-13-2024 Nucleated RBC/100 WBC (Bld) [Ratio] 0 % 0-5 [facility] Platelet countOrdered By: St sandy Cortez on 10-13-2024 Platelets (Bld) [#/Vol] 237 10*3/uL 150-450 [facility] RBC Auto (Bld) [#/Vol]Ordere d By: Phillip Cortez on 10-13-2024 RBC (Bld) [#/Vol] 3.69 10*6/uL Low 4.2-5.4 [facility] White blood cell (WBC) count Ordered By: Phillip Cortez on 10-13-2024 WBC (Bld) [#/Vol] 6.6 10*3/uL 4.4-11.0 [facility] CNOVon 10-02-2024 CNOV [address] [facility] CNPNon 10-01-[address]N [address] [facility] DBT Breast - bilateral diagn ostic for implanton 10-01-2024 Radiology Study observation (narrative) [facility] IMPRESSION: There is no mammographic evidence of malignancy in either breast. Return to annual screening mammogram is recommended. Annual mammogram will be due in 11 months. BI-RADS Category 1: Negative RISK: Based on the Tyrer-Cuzick (TC) risk assessment model, this patient has a 4.9% lifetime risk of developing breast cancer, meaning they are at average risk for developing breast cancer. However, this is only an estimate based on available history provided on the patient's questionnaire. We encourage all patients to talk with their providers about these results, further recommendations for managing breast health, and appropriate supplemental screening options if the patient has dense breast tissue. Interpreting Radiologist: Shilpi Alcantar M.D. Electronically signed on: 10/01/2024 Buggy Driver: EUNICE Transcribe Date/Time: Oct 01 2024 1:07P Dictated by: SHILPI ALCANTAR MD This examination was interpreted and the report reviewed and electronically signed by: SHILPI ALCANTAR MD on Oct 01 2024 1:52PM [facility] DIVISION OF RADIOLOGY * * *Final Report* * * DATE OF EXAM: Oct 01 2024 1:28PM [facility] 0627 - SANJUANA MARINA EDWARDS / PROCEDURE REASON: Abnormal mammogram * * * * Physician Interpretation * * * * RESULT: [place] [address] #[id number] - SANJUANA MARINA WELLSO ALLA HISTORY: Patient is 64 years old and is seen for diagnostic evaluation of abnormal mammogram in both breasts. Patient states no personal history of breast cancer. Patient states no personal history of other cancers. COMPARISON STUDIES: The present examination has been compared to prior imaging studies dated 09/23/2019 (mammogram), 04/14/2021 (mammogram), 04/27/2022 (mammogram), 06/08/2023 (mammogram) and 08/11/2024 (mammogram). MAMMOGRAM TECHNIQUE: The study was acquired using full field digital technology and interpreted from soft copy. Digital Breast Tomosynthesis (DBT) images were obtained and used to assist in the interpretation of this examination. MAMMOGRAM FINDINGS: There are scattered areas of fibroglandular density. Questioned asymmetry in the left breast is noted with a mole marker on the current exam, representing benign skin lesion. Asymmetry in the right breast is not reproduced on additional imaging, presumably representing superimposed fibroglandular tissue. No suspicious masses, calcifications or other abnormalities are seen in either breast. There are no significant interval changes. DIVISION OF RADIOLOGY Provider, [facility] - 10/01/2024 * * *Final Report* * * DATE OF EXAM: Oct 01 2024 1:28PM [facility] 0627 - SANJUANA DIAG W GENNA ALLA / PROCEDURE REASON: Abnormal mammogram * * * * Physician Interpretation * * * * RESULT: [place] [address] #[id number] - SANJUANA DIAG W GENNA ALLA HISTORY: Patient is 64 years old and is seen for diagnostic evaluation of abnormal mammogram in both breasts. Patient states no personal history of breast cancer. Patient states no personal history of other cancers. COMPARISON STUDIES: The present examination has been compared to prior imaging studies dated 09/23/2019 (mammogram), 04/14/2021 (mammogram), 04/27/2022 (mammogram), 06/08/2023 (mammogram) and 08/11/2024 (mammogram). MAMMOGRAM TECHNIQUE: The study was acquired using full field digital technology and interpreted from soft copy. Digital Breast Tomosynthesis (DBT) images were obtained and used to assist in the interpretation of this examination. MAMMOGRAM FINDINGS: There are scattered areas of fibroglandular density. Questioned asymmetry in the left breast is noted with a mole marker on the current exam, representing benign skin lesion. Asymmetry in the right breast is not reproduced on additional imaging, presumably representing superimposed fibroglandular tissue. No suspicious masses, calcifications or other abnormalities are seen in either breast. There are no significant interval changes. IMPRESSION IMPRESSION: There is no mammographic evidence of malignancy in either breast. Return to annual screening mammogram is recommended. Annual mammogram will be due in 11 months. BI-RADS Category 1: Negative RISK: Based on the Tyrer-Cuzick (TC) risk assessment model, this patient has a 4.9% lifetime risk of developing breast cancer, meaning they are at average risk for developing breast cancer. However, this is only an estimate based on available history provided on the patient's questionnaire. We encourage all patients to talk with their providers about these results, further recommendations for managing breast health, and appropriate supplemental screening options if the patient has dense breast tissue. Interpreting Radiologist: Shilpi Alcantar M.D. Electronically signed on: 10/01/2024 Buggy Driver: EUNICE Transcribe Date/Time: Oct 01 2024 1:07P Dictated by: SHILPI ALCANTAR MD This examination was interpreted and the report reviewed and electronically signed by: SHILPI ALCANTAR MD on Oct 01 2024 1:52PM EST [facility] DBT Breast - bilateral diagn ostic for implantOrdered By: [facility] Provider on 10-01-2024 [facility] SANJUANA DIAG W GENNA BILon 2024 SANJUANA DIAG W GENNA ALLA Normal [facility] 25(OH)D3 SerPl-mCncon 2024 25-hydroxyvitamin D3 [Mass/Vol] 51.9 ng/mL Normal 31.0-80.[address] [facility] Comment on above: Order Comment: Speci men Type: BLOOD SPECIMENOrdering Facility: [facility] Address: [address] [place] [address] Performed By: #### 1 989-3 ####[facility] LABCLIA [id number] [place] [address] [place] CBC W Auto Differential pane l (Bld)on 09-30-2024 Basophils (Bld) [#/Vol] 0.03 10*3/uL Normal <0.[address] [facility] Comment on above: Order Comment: Speci men Type: BLOOD SPECIMENOrdering Facility: [facility] Address: [address] [place] [address] Performed By: #### 5 7021-8 ####[facility] LABCLIA [id number] [place] [address] [place] Basophils/100 WBC (Bld) 0.3 % Normal [facility] Comment on above: Order Comment: Speci men Type: BLOOD SPECIMENOrdering Facility: [facility] Address: [address] [place] [address] Performed By: #### 5 7021-8 ####[facility] LABCLIA [id number] [place] [address] [place] Differential cell count method Nom (Bld) Auto Normal [facility] Comment on above: Order Comment: Speci men Type: BLOOD SPECIMENOrdering Facility: [facility] Address: [address] [place] [address] Performed By: #### 5 7021-8 ####[facility] LABCLIA [id number] [place] [address] [place] Eosinophils (Bld) [#/Vol] 0.10 10*3/uL Normal <0.[address] [facility] Comment on above: Order Comment: Speci men Type: BLOOD SPECIMENOrdering Facility: [facility] Address: [address] [place] [address] Performed By: #### 5 7021-8 ####[facility] LABCLIA [id number] [place] [address] [place] Eosinophils/100 WBC (Bld) 1.1 % Normal [facility] Comment on above: Order Comment: Speci men Type: BLOOD SPECIMENOrdering Facility: [facility] Address: [address] [place] [address] Performed By: #### 5 7021-8 ####[facility] LABCLIA [id number] [place] [address] [place] Erythrocyte distribution width (RBC) [Ratio] 12.4 % Normal 11.5-15.[address] [facility] Comment on above: Order Comment: Speci men Type: BLOOD SPECIMENOrdering Facility: [facility] Address: [address] [place] [address] Performed By: #### 5 7021-8 ####[facility] LABIA [id number] [place] [address] [place] Hematocrit (Bld) [Volume fraction] 40.8 % Normal 36.0-46.[address] [facility] Comment on above: Order Comment: Speci men Type: BLOOD SPECIMENOrdering Facility: [facility] Address: [address] [place] [address] Performed By: #### 5 7021-8 ####[facility] LABIA [id number] [place] [address] [place] Hemoglobin (Bld) [Mass/Vol] 13.5 g/dL Normal 11.5-15.[address] [facility] Comment on above: Order Comment: Speci men Type: BLOOD SPECIMENOrdering Facility: [facility] Address: [address] [place] [address] Performed By: #### 5 7021-8 ####[facility] LABIA [id number] [place] [address] [place] Immature granulocytes (Bld) [#/Vol] 0.04 10*3/uL Normal <0.[address] [facility] Comment on above: Order Comment: Speci men Type: BLOOD SPECIMENOrdering Facility: [facility] Address: [address] [place] [address] Performed By: #### 5 7021-8 ####[facility] LABIA [id number] [place] [address] [place] Immature granulocytes/100 WBC (Bld) 0.4 % Normal [facility] Comment on above: Order Comment: Speci men Type: BLOOD SPECIMENOrdering Facility: [facility] Address: [address] [place] [address] Performed By: #### 5 7021-8 ####[facility] LABCLIA [id number] [place] [address] [place] Lymphocytes (Bld) [#/Vol] 2.10 10*3/uL Normal 1.00-4.[address] [facility] Comment on above: Order Comment: Speci men Type: BLOOD SPECIMENOrdering Facility: [facility] Address: [address] [place] [address] Performed By: #### 5 7021-8 ####[facility] LABCLIA [id number] [place] [address] [place] Lymphocytes/100 WBC (Bld) 22.2 % Normal [facility] Comment on above: Order Comment: Speci men Type: BLOOD SPECIMENOrdering Facility: [facility] Address: [address] [place] [address] Performed By: #### 5 7021-8 ####[facility] LABCLIA [id number] [place] [address] [place] MCH (RBC) [Entitic mass] 31.3 pg Normal 26.0-34.[address] [facility] Comment on above: Order Comment: Speci men Type: BLOOD SPECIMENOrdering Facility: [facility] Address: [address] [place] [address] Performed By: #### 5 7021-8 ####[facility] LABCLIA [id number] [place] [address] [place] MCHC (RBC) [Mass/Vol] 33.1 g/dL Normal 30.5-36.0 [facility] Comment on above: Order Comment: Speci men Type: BLOOD SPECIMENOrdering Facility: [facility] Address: [address] [place] [address] Performed By: #### 5 7021-8 ####[facility] LABCLIA [id number] [place] [address] [place] MCV (RBC) [Entitic vol] 94.4 fL Normal 80.0-100.[address] [facility] Comment on above: Order Comment: Speci men Type: BLOOD SPECIMENOrdering Facility: [facility] Address: [address] [place] [address] Performed By: #### 5 7021-8 ####[facility] LABCLIA [id number] [place] [address] [place] Monocytes (Bld) [#/Vol] 1.10 10*3/uL High <0.[address] [facility] Comment on above: Order Comment: Speci men Type: BLOOD SPECIMENOrdering Facility: [facility] Address: [address] [place] [address] Performed By: #### 5 7021-8 ####[facility] LABCLIA [id number] [place] [address] [place] Monocytes/100 WBC (Bld) 11.6 % Normal [facility] Comment on above: Order Comment: Speci men Type: BLOOD SPECIMENOrdering Facility: [facility] Address: [address] [place] [address] Performed By: #### 5 7021-8 ####[facility] LABCLIA [id number] [place] [address] [place] Neutrophils (Bld) [#/Vol] 6.08 10*3/uL Normal 1.45-7.[address] [facility] Comment on above: Order Comment: Speci men Type: BLOOD SPECIMENOrdering Facility: [facility] Address: [address] [place] [address] Performed By: #### 5 7021-8 ####[facility] LABCLIA [id number] [place] [address] [place] Neutrophils/100 WBC (Bld) 64.4 % Normal [facility] Comment on above: Order Comment: Speci men Type: BLOOD SPECIMENOrdering Facility: [facility] Address: [address] [place] [address] Performed By: #### 5 7021-8 ####[facility] LABCLIA [id number] [place] [address] [place] Nucleated RBC (Bld) [#/Vol] 10*3/uL Normal <0.[address] [facility] Comment on above: Order Comment: Speci men Type: BLOOD SPECIMENOrdering Facility: [facility] Address: [address] [place] [address] Performed By: #### 5 7021-8 ####[facility] LABCLIA [id number] [place] [address] [place] Nucleated RBC/100 WBC (Bld) [Ratio] 0.0 /100 WBC Normal [facility] Comment on above: Order Comment: Speci men Type: BLOOD SPECIMENOrdering Facility: [facility] Address: [address] [place] [address] Performed By: #### 5 7021-8 ####[facility] LABCLIA [id number] [place] [address] [place] Platelet mean volume (Bld) [Entitic vol] 12.0 fL Normal 9.0-12.[address] [facility] Comment on above: Order Comment: Speci men Type: BLOOD SPECIMENOrdering Facility: [facility] Address: [address] [place] [address] Performed By: #### 5 7021-8 ####[facility] LABCLIA [id number] [place] [address] [place] Platelets (Bld) [#/Vol] 184 10*3/uL Normal 150-[address] [facility] Comment on above: Order Comment: Speci men Type: BLOOD SPECIMENOrdering Facility: [facility] Address: [address] [place] [address] Result Comment: No c lot detected. Performed By: #### 5 7021-8 ####[facility] LABIA [id number] [place] [address] [place] RBC (Bld) [#/Vol] 4.32 10*6/uL Normal 3.90-5.20 [facility] Comment on above: Order Comment: Speci men Type: BLOOD SPECIMENOrdering Facility: [facility] Address: [address] [place] [address] Performed By: #### 5 7021-8 ####[facility] [id number] [place] [address] [place] WBC (Bld) [#/Vol] 9.45 10*3/uL Normal 3.70-11.00 [facility] Comment on above: Order Comment: Speci men Type: BLOOD SPECIMENOrdering Facility: [facility] Address: [address] [place] [address] Performed By: #### 5 7021-8 ####[facility] [id number] [place] [address] [place] CNOVon 09-30-2024 CNOV Normal [facility] CNPNon 09-30-2024 CNPN Normal [facility] Comprehensive metabolic 2000 panelon 09-30-2024 Albumin [Mass/Vol] 4.5 g/dL Normal 3.9-4.9 [facility] Comment on above: Order Comment: Speci men Type: BLOOD SPECIMENOrdering Facility: [facility] Address: [address] [place] [address] Performed By: #### L IPNF, 22979-3 ####[facility] LABIA [id number] [place] [address] [place] ALP [Catalytic activity/Vol] 133 U/L High 34-[address] [facility] Comment on above: Order Comment: Speci men Type: BLOOD SPECIMENOrdering Facility: [facility] Address: [address] [place], [place] [address] Performed By: #### L IPNF, 20448-9 ####[facility] LABCLIA [id number] [place] [address] [place] ALT [Catalytic activity/Vol] 18 U/L Normal 7-[address] [facility] Comment on above: Order Comment: Speci men Type: BLOOD SPECIMENOrdering Facility: [facility] Address: [address] [place] [address] Performed By: #### L IPNF, 90073-1 ####[facility] LABCLIA [id number] [place] [address] [place] Anion gap [Moles/Vol] 13 mmol/L Normal 8-15 [facility] Comment on above: Order Comment: Speci men Type: BLOOD SPECIMENOrdering Facility: [facility] Address: [address] [place] [address] Performed By: #### L IPNF, 44424-3 ####[facility] LABCLIA [id number] [place] [address] [place] AST [Catalytic activity/Vol] 18 U/L Normal 13-[address] [facility] Comment on above: Order Comment: Speci men Type: BLOOD SPECIMENOrdering Facility: [facility] Address: [address] [place] [address] Performed By: #### L IPNF, 54283-8 ####[facility] LABCLIA [id number] [place] [address] [place] Bilirubin [Mass/Vol] 0.3 mg/dL Normal 0.2-1.3 [facility] Comment on above: Order Comment: Speci men Type: BLOOD SPECIMENOrdering Facility: [facility] Address: [address] [place] [address] Performed By: #### L IPNF, 31916-4 ####[facility] LABCLIA [id number] [place] [address] [place] Calcium [Mass/Vol] 9.9 mg/dL Normal 8.5-10.2 [facility] Comment on above: Order Comment: Speci men Type: BLOOD SPECIMENOrdering Facility: [facility] Address: [address] [place] [address] Performed By: #### L IPNF, ####[facility] LABCLIA [id number] [place] [address] [place] Chloride [Moles/Vol] 102 mmol/L Normal 98-107 [facility] Comment on above: Order Comment: Speci men Type: BLOOD SPECIMENOrdering Facility: [facility] Address: [address] [place] [address] Performed By: #### L IPNF, 45364-5 ####[facility] LABCLIA [id number] [place] [address] [place] CO2 [Moles/Vol] 24 mmol/L Normal 22-[address] [facility] Comment on above: Order Comment: Speci men Type: BLOOD SPECIMENOrdering Facility: [facility] Address: [address] [place] [address] Performed By: #### L IPNF, 11606-7 ####[facility] LABCLIA [id number] [place] [address] [place] Creatinine [Mass/Vol] 0.82 mg/dL Normal 0.58-0.96 [facility] Comment on above: Order Comment: Speci men Type: BLOOD SPECIMENOrdering Facility: [facility] Address: [address] [place] [address] Performed By: #### L IPNF, 18116-1 ####[facility] LABCLIA [id number] [place] [address] [place] Creatinine and Glomerular filtration rate.predicted panel (S/P/Bld) 79 mL/min/1.73m??? Normal >=[address] [facility] Comment on above: Order Comment: Isaac greene Type: BLOOD SPECIMENOrdering Facility: [facility] Address: [address] [place] [address] Result Comment: Kristal mated Glomerular Filtration Rate (eGFR) is calculated using the 2020 CKD-EPI creatinine equation. This equation utilizes serum creatinine, sex, and age as parameters. The creatinine assay has traceable calibration to isotope dilution-mass spectrometry. Refer to KDIGO guidelines for clinical interpretation. In patients with unstable renal function, e.g. those with acute kidney injury, the eGFR may not accurately reflect actual GFR. Performed By: #### L SKYLAR, 62616-9 ####[facility] LABIA [id number] [place] [address] [place] Glucose [Mass/Vol] 96 mg/dL Normal 74-99 [facility] Comment on above: Order Comment: Isaac greene Type: BLOOD SPECIMENOrdering Facility: [facility] Address: [address] [place] [address] Result Comment: The [place] Diabetes Association (ADA) provides guidance for cutoff values for fasting glucose and random glucose. The ADA defines fasting as no caloric intake for at least 8 hours. Fasting plasma glucose results between 100 to 125 mg/dL indicate increased risk for diabetes (prediabetes).Fasting plasma glucose results greater than or equal to 126 mg/dL meet the criteria for diagnosis of diabetes. In the absence of unequivocal hyperglycemia, results should be confirmed by repeat testing. In a patient with classic symptoms of hyperglycemia or hyperglycemic crisis, random plasma glucose results greater than or equal to 200 mg/dL meet the criteria for diagnosis of diabetes.Reference: Standards of Medical Care in Diabetes 2016, [place] [employer]. Diabetes Care. 2016.39(Suppl 1). Performed By: #### L SKYLAR, 05009-0 ####[facility] LABIA [id number] [place] [address] [place] Potassium [Moles/Vol] 4.1 mmol/L Normal 3.7-5.1 [facility] Comment on above: Order Comment: Isaac greene Type: BLOOD SPECIMENOrdering Facility: [facility] Address: [address] [place] [address] Performed By: #### L IPNF, 96166-0 ####[facility] LABCLIA [id number] [place] [address] [place] Protein [Mass/Vol] 7.3 g/dL Normal 6.3-8.0 [facility] Comment on above: Order Comment: Speci men Type: BLOOD SPECIMENOrdering Facility: [facility] Address: [address] [place] [address] Performed By: #### L IPNF, 95453-0 ####[facility] LABCLIA [id number] [place] [address] [place] Sodium [Moles/Vol] 139 mmol/L Normal 136-144 [facility] Comment on above: Order Comment: Speci men Type: BLOOD SPECIMENOrdering Facility: [facility] Address: [address] [place] [address] Performed By: #### L IPNF, 11894-1 ####[facility] LABCLIA [id number] [place] [address] [place] Urea nitrogen [Mass/Vol] 15 mg/dL Normal 7-[address] [facility] Comment on above: Order Comment: Speci men Type: BLOOD SPECIMENOrdering Facility: [facility] Address: [address] [place] [address] Performed By: #### L IPNF, 74680-3 ####[facility] LABCLIA [id number] [place] [address] [place] HbA1c (Bld)on 09-30-2024 Average glucose Estimated from glycated hemoglobin (Bld) [Mass/Vol] 120 mg/dL Normal [facility] Comment on above: Order Comment: Speci men Type: BLOOD SPECIMENOrdering Facility: [facility] Address: [address] [place] [address] Result Comment: eAG: (Estimated average glucose) is a calculated value from HgbA1c and is premium service representative of the average blood glucose level in the last 2-3 month period. Performed By: #### 5 5454-3 ####[facility] LABCLIA [id number] [place] [address] [place] HbA1c (Bld) [Mass fraction] 5.8 % High 4.3-5.[address] [facility] Comment on above: Order Comment: Isaac greene Type: BLOOD SPECIMENOrdering Facility: [facility] Address: [address] [place] [address] Result Comment: [place] Diabetes Association guidelines indicate that patients with HgbA1c in the range 5.7-6.4% are at increased risk for development of diabetes, and intervention by lifestyle modification may be beneficial. HgbA1c greater or equal to 6.5% is considered diagnostic of diabetes. Performed By: #### 5 5454-3 ####[facility] LABIA [id number] [place] [address] [place] LIPID PANEL, NONFASTINGon Cholesterol [Mass/Vol] 228 mg/dL High <[address] [facility] Comment on above: Order Comment: Isaac greene Type: BLOOD SPECIMENOrdering Facility: [facility] Address: [address] [place] [address] Result Comment: <200 mg/dL, Desirable 200-239 mg/dL, Borderline high>239 mg/dL, High Performed By: #### L SKYLAR, 68812-6 ####[facility] LABIA [id number] [address] STATES OF [facility] HDL CHOLESTEROL, NF 40 mg/dL Normal >39 [facility] Comment on above: Order Comment: Isaac greene Type: BLOOD SPECIMENOrdering Facility: [facility] Address: [address] [place] [address] Result Comment: 40-5 9 mg/dL, Acceptable>59 mg/dL, High: Negative risk factor for coronary heart disease<40 mg/dL, Low: Positive risk factor for coronary heart disease Performed By: #### L SKYLAR, 88139-3 ####[facility] LABCLIA [id number] [place] [address] [place] LDL CHOLESTEROL, NF 118 mg/dL High <100 [facility] Comment on above: Order Comment: Speci men Type: BLOOD SPECIMENOrdering Facility: [facility] Address: [address] [place] [address] Result Comment: <100 mg/dL, Optimal 100-129 mg/dL, Near optimal/above optimal 130-159 mg/dL, Borderline high 160-189 mg/dL, High>189 mg/dL, Very highSecondary prevention optimal LDL Cholesterol levels are recommended to be < 70 mg/dL Performed By: #### L SKYLAR, 44264-7 ####[facility] LABCLIA [id number] [place] [address] [place] LDL/HDL RATIO, NF 2.95 mg/dL High <2.54 [facility] Comment on above: Order Comment: Speci men Type: BLOOD SPECIMENOrdering Facility: [facility] Address: [address] [place] [address] Result Comment: Larry vasquez:1. National Cholesterol Education Program ATP III Guideline At-A-Glance Quick Desk Reference: National Heart, Lung, and Blood Elkins. National Institutes of Health. 2001: NIH Publication No. 01-3305.2. An International Atherosclerosis Society position paper: global recommendations for the management of dyslipidemia: executive summary, Atherosclerosis. 2014: 232(2):410-413. Performed By: #### L SKYLAR, 87406-5 ####[facility] LABIA [id number] [place] [address] [place] NON HDL CHOL, NF 188 mg/dL High <130 [facility] Comment on above: Order Comment: Speci men Type: BLOOD SPECIMENOrdering Facility: [facility] Address: [address] [place] [address] Result Comment: <130 mg/dL, Optimal 130-159 mg/dL, Near optimal/above optimal 160-189 mg/dL, Borderline high 190-219 mg/dL, High>219 mg/dL, Very highSecondary prevention optimal non HDL Cholesterol levels are recommended to be <100 mg/dL Performed By: #### L SKYLAR, ####[facility] LABCLIA [id number] [place] [address] [place] T CHOL/HDL RATIO NF 5.70 mg/dL High <5.10 [facility] Comment on above: Order Comment: Speci men Type: BLOOD SPECIMENOrdering Facility: [facility] Address: [address] [place] [address] Performed By: #### L SKYLAR, ####[facility] LABCLIA [id number] [place] [address] [place] TRIGLYCERIDES, NF 348 mg/dL High <150 [facility] Comment on above: Order Comment: Speci men Type: BLOOD SPECIMENOrdering Facility: [facility] Address: [address] [place] [address] Result Comment: <150 mg/dL, Normal 150-199 mg/dL, Borderline high 200-499 mg/dL, High>499 mg/dL, Very high Performed By: #### L SKYLAR, ####[facility] LABCLIA [id number] [place] [address] [place] VLDL CHOLESTEROL, NF 70 mg/dL High <30 [facility] Comment on above: Order Comment: Speci men Type: BLOOD SPECIMENOrdering Facility: [facility] Address: [address] [place] [address] Performed By: #### L SKYLAR, ####[facility] LABCLIA [id number] [place] [address] [place] XR CHEST 2V FRONTAL/LATon XR CHEST 2V FRONTAL/LAT Normal [facility] XR Chest PA and Lateralon IMPRESSION: Stable exam. Buggy Driver: SANDRA Transcribe Date/Time: Sep 30 2024 11:07A Dictated by : SREEDHAR MELENDEZ MD This examination was interpreted and the report reviewed and electronically signed by: SREEDHAR MELENDEZ MD on Sep 30 2024 11:08AM [facility] DIVISION OF RADIOLOGY * * *Final Report* * * DATE OF EXAM: Sep 30 2024 11:06AM WOX [id number] - XR CHEST 2V FRONTAL/LAT / PROCEDURE REASON: Productive cough * * * * Physician Interpretation * * * * EXAMINATION: CHEST RADIOGRAPH (2 VIEW FRONTAL & LATERAL) CLINICAL HISTORY: Productive cough MQ: [id number] EXAM DATE/TIME: 09/30/2024 11:06 AM COMPARISON: Chest x-ray on 09/16/2024 RESULT: Lines, tubes, and devices: None. Lungs and pleura: Mild left basilar atelectasis is visualized, associated with large left-sided pericardial fat pad. No consolidation. No lung mass. No pleural effusion. No pneumothorax. Cardiomediastinal silhouette: Stable cardiomediastinal silhouette. Bones and soft tissues: Status post bilateral shoulder reverse arthroplasty. There are degenerative changes in the spine. DIVISION OF RADIOLOGY Provider, [facility] [facility] - 09/30/2024 * * *Final Report* * * DATE OF EXAM: Sep 30 2024 11:06AM WOX 5291 - XR CHEST 2V FRONTAL/LAT / PROCEDURE REASON: Productive cough * * * * Physician Interpretation * * * * EXAMINATION: CHEST RADIOGRAPH (2 VIEW FRONTAL & LATERAL) CLINICAL HISTORY: Productive cough MQ: [id number] EXAM DATE/TIME: 09/30/2024 11:06 AM COMPARISON: Chest x-ray on 09/16/2024 RESULT: Lines, tubes, and devices: None. Lungs and pleura: Mild left basilar atelectasis is visualized, associated with large left-sided pericardial fat pad. No consolidation. No lung mass. No pleural effusion. No pneumothorax. Cardiomediastinal silhouette: Stable cardiomediastinal silhouette. Bones and soft tissues: Status post bilateral shoulder reverse arthroplasty. There are degenerative changes in the spine. IMPRESSION IMPRESSION: Stable exam. Buggy Driver: SANDRA Transcribe Date/Time: Sep 30 2024 11:07A Dictated by : SREEDHAR MELENDEZ MD This examination was interpreted and the report reviewed and electronically signed by: SREEDHAR MELENDEZ MD on Sep 30 2024 11:08AM EST [facility] Radiology Study observation (narrative) [facility] XR Chest PA and LateralOrder ed By: Ccf Provider on 09-30-2024 [facility] CNOVon 09-28-2024 CNOV [address] [facility] CNPNon 09-26-2024 CNPN [address] [facility] Colonoscopy Reporton 025 Colonoscopy Report [facility] Medical Records Department [address] [place] [address] Colonoscopy Report MR#: [id number] Acct: [id number] Name: KRISTINA BURCH Rep #: [id number] : 1960 64 From: Magdi Tam DO PCP: Dr. Ganga Nunez MD Status:[facility] Patient Name: Kristina Burch Procedure Date: 09/23/2024 2:32 PM Date of : 1960 Age: 64 Procedure: Colonoscopy Indications: Clinically significant diarrhea of unexplained origin Providers: Magdi Tam DO Referring MD: Ganga Nunez MD Medicines: Monitored Anesthesia Care Patient Profile: This is a 64 year old female. Patient has symptoms of chronic abdominal cramping, chronic abdominal distention, chronic epigastric abdominal pain, chronic dyspepsia and chronic heartburn. Last Colonoscopy: several years ago. Complications: No immediate complications. Procedure: Pre-Anesthesia Assessment: - Prior to the procedure, a History and Physical was performed, and patient medications and allergies were reviewed. The patient is competent. The risks and benefits of the procedure and the sedation options and risks were discussed with the patient. All questions were answered and informed consent was obtained. Patient identification and proposed procedure were verified by the physician in the pre-procedure area. Mental Status Examination: alert and oriented. Airway Examination: normal oropharyngeal airway and neck mobility. Respiratory Examination: clear to auscultation. CV Examination: normal. Prophylactic Antibiotics: The patient does not require prophylactic antibiotics. Prior Anticoagulants: The patient has taken no anticoagulant or antiplatelet agents except for NSAID medication. ASA Grade Assessment: II - A patient with mild systemic disease. After reviewing the risks and benefits, the patient was deemed in satisfactory condition to undergo the procedure. The anesthesia plan was to use monitored anesthesia care (MAC). Immediately prior to administration of medications, the patient was re-assessed for adequacy to receive sedatives. The heart rate, respiratory rate, oxygen saturations, blood pressure, adequacy of pulmonary ventilation, and response to care were monitored throughout the procedure. The physical status of the patient was re-assessed after the procedure. After I obtained informed consent, the scope was passed under direct vision. Throughout the procedure, the patient's blood pressure, pulse, and oxygen saturations were monitored continuously. The Colonoscope was introduced through the anus and advanced to the terminal ileum. The colonoscopy was performed without difficulty. The patient tolerated the procedure well. The quality of the bowel preparation was adequate. The terminal ileum, ileocecal valve, appendiceal orifice, and rectum were photographed. Scope In: 2:36:15 PM Scope Withdrawal Time 0 hours 6 minutes 41 seconds Scope Out: 2:44:29 PM Total Procedure Duration Time 0 hours 8 minutes 14 seconds Findings: The perianal and digital rectal examinations were normal. There was evidence of a prior end-to-end colo-colonic anastomosis in the sigmoid colon. This was patent and was characterized by healthy appearing mucosa. An area of mildly congested mucosa was found in the sigmoid colon, in the descending colon, at the splenic flexure, in the transverse colon and in the ascending colon. Biopsies were taken with a cold forceps for histology. Verification of patient identification for the specimen was done. Estimated blood loss was minimal. Localized mild inflammation characterized by congestion (edema) and erythema was found in the terminal ileum. Biopsies were taken with a cold forceps for histology. Verification of patient identification for the specimen was done. Estimated blood loss was minimal. Impression: - Patent end-to-end colo-colonic anastomosis, characterized by healthy appearing mucosa. - Congested mucosa in the sigmoid colon, in the descending colon, at the splenic flexure, in the transverse colon and in the ascending colon. Biopsied. - Mild inflammation was found in the ileum secondary to ileitis. Biopsied. Recommendation: - Discharge patient to home. - Resume previous diet. - Continue present medications. - Await pathology results. - Repeat colonoscopy in 5 years for surveillance. Procedure Code(s): --- Professional --- 06832, Colonoscopy, flexible; with biopsy, single or multiple CPT copyright 2021 [employer]. All rights reserved. The codes documented in this report are preliminary and upon procurement officer review may be revised to meet current compliance requirements. Magdi Tam DO 09/23/2024 3:14:41 PM This report has been signed electronically. Number of Addenda: 0 Note Initiated On: 09/23/2024 2:32 PM 09/23/24 1514 (more content not included)... Normal [facility] EGD Reporton 09-23-2024 EGD Report [facility] Medical Records Department [address] [place] [address] EGD Report MR#: [id number] Acct: [id number] Name: KRISTINA BURCH Rep #: [id number] : 1960 64 From: Magdi Tam DO PCP: Dr. Ganga Nunez MD Status:[facility] Patient Name: Kristina Burch Procedure Date: 09/23/2024 2:02 PM Date of : 1960 Age: 64 Procedure: Upper GI endoscopy Indications: Epigastric abdominal pain Providers: Magdi Tam DO Referring MD: Ganga Nunez MD Medicines: Monitored Anesthesia Care Patient Profile: This is a 64 year old female. Patient has symptoms of chronic abdominal cramping, chronic abdominal distention, chronic epigastric abdominal pain, chronic dyspepsia and chronic heartburn. Complications: No immediate complications. Procedure: Pre-Anesthesia Assessment: - Prior to the procedure, a History and Physical was performed, and patient medications and allergies were reviewed. The patient is competent. The risks and benefits of the procedure and the sedation options and risks were discussed with the patient. All questions were answered and informed consent was obtained. Patient identification and proposed procedure were verified by the physician in the pre-procedure area. Mental Status Examination: alert and oriented. Airway Examination: normal oropharyngeal airway and neck mobility. Respiratory Examination: clear to auscultation. CV Examination: normal. Prophylactic Antibiotics: The patient does not require prophylactic antibiotics. Prior Anticoagulants: The patient has taken no anticoagulant or antiplatelet agents except for NSAID medication. ASA Grade Assessment: II - A patient with mild systemic disease. After reviewing the risks and benefits, the patient was deemed in satisfactory condition to undergo the procedure. The anesthesia plan was to use monitored anesthesia care (MAC). Immediately prior to administration of medications, the patient was re-assessed for adequacy to receive sedatives. The heart rate, respiratory rate, oxygen saturations, blood pressure, adequacy of pulmonary ventilation, and response to care were monitored throughout the procedure. The physical status of the patient was re-assessed after the procedure. After obtaining informed consent, the endoscope was passed under direct vision. Throughout the procedure, the patient's blood pressure, pulse, and oxygen saturations were monitored continuously. The Colonoscope was introduced through the mouth, and advanced to the second part of duodenum. The upper GI endoscopy was accomplished without difficulty. The patient tolerated the procedure well. Scope In: 2:29:17 PM Scope Out: 2:32:22 PM Total Procedure Duration Time 0 hours 3 minutes 5 seconds Findings: The Z-line was irregular and was found 39 cm from the incisors. Biopsies were taken with a cold forceps for histology. Verification of patient identification for the specimen was done. Estimated blood loss was minimal. A medium-sized hiatal hernia was present. Suspect gastroparesis due to absence of peristalsis, patient symptoms and retained gastric contents. Patchy mildly erythematous mucosa without active bleeding and with no stigmata of bleeding was found in the duodenal bulb. Impression: - Z-line irregular, 39 cm from the incisors. Biopsied. - Medium-sized hiatal hernia. - Gastroparesis. - Erythematous duodenopathy. Recommendation: - Discharge patient to home. - Resume previous diet. - Continue present medications. - Await pathology results. -Consider gastric emptying study Procedure Code(s): --- Professional --- 83420, Esophagogastroduodenosco py, flexible, transoral; with biopsy, single or multiple CPT copyright 2021 [employer]. All rights reserved. The codes documented in this report are preliminary and upon procurement officer review may be revised to meet current compliance requirements. Magdi Tam DO 09/23/2024 3:12:03 PM This report has been signed electronically. Number of Addenda: 0 Note Initiated On: 09/23/2024 2:02 PM 09/23/24 1512 Date Magdi Mcgowan Signature: Date (if indicated) CC: Dr. Ganga Nunez MD; Magdi Tam DO Date Dictated: 09/23/24 1402 Date Transcribed: Buggy Driver: NITIN Signed Normal [facility] H Pylori (initial)on H Pylori (initial) ---- Patient Age/Sex Location Account Attending Physician KRISTINA BURCH 64/F EN [id number] Magdi Tam DO Specimen: [id number] Received: 09/24/24 Status: [facility]QUEL Gonzalez Num: [id number] Spec Type: IMMUNO Subm Dr: Magdi Tam DO PHYSICIAN INSTITUTION [place] [address] SPECIMEN INFORMATION: Tissue Source: A- Gastric antrum, C- Distal esophagus biopsy Clinical Info: Diarrhea, hematochezia Specimen Number: [id number] AThor CPT code: 79799u4,07004 METHODOLOGY: Deparaffinized sections of prefer/formalin-fixed tissue or PAP/DQ stained slides are incubated with monoclonal/polyclonal antibodies/oligonucleoti de probes. Localization is made via biotin free immunoperoxidase method. Appropriate controls are performed and reacted as expected. Results on target cell population are indicated in the following table: RESULTS: ANTIBODY / CLONE RESULT Block A H Pylori (polyclonal) negative Block C P53 (DO-7) negative (null pattern) Ki-67 (30-9) positive, low These tests were developed and their performance characteristics determined by [facility]. They may not have been cleared or approved by the U.S. Food and Drug Administration. The FDA has determined that such clearance or approval is not necessary. The above immunohistochemical/dual [place] markers are ordered and reviewed by the Pathologist. INTERPRETATION: A. Gastric antrum, biopsy: Negative for Helicobacter pylori organisms. C. Distal esophagus, biopsy: Negative for dysplasia. 09/26/2024 Signed (signature on file) Dr. Juan A Boo MD 09/26/24 1231 Normal [facility] Comment on above: Performed By: #### L 100.0600 #### [facility] [address] [facility]. [place], [place], [id number] MR/POSTOP.ANEcarolyn 09-23-2024 [facility]OP[facility] Medical Records Department [address] [place] [address] Anesthesia Postop Eval I 09/23/24 1456 MR#: [id number] Acct: [id number] Name: KRISTINA BURCH Rep #: [id number] : 1960 64 From: Ramone Schwartz PCP: Dr. Ganga Nunez MD Status:[facility] Y Race: C Location: [place] [address] Anesthesia: Postop Eval I Current Vital Signs Temperature: 97.2 F Pulse Rate: 67 Blood Pressure: 107/58 Respiratory Rate: 16 Pulse Ox: 95 Oxygen Delivery Method: Room Air Assessment Airway patent: Yes Spontaneous unlabored respirations: Yes Mental status: Asleep nausea: No Vomiting: No Anesthesia Complication: No Fluid Hydration Crystalloid volume administer (ml): 60 Total IV fluid infused: 60 Progress Note Anesthesia document: Postop Eval 1 completed: Yes 09/23/241456 Date Ramone Swann Signature: Date CC: Signed Normal [facility] MR/[id number] 09-23-2024 [facility] Medical Records Department [address] [place] [address] Anesthesia Postop Eval II 09/23/241942 MR#: [id number] Acct: [id number] Name: KRISTINA BURCH Rep #: [id number] : 1960 64 From: Konstantin Lynn MD PCP: Dr. Ganga Nunez MD Status:[facility] Y Race: C Location: EN Anesthesia Postop Eval I Sum Postop Eval Completion status Anesthesia document: Postop Eval 1 completed: Yes Anesthesia Postop Eval I Summary Anesthesia Postop Eval I Summary: Anesthesia Postop Eval I: Assessment Summary Airway patent Yes 09/23/24 14:57 [email or web address] Spontaneous unlabored Yes 09/23/24 14:57 [email or web address] respirations Mental status Asleep 09/23/24 14:57 [email or web address] nausea No 09/23/24 14:57 [email or web address] Vomiting No 09/23/24 14:57 [email or web address] Anesthesia Postop Eval I: Fluid Summary Crystalloid volume administer 60 09/23/24 14:57 [email or web address] (ml) Colloids volume administered ( ml) Blood Product volume administered (ml) Total IV fluid infused 60 09/23/24 14:57 [email or web address] Anesthesia Postop Eval I: Summary Notes Anesthesia Complication No 09/23/24 14:57 [email or web address] Anesthesia Complication Comment: Post-operative progress note Anesthesia: Postop Eval II Evaluation Mental status: Awake and Calm Pain Level: 0 nausea: No Vomiting: No Complications Anesthesia Complication: No 09/23/241943 Date Konstantin Lynn MD Cosigner Signature: Date CC: Signed Normal [facility] Special Stain Group Ion - Special Stain Group I ------ Patient Age/Sex Location Account Attending Physician KRISTINA BURCH 64/F EN [id number] Magdi Tam DO Specimen: [id number] Received: 09/24/24 Status: [facility]QU[facility] Gonzalez Num: [id number] Spec Type: Gastric Bx Subm Dr: Magdi Tam DO HEADER OPERATION: Colonoscopy with biopsy, EGD with biopsy PRE-OP DIAGNOSIS: Diarrhea, hematochezia TISSUE SUBMITTED: A- Gastric antrum biopsy, B- Duodenum biopsy, C- Distal esophagus biopsy,D- Terminal ileum biopsy, E- Random colon biopsy MICROSCOPIC DIAGNOSIS A. Gastric antrum, biopsy: Mild gastritis. See microscopic description and comment. B. Duodenum, biopsy: Fragments of duodenal mucosa, no pathologic diagnosis. C. Distal esophagus, biopsy: Fragments of gastroesophageal mucosa with focal intestinal metaplasia (goblet cell metaplasia), consistent with Kyle's esophagus. Chronic inflammation. Negative for dysplasia. See comment. D. Terminal ileum, biopsy: Fragments of small intestinal mucosa, no pathologic diagnosis. E. Colon, random biopsy: Fragments of colonic mucosa, no pathologic diagnosis. SJ.mr 09/25/2024 COMMENT A. The results of immunohistochemistry for Helicobacter pylori will be reported separately ([id number]). C. Alcian blue/PAS stain with matched control is used in the evaluation of the specimen. Immunohistochemistry ([id number]) for P53 and Ki-67 will be performed, and results will be reported separately. The specimen predominantly consists of gastric mucosa. MICROSCOPIC DESCRIPTION Slides are reviewed. A. The specimen shows fragments of gastric mucosa with chronic inflammatory cell infiltrates in the lamina propria consisting of lymphocytes and plasma cells, consistent with mild chronic gastritis. Patient Age/Sex Location Account Attending Physician KRISTINA BURCH 64/F EN [id number] Magdi Tam DO GROSS DESCRIPTION A. Received in fixative is one container labeled with the patient's name and designated Gastric antrum biopsy. The specimen consists of two irregular fragments of light pfeiffer soft tissue that in aggregate measure 0.6 x 0.4 x 0.2 cm. The specimen is totally submitted in one cassette. B. Received in fixative is one container labeled with the patient's name and designated Duodenum biopsy. The specimen consists of multiple irregular fragments of light pfeiffer soft tissue that in aggregate measure 1.1 x 0.3 x 0.2 cm. The specimen is totally submitted in one cassette. C. Received in fixative is one container labeled with the patient's name and designated Distal esophagus biopsy. The specimen consists of two irregular fragments of light pfeiffer soft tissue that in aggregate measure 0.8 x 0.3 x 0.2 cm. The specimen is totally submitted in one cassette. D. Received in fixative is one container labeled with the patient's name and designated Terminal ileum biopsy. The specimen consists of two irregular fragments of light pfeiffer soft tissue that in aggregate measure 0.9 x 0.3 x 0.2 cm. The specimen is totally submitted in one cassette. E. Received in fixative is one container labeled with the patient's name and designated Random colon biopsy. The specimen consists of multiple irregular fragments of light pfeiffer soft tissue that in aggregate measure 1.3 x 0.3 x 0.2 cm. The specimen is totally submitted in one cassette. 09/24/2024 TC:3 CPT:36832x9,68889 Patient Age/Sex Location Account Attending Physician KRISTINA BURCH 64/F EN [id number] Magdi Tam DO Signed (signature on file) Dr. Juan A Boo MD 09/26/24 0940 Normal [facility] Comment on above: Performed By: #### P SSI #### [facility] [address] [place], [address] CNPNon 09-22-2024 CNPN [address] [facility] CNPNon 09-19-2024 CNPN [address] [facility] BACTERIAL VAGINOSIS NAATon 0 09-18-2024 Lactobacillus crispatus+gasseri+tomasz senii + Gardnerella vaginalis + Atopobium vaginae rRNA MICHELLE+probe Ql (Vag fld) Not detected Normal Not detected [facility] Comment on above: Order Comment: Speci men Type: SWABOrdering Facility: [facility] Address: [address] [place] [address] Result Comment: Concepcion ected result: Previously reported as Indeterminate on 09/18/2024 at 9:53 PM EST. Performed By: #### Ambrocio GALLAGHER CVTV ####[facility] LABCLIA [id number] [place] [address] [place] LONA/TRICHOMONAS NAATon 0 09-18-2024 C. glabrata RNA MICHELLE+probe Ql (Vag fld) Not detected Normal Not detected [facility] Comment on above: Order Comment: Speci men Type: SWABOrdering Facility: [facility] Address: [address] [place] [address] Performed By: #### B ELLIOTT CVTV ####[facility] LABCLIA [id number] [place] [address] [place] Lona sp DNA MICHELLE+probe Ql (Vag fld) Not detected Normal Not detected [facility] Comment on above: Order Comment: Speci men Type: SWABOrdering Facility: [facility] Address: [address] [place] [address] Result Comment: The Lona species group target includes C. albicans, C. tropicalis, C. parapsilosis, and C. dubliniensis. Performed By: #### B VAMP, CVTV ####[facility] LABCLIA [id number] [place] [address] [place] T. vaginalis DNA MICHELLE+probe Ql (Unsp spec) Not detected Normal Not detected [facility] Comment on above: Order Comment: Speci men Type: SWABOrdering Facility: [facility] Address: [address] [place] [address] Performed By: #### B VAMP, CVTV ####[facility] LABCLIA [id number] [place] [address] [place] CNOVon 09-18-2024 CNOV [address] [facility] HIGH RISK HUMAN PAPILLOMA ADITI (HPV), PCR FOR DETECTION AND GENOTYPINGon 09-18-2024 HPV 16 Ag Ql (Unsp spec) Not detected Normal Not detected [facility] Comment on above: Order Comment: Speci men Type: FLUID SPECIMENOrdering Facility: [facility] Address: [address] [place] [address] Performed By: #### H PVHRT ####[facility] LABCLIA [id number] [place] [address] [place] HPV 18 Ag Ql (Unsp spec) Not detected Normal Not detected [facility] Comment on above: Order Comment: Speci men Type: FLUID SPECIMENOrdering Facility: [facility] Address: [address] [place] [address] Performed By: #### H PVHRT ####[facility] LABCLIA [id number] [place] [address] [place] HPV 31+33+35+39+45+51+52+ 56+58+59+66+68 DNA MICHELLE+probe Ql (Cvx) Detected Abnormal Not detected [facility] Comment on above: Order Comment: Speci men Type: FLUID SPECIMENOrdering Facility: [facility] Address: [address] [place] [place] [address] Result Comment: High Risk HPV Other Type includes HPV types 31, 33, 35, 39, 45, 51, 52, 56, 58, 59, 66 and 68. Performed By: #### H PVHRT ####[facility] LABCLIA [id number] [place] [id number] [place] MR/PAT.ANEon 09-18-2024 MR/PAT.ANE [facility] Medical Records Department [address] [place] [address] PAT - Anesthesia 09/18/24 1554 MR#: [id number] Acct: [id number] Name: KRISTINA BURCH Rep #: [id number] : 1960 64 From: Hugh Dupree MD PCP: Dr. Ganga Nunez MD Status:[facility] Y Race: C Location: EN Pre-Assessment Diagnosis/Proposed Procedure Planned Operative Procedure(s): EGD, CSCOPE Anesthesia History Anesthesia History - boot lace cutter machine: Anesthesia History - boot lace cutter machine Hx Hospitalization No 09/18/24 15:23 Any Problems With Anesthesia Yes: PONV 09/18/24 15:23 Cholinesterase deficiency No 09/18/24 15:23 You/Your Family Experience No 09/18/24 15:23 fever (hyperthermia) with Relationship Recent Exposure to Contagious No 06/18/23 08:27 Disease Does patient have nerve No 09/18/24 15:23 stimulator Patient instructed to have device shut off --Does patient have Pacemaker or ICD? When Was Last Pacemaker Check QUESTION #4 FULL TEXT: You/Your Family Experience fever (hyperthermia) with Anesthesia Last Oral Intake Last Oral intake: Last Oral Intake NPO since Meds taken in AM with sips of water? Meds patient instructed to take am of surgery PONV PONV - boot lace cutter machine: PONV - boot lace cutter machine Female Yes 09/18/24 15:23 HX of Motion Sickness No 09/18/24 15:23 HX of N/V After Surgery Yes 09/18/24 15:23 Non-Smoker No 09/18/24 15:23 Duration of Surgery greater No 09/18/24 15:23 than 60 minutes Number of Risk Factors 2 09/18/24 15:23 PONV Score Moderate Risk 09/18/24 15:23 Height Weight Height Weight: Anesthesia: Height Weight Height 5 ft 8 in 06/17/24 11:08 Respiratory Assessment Respiratory Assessment - boot lace cutter machine: Respiratory Tract Infection Hx - boot lace cutter machine Hx Respiratory Tract Infection Yes: CURRENTLY HAS SINUS 09/18/24 15:23 INFECTION ON ANTIBIOTIC 09/18 STOP Sleep Apnea STOP Sleep Apnea - boot lace cutter machine: STOP Sleep Apnea - boot lace cutter machine Hx Hypertension Yes: CONTROLLED WITH MED, 09/18/24 15:23 PRN MEDS Hx Sleep Apnea Yes 09/18/24 15:23 CPAP Yes 09/18/24 15:23 BIPAP No 09/18/24 15:23 Do you snore loudly (louder than talking or can be heard Do you often feel tired/ fatigued/ sleepy during daytime? Has anyone observed you stop breathing during sleep? STOP Results Positive 09/18/24 15:23 QUESTION #5 FULL TEXT : Do you snore loudly (louder than talking or can be heard through closed doors)? 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 Specify any problems Hx of Preganancy in last 3 N/A 09/18/24 15:23 Months Nurse Filling Out Transfusion NBUCHER 09/18/24 15:23 Questions: Date: 09/18/24 09/18/24 15:23 Time: 09/18/24 15:23 Patient unable to answer at this time (ie. confused, unrespo /Reproduction History /Reproductive History - boot lace cutter machine: /Reproductive Hx- boot lace cutter machine Hx Now Gestational Age (in weeks): EDC: Hx Hx Para Hx Section SAB No 06/05/23 15:06 PFSH Medical History Cancer DVT (deep venous thrombosis) Migraine headache Former smoker Shortness of breath on exertion Rheumatoid arthritis Wears glasses Post-menopausal Depression Alcohol use Arthritis High cholesterol Easy bruising Excessive bleeding Neck pain Restless legs History of IBS History of diverticulitis Heartburn Gastric reflux Non-smoker CPAP (continuous positive airway pressure) dependence On home oxygen therapy Leg cramps Fibromyalgia History of stress test Cardiology follow-up encounter Hx of hydrocephalus History of tennis elbow Nonrheumatic aortic (valve) insufficiency Acute respiratory failure with hypoxia COVID-19 Valvular heart disease Non-rheumatic tricuspid valve insufficiency Essential hypertension Tricuspid insufficien (more content not included)... Normal [facility] PAP TESTon 09-18-2024 ADEQUACY Normal [facility] Comment on above: Order Comment: Speci men Type: FLUID SPECIMENOrdering Facility: [facility] Address: [address] [place] [address] Result Comment: Sati sfactory for interpretation.Obscuring inflammation Performed By: #### L [id number] ####[facility] LABCLIA [id number] [place] [address] [place] CASE REPORT Normal [facility] Comment on above: Order Comment: Speci men Type: FLUID SPECIMENOrdering Facility: [facility] Address: [address] [place] [address] Result Comment: Gyne cologic Cytology Report Case: [id number] Provider: Kimberly Grajeda APRN.ELEVATOR CONSTRUCTOR HYDRAULIC Collected: 09/18/2024 09:19 AMOrdering Location: OB/Gynecology Received: 09/18/2024 11:54 AMFirst Screen: Alan Siu, TechRescreen: Selam Brewster, CT, ASCPSpecimen: Pap Test, ThinPrep, Vagina Performed By: #### L [id number] ####[facility] LABCLIA [id number] [place] [id number] [place] CLINICAL HISTORY, CYTOLOGY, SKIING TEACHER Normal [facility] Comment on above: Order Comment: Speci men Type: FLUID SPECIMENOrdering Facility: [facility] Address: [address] [place] [address] Result Comment: Vagi nal DischargeHysterectomy, Total Performed By: #### L [id number] ####[facility] LABCLIA [id number] [place] [address] [place] CYTOLOGY PAP OTHER INTERPRETATION Atrophic specimen. Normal [facility] Comment on above: Order Comment: Speci men Type: FLUID SPECIMENOrdering Facility: [facility] Address: [address] [place] [address] Performed By: #### L [id number] ####[facility] LABCLIA [id number] [place] [address] [place] FINAL PERFORMING LAB Normal [facility] Comment on above: Order Comment: Speci men Type: FLUID SPECIMENOrdering Facility: [facility] Address: [address] [place] [address] Result Comment: Tech nical component, financial services consultant screening performed at [facility], [address] [place], [place] [id number] CLIA# [id number] interpretation performed at [facility], [address] [place], [place] [id number] CLIA# [id number] Director: Sandor Domínguez M.D. Performed By: #### L [id number] ####[facility] LABCLIA [id number] [place] [address] [place] INTERPRETATION, CYTOLOGY, SKIING TEACHER Normal [facility] Comment on above: Order Comment: Speci men Type: FLUID SPECIMENOrdering Facility: [facility] Address: [address] [place] [address] Result Comment: Nega tive for intraepithelial lesion or malignancy. Performed By: #### L [id number] ####[facility] LABCLIA [id number] [place] [address] [place] PAP DISCLAIMER COMMENT The Pap Smear is a screening test for cervical cancer. False negative results occur with all screening tests, emphasizing the need for rescreening at recommended intervals, and clinical correlation. Normal [facility] Comment on above: Order Comment: Speci men Type: FLUID SPECIMENOrdering Facility: [facility] Address: [address] [place] [address] Performed By: #### L [id number] ####[facility] LABCLIA [id number] [place] [address] [place] PAP FOOD OR BAGGAGE HANDLING RAMPMAN COMMENT Normal [facility] Comment on above: Order Comment: Speci men Type: FLUID SPECIMENOrdering Facility: [facility] Address: [address] [place] [address] Performed By: #### L [id number] ####[facility] LABCLIA [id number] [place] [address] [place] CNOVon 09-17-2024 CNOV [address] [facility] CNOVon 09-16-2024 CNOV [address] [facility] CNPNon 09-16-2024 CNPN [address] [facility] No Panel Informationon 09-16 IMPRESSION: No acute radiographic abnormality. No evidence of fracture. Degenerative changes of the thoracic spine. Buggy Driver: PSCB Transcribe Date/Time: Sep 16 2024 12:50P Dictated by : RONAK PHILLIP MD This examination was interpreted and the report reviewed and electronically signed by: RONAK PHILLIP MD on Sep 16 2024 12:54PM [facility] DIVISION OF RADIOLOGY Radiology Study observation (narrative) [facility] No Panel InformationOrdered By: Ccf Provider on 09-16-2024 [facility] XR RIB/CHST 3V AP RIB/OBL/CH ST Jaxon 09-16-2024 XR RIB/CHST 3V AP RIB/OBL/CHST R Normal [facility] XR Ribs - right Views and Ch est PAon 09-16-2024 * * *Final Report* * * DATE OF EXAM: Sep 16 2024 12:37PM WOX [id number] - XR RIB/CHST 3V AP RIB/OBL/CHST R / PROCEDURE REASON: multiple diagnoses * * * * Physician Interpretation * * * * History: Right-sided rib pain following trauma FINDINGS: CHEST/RIBS: Frontal view of the chest and multiple views of the right ribs have been obtained. The lungs are clear of infiltrate. There is no pleural effusion or pneumothorax. The heart is enlarged. Bilateral reverse shoulder arthroplasty is partially viewed. Images of the right ribs demonstrate no evidence of acute fracture. Thoracic spine: 3 views of the thoracic spine have been obtained. There is no acute fracture or subluxation. There are multilevel degenerative changes with mild intervertebral joint space narrowing and osteophyte formation more pronounced on the right. Prevertebral soft tissues are unremarkable. DIVISION OF RADIOLOGY Provider, [facility] - 09/16/2024 * * *Final Report* * * DATE OF EXAM: Sep 16 2024 12:37PM WOX 5244 - XR RIB/CHST 3V AP RIB/OBL/CHST R / PROCEDURE REASON: multiple diagnoses * * * * Physician Interpretation * * * * History: Right-sided rib pain following trauma FINDINGS: CHEST/RIBS: Frontal view of the chest and multiple views of the right ribs have been obtained. The lungs are clear of infiltrate. There is no pleural effusion or pneumothorax. The heart is enlarged. Bilateral reverse shoulder arthroplasty is partially viewed. Images of the right ribs demonstrate no evidence of acute fracture. Thoracic spine: 3 views of the thoracic spine have been obtained. There is no acute fracture or subluxation. There are multilevel degenerative changes with mild intervertebral joint space narrowing and osteophyte formation more pronounced on the right. Prevertebral soft tissues are unremarkable. IMPRESSION IMPRESSION: No acute radiographic abnormality. No evidence of fracture. Degenerative changes of the thoracic spine. Buggy Driver: SANDRA Transcribe Date/Time: Sep 16 2024 12:50P Dictated by : RONAK PHILLIP MD This examination was interpreted and the report reviewed and electronically signed by: RONAK PHILLIP MD on Sep 16 2024 12:54PM EST [facility] XR THORACIC 3V AP/LAT/SWIMME RSon 09-16-2024 XR THORACIC 3V AP/LAT/SWIMMERS Normal [facility] XR Thoracic spine AP and Lat eral and Swimmerson 09-16-2024 * * *Final Report* * * DATE OF EXAM: Sep 16 2024 12:37PM WOX 5261 - XR THORACIC 3V AP/LAT/SWIMMERS / PROCEDURE REASON: multiple diagnoses * * * * Physician Interpretation * * * * History: Right-sided rib pain following trauma FINDINGS: CHEST/RIBS: Frontal view of the chest and multiple views of the right ribs have been obtained. The lungs are clear of infiltrate. There is no pleural effusion or pneumothorax. The heart is enlarged. Bilateral reverse shoulder arthroplasty is partially viewed. Images of the right ribs demonstrate no evidence of acute fracture. Thoracic spine: 3 views of the thoracic spine have been obtained. There is no acute fracture or subluxation. There are multilevel degenerative changes with mild intervertebral joint space narrowing and osteophyte formation more pronounced on the right. Prevertebral soft tissues are unremarkable. DIVISION OF RADIOLOGY Provider, [facility] - 09/16/2024 * * *Final Report* * * DATE OF EXAM: Sep 16 2024 12:37PM WOX 5261 - XR THORACIC 3V AP/LAT/SWIMMERS / PROCEDURE REASON: multiple diagnoses * * * * Physician Interpretation * * * * History: Right-sided rib pain following trauma FINDINGS: CHEST/RIBS: Frontal view of the chest and multiple views of the right ribs have been obtained. The lungs are clear of infiltrate. There is no pleural effusion or pneumothorax. The heart is enlarged. Bilateral reverse shoulder arthroplasty is partially viewed. Images of the right ribs demonstrate no evidence of acute fracture. Thoracic spine: 3 views of the thoracic spine have been obtained. There is no acute fracture or subluxation. There are multilevel degenerative changes with mild intervertebral joint space narrowing and osteophyte formation more pronounced on the right. Prevertebral soft tissues are unremarkable. IMPRESSION IMPRESSION: No acute radiographic abnormality. No evidence of fracture. Degenerative changes of the thoracic spine. Buggy Driver: SANDRA Transcribe Date/Time: Sep 16 2024 12:50P Dictated by : RONAK PHILLIP MD This examination was interpreted and the report reviewed and electronically signed by: RONAK PHILLIP MD on Sep 16 2024 12:54PM EST [facility] BENZO CONFIRM, URINEon 09-12 7-Aminoclonazepam Confirm (U) [Mass/Vol] 129 ng/mL High <[address] [facility] Comment on above: Order Comment: Speci men Type: URINE SPECIMENOrdering Facility: [facility] Address: [address] [place] [address] Result Comment: 7-Am inoclonazepam is a metabolite of clonazepam. Presence of 7-aminoclonazepam is consistent with use of a clonazepam-containing drug. Performed By: #### U CHRISTINA ####[facility] LABIA [id number] [place] [address] [place] Alpha hydroxyalprazolam Confirm (U) [Mass/Vol] <25 Normal <[address] [facility] Comment on above: Order Comment: Speci men Type: URINE SPECIMENOrdering Facility: [facility] Address: [address] [place] [address] Result Comment: Alph a-hydroxyalprazolam is a metabolite of alprazolam. Performed By: #### U CHRISTINA ####[facility] [id number] [place] [address] [place] Alpha hydroxytriazolam Confirm (U) [Mass/Vol] <25 Normal <[address] [facility] Comment on above: Order Comment: Speci men Type: URINE SPECIMENOrdering Facility: [facility] Address: [address] [place] [address] Result Comment: Alph a-hydroxytriazolam is a metabolite of triazolam. Performed By: #### U CHRISTINA ####[facility] LABIA [id number] [place] [address] [place] BENZO CONFIRM, NOTE Normal [facility] Comment on above: Order Comment: Speci men Type: URINE SPECIMENOrdering Facility: [facility] Address: [address] [place] [address] Result Comment: For medical purposes only. Not valid for legal or forensic purposes.This test was developed, and its performance characteristics determined by the [facility] Department of Pathology and Laboratory Medicine. It has not been cleared or approved by the FDA. The [facility] Department of Pathology and Laboratory Medicine is regulated under CLIA as qualified to perform high-complexity testing. This test is used for clinical purposes. It should not be regarded as investigational or for research. Performed By: #### U CHRISTINA ####[facility] LABIA [id number] [place] [address] [place] LORazepam Confirm (U) [Mass/Vol] <25 Normal <[address] [facility] Comment on above: Order Comment: Speci men Type: URINE SPECIMENOrdering Facility: [facility] Address: [address] [place] [address] Performed By: #### U CHRISTINA ####[facility] LABIA [id number] [place] [address] [place] Nordiazepam Confirm (U) [Mass/Vol] <25 Normal <[address] [facility] Comment on above: Order Comment: Speci men Type: URINE SPECIMENOrdering Facility: [facility] Address: [address] [place] [address] Performed By: #### U CHRISTINA ####[facility] LABIA [id number] [place] [address] [place] Oxazepam Confirm (U) [Mass/Vol] <25 Normal <[address] [facility] Comment on above: Order Comment: Speci men Type: URINE SPECIMENOrdering Facility: [facility] Address: [address] [place] [address] Performed By: #### U CHRISTINA ####[facility] LABIA [id number] [place] [address] [place] Temazepam Confirm (U) [Mass/Vol] <25 Normal <[address] [facility] Comment on above: Order Comment: Speci men Type: URINE SPECIMENOrdering Facility: [facility] Address: [address] [place] [address] Performed By: #### U CHRISTINA ####[facility] LABCLIA [id number] [place] [address] [place] CNOVon 09-12-2024 CNOV [address] [facility] SPECIMEN VALIDITY, URINEon 0 09-12-2024 CREATININE,URINE 153.0 mg/dL Normal 20.0-300.0 [facility] Comment on above: Order Comment: Speci men Type: URINE SPECIMENOrdering Facility: [facility] Address: [address] [place] [address] Performed By: #### L [id number] ####[facility] LABCLIA [id number] [place] [address] [place] NITRITES,URINE <50 Normal <[address] [facility] Comment on above: Order Comment: Speci men Type: URINE SPECIMENOrdering Facility: [facility] Address: [address] [place] [address] Performed By: #### L [id number] ####[facility] LABCLIA [id number] [place] [address] [place] OXIDANTS,URINE <38 Normal <[address] [facility] Comment on above: Order Comment: Speci men Type: URINE SPECIMENOrdering Facility: [facility] Address: [address] [place] [address] Performed By: #### L [id number] ####[facility] LABCLIA [id number] [place] [address] [place] pH (U) 5.2 [pH] Normal 4.5-8.[address] [facility] Comment on above: Order Comment: Speci men Type: URINE SPECIMENOrdering Facility: [facility] Address: [address] [place] [address] Performed By: #### L [id number] ####[facility] LABCLIA [id number] [place] [address] [place] SPEC GRAVITY,UR 1.015 Normal 1.003-1.035 [facility] Comment on above: Order Comment: Speci men Type: URINE SPECIMENOrdering Facility: [facility] Address: [address] [place] [address] Performed By: #### L [id number] ####[facility] LABCLIA [id number] [place] [address] [place] SPECIMEN VALIDITY QUALITY Specimen quality results within acceptable limits Normal [facility] Comment on above: Order Comment: Speci men Type: URINE SPECIMENOrdering Facility: [facility] Address: [address] [place] [address] Performed By: #### L [id number] ####[facility] LABIA [id number] [place] [address] [place] TOXICOLOGY SCREEN, ROUTINE U RINEon 09-12-2024 Amphetamines Confirm (U) [Mass/Vol] Negative Normal Negative [facility] Comment on above: Order Comment: Speci men Type: URINE SPECIMENOrdering Facility: [facility] Address: [address] [place] [address] Result Comment: Cuto ff threshold at 1000 ng/mL. Performed By: #### U TOX2 ####[facility] LABCLIA [id number] [place] [address] [place] BARBITURATES, URINE Negative Normal Negative [facility] Comment on above: Order Comment: Speci men Type: URINE SPECIMENOrdering Facility: [facility] Address: [address] [place] [address] Result Comment: Cuto ff threshold at 200 ng/mL. Performed By: #### U TOX2 ####[facility] LABCLIA [id number] [place] [address] [place] BENZODIAZEPINES, UR Negative Normal Negative [facility] Comment on above: Order Comment: Speci men Type: URINE SPECIMENOrdering Facility: [facility] Address: [address] [place] [address] Result Comment: Cuto ff threshold at 200 ng/mL. Performed By: #### U TOX2 ####[facility] LABCLIA [id number] [place] [address] [place] Cannabinoids Screen Ql (U) Negative Normal Negative [facility] Comment on above: Order Comment: Speci men Type: URINE SPECIMENOrdering Facility: [facility] Address: [address] [place] [address] Result Comment: Cuto ff threshold at 50 ng/mL. Performed By: #### U TOX2 ####[facility] LABIA [id number] [place] [address] [place] Cocaine Ql (U) Negative Normal Negative [facility] Comment on above: Order Comment: Speci men Type: URINE SPECIMENOrdering Facility: [facility] Address: [address] [place] [address] Result Comment: Cuto ff threshold at 300 ng/mL. Performed By: #### U TOX2 ####[facility] LABIA [id number] [place] [address] [place] Ethanol (U) [Mass/Vol] <11 Normal <[address] [facility] Comment on above: Order Comment: Speci men Type: URINE SPECIMENOrdering Facility: [facility] Address: [address] [place] [address] Performed By: #### U TOX2 ####[facility] LABCLIA [id number] [place] [address] [place] Opiates Screen Ql (U) Negative Normal Negative [facility] Comment on above: Order Comment: Speci men Type: URINE SPECIMENOrdering Facility: [facility] Address: [address] [place] [address] Performed By: #### U TOX2 ####[facility] LABCLIA [id number] [place] [address] [place] oxyCODONE cutoff Screen (U) [Mass/Vol] Negative Normal Negative [facility] Comment on above: Order Comment: Speci men Type: URINE SPECIMENOrdering Facility: [facility] Address: [address] [place] [address] Result Comment: Cuto ff threshold at 100 ng/mL. Performed By: #### U TOX2 ####[facility] [id number] [place] [address] [place] Phencyclidine Ql (U) Negative Normal Negative [facility] Comment on above: Order Comment: Speci men Type: URINE SPECIMENOrdering Facility: [facility] Address: [address] [place] [address] Result Comment: Cuto ff threshold at 25 ng/mL. Performed By: #### U TOX2 ####[facility] LABIA [id number] [address] [place] CNPNon 08-28-2024 CNPN [address] [facility] CT Kidney WO and W contrast Izabel 08-26-2024 IMPRESSION: Fatty liver Right renal cyst No nephrolithiasis, ureterolithiasis, gross obstructive uropathy, or suspicious renal lesion. Urinary bladder is suboptimally seen, however, grossly normal. Buggy Driver: [facility] Transcribe Date/Time: Aug 26 2024 2:25P Dictated by : NISHANT MATHUR MD This examination was interpreted and the report reviewed and electronically signed by: NISHANT MATHUR MD on Aug 26 2024 2:31PM [facility] DIVISION OF RADIOLOGY * * *Final Report* * * DATE OF EXAM: Aug 26 2024 10:48AM [facility] 0560 - CT UROGRAM WO/W IVCON / PROCEDURE REASON: Gross hematuria * * * * Physician Interpretation * * * * EXAMINATION: CT ABDOMEN AND PELVIS WITHOUT AND WITH IV CONTRAST, INCLUDING EXCRETORY PHASE IMAGING (CT UROGRAM) 3D RECONSTRUCTIONS CLINICAL HISTORY: Hematuria. TECHNIQUE: CT urogram protocol including unenhanced, renal parenchymal phase and excretory phase renal imaging was obtained following IV contrast. Normal saline was also administered IV. No oral contrast was given. 3D image post-processing was performed and archived at the request of the referring physician, on the CT scanner workstation without concurrent physician supervision. MQ: CTU_2 Contrast: IV: 150 ml of Omnipaque 350 IV Saline: 100 ml of 0.9% NACL Solution Oral Contrast: None CT Radiation dose: Integrated dose-length product (DLP) for this visit = 1961 mGy*cm. CT Dose Reduction Employed: Automated exposure control(AEC) and iterative recon COMPARISON: 07/16/2024 CT. RESULT: Kidneys and urinary tract: Right: 5.8 cm cyst. There are no renal calculi or solid/enhancing masses. The opacified calices, renal pelvis and ureter are normal without dilation, filling defect, or stricture. Left: There are no renal calculi or solid/enhancing masses. The opacified calices, renal pelvis and ureter are normal without dilation, filling defect, or stricture. Bladder: No filling defect, calculus, focal or diffuse wall thickening. The bladder is somewhat suboptimally visualized due to streak artifact from bilateral hip prostheses Abdomen and Pelvis: Liver: No mass. Fatty infiltration Biliary: No bile duct dilation. Gallbladder is unremarkable. Spleen: No mass. No splenomegaly. Pancreas: No mass or duct dilation. Adrenals: No mass. GI tract: No dilation or wall thickening. Surgical suture line in the sigmoid colon. Lymph nodes: No abdominal or pelvic lymphadenopathy. Mesentery/Peritoneum: No ascites or mass. Retroperitoneum: No mass. Vasculature: - Abdominal aorta and iliac arteries: No aneurysm. - Celiac and SMA: Patent without stenosis. - Portal venous system (SMV, splenic vein, portal vein and branches): Patent. - Hepatic veins: Patent. Pelvis: No mass, ascites or fluid collection. Bones and Soft Tissues: Bilateral hip prostheses causing streak artifact. This limits visualization in the pelvis. Degenerative change throughout the spine Lower thorax: Unremarkable. Localizer images: No additional findings. DIVISION OF RADIOLOGY Provider, Lizet María [facility] - 08/26/2024 * * *Final Report* * * DATE OF EXAM: Aug 26 2024 10:48AM [facility] 0560 - CT UROGRAM WO/W IVCON / PROCEDURE REASON: Gross hematuria * * * * Physician Interpretation * * * * EXAMINATION: CT ABDOMEN AND PELVIS WITHOUT AND WITH IV CONTRAST, INCLUDING EXCRETORY PHASE IMAGING (CT UROGRAM) 3D RECONSTRUCTIONS CLINICAL HISTORY: Hematuria. TECHNIQUE: CT urogram protocol including unenhanced, renal parenchymal phase and excretory phase renal imaging was obtained following IV contrast. Normal saline was also administered IV. No oral contrast was given. 3D image post-processing was performed and archived at the request of the referring physician, on the CT scanner workstation without concurrent physician supervision. MQ: CTU_2 Contrast: IV: 150 ml of Omnipaque 350 IV Saline: 100 ml of 0.9% NACL Solution Oral Contrast: None CT Radiation dose: Integrated dose-length product (DLP) for this visit = 1961 mGy*cm. CT Dose Reduction Employed: Automated exposure control(AEC) and iterative recon COMPARISON: 07/16/2024 CT. RESULT: Kidneys and urinary tract: Right: 5.8 cm cyst. There are no renal calculi or solid/enhancing masses. The opacified calices, renal pelvis and ureter are normal without dilation, filling defect, or stricture. Left: There are no renal calculi or solid/enhancing masses. The opacified calices, renal pelvis and ureter are normal without dilation, filling defect, or stricture. Bladder: No filling defect, calculus, focal or diffuse wall thickening. The bladder is somewhat suboptimally visualized due to streak artifact from bilateral hip prostheses Abdomen and Pelvis: Liver: No mass. Fatty infiltration Biliary: No bile duct dilation. Gallbladder is unremarkable. Spleen: No mass. No splenomegaly. Pancreas: No mass or duct dilation. Adrenals: No mass. GI tract: No dilation or wall thickening. Surgical suture line in the sigmoid colon. Lymph nodes: No abdominal or pelvic lymphadenopathy. Mesentery/Peritoneum: No ascites or mass. Retroperitoneum: No mass. Vasculature: - Abdominal aorta and iliac arteries: No aneurysm. - Celiac and SMA: Patent without stenosis. - Portal venous system (SMV, splenic vein, portal vein and branches): Patent. - Hepatic veins: Patent. Pelvis: No mass, ascites or fluid collection. Bones and Soft Tissues: Bilateral hip prostheses causing streak artifact. This limits visualization in the pelvis. Degenerative change throughout the spine Lower thorax: Unremarkable. Localizer images: No additional findings. IMPRESSION IMPRESSION: Fatty liver Right renal cyst No nephrolithiasis, ureterolithiasis, gross obstructive uropathy, or suspicious renal lesion. Urinary bladder is suboptimally seen, however, grossly normal. Buggy Driver: PSCB Transcribe Date/Time: Aug 26 2024 2:25P Dictated by : NISHANT MATHUR MD This examination was interpreted and the report reviewed and electronically signed by: NISHANT MATHUR MD on Aug 26 2024 2:31PM EST [facility] Radiology Study observation (narrative) [facility] CT Kidney WO and W contrast IVOrdered By: Ccf Provider on 08-26-2024 [facility] [address] UROGRAM WO/W IVCONon 08-04 CT UROGRAM WO/W IVCON Normal [facility] CNPNon 08-13-2024 CNPN [address] [facility] CNPNon 08-12-2024 CNPN [address] [facility] CNOVon 08-11-2024 CNOV [address] [facility] CYTOLOGY NON-GYNon CASE REPORT Normal [facility] Comment on above: Order Comment: Speci men Type: URINE SPECIMENOrdering Facility: [facility] Address: [address] [place] [address] Result Comment: [facility] Cytology Report Case: [id number] Provider: Shilpi Borrero APRN.ELEVATOR CONSTRUCTOR HYDRAULIC, Collected: 08/11/2024 11:29 AM DNPOrdering Location: Urology Received: 08/11/2024 04:20 PMPathologist: Tessy Perez MDSpecimen: Urine, Midstream Performed By: #### C YTONON ####[facility] LABCLIA [id number] [place] [address] [place] CLINICAL HISTORY gross hematuria Normal [facility] Comment on above: Order Comment: Speci men Type: URINE SPECIMENOrdering Facility: [facility] Address: [address] [place] [address] Performed By: #### C YTONON ####[facility] LABCLIA [id number] [place] [address] [place] FINAL DIAGNOSIS Normal [facility] Comment on above: Order Comment: Speci men Type: URINE SPECIMENOrdering Facility: [facility] Address: [address] [place] [address] Result Comment: A - Urine, Midstream Negative for high-grade urothelial carcinoma. Blood. Performed By: #### C YTONON ####[facility] LABCLIA [id number] [place] [address] [place] FINAL PERFORMING LAB Normal [facility] Comment on above: Order Comment: Speci men Type: URINE SPECIMENOrdering Facility: [facility] Address: [address] [place] [address] Result Comment: Tech nical component, financial services consultant screening performed at [facility], [address] [place] [address] CLIA# [id number] interpretation performed at [facility], [address] [place] [address] CLIA# [id number] Director: Sandor Domínguez M.D. Performed By: #### C YTONON ####[facility] LABCLIA [id number] [place] [address] [place] GROSS DESCRIPTION Normal [facility] Comment on above: Order Comment: Speci men Type: URINE SPECIMENOrdering Facility: [facility] Address: [address] [place] [address] Result Comment: A. U rine, Midstream5 cc clear yellow fluid . ThinPrep prepared. Performed By: #### C YTONON ####[facility] LABCLIA [id number] [place] [address] [place] SANJUANA SCREENING W TOMOon 08-11 SANJUANA SCREENING W GENNA Normal [facility] UA DIP, URINE (POC)on 2023 BILIRUBIN UA (POCT) Negative Negative [facility] CLARITY UA (POCT) Slightly Cloudy [facility] COLOR UA (POCT) Dark yellow [facility] GLUCOSE UA (POCT) Negative Negative mg/dL [facility] Hemoglobin Ql (U) Small Abnormal Negative [facility] Interpretation and review of laboratory results Abnormal [facility] KETONE UA (POCT) Negative Negative mg/dL [facility] LEUKOCYTES UA (POCT) Trace Abnormal Negative [facility] NITRITE UA (POCT) Negative Negative [facility] PH UA (POCT) 5.5 4.5 - 8.0 [facility] Protein Ql (U) Negative Negative mg/dL [facility] SPECIFIC GRAVITY UA (POCT) >=1.030 1.005 - 1.030 [facility] UROBILINOGEN UA (POCT) 0.2 Normal E.U./dL [facility] Location:[facility], [address] , [place], [place], [id number] [place] [address] POINT OF CARE [facility] Urinalysis complete panel (U )on 08-11-2024 Bacteria LM.HPF (Urine sed) [#/Area] Negative Normal Negative [facility] Comment on above: Order Comment: Speci men Type: URINE SPECIMENOrdering Facility: [facility] Address: [address] [place] [address] Performed By: #### 2 4356-8 ####[facility] LABIA [id number] [place] [address] [place] Bilirubin Ql (U) Negative Normal Negative [facility] Comment on above: Order Comment: Speci men Type: URINE SPECIMENOrdering Facility: [facility] Address: [address] [place] [address] Performed By: #### 2 4356-8 ####[facility] LABCLIA [id number] [place] [address] [place] Clarity (Unsp spec) Clear Normal Clear [facility] Comment on above: Order Comment: Speci men Type: URINE SPECIMENOrdering Facility: [facility] Address: [address] [place] [address] Performed By: #### 2 4356-8 ####[facility] LABCLIA [id number] [place] [address] [place] Color (U) Dark Yellow Abnormal Yellow [facility] Comment on above: Order Comment: Speci men Type: URINE SPECIMENOrdering Facility: [facility] Address: [address] [place] [address] Performed By: #### 2 4356-8 ####[facility] LABCLIA [id number] [place] [address] [place] Epithelial cells LM.HPF (Urine sed) [#/Area] Few Normal [facility] Comment on above: Order Comment: Speci men Type: URINE SPECIMENOrdering Facility: [facility] Address: [address] [place] [address] Performed By: #### 2 4356-8 ####[facility] LABCLIA [id number] [place] [address] [place] Glucose Test strip (U) [Mass/Vol] Negative Normal Negative [facility] Comment on above: Order Comment: Speci men Type: URINE SPECIMENOrdering Facility: [facility] Address: [address] [place] [address] Performed By: #### 2 4356-8 ####[facility] LABCLIA [id number] [place] [address] [place] Hemoglobin Ql (U) Trace Abnormal Negative [facility] Comment on above: Order Comment: Speci men Type: URINE SPECIMENOrdering Facility: [facility] Address: [address] [place] [address] Performed By: #### 2 4356-8 ####[facility] LABCLIA [id number] [place] [address] [place] Hyaline casts (Urine sed) [#/Area] 1-3 /LPF Abnormal 0 /LPF [facility] Comment on above: Order Comment: Speci men Type: URINE SPECIMENOrdering Facility: [facility] Address: [address] [place] [address] Performed By: #### 2 4356-8 ####[facility] LABCLIA [id number] [place] [address] [place] Ketones Ql (U) Trace Abnormal Negative [facility] Comment on above: Order Comment: Speci men Type: URINE SPECIMENOrdering Facility: [facility] Address: [address] [place] [address] Performed By: #### 2 4356-8 ####[facility] LABCLIA [id number] [place] [address] [place] Leukocyte esterase Test strip Ql (U) 1+ Abnormal Negative [facility] Comment on above: Order Comment: Speci men Type: URINE SPECIMENOrdering Facility: [facility] Address: [address] [place] [address] Performed By: #### 2 4356-8 ####[facility] LABCLIA [id number] [place] [address] [place] Nitrite Ql (U) Negative Normal Negative [facility] Comment on above: Order Comment: Speci men Type: URINE SPECIMENOrdering Facility: [facility] Address: [address] [place] [address] Performed By: #### 2 4356-8 ####[facility] LABCLIA [id number] [place] [address] [place] pH (U) 5.5 [pH] Normal <8.[address] [facility] Comment on above: Order Comment: Speci men Type: URINE SPECIMENOrdering Facility: [facility] Address: [address] [place] [address] Performed By: #### 2 4356-8 ####[facility] LABCLIA [id number] [place] [address] [place] Protein (U) [Mass/Vol] Trace Abnormal Negative [facility] Comment on above: Order Comment: Speci men Type: URINE SPECIMENOrdering Facility: [facility] Address: [address] [place] [address] Performed By: #### 2 4356-8 ####[facility] LABIA [id number] [place] [address] [place] RBC LM.HPF (Urine sed) [#/Area] 3-5 /HPF Abnormal 0-2 /HPF [facility] Comment on above: Order Comment: Speci men Type: URINE SPECIMENOrdering Facility: [facility] Address: [address] [place] [address] Performed By: #### 2 4356-8 ####[facility] LABIA [id number] [place] [address] [place] Specific gravity (U) [Rel density] 1.026 Normal 1.005-1.[address] [facility] Comment on above: Order Comment: Speci men Type: URINE SPECIMENOrdering Facility: [facility] Address: [address] [place] [address] Performed By: #### 2 4356-8 ####[facility] LABIA [id number] [place] [address] [place] Urobilinogen Ql (U) 0.2 EU/dL Normal 0.2-1.0 EU/dL [facility] Comment on above: Order Comment: Speci men Type: URINE SPECIMENOrdering Facility: [facility] Address: [address] [place] [address] Performed By: #### 2 4356-8 ####[facility] LABIA [id number] [place] [address] [place] WBC LM.HPF (Urine sed) [#/Area] 0-5 /HPF Normal 0-5 /HPF [facility] Comment on above: Order Comment: Speci men Type: URINE SPECIMENOrdering Facility: [facility] Address: [address] [place] [address] Performed By: #### 2 4356-8 ####[facility] LABIA [id number] [place] [address] [address] [place] ABD Limited w/ Elastographyo n 08-08-2024 ABD Limited w/ Elastography [facility] [address] [place] [address] ABD Limited w/ Elastography MR#: [id number] Acct: [id number] Name: KRISTINA BURCH Rep #: [id number] : 1960 F 64 From: Alexandre canales MD PCP: Dr. Ganga Nunez MD Status: REG CLI Study: ABD Limited w/ Elastography Date of Exam: 02/24 Exam# [id number] Ordering Dr: Suzanne Shrestha [id number] STUDY: ABDOMINAL ULTRASOUND - RIGHT UPPER QUADRANT; ELASTOGRAPHY REASON FOR VISIT: Female, 64 years old. Fatty infiltration of the liver. TECHNIQUE: Ultrasound evaluation of the right upper quadrant was performed with real-time and static pichardo-scale imaging. Point quantification shear wave elastography was performed ([employer]). TECHNICAL QUALITY: Adequate. COMPARISON: Comparison is made with prior CT scan of the abdomen and pelvis dated May 28, 2024. FINDINGS: Liver: The liver measures 16.1 cm. There is increased echogenicity consistent with fatty infiltration. The bile ducts are within normal limits. There is hepatic color flow. The direction of portal flow is hepatopetal. There is no demonstrated mass lesion. Median liver stiffness measured 11.6 kPa. Gallbladder: Normal distended gallbladder. The gallbladder wall measures 2.0 mm. There is a negative sonographic Zuñiga''s sign. There is no pericholecystic fluid. There are no gallstones. Common Bile Duct (C.B.D.): The common bile duct measures 4.0 mm. Pancreas: There is normal echogenicity of the visualized pancreas. There is no demonstrated pancreatic mass or cyst. Right Kidney: Normal size of the right kidney. The right kidney measures 11.6 cm x 5.1 cm x 5.4 cm. Normal renal cortex. The right cortex measures 1.8 cm. There is a 6.6 cm x 6.2 centimeters by 5.5 cm cyst in the superior lateral portion of the right kidney. There is no right hydronephrosis. US/ABD Limited w/ Elastography IMPRESSION: 1. Liver stiffness measures 11.6 kPa compatible with F2-F3 (Mild to moderate liver fibrosis) Metavir score. Electronically Signed: Alexandre Suggs MD at 9:44 EST , CC: Dr. Ganga Nunez MD; MOER Hurst Buggy Driver: Signed [facility] 08-08-2024 [facility] Telephone (RHEAGK) -------- KRISTINA BURCH ([id number]) 1960 F Date Time Provider Department 08/08/24 REGINALDO BURNETT During your visit today, we recorded the following information about you: Tati Penny MA 08/08/2024 10:43 AM Signed See scanned document for care consideration from [facility]. Reginaldo Burnett MD 08/10/2024 2:15 PM Signed Noted Reginaldo Burnett MD Allergies As of Date: 08/08/2024 Noted Allergy Reaction DILAUDID (HYDROMORPHONE (PF)) 05/24/2018 1 - Mental Status Change 14 - Other: See Comments Comments: Hallucinations SULFA (SULFONAMIDE ANTIBIOTICS) 02/09/2003 2 - Rash ULTRAM (TRAMADOL HCL) 05/01/2007 8 - GI Upset Comments: Pt. tried again on 02-13 and became very ill with GI issues OXYCONTIN (OXYCODONE HCL) 12/29/2008 7 - Swelling RELAFEN (NABUMETONE) 07/28/2005 8 - GI Upset SERTRALINE 08/18/2022 14 - Other: See Comments Comments: Tremors right upper extremity. Date Reviewed: 07/28/2024 Reviewed by: Kimberly Grajeda APRN.ELEVATOR CONSTRUCTOR HYDRAULIC - Fully Assessed Reason for Visit: Craniologist - Other [3602] Prescriptions as of 08/10/2024 - clobetasol (TEMOVATE) 0.05 % ointment Apply 1 application to affected area two times a day. - budesonide-formoterol (SYMBICORT) 160-4.5 mcg/actuation inhaler Inhale 2 Puffs as instructed two times a day. - albuterol HFA (VENTOLIN HFA) 90 mcg/actuation inhaler Inhale 2 Puffs as instructed every 4 hours as needed for wheezing/shortness of breath. - CPAP/BIPAP/OTHER APAP 7-15 cmH2O DME [employer] - clonazePAM (KLONOPIN) 0.5 mg tablet Take at bedtime for insomnia and RLS. Patient should start on June 25, 2024. - celecoxib (CELEBREX) 200 mg capsule Take 1 capsule by mouth two times a day. - FLUoxetine (PROZAC) 20 mg capsule Take 1 capsule by mouth once daily. - folic acid 1 mg tablet Take 1 tablet by mouth once daily. - methotrexate 2.5 mg tablet Take 6 tablets by mouth every Sunday. as directed. - hydroCHLOROthiazide 25 mg tablet Take 1 tablet by mouth once daily. - atorvastatin (LIPITOR) 40 mg tablet Take 1 tablet by mouth daily at bedtime. For cholesterol. - traZODone (DESYREL) 100 mg tablet Take 1 tablet by mouth daily at bedtime. - azelastine (ASTELIN, ASTEPRO) 0.1% nasal spray Use 2 Sprays in each nostril twice daily as needed. - metoprolol succinate ER (TOPROL XL) 50 mg 24 hr tablet Take 2 tablets by mouth once daily. - CPAP Lifetime supplies for AutoPAP 6-11 cm H20 including mask, heated tubing, humidity, filters. Fax 30 day download report to [phone] to assess residual ahi. - vit C-Zn gluc-herbal no.325 (ELDERBERRY ZINC VIT C) 90-15 mg lozg Use 1 Lozenge as instructed twice daily. - calcium carbonate (CALTRATE 600 ORAL) Take 1 tablet by mouth once daily. - multivitamin tablet Take 1 tablet by mouth once daily. - BIOTIN ORAL Take 1 tablet by mouth once daily. - Cholecalciferol, Vitamin D3, 2,000 unit cap Take 10,000 Units by mouth once daily. Meds Comments as of 11/16/2017: Problem List As Of Date 08/08/2024 Noted Resolved Hydrocephalus, adult (HCC) [G91.9] 02/09/2003 Mononeuritis [G58.9] 06/29/2006 01/09/2018 Mild dysplasia of cervix [N87.0] 04/19/2007 03/16/2016 IRREGULAR MENSTRUATION [N92.6] 04/19/2007 10/20/2008 POSTCOITAL BLEEDING [N93.0] 04/19/2007 10/20/2008 Dyspareunia [FWH0268] 04/19/2007 03/16/2016 CYSTOCELE, MIDLINE [N81.11] 04/19/2007 10/20/2008 FEMALE STRESS INCONTINENCE [N39.3] 04/19/2007 10/20/2008 Urgency of urination [R39.15] 04/19/2007 03/16/2016 Urge incontinence [N39.41] 04/19/2007 Headache(784.0) [R51] 07/12/2007 03/16/2016 Acute sinusitis, unspecified [J01.90] 07/15/2007 03/16/2016 Cervical high risk HPV (human papillomavirus) t*05/27/2008 URETHROCELE [N36.8] 07/17/2008 10/20/2008 EXCESSIVE MENSTRUATION [N92.0] 09/01/2008 10/20/2008 Other and unspecified noninfectious gastroenter*12/15/2008 07/13/2016 Hemorrhage of gastrointestinal tract, unspecifi*03/15/2009 07/13/2016 Chronic shoulder pain [M25.519, G89.29] 03/07/2012 06/12/2018 Vitamin D deficiency [E55.9] 07/23/2012 Dyspnea [R06.00] 09/10/2012 07/04/2017 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] 09/10/2012 07/04/2017 Piriformis syndrome of left side [G57.02] 01/23/2013 07/04/2017 Trochanteric bursitis of left hip [M70.62] 01/23/2013 01/09/2018 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 Normal [facility] CNPNon 07-30-2024 CNPN Normal [facility] CNOVon 07-28-2024 CNOV [address] [facility] SURGICAL PATHOLOGYon 024 CASE REPORT Normal [facility] Comment on above: Order Comment: Speci men Type: TISSUE SPECIMENOrdering Facility: [facility] Address: [address] [place] [address] Result Comment: Surg ica Pathology Report Case: [id number] Provider: Kimberly Grajeda APRN.ELEVATOR CONSTRUCTOR HYDRAULIC Collected: 07/28/2024 12:06 PMOrdering Location: OB/Gynecology Received: 07/28/2024 04:25 PMPathologist: Paras Singh MDSpecimen: Vulva, Biopsy Performed By: #### S ####[facility] LABCLIA [id number] [place] [id number] [place] CLINICAL HISTORY Vulvar Irritation Normal C [facility] Comment on above: Order Comment: Speci men Type: TISSUE SPECIMENOrdering Facility: [facility] Address: [address] [place] [address] Performed By: #### S ####[facility] LABCLIA [id number] [place] [address] [place] DIAGNOSIS COMMENT Clinical correlation is recommended. Normal [facility] Comment on above: Order Comment: Speci men Type: TISSUE SPECIMENOrdering Facility: [facility] Address: [address] [place] [address] Performed By: #### S ####[facility] LABCLIA [id number] [place] [address] [place] FINAL DIAGNOSIS Normal [facility] Comment on above: Order Comment: Speci men Type: TISSUE SPECIMENOrdering Facility: [facility] Address: [address] [place] [address] Result Comment: A. Pk ulva, biopsy- Features suggesting early lichen sclerosus Performed By: #### S ####[facility] LABCLIA [id number] [place] [address] [place] FINAL PERFORMING LAB Normal [facility] Comment on above: Order Comment: Speci men Type: TISSUE SPECIMENOrdering Facility: [facility] Address: [address] [place] [address] Result Comment: Diag nostic interpretation performed at [facility], 65 [place] [address] CLIA# [id number] Director: Sandor Domínguez M.D. Performed By: #### S ####[facility] LABCLIA [id number] [place] [address] [place] GROSS DESCRIPTION Normal [facility] Comment on above: Order Comment: Speci men Type: TISSUE SPECIMENOrdering Facility: [facility] Address: [address] [place] [address] Result Comment: Moe turcios, BiopsyReceived in formalin is one piece of pfeiffer, soft tissue measuring 0.3 x 0.2 x 0.1 cm. Totally submitted in one cassette.[facility] July 29, 2024 12:41 AMGross examination performed at [facility], [address] [place] [address] Performed By: #### S ####[facility] LABCLIA [id number] [facility] [place] [address] [place] CBC W/Diff, Automatedon 11-2 Absolute Lymph 2.49 X10 3/uL Normal 0.83-4.51 [facility] Comment on above: Performed By: #### L 400.0001 #### [facility] Laboratory [address] [facility] [place], [address] Absolute Neut 4.7 X10 3/uL Normal 2.0-7.7 [facility] Comment on above: Performed By: #### L 400.0001 #### [facility] Laboratory [address] [facility] [place], [address] Basophils/100 WBC (Bld) 0.4 % Normal 0-1 [facility] Comment on above: Performed By: #### L 400.0001 #### [facility] Laboratory [address] [facility] [place], [address] Eosinophils/100 WBC (Bld) 1.1 % Normal 0-5 [facility] Comment on above: Performed By: #### L 400.0001 #### [facility] Laboratory [address] [facility] [place], [address] Erythrocyte distribution width (RBC) [Ratio] 12.9 % Normal 11.6-14.6 [facility] Comment on above: Performed By: #### L 400.0001 #### [facility] Laboratory [address] [facility] [place], [address] Hematocrit (Bld) [Volume fraction] 40.1 % Normal 37-47 [facility] Comment on above: Performed By: #### L 400.0001 #### [facility] [address] [place], [address] Hemoglobin (Bld) [Mass/Vol] 13.6 g/dL Normal 12.0-15.0 [facility] Comment on above: Performed By: #### L 400.0001 #### [facility] Laboratory [address] [place], [address] IG% 0.200 Normal 0.0-0.9 [facility] Comment on above: Result Comment: IG% - Immature Granulocytes (promyelocytes, myelocytes and metamyelocytes) > 1% indicates that a LEFT SHIFT is Present. Performed By: #### L 400.0001 #### [facility] Laboratory [address] [facility] [place], [address] Lymphocytes/100 WBC (Bld) 30.3 % Normal 19-41 [facility] Comment on above: Performed By: #### L 400.0001 #### [facility] Laboratory [address] [facility] [place], [address] MCH (RBC) [Entitic mass] 31.3 pg Normal 27.0-32.0 [facility] Comment on above: Performed By: #### L 400.0001 #### [facility] Laboratory [address] [facility] [place], [address] MCHC (RBC) [Mass/Vol] 33.9 g/dL Normal 32-36 [facility] Comment on above: Performed By: #### L 400.0001 #### [facility] [address] [facility] [place], [address] MCV (RBC) [Entitic vol] 92.2 fL Normal 81-99 [facility] Comment on above: Performed By: #### L 400.0001 #### [facility] Laboratory [address] [place], [address] Monocytes/100 WBC (Bld) 10.8 % High 0-10 [facility] Comment on above: Performed By: #### L 400.0001 #### [facility] [address] [place], [address] Neutrophils/100 WBC (Bld) 57.2 % Normal 47-70 [facility] Comment on above: Performed By: #### L 400.0001 #### [facility] [address] [place], [address] Nucleated RBC (Bld) [#/Vol] 0 10*3/uL Normal 0-5 [facility] Comment on above: Performed By: #### L 400.0001 #### [facility] Laboratory [address] [place], [address] Platelet mean volume (Bld) [Entitic vol] 11.9 fL Normal 6.2-12.0 [facility] Comment on above: Performed By: #### L 400.0001 #### [facility] Laboratory [address] [place], [address] Platelets (Bld) [#/Vol] 203 10*3/uL Normal 150-450 [facility] Comment on above: Performed By: #### L 400.0001 #### [facility] Laboratory [address] [place], [address] RBC (Bld) [#/Vol] 4.35 10*6/uL Normal 4.2-5.4 [facility] Comment on above: Performed By: #### L 400.0001 #### [facility] [address] [place], [address] RDW SD 43.0 fl Normal 35.1-43.9 [facility] Comment on above: Performed By: #### L 400.0001 #### [facility] Laboratory [address] [place], [place], [address] WBC (Bld) [#/Vol] 8.2 10*3/uL Normal 4.4-11.0 [facility] Comment on above: Performed By: #### L 400.0001 #### [facility] [address] [place], [address] CNOVon 07-24-2024 CNOV [address] [facility] Gastroenterology Visit Repor ton 07-24-2024 Gastroenterology Visit Report [facility] [address] [place] [address] OFFICE VISIT Date of Service: 07/24/24 MR#: [id number] Acct: [id number] Name: KRISTINA BURCH Rep #: [id number] : 1960 Provider: MOER Hurst Age/Sex: 64/F Location[facility] Status: Signed with Addenda ADDENDUM by OMER Hurst on 07/24/24 at 1009 HPI Details: Pt was also found to have fatty liver on CT abdomen pelvis. I will order elastography to monitor for liver stiffness. 07/24/24 1009 Date Suzanne Shrestha cc: * Signed Intake Vital Signs 06/17/24 11:08 Height 5 ft 8 in Intake Visit Reasons: GI Bleed Chief Complaint: ED f/u Allergies oxycodone Allergy (Verified 06/17/24 11:03) Swelling hydromorphone (From Dilaudid) Adverse Reaction (Verified 06/17/24 11:03) Other nabumetone (From Relafen) Adverse Reaction (Verified 06/17/24 11:03) Nausea Sulfa (Sulfonamide Antibiotics) Adverse Reaction (Verified 06/17/24 11:03) Nausea tramadol HCl (From Ultram) Adverse Reaction (Verified 06/17/24 11:03) Nausea Medications ???Medication ???Instructions ???Recorded ???Confirmed ???Type multivitamin with folic acid 400 1 tab PO DAILY 06/17/17 07/24/24 History mcg tablet albuterol sulfate 90 mcg/actuation 1 inh inhalation Q6H PRN shortness 05/31/21 07/24/24 Rx aerosol inhaler of breath or wheezing #8.5 grams trazodone 100 mg tablet 100 mg PO QHS 10/24/21 07/24/24 History cholecalciferol (vitamin D3) 125 10,000 unit PO DAILY 01/25/22 07/24/24 History mcg (5,000 unit) tablet azelastine 137 mcg (0.1 %) nasal 2 spray intranasal BID PRN 08/07/22 07/24/24 History spray ALLERGIES cetirizine 10 mg capsule (All Day 10 mg PO DAILY 08/07/22 07/24/24 History Allergy (cetirizine)) clonazepam 0.5 mg tablet (Klonopin) 0.5 mg PO QHS #30 tabs 03/18/24 07/24/24 Rx fluoxetine 40 mg capsule mg PO 03/31/24 07/24/24 History celecoxib 200 mg capsule 200 mg PO DAILY 05/28/24 07/24/24 History atorvastatin 40 mg tablet 40 mg PO QDAY 06/17/24 07/24/24 History budesonide-formoterol HFA 160 2 puff inhalation BID 06/17/24 07/24/24 History mcg-4.5 mcg/actuation aerosol inhaler (Symbicort) folic acid 1 mg tablet 1 mg PO QDAY 06/17/24 07/24/24 History hydrochlorothiazide 25 mg tablet 25 mg PO QDAY PRN 06/17/24 07/24/24 History methotrexate sodium 2.5 mg tablet 2.5 mg PO QWEEK 06/17/24 07/24/24 History metoprolol succinate 100 mg 100 mg PO QHS PRN Elevated blood 06/17/24 07/24/24 Rx tablet,extended release 24 hr pressure #90 tabs Have you fallen in the past year?: No Nurse's Note: OV 07.24.24 pt reports she was in the ER in May for blood in her stools. Pt reports she is having 4+ bowel movements a day, mostly diarrhea; is going shortly after eating. Does endorse fecal incontinence. Reports she has not seen blood in her stool since ER visit. Pt reports abdominal tenderness. Reports she had a colonoscopy a few years ago. Reports HB 1-2 times a week after she eats; tums are effective. PFSH Medical History Rheumatoid arthritis Wears glasses Post-menopausal Depression Alcohol use Arthritis High cholesterol Easy bruising Excessive bleeding Neck pain Restless legs History of IBS History of diverticulitis Heartburn Gastric reflux Non-smoker CPAP (continuous positive airway pressure) dependence On home oxygen therapy Leg cramps Fibromyalgia History of stress test Cardiology follow-up encounter Hx of hydrocephalus History of tennis elbow Nonrheumatic aortic (valve) insufficiency Acute respiratory failure with hypoxia COVID-19 Valvular heart disease Non-rheumatic tricuspid valve insufficiency Essential hypertension Tricuspid insufficiency Thoracic aneurysm without mention of rupture Hyperlipidemia Abnormal electrocardiogram Nonrheumatic mitral valve disorder, unspecified Nonrheumatic aortic valve disorder, unspecified Abnormal echocardiogram Ascending aortic aneurysm Anxiety Diverticulitis Surgical History History of hip replacement Hx of shoulder surgery Hx of appendectomy Hx of tubal ligation Hx of rotator cuff surgery History of hernia repair History of colon surgery ( 10/2017) Family History Father CAD (coronary artery disease) Mother aneursym Social History Smoking Status: Former smoker alcohol intake: never substance use type: does not use caffeine: Yes Type: tea Number of servings: 1 what type of physical activity do you participate in: walking frequency: daily duration: < 15 jacob (more content not included)... Normal [facility] CNPNon 07-23-2024 CNPN Normal [facility] BACTERIAL VAGINOSIS NAATon 1 09-16-2023 Lactobacillus crispatus+gasseri+tomasz senii + Gardnerella vaginalis + Atopobium vaginae rRNA MICHELLE+probe Ql (Vag fld) Negative Normal Negative for bacterial vaginosis [facility] Comment on above: Order Comment: Speci men Type: SWABOrdering Facility: [facility] Address: [address] [place] [address] Performed By: #### B VAMP, CVTV ####[facility] LABCLIA [id number] [place] [address] [place] LONA/TRICHOMONAS NAATon 1 09-16-2023 C. glabrata RNA MICHELLE+probe Ql (Vag fld) Negative Normal Negative for Lona glabrata [facility] Comment on above: Order Comment: Speci men Type: SWABOrdering Facility: [facility] Address: [address] [place] [address] Performed By: #### B VAMP, CVTV ####[facility] LABCLIA [id number] [place] [address] [place] Lona sp DNA MICHELLE+probe Ql (Vag fld) Negative Normal Negative for Lona species [facility] Comment on above: Order Comment: Speci men Type: SWABOrdering Facility: [facility] Address: [address] [place] [address] Performed By: #### B VAMP, CVTV ####[facility] LABCLIA [id number] [place] [address] [place] T. vaginalis DNA MICHELLE+probe Ql (Unsp spec) Negative Normal Negative for Trichomonas vaginalis by amplification [facility] Comment on above: Order Comment: Speci men Type: SWABOrdering Facility: [facility] Address: [address] [place] [address] Performed By: #### B VAMP, CVTV ####[facility] LABCLIA [id number] [place] [address] [place] CNOVon 07-17-2024 CNOV Normal [facility] HIGH RISK HUMAN PAPILLOMA ADITI (HPV), PCR FOR DETECTION AND GENOTYPINGon 07-17-2024 HPV 16 Ag Ql (Unsp spec) Not detected Normal Not detected [facility] Comment on above: Order Comment: Speci men Type: FLUID SPECIMENOrdering Facility: [facility] Address: [address] [place] [address] Performed By: #### H PVHRT ####[facility] LABCLIA [id number] [place] [address] [place] HPV 18 Ag Ql (Unsp spec) Not detected Normal Not detected [facility] Comment on above: Order Comment: Speci men Type: FLUID SPECIMENOrdering Facility: [facility] Address: [address] [place] [address] Performed By: #### H PVHRT ####[facility] LABIA [id number] [place] [address] [place] HPV 31+33+35+39+45+51+52+ 56+58+59+66+68 DNA MICHELLE+probe Ql (Cvx) Detected Abnormal Not detected [facility] Comment on above: Order Comment: Speci men Type: FLUID SPECIMENOrdering Facility: [facility] Address: [address] [place] [address] Result Comment: High Risk HPV Other Type includes HPV types 31, 33, 35, 39, 45, 51, 52, 56, 58, 59, 66 and 68. Performed By: #### H PVHRT ####[facility] LABIA [id number] [place] [address] [place] PAP TESTon 07-17-2024 ADEQUACY Satisfactory for interpretation. Normal [facility] Comment on above: Order Comment: Speci men Type: FLUID SPECIMENOrdering Facility: [facility] Address: [address] [place] [address] Performed By: #### L [id number] ####[facility] LABIA [id number] [place] [address] [place] CASE REPORT Normal [facility] Comment on above: Order Comment: Speci men Type: FLUID SPECIMENOrdering Facility: [facility] Address: [address] [place] [address] Result Comment: Gyne cologic Cytology Report Case: [id number] Provider: Kimberly Grajeda APRN.ELEVATOR CONSTRUCTOR HYDRAULIC Collected: 07/17/2024 09:50 AMOrdering Location: OB/Gynecology Received: 07/17/2024 12:46 PMFirst Screen: Tony Valdez, CT, ASCPSpecimen: Pap Test, ThinPrep, Vagina Performed By: #### L [id number] ####[facility] LABCLIA [id number] [place] [address] [place] CLINICAL HISTORY, CYTOLOGY, SKIING TEACHER Positive Normal [facility] Comment on above: Order Comment: Speci men Type: FLUID SPECIMENOrdering Facility: [facility] Address: [address] [place] [address] Result Comment: Hyst erectomy, Total Performed By: #### L [id number] ####[facility] LABCLIA [id number] [place] [address] [place] CYTOLOGY PAP OTHER INTERPRETATION Atrophic specimen. Normal [facility] Comment on above: Order Comment: Speci men Type: FLUID SPECIMENOrdering Facility: [facility] Address: [address] [place] [address] Performed By: #### L [id number] ####[facility] LABCLIA [id number] [place] [address] [place] FINAL PERFORMING LAB Normal [facility] Comment on above: Order Comment: Speci men Type: FLUID SPECIMENOrdering Facility: [facility] Address: [address] [place] [address] Result Comment: Tech nical component, financial services consultant screening performed at [facility], [address] [place] [address] CLIA# [id number] interpretation performed at [facility], [address] [place] [address] CLIA# [id number] Director: Sandor Domínguez M.D. Performed By: #### L [id number] ####[facility] LABCLIA [id number] [place] [address] [place] INTERPRETATION, CYTOLOGY, SKIING TEACHER Normal [facility] Comment on above: Order Comment: Speci men Type: FLUID SPECIMENOrdering Facility: [facility] Address: [address] [place] [address] Result Comment: Nega tive for intraepithelial lesion or malignancy. Performed By: #### L [id number] ####[facility] LABCLIA [id number] [place] [address] [place] PAP DISCLAIMER COMMENT The Pap Smear is a screening test for cervical cancer. False negative results occur with all screening tests, emphasizing the need for rescreening at recommended intervals, and clinical correlation. Normal [facility] Comment on above: Order Comment: Speci men Type: FLUID SPECIMENOrdering Facility: [facility] Address: [address] [place] [address] Performed By: #### L [id number] ####[facility] LABCLIA [id number] [place] [address] [place] PAP FOOD OR BAGGAGE HANDLING RAMPMAN COMMENT Normal [facility] Comment on above: Order Comment: Speci men Type: FLUID SPECIMENOrdering Facility: [facility] Address: [address] [place] [address] Performed By: #### L [id number] ####[facility] LABCLIA [id number] [place] [address] [place] CNPNon 07-16-2024 CNPN [address] [facility] CT ABD/PEL W IVCONon 024 CT ABD/PEL W IVCON Normal [facility] CT Abdomen and Pelvis W cont rast Izabel 07-16-2024 IMPRESSION: No CT evidence of acute abnormality in the abdomen or pelvis Buggy Driver: SANDRA Transcribe Date/Time: Jul 16 2024 3:15P Dictated by : NIKHIL DELGADO MD This examination was interpreted and the report reviewed and electronically signed by: NIKHIL DELGADO MD on Jul 16 2024 3:23PM [facility] DIVISION OF RADIOLOGY * * *Final Report* * * DATE OF EXAM: Jul 16 2024 3:10PM [facility] 0530 - CT ABD/PEL W IVCON / PROCEDURE REASON: multiple diagnoses * * * * Physician Interpretation * * * * EXAMINATION: CT ABDOMEN AND PELVIS WITH IV CONTRAST CLINICAL HISTORY: Bilateral lower quadrant pain. TECHNIQUE: CT of the abdomen and pelvis was performed using standard technique, scanning from just above the dome of the diaphragm to the symphysis pubis. MQ: CTAP_3 Contrast: IV: 100 ml of Omnipaque 350 Oral: 10 ml of Omni 240 10-25ml diluted with water CT Radiation dose: Integrated Dose-length product (DLP) for this visit = 718 mGy*cm. CT Dose Reduction Employed: Automated exposure control(AEC) and iterative recon COMPARISON: CT abdomen pelvis dated 10/01/2023 RESULT: Liver: Hepatic steatosis. No mass. Biliary: No bile duct dilation. Gallbladder present without evidence of radiopaque stones or wall thickening. Spleen: No mass. No splenomegaly. Pancreas: No mass or duct dilation. Adrenals: No mass. Kidneys: 5.9 cm exophytic right renal upper to mid pole cyst. Symmetric nephrograms with no evidence of hydronephrosis. GI tract: No dilation or wall thickening. Appendix not definitively identified. However, no appreciable inflammatory changes in the right lower quadrant. Surgical suture line in the sigmoid colon. Lymph nodes: No abdominal or pelvic lymphadenopathy. Mesentery/Peritoneum: No ascites or mass. Retroperitoneum: No mass. Vasculature: Scattered arterial atherosclerotic calcifications. Pelvis: Evaluation degraded by extensive streak artifact from bilateral hip prostheses. No gross mass, ascites or fluid collection. Bones/Soft Tissues: Bilateral hip prostheses. Degenerative changes in the spine. Lower thorax: Mild atelectatic changes Localizer images: No additional findings. DIVISION OF RADIOLOGY Provider, [facility] - 07/16/2024 * * *Final Report* * * DATE OF EXAM: Jul 16 2024 3:10PM [facility]30 - CT ABD/PEL W IVCON / PROCEDURE REASON: multiple diagnoses * * * * Physician Interpretation * * * * EXAMINATION: CT ABDOMEN AND PELVIS WITH IV CONTRAST CLINICAL HISTORY: Bilateral lower quadrant pain. TECHNIQUE: CT of the abdomen and pelvis was performed using standard technique, scanning from just above the dome of the diaphragm to the symphysis pubis. MQ: CTAP_3 Contrast: IV: 100 ml of Omnipaque 350 Oral: 10 ml of Omni 240 10-25ml diluted with water CT Radiation dose: Integrated Dose-length product (DLP) for this visit = 718 mGy*cm. CT Dose Reduction Employed: Automated exposure control(AEC) and iterative recon COMPARISON: CT abdomen pelvis dated 10/01/2023 RESULT: Liver: Hepatic steatosis. No mass. Biliary: No bile duct dilation. Gallbladder present without evidence of radiopaque stones or wall thickening. Spleen: No mass. No splenomegaly. Pancreas: No mass or duct dilation. Adrenals: No mass. Kidneys: 5.9 cm exophytic right renal upper to mid pole cyst. Symmetric nephrograms with no evidence of hydronephrosis. GI tract: No dilation or wall thickening. Appendix not definitively identified. However, no appreciable inflammatory changes in the right lower quadrant. Surgical suture line in the sigmoid colon. Lymph nodes: No abdominal or pelvic lymphadenopathy. Mesentery/Peritoneum: No ascites or mass. Retroperitoneum: No mass. Vasculature: Scattered arterial atherosclerotic calcifications. Pelvis: Evaluation degraded by extensive streak artifact from bilateral hip prostheses. No gross mass, ascites or fluid collection. Bones/Soft Tissues: Bilateral hip prostheses. Degenerative changes in the spine. Lower thorax: Mild atelectatic changes Localizer images: No additional findings. IMPRESSION IMPRESSION: No CT evidence of acute abnormality in the abdomen or pelvis Buggy Driver: SANDRA Transcribe Date/Time: Jul 16 2024 3:15P Dictated by : NIKHIL DELGADO MD This examination was interpreted and the report reviewed and electronically signed by: NIKHIL DELGADO MD on Jul 16 2024 3:23PM EST [facility] Radiology Study observation (narrative) [facility] CT Abdomen and Pelvis W cont rast IVOrdered By: Ccf Provider on 07-16-2024 [facility] US KIDNEY/BLADDERon 07-16-20 24 US KIDNEY/BLADDER Normal [facility] Kidney - bilateral and Ur inary bladderon 07-16-2024 IMPRESSION: Simple right renal upper pole cyst. Buggy Driver: SANDRA Transcribe Date/Time: Jul 16 2024 3:32P Dictated by : NIKHIL DELGADO MD This examination was interpreted and the report reviewed and electronically signed by: NIKHIL DELGADO MD on Jul 16 2024 3:34PM [facility] DIVISION OF RADIOLOGY * * *Final Report* * * DATE OF EXAM: Jul 16 2024 9:52AM [facility] 1055 - US KIDNEY/BLADDER / PROCEDURE REASON: Gross hematuria * * * * Physician Interpretation * * * * EXAMINATION: RENAL ULTRASOUND CLINICAL HISTORY: Gross hematuria TECHNIQUE: Sonography of the kidneys and urinary bladder was performed. Images were obtained and stored in a permanent archive and interpreted remotely. MQ: UR_1 COMPARISON: CT abdomen pelvis dated 10/01/2019 RESULT: Right Kidney: -Renal length: 11.5 cm -Parenchyma: Normal parenchymal echogenicity. Normal parenchymal thickness. -Collecting system: No hydronephrosis. -Calculus: No echogenic, shadowing calculus. -Lesion: Partially exophytic 5.9 cm simple right renal upper pole cyst Left Kidney: -Renal length: 10.8 cm -Parenchyma: Normal parenchymal echogenicity. Normal parenchymal thickness. -Collecting system: No hydronephrosis. -Calculus: No echogenic, shadowing calculus. -Lesion: None. Bladder: Incompletely distended with prevoid bladder volume of 24 mL. Post void bladder volume measures 6 mL. DIVISION OF RADIOLOGY Provider, [facility] - 07/16/2024 * * *Final Report* * * DATE OF EXAM: Jul 16 2024 9:52AM [facility] 1055 - US KIDNEY/BLADDER / PROCEDURE REASON: Gross hematuria * * * * Physician Interpretation * * * * EXAMINATION: RENAL ULTRASOUND CLINICAL HISTORY: Gross hematuria TECHNIQUE: Sonography of the kidneys and urinary bladder was performed. Images were obtained and stored in a permanent archive and interpreted remotely. MQ: UR_1 COMPARISON: CT abdomen pelvis dated 10/01/2019 RESULT: Right Kidney: -Renal length: 11.5 cm -Parenchyma: Normal parenchymal echogenicity. Normal parenchymal thickness. -Collecting system: No hydronephrosis. -Calculus: No echogenic, shadowing calculus. -Lesion: Partially exophytic 5.9 cm simple right renal upper pole cyst Left Kidney: -Renal length: 10.8 cm -Parenchyma: Normal parenchymal echogenicity. Normal parenchymal thickness. -Collecting system: No hydronephrosis. -Calculus: No echogenic, shadowing calculus. -Lesion: None. Bladder: Incompletely distended with prevoid bladder volume of 24 mL. Post void bladder volume measures 6 mL. IMPRESSION IMPRESSION: Simple right renal upper pole cyst. Buggy Driver: SANDRA Transcribe Date/Time: Jul 16 2024 3:32P Dictated by : NIKHIL DELGADO MD This examination was interpreted and the report reviewed and electronically signed by: NIKHIL DELGADO MD on Jul 16 2024 3:34PM EST [facility] Radiology Study observation (narrative) [facility] US Kidney - bilateral and Ur inary bladderOrdered By: Ccf Provider on 07-16-2024 [facility] CNOVon 07-15-2024 CNOV [address] [facility] CNPNon 07-13-2024 CNPN Normal [facility] Bacteria Ur Culton Bacteria identified Cx Nom (U) ORGANISM ID: 1 <10,000 CFU/ml Normal urogenital tyrone Normal [facility] Comment on above: Performed By: #### 6 30-4 ####[facility] LABCLIA [id number] [place] [address] [place] CBC W Auto Differential pane l (Bld)on 07-10-2024 Basophils (Bld) [#/Vol] 10*3/uL Normal <0.[address] [facility] Comment on above: Order Comment: Speci men Type: BLOOD SPECIMENOrdering Facility: [facility] Address: [address] [place] [address] Performed By: #### 5 7021-8, 4537 ####[facility] LABCLIA [id number] [place] [address] [place] Basophils/100 WBC (Bld) 0.3 % Normal [facility] Comment on above: Order Comment: Speci men Type: BLOOD SPECIMENOrdering Facility: [facility] Address: [address] [place] [address] Performed By: #### 5 7021-8, 45377 ####[facility] LABCLIA [id number] [place] [address] [place] Differential cell count method Nom (Bld) Auto Normal [facility] Comment on above: Order Comment: Speci men Type: BLOOD SPECIMENOrdering Facility: [facility] Address: [address] [place] [address] Performed By: #### 5 7021-8, 4536-7 ####[facility] LABCLIA [id number] [place] [address] [place] Eosinophils (Bld) [#/Vol] 0.13 10*3/uL Normal <0.[address] [facility] Comment on above: Order Comment: Speci men Type: BLOOD SPECIMENOrdering Facility: [facility] Address: [address] [place] [address] Performed By: #### 5 7021-8, 7 ####[facility] LABCLIA [id number] [place] [address] [place] Eosinophils/100 WBC (Bld) 2.1 % Normal [facility] Comment on above: Order Comment: Speci men Type: BLOOD SPECIMENOrdering Facility: [facility] Address: [address] [place] [address] Performed By: #### 5 7021-8, 4536-7 ####[facility] LABCLIA [id number] [place] [address] [place] Erythrocyte distribution width (RBC) [Ratio] 13.4 % Normal 11.5-15.[address] [facility] Comment on above: Order Comment: Speci men Type: BLOOD SPECIMENOrdering Facility: [facility] Address: [address] [place] [address] Performed By: #### 5 7021-8, 4536-7 ####[facility] LABCLIA [id number] [place] [address] [place] Hematocrit (Bld) [Volume fraction] 37.8 % Normal 36.0-46.[address] [facility] Comment on above: Order Comment: Speci men Type: BLOOD SPECIMENOrdering Facility: [facility] Address: [address] [place] [address] Performed By: #### 5 7021-8, 4537-7 ####[facility] LABCLIA [id number] [place] [address] [place] Hemoglobin (Bld) [Mass/Vol] 13.1 g/dL Normal 11.5-15.[address] [facility] Comment on above: Order Comment: Speci men Type: BLOOD SPECIMENOrdering Facility: [facility] Address: [address] [place] [address] Performed By: #### 5 7021-8, 4537-7 ####[facility] LABCLIA [id number] [place] [address] [place] Immature granulocytes (Bld) [#/Vol] 10*3/uL Normal <0.[address] [facility] Comment on above: Order Comment: Speci men Type: BLOOD SPECIMENOrdering Facility: [facility] Address: [address] [place] [address] Performed By: #### 5 7021-8, 4536-7 ####[facility] LABCLIA [id number] [place] [address] [place] Immature granulocytes/100 WBC (Bld) 0.3 % Normal [facility] Comment on above: Order Comment: Speci men Type: BLOOD SPECIMENOrdering Facility: [facility] Address: [address] [place] [address] Performed By: #### 5 7021-8, 7-7 ####[facility] LABCLIA [id number] [place] [address] [place] Lymphocytes (Bld) [#/Vol] 1.88 10*3/uL Normal 1.00-4.[address] [facility] Comment on above: Order Comment: Speci men Type: BLOOD SPECIMENOrdering Facility: [facility] Address: [address] [place] [address] Performed By: #### 5 7021-8, 4537-7 ####[facility] LABCLIA [id number] [place] [address] [place] Lymphocytes/100 WBC (Bld) 29.7 % Normal [facility] Comment on above: Order Comment: Speci men Type: BLOOD SPECIMENOrdering Facility: [facility] Address: [address] [place] [address] Performed By: #### 5 7021-8, 453-7 ####[facility] LABIA [id number] [place] [address] [place] MCH (RBC) [Entitic mass] 32.3 pg Normal 26.0-34.[address] [facility] Comment on above: Order Comment: Speci men Type: BLOOD SPECIMENOrdering Facility: [facility] Address: [address] [place] [address] Performed By: #### 5 7021-8, 4536-7 ####[facility] LABIA [id number] [place] [address] [place] MCHC (RBC) [Mass/Vol] 34.7 g/dL Normal 30.5-36.0 [facility] Comment on above: Order Comment: Speci men Type: BLOOD SPECIMENOrdering Facility: [facility] Address: [address] [place] [address] Performed By: #### 5 7021-8, 4537-7 ####[facility] LABIA [id number] [place] [address] [place] MCV (RBC) [Entitic vol] 93.3 fL Normal 80.0-100.[address] [facility] Comment on above: Order Comment: Speci men Type: BLOOD SPECIMENOrdering Facility: [facility] Address: [address] [place] [address] Performed By: #### 5 7021-8, 4536-7 ####[facility] LABCLIA [id number] [place] [address] [place] Monocytes (Bld) [#/Vol] 0.63 10*3/uL Normal <0.[address] [facility] Comment on above: Order Comment: Speci men Type: BLOOD SPECIMENOrdering Facility: [facility] Address: [address] [place] [address] Performed By: #### 5 7021-8, 4536-7 ####[facility] LABCLIA [id number] [place] [address] [place] Monocytes/100 WBC (Bld) 10.0 % Normal [facility] Comment on above: Order Comment: Speci men Type: BLOOD SPECIMENOrdering Facility: [facility] Address: [address] [place] [address] Performed By: #### 5 7021-8, 7 ####[facility] LABCLIA [id number] [place] [address] [place] Neutrophils (Bld) [#/Vol] 3.65 10*3/uL Normal 1.45-7.[address] [facility] Comment on above: Order Comment: Speci men Type: BLOOD SPECIMENOrdering Facility: [facility] Address: [address] [place] [address] Performed By: #### 5 7021-8, 7 ####[facility] LABCLIA [id number] [place] [address] [place] Neutrophils/100 WBC (Bld) 57.6 % Normal [facility] Comment on above: Order Comment: Speci men Type: BLOOD SPECIMENOrdering Facility: [facility] Address: [address] [place] [address] Performed By: #### 5 7021-8, 4536-7 ####[facility] LABCLIA [id number] [place] [address] [place] Nucleated RBC (Bld) [#/Vol] 10*3/uL Normal <0.[address] [facility] Comment on above: Order Comment: Speci men Type: BLOOD SPECIMENOrdering Facility: [facility] Address: [address] [place] [address] Performed By: #### 5 7021-8, 4537-7 ####[facility] LABCLIA [id number] [place] [address] [place] Nucleated RBC/100 WBC (Bld) [Ratio] 0.0 /100 WBC Normal [facility] Comment on above: Order Comment: Speci men Type: BLOOD SPECIMENOrdering Facility: [facility] Address: [address] [place] [address] Performed By: #### 5 7021-8, 4537-7 ####[facility] LABCLIA [id number] [place] [address] [place] Platelet mean volume (Bld) [Entitic vol] 12.8 fL High 9.0-12.[address] [facility] Comment on above: Order Comment: Speci men Type: BLOOD SPECIMENOrdering Facility: [facility] Address: [address] [place] [address] Performed By: #### 5 7021-8, 4537-7 ####[facility] LABCLIA [id number] [place] [address] [place] Platelets (Bld) [#/Vol] 169 10*3/uL Normal 150-[address] [facility] Comment on above: Order Comment: Speci men Type: BLOOD SPECIMENOrdering Facility: [facility] Address: [address] [place] [address] Performed By: #### 5 7021-8, 4537-7 ####[facility] LABCLIA [id number] [place] [address] [place] RBC (Bld) [#/Vol] 4.05 10*6/uL Normal 3.90-5.20 [facility] Comment on above: Order Comment: Speci men Type: BLOOD SPECIMENOrdering Facility: [facility] Address: [address] [place] [address] Performed By: #### 5 7021-8, 4537-7 ####[facility] LABCLIA [id number] [place] [address] [place] WBC (Bld) [#/Vol] 6.33 10*3/uL Normal 3.70-11.00 [facility] Comment on above: Order Comment: Speci men Type: BLOOD SPECIMENOrdering Facility: [facility] Address: [address] [place] [address] Performed By: #### 5 7021-8, 4537-7 ####[facility] LABCLIA [id number] [place] [address] [place] CRP SerPl-mCncon 07-10-2024 CRP [Mass/Vol] mg/L Normal <0.[address] [facility] Comment on above: Order Comment: Speci men Type: BLOOD SPECIMENOrdering Facility: [facility] Address: [address] [place] [address] Performed By: #### 2 4323-8, 1988-01 ####[facility] LABCLIA [id number] [place] [address] [place] Comprehensive metabolic 2000 panelon 07-10-2024 Albumin [Mass/Vol] 4.4 g/dL Normal 3.9-4.9 [facility] Comment on above: Order Comment: Speci men Type: BLOOD SPECIMENOrdering Facility: [facility] Address: [address] [place] [address] Performed By: #### 2 4323-8, 1988-01 ####[facility] LABCLIA [id number] [place] [id number] [place] ALP [Catalytic activity/Vol] 152 U/L High 34-[address] [facility] Comment on above: Order Comment: Speci men Type: BLOOD SPECIMENOrdering Facility: [facility] Address: [address] [place], [place] [address] Performed By: #### 2 4323-8, 1988-01 ####[facility] LABCLIA [id number] [address] [address] [place] ALT [Catalytic activity/Vol] 25 U/L Normal 7-[address] [facility] Comment on above: Order Comment: Speci men Type: BLOOD SPECIMENOrdering Facility: [facility] Address: [address] [place], [place] [address] Performed By: #### 2 4328, 1988-01 ####[facility] LABCLIA [id number] [place] [address] [place] Anion gap [Moles/Vol] 17 mmol/L High 8-15 [facility] Comment on above: Order Comment: Speci men Type: BLOOD SPECIMENOrdering Facility: [facility] Address: [address] [place] [address] Performed By: #### 2 43238, 1988-01 ####[facility] LABCLIA [id number] [place] [address] [place] AST [Catalytic activity/Vol] 25 U/L Normal 13-[address] [facility] Comment on above: Order Comment: Speci men Type: BLOOD SPECIMENOrdering Facility: [facility] Address: [address] [place], [place] [address] Performed By: #### 2 4323-8, 1988-01 ####[facility] LABCLIA [id number] [place] [id number] [place] Bilirubin [Mass/Vol] 0.3 mg/dL Normal 0.2-1.3 [facility] Comment on above: Order Comment: Speci men Type: BLOOD SPECIMENOrdering Facility: [facility] Address: [address] [place], [place] [address] Performed By: #### 2 43211-08, 1988-01 ####[facility] LABCLIA [id number] [facility] [address] [address] [place] Calcium [Mass/Vol] 9.5 mg/dL Normal 8.5-10.2 [facility] Comment on above: Order Comment: Speci men Type: BLOOD SPECIMENOrdering Facility: [facility] Address: [address] [place], [place] [address] Performed By: #### 2 4323-04, 1988-01 ####[facility] LABCLIA [id number] [facility] [address] [address] [place] Chloride [Moles/Vol] 104 mmol/L Normal 98-107 [facility] Comment on above: Order Comment: Speci men Type: BLOOD SPECIMENOrdering Facility: [facility] Address: [address] [place] [address] Performed By: #### 2 4323-04, 1988-01 ####[facility] LABCLIA [id number] [place] [id number] [place] CO2 [Moles/Vol] 22 mmol/L Normal 22-[address] [facility] Comment on above: Order Comment: Speci men Type: BLOOD SPECIMENOrdering Facility: [facility] Address: [address] [place], [place] [address] Performed By: #### 2 4323-04, 1988-01 ####[facility] LABCLIA [id number] [address] [address] [place] Creatinine [Mass/Vol] 0.83 mg/dL Normal 0.58-0.96 [facility] Comment on above: Order Comment: Speci men Type: BLOOD SPECIMENOrdering Facility: [facility] Address: [address] [place], [place] [address] Performed By: #### 2 4323-04, 1988-01 ####[facility] LABCLIA [id number] [address] [address] [place] Creatinine and Glomerular filtration rate.predicted panel (S/P/Bld) 78 mL/min/1.73m??? Normal >=[address] [facility] Comment on above: Order Comment: Isaac greene Type: BLOOD SPECIMENOrdering Facility: [facility] Address: [address] [place] [address] Result Comment: Kristal mated Glomerular Filtration Rate (eGFR) is calculated using the 2020 CKD-EPI creatinine equation. This equation utilizes serum creatinine, sex, and age as parameters. The creatinine assay has traceable calibration to isotope dilution-mass spectrometry. Refer to KDIGO guidelines for clinical interpretation. In patients with unstable renal function, e.g. those with acute kidney injury, the eGFR may not accurately reflect actual GFR. Performed By: #### 2 4323, 1988-01 ####[facility] LABCLIA [id number] [place] [address] [place] Glucose [Mass/Vol] 124 mg/dL High 74-99 [facility] Comment on above: Order Comment: Isaac greene Type: BLOOD SPECIMENOrdering Facility: [facility] Address: [address] [place] [address] Result Comment: The [place] [employer] (ADA) provides guidance for cutoff values for fasting glucose and random glucose. The ADA defines fasting as no caloric intake for at least 8 hours. Fasting plasma glucose results between 100 to 125 mg/dL indicate increased risk for diabetes (prediabetes).Fasting plasma glucose results greater than or equal to 126 mg/dL meet the criteria for diagnosis of diabetes. In the absence of unequivocal hyperglycemia, results should be confirmed by repeat testing. In a patient with classic symptoms of hyperglycemia or hyperglycemic crisis, random plasma glucose results greater than or equal to 200 mg/dL meet the criteria for diagnosis of diabetes.Reference: Standards of Medical Care in Diabetes 2016, [place] [employer]. Diabetes Care. 2016.39(Suppl 1). Performed By: #### 2 43238, 1988-01 ####[facility] LABCLIA [id number] [place] [address] [place] Potassium [Moles/Vol] 4.2 mmol/L Normal 3.7-5.1 [facility] Comment on above: Order Comment: Speci men Type: BLOOD SPECIMENOrdering Facility: [facility] Address: [address] [place], [place] [address] Performed By: #### 2 43211-08, 1988-01 ####[facility] LABCLIA [id number] [address] [address] [place] Protein [Mass/Vol] 6.7 g/dL Normal 6.3-8.0 [facility] Comment on above: Order Comment: Speci men Type: BLOOD SPECIMENOrdering Facility: [facility] Address: [address] [place], [place] [address] Performed By: #### 2 43211-08, 1988-01 ####[facility] LABIA [id number] [place] [id number] [place] Sodium [Moles/Vol] 143 mmol/L Normal 136-144 [facility] Comment on above: Order Comment: Speci men Type: BLOOD SPECIMENOrdering Facility: [facility] Address: [address] [place], [place] [address] Performed By: #### 2 4323-04, 1988-01 ####[facility] LABIA [id number] [place] [address] [place] Urea nitrogen [Mass/Vol] 21 mg/dL Normal 7-[address] [facility] Comment on above: Order Comment: Speci men Type: BLOOD SPECIMENOrdering Facility: [facility] Address: [address] [place], [place] [address] Performed By: #### 2 4328, 1988-01 ####[facility] LABIA [id number] [place] [id number] [place] ESR Westergren method (Bld) [Velocity]on 07-10-2024 ESR (Bld) [Velocity] 10 mm/h Normal 0-20 [facility] Comment on above: Order Comment: Speci men Type: BLOOD SPECIMENOrdering Facility: [facility] Address: [address] [place] [address] Performed By: #### 5 7021-8, 4537-7 ####[facility] LABIA [id number] [place] [address] [place] Bacteria Ur Culton Bacteria identified Cx Nom (U) Normal [facility] Comment on above: Performed By: #### 6 30-4 ####[facility] LABCLIA [id number] [address] [place] CNOVon 07-08-2024 CNOV Office Visit (JOSE ) -------- MARCINKRISTINA ([id number]) 1960 F Date Time Provider Department 07/08/24 11:00 AM HERBER REED During your visit today, we recorded the following information about you: Temperature Pulse Blood pressure Weight 98.2 degrees 57/minute 139/75 92.5 kg Height 1.724 m Herber Reed PA-C 07/08/2024 11:36 AM Signed [facility] Herber Reed [address] [place] [address] Subjective Last OV: 05/26/24 HPI: Kristina Carranza Marcin is a 64 year old female who presents for follow up of RA, OA, fibro. She reports she was diagnosed with a UTI and will be starting antibiotics today for 5 days. She notes she was found to have fatty liver on an abd US and she self d/c MTX 2 days ago. No missed doses of MTX. Was not told to d/c the medication. She notes her knees and back continue to hurt. Her L hip and L shoulder also are painful. She will be seeing [facility] for nerves to get burnt to help with her pain. She notes no joint swelling. Rheumatologic disease history: First OV date: 02/07/23 Diagnosis: RA, OA, fibro Serologies: CCP 81, RF 29, SANIYA neg, SSA/SSB neg Erosions: none Current therapy: MTX 15 mg weekly, folic acid 1 mg daily, celebrex 200 mg BID Prior therapy: oxycodone, ultram, relafen, meloxicam, cymbalta, lyrica, gabapentin DXA: 06/22/2023 Interval Review of Systems CONSTITUTIONAL: Recent Weight change: No Fever: No EENT: Dryness in eyes: No Dryness of mouth: No Oral ulcers: No CARDIOVASCULAR: Pain in chest: No RESPIRATORY: Shortness of breath: No Cough: No GASTROINTESTINAL: Nausea: No Vomiting: No Changes in bowel movements: No Heartburn: No MUSCULOSKELETAL: Per HPI INTEGUMENTARY: Rash: No NEUROLOGICAL SYSTEM: Headaches: No All other ROS reviewed, pertinent positives in HPI PAST MEDICAL HISTORY Diagnosis Date Abnormal mammogram Acute respiratory disease due to COVID-19 virus 06/16/[address] Scott Quarles Advance directive discussed with patient 04/06/2022 Discussed 04/06/2022 Arthritis of knee, left 01/31/2013 Arthritis of left hip 01/19/2016 Arthritis of left shoulder region 10/10/2023 Ascending aorta dilatation (HCC) 07/04/201716: 4.2 cm [...] Dependence on nocturnal oxygen therapy 04/24/2023 Seeing [facility] Elevated hemoglobin A1c 04/24/2023 Essential tremor 04/06/2022 Ex-smoker 04/06/2022 Excessive or frequent menstruation Heavy periods Fatty liver Fibromyalgia 02/26/2014 Gastroesophageal reflux disease without esophagitis 04/24/2023 Hemorrhage of gastrointestinal tract, unspecified History of COVID-19 06/13/202105/2021 Hydrocephalus, adult ([facility]) 02/09/2003 Hypertension, essential 01/22/2019 Living will on file 04/06/2022 DPA: Dustin () Lung nodule 01/24/2022 Seeing pulm Migraines 07/26/2021 Used to see neuro and was getting Botox Mild dysplasia of cervix 2006 Mixed hyperlipidemia 01/20/2016 Nonrheumatic mitral valve disorder, unspecified 04/06/2016 Obstructive sleep apnea 10/13/2016 DME - [facility] Plantar fasciitis 2018 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 Scott Quarles Postcoital bleeding Primary insomnia 06/13/2021 Primary osteoarthritis of both knees 11/15/2022 Primary osteoarthritis of both shoulders 04/06/2022 Seeing [facility] Rectocele 04/19/2007 Renal cyst 07/13/2016 Rheumatoid arthritis ([facility]) 04/24/2023 Seeing Rheum. Right knee pain Situational mixed anxiety and depressive disorder 11/12/2017 Spinal stenosis, lumbar region, without neurogenic claudication 11/15/2022 Thoracic aortic aneurysm without rupture ([facility]) 2018 Urge incontinence 04/19/2007 Vitamin D deficiency [...] Dilation AND curettage EGD 05/05/2022 mild gastritis ESOPHAGOGASTRODUODENOSCO PY TRANSORAL DIAGNOSTIC 09/19/2019 EGD LIG/TRNSXJ FLP TUBE ABDL/VAG APPR UNI/BI 1990AN (more content not included)... Normal [facility] CNOV Normal [facility] UA DIP, URINE (POC)on 2023 BILIRUBIN UA (POCT) Negative Negative [facility] CLARITY UA (POCT) Clear [facility] COLOR UA (POCT) Yellow [facility] GLUCOSE UA (POCT) Negative Negative mg/dL [facility] Hemoglobin Ql (U) Large Abnormal Negative [facility] Interpretation and review of laboratory results Abnormal [facility] KETONE UA (POCT) Negative Negative mg/dL [facility] LEUKOCYTES UA (POCT) Moderate Abnormal Negative [facility] NITRITE UA (POCT) Negative Negative [facility] PH UA (POCT) 5.5 4.5 - 8.0 [facility] Protein Ql (U) Trace Abnormal Negative mg/dL [facility] SPECIFIC GRAVITY UA (POCT) >=1.030 1.005 - 1.030 [facility] UROBILINOGEN UA (POCT) 0.2 Normal E.U./dL [facility] Location:[address], [place], [place], [id number] [place] [address] POINT OF CARE [facility] CNPNon 07-01-2024 CNPN Normal [facility] CNOVon 06-17-2024 CNOV [address] [facility] CNPNon 06-17-2024 CNPN Normal [facility] Cardiology Visit Reporton Cardiology Visit Report [facility] [place] [id number] [facility]. [address] [place], [place] [address] OFFICE VISIT Date of Service: 06/17/24 MR#: [id number] Acct: [id number] Name: KRISTINA BURCH Rep #: [id number] : 1960 Provider: CRISTOFER bell Age/Sex: 64/F Location: [facility] Status: Signed [facility] History of Present Illness Details: This is a 64-year-old white female who presents today for outpatient cardiovascular follow-up of history of underlying valvular heart disease, hyperlipidemia, hypertension, and thoracic aortic aneurysm-without rupture. Chest CTA from 08/18/2021 showed minimal dilation of the proximal ascending aorta measuring approximately 4.2 cm in size. Repeat chest CTA in August 2023 showed transverse stable ascending aorta measuring 4.2 cm. She denies chest, arm, jaw, or neck discomfort. She denies palpitations. She denies bilateral lower extremity edema. She denies claudication. She denies shortness of breath with activity, shortness of breath at rest, orthopnea, or PND. She denies chronic cough. She denies significant, sudden weight gain. She continues with intermittent dizziness. She denies lightheadedness, near- syncope, or syncope. She denies blood in urine, blood in stool, or epistaxis. He denies fever with chills. She denies myalgia. She continues with weakness and fatigue. Her exercise level has remained stable. Intake Vital Signs 03/31/24 10:22 05/28/24 08:51 06/17/24 11:01 06/17/24 11:08 Height 5 ft 8 in 5 ft 8 in 5 ft 8 in 5 ft 8 in Weight: 208 lb BMI 31.6 BP 136/84 H Blood Pressure Location Lt brachial Position Sitting Respiration 18 Pulse 69 Pulse Source Monitor Pulse Oximetry (%) 96 Intake Visit Reasons: 3 M Upstairs Maid Required: No Is patient in pain?: No Allergies oxycodone Allergy (Verified 06/17/24 11:03) Swelling hydromorphone (From Dilaudid) Adverse Reaction (Verified 06/17/24 11:03) Other nabumetone (From Relafen) Adverse Reaction (Verified 06/17/24 11:03) Nausea Sulfa (Sulfonamide Antibiotics) Adverse Reaction (Verified 06/17/24 11:03) Nausea tramadol HCl (From Ultram) Adverse Reaction (Verified 06/17/24 11:03) Nausea Medications ???Medication ???Instructions ???Recorded ???Confirmed ???Type multivitamin with folic acid 400 1 tab PO DAILY 06/17/17 06/17/24 History mcg tablet albuterol sulfate 90 mcg/actuation 1 inh inhalation Q6H PRN shortness 05/31/21 06/17/24 Rx aerosol inhaler of breath or wheezing #8.5 grams trazodone 100 mg tablet 100 mg PO QHS 10/24/21 06/17/24 History cholecalciferol (vitamin D3) 125 10,000 unit PO DAILY 01/25/22 06/17/24 History mcg (5,000 unit) tablet azelastine 137 mcg (0.1 %) nasal 2 spray intranasal BID PRN 08/07/22 06/17/24 History spray ALLERGIES cetirizine 10 mg capsule (All Day 10 mg PO DAILY 08/07/22 06/17/24 History Allergy (cetirizine)) clonazepam 0.5 mg tablet (Klonopin) 0.5 mg PO QHS #30 tabs 03/18/24 06/17/24 Rx fluoxetine 40 mg capsule mg PO 03/31/24 06/17/24 History celecoxib 200 mg capsule 200 mg PO DAILY 05/28/24 06/17/24 History atorvastatin 40 mg tablet 40 mg PO QDAY 06/17/24 06/17/24 History budesonide-formoterol HFA 160 2 puff inhalation BID 06/17/24 06/17/24 History mcg-4.5 mcg/actuation aerosol inhaler (Symbicort) folic acid 1 mg tablet 1 mg PO QDAY 06/17/24 06/17/24 History hydrochlorothiazide 25 mg tablet 25 mg PO QDAY PRN 06/17/24 06/17/24 History methotrexate sodium 2.5 mg tablet 2.5 mg PO QWEEK 06/17/24 06/17/24 History metoprolol succinate 100 mg 100 mg PO QHS PRN Elevated blood 06/17/24 06/17/24 Rx tablet,extended release 24 hr pressure #90 tabs Have you fallen in the past year?: No PFSH Medical History Rheumatoid arthritis Wears glasses Post-menopausal Depression Alcohol use Arthritis High cholesterol Easy bruising Excessive bleeding Neck pain Restless legs History of IBS History of diverticulitis Heartburn Gastric reflux Non-smoker CPAP (continuous positive airway pressure) dependence On home oxygen therapy Leg cramps Fibromyalgia History of stress test Cardiology follow-up encounter Hx of hydrocephalus History of tennis elbow Nonrheumatic aortic (valve) insufficiency Acute respiratory failure with hypoxia COVID-19 Valvular heart disease Non-rheumatic tricuspid valve insufficiency Essential hypertension Tricuspid insufficiency Thoracic aneurysm without mention of rupture Hyperlipidemia Abnormal electrocardiogram Nonrheumatic mitral valve disorder, unspecified Nonrheumatic aortic valve disorder, unspecified Abnormal echocardiogram Ascending aortic aneurysm Anxiety Diverticulitis Surgical History Hist (more content not included)... Normal [facility] IgE SerPl-aCncon 06-17-2024 IgE Qn 10.4 kU/l Normal <114.[address] [facility] Comment on above: Order Comment: Speci men Type: BLOOD SPECIMENOrdering Facility: [facility] Address: [address] [place] [address] Performed By: #### 1 9113-0 ####[facility] LABCLIA [id number] [address] [id number] [address] [place] No Panel Informationon 06-17 Sunita OsorioELI ortiz T 06/17/2024 8:35 AM RESPIRATORY THERAPY ORAL EXHALED NITRIC OXIDE SERVICE DATE: 06/17/2024 SERVICE TIME: 8:34 AM Oral Exhaled Nitric Oxide measurement: 19.0 (ppb) Normal: Adult <25 ppb, pediatric (<12 years) <20 ppb High Normal / Increased: Adult 25-50 ppb, pediatric (<12 years) 20-35 ppb Moderately raised exhaled Nitric Oxide may indicate underlying inflammation, but note that: Cold and influenza can raise exhaled Nitric Oxide and some patients have higher baseline exhaled Nitric Oxide levels than others. High: Adult >50 ppb, pediatric (<12 years) >35 ppb Indicative of ongoing eosinophilic inflammation. Symptomatic patient likely to respond to steroids. Possible causes (if already on steroids): Poor compliance, recent allergen exposure, steroid dose inadequate, and steroid resistance. Note that not all patients with high exhaled nitric oxide levels display symptoms. Oral Exhaled Nitric Oxide measurement (Previous Encounters) Test Date Oral Exhaled Nitric Oxide (ppb) 06/17/2024 19.0 NAME: Mónica CONNOR Osorio PATIENT NAME: Kristina Burch DATE: June 17, 2024 TIME: 8:34 AM [facility] NM BONE WHOLE BODYon 024 NM BONE WHOLE BODY Normal [facility] Whole body Bone Viewson IMPRESSION: No scintigraphically evident aggressive osseous process or metabolic bone disease, including Paget's disease of bone. Degenerative/arthritic changes, as described. Radiographic confirmation may be performed, as clinically indicated. Buggy Driver: SANDRA Transcribe Date/Time: Jun 16 2024 4:37P Dictated by : EULALIA ADAMSON MD This examination was interpreted and the report reviewed and electronically signed by: EULALIA ADAMSON MD on Jun 16 2024 4:42PM [facility] DIVISION OF RADIOLOGY * * *Final Report* * * DATE OF EXAM: Jun 16 2024 4:00PM [facility] 0014 - NM BONE WHOLE BODY / PROCEDURE REASON: Elevated alkaline phosphatase level * * * * Physician Interpretation * * * * WHOLE BODY BONE SCAN CLINICAL HISTORY: Elevated alkaline phosphatase TECHNIQUE: 22.6 millicuries Tc-99m MDP mCi technetium 99m MDP IV. Planar images of the whole body obtained in anterior and posterior views at approximately 3 hours post injection. Static images of the lateral skull, oblique ribs and pelvis, palmar hands were obtained. COMPARISON: No prior bone scan CORRELATION: No recent pertinent chest, abdomen and pelvis CT report(s) RESULT: Whole body and static images demonstrate no abnormal foci of increased or decreased uptake. 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 Photopenic defects compatible with bilateral shoulder and hip arthroplasty. Portions of the upper extremities are not visualized, and cannot be assessed for pathology. Increased uptake in the patellofemoral joints, wrists (especially the radial aspect on the right, and MTP joints is likely due to degenerative/arthritic changes. Soft tissue and urinary bladder uptake confirmed. DIVISION OF RADIOLOGY Provider, [facility] - 06/16/2024 * * *Final Report* * * DATE OF EXAM: Jun 16 2024 4:00PM [facility] 0014 - NM BONE WHOLE BODY / PROCEDURE REASON: Elevated alkaline phosphatase level * * * * Physician Interpretation * * * * WHOLE BODY BONE SCAN CLINICAL HISTORY: Elevated alkaline phosphatase TECHNIQUE: 22.6 millicuries Tc-99m MDP mCi technetium 99m MDP IV. Planar images of the whole body obtained in anterior and posterior views at approximately 3 hours post injection. Static images of the lateral skull, oblique ribs and pelvis, palmar hands were obtained. COMPARISON: No prior bone scan CORRELATION: No recent pertinent chest, abdomen and pelvis CT report(s) RESULT: Whole body and static images demonstrate no abnormal foci of increased or decreased uptake. 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 Photopenic defects compatible with bilateral shoulder and hip arthroplasty. Portions of the upper extremities are not visualized, and cannot be assessed for pathology. Increased uptake in the patellofemoral joints, wrists (especially the radial aspect on the right, and MTP joints is likely due to degenerative/arthritic changes. Soft tissue and urinary bladder uptake confirmed. IMPRESSION IMPRESSION: No scintigraphically evident aggressive osseous process or metabolic bone disease, including Paget's disease of bone. Degenerative/arthritic changes, as described. Radiographic confirmation may be performed, as clinically indicated. Buggy Driver: SANDRA Transcribe Date/Time: Jun 16 2024 4:37P Dictated by : EULALIA ADAMSON MD This examination was interpreted and the report reviewed and electronically signed by: EULALIA ADAMSON MD on Jun 16 2024 4:42PM EST [facility] Radiology Study observation (narrative) [facility] NM Whole body Bone ViewsOrde red By: Ccf Provider on 06-16-2024 [facility] CNPNon 06-12-2024 CNPN Normal [facility] No Panel Informationon 06-11 IMPRESSION: Hepatic steatosis. Buggy Driver: SANDRA Transcribe Date/Time: Jun 11 2024 9:05A Dictated by : NIKHIL DELGADO MD This examination was interpreted and the report reviewed and electronically signed by: NIKHIL DELGADO MD on Jun 11 2024 9:07AM EST DIVISION OF RADIOLOGY No Panel InformationOrdered By: Ccf Provider on 06-11-2024 [facility] US ABD RIGHT UPPER QUADRANTo n 06-11-2024 US ABD RIGHT UPPER QUADRANT Normal [facility] US ABD SPLEEN - NBon 024 * * *Final Report* * * DATE OF EXAM: Jun 11 2024 9:04AM WRU 1232 - US ABD SPLEEN -NB / PROCEDURE REASON: Elevated alkaline phosphatase level * * * * Physician Interpretation * * * * EXAMINATION: RIGHT UPPER QUADRANT AND SPLEEN ULTRASOUND CLINICAL HISTORY: Elevated alkaline phosphatase level TECHNIQUE: Sonography of the right upper quadrant and spleen was performed. Images were obtained and stored in a permanent archive and interpreted remotely. MQ: URUQ_2 COMPARISON: Correlation made to noncontrast CT dated 10/01/2019 RESULT: Pancreas: Normal sonographic appearance. Portions obscured: tail Liver: Echotexture: Normal, homogeneous. Echogenicity: Increased Surface contour: Smooth Lesions: None. Biliary: No intrahepatic biliary duct dilation. CBD: 0.5 cm at the hilum. Gallbladder: Normal caliber -Contents: No cholelithiasis -Wall: Normal -Other: No pericholecystic fluid. Right Kidney: Normal cortical echogenicity. 6.9 cm simple upper pole cyst. No hydronephrosis. Left kidney: Normal cortical echogenicity. No hydronephrosis. Spleen: Normal in size measuring 9.4 cm in craniocaudad dimension. No sonographic evidence of focal splenic lesion. Ascites: None. DIVISION OF RADIOLOGY Provider, [facility] - 06/11/2024 * * *Final Report* * * DATE OF EXAM: Jun 11 2024 9:04AM WRU 1232 - US ABD SPLEEN -NB / PROCEDURE REASON: Elevated alkaline phosphatase level * * * * Physician Interpretation * * * * EXAMINATION: RIGHT UPPER QUADRANT AND SPLEEN ULTRASOUND CLINICAL HISTORY: Elevated alkaline phosphatase level TECHNIQUE: Sonography of the right upper quadrant and spleen was performed. Images were obtained and stored in a permanent archive and interpreted remotely. MQ: URUQ_2 COMPARISON: Correlation made to noncontrast CT dated 10/01/2019 RESULT: Pancreas: Normal sonographic appearance. Portions obscured: tail Liver: Echotexture: Normal, homogeneous. Echogenicity: Increased Surface contour: Smooth Lesions: None. Biliary: No intrahepatic biliary duct dilation. CBD: 0.5 cm at the hilum. Gallbladder: Normal caliber -Contents: No cholelithiasis -Wall: Normal -Other: No pericholecystic fluid. Right Kidney: Normal cortical echogenicity. 6.9 cm simple upper pole cyst. No hydronephrosis. Left kidney: Normal cortical echogenicity. No hydronephrosis. Spleen: Normal in size measuring 9.4 cm in craniocaudad dimension. No sonographic evidence of focal splenic lesion. Ascites: None. IMPRESSION IMPRESSION: Hepatic steatosis. Buggy Driver: SANDRA Transcribe Date/Time: Jun 11 2024 9:05A Dictated by : NIKHIL DELGADO MD This examination was interpreted and the report reviewed and electronically signed by: NIKHIL DELGADO MD on Jun 11 2024 9:07AM EST [facility] Radiology Study observation (narrative) [facility] US ABD SPLEEN -NBon 06-11-20 24 US ABD SPLEEN -NB Normal [facility] US Abdomen RUQon 06-11-2024 * * *Final Report* * * DATE OF EXAM: Jun 11 2024 9:04AM WRU 1032 - US ABD RIGHT UPPER QUADRANT / PROCEDURE REASON: Elevated alkaline phosphatase level * * * * Physician Interpretation * * * * EXAMINATION: RIGHT UPPER QUADRANT AND SPLEEN ULTRASOUND CLINICAL HISTORY: Elevated alkaline phosphatase level TECHNIQUE: Sonography of the right upper quadrant and spleen was performed. Images were obtained and stored in a permanent archive and interpreted remotely. MQ: URUQ_2 COMPARISON: Correlation made to noncontrast CT dated 10/01/2019 RESULT: Pancreas: Normal sonographic appearance. Portions obscured: tail Liver: Echotexture: Normal, homogeneous. Echogenicity: Increased Surface contour: Smooth Lesions: None. Biliary: No intrahepatic biliary duct dilation. CBD: 0.5 cm at the hilum. Gallbladder: Normal caliber -Contents: No cholelithiasis -Wall: Normal -Other: No pericholecystic fluid. Right Kidney: Normal cortical echogenicity. 6.9 cm simple upper pole cyst. No hydronephrosis. Left kidney: Normal cortical echogenicity. No hydronephrosis. Spleen: Normal in size measuring 9.4 cm in craniocaudad dimension. No sonographic evidence of focal splenic lesion. Ascites: None. DIVISION OF RADIOLOGY Provider, [facility] - 06/11/2024 * * *Final Report* * * DATE OF EXAM: Jun 11 2024 9:04AM WRU 1032 - US ABD RIGHT UPPER QUADRANT / PROCEDURE REASON: Elevated alkaline phosphatase level * * * * Physician Interpretation * * * * EXAMINATION: RIGHT UPPER QUADRANT AND SPLEEN ULTRASOUND CLINICAL HISTORY: Elevated alkaline phosphatase level TECHNIQUE: Sonography of the right upper quadrant and spleen was performed. Images were obtained and stored in a permanent archive and interpreted remotely. MQ: URUQ_2 COMPARISON: Correlation made to noncontrast CT dated 10/01/2019 RESULT: Pancreas: Normal sonographic appearance. Portions obscured: tail Liver: Echotexture: Normal, homogeneous. Echogenicity: Increased Surface contour: Smooth Lesions: None. Biliary: No intrahepatic biliary duct dilation. CBD: 0.5 cm at the hilum. Gallbladder: Normal caliber -Contents: No cholelithiasis -Wall: Normal -Other: No pericholecystic fluid. Right Kidney: Normal cortical echogenicity. 6.9 cm simple upper pole cyst. No hydronephrosis. Left kidney: Normal cortical echogenicity. No hydronephrosis. Spleen: Normal in size measuring 9.4 cm in craniocaudad dimension. No sonographic evidence of focal splenic lesion. Ascites: None. IMPRESSION IMPRESSION: Hepatic steatosis. Buggy Driver: SANDRA Transcribe Date/Time: Jun 11 2024 9:05A Dictated by : NIKHIL DELGADO MD This examination was interpreted and the report reviewed and electronically signed by: NIKHIL DELGADO MD on Jun 11 2024 9:07AM EST [facility] Radiology Study observation (narrative) [facility] OXIMETRY WITH AMBULATIONon 1 Mónica Osorio RPF T 06/10/2024 10:31 AM RESPIRATORY THERAPY OXIMETRY WITH AMBULATION Oximetry with Ambulation Test for This Encounter O2 Device O2 Adapter NC O2 Flow SpO2% HR Activity Ft Walked (ft) Time (min) Avg Speed (MPH) R/A 98 65 Resting R/A 94 92 Walking, usual pace 400 3 1.52 R/A 91 108 Walking, fastest pace 500 3 1.89 General Information Pulse Oximetry Site Total Time Spent Walking Assistance/O2 Supply Carrier -- 30 None NAME: Mónica CONNOR Osorio PATIENT NAME: Kristina Burch DATE: June 10, 2024 TIME: 10:31 AM Comment: [facility] CNPNon 06-08-2024 CNPN Normal [facility] CNPNon 06-06-2024 CNPN Normal [facility] ALKALINE PHOSPHATASE ISOENZY MES (P)on 06-02-2024 ALK PHOS BONE % 44.4 % Normal 10.7-68.[address] [facility] Comment on above: Order Comment: Speci men Type: BLOOD SPECIMENOrdering Facility: [facility] Address: [address] [place] [address] Performed By: #### A LKISOP ####[facility] LABCLIA [id number] [place] [address] [place] ALK PHOS LIVER % 50.9 % Normal 26.0-86.2 [facility] Comment on above: Order Comment: Speci men Type: BLOOD SPECIMENOrdering Facility: [facility] Address: [address] [place] [address] Performed By: #### A LKISOP ####[facility] LABCLIA [id number] [place] [address] [place] BONE FRACTION 72.4 U/L High 12.9-52.[address] [facility] Comment on above: Order Comment: Speci men Type: BLOOD SPECIMENOrdering Facility: [facility] Address: [address] [place] [address] Performed By: #### A LKISOP ####[facility] LABCLIA [id number] [place] [address] [place] INTESTINE FRACTION 7.7 U/L Normal 0.0-16.3 [facility] Comment on above: Order Comment: Speci men Type: BLOOD SPECIMENOrdering Facility: [facility] Address: [address] [place] [address] Performed By: #### A LKISOP ####[facility] LABCLIA [id number] [place] [address] [place] LIVER FRACTION 83.0 U/L High 16.0-69.[address] [facility] Comment on above: Order Comment: Speci men Type: BLOOD SPECIMENOrdering Facility: [facility] Address: [address] [place] [address] Performed By: #### A LKISOP ####[facility] LABIA [id number] [place] [address] [place] Neutrophils/100 WBC (Bld) 4.7 % Normal 0.0-24.[address] [facility] Comment on above: Order Comment: Speci men Type: BLOOD SPECIMENOrdering Facility: [facility] Address: [address] [place] [address] Performed By: #### A LKISOP ####[facility] LABIA [id number] [place] [address] [place] ALP SerPl-cCncon 06-02-2024 ALP [Catalytic activity/Vol] 163 U/L High 34-[address] [facility] Comment on above: Order Comment: Speci men Type: BLOOD SPECIMENOrdering Facility: [facility] Address: [address] [place] [address] Performed By: #### 6 768-6 ####[facility] LABIA [id number] [place] [address] [place] CNOVon 06-02-2024 CNOV [address] [facility] CNPNon 06-02-2024 CNPN Normal [facility] CBC W Auto Differential pane l (Bld)on 05-30-2024 Basophils (Bld) [#/Vol] 10*3/uL Normal <0.[address] [facility] Comment on above: Order Comment: Speci men Type: BLOOD SPECIMENOrdering Facility: [facility] Address: [address] [place] [address] Performed By: #### 5 7021-8 ####[facility] LABIA [id number] [place] [address] [place] Basophils/100 WBC (Bld) 0.4 % Normal [facility] Comment on above: Order Comment: Speci men Type: BLOOD SPECIMENOrdering Facility: [facility] Address: [address] [place] [address] Performed By: #### 5 7021-8 ####[facility] LABIA [id number] [place] [address] [place] Differential cell count method Nom (Bld) Auto Normal [facility] Comment on above: Order Comment: Speci men Type: BLOOD SPECIMENOrdering Facility: [facility] Address: [address] [place] [address] Performed By: #### 5 7021-8 ####[facility] LABCLIA [id number] [place] [address] [place] Eosinophils (Bld) [#/Vol] 0.12 10*3/uL Normal <0.[address] [facility] Comment on above: Order Comment: Speci men Type: BLOOD SPECIMENOrdering Facility: [facility] Address: [address] [place] [address] Performed By: #### 5 7021-8 ####[facility] LABCLIA [id number] [place] [address] [place] Eosinophils/100 WBC (Bld) 2.3 % Normal [facility] Comment on above: Order Comment: Speci men Type: BLOOD SPECIMENOrdering Facility: [facility] Address: [address] [place] [address] Performed By: #### 5 7021-8 ####[facility] LABCLIA [id number] [place] [address] [place] Erythrocyte distribution width (RBC) [Ratio] 13.3 % Normal 11.5-15.[address] [facility] Comment on above: Order Comment: Speci men Type: BLOOD SPECIMENOrdering Facility: [facility] Address: [address] [place] [address] Performed By: #### 5 7021-8 ####[facility] LABCLIA [id number] [place] [address] [place] Hematocrit (Bld) [Volume fraction] 37.5 % Normal 36.0-46.[address] [facility] Comment on above: Order Comment: Speci men Type: BLOOD SPECIMENOrdering Facility: [facility] Address: [address] [place] [address] Performed By: #### 5 7021-8 ####[facility] LABCLIA [id number] [place] [address] [place] Hemoglobin (Bld) [Mass/Vol] 12.9 g/dL Normal 11.5-15.[address] [facility] Comment on above: Order Comment: Speci men Type: BLOOD SPECIMENOrdering Facility: [facility] Address: [address] [place] [address] Performed By: #### 5 7021-8 ####[facility] LABCLIA [id number] [place] [address] [place] Immature granulocytes (Bld) [#/Vol] 10*3/uL Normal <0.[address] [facility] Comment on above: Order Comment: Speci men Type: BLOOD SPECIMENOrdering Facility: [facility] Address: [address] [place] [address] Performed By: #### 5 7021-8 ####[facility] LABCLIA [id number] [place] [address] [place] Immature granulocytes/100 WBC (Bld) 0.2 % Normal [facility] Comment on above: Order Comment: Speci men Type: BLOOD SPECIMENOrdering Facility: [facility] Address: [address] [place] [address] Performed By: #### 5 7021-8 ####[facility] LABCLIA [id number] [place] [address] [place] Lymphocytes (Bld) [#/Vol] 1.83 10*3/uL Normal 1.00-4.[address] [facility] Comment on above: Order Comment: Speci men Type: BLOOD SPECIMENOrdering Facility: [facility] Address: [address] [place] [address] Performed By: #### 5 7021-8 ####[facility] LABCLIA [id number] [place] [address] [place] Lymphocytes/100 WBC (Bld) 34.7 % Normal [facility] Comment on above: Order Comment: Speci men Type: BLOOD SPECIMENOrdering Facility: [facility] Address: [address] [place] [address] Performed By: #### 5 7021-8 ####[facility] LABIA [id number] [place] [address] [place] MCH (RBC) [Entitic mass] 31.5 pg Normal 26.0-34.[address] [facility] Comment on above: Order Comment: Speci men Type: BLOOD SPECIMENOrdering Facility: [facility] Address: [address] [place] [address] Performed By: #### 5 7021-8 ####[facility] LABIA [id number] [place] [address] [place] MCHC (RBC) [Mass/Vol] 34.4 g/dL Normal 30.5-36.0 [facility] Comment on above: Order Comment: Speci men Type: BLOOD SPECIMENOrdering Facility: [facility] Address: [address] [place] [address] Performed By: #### 5 7021-8 ####[facility] LABIA [id number] [place] [address] [place] MCV (RBC) [Entitic vol] 91.7 fL Normal 80.0-100.[address] [facility] Comment on above: Order Comment: Speci men Type: BLOOD SPECIMENOrdering Facility: [facility] Address: [address] [place] [address] Performed By: #### 5 7021-8 ####[facility] LABIA [id number] [place] [address] [place] Monocytes (Bld) [#/Vol] 0.56 10*3/uL Normal <0.[address] [facility] Comment on above: Order Comment: Speci men Type: BLOOD SPECIMENOrdering Facility: [facility] Address: [address] [place] [address] Performed By: #### 5 7021-8 ####[facility] LABCLIA [id number] [place] [address] [place] Monocytes/100 WBC (Bld) 10.6 % Normal [facility] Comment on above: Order Comment: Speci men Type: BLOOD SPECIMENOrdering Facility: [facility] Address: [address] [place] [address] Performed By: #### 5 7021-8 ####[facility] LABCLIA [id number] [place] [address] [place] Neutrophils (Bld) [#/Vol] 2.74 10*3/uL Normal 1.45-7.[address] [facility] Comment on above: Order Comment: Speci men Type: BLOOD SPECIMENOrdering Facility: [facility] Address: [address] [place] [address] Performed By: #### 5 7021-8 ####[facility] LABCLIA [id number] [place] [address] [place] Neutrophils/100 WBC (Bld) 51.8 % Normal [facility] Comment on above: Order Comment: Speci men Type: BLOOD SPECIMENOrdering Facility: [facility] Address: [address] [place] [address] Performed By: #### 5 7021-8 ####[facility] LABIA [id number] [place] [address] [place] Nucleated RBC (Bld) [#/Vol] 10*3/uL Normal <0.[address] [facility] Comment on above: Order Comment: Speci men Type: BLOOD SPECIMENOrdering Facility: [facility] Address: [address] [place] [address] Performed By: #### 5 7021-8 ####[facility] LABCLIA [id number] [place] [address] [place] Nucleated RBC/100 WBC (Bld) [Ratio] 0.0 /100 WBC Normal [facility] Comment on above: Order Comment: Speci men Type: BLOOD SPECIMENOrdering Facility: [facility] Address: [address] [place] [address] Performed By: #### 5 7021-8 ####[facility] LABCLIA [id number] [place] [address] [place] Platelet mean volume (Bld) [Entitic vol] 12.5 fL Normal 9.0-12.[address] [facility] Comment on above: Order Comment: Speci men Type: BLOOD SPECIMENOrdering Facility: [facility] Address: [address] [place] [address] Performed By: #### 5 7021-8 ####[facility] LABIA [id number] [place] [address] [place] Platelets (Bld) [#/Vol] 207 10*3/uL Normal 150-[address] [facility] Comment on above: Order Comment: Speci men Type: BLOOD SPECIMENOrdering Facility: [facility] Address: [address] [place] [address] Performed By: #### 5 7021-8 ####[facility] LABCLIA [id number] [place] [address] [place] RBC (Bld) [#/Vol] 4.09 10*6/uL Normal 3.90-5.20 [facility] Comment on above: Order Comment: Speci men Type: BLOOD SPECIMENOrdering Facility: [facility] Address: [address] [place] [address] Performed By: #### 5 7021-8 ####[facility] LABCLIA [id number] [place] [address] [place] WBC (Bld) [#/Vol] 5.28 10*3/uL Normal 3.70-11.00 [facility] Comment on above: Order Comment: Speci men Type: BLOOD SPECIMENOrdering Facility: [facility] Address: [address] [place] [address] Performed By: #### 5 7021-8 ####[facility] LABCLIA [id number] [place] [id number] [place] CNOVon 05-30-2024 CNOV Normal [facility] Comprehensive metabolic 2000 panelon 05-30-2024 Albumin [Mass/Vol] 4.5 g/dL Normal 3.9-4.9 [facility] Comment on above: Order Comment: Speci men Type: BLOOD SPECIMENOrdering Facility: [facility] Address: [address] [place] [address] Performed By: #### 2 4323-8 ####[facility] LABCLIA [id number] [place] [address] [place] ALP [Catalytic activity/Vol] 152 U/L High 34-[address] [facility] Comment on above: Order Comment: Speci men Type: BLOOD SPECIMENOrdering Facility: [facility] Address: [address] [place] [address] Performed By: #### 2 4323-8 ####[facility] LABCLIA [id number] [place] [address] [place] ALT [Catalytic activity/Vol] 34 U/L Normal 7-[address] [facility] Comment on above: Order Comment: Speci men Type: BLOOD SPECIMENOrdering Facility: [facility] Address: [address] [place] [address] Performed By: #### 2 4323-8 ####[facility] LABCLIA [id number] [place] [address] [place] Anion gap [Moles/Vol] 15 mmol/L Normal 8-15 [facility] Comment on above: Order Comment: Speci men Type: BLOOD SPECIMENOrdering Facility: [facility] Address: [address] [place], [place] [address] Performed By: #### 2 4323-8 ####[facility] LABCLIA [id number] [place] [address] [place] AST [Catalytic activity/Vol] 31 U/L Normal 13-[address] [facility] Comment on above: Order Comment: Speci men Type: BLOOD SPECIMENOrdering Facility: [facility] Address: [address] [place] [address] Performed By: #### 2 4323-8 ####[facility] LABCLIA [id number] [place] [address] [place] Bilirubin [Mass/Vol] 0.3 mg/dL Normal 0.2-1.3 [facility] Comment on above: Order Comment: Speci men Type: BLOOD SPECIMENOrdering Facility: [facility] Address: [address] [place] [address] Performed By: #### 2 4323-8 ####[facility] LABCLIA [id number] [place] [address] [place] Calcium [Mass/Vol] 9.7 mg/dL Normal 8.5-10.2 [facility] Comment on above: Order Comment: Speci men Type: BLOOD SPECIMENOrdering Facility: [facility] Address: [address] [place] [address] Performed By: #### 2 4323-8 ####[facility] LABCLIA [id number] [place] [address] [place] Chloride [Moles/Vol] 102 mmol/L Normal 98-107 [facility] Comment on above: Order Comment: Speci men Type: BLOOD SPECIMENOrdering Facility: [facility] Address: [address] [place] [address] Performed By: #### 2 4323-8 ####[facility] LABCLIA [id number] [place] [address] [place] CO2 [Moles/Vol] 23 mmol/L Normal 22-[address] [facility] Comment on above: Order Comment: Speci men Type: BLOOD SPECIMENOrdering Facility: [facility] Address: [address] [place] [id number] Performed By: #### 2 4323-8 ####[facility] LABIA [id number] [place] [address] [place] Creatinine [Mass/Vol] 0.83 mg/dL Normal 0.58-0.96 [facility] Comment on above: Order Comment: Speci men Type: BLOOD SPECIMENOrdering Facility: [facility] Address: [address] [place] [address] Performed By: #### 2 4323-8 ####[facility] LABIA [id number] [place] [address] [place] Creatinine and Glomerular filtration rate.predicted panel (S/P/Bld) 78 mL/min/1.73m??? Normal >=[address] [facility] Comment on above: Order Comment: Ifeomai men Type: BLOOD SPECIMENOrdering Facility: [facility] Address: [address] [place] [address] Result Comment: Kristal mated Glomerular Filtration Rate (eGFR) is calculated using the 2020 CKD-EPI creatinine equation. This equation utilizes serum creatinine, sex, and age as parameters. The creatinine assay has traceable calibration to isotope dilution-mass spectrometry. Refer to KDIGO guidelines for clinical interpretation. In patients with unstable renal function, e.g. those with acute kidney injury, the eGFR may not accurately reflect actual GFR. Performed By: #### 2 4323-8 ####[facility] LABIA [id number] [place] [id number] [place] Glucose [Mass/Vol] 95 mg/dL Normal 74-99 [facility] Comment on above: Order Comment: Speci men Type: BLOOD SPECIMENOrdering Facility: [facility] Address: [address] [place] [address] Result Comment: The [place] [employer] (ADA) provides guidance for cutoff values for fasting glucose and random glucose. The ADA defines fasting as no caloric intake for at least 8 hours. Fasting plasma glucose results between 100 to 125 mg/dL indicate increased risk for diabetes (prediabetes).Fasting plasma glucose results greater than or equal to 126 mg/dL meet the criteria for diagnosis of diabetes. In the absence of unequivocal hyperglycemia, results should be confirmed by repeat testing. In a patient with classic symptoms of hyperglycemia or hyperglycemic crisis, random plasma glucose results greater than or equal to 200 mg/dL meet the criteria for diagnosis of diabetes.Reference: Standards of Medical Care in Diabetes 2016, [place] [employer]. Diabetes Care. 2016.39(Suppl 1). Performed By: #### 2 4323-8 ####[facility] LABCLIA [id number] [place] [address] [place] Potassium [Moles/Vol] 4.3 mmol/L Normal 3.7-5.1 [facility] Comment on above: Order Comment: Speci men Type: BLOOD SPECIMENOrdering Facility: [facility] Address: [address] [place] [address] Performed By: #### 2 4323-8 ####[facility] LABCLIA [id number] [place] [address] [place] Protein [Mass/Vol] 7.1 g/dL Normal 6.3-8.0 [facility] Comment on above: Order Comment: Speci men Type: BLOOD SPECIMENOrdering Facility: [facility] Address: [address] [place] [address] Performed By: #### 2 4323-8 ####[facility] LABCLIA [id number] [place] [address] [place] Sodium [Moles/Vol] 140 mmol/L Normal 136-144 [facility] Comment on above: Order Comment: Speci men Type: BLOOD SPECIMENOrdering Facility: [facility] Address: [address] [place] [address] Performed By: #### 2 4323-8 ####[facility] LABCLIA [id number] [place] [address] [place] Urea nitrogen [Mass/Vol] 20 mg/dL Normal 7-[address] [facility] Comment on above: Order Comment: Speci men Type: BLOOD SPECIMENOrdering Facility: [facility] Address: [address] [place] [address] Performed By: #### 2 4323-8 ####[facility] LABCLIA [id number] [place] [address] [place] HBV surface Ag Ser Qlon 09- HBV surface Ag Ql (S) Negative Normal Negative [facility] Comment on above: Order Comment: Speci men Type: BLOOD SPECIMENOrdering Facility: [facility] Address: [address] [place] [address] Performed By: #### 5 195-3 ####[facility] LABIA [id number] [place] [address] [place] Urinalysis complete panel (U )on 05-30-2024 Bacteria LM.HPF (Urine sed) [#/Area] Negative Normal Negative [facility] Comment on above: Order Comment: Speci men Type: URINE SPECIMENOrdering Facility: [facility] Address: [address] [place] [address] Performed By: #### 2 4356-8 ####[facility] LABIA [id number] [place] [address] [place] Bilirubin Ql (U) Negative Normal Negative [facility] Comment on above: Order Comment: Speci men Type: URINE SPECIMENOrdering Facility: [facility] Address: [address] [place] [address] Performed By: #### 2 4356-8 ####[facility] LABCLIA [id number] [place] [address] [place] Clarity (Unsp spec) Clear Normal Clear [facility] Comment on above: Order Comment: Speci men Type: URINE SPECIMENOrdering Facility: [facility] Address: [address] [place] [address] Performed By: #### 2 4356-8 ####[facility] LABCLIA [id number] [place] [address] [place] Color (U) Dark Yellow Abnormal Yellow [facility] Comment on above: Order Comment: Speci men Type: URINE SPECIMENOrdering Facility: [facility] Address: [address] [place] [address] Performed By: #### 2 4356-8 ####[facility] LABCLIA [id number] [place] [address] [place] Epithelial cells LM.HPF (Urine sed) [#/Area] None Seen Normal [facility] Comment on above: Order Comment: Speci men Type: URINE SPECIMENOrdering Facility: [facility] Address: [address] [place] [address] Performed By: #### 2 4356-8 ####[facility] LABIA [id number] [place] [address] [place] Glucose Test strip (U) [Mass/Vol] Negative Normal Negative [facility] Comment on above: Order Comment: Speci men Type: URINE SPECIMENOrdering Facility: [facility] Address: [address] [place] [address] Performed By: #### 2 4356-8 ####[facility] LABIA [id number] [place] [address] [place] Hemoglobin Ql (U) Negative Normal Negative [facility] Comment on above: Order Comment: Speci men Type: URINE SPECIMENOrdering Facility: [facility] Address: [address] [place] [address] Performed By: #### 2 4356-8 ####[facility] LABIA [id number] [place] [address] [place] Hyaline casts (Urine sed) [#/Area] 0 /[LPF] Normal 0 /LPF [facility] Comment on above: Order Comment: Speci men Type: URINE SPECIMENOrdering Facility: [facility] Address: [address] [place] [address] Performed By: #### 2 4356-8 ####[facility] LABCLIA [id number] [place] [address] [place] Ketones Ql (U) Negative Normal Negative [facility] Comment on above: Order Comment: Speci men Type: URINE SPECIMENOrdering Facility: [facility] Address: [address] [place] [address] Performed By: #### 2 4356-8 ####[facility] LABCLIA [id number] [place] [address] [place] Leukocyte esterase Test strip Ql (U) Negative Normal Negative [facility] Comment on above: Order Comment: Speci men Type: URINE SPECIMENOrdering Facility: [facility] Address: [address] [place] [address] Performed By: #### 2 4356-8 ####[facility] LABCLIA [id number] [place] [address] [place] Nitrite Ql (U) Negative Normal Negative [facility] Comment on above: Order Comment: Speci men Type: URINE SPECIMENOrdering Facility: [facility] Address: [address] [place] [address] Performed By: #### 2 4356-8 ####[facility] LABCLIA [id number] [place] [address] [place] pH (U) 6.0 [pH] Normal <8.[address] [facility] Comment on above: Order Comment: Speci men Type: URINE SPECIMENOrdering Facility: [facility] Address: [address] [place] [address] Performed By: #### 2 4356-8 ####[facility] LABCLIA [id number] [place] [address] [place] Protein (U) [Mass/Vol] Negative Normal Negative [facility] Comment on above: Order Comment: Speci men Type: URINE SPECIMENOrdering Facility: [facility] Address: [address] [place] [address] Performed By: #### 2 4356-8 ####[facility] LABIA [id number] [place] [address] [place] RBC LM.HPF (Urine sed) [#/Area] 0-2 /HPF Normal 0-2 /HPF [facility] Comment on above: Order Comment: Speci men Type: URINE SPECIMENOrdering Facility: [facility] Address: [address] [place] [address] Performed By: #### 2 4356-8 ####[facility] LABIA [id number] [place] [address] [place] Specific gravity (U) [Rel density] 1.015 Normal 1.005-1.[address] [facility] Comment on above: Order Comment: Speci men Type: URINE SPECIMENOrdering Facility: [facility] Address: [address] [place] [address] Performed By: #### 2 4356-8 ####[facility] LABIA [id number] [place] [address] [place] Urobilinogen Ql (U) 0.2 EU/dL Normal 0.2-1.0 EU/dL [facility] Comment on above: Order Comment: Speci men Type: URINE SPECIMENOrdering Facility: [facility] Address: [address] [place] [address] Performed By: #### 2 4356-8 ####[facility] LABIA [id number] [place] [address] [place] WBC LM.HPF (Urine sed) [#/Area] 0-5 /HPF Normal 0-5 /HPF [facility] Comment on above: Order Comment: Speci men Type: URINE SPECIMENOrdering Facility: [facility] Address: [address] [place] [address] Performed By: #### 2 4356-8 ####[facility] LABCLIA [id number] [facility]ENTERJoceline [facility] [id number] [address] [place] 12 Lead EKGon 05-28-2024 12 Lead EKG [facility] [address] [place] [address] 12 Lead EKG 05/28/24 0932 MR#: [id number] Acct: [id number] Name: KRISTINA BURCH Rep #: [id number] : 1960 64 From: Samson Daniel MD Attending Dr: Status: DEP ER Ordering Dr: David Schwartz DO Date: 05/28/24 Location: ED Sex: F C Admitted: Test Reason : SOB Blood Pressure : / mmHG Vent. Rate : 067 BPM Atrial Rate : 067 BPM P-R Int : 178 ms QRS Dur : 088 ms QT Int : 432 ms P-R-T Axes : 042 -11 019 degrees QTc Int : 456 ms Sinus rhythm with frequent Premature ventricular complexes Otherwise normal ECG Confirmed by Samson Daniel ([id number]), state editor SIMÓN JOSEPH ([id number]) on 05/30/2024 9:44:56 AM Referred By: Confirmed By:Samson Daneil 05/30/24 0945 Date Samson Daniel MD CC: Dr. Ganga Nunez MD; Dr. Daivd Schwartz DO Signed Normal [facility] Abdomen/Pelvis W IV Cont ONL Yon 05-28-2024 Abdomen/Pelvis W IV Cont ONLY [facility] [address] [place] [address] Abdomen/Pelvis W IV Cont ONLY MR#: [id number] Acct: [id number] Name: KRISTINA BURCH Rep #: [id number] : 1960 F 64 From: Alexandre canales MD PCP: Dr. Ganga Nunez MD Status: REG ER Study: Abdomen/Pelvis W IV Cont ONLY Date of Exam: Exam# [id number] Ordering Dr: David Schwartz DO [id number] STUDY: CT ABDOMEN AND PELVIS WITH CONTRAST REASON FOR EXAM: Female, 64 years old. LLQ pain, bright red blood per rectum RADIATION DOSAGE (If Supplied By Facility): CTDIvol = ( 16.73 ) mGy, DLP = ( 1099.23 ) mGycm TECHNIQUE: Transaxial images were obtained from the dome of the diaphragm to the symphysis pubis without oral contrast. IV-100 ML ISOVUE 370 was administered. Sagittal and coronal images were reconstructed. Individualized dose optimization techniques were used for this CT. COMPARISON: Comparison is made with prior study dated March 17, 2020. FINDINGS: The visualized lung bases are unremarkable. The visualized portions of the heart are within normal limits. There is decreased attenuation of the liver consistent with steatosis. Normal gallbladder and extrahepatic biliary system. Normal spleen. Normal pancreas. Normal bilateral adrenal glands. There is a 6.1 cm x 6.1 cm cyst in the upper midportion of the right kidney. Normal left kidney. Normal visualized stomach. Normal small intestine. There are multiple colonic diverticula consistent with diverticulosis. Surgical anastomosis seen in the colorectal region. There is non-visualization of the appendix. There is scattered atherosclerotic calcification of the abdominal aorta, without a demonstrated aneurysm. Normal inferior vena cava. Normal retroperitoneum. Normal urinary bladder. There is absence of the uterus consistent with a prior hysterectomy. Normal abdominal wall. Normal osseous structures. CT/Abdomen/Pelvis W IV Cont ONLY IMPRESSION: Scattered sigmoid diverticulosis. There is evidence of a surgical anastomosis at the colorectal junction. Stable right renal cyst. Fatty infiltration of the liver. Electronically Signed: Alexandre Suggs MD at 11:13 EDT , CC: Dr. Ganga Nunez MD; Dr. David Schwartz DO Buggy Driver: Signed Normal [facility] CBC W/Diff, Automatedon 05-05 Absolute Lymph 1.89 X10 3/uL Normal 0.83-4.51 [facility] Comment on above: Performed By: #### L 501.2450, L100.0100, L500.4050, L503.6005 #### [facility] [address] [place], [address] Absolute Neut 2.6 X10 3/uL Normal 2.0-7.7 [facility] Comment on above: Performed By: #### L 501.2450, L100.0100, L500.4050, L503.6005 #### [facility] [address] [place], [address] Basophils/100 WBC (Bld) 0.4 % Normal 0-1 [facility] Comment on above: Performed By: #### L 501.2450, L100.0100, L500.4050, L503.6005 #### [facility] [address] [place], [address] Eosinophils/100 WBC (Bld) 2.5 % Normal 0-5 [facility] Comment on above: Performed By: #### L 501.2450, L100.0100, L500.4050, L503.6005 #### [facility] [address] [place], [address] Erythrocyte distribution width (RBC) [Ratio] 13.5 % Normal 11.6-14.6 [facility] Comment on above: Performed By: #### L 501.2450, L100.0100, L500.4050, L503.6005 #### [facility] [address] [place], [address] Hematocrit (Bld) [Volume fraction] 37.5 % Normal 37-47 [facility] Comment on above: Performed By: #### L 501.2450, L100.0100, L500.4050, L503.6005 #### [facility] [address] [place], [address] Hemoglobin (Bld) [Mass/Vol] 12.4 g/dL Normal 12.0-15.0 [facility] Comment on above: Performed By: #### L 501.2450, L100.0100, L500.4050, L503.6005 #### [facility] [address] [place], [address] IG% 0.200 Normal 0.0-0.9 [facility] Comment on above: Result Comment: IG% - Immature Granulocytes (promyelocytes, myelocytes and metamyelocytes) > 1% indicates that a LEFT SHIFT is Present. Performed By: #### L 501.2450, L100.0100, L500.4050, L503.6005 #### [facility] [address] [place], [address] Lymphocytes/100 WBC (Bld) 35.9 % Normal 19-41 [facility] Comment on above: Performed By: #### L 501.2450, L100.0100, L500.4050, L503.6005 #### [facility] [address] [place], [address] MCH (RBC) [Entitic mass] 30.7 pg Normal 27.0-32.0 [facility] Comment on above: Performed By: #### L 501.2450, L100.0100, L500.4050, L503.6005 #### [facility] [address] [place], [address] MCHC (RBC) [Mass/Vol] 33.1 g/dL Normal 32-36 [facility] Comment on above: Performed By: #### L 501.2450, L100.0100, L500.4050, L503.6005 #### [facility] [address] [place], [address] MCV (RBC) [Entitic vol] 92.8 fL Normal 81-99 [facility] Comment on above: Performed By: #### L 501.2450, L100.0100, L500.4050, L503.6005 #### [facility] [address] [place], [address] Monocytes/100 WBC (Bld) 11.6 % High 0-10 [facility] Comment on above: Performed By: #### L 501.2450, L100.0100, L500.4050, L503.6005 #### [facility] [address] [place], [address] Neutrophils/100 WBC (Bld) 49.4 % Normal 47-70 [facility] Comment on above: Performed By: #### L 501.2450, L100.0100, L500.4050, L503.6005 #### [facility] [address] [place], [address] Nucleated RBC (Bld) [#/Vol] 0 10*3/uL Normal 0-5 [facility] Comment on above: Performed By: #### L 501.2450, L100.0100, L500.4050, L503.6005 #### [facility] [address] [place], [address] Platelet mean volume (Bld) [Entitic vol] 11.7 fL Normal 6.2-12.0 [facility] Comment on above: Performed By: #### L 501.2450, L100.0100, L500.4050, L503.6005 #### [facility] [address] [place], [address] Platelets (Bld) [#/Vol] 206 10*3/uL Normal 150-450 [facility] Comment on above: Performed By: #### L 501.2450, L100.0100, L500.4050, L503.6005 #### [facility] [address] [place], [address] RBC (Bld) [#/Vol] 4.04 10*6/uL Low 4.2-5.4 [facility] Comment on above: Performed By: #### L 501.2450, L100.0100, L500.4050, L503.6005 #### [facility] [address] [place], [address] RDW SD 45.9 fl High 35.1-43.9 [facility] Comment on above: Performed By: #### L 501.2450, L100.0100, L500.4050, L503.6005 #### [facility] [address] [place], [address] WBC (Bld) [#/Vol] 5.3 10*3/uL Normal 4.4-11.0 [facility] Comment on above: Performed By: #### L 501.2450, L100.0100, L500.4050, L503.6005 #### [facility] [address] [place], [address] CNPNon 05-28-2024 CNPN Normal [facility] ilon 05-28-2024 Albumin [Mass/Vol] 3.7 g/dL Normal 3.2-5.0 [facility] Comment on above: Performed By: #### L 501.2450, L100.0100, L500.4050, L503.6005 #### [facility] [address] [place], [address] Albumin/Globulin [Mass ratio] 1.1 {ratio} Normal 0.9-2.4 [facility] Comment on above: Performed By: #### L 501.2450, L100.0100, L500.4050, L503.6005 #### [facility] [address] [place], [address] ALK P 154 U/L High 45-117 [facility] Comment on above: Performed By: #### L 501.2450, L100.0100, L500.4050, L503.6005 #### [facility] [address] [place], [address] ALT [Catalytic activity/Vol] 43 U/L Normal 13-56 [facility] Comment on above: Performed By: #### L 501.2450, L100.0100, L500.4050, L503.6005 #### [facility] [address] [place], [address] AST [Catalytic activity/Vol] 27 U/L Normal 15-37 [facility] Comment on above: Performed By: #### L 501.2450, L100.0100, L500.4050, L503.6005 #### [facility] [address] [place], [address] Bilirubin [Mass/Vol] 0.40 mg/dL Normal 0.20-1.00 [facility] Comment on above: Result Comment: For patients on eltrombopag therapy, use of Dimension [place] TBIL is not recommended. Performed By: #### L 501.2450, L100.0100, L500.4050, L503.6005 #### [facility] [address] [place], [address] BUN/CRE 20.9 RATIO High 10-20 [facility] Comment on above: Performed By: #### L 501.2450, L100.0100, L500.4050, L503.6005 #### [facility] [address] [place], [address] CA,Total 9.1 mg/dL Normal 8.5-10.1 [facility] Comment on above: Performed By: #### L 501.2450, L100.0100, L500.4050, L503.6005 #### [facility] [address] [place], [address] Chloride [Moles/Vol] 109 mmol/L High 98-107 [facility] Comment on above: Performed By: #### L 501.2450, L100.0100, L500.4050, L503.6005 #### [facility] [address] [place], [address] CO2 [Moles/Vol] 25.0 mmol/L Normal 21.0-32.0 [facility] Comment on above: Performed By: #### L 501.2450, L100.0100, L500.4050, L503.6005 #### [facility] [address] [place], [address] Creatinine [Mass/Vol] 0.91 mg/dL Normal 0.55-1.02 [facility] Comment on above: Result Comment: The validity of the calculated GFR GFRAA in patients over 70 years has not been determined. Clinical correlation is essential. Performed By: #### L 501.2450, L100.0100, L500.4050, L503.6005 #### [facility] [address] [place], [address] ECRCL 73.38 ml/min Normal [facility] Comment on above: Performed By: #### L 501.2450, L100.0100, L500.4050, L503.6005 #### [facility] [address] [place], [address] EST GFR - AA 80 mL/min Normal >60 [facility] Comment on above: Result Comment: Afri can [place] GFR Calc Performed By: #### L 501.2450, L100.0100, L500.4050, L503.6005 #### [facility] [address] [place], [address] GAP 8 Normal 5-15 [facility] Comment on above: Performed By: #### L 501.2450, L100.0100, L500.4050, L503.6005 #### [facility] [address] [place], [address] GFR/1.73 sq M.predicted among non-blacks MDRD (S/P/Bld) [Vol rate/Area] 66 mL/min/{1.73_m2} Normal >60 [facility] Comment on above: Result Comment: Non- GFR Calc Performed By: #### L 501.2450, L100.0100, L500.4050, L503.6005 #### [facility] [address] [place], [address] Globulin (S) [Mass/Vol] 3.4 g/dL Normal 2.2-4.2 [facility] Comment on above: Performed By: #### L 501.2450, L100.0100, L500.4050, L503.6005 #### [facility] [address] [place], [address] Glucose [Mass/Vol] 107 mg/dL High 74-106 [facility] Comment on above: Result Comment: Fast ing Glucose result from 100 to 125 mg/dL suggests IMPAIRED HOMEOSTASIS per A.D.A. criteria. Performed By: #### L 501.2450, L100.0100, L500.4050, L503.6005 #### [facility] [address] [place], [address] Potassium [Moles/Vol] 3.8 mmol/L Normal 3.5-5.1 [facility] Comment on above: Performed By: #### L 501.2450, L100.0100, L500.4050, L503.6005 #### [facility] [address] [place], [address] Sodium [Moles/Vol] 142 mmol/L Normal 136-145 [facility] Comment on above: Performed By: #### L 501.2450, L100.0100, L500.4050, L503.6005 #### [facility] [address] [place], [address] T PROT 7.1 g/dL Normal 6.4-8.2 [facility] Comment on above: Performed By: #### L 501.2450, L100.0100, L500.4050, L503.6005 #### [facility] [address] [place], [address] Urea nitrogen [Mass/Vol] 19 mg/dL High 7-18 [facility] Comment on above: Performed By: #### L 501.2450, L100.0100, L500.4050, L503.6005 #### [facility] [address] [place], [address] Emergency Department Summary on 05-28-2024 Emergency Department Summary [facility] Medical Records Department [address] [place] [address] Emergency Department Summary 05/28/24 MR#: [id number] Acct: [id number] Name: KRISTINA BURCH Rep #: [id number] : 1960 64 From: David Schwartz DO PCP: Dr. Ganga Nunez MD Status:REG ER Location: ED ADDENDUM by Dr. David Schwartz DO on 05/28/24 at 1407 Patient's EKG was reviewed and independently interpreted by myself which showed sinus rhythm with a rate of 67 bpm with PVCs noted. 05/28/24 1407 Cosigner Signature (if applicable): cc: Dr. Ganga Nunez MD * Signed HPI History of Present Illness Chief Complaint: GI Bleed Narrative Narrative: Patient is a 64-year-old female with past medical history of IBS, depression, diverticulitis, hypertension, hyperlipidemia who presents to the emergency department chief complaint of rectal bleeding. Patient states that yesterday she had a bowel movement that was bloody that filled the toilet. She states that it then happened again this morning she called the on-call nurse and they advised her to come here for further evaluation management. Patient denies any blood thinning medications. States that nothing like this has happened in the past. Patient states that she did have diverticulitis in the past and had a colostomy with reversal in the past. PFSH [facility] Medical History Rheumatoid arthritis Wears glasses Post-menopausal Depression Alcohol use Arthritis High cholesterol Easy bruising Excessive bleeding Neck pain Restless legs History of IBS History of diverticulitis Heartburn Gastric reflux Non-smoker CPAP (continuous positive airway pressure) dependence On home oxygen therapy Leg cramps Fibromyalgia History of stress test Cardiology follow-up encounter Hx of hydrocephalus History of tennis elbow Nonrheumatic aortic (valve) insufficiency Acute respiratory failure with hypoxia COVID-19 Valvular heart disease Non-rheumatic tricuspid valve insufficiency Essential hypertension Tricuspid insufficiency Thoracic aneurysm without mention of rupture Hyperlipidemia Abnormal electrocardiogram Nonrheumatic mitral valve disorder, unspecified Nonrheumatic aortic valve disorder, unspecified Abnormal echocardiogram Ascending aortic aneurysm Anxiety Diverticulitis Home Medications ???Medication ???Instructions ???Recorded ???Last Taken ???Type vitamin B complex 1 ea PO DAILY VITAMIN 03/24/16 05/27/24 History multivitamin with folic acid 400 1 tab PO DAILY 06/17/17 05/27/24 History mcg tablet albuterol sulfate 90 mcg/actuation 1 inh inhalation Q6H PRN shortness 05/31/21 Unknown Rx aerosol inhaler of breath or wheezing #8.5 grams lorazepam 0.5 mg tablet 1 mg (2 x 0.5 mg) PO DAILY PRN PRN 05/31/21 06/16/23 Rx Anxiety #18 tabs trazodone 100 mg tablet 100 mg PO QHS 10/24/21 05/27/24 History cholecalciferol (vitamin D3) 125 10,000 unit PO DAILY 01/25/22 05/27/24 History mcg (5,000 unit) tablet azelastine 137 mcg (0.1 %) nasal 2 spray intranasal BID PRN 08/07/22 Unknown History spray ALLERGIES cetirizine 10 mg capsule (All Day 10 mg PO DAILY 08/07/22 Unknown History Allergy (cetirizine)) hydroxyzine HCl 10 mg tablet 10 mg PO TID PRN Anxiety 08/07/22 06/16/23 History hydroxychloroquine 200 mg tablet 200 mg PO BID 05/10/23 06/16/23 History cyclobenzaprine 10 mg tablet 10 mg PO TID PRN spasms 08/15/23 05/27/24 History metoprolol succinate 100 mg 100 mg PO QHS #90 tabs 11/13/23 05/27/24 Rx tablet,extended release 24 hr clonazepam 0.5 mg tablet (Klonopin) 0.5 mg PO QHS #30 tabs 03/18/24 05/27/24 Rx fluoxetine 40 mg capsule mg PO 03/31/24 Unknown History hydrochlorothiazide 25 mg tablet 25 mg PO QDAY 03/31/24 Unknown History losartan 100 mg tablet 100 mg PO QDAY 03/31/24 Unknown History menophix See Rx Instructions PO .COMPLEX 03/31/24 Unknown History celecoxib 200 mg capsule 200 mg PO DAILY 05/28/24 Unknown History Allergy/AdvReac Type Severity Reaction Status Date / Time oxycodone Allergy Swelling Verified 05/28/24 08:53 hydromorphone (From Dilaudid) AdvReac Other Verified 05/28/24 08:53 nabumetone (From Relafen) AdvReac Nausea Verified 05/28/24 08:53 Sulfa (Sulfonamide AdvReac Nausea Verified 05/28/24 08:53 Antibiotics) tramadol HCl (From Ultram) AdvReac Nausea Verified 05/28/24 08:53 Family History Father CAD (coronary artery disease) Mother aneursym Surgical History History of hip replacement Hx of shoulder surgery Hx of appendectomy Hx of tubal ligation Hx of rotator cuff surgery History of hernia repair History of colon surgery ( 10/2017) Social H (more content not included)... Normal [facility] HH, Hemoglobin AND Hematocri ton 05-28-2024 Hematocrit (Bld) [Volume fraction] 37.9 % Normal 37-47 [facility] Comment on above: Performed By: #### L 100.0600 #### [facility] [address] [place], [address] Hemoglobin (Bld) [Mass/Vol] 12.2 g/dL Normal 12.0-15.0 [facility] Comment on above: Performed By: #### L 100.0600 #### [facility] [address] [place], [address] Lactic Acidon 05-28-2024 Lactate [Moles/Vol] 1.0 mmol/L Normal 0.4-1.9 [facility] Comment on above: Performed By: #### L 100.0600 #### [facility] [address] [place], [address] Lactate [Moles/Vol] 2.3 mmol/L Invalid Interpretation Code 0.4-1.9 [facility] Comment on above: Order Comment: COLLE CTOR TO SPECIFY Result Comment: Crit ical Result(s) Called at: 10:17:48 05/28/2024 by: JEFF KING TO SERJIO BERMUDEZ. Results read back by same. Performed By: #### L 400.0001 #### [facility] [address] [place], [address] Lipaseon 05-28-2024 Lipase [Catalytic activity/Vol] 25 U/L Normal 13-75 [facility] Comment on above: Result Comment: Jo-Ann neal note: LIPASE revised reference range effective 22. New Lipase methodology. Expected to produce lower values than the previous assay method. NEW Reference Range: 13 - 75 U/L Performed By: #### L 400.0001 #### [facility] [address] [place], [address] Partial Thromboplast Timeon 05-28-2024 aPTT Coag (Bld) [Time] 26.5 s Normal 24.1-36.2 [facility] Comment on above: Performed By: #### L 300.4310, BTS, L300.3900 #### [facility] [address] [place], [address] Prothrombin Time w/INRon INR Coag (PPP) [Relative time] 1.0 {INR} Normal [facility] Comment on above: Performed By: #### L 300.4310, BTS, L300.3900 #### [facility] [address] [place], [address] PT Coag (PPP) [Time] 13.0 s Normal 11.7-14.9 [facility] Comment on above: Performed By: #### L 300.4310, BTS, L300.3900 #### [facility] [address] [place], [address] Stool Occult Blood iFOBon STOB Positive Normal [facility] Comment on above: Performed By: #### L 100.0600 #### [facility] [address] [place], [address] Type AND Screenon 05-28-2024 Ab SCREEN GEL Negative Normal [facility] Comment on above: Order Comment: HGI Performed By: #### L 300.4310, BTS, L300.3900 #### [facility] [address] [place], [address] ABO and Rh group Nom (Bld) Blood group O Rh(D) positive Normal [facility] Comment on above: Order Comment: HGI Performed By: #### L 300.4310, BTS, L300.3900 #### [facility] [address] [place], [address] Urinalysis, Completeon 05-28 EPI,SQUAMOUS 0-5 SEEN Normal 5-10 [facility] Comment on above: Order Comment: COLLE CTOR TO SPECIFY Performed By: #### L 400.0001 #### [facility] [address] [place], [address] RBC 0-5 SEEN Normal 0-5 [facility] Comment on above: Order Comment: COLLE CTOR TO SPECIFY Performed By: #### L 400.0001 #### [facility] [address] [place], [address] BACTERIA 0 SEEN Normal None Seen [facility] Comment on above: Order Comment: COLLE CTOR TO SPECIFY Performed By: #### L 400.0001 #### [facility] [address] [place], [address] Mucus Ql (Urine sed) 0 SEEN Normal [facility] Comment on above: Order Comment: COLLE CTOR TO SPECIFY Performed By: #### L 400.0001 #### [facility] [address] [place], [address] WBC 0 SEEN Normal 0-5 [facility] Comment on above: Order Comment: COLLE CTOR TO SPECIFY Performed By: #### L 400.0001 #### [facility] [address] [place], [address] CNOVon 05-26-2024 CNOV Office Visit ([place] ) -------- KRISTINA BURCH ([id number]) 1960 F Date Time Provider Department 05/26/24 3:20 PM REGINALDO BURNETT During your visit today, we recorded the following information about you: Temperature Pulse Blood pressure Weight 98.7 degrees 68/minute 151/80 95.9 kg Height 1.74 m Reginaldo Burnett MD 05/31/2024 3:45 PM Addendum This note was created using [employer]. Subjective Kristina Burch is a 64 year old female. In February was flared Given celebrex 200 mg bid Helped But then once a day and not working In February was hurting all over Hurt to touch Was swollen at ankle jt Could not wear shoes With celebrex was better Gaining wt and distress Never been this heavy 50 lbs since RA diagnosis I am still in pain * I am down Does not want to be living like this Health Lot of pain Most of pain is in back Patients rates the pain in a scale of 1-10 as: 10 Lumbar radiculopathy Shoots and russell Pain from the lower back is radiating to both buttocks and down the posterior thighs. Cannot be sitting long Cannot be standing > 10 min RFNA planned Does not want stimulator Left hip shooting pain in the groin It is hurting Left leg is weak 2016 was replaced Gen all over body Pain I am stiff all day long Review of Systems Objective BP 151/80 Pulse 68 Temp 37.1 ?C (98.7 ?F) Ht 174 cm (5' 8.5) Wt 95.9 kg (211 lb 6.4 oz) LMP 08/04/2008 BMI 31.68 kg/m? Physical Exam Vitals reviewed. Constitutional: General: She is not in acute distress. Appearance: Normal appearance. She is not ill-appearing, toxic-appearing or diaphoretic. Cardiovascular: Rate and Rhythm: Normal rate and [...] Normal. Cervical back: No rigidity or tenderness. Decreased range of motion. Thoracic back: Decreased range of motion. Lumbar back: Decreased range of motion. Right hip: Normal. Left hip: Normal. Right knee: Normal. Left knee: Normal. Right lower leg: No edema. Left lower leg: No edema. Right ankle: Normal. Left ankle: Normal. Right foot: Normal. Left foot: Normal. Comments: Dip pip enlargement 1st cmc enlargement Knee crepitus bilateral Tenderness diffuse MTP tender bilateral shoulder replacement Decreased range of motion bilateral hip replacement Decreased range of motion Lymphadenopathy: Cervical: No cervical adenopathy. Skin: Findings: No rash. Neurological: Mental Status: She is alert. Assessment and Plan First visit 02/07/23 Not seen rheum before 02/07/23 Plans to se pain mgt RA ( 03/25 wrist only involved ) 2020 Hep C neg 2013 Hep B S Ab ) 2023 Hep B s ag neg 2020 thryoglobulin ab neg 2022 CCP 81 unit, R 29 SANIYA SSA SSB neg esr 17 crp normal uric 7.1, 2022 IgA, IgG Transglutaminase Ab: neg, IgA (mg/dl): 235 2023 left foot xr : Osteoarthritis, most pronounced at the first MCP joint with severe degenerative change. (( 02/23 dry mouth med related 2022 note, no saliva gland swelling) 02/23 exam consistent with Fibromyalgia + possible Dercum + gen OA + bilateral wrist tenderness ) ((02/23 started with pain 1994, blamed it on sport, quit playing sports, volley ball and soft ball played till 38 )) ( Partial improvement with prednisone when used for COVID partial improvement ) TT Sulfa allergic kid 04/04/23 plaquenil 200 mg bid 02/09/23 (( only used one months )) 05/26/2024 do not use MTX 10 mg (04/04/23 started) (( only used one months and quit ) . Mtx 15 mg started 05/26/2024 see PA in 6 week, I will see visit after that . Fibromyalgia component severe, hold at 15 mg dose at present. Drug and disease monitoring 01/23 vit B12 303 10/26 cbc dif tsh cmp hgAic 5.8 high 03/2024 elect normal cbc diff normal 05/27 CMP alk phos 152.. (prior to starting mtx ) monitor 04/25 vit d [address] 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 There is mi (more content not included)... Normal [facility] CNPNon 05-14-2024 CNPN Normal [facility] BACTERIAL VAGINOSIS NAATon 0 05-13-2024 Lactobacillus crispatus+gasseri+tomasz senii + Gardnerella vaginalis + Atopobium vaginae rRNA MICHELLE+probe Ql (Vag fld) Negative Normal Negative for bacterial vaginosis [facility] Comment on above: Order Comment: Speci men Type: SWABOrdering Facility: [facility] Address: [address] [place] [address] Performed By: #### B VAMP, CVTV ####[facility] LABCLIA [id number] [place] [address] [place] Bacteria Ur Culton 4 Bacteria identified Cx Nom (U) ORGANISM ID: 1 50,000-<100,000 CFU/ml Normal urogenital tyrone Normal [facility] Comment on above: Performed By: #### 6 30-4 ####[facility] LABCLIA [id number] [place] [address] [place] LONA/TRICHOMONAS NAATon 0 05-13-2024 C. glabrata RNA MICHELLE+probe Ql (Vag fld) Negative Normal Negative for Lona glabrata [facility] Comment on above: Order Comment: Speci men Type: SWABOrdering Facility: [facility] Address: [address] [place] [address] Performed By: #### B VAMP, CVTV ####[facility] LABCLIA [id number] [place] [address] [place] Lona sp DNA MICHELLE+probe Ql (Vag fld) Negative Normal Negative for Lona species [facility] Comment on above: Order Comment: Speci men Type: SWABOrdering Facility: [facility] Address: [address] [place] [address] Performed By: #### B VAMP, CVTV ####[facility] LABCLIA [id number] [place] [address] [place] T. vaginalis DNA MICHELLE+probe Ql (Unsp spec) Negative Normal Negative for Trichomonas vaginalis by amplification [facility] Comment on above: Order Comment: Speci men Type: SWABOrdering Facility: [facility] Address: [address] [place] [place] [address] Performed By: #### B VAMP, CVTV ####[facility] LABCLIA [id number] [place] [address] [place] CNOVon 05-13-2024 CNOV [address] [facility] UA DIP, URINE (POC)on 2023 BILIRUBIN UA (POCT) Negative Negative [facility] CLARITY UA (POCT) Clear [facility] COLOR UA (POCT) Yellow [facility] GLUCOSE UA (POCT) Negative Negative mg/dL [facility] Hemoglobin Ql (U) Trace-intact Abnormal Negative [facility] Interpretation and review of laboratory results Abnormal [facility] KETONE UA (POCT) Negative Negative mg/dL [facility] LEUKOCYTES UA (POCT) Trace Abnormal Negative [facility] NITRITE UA (POCT) Negative Negative [facility] PH UA (POCT) 5.5 4.5 - 8.0 [facility] Protein Ql (U) Negative Negative mg/dL [facility] SPECIFIC GRAVITY UA (POCT) 1.020 1.005 - 1.030 [facility] UROBILINOGEN UA (POCT) 0.2 Normal E.U./dL [facility] Location: [place], [address] [place] [address], [place], [address] [facility] POINT OF CARE [facility] CNPNon 05-07-2024 CNPN Normal [facility] 12 Lead EKG performed by [facility] on 03-31-2024 12 Lead EKG performed by [facility] [address] [place] [address] 12 Lead EKG performed by [facility] 03/31/24 1040 MR#: [id number] Acct: [id number] Name: KRISTINA BURCH Rep #: [id number] : 1960 63 From: Too [facility] SURG[facility] SPECIALIST SURGERY SPECIALIST-C Attending Dr: Too [facility] SURGERY SPECIALIST-C Status: DEP AMB Ordering Dr: Too Anna SURGERY SPECIALIST SURGERY SPECIALIST-C Date: 03/31/24 Location: [facility] Sex: F C Admitted: BMS/12 Lead EKG performed by [facility] ECG Report Interpretation --Sinus Rhythm -Old inferior infarct. ABNORMAL Electronically signed on 04/03/2024 at 10:20 by Guilherme [employer] Version [id number] 04/03/24 1025 Date Too [facility] SURGERY SPECIALIST SURGERY SPECIALIST-C CC: Dr. Ganga Nunez MD Date Dictated: 03/31/24 1040 Date Transcribed: 03/31/24 1040 Buggy Driver: LAURENCE Signed Normal [facility] BNP,B-Type NATRIURETIC PEPTI Billy 03-31-2024 Natriuretic peptide B (Bld) [Mass/Vol] 7.1 pg/mL Normal 0-100 [facility] Comment on above: Performed By: #### L 503.6620, L500.2500 #### [facility] Laboratory [address] [place], [place], [id number] Basic Metabolic Profile (BMP )on 03-31-2024 BUN/CRE 24.5 RATIO High 10-20 [facility] Comment on above: Performed By: #### L 503.6620, L500.2500 #### [facility] [address] [place], [place], [id number] CA,Total 9.6 mg/dL Normal 8.5-10.1 [facility] Comment on above: Performed By: #### L 503.6620, L500.2500 #### [facility] [address] [place], [address] Chloride [Moles/Vol] 107 mmol/L Normal 98-107 [facility] Comment on above: Performed By: #### L 503.6620, L500.2500 #### [facility] [address] [place], [address] CO2 [Moles/Vol] 25.0 mmol/L Normal 21.0-32.0 [facility] Comment on above: Performed By: #### L 503.6620, L500.2500 #### [facility] [address] [place], [address] Creatinine [Mass/Vol] 0.86 mg/dL Normal 0.55-1.02 [facility] Comment on above: Result Comment: The validity of the calculated GFR GFRAA in patients over 70 years has not been determined. Clinical correlation is essential. Performed By: #### L 503.6620, L500.2500 #### [facility] [address] [place], [address] EST GFR - AA 85 mL/min Normal >60 [facility] Comment on above: Result Comment: Afri can [place] GFR Calc Performed By: #### L 503.6620, L500.2500 #### [facility] [address] [place], [address] GAP 7 Normal 5-15 [facility] Comment on above: Performed By: #### L 503.6620, L500.2500 #### [facility] [address] [place], [address] GFR/1.73 sq M.predicted among non-blacks MDRD (S/P/Bld) [Vol rate/Area] 71 mL/min/{1.73_m2} Normal >60 [facility] Comment on above: Result Comment: Non- GFR Calc Performed By: #### L 503.6620, L500.2500 #### [facility] [address] [place], [address] Glucose [Mass/Vol] 109 mg/dL High 74-106 [facility] Comment on above: Result Comment: Fast ing Glucose result from 100 to 125 mg/dL suggests IMPAIRED HOMEOSTASIS per A.D.A. criteria. Performed By: #### L 503.6620, L500.2500 #### [facility] [address] [place], [address] Potassium [Moles/Vol] 3.8 mmol/L Normal 3.5-5.1 [facility] Comment on above: Performed By: #### L 503.6620, L500.2500 #### [facility] [address] [place], [address] Sodium [Moles/Vol] 139 mmol/L Normal 136-145 [facility] Comment on above: Performed By: #### L 503.6620, L500.2500 #### [facility] [address] [place], [address] Urea nitrogen [Mass/Vol] 21 mg/dL High 7-18 [facility] Comment on above: Performed By: #### L 503.6620, L500.2500 #### [facility] [address] [place], [address] Cardiology Visit Reporton Cardiology Visit Report [facility] [address] [place] [address] OFFICE VISIT Date of Service: 03/31/24 MR#: [id number] Acct: [id number] Name: KRISTINA BURHC Rep #: [id number] : 1960 Provider: CRISTOFER bell Age/Sex: 63/F Location: [facility] Status: Signed HPI HPI History of Present Illness Details: This is a 63-year-old white female who presents today for outpatient cardiovascular follow-up of history of underlying valvular heart disease, hyperlipidemia, hypertension, and thoracic aortic aneurysm-without rupture. Chest CTA from 08/18/2021 showed minimal dilation of the proximal ascending aorta measuring approximately 4.2 cm in size. Repeat chest CTA in August 2023 showed transverse stable ascending aorta measuring 4.2 cm. She denies chest, arm, jaw, or neck discomfort. She acknowledges occasional palpitations that are unchanged from previous. She describes this as fast and fluttering. She acknowledges bilateral lower extremity edema that is improved with recent massage therapy. She denies claudication. She acknowledges shortness of breath with activity that is worse due to humidity. She denies shortness of breath at rest, orthopnea, cough, or PND. She acknowledges occasional dizziness. She denies lightheadedness, near-syncope, or syncope. She acknowledges fatigue and weakness. Intake Vital Signs 08/15/23 10:01 03/31/24 10:22 Height 5 ft 8 in 5 ft 8 in Weight: 207 lb BMI 31.4 BP 132/86 H Blood Pressure Location Lt brachial Position Sitting Respiration 18 Pulse 97 Pulse Source NIBP Intake Visit Reasons: INCREASING EDEMA PER PCP Upstairs Maid Required: No Is patient in pain?: No Allergies oxycodone Allergy (Verified 03/31/24 10:25) Swelling hydromorphone (From Dilaudid) Adverse Reaction (Verified 03/31/24 10:25) Other nabumetone (From Relafen) Adverse Reaction (Verified 03/31/24 10:25) Nausea Sulfa (Sulfonamide Antibiotics) Adverse Reaction (Verified 03/31/24 10:25) Nausea tramadol HCl (From Ultram) Adverse Reaction (Verified 03/31/24 10:25) Nausea Medications ???Medication ???Instructions ???Recorded ???Confirmed ???Type vitamin B complex 1 ea PO DAILY VITAMIN 03/24/16 03/31/24 History multivitamin with folic acid 400 1 tab PO DAILY 06/17/17 03/31/24 History mcg tablet meloxicam 15 mg tablet 15 mg PO DAILY 04/18/21 03/31/24 History albuterol sulfate 90 mcg/actuation 1 inh inhalation Q6H PRN shortness 05/31/21 03/31/24 Rx aerosol inhaler of breath or wheezing #8.5 grams lorazepam 0.5 mg tablet 1 mg (2 x 0.5 mg) PO DAILY PRN PRN 05/31/21 03/31/24 Rx Anxiety #18 tabs trazodone 100 mg tablet 100 mg PO QHS 10/24/21 03/31/24 History cholecalciferol (vitamin D3) 125 10,000 unit PO DAILY 01/25/22 03/31/24 History mcg (5,000 unit) tablet hydrocodone-acetaminophe n 5-325mg 2 tab PO Q6H PRN PRN Pain Score 06/15/22 03/31/24 Rx 5mg-325mg 6-10 5 days #48 tabs atorvastatin 40 mg tablet 40 mg PO QHS 08/07/22 03/31/24 History azelastine 137 mcg (0.1 %) nasal 2 spray intranasal BID PRN 08/07/22 03/31/24 History spray ALLERGIES cetirizine 10 mg capsule (All Day 10 mg PO DAILY 08/07/22 03/31/24 History Allergy (cetirizine)) hydroxyzine HCl 10 mg tablet 10 mg PO TID PRN Anxiety 08/07/22 03/31/24 History hydroxychloroquine 200 mg tablet 200 mg PO BID 05/10/23 03/31/24 History cyclobenzaprine 10 mg tablet 10 mg PO TID PRN 08/15/23 03/31/24 History metoprolol succinate 100 mg 100 mg PO QHS #90 tabs 11/13/23 03/31/24 Rx tablet,extended release 24 hr clonazepam 0.5 mg tablet (Klonopin) 0.5 mg PO QHS #30 tabs 03/18/24 03/31/24 Rx melatonin 3 mg capsule 3 mg PO HS PRN sleep #30 caps 03/18/24 03/31/24 Rx fluoxetine 40 mg capsule mg PO 03/31/24 03/31/24 History fluticasone propionate 50 2 spray intranasal DAILY PRN 03/31/24 03/31/24 History mcg/actuation nasal spray,suspension hydrochlorothiazide 25 mg tablet 25 mg PO QDAY 03/31/24 03/31/24 History losartan 100 mg tablet 100 mg PO QDAY 03/31/24 03/31/24 History menophix See Rx Instructions PO .COMPLEX 03/31/24 History Ejection fraction %: 60 Have you fallen in the past year?: No PFSH Medical History Rheumatoid arthritis Wears glasses Post-menopausal Depression Alcohol use Arthritis High cholesterol Easy bruising Excessive bleeding Neck pain Restless legs History of IBS History of diverticulitis Heartburn Gastric reflux Non-smoker CPAP (continuous positive airway pressure) dependence On home oxygen therapy Leg cramps Fibromyalgia History of stress test Cardiology follow-up encounter Hx of hydrocephalus History of tennis elbow Nonrheumatic aortic (valve) insufficiency Acute respiratory failure with hypoxia COVID-19 (more content not included)... Normal [facility] UA DIP, URINE (POC)on 2023 BILIRUBIN UA (POCT) Negative Negative [facility] CLARITY UA (POCT) Clear [facility] COLOR UA (POCT) Yellow [facility] GLUCOSE UA (POCT) Negative Negative mg/dL [facility] Hemoglobin Ql (U) Small Abnormal Negative [facility] Interpretation and review of laboratory results Abnormal [facility] KETONE UA (POCT) Negative Negative mg/dL [facility] LEUKOCYTES UA (POCT) Negative Negative [facility] NITRITE UA (POCT) Negative Negative [facility] PH UA (POCT) 5.5 4.5 - 8.0 [facility] Protein Ql (U) Negative Negative mg/dL [facility] SPECIFIC GRAVITY UA (POCT) 1.020 1.005 - 1.030 [facility] UROBILINOGEN UA (POCT) 0.2 Normal E.U./dL [facility] Location:[address], [place], [place], [id number] [place] [address] POINT OF CARE [facility] XR Foot - left AP and Latera l and obliqueon 03-17-2024 IMPRESSION: No acute osseous abnormality. Osteoarthritis, most pronounced at the first MCP joint with severe degenerative change. Buggy Driver: PSCB Transcribe Date/Time: Mar 17 2024 10:59P Dictated by : RAYSHAWN HOOPER DO This examination was interpreted and the report reviewed and electronically signed by: RAYSHAWN HOOPER DO on Mar 17 2024 11:00PM [facility] DIVISION OF RADIOLOGY * * *Final Report* * * DATE OF EXAM: Mar 13 2024 8:30AM [id number] - XR FOOT 3V AP/LAT/OBL LT / PROCEDURE REASON: Foot pain, left * * * * Physician Interpretation * * * * EXAMINATION: XR FOOT 3V AP/LAT/OBL LT CLINICAL INFORMATION: Foot pain, left TECHNIQUE: Left foot, 3 views COMPARISON: None RESULT: No acute fracture or dislocation. Severe first MTP joint degenerative change. Scattered mild degenerative changes of some IP joints. Scattered mild degenerative changes at some of the TMT joints. Posterior and plantar calcaneal spurs. DIVISION OF RADIOLOGY Provider, Everett Sepulveda - 03/17/2024 * * *Final Report* * * DATE OF EXAM: Mar 13 2024 8:30AM [id number] - XR FOOT 3V AP/LAT/OBL LT / PROCEDURE REASON: Foot pain, left * * * * Physician Interpretation * * * * EXAMINATION: XR FOOT 3V AP/LAT/OBL LT CLINICAL INFORMATION: Foot pain, left TECHNIQUE: Left foot, 3 views COMPARISON: None RESULT: No acute fracture or dislocation. Severe first MTP joint degenerative change. Scattered mild degenerative changes of some IP joints. Scattered mild degenerative changes at some of the TMT joints. Posterior and plantar calcaneal spurs. IMPRESSION IMPRESSION: No acute osseous abnormality. Osteoarthritis, most pronounced at the first MCP joint with severe degenerative change. Buggy Driver: PSCB Transcribe Date/Time: Mar 17 2024 10:59P Dictated by : RAYSHAWN HOOPER DO This examination was interpreted and the report reviewed and electronically signed by: RAYSHAWN HOOPER DO on Mar 17 2024 11:00PM EST [facility] XR Foot - left AP and Latera l and obliqueOrdered By: [facility] Provider on 03-17-2024 [facility] XR Foot - left AP and Latera l and obliqueon 03-13-2024 Radiology Study observation (narrative) [facility] Basic metabolic 2000 panelon 02-14-2024 Anion gap [Moles/Vol] 12 mmol/L 8 - 15 mmol/L [facility] Calcium [Mass/Vol] 9.6 mg/dL 8.5 - 10. 2 mg/dL [facility] Chloride [Moles/Vol] 107 mmol/L 98 - 10 7 mmol/L [facility] CO2 [Moles/Vol] 24 mmol/L 22 - 30 mmol/L [facility] Creatinine [Mass/Vol] 0.82 mg/dL 0.58 - 0.96 mg/dL [facility] GFR/1.73 sq M.predicted among non-blacks MDRD (S/P/Bld) [Vol rate/Area] 79 mL/min/{1.73_m2} - PINF [facility] Comment on above: Estimated Glomerular Filtration Rate (eGFR) is calculated using the 2020 CKD-EPI creatinine equation. This equation utilizes serum creatinine, sex, and age as parameters. The creatinine assay has traceable calibration to isotope dilution-mass spectrometry. Refer to KDIGO guidelines for clinical interpretation. In patients with unstable renal function, e.g. those with acute kidney injury, the eGFR may not accurately reflect actual GFR. Glucose [Mass/Vol] 100 mg/dL High 74 - 99 mg/dL [facility] Comment on above: The [place] Diab[employer] [place] Association (ADA) provides guidance for cutoff values for fasting glucose and random glucose. The ADA defines fasting as no caloric intake for at least 8 hours. Fasting plasma glucose results between 100 to 125 mg/dL indicate increased risk for diabetes (prediabetes). Fasting plasma glucose results greater than or equal to 126 mg/dL meet the criteria for diagnosis of diabetes. In the absence of unequivocal hyperglycemia, results should be confirmed by repeat testing. In a patient with classic symptoms of hyperglycemia or hyperglycemic crisis, random plasma glucose results greater than or equal to 200 mg/dL meet the criteria for diagnosis of diabetes. Reference: Standards of Medical Care in Diabetes 2016, [place] [employer]. Diabetes Care. 2016.39(Suppl 1). Interpretation and review of laboratory results Abnormal [facility] Potassium [Moles/Vol] 4.3 mmol/L 3.7 - 5.1 mmol/L [facility] Sodium [Moles/Vol] 143 mmol/L 136 - 144 mmol/L [facility] Urea nitrogen [Mass/Vol] 18 mg/dL 7 - 21 mg/dL [facility] CBC W Auto Differential pane l (Bld)on 02-14-2024 Basophils (Bld) [#/Vol] NINF [facility] Basophils/100 WBC (Bld) 0.3 % [facility] Differential cell count method Nom (Bld) Auto [facility] Eosinophils (Bld) [#/Vol] 0.14 10*3/uL NINF [facility] Eosinophils/100 WBC (Bld) 2.4 % [facility] Erythrocyte distribution width (RBC) [Ratio] 13.0 % 11.5 - 15.0 % [facility] Hematocrit (Bld) [Volume fraction] 37.3 % 36.0 - 46.0 % [facility] Hemoglobin (Bld) [Mass/Vol] 12.5 g/dL 11.5 - 15.5 g/dL [facility] Immature granulocytes (Bld) [#/Vol] [facility] Immature granulocytes/100 WBC (Bld) 0.3 % [facility] Lymphocytes (Bld) [#/Vol] 2.25 10*3/uL [facility] Lymphocytes/100 WBC (Bld) 39.0 % [facility] MCH (RBC) [Entitic mass] 31.0 pg 26.0 - 34.0 pg [facility] MCHC (RBC) [Mass/Vol] 33.5 g/dL 30.5 - 36.0 g/dL [facility] MCV (RBC) [Entitic vol] 92.6 fL 80.0 - 100.0 fL [facility] Monocytes (Bld) [#/Vol] 0.68 10*3/uL [facility] Monocytes/100 WBC (Bld) 11.8 % [facility] Neutrophils (Bld) [#/Vol] 2.66 10*3/uL [facility] Neutrophils/100 WBC (Bld) 46.2 % [facility] Nucleated RBC (Bld) [#/Vol] [facility] Nucleated RBC/100 WBC (Bld) [Ratio] 0.0 % /100 WBC [facility] Platelet mean volume (Bld) [Entitic vol] 12.0 fL 9.0 - 12.7 fL [facility] Platelets (Bld) [#/Vol] 232 10*3/uL [facility] RBC (Bld) [#/Vol] 4.03 10*6/uL 3.90 - 5.2 0 m/uL [facility] WBC (Bld) [#/Vol] 5.77 10*3/uL [facility] UA DIP, URINE (POC)on 2023 BILIRUBIN UA (POCT) Negative Negative [facility] CLARITY UA (POCT) Clear [facility] COLOR UA (POCT) Yellow [facility] GLUCOSE UA (POCT) Negative Negative mg/dL [facility] Hemoglobin Ql (U) Moderate Abnormal Negative [facility] Interpretation and review of laboratory results Abnormal [facility] KETONE UA (POCT) Trace Negative mg/dL [facility] LEUKOCYTES UA (POCT) Large Abnormal Negative [facility] NITRITE UA (POCT) Negative Negative [facility] PH UA (POCT) 6.0 4.5 - 8.0 [facility] Protein Ql (U) Negative Negative mg/dL [facility] SPECIFIC GRAVITY UA (POCT) 1.015 1.005 - 1.030 [facility] UROBILINOGEN UA (POCT) 0.2 Normal E.U./dL [facility] Location:[facility], [address] [facility], [place], [place], [id number] [place] [address] POINT OF CARE [facility] Absolute lymphocyte countOrd ered By: Phillip Cortez on 12-07-2023 Lymphocytes Auto (Unsp spec) [#/Vol] 1.91 10*3/uL 0.83-4.51 [facility] Automated lymphocyte count a s percentage of total leukocytesOrdered By: Phillip Cortez on 12-07-2023 Lymphocytes/100 WBC Auto (Unsp spec) 25.4 % 19-41 [facility] Basophil percentageOrdered B y: Phillip Cortez on 12-07-2023 Basophils/100 WBC (Bld) 0.1 % 0-1 [facility] Eosinophils/100 WBC (Bld) 1.9 % 0-5 [facility] Hemoglobin (Bld) [Mass/Vol] 12.7 g/dL 12.0-15.0 [facility] Monocytes/100 WBC (Bld) 12.4 % 0-10 [facility] Neutrophils (Bld) [#/Vol] 4.5 10*3/uL 2.0-7.7 [facility] Neutrophils/100 WBC (Bld) 59.9 % 47-70 [facility] WBC (Bld) [#/Vol] 7.5 10*3/uL 4.4-11.0 [facility] CBC W/Diff, Automatedon Absolute Lymph 1.91 X10 3/uL Normal 0.83-4.51 [facility] Comment on above: Performed By: #### L 400.0001 #### [facility] Laboratory [address] [place], [address] Absolute Neut 4.5 X10 3/uL Normal 2.0-7.7 [facility] Comment on above: Performed By: #### L 400.0001 #### [facility] Laboratory [address] [place], [address] Basophils/100 WBC (Bld) 0.1 % Normal 0-1 [facility] Comment on above: Performed By: #### L 400.0001 #### [facility] [address] [place], [address] Eosinophils/100 WBC (Bld) 1.9 % Normal 0-5 [facility] Comment on above: Performed By: #### L 400.0001 #### [facility] [address] [place], [address] Erythrocyte distribution width (RBC) [Ratio] 14.1 % Normal 11.6-14.6 [facility] Comment on above: Performed By: #### L 400.0001 #### [facility] [address] [place], [address] Hematocrit (Bld) [Volume fraction] 37.9 % Normal 37-47 [facility] Comment on above: Performed By: #### L 400.0001 #### [facility] Laboratory [address] [place], [address] Hemoglobin (Bld) [Mass/Vol] 12.7 g/dL Normal 12.0-15.0 [facility] Comment on above: Performed By: #### L 400.0001 #### [facility] [address] [place], [address] IG% 0.300 Normal 0.0-0.9 [facility] Comment on above: Result Comment: IG% - Immature Granulocytes (promyelocytes, myelocytes and metamyelocytes) > 1% indicates that a LEFT SHIFT is Present. Performed By: #### L 400.0001 #### [facility] [address] [place], [address] Lymphocytes/100 WBC (Bld) 25.4 % Normal 19-41 [facility] Comment on above: Performed By: #### L 400.0001 #### [facility] [address] [place], [address] MCH (RBC) [Entitic mass] 30.2 pg Normal 27.0-32.0 [facility] Comment on above: Performed By: #### L 400.0001 #### [facility] Laboratory [address] [place], [address] MCHC (RBC) [Mass/Vol] 33.5 g/dL Normal 32-36 [facility] Comment on above: Performed By: #### L 400.0001 #### [facility] Laboratory [address] [place], [address] MCV (RBC) [Entitic vol] 90.0 fL Normal 81-99 [facility] Comment on above: Performed By: #### L 400.0001 #### [facility] Laboratory [address] [place], [address] Monocytes/100 WBC (Bld) 12.4 % High 0-10 [facility] Comment on above: Performed By: #### L 400.0001 #### [facility] [address] [place], [address] Neutrophils/100 WBC (Bld) 59.9 % Normal 47-70 [facility] Comment on above: Performed By: #### L 400.0001 #### [facility] [address] [place], [address] Nucleated RBC (Bld) [#/Vol] 0 10*3/uL Normal 0-5 [facility] Comment on above: Performed By: #### L 400.0001 #### [facility] [address] [place], [address] Platelet mean volume (Bld) [Entitic vol] 10.9 fL Normal 6.2-12.0 [facility] Comment on above: Performed By: #### L 400.0001 #### [facility] Laboratory [address] [place], [address] Platelets (Bld) [#/Vol] 224 10*3/uL Normal 150-450 [facility] Comment on above: Performed By: #### L 400.0001 #### [facility] [address] [place], [address] RBC (Bld) [#/Vol] 4.21 10*6/uL Normal 4.2-5.4 [facility] Comment on above: Performed By: #### L 400.0001 #### [facility] [address] [place], [address] RDW SD 45.2 fl High 35.1-43.9 [facility] Comment on above: Performed By: #### L 400.0001 #### [facility] Laboratory [address] [place], [address] WBC (Bld) [#/Vol] 7.5 10*3/uL Normal 4.4-11.0 [facility] Comment on above: Performed By: #### L 400.0001 #### [facility] [address] [place], [address] CRPon 12-07-2023 C-REACTIVE PROT < 2.90 Normal 0.0-3.0 [facility] Comment on above: Result Comment: C-Re active Protein (CRP) provides useful information for the diagnosis, therapy and monitoring of inflammatory processes and associated diseases. For the evaluation of Relative Risk for Cardiovascular Disease, a High Sensitivity CRP (HSCRP) should be ordered. Performed By: #### L 400.0001 #### [facility] [address] [place], [address] Determination of erythrocyte mean corpuscular volume (MCV)Ordered By: Phillip Cortez on 12-07-2023 MCV (RBC) [Entitic vol] 90.0 fL 81-99 [facility] Erythrocyte Sed Rateon 12-06 SED RATE 9 mm/hr Normal 0-30 [facility] Comment on above: Performed By: #### L 400.0001 #### [facility] Laboratory [address] [place], [address] Erythrocyte distribution wid th ratioOrdered By: Phillip Cortez on 12-07-2023 Erythrocyte distribution width (RBC) [Ratio] 14.1 % 11.6-14.6 [facility] Erythrocyte distribution wid th standard deviationOrdered By: Phillip Cortez on 12-07-2023 Erythrocyte distribution width (RBC) [Entitic vol] 45.2 fL 35.1-43.9 [facility] Erythrocyte sedimentation ra teOrdered By: Phillip Cortez on 12-07-2023 ESR (Bld) [Velocity] 9 mm/h 0-30 [facility] Hematocrit Auto (Bld) [Volum e fraction]Ordered By: Phillip Cortez on 12-07-2023 Hematocrit (Bld) [Volume fraction] 37.9 % 37-47 [facility] Immature granulocytes/100 WB C Auto (Bld)Ordered By: Phillip Cortez on 12-07-2023 Immature granulocytes/100 WBC (Bld) 0.300 % 0.0-0.9 [facility] Comment on above: IG% - Immature Granu locytes (promyelocytes, myelocytes and metamyelocytes) > 1% indicates that a LEFT SHIFT is Present. Laboratory - Hematology and Cell countsOrdered By: Phillip Cortez on 12-07-2023 MCH (RBC) [Entitic mass] 30.2 pg 27.0-32.0 [facility] MCHC (RBC) [Mass/Vol] 33.5 g/dL 32-36 [facility] Nucleated RBC/100 WBC (Bld) [Ratio] 0 % 0-5 [facility] Platelet mean volume (Bld) [Entitic vol] 10.9 fL 6.2-12.0 [facility] Platelets (Bld) [#/Vol] 224 10*3/uL 150-450 [facility] No Panel InformationOrdered By: Phillip Cortez on 12-07-2023 C-Reactive Protein Extended Range < 2.90 mg/L 0.0-3.0 [facility] Comment on above: C-Reactive Protein ( CRP) provides useful information for thediagnosis, therapy and monitoring of inflammatory processesand associated diseases. For the evaluation of Relative Riskfor Cardiovascular Disease, a High Sensitivity CRP (HSCRP)should be ordered. RBC Auto (Bld) [#/Vol]Ordere d By: Phillip Cortez on 12-07-2023 RBC (Bld) [#/Vol] 4.21 10*6/uL 4.2-5.4 [facility] Extremity Upper without Cont raon 12-05-2023 Extremity Upper without Contra [facility] [address] [place] [address] Extremity Upper without Contra MR#: [id number] Acct: [id number] Name: KRISTINA BURCH Rep #: [id number] : 1960 F 63 From: Toñito Ellis MD PCP: Dr. Ganga Nunez MD Status: REG CLI Study: Extremity Upper without Contra Date of Exam: 0 12/05/23 Exam# [id number] Ordering Dr: Phillip Cortez MD [id number] STUDY: CT LEFT SHOULDER REASON FOR EXAM: Female, 63 years old. POST OP FX, PAIN. RADIATION DOSAGE (If Supplied By Facility): CTDIvol = ( 24.96 ) mGy, DLP = ( 566.03 ) mGycm TECHNIQUE: The patient was scanned in a multi detector CT scanner. High resolution transaxial imaging was performed without the administration of intravenous contrast material. Sagittal and coronal images were reconstructed. Individualized dose optimization techniques were used for this CT. COMPARISON: None. 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 Normal coracoid process. Normal visualized lateral clavicle. There is mild osteoarthritis with articular joint space narrowing. There is a Type II morphology (curved) acromion, with a neutral orientation. Normal visualized muscles and soft tissue structures. There is no acute fracture seen. CT/Extremity Upper without Contra IMPRESSION: Reverse total shoulder replacement. No fracture seen. Electronically Signed: Toñito Ellis MD at 18:18 EDT , CC: Dr. Ganga Nunez MD; Dr. Phillip Cortez MD Buggy Driver: Signed Normal [facility] .Auto Diffon 10-31-2023 Basophil, Absolute 0.0 10 3/mcL Normal 0.0-0.2 [facility] ([place]) Comment on above: Performed By: #### M RSAPCR #### [address] [address] Basophils/100 WBC (Bld) 0.3 % Normal 0.0-2.5 [facility] ([place]) Comment on above: Performed By: #### M RSAPCR #### [address] [address] Eosinophil, Absolute 0.0 10 3/mcL Normal 0.0-0.4 [facility] ([place]) Comment on above: Performed By: #### M RSAPCR #### [address] [address] Eosinophils/100 WBC (Bld) 0.0 % Normal 0.0-7.0 [facility] ([place]) Comment on above: Performed By: #### M RSAPCR #### [address] [address] Lymphocyte, Absolute 1.1 10 3/mcL Normal 0.8-3.9 [facility] ([place]) Comment on above: Performed By: #### M RSAPCR #### [address] [address] Lymphocytes/100 WBC (Bld) 9.5 % Low 10.0-50.0 [facility] ([place]) Comment on above: Performed By: #### M RSAPCR #### [address] [address] Monocyte, Absolute 1.1 10 3/mcL High 0.2-1.0 [facility] ([place]) Comment on above: Performed By: #### M RSAPCR #### [address] [address] Monocytes/100 WBC (Bld) 9.3 % Normal 1.7-13.0 [facility] ([place]) Comment on above: Performed By: #### M RSAPCR #### [address] [address] Neutrophils/100 WBC (Bld) 80.9 % High 37.0-80.0 [facility] ([place]) Comment on above: Performed By: #### M RSAPCR #### [address] [address] .GFRon 10-31-2023 GFR 63 ml/min/1.73sqm Normal [facility] ([place]) Comment on above: Result Comment: GFR Population mean for , Non- Americans Ages 20-29 = 116 mL/min/1.73 sq.m. Ages 30-39 = 107 mL/min/1.73 sq.m. Ages 40-49 = 99 mL/min/1.73 sq.m. Ages 50-59 = 93 mL/min/1.73 sq.m. Ages 60-69 = 85 mL/min/1.73 sq.m. Ages 70+ = 75 mL/min/1.73 sq.m. Chronic Kidney Disease: Less than 60 mL/min/1.73 square meters End Stage Renal Disease: Less than 15 mL/min/1.73 square meters Performed By: #### M RSAPCR #### [address] [address] GFR Non- 52 ml/min/1.73sqm Normal [facility] ([place]) Comment on above: Result Comment: GFR Population mean for , Non- Americans Ages 20-29 = 116 mL/min/1.73 sq.m. Ages 30-39 = 107 mL/min/1.73 sq.m. Ages 40-49 = 99 mL/min/1.73 sq.m. Ages 50-59 = 93 mL/min/1.73 sq.m. Ages 60-69 = 85 mL/min/1.73 sq.m. Ages 70+ = 75 mL/min/1.73 sq.m. Chronic Kidney Disease: Less than 60 mL/min/1.73 square meters End Stage Renal Disease: Less than 15 mL/min/1.73 square meters Performed By: #### M RSAPCR #### [address] [address] .NEUABSon 10-31-2023 Neutrophil, Absolute 9.2 10 3/mcL High 2.9-6.2 [facility] ([place]) Comment on above: Performed By: #### M RSAPCR #### [address] [address] BMPon 10-31-2023 BUN/Creatinine Ratio 17 ratio Normal 7-27 [facility] ([place]) Comment on above: Performed By: #### M RSAPCR #### [address] [address] Calcium [Mass/Vol] 9.0 mg/dL Normal 8.4-10.2 [facility] ([place]) Comment on above: Performed By: #### M RSAPCR #### [address] [address] Chloride [Moles/Vol] 104 mmol/L Normal 98-107 [facility] ([place]) Comment on above: Performed By: #### M RSAPCR #### [address] [address] CO2 [Moles/Vol] 26 mmol/L Normal 23-31 [facility] ([place]) Comment on above: Performed By: #### M RSAPCR #### [address] [address] Creatinine [Mass/Vol] 1.06 mg/dL High 0.55-1.02 [facility] ([place]) Comment on above: Performed By: #### M RSAPCR #### [address] [address] Electrolyte Balance 12.0 mEq/L Normal 4.0-15.0 [facility] ([place]) Comment on above: Performed By: #### M RSAPCR #### [address] [address] Glucose [Mass/Vol] 149 mg/dL High 80-115 [facility] ([place]) Comment on above: Performed By: #### M RSAPCR #### [place] [id number] Potassium [Moles/Vol] 4.5 mmol/L Normal 3.5-5.1 [facility] ([place]) Comment on above: Performed By: #### M RSAPCR #### [place] [id number] Sodium [Moles/Vol] 142 mmol/L Normal 136-145 [facility] ([place]) Comment on above: Performed By: #### M RSAPCR #### [place] [id number] Urea nitrogen [Mass/Vol] 18 mg/dL Normal 7-18 [facility] ([place]) Comment on above: Performed By: #### M RSAPCR #### [address] [address] CBCon 10-31-2023 Erythrocyte distribution width (RBC) [Ratio] 15.7 % High 11.5-14.5 [facility] ([place]) Comment on above: Performed By: #### M RSAPCR #### [address] [address] Hematocrit (Bld) [Volume fraction] 33.5 % Low 37.0-47.0 [facility] ([place]) Comment on above: Performed By: #### M RSAPCR #### [place] [id number] Hgb 11.2 G/dL Low 12.0-16.0 [facility] ([place]) Comment on above: Performed By: #### M RSAPCR #### [place] [id number] MCH (RBC) [Entitic mass] 29.5 pg Normal 27.0-31.2 [facility] ([place]) Comment on above: Performed By: #### M RSAPCR #### [place] [address] MCHC 33.5 G/dL Normal 33.0-37.0 [facility] ([place]) Comment on above: Performed By: #### M RSAPCR #### [place] [address] MCV (RBC) [Entitic vol] 88.3 fL Normal 80.0-94.0 [facility] ([place]) Comment on above: Performed By: #### M RSAPCR #### [place] [address] Platelet 127 10 3/mcL Low 130-400 [facility] ([place]) Comment on above: Performed By: #### M RSAPCR #### [place] [address] Platelet mean volume (Bld) [Entitic vol] 10.3 fL Normal 7.4-10.4 [facility] ([place]) Comment on above: Performed By: #### M RSAPCR #### [place] [address] RBC 3.79 10 6/mcL Low 4.20-5.40 [facility] ([place]) Comment on above: Performed By: #### M RSAPCR #### [place] [address] WBC 11.4 10 3/mcL High 4.6-10.8 [facility] ([place]) Comment on above: Performed By: #### M RSAPCR #### [place] [address] LABORATORYOrdered By: SYSTEM SYSTEM on 10-31-2023 Basophil, Absolute 0.0 103/mcL Normal 0.0 - 0.2 10^3/mcL AO Workflow SS Basophils/100 WBC (Bld) 0.3 % Normal 0.0 - 2.5 % AO Workflow SS Calcium [Mass/Vol] 9.0 mg/dL Normal 8.4 - 10. 2 mg/dL AO ADM SS Chloride [Moles/Vol] 104 mmol/L Normal 98 - 10 7 mmol/L AO ADM SS CO2 [Moles/Vol] 26 mmol/L Normal 23 - 31 mmol/L AO AD M SS Creatinine [Mass/Vol] 1.06 mg/dL High 0.55 - 1.02 mg/dL AO ADM SS Electrolyte Balance 12.0 mEq/L Normal 4.0 - 15 .0 mEq/L AO ADM SS Eosinophil, Absolute 0.0 103/mcL Normal 0.0 - 0 .4 10^3/mcL AO Workflow SS Eosinophils/100 WBC (Bld) 0.0 % Normal 0.0 - 7.0 % AO Workflow SS Erythrocyte distribution width (RBC) [Ratio] 15.7 % High 11.5 - 14.5 % AO Workflow SS GFR/1.73 sq M.predicted among blacks MDRD (S/P/Bld) [Vol rate/Area] 63 ml/min/1.73sqm Invalid Interpretation Code AO Chemistry S Comment on above: Interpretive Data: GFR Population mean for , Non- Americans Ages 20-29 = 116 mL/min/1.73 sq.m. Ages 30-39 = 107 mL/min/1.73 sq.m. Ages 40-49 = 99 mL/min/1.73 sq.m. Ages 50-59 = 93 mL/min/1.73 sq.m. Ages 60-69 = 85 mL/min/1.73 sq.m. Ages 70+ = 75 mL/min/1.73 sq.m. Chronic Kidney Disease: Less than 60 mL/min/1.73 square meters End Stage Renal Disease: Less than 15 mL/min/1.73 square meters GFR/1.73 sq M.predicted among non-blacks MDRD (S/P/Bld) [Vol rate/Area] 52 ml/min/1.73sqm Invalid Interpretation Code AO Chemistry S Comment on above: Interpretive Data: GFR Population mean for , Non- Americans Ages 20-29 = 116 mL/min/1.73 sq.m. Ages 30-39 = 107 mL/min/1.73 sq.m. Ages 40-49 = 99 mL/min/1.73 sq.m. Ages 50-59 = 93 mL/min/1.73 sq.m. Ages 60-69 = 85 mL/min/1.73 sq.m. Ages 70+ = 75 mL/min/1.73 sq.m. Chronic Kidney Disease: Less than 60 mL/min/1.73 square meters End Stage Renal Disease: Less than 15 mL/min/1.73 square meters Glucose [Mass/Vol] 149 mg/dL High 80 - 115 mg/dL AO ADM SS Hematocrit (Bld) [Volume fraction] 33.5 % Low 37.0 - 47.0 % AO Workflow SS Hemoglobin (Bld) [Mass/Vol] 11.2 G/dL Low 12.0 - 16.0 G/dL AO Workflow SS Lymphocyte, Absolute 1.1 103/mcL Normal 0.8 - 3 .9 10^3/mcL AO Workflow SS Lymphocytes/100 WBC (Bld) 9.5 % Low 10.0 - 50.0 % AO Workflow SS MCH (RBC) [Entitic mass] 29.5 pg Normal 27.0 - 31.2 pg AO Workflow SS MCHC 33.5 G/dL Normal 33.0 - 37.0 G/dL AO Workflow SS MCV (RBC) [Entitic vol] 88.3 fL Normal 80.0 - 94.0 fL AO Workflow SS Monocyte, Absolute 1.1 103/mcL High 0.2 - 1.0 10^3/mcL AO Workflow SS Monocytes/100 WBC (Bld) 9.3 % Normal 1.7 - 13.0 % AO Workflow SS Neutrophil, Absolute 9.2 103/mcL High 2.9 - 6 .2 10^3/mcL AO Workflow SS Neutrophils/100 WBC (Bld) 80.9 % High 37.0 - 80.0 % AO Workflow SS Platelet mean volume (Bld) [Entitic vol] 10.3 fL Normal 7.4 - 10.4 fL AO Workflow SS Platelets (Bld) [#/Vol] 127 103/mcL Low 130 - 400 10^3/mcL AO Workflow SS Potassium [Moles/Vol] 4.5 mmol/L Normal 3.5 - 5.1 mmol/L AO ADM SS RBC (Bld) [#/Vol] 3.79 106/mcL Low 4.20 - 5.4 0 10^6/mcL AO Workflow SS Sodium [Moles/Vol] 142 mmol/L Normal 136 - 145 mmol/L AO ADM SS Urea nitrogen [Mass/Vol] 18 mg/dL Normal 7 - 18 mg/dL AO ADM SS Urea nitrogen/Creatinine [Mass ratio] 17 ratio Normal 7 - 27 ratio AO ADM SS WBC (Bld) [#/Vol] 11.4 103/mcL High 4.6 - 10.8 10^3/mcL AO Workflow SS Gel ABOon 10-30-2023 ABO/Rh Interp Positive Invalid Interpretation Code [facility] ([place]) Comment on above: Performed By: #### M RSAPCR #### [address] [address] Gel ABSon 10-30-2023 Antibody Screen Gel Negative Normal [facility] ([place]) Comment on above: Performed By: #### M RSAPCR #### [address] [address] LABORATORYOrdered By: Malena Patel on 10-30-2023 ABO/Rh Interp Positive Invalid Interpretation Code AO BB SS Antibody Screen Gel Negative ABSC (10/30/23 7:04 AM) Normal AO BB SS XR SHOULDER MINIMUM 2 VIEWS LEFTon 10-30-2023 XR SHOULDER MINIMUM 2 VIEWS LEFT ORIGINAL EXAMINATION: TWO XRAY VIEWS OF THE LEFT SHOULDER10/30/2023 10:12 am COMPARISON: CT shoulder 10/05/2023 HISTORY: ORDERING SYSTEM PROVIDED HISTORY: Reason for Exam: Status Post Arthroplasty FINDINGS: Interval placement of a total reverse left shoulder arthroplasty. No evidence of hardware fracture or surrounding lucency. Small osseous fragment may represent degenerative change versus postoperative changes along the inferior glenoid and medial proximal humerus. Otherwise no acute osseous injury. No visible dislocation. Degenerative change within the acromioclavicular joint. The included thorax is not well evaluated on this exam however findings suggest possible low lung volumes. Soft tissue gas is noted surrounding the shoulder and likely representing expected postoperative changes. IMPRESSION: Interval total reverse left shoulder arthroplasty with suspected surrounding postoperative changes described above. Hypoventilatory changes. I have personally reviewed the images of this examination and agree with the resident's findings and interpretation. Interpreted by: Samson Pascal MD Preliminary Report By: Angy Haynes Electronically signed By Samson Pascal MD Dictated Date: 10/30/2023 10:19:44 AM Prelim Date: 10/30/2023 10:28:25 AM Sign Date: 10/30/2023 10:37:57 AM Ordering Provider: PHILLIP CORTEZ [facility] ([place]) XR Finger - left AP and Late ral and obliqueon 10-11-2023 IMPRESSION: No acute osseous abnormality Buggy Driver: PSCB Transcribe Date/Time: Oct 11 2023 9:34A Dictated by : PATRICK MCNEILL MD This examination was interpreted and the report reviewed and electronically signed by: PATRICK MCNEILL MD on Oct 11 2023 9:37AM EST DIVISION OF RADIOLOGY * * *Final Report* * * DATE OF EXAM: Oct 10 2023 10:08AM WOX [id number] - XR DIGIT 3V FRONTAL/LAT/OBL LT / PROCEDURE REASON: Thumb pain, left * * * * Physician Interpretation * * * * EXAMINATION: XR DIGIT 3V FRONTAL/LAT/OBL LT CLINICAL HISTORY: Left thumb pain Technique: XR DIGIT 3V FRONTAL/LAT/OBL LT -- LEFT with 3 views on 3 images Comparison: None RESULT: No acute fracture or dislocation. Mild first carpometacarpal joint space narrowing. No periarticular erosions. DIVISION OF RADIOLOGY Provider, [facility] - 10/11/2023 * * *Final Report* * * DATE OF EXAM: Oct 10 2023 10:08AM WOX [id number] - XR DIGIT 3V FRONTAL/LAT/OBL LT / PROCEDURE REASON: Thumb pain, left * * * * Physician Interpretation * * * * EXAMINATION: XR DIGIT 3V FRONTAL/LAT/OBL LT CLINICAL HISTORY: Left thumb pain Technique: XR DIGIT 3V FRONTAL/LAT/OBL LT -- LEFT with 3 views on 3 images Comparison: None RESULT: No acute fracture or dislocation. Mild first carpometacarpal joint space narrowing. No periarticular erosions. IMPRESSION IMPRESSION: No acute osseous abnormality Buggy Driver: PSCB Transcribe Date/Time: Oct 11 2023 9:34A Dictated by : PATRICK MCNEILL MD This examination was interpreted and the report reviewed and electronically signed by: PATRICK MCNEILL MD on Oct 11 2023 9:37AM EST [facility] XR Finger - left AP and Late ral and obliqueOrdered By: Ccf Provider on 10-11-2023 [facility] Basic metabolic 2000 panelon 10-10-2023 Anion gap [Moles/Vol] 13 mmol/L 9 - 18 mmol/L [facility] Calcium [Mass/Vol] 9.7 mg/dL 8.5 - 10. 2 mg/dL [facility] Chloride [Moles/Vol] 101 mmol/L 97 - 10 5 mmol/L [facility] CO2 [Moles/Vol] 25 mmol/L 22 - 30 mmol/L [facility] Creatinine [Mass/Vol] 0.89 mg/dL 0.58 - 0.96 mg/dL [facility] Estimated Glomerular Filtration Rate 72 mL/min/1.73m >=60 mL/min/1.73m [facility] Glucose [Mass/Vol] 104 mg/dL High 74 - 99 mg/dL [facility] Potassium [Moles/Vol] 4.5 mmol/L 3.7 - 5.1 mmol/L [facility] Sodium [Moles/Vol] 139 mmol/L 136 - 144 mmol/L [facility] Urea nitrogen [Mass/Vol] 17 mg/dL 7 - 21 mg/dL [facility] CBC W Auto Differential pane l (Bld)on 10-10-2023 Basophils (Bld) [#/Vol] <0.11 k/uL [facility] Basophils/100 WBC (Bld) 0.4 % [facility] Differential cell count method Nom (Bld) Auto [facility] Eosinophils (Bld) [#/Vol] 0.14 10*3/uL <0.46 k/uL [facility] Eosinophils/100 WBC (Bld) 2.8 % [facility] Erythrocyte distribution width (RBC) [Ratio] 13.9 % 11.5 - 15.0 % [facility] Hematocrit (Bld) [Volume fraction] 39.4 % 36.0 - 46.0 % [facility] Hemoglobin (Bld) [Mass/Vol] 12.7 g/dL 11.5 - 15.5 g/dL [facility] Immature granulocytes (Bld) [#/Vol] <0.10 k/uL [facility] Immature granulocytes/100 WBC (Bld) 0.2 % [facility] Lymphocytes (Bld) [#/Vol] 1.60 10*3/uL 1.00 - 4.00 k/uL [facility] Lymphocytes/100 WBC (Bld) 32.3 % [facility] MCH (RBC) [Entitic mass] 28.5 pg 26.0 - 34.0 pg [facility] MCHC (RBC) [Mass/Vol] 32.2 g/dL 30.5 - 36.0 g/dL [facility] MCV (RBC) [Entitic vol] 88.3 fL 80.0 - 100.0 fL [facility] Monocytes (Bld) [#/Vol] 0.65 10*3/uL <0.87 k/uL [facility] Monocytes/100 WBC (Bld) 13.1 % [facility] Neutrophils (Bld) [#/Vol] 2.53 10*3/uL 1.45 - 7.50 k/uL [facility] Neutrophils/100 WBC (Bld) 51.2 % [facility] Nucleated RBC (Bld) [#/Vol] <0.01 k/uL [facility] Nucleated RBC/100 WBC (Bld) [Ratio] 0.0 /100 WBC [facility] Platelet mean volume (Bld) [Entitic vol] 11.6 fL 9.0 - 12.7 fL [facility] Platelets (Bld) [#/Vol] 208 10*3/uL 150 - 400 k/uL [facility] RBC (Bld) [#/Vol] 4.46 10*6/uL 3.90 - 5.2 0 m/uL [facility] WBC (Bld) [#/Vol] 4.95 10*3/uL 3.70 - 11. 00 k/uL [facility] XR Finger - left AP and Late ral and obliqueon 10-10-2023 Radiology Study observation (narrative) [facility] .Auto Diffon 10-05-2023 Basophil, Absolute 0.0 10 3/mcL Normal 0.0-0.2 [facility] ([place]) Comment on above: Performed By: #### A BOG, ADIFF, A1C, ANEU, BMP, ALB, GFR, ANSG, CBC #### [address] [address] Basophils/100 WBC (Bld) 0.4 % Normal 0.0-2.5 [facility] ([place]) Comment on above: Performed By: #### A BOG, ADIFF, A1C, ANEU, BMP, ALB, GFR, ANSG, CBC #### [address] [address] Eosinophil, Absolute 0.1 10 3/mcL Normal 0.0-0.4 [facility] ([place]) Comment on above: Performed By: #### A BOG, ADIFF, A1C, ANEU, BMP, ALB, GFR, ANSG, CBC #### [address] [address] Eosinophils/100 WBC (Bld) 3.1 % Normal 0.0-7.0 [facility] ([place]) Comment on above: Performed By: #### A BOG, ADIFF, A1C, ANEU, BMP, ALB, GFR, ANSG, CBC #### [address] [address] Lymphocyte, Absolute 1.4 10 3/mcL Normal 0.8-3.9 [facility] ([place]) Comment on above: Performed By: #### A BOG, ADIFF, A1C, ANEU, BMP, ALB, GFR, ANSG, CBC #### [address] [address] Lymphocytes/100 WBC (Bld) 32.6 % Normal 10.0-50.0 [facility] ([place]) Comment on above: Performed By: #### A BOG, ADIFF, A1C, ANEU, BMP, ALB, GFR, ANSG, CBC #### [address] [address] Monocyte, Absolute 0.4 10 3/mcL Normal 0.2-1.0 [facility] ([place]) Comment on above: Performed By: #### A BOG, ADIFF, A1C, ANEU, BMP, ALB, GFR, ANSG, CBC #### [address] [address] Monocytes/100 WBC (Bld) 10.9 % Normal 1.7-13.0 [facility] ([place]) Comment on above: Performed By: #### A BOG, ADIFF, A1C, ANEU, BMP, ALB, GFR, ANSG, CBC #### [address] [address] Neutrophils/100 WBC (Bld) 52.8 % Normal 37.0-80.0 [facility] ([place]) Comment on above: Performed By: #### A BOG, ADIFF, A1C, ANEU, BMP, ALB, GFR, ANSG, CBC #### [address] [address] .GFRon 10-05-2023 GFR 70 ml/min/1.73sqm Normal [facility] ([place]) Comment on above: Result Comment: GFR Population mean for , Non- Americans Ages 20-29 = 116 mL/min/1.73 sq.m. Ages 30-39 = 107 mL/min/1.73 sq.m. Ages 40-49 = 99 mL/min/1.73 sq.m. Ages 50-59 = 93 mL/min/1.73 sq.m. Ages 60-69 = 85 mL/min/1.73 sq.m. Ages 70+ = 75 mL/min/1.73 sq.m. Chronic Kidney Disease: Less than 60 mL/min/1.73 square meters End Stage Renal Disease: Less than 15 mL/min/1.73 square meters Performed By: #### A BOG, ADIFF, A1C, ANEU, BMP, ALB, GFR, ANSG, CBC #### [address] [address] GFR Non- 58 ml/min/1.73sqm Normal [facility] ([place]) Comment on above: Result Comment: GFR Population mean for , Non- Americans Ages 20-29 = 116 mL/min/1.73 sq.m. Ages 30-39 = 107 mL/min/1.73 sq.m. Ages 40-49 = 99 mL/min/1.73 sq.m. Ages 50-59 = 93 mL/min/1.73 sq.m. Ages 60-69 = 85 mL/min/1.73 sq.m. Ages 70+ = 75 mL/min/1.73 sq.m. Chronic Kidney Disease: Less than 60 mL/min/1.73 square meters End Stage Renal Disease: Less than 15 mL/min/1.73 square meters Performed By: #### A BOG, ADIFF, A1C, ANEU, BMP, ALB, GFR, ANSG, CBC #### [address] [address] .NEUABSon 10-05-2023 Neutrophil, Absolute 2.2 10 3/mcL Low 2.9-6.2 [facility] ([place]) Comment on above: Performed By: #### A BOG, ADIFF, A1C, ANEU, BMP, ALB, GFR, ANSG, CBC #### [address] [address] A1Con 10-05-2023 HbA1c (Bld) [Mass fraction] 5.7 % Normal 4.3-6.4 [facility] ([place]) Comment on above: Performed By: #### M RSAPCR #### [address] [address] ALBon 10-05-2023 Albumin Level 3.6 G/dL Normal 3.4-4.8 [facility]) Comment on above: Performed By: #### A BOG, ADIFF, A1C, ANEU, BMP, ALB, GFR, ANSG, CBC #### [address] [address] BMPon 10-05-2023 BUN/Creatinine Ratio 16 ratio Normal 7-27 [facility]) Comment on above: Performed By: #### A BOG, ADIFF, A1C, ANEU, BMP, ALB, GFR, ANSG, CBC #### [address] [address] Calcium [Mass/Vol] 9.4 mg/dL Normal 8.4-10.2 [facility] ([place]) Comment on above: Performed By: #### A BOG, ADIFF, A1C, ANEU, BMP, ALB, GFR, ANSG, CBC #### [address] [address] Chloride [Moles/Vol] 103 mmol/L Normal 98-107 [facility] ([place]) Comment on above: Performed By: #### A BOG, ADIFF, A1C, ANEU, BMP, ALB, GFR, ANSG, CBC #### [address] [address] CO2 [Moles/Vol] 26 mmol/L Normal 23-31 [facility] ([place]) Comment on above: Performed By: #### A BOG, ADIFF, A1C, ANEU, BMP, ALB, GFR, ANSG, CBC #### [address] [address] Creatinine [Mass/Vol] 0.97 mg/dL Normal 0.55-1.02 [facility] ([place]) Comment on above: Performed By: #### A BOG, ADIFF, A1C, ANEU, BMP, ALB, GFR, ANSG, CBC #### [address] [address] Electrolyte Balance 11.0 mEq/L Normal 4.0-15.0 [facility] ([place]) Comment on above: Performed By: #### A BOG, ADIFF, A1C, ANEU, BMP, ALB, GFR, ANSG, CBC #### [address] [address] Glucose [Mass/Vol] 99 mg/dL Normal 80-115 [facility] ([place]) Comment on above: Performed By: #### A BOG, ADIFF, A1C, ANEU, BMP, ALB, GFR, ANSG, CBC #### [address] [address] Potassium [Moles/Vol] 4.3 mmol/L Normal 3.5-5.1 [facility] ([place]) Comment on above: Performed By: #### A BOG, ADIFF, A1C, ANEU, BMP, ALB, GFR, ANSG, CBC #### [address] [address] Sodium [Moles/Vol] 140 mmol/L Normal 136-145 [facility] ([place]) Comment on above: Performed By: #### A BOG, ADIFF, A1C, ANEU, BMP, ALB, GFR, ANSG, CBC #### [address] [address] Urea nitrogen [Mass/Vol] 16 mg/dL Normal 7-18 [facility] ([place]) Comment on above: Performed By: #### A BOG, ADIFF, A1C, ANEU, BMP, ALB, GFR, ANSG, CBC #### [place] [id number] CBCon 10-05-2023 Erythrocyte distribution width (RBC) [Ratio] 14.0 % Normal 11.5-14.5 [facility] ([place]) Comment on above: Order Comment: Pre-A dmission Testing Performed By: #### A BOG, ADIFF, A1C, ANEU, BMP, ALB, GFR, ANSG, CBC #### [place] [address] Hematocrit (Bld) [Volume fraction] 37.6 % Normal 37.0-47.0 [facility] ([place]) Comment on above: Order Comment: Pre-A dmission Testing Performed By: #### A BOG, ADIFF, A1C, ANEU, BMP, ALB, GFR, ANSG, CBC #### [place] [address] Hgb 12.7 G/dL Normal 12.0-16.0 [facility] ([place]) Comment on above: Order Comment: Pre-A dmission Testing Performed By: #### A BOG, ADIFF, A1C, ANEU, BMP, ALB, GFR, ANSG, CBC #### [place] [id number] MCH (RBC) [Entitic mass] 29.3 pg Normal 27.0-31.2 [facility] ([place]) Comment on above: Order Comment: Pre-A dmission Testing Performed By: #### A BOG, ADIFF, A1C, ANEU, BMP, ALB, GFR, ANSG, CBC #### [place] [address] MCHC 34.0 G/dL Normal 33.0-37.0 [facility] ([place]) Comment on above: Order Comment: Pre-A dmission Testing Performed By: #### A BOG, ADIFF, A1C, ANEU, BMP, ALB, GFR, ANSG, CBC #### [place] [address] MCV (RBC) [Entitic vol] 86.1 fL Normal 80.0-94.0 [facility] ([place]) Comment on above: Order Comment: Pre-A dmission Testing Performed By: #### A BOG, ADIFF, A1C, ANEU, BMP, ALB, GFR, ANSG, CBC #### [address] [address] Platelet 189 10 3/mcL Normal 130-400 [facility] ([place]) Comment on above: Order Comment: Pre-A dmission Testing Performed By: #### A BOG, ADIFF, A1C, ANEU, BMP, ALB, GFR, ANSG, CBC #### [address] [address] Platelet mean volume (Bld) [Entitic vol] 9.6 fL Normal 7.4-10.4 [facility] ([place]) Comment on above: Order Comment: Pre-A dmission Testing Performed By: #### A BOG, ADIFF, A1C, ANEU, BMP, ALB, GFR, ANSG, CBC #### [address] [address] RBC 4.37 10 6/mcL Normal 4.20-5.40 [facility] ([place]) Comment on above: Order Comment: Pre-A dmission Testing Performed By: #### A BOG, ADIFF, A1C, ANEU, BMP, ALB, GFR, ANSG, CBC #### [address] [address] WBC 4.3 10 3/mcL Low 4.6-10.8 [facility] ([place]) Comment on above: Order Comment: Pre-A dmission Testing Performed By: #### A BOG, ADIFF, A1C, ANEU, BMP, ALB, GFR, ANSG, CBC #### [address] [address] [address] SHOULDER W/O CONTRAST LEF Ton 10-05-2023 CT SHOULDER W/O CONTRAST LEFT ORIGINAL EXAMINATION: CT OF THE LEFT SHOULDER WITHOUT CONTRAST 10/05/2023 10:35 am TECHNIQUE: CT of the left shoulder was performed without the administration of intravenous contrast. Multiplanar reformatted images are provided for review. Automated exposure control, iterative reconstruction, and/or weight based adjustment of the mA/kV was utilized to reduce the radiation dose to as low as reasonably achievable. COMPARISON: None. HISTORY ORDERING SYSTEM PROVIDED HISTORY: Reason for Exam: primary osteoarthritis left shoulder FINDINGS: Acromioclavicular joint arthrosis noted. Corticated ossicle near the superior margin of the AC joint may relate to old trauma. Advanced glenohumeral joint arthrosis seen with large inferior glenohumeral spurs. Significant joint space loss noted. No significant central bone loss is identified in the glenoid. There is glenoid retroversion. No aggressive bony lesions identified. Glenohumeral effusion noted. No suspicious findings identified in the visualized left lung. Heart is borderline in size but incompletely evaluated. The central pulmonary arteries are large in caliber. The aorta arch is ectatic. IMPRESSION: 1. Advanced glenohumeral joint arthrosis. 2. Acromioclavicular joint arthrosis. 3. Glenoid retroversion Interpreted by: Ashwin Lawrence MD Preliminary Report By: Ashwin Lawrence MD Electronically signed By Ashwin Lawrence MD Dictated Date: 10/05/2023 12:59:42 PM Prelim Date: 10/05/2023 1:05:49 PM Sign Date: 10/05/2023 1:05:49 PM Ordering Provider: PHILLIP CORTEZ Normal [facility]) Gel ABOon 10-05-2023 ABO/Rh Interp Positive Invalid Interpretation Code [facility] ([place]) Comment on above: Performed By: #### A BOG, ADIFF, A1C, ANEU, BMP, ALB, GFR, ANSG, CBC #### [address] [address] Gel ABSon 10-05-2023 Antibody Screen Gel Negative Normal [facility]) Comment on above: Performed By: #### A BOG, ADIFF, A1C, ANEU, BMP, ALB, GFR, ANSG, CBC #### [address] [address] MRSAPCRon 10-05-2023 MRSA (PCR) Not detected Normal Not Detected [facility]) Comment on above: Result Comment: [place] [id number] Performed By: #### M RSAPCR #### [facility] [address] [place] [id number] MRSA PCR Int [facility] ([place]) Comment on above: Result Comment: MRSA DNA not detected by Real-Time Polymerase Chain Reaction (PCR). A negative result may be due to intermittent colonization. Colonization may vary depending on patient treatment, patient status, or exposure to high-risk environments. As with all PCR based in vitro diagnostic tests, extremely low levels of target below the limit of detection of the assay may be detected, but results may not be reproducible. See Below Performed By: #### M RSAPCR #### [facility] [address] [place] [address] XR CHEST 2 VIEWSon 4 XR CHEST 2 VIEWS ORIGINAL EXAMINATION: TWO XRAY VIEWS OF THE CHEST10/05/2023 11:41 am COMPARISON: CT shoulder 10/05/2023. HISTORY: ORDERING SYSTEM PROVIDED HISTORY: Reason for Exam: Pre-admission testing. Preop, no complaints. FINDINGS: Cardiomediastinal silhouette appears borderline enlarged. Atherosclerotic aorta. No focal consolidation, vascular congestion, pleural effusion, or pneumothorax. Mild multilevel degenerative changes of the spine. Right shoulder arthroplasty. Degenerative changes of the left shoulder. IMPRESSION: No acute radiographic findings. I have personally reviewed the images of this examination and agree with the resident's findings and interpretation. Interpreted by: Sudheer Craig MD Preliminary Report By: Linda Neumann Electronically signed By Sudheer Craig MD Dictated Date: 10/05/2023 1:12:28 PM Prelim Date: 10/05/2023 4:23:10 PM Sign Date: 10/05/2023 4:23:10 PM Ordering Provider: PHILLIP CORTEZ [facility] ([place]) SANJUANA DIAG W GENNA RTon 023 SANJUANA DIAG W GENNA RT * * *Final Report* * * DATE OF EXAM: Aug 28 2023 8:08AM CESAR 0629 - SANJUANA DIAG W GENNA RT / PROCEDURE REASON: R92.8-Abnormal mammogram * * * * Physician Interpretation * * * * #[id number] - SANJUANA DIAG W GENNA RT UNILATERAL RIGHT DIGITAL DIAGNOSTIC MAMMOGRAM TOMOSYNTHESIS WITH CAD: 08/28/2023 HISTORY: R92.8-Abnormal Mammogram / Call back/abnormal mamm: Right. RESULT: TECHNIQUE: The study was acquired using full field digital technology and interpreted from soft copy. Digital Breast Tomosynthesis (DBT) images were obtained and used to assist in the interpretation of this examination. Current study was also evaluated with a Computer Aided Detection (CAD). Comparison is made to exams dated: 06/08/2023 mammogram, 04/27/2022 mammogram, 04/14/2021 mammogram, 09/23/2019 mammogram - [facility], 09/10/2019 mammogram - [facility], and 02/13/2018 mammogram - [facility]. There are scattered areas of fibroglandular density in the right breast. The patient presents for re-call evaluation for findings questions screening mammogram dated 06/08/2023 on the RIGHT. Postsurgical changes in the outer aspect of stable. The area in question does not persist on the additional images obtained today felt to be due to overlapping glandular tissue. There are no developing densities or suspicious findings. A coarse benign calcification in the lower inner quadrant is stable. No significant masses, calcifications, or other findings are seen in the breast. IMPRESSION: BENIGN FINDING Negative additional evaluation of the RIGHT breast. The patient can return to annual mammography due in June 2024. There is no mammographic evidence of malignancy. Return to annual mammogram screening schedule is recommended. Liam Hull M.D. FACR, [facility]/penrad:08/28/2023 08:12:21 Process Steward(s): RT Mukesh(R)(M), [facility] Mammogram BI-RADS: 2 Benign finding Multiple national specialty organizations have released breast cancer screening guidelines for women at average risk for developing breast cancer - guidelines that are based on both evidence and opinion, yet differ on when to start and how often to screen for breast cancer. With representation from Breast Imaging, Internal Medicine, Women's Health, Family Medicine, and Medical/Surgical Oncology, the [facility] has carefully reviewed the data and reached the following consensus: 1) All women should engage in shared decision-making with their providers to decide when to start and how often to screen; 2) All women should have the opportunity to start screening mammography at age 40; 3) For women ages 45-55, we recommend annual screening mammograms; 4) For women ages 55 and over, we support both the transition from an annual to a biennial interval if this aligns more with patient's values and preferences, or continuation with annual screening; 5) All women should discuss with their providers when to stop screening mammograms. Buggy Driver: Pedro uLis Transcribe Date/Time: Aug 28 2023 7:43A Dictated by : LIAM HULL MD This examination was interpreted and the report reviewed and electronically signed by: LIAM HULL MD on Aug 28 2023 8:12AM EST [id number] Normal [facility] Absolute lymphocyte countOrd ered By: Too Anna on 08-15-2023 Lymphocytes Auto (Unsp spec) [#/Vol] 2.02 10*3/uL 0.83-4.51 [facility] Basophil percentageOrdered B y: Too Anna on 08-15-2023 Basophils/100 WBC (Bld) 0.3 % 0-1 [facility] Chloride [Moles/Vol] 108 mmol/L 98-107 [facility] Eosinophils/100 WBC (Bld) 2.1 % 0-5 [facility] Glucose [Mass/Vol] 106 mg/dL 74-106 [facility] Comment on above: Fasting Glucose resu lt from 100 to 125 mg/dL suggests IMPAIRED HOMEOSTASIS per A.D.A. criteria. Neutrophils (Bld) [#/Vol] 4.3 10*3/uL 2.0-7.7 [facility] Neutrophils/100 WBC (Bld) 59.1 % 47-70 [facility] Potassium [Moles/Vol] 4.3 mmol/L 3.5-5.1 [facility] Sodium [Moles/Vol] 139 mmol/L 136-145 [facility] WBC (Bld) [#/Vol] 7.2 10*3/uL 4.4-11.0 [facility] Blood erythrocytes count (nu mber/volume)Ordered By: Too Anna on 08-15-2023 RBC (Bld) [#/Vol] 4.02 10*6/uL 4.2-5.4 [facility] Blood hemoglobin measurement (mass/volume)Ordered By: Too Anna on 08-15-2023 Hemoglobin (Bld) [Mass/Vol] 11.4 g/dL 12.0-15.0 [facility] Blood lymphocytes/100 leukoc ytesOrdered By: Too Anna on 08-15-2023 Lymphocytes/100 WBC (Bld) 27.9 % 19-41 [facility] Blood monocytes/100 leukocyt esOrdered By: Too Anna on 08-15-2023 Monocytes/100 WBC (Bld) 10.2 % 0-10 [facility] Blood platelet mean volumeOr dered By: Too Anna on 08-15-2023 Platelet mean volume (Bld) [Entitic vol] 10.5 fL 6.2-12.0 [facility] Determination of erythrocyte mean corpuscular volume (MCV)Ordered By: Too Anna on 08-15-2023 MCV (RBC) [Entitic vol] 91.8 fL 81-99 [facility] Hematocrit Auto (Bld) [Volum e fraction]Ordered By: Too Anna on 08-15-2023 Hematocrit (Bld) [Volume fraction] 36.9 % 37-47 [facility] Laboratory - Chemistry and C hemistry - challengeOrdered By: Too Anna on 08-15-2023 CO2 [Moles/Vol] 26.0 mmol/L 21.0-32.0 [facility] Natriuretic peptide B (Bld) [Mass/Vol] 23.8 pg/mL 0-100 [facility] Urea nitrogen/Creatinine [Mass ratio] 12.0 mg/mg 10-20 [facility] Laboratory - Hematology and Cell countsOrdered By: Too Anna on 08-15-2023 Erythrocyte distribution width (RBC) [Entitic vol] 42.6 fL 35.1-43.9 [facility] Erythrocyte distribution width (RBC) [Ratio] 12.8 % 11.6-14.6 [facility] Immature granulocytes/100 WBC (Bld) 0.400 % 0.0-0.9 [facility] Comment on above: IG% - Immature Granu locytes (promyelocytes, myelocytes and metamyelocytes) > 1% indicates that a LEFT SHIFT is Present. MCH (RBC) [Entitic mass] 28.4 pg 27.0-32.0 [facility] Nucleated RBC/100 WBC (Bld) [Ratio] 0 % 0-5 [facility] MCHC Auto (RBC) [Mass/Vol]Or dered By: Too Anna on 08-15-2023 MCHC (RBC) [Mass/Vol] 30.9 g/dL 32-36 [facility] No Panel InformationOrdered By: Too Anna on 08-15-2023 Estimated GFR (MDRD) Amer 72 mL/min >60 [facility] Comment on above: GFR Calc Estimated GFR (MDRD) Non-Af Amer 59 mL/min >60 [facility] Comment on above: Non- GFR Calc Platelets bldOrdered By: Mejia Anna on 08-15-2023 Platelets (Bld) [#/Vol] 282 10*3/uL 150-450 [facility] Serum or plasma calcium sam urement (mass/volume)Ordered By: Too Anna on 08-15-2023 Calcium [Mass/Vol] 9.2 mg/dL 8.5-10.1 [facility] Serum or plasma creatinine m easurement (mass/volume)Ordered By: Too Anna on 08-15-2023 Creatinine [Mass/Vol] 1.00 mg/dL 0.55-1.02 [facility] Comment on above: The validity of the calculated GFR & GFRAA in patients over 70 years has not been determined. Clinical correlation is essential. Serum or plasma urea nitroge n measurement (mass/volume)Ordered By: Too Anna on 08-15-2023 Urea nitrogen [Mass/Vol] 12 mg/dL 7-18 [facility] Thin prep Papanicolaou smear with manual screeningOrdered By: Too Anna on 08-15-2023 Thin prep Papanicolaou smear with manual screening 5 5-15 [facility] Basophil percentageOrdered B y: Samson Blunt on 06-19-2023 Chloride [Moles/Vol] 105 mmol/L 98-107 [facility] Glucose [Mass/Vol] 155 mg/dL 74-106 [facility] Comment on above: Fasting Glucose resu lt greater than or equal to 126 mg/dL suggests DIABETES MELLITUS per A.D.A. criteria. Potassium [Moles/Vol] 4.0 mmol/L 3.5-5.1 [facility] Sodium [Moles/Vol] 137 mmol/L 136-145 [facility] WBC (Bld) [#/Vol] 8.1 10*3/uL 4.4-11.0 [facility] Blood erythrocytes count (nu mber/volume)Ordered By: Samson Blunt on 06-19-2023 RBC (Bld) [#/Vol] 2.92 10*6/uL 4.2-5.4 [facility] Blood hemoglobin measurement (mass/volume)Ordered By: Samson Blunt on 06-19-2023 Hemoglobin (Bld) [Mass/Vol] 9.1 g/dL 12.0-15.0 [facility] Blood platelet mean volumeOr dered By: Samson Blunt on 06-19-2023 Platelet mean volume (Bld) [Entitic vol] 11.0 fL 6.2-12.0 [facility] Determination of erythrocyte mean corpuscular volume (MCV)Ordered By: Samson Blunt on 06-19-2023 MCV (RBC) [Entitic vol] 94.2 fL 81-99 [facility] Hematocrit Auto (Bld) [Volum e fraction]Ordered By: Samson Blunt on 06-19-2023 Hematocrit (Bld) [Volume fraction] 27.5 % 37-47 [facility] Laboratory - Chemistry and C hemistry - challengeOrdered By: Samson Blunt on 06-19-2023 CO2 [Moles/Vol] 26.0 mmol/L 21.0-32.0 [facility] Urea nitrogen/Creatinine [Mass ratio] 19.0 mg/mg 10-20 [facility] Laboratory - Hematology and Cell countsOrdered By: Samson Blunt on 06-19-2023 Erythrocyte distribution width (RBC) [Entitic vol] 45.1 fL 35.1-43.9 [facility] Erythrocyte distribution width (RBC) [Ratio] 13.2 % 11.6-14.6 [facility] MCH (RBC) [Entitic mass] 31.2 pg 27.0-32.0 [facility] MCHC Auto (RBC) [Mass/Vol]Or dered By: Samson Blunt on 06-19-2023 MCHC (RBC) [Mass/Vol] 33.1 g/dL 32-36 [facility] No Panel InformationOrdered By: Samson Blunt on 06-19-2023 Estimated Creatinine Clearance Calc 62.86 ml/min [facility] Estimated GFR (MDRD) Amer 81 mL/min >60 [facility] Comment on above: GFR Calc Estimated GFR (MDRD) Non-Af Amer 67 mL/min >60 [facility] Comment on above: Non- GFR Calc Platelets bldOrdered By: Jose De Jesus radha Jose Raul on 06-19-2023 Platelets (Bld) [#/Vol] 189 10*3/uL 150-450 [facility] Serum or plasma calcium sam urement (mass/volume)Ordered By: Samson Blunt on 06-19-2023 Calcium [Mass/Vol] 8.4 mg/dL 8.5-10.1 [facility] Serum or plasma creatinine m easurement (mass/volume)Ordered By: Samson Blunt on 06-19-2023 Creatinine [Mass/Vol] 0.90 mg/dL 0.55-1.02 [facility] Comment on above: The validity of the calculated GFR & GFRAA in patients over 70 years has not been determined. Clinical correlation is essential. Serum or plasma urea nitroge n measurement (mass/volume)Ordered By: Samson Blunt on 06-19-2023 Urea nitrogen [Mass/Vol] 17 mg/dL 7-18 [facility] Thin prep Papanicolaou smear with manual screeningOrdered By: Samson Blunt on 06-19-2023 Thin prep Papanicolaou smear with manual screening 6 5-15 [facility] Glucose Glucometer (BldC) [M ass/Vol]Ordered By: Samson Blunt on 06-18-2023 Glucose [Mass/Vol] 175 mg/dL 74-106 [facility] Comment on above: MANAGEMENT OF PATIEN T CARE PER NURSING PROTOCOL SANJUANA SCREENINGon 06-08-2023 [facility] Absolute lymphocyte countOrd ered By: Samson Blunt on 05-17-2023 Lymphocytes Auto (Unsp spec) [#/Vol] 1.89 10*3/uL 0.83-4.51 [facility] Basophil percentageOrdered B y: Samson Blunt on 05-17-2023 Basophils/100 WBC (Bld) 0.5 % 0-1 [facility] Chloride [Moles/Vol] 107 mmol/L 98-107 [facility] Eosinophils/100 WBC (Bld) 2.2 % 0-5 [facility] Glucose [Mass/Vol] 106 mg/dL 74-106 [facility] Comment on above: Fasting Glucose resu lt from 100 to 125 mg/dL suggests IMPAIRED HOMEOSTASIS per A.D.A. criteria. Neutrophils (Bld) [#/Vol] 3.8 10*3/uL 2.0-7.7 [facility] Neutrophils/100 WBC (Bld) 58.5 % 47-70 [facility] Potassium [Moles/Vol] 4.0 mmol/L 3.5-5.1 [facility] Sodium [Moles/Vol] 138 mmol/L 136-145 [facility] WBC (Bld) [#/Vol] 6.5 10*3/uL 4.4-11.0 [facility] Blood erythrocytes count (nu mber/volume)Ordered By: Samson Blunt on 05-17-2023 RBC (Bld) [#/Vol] 4.33 10*6/uL 4.2-5.4 [facility] Blood hemoglobin measurement (mass/volume)Ordered By: Samson Blunt on 05-17-2023 Hemoglobin (Bld) [Mass/Vol] 13.7 g/dL 12.0-15.0 [facility] Blood lymphocytes/100 leukoc ytesOrdered By: Samson Blunt on 05-17-2023 Lymphocytes/100 WBC (Bld) 29.3 % 19-41 [facility] Blood monocytes/100 leukocyt esOrdered By: Samson Blunt on 05-17-2023 Monocytes/100 WBC (Bld) 9.3 % 0-10 [facility] Blood platelet mean volumeOr dered By: Samson Blunt on 05-17-2023 Platelet mean volume (Bld) [Entitic vol] 11.1 fL 6.2-12.0 [facility] Determination of erythrocyte mean corpuscular volume (MCV)Ordered By: Samson Blunt on 05-17-2023 MCV (RBC) [Entitic vol] 93.3 fL 81-99 [facility] Hematocrit Auto (Bld) [Volum e fraction]Ordered By: Samson Blunt on 09-14-2023 Hematocrit (Bld) [Volume fraction] 40.4 % 37-47 [facility] Laboratory - Chemistry and C hemistry - challengeOrdered By: Samson Blunt on 05-17-2023 CO2 [Moles/Vol] 24.0 mmol/L 21.0-32.0 [facility] Urea nitrogen/Creatinine [Mass ratio] 25.0 mg/mg 10-20 [facility] Laboratory - Chemistry and C hemistry - challengeOrdered By: Jose Frias on 05-17-2023 Magnesium [Mass/Vol] 2.3 mg/dL 1.6-2.6 [facility] Laboratory - Hematology and Cell countsOrdered By: Samson Blunt on 05-17-2023 Erythrocyte distribution width (RBC) [Entitic vol] 44.1 fL 35.1-43.9 [facility] Erythrocyte distribution width (RBC) [Ratio] 13.1 % 11.6-14.6 [facility] Immature granulocytes/100 WBC (Bld) 0.200 % 0.0-0.9 [facility] Comment on above: IG% - Immature Granu locytes (promyelocytes, myelocytes and metamyelocytes) > 1% indicates that a LEFT SHIFT is Present. MCH (RBC) [Entitic mass] 31.6 pg 27.0-32.0 [facility] Nucleated RBC/100 WBC (Bld) [Ratio] 0 % 0-5 [facility] MCHC Auto (RBC) [Mass/Vol]Or dered By: Samson Blunt on 05-17-2023 MCHC (RBC) [Mass/Vol] 33.9 g/dL 32-36 [facility] No Panel InformationOrdered By: Samson Blunt on 05-17-2023 Nasal Screen MRSA/MSSA [facility] Estimated GFR (MDRD) Amer 68 mL/min >60 [facility] Comment on above: GFR Calc Estimated GFR (MDRD) Non-Af Amer 57 mL/min >60 [facility] Comment on above: Non- GFR Calc Nasal Screen MRSA/MSSA [facility] Platelets bldOrdered By: Jose De Jesus Blunt on 05-17-2023 Platelets (Bld) [#/Vol] 238 10*3/uL 150-450 [facility] Serum or plasma albumin sam urement (mass/volume)Ordered By: Samson Blunt on 05-17-2023 Albumin [Mass/Vol] 4.1 g/dL 3.2-5.0 [facility] Serum or plasma calcium sam urement (mass/volume)Ordered By: Samson Blunt on 05-17-2023 Calcium [Mass/Vol] 9.6 mg/dL 8.5-10.1 [facility] Serum or plasma creatinine m easurement (mass/volume)Ordered By: Samson Blunt on 05-17-2023 Creatinine [Mass/Vol] 1.04 mg/dL 0.55-1.02 [facility] Comment on above: The validity of the calculated GFR & GFRAA in patients over 70 years has not been determined. Clinical correlation is essential. Serum or plasma urea nitroge n measurement (mass/volume)Ordered By: Samson Blunt on 05-17-2023 Urea nitrogen [Mass/Vol] 26 mg/dL 7-18 [facility] Thin prep Papanicolaou smear with manual screeningOrdered By: Samson Blunt on 05-17-2023 Thin prep Papanicolaou smear with manual screening 7 5-15 [facility] Whole blood hemoglobin A1c/t otal hemoglobin ratio (mass fraction)Ordered By: Samson Blunt on 05-17-2023 HbA1c (Bld) [Mass fraction] 5.5 % 3.8-5.6 [facility] Comment on above: Normal < 5.7 % Predi abetic 5.7 - 6.4 % Diabetic >or= 6.5 % Please note range changes. HbA1c (Bld)on 04-24-2023 Average glucose Estimated from glycated hemoglobin (Bld) [Mass/Vol] 114 mg/dL [facility] HbA1c (Bld) [Mass fraction] 5.6 % 4.3 - 5.6 % [facility] Urinalysis complete panel (U )on 04-24-2023 Bacteria LM.HPF (Urine sed) [#/Area] Few Abnormal None Seen /HPF [facility] Bilirubin Ql (U) Negative Negative [facility] Clarity (Unsp spec) Clear Clear [facility] Color (U) Light Yellow [facility] Epithelial cells LM.HPF (Urine sed) [#/Area] Few [facility] Glucose Test strip (U) [Mass/Vol] Negative Trace, Negative [facility] Hemoglobin Ql (U) 1+ Abnormal Negative, Trace [facility] Hyaline casts (Urine sed) [#/Area] 4-10 /LPF Abnormal 0 /LPF [facility] Ketones Ql (U) Negative Trace, Negative [facility] Leukocyte esterase Test strip Ql (U) Negative Negative, 25 Dyana/uL [facility] Nitrite Ql (U) 2+ Abnormal Negative [facility] pH (U) 6.0 [pH] 5.0 - 8.0 [facility] Protein (U) [Mass/Vol] Trace Trace, Negative [facility] RBC LM.HPF (Urine sed) [#/Area] 0-3 /HPF 0-3 /HPF [facility] Specific gravity (U) [Rel density] 1.018 1.005 - 1.030 [facility] Urobilinogen Ql (U) Negative Negative [facility] WBC LM.HPF (Urine sed) [#/Area] 6-10 /HPF Abnormal 0-5 /HPF [facility] VITAMIN D 25 HYDROXYon 04-24 25-hydroxyvitamin D3 [Mass/Vol] 35.3 ng/mL 31.0 - 80.0 ng/mL [facility] CT CHEST WO IVCONon 03-20-20 [facility] C-REACTIVE PROTEIN (CRP)on 0 02-07-2023 CRP [Mass/Vol] <0.9 mg/dL [facility] ESR Westergren method (Bld) [Velocity]on 02-07-2023 ESR (Bld) [Velocity] 17 mm/h 0 - 20 mm/hr [facility] IGA BLDon 02-07-2023 IgA [Mass/Vol] 235 mg/dL 70 - 400 mg/dL [facility] RHEUMATOID FACTOR BLon 02-07 Rheumatoid factor Qn 29 [IU]/mL High <16 IU/mL [facility] URIC ACID BLOODon 02-07-2023 Urate [Mass/Vol] 7.1 mg/dL High 2.5 - 6.6 mg/dL [facility] Absolute lymphocyte countOrd ered By: Too Anna on 01-09-2023 Lymphocytes Auto (Unsp spec) [#/Vol] 2.06 10*3/uL 0.83-4.51 [facility] Basophil percentageOrdered B y: Too Anna on 01-09-2023 Basophils/100 WBC (Bld) 0.3 % 0-1 [facility] Chloride [Moles/Vol] 105 mmol/L 98-107 [facility] Eosinophils/100 WBC (Bld) 2.0 % 0-5 [facility] Glucose [Mass/Vol] 128 mg/dL 74-106 [facility] Comment on above: Fasting Glucose resu lt greater than or equal to 126 mg/dL suggests DIABETES MELLITUS per A.D.A. criteria. Neutrophils (Bld) [#/Vol] 3.1 10*3/uL 2.0-7.7 [facility] Neutrophils/100 WBC (Bld) 51.7 % 47-70 [facility] Potassium [Moles/Vol] 3.7 mmol/L 3.5-5.1 [facility] Sodium [Moles/Vol] 140 mmol/L 136-145 [facility] WBC (Bld) [#/Vol] 5.9 10*3/uL 4.4-11.0 [facility] Blood erythrocytes count (nu mber/volume)Ordered By: Too Anna on 01-09-2023 RBC (Bld) [#/Vol] 4.26 10*6/uL 4.2-5.4 [facility] Blood hemoglobin measurement (mass/volume)Ordered By: Too Anna on 01-09-2023 Hemoglobin (Bld) [Mass/Vol] 12.9 g/dL 12.0-15.0 [facility] Blood lymphocytes/100 leukoc ytesOrdered By: Too Anna on 01-09-2023 Lymphocytes/100 WBC (Bld) 34.7 % 19-41 [facility] Blood monocytes/100 leukocyt esOrdered By: Too Anna on 01-09-2023 Monocytes/100 WBC (Bld) 10.6 % 0-10 [facility] Blood platelet mean volumeOr dered By: Too Anna on 01-09-2023 Platelet mean volume (Bld) [Entitic vol] 11.0 fL 6.2-12.0 [facility] Determination of erythrocyte mean corpuscular volume (MCV)Ordered By: Too Anna on 01-09-2023 MCV (RBC) [Entitic vol] 92.3 fL 81-99 [facility] Hematocrit Auto (Bld) [Volum e fraction]Ordered By: Too Anna on 01-09-2023 Hematocrit (Bld) [Volume fraction] 39.3 % 37-47 [facility] Laboratory - Chemistry and C hemistry - challengeOrdered By: Too Anna on 01-09-2023 CO2 [Moles/Vol] 26.0 mmol/L 21.0-32.0 [facility] Free T4 [Mass/Vol] 0.89 ng/dL 0.76-1.46 [facility] Natriuretic peptide B (Bld) [Mass/Vol] 36.3 pg/mL 0-100 [facility] Urea nitrogen/Creatinine [Mass ratio] 13.5 mg/mg 10-20 [facility] Laboratory - Hematology and Cell countsOrdered By: Too Anna on 01-09-2023 Erythrocyte distribution width (RBC) [Entitic vol] 42.3 fL 35.1-43.9 [facility] Erythrocyte distribution width (RBC) [Ratio] 12.9 % 11.6-14.6 [facility] Immature granulocytes/100 WBC (Bld) 0.700 % 0.0-0.9 [facility] Comment on above: IG% - Immature Granu locytes (promyelocytes, myelocytes and metamyelocytes) > 1% indicates that a LEFT SHIFT is Present. MCH (RBC) [Entitic mass] 30.3 pg 27.0-32.0 [facility] Nucleated RBC/100 WBC (Bld) [Ratio] 0 % 0-5 [facility] MCHC Auto (RBC) [Mass/Vol]Or dered By: Too Anna on 01-09-2023 MCHC (RBC) [Mass/Vol] 32.8 g/dL 32-36 [facility] No Panel InformationOrdered By: Too Anna on 01-09-2023 Estimated GFR (MDRD) Amer 64 mL/min >60 [facility] Comment on above: GFR Calc Estimated GFR (MDRD) Non-Af Amer 53 mL/min >60 [facility] Comment on above: Non- GFR Calc Free Triiodothyronine (T3) pg/dL 2.8 pg/mL 2.18-3.98 [facility] Thyroid Stimulating Hormone (TSH) 1.95 uIU/mL 0.358-3.74 [facility] Platelets bldOrdered By: Mejia Anna on 01-09-2023 Platelets (Bld) [#/Vol] 236 10*3/uL 150-450 [facility] Serum or plasma calcium sam urement (mass/volume)Ordered By: Too Anna on 01-09-2023 Calcium [Mass/Vol] 9.0 mg/dL 8.5-10.1 [facility] Serum or plasma creatinine m easurement (mass/volume)Ordered By: Too Anna on 01-09-2023 Creatinine [Mass/Vol] 1.11 mg/dL 0.55-1.02 [facility] Comment on above: The validity of the calculated GFR & GFRAA in patients over 70 years has not been determined. Clinical correlation is essential. Serum or plasma urea nitroge n measurement (mass/volume)Ordered By: Too Anna on 01-09-2023 Urea nitrogen [Mass/Vol] 15 mg/dL 7-18 [facility] Thin prep Papanicolaou smear with manual screeningOrdered By: Too Anna on 01-09-2023 Thin prep Papanicolaou smear with manual screening 9 5-15 [facility] CBC W Auto Differential pane l (Bld)on 10-09-2022 Basophils (Bld) [#/Vol] 0.03 10*3/uL <0.11 k/uL [facility] Basophils/100 WBC (Bld) 0.2 % [facility] Differential cell count method Nom (Bld) Auto [facility] Eosinophils (Bld) [#/Vol] 0.06 10*3/uL <0.46 k/uL [facility] Eosinophils/100 WBC (Bld) 0.4 % [facility] Erythrocyte distribution width (RBC) [Ratio] 13.2 % 11.5 - 15.0 % [facility] Hematocrit (Bld) [Volume fraction] 39.8 % 36.0 - 46.0 % [facility] Hemoglobin (Bld) [Mass/Vol] 13.5 g/dL 11.5 - 15.5 g/dL [facility] Immature granulocytes (Bld) [#/Vol] 0.06 10*3/uL <0.10 k/uL [facility] Immature granulocytes/100 WBC (Bld) 0.4 % [facility] Lymphocytes (Bld) [#/Vol] 1.16 10*3/uL 1.00 - 4.00 k/uL [facility] Lymphocytes/100 WBC (Bld) 8.1 % [facility] MCH (RBC) [Entitic mass] 30.4 pg 26.0 - 34.0 pg [facility] MCHC (RBC) [Mass/Vol] 33.9 g/dL 30.5 - 36.0 g/dL [facility] MCV (RBC) [Entitic vol] 89.6 fL 80.0 - 100.0 fL [facility] Monocytes (Bld) [#/Vol] 1.31 10*3/uL High <0.87 k/uL [facility] Monocytes/100 WBC (Bld) 9.2 % [facility] Neutrophils (Bld) [#/Vol] 11.66 10*3/uL High 1.45 - 7.50 k/uL [facility] Neutrophils/100 WBC (Bld) 81.7 % [facility] Nucleated RBC (Bld) [#/Vol] <0.01 k/uL [facility] Nucleated RBC/100 WBC (Bld) [Ratio] 0.0 /100 WBC [facility] Platelet mean volume (Bld) [Entitic vol] 11.4 fL 9.0 - 12.7 fL [facility] Platelets (Bld) [#/Vol] 228 10*3/uL 150 - 400 k/uL [facility] RBC (Bld) [#/Vol] 4.44 10*6/uL 3.90 - 5.2 0 m/uL [facility] WBC (Bld) [#/Vol] 14.28 10*3/uL High 3.70 - 11 .00 k/uL [facility] HbA1c (Bld)on 10-09-2022 Average glucose Estimated from glycated hemoglobin (Bld) [Mass/Vol] 120 mg/dL [facility] HbA1c (Bld) [Mass fraction] 5.8 % High 4.3 - 5.6 % [facility] STREP A MOLECULAR (POC)on Procedural Control Valid [facility] Strep A (POCT) Positive Abnormal Negative [facility] Absolute lymphocyte counton 08-24-2022 Lymphocytes Auto (Unsp spec) [#/Vol] 2.50 10*3/uL 0.83-4.51 [facility] Work Phone: Basophil percentageon 2021 Basophils/100 WBC (Bld) 0.3 % 0-1 [facility] Work Phone: Eosinophils/100 WBC (Bld) 0.1 % 0-5 [facility] Work Phone: Neutrophils (Bld) [#/Vol] 8.0 10*3/uL 2.0-7.7 [facility] Work Phone: Neutrophils/100 WBC (Bld) 66.1 % 47-70 [facility] Work Phone: WBC (Bld) [#/Vol] 12.1 10*3/uL 4.4-11.0 [facility] Work Phone: [phone] Blood erythrocytes count (nu mber/volume)on 08-24-2022 RBC (Bld) [#/Vol] 4.18 10*6/uL 4.2-5.4 [facility] Work Phone: Blood hemoglobin measurement (mass/volume)on 08-24-2022 Hemoglobin (Bld) [Mass/Vol] 12.9 g/dL 12.0-15.0 [facility] Work Phone: Blood lymphocytes/100 leukoc yteson 08-24-2022 Lymphocytes/100 WBC (Bld) 20.7 % 19-41 [facility] Work Phone: Blood monocytes/100 leukocyt eson 08-24-2022 Monocytes/100 WBC (Bld) 10.2 % 0-10 [facility] Work Phone: Blood platelet mean volumeon 08-24-2022 Platelet mean volume (Bld) [Entitic vol] 12.2 fL 6.2-12.0 [facility] Work Phone: Determination of erythrocyte mean corpuscular volume (MCV)on 08-24-2022 MCV (RBC) [Entitic vol] 91.4 fL 81-99 [facility] Work Phone: Erythrocyte sedimentation ra osman 08-24-2022 ESR (Bld) [Velocity] 11 mm/h 0-30 [facility] Work Phone: Hematocrit Auto (Bld) [Volum e fraction]on 08-24-2022 Hematocrit (Bld) [Volume fraction] 38.2 % 37-47 [facility] Work Phone: Laboratory - Hematology and Cell countson 08-24-2022 Erythrocyte distribution width (RBC) [Entitic vol] 43.0 fL 35.1-43.9 [facility] Work Phone: Erythrocyte distribution width (RBC) [Ratio] 13.0 % 11.6-14.6 [facility] Work Phone: Immature granulocytes/100 WBC (Bld) 2.600 % 0.0-0.9 [facility] Work Phone: [phone] Comment on above: IG% - Immature Granu locytes (promyelocytes, myelocytes and metamyelocytes) > 1% indicates that a LEFT SHIFT is Present. MCH (RBC) [Entitic mass] 30.9 pg 27.0-32.0 [facility] Work Phone: Nucleated RBC/100 WBC (Bld) [Ratio] 0 % 0-5 [facility] Work Phone: [phone] MCHC Auto (RBC) [Mass/Vol]on 08-24-2022 MCHC (RBC) [Mass/Vol] 33.8 g/dL 32-36 [facility] Work Phone: Platelets bldon 08-24-2022 Platelets (Bld) [#/Vol] 241 10*3/uL 150-450 [facility] Work Phone: Serum or plasma C reactive p rotein measurement (mass/volume)on 08-24-2022 CRP [Mass/Vol] mg/L 0.0-3.0 [facility] Work Phone: Comment on above: C-Reactive Protein ( CRP) provides useful information for thediagnosis, therapy and monitoring of inflammatory processesand associated diseases. For the evaluation of Relative Riskfor Cardiovascular Disease, a High Sensitivity CRP (HSCRP)should be ordered. Influenza virus A and B RNA and SARS-CoV-2 (COVID-19) N gene panel MICHELLE+probe (Resp)on 08-18-2022 FLUAV RNA MICHELLE+probe Ql (Unsp spec) Negative Negative for Influenza A by RT-PCR [facility] FLUBV RNA MICHELLE+probe Ql (Unsp spec) Negative Negative for Influenza B by RT-PCR [facility] SARS-CoV-2 (COVID-19) RNA MICHELLE+probe Ql (Resp) SARS-CoV-2 (Agent of COVID-19) Not Detected by RT-PCR or equivalent method. Not Detected [facility] UA DIP, URINE (POC)on 2021 BILIRUBIN UA (POCT) Negative Negative [facility] CLARITY UA (POCT) Clear [facility] COLOR UA (POCT) Yellow [facility] GLUCOSE UA (POCT) Negative Negative mg/dL [facility] HEMOGLOBIN/BLOOD UA (POCT) Small Abnormal Negative [facility] KETONE UA (POCT) Negative Negative mg/dL [facility] LEUKOCYTES UA (POCT) Moderate Abnormal Negative [facility] NITRITE UA (POCT) Negative Negative [facility] PH UA (POCT) 6.0 4.5 - 8.0 [facility] Protein Ql (U) Trace Abnormal Negative mg/dL [facility] SPECIFIC GRAVITY UA (POCT) >=1.030 1.005 - 1.030 [facility] UROBILINOGEN UA (POCT) 0.2 E.U./dL Normal E.U./dL [facility] Absolute lymphocyte counton 08-14-2022 Lymphocytes Auto (Unsp spec) [#/Vol] 0.92 10*3/uL 0.83-4.51 [facility] Work Phone: Basophil percentageon 2021 Basophils/100 WBC (Bld) 0.2 % 0-1 [facility] Work Phone: Chloride [Moles/Vol] 105 mmol/L 98-107 [facility] Work Phone: Eosinophils/100 WBC (Bld) 0.6 % 0-5 [facility] Work Phone: Glucose [Mass/Vol] 101 mg/dL 74-106 [facility] Work Phone: Comment on above: Fasting Glucose resu lt from 100 to 125 mg/dL suggests IMPAIRED HOMEOSTASIS per A.D.A. criteria. Neutrophils (Bld) [#/Vol] 2.9 10*3/uL 2.0-7.7 [facility] Work Phone: [phone] Neutrophils/100 WBC (Bld) 59.1 % 47-70 [facility] Work Phone: Potassium [Moles/Vol] 3.7 mmol/L 3.5-5.1 [facility] Work Phone: Sodium [Moles/Vol] 138 mmol/L 136-145 [facility] Work Phone: WBC (Bld) [#/Vol] 4.9 10*3/uL 4.4-11.0 [facility] Work Phone: Blood erythrocytes count (nu mber/volume)on 08-14-2022 RBC (Bld) [#/Vol] 3.87 10*6/uL 4.2-5.4 [facility] Work Phone: Blood hemoglobin measurement (mass/volume)on 08-14-2022 Hemoglobin (Bld) [Mass/Vol] 12.0 g/dL 12.0-15.0 [facility] Work Phone: [phone] Blood lymphocytes/100 leukoc yteson 08-14-2022 Lymphocytes/100 WBC (Bld) 18.6 % 19-41 [facility] Work Phone: Blood monocytes/100 leukocyt eson 08-14-2022 Monocytes/100 WBC (Bld) 21.1 % 0-10 [facility] Work Phone: Blood platelet mean volumeon 08-14-2022 Platelet mean volume (Bld) [Entitic vol] 11.5 fL 6.2-12.0 [facility] Work Phone: Determination of erythrocyte mean corpuscular volume (MCV)on 08-14-2022 MCV (RBC) [Entitic vol] 93.3 fL 81-99 [facility] Work Phone: Hematocrit Auto (Bld) [Volum e fraction]on 08-14-2022 Hematocrit (Bld) [Volume fraction] 36.1 % 37-47 [facility] Work Phone: Laboratory - Chemistry and C hemistry - challengeon 08-14-2022 CO2 [Moles/Vol] 27.0 mmol/L 21.0-32.0 [facility] Work Phone: Urea nitrogen/Creatinine [Mass ratio] 13.9 mg/mg 10-20 [facility] Work Phone: Laboratory - Hematology and Cell countson 08-14-2022 Erythrocyte distribution width (RBC) [Entitic vol] 45.4 fL 35.1-43.9 [facility] Work Phone: Erythrocyte distribution width (RBC) [Ratio] 13.3 % 11.6-14.6 [facility] Work Phone: Immature granulocytes/100 WBC (Bld) 0.400 % 0.0-0.9 [facility] Work Phone: Comment on above: IG% - Immature Granu locytes (promyelocytes, myelocytes and metamyelocytes) > 1% indicates that a LEFT SHIFT is Present. MCH (RBC) [Entitic mass] 31.0 pg 27.0-32.0 [facility] Work Phone: Nucleated RBC/100 WBC (Bld) [Ratio] 0 % 0-5 [facility] Work Phone: MCHC Auto (RBC) [Mass/Vol]on 08-14-2022 MCHC (RBC) [Mass/Vol] 33.2 g/dL 32-36 [facility] Work Phone: No Panel Informationon 08-14 Estimated Creatinine Clearance Calc 56.76 ml/min [facility] Work Phone: Estimated GFR (MDRD) Amer 71 mL/min >60 [facility] Work Phone: Comment on above: GFR Calc Estimated GFR (MDRD) Non-Af Amer 59 mL/min >60 [facility] Work Phone: Comment on above: Non- GFR Calc Platelets bldon 08-14-2022 Platelets (Bld) [#/Vol] 165 10*3/uL 150-450 [facility] Work Phone: Serum or plasma calcium sam urement (mass/volume)on 08-14-2022 Calcium [Mass/Vol] 9.0 mg/dL 8.5-10.1 [facility] Work Phone: Serum or plasma creatinine m easurement (mass/volume)on 08-14-2022 Creatinine [Mass/Vol] 1.01 mg/dL 0.55-1.02 [facility] Work Phone: Comment on above: The validity of the calculated GFR & GFRAA in patients over 70 years has not been determined. Clinical correlation is essential. Serum or plasma urea nitroge n measurement (mass/volume)on 08-14-2022 Urea nitrogen [Mass/Vol] 14 mg/dL 7-18 [facility] Work Phone: Thin prep Papanicolaou smear with manual screeningon 08-14-2022 Thin prep Papanicolaou smear with manual screening 6 5-15 [facility] Work Phone: UA DIP, URINE (POC)on 2021 BILIRUBIN UA (POCT) Negative Negative [facility] CLARITY UA (POCT) Clear [facility] COLOR UA (POCT) Yellow [facility] GLUCOSE UA (POCT) Negative Negative mg/dL [facility] HEMOGLOBIN/BLOOD UA (POCT) Trace-lysed Abnormal Negative [facility] KETONE UA (POCT) Trace Negative mg/dL [facility] (POCT) Trace Abnormal Negative [facility] NITRITE UA (POCT) Negative Negative [facility] PH UA (POCT) 6.0 4.5 - 8.0 [facility] Protein Ql (U) Trace Abnormal Negative mg/dL [facility] SPECIFIC GRAVITY UA (POCT) >=1.030 1.005 - 1.030 [facility] UROBILINOGEN UA (POCT) 0.2 E.U./dL Normal E.U./dL [facility] Basophil percentageon 2021 Chloride [Moles/Vol] 104 mmol/L 98-107 [facility] Work Phone: Glucose [Mass/Vol] 133 mg/dL 74-106 [facility] Work Phone: Comment on above: Fasting Glucose resu lt greater than or equal to 126 mg/dL suggests DIABETES MELLITUS per A.D.A. criteria. Potassium [Moles/Vol] 4.2 mmol/L 3.5-5.1 [facility] Work Phone: Sodium [Moles/Vol] 139 mmol/L 136-145 [facility] Work Phone: WBC (Bld) [#/Vol] 11.9 10*3/uL 4.4-11.0 [facility] Work Phone: Blood erythrocytes count (nu mber/volume)on 06-15-2022 RBC (Bld) [#/Vol] 3.74 10*6/uL 4.2-5.4 [facility] Work Phone: Blood hemoglobin measurement (mass/volume)on 06-15-2022 Hemoglobin (Bld) [Mass/Vol] 11.6 g/dL 12.0-15.0 [facility] Work Phone: Blood platelet mean volumeon 06-15-2022 Platelet mean volume (Bld) [Entitic vol] 11.9 fL 6.2-12.0 [facility] Work Phone: Determination of erythrocyte mean corpuscular volume (MCV)on 06-15-2022 MCV (RBC) [Entitic vol] 95.7 fL 81-99 [facility] Work Phone: Hematocrit Auto (Bld) [Volum e fraction]on 06-15-2022 Hematocrit (Bld) [Volume fraction] 35.8 % 37-47 [facility] Work Phone: Laboratory - Chemistry and C hemistry - challengeon 06-15-2022 CO2 [Moles/Vol] 25.0 mmol/L 21.0-32.0 [facility] Work Phone: Urea nitrogen/Creatinine [Mass ratio] 20.1 mg/mg 10-20 [facility] Work Phone: Laboratory - Hematology and Cell countson 06-15-2022 Erythrocyte distribution width (RBC) [Entitic vol] 42.7 fL 35.1-43.9 [facility] Work Phone: Erythrocyte distribution width (RBC) [Ratio] 12.4 % 11.6-14.6 [facility] Work Phone: MCH (RBC) [Entitic mass] 31.0 pg 27.0-32.0 [facility] Work Phone: MCHC Auto (RBC) [Mass/Vol]on 06-15-2022 MCHC (RBC) [Mass/Vol] 32.4 g/dL 32-36 [facility] Work Phone: No Panel Informationon 06-15 Estimated Creatinine Clearance Calc 63.70 ml/min [facility] Work Phone: Estimated GFR (MDRD) Amer 82 mL/min >60 [facility] Work Phone: Comment on above: GFR Calc Estimated GFR (MDRD) Non-Af Amer 67 mL/min >60 [facility] Work Phone: Comment on above: Non- GFR Calc Platelets bldon 06-15-2022 Platelets (Bld) [#/Vol] 220 10*3/uL 150-450 [facility] Work Phone: Serum or plasma calcium sam urement (mass/volume)on 06-15-2022 Calcium [Mass/Vol] 8.9 mg/dL 8.5-10.1 [facility] Work Phone: Serum or plasma creatinine m easurement (mass/volume)on 06-15-2022 Creatinine [Mass/Vol] 0.90 mg/dL 0.55-1.02 [facility] Work Phone: Comment on above: The validity of the calculated GFR & GFRAA in patients over 70 years has not been determined. Clinical correlation is essential. Serum or plasma urea nitroge n measurement (mass/volume)on 06-15-2022 Urea nitrogen [Mass/Vol] 18 mg/dL 7-18 [facility] Work Phone: Thin prep Papanicolaou smear with manual screeningon 06-15-2022 Thin prep Papanicolaou smear with manual screening 10 5-15 [facility] Work Phone: Glucose Glucometer (BldC) [M ass/Vol]on 06-14-2022 Glucose [Mass/Vol] 102 mg/dL 74-106 [facility] Work Phone: Comment on above: MANAGEMENT OF PATIEN T CARE PER NURSING PROTOCOL Absolute lymphocyte counton 06-09-2022 Lymphocytes Auto (Unsp spec) [#/Vol] 2.16 10*3/uL 0.83-4.51 [facility] Work Phone: Basophil percentageon 2021 Basophils/100 WBC (Bld) 0.3 % 0-1 [facility] Work Phone: Eosinophils/100 WBC (Bld) 2.6 % 0-5 [facility] Work Phone: Neutrophils (Bld) [#/Vol] 3.6 10*3/uL 2.0-7.7 [facility] Work Phone: Neutrophils/100 WBC (Bld) 54.2 % 47-70 [facility] Work Phone: [phone] Blood lymphocytes/100 leukoc yteson 06-09-2022 Lymphocytes/100 WBC (Bld) 32.8 % 19-41 [facility] Work Phone: Blood monocytes/100 leukocyt eson 06-09-2022 Monocytes/100 WBC (Bld) 9.6 % 0-10 [facility] Work Phone: Laboratory - Hematology and Cell countson 06-09-2022 Immature granulocytes/100 WBC (Bld) 0.500 % 0.0-0.9 [facility] Work Phone: Comment on above: IG% - Immature Granu locytes (promyelocytes, myelocytes and metamyelocytes) > 1% indicates that a LEFT SHIFT is Present. Nucleated RBC/100 WBC (Bld) [Ratio] 0 % 0-5 [facility] Work Phone: Basophil percentageon 2021 Bilirubin [Mass/Vol] 0.40 mg/dL 0.20-1.00 [facility] Work Phone: Comment on above: For patients on eltr ombopag therapy, use of Dimension [place] TBIL is not recommended. Protein [Mass/Vol] 7.2 g/dL 6.4-8.2 [facility] Work Phone: Direct bilirubinon 2 Bilirubin.direct [Mass/Vol] 0.09 mg/dL 0.00-0.30 [facility] Work Phone: INR in Blood by Coagulation assayon 06-05-2022 INR Coag (Bld) [Relative time] 0.9 {INR} [facility] Work Phone: Laboratory - Chemistry and C hemistry - challengeon 06-05-2022 ALP [Catalytic activity/Vol] 129 U/L 45-117 [facility] Work Phone: [phone] ALT [Catalytic activity/Vol] 30 U/L 13-56 [facility] Work Phone: Globulin (S) [Mass/Vol] 3.8 g/dL 2.2-4.2 [facility] Work Phone: Magnesium [Mass/Vol] 2.1 mg/dL 1.6-2.6 [facility] Work Phone: Laboratory - Coagulationon 1 aPTT Coag (Bld) [Time] 26.8 s 24.1-36.2 [facility] Work Phone: PT Coag (PPP) [Time] 12.2 s 11.7-14.[address] [facility] Work Phone: Serum or plasma albumin sam urement (mass/volume)on 06-05-2022 Albumin [Mass/Vol] 3.4 g/dL 3.2-5.0 [facility] Work Phone: Thin prep Papanicolaou smear with manual screeningon 06-05-2022 Thin prep Papanicolaou smear with manual screening 21 U/L 15-37 [facility] Work Phone: COLONOSCOPY DIAGNOSTICon [facility] EGD DIAGNOSTICon 05-05-2022 [facility] OXIMETRY WITH AMBULATIONon 0 03-20-2022 [facility] No Panel Informationon 02-[address] [facility] [address] BRAIN WO IVCONon 02-04-20 [facility] CBC W Auto Differential pane l (Bld)on 01-24-2022 Abs Immature Gran 0.05 k/uL <0.10 k/uL [facility] Basophils (Bld) [#/Vol] 0.03 10*3/uL <0.11 k/uL [facility] Basophils/100 WBC (Bld) 0.3 % [facility] Differential cell count method Nom (Bld) Auto [facility] Eosinophils (Bld) [#/Vol] 0.06 10*3/uL <0.46 k/uL [facility] Eosinophils/100 WBC (Bld) 0.6 % [facility] Erythrocyte distribution width (RBC) [Ratio] 13.2 % 11.5 - 15.0 % [facility] Hematocrit (Bld) [Volume fraction] 45.1 % 36.0 - 46.0 % [facility] Hemoglobin (Bld) [Mass/Vol] 14.7 g/dL 11.5 - 15.5 g/dL [facility] Immature Gran % 0.5 % [facility] Lymphocytes (Bld) [#/Vol] 2.36 10*3/uL 1.00 - 4.00 k/uL [facility] Lymphocytes/100 WBC (Bld) 24.2 % [facility] MCH (RBC) [Entitic mass] 30.8 pg 26.0 - 34.0 pg [facility] MCHC (RBC) [Mass/Vol] 32.6 g/dL 30.5 - 36.0 g/dL [facility] MCV (RBC) [Entitic vol] 94.5 fL 80.0 - 100.0 fL [facility] Monocytes (Bld) [#/Vol] 1.04 10*3/uL High <0.87 k/uL [facility] Monocytes/100 WBC (Bld) 10.7 % [facility] Neutrophils (Bld) [#/Vol] 6.22 10*3/uL 1.45 - 7.50 k/uL [facility] Neutrophils/100 WBC (Bld) 63.7 % [facility] Nucleated RBC (Bld) [#/Vol] 10*3/uL <0.01 k/uL [facility] Nucleated RBC/100 WBC (Bld) [Ratio] 0.0 /100 WBC [facility] Platelet mean volume (Bld) [Entitic vol] 11.2 fL 9.0 - 12.7 fL [facility] Platelets (Bld) [#/Vol] 197 10*3/uL 150 - 400 k/uL [facility] RBC (Bld) [#/Vol] 4.77 10*6/uL 3.90 - 5.2 0 m/uL [facility] WBC (Bld) [#/Vol] 9.76 10*3/uL 3.70 - 11. 00 k/uL [facility] Comprehensive metabolic 2000 panelon 01-24-2022 Albumin [Mass/Vol] 4.6 g/dL 3.9 - 4.9 g/dL [facility] ALP [Catalytic activity/Vol] 114 U/L 34 - 123 U/L [facility] ALT [Catalytic activity/Vol] 21 U/L 7 - 38 U/L [facility] Anion gap [Moles/Vol] 11 mmol/L 9 - 18 mmol/L [facility] AST [Catalytic activity/Vol] 20 U/L 13 - 35 U/L [facility] Bilirubin [Mass/Vol] 0.3 mg/dL 0.2 - 1 .3 mg/dL [facility] Calcium [Mass/Vol] 9.8 mg/dL 8.5 - 10. 2 mg/dL [facility] Chloride [Moles/Vol] 104 mmol/L 97 - 10 5 mmol/L [facility] CO2 [Moles/Vol] 25 mmol/L 22 - 30 mmol/L [facility] Creatinine [Mass/Vol] 0.82 mg/dL 0.58 - 0.96 mg/dL [facility] Estimated Glomerular Filtration Rate 80 mL/min/1.73m >=60 mL/min/1.73m [facility] Glucose [Mass/Vol] 101 mg/dL High 74 - 99 mg/dL [facility] Potassium [Moles/Vol] 4.7 mmol/L 3.7 - 5.1 mmol/L [facility] Protein [Mass/Vol] 7.4 g/dL 6.3 - 8.0 g/dL [facility] Sodium [Moles/Vol] 140 mmol/L 136 - 144 mmol/L [facility] Urea nitrogen [Mass/Vol] 29 mg/dL High 7 - 21 mg/dL [facility] LIPID PANEL, NONFASTINGon Cholesterol [Mass/Vol] 262 mg/dL High <200 mg/dL [facility] HDL Cholesterol, Nonfasting 71 mg/dL >39 mg/dL [facility] LDL Cholesterol, Nonfasting 165 mg/dL High <100 mg/dL [facility] LDL/HDL Ratio, Nonfasting 2.32 mg/dL <2.54 mg/dL [facility] Non HDL Cholesterol, Nonfasting 191 mg/dL High <130 mg/dL [facility] Total Chol/HDL Ratio, Nonfasting 3.69 mg/dL <5.10 mg/dL [facility] Triglycerides, Nonfasting 131 mg/dL <150 mg/dL [facility] VLDL Cholesterol, Nonfasting 26 mg/dL <30 mg/dL [facility] T4 FREE/FREE THYROXon 2021 Free T4 [Mass/Vol] 1.1 ng/dL 0.9 - 1.7 ng/dL [facility] TSH BLDon 01-24-2022 TSH Qn 1.920 m[IU]/L 0.270 - 4.200 mIU/L [facility] Absolute lymphocyte counton 08-18-2021 Lymphocytes Auto (Unsp spec) [#/Vol] 2.45 10*3/uL 0.83-4.51 [facility] Work Phone: Basophil percentageon 2020 Chloride [Moles/Vol] 106 mmol/L 98-107 [facility] Work Phone: Eosinophils/100 WBC (Bld) 2.5 % 0-5 [facility] Work Phone: Glucose [Mass/Vol] 92 mg/dL 74-106 [facility] Work Phone: Comment on above: Please note revised GLUCOSE reference range effective 2017. Neutrophils (Bld) [#/Vol] 2.8 10*3/uL 2.0-7.7 [facility] Work Phone: [phone] Potassium [Moles/Vol] 3.8 mmol/L 3.5-5.1 [facility] Work Phone: Sodium [Moles/Vol] 140 mmol/L 136-145 [facility] Work Phone: WBC (Bld) [#/Vol] 6.0 10*3/uL 4.4-11.0 [facility] Work Phone: Blood erythrocytes count (nu mber/volume)on 08-18-2021 RBC (Bld) [#/Vol] 3.92 10*6/uL 4.2-5.4 [facility] Work Phone: Blood hemoglobin measurement (mass/volume)on 08-18-2021 Hemoglobin (Bld) [Mass/Vol] 12.3 g/dL 12.0-15.0 [facility] Work Phone: Blood lymphocytes/100 leukoc yteson 08-18-2021 Lymphocytes/100 WBC (Bld) 41.0 % 19-41 [facility] Work Phone: Blood monocytes/100 leukocyt eson 08-18-2021 Monocytes/100 WBC (Bld) 9.5 % 0-10 [facility] Work Phone: Blood platelet mean volumeon 08-18-2021 Platelet mean volume (Bld) [Entitic vol] 11.0 fL 6.2-12.0 [facility] Work Phone: Determination of erythrocyte mean corpuscular volume (MCV)on 08-18-2021 MCV (RBC) [Entitic vol] 92.6 fL 81-99 [facility] Work Phone: Hematocrit Auto (Bld) [Volum e fraction]on 08-18-2021 Hematocrit (Bld) [Volume fraction] 36.3 % 37-47 [facility] Work Phone: Laboratory - Chemistry and C hemistry - challengeon 08-18-2021 CO2 [Moles/Vol] 26.0 mmol/L 21.0-32.0 [facility] Work Phone: [phone] Natriuretic peptide B (Bld) [Mass/Vol] 31.2 pg/mL 0-100 [facility] Work Phone: Urea nitrogen/Creatinine [Mass ratio] 22.1 mg/mg 10-20 [facility] Work Phone: Laboratory - Hematology and Cell countson 08-18-2021 Basophils/100 WBC (Unsp spec) 0.2 % 0-1 [facility] Work Phone: Erythrocyte distribution width (RBC) [Entitic vol] 43.7 fL 35.1-43.9 [facility] Work Phone: Erythrocyte distribution width (RBC) [Ratio] 12.8 % 11.6-14.6 [facility] Work Phone: Immature granulocytes/100 WBC (Bld) 0.200 % 0.0-0.9 [facility] Work Phone: Comment on above: IG% - Immature Granu locytes (promyelocytes, myelocytes and metamyelocytes) > 1% indicates that a LEFT SHIFT is Present. MCH (RBC) [Entitic mass] 31.4 pg 27.0-32.0 [facility] Work Phone: Neutrophils/100 WBC (Bld) 46.6 % 47-70 [facility] Work Phone: Nucleated RBC/100 WBC (Bld) [Ratio] 0 % 0-5 [facility] Work Phone: MCHC Auto (RBC) [Mass/Vol]on 12-16-2021 MCHC (RBC) [Mass/Vol] 33.9 g/dL 32-36 [facility] Work Phone: No Panel Informationon 08-18 Estimated Creatinine Clearance Calc 69.97 ml/min [facility] Work Phone: Estimated GFR (MDRD) Amer 86 mL/min >60 [facility] Work Phone: Comment on above: GFR Calc Estimated GFR (MDRD) Non-Af Amer 71 mL/min >60 [facility] Work Phone: Comment on above: Non- GFR Calc Troponin I High Sensitivity 6 pg/mL 3.0-54.0 [facility] Work Phone: Comment on above: Please Note: New Earlene t Units and Gender Specific Reference Ranges. For more information see Policy Stat Procedure [place] High Sensitivity Troponin (TNIH) and attachments. Respiratory Panel (PCR) [facility] Work Phone: Platelets bldon 08-18-2021 Platelets (Bld) [#/Vol] 209 10*3/uL 150-450 [facility] Work Phone: Serum or plasma calcium sam urement (mass/volume)on 08-18-2021 Calcium [Mass/Vol] 8.8 mg/dL 8.5-10.1 [facility] Work Phone: Serum or plasma creatinine m easurement (mass/volume)on 08-18-2021 Creatinine [Mass/Vol] 0.86 mg/dL 0.55-1.02 [facility] Work Phone: Comment on above: The validity of the calculated GFR & GFRAA in patients over 70 years has not been determined. Clinical correlation is essential. Serum or plasma urea nitroge n measurement (mass/volume)on 08-18-2021 Urea nitrogen [Mass/Vol] 19 mg/dL 7-18 [facility] Work Phone: Thin prep Papanicolaou smear with manual screeningon 08-18-2021 Thin prep Papanicolaou smear with manual screening 8 5-15 [facility] Work Phone: XR Chest PA and Lateralon IMPRESSION: No acute radiographic abnormality. Left basilar subsegmental atelectasis or fibrosis. Buggy Driver: SANDRA Transcribe Date/Time: May 19 2021 5:50P Dictated by : SUDHEER QUARLES MD This examination was interpreted and the report reviewed and electronically signed by: SUDHEER QUARLES MD on May 19 2021 5:52PM [facility] DIVISION OF RADIOLOGY * * *Final Report* * * DATE OF EXAM: May 19 2021 5:29PM WOX 5291 - XR CHEST 2V FRONTAL/LAT / PROCEDURE REASON: URI, acute * * * * Physician Interpretation * * * * EXAMINATION: CHEST RADIOGRAPH (2 VIEW FRONTAL & LATERAL) CLINICAL HISTORY: URI, acute MQ: XC2_6 EXAM DATE/TIME: 05/19/2021 5:29 PM COMPARISON: 11/01/2017 RESULT: Lines, tubes, and devices: None. Lungs and pleura: No consolidation. No lung mass. No pleural effusion. No pneumothorax. There is a small focus of subsegmental atelectasis in the left lung base. Cardiomediastinal silhouette: Normal cardiomediastinal silhouette. Bones and soft tissues: Mild to moderate hypertrophic anterior endplate spurring in the spine. DIVISION OF RADIOLOGY Provider, [facility] - 05/19/2021 * * *Final Report* * * DATE OF EXAM: May 19 2021 5:29PM WOX 5291 - XR CHEST 2V FRONTAL/LAT / PROCEDURE REASON: URI, acute * * * * Physician Interpretation * * * * EXAMINATION: CHEST RADIOGRAPH (2 VIEW FRONTAL & LATERAL) CLINICAL HISTORY: URI, acute MQ: XC2_6 EXAM DATE/TIME: 05/19/2021 5:29 PM COMPARISON: 11/01/2017 RESULT: Lines, tubes, and devices: None. Lungs and pleura: No consolidation. No lung mass. No pleural effusion. No pneumothorax. There is a small focus of subsegmental atelectasis in the left lung base. Cardiomediastinal silhouette: Normal cardiomediastinal silhouette. Bones and soft tissues: Mild to moderate hypertrophic anterior endplate spurring in the spine. IMPRESSION IMPRESSION: No acute radiographic abnormality. Left basilar subsegmental atelectasis or fibrosis. Buggy Driver: PSCB Transcribe Date/Time: May 19 2021 5:50P Dictated by : SUDHEER QUARLES MD This examination was interpreted and the report reviewed and electronically signed by: SUDHEER QUARLES MD on May 19 2021 5:52PM EST [facility] Radiology Study observation (narrative) [facility] XR Chest PA and LateralOrder ed By: [facility] Provider on 05-19-2021 [facility] Office Visiton 06-22-2017 Dietary management education, guidance, and counseling (procedure) yes Invalid Interpretation Code [facility] Work Phone: [phone] Documentation of current medications (procedure) Done Invalid Interpretation Code [facility] Work Phone: [phone] Fall risk assessment No Invalid Interpretation Code [facility] Work Phone: [phone] Protein mass conc Done Invalid Interpretation Code [facility] Work Phone: [phone] Tobacco smoking status NHIS Former smoker Invalid Interpretation Code [facility] Work Phone: [phone] Tobacco use CPHS Former smoker Invalid Interpretation Code [facility] Work Phone: [phone] Replaced Document: Srikanth Hoff CG Observationson 06-22-2017 EKG QRS axis -3 deg Invalid Interpretation Code [facility] Work Phone: [phone] Interpretation Sinus Bradycardia WI THIN NORMAL LIMITS Invalid Interpretation Code [facility] Work Phone: [phone] P [place] 28 deg Invalid Interpretation Code [facility] Work Phone: [phone] MA Interval 144 ms Invalid Interpretation Code [facility] Work Phone: [phone] Pulse (Heart Rate) 56 /min Invalid Interpretation Code [facility] Work Phone: [phone] QRS Duration 98 ms Invalid Interpretation Code [facility] Work Phone: [phone] QT Interval new path ms Invalid Interpretation Code [facility] Work Phone: [phone] QTc Broussard 431 ms Invalid Interpretation Code [facility] Work Phone: [phone] T [place] 17 deg Invalid Interpretation Code [facility] Work Phone: [phone] [facility] Protein mass conc Done Invalid Interpretation Code [facility] Work Phone: [phone] Tobacco smoking status NHIS Former smoker Invalid Interpretation Code [facility] Work Phone: [phone] Clinical Lists Update: 04-14-2016 Left ventricular Ejection fraction 65 % Invalid Interpretation Code [facility] Work Phone: [phone] Clinical Lists Update: 04-05-2016 Triglyceride mass conc 55 mg/dL Invalid Interpretation Code [facility] Work Phone: [phone] Clinical Lists Update: 01-19-2016 Calcium mass conc 9.4 mg/dL Invalid Interpretation Code [facility] Work Phone: [phone] Chloride molar conc 102 mmol/L Invalid Interpretation Code [facility] Work Phone: [phone] Cholesterol in HDL mass conc 40 mg/dL Invalid Interpretation Code [facility] Work Phone: [phone] Cholesterol in LDL mass conc 132 mg/dL Invalid Interpretation Code [facility] Work Phone: [phone] Cholesterol mass conc 231 mg/dL Invalid Interpretation Code [facility] Work Phone: [phone] CO2 30 mmol/L Invalid Interpretation Code [facility] Work Phone: [phone] CO2 ppres (BldV) 30 mmol/L Invalid Interpretation Code [facility] Work Phone: [phone] Creatinine mass conc 0.82 mg/dL Invalid Interpretation Code [facility] Work Phone: [phone] Glucose mass conc 98 mg/dL Invalid Interpretation Code [facility] Work Phone: [phone] Potassium molar conc 4.4 mmol/L Invalid Interpretation Code [facility] Work Phone: [phone] Sodium molar conc 143 mmol/L Invalid Interpretation Code [facility] Work Phone: [phone] Thyrotropin Qn 0.624 u[iU]/mL Invalid Interpretation Code [facility] Work Phone: [phone] Urea nitrogen mass conc 17 mg/dL Invalid Interpretation Code [facility] Work Phone: [phone] Influenza virus A and B and SARS-CoV-2 (COVID-19) Ag panel - Upper respiratory specim SARS-CoV-2 (COVID-19) RNA MICHELLE+probe Ql (Resp) [facility] Work Phone: No Panel Information Nasal Screen MRSA/MSSA [facility] Work Phone: [facility] Vital Signs Date Time Vital Sign Value Performing Clinician Linnette redding 04-28-2025 12:55-0400 Body temperature 98.01 [degF] Ladarius Mon PA-C Work Phone: [facility] 04-25-2025 08:07-0400 Body mass index (BMI) [Ratio] 32.25 kg/m2 Krislyn Aberegg PA Work Phone: [facility] 04-25-2025 08:07-0400 Body temperature 98.8 [degF] Krislyn Aberegg PA Work Phone: [facility] 04-25-2025 08:07-0400 Body weight 93.4 kg Krislyn Aberegg PA Work Phone: [facility] 04-25-2025 08:07-0400 Diastolic blood pressure 82 mm[Hg] Krislyn Aberegg PA Work Phone: [facility] 04-25-2025 08:07-0400 Heart rate 60 /min Krislyn Aberegg PA Work Phone: [facility] 04-25-2025 08:07-0400 Respiratory rate 18 /min Krislyn Aberegg PA Work Phone: [facility] 04-25-2025 08:07-0400 SaO2% (BldA) [Mass fraction] 98 % Krislyn Aberegg PA Work Phone: [facility] 04-25-2025 08:07-0400 Systolic blood pressure 142 mm[Hg] Krislyn Aberegg PA Work Phone: [facility] 03-30-2025 09:33-0400 Diastolic blood pressure 78 mm[Hg] Ganga Nunez MD Work Phone: [facility] 03-30-2025 09:33-0400 Systolic blood pressure 132 mm[Hg] Ganga Nunez MD Work Phone: [facility] 03-30-2025 09:04-0400 Body mass index (BMI) [Ratio] 32.08 kg/m2 Ganag Nunez MD Work Phone: [facility] 03-30-2025 09:04-0400 Body temperature 99.5 [degF] Ganga Nunez MD Work Phone: [facility] 03-30-2025 09:04-0400 Body weight 92.9 kg Ganga Nunez MD Work Phone: [facility] 03-30-2025 09:04-0400 Heart rate 84 /min Ganga Nunez MD Work Phone: [facility] 03-30-2025 09:04-0400 Respiratory rate 18 /min Ganga Nunez MD Work Phone: [facility] 03-30-2025 09:04-0400 SaO2% (BldA) [Mass fraction] 96 % Ganga Nunez MD Work Phone: [facility] 03-28-2025 12:04-0400 Body mass index (BMI) [Ratio] 32.39 kg/m2 Didi Willams APRN.[employer] Work Phone: [facility] 03-28-2025 12:04-0400 Body temperature 100.51 [degF] Didi Willams APRN.[employer] Work Phone: [facility] 03-28-2025 12:04-0400 Body weight 93.8 kg Didi Willams APRN.[employer] Work Phone: [facility] 03-28-2025 12:04-0400 Diastolic blood pressure 84 mm[Hg] Didi Willams APRN.[employer] Work Phone: [facility] 03-28-2025 12:04-0400 Heart rate 84 /min Didi Willams APRN.[employer] Work Phone: [facility] 03-28-2025 12:04-0400 Respiratory rate 18 /min Didi Lucy ENVIRONMENTAL PROFESSIONAL.[employer] Work Phone: [facility] 03-28-2025 12:04-0400 SaO2% (BldA) [Mass fraction] 96 % Didi Lucy ENVIRONMENTAL PROFESSIONAL.[employer] Work Phone: [facility] 03-28-2025 12:04-0400 Systolic blood pressure 131 mm[Hg] Didi Lucy ENVIRONMENTAL PROFESSIONAL.[employer] Work Phone: [facility] 03-12-2025 08:51-0400 Body mass index (BMI) [Ratio] 32.42 kg/m2 Latrice Linh ENVIRONMENTAL PROFESSIONAL.[employer] Work Phone: [facility] 03-12-2025 08:51-0400 Body weight 93.89 kg Latrice Linh ENVIRONMENTAL PROFESSIONAL.[employer] Work Phone: [facility] 03-12-2025 08:51-0400 Diastolic blood pressure 71 mm[Hg] Latrice Linh ENVIRONMENTAL PROFESSIONAL.[employer] Work Phone: [facility] 03-12-2025 08:51-0400 Heart rate 66 /min Latrice Linh ENVIRONMENTAL PROFESSIONAL.[employer] Work Phone: [facility] 03-12-2025 08:51-0400 Respiratory rate 16 /min Latrice Linh ENVIRONMENTAL PROFESSIONAL.[employer] Work Phone: [facility] 03-12-2025 08:51-0400 Systolic blood pressure 115 mm[Hg] Latrice Linh ENVIRONMENTAL PROFESSIONAL.[employer] Work Phone: [facility] 01-16-2025 08:32-0400 Body mass index (BMI) [Ratio] 32.73 kg/m2 Tyler Click ENVIRONMENTAL PROFESSIONAL.[employer] Work Phone: [facility] 01-16-2025 08:32-0400 Body weight 94.8 kg Tyler Click ENVIRONMENTAL PROFESSIONAL.[employer] Work Phone: [facility] 01-16-2025 08:32-0400 Diastolic blood pressure 71 mm[Hg] Tyler Click ENVIRONMENTAL PROFESSIONAL.[employer] Work Phone: [facility] 01-16-2025 08:32-0400 Heart rate 58 /min Tyler Click ENVIRONMENTAL PROFESSIONAL.[employer] Work Phone: [facility] 01-16-2025 08:32-0400 SaO2% (BldA) [Mass fraction] 95 % Tyler Click ENVIRONMENTAL PROFESSIONAL.[employer] Work Phone: [facility] 01-16-2025 08:32-0400 Systolic blood pressure 112 mm[Hg] Tyler Click ENVIRONMENTAL PROFESSIONAL.[employer] Work Phone: [facility] 12-16-2024 10:12-0400 Body mass index (BMI) [Ratio] 31.92 kg/m2 Sarah John ENVIRONMENTAL PROFESSIONAL.[employer] Work Phone: [facility] 12-16-2024 10:12-0400 Body weight 92.44 kg Sarah John ENVIRONMENTAL PROFESSIONAL.[employer] Work Phone: [facility] 12-16-2024 10:12-0400 Diastolic blood pressure 76 mm[Hg] Sarah John ENVIRONMENTAL PROFESSIONAL.[employer] Work Phone: [facility] 12-16-2024 10:12-0400 Systolic blood pressure 128 mm[Hg] Sarah John ENVIRONMENTAL PROFESSIONAL.[employer] Work Phone: [facility] 12-13-2024 12:17-0400 Body mass index (BMI) [Ratio] 32.11 kg/m2 Ganga Pendlebury ENVIRONMENTAL PROFESSIONAL.[employer] Work Phone: [facility] 12-13-2024 12:17-0400 Body temperature 97.9 [degF] Ganga Pendlebury ENVIRONMENTAL PROFESSIONAL.[employer] Work Phone: [facility] 12-13-2024 12:17-0400 Body weight 93 kg Ganga Pendlebury ENVIRONMENTAL PROFESSIONAL.[employer] Work Phone: [facility] 12-13-2024 12:17-0400 Diastolic blood pressure 87 mm[Hg] Ganga Pendlebury ENVIRONMENTAL PROFESSIONAL.[employer] Work Phone: [facility] 12-13-2024 12:17-0400 Heart rate 82 /min Ganga Lathamweston ENVIRONMENTAL PROFESSIONAL.[employer] Work Phone: [facility] 12-13-2024 12:17-0400 Respiratory rate 22 /min Ganga Choe ENVIRONMENTAL PROFESSIONAL.[employer] Work Phone: [facility] 12-13-2024 12:17-0400 SaO2% (BldA) [Mass fraction] 96 % Ganga Choe ENVIRONMENTAL PROFESSIONAL.[employer] Work Phone: [facility] 12-13-2024 12:17-0400 Systolic blood pressure 138 mm[Hg] Ganga Lathamweston ENVIRONMENTAL PROFESSIONAL.[employer] Work Phone: [facility] 10-28-2024 12:55-0500 Body height 170.2 cm Samson Mcmahon Jr., MD Work Phone: [facility] 10-28-2024 12:55-0500 Body mass index (BMI) [Ratio] 31.01 kg/m2 Samson Mcmahon Jr., MD Work Phone: [facility] 10-28-2024 12:55-0500 Body weight 89.81 kg Samson Mcmahon Jr., MD Work Phone: [facility] 10-28-2024 12:55-0500 Diastolic blood pressure 81 mm[Hg] Samson Mcmahon Jr., MD Work Phone: [facility] 10-28-2024 12:55-0500 Heart rate 72 /min Samson Mcmahon Jr., MD Work Phone: [facility] 10-28-2024 12:55-0500 Systolic blood pressure 164 mm[Hg] Samson Mcmahon Jr., MD Work Phone: [facility] 10-24-2024 13:25-0500 Body height 172.[address] Ganga Nunez MD Work Phone: [facility] 10-24-2024 13:25-0500 Body mass index (BMI) [Ratio] 30.2 kg/m2 Dr. Ganga Nunez MD Work Phone: [facility] 10-24-2024 13:25-0500 Body weight 90.[address] Ganga Nunez MD Work Phone: [facility] 10-13-2024 15:30-0500 Body height 170.2 cm Shilpi Borrero APRN.[facility], DNP Work Phone: [facility] 10-13-2024 15:30-0500 Body mass index (BMI) [Ratio] 31.64 kg/m2 Shilpi Borrero APRN.[employer], DNP Work Phone: [facility] 10-13-2024 15:30-0500 Body weight 91.63 kg Shilpi Borrero APRN.[facility], DNP Work Phone: [facility] 10-13-2024 15:30-0500 Diastolic blood pressure 72 mm[Hg] Shilpi Borrero APRN.[facility], DNP Work Phone: [facility] 10-13-2024 15:30-0500 Heart rate 53 /min Shilpi Borrero APRN.[employer], DNP Work Phone: [facility] 10-13-2024 15:30-0500 Systolic blood pressure 152 mm[Hg] Shilpi Borrero APRN.[facility], DNP Work Phone: [facility] 10-02-2024 13:37-0500 Body mass index (BMI) [Ratio] 30.4 kg/m2 Tessy Rice MD Work Phone: [facility] 10-02-2024 13:37-0500 Body weight 88.91 kg Tessy Rice MD Work Phone: [facility] 10-02-2024 13:37-0500 Diastolic blood pressure 70 mm[Hg] Tessy Rice MD Work Phone: [facility] 10-02-2024 13:37-0500 Systolic blood pressure 118 mm[Hg] Tessy Rice MD Work Phone: [facility] 09-30-2024 11:29-0500 Body height 171 cm Edwina Khoury PA-C Work Phone: [facility] 09-30-2024 11:29-0500 Body mass index (BMI) [Ratio] 30.56 kg/m2 Edwina Khoury PA-C Work Phone: [facility] 09-30-2024 11:29-0500 Body temperature 98.1 [degF] Edwina Khoury PA-C Work Phone: [facility] 09-30-2024 11:29-0500 Body weight 89.36 kg Edwina Khoury PA-C Work Phone: [facility] 09-30-2024 11:29-0500 Diastolic blood pressure 76 mm[Hg] Edwina Khoury PA-C Work Phone: [facility] 09-30-2024 11:29-0500 Heart rate 78 /min Edwina Khoury PA-C Work Phone: [facility] 09-30-2024 11:29-0500 Respiratory rate 18 /min Edwina Khoury PA-C Work Phone: [facility] 09-30-2024 11:29-0500 SaO2% (BldA) [Mass fraction] 94 % Edwina Khoury PA-C Work Phone: [facility] 09-30-2024 11:29-0500 Systolic blood pressure 112 mm[Hg] Edwina Khoury PA-C Work Phone: [facility] 09-28-2024 13:05-0500 Body mass index (BMI) [Ratio] 28.56 kg/m2 Selam Argueta APRN.[employer] Work Phone: [facility] 09-28-2024 13:05-0500 Body temperature 98.71 [degF] Selam Argueta APRN.[employer] Work Phone: [facility] 09-28-2024 13:05-0500 Body weight 89 kg Selam Argueta APRN.[employer] Work Phone: [facility] 09-28-2024 13:05-0500 Diastolic blood pressure 68 mm[Hg] Selam Argueta APRN.[employer] Work Phone: [facility] 09-28-2024 13:05-0500 Heart rate 80 /min Selam Argueta ENVIRONMENTAL PROFESSIONAL.[employer] Work Phone: [facility] 09-28-2024 13:05-0500 Respiratory rate 16 /min Selam Argueta ENVIRONMENTAL PROFESSIONAL.[employer] Work Phone: [facility] 09-28-2024 13:05-0500 SaO2% (BldA) [Mass fraction] 96 % Selam Argueta ENVIRONMENTAL PROFESSIONAL.[employer] Work Phone: [facility] 09-28-2024 13:05-0500 Systolic blood pressure 106 mm[Hg] Selam Argueta ENVIRONMENTAL PROFESSIONAL.[employer] Work Phone: [facility] 09-23-2024 15:00-0500 Body temperature 97.3 [degF] Dr. Ganga Nunez MD Work Phone: 3(228)[phone] [place] [address] 09-23-2024 15:00-0500 Diastolic blood pressure 65 mm[Hg] Dr. Ganga Nunez MD Work Phone: 9(225)[phone] [place] [address] 09-23-2024 15:00-0500 Heart rate 64 /min Dr. Ganga Nunez MD Work Phone: 1(895)745-970926 [place] [address] 09-23-2024 15:00-0500 Respiratory rate 16 /min Dr. Ganga Nunez MD Work Phone: 2(627)112-330326 [place] [address] 09-23-2024 15:00-0500 SaO2% (BldA) [Mass fraction] 93 % Dr. Ganga Nunez MD Work Phone: 2(109)[phone] [place] [address] 09-23-2024 15:00-0500 Systolic blood pressure 103 mm[Hg] Dr. Ganga Nunez MD Work Phone: 7(188)587-750337 [place] [address] 09-23-2024 13:31-0500 Body mass index (BMI) [Ratio] 29.2 kg/m2 Dr. Ganga Nunez MD Work Phone: 9(610)[phone] [place] [address] 09-23-2024 13:31-0500 Body weight 87.[address] Ganga Nunez MD Work Phone: [facility] 09-18-2024 08:57-0500 Body mass index (BMI) [Ratio] 28.97 kg/m2 Kimberly Haury ENVIRONMENTAL PROFESSIONAL.[employer] Work Phone: [facility] 09-18-2024 08:57-0500 Body weight 90.27 kg Kimberly Haury ENVIRONMENTAL PROFESSIONAL.[employer] Work Phone: [facility] 09-18-2024 08:57-0500 Diastolic blood pressure 64 mm[Hg] Kimberly Haury ENVIRONMENTAL PROFESSIONAL.[employer] Work Phone: [facility] 09-18-2024 08:57-0500 Systolic blood pressure 120 mm[Hg] Kimberly Haury ENVIRONMENTAL PROFESSIONAL.[employer] Work Phone: [facility] 09-17-2024 08:51-0500 Body mass index (BMI) [Ratio] 29.11 kg/m2 Tyler Click ENVIRONMENTAL PROFESSIONAL.[employer] Work Phone: [facility] 09-17-2024 08:51-0500 Body weight 90.72 kg Tyler Click ENVIRONMENTAL PROFESSIONAL.[employer] Work Phone: [facility] 09-17-2024 08:51-0500 Diastolic blood pressure 70 mm[Hg] Tyler Click ENVIRONMENTAL PROFESSIONAL.[employer] Work Phone: [facility] 09-17-2024 08:51-0500 Heart rate 72 /min Tyler Click ENVIRONMENTAL PROFESSIONAL.[employer] Work Phone: [facility] 09-17-2024 08:51-0500 Respiratory rate 20 /min Tyler Click ENVIRONMENTAL PROFESSIONAL.[employer] Work Phone: [facility] 09-17-2024 08:51-0500 SaO2% (BldA) [Mass fraction] 95 % Tyler Click ENVIRONMENTAL PROFESSIONAL.[employer] Work Phone: [facility] 09-17-2024 08:51-0500 Systolic blood pressure 120 mm[Hg] Tyler Click ENVIRONMENTAL PROFESSIONAL.[employer] Work Phone: [facility] 09-16-2024 12:02-0500 Body height 176.5 cm Ganga Nunez MD Work Phone: [facility] 09-16-2024 12:02-0500 Body mass index (BMI) [Ratio] 29.11 kg/m2 Ganga Nunez MD Work Phone: [facility] 09-16-2024 12:02-0500 Body temperature 98.49 [degF] Ganga Nunez MD Work Phone: [facility] 09-16-2024 12:02-0500 Body weight 90.72 kg Ganga Nunez MD Work Phone: [facility] 09-16-2024 12:02-0500 Diastolic blood pressure 88 mm[Hg] Ganga Nunez MD Work Phone: [facility] 09-16-2024 12:02-0500 Heart rate 60 /min Ganga Nunez MD Work Phone: [facility] 09-16-2024 12:02-0500 Respiratory rate 18 /min Ganga Nunez MD Work Phone: [facility] 09-16-2024 12:02-0500 Systolic blood pressure 150 mm[Hg] Ganga Nunez MD Work Phone: [facility] 09-12-2024 10:19-0500 Body mass index (BMI) [Ratio] 29.82 kg/m2 Hi Waddell Jr., MD Work Phone: [facility] 09-12-2024 10:19-0500 Body weight 90.27 kg Hi Waddell Jr., MD Work Phone: [facility] 09-12-2024 10:19-0500 Diastolic blood pressure 81 mm[Hg] Hi Waddell Jr., MD Work Phone: [facility] 09-12-2024 10:19-0500 Heart rate 73 /min Hi Waddell Jr., MD Work Phone: [facility] 09-12-2024 10:19-0500 SaO2% (BldA) [Mass fraction] 100 % Hi Waddell Jr., MD Work Phone: [facility] 09-12-2024 10:19-0500 Systolic blood pressure 133 mm[Hg] Hi Waddell Jr., MD Work Phone: [facility] 08-11-2024 09:55-0500 Body height 174 cm Shilpi Borrero APRN.[employer], [facility] Work Phone: [facility] 08-11-2024 09:55-0500 Body mass index (BMI) [Ratio] 29.82 kg/m2 Shilpi Borrero APRN.[employer], [facility] Work Phone: [facility] 08-11-2024 09:55-0500 Body temperature 97.9 [degF] Shilpi Borrero APRN.[facility], [facility] Work Phone: [facility] 08-11-2024 09:55-0500 Body weight 90.27 kg Shilpi Borrero APRN.[employer], [facility] Work Phone: [facility] 08-11-2024 09:55-0500 Diastolic blood pressure 74 mm[Hg] Shilpi Borrero APRN.[employer], [facility] Work Phone: [facility] 08-11-2024 09:55-0500 Heart rate 74 /min Shilpi Borrero APRN.[facility], [facility] Work Phone: [facility] 08-11-2024 09:55-0500 Respiratory rate 14 /min Shilpi Borrero APRN.[facility], [facility] Work Phone: [facility] 08-11-2024 09:55-0500 SaO2% (BldA) [Mass fraction] 97 % Shilpi Borrero APRN.[employer], [facility] Work Phone: [facility] 08-11-2024 09:55-0500 Systolic blood pressure 124 mm[Hg] Shilpi Borrero APRN.[employer], [facility] Work Phone: [facility] 07-28-2024 12:05-0500 Diastolic blood pressure 80 mm[Hg] Kimberly Grajeda APRN.[facility] Work Phone: [facility] 07-28-2024 12:05-0500 Systolic blood pressure 140 mm[Hg] Kimberly Haury ENVIRONMENTAL PROFESSIONAL.[employer] Work Phone: [facility] 07-28-2024 11:43-0500 Body mass index (BMI) [Ratio] 29.91 kg/m2 Kimberly Haury ENVIRONMENTAL PROFESSIONAL.ELEVATOR CONSTRUCTOR [employer] Work Phone: [facility] 07-28-2024 11:43-0500 Body weight 88.91 kg Kimberly Haury ENVIRONMENTAL PROFESSIONAL.ELEVATOR CONSTRUCTOR [employer] Work Phone: [facility] 07-24-2024 15:04-0500 Body mass index (BMI) [Ratio] 30.67 kg/m2 Kimberly Haury ENVIRONMENTAL PROFESSIONAL.ELEVATOR CONSTRUCTOR [employer] Work Phone: [facility] 07-24-2024 15:04-0500 Body weight 91.17 kg Kimberly Haury ENVIRONMENTAL PROFESSIONAL.ELEVATOR CONSTRUCTOR [employer] Work Phone: [facility] 07-24-2024 15:04-0500 Diastolic blood pressure 70 mm[Hg] Kimberly Haury ENVIRONMENTAL PROFESSIONAL.ELEVATOR CONSTRUCTOR [employer] Work Phone: [facility] 07-24-2024 15:04-0500 Systolic blood pressure 128 mm[Hg] Kimberly Haury ENVIRONMENTAL PROFESSIONAL.ELEVATOR CONSTRUCTOR [employer] Work Phone: [facility] 07-17-2024 09:18-0500 Body mass index (BMI) [Ratio] 31.29 kg/m2 Kimebrly Haury ENVIRONMENTAL PROFESSIONAL.ELEVATOR CONSTRUCTOR [employer] Work Phone: [facility] 07-17-2024 09:18-0500 Body weight 92.99 kg Kimberly Haury ENVIRONMENTAL PROFESSIONAL.ELEVATOR CONSTRUCTOR [employer] Work Phone: [facility] 07-17-2024 09:18-0500 Diastolic blood pressure 70 mm[Hg] Kimberly Haury ENVIRONMENTAL PROFESSIONAL.ELEVATOR CONSTRUCTOR [employer] Work Phone: [facility] 07-17-2024 09:18-0500 Systolic blood pressure 126 mm[Hg] Kimberly Haury ENVIRONMENTAL PROFESSIONAL.ELEVATOR CONSTRUCTOR [employer] Work Phone: [facility] 07-15-2024 13:30-0500 Body mass index (BMI) [Ratio] 31.29 kg/m2 Ganga Nunez MD Work Phone: [facility] 07-15-2024 13:30-0500 Body weight 92.99 kg Ganga Nunez MD Work Phone: [facility] 07-15-2024 13:30-0500 Diastolic blood pressure 92 mm[Hg] Ganga Nunez MD Work Phone: [facility] 07-15-2024 13:30-0500 Heart rate 64 /min Ganga Nunez MD Work Phone: [facility] 07-15-2024 13:30-0500 Respiratory rate 16 /min Ganga Nunez MD Work Phone: [facility] 07-15-2024 13:30-0500 Systolic blood pressure 140 mm[Hg] Ganga Nunez MD Work Phone: [facility] 07-08-2024 10:44-0500 Body height 172.4 cm Herber Shamrock PA-C Work Phone: [facility] 07-08-2024 10:44-0500 Body mass index (BMI) [Ratio] 31.13 kg/m2 Herber Derek PA-C Work Phone: [facility] 07-08-2024 10:44-0500 Body temperature 98.2 [degF] Herber Shamrock PA-C Work Phone: [facility] 07-08-2024 10:44-0500 Body weight 92.53 kg Herber Shamrock PA-C Work Phone: [facility] 07-08-2024 10:44-0500 Diastolic blood pressure 75 mm[Hg] Herber Derek PA-C Work Phone: [facility] 07-08-2024 10:44-0500 Heart rate 57 /min Herber Derek PA-C Work Phone: [facility] 07-08-2024 10:44-0500 Systolic blood pressure 139 mm[Hg] Herber Derek PA-C Work Phone: [facility] 07-08-2024 07:16-0500 Body mass index (BMI) [Ratio] 31.54 kg/m2 Chiki Moomaw ENVIRONMENTAL PROFESSIONAL.ELEVATOR CONSTRUCTOR [employer]IC Work Phone: [facility] 07-08-2024 07:16-0500 Body temperature 97.2 [degF] Chiki Moomaw ENVIRONMENTAL PROFESSIONAL.ELEVATOR CONSTRUCTOR [employer]IC Work Phone: [facility] 07-08-2024 07:16-0500 Body weight 93.8 kg Chiki Moomaw ENVIRONMENTAL PROFESSIONAL.ELEVATOR CONSTRUCTOR [employer] Work Phone: [facility] 07-08-2024 07:16-0500 Diastolic blood pressure 66 mm[Hg] Chiki Moomaw ENVIRONMENTAL PROFESSIONAL.ELEVATOR CONSTRUCTOR [employer]IC Work Phone: [facility] 07-08-2024 07:16-0500 Heart rate 68 /min Chiki Moomaw ENVIRONMENTAL PROFESSIONAL.ELEVATOR CONSTRUCTOR [employer]IC Work Phone: [facility] 07-08-2024 07:16-0500 Respiratory rate 16 /min Chiki Moomaw ENVIRONMENTAL PROFESSIONAL.ELEVATOR CONSTRUCTOR [employer]IC Work Phone: [facility] 07-08-2024 07:16-0500 SaO2% (BldA) [Mass fraction] 94 % Chiki Moomaw ENVIRONMENTAL PROFESSIONAL.ELEVATOR CONSTRUCTOR [employer]IC Work Phone: [facility] 07-08-2024 07:16-0500 Systolic blood pressure 122 mm[Hg] Chiki Moomaw ENVIRONMENTAL PROFESSIONAL.ELEVATOR CONSTRUCTOR [employer]IC Work Phone: [facility] 06-17-2024 08:04-0400 Body mass index (BMI) [Ratio] 31.32 kg/m2 Scott Quarles MD Work Phone: [facility] 06-17-2024 08:04-0400 Body temperature 98.4 [degF] Scott Quarles MD Work Phone: [facility] 06-17-2024 08:04-0400 Body weight 93.17 kg Scott Quarles MD Work Phone: [facility] 06-17-2024 08:04-0400 Diastolic blood pressure 84 mm[Hg] Scott Quarles MD Work Phone: [facility] 06-17-2024 08:04-0400 Heart rate 67 /min Scott Quarles MD Work Phone: [facility] 06-17-2024 08:04-0400 SaO2% (BldA) [Mass fraction] 97 % Scott Quarles MD Work Phone: [facility] 06-17-2024 08:04-0400 Systolic blood pressure 150 mm[Hg] Scott Quarles MD Work Phone: [facility] 06-10-2024 10:14-0400 Body height 172.5 cm Pulm Wstr Work Phone: [facility] 06-10-2024 10:14-0400 Body mass index (BMI) [Ratio] 32.18 kg/m2 Pulm Wstr Work Phone: [facility] 06-10-2024 10:14-0400 Body weight 95.71 kg Pulm Wstr Work Phone: [facility] 06-10-2024 10:14-0400 Heart rate 65 /min Pulm Wstr Work Phone: [facility] 06-10-2024 10:14-0400 Respiratory rate 16 /min Pulm Wstr Work Phone: [facility] 06-10-2024 10:14-0400 SaO2% (BldA) [Mass fraction] 98 % Pulm Wstr Work Phone: [facility] 06-02-2024 10:04-0400 Body mass index (BMI) [Ratio] 31.62 kg/m2 Latrice Linh ENVIRONMENTAL PROFESSIONAL.ELEVATOR CONSTRUCTOR [employer]IC Work Phone: [facility] 06-02-2024 10:04-0400 Body weight 95.71 kg Latrice Linh ENVIRONMENTAL PROFESSIONAL.ELEVATOR CONSTRUCTOR [employer]IC Work Phone: [facility] 06-02-2024 10:04-0400 Diastolic blood pressure 83 mm[Hg] Latrice Linh ENVIRONMENTAL PROFESSIONAL.ELEVATOR CONSTRUCTOR [employer] Work Phone: [facility] 06-02-2024 10:04-0400 Heart rate 74 /min Latrice Linh ENVIRONMENTAL PROFESSIONAL.ELEVATOR CONSTRUCTOR [employer]DRA[employer]IC Work Phone: [facility] 06-02-2024 10:04-0400 Respiratory rate 16 /min Latrice Linh ENVIRONMENTAL PROFESSIONAL.ELEVATOR CONSTRUCTOR [employer]IC Work Phone: [facility] 06-02-2024 10:04-0400 SaO2% (BldA) [Mass fraction] 95 % Latrice Linh ENVIRONMENTAL PROFESSIONAL.ELEVATOR CONSTRUCTOR [employer]IC Work Phone: [facility] 06-02-2024 10:04-0400 Systolic blood pressure 146 mm[Hg] Latrice Parker ENVIRONMENTAL PROFESSIONAL.ELEVATOR CONSTRUCTOR [employer]DR[employer]IC Work Phone: [facility] 05-30-2024 10:15-0400 Diastolic blood pressure 7 mm[Hg] Selam Argueta ENVIRONMENTAL PROFESSIONAL.ELEVATOR CONSTRUCTOR [employer]DRA[employer]IC Work Phone: [facility] 05-30-2024 10:15-0400 Systolic blood pressure 155 mm[Hg] Selam Argueta ENVIRONMENTAL PROFESSIONAL.ELEVATOR CONSTRUCTOR [employer]IC Work Phone: [facility] 05-30-2024 09:50-0400 Body mass index (BMI) [Ratio] 31.62 kg/m2 Selam Argueta ENVIRONMENTAL PROFESSIONAL.ELEVATOR CONSTRUCTOR [employer]IC Work Phone: [facility] 05-30-2024 09:50-0400 Body weight 95.71 kg Selam Argueta APRN.ELEVATOR CONSTRUCTOR [employer] Work Phone: [facility] 05-30-2024 09:50-0400 Heart rate 73 /min Selam Argueta APRN.ELEVATOR CONSTRUCTOR [employer] Work Phone: [facility] 05-30-2024 09:50-0400 Respiratory rate 14 /min Selam Argueta APRN.ELEVATOR CONSTRUCTOR [employer]IC Work Phone: [facility] 05-26-2024 15:11-0400 Body height 174 cm Reginaldo Burnett MD Work Phone: [facility] 05-26-2024 15:11-0400 Body mass index (BMI) [Ratio] 31.68 kg/m2 Reginaldo Burnett MD Work Phone: [facility] 05-26-2024 15:11-0400 Body temperature 98.71 [degF] Reginaldo Burnett MD Work Phone: [facility] 05-26-2024 15:11-0400 Body weight 95.89 kg Reginaldo Burnett MD Work Phone: [facility] 05-26-2024 15:11-0400 Diastolic blood pressure 80 mm[Hg] Reginaldo Burnett MD Work Phone: [facility] 05-26-2024 15:11-0400 Heart rate 68 /min Reginaldo Burnett MD Work Phone: [facility] 05-26-2024 15:11-0400 Systolic blood pressure 151 mm[Hg] Reginaldo Burnett MD Work Phone: [facility] 05-13-2024 07:12-0400 Body mass index (BMI) [Ratio] 31.35 kg/m2 Shiloh Paez APRN.ELEVATOR CONSTRUCTOR HYDRA[employer]IC Work Phone: [facility] 05-13-2024 07:12-0400 Body temperature 96.91 [degF] Shiloh Paez APRN.ELEVATOR CONSTRUCTOR [employer]DRA[employer]IC Work Phone: [facility] 05-13-2024 07:12-0400 Body weight 96.3 kg Shiloh Paez APRN.ELEVATOR CONSTRUCTOR HYDRA[employer]IC Work Phone: [facility] 05-13-2024 07:12-0400 Diastolic blood pressure 80 mm[Hg] Shiloh Paez APRN.ELEVATOR CONSTRUCTOR [employer]DR[employer]IC Work Phone: [facility] 05-13-2024 07:12-0400 Heart rate 82 /min Shiloh Paez APRN.ELEVATOR CONSTRUCTOR HYDRA[employer]IC Work Phone: [facility] 05-13-2024 07:12-0400 Respiratory rate 16 /min Shiloh Paez APRN.ELEVATOR CONSTRUCTOR [employer]DRA[employer]IC Work Phone: [facility] 05-13-2024 07:12-0400 SaO2% (BldA) [Mass fraction] 96 % Shiloh Paez APRN.ELEVATOR CONSTRUCTOR HYDRA[employer]IC Work Phone: [facility] 05-13-2024 07:12-0400 Systolic blood pressure 118 mm[Hg] Shiloh Paez ENVIRONMENTAL PROFESSIONAL.ELEVATOR CONSTRUCTOR [employer]DRA[employer]IC Work Phone: [facility] 03-25-2024 14:54-0400 Body mass index (BMI) [Ratio] 31.31 kg/m2 Selam Argueta ENVIRONMENTAL PROFESSIONAL.ELEVATOR CONSTRUCTOR [employer]IC Work Phone: [facility] 03-25-2024 14:54-0400 Body weight 96.16 kg Selam Argueta ENVIRONMENTAL PROFESSIONAL.ELEVATOR CONSTRUCTOR HYDRA[employer]IC Work Phone: [facility] 03-25-2024 14:54-0400 Diastolic blood pressure 72 mm[Hg] Selam Argueta ENVIRONMENTAL PROFESSIONAL.ELEVATOR CONSTRUCTOR [employer]DRA[employer]IC Work Phone: [facility] 03-25-2024 14:54-0400 Heart rate 71 /min Selam Argueta ENVIRONMENTAL PROFESSIONAL.ELEVATOR CONSTRUCTOR HYDRA[employer]IC Work Phone: [facility] 03-25-2024 14:54-0400 Respiratory rate 16 /min Selam Argueta ENVIRONMENTAL PROFESSIONAL.ELEVATOR CONSTRUCTOR HYDRA[employer]IC Work Phone: [facility] 03-25-2024 14:54-0400 Systolic blood pressure 120 mm[Hg] Selam Argueta ENVIRONMENTAL PROFESSIONAL.ELEVATOR CONSTRUCTOR [employer]DRA[employer]IC Work Phone: [facility] 03-13-2024 06:59-0400 Body mass index (BMI) [Ratio] 31.01 kg/m2 Edwina Khoury PA-C Work Phone: [facility] 03-13-2024 06:59-0400 Body temperature 97.11 [degF] Edwina Khoury PA-C Work Phone: [facility] 03-13-2024 06:59-0400 Body weight 95.25 kg Edwina Khoury PA-C Work Phone: [facility] 03-13-2024 06:59-0400 Diastolic blood pressure 81 mm[Hg] Edwina Khoury PA-C Work Phone: [facility] 03-13-2024 06:59-0400 Heart rate 86 /min Edwina Khoury PA-C Work Phone: [facility] 03-13-2024 06:59-0400 Respiratory rate 18 /min Edwina Khoury PA-C Work Phone: [facility] 03-13-2024 06:59-0400 SaO2% (BldA) [Mass fraction] 97 % Edwina TELLO-C Work Phone: [facility] 03-13-2024 06:59-0400 Systolic blood pressure 126 mm[Hg] Edwina Khoury PA-C Work Phone: [facility] 02-25-2024 10:21-0400 Body mass index (BMI) [Ratio] 30.75 kg/m2 Latrice Linh ENVIRONMENTAL PROFESSIONAL.ELEVATOR CONSTRUCTOR HYDRA[employer]IC Work Phone: [facility] 02-25-2024 10:21-0400 Body weight 94.44 kg Latrice Linh ENVIRONMENTAL PROFESSIONAL.ELEVATOR CONSTRUCTOR HYDRA[employer]IC Work Phone: [facility] 02-25-2024 10:21-0400 Diastolic blood pressure 76 mm[Hg] Latrice Linh ENVIRONMENTAL PROFESSIONAL.ELEVATOR CONSTRUCTOR HYDRA[employer]IC Work Phone: [facility] 02-25-2024 10:21-0400 Heart rate 60 /min Latrice Linh ENVIRONMENTAL PROFESSIONAL.ELEVATOR CONSTRUCTOR HYDRA[employer]IC Work Phone: [facility] 02-25-2024 10:21-0400 Respiratory rate 18 /min Latrice Linh ENVIRONMENTAL PROFESSIONAL.ELEVATOR CONSTRUCTOR HYDRA[employer]IC Work Phone: [facility] 02-25-2024 10:21-0400 SaO2% (BldA) [Mass fraction] 96 % Latrice Linh ENVIRONMENTAL PROFESSIONAL.ELEVATOR CONSTRUCTOR HYDRA[employer]IC Work Phone: [facility] 02-25-2024 10:21-0400 Systolic blood pressure 129 mm[Hg] Latrice Linh ENVIRONMENTAL PROFESSIONAL.ELEVATOR CONSTRUCTOR [employer]DRA[employer]IC Work Phone: [facility] 02-14-2024 11:22-0400 Diastolic blood pressure 80 mm[Hg] Ganga Nunez MD Work Phone: [facility] 02-14-2024 11:22-0400 Systolic blood pressure 142 mm[Hg] Ganga Nunez MD Work Phone: [facility] 02-14-2024 10:50-0400 Body height 175.3 cm Ganga Nunez MD Work Phone: [facility] 02-14-2024 10:50-0400 Body mass index (BMI) [Ratio] 31.16 kg/m2 Ganga Nunez MD Work Phone: [facility] 02-14-2024 10:50-0400 Body weight 95.71 kg Ganga Nunez MD Work Phone: [facility] 02-14-2024 10:50-0400 Heart rate 70 /min Ganga Nunez MD Work Phone: [facility] 01-03-2024 15:55-0400 Body mass index (BMI) [Ratio] 30.86 kg/m2 Krislyn Aberegg PA Work Phone: [facility] 01-03-2024 15:55-0400 Body temperature 97.9 [degF] Krislyn Aberegg PA Work Phone: [facility] 01-03-2024 15:55-0400 Body weight 94.8 kg Krislyn Aberegg PA Work Phone: [facility] 01-03-2024 15:55-0400 Diastolic blood pressure 78 mm[Hg] Krislyn Aberegg PA Work Phone: [facility] 01-03-2024 15:55-0400 Heart rate 64 /min Krislyn Aberegg PA Work Phone: [facility] 01-03-2024 15:55-0400 Respiratory rate 16 /min Krislyn Aberegg PA Work Phone: [facility] 01-03-2024 15:55-0400 SaO2% (BldA) [Mass fraction] 98 % Krislyn Aberegg PA Work Phone: [facility] 01-03-2024 15:55-0400 Systolic blood pressure 144 mm[Hg] Krislyn Aberegg PA Work Phone: [facility] 12-10-2023 13:32-0400 Body temperature 98.8 [degF] Barbra Beltran ENVIRONMENTAL PROFESSIONAL.ELEVATOR CONSTRUCTOR [employer]IC Work Phone: [facility] 12-10-2023 13:32-0400 Body weight 94.2 kg Barbra Beltran ENVIRONMENTAL PROFESSIONAL.ELEVATOR CONSTRUCTOR [employer]IC Work Phone: [facility] 12-10-2023 13:32-0400 Diastolic blood pressure 78 mm[Hg] Barbra Beltran ENVIRONMENTAL PROFESSIONAL.ELEVATOR CONSTRUCTOR [employer]IC Work Phone: [facility] 12-10-2023 13:32-0400 Heart rate 75 /min Barbra Beltran ENVIRONMENTAL PROFESSIONAL.ELEVATOR CONSTRUCTOR HY[employer]IC Work Phone: [facility] 12-10-2023 13:32-0400 Respiratory rate 22 /min Barbra Beltran ENVIRONMENTAL PROFESSIONAL.ELEVATOR CONSTRUCTOR [employer]DRA[employer]IC Work Phone: [facility] 12-10-2023 13:32-0400 SaO2% (BldA) [Mass fraction] 92 % Barbra Beltran ENVIRONMENTAL PROFESSIONAL.ELEVATOR CONSTRUCTOR [employer]IC Work Phone: [facility] 12-10-2023 13:32-0400 Systolic blood pressure 120 mm[Hg] Barbra Beltran ENVIRONMENTAL PROFESSIONAL.ELEVATOR CONSTRUCTOR [employer]IC Work Phone: [facility] 10-31-2023 13:31-0500 Body temperature 97.52 [degF] DR PHILLIP CORTEZ MD [facility] 10-31-2023 13:31-0500 Diastolic Blood Pressure Non-Invasive 77 mm[Hg] DR PHILLIP CORTEZ MD [facility] 10-31-2023 13:31-0500 Heart rate 62 /min DR PHILLIP CORTEZ MD [facility] 10-31-2023 13:31-0500 Reason For Taking VItal Signs DR PHILLIP CORTEZ MD [facility] 10-31-2023 13:31-0500 Respiratory rate 16 /min DR PHILLIP CORTEZ MD [facility] 10-31-2023 13:31-0500 Systolic Blood Pressure Non-Invasive 135 mm[Hg] DR PHILLIP CORTEZ MD [facility] 10-31-2023 09:20-0500 Heart rate 63 /min DR PHILLIP CORTEZ MD [facility] 10-31-2023 08:13-0500 Body temperature 97.88 [degF] DR PHILLIP CORTEZ MD [facility] 10-31-2023 08:13-0500 Diastolic Blood Pressure Non-Invasive 67 mm[Hg] DR PHILLIP CORTEZ MD [facility] 10-31-2023 08:13-0500 Heart rate 63 /min DR PHILLIP CORTEZ MD [facility] 10-31-2023 08:13-0500 Reason For Taking VItal Signs DR PHILLIP CORTEZ MD [facility] 10-31-2023 08:13-0500 Respiratory rate 16 /min DR PHILLIP CORTEZ MD [facility] 10-31-2023 08:13-0500 Systolic Blood Pressure Non-Invasive 141 mm[Hg] DR PHILLIP CORTEZ MD [facility] 10-31-2023 04:48-0500 Body temperature 97.7 [degF] DR PHILLIP CORTEZ MD [facility] 10-31-2023 04:48-0500 Diastolic Blood Pressure Non-Invasive 91 mm[Hg] DR PHILLIP CORTEZ MD [facility] 10-31-2023 04:48-0500 Reason For Taking VItal Signs DR PHILLIP CORTZE MD [facility] 10-31-2023 04:48-0500 Respiratory rate 16 /min DR PHILLIP CORTEZ MD [facility] 10-31-2023 04:48-0500 Systolic Blood Pressure Non-Invasive 131 mm[Hg] DR PHILLIP CORTEZ MD [facility] 10-30-2023 15:48-0500 Heart rate 77 /min DR PHILLIP CORTEZ MD [facility] 10-30-2023 12:00-0500 Heart rate 62 /min DR PHILLIP CORTEZ MD [facility] 10-30-2023 11:47-0500 Heart rate 60 /min DR PHILLIP CORTEZ MD [facility] 10-30-2023 11:33-0500 Body height 172.[address] PHILLIP CORTEZ MD [facility] 10-30-2023 11:33-0500 Body weight [address] PHILLIP CORTEZ MD [facility] 10-30-2023 11:33-0500 Body weight 30.51 kg/m2 DR PHILLIP CORTEZ MD [facility] 10-30-2023 09:55-0500 Body temperature 96.98 [degF] DR PHILLIP CORTEZ MD [facility] 10-30-2023 09:50-0500 Respiratory Rate - Anes 0 br/min DR PHILLIP CORTEZ MD [facility] 10-30-2023 09:45-0500 Respiratory Rate - Anes 6 br/min DR PHILLIP CORTEZ MD [facility] 10-30-2023 09:40-0500 Respiratory Rate - Anes 6 br/min DR PHILLIP CORTZE MD [facility] 10-30-2023 09:35-0500 Body temperature 96.21 [degF] DR PHILLIP CORTEZ MD [facility] 10-30-2023 09:30-0500 Body temperature 96.19 [degF] DR PHILLIP CORTEZ MD [facility] 10-30-2023 09:25-0500 Body temperature 96.13 [degF] DR PHILLIP CORTEZ MD [facility] 10-30-2023 07:29-0500 Heart rate 56 /min DR PHILLIP CORTEZ MD [facility] 10-30-2023 07:20-0500 Heart rate 67 /min DR PHILLIP CORTEZ MD [facility] 10-30-2023 07:09-0500 Body weight 30.51 kg/m2 DR PHILLIP CORTEZ MD [facility] 10-30-2023 06:52-0500 Body height 172.[address] PHILLIP CORTEZ MD [facility] 10-30-2023 06:52-0500 Body temperature 96.98 [degF] DR PHILLIP CORTEZ MD [facility] 10-30-2023 06:52-0500 Body weight [address] PHILLIP CORTEZ MD [facility] 10-30-2023 06:52-0500 Heart rate 66 /min DR PHILLIP CORTEZ MD [facility] 10-10-2023 09:39-0500 Diastolic blood pressure 82 mm[Hg] Ganga Nunez MD Work Phone: [facility] 10-10-2023 09:39-0500 Systolic blood pressure 130 mm[Hg] Ganga Nunez MD Work Phone: [facility] 10-10-2023 09:10-0500 Body weight 90.27 kg Ganga Nunez MD Work Phone: [facility] 10-10-2023 09:10-0500 Heart rate 70 /min Ganga Nunez MD Work Phone: [facility] 10-10-2023 09:10-0500 Respiratory rate 16 /min Ganga Nunez MD Work Phone: [facility] 08-15-2023 10:01-0500 Body height 172.[address] Ganga Nunez Work Phone: [phone] [place] [address] 08-15-2023 10:01-0500 Body mass index (BMI) [Ratio] 30.4 kg/m2 Dr. Ganga Nunez Work Phone: [facility] 08-15-2023 10:01-0500 Body weight 90.[address] Ganga Nunez Work Phone: [facility] 08-15-2023 10:01-0500 Diastolic blood pressure 70 mm[Hg] Dr. Ganga Nunez Work Phone: [facility] 08-15-2023 10:01-0500 Heart rate 67 /min Dr. Ganga Nunez Work Phone: [phone] [place] [address] 08-15-2023 10:01-0500 Respiratory rate 16 /min Dr. Ganga Nunez Work Phone: [facility] 08-15-2023 10:01-0500 Systolic blood pressure 116 mm[Hg] Dr. Ganga Nunez Work Phone: [phone] [place] [address] 08-10-2023 08:56-0500 Body temperature 99.7 [degF] Ganga Ariaschristopher ENVIRONMENTAL PROFESSIONAL.ELEVATOR CONSTRUCTOR [employer] Work Phone: [facility] 08-10-2023 08:56-0500 Body weight 89.63 kg Ganga Lathamweston ENVIRONMENTAL PROFESSIONAL.ELEVATOR CONSTRUCTOR [employer] Work Phone: [facility] 08-10-2023 08:56-0500 Diastolic blood pressure 78 mm[Hg] Ganga Lathamweston ENVIRONMENTAL PROFESSIONAL.ELEVATOR CONSTRUCTOR [employer] Work Phone: [facility] 08-10-2023 08:56-0500 Heart rate 74 /min Ganga Lathamweston ENVIRONMENTAL PROFESSIONAL.ELEVATOR CONSTRUCTOR [employer] Work Phone: [facility] 08-10-2023 08:56-0500 Respiratory rate 18 /min Ganga Lathamweston ENVIRONMENTAL PROFESSIONAL.ELEVATOR CONSTRUCTOR [employer] Work Phone: [facility] 08-10-2023 08:56-0500 SaO2% (BldA) [Mass fraction] 95 % Gangailana Lathamweston ENVIRONMENTAL PROFESSIONAL.ELEVATOR CONSTRUCTOR [employer] Work Phone: [facility] 08-10-2023 08:56-0500 Systolic blood pressure 122 mm[Hg] Ganga Lathamweston ENVIRONMENTAL PROFESSIONAL.ELEVATOR CONSTRUCTOR [employer] Work Phone: [facility] 06-19-2023 13:42-0400 Body temperature 99 [degF] Dr. Ganga Nunez Work Phone: [facility] 06-19-2023 13:42-0400 Diastolic blood pressure 62 mm[Hg] Dr. Ganga Nunez Work Phone: [facility] [facility] 06-19-2023 13:42-0400 Heart rate 85 /min Dr. Ganga Nunez Work Phone: [facility] 06-19-2023 13:42-0400 Respiratory rate 18 /min Dr. Ganga Nunez Work Phone: [facility] 06-19-2023 13:42-0400 SaO2% (BldA) [Mass fraction] 98 % Dr. Ganga Nunez Work Phone: [facility] 06-19-2023 13:42-0400 Systolic blood pressure 116 mm[Hg] Dr. Ganga Nunez Work Phone: [facility] 06-18-2023 16:40-0400 Inhaled oxygen flow rate 2 L/min Dr. Ganga Nunez Work Phone: [facility] 06-18-2023 13:34-0400 Body height 172.[address] Ganga Nunez Work Phone: [facility] 06-18-2023 13:34-0400 Body mass index (BMI) [Ratio] 30.2 kg/m2 Dr. Ganga Nunez Work Phone: [facility] 06-18-2023 13:34-0400 Body weight 90.[address] Ganga Nunez Work Phone: [facility] 05-28-2023 08:13-0400 Body height 175.3 cm Reginaldo Burnett MD Work Phone: [facility] 05-28-2023 08:13-0400 Body temperature 98.01 [degF] Reginaldo Burnett MD Work Phone: [facility] 05-28-2023 08:13-0400 Body weight 88.45 kg Reginaldo Burnett MD Work Phone: [facility] 05-28-2023 08:13-0400 Diastolic blood pressure 68 mm[Hg] Reginaldo Burnett MD Work Phone: [facility] 05-28-2023 08:13-0400 Heart rate 56 /min Reginaldo Burnett MD Work Phone: [facility] 05-28-2023 08:13-0400 Systolic blood pressure 139 mm[Hg] Reginaldo Burnett MD Work Phone: [facility] 05-24-2023 12:54-0400 Body weight 86.64 kg Selam Argueta APRN.E[employer]ATOR [employer] Work Phone: [facility] 05-24-2023 12:54-0400 Diastolic blood pressure 84 mm[Hg] Selam Knoble ENVIRONMENTAL PROFESSIONAL.E[employer]ATOR [employer] Work Phone: [facility] 05-24-2023 12:54-0400 Heart rate 66 /min Selam Argueta ENVIRONMENTAL PROFESSIONAL.ELEVATOR CON[employer] Work Phone: [facility] 05-24-2023 12:54-0400 Respiratory rate 18 /min Selam Argueta ENVIRONMENTAL PROFESSIONAL.ELEVATOR [employer] Work Phone: [facility] 05-24-2023 12:54-0400 Systolic blood pressure 136 mm[Hg] Selam Argueta ENVIRONMENTAL PROFESSIONAL.ELEVATOR CON[employer] Work Phone: [facility] 04-24-2023 08:40-0400 Diastolic blood pressure 82 mm[Hg] Ganga Nunez MD Work Phone: [facility] 04-24-2023 08:40-0400 Systolic blood pressure 146 mm[Hg] Ganga Nunez MD Work Phone: [facility] 04-24-2023 07:56-0400 Body height 175.3 cm Ganga Nunez MD Work Phone: [facility] 04-24-2023 07:56-0400 Body weight 88.91 kg Ganga Nunez MD Work Phone: [facility] 04-24-2023 07:56-0400 Heart rate 92 /min Ganga Nunez MD Work Phone: [facility] 04-24-2023 07:56-0400 Respiratory rate 18 /min Ganga Nunez MD Work Phone: [facility] 04-04-2023 15:48-0400 Body height 175.3 cm Reginaldo Burnett MD Work Phone: [facility] 04-04-2023 15:48-0400 Body temperature 98.2 [degF] Reginaldo Burnett MD Work Phone: [facility] 04-04-2023 15:48-0400 Body weight 88.45 kg Reginaldo Burnett MD Work Phone: [facility] 04-04-2023 15:48-0400 Diastolic blood pressure 99 mm[Hg] Reginaldo Burnett MD Work Phone: [facility] 04-04-2023 15:48-0400 Heart rate 101 /min Reginaldo Burnett MD Work Phone: [facility] 04-04-2023 15:48-0400 Systolic blood pressure 160 mm[Hg] Reginaldo Burnett MD Work Phone: [facility] 03-26-2023 09:14-0400 Body weight 87.54 kg Tessy Moy PA-C Work Phone: [facility] 02-07-2023 08:26-0400 Body height 175.3 cm Reginaldo Burnett MD Work Phone: [facility] 02-07-2023 08:26-0400 Body temperature 98.29 [degF] Reginaldo Burnett MD Work Phone: [facility] 02-07-2023 08:26-0400 Body weight 86.18 kg Reginaldo Burnett MD Work Phone: [facility] 02-07-2023 08:26-0400 Diastolic blood pressure 89 mm[Hg] Reginaldo Burnett MD Work Phone: [facility] 02-07-2023 08:26-0400 Heart rate 63 /min Reginaldo Burnett MD Work Phone: [facility] 02-07-2023 08:26-0400 Systolic blood pressure 155 mm[Hg] Reginaldo Burnett MD Work Phone: [facility] 01-09-2023 14:07-0400 Body height 172.[address] Ganga Nunez Work Phone: [facility] 01-09-2023 14:07-0400 Body mass index (BMI) [Ratio] 29 kg/m2 Dr. Ganga Nunez Work Phone: [facility] 01-09-2023 14:07-0400 Body weight 86.[address] Ganga Nunez Work Phone: [facility] 01-09-2023 14:07-0400 Diastolic blood pressure 67 mm[Hg] Dr. Ganga Nunez Work Phone: 9(600)271-190926 [place] [address] 01-09-2023 14:07-0400 Heart rate 66 /min Dr. Ganga Nunez Work Phone: 7(416)884-976037 [place] [address] 01-09-2023 14:07-0400 Respiratory rate 16 /min Dr. Ganga Nunez Work Phone: 3(458)482-733037 [place] [address] 01-09-2023 14:07-0400 Systolic blood pressure 115 mm[Hg] Dr. Ganga Nunez Work Phone: 8(018)230-035437 [place] [address] 11-20-2022 11:04-0400 Body mass index (BMI) [Ratio] 29.9 kg/m2 Dr. Ganga Nunez Work Phone: 6(078)461-773937 [place] [address] 11-20-2022 11:04-0400 Body weight 89.[address] Ganga Nunez Work Phone: 8(834)682-361037 [place] [address] 11-20-2022 11:04-0400 Diastolic blood pressure 82 mm[Hg] Dr. Ganga Nunez Work Phone: 5(215)418-673737 [place] [address] 11-20-2022 11:04-0400 Heart rate 64 /min Dr. Ganga Nunez Work Phone: 8(546)288-903437 [place] [address] 11-20-2022 11:04-0400 Respiratory rate 20 /min Dr. Ganga Nnuez Work Phone: 6(208)928-466826 [place] [address] 11-20-2022 11:04-0400 SaO2% (BldA) [Mass fraction] 95 % Dr. Ganga Nunez Work Phone: 0(456)880-330926 [place] [address] 11-20-2022 11:04-0400 Systolic blood pressure 130 mm[Hg] Dr. Ganga Nunez Work Phone: 0(599)270-620826 [place] [address] 11-17-2022 14:01-0400 Body weight 87.09 kg Scott Quarles MD Work Phone: 3(758)742-829442 [place] [address] 11-17-2022 14:01-0400 Diastolic blood pressure 72 mm[Hg] Scott Quarles MD Work Phone: [facility] 11-17-2022 14:01-0400 Heart rate 56 /min Scott Quarles MD Work Phone: [facility] 11-17-2022 14:01-0400 Respiratory rate 14 /min Scott Quarles MD Work Phone: [facility] 11-17-2022 14:01-0400 SaO2% (BldA) [Mass fraction] 96 % Scott Quarles MD Work Phone: [facility] 11-17-2022 14:01-0400 Systolic blood pressure 128 mm[Hg] Scott Quarles MD Work Phone: [facility] 11-15-2022 17:05-0400 Body temperature 98.4 [degF] Ganga Nunez MD Work Phone: [facility] 11-15-2022 17:05-0400 Body weight 87.54 kg Ganga Nunez MD Work Phone: [facility] 11-15-2022 17:05-0400 Diastolic blood pressure 90 mm[Hg] Ganga Nunez MD Work Phone: [facility] 11-15-2022 17:05-0400 Heart rate 60 /min Ganga Nunez MD Work Phone: [facility] 11-15-2022 17:05-0400 Respiratory rate 18 /min Ganga Nunez MD Work Phone: [facility] 11-15-2022 17:05-0400 SaO2% (BldA) [Mass fraction] 95 % Ganga Nunez MD Work Phone: [facility] 11-15-2022 17:05-0400 Systolic blood pressure 150 mm[Hg] Ganga Nunez MD Work Phone: [facility] 11-13-2022 09:11-0400 Body height 174 cm Chidi Gao DO Work Phone: [facility] 11-13-2022 09:11-0400 Body weight 85.28 kg Chidi Gao DO Work Phone: [facility] 11-13-2022 09:11-0400 Respiratory rate 18 /min Chidi Gao DO Work Phone: [facility] 11-07-2022 08:28-0500 Body height 172.7 cm Jovani Franz MD Work Phone: [facility] 11-07-2022 08:28-0500 Body weight 85.28 kg Jovani Franz MD Work Phone: [facility] 11-07-2022 08:28-0500 Respiratory rate 20 /min Jovani Franz MD Work Phone: [facility] 10-09-2022 13:29-0500 Body temperature 99.9 [degF] Edwina Khoury PA-C Work Phone: [facility] 10-09-2022 13:29-0500 Body weight 87.09 kg Edwina Khoury PA-C Work Phone: [facility] 10-09-2022 13:29-0500 Diastolic blood pressure 78 mm[Hg] Edwina Khoury PA-C Work Phone: [facility] 10-09-2022 13:29-0500 Heart rate 95 /min Edwina Khoury PA-C Work Phone: [facility] 10-09-2022 13:29-0500 Respiratory rate 18 /min Edwina Khoury PA-C Work Phone: [facility] 10-09-2022 13:29-0500 SaO2% (BldA) [Mass fraction] 95 % Edwina Khoury PA-C Work Phone: [facility] 10-09-2022 13:29-0500 Systolic blood pressure 136 mm[Hg] Edwina Khoury PA-C Work Phone: [facility] 09-05-2022 09:17-0500 Body height 174 cm Jovani Franz MD Work Phone: [facility] 09-05-2022 09:17-0500 Body weight 89.81 kg Jovani Franz MD Work Phone: [facility] 09-05-2022 09:17-0500 Respiratory rate 20 /min Jovani Franz MD Work Phone: [facility] 08-21-2022 08:43-0500 Body weight 89.81 kg Selam Argueta ENVIRONMENTAL PROFESSIONAL.ELEVATOR CON[employer] Work Phone: [facility] 08-21-2022 08:43-0500 Diastolic blood pressure 70 mm[Hg] Selam Argueta ENVIRONMENTAL PROFESSIONAL.ELEVATOR [employer] Work Phone: [facility] 08-21-2022 08:43-0500 Heart rate 50 /min Selam Argueta ENVIRONMENTAL PROFESSIONAL.ELEVATOR CON[employer] Work Phone: [facility] 08-21-2022 08:43-0500 Respiratory rate 16 /min Selam Argueta ENVIRONMENTAL PROFESSIONAL.ELEVATOR CON[employer]CTOR [employer] Work Phone: [facility] 08-21-2022 08:43-0500 Systolic blood pressure 136 mm[Hg] Selam Argueta ENVIRONMENTAL PROFESSIONAL.ELEVATOR CON[employer] Work Phone: [facility] 08-18-2022 08:48-0500 Body temperature 98.6 [degF] Ganga Nunez MD Work Phone: [facility] 08-18-2022 08:48-0500 Body weight 89.81 kg Ganga Nunez MD Work Phone: [facility] 08-18-2022 08:48-0500 Diastolic blood pressure 72 mm[Hg] Ganga Nunez MD Work Phone: [facility] 08-18-2022 08:48-0500 Heart rate 77 /min Ganga Nunez MD Work Phone: [facility] 08-18-2022 08:48-0500 Respiratory rate 20 /min Ganga Nunez MD Work Phone: [facility] 08-18-2022 08:48-0500 SaO2% (BldA) [Mass fraction] 96 % Ganga Nunez MD Work Phone: [facility] 08-18-2022 08:48-0500 Systolic blood pressure 118 mm[Hg] Ganga Nunez MD Work Phone: [facility] 08-14-2022 20:22-0500 Body temperature 97.8 [degF] Dr. Ganga Nunez Work Phone: [facility] Work Phone: 08-14-2022 20:22-0500 Diastolic blood pressure 78 mm[Hg] Dr. Ganga Nunez Work Phone: [facility] Work Phone: 08-14-2022 20:22-0500 Heart rate 78 /min Dr. Ganga Nunez Work Phone: [facility] Work Phone: 08-14-2022 20:22-0500 Respiratory rate 16 /min Dr. Ganga Nunez Work Phone: [facility] Work Phone: 08-14-2022 20:22-0500 SaO2% (BldA) [Mass fraction] 97 % Dr. Ganga Nunez Work Phone: [facility] Work Phone: 08-14-2022 20:22-0500 Systolic blood pressure 134 mm[Hg] Dr. Ganga Nunez Work Phone: [facility] Work Phone: 08-14-2022 18:56-0500 Inhaled oxygen flow rate 2 L/min Dr. Ganga Nunez Work Phone: [facility] Work Phone: 08-14-2022 17:34-0500 Body height 172.[address] Ganga Nunez Work Phone: [facility] Work Phone: 08-14-2022 17:34-0500 Body mass index (BMI) [Ratio] 30.5 kg/m2 Dr. Ganga Nunez Work Phone: [facility] Work Phone: 08-14-2022 17:34-0500 Body weight 91.[address] Ganga Nunez Work Phone: [facility] Work Phone: 08-07-2022 08:47-0500 Body mass index (BMI) [Ratio] 29.5 kg/m2 Dr. Ganga Nunez Work Phone: [facility] Work Phone: 08-07-2022 08:47-0500 Body weight 90.[address] Ganga Nunez Work Phone: [facility] Work Phone: 08-07-2022 08:47-0500 Diastolic blood pressure 78 mm[Hg] Dr. Ganga Nunez Work Phone: [facility] Work Phone: 08-07-2022 08:47-0500 Heart rate 54 /min Dr. Ganga Nunez Work Phone: [facility] Work Phone: 08-07-2022 08:47-0500 Respiratory rate 16 /min Dr. Ganga Nunez Work Phone: [facility] Work Phone: 08-07-2022 08:47-0500 SaO2% (BldA) [Mass fraction] 98 % Dr. Ganga Nunez Work Phone: [facility] Work Phone: 08-07-2022 08:47-0500 Systolic blood pressure 139 mm[Hg] Dr. Ganga Nunez Work Phone: [facility] Work Phone: 07-24-2022 16:46-0500 Body temperature 98.8 [degF] Diana Chavez APRN.ELEVATOR CONSTRUCTOR [employer] Work Phone: [facility] 07-24-2022 16:46-0500 Body weight 91.17 kg Diana Praisler-Wood ENVIRONMENTAL PROFESSIONAL.ELEVATOR CONSTRUCTOR [employer] Work Phone: [facility] 07-24-2022 16:46-0500 Diastolic blood pressure 80 mm[Hg] Diana Praisler-Wood ENVIRONMENTAL PROFESSIONAL.ELEVATOR CONSTRUCTOR [employer] Work Phone: [facility] 07-24-2022 16:46-0500 Heart rate 80 /min Diana Praisler-Wood ENVIRONMENTAL PROFESSIONAL.ELEVATOR CONSTRUCTOR [employer] Work Phone: [facility] 07-24-2022 16:46-0500 Respiratory rate 16 /min Diana Praisler-Wood ENVIRONMENTAL PROFESSIONAL.ELEVATOR CONSTRUCTOR [employer] Work Phone: [facility] 07-24-2022 16:46-0500 SaO2% (BldA) [Mass fraction] 95 % Diana Praisler-Wood ENVIRONMENTAL PROFESSIONAL.ELEVATOR CONSTRUCTOR [employer] Work Phone: [facility] 07-24-2022 16:46-0500 Systolic blood pressure 122 mm[Hg] Diana Praisler-Wood ENVIRONMENTAL PROFESSIONAL.ELEVATOR CONSTRUCTOR [employer] Work Phone: [facility] 06-15-2022 10:33-0400 Body temperature 97.6 [degF] Dr. Ganga Nunez Work Phone: [facility] Work Phone: 06-15-2022 10:33-0400 Diastolic blood pressure 61 mm[Hg] Dr. Ganga Nunez Work Phone: [facility] Work Phone: 06-15-2022 10:33-0400 Heart rate 54 /min Dr. Ganga Nunez Work Phone: [facility] Work Phone: 06-15-2022 10:33-0400 Respiratory rate 18 /min Dr. Ganga Nunez Work Phone: [facility] Work Phone: 06-15-2022 10:33-0400 SaO2% (BldA) [Mass fraction] 94 % Dr. Ganga Nunez Work Phone: [facility] Work Phone: 06-15-2022 10:33-0400 Systolic blood pressure 129 mm[Hg] Dr. Ganga Nunez Work Phone: [facility] Work Phone: 06-15-2022 02:33-0400 Inhaled oxygen flow rate 2 L/min Dr. Ganga Nunez Work Phone: [facility] Work Phone: 06-14-2022 18:47-0400 Body mass index (BMI) [Ratio] 29.5 kg/m2 Dr. Ganga Nunez Work Phone: [facility] Work Phone: 06-14-2022 18:47-0400 Body weight [address] Ganga Nunez Work Phone: [facility] Work Phone: 05-23-2022 08:12-0400 Body temperature 97.9 [degF] Edwina Khoury PA-C Work Phone: [facility] 05-23-2022 08:12-0400 Body weight 87.09 kg Edwina Khoury PA-C Work Phone: [facility] 05-23-2022 08:12-0400 Diastolic blood pressure 80 mm[Hg] Edwina Khoury PA-C Work Phone: [facility] 05-23-2022 08:12-0400 Heart rate 60 /min Edwina Khoury PA-C Work Phone: [facility] 05-23-2022 08:12-0400 Respiratory rate 16 /min Edwina Khoury PA-C Work Phone: [facility] 05-23-2022 08:12-0400 Systolic blood pressure 112 mm[Hg] Edwina Khoury PA-C Work Phone: [facility] 05-16-2022 09:33-0400 Diastolic blood pressure 83 mm[Hg] Edwina Khoury PA-C Work Phone: [facility] 05-16-2022 09:33-0400 Heart rate 53 /min Edwina Khoury PA-C Work Phone: [facility] 05-16-2022 09:33-0400 Systolic blood pressure 168 mm[Hg] Edwina Khoury PA-C Work Phone: [facility] 05-16-2022 08:59-0400 Body temperature 97.59 [degF] Edwina Khoury PA-C Work Phone: [facility] 05-16-2022 08:59-0400 Body weight 88.45 kg Edwina Khoury PA-C Work Phone: [facility] 05-16-2022 08:59-0400 Respiratory rate 16 /min Edwina Khoury PA-C Work Phone: [facility] 05-05-2022 08:15-0400 Body temperature 97 [degF] Carmine Montez MD Work Phone: [facility] 05-05-2022 08:15-0400 Diastolic blood pressure 78 mm[Hg] Carmine Montez MD Work Phone: [facility] 05-05-2022 08:15-0400 Heart rate 44 /min Carmine Montez MD Work Phone: [facility] 05-05-2022 08:15-0400 Respiratory rate 19 /min Carmine Montez MD Work Phone: [facility] 05-05-2022 08:15-0400 SaO2% (BldA) [Mass fraction] 95 % Carmine Montez MD Work Phone: [facility] 05-05-2022 08:15-0400 Systolic blood pressure 154 mm[Hg] Carmine Montez MD Work Phone: [facility] 05-05-2022 06:38-0400 Body height 172.7 cm Carmine Montez MD Work Phone: [facility] 05-05-2022 06:38-0400 Body weight 88 kg Carmine Montez MD Work Phone: [facility] 04-11-2022 08:36-0400 Body weight 87.09 kg Salome Wong MD Work Phone: [facility] 04-11-2022 08:36-0400 Diastolic blood pressure 57 mm[Hg] Salome Wong MD Work Phone: [facility] 04-11-2022 08:36-0400 Heart rate 55 /min Salome Wong MD Work Phone: [facility] 04-11-2022 08:36-0400 SaO2% (BldA) [Mass fraction] 97 % Salome Wong MD Work Phone: [facility] 04-11-2022 08:36-0400 Systolic blood pressure 131 mm[Hg] Salome Wong MD Work Phone: [facility] 04-06-2022 13:45-0400 Body height 172.7 cm Ganga Nunez MD Work Phone: [facility] 04-06-2022 13:45-0400 Body weight 87.09 kg Ganga Nunez MD Work Phone: [facility] 04-06-2022 13:45-0400 Diastolic blood pressure 84 mm[Hg] Ganga Nunez MD Work Phone: [facility] 04-06-2022 13:45-0400 Heart rate 60 /min Ganga Nunez MD Work Phone: [facility] 04-06-2022 13:45-0400 Respiratory rate 18 /min aGnga Nunez MD Work Phone: [facility] 04-06-2022 13:45-0400 Systolic blood pressure 130 mm[Hg] Ganga Nunez MD Work Phone: [facility] 03-20-2022 09:24-0400 Body weight 87.54 kg Scott Quarles MD Work Phone: [facility] 03-20-2022 09:24-0400 Diastolic blood pressure 80 mm[Hg] Scott Quarles MD Work Phone: [facility] 03-20-2022 09:24-0400 Heart rate 58 /min Scott Quarles MD Work Phone: [facility] 03-20-2022 09:24-0400 SaO2% (BldA) [Mass fraction] 98 % Scott Quarles MD Work Phone: [facility] 03-20-2022 09:24-0400 Systolic blood pressure 128 mm[Hg] Scott Quarles MD Work Phone: [facility] 03-20-2022 09:08-0400 Body height 172.5 cm Respiratory Wstr Work Phone: [facility] 03-20-2022 09:08-0400 Body weight 87.54 kg Respiratory Wstr Work Phone: [facility] 03-20-2022 09:08-0400 Heart rate 58 /min Respiratory Wstr Work Phone: [facility] 03-20-2022 09:08-0400 Respiratory rate 14 /min Respiratory Wstr Work Phone: [facility] 03-20-2022 09:08-0400 SaO2% (BldA) [Mass fraction] 98 % Respiratory Wstr Work Phone: [facility] 03-08-2022 08:07-0400 Body weight 86.64 kg Salome Wong MD Work Phone: [facility] 03-08-2022 08:07-0400 Diastolic blood pressure 73 mm[Hg] Salome Wong MD Work Phone: [facility] 03-08-2022 08:07-0400 Heart rate 51 /min Salome Wong MD Work Phone: [facility] 03-08-2022 08:07-0400 SaO2% (BldA) [Mass fraction] 98 % Salome Wong MD Work Phone: [facility] 03-08-2022 08:07-0400 Systolic blood pressure 137 mm[Hg] Salome Wong MD Work Phone: [facility] 02-01-2022 09:51-0400 Body temperature 98.71 [degF] Edwinaluis eduardo Khoury PA-C Work Phone: [facility] 02-01-2022 09:51-0400 Body weight 85.28 kg Edwina Khoury PA-C Work Phone: [facility] 02-01-2022 09:51-0400 Diastolic blood pressure 60 mm[Hg] Edwinaantionette Khoury PA-C Work Phone: [facility] 02-01-2022 09:51-0400 Heart rate 60 /min Edwina Khoury PA-C Work Phone: [facility] 02-01-2022 09:51-0400 Respiratory rate 18 /min Edwina Khoury PA-C Work Phone: [facility] 02-01-2022 09:51-0400 Systolic blood pressure 110 mm[Hg] Edwinaantionette Khoury PA-C Work Phone: [facility] 01-25-2022 11:10-0400 Body height 175.[address] Ganga Nunez Work Phone: [facility] Work Phone: 01-25-2022 11:10-0400 Body mass index (BMI) [Ratio] 27.7 kg/m2 Dr. Ganga Nunez Work Phone: [facility] Work Phone: 01-25-2022 11:10-0400 Body weight 85.[address] Ganga Nunez Work Phone: [facility] Work Phone: 01-25-2022 11:10-0400 Diastolic blood pressure 60 mm[Hg] Dr. Ganga Nunez Work Phone: [facility] Work Phone: 01-25-2022 11:10-0400 Heart rate 59 /min Dr. Ganga Nunez Work Phone: [facility] Work Phone: 01-25-2022 11:10-0400 Inhaled oxygen flow rate 1 L/min Dr. Ganga Nunez Work Phone: [facility] Work Phone: 01-25-2022 11:10-0400 Respiratory rate 16 /min Dr. Ganga Nunez Work Phone: [facility] Work Phone: 01-25-2022 11:10-0400 Systolic blood pressure 106 mm[Hg] Dr. Ganga Nunez Work Phone: [facility] Work Phone: 01-24-2022 08:51-0400 Body weight 84.91 kg Ganga Nunez MD Work Phone: [facility] 01-24-2022 08:51-0400 Diastolic blood pressure 70 mm[Hg] Ganga Nunez MD Work Phone: [facility] 01-24-2022 08:51-0400 Heart rate 56 /min Ganga Nunez MD Work Phone: [facility] 01-24-2022 08:51-0400 Respiratory rate 16 /min Ganga Nuenz MD Work Phone: [facility] 01-24-2022 08:51-0400 SaO2% (BldA) [Mass fraction] 97 % Ganga Nunez MD Work Phone: [facility] 01-24-2022 08:51-0400 Systolic blood pressure 118 mm[Hg] Ganga Nunez MD Work Phone: [facility] 01-03-2022 08:01-0400 Body temperature 98.1 [degF] Diana Chavez APRN.ELEVATOR CONSTRUCTOR [employer] Work Phone: [facility] 01-03-2022 08:01-0400 Body weight 85.09 kg Diana Chavez APRN.ELEVATOR CONSTRUCTOR [employer] Work Phone: [facility] 01-03-2022 08:01-0400 Diastolic blood pressure 80 mm[Hg] Diana Praisler-Wood ENVIRONMENTAL PROFESSIONAL.ELEVATOR CONSTRUCTOR [employer]IC Work Phone: [facility] 01-03-2022 08:01-0400 Heart rate 50 /min Diana Praisler-Wood ENVIRONMENTAL PROFESSIONAL.ELEVATOR CONSTRUCTOR [employer]IC Work Phone: [facility] 01-03-2022 08:01-0400 Respiratory rate 16 /min Diana Praisler-Wood ENVIRONMENTAL PROFESSIONAL.ELEVATOR CONSTRUCTOR [employer]IC Work Phone: [facility] 01-03-2022 08:01-0400 SaO2% (BldA) [Mass fraction] 97 % Diana Praisler-Wood ENVIRONMENTAL PROFESSIONAL.ELEVATOR CONSTRUCTOR [employer] Work Phone: [facility] 01-03-2022 08:01-0400 Systolic blood pressure 142 mm[Hg] Diana Praisler-Wood ENVIRONMENTAL PROFESSIONAL.ELEVATOR CONSTRUCTOR [employer]IC Work Phone: [facility] 12-15-2021 12:29-0400 Body height 174 cm Carmine Montez MD Work Phone: [facility] 12-15-2021 12:29-0400 Body temperature 98.4 [degF] Carmine Montez MD Work Phone: [facility] 12-15-2021 12:29-0400 Body weight 86.18 kg Carmine Montez MD Work Phone: [facility] 12-15-2021 12:29-0400 Diastolic blood pressure 69 mm[Hg] Carmine Montez MD Work Phone: [facility] 12-15-2021 12:29-0400 Heart rate 65 /min Carmine Montez MD Work Phone: [facility] 12-15-2021 12:29-0400 SaO2% (BldA) [Mass fraction] 100 % Carmine Montez MD Work Phone: [facility] 12-15-2021 12:29-0400 Systolic blood pressure 132 mm[Hg] Carmine Montez MD Work Phone: [facility] 10-24-2021 07:39-0500 Body height 175.[address] Ganga Nunez Work Phone: [facility] Work Phone: 10-24-2021 07:39-0500 Body mass index (BMI) [Ratio] 28.6 kg/m2 Dr. Ganga Nunez Work Phone: [facility] Work Phone: 10-24-2021 07:39-0500 Body weight 87.[address] Ganga Nunez Work Phone: [facility] Work Phone: 10-24-2021 07:39-0500 Diastolic blood pressure 67 mm[Hg] Dr. Ganga Nnuez Work Phone: [facility] Work Phone: 10-24-2021 07:39-0500 Heart rate 54 /min Dr. Ganga Nunez Work Phone: [facility] Work Phone: 10-24-2021 07:39-0500 Respiratory rate 16 /min Dr. Ganga Nunez Work Phone: [facility] Work Phone: 10-24-2021 07:39-0500 SaO2% (BldA) [Mass fraction] 98 % Dr. Ganga Nunez Work Phone: [facility] Work Phone: 10-24-2021 07:39-0500 Systolic blood pressure 125 mm[Hg] Dr. Ganga Nunez Work Phone: [facility] Work Phone: 08-18-2021 20:42-0500 Diastolic blood pressure 84 mm[Hg] Dr. Ganga Nunez Work Phone: [facility] Work Phone: 08-18-2021 20:42-0500 Heart rate 52 /min Dr. Ganga Nunez Work Phone: [facility] Work Phone: 08-18-2021 20:42-0500 Respiratory rate 15 /min Dr. Ganga Nunez Work Phone: [facility] Work Phone: 08-18-2021 20:42-0500 SaO2% (BldA) [Mass fraction] 97 % Dr. Ganga Nunez Work Phone: [facility] Work Phone: 08-18-2021 20:42-0500 Systolic blood pressure 158 mm[Hg] Dr. Ganga Nunez Work Phone: [facility] Work Phone: 08-18-2021 16:09-0500 Body mass index (BMI) [Ratio] 28.8 kg/m2 Dr. Ganga Nunez Work Phone: [facility] Work Phone: 08-18-2021 16:09-0500 Body temperature 97 [degF] Dr. Ganga Nunez Work Phone: [facility] Work Phone: 08-18-2021 16:09-0500 Body weight 88.[address] Ganga Nunez Work Phone: [facility] Work Phone: 06-22-2017 09:09-0400 Heart rate 56 /min Fe [facility] Work Phone: 06-22-2017 08:39-0400 BMI (Body Mass Index) 27.21 kg/m2 Fe [facility] Work Phone: 06-22-2017 08:39-0400 BP Diastolic 78 mm[Hg] Fe Blair [facility] Work Phone: 06-22-2017 08:39-0400 BP Systolic 118 mm[Hg] Fe Blair [facility] Work Phone: 06-22-2017 08:39-0400 Height 172.72 cm Fe [facility] Work Phone: 06-22-2017 08:39-0400 Pulse (Heart Rate) 64 /min [facility] Work Phone: 06-22-2017 08:39-0400 Respiratory Rate 16 /min [facility] Work Phone: 06-22-2017 08:39-0400 Weight 81.19 kg [facility] Work Phone: 05-31-2016 08:19-0400 BMI (Body Mass Index) 26.58 kg/m2 [facility] Work Phone: 05-31-2016 08:19-0400 BP Diastolic 68 mm[Hg] [facility] Work Phone: 05-31-2016 08:19-0400 BP Systolic 126 mm[Hg] [facility] Work Phone: 05-31-2016 08:19-0400 BSA (Body Surface Area) 1.93 m2 [facility] Work Phone: 05-31-2016 08:19-0400 Pulse (Heart Rate) 58 /min [facility] Work Phone: 05-31-2016 08:19-0400 Respiratory Rate 20 /min [facility] Work Phone: 05-31-2016 08:19-0400 Weight 79.29 kg [facility] Work Phone: 04-06-2016 11:13-0400 Height 172.72 cm [facility] Work Phone: Encounters Encounter Date Encounter Type Care Provider Facility Start: 04-28-2025 End: 04-28-2025 Patient encounter procedure Ladarius Mon PA-C Work Phone: Urology Comment on above: Urinary tract infect ion with hematuria, site unspecified (Primary Dx); Urgency of urination; Screening for genitourinary condition Start: 04-28-2025 End: 04-28-2025 ambulatory LADARIUS MON Facility:[facility] Start: 04-25-2025 End: 04-25-2025 Patient encounter procedure Brielle TELLO Work Phone: [facility] Comment on above: Urinary frequency (P rimary Dx) Start: 04-25-2025 End: 04-25-2025 ambulatory GANGA NUNEZ Facility:[facility] Start: 04-13-2025 End: 04-14-2025 Follow-up encounter Ganga Nunez MD Work Phone: [facility] [place] Comment on above: Results Start: 04-13-2025 ambulatory SHILPI BORRERO Facility:[facility] Start: 04-13-2025 End: 04-13-2025 Subsequent hospital visit by physician [facility] Work Phone: Radiology Comment on above: Renal cyst [N28.1] Start: 04-10-2025 End: 04-10-2025 ambulatory GANGA NUNEZ Facility:[facility] Start: 03-30-2025 End: 03-30-2025 Patient encounter procedure Ganga Nunez MD Work Phone: [facility] [place] Comment on above: Hypertension, essent ial (Primary Dx); Mixed hyperlipidemia; Gastroesophageal reflux disease without esophagitis; Elevated hemoglobin A1c; Ascending aorta dilatation; Moderate aortic regurgitation; Nonrheumatic mitral valve disorder, unspecified; Thoracic aortic aneurysm without rupture, unspecified part; Hydrocephalus, adult (HCC); Other migraine without status migrainosus, not intractable; Post-COVID chronic dyspnea; Rheumatoid arthritis, involving unspecified site, unspecified whether rheumatoid factor present (HCC); Situational mixed anxiety and depressive disorder; Chronic anxiety; Essential tremor; Fibromyalgia; Obesity, Class I, BMI 30-34.9; Primary insomnia; RLS (restless legs syndrome); Vitamin D deficiency; Bilateral leg edema; Fatty liver; Bacterial sinusitis; Medication management Start: 03-30-2025 End: 03-30-2025 ambulatory GANGA NUNEZ Facility:[facility] Start: 03-28-2025 End: 03-30-2025 Telephone encounter Reginaldo Burnett MD Work Phone: [facility] [place] Start: 03-28-2025 End: 03-28-2025 Patient encounter procedure Didi Shafferk ENVIRONMENTAL PROFESSIONAL.ELEVATOR CONSTRUCTOR [employer]IC Work Phone: [facility] Comment on above: URI with cough and c ongestion (Primary Dx) Start: 03-28-2025 End: 03-28-2025 ambulatory GANGA NUNZE Facility:[facility] Start: 03-12-2025 End: 03-12-2025 Patient encounter procedure Latrice Parker ENVIRONMENTAL PROFESSIONAL.ELEVATOR CONSTRUCTOR [employer]IC Work Phone: Neurology Comment on above: Chronic insomnia (Pr imary Dx); RLS (restless legs syndrome); HUBER on CPAP; Nocturnal hypoxia; Requires supplemental oxygen Start: 03-12-2025 End: 03-12-2025 ambulatory LATRICE PARKER Facility:[facility] Start: 01-17-2025 End: 01-19-2025 Refill Salome Wong MD Work Phone: Allergy Comment on above: Refill Request Start: 01-16-2025 End: 01-16-2025 Office outpatient visit 15 minutes Tyler Wray ENVIRONMENTAL PROFESSIONAL.ELEVATOR CONSTRUCTOR [employer]DRA[employer]IC Work Phone: Pulmonary Medicine Comment on above: Small airways diseas e (Primary Dx); Post-COVID chronic dyspnea; Post-nasal drip; Nocturnal hypoxemia Start: 01-16-2025 End: 01-16-2025 ambulatory TYLER WRAY Facility:[facility] Start: 12-19-2024 End: 12-19-2024 Refill Ganga Nunez MD Work Phone: [facility] [place] Comment on above: Refill Request Start: 12-17-2024 End: 12-18-2024 Follow-up encounter Kimberly Grajeda APRN.ELEVATOR CONSTRUCTOR [employer] Work Phone: OB/Gynecology Comment on above: Results Start: 12-16-2024 End: 12-16-2024 ambulatory SARAH THORNTONF Facility:[facility] Start: 12-16-2024 End: 12-16-2024 Patient encounter procedure Sarah Lopez ENVIRONMENTAL PROFESSIONAL.ELEVATOR CONSTRUCTOR HYDRAULIC Work Phone: OB/Gynecology Comment on above: Vaginal odor (Primar y Dx); Vaginal discharge; Dysuria; Postmenopausal atrophic vaginitis Start: 12-14-2024 End: 12-15-2024 Follow-up encounter Brielle TELLO Work Phone: [facility] Comment on above: Results Start: 12-13-2024 End: 12-13-2024 Office outpatient visit 15 minutes Ganga Choe APRN.CNP Work Phone: [facility] Comment on above: Urgency of urination (Primary Dx); Vaginal discharge Start: 12-13-2024 End: 12-15-2024 Refill Hi Waddell MD Work Phone: Neurology Comment on above: Refill Request Start: 11-28-2024 End: 11-28-2024 Chart abstracting Wilbur Paez MA [facility] [place] [facility] Comment on above: Results (Outside fac ility xray /) Start: 11-22-2024 End: 11-22-[address] Ganga Nunez MD Work Phone: [facility] Work Phone: Start: 11-22-2024 End: 11-22-2024 Patient encounter procedure Lori TELLO [facility] Work Phone: Start: 11-22-2024 End: 11-22-2024 ambulatory Ganga Nunez Facility:[facility] Start: 10-28-2024 End: 10-28-2024 ambulatory SAMSON MCMAHON JR Facility:[facility] Start: 10-28-2024 End: 10-28-2024 Patient encounter procedure Samson Mcmahon MD Work Phone: Urology Comment on above: Gross hematuria (Francisca christopher Dx) Start: 10-24-2024 End: 10-24-2024 [facility]: Start: 10-24-2024 End: 10-24-2024 ambulatory Ganga Nunez Facility:[facility] Start: 10-15-2024 End: 10-15-2024 Chart abstracting Wilbur Paez MA [facility] [place] Comment on above: Results Start: 10-13-2024 End: 10-13-2024 ambulatory SHILPI BORRERO Facility:[facility] Start: 10-13-2024 End: 10-13-2024 Patient encounter procedure Shilpi Borrero APRN.ELEVATOR CONSTRUCTOR [employer], DNP Work Phone: Urology Comment on above: Gross hematuria (Francisca christopher Dx); Urgency of urination; Urge incontinence; Renal cyst Start: 10-13-2024 End: 10-13-2024 ambulatory Phillip Cortez Facility:[facility] Start: 10-02-2024 End: 10-02-2024 ambulatory TESSY RICE Facility:[facility] Start: 10-02-2024 End: 10-02-2024 Patient encounter procedure Tessy Rice MD Work Phone: OB/Gynecology Comment on above: Vaginal high risk hu man papillomavirus (HPV) DNA test positive (Primary Dx) Start: 10-01-2024 End: 10-02-2024 Telephone encounter Edwina Khoury PA-C Work Phone: [facility] Comment on above: Results Start: 10-01-2024 End: 10-01-2024 ambulatory EDWINA KHOURY Facility:[facility] Start: 10-01-2024 ambulatory EDWINA KHOURY Facili ty:[facility] Start: 10-01-2024 End: 10-01-2024 Subsequent hospital visit by physician Diagnostic Mammo [facility] Start: 09-30-2024 End: 09-30-2024 Telephone encounter Dustin Sanchez PA-C Work Phone: [facility] Start: 09-30-2024 End: 09-30-2024 ambulatory EDWINA KHOURY Facility:[facility] Start: 09-30-2024 End: 09-30-2024 Patient encounter procedure Edwina Khoury PA-C Work Phone: [facility] Comment on above: Encounter for Medica re annual wellness exam (Primary Dx); Advance directive discussed with patient; Hypertension, essential; Leg swelling; Vitamin D deficiency; Hydrocephalus, adult (HCC); Other migraine without status migrainosus, not intractable; Fibromyalgia; Ascending aorta dilatation (HCC); Mixed hyperlipidemia; Thoracic aortic aneurysm without rupture, unspecified part (HCC); Fatty liver; Gastroesophageal reflux disease without esophagitis; Elevated hemoglobin A1c; Situational mixed anxiety and depressive disorder; Rheumatoid arthritis, involving unspecified site, unspecified whether rheumatoid factor present (HCC) Start: 09-30-2024 End: 09-30-2024 ambulatory SELAM ARGUETA Facility:[facility] Start: 09-30-2024 End: 09-30-2024 Subsequent hospital visit by physician Xr [facility] [place] Work Phone: Radiology Comment on above: Productive cough [R0 5.8] Start: 09-28-2024 End: 09-28-2024 ambulatory GANGA NUNEZ Facility:[facility] Start: 09-28-2024 End: 09-28-2024 Patient encounter procedure Selam Argueta APRN.ELEVATOR CONSTRUCTOR HYDRA[employer]IC Work Phone: [facility] Comment on above: Productive cough (Pr imary Dx) Start: 09-26-2024 End: 09-26-2024 Telephone encounter Kimberly Grajeda APRN.ELEVATOR CONSTRUCTOR [employer]IC Work Phone: OB/Gynecology Comment on above: Results Start: 09-25-2024 End: 09-26-2024 ambulatory Ganga Nunez MD Work Phone: [facility] [place] Comment on above: Sinus Start: 09-24-2024 End: 09-24-2024 Chart abstracting Ganga Nunez MD Work Phone: [facility] [place] Comment on above: Outside Colonoscopy/ EGD (Operative report letter x 2, H&P) Start: 09-23-2024 Non-patient / Non-visit Magdi Abreu nd, DO -[facility] Start: 09-23-2024 End: 09-23-2024 Admission to same day surgery center Magdi Tam DO -Endoscopy Work Phone: Start: 09-23-2024 End: 09-23-2024 ambulatory Ganga Nunez Facility:[facility] Start: 09-22-2024 End: 09-22-2024 Telephone encounter Ganga Nunez MD Work Phone: [facility] [place] Comment on above: Continuity Of Care Start: 09-21-2024 End: 09-22-2024 Refill Reginaldo Burnett MD Work Phone: [facility] [place] Comment on above: Refill Request Start: 09-19-2024 End: 09-19-2024 Telephone encounter Tessy Rice MD Work Phone: OB/Gynecology Comment on above: Results Start: 09-18-2024 End: 09-18-2024 ambulatory KIMBERLY GRAJEDA Facility:[facility] Start: 09-18-2024 End: 09-18-2024 Patient encounter procedure Kimberly Smithreagan ENVIRONMENTAL PROFESSIONAL.ELEVATOR CONSTRUCTOR [employer]IC Work Phone: OB/Gynecology Comment on above: Vaginal discharge (P rimary Dx); Vaginal odor; Vaginal high risk human papillomavirus (HPV) DNA test positive Start: 09-17-2024 End: 09-17-2024 ambulatory TYLER WRAY Facility:[facility] Start: 09-17-2024 End: 09-17-2024 Office outpatient visit 15 minutes Tyler Wray ENVIRONMENTAL PROFESSIONAL.ELEVATOR CONSTRUCTOR [employer]IC Work Phone: Pulmonary Medicine Comment on above: Post-COVID chronic d yspnea (Primary Dx); Small airways disease; Acute sinusitis, recurrence not specified, unspecified location Start: 09-16-2024 End: 09-16-2024 Subsequent hospital visit by physician Jet [facility] [place] Work Phone: Radiology Comment on above: Rib pain on right si de [R07.81] Start: 09-16-2024 End: 09-16-2024 ambulatory GANGA NUNEZ Facility:[facility] Start: 09-16-2024 End: 09-16-2024 Patient encounter procedure Ganga Nunez MD Work Phone: [facility] Comment on above: Bacterial sinusitis (Primary Dx); Thoracic spine pain; Rib pain on right side; Trauma Start: 09-12-2024 End: 09-12-2024 Patient encounter procedure Hi Waddell MD Work Phone: Neurology Comment on above: Insomnia, unspecifie d type (Primary Dx); RLS (restless legs syndrome); Long-term current use of benzodiazepine; HUBER on CPAP; Hypoxia Start: 09-12-2024 End: 09-12-2024 ambulatory HI Annette WADDELL JR Facility:[facility] Start: 08-28-2024 End: 08-29-2024 Telephone encounter Shilpi Borrero APRN.CNP, DNP Work Phone: Urology Comment on above: Refill Request Start: 08-26-2024 End: 08-26-2024 ambulatory SHILPI BORRERO Facility:[facility] Start: 08-26-2024 End: 08-26-2024 Subsequent hospital visit by physician [facility]) Work Phone: Cat Scan Comment on above: Gross hematuria [R31 .0] Start: 08-13-2024 End: 08-13-2024 Telephone encounter Edwina Khoury PA-C Work Phone: Mammogram Comment on above: Orders Start: 08-12-2024 End: 08-12-2024 Telephone encounter Florinda Hernandez MD Work Phone: Mammography Comment on above: Mammogram Result Julia l Back Results Start: 08-11-2024 End: 08-11-2024 Chart abstracting Wilbur Paez MA [facility] [place] Comment on above: Results (Outside [place] ) Start: 08-11-2024 End: 08-11-2024 Subsequent hospital visit by physician Screen Mammo [facility] Comment on above: Screening mammogram, encounter for [Z12.31] Start: 08-11-2024 End: 08-11-2024 ambulatory EDWINA KHOURY Facility:[facility] Start: 08-11-2024 End: 08-11-2024 Patient encounter procedure Shilpi Borrero APRN.ELEVATOR CONSTRUCTOR HYDRAULIC, DNP Work Phone: Urology Comment on above: Urgency of urination (Primary Dx); Gross hematuria; Urge incontinence; Renal cyst Start: 08-08-2024 End: 08-10-2024 Telephone encounter Reginaldo Burnett MD Work Phone: [facility] [place] Comment on above: Craniologist - O ther Start: 08-08-2024 End: 08-08-2024 Patient encounter procedure Suzanne TELLO -[place], [facility] Work Phone: Start: 08-08-2024 End: 08-08-2024 ambulatory Suzanne [facility] Facility:[facility] Start: 08-01-2024 End: 08-04-2024 Refill Reginaldo Burnett MD Work Phone: [facility] [place] Comment on above: Refill Request Start: 07-30-2024 End: 07-30-2024 Telephone encounter Kimberly Grajeda APRN.ELEVATOR CONSTRUCTOR [employer]IC Work Phone: OB/Gynecology Comment on above: Results Start: 07-28-2024 End: 07-28-2024 ambulatory KIMBERLY GRAJEDA Facility:[facility] Start: 07-28-2024 End: 07-28-2024 Patient encounter procedure Kimberly Grajeda APRN.ELEVATOR CONSTRUCTOR [employer] Work Phone: OB/Gynecology Comment on above: Vulvar irritation (P rimary Dx) Start: 07-25-2024 End: 07-25-2024 Chart abstracting Ganga Nunez MD Work Phone: [facility] [place] Comment on above: Outside [id number] Ordered Start: 07-24-2024 End: 07-24-2024 Patient encounter procedure Kimberly Luisreagan FARRIS.ELEVATOR CONSTRUCTOR HYDRAULIC Work Phone: OB/Gynecology Comment on above: Vulvar irritation (P rimary Dx) Start: 07-24-2024 End: 07-24-2024 ambulatory KIMBERLY GRAJEDA Facility:[facility] Start: 07-24-2024 End: 07-24-2024 ambulatory Ganga Nunez Facility:[facility] Start: 07-24-2024 End: 07-24-2024 [facility] Start: 07-23-2024 End: 07-23-2024 Telephone encounter Kimberly Grajeda APRN.ELEVATOR CONSTRUCTOR HYDRA[employer]IC Work Phone: OB/Gynecology Comment on above: Orders Start: 07-17-2024 End: 07-17-2024 ambulatory KIMBERLY GRAJEDA Facility:[facility] Start: 07-17-2024 End: 07-17-2024 Patient encounter procedure Kimberly Grajeda ELEVATOR CONSTRUCTOR [employer] Work Phone: OB/Gynecology Comment on above: Vaginal burning (Francisca christopher Dx); Vaginal odor; PCB (post coital bleeding); Special screening examination for human papillomavirus (HPV); Cervical cancer screening Start: 07-16-2024 End: 07-17-2024 Telephone encounter Ganga Nunez MD Work Phone: [facility] [place] Comment on above: Results Start: 07-16-2024 End: 07-16-2024 ambulatory GANGA NUNEZ Facility:[facility] Start: 07-16-2024 End: 07-16-2024 Subsequent hospital visit by physician [facility] ([facility]) Work Phone: Cat Scan Comment on above: LLQ pain [R10.32] Start: 07-16-2024 End: 07-16-2024 ambulatory GANGA NUNEZ Facility:[facility] Start: 07-16-2024 End: 07-16-2024 [facility] Work Phone: [facility] Comment on above: Gross hematuria [R31 .0] Start: 07-15-2024 End: 07-15-2024 ambulatory GANGA NUNEZ Facility:[facility] Start: 07-15-2024 End: 07-15-2024 Patient encounter procedure Ganga Nunez MD Work Phone: [facility] [place] Comment on above: RLQ abdominal pain ( Primary Dx); LLQ pain; Vaginal odor; PCB (post coital bleeding); Infection in abdomen (HCC) Start: 07-13-2024 End: 07-14-2024 Telephone encounter Ganga Nunez MD Work Phone: [facility] [place] Comment on above: Results Start: 07-11-2024 End: 07-11-2024 ambulatory EDWINA KHOURY Facility:[facility] Start: 07-10-2024 End: 07-11-2024 ambulatory Ganga Nunez MD Work Phone: [facility] [place] Comment on above: UTI medication Start: 07-08-2024 End: 07-08-2024 Office outpatient visit 25 minutes Herber Reed PA-C Work Phone: [facility] [place] Comment on above: 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); Generalized osteoarthrosis; Fibromyalgia; High risk medication use Start: 07-08-2024 End: 07-08-2024 ambulatory GANGA NUNEZ Facility:[facility] Start: 07-08-2024 End: 07-08-2024 ambulatory GANGA NUNEZ Facility:[facility] Start: 07-08-2024 End: 07-08-2024 Patient encounter procedure Chiki Palomoomaguy ENVIRONMENTAL PROFESSIONAL.ELEVATOR CONSTRUCTOR HYDRAULIC Work Phone: [facility] Comment on above: Burning with urinati on (Primary Dx) Start: 07-01-2024 End: 07-01-2024 Telephone encounter Latrice Parker APRN.ELEVATOR CONSTRUCTOR [employer]DRA[employer]IC Work Phone: Neurology Comment on above: Patient Update (Pres sure changes) Start: 06-17-2024 End: 06-17-2024 Chart abstracting Ganga uNnez MD Work Phone: [facility] [place] Comment on above: Outside Cardiology Start: 06-17-2024 End: 06-17-2024 Telephone encounter Selam Argueta APRN.ELEVATOR [employer] Work Phone: [facility] [place] Comment on above: Results Start: 06-17-2024 End: 06-17-2024 ambulatory Ganga Nunez Facility:[facility] Start: 06-17-2024 End: 06-17-2024 ambulatory Pulm Lab [facility] Work Phone: PULM LAB [facility] Comment on above: Spirometry Start: 06-17-2024 End: 06-17-2024 Patient encounter procedure [facility] Work Phone: [facility] Comment on above: Post-COVID chronic d yspnea (Primary Dx); Small airways disease; Post-nasal drip Start: 06-16-2024 End: 06-16-2024 ambulatory SEALM ARGUETA Facility:[facility] Start: 06-16-2024 End: 06-16-2024 [facility] Work Phone: Nuclear Medicine Comment on above: Elevated alkaline ph osphatase level [R74.8] Start: 06-12-2024 End: 06-12-2024 Telephone encounter Selam Argueta APRN.ELEVATOR [employer]STRU[employer] Work Phone: [facility] [place] Comment on above: Results Start: 06-11-2024 End: 06-11-2024 ambulatory SELAM ARGUETA Facility:[facility] Start: 06-11-2024 End: 06-11-2024 Subsequent hospital visit by physician [facility] Work Phone: Radiology Comment on above: Elevated alkaline ph osphatase level [R74.8] Start: 06-10-2024 End: 06-10-2024 [facility] Work Phone: PULM LAB [facility] Comment on above: Spirometry Start: 06-10-2024 End: 06-10-2024 Patient encounter [facility] Start: 06-08-2024 End: 06-08-2024 Orders Only Scott Quarles MD Work Phone: Pulmonary Medicine Comment on above: Post-COVID chronic d yspnea (Primary Dx) Orders Start: 06-06-2024 End: 06-06-2024 Telephone encounter Selam Argueta APRN.ELEVATOR [employer]STRU[employer] Work Phone: [facility] [place] Comment on above: Results Start: 06-05-2024 End: 06-09-2024 ambulatory Selam Argueta ENVIRONMENTAL PROFESSIONAL.ELEVATOR CONSTRUCTOR [employer]IC Work Phone: [facility] [place] Comment on above: Urine and blood test s Start: 06-02-2024 End: 06-02-2024 Telephone encounter Selam Argeuta APRN.ELEVATOR CONSTRUCTOR [employer] Work Phone: [facility] [place] Comment on above: Results Start: 06-02-2024 End: 06-02-2024 ambulatory SELAM ARGUETA Facility:[facility] Start: 06-02-2024 End: 06-02-2024 Patient encounter procedure Latrice Parker APRN.ELEVATOR [employer]STRUCTOR [employer] Work Phone: Neurology Comment on above: HUBER on CPAP (Primary Dx); Hypertension, essential; RLS (restless legs syndrome); Chronic insomnia; Frequent nocturnal awakening Start: 06-02-2024 End: 06-02-2024 ambulatory LATRICE PARKER Facility:[facility] Start: 05-30-2024 End: 05-30-2024 Patient encounter procedure Selam Argueta APRN.ELEVATOR CONSTRUCTOR [employer] Work Phone: [facility] Comment on above: Positive occult stoo l blood test (Primary Dx); Burning with urination Start: 05-30-2024 End: 05-30-2024 ambulatory REGINALDO BURNETT Facility:[facility] Start: 05-29-2024 End: 05-29-2024 Chart abstracting Ganga Nunez MD Work Phone: [facility] Start: 05-28-2024 End: 05-28-2024 Telephone encounter Ganga Nunez MD Work Phone: [facility] Comment on above: Patient Update Start: 05-28-2024 End: 05-28-2024 Emergency department patient visit David Schwartz Facility:[facility] Start: 05-26-2024 End: 05-26-2024 Patient encounter procedure Reginaldo Burnett MD [facility] [place] Comment on above: 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); Asymptomatic postmenopausal status; Fibromyalgia Start: 05-26-2024 End: 05-26-2024 ambulatory GANGA NUNEZ [facility] Start: 05-14-2024 End: 05-14-2024 Telephone encounter Brielle TELLO Work Phone: [facility] Comment on above: Results Start: 05-13-2024 End: 05-13-2024 ambulatory GANGA NUNEZ Facility:[facility] Start: 05-13-2024 End: 05-13-2024 Patient encounter procedure Shiloh Paez APRN.ELEVATOR CONSTRUCTOR [employer]IC Work Phone: [facility] Comment on above: Urinary frequency (P rimary Dx); Vaginal discharge; Vaginal itching Start: 05-09-2024 End: 05-19-2024 E-mail encounter from caregiver Wilbur Paez MA [facility] [place] Start: 05-09-2024 End: 05-19-2024 Patient encounter procedure Wilbru Paez MA [facility] Comment on above: Pre op appointment Start: 05-07-2024 End: 05-07-2024 Telephone encounter Ganga Nunez MD Work Phone: [facility] Comment on above: UTI s/s Start: 04-08-2024 Refill Ganga ray MD Work Phone: [facility] Comment on above: Refill Request Start: 03-31-2024 Chart abstracting Ganga bee MD Work Phone: [facility] Comment on above: Outside Cardiology ( Labs/) Start: 03-31-2024 End: 03-31-2024 ambulatory Ganga Nunez Facility:[facility] Start: 03-31-2024 End: 03-31-2024 ambulatory Too Anna NP Facility:[facility] Start: 03-27-2024 Telephone encounter Selam wilks APRN.ELEVATOR CONSTRUCTOR [employer]IC Work Phone: [facility] Comment on above: Results Start: 03-25-2024 End: 03-25-2024 Patient encounter procedure Selam Argueta APRN.ELEVATOR CONSTRUCTOR [employer] Work Phone: [facility] Comment on above: Post-COVID chronic d yspnea (Primary Dx); Hypertension, essential; Leg swelling; Vaginal odor Start: 03-24-2024 ambulatory Ganga ray MD Work Phone: [facility] Comment on above: Swelling Start: 03-24-2024 Telephone encounter Selam wilks APRN.ELEVATOR CONSTRUCTOR [employer] Work Phone: [facility] Start: 03-18-2024 Telephone encounter Edwina norton PA-C Work Phone: [facility] Comment on above: Results Start: 03-18-2024 ambulatory Ganga Nunez Facility :[facility] Start: 03-13-2024 End: 03-13-2024 Subsequent hospital visit by physician Jet [facility] [place] Work Phone: Radiology Comment on above: Foot pain, left [M79 .672] Start: 03-13-2024 End: 03-13-2024 Patient encounter procedure Edwina Khoury PA-C Work Phone: [facility] [place] Comment on above: Hypertension, essent ial (Primary Dx); Chronic anxiety; Situational mixed anxiety and depressive disorder; Screening mammogram, encounter for; Spinal stenosis, lumbar region, without neurogenic claudication; Foot pain, left; Class 1 obesity with body mass index (BMI) of 31.0 to 31.9 in adult, unspecified obesity type, unspecified whether serious comorbidity present Start: 03-05-2024 Refill Ganga ray MD Work Phone: [facility] Comment on above: Refill Request Start: 02-25-2024 Telephone encounter Latrice ann APRN.ELEVATOR CONSTRUCTOR [employer] Work Phone: Neurology Comment on above: Medication Problem Start: 02-25-2024 End: 02-25-2024 Patient encounter procedure Latrice Parker APRN.ELEVATOR CONSTRUCTOR [employer] Work Phone: Neurology Comment on above: Primary insomnia (Pr imary Dx); RLS (restless legs syndrome); HUBER on CPAP Start: 02-14-2024 End: 02-14-2024 Patient encounter procedure [facility]anga Nunez MD [facility] Comment on above: Pre-op examination ( Primary Dx); DDD (degenerative disc disease), lumbar; Chronic pain syndrome; Hypertension, essential; Bilateral leg edema; Thoracic aortic aneurysm without rupture, unspecified part (HCC); Moderate aortic regurgitation; Post-COVID chronic dyspnea; Dependence on nocturnal oxygen therapy; Rash Start: 02-14-2024 End: 02-14-2024 Preprocedural examination done Ganga Nunez MD Work Phone: [facility] Work Phone: Start: 02-06-2024 Telephone encounter Wilbur Paez DARREL [facility] Start: 01-05-2024 Telephone encounter Brielle TELLO Work Phone: [facility] Comment on above: Results Start: 01-03-2024 End: 01-03-2024 Patient encounter procedure Brielle TELLO Work Phone: [facility] Comment on above: Urinary frequency (P rimary Dx); URI, acute Start: 12-10-2023 Chart abstracting Ganga bee MD Work Phone: [facility] Comment on above: External / [facility] Start: 12-10-2023 End: 12-10-2023 Patient encounter procedure Barbra Ruby NAYAKELEVATOR CONSTRUCTOR HYDRAULIC Work Phone: [facility] Comment on above: Vaginal discharge (P rimary Dx); Conjunctivitis of both eyes, unspecified conjunctivitis type; URI, acute Start: 12-07-2023 End: 12-07-[address] Ganga Nunez Work Phone: [facility] Work Phone: Start: 12-07-2023 End: 12-07-[address] Ganga Nunez Work Phone: [facility]-Laboratory Work Phone: Start: 12-07-2023 Chart abstracting Isatu Grajeda LPN [facility] Comment on above: External / H CT L Shoulder Start: 12-07-2023 End: 12-07-2023 ambulatory Phillip Cortez Facility:[facility] Start: 12-05-2023 End: 12-05-[address] Ganga Nunez Work Phone: [facility] Work Phone: Start: 12-05-2023 End: 12-05-[address] Ganga Nunez Work Phone: [facility]-Cat Scan, [facility] Work Phone: Start: 12-05-2023 End: 12-05-2023 ambulatory Phillip Cortez Facility:[facility] Start: 11-08-2023 Chart abstracting Ganga bee MD Work Phone: [facility] Comment on above: outside cardiac Start: 11-07-2023 Non-patient / Non-visit Dr. Bob Nunez Work Phone: [facility] Start: 11-07-2023 End: 11-07-[address] Ganga Nunez Work Phone: [facility] Work Phone: Start: 11-07-2023 End: 11-07-[address] [facility] Work Phone: Start: 10-30-2023 End: 10-31-[address] PHILLIP CORTEZ MD Facility:[facility] Start: 10-30-2023 End: 10-31-[address] PHILLIP CORTEZ MD [facility] Start: 10-24-2023 Chart abstracting Ganga bee MD Work Phone: [facility] Comment on above: Outside Echo Start: 10-23-2023 Non-patient / Non-visit Dr. Bob Nunez Work Phone: [facility] Start: 10-23-2023 End: 10-23-[address] Ganga Nunez Work Phone: [facility] Work Phone: Start: 10-23-2023 End: 10-23-[address] Ganga Nunez Work Phone: [facility] Work Phone: Start: 10-10-2023 End: 10-10-2023 Subsequent hospital visit by physician Xr [facility] Work Phone: Radiology Comment on above: Thumb pain, left [M7 9.645] Start: 10-10-2023 End: 10-10-2023 Patient encounter procedure Ganga Nunez MD Work Phone: [facility] Comment on above: Pre-op examination ( Primary Dx); Arthritis of left shoulder region; Chronic left shoulder pain; Hypertension, essential; Thoracic aortic aneurysm without rupture, unspecified part (HCC); Ascending aorta dilatation (HCC); Thumb pain, left Start: 10-10-2023 End: 10-10-2023 Preprocedural examination done Ganga Nunez MD Work Phone: [facility] Work Phone: Start: 10-05-2023 End: 10-06-[address] PHILLIP CORTEZ MD Facility:[facility] Start: 10-05-2023 End: 10-06-[address] PHILLIP CORTEZ MD Facility:[facility] Start: 10-05-2023 End: 10-05-[address] PHILLIP CORTEZ MD [facility] Start: 08-30-2023 End: 08-30-[address] Ganga Nunez Work Phone: [facility] Work Phone: Start: 08-30-2023 End: 08-30-[address] Ganga Nunez Work Phone: [facility] Work Phone: Start: 08-28-2023 ambulatory GANGA NUNEZ Facili ty:[facility] Start: 08-21-2023 Refill Inderprit García whitehead MD Work Phone: [facility] [place] Comment on above: Refill Request Start: 08-15-2023 Chart abstracting Ganga bee MD Work Phone: [facility] Comment on above: Outside Aimy-Lzi-NLX Ordered; Outside Cardio Start: 08-15-2023 End: 08-15-[address] Ganga Nunez Work Phone: [facility] Work Phone: Start: 08-15-2023 End: 08-15-[address] Ganga Nunez Work Phone: [facility] Work Phone: Start: 08-10-2023 End: 08-10-2023 Office outpatient visit 15 minutes Ganga Choe APRN.CNP Work Phone: [facility] Comment on above: Viral illness (Prima ry Dx) Start: 08-09-2023 Telephone encounter Ganga Nunez MD Work Phone: [facility] Comment on above: pre-op Forms Start: 07-10-2023 Chart abstracting Ganga bee MD Work Phone: [facility] Comment on above: Outside Imagain Start: 07-09-2023 Non-patient / Non-visit Dr. Bob Nunez Work Phone: [facility] Start: 07-09-2023 End: 07-09-[address] Ganga Nunez Work Phone: [facility] Work Phone: Start: 07-09-2023 End: 07-09-[address] [facility]une[facility] Work [facility]: Start: 06-22-2023 Chart abstracting Ganga bee MD Work Phone: [facility] Comment on above: Outside Bone Density Start: 06-19-2023 Chart abstracting Ganga bee MD Work Phone: [facility] Comment on above: Outside Ortho Proced ure Start: 06-18-2023 End: 06-19-2023 Evaluation and management of inpatient Dr. Ganga Nunez Work Phone: [facility]-Medical Surgical 3 Work Phone: Start: 06-18-2023 End: 06-19-[address] Ganga Nunez Work Phone: [facility] Work Phone: Start: 06-14-2023 Telephone encounter Reginaldo Burnett MD Work Phone: [facility] [place] Comment on above: Orders Start: 06-14-2023 End: 06-14-[address] Ganga Nunez Work Phone: [facility] Work Phone: Start: 06-14-2023 End: 06-14-[address] Ganga Nunez Work Phone: [facility]-Outpatient Bone Densitometry Work Phone: Start: 06-08-2023 End: 06-08-2023 Subsequent hospital visit by physician Screen [facility]amm[facility] Comment on above: Encounter for screen ing mammogram for breast cancer [Z12.31] Start: 06-01-2023 End: 06-01-2023 ambulatory Nadira Springer PA-C Work Phone: [facility] Comment on above: Other hydrocephalus (HCC) (Primary Dx) Refill Request Start: 06-01-2023 End: 06-01-2023 Telemedicine consultation with patient Nadira Springer PA-C Work Phone: [facility] Start: 05-30-2023 ambulatory Ganga ray MD Work Phone: [facility] [place] Start: 05-28-2023 End: 05-28-2023 Patient encounter procedure Reginaldo Burnett MD Work Phone: [facility] [place] Comment on above: 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); Asymptomatic postmenopausal status Start: 05-24-2023 End: 05-24-2023 Patient encounter procedure Selam Argueta APRN.CNP Work Phone: [facility] Comment on above: Rheumatoid arthritis , involving unspecified site, unspecified whether rheumatoid factor present (HCC) (Primary Dx); Moderate aortic regurgitation; Essential tremor; Dependence on nocturnal oxygen therapy; Primary insomnia; Gastroesophageal reflux disease without esophagitis; Spinal stenosis, lumbar region, without neurogenic claudication; Right hip pain; DDD (degenerative disc disease), lumbar; Ascending aorta dilatation (HCC); Situational mixed anxiety and depressive disorder; Hypertension, essential; Thoracic aortic aneurysm without rupture, unspecified part (HCC) Start: 05-21-2023 Telephone encounter Ganga Nunez MD Work Phone: [facility] Comment on above: Forms/letter Start: 05-17-2023 Telephone encounter Ganga Nunez MD Work Phone: [facility] Comment on above: Results Start: 05-17-2023 End: 05-17-[address] Ganga Nunez Work Phone: [facility] Work Phone: Start: 05-17-2023 End: 05-17-[address] Ganga Nunez Work Phone: [facility]-Pre-Admission Testing Work Phone: Start: 05-03-2023 ambulatory No Pcp KALEIGH Mcrae [employer] Start: 05-03-[address] Gregg Nunez Work Phone: [facility]-Cardiovascular Services Work Phone: Start: 05-03-2023 Non-patient / Non-visit Dr. Bob Nunez Work Phone: [facility] [facility] Work Phone: Start: 04-25-2023 Telephone encounter Ganga Nunez MD Work Phone: [facility] Comment on above: Results Start: 04-24-2023 Telephone encounter Nadira moser PA-C Work Phone: [facility] Start: 04-24-2023 End: 04-24-2023 Patient encounter procedure Ganga Nunez MD Work Phone: [facility] Work Phone: Comment on above: Encounter for Medica re annual wellness exam (Primary Dx); Mixed hyperlipidemia; Hypertension, essential; Other migraine without status migrainosus, not intractable; Hydrocephalus, adult (HCC); Ascending aorta dilatation (HCC); Moderate aortic regurgitation; Nonrheumatic mitral valve disorder, unspecified; Thoracic aortic aneurysm without rupture, unspecified part (HCC); Post-COVID chronic dyspnea; Chronic anxiety; Situational mixed anxiety and depressive disorder; Essential tremor; Fibromyalgia; HUBER (obstructive sleep apnea); Primary insomnia; Vitamin D deficiency; Urge incontinence; Chronic pain syndrome; Gastroesophageal reflux disease without esophagitis; Advance directive discussed with patient; Elevated hemoglobin A1c; Rheumatoid arthritis, involving unspecified site, unspecified whether rheumatoid factor present (HCC); Heat intolerance; Polyuria; Dry mouth; Need for vaccination; Palpitations; Dizziness; Dependence on nocturnal oxygen therapy Start: 04-04-2023 End: 04-04-2023 Patient encounter procedure Reginaldo Burnett MD Work Phone: [facility] [place] Comment on above: 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) Start: 03-26-2023 End: 03-26-2023 Patient encounter procedure Tessy Moy PA-C Work Phone: Pulmonary Medicine Comment on above: Post-COVID chronic d yspnea (Primary Dx); Lung nodules; Dependence on nocturnal oxygen therapy; HUBER on CPAP Start: 03-20-2023 End: 03-20-2023 Subsequent hospital visit by physician [facility] ([facility]) Work Phone: Cat Scan Comment on above: Lung nodules [R91.8] Start: 03-08-2023 Refill Ganga ray MD Work Phone: [facility] [place] Comment on above: Refill Request Start: 02-07-2023 End: 02-07-2023 Patient encounter procedure Reginaldo Burnett MD Work Phone: [facility] [place] Comment on above: Generalized osteoart hrosis (Primary Dx); Polyarthralgia; Fibromyalgia Start: 02-06-2023 Orders Only Scott Quarles MD Work Phone: Pulmonary Medicine Comment on above: Lung nodules (Primar y Dx) Start: 01-09-2023 End: 01-09-[address] Ganga Nunez Work Phone: [facility] Work Phone: Start: 01-09-2023 End: 01-09-[address] Ganga Nunez Work Phone: [facility] Start: 01-09-2023 End: 01-09-2023 ambulatory Barbra O'Colin PT [facility] Comment on above: Spinal stenosis, lum bar region, without neurogenic claudication (Primary Dx); Primary osteoarthritis of both knees Start: 01-04-2023 End: 01-04-2023 ambulatory Barbra O'Colin PT [facility] Comment on above: Spinal stenosis, lum bar region, without neurogenic claudication (Primary Dx); Primary osteoarthritis of both knees Start: 12-18-2022 End: 12-18-2022 ambulatory Barbra O'Colin PT [facility] Comment on above: Spinal stenosis, lum bar region, without neurogenic claudication (Primary Dx); Primary osteoarthritis of both knees Start: 12-13-2022 End: 12-13-2022 ambulatory Barbra O'Colin PT [facility] Comment on above: Spinal stenosis, lum bar region, without neurogenic claudication (Primary Dx); Primary osteoarthritis of both knees Start: 12-11-2022 End: 12-11-2022 ambulatory Barbra O'Colin PT [facility] Comment on above: Spinal stenosis, lum bar region, without neurogenic claudication (Primary Dx); Primary osteoarthritis of both knees Start: 11-30-2022 End: 11-30-2022 Subsequent hospital visit by physician Jonn Tejeda APRN.CNP Work Phone: [facility] Comment on above: Primary osteoarthrit is of right hip [M16.11] Start: 11-29-2022 Chart abstracting Ganga bee MD Work Phone: [facility] Comment on above: Consult (Pain manage ment ) Start: 11-22-2022 End: 11-22-2022 ambulatory Barbra O'Colin PT [facility] Comment on above: Spinal stenosis, lum bar region, without neurogenic claudication (Primary Dx); Primary osteoarthritis of both knees Start: 11-20-2022 End: 11-20-[address] Ganga Nunez Work Phone: [facility] Start: 11-17-2022 End: 11-17-2022 Patient encounter procedure Scott Quarles MD Work Phone: Pulmonary Medicine Comment on above: Post-COVID chronic d yspnea (Primary Dx); Dependence on nocturnal oxygen therapy; Lung nodule Start: 11-17-2022 Telephone encounter Ganga Nunez MD Work Phone: [facility] Comment on above: Results Start: 11-15-2022 End: 11-15-2022 Patient encounter procedure Ganga Nunez MD Work Phone: [facility] Comment on above: Situational mixed an xiety and depressive disorder (Primary Dx); Chronic anxiety; Fibromyalgia; Spinal stenosis, lumbar region, without neurogenic claudication; Right hip pain; Post-COVID chronic dyspnea; Hydrocephalus, adult (HCC); Ataxia; Double vision; Urinary incontinence, unspecified type; Back spasm; Other hydrocephalus (HCC); Leukocytosis, unspecified type Start: 11-15-2022 End: 11-15-2022 ambulatory Barbra O'Colin PT [facility] Comment on above: Spinal stenosis, lum bar region, without neurogenic claudication (Primary Dx); Primary osteoarthritis of both knees Start: 11-13-2022 End: 11-13-2022 Patient encounter procedure Chidi Gao DO Work Phone: [facility] Comment on above: Chronic right-sided low back pain with right-sided sciatica (Primary Dx); Primary osteoarthritis of right hip; Polyarthralgia; Fibromyalgia Start: 11-07-2022 End: 11-07-2022 Patient encounter procedure Jovani Franz MD Work Phone: [facility] Comment on above: Spinal stenosis, lum bar region, without neurogenic claudication (Primary Dx); Primary osteoarthritis of both knees Start: 10-23-2022 ambulatory No Pcp [employer] Start: 10-17-2022 Telephone encounter Ganga Nunez MD Work Phone: [facility] Comment on above: Referral Request Start: 10-10-2022 Telephone encounter Edwina norton PA-C Work Phone: [facility] Comment on above: Results Start: 10-09-2022 End: 10-09-2022 Patient encounter procedure Edwina Khoury PA-C Work Phone: [facility] Comment on above: Ascending aorta dila tation (HCC) (Primary Dx); Hydrocephalus, adult (HCC); Hypertension, essential; Mixed hyperlipidemia; Thoracic aortic aneurysm without rupture, unspecified part; Acute respiratory disease due to COVID-19 virus; Gastroesophageal reflux disease, unspecified whether esophagitis present; Situational mixed anxiety and depressive disorder; Vitamin D deficiency; Fatigue, unspecified type; Screening for diabetes mellitus; Pharyngitis, unspecified etiology; Sciatica, right side Start: 09-21-2022 Non-patient / Non-visit Dr. Bob Nunez Work Phone: [facility] Start: 09-21-2022 Non-patient / Non-visit Dr. Bob Nunez Work Phone: [facility] Start: 09-21-2022 End: 09-21-[address] Ganga Nunez Work Phone: [facility] Start: 09-05-2022 End: 09-05-2022 Patient encounter procedure Jovani Franz MD Work Phone: [facility] Comment on above: Primary osteoarthrit is of both knees (Primary Dx); Pes anserine bursitis Start: 08-24-2022 End: 08-24-[address] Ganga Nunez Work Phone: [facility] Work Phone: Start: 08-24-2022 End: 08-24-[address] Ganga Nunez Work Phone: [facility] Start: 08-21-2022 End: 08-21-2022 Patient encounter procedure Selam Argueta APRN.[employer]ATOR [employer] Work Phone: [facility] Comment on above: Acute bronchitis, un specified organism (Primary Dx); Back spasm Start: 08-19-2022 Telephone encounter Ganga Nunez MD Work Phone: [facility] Comment on above: Results Start: 08-18-2022 End: 08-18-2022 Patient encounter procedure Ganga Nunez MD Work Phone: [facility] Comment on above: Bronchitis (Primary Dx); Costochondritis; Suspected COVID-19 virus infection; Acute pain of right knee; Situational mixed anxiety and depressive disorder Start: 08-14-2022 End: 08-14-2022 Emergency department patient visit Dr. Ganga Nunez Work Phone: [facility] Start: 08-14-2022 End: 08-14-2022 Patient encounter procedure Alex Coppola APRN.ELEVATOR [employer] Work Phone: [facility] Comment on above: SOB (shortness of br eath) (Primary Dx) Start: 08-07-2022 End: 08-07-[address] Ganga Nunez Work Phone: [facility] Start: 07-26-2022 Telephone encounter Didi Willams APRN.E[employer]ATOR [employer] Work Phone: [facility] Comment on above: Results Start: 07-24-2022 End: 07-24-2022 Patient encounter procedure Diana Chavez APRN.E[employer]ATOR [employer] Work Phone: [facility] Comment on above: Urinary frequency (P rimary Dx) Start: 06-15-2022 Non-patient / Non-visit Dr. Bob Nunez Work Phone: [facility] Start: 06-14-2022 Non-patient / Non-visit Dr. Bob Nunez Work Phone: [facility] Start: 06-14-2022 End: 06-15-2022 Evaluation and management of inpatient Dr. Ganga [facility]une[facility] Start: 06-01-2022 End: 06-01-2022 ambulatory Janet Trejo ENVIRONMENTAL PROFESSIONAL.ELEVATOR [employer] Work Phone: [facility] Comment on above: Toothache (Primary D x); URI, acute Start: 06-01-2022 End: 06-01-2022 Telemedicine consultation with patient Janet Trejo ENVIRONMENTAL PROFESSIONAL.ELEVATOR [employer] Work Phone: [facility] Start: 05-23-2022 End: 05-23-2022 Patient encounter procedure Edwina Khoury PA-C Work Phone: [facility] Comment on above: Hypertension, essent ial (Primary Dx); Acute gastric ulcer, unspecified whether gastric ulcer hemorrhage or perforation present Start: 05-17-2022 Telephone encounter Edwina norton PA-C Work Phone: [facility] Comment on above: Results Start: 05-16-2022 End: 05-16-2022 Office outpatient visit 25 minutes Edwina Khoury PA-C Work Phone: [facility] Comment on above: Pre-op evaluation (P rimary Dx); Primary osteoarthritis of both shoulders; Mixed hyperlipidemia; Hypertension, essential; Thoracic aortic aneurysm without rupture (HCC); Nonrheumatic mitral valve disorder, unspecified; Ascending aorta dilatation (HCC); Essential tremor; Epigastric pain Start: 05-16-2022 End: 05-16-2022 Preprocedural examination done Edwina Khoury PA-C Work Phone: [facility] Start: 05-05-2022 End: 05-05-2022 Subsequent hospital visit by physician Carmine Montez MD Work Phone: [facility] Comment on above: Diarrhea of presumed infectious origin [R19.7] Start: 04-28-2022 Documentation procedure Mammog león Coordinator [facility] Start: 04-28-2022 Letter encounter Mammography Coordinator [facility] Department Start: 04-27-2022 End: 04-27-2022 Subsequent hospital visit by physician Screen Mammo [facility] Comment on above: Encounter for screen ing mammogram for breast cancer [Z12.31] Start: 04-23-2022 Telephone encounter Ganga Nunez MD Work Phone: [facility] Comment on above: Results Start: 04-11-2022 End: 04-11-2022 Patient encounter procedure Salome Wong MD Work Phone: Allergy Comment on above: Nonallergic rhinitis (Primary Dx) Start: 04-06-2022 End: 04-06-2022 Patient encounter procedure Ganga Nunez MD Work Phone: [facility] Comment on above: Well adult exam ([facility] Dx); Hypertension, essential; Mixed hyperlipidemia; Hydrocephalus, adult (HCC); Other migraine without status migrainosus, not intractable; Ascending aorta dilatation (HCC); Thoracic aortic aneurysm without rupture (HCC); Situational mixed anxiety and depressive disorder; Chronic anxiety; Post-COVID chronic dyspnea; Moderate aortic regurgitation; Fibromyalgia; Lung nodule; HUBER (obstructive sleep apnea); Primary insomnia; Vitamin D deficiency; Essential tremor; Cold intolerance; Heat intolerance; Primary osteoarthritis of both shoulders; Living will on file; Advance directive discussed with patient; Encounter for screening mammogram for breast cancer; Medication management Start: 04-06-2022 End: 04-06-2022 Patient encounter status Ganga Nunez MD [facility] Phone[facility] Start: 04-05-2022 End: 04-05-[address] Ganga Nunez Work Phone: [facility] Start: 03-29-2022 Telephone encounter Opal castanon ENVIRONMENTAL PROFESSIONAL.ELEVATOR [employer] Work Phone: Neurology Comment on above: PAP Rx Faxed Start: 03-29-2022 End: 03-29-2022 ambulatory Opal Mendez KALEIGH.ELEVATOR [employer]STRU[employer] Work Phone: Neurology Comment on above: HUBER (obstructive sle ep apnea) (Primary Dx); Primary hypertension; Excessive daytime sleepiness Start: 03-29-2022 End: 03-29-2022 Telemedicine consultation with patient Opal Mendez KALEIGH.E[employer]ATOR [employer] Work Phone: [place] [phone] Start: 03-24-2022 Telephone encounter Edwina norton PA-C Work Phone: [facility] [place] Comment on above: Results Start: 03-20-2022 End: 03-20-2022 ambulatory Respiratory Therapist [facility] Work Phone: Pulmonary Medicine Comment on above: Spirometry Start: 03-20-2022 End: 03-20-2022 Patient encounter procedure Respiratory Therapist [facility] Work Phone: [facility] Comment on above: Post-COVID chronic d yspnea (Primary Dx); Lung nodules; Chronic hypoxemic respiratory failure (HCC) Start: 03-13-2022 End: 03-13-2022 Subsequent hospital visit by physician [facility] (I-Stat) Work Phone: Cat Scan Comment on above: Lung nodules [R91.8] Start: 03-08-2022 Telephone encounter Edwina norton PA-C Work Phone: [facility] [place] Comment on above: Results Start: 03-08-2022 End: 03-08-2022 Patient encounter procedure Salome Wong MD Work Phone: Allergy Comment on above: Chronic rhinitis (Pr imary Dx); Post-COVID chronic dyspnea Start: 03-01-2022 Telephone encounter Syeda Tovar [facility] Comment on above: Social Work Consulta tion Start: 02-24-2022 Telephone encounter Edwina norton PA-C Work Phone: [facility] Comment on above: Results Start: 02-22-2022 End: 02-22-2022 Subsequent hospital visit by physician Mri Radio [facility] (I-Stat/1.5t) Work Phone: Radiology Comment on above: Nonruptured cerebral aneurysm [I67.1] Other hydrocephalus (HCC) [G91.8] Start: 02-17-2022 End: 02-17-2022 ambulatory Nadira Annette Springer PA-C Work Phone: [facility] Comment on above: Other hydrocephalus (HCC); Hydrocephalus, adult (HCC) Start: 02-17-2022 End: 02-17-2022 Telemedicine consultation with patient Nadira Bryant Gian HAZEL Work Phone: [facility] Start: 02-08-2022 Telephone encounter Edwina norton PA-C Work Phone: [facility] Comment on above: Results Start: 02-06-2022 Telephone encounter Holley Arguello MD Work Phone: [facility] Comment on above: Future Appointment ( New Patient, [place], Any) Start: 02-03-2022 End: 02-03-2022 Subsequent hospital visit by physician [facility] (I-[facility]) Work Phone: Cat Scan Comment on above: Dizziness [R42] Start: 02-01-2022 Telephone encounter Edwina norton PA-C Work Phone: [facility] Comment on above: Results Start: 02-01-2022 End: 02-01-2022 Patient encounter procedure Edwina Khoury PA-C Work Phone: [facility] Comment on above: Lump of skin of lowe r extremity, right (Primary Dx) Start: 01-25-2022 End: 01-25-[address] Ganga Nunez Work Phone: [facility] Start: 01-24-2022 Telephone encounter Ganga Nunez MD Work Phone: [facility] Comment on above: Results Start: 01-24-2022 End: 01-24-2022 Patient encounter procedure Ganga Nunez MD Work Phone: [facility] Comment on above: Hypertension, essent ial (Primary Dx); Mixed hyperlipidemia; Thoracic aortic aneurysm without rupture (HCC); Moderate aortic regurgitation; Ascending aorta dilatation (HCC); Other migraine without status migrainosus, not intractable; Situational mixed anxiety and depressive disorder; Chronic anxiety; Lung nodule < 6cm on CT; Chronic hypoxemic respiratory failure (HCC); Post-COVID chronic dyspnea; Palpitations; Hydrocephalus, adult (HCC); Dizziness; Syncope, unspecified syncope type; Allergy, initial encounter; Other hydrocephalus ([facility]) Start: 01-10-2022 Refill Edwina Goldsmith on PA-C Work Phone: [facility] Comment on above: Refill Request Start: 01-03-2022 End: 01-03-2022 Patient encounter procedure Diana Chavez APRN.CNP Work Phone: [facility] Comment on above: Acute sinusitis, rec urrence not specified, unspecified location (Primary Dx) Start: 12-15-2021 End: 12-15-2021 Patient encounter procedure Carmine Montez MD Work Phone: General Surgery Comment on above: Diarrhea of presumed infectious origin (Primary Dx) Start: 11-23-2021 Non-patient / Non-visit Dr. Bob Nunez Work Phone: [facility] Start: 11-23-2021 End: 11-23-[address] Ganga Nunez Work Phone: [facility] Start: 10-24-2021 End: 10-24-[address] Ganga Nunez Work Phone: [facility] Start: 08-18-2021 End: 08-18-2021 Emergency department patient visit Dr. Ganga Nunez Work Phone: [facility] Start: 06-13-2021 Patient encounter status Mery Montez MD Work Phone: [facility] Work Phone: Start: 05-19-2021 End: 05-19-2021 Subsequent hospital visit by physician Jet [facility] Work Phone: Radiology Comment on above: URI, acute [J06.9] Procedures Date Procedure Procedure Detail Performing Clinician Start: 04-28-2025 Urnls dip stick/tablet rgnt auto w/o microscopy Ladarius Mon PA-C Work Phone: Start: 04-25-2025 Urnls dip stick/tablet rgnt auto w/o microscopy Bita Ibrahim ENVIRONMENTAL PROFESSIONAL.E[employer]ATOR [employer] Work Phone: Start: 04-10-2025 Lipid 1996 panel - Serum or Plasma Us 2 Work Phone: Start: 12-13-2024 Urnls dip stick/tablet rgnt auto w/o microscopy [facility] Provider Start: 11-22-2024 MRI of lumbar spine Dr. Ganga Nunez MD Work Phone: Start: 10-28-2024 Urnls dip stick/tablet rgnt auto w/o microscopy Samson Mcmahon MD Work Phone: Start: 10-24-2024 X-ray of lumbosacral spine Dr. Ganga Nunez MD Work Phone: Start: 10-01-2024 Digital breast tomosynthesis bilateral Edwina VAUGHNC Work Phone: Start: 09-30-2024 Radiologic exam chest 2 views Selam wilks ENVIRONMENTAL PROFESSIONAL.ELEVATOR [employer] Work Phone: Start: 09-30-2024 Lipid 1996 panel - Serum or Plasma [facility] Start: 09-23-2024 Colonoscopy Ganga Nunez MD Work Phone: Start: 09-16-2024 Radex ribs uni w/posteroant ch minimum 3 views Ganga Nunez MD Work Phone: Start: 08-26-2024 Ct abdomen & pelvis w/o contrst 1/> body re Shilpi Borrero APRN.E[employer]ATOR [employer], DNP Work Phone: Start: 08-11-2024 Urnls dip stick/tablet rgnt auto w/o microscopy Shilpi Borrero APRN.ELEVATOR [employer], DNP Work Phone: Start: 08-08-2024 Ultrasound elastography of liver Dr. Riki Nunez MD Work Phone: Start: 07-16-2024 Ct abdomen & pelvis w/contrast material Ganga Nunez MD Work Phone: Start: 07-16-2024 Us retroperitoneal real time w/image complete Ganga Nunez MD Work Phone: Start: 07-08-2024 Urnls dip stick/tablet rgnt auto w/o microscopy Ganga Choe APRN.[facility] Work Phone: Start: 06-17-2024 Nitric oxide gas determination Scott Quarles MD Work Phone: Start: 06-16-2024 Bone &/joint imaging whole body Selam Argueta APRN.E[employer]ATOR [employer] Work Phone: Start: 06-11-2024 Us abdominal real time w/image limited Selam Argueta APRN.E[employer]ATOR [employer] Work Phone: Start: 06-10-2024 Noninvasive ear/pulse oximetry multiple deter Scott Quarles MD Work Phone: Start: 06-10-2024 Brncdilat rspse spmtry pre&post-brncdilat admn Scott Quarles MD Work Phone: Start: 05-13-2024 Urnls dip stick/tablet rgnt auto w/o microscopy Shiloh Paez APRN.E[employer]ATOR [employer] Work Phone: Start: 03-25-2024 Urnls dip stick/tablet rgnt auto w/o microscopy Selam Argueta APRN.ELEVATOR [employer] Work Phone: Start: 03-13-2024 Radex foot complete minimum 3 views Edwina Khoury PA-C Work Phone: Start: 01-03-2024 Urnls dip stick/tablet rgnt auto w/o microscopy Brielle TELLO Work Phone: Start: 12-05-2023 CT of upper limb without contrast Dr. Bob Nunez Work Phone: Start: 10-10-2023 Radex fingr minimum 2 views Ganga bee MD Work Phone: Start: 10-10-2023 Ecg routine ecg w/least 12 lds i&r only [facility] Provider Start: 08-30-2023 CT angiography of chest with contrast Dr. Ganga Nunez Work Phone: Start: 06-18-2023 Plain X-ray of hip Dr. Ganga Nunez Work Phone: Start: 06-18-2023 Total replacement of right hip joint Dr. Ganga Nunez Work Phone: Start: 06-14-2023 Dual energy X-ray absorptiometry Dr. Riki Nunez Work Phone: Start: 06-08-2023 Screening mammography bi 2-view breast inc cad Bulk Order Provider Start: 05-17-2023 Nasal Screen MRSA/MSSA Dr. Ganga Nunez Work Phone: Start: 03-20-2023 Ct thorax w/o contrast material Liz Quarles MD Work Phone: Start: 11-13-2022 Radex spine lumbosacral 2/3 views Virginia Gao DO Work Phone: Start: 10-09-2022 STREP A MOLECULAR (POC) Edwina Khoury PA-C Work Phone: Start: 10-09-2022 Lipid 1996 panel - Serum or Plasma Ganga Nunez MD Work Phone: Start: 09-21-2022 Cardiovascular stress test using pharmacologic stress agent Dr. Ganga Nunez Work Phone: Start: 09-05-2022 Arthrocentesis aspir&/inj major jt/bursa w/o us Jovani Franz MD Work Phone: Start: 08-18-2022 COVID WITH FLUA+B, ROUTINE Ganga tirado MD Work Phone: Start: 08-18-2022 Urnls dip stick/tablet rgnt auto w/o microscopy Ganga Nunez MD Work Phone: Start: 08-14-2022 Plain chest X-ray Dr. Ganga Nunez Work Phone: Start: 07-24-2022 Urnls dip stick/tablet rgnt auto w/o microscopy Angelina R Abilio HAZEL Work Phone: Start: 06-14-2022 Plain X-ray of shoulder Dr. Ganga Nunez Work Phone: Start: 05-05-2022 Esophagogastroduodenoscopy transoral diagnostic Carmine Montez MD Work Phone: Start: 05-05-2022 Colonoscopy flx dx w/collj spec when pfrmd Carmine Montez MD Work Phone: Start: 05-05-2022 Colonoscopy Carmine Montez MD Work Phone: Start: 04-27-2022 Mammography Mammography Coordinator Start: 04-11-2022 ALLERGEN SKIN TEST-INHALENT 40 Salome Wong MD Work Phone: Start: 04-05-2022 CT of upper limb without contrast Dr. Bob Nunez Work Phone: Start: 03-20-2022 Noninvasive ear/pulse oximetry multiple deter Scott Quarles MD Work Phone: Start: 03-13-2022 Ct thorax w/o contrast material Liz Quarles MD Work Phone: Start: 02-22-2022 Mra head w/o contrst material Reynaldo Ruelas ENVIRONMENTAL PROFESSIONAL.ELEVATOR [employer] Work Phone: Start: 02-03-2022 Ct head/brain w/o contrast material Ganga Nunez MD Work Phone: Start: 11-23-2021 Cardiovascular stress test using pharmacologic stress agent Dr. Ganga Nunez Work Phone: Start: 08-18-2021 CT angiography of chest with contrast Dr. Ganga Nunez Work Phone: Start: 08-18-2021 Plain chest X-ray Dr. Ganga Nunez Work Phone: Start: 08-18-2021 Respiratory Panel (PCR) Dr. Ganga Nunez Work Phone: Start: 05-19-2021 Radiologic exam chest 2 views Mateo Wor dmitriy ENVIRONMENTAL PROFESSIONAL.ELEVATOR [employer] Work Phone: Start: 04-14-2021 Mammography Carmine Montez MD Work Phone: Start: 09-19-2019 Colonoscopy Carmine Montez MD Work Phone: Start: 06-22-2017 End: 06-22-2017 Ecg routine ecg w/least 12 lds w/i&r Ashu Menendez MD Start: 06-22-2017 End: 06-22-2017 Follow Up Appt 6 months Ashu Menendez MD Start: 06-22-2017 End: 06-22-2017 MMM Ashu Menendez MD Start: 06-22-2017 End: 06-22-2017 Dietary management [...] cardiovascular examination Pre-op cardiovascular exam Fe Blair Appendectomy DR PHILLIP Gregory MD Brain structure (body structure) DR PHILLIP CORTEZ MD Comment on above: hydrocephalus Colostomy DR PHILLIP Gregory MD Comment on above: reversal Hernia repair DR PHILLIP LIPSCOMB MD Intestinal structure (body structure) DR PHILLIP CORTEZ MD Comment on above: bowel resection w/ colostomy Lateral epicondylitis (disorder) DR PHILLIP CORTEZ MD Comment on above: right Ligation of fallopian tube D R PHILLIP CORTEZ MD Comment on above: x2 Nasal Screen MRSA/MSSA Dr. Annette Nunez Work Phone: Repair of musculoten dinous cuff of shoulder DR PHILLPI CORTEZ MD Comment on above: right SARS-CoV-2 & FLU Antigen (Rapid) Dr. Ganga Nunez Work Phone: Tendon structure (body structure) DR PHILLIP CORTEZ MD Comment on above: bicep repair Total replacement of hip DR PHILLIP CORTEZ MD Comment on above: bilateral Total shoulder replacement D R PHILLIP CORTEZ MD Comment on above: right Plan of Treatment Date Care Activity Detail Author Start: 2033 RSV Vaccine (1 - 1-dose 75+ series) RSV Vaccine (1 - 1-dose 75+ series) [facility] Start: 04-10-2030 Lipid panel Lipid Screening [facility] Start: 03-12-2030 Urine microalbumin profile [facility] Start: 09-30-2029 Lipid panel Lipid Screening [facility] Start: 09-23-2029 Screening for malignant neoplasm of colon [facility] Start: 04-10-2028 Diabetes Screening Diabetes Screening [facility] Start: 10-09-2027 Lipid 1996 panel - Serum or Plasma Lipid Screening [facility] Start: 10-09-2027 Lipid panel Lipid Screening [facility] Start: 10-09-2027 LIPID SCREEN LIPID SCREEN [facility] Start: 09-30-2027 Diabetes Screening Diabetes Screening [facility] Start: 07-10-2027 Diabetes Screening Diabetes Screening [facility] Start: 05-30-2027 Diabetes Screening Diabetes Screening [facility] Start: 05-05-2027 Colonoscopy COLONOSCOPY [facility] Start: 05-05-2027 COLORECTAL CANCER SCREENING COLORECTAL CANCER SCREENING [facility] Start: 05-05-2027 Screening for malignant neoplasm of colon [facility] Start: 04-19-2027 LIPID SCREEN LIPID SCREEN [facility] Start: 03-25-2027 Diabetes Screening Diabetes Screening [facility] Start: 02-13-2027 Diabetes Screening Diabetes Screening [facility] Start: 01-24-2027 LIPID SCREEN LIPID SCREEN [facility] Start: 10-10-2026 Diabetes Screening Diabetes Screening [facility] Start: 07-26-2026 LIPID SCREEN LIPID SCREEN [facility] Start: 06-08-2026 Diabetes Screening Diabetes Screening [facility] Start: 04-24-2026 DIABETES SCREEN DIABETES SCREEN [facility] Start: 04-24-2026 Diabetes Screening Diabetes Screening [facility] Start: 04-10-2026 Annual PCP Team Chronic Disease Visit Annual PCP Team Chronic Disease Visit [facility] Start: 03-30-2026 Annual PCP Team Chronic Disease Visit Annual PCP Team Chronic Disease Visit [facility] Start: 03-30-2026 Shingrix Vaccine (1 of 2) Shingrix Vaccine (1 of 2) [facility] Comment on above: Postponed from 2008 (Insurance Cov erage) Start: 01-16-2026 BP Controlled (<130/80) BP Controlled (<130/80) [facility] Start: 12-16-2025 BP Controlled (<130/80) BP Controlled (<130/80) [facility] Start: 10-19-2025 End: 10-19-2025 Patient encounter procedure 10/19/2025 9:00 AM EST Office Visit Neurology [address] [place], [place] [phone] Hi Waddell Jr., MD [address] [place], [place] [id number] 6 month follow up Neurology Comment on above: 6 month follow up Start: 10-09-2025 DIABETES SCREEN DIABETES SCREEN [facility] Start: 10-02-2025 BP Controlled (<130/80) BP Controlled (<130/80) [facility] Start: 10-01-2025 Screening for malignant neoplasm of breast Mammogram Screening [facility] Start: 10-01-2025 End: 10-01-2025 Patient encounter procedure 10/01/2025 9:00 AM EST Office Visit [facility] [place] [address] [facility], [place] [phone] Edwina Khoury PA-C [address] [place], [place] [id number] Medicare Wellness [facility] [place] Comment on above: Medicare Wellness Start: 09-30-2025 Annual PCP Team Chronic Disease Visit Annual PCP Team Chronic Disease Visit [facility] Start: 09-30-2025 BP Controlled (<130/80) BP Controlled (<130/80) [facility] Start: 09-30-2025 Covid-19 Vaccine ( season) Covid-19 Vaccine ( season) [facility] Comment on above: Postponed from 05/04/2024 (Declined at t his time) Start: 09-30-2025 Medicare Annual Wellness Visit Medicare Annual Wellness Visit [facility] Start: 09-28-2025 BP Controlled (<130/80) BP Controlled (<130/80) [facility] in Start: 09-18-2025 End: 12-18-2025 25-hydroxyvitamin D3 [Mass/volume] in Serum or Plasma VITAMIN D 25 HYDROXY Lab Routine Vitamin D deficiency Expected: 09/18/2025, Expires: 12/18/2025 [facility] Comment on above: Expected: 09/18/2025, Expires: Start: 09-18-2025 BP Controlled (<130/80) BP Controlled (<130/80) [facility] in Start: 09-18-2025 End: 12-18-2025 CBC W Auto Differential panel - Blood COMPLETE BLOOD COUNT AND DIFFERENTIAL Lab Routine Chronic anxiety Fatty liver Expected: 09/18/2025, Expires: 12/18/2025 [facility] Comment on above: Expected: 09/18/2025, Expires: Start: 09-18-2025 End: 12-18-2025 Comprehensive metabolic 2000 panel - Serum or Plasma COMPREHENSIVE METABOLIC PANEL Lab Routine Hypertension, essential Mixed hyperlipidemia Fatty liver Expected: 09/18/2025, Expires: 12/18/2025 [facility] Comment on above: Expected: 09/18/2025, Expires: Start: 09-18-2025 End: 12-18-2025 Hemoglobin A1c in Blood HEMOGLOBIN A1C Lab Routine Elevated hemoglobin A1c Expected: 09/18/2025, Expires: 12/18/2025 [facility] Comment on above: Expected: 09/18/2025, Expires: Start: 09-18-2025 End: 12-18-2025 LIPID PANEL, NONFASTING LIPID PANEL, NONFASTING Lab Routine Hypertension, essential Mixed hyperlipidemia Ascending aorta dilatation Thoracic aortic aneurysm without rupture, unspecified part Expected: 09/18/2025, Expires: 12/18/2025 [facility] Comment on above: Expected: 09/18/2025, Expires: Start: 09-18-2025 End: 12-18-2025 Thyrotropin [Units/volume] in Serum or Plasma THYROID STIMULATING HORMONE Lab Routine Chronic anxiety Medication management Expected: 09/18/2025, Expires: 12/18/2025 [facility] Comment on above: Expected: 09/18/2025, Expires: 6 Start: 09-18-2025 End: 12-18-2025 Urinalysis complete panel - Urine URINALYSIS, WITH MICROSCOPIC Lab Routine Hypertension, essential Mixed hyperlipidemia Expected: 09/18/2025, Expires: 12/18/2025 [facility] Comment on above: Expected: 09/18/2025, Expires: 6 Start: 09-17-2025 BP Controlled (<130/80) BP Controlled (<130/80) [facility] Start: 09-16-2025 Annual PCP Team Chronic Disease Visit Annual PCP Team Chronic Disease Visit [facility] Start: 08-11-2025 BP Controlled (<130/80) BP Controlled (<130/80) [facility] Start: 08-11-2025 Screening for malignant neoplasm of breast Mammogram Screening [facility] Start: 07-24-2025 BP Controlled (<130/80) BP Controlled (<130/80) [facility] Start: 07-24-2025 End: 07-24-2025 Patient encounter procedure Pulmonary Medicine Comment on above: 6 MTH F/U POST COVID Start: 07-17-2025 BP Controlled (<130/80) BP Controlled (<130/80) [facility] Start: 07-15-2025 Annual PCP Team Chronic Disease Visit Annual PCP Team Chronic Disease Visit [facility] Start: 07-08-2025 BP Controlled (<130/80) BP Controlled (<130/80) [facility] Start: 05-30-2025 Annual PCP Team Chronic Disease Visit Annual PCP Team Chronic Disease Visit [facility] Start: 05-16-2025 DIABETES SCREEN DIABETES SCREEN [facility] Start: 05-12-2025 End: 08-11-2025 Bacteria identified in Urine by Culture BACTERIAL CULTURE, URINE Microbiology Routine Expected: 05/12/2025 (Approximate), Expires: 08/11/2025 [facility] Work Phone: Comment on above: Expected: 05/12/2025 (Approximate), Expi res: 08/11/2025 Start: 05-04-2025 Influenza vaccination [facility] Start: 04-28-2025 End: 04-28-2025 Patient encounter procedure Urology Comment on above: 6 Mo Follow up FU (6 mo): Gross hem aturia with cystocopy 10/28/24. [facility] Start: 04-27-2025 End: 04-27-2025 Patient encounter procedure 04/27/2025 10:30 AM EDT Office Visit Urology [address] [place], [place] [address] Shilpi Borrero APRN.[employer], DNP [address] [place] [id number] 6 Mo Follow up Urology Comment on above: 6 Mo Follow up Start: 04-13-2025 End: 04-13-2025 Patient encounter procedure 04/13/2025 10:00 AM EDT Appointment Radiology [address] [place] [id number] 64y/o female with right 5.9cm renal cyst noted on prior CTU. Please eval for stability. Radiology Comment on above: 64y/o female with right 5.9cm renal cyst noted on prior CTU. Please eval for stability. Start: 04-12-2025 End: 11-12-2025 US Kidney - bilateral and Urinary bladder US KIDNEY/BLADDER Radiology Routine Renal cyst Expected: 04/12/2025 (Approximate), Expires: 11/12/2025 [facility] Work Phone: Comment on above: Expected: 04/12/2025 (Approximate), Expi res: 11/12/2025 Start: 03-30-2025 End: 06-29-2025 Hemoglobin A1c in Blood HEMOGLOBIN A1C Lab Routine Elevated hemoglobin A1c Expected: 03/30/2025, Expires: 06/29/2025 [facility] Work Phone: Comment on above: Expected: 03/30/2025, Expires: Start: 03-30-2025 End: 06-29-2025 Hepatic function 2000 panel - Serum or Plasma HEPATIC FUNCTION PNL Lab Routine Hypertension, essential Mixed hyperlipidemia Fatty liver Expected: 03/30/2025, Expires: 06/29/2025 [facility] Comment on above: Expected: 03/30/2025, Expires: Start: 03-30-2025 End: 06-29-2025 LIPID PANEL, NONFASTING LIPID PANEL, NONFASTING Lab Routine Mixed hyperlipidemia Expected: 03/30/2025, Expires: 06/29/2025 [facility] Comment on above: Expected: 03/30/2025, Expires: Start: 03-30-2025 End: 03-30-2025 Patient encounter procedure [facility] Comment on above: 6 month f/u Start: 03-25-2025 Annual PCP Team Chronic Disease Visit Annual PCP Team Chronic Disease Visit [facility] Start: 03-25-2025 BP Controlled (<130/80) BP Controlled (<130/80) [facility] Start: 03-13-2025 Annual PCP Team Chronic Disease Visit Annual PCP Team Chronic Disease Visit [facility] Start: 03-12-2025 End: 03-12-2025 Patient encounter procedure Neurology Comment on above: 6 month follow up Start: 03-02-2025 Influenza vaccination Influenza Vaccine (#1) [facility] Comment on above: Postponed from 05/04/2024 (Declined at t his time) Start: 02-24-2025 BP Controlled (<130/80) BP Controlled (<130/80) [facility] Start: 02-13-2025 Annual PCP Team Chronic Disease Visit Annual PCP Team Chronic Disease Visit [facility] Start: 01-24-2025 DIABETES SCREEN DIABETES SCREEN [facility] Start: 01-16-2025 End: 01-16-2025 Patient encounter procedure 01/16/2025 8:30 AM EDT Office Visit Pulmonary Medicine [address] [place] [address] Tyler Wray APRN.[employer] [address] [facility] [address] [place] [address] 4 month f/u Pulmonary Medicine Comment on above: 4 month f/u Start: 12-16-2024 End: 12-16-2024 Patient encounter procedure 12/16/2024 10:15 AM EDT Office Visit OB/Gynecology [address] [place] [address] Sarah Lopez APRN.[employer] [address] [place] [address] Vaginal oder OB/Gynecology Comment on above: Vaginal oder Start: 10-28-2024 End: 10-28-2024 Patient encounter procedure 10/28/2024 1:00 PM EST Office Visit Urology [address] [address] Samson Mcmahon Jr., MD [address] [place] [address] Cysto per [facility] Comment on above: Cysto per [facility] Start: 10-13-2024 End: 10-13-2024 Patient encounter procedure 10/13/2024 3:30 PM EST Office Visit Urology [address] [place] [address] Shilpi Borrero, ENVIRONMENTAL PROFESSIONAL.[employer], DNP [address] [facility] [place] [address] 8 WK F/U / CT RESULTS Urology Comment on above: 8 WK F/U / CT RESULTS Start: 10-10-2024 Annual PCP Team Chronic Disease Visit Annual PCP Team Chronic Disease Visit [facility] Start: 10-06-2024 End: 10-06-2024 Patient encounter procedure 10/06/2024 3:40 PM EST Office Visit [facility] [address] [address] Reginaldo Burnett MD [address] [place], [place] [id number] 4 month fu [facility] [place] Comment on above: 4 month fu Start: 10-02-2024 End: 10-02-2024 Patient encounter procedure 10/02/2024 1:40 PM EST Office Visit OB/Gynecology [address] [place], [place] [phone] Tessy Rice MD [address] [place], [place] [id number] Colposcopy of vaginal vault OB/Gynecology Comment on above: Colposcopy of vaginal vault Start: 10-01-2024 End: 10-01-2024 Patient encounter procedure Mammogram Comment on above: alla breast callback per jr Ultrasound needs hema eduled, phone note in for new order, alla breast callback per jr Ultrasound needs hema eduled, Comp- alla breast callback per jr Ultrasound needs hema eduled, requested. Comp- alla breast callback per jr Abnormal mammogram [ R92.8] Comp- alla breast julia lback per jr Start: 09-30-2024 End: 12-30-2024 25-hydroxyvitamin D3 [Mass/volume] in Serum or Plasma [facility] Comment on above: Expected: 09/30/2024, Expires: Start: 09-30-2024 End: 12-30-2024 CBC W Auto Differential panel - Blood [facility] Comment on above: Expected: 09/30/2024, Expires: Start: 09-30-2024 End: 12-30-2024 Comprehensive metabolic 2000 panel - Serum or Plasma [facility] Comment on above: Expected: 09/30/2024, Expires: Start: 09-30-2024 End: 12-30-2024 Hemoglobin A1c in Blood [facility] Comment on above: Expected: 09/30/2024, Expires: Start: 09-30-2024 End: 12-30-2024 LIPID PANEL, NONFASTING [facility] Work Phone: Comment on above: Expected: 09/30/2024, Expires: Start: 09-30-2024 End: 09-30-2024 Patient encounter procedure 09/30/2024 12:20 PM EST Office Visit [facility] [address] [place], [place] [phone] Edwina Khoury PA-C [address] [place], [place] [phone] Medicare wellness [facility] [place] Comment on above: Medicare wellness Start: 09-23-2024 Colonoscopy w/biopsy single/multiple COLONOSCOPY AND BIOPSY [facility] Start: 09-23-2024 Egd transoral biopsy single/multiple EGD BIOPSY SINGLE/MULTIPLE [facility] Start: 09-23-2024 Patient discharge [facility] Start: 09-19-2024 Colonoscopy COLONOSCOPY [facility] Start: 09-19-2024 COLORECTAL CANCER SCREENING COLORECTAL CANCER SCREENING [facility] Start: 09-18-2024 End: 09-18-2024 Patient encounter procedure 09/18/2024 9:15 AM EST Office Visit OB/Gynecology [address] [place] [address] Kimberly Grajeda APRN.[employer] [address] [place] [address] Odor and discharge OB/Gynecology Comment on above: Odor and discharge Start: 09-17-2024 End: 09-17-2024 Patient encounter procedure 09/17/2024 9:00 AM EST Office Visit Pulmonary Medicine [address] [place] [address] Tyler Wray APRN.[employer] [address] [facility] [address] [place] [address] 3 mth f/u Pulmonary Medicine Comment on above: 3 mth f/u Start: 09-16-2024 End: 09-16-2024 Patient encounter procedure 09/16/2024 11:00 AM EST Office Visit [facility] [address] [place] [address] Ganga Nunez MD [address] [place] [address] Medicare Wellness [facility] Comment on above: Medicare Wellness Start: 09-12-2024 End: 12-12-2024 BENZO CONFIRM, URINE [facility] Comment on above: Expected: 09/12/2024, Expires: 5 Start: 09-12-2024 End: 12-12-2024 TOXICOLOGY SCREEN, ROUTINE URINE [facility] Work Phone: Comment on above: Expected: 09/12/2024, Expires: 5 Start: 09-12-2024 End: 09-12-2024 Patient encounter procedure Neurology Comment on above: 3 month follow up Start: 09-03-2024 Advance Directive Discussion Advance Directive Discussion [facility] Start: 08-28-2024 End: 08-28-2024 Patient encounter procedure 08/28/2024 10:00 AM EST Office Visit Neurology [address] [facility] [address] [place], [place] [phone] Hi Waddell Jr., MD [address] [facility] [address] [place] [id number] Sleep Apnea Neurology Comment on above: Sleep Apnea Start: 08-26-2024 End: 08-26-2024 Patient encounter procedure 08/26/2024 10:20 AM EST Appointment Cat Scan [address] [place] [address] CT UROGRAM Cat Scan Comment on above: CT UROGRAM Start: 08-25-2024 End: 09-10-2025 CT Kidney WO and W contrast IV CT UROGRAM WO/W IVCON Radiology Routine Gross hematuria Expected: 08/25/2024, Expires: 09/10/2025 [facility] Comment on above: Expected: 08/25/2024, Expires: 6 Start: 08-11-2024 End: 11-10-2024 Urinalysis complete panel - Urine [facility] Comment on above: Expected: 08/11/2024, Expires: 5 Start: 08-11-2024 End: 08-11-2024 Patient encounter procedure Urology Comment on above: Urinary urgency [R39.15] Start: 08-10-2024 BP Controlled (<130/80) BP Controlled (<130/80) [facility] Start: 08-08-2024 Urine microalbumin profile DTAP,TDAP,TD (4 - Td or Tdap) [facility] Start: 07-28-2024 End: 07-28-2024 Patient encounter procedure 07/28/2024 11:45 AM EST Office Visit OB/Gynecology [address] [place] [address] Kimberly Grajeda APRN.[employer] [address] [place] [address] Vulvar irritation [N90.89] OB/Gynecology Comment on above: Vulvar irritation [N90.89] Start: 07-26-2024 DIABETES SCREEN DIABETES SCREEN [facility] Start: 07-24-2024 End: 07-24-2024 Patient encounter procedure 07/24/2024 3:15 PM EST Office Visit OB/Gynecology [address] [place] [address] Kimberly Grajeda APRN.[employer] [address] [place] [address] f/up OB/Gynecology Comment on above: f/up Start: 07-17-2024 End: 07-17-2024 Patient encounter procedure 07/17/2024 9:30 AM EST Office Visit OB/Gynecology [address] [place] [address] Kimberly Grajeda APRN.[employer] [address] [place] [address] Vaginal odor [N89.8]; PCB (post coital bleeding) [N93.0] OB/Gynecology Comment on above: Vaginal odor [N89.8]; PCB (post coital b leeding) [N93.0] Start: 07-16-2024 End: 07-16-2024 Patient encounter procedure Cat Scan Comment on above: CCN APPROVED LLQ pain [R10.32]; R LQ abdominal pain [R10.31]; PCB (post coital bleeding) [N93.0]; Infection in abdomen (HCC) [K65.9] Start: 07-16-2024 End: 07-16-2024 Patient encounter procedure 07/16/2024 9:15 AM EST Appointment Radiology [address] [place] [address] Gross hematuria [R31.0] Radiology Comment on above: Gross hematuria [R31.0] Start: 07-15-2024 End: 07-15-2024 Patient encounter procedure 07/15/2024 1:40 PM EST Office Visit Family [facility] [address] [place], [place] [phone] Ganga Nunez MD [address] [place] [address] possible hernia [facility] Comment on above: possible hernia Start: 07-14-2024 End: 07-14-2024 Patient encounter procedure 07/14/2024 1:00 PM EST Office Visit Urology [address] [place], [place] [phone] Shilpi Borrero APRN.[employer], DNP [address] [place] [address] Urinary urgency [R39.15] Urology Comment on above: Urinary urgency [R39.15] Start: 07-13-2024 BP Controlled (<130/80) BP Controlled (<130/80) [facility] Start: 07-11-2024 End: 10-10-2024 Bacteria identified in Urine by Culture [facility] Work Phone: Comment on above: Expected: 07/11/2024, Expires: Start: 07-08-2024 End: 10-07-2024 C reactive protein [Mass/volume] in Serum or Plasma C-REACTIVE PROTEIN Lab Routine 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) Generalized osteoarthrosis Fibromyalgia High risk medication use Expected: 07/08/2024, Expires: 10/07/2024 [facility] Work Phone: Comment on above: Expected: 07/08/2024, Expires: Start: 07-08-2024 End: 10-07-2024 CBC W Auto Differential panel - Blood COMPLETE BLOOD COUNT AND DIFFERENTIAL Lab Routine 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) Generalized osteoarthrosis Fibromyalgia High risk medication use Expected: 07/08/2024, Expires: 10/07/2024 [facility] Comment on above: Expected: 07/08/2024, Expires: Start: 07-08-2024 End: 10-07-2024 Comprehensive metabolic 2000 panel - Serum or Plasma COMPREHENSIVE METABOLIC PANEL Lab Routine 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) Generalized osteoarthrosis Fibromyalgia High risk medication use Expected: 07/08/2024, Expires: 10/07/2024 [facility] Comment on above: Expected: 07/08/2024, Expires: Start: 07-08-2024 End: 10-07-2024 Erythrocyte sedimentation rate SEDIMENTATION RATE, WESTERGREN Lab Routine 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) Generalized osteoarthrosis Fibromyalgia High risk medication use Expected: 07/08/2024, Expires: 10/07/2024 [facility] Comment on above: Expected: 07/08/2024, Expires: Start: 07-08-2024 End: 07-08-2024 Patient encounter procedure 07/08/2024 11:00 AM EST Office Visit [facility] [address] [phone] Herber Reed PA-C [address] [place], [place] [phone] 6 week fu [facility] [place] Comment on above: 6 week fu Start: 06-17-2024 End: 09-16-2024 IgE [Units/volume] in Serum or Plasma [facility] Work Phone: Comment on above: Expected: 06/17/2024, Expires: Start: 06-17-2024 End: 06-17-2024 Patient encounter procedure 06/17/2024 8:00 AM EDT Office Visit Pulmonary Medicine [address] [place], [place] [phone] Scott Quarles MD [address] [place] [id number] Shortness of breath getting worse Pulmonary Medicine Comment on above: Shortness of breath getting worse Start: 06-16-2024 End: 06-16-2024 Patient encounter procedure Nuclear Medicine Comment on above: Elevated alkaline phosphatase level [R74 .8] Start: 06-11-2024 End: 06-11-2024 Patient encounter procedure 06/11/2024 8:30 AM EDT Appointment Radiology [address] [place] [address] Elevated alkaline phosphatase level [R74.8] Radiology Comment on above: Elevated alkaline phosphatase level [R74 .8] Start: 06-10-2024 End: 06-10-2024 ambulatory PULM LAB [facility] Comment on above: 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] Start: 06-08-2024 Mammography Mammogram Screening [facility] Start: 06-08-2024 Screening for malignant neoplasm of breast Mammogram Screening [facility] Start: 06-02-2024 End: 09-01-2024 ALK PHOS ISOENZYM BL [facility] Work Phone: Comment on above: Expected: 06/02/2024, Expires: Start: 06-02-2024 End: 06-02-2024 Patient encounter procedure Neurology Comment on above: Sleep Apnea Sleep Apnea, DME is [employer] Start: 05-30-2024 End: 08-29-2024 CBC W Auto Differential panel - Blood [facility] Work Phone: Comment on above: Expected: 05/30/2024, Expires: Start: 05-30-2024 End: 08-29-2024 Urinalysis complete panel - Urine [facility] Comment on above: Expected: 05/30/2024, Expires: Start: 05-30-2024 End: 05-30-2024 Patient encounter procedure 05/30/2024 10:00 AM EDT Office Visit [facility] [address] [place] [address] Selam Argueta APRN.E[employer] [address] [place] [address] [facility] ER follow up rectal bleeding [facility] [place] Comment on above: [facility] ER follow up rectal bleeding Start: 05-26-2024 End: 08-25-2024 Comprehensive metabolic 2000 panel - Serum or Plasma COMPREHENSIVE METABOLIC PANEL Lab Routine 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) Expected: 05/26/2024, Expires: 08/25/2024 [facility] Comment on above: Expected: 05/26/2024, Expires: Start: 05-26-2024 End: 08-25-2024 Hepatitis B virus surface Ag [Presence] in Serum HEPATITIS B SURFACE ANTIGEN Lab Routine 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) Expected: 05/26/2024, Expires: 08/25/2024 [facility] Comment on above: Expected: 05/26/2024, Expires: Start: 05-24-2024 Annual PCP Team Chronic Disease Visit Annual PCP Team Chronic Disease Visit [facility] Start: 05-04-2024 Covid-19 Vaccine ( season) Covid-19 Vaccine ( season) [facility] Start: 05-04-2024 Covid-19 Vaccine ( season) Covid-19 Vaccine ( season) [facility] Start: 05-04-2024 Influenza vaccination [facility] Start: 04-24-2024 ANNUAL PCP TEAM CHRONIC DISEASE VISIT ANNUAL PCP TEAM CHRONIC DISEASE VISIT [facility] Start: 04-24-2024 COVID-19 VACCINE (#1) COVID-19 VACCINE (#1) [facility] Comment on above: Postponed from 1963 (Declined at t his time) Postponed from 10/31 (Declined at this time) Start: 04-24-2024 SHINGRIX VACCINE (1 of 2) SHINGRIX VACCINE (1 of 2) [facility] Comment on above: Postponed from 1977 (Insurance Cov erage) Postponed from 05/02 (Insurance Coverage) Start: 03-26-2024 BP CONTROLLED (<130/80) BP CONTROLLED (<130/80) [facility] in Start: 03-25-2024 End: 03-25-2024 Patient encounter procedure 03/25/2024 3:20 PM EDT Office Visit [facility] [place] [address] [place] [address] Selam Argueta APRN.E[employer]ATOR [employer] [address] [place], [place] [phone] follow up swelling/possible UTI - see my chart message rj [facility] [place] Comment on above: follow up swelling/possible UTI - see my chart message rj Start: 03-25-2024 End: 06-24-2024 Basic metabolic 2000 panel - Serum or Plasma [facility] Work Phone: Comment on above: Expected: 03/25/2024, Expires: Start: 03-13-2024 End: 03-13-2024 Patient encounter procedure 03/13/2024 7:00 AM EDT Office Visit [facility] [address] [place], [place] [phone] Edwina Khoury PA-C [address] [place], [place] [phone] 4 week follow up. HTN, Med check [facility] Comment on above: 4 week follow up. 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 [employer] [address] [place] [address] Sleep Apnea Neurology Comment on above: Sleep Apnea Start: 11-18-2023 BP CONTROLLED (<130/80) BP CONTROLLED (<130/80) [facility] Start: 11-16-2023 ANNUAL PCP TEAM CHRONIC DISEASE VISIT ANNUAL PCP TEAM CHRONIC DISEASE VISIT [facility] Start: 10-09-2023 ANNUAL PCP TEAM CHRONIC DISEASE VISIT ANNUAL PCP TEAM CHRONIC DISEASE VISIT [facility] Start: 09-26-2023 End: 04-24-2024 Ct thorax w/o contrast material [facility] Radiology Routine Lung nodules Expected: 09/26/2023, Expires: 04/24/2024 [facility] Work Phone: Comment on above: Expected: 09/26/2023, Expires: Start: 09-03-2023 Advance Directive Discussion Advance Directive Discussion [facility] Start: 08-21-2023 ANNUAL PCP TEAM CHRONIC DISEASE VISIT ANNUAL PCP TEAM CHRONIC DISEASE VISIT [facility] Start: 08-18-2023 ANNUAL PCP TEAM CHRONIC DISEASE VISIT ANNUAL PCP TEAM CHRONIC DISEASE VISIT [facility] Start: 08-18-2023 BP CONTROLLED (<130/80) BP CONTROLLED (<130/80) [facility] in Start: 06-19-2023 [facility] Start: 06-19-2023 Patient discharge [facility] Start: 06-18-2023 Admission procedure [facility] Start: 06-18-2023 Anesthesia open total hip arthroplasty ANESTH HIP ARTHROPLASTY [facility] Start: 06-18-2023 Arthrp acetblr/prox fem prostc agrft/algrft TOTAL HIP ARTHROPLASTY [facility] Start: 06-18-2023 Following clinical pathway protocol [facility] Start: 06-18-2023 Oxygen therapy [facility] Start: 06-18-2023 Recommendation to continue with treatment [facility] Start: 06-18-2023 Provision of overbed trapeze [facility] Start: 06-18-2023 Ambulation therapy management [facility] Start: 06-18-2023 Application of device [facility] Start: 06-18-2023 Assessment of risk of venous thromboembolism [facility] Start: 06-18-2023 Catheterization of vein [facility] Start: 06-18-2023 Exercises [facility] Start: 06-18-2023 Following clinical pathway protocol [facility] Start: 06-18-2023 Incentive spirometry [facility] Start: 06-18-2023 Introduction of urinary catheter [facility] Start: 06-18-2023 Measuring intake and output [facility] Start: 06-18-2023 Neurovascular assessment [facility] Start: 06-18-2023 Patient education [facility] Start: 06-18-2023 Procedure discontinued [facility] Start: 06-18-2023 Provision of activity privileges [facility] Start: 06-18-2023 Referral to occupational therapist [facility] Start: 06-18-2023 Referral to service [facility] Start: 06-18-2023 Vital signs measurements [facility] Start: 06-18-2023 Wound care [facility] Start: 06-18-2023 [facility] Start: 06-14-2023 Dual energy X-ray absorptiometry Dexa Bone Density Study [facility] Start: 06-14-2023 DXA Bone [Mass/Area] Bone density [facility] Start: 06-01-2023 ANNUAL PCP TEAM CHRONIC DISEASE VISIT ANNUAL PCP TEAM CHRONIC DISEASE VISIT [facility] Start: 05-28-2023 End: 07-28-2023 CBC W Auto Differential panel - Blood CBC + DIFF Lab Routine 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) Expected: 05/28/2023, Expires: 07/28/2023 [facility] Work Phone: Comment on above: Expected: 05/28/2023, Expires: 3 Start: 05-28-2023 End: 07-28-2023 Comprehensive metabolic 2000 panel - Serum or Plasma COMP METABOLIC PANEL Lab Routine 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) Expected: 05/28/2023, Expires: 07/28/2023 [facility] Work Phone: Comment on above: Expected: 05/28/2023, Expires: 3 Start: 05-23-2023 ANNUAL PCP TEAM CHRONIC DISEASE VISIT ANNUAL PCP TEAM CHRONIC DISEASE VISIT [facility] Start: 05-16-2023 ANNUAL PCP TEAM CHRONIC DISEASE VISIT ANNUAL PCP TEAM CHRONIC DISEASE VISIT [facility] Start: 05-04-2023 Covid-19 Vaccine () Covid-19 Vaccine () [facility] Start: 05-04-2023 Influenza vaccination [facility] Start: 2023 ADVANCE DIRECTIVE DISCUSSION ADVANCE DIRECTIVE DISCUSSION [facility] Start: 2023 BONE DENSITY BONE DENSITY [facility] Start: 2023 Bone Density Screening Bone Density Screening [facility] Start: 04-27-2023 Mammography [facility] Start: 04-24-2023 End: 06-24-2023 Sjogrens syndrome-A extractable nuclear Ab [Units/volume] in Serum [facility] Work Phone: Comment on above: Expected: 04/24/2023, Expires: 3 Start: 04-24-2023 End: 06-24-2023 Sjogrens syndrome-B extractable nuclear Ab [Units/volume] in Serum [facility] Work Phone: Comment on above: Expected: 04/24/2023, Expires: 3 Start: 04-24-2023 End: 06-24-2023 Thyrotropin [Units/volume] in Serum or Plasma [facility] Work Phone: Comment on above: Expected: 04/24/2023, Expires: 3 Start: 04-24-2023 End: 06-24-2023 Thyroxine (T4) free [Mass/volume] in Serum or Plasma [facility] Work Phone: Comment on above: Expected: 04/24/2023, Expires: 3 Start: 04-06-2023 ANNUAL PCP TEAM CHRONIC DISEASE VISIT ANNUAL PCP TEAM CHRONIC DISEASE VISIT [facility] Start: 04-06-2023 SHINGRIX VACCINE (1 of 2) SHINGRIX VACCINE (1 of 2) [facility] Comment on above: Postponed from 2008 (Insurance Cov erage) Start: 03-20-2023 End: 04-19-2023 Ct thorax w/o contrast material CT CHEST WO IVCON Radiology Routine Lung nodules Expected: 03/20/2023, Expires: 04/19/2023 [facility] Work Phone: Comment on above: Expected: 03/20/2023, Expires: 3 Start: 03-12-2023 End: 03-07-2024 Ct thorax w/o contrast material CT CHEST WO IVCON Radiology Routine Lung nodules Expected: 03/12/2023, Expires: 03/07/2024 [facility] Work Phone: Comment on above: Expected: 03/12/2023, Expires: 4 Start: 02-07-2023 End: 04-09-2023 SANIYA BY IFA SCREEN [facility] Work Phone: Comment on above: Expected: 02/07/2023, Expires: 3 Start: 02-07-2023 End: 04-09-2023 Cyclic citrullinated peptide IgG Ab [Units/volume] in Serum or Plasma [facility] Work Phone: Comment on above: Expected: 02/07/2023, Expires: 3 Start: 02-07-2023 End: 04-09-2023 Tissue transglutaminase Ab panel - Serum [facility] Work Phone: Comment on above: Expected: 02/07/2023, Expires: 3 Start: 02-01-2023 ANNUAL PCP TEAM CHRONIC DISEASE VISIT ANNUAL PCP TEAM CHRONIC DISEASE VISIT [facility] Start: 02-01-2023 BP CONTROLLED (<130/80) BP CONTROLLED (<130/80) [facility] Start: 01-24-2023 ANNUAL PCP TEAM CHRONIC DISEASE VISIT ANNUAL PCP TEAM CHRONIC DISEASE VISIT [facility] Start: 01-24-2023 BP CONTROLLED (<130/80) BP CONTROLLED (<130/80) [facility] Start: 11-15-2022 End: 01-15-2023 CBC W Auto Differential panel - Blood CBC + DIFF Lab Routine Leukocytosis, unspecified type Expected: 11/15/2022, Expires: 01/15/2023 [facility] Work Phone: Comment on above: Expected: 11/15/2022, Expires: 3 Start: 10-09-2022 End: 12-09-2022 Cobalamin (Vitamin B12) [Mass/volume] in Serum or Plasma [facility] Work Phone: Comment on above: Expected: 10/09/2022, Expires: 3 Start: 10-09-2022 End: 12-09-2022 Comprehensive metabolic 2000 panel - Serum or Plasma [facility] Work Phone: Comment on above: Expected: 10/09/2022, Expires: 3 Start: 10-09-2022 End: 12-09-2022 LIPID PANEL, NONFASTING [facility] Work Phone: Comment on above: Expected: 10/09/2022, Expires: 3 Start: 10-09-2022 End: 12-09-2022 Thyrotropin [Units/volume] in Serum or Plasma [facility] Work Phone: Comment on above: Expected: 10/09/2022, Expires: 3 Start: 10-09-2022 End: 12-09-2022 Thyroxine (T4) free [Mass/volume] in Serum or Plasma [facility] Work Phone: Comment on above: Expected: 10/09/2022, Expires: 3 Start: 08-14-2022 End: 08-14-2022 [facility] Work Phone: Start: 07-26-2022 ANNUAL PCP TEAM CHRONIC DISEASE VISIT ANNUAL PCP TEAM CHRONIC DISEASE VISIT [facility] Start: 07-26-2022 COVID-19 VACCINE (#1) COVID-19 VACCINE (#1) [facility] Comment on above: Postponed from 1963 (Declined at t his time) Postponed from 10/31 (Declined at this time) Start: 07-26-2022 COVID-19 VACCINE (1) COVID-19 VACCINE (1) [facility] Comment on above: Postponed from 1963 (Declined at t his time) Start: 06-15-2022 Patient discharge [facility] Work Phone: Start: 06-14-2022 Application of intermittent pneumatic compression device [facility] Work Phone: Start: 06-14-2022 Following clinical pathway protocol [facility] Work Phone: Start: 06-14-2022 Anes arthroscopic total shoulder replacement ANESTH SHOULDER REPLACEMENT [facility] Work Phone: Start: 06-14-2022 Arthroplasty glenohumeral joint total shoulder RECONSTRUCT SHOULDER JOINT [facility] Work Phone: Start: 06-14-2022 Injection aa&/strd brachial plexus NJX AA&/STRD BRACH PLEXUS [facility] Work Phone: Start: 06-14-2022 Ambulation therapy management [facility] Work Phone: Start: 06-14-2022 Application of device [facility] Work Phone: Start: 06-14-2022 Assessment of risk of venous thromboembolism [facility] Work Phone: Start: 06-14-2022 Catheterization of vein [facility] Work Phone: Start: 06-14-2022 Consultation [facility] Work Phone: Start: 06-14-2022 Following clinical pathway protocol [facility] Work Phone: Start: 06-14-2022 Incentive spirometry [facility] Work Phone: Start: 06-14-2022 Introduction of urinary catheter [facility] Work Phone: Start: 06-14-2022 Measuring intake and output [facility] Work Phone: Start: 06-14-2022 Neurovascular assessment [facility] Work Phone: Start: 06-14-2022 Patient education [facility] Work Phone: Start: 06-14-2022 Procedure discontinued [facility] Work Phone: Start: 06-14-2022 Provision of activity privileges [facility] Work Phone: Start: 06-14-2022 Referral to occupational therapist [facility] Work Phone: Start: 06-14-2022 Vital signs measurements [facility] Work Phone: Start: 06-14-2022 Wound care [facility] Work Phone: Start: 06-14-2022 [facility] Work Phone: Start: 06-14-2022 Admission procedure [facility] Work Phone: Start: 06-14-2022 Medication education [facility] Work Phone: Start: 06-13-2022 BP CONTROLLED (<130/80) BP CONTROLLED (<130/80) [facility] Start: 05-16-2022 End: 07-16-2022 Amylase [Enzymatic activity/volume] in Serum or Plasma [facility] Work Phone: Comment on above: Expected: 05/16/2022, Expires: 2 Start: 05-16-2022 End: 07-16-2022 CBC W Auto Differential panel - Blood [facility] Work Phone: Comment on above: Expected: 05/16/2022, Expires: 2 Start: 05-16-2022 End: 07-16-2022 Comprehensive metabolic 2000 panel - Serum or Plasma [facility] Work Phone: Comment on above: Expected: 05/16/2022, Expires: 2 Start: 05-16-2022 End: 07-16-2022 Lipase [Enzymatic activity/volume] in Serum or Plasma [facility] Work Phone: Comment on above: Expected: 05/16/2022, Expires: 2 Start: 05-16-2022 End: 07-16-2022 Urinalysis complete panel - Urine [facility] Work Phone: Comment on above: Expected: 05/16/2022, Expires: 2 Start: 05-04-2022 Influenza vaccination INFLUENZA (#1) [facility] Start: 04-14-2022 Mammography MAMMOGRAM [facility] Start: 04-06-2022 End: 06-06-2022 25-hydroxyvitamin D3 [Mass/volume] in Serum or Plasma VITAMIN D 25 HYDROXY Lab Routine Vitamin D deficiency Expected: 04/06/2022, Expires: 06/06/2022 [facility] Work Phone: Comment on above: Expected: 04/06/2022, Expires: 2 Start: 04-06-2022 End: 06-06-2022 CBC W Auto Differential panel - Blood CBC + DIFF Lab Routine Medication management Expected: 04/06/2022, Expires: 06/06/2022 [facility] Work Phone: Comment on above: Expected: 04/06/2022, Expires: 2 Start: 04-06-2022 End: 06-06-2022 LIPID PANEL, NONFASTING LIPID PANEL, NONFASTING Lab Routine Hypertension, essential Mixed hyperlipidemia Expected: 04/06/2022, Expires: 06/06/2022 [facility] Work Phone: Comment on above: Expected: 04/06/2022, Expires: 2 Start: 04-06-2022 End: 06-06-2022 Thyrotropin [Units/volume] in Serum or Plasma TSH BLD Lab Routine Cold intolerance Heat intolerance Expected: 04/06/2022, Expires: 06/06/2022 [facility] Work Phone: Comment on above: Expected: 04/06/2022, Expires: 2 Start: 04-06-2022 End: 06-06-2022 Thyroxine (T4) free [Mass/volume] in Serum or Plasma T4 FREE/FREE THYROX Lab Routine Cold intolerance Heat intolerance Expected: 04/06/2022, Expires: 06/06/2022 [facility] Work Phone: Comment on above: Expected: 04/06/2022, Expires: 2 Start: 2018 RSV Vaccine (1 - 1-dose 60+ series) RSV Vaccine (1 - 1-dose 60+ series) [facility] Start: 2018 RSV Vaccine (1 - Risk 60-74 years 1-dose series) RSV Vaccine (1 - Risk 60-74 years 1-dose series) [facility] Start: 12-24-2017 End: 12-24-2017 Appointment Appointment [facility] Work Phone: Start: 06-22-2017 End: 06-22-2017 Follow Up Appt 6 months Follow Up Appt 6 months [facility] Work Phone: Start: 06-22-2017 End: 06-22-2017 MMM MMM [facility] Work Phone: Start: 06-22-2017 End: 06-22-2017 Appointment Appointment [facility] Work Phone: Start: 06-02-2017 End: 05-14-2017 Ct thorax w/contrast material CT Chest with Contrast [facility] Work Phone: Start: 05-31-2016 End: 05-31-2016 Follow Up Appt 1 year Follow Up Appt 1 year [facility] Work Phone: Start: 05-31-2016 End: 05-31-2016 PFM PFM [facility] Work Phone: Start: 04-14-2016 End: 04-14-2016 Ct thorax w/contrast material CT Chest with Contrast [facility] Work Phone: Start: 04-06-2016 End: 04-06-2016 Ecg routine ecg w/least 12 lds w/i&r EKG (In office) [facility] Work Phone: Start: 04-06-2016 End: 04-06-2016 Echocardiography Echocardiogram (complete) [facility] Work Phone: Start: 04-06-2016 End: 04-06-2016 Follow Up Appt 6 weeks Follow Up Appt 6 weeks [facility] Work Phone: Start: 04-06-2016 End: 04-06-2016 MMM MMM [facility] Work Phone: Start: 04-06-2016 End: 04-06-2016 Nuclear stress test -Lexiscan Nuclear stress test -Lexiscan [facility] Work Phone: Start: 2008 SHINGRIX VACCINE (1 of 2) SHINGRIX VACCINE (1 of 2) [facility] Start: 2003 COLOGUARD (FIT-DNA) COLOGUARD (FIT-DNA) [facility] Start: [address] COLONOGRAPHY [facility] Start: 2003 FECAL OCCULT BLOOD FECAL OCCULT BLOOD [facility] Start: 2003 Screening for malignant neoplasm of colon [facility] Start: 2003 SIGMOIDOSCOPY SIGMOIDOSCOPY [facility] Start: 1977 Shingrix Vaccine (1 of 2) Shingrix Vaccine (1 of 2) [facility] Start: 1976 HIV SCREENING HIV SCREENING [facility] Start: 1963 Covid-19 Vaccine (#1) Covid-19 Vaccine (#1) [facility] Start: 1958 COVID-19 VACCINE (#1) COVID-19 VACCINE (#1) [facility] Bacteria identified in Urine by Culture URINE CULTURE Microbiology Routine Urinary frequency Ordered: 07/24/2022 [facility] Work Phone: Comment on above: Ordered: 07/24/2022 Bacteria identified in Urine by Culture URINE CULTURE Microbiology Routine Urinary frequency 01/03/2024 4:18 PM EDT [facility] Work Phone: Bacteria identified in Urine by Culture URINE CULTURE Microbiology Routine Urinary frequency Ordered: 05/13/2024 [facility] Work Phone: Comment on above: Ordered: 05/13/2024 Bacteria identified in Urine by Culture URINE CULTURE Microbiology Routine Burning with urination Ordered: 07/08/2024 [facility] Work Phone: Comment on above: Ordered: 07/08/2024 Bacteria identified in Urine by Culture BACTERIAL CULTURE, URINE Microbiology Routine Urgency of urination Ordered: 12/13/2024 [facility] Work Phone: Comment on above: Ordered: 12/13/2024 Bacteria identified in Urine by Culture BACTERIAL CULTURE, URINE Microbiology Routine Dysuria 12/16/2024 10:59 AM EDT [facility] Bacteria identified in Urine by Culture BACTERIAL CULTURE, URINE Microbiology Routine Urinary frequency Ordered: 04/25/2025 [facility] Work Phone: Comment on above: Ordered: 04/25/2025 BACTERIAL VAGINOSIS NAAT BACTERI AL VAGINOSIS NAAT Lab Routine Vaginal discharge 12/10/2023 2:02 PM EDT [facility] Work Phone: BACTERIAL VAGINOSIS NAAT BACTERI AL VAGINOSIS NAAT Lab Routine Vaginal odor 03/25/2024 3:32 PM EDT [facility] BACTERIAL VAGINOSIS NAAT BACTERI AL VAGINOSIS NAAT Lab Routine Vaginal discharge Ordered: 05/13/2024 [facility] Comment on above: Ordered: 05/13/2024 BACTERIAL VAGINOSIS NAAT BACTERI AL VAGINOSIS NAAT Lab Routine Vaginal odor PCB (post coital bleeding) Vaginal burning 07/17/2024 9:50 AM EST [facility] Work Phone: BACTERIAL VAGINOSIS NAAT BACTERI AL VAGINOSIS NAAT Lab Routine Vaginal discharge Vaginal odor 09/18/2024 9:19 AM EST [facility] Work Phone: BACTERIAL VAGINOSIS NAAT BACTERI AL VAGINOSIS NAAT Lab Routine Vaginal discharge Ordered: 12/13/2024 [facility] Comment on above: Ordered: 12/13/2024 BACTERIAL VAGINOSIS NAAT BACTERI AL VAGINOSIS NAAT Lab Routine Vaginal odor Vaginal discharge 12/16/2024 11:17 AM EDT [facility] Biopsy vulva/perineu m 1 lesion spx BIOPSY OF VULVA Procedures Routine Vulvar irritation Ordered: 07/24/2024 [facility] Work Phone: Comment on above: Ordered: 07/24/2024 Blood chemistry [facility] Work Phone: LONA/TRICHOMONAS NAAT LONA /TRICHOMONAS NAAT Lab Routine Vaginal discharge 12/10/2023 2:02 PM EDT [facility] Work Phone: LONA/TRICHOMONAS NAAT LONA /TRICHOMONAS NAAT Lab Routine Vaginal odor 03/25/2024 3:32 PM EDT [facility] LONA/TRICHOMONAS NAAT LONA /TRICHOMONAS NAAT Lab Routine Vaginal discharge Ordered: 05/13/2024 [facility] Comment on above: Ordered: 05/13/2024 LONA/TRICHOMONAS NAAT LONA /TRICHOMONAS NAAT Lab Routine Vaginal odor PCB (post coital bleeding) Vaginal burning 07/17/2024 9:50 AM EST [facility] LONA/TRICHOMONAS NAAT LONA /TRICHOMONAS NAAT Lab Routine Vaginal discharge Vaginal odor 09/18/2024 9:19 AM EST [facility] LONA/TRICHOMONAS NAAT LONA /TRICHOMONAS NAAT Lab Routine Vaginal discharge Ordered: 12/13/2024 [facility] Comment on above: Ordered: 12/13/2024 LONA/TRICHOMONAS NAAT LONA /TRICHOMONAS NAAT Lab Routine Vaginal odor Vaginal discharge 12/16/2024 11:17 AM EDT [facility] Work Phone: Chlamydia trachomatis+Neisseria gonorrhoeae DNA [Presence] in Unspecified specimen by MICHELLE with probe detection GONORRHEA/CHLAMYDIA NAAT Lab Routine Vaginal discharge 12/10/2023 2:02 PM EDT [facility] Work Phone: Clostridioides diffi cile toxin genes [Presence] in Stool by MICHELLE with probe detection C. DIFFICILE PCR Lab Routine Diarrhea of presumed infectious origin Ordered: 12/15/2021 [facility] Work Phone: Comment on above: Ordered: 12/15/2021 End: 12-15-2022 COLONOSCOPY DIAGNOSTIC COLONOSCOPY DIAGNOSTIC Endoscopy Routine Diarrhea of presumed infectious origin 1 Occurrences starting 12/15/2021 until 12/15/2022 [facility] Work Phone: Comment on above: 1 Occurrences starting 12/15/2021 until 12/15/2022 COLPOSCOPY COLPOSCOPY Proce dures Routine Vaginal high risk human papillomavirus (HPV) DNA test positive Ordered: 09/26/2024 [facility] Work Phone: Comment on above: Ordered: 09/26/2024 COLPOSCOPY COLPOSCOPY Proce dures Routine Vaginal high risk human papillomavirus (HPV) DNA test positive Ordered: 10/02/2024 [facility] Work Phone: Comment on above: Ordered: 10/02/2024 COVID & INFLUENZA A/ B & RSV PCR, ROUTINE COVID & INFLUENZA A/B & RSV PCR, ROUTINE Microbiology Routine URI with cough and congestion Ordered: 03/28/2025 [facility] Work Phone: Comment on above: Ordered: 03/28/2025 End: 08-14-2025 CT Abdomen and Pelvis W contrast IV CT ABD/PEL W IVCON Radiology STAT LLQ pain RLQ abdominal pain PCB (post coital bleeding) Infection in abdomen (HCC) 1 Occurrences starting 07/15/2024 until 08/14/2025 [facility] Work Phone: Comment on above: 1 Occurrences starting 07/15/2024 until 08/14/2025 End: 02-23-2023 Ct head/brain w/o contrast material CT BRAIN WO IVCON Radiology Routine Dizziness Syncope, unspecified syncope type Hydrocephalus, adult (HCC) Other hydrocephalus (HCC) 1 Occurrences starting 01/24/2022 until 02/23/2023 [facility] Work Phone: Comment on above: 1 Occurrences starting 01/24/2022 until 02/23/2023 Ct thorax w/o contra st material CT CHEST WO IVCON Radiology Routine Lung nodules 03/13/2022 9:18 AM EDT [facility] Work Phone: CTA Chest vessels WO and W contrast IV [facility] CYSTO DIAGNOSTIC CYSTO DIAGNOSTI C Procedures Routine Gross hematuria Ordered: 08/28/2024 [facility] Work Phone: Comment on above: Ordered: 08/28/2024 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 CYTOLOGY NON-GY N Lab Routine Urgency of urination Gross hematuria 08/11/2024 11:29 AM EST [facility] End: 09-11-2025 DBT Breast - bilateral diagnostic for implant SANJUANA DIAG W GENNA BILATERAL Radiology Routine Abnormal mammogram 1 Occurrences starting 08/12/2024 until 09/11/2025 [facility] Work Phone: Comment on above: 1 Occurrences starting 08/12/2024 until 09/11/2025 End: 04-12-2025 DBT Breast - bilateral screening SANJUANA SCREENING W GENNA Radiology Routine Screening mammogram, encounter for 1 Occurrences starting 03/13/2024 until 04/12/2025 [facility] Work Phone: Comment on above: 1 Occurrences starting 03/13/2024 until 04/12/2025 DBT Breast - bilater al screening SANJUANA SCREENING W GENNA Radiology Routine Screening mammogram, encounter for 08/11/2024 1:00 PM EST [facility] Work Phone: End: 06-25-2025 DXA Skeletal system.axial Views for bone density DXA-AXIAL SKELETON Radiology Routine Asymptomatic postmenopausal status 1 Occurrences starting 05/26/2024 until 06/25/2025 [facility] Work Phone: Comment on above: 1 Occurrences starting 05/26/2024 until 06/25/2025 End: 06-26-2024 DXA-AXIAL SKELETON DXA-AXIAL SKELETON Radiology Routine Asymptomatic postmenopausal status 1 Occurrences starting 05/28/2023 until 06/26/2024 [facility] Work Phone: Comment on above: 1 Occurrences starting 05/28/2023 until 06/26/2024 ECG COMPLETE [facility] Work Phone: Comment on above: Ordered: 10/10/2023 ECG COMPLETE ECG COMPLETE ECG Routine Hypertension, essential Pre-op examination Ordered: 02/14/2024 [facility] Work Phone: Comment on above: Ordered: 02/14/2024 End: 12-15-2022 EGD DIAGNOSTIC EGD DIAGNOSTIC Endoscopy Routine Diarrhea of presumed infectious origin 1 Occurrences starting 12/15/2021 until 12/15/2022 [facility] Work Phone: Comment on above: 1 Occurrences starting 12/15/2021 until 12/15/2022 ENTERIC BACTERIAL PA JOSE BY PCR ENTERIC BACTERIAL PANEL BY PCR Lab Routine Diarrhea of presumed infectious origin Ordered: 12/15/2021 [facility] Work Phone: Comment on above: Ordered: 12/15/2021 FECAL LACTOFERRIN/LEUKOCYTES FECAL LACTOFERRIN/LEUKOCYTES Lab Routine Diarrhea of presumed infectious origin Ordered: 12/15/2021 [facility] Work Phone: Comment on above: Ordered: 12/15/2021 Giardia lamblia+Cryptosporidium sp Ag [Presence] in Stool by Immunoassay CRYPTOSPORIDIUM AND GIARDIA ANTIGENS BY EIA Microbiology Routine Diarrhea of presumed infectious origin Ordered: 12/15/2021 [facility] Work Phone: Comment on above: Ordered: 12/15/2021 HIGH RISK HUMAN BEENA LLOMA VIRUS (HPV), PCR FOR DETECTION AND GENOTYPING HIGH RISK HUMAN PAPILLOMA VIRUS (HPV), PCR FOR DETECTION AND GENOTYPING Lab Routine Screening for HPV (human papillomavirus) 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 Cervical high risk HPV (human papillomavirus) test positive 07/17/2024 9:50 AM EST [facility] Work Phone: INJECTION HIP JOINT (AG) INJECTI ON HIP JOINT (AG) Radiology Routine Primary osteoarthritis of right hip Ordered: 11/13/2022 [facility] Work Phone: Comment on above: Ordered: 11/13/2022 Intracutaneous tests w/allergenic extracts INTRACU/DERM TESTS-IMMEDIA RX Procedures Routine Nonallergic rhinitis Ordered: 04/11/2022 [facility] Work Phone: Comment on above: Ordered: 04/11/2022 End: 06-28-2024 SANJUANA SCREENING SANJUANA SCREENING Radiology Routine Encounter for screening mammogram for breast cancer 1 Occurrences starting 05/30/2023 until 06/28/2024 [facility] Work Phone: Comment on above: 1 Occurrences starting 05/30/2023 until 06/28/2024 End: 09-12-2025 MG Breast - bilateral Diagnostic SANJUANA DIAGNOSTIC BILATERAL Radiology Routine Abnormal mammogram 1 Occurrences starting 08/13/2024 until 09/12/2025 [facility] Work Phone: Comment on above: 1 Occurrences starting 08/13/2024 until 09/12/2025 End: 03-19-2023 Mri brain brain stem w/o contrast material MRI BRAIN WO IVCON Radiology Routine Other hydrocephalus (HCC) 1 Occurrences starting 02/17/2022 until 03/19/2023 [facility] Work Phone: Comment on above: 1 Occurrences starting 02/17/2022 until 03/19/2023 End: 12-15-2023 Mri brain brain stem w/o contrast material MRI BRAIN WO IVCON Radiology Routine Hydrocephalus, adult (HCC) Ataxia Double vision Urinary incontinence, unspecified type Other hydrocephalus (HCC) 1 Occurrences starting 11/15/2022 until 12/15/2023 [facility] Work Phone: Comment on above: 1 Occurrences starting 11/15/2022 until 12/15/2023 End: 06-30-2024 Mri brain brain stem w/o contrast material MRI BRAIN WO IVCON Radiology Routine Other hydrocephalus (HCC) 1 Occurrences starting 06/01/2023 until 06/30/2024 [facility] Work Phone: Comment on above: 1 Occurrences starting 06/01/2023 until 06/30/2024 End: 04-07-2023 Mri lower extrem oth/thn jt w/o contr matrl MRI LOWER LEG WO IVCON RT Radiology Routine Localized swelling, mass, or lump of right lower extremity 1 Occurrences starting 03/08/2022 until 04/07/2023 [facility] Work Phone: Comment on above: 1 Occurrences starting 03/08/2022 until 04/07/2023 End: 07-06-2025 NM Whole body Bone Views NM BONE WHOLE BODY Radiology Routine Elevated alkaline phosphatase level 1 Occurrences starting 06/06/2024 until 07/06/2025 [facility] Work Phone: Comment on above: 1 Occurrences starting 06/06/2024 until 07/06/2025 OCCULT BLD EXAM-DIAG OCCULT BLD EXAM-DIAG Microbiology Routine Diarrhea of presumed infectious origin Ordered: 12/16/2021 [facility] Work Phone: Comment on above: Ordered: 12/16/2021 End: 07-08-2025 OXIMETRY WITH AMBULATION OXIMETRY WITH AMBULATION PFT Routine Post-COVID chronic dyspnea 1 Occurrences starting 06/08/2024 until 07/08/2025 [facility] Work Phone: Comment on above: 1 Occurrences starting 06/08/2024 until 07/08/2025 PAP TEST PAP TEST Lab Rou melyssa Cervical cancer screening 07/17/2024 9:50 AM EST [facility] PAP TEST PAP TEST Lab Rou melyssa Vaginal discharge Vaginal odor Vaginal high risk human papillomavirus (HPV) DNA test positive 09/18/2024 9:19 AM EST [facility] Patient Education [facility] Work Phone: Patient referral [facility] Work Phone: POST VOID RESIDUAL POST VOID RES IDUAL Procedures Routine Urgency of urination Gross hematuria Ordered: 08/11/2024 [facility] Work Phone: Comment on above: Ordered: 08/11/2024 PT PLAN OF CARE CERTIFICATION PT PLAN OF CARE CERTIFICATION Procedures Routine Spinal stenosis, lumbar region, without neurogenic claudication Primary osteoarthritis of both knees Ordered: 11/15/2022 [facility] Comment on above: Ordered: 11/15/2022 End: 05-05-2023 Screening mammography bi 2-view breast inc cad [facility] SCREENING Radiology Routine Encounter for screening mammogram for breast cancer 1 Occurrences starting 04/06/2022 until 05/05/2023 [facility] Work Phone: Comment on above: 1 Occurrences starting 04/06/2022 until 05/05/2023 End: 04-27-2022 Screening mammography bi 2-view breast inc cad [facility] Work Phone: Comment on above: 1 Occurrences starting 04/27/2022 until 04/27/2022 End: 07-08-2025 SPIROMETRY - BASELINE AND POST DILATOR SPIROMETRY - BASELINE AND POST DILATOR PFT Routine Post-COVID chronic dyspnea 1 Occurrences starting 06/08/2024 until 07/08/2025 [facility] Comment on above: 1 Occurrences starting 06/08/2024 until 07/08/2025 SPIROMETRY - BASELIN E AND POST DILATOR SPIROMETRY - BASELINE AND POST DILATOR PFT Routine Post-COVID chronic dyspnea 06/10/2024 10:05 AM EDT [facility] Work Phone: STREP A MOLECULAR (POC) STREP A MOLECULAR (POC) Microbiology Routine Pharyngitis, unspecified etiology Ordered: 10/09/2022 [facility] Work Phone: Comment on above: Ordered: 10/09/2022 SURGICAL PATHOLOGY [facility] Work Phone: Comment on above: Release Upon Ordering for 1 Occurrences starting 05/05/2022, 1 completed SURGICAL PATHOLOGY SURGICAL PATH OLOGY Lab Routine Vulvar irritation 07/28/2024 12:06 PM EST [facility] Work Phone: UA DIP, URINE (POC) UA DIP, URIN E (POC) Lab Routine Urgency of urination Ordered: 12/13/2024 [facility] Work Phone: Comment on above: Ordered: 12/13/2024 End: 07-06-2025 US Abdomen RUQ US ABD RIGHT UPPER QUADRANT Radiology Routine Elevated alkaline phosphatase level 1 Occurrences starting 06/06/2024 until 07/06/2025 [facility] Comment on above: 1 Occurrences starting 06/06/2024 until 07/06/2025 End: 09-11-2025 US Breast - left limited US BREAST LTD LEFT Radiology Routine Abnormal mammogram 1 Occurrences starting 08/12/2024 until 09/11/2025 [facility] Comment on above: 1 Occurrences starting 08/12/2024 until 09/11/2025 End: 09-11-2025 US Breast - right limited US BREAST LTD RIGHT Radiology Routine Abnormal mammogram 1 Occurrences starting 08/12/2024 until 09/11/2025 [facility] Comment on above: 1 Occurrences starting 08/12/2024 until 09/11/2025 End: 01-24-2023 US CAROTID ARTERIES [facility] LAB US CAROTID ARTERIES [facility] LAB Vascular Lab Routine Dizziness Syncope, unspecified syncope type 1 Occurrences starting 01/24/2022 until 01/24/2023 [facility] Work Phone: Comment on above: 1 Occurrences starting 01/24/2022 until 01/24/2023 End: 04-24-2024 US CAROTID ARTERIES [facility]A V[facility] LAB US CAROTID ARTERIES [facility] LAB Vascular Lab Routine Dizziness 1 Occurrences starting 04/24/2023 until 04/24/2024 [facility] Work Phone: Comment on above: 1 Occurrences starting 04/24/2023 until 04/24/2024 US Heart [facility] Work Phone: End: 08-12-2025 US Kidney - bilateral and Urinary bladder US KIDNEY/BLADDER Radiology Routine Gross hematuria 1 Occurrences starting 07/13/2024 until 08/12/2025 [facility] Work Phone: Comment on above: 1 Occurrences starting 07/13/2024 until 08/12/2025 US Kidney - bilatera l and Urinary bladder US KIDNEY/BLADDER Radiology Routine Renal cyst 04/13/2025 10:40 AM EDT [facility] Work Phone: End: 03-03-2023 Us lmtd joint/oth nonvasc xtr strux r-t w/img US EXTREMITY MASS/FLUID COLLECTION RT Radiology Routine Lump of skin of lower extremity, right 1 Occurrences starting 02/01/2022 until 03/03/2023 [facility] Work Phone: Comment on above: 1 Occurrences starting 02/01/2022 until 03/03/2023 End: 10-28-2025 XR Chest PA and Lateral XR CHEST 2V FRONTAL/LAT Radiology STAT Productive cough 1 Occurrences starting 09/28/2024 until 10/28/2025 [facility] Work Phone: Comment on above: 1 Occurrences starting 09/28/2024 until 10/28/2025 End: 04-12-2025 XR Foot - left AP and Lateral and oblique XR FOOT GENERAL 3V AP/LAT/OBL LEFT Radiology Routine Foot pain, left 1 Occurrences starting 03/13/2024 until 04/12/2025 [facility] Comment on above: 1 Occurrences starting 03/13/2024 until 04/12/2025 XR Foot - left AP an d Lateral and oblique XR FOOT GENERAL 3V AP/LAT/OBL LEFT Radiology Routine Foot pain, left 03/13/2024 8:30 AM EDT [facility] End: 05-03-2024 XR FOOT GENERAL 3V AP/LAT/OBL LEFT XR FOOT GENERAL 3V AP/LAT/OBL LEFT Radiology Routine 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) 1 Occurrences starting 04/04/2023 until 05/03/2024 [facility] Work Phone: Comment on above: 1 Occurrences starting 04/04/2023 until 05/03/2024 End: 05-03-2024 XR FOOT GENERAL 3V AP/LAT/OBL RIGHT XR FOOT GENERAL 3V AP/LAT/OBL RIGHT Radiology Routine 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) 1 Occurrences starting 04/04/2023 until 05/03/2024 [facility] Work Phone: Comment on above: 1 Occurrences starting 04/04/2023 until 05/03/2024 End: 05-03-2024 XR HAND GENERAL 3V PA/LAT/OBL LEFT XR HAND GENERAL 3V PA/LAT/OBL LEFT Radiology Routine 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 Immunizations Immunization Date Immunization Notes Care Provider Fa cili 04-24-2023 pneumococcal (PCV20) vaccine, 20 valent (PREVNAR 20) Nadira Springer PA-C Work Phone: [facility] 04-24-2023 pneumococcal 20-tyson nt conjugate vaccine DR PHILLIP CORTEZ MD [facility] 04-24-2023 pneumococcal Conjuga te, unspecified formulation Ganga Nunez MD Work Phone: [facility] Work Phone: 07-26-2021 influenza, injectabl e, quadrivalent, contains preservative Carmine Montez MD Work Phone: [facility] 07-26-2021 influenza virus vaccine, unspecified formulation Ganga Nunez MD Work Phone: [facility] 03-12-2020 tetanus toxoid, redu jose diphtheria toxoid, and acellular pertussis vaccine, adsorbed Dr. Ganga Nunez Work Phone: [facility] 07-31-2019 influenza virus vaccine, unspecified formulation DR PHILLIP CORTEZ MD [facility] 07-31-2019 influenza, seasonal, injectable Carmine Montez MD Work Phone: [facility] 05-23-2018 influenza virus vaccine, unspecified formulation DR PHILLIP CORTEZ MD [facility] 05-23-2018 influenza, injectabl e, quadrivalent, preservative free Carmine Montez MD Work Phone: [facility] 07-02-2017 influenza virus vaccine, unspecified formulation DR PHILLIP CORTEZ MD [facility] 06-29-[address] Ganga Nunez Work Phone: [facility] 06-29-2017 influenza, seasonal, injectable Carmine Montez MD Work Phone: [facility] 06-19-2016 influenza, injectabl e, quadrivalent, preservative free Dr. Ganga Nunez Work Phone: [facility] 06-19-2016 influenza, seasonal, injectable Dr. Ganga Nunez Work Phone: [facility] 08-16-2015 influenza, injectabl e, quadrivalent, preservative free Dr. Ganga Nunez Work Phone: [facility] 08-16-2015 influenza, seasonal, injectable Dr. Ganga Nunez Work Phone: [facility] 08-08-2014 tetanus toxoid, redu jose diphtheria toxoid, and acellular pertussis vaccine, adsorbed Carmine Montez MD Work Phone: [facility] 07-16-2014 influenza, injectabl e, quadrivalent, preservative free Dr. Ganga Nunez Work Phone: [facility] 07-16-2014 influenza, seasonal, injectable Dr. Ganga Nunez Work Phone: [facility] 04-27-2014 tetanus toxoid, redu jose diphtheria toxoid, and acellular pertussis vaccine, adsorbed Dr. Ganga Nunez Work Phone: [facility] 04-08-2013 tuberculin skin test ; purified protein derivative solution, intradermal Ganga Nunez MD Work Phone: [facility] 05-22-2012 tuberculin skin test ; purified protein derivative solution, intradermal Ganga Nunez MD Work Phone: [facility] 04-26-2011 tetanus toxoid, redu jose diphtheria toxoid, and acellular pertussis vaccine, adsorbed Carmine Montez MD Work Phone: [facility] 04-26-2011 tuberculin skin test ; purified protein derivative solution, intradermal Ganga Nunez MD Work Phone: [facility] 02-24-1961 poliovirus vaccine, inactivated Carmine Montez MD Work Phone: [facility] 10-25-1959 poliovirus vaccine, inactivated Carmine Montez MD Work Phone: [facility] 05-07-1959 poliovirus vaccine, inactivated Carmine Montez MD Work Phone: [facility] Payers Date Payer Category Payer Self-pay [id number] 2023 Unknown [id number] 2023 Unknown [id number] 2023 Medicare [id number] 2023 Medicare [id number] 2021 Private Health Insurance [id number] 2021 Private Health Insurance [id number] 2020 Unknown [employer] [id number] 2020-2021 [address] [place] [id number] PPO [id number] 2020 Medicaid [employer] [id number] 2020-Present [phone] [address] [place] [address] Medicaid [id number] 2020 Medicaid [id number] 2016 Medicaid [id number] 2016 Unknown [id number] 1958 Unknown [id number]. [id number] 1958 Unknown [id number]. 627 1958 Unknown [id number]. 627 Unknown [id number] Unknown [id number] Unknown [id number] Unknown [id number] Unknown [id number]. 462 Unknown [id number]. 462 Unknown [id number] 2.840.1.190869.3.579.2. 462 Unknown [id number]. 462 Unknown [id number]. 462 Unknown [id number]. 462 Unknown [id number]. 462 Unknown [id number] 2.840.1.451075.3.579.2. 462 Unknown [id number] 2.840.1.511597.3.579.2. 462 Unknown [id number] 2.840.1.120856.3.579.2. 462 Unknown [id number]. 462 Unknown [id number]. 462 Unknown [id number]. 462 Unknown [id number] 2.840.1.189794.3.579.2. 462 Unknown [id number]. 462 Unknown [id number]. 462 Social History Date Type Detail Facility Start: 10-24-2021 End: 08-15-2023 Tobacco smoking status [facility] Unknown if ever smoked [facility] Start: 03-17-2020 Spouse/ Signif icant Other [facility] Start: 03-12-2020 Non-smoker [facility] Start: 1960 Sex Assigned At Female [facility] Start: 04-26-2011 End: 05-26-2024 Tobacco smoking status AKIS Ex-smoker [facility] Comment on above: quit 2006 Start: 04-26-2008 End: 04-26-2010 History of tobacco use Current smoker [facility] Start: 04-26-2008 End: 04-26-2010 History of tobacco use Cigarette Smoker [facility] Start: 04-26-2011 End: 07-08-2024 Cigarettes smoked current (pack per day) - Reported 0.1 [facility] Start: 04-26-2011 End: 05-26-2024 Tobacco use and exposure Smokeless tobacco non-user [facility] Start: 12-16-2021 End: 04-28-2025 Alcohol intake Current drinker of alcohol (finding) [facility] Start: 08-24-2015 History SDOH Alcohol Comment occasionally, several times a month glass of wine or mixed drink [facility] Start: 07-05-2009 End: 04-26-2022 Tobacco Comment half a pack a week, hasn't smoked since 05/2009 [facility] Start: 04-09-2021 End: 06-01-2022 Exposure to SARS-CoV-2 (event) Not sure [facility] Start: 01-24-2022 End: 08-20-2022 History SDOH Alcohol Frequency 2 [facility] Start: 01-24-2022 End: 08-20-2022 History SDOH Alcohol Std Drinks 1 [facility] Start: 01-24-2022 End: 08-20-2022 History SDOH Social Connections Phone 5 [facility] Start: 01-24-2022 History SDOH Social Connections Get Together 4 [facility] Start: 01-24-2022 End: 08-20-2022 History SDOH Social Connections Living 3 [facility] Start: 02-07-2022 End: 02-17-2022 Exposure to SARS-CoV-2 (event) Unable to assess [facility] Start: 08-20-2022 History SDOH Social Connections Mormon 98 [facility] Start: 08-20-2022 History SDOH Physica l Activity DPW 0 [facility] Start: 02-07-2023 Alcohol Comment 1-2 times a we ek at most: wine [facility] Start: 08-19-2022 End: 07-08-2024 Social connection and isolation panel [facility] Start: 08-04-2012 How often do you att end zoroastrian or amish services? Patient refused [facility] Do you belong to any clubs or organizations such as zoroastrian groups, unions, fraternal or athletic groups, or school groups? No [facility] Are you now , , , , never or living with a partner? [facility] How often to you hav e a drink containing alcohol? Monthly or less [facility] How many standard drinks containing alcohol do you have on a typical day? 1 or 2 [facility] How often do you hav e 6 or more drinks on 1 occasion? Never [facility] How hard is it for y ou to pay for the very basics like food, housing, medical care, and heating Hard [facility] Do you feel stress - tense, restless, nervous, or anxious, or unable to sleep at night because your mind is troubled all the time - these days [OSQ] Very much [facility] (I/We) worried donn er (my/our) food would run out before (I/we) got money to buy more. Sometimes true [facility] In the past 12 month s, was there a time when you were not able to pay the mortgage or rent on time? Yes [facility] Start: 06-30-2020 Gender identity Identifies as female gender (finding) [facility] Start: 06-30-2020 Sexual orientation Heterosexual (sonja heaven) [facility] Start: 10-15-2017 None [facility] How hard is it for y ou to pay for the very basics like food, housing, medical care, and heating Not very hard [facility] The food that (I/we) bought just didn't last, and (I/we) didn't have money to get more. Never true [facility] Start: 09-30-2024 End: 04-25-2025 Alcoholic beverage intake Ex-drinker (finding) [facility] Start: 11-27-2024 Sex Female (finding) [facility] Start: 04-28-2025 Alcohol Comment Occassionally [facility] NEGATED: Highlighted row [facility] Medical Equipment Procedure Code Equipment Code Equipment Origin al Text Equipment Identifier Dates Mesh Parietene D s [id number] - [id number] Start: 04-05-2020 2mm Eccentric [employer]osphere FDA Start: 06-14-2022 X3 Humeral Insert FDA Start: 06-14-2022 center screw FDA Start: 06-14-2022 glenoid baseplate FDA Start: 06-14-2022 humeral cup FDA Start: 06-14-2022 peripheral screw FDA Start: 06-14-2022 peripheral screw FDA Start: 06-14-2022 press-fit humeral stem FDA St art: 06-14-2022 2mm Eccentric Glenosphere FDA Start: 06-14-2022 X3 Humeral Insert FDA Start: 06-14-2022 center screw FDA Start: 06-14-2022 glenoid baseplate FDA Start: 06-14-2022 humeral cup FDA Start: 06-14-2022 peripheral screw FDA Start: 06-14-2022 peripheral screw FDA Start: 06-14-2022 press-fit humeral stem FDA St art: 06-14-2022 2mm Eccentric [employer]osphere FDA Start: 06-14-2022 X3 Humeral Insert FDA Start: 06-14-2022 center screw FDA Start: 06-14-2022 glenoid baseplate FDA Start: 06-14-2022 humeral cup FDA Start: 06-14-2022 peripheral screw FDA Start: 06-14-2022 peripheral screw FDA Start: 06-14-2022 press-fit humeral stem FDA St art: 06-14-2022 2mm Eccentric Glenosphere FDA Start: 06-14-2022 X3 Humeral Insert FDA Start: 06-14-2022 center screw FDA Start: 06-14-2022 glenoid baseplate FDA Start: 06-14-2022 humeral cup FDA Start: 06-14-2022 peripheral screw FDA Start: 06-14-2022 peripheral screw FDA Start: 06-14-2022 press-fit humeral stem FDA St art: 06-14-2022 2mm Eccentric Glenosphere FDA Start: 06-14-2022 X3 Humeral Insert FDA Start: 06-14-2022 center screw FDA Start: 06-14-2022 glenoid baseplate FDA Start: 06-14-2022 humeral cup FDA Start: 06-14-2022 peripheral screw FDA Start: 06-14-2022 peripheral screw FDA Start: 06-14-2022 press-fit humeral stem FDA St art: 06-14-2022 2mm Eccentric Glenosphere FDA Start: 06-14-2022 X3 Humeral Insert FDA Start: 06-14-2022 center screw FDA Start: 06-14-2022 glenoid baseplate FDA Start: 06-14-2022 humeral cup FDA Start: 06-14-2022 peripheral screw FDA Start: 06-14-2022 peripheral screw FDA Start: 06-14-2022 press-fit humeral stem FDA St art: 06-14-2022 ([id number]) Ceramic femoral head prosthesis ()[id number] FDA Start: 06-18-2023 ([id number]) Acetabular shell ()[id number] FDA Start: 06-18-2023 ([id number]) Coated hip femur prosthesis, modular ()[id number] FDA Start: 06-18-2023 ([id number]) Non-constrained polyethylene acetabular liner ()[id number] FDA Start: 06-18-2023 ([id number]) Acetabular shell ()[id number] FDA Start: 06-18-2023 2mm Eccentric Glenosphere FDA Start: 06-14-2022 X3 Humeral Insert FDA Start: 06-14-2022 center screw FDA Start: 06-14-2022 glenoid baseplate FDA Start: 06-14-2022 humeral cup FDA Start: 06-14-2022 peripheral screw FDA Start: 06-14-2022 peripheral screw FDA Start: 06-14-2022 press-fit humeral stem FDA St art: 06-14-2022 2mm Eccentric Glenosphere FDA Start: 06-14-2022 X3 Humeral Insert FDA Start: 06-14-2022 center screw FDA Start: 06-14-2022 glenoid baseplate FDA Start: 06-14-2022 humeral cup FDA Start: 06-14-2022 peripheral screw FDA Start: 06-14-2022 peripheral screw FDA Start: 06-14-2022 press-fit humeral stem FDA St art: 06-14-2022 2mm Eccentric Glenosphere FDA Start: 06-14-2022 X3 Humeral Insert FDA Start: 06-14-2022 center screw FDA Start: 06-14-2022 glenoid baseplate FDA Start: 06-14-2022 humeral cup FDA Start: 06-14-2022 peripheral screw FDA Start: 06-14-2022 peripheral screw FDA Start: 06-14-2022 press-fit humeral stem FDA St art: 06-14-2022 2mm Eccentric Glenosphere FDA Start: 06-14-2022 X3 Humeral Insert FDA Start: 06-14-2022 center screw FDA Start: 06-14-2022 glenoid baseplate FDA Start: 06-14-2022 humeral cup FDA Start: 06-14-2022 peripheral screw FDA Start: 06-14-2022 peripheral screw FDA Start: 06-14-2022 press-fit humeral stem FDA St art: 06-14-2022 2mm Eccentric Glenosphere FDA Start: 06-14-2022 X3 Humeral Insert FDA Start: 06-14-2022 center screw FDA Start: 06-14-2022 glenoid baseplate FDA Start: 06-14-2022 humeral cup FDA Start: 06-14-2022 peripheral screw FDA Start: 06-14-2022 peripheral screw FDA Start: 06-14-2022 press-fit humeral stem FDA St art: 06-14-2022 2mm Eccentric Glenosphere FDA Start: 06-14-2022 X3 Humeral Insert FDA Start: 06-14-2022 center screw FDA Start: 06-14-2022 glenoid baseplate FDA Start: 06-14-2022 humeral cup FDA Start: 06-14-2022 peripheral screw FDA Start: 06-14-2022 peripheral screw FDA Start: 06-14-2022 press-fit humeral stem FDA St art: 06-14-2022 2mm Eccentric Glenosphere FDA Start: 06-14-2022 X3 Humeral Insert FDA Start: 06-14-2022 center screw FDA Start: 06-14-2022 glenoid baseplate FDA Start: 06-14-2022 humeral cup FDA Start: 06-14-2022 peripheral screw FDA Start: 06-14-2022 peripheral screw FDA Start: 06-14-2022 press-fit humeral stem FDA St art: 06-14-2022 2mm Eccentric Glenosphere FDA Start: 06-14-2022 X3 Humeral Insert FDA Start: 06-14-2022 center screw FDA Start: 06-14-2022 glenoid baseplate FDA Start: 06-14-2022 humeral cup FDA Start: 06-14-2022 peripheral screw FDA Start: 06-14-2022 peripheral screw FDA Start: 06-14-2022 press-fit humeral stem FDA St art: 06-14-2022 Goals Date Patient Goal Desired Activity /State Personal health goal Functional Status Date Assessment Result Facility 10-31-2023 Functional Status None Alina Infante [facility] 10-31-2023 Functional Status Door open, Non-Slip footwear, Room check performed [facility] 10-31-2023 Functional Status Alina Infante [facility] 10[facility]30-2023 [facility] Functional Status Mod I Alina [facility] 10-30-2023 Functional Status Alina [facility] 10-30-2023 Functional Status Alina [facility] 10-30-2023 Functional Status Repositions self [facility] 10-30-2023 [facility] Functional status Chair [facility] Work Phone: 06-15-2022 Functional status Ambulates;Bath room Privilege [facility] Work Phone: 04-06-2020 Are you deaf, or do you have serious difficulty hearing No 04/06/2020 11:26 AM Lois Paz RN No [facility] 04-06-2020 Are you blind, or do you have serious difficulty seeing, even when wearing glasses No 04/06/2020 11:26 AM Lois Paz RN No [facility] 04-06-2020 Do you have serious difficulty walking or climbing stairs No 04/06/2020 11:26 AM Lois Paz RN No [facility] 04-06-2020 Do you have difficul ty dressing or bathing No 04/06/2020 11:26 AM Lois Paz RN No [facility] 04-06-2020 Because of a physica l, mental, or emotional condition, do you have difficulty doing errands alone such as visiting a physician's office or shopping No 04/06/2020 11:26 AM Lois Paz RN No [facility] Mental Status Date Assessment Result Facility 09-23-2024 Cognitive function Level Of Cons ciousness Sedated [facility] Work Phone: 09-23-2024 Cognitive function Voice/Name [facility] Work Phone: 10-31-2023 Mental Status Oriented x 4 [facility] 10-30-2023 Mental Status [facility] 10-30-2023 Mental Status [facility] 06-19-2023 Cognitive function Level Of Cons ciousness Awake;Alert;Appropriate;Fol lows Commands [facility] Work Phone: 06-18-2023 Cognitive function Appropriate [facility] Work Phone: 08-14-2022 Cognitive function Level Of Cons ciousness Awake;Alert;Appropriate;Fol lows Commands [facility] Work Phone: 06-15-2022 Cognitive function Level Of Cons ciousness Awake;Alert;Appropriate;Fol lows Commands [facility] Work Phone: 06-15-2022 Cognitive function Voice/Name [facility] Work Phone: 04-06-2020 Because of a physica l, mental, or emotional condition, do you have serious difficulty concentrating, remembering, or making decisions No 04/06/2020 11:26 AM EDT Lois Puga RN No [facility] Clinical Notes 06-12-2018 to 04-28-2025 Ladarius Mon PA-C - 04/28/2025 2:14 PM Brielle Houston PA - 04/25/2025 8:20 AM EDTTelephone Encounter - Ganga Nunez MD - 04/14/2025 1:27 PM EDTPatient Instructions Note Date & Type Note [facility] 04-28-[address] [facility] 04-28-2025 History of Present illness Narrative Images from the original note were not included. [facility] PATIENT CLINIC NOTE (F) Some elements copied from his previous note, which have been updated where appropriate, and all reflect current medical decision making from date of this visit. Note was generated by [employer] and edited as appropriate SERVICE DATE: April 28, 2025 NAME: Kristina Burch GENDER: female CHIEF COMPLAINT: The patient is a 64-year-old female presenting for follow-up of a urinary tract infection after Macrobid therapy and evaluation of persistent urinary urgency and incontinence. HISTORY OF PRESENT ILLNESS: The patient is a 64-year-old female presenting for follow-up of a urinary tract infection after Macrobid therapy and evaluation of persistent urinary urgency and incontinence. Hematuria: - Recent cystoscopy performed by Dr. Mcmahon. - Urine culture on 04/25 was positive; currently on Macrobid with 2 days remaining. - Reports ongoing urinary incontinence. Renal Cysts: - Recent ultrasound on 04/15 showed a 6.7 cm simple renal cyst. - Uncertain if seen by a urologist for the cyst. Urinary Incontinence: - Chronic urinary urgency and incontinence. - Currently taking Sanctura with reported improvement in symptoms. > We discussed the common causes of urinary frequency and urgency, and restricting water intake In hopes to mitigate the need to urinate, we discussed how this behavior more often worsen the problem not improving it, > We discussed increasing daily water intake to 64-84 oz 7a -7p and try to reduce bladder irritants, caffeine, alcohol and acid foods and drink. > Bladder irritants handout available to patient. Instructed the patient to CALL office to get a URINE CULTURE order placed if having UTI symptoms, instead of going to Urgent Care or ER As long as I have seen the patient within 1 year, understanding NO antibiotics will be given until the culture is final If patient has a FEVER > 100.1, we will send her to ER that is not common for uncomplicated UTI LABS: Glucose (mg/dL) Date Value 09/30/2024 96 07/26/2021 97 Potassium (mmol/L) Date Value 09/30/2024 4.1 07/26/2021 3.8 Sodium (mmol/L) Date Value 09/30/2024 139 07/26/2021 143 Chloride (mmol/L) Date Value 09/30/2024 102 07/26/2021 103 CO2 (mmol/L) Date Value 09/30/2024 24 07/26/2021 29 Creatinine (mg/dL) Date Value 09/30/2024 0.82 07/26/2021 1.01 BUN (mg/dL) Date Value 09/30/2024 15 07/26/2021 19 Anion Gap (mmol/L) Date Value 09/30/2024 13 07/26/2021 11 Calcium (mg/dL) Date Value 07/26/2021 9.8 Calcium, Total (mg/dL) Date Value 09/30/2024 9.9 Protein, Total (g/dL) Date Value 04/10/2025 7.4 03/30/2021 7.1 Albumin (g/dL) Date Value 04/10/2025 4.2 03/30/2021 4.3 Bilirubin, Total (mg/dL) Date Value 04/10/2025 0.4 03/30/2021 0.4 Alkaline Phosphatase (U/L) Date Value 04/10/2025 125 03/30/2021 81 AST (U/L) Date Value 04/10/2025 20 03/30/2021 21 ALT (U/L) Date Value 04/10/2025 19 03/30/2021 20 Creatinine Date Value Ref Range Status 09/30/2024 0.82 0.58 - 0.96 mg/dL Final 07/10/2024 0.83 0.58 - 0.96 mg/dL Final 05/30/2024 0.83 0.58 - 0.96 mg/dL Final MEDICATIONS: nitrofurantoin monohydrate and macrocrystal (MACROBID) 100 mg capsule Take 1 capsule by mouth two times a day for 5 days. B comp/E/folic acid/mins35/soy (MENOPAUSE SUPPORT PO) Take 1 tablet by mouth once daily. clonazePAM (KLONOPIN) 0.5 mg tablet Take at bedtime for insomnia and RLS. DULERA 50-5 mcg/actuation HFA aerosol inhaler Inhale 2 puffs as instructed two times a day. trospium (SANCTURA) 20 mg tablet Take 1 tablet by mouth two times a day. Patient should start on October 27, 2024. hydroCHLOROthiazide 25 mg tablet Take 1 tablet by mouth once daily. Prn per cardiology atorvastatin (LIPITOR) 40 mg tablet Take 1 tablet by mouth daily at bedtime. For cholesterol. FLUoxetine (PROZAC) 20 mg capsule Take 1 capsule by mouth once daily. traZODone (DESYREL) 100 mg tablet Take 1 tablet by mouth daily at bedtime. albuterol HFA (VENTOLIN HFA) 90 mcg/actuation inhaler Inhale 2 Puffs as instructed every 4 hours as needed for wheezing/shortness of breath. CPAP/BIPAP/OTHER APAP 7-15 cmH2O DME [employer] folic acid 1 mg tablet Take 1 tablet by mouth once daily. azelastine (ASTELIN, ASTEPRO) 0.1% nasal spray Use 2 Sprays in each nostril twice daily as needed. metoprolol succinate ER (TOPROL XL) 50 mg 24 hr tablet Take 2 tablets by mouth once daily. vit C-Zn gluc-herbal no.325 (ELDERBERRY ZINC VIT C) 90-15 mg lozg Use 1 Lozenge as instructed twice daily. calcium carbonate (CALTRATE 600 ORAL) Take 1 tablet by mouth once daily. multivitamin tablet Take 1 tablet by mouth once daily. BIOTIN ORAL Take 1 tablet by mouth once daily. Cholecalciferol, Vitamin D3, 2,000 unit cap Take 10,000 Units by mouth daily at bedtime. PAST MEDICAL HISTORY: PAST MEDICAL HISTORY Diagnosis Date Abnormal mammogram Acute respiratory disease due to COVID-19 virus 06/16/[address] Scott Quarles Advance directive discussed with patient 04/06/2022 Discussed 04/06/2022 Arthritis of knee, left 01/31/2013 Arthritis of left hip 01/19/2016 Arthritis of left shoulder region 10/10/2023 Ascending aorta dilatation 07/04/2017 04/19/16: 4.2 cm 06/11/17: 4.4 cm 06/24/18 4.4 cm Bilateral leg edema 02/14/2024 Cervical high risk human papillomavirus (HPV) DNA test positive 05/27/2008 Chronic anxiety 06/01/2021 Chronic diarrhea 12/09/2018 Chronic hypoxemic respiratory failure (HCC) 09/06/2021 resolved Chronic left shoulder pain 10/10/2023 Chronic pain syndrome 11/29/[address] Bustillos as of 11/27/2022 Chronic prescription benzodiazepine use 06/01/2021 DDD (degenerative disc disease), lumbar 07/24/[address] [facility] Dependence on nocturnal oxygen therapy 04/24/2023 Seeing Pulm Elevated hemoglobin A1c 04/24/2023 Essential tremor 04/06/2022 Ex-smoker 04/06/2022 Excessive or frequent menstruation Heavy periods Fatty liver Fatty liver 08/11/2024 US elastography 08/2024: F2-F3 Fibromyalgia 02/26/2014 Gastroesophageal reflux disease without esophagitis 04/24/2023 Hemorrhage of gastrointestinal tract, unspecified History of COVID-19 06/13/202105/2021 Hydrocephalus, adult (HCC) 02/09/2003 Hypertension, essential 01/22/2019 Lichen sclerosus Living will on file 04/06/2022 DPA: Dustin () Lung nodule 01/24/2022 Seeing pulm Migraines 07/26/2021 Used to see neuro and was getting Botox Mild dysplasia of cervix 2006 Mixed hyperlipidemia 01/20/2016 Nonrheumatic mitral valve disorder, unspecified 04/06/2016 Obesity, Class I, BMI 30-34.9 03/13/2024 HUBER on CPAP 10/13/2016 Seeing Sleep Med. On CPAP, DME reported [employer] fax [phone] 09/2023 Plantar fasciitis 2018 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 Scott Quarles Postcoital bleeding Primary insomnia 06/13/2021 Primary osteoarthritis of both knees 11/15/2022 Primary osteoarthritis of both shoulders 04/06/2022 Seeing [facility] Rectocele 04/19/2007 Renal cyst 07/13/2016 Rheumatoid arthritis ([facility]) 04/24/2023 Seeing Rheum. Right hip pain 11/15/2022 Right knee pain RLS (restless legs syndrome) 02/25/2024 Situational mixed anxiety and depressive disorder 11/12/2017 Spinal stenosis, lumbar region, without neurogenic claudication 11/15/2022 Thoracic aortic aneurysm without rupture 2018 Urge incontinence 04/19/2007 Urgency of urination 04/19/2007 Vitamin D deficiency 07/23/2012 Well adult exam 06/13/2021 Last done: 06/13/2021 REVIEW OF SYSTEMS: Genitourinary: (+) urinary incontinence, (+) urinary urgency PHYSICAL EXAMINATION: Temperature 36.7 C (98 F), temperature source Temporal, last menstrual period 08/04/2008. General: Alert & oriented, no acute distress Skin: Normal HEENT: Pupils equal, round. Oral cavity, oropharynx clear Neck: Supple, no mass Breast: Deferred Respiratory: Clear to auscultation, bilaterally Cardiovascular: Regular rate and rhythm, no murmurs, rubs, or gallops Abdomen: Soft, non-tender, non-distended, no masses palpable, no hepatosplenomegaly, normal bowel sounds Genitourinary: Deferred MSK: Back is non-tender Extremities: No clubbing, cyanosis, or edema PROBLEM LIST REVIEW: Yes LABS: Results for orders placed or performed in visit on 04/28/25 UA DIP, URINE (POC) Result Value Ref Range GLUCOSE UA (POCT) Negative Negative mg/dL BILIRUBIN UA (POCT) Negative Negative KETONE UA (POCT) Negative Negative mg/dL SPECIFIC GRAVITY UA (POCT) >=1.030 1.005 - 1.030 HEMOGLOBIN/BLOOD UA (POCT) Moderate (A) Negative PH UA (POCT) 6.0 4.5 - 8.0 PROTEIN UA (POCT) Negative Negative mg/dL UROBILINOGEN UA (POCT) 0.2 Normal E.U./dL NITRITE UA (POCT) Negative Negative LEUKOCYTES UA (POCT) Trace (A) Negative COLOR UA (POCT) Yellow CLARITY UA (POCT) Cloudy *Note: Due to a large number of results and/or encounters for the requested time period, some results have not been displayed. A complete set of results can be found in Results Review. Urine Culture: Pending - 2 week at lab ASSESSMENT/PLAN: 1. Urgency of urination (R39.15) - Symptoms of urgency and incontinence persist. Currently managed with Sanctura, which patient reports is providing relief. Continue Sanctura as prescribed. 2. Urinary tract infection with hematuria, site unspecified (N39.0) - Recent urine culture on 04/25 was positive; currently on Macrobid with two days of treatment remaining. Ordered a follow-up urine culture to be performed 10-14 days after completion of Macrobid to ensure resolution of infection. No appointment necessary for lab visit. 3. Screening for genitourinary condition (Z13.89) - Recent cystoscopy performed by Dr. Mcmahon. Renal ultrasound on 04/15 revealed a 6.7 cm simple renal cyst, benign in appearance. No further action required for the renal cyst at this time. > Follow -up as need for UTI Patient Instructions (AVS) - printed for patient - Finish the remaining 2 days of Macrobid to complete your urinary tract infection treatment. - Continue taking Sanctura (trospium) as prescribed for urinary urgency; your prescription is refilled through next October. - Continue obtaining Klonopin refills from your other provider as discussed; no refill was issued today. - No additional action is needed for the simple, benign kidney cyst noted on your April 15 ultrasound. - After finishing Macrobid, wait 10-14 days and provide a urine sample at the lab for a post-treatment culture; no appointment is required. - We will review your urine culture results and contact you to determine if any further follow-up is needed. JEIMY Reynolds, [place], ILIR documented in this encounter [facility] 04-25-[address] [facility] 04-25-2025 History of Present illness Narrative [facility] ANAHIANGELIA Burch is a 64 year old female. Patient presents with: Urinary Frequency: Frequency and urgency x 2 days HPI Dysuria and Urinary Frequency: - Onset 2 days ago. - Reports a little bit of burning with urination. - Describes urinary frequency with a sensation of pressure and a delay before urine flow begins. - Denies hematuria. - Noted a fluorescent yellow color in urine during one episode. Urinary Incontinence: - Multiple episodes of urinary incontinence, particularly at night. - Unable to reach the bathroom in time, even when only 20 feet away due to urgency. - Using multiple pads and Depends due to incontinence. - Denies numbness in the groin region. Recent Back Procedure: - Underwent ablation lumbar nerves - Denies new back pain post-procedure. Review of Systems Constitutional: (+) fatigue, (-) fever Gastrointestinal: (+) abdominal tenderness, (-) vomiting Genitourinary: (+) urinary frequency, (+) urinary urgency, (+) urinary incontinence, (+) dysuria, (+) suprapubic pressure, (-) hematuria Musculoskeletal: (-) back pain Neurological: (-) groin numbness Objective BP 142/82 Pulse 60 Temp 37.1 C (98.8 F) (Tympanic) Resp 18 Wt 93.4 kg (205 lb 14.6 oz) LMP 08/04/2008 SpO2 98% BMI 32.25 kg/m Physical Exam Vitals and nursing note reviewed. Constitutional: General: She is not in acute distress. Appearance: Normal appearance. She is not toxic-appearing. HENT: Mouth/Throat: Mouth: Mucous membranes are moist. Cardiovascular: Rate and Rhythm: Normal rate and regular rhythm. Pulmonary: Effort: Pulmonary effort is normal. Breath sounds: Normal breath sounds. Abdominal: General: Abdomen is flat. Palpations: Abdomen is soft. Tenderness: There is no abdominal tenderness. There is no right CVA tenderness, left CVA tenderness, guarding or rebound. Skin: General: Skin is warm and dry. Neurological: Mental Status: She is alert. { 1. Urinary frequency (R35.0) - Acute onset of urinary frequency, urgency, pressure, and dysuria for 2 days; urinalysis shows blood and WBCs, consistent with UTI. - Start Macrobid. - Advised patient to go to the emergency room if incontinence worsens, or if she develops stool incontinence, severe back pain, inability to walk, or numbness in the groin. - Will call in a couple of days if any changes to the plan are needed. Recording using [employer] software for draft documentation of the visit was discussed with the patient/authorized premium service representative; all questions welcomed and answered. Patient/authorized premium service representative agreed to proceed History and Record Review External record(s) reviewed: prior outpatient record. Differential Diagnoses - UTI is more likely for the following reason(s): suggested by H&P - Pyelonephritis is less likely for the following reason(s): H&P not suggestive Disposition The patient was discharged. Procedures documented in this encounter [facility] 04-14-2025 Telephone encounter Note Noted. [facility] 04-14-2025 Miscellaneous Notes Noted. Pt notified of results. She states she wants to just continue with the Lipitor 40 mg daily at this time. States she wants to work on her diet and exercise more and that she ordered a cholesterol supplement through the same company that does the liver supplement. She states that she showed this to provider and he reviewed the ingredients. Does not want to take the additional 20 mg at this time. Sara Mcgarry MA Let patient know her A1c is higher at 6% indicating further increased risk of becoming diabetic. Advise working on decreased sugars, sweets, carbs and starches in diet along with weight loss. Her lipid panel showed Trigs elevated at 193 (goal<150 and were 348), her HDL is low at 41 (goal>50 and was 40), LDL is high at 139 (goal<130) advise working on reduced fat in diet and increased walking for exercise. I would like to add on Atorvastatin 20 mg to her 40 mg tab for a total of 60 mg a day documented in this encounter [facility] 04-14-2025 Telephone encounter Note Pt notified of results. She states she wants to just continue with the Lipitor 40 mg daily at this time. States she wants to work on her diet and exercise more and that she ordered a cholesterol supplement through the same company that does the liver supplement. She states that she showed this to provider and he reviewed the ingredients. Does not want to take the additional 20 mg at this time. Sara Mcgarry MA [facility] 04-13-2025 Telephone encounter Note Let patient know her A1c is higher at 6% indicating further increased risk of becoming diabetic. Advise working on decreased sugars, sweets, carbs and starches in diet along with weight loss. Her lipid panel showed Trigs elevated at 193 (goal<150 and were 348), her HDL is low at 41 (goal>50 and was 40), LDL is high at 139 (goal<130) advise working on reduced fat in diet and increased walking for exercise. I would like to add on Atorvastatin 20 mg to her 40 mg tab for a total of 60 mg a day [facility] 04-13-2025 History of Present illness Narrative Radiology Service Progress Note PATIENT NAME: Kristina Burch DATE OF SERVICE: April 13, 2025 TIME: 10:40 AM PATIENT IDENTITY VERIFICATION COMPLETED USING TWO (2) IDENTIFIERS: Name and Date of confirmed by patient verbally. FALL SCREENING: Has the patient had 2 falls in the last year or 1 fall with injury or currently using an Ambulatory Assistive Device (Walker, Cane, Wheelchair, Crutches, etc.)? No PATIENT GENDER DATA: Assigned female at . status: : No status: NO. PATIENT RELEVANT IMPLANT DATA REVIEWED: Not Applicable PATIENT PRESENTS WITH AN IMPLANTABLE OR ATTACHED CLOTH TESTER QUALITY: No RADIOLOGY DEPARTMENT: Ultrasound PERIPHERAL IV DATA: Not applicable SIGNED BY: Lorena Mejia RDMS April 13, 2025 10:40 AM documented in this encounter [facility] 04-13-[address] [facility] 04-10-[address] [facility] 03-30-2025 Instructions Ganga Nunez MD - 03/30/2025 9:32 AM EDT Please get labs and urine test done on or after 09/18/2025 prior to your next visit. Consider getting the shingrix vaccine for the prevention of shingles from a local pharmacy We discussed your sinus infection: - You have a sinus infection, and I recommend starting Augmentin (antibiotic) to treat it. Please fill the prescription as soon as possible and take it as directed. - Your symptoms, including facial pain, tooth pain, and green discharge, indicate that the infection is worsening, so it is important to start the antibiotic promptly. - Continue to stay hydrated and use tissues as needed to manage nasal discharge. We discussed your recent colonoscopy: - Your colonoscopy in September showed no concerning findings, and a follow-up is recommended in 5 years. However, I suggest reaching out to Dr. Tam s office to confirm that all results were normal. We discussed your heartburn: - You mentioned experiencing heartburn every other day recently, though it has improved in the last two days. You do not currently need to take medication regularly for this, but let us know if it worsens or becomes more frequent. We discussed your liver health: - You are taking an ttqb-gdp-ynpqmxw supplement containing turmeric and milk thistle for fatty liver. I reviewed the ingredients and see no concerns with continuing this supplement. - I ordered a liver function test to monitor your liver health. You can complete this test next week when you feel up to it; no appointment is needed. We discussed your cholesterol and diabetes: - I ordered a cholesterol panel and an A1c test to monitor your cholesterol and blood sugar levels. These can also be completed next week when you feel ready. We discussed your upcoming back procedure: - You are scheduled to have the nerves on the right side of your back treated at the end of this month. You reported that the left side, which was treated last month, has been helpful. We discussed shingles prevention: - I recommend considering the Shingrix vaccine to prevent shingles. This is noted on your after-visit summary for your reference. Follow-up: - Please schedule a follow-up visit with me in 6 months (September) for your routine check-up. I have included lab orders for you to complete before that visit. documented in this encounter [facility] 03-30-[address] [facility] 03-30-2025 History of Present illness Narrative Images from the original note were not included. Chief Complaint Patient presents with: F/U 6 Month HPI Kristina Burch is a 64 year old female who presents here today for a 6 month follow up. Seen in for URI with cough on 03/28/25. Given printed Rx for Augmentin but advised to not fill until 1 week after visit if symptoms do not improve. Pt continues to cough up greenish bloody phlegm, has b/l ear pain with R>L, low grade fever, and nasal drainage. Covid and Flu testing was negative. Kristina reports a recent onset of greenish nasal discharge, facial pain, and dental pain. She also notes bilateral anterior cervical lymphadenopathy with associated tenderness. She reports tinnitus, cephalalgia, and pain extending to the ocular region. She endorses wheezing and dyspnea, which have worsened since her last visit to the [facility] care. She is experiencing a productive cough with green sputum, but denies hemoptysis. She reports epistaxis, stating, it's pure blood sometimes when I blow my nose or it runs. She denies chest pain or palpitations. She reports pharyngitis secondary to constant swallowing of mucus, stating, I'm just constantly swallowing that stuff. I try to spit it out. I've gone through 2 boxes of 124 tube-plied Kleenexes in the last 2 days. Kristina reports recent nausea and diarrhea, but denies emesis. She experiences heartburn every other day, with the last episode occurring 2 days ago. She does not regularly take medication for heartburn. She denies changes in heat or cold tolerance, increased thirst, syncope, seizures, or tremors. Kristina is currently taking fluoxetine for anxiety and depression, trazodone for sleep, and clonazepam for RLS, all of which are effective. She is also taking an qmvh-kxz-clgadao supplement called Dose for fatty liver, which contains turmeric and milk thistle. She has missed doses in the past few days due to feeling unwell. She is awaiting a right-sided nerve ablation for back pain at the end of the month, having had the left side done last month by Dr. Bustillos, which she reports was beneficial. Past medical history, appointments, medications, allergies reviewed. Previous Medical History PAST MEDICAL HISTORY Diagnosis Date Abnormal mammogram Acute respiratory disease due to COVID-19 virus 06/16/[address] Scott Quarles Advance directive discussed with patient 04/06/2022 Discussed 04/06/2022 Arthritis of knee, left 01/31/2013 Arthritis of left hip 01/19/2016 Arthritis of left shoulder region 10/10/2023 Ascending aorta dilatation 07/04/2017 04/19/16: 4.2 cm 06/11/17: 4.4 cm 06/24/18 4.4 cm Bilateral leg edema 02/14/2024 Cervical high risk human papillomavirus (HPV) DNA test positive 05/27/2008 Chronic anxiety 06/01/2021 Chronic diarrhea 12/09/2018 Chronic hypoxemic respiratory failure (HCC) 09/06/2021 resolved Chronic left shoulder pain 10/10/2023 Chronic pain syndrome 11/29/[address] Bustillos as of 11/27/2022 Chronic prescription benzodiazepine use 06/01/2021 DDD (degenerative disc disease), lumbar 07/24/[address] Jose Raul Machuca Dependence on nocturnal oxygen therapy 04/24/2023 Seeing Pulm Elevated hemoglobin A1c 04/24/2023 Essential tremor 04/06/2022 Ex-smoker 04/06/2022 Excessive or frequent menstruation Heavy periods Fatty liver Fatty liver 08/11/2024 US elastography 08/2024: F2-F3 Fibromyalgia 02/26/2014 Gastroesophageal reflux disease without esophagitis 04/24/2023 Hemorrhage of gastrointestinal tract, unspecified History of COVID-19 06/13/202105/2021 Hydrocephalus, adult (HCC) 02/09/2003 Hypertension, essential 01/22/2019 Lichen sclerosus Living will on file 04/06/2022 DPA: Dustin () Lung nodule 01/24/2022 Seeing pulm Migraines 07/26/2021 Used to see neuro and was getting Botox Mild dysplasia of cervix 2006 Mixed hyperlipidemia 01/20/2016 Nonrheumatic mitral valve disorder, unspecified 04/06/2016 Obesity, Class I, BMI 30-34.9 03/13/2024 HUBER on CPAP 10/13/2016 Seeing Sleep [facility]. On CPAP, DME reported [employer] fax [phone] 09/2023 Plantar fasciitis 2018 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 Scott Quarles Postcoital bleeding Primary insomnia 06/13/2021 Primary osteoarthritis of both knees 11/15/2022 Primary osteoarthritis of both shoulders 04/06/2022 [facility] Rectocele 04/19/2007 Renal cyst 07/13/2016 Rheumatoid arthritis (HCC) 04/24/2023 Seeing Rheum. Right hip pain 11/15/2022 Right knee pain RLS (restless legs syndrome) 02/25/2024 Situational mixed anxiety and depressive disorder 11/12/2017 Spinal stenosis, lumbar region, without neurogenic claudication 11/15/2022 Thoracic aortic aneurysm without rupture 2018 Urge incontinence 04/19/2007 Urgency of urination 04/19/2007 Vitamin D deficiency 07/23/2012 Well adult [...] 1991 VAGINAL HYSTERECTOMY UTERUS 250 GM/< 09/04/2008 09/04/08 Vaginal hysterectomy for menorrhagia, irreg menses, post-coital bleeding, mild dysplasia and USI with Dr. Tai assisting and then he did a TVT. Family History FAMILY HISTORY Problem Relation Age of Onset Heart Mother skin cancer on nose Breast Cancer Mother Heart Father Hypertension Father Thyroid Sister No Known Problems Brother No Known Problems Maternal Grandmother No Known Problems Maternal Grandfather Heart Paternal Grandmother Emphysema Paternal Grandfather Thyroid Paternal Aunt Patient Allergies ALLERGIES Allergen [...] on File Prior to Visit Medication Sig amoxicillin-clavulanate potassium (AUGMENTIN) 875-125 mg per tablet Take 1 tablet by mouth two times a day for 5 days. B comp/E/folic acid/mins35/soy (MENOPAUSE SUPPORT PO) Take 1 tablet by mouth once daily. clonazePAM (KLONOPIN) 0.5 mg tablet Take at bedtime for insomnia and RLS. DULERA 50-5 mcg/actuation HFA aerosol inhaler Inhale 2 puffs as instructed two times a day. trospium (SANCTURA) 20 mg tablet Take 1 tablet by mouth two times a day. Patient should start on October 27, 2024. hydroCHLOROthiazide 25 mg tablet Take 1 tablet by mouth once daily. Prn per cardiology atorvastatin (LIPITOR) 40 mg tablet Take 1 tablet by mouth daily at bedtime. For cholesterol. FLUoxetine (PROZAC) 20 mg capsule Take 1 capsule by mouth once daily. traZODone (DESYREL) 100 mg tablet Take 1 tablet by mouth daily at bedtime. albuterol HFA (VENTOLIN HFA) 90 mcg/actuation inhaler Inhale 2 Puffs as instructed every 4 hours as needed for wheezing/shortness of breath. CPAP/BIPAP/OTHER APAP 7-15 cmH2O DME [facility] folic acid 1 mg tablet Take 1 tablet by mouth once daily. azelastine (ASTELIN, ASTEPRO) 0.1% nasal spray Use 2 Sprays in each nostril twice daily as needed. metoprolol succinate ER (TOPROL XL) 50 mg 24 hr tablet Take 2 tablets by mouth once daily. vit C-Zn gluc-herbal no.325 (ELDERBERRY ZINC VIT [...] Social History Tobacco Use Smoking status: Former Current packs/day: 0.00 Average packs/day: 0.1 packs/day for 2.0 years (0.2 ttl pk-yrs) Types: Cigarettes Start date: 04/26/2008 Quit date: 04/26/2010 Years since quittin.9 Smokeless tobacco: Never Vaping Use Vaping status: Never Used Substance Use Topics Alcohol use: Not Currently Comment: 1-2 times a week at most: wine Drug use: Never Review of Symptoms REVIEW OF SYSTEMS GENERAL: No weight loss. See HPI NECK: Negative for goiter, pain and significant neck swelling. Has some tender lymph nodes. Her check and teeth have been tender. RESPIRATORY: Negative for hemoptysis. Lluvia slight wheezing and shortness of breath with the URI. Cough has been productive of yellow green mucus, CARDIOVASCULAR: Negative for chest pain, leg swelling, hypertension, CHF or palpitations GI: some nausea,diarrhea recently. No vomiting. No heartburn or reflux symptoms on a regular basis. PSYCH: Negative for sleep disturbance, mood disorder and recent psychosocial stressors. Doing well on her current meds of Prozac, trazodone and klonopin. ENDOCRINE: Negative for cold or heat intolerance, polyuria, polydipsia and goiter NEURO: No history of syncope, paralysis, seizures or tremors. Some headache's with the URI. SEE HPI EXAM: BP 132/78 Pulse 84 Temp 37.5 C (99.5 F) (Tympanic) Resp 18 Wt 92.9 kg (204 lb 12.8 oz) LMP 08/04/2008 SpO2 96% BMI 32.08 kg/m BP 132/78 Pulse 84 Temp 37.5 C (99.5 F) (Tympanic) Resp 18 Wt 92.9 kg (204 lb 12.8 oz) LMP 08/04/2008 SpO2 96% BMI 32.08 kg/m Last 6 Encounter Wt Readings: Date: Wt: 03/30/2025 92.9 kg (204 lb 12.8 oz) 03/28/2025 93.8 kg (206 lb 12.7 oz) 03/12/2025 93.9 kg (207 lb) 01/16/2025 94.8 kg (209 lb) 12/16/2024 92.4 kg (203 lb 12.8 oz) 12/13/2024 93 kg (205 lb 0.4 oz) General Appearance: Well appearing, alert, in no acute distress, well-hydrated, well nourished. and Obese. Ears: External ears normal, canals clear, right TM is bulging, no erythema or purulence. Left TM is slightly bulging. Also with no erythema or purulence.. Oropharynx: Lips, mucosa, and tongue normal, teeth and gums normal, oropharynx with mild erythema from post nasal drainage.. Neck: Supple, thyroid symmetric, normal size, no bruits. Mild tender anterior lymphadenopathy. Lungs: Lungs clear to auscultation. No wheezing, rhonchi, rales.. Heart: RRR without murmur, gallop, or rubs. No ectopy. Abdomen: Normal abdominal exam, Abdomen soft, non-tender. Bowel sounds normal. No masses, organomegaly. Extremities: No deformities, edema, skin discoloration, . Good capillary refill. . Peripheral Pulses: Normal. Neurologic: Gait normal.. Sensation to light touch intact. Crainal nerves 2-12 grossly intact. Health Maintenance List Shingrix Vaccine(1 of 2) due on 03/30/2026 Influenza Vaccine(1) due on 05/04/2025 Mammogram Screening due on 10/01/2025 Annual PCP Team Chronic Disease Visit due on 03/30/2026 Diabetes Screening due on 09/30/2027 Colorectal Cancer Screening due on 09/23/2029 Lipid Screening due on 09/30/2029 DTaP,Tdap,Td Vaccine(5 - Td or Tdap) due on 03/12/2030 RSV Vaccine(1 - 1-dose 75+ series) due on 2033 Bone Density Screening Completed Advance Directive Discussion Completed Hepatitis C Screening Completed Pneumococcal Vaccine: 50+ Completed Cervical Cancer Screening Discontinued Data reviewed Latest Ref Rng 09/30/2024 Protein, Total 6.3 - 8.0 g/dL 7.3 Albumin 3.9 - 4.9 g/dL 4.5 Calcium 8.5 - 10.2 mg/dL 9.9 Bilirubin, Total 0.2 - 1.3 mg/dL 0.3 Alkaline Phosphatase 34 - 123 U/L 133 (H) AST 13 - 35 U/L 18 ALT 7 - 38 U/L 18 Glucose 74 - 99 mg/dL 96 BUN 7 - 21 mg/dL 15 Creatinine 0.58 - 0.96 mg/dL 0.82 Sodium 136 - 144 mmol/L 139 Potassium 3.7 - 5.1 mmol/L 4.1 Chloride 98 - 107 mmol/L 102 CO2 22 - 30 mmol/L 24 Anion Gap 8 - 15 mmol/L 13 eGFR >=60 mL/min/1.73m 79 Total Cholesterol, Nonfasting <200 mg/dL 228 (H) Triglycerides, Nonfasting <150 mg/dL 348 (H) HDL Cholesterol, Nonfasting >39 mg/dL 40 LDL Cholesterol Calculated, Nonfasting <100 mg/dL 118 (H) Non HDL Cholesterol, Nonfasting <130 mg/dL 188 (H) VLDL Cholesterol, Nonfasting <30 mg/dL 70 (H) Total Chol/HDL Ratio, Nonfasting <5.10 mg/dL 5.70 (H) LDL/HDL Ratio, Nonfasting <2.54 mg/dL 2.95 (H) Hemoglobin A1C 4.3 - 5.6 % 5.8 (H) Estimated Average Glucose mg/dL 120 FIB-4 Calculation: 1.52 at 09/30/2024 12:38 PM Calculated from: SGOT/AST: 18 U/L at 09/30/2024 12:38 PM SGPT/ALT: 18 U/L at 09/30/2024 12:38 PM Platelets: 184 k/uL at 09/30/2024 12:38 PM Age: 64 years Assessment and Plan 1. Hypertension, essential (I10) Blood pressure is well-controlled at 132/78 mmHg. Continue current management. 2. Mixed hyperlipidemia (E78.2) Due for cholesterol panel. Ordered Lipid and LFT's. 3. Gastroesophageal reflux disease without esophagitis (K21.9) Experiencing heartburn every other day, but not requiring regular medication. Monitor symptoms; no medication needed at this time. 4. Elevated hemoglobin A1c (R73.09) Due for A1c check. Ordered A1c test. 5. Ascending aorta dilatation (I77.810) Moderate aortic regurgitation (I35.1) Nonrheumatic mitral valve disorder, unspecified (I34.9) Thoracic aortic aneurysm without rupture, unspecified part (I71.20) Followed by [facility]; no new symptoms such as chest pain, palpitations, or leg edema reported. Continue regular follow-up with cardiology. 6. Hydrocephalus, adult (HCC) (G91.9) No new symptoms such as headaches, seizures, or tremors reported. Continue current management. 7. Other migraine without status migrainosus, not intractable (G43.809) No recent migraine episodes reported. Continue current management. 8. 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 Monitor respiratory symptoms; no immediate changes to management. - cont f/u with pulmonary for management . 9. Rheumatoid arthritis, involving unspecified site, unspecified whether rheumatoid factor present (HCC) (M06.9) No new joint pain or swelling reported. Continue current management. Follows with Rheum for care. 10. Situational mixed anxiety and depressive disorder (F43.23) Chronic anxiety (F41.9) Stable on fluoxetine. Continue fluoxetine. 11. Essential tremor (G25.0) No new tremors reported. Continue current management. 12. Fibromyalgia (M79.7) No new symptoms reported. Continue current management. 13. Obesity, Class I, BMI 30-34.9 (E66.811) No new symptoms reported. Continue current management. 14. Primary insomnia (F51.01) Stable on trazodone. Continue trazodone. 15. RLS (restless legs syndrome) (G25.81) Stable on clonazepam. Continue clonazepam. 16. Vitamin D deficiency (E55.9) No new symptoms reported. Continue current management. 17. Bilateral leg edema (R60.0) No edema reported. Continue current management. 18. Fatty liver (K76.0) Taking an pszb-dzj-gnkvutp supplement containing turmeric and milk thistle. - Ordered liver function tests. - Continue current supplement. 19. Bacterial sinusitis (J32.9) Symptoms include greenish nasal discharge, facial and dental pain, and sore throat. Tympanic membranes are bulging, with the left more affected than the right. - Advised pt to fill the script for Augmentin provided by Urgent care. - Advised to monitor symptoms and report any worsening. 20. Medication management (Z79.899) Current medications include fluoxetine, trazodone, clonazepam, and an zmum-tlj-yyogqsi supplement for fatty liver. Continue current medications. F/u 6 months extensive check CMP, lipid, UA, A1c, TSH, CBC, Vit D Ganga Nunez MD Recording using at[employer]enu software for draft documentation of the visit was discussed with the patient/authorized premium service representative; all questions welcomed and answered. Patient/authorized premium service representative agreed to proceed documented in this encounter [facility] 03-28-2025 Note SARS-COV-2 (AGENT OF COVID-19) RNA: Not detected INFLUENZA A RNA: Not detected INFLUENZA B RNA: Not detected RESPIRATORY SYNCYTIAL VIRUS (RSV) RNA: Not detected [facility] Comment on above: Performed By: #### [id number] ####[facility]CLIA [id number] [address] [facility] 03-28-2025 Telephone encounter Note Please call her OK to stop celebrex Received info from pharmacy , with liver issue ? Need office appt Reginaldo Burnett MD [facility] 03-28-2025 Miscellaneous Notes Please call her OK to stop celebrex Received info from pharmacy , with liver issue ? Need office appt Reginaldo Burnett MD documented in this encounter [facility] 03-28-2025 Instructions Didi Willams APRN.[employer] - 03/28/2025 12:29 PM EDT -Increase fluid intake. --Rest as much as possible. - Nasal saline spray, fabiola pot, flonase Start the antibiotic on if no improvement - take the entire course of antibiotics as prescribed. DO NOT stop taking it early, even if you are feeling better. -Monitor for signs of worsening infection: increased temperature, pain in face, ear pain or headaches or increase in nasal congestion/mucous that is not improving. -Educated patient on side effects of medication. covid and influenza test ordered You will be notified in 12-24 hours, [facility] until fever free for 24 hours without tylenol or ibuprofen Rest, increase water intake Motrin or Tylenol as needed for fever or pain. Salt water gargles, chloraseptic spray or lozenges as needed for sore throat. Warm beverages, honey. Nasal saline spray as needed Cool mist humidifier at night Tylenol (generic acetaminophen) 500 mg-2 tabs every 8 hrs. as needed for fever and aches Ibuprofen 600 mg (3-200mg tablets) every 6 hours -Mucinex (generic is fine) Guaifenesin 1200 mg twice daily to help with cough and to thin out mucus * Seek medical care immediately, call 911, go to ER if you have chest pain, difficulty breathing, shortness of breath, inability to swallow. documented in this encounter [facility] 03-28-[address] [facility] 03-28-2025 History of Present illness Narrative Subjective Kristina Burch is a 64 year old female. The history is provided by the patient. No speech language assistant was used. HPI Kristina Burch is a 64 year old female who presents today for CC of sinus pressure, ear pressure HPI - URI - Onset 3 days ago. - Symptoms: nasal congestion, rhinorrhea with green and bloody discharge, ear pressure, mild sore throat, cough productive of green sputum. - Denies known fever; checked temperature recently with no fever registered. - Denies known exposure to sick contacts. - Using Mucus Relief and Sinus Max for symptom management. BP 131/84 Pulse 84 Temp (!) 38.1 C (100.5 F) Resp 18 Wt 93.8 kg (206 lb 12.7 oz) LMP 08/04/2008 SpO2 96% BMI 32.39 kg/m Social History Tobacco Use Smoking status: Former Current packs/day: 0.00 Average packs/day: 0.1 packs/day for 2.0 years (0.2 ttl pk-yrs) Types: Cigarettes Start date: 04/26/2008 Quit date: 04/26/2010 Years since quittin.9 Smokeless tobacco: Never Vaping Use Vaping status: Never Used Substance Use Topics Alcohol use: Not Currently Comment: 1-2 times a week at most: wine Drug use: Never PAST MEDICAL HISTORY Diagnosis Date Abnormal mammogram Acute respiratory disease due to COVID-19 virus 06/16/[address] Scott Quarles Advance directive discussed with patient 04/06/2022 Discussed 04/06/2022 Arthritis of knee, left 01/31/2013 Arthritis of left hip 01/19/2016 Arthritis of left shoulder region 10/10/2023 Ascending aorta dilatation 07/04/2017 04/19/16: 4.2 cm 06/11/17: 4.4 cm 06/24/18 4.4 cm Cervical high risk human papillomavirus (HPV) DNA test positive 05/27/2008 Chronic anxiety 06/01/2021 Chronic diarrhea 12/09/2018 Chronic hypoxemic respiratory failure (HCC) 09/06/2021 resolved Chronic pain syndrome 11/29/[address] Bustillos as of 11/27/2022 Chronic prescription benzodiazepine use 06/01/2021 DDD (degenerative disc disease), lumbar 07/24/[address] Jose Raul Machuca Dependence on nocturnal oxygen therapy 04/24/2023 Seeing Pulm Elevated hemoglobin A1c 04/24/2023 Essential tremor 04/06/2022 Ex-smoker 04/06/2022 Excessive or frequent menstruation Heavy periods Fatty liver Fatty liver 08/11/2024 US elastography 08/2024: F2-F3 Fibromyalgia 02/26/2014 Gastroesophageal reflux disease without esophagitis 04/24/2023 Hemorrhage of gastrointestinal tract, unspecified History of COVID-19 06/13/202105/2021 Hydrocephalus, adult (HCC) 02/09/2003 Hypertension, essential 01/22/2019 Lichen sclerosus Living will on file 04/06/2022 DPA: Dustin () Lung nodule 01/24/2022 Seeing pulm Migraines 07/26/2021 Used to see neuro and was getting Botox Mild dysplasia of cervix 2006 Mixed hyperlipidemia 01/20/2016 Nonrheumatic mitral valve disorder, unspecified 04/06/2016 Obesity, Class I, BMI 30-34.9 03/13/2024 Obstructive sleep apnea 10/13/2016 DME - [facility] Plantar fasciitis 2018 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 Scott Quarles Postcoital bleeding Primary insomnia 06/13/2021 Primary osteoarthritis of both knees 11/15/2022 Primary osteoarthritis of both shoulders 04/06/2022 [facility] Rectocele 04/19/2007 Renal cyst 07/13/2016 Rheumatoid arthritis (HCC) 04/24/2023 Seeing Rheum. Right knee pain RLS (restless legs syndrome) 02/25/2024 Situational mixed anxiety and depressive disorder 11/12/2017 Spinal stenosis, lumbar region, without neurogenic claudication 11/15/2022 Thoracic aortic aneurysm without rupture 2018 Urge incontinence 04/19/2007 Vitamin D deficiency 07/23/2012 Well adult exam 06/13/2021 Last done: 06/13/2021 I have confirmed and edited as necessary, the [facility] Review of Systems Constitutional: Negative for chills, fatigue and fever. HENT: Positive for ear pain (pressure), rhinorrhea, sinus pressure, sinus pain, sneezing and sore throat. Negative for congestion. Respiratory: Positive for cough and shortness of breath. Negative for wheezing. Cardiovascular: Negative for chest pain. Musculoskeletal: Negative for arthralgias and myalgias. Skin: Negative for color change and rash. Neurological: Negative for headaches. Objective BP 131/84 Pulse 84 Temp (!) 38.1 C (100.5 F) Resp 18 Wt 93.8 kg (206 lb 12.7 oz) LMP 08/04/2008 SpO2 96% BMI 32.39 kg/m Physical Exam Vitals and nursing note reviewed. HENT: Head: Normocephalic and atraumatic. Right Ear: Tympanic membrane, ear canal and external ear normal. No middle ear effusion. Tympanic membrane is not injected, erythematous, retracted or bulging. Left Ear: Tympanic membrane, ear canal and external ear normal. No middle ear effusion. Tympanic membrane is not injected, erythematous, retracted or bulging. Nose: Mucosal edema, congestion and rhinorrhea present. Right Sinus: Maxillary sinus tenderness present. No frontal sinus tenderness. Left Sinus: Maxillary sinus tenderness present. No frontal sinus tenderness. Mouth/Throat: Pharynx: Uvula midline. Postnasal drip present. No oropharyngeal exudate or posterior oropharyngeal erythema. Tonsils: No tonsillar abscesses. Eyes: Conjunctiva/sclera: Conjunctivae normal. Pupils: Pupils are equal, round, and reactive to light. Cardiovascular: Rate and Rhythm: Normal rate and regular rhythm. Heart sounds: Normal heart sounds. Pulmonary: Effort: Pulmonary effort is normal. No respiratory distress. Breath sounds: Normal breath sounds. No wheezing or rales. Musculoskeletal: Cervical back: Normal range of motion. Lymphadenopathy: Head: Right side of head: No submental, submandibular, tonsillar, preauricular or posterior auricular adenopathy. Left side of head: No submental, submandibular, tonsillar, preauricular or posterior auricular adenopathy. Cervical: No cervical adenopathy. Right cervical: No posterior cervical adenopathy. Left cervical: No posterior cervical adenopathy. Upper Body: Right upper body: No supraclavicular adenopathy. Left upper body: No supraclavicular adenopathy. Skin: General: Skin is warm and dry. Assessment & Plan URI with cough and congestion Appears to be viral uri Continue comfort measures mucinex, flonase, saline, tylenol, ibuprofen Testing ordered - covid flu rsv Comfort measures discussed - see patient instructions. When to seek higher level of care Notified in 12-24 hours with results, available on [employer] Home isolation until fever free for 24 hours without tylenol ibuprofen Delayed RX for antibiotic given if no improvement in 4 days. History and Record Review External record(s) reviewed: prior labs/imaging. Findings from review of prior labs/imaging: Previous Renal Function Panel Reviewed 05/30/2024: BUN 20; Creatinine 0.83; Estimated Glomerular Filtration Rate 78 07/10/2024: BUN 21; Creatinine 0.83; Estimated Glomerular Filtration Rate 78 09/30/2024: BUN 15; Creatinine 0.82; Estimated Glomerular Filtration Rate 79 Differential Diagnoses - viral uri is more likely for the following reason(s): suggested by H&P - bacterial sinusitis is less likely for the following reason(s): H&P not suggestive Diagnosis and treatment plan were discussed and questions were answered to the patient's satisfaction. Pt acknowledged understanding of concepts and follow up plan. Specific signs and symptoms that would indicate the need for higher level of care were discussed in detail warranting prompt ER evaluation. Didi Willams APRN.E[employer] documented in this encounter [facility] 03-12-2025 History of Present illness Narrative Images from the original note were not included. [facility] Follow up/ Established patient visit Assessment/Plan from last visit: Date of last visit : 09/12/24 ASSESSMENT/PLAN: 1. Insomnia, unspecified type - ICD9: 780.52, ICD10: G47.00 (primary diagnosis) Overall doing much better - unclear as to what has made the difference, although patient feels it was the increase in PAP setting. That said, PAP data download essentially unchanged and not suggesting that pt is using higher pressures. No matter, will make no changes to med regimen at this time with pt understanding also the superintendent terminal risks of some of her meds including Klonopin. Refills provided for both Klonopin 0.5mg QHS and Trazodone 100mg QHS. Encouraged appropriate sleep hygiene. 2. RLS (restless legs syndrome) - ICD9: 333.94, ICD10: G25.81 Stable on Klonopin as above. 3. Long-term current use of benzodiazepine - ICD9: V58.69, ICD10: Z79.899 - TOXICOLOGY SCREEN, ROUTINE URINE - BENZO CONFIRM, URINE 4. HUBER on CPAP - ICD9: 327.23, ICD10: G47.33 AHI normalized. Compliance confirmed on PAP data download. Does have mask leak but pt choosing not to change masks at this time stating it is comfortable and that she is tolerating it. Reminded to clean and replace PAP equipment regularly. Advised pt not to drive or operate heavy machinery if sleepy. 5. Hypoxia - ICD9: 799.02, ICD10: R09.02 Pt continues to use O2 with PAP. Uncertain if necessary. D/w pt performing a nocturnal oximetry study at home with PAP but without O2. Pt declines at this time and wants to d/w Dr. Quarles at next visit. Will update Dr. Quarles. Hi Waddell MD CURRENT VISIT: 03/12/2025 Kristina Burch is a 64 year old female presents for routine follow up for chronic insomnia, RLS, HUBER on CPAP, nocturnal hypoxia. Needs refill of clonazepam. INSOMNIA She reports insomnia is well controlled as long as she takes the combination of trazodone 100 mg and clonazepam. If she doesn't take both then she has difficulty falling asleep and staying asleep. Bedtime is 8 PM, sleep onset one hour, WASO 0-1x for urination, alarm at 7 AM or might sleep until 8 AM. No naps. Sleep feels more refreshing over time. Thinks less tossing and turning than in the past. Clonazepam 0.5 mg #30 last filled 02/09/25 PDMP website checked and validated. All prescriptions have been APPROPRIATELY filled. No suspicious activity was identified. 03/12/2025 by Latrice Parker APRN.E[employer] RLS Well controlled with clonazepam NOCTURNAL HYPOXIA On supplemental O2 at night via bleed-in to CPAP Reviewed Pulm notes, from 01/16/25 note: 4. Nocturnal hypoxemia - ICD9: 327.24, ICD10: G47.34 - continues to be compliant and benefit from supplemental O2 bleed in to CPAP SLEEP APNEA Sleep apnea type : HUBER, Most Recent Apnea-Hypopnea Index (AHI): 7.6 on split study Treatment : PAP therapy DME: [employer] PAP History: Uses AutoPAP for 9 hours per night, 7 nights per week. Current PAP settin-15 cm H2O with O2 bleed-in 2L Difficulties with AutoPAP: None Reviewed objective PAP compliance data: AHI 0.6, P90 10.7 cmH2O Mask type: nasal pillow interface with apical hose Mask issues: none There is a perceived benefit by the patient ------- PATIENT-ENTERED QUESTIONNAIRE SLEEP SCORES: 05/29/2024 Sleep Questions Reason for visit: Sleep apnea Difficulty falling or staying asleep or poor sleep quality Excessive daytime sleepiness Percent of nights CPAP used at least 4 hours: 28 Accidents or near accidents due to drowsy drivin Multiple values from one day are sorted in reverse-chronological order 03/29/2022 02/25/2024 05/29/2024 [place] Sleepiness Scale Score Incomplete 13 (Excessive daytime sleepiness present) 9 (No clinically significant daytime sleepiness) 05/29/2024 01/11/2025 03/08/2025 PROMIS CAT Sleep Disturbance PROMIS Sleep Disturbance T-Score 78 (severe) 49 (within normal limits) 51 (within normal limits) PROMIS Sleep Disturbance Percentile 0 54 46 03/29/2022 02/25/2024 05/29/2024 Insomnia Severity Index Score 24 21 21 03/29/2022 05/29/2024 Restless Leg Syndrome Score Incomplete Incomplete 07/14/2024 01/11/2025 03/08/2025 PHQ-9 Score 5 9 5 05/29/2024 09/08/2024 03/08/2025 PROMIS Global Health - (T-Scores - the mean of general population = 50. Five points is a clinically meaningful difference.) Physical T-Score 26.7 26.7 39.8 Mental T-Score 33.8 33.8 28.4 41.1 ALLERGIES Allergen Reactions Dilaudid [Hydromorp* Mental Status Change, Other: See Comments Hallucinations Sulfa (Sulfonamide * Rash Ultram [Tramadol Hc* GI Upset Pt. tried again on 02-13 and became very ill with GI issues Oxycontin [Oxycodon* Swelling Relafen [Nabumetone] GI Upset Sertraline Other: See Comments Tremors right upper extremity. CURRENT MEDICATIONS: B comp/E/folic acid/mins35/soy (MENOPAUSE SUPPORT PO) Take 1 tablet by mouth once daily. celecoxib (CELEBREX) 200 mg capsule Take 200 mg by mouth as needed for pain. DULERA 50-5 mcg/actuation HFA aerosol inhaler Inhale 2 puffs as instructed two times a day. trospium (SANCTURA) 20 mg tablet Take 1 tablet by mouth two times a day. Patient should start on October 27, 2024. hydroCHLOROthiazide 25 mg tablet Take 1 tablet by mouth once daily. Prn per cardiology atorvastatin (LIPITOR) 40 mg tablet Take 1 tablet by mouth daily at bedtime. For cholesterol. FLUoxetine (PROZAC) 20 mg capsule Take 1 capsule by mouth once daily. traZODone (DESYREL) 100 mg tablet Take 1 tablet by mouth daily at bedtime. albuterol HFA (VENTOLIN HFA) 90 mcg/actuation inhaler Inhale 2 Puffs as instructed every 4 hours as needed for wheezing/shortness of breath. CPAP/BIPAP/OTHER APAP 7-15 cmH2O DME [facility] folic acid 1 mg tablet Take 1 tablet by mouth once daily. azelastine (ASTELIN, ASTEPRO) 0.1% nasal spray Use 2 Sprays in each nostril twice daily as needed. metoprolol succinate ER (TOPROL XL) 50 mg 24 hr tablet Take 2 tablets by mouth once daily. vit C-Zn gluc-herbal no.325 (ELDERBERRY ZINC VIT C) 90-15 mg lozg Use 1 Lozenge as instructed twice daily. calcium carbonate (CALTRATE 600 ORAL) Take 1 tablet by mouth once daily. multivitamin tablet Take 1 tablet by mouth once daily. BIOTIN ORAL Take 1 tablet by mouth once daily. Cholecalciferol, Vitamin D3, 2,000 unit cap Take 10,000 Units by mouth once daily. clonazePAM (KLONOPIN) 0.5 mg tablet Take at bedtime for insomnia and RLS. Latest Reference Range & Units 09/12/24 11:12 Amphetamines, Urine Negative Negative Barbiturates, Urine Negative Negative Benzodiazepines, Urine Negative Negative Cannabinoids, Urine Negative Negative Cocaine, Urine Negative Negative Ethanol, Urine <11 mg/dL <11 Opiates, Urine Negative Negative Oxycodone, Urine Negative Negative Phencyclidine, Urine Negative Negative 7-Aminoclonazepam, Urine <25 ng/mL 129 (H) Alpha-hydroxyalprazolam, Urine <25 ng/mL <25 Alpha-hydroxytriazolam, Urine <25 ng/mL <25 Lorazepam, Urine <25 ng/mL <25 Nordiazepam, Urine <25 ng/mL <25 Oxazepam, Urine <25 ng/mL <25 Temazepam, Urine <25 ng/mL <25 Benzo Confirm, Note See comment Specimen Validity Creatinine 20.0 - 300.0 mg/dL 153.0 Specimen Validity Nitrites <500 mg/L <50 Specimen Validity Oxidants <200 mg/L <38 Specimen Validity PH 4.5 - 8.0 5.2 Specimen Validity Quality Specimen quality results within acceptable limits Specimen Validity Specific [place] 1.003 - 1.035 1.015 (H): Data is abnormally high PHYSICAL EXAMINATION: Vital Signs: BP 115/71 Pulse 66 Resp 16 Wt 93.9 kg (207 lb) LMP 08/04/2008 BMI 32.42 kg/m PHYSICAL EXAM: General appearance: pleasant, NAD Mental status: alert and oriented, able to provide own history Constitutional: obese Skin: No visible rashes on exposed skin Neuro: No focal deficits observed, no tremors Assessment /Plan Chronic insomnia (primary encounter diagnosis) Rls (restless legs syndrome) Huber on cpap Nocturnal hypoxia Requires supplemental oxygen Kristina Burch is a 64 year old female with: HUBER and Nocturnal Hypoxia --Patient is compliant with PAP therapy and reports subjective benefits from treatment --We reviewed PAP compliance report; AHI is normalized (0.6) - Continue Auto CPAP at 7-15 cmH2O with O2 2L bleed-in. DME [facility]. - Remember to clean your mask and equipment regularly, as directed. - You should be eligible for new supplies approximately every 3-6 months, depending on your insurance coverage. Contact your Durable Medical Equipment (DME) company for new supplies as needed. INSOMNIA and RLS Both are well managed with clonazepam 0.5 mg QHS, refill sent in She also takes trazodone 100 mg Not due for UTOX until 09/2025 Follow up [address] Tracy Parker APRN.[employer] documented in this encounter [facility] 03-12-[address] [facility] 01-19-2025 Telephone encounter Note Voice message left for patient to schedule an appointment with Dr. Wong. Informed that Azelastine is OTC. [facility] 01-19-2025 Miscellaneous Notes Voice message left for patient to schedule an appointment with Dr. Wong. Informed that Azelastine is OTC. documented in this encounter [facility] 01-16-2025 Tyler Boalños APRN.VICKY - 01/16/2025 9:05 AM EDT Today, we are changing your dose of Dulera from 100 to 50. Try using Dulera more regularly to see if you notice more consistent control of symptoms. Continue Albuterol as needed. Nasal spray as needed. documented in this encounter [facility] 01-16-2025 History of Present illness Narrative Images from the original note were not included. Pulmonary Medicine Patients name: Kristina Burch PCP: Ganga Nunez MD CC: follow-up HPI: Kristina Burch is a 64 year old female former minimal smoker with PMH significant for obesity, HUBER on CPAP with oxygen bleed-in, hydrocephalus, fibromyalgia, MANDIE, HLD history of COVID PNA 2020 with hypoxemic respiratory failure (previously on O2), chronic post COVID dyspnea, and stable lung nodule. Current therapy consists of Dulera and PRN Albuterol. She presents today for follow-up. MINE 09/2024 and was switched to Dulera d/t nausea associated with Symbicort. Using Dulera 3x a week when she feels like she needs it. Reports that any type of steroid causes weight gain. Overall, breathing symptoms have been getting better, has good days and bad days. Today, patient reports she continues to cough up phelgm in the morning, clear/white sputum. Has some sinus congestion/PND at times but uses Astelin if needed. Notes occasional wheezing but denies chest tightness. Exertional dyspnea has improved from prior. No recent fevers, chills, or night sweats. No recent hospitalizations or ED visits or upper respiratory infections. Albuterol use is a few times a week. DME: [facility] Nocturnal 02, 2L PAST MEDICAL HISTORY Diagnosis Date Abnormal mammogram Acute respiratory disease due to COVID-19 virus 06/16/[address] Scott Quarles Advance directive discussed with patient 04/06/2022 Discussed 04/06/2022 Arthritis of knee, left 01/31/2013 Arthritis of left hip 01/19/2016 Arthritis of left shoulder region 10/10/2023 Ascending aorta dilatation 07/04/2017 04/19/16: 4.2 cm 06/11/17: 4.4 cm 06/24/18 4.4 cm Cervical high risk human papillomavirus (HPV) DNA test positive 05/27/2008 Chronic anxiety 06/01/2021 Chronic diarrhea 12/09/2018 Chronic hypoxemic respiratory failure (HCC) 09/06/2021 resolved Chronic pain syndrome 11/29/[address] Bustillos as of 11/27/2022 Chronic prescription benzodiazepine use 06/01/2021 DDD (degenerative disc disease), lumbar 07/24/[address] Jose Raul Machuca Dependence on nocturnal oxygen therapy 04/24/2023 Seeing Pulm Elevated hemoglobin A1c 04/24/2023 Essential tremor 04/06/2022 Ex-smoker 04/06/2022 Excessive or frequent menstruation Heavy periods Fatty liver Fatty liver 08/11/2024 US elastography 08/2024: F2-F3 Fibromyalgia 02/26/2014 Gastroesophageal reflux disease without esophagitis 04/24/2023 Hemorrhage of gastrointestinal tract, unspecified History of COVID-19 06/13/202105/2021 Hydrocephalus, adult (HCC) 02/09/2003 Hypertension, essential 01/22/2019 Lichen sclerosus Living will on file 04/06/2022 DPA: Dustin () Lung nodule 01/24/2022 Seeing pulm Migraines 07/26/2021 Used to see neuro and was getting Botox Mild dysplasia of cervix 2006 Mixed hyperlipidemia 01/20/2016 Nonrheumatic mitral valve disorder, unspecified 04/06/2016 Obesity, Class I, BMI 30-34.9 03/13/2024 Obstructive sleep apnea 10/13/2016 DME - [facility] Plantar fasciitis 2018 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 Scott Quarles Postcoital bleeding Primary insomnia 06/13/2021 Primary osteoarthritis of both knees 11/15/2022 Primary osteoarthritis of both shoulders 04/06/2022 Seeing [facility] Rectocele 04/19/2007 Renal cyst 07/13/2016 Rheumatoid arthritis (HCC) 04/24/2023 Seeing Rheum. Right knee pain RLS (restless legs syndrome) 02/25/2024 Situational mixed anxiety and depressive disorder 11/12/2017 Spinal stenosis, lumbar region, without neurogenic claudication 11/15/2022 Thoracic aortic aneurysm without rupture 2018 Urge [...] Other: See Comments Comment:Tremors right upper extremity. Medication List Accurate as of January 13, 2025 9:43 PM. If you have any questions, ask your nurse or doctor. CONTINUE taking these medications albuterol HFA 90 mcg/actuation inhaler Commonly known as: VENTOLIN HFA Inhale 2 Puffs as instructed every 4 hours as needed for wheezing/shortness of breath. atorvastatin 40 mg tablet Commonly known as: LIPITOR Take 1 tablet by mouth daily at bedtime. For cholesterol. azelastine 0.1% nasal spray Use 2 Sprays in each nostril twice daily as needed. baclofen 5 mg tablet BIOTIN ORAL CALTRATE 600 ORAL Cholecalciferol (Vitamin D3) 50 mcg (2,000 unit) Cap clonazePAM 0.5 mg tablet Commonly known as: KlonoPIN Take at bedtime for insomnia and RLS. CPAP [employer] supplies for AutoPAP 6-11 cm H20 including mask, heated tubing, humidity, filters. Fax 30 day download report to [phone] to assess residual ahi. CPAP/BIPAP/OTHER APAP 7-15 cmH2O DME [facility] ELDERBERRY ZINC VIT C 90-15 mg Lozg Generic drug: vit C-Zn gluc-herbal no.325 Use 1 Lozenge as instructed twice daily. estradiol 0.01 % (0.1 mg/gram) vaginal cream Commonly known as: ESTRACE Use 1 gram vaginally at bedtime for 2 weeks then 2-3 time/weeks for maintenance. FLUoxetine 20 mg capsule Commonly known as: PROzac Take 1 capsule by mouth once daily. folic acid 1 mg tablet Take 1 tablet by mouth once daily. hydroCHLOROthiazide 25 mg tablet Take 1 tablet by mouth once daily. Prn per cardiology metoprolol succinate ER 50 mg 24 hr tablet Commonly known as: TOPROL XL Take 2 tablets by mouth once daily. mometasone-formoterol 100-5 mcg/actuation inhaler Commonly known as: DULERA Inhale 2 Puffs as instructed two times a day. multivitamin tablet pantoprazole DR 40 mg tablet Commonly known as: PROTONIX traZODone 100 mg tablet Commonly known as: DESYREL Take 1 tablet by mouth daily at bedtime. trospium 20 mg tablet Commonly known as: SANCTURA Take 1 tablet by mouth two times a day. Patient should start on October 27, 2024. DATA: I personally reviewed and analyzed all labs, radiographs and available pulmonary function testing PFT: 06/2024 Spirometry is normal. The increase in FEF 25-75 post-bronchodilator reflects an improvement in the small airway obstruction. CXR: Last XR Chest - Impression Only XR CHEST 2V FRONTAL/LAT Exam End: 09/30/2024 11:06 AM (Final result) Impression: IMPRESSION: Stable exam. ... Review of Systems Constitutional: Negative for activity change, appetite change and unexpected weight change. HENT: Positive for congestion. Negative for mouth sores and postnasal drip. Respiratory: Positive for cough, shortness of breath and wheezing. Negative for chest tightness. Cardiovascular: Negative for chest pain, palpitations and leg swelling. Allergic/Immunologic: Negative for environmental allergies. Neurological: Negative for dizziness, weakness and light-headedness. BP 112/71 Pulse (!) 58 Wt 94.8 kg (209 lb) LMP 08/04/2008 SpO2 95% BMI 32.73 kg/m Physical Exam Vitals reviewed. Constitutional: General: She is not in acute distress. Appearance: Normal appearance. She is not ill-appearing. HENT: Head: Normocephalic. Nose: No rhinorrhea. Mouth/Throat: Mouth: Mucous membranes are moist. Pharynx: No posterior oropharyngeal erythema. Cardiovascular: Rate and Rhythm: Normal rate and regular rhythm. Heart sounds: Normal heart sounds. Pulmonary: Effort: Pulmonary effort is normal. No respiratory distress. Breath sounds: No wheezing or rhonchi. Musculoskeletal: Right lower leg: No edema. Left lower leg: No edema. Lymphadenopathy: Cervical: No cervical adenopathy. Skin: General: Skin is warm and dry. Capillary Refill: Capillary refill takes less than 2 seconds. Neurological: General: No focal deficit present. Mental Status: She is alert. ASSESSMENT/PLAN: 1. Small airways disease - ICD9: 518.89, ICD10: J98.4 (primary diagnosis) 2. Post-COVID chronic dyspnea - ICD9: 786.09, 139.8, ICD10: R06.09, U09.9 - Overall improvement in symptoms but would benefit from more regular use of inhaled therapy. - Dulera dose decreased and advised more regular use. - Continue Albuterol as needed. - DULERA 50 MCG-5 MCG/ACTUATION HFA AEROSOL INHALER 3. Post-nasal drip - ICD9: 784.91, ICD10: R09.82 - continue Astelin nasal spray as needed 4. Nocturnal hypoxemia - ICD9: 327.24, ICD10: G47.34 - continues to be compliant and benefit from supplemental O2 bleed in to CPAP F/u 6 months Portions of this documentation were copied and pasted from previous office visit notes in order to provide a cohesive continuity of the history. The note has been reviewed and edited and updated as necessary. Tyler Wray APRN.VICKY I spent a total of 27 minutes on the date of the service which included preparing to see the patient, [id number] patient care, completing clinical documentation, performing a medically appropriate examination, counseling and educating the patient/family/caregiver, and ordering medications, tests, or procedures. documented in this encounter [facility] 01-16-[address] [facility] 12-19-2024 Telephone encounter Note Prescription Refill Information The patient has been identified by name and date of : Yes Caregiver verified no other encounters exist for this prescription request: Yes Caregiver confirmed with patient/requestor that no other refills are due, in the near future, with this provider at this time: Yes The last office visit in the department: 09/30/24 Does the patient have a future office visit with this provider/department: Yes, 03/30/25 Requested Prescriptions Pending Prescriptions Disp Refills metoprolol succinate ER (TOPROL XL) 50 mg 24 hr tablet 180 tablet Sig: Take 2 tablets by mouth once daily. *Rx on 04/06/22 was a med update. Per pharm dispense report rx has not been filled in the last 4 months. Per last Cardiology note from [facility] (06/17/24) pt takes metoprolol succinate 100mg as needed. Med list updated. MC message to pt advising her to contact Cardiology for refill. Abelardo Duran LPN December 19, 2024 8:45 AM [facility] 12-19-2024 Miscellaneous Notes Prescription Refill Information The patient has been identified by name and date of : Yes Caregiver verified no other encounters exist for this prescription request: Yes Caregiver confirmed with patient/requestor that no other refills are due, in the near future, with this provider at this time: Yes The last office visit in the department: 09/30/24 Does the patient have a future office visit with this provider/department: Yes, 03/30/25 Requested Prescriptions Pending Prescriptions Disp Refills metoprolol succinate ER (TOPROL XL) 50 mg 24 hr tablet 180 tablet Sig: Take 2 tablets by mouth once daily. *Rx on 04/06/22 was a med update. Per pharm dispense report rx has not been filled in the last 4 months. Per last Cardiology note from [facility] (06/17/24) pt takes metoprolol succinate 100mg as needed. Med list updated. MC message to pt advising her to contact Cardiology for refill. Abelardo Duran LPN December 19, 2024 8:45 AM documented in this encounter [facility] 12-18-2024 Telephone encounter Note Patient notified and voiced understanding. Suzanne Spain RN [facility] 12-18-2024 Miscellaneous Notes Patient notified and voiced understanding. Suzanne Spain RN Please let the pt know that she does have a UTI and I sent Macrobid in for her. Sarah Lopez APRN.CNP documented in this encounter [facility] 12-18-2024 Telephone encounter Note Please let the pt know that she does have a UTI and I sent Macrobid in for her. Sarah Lopez APRN.[employer] [facility] 12-16-[address] 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 Kristina Burch is a 64 year old female who presents for problem visit vaginal odor, discharge. HPI: symptoms have been on/off over the past few months. She had been treated, along with doing probiotic and boric acid. Burning with urination, blood in urine OB History Gravida3 Para3 Term0 Preterm0 AB0 Living3 SAB0 IAB0 Ectopic0 Multiple0 Live Births0 [employer] History LMP: 08/04/2008, Hysterectomy Age at Menarche: Age at First : Age at Menopause: [employer] History Comments: Sexual Activity: Yes; Male; hysterectomy Contraception: Tubal Ligation PAST MEDICAL HISTORY Diagnosis Date Abnormal mammogram Acute respiratory disease due to COVID-19 virus 06/16/[address] Scott Quarles Advance directive discussed with patient 04/06/2022 Discussed 04/06/2022 Arthritis of knee, left 01/31/2013 Arthritis of left hip 01/19/2016 Arthritis of left shoulder region 10/10/2023 Ascending aorta dilatation 07/04/2017 04/19/16: 4.2 cm 06/11/17: 4.4 cm 06/24/18 4.4 cm Cervical high risk human papillomavirus (HPV) DNA test positive 05/27/2008 Chronic anxiety 06/01/2021 Chronic diarrhea 12/09/2018 Chronic hypoxemic respiratory failure (HCC) 09/06/2021 resolved Chronic pain syndrome 11/29/[address] Bustillos as of 11/27/2022 Chronic prescription benzodiazepine use 06/01/2021 DDD (degenerative disc disease), lumbar 07/24/[address] Jose Raul Machuca Dependence on nocturnal oxygen therapy 04/24/2023 Seeing Pulm Elevated hemoglobin A1c 04/24/2023 Essential tremor 04/06/2022 Ex-smoker 04/06/2022 Excessive or frequent menstruation Heavy periods Fatty liver Fatty liver 08/11/2024 US elastography 08/2024: F2-F3 Fibromyalgia 02/26/2014 Gastroesophageal reflux disease without esophagitis 04/24/2023 Hemorrhage of gastrointestinal tract, unspecified History of COVID-19 06/13/202105/2021 Hydrocephalus, adult (HCC) 02/09/2003 Hypertension, essential 01/22/2019 Lichen sclerosus Living will on file 04/06/2022 DPA: Dustin () Lung nodule 01/24/2022 Seeing pulm Migraines 07/26/2021 Used to see neuro and was getting Botox Mild dysplasia of cervix 2006 Mixed hyperlipidemia 01/20/2016 Nonrheumatic mitral valve disorder, unspecified 04/06/2016 Obesity, Class I, BMI 30-34.9 03/13/2024 Obstructive sleep apnea 10/13/2016 DME - [facility] Plantar fasciitis 2018 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 Scott Quarles Postcoital bleeding Primary insomnia 06/13/2021 Primary osteoarthritis of both knees 11/15/2022 Primary osteoarthritis of both shoulders 04/06/2022 Seeing [facility] Rectocele 04/19/2007 Renal cyst 07/13/2016 Rheumatoid arthritis (HCC) 04/24/2023 Seeing Rheum. Right knee pain RLS (restless legs syndrome) 02/25/2024 Situational mixed anxiety and depressive disorder 11/12/2017 Spinal stenosis, lumbar region, without neurogenic claudication 11/15/2022 Thoracic aortic aneurysm without rupture 2018 Urge incontinence 04/19/2007 Vitamin D deficiency 07/23/2012 Well adult exam 06/13/2021 Last done: 06/13/2021 PAST SURGICAL HISTORY Procedure Laterality Date APPENDECTOMY 1987 COLONOSCOPY 08/19/2013 COLONOSCOPY FLX DX W/COLLJ SPEC WHEN PFRMD 09/19/2019 Colonoscopy COLONOSCOPY SCREENING 05/05/2022 repeat in 5 years COLONOSCOPY W/BIOPSY SINGLE/MULTIPLE 03/15/2009 minimal colitis-repeat in -2018 COLPOSCOPY CERVIX UPPER/ADJACENT VAGINA Colposcopy DILATION & [...] 1991 VAGINAL HYSTERECTOMY UTERUS 250 GM/< 09/04/2008 09/04/08 Vaginal hysterectomy for menorrhagia, irreg menses, post-coital bleeding, mild dysplasia and USI with Dr. Tai assisting and then he did a TVT. FAMILY HISTORY Problem Relation Age of Onset Heart Mother skin cancer on nose Breast Cancer Mother Heart Father Hypertension Father Thyroid Sister No Known Problems Brother No Known Problems Maternal Grandmother No Known Problems Maternal Grandfather Heart Paternal Grandmother Emphysema Paternal Grandfather Thyroid Paternal Aunt Social History Tobacco Use Smoking status: Former Current packs/day: 0.00 Average packs/day: 0.1 packs/day for 2.0 years (0.2 ttl pk-yrs) Types: Cigarettes Start date: 04/26/2008 Quit date: 04/26/2010 Years since quittin.6 Smokeless tobacco: Never Vaping Use Vaping status: Never Used Substance Use Topics Alcohol use: Not Currently Comment: 1-2 times a week at most: wine Drug use: Never Current Outpatient Medications Medication Sig clonazePAM (KLONOPIN) 0.5 mg tablet Take at bedtime for insomnia and RLS. pantoprazole DR (PROTONIX) 40 mg tablet Take 40 mg by mouth once daily. baclofen 5 mg tablet trospium (SANCTURA) 20 mg tablet Take 1 tablet by mouth two times a day. Patient should start on October 27, 2024. hydroCHLOROthiazide 25 mg tablet Take 1 tablet by mouth once daily. Prn per cardiology atorvastatin (LIPITOR) 40 mg tablet Take 1 tablet by mouth daily at bedtime. For cholesterol. FLUoxetine (PROZAC) 20 mg capsule Take 1 capsule by mouth once daily. mometasone-formoterol (DULERA) 100-5 mcg/actuation inhaler Inhale 2 Puffs as instructed two times a day. traZODone (DESYREL) 100 mg tablet Take 1 tablet by mouth daily at bedtime. albuterol HFA (VENTOLIN HFA) 90 mcg/actuation inhaler Inhale 2 Puffs as instructed every 4 hours as needed for wheezing/shortness of breath. CPAP/BIPAP/OTHER APAP 7-15 cmH2O DME [employer] folic acid 1 mg tablet Take 1 tablet by mouth once daily. azelastine (ASTELIN, ASTEPRO) 0.1% nasal spray Use 2 Sprays in each nostril twice daily as needed. metoprolol succinate ER (TOPROL XL) 50 mg 24 hr tablet Take 2 tablets by mouth once daily. CPAP Lifetime supplies for AutoPAP 6-11 cm H20 including mask, heated tubing, humidity, filters. Fax day download report to [phone] to assess residual ahi. vit C-Zn gluc-herbal [...] Take 10,000 Units by mouth once daily. estradiol (ESTRACE) 0.01 % (0.1 mg/gram) vaginal cream Use 1 gram vaginally at bedtime for 2 weeks then 2-3 time/weeks for maintenance. No current facility-administered medications for this visit. Allergies As of Date: 12/16/2024 Allergen Noted Reaction DILAUDID [HYDROMORPHONE (PF)] 05/24/2018 Mental Status Change and Other: See Comments SULFA (SULFONAMIDE ANTIBIOTICS) 02/09/2003 Rash ULTRAM [TRAMADOL HCL] 05/01/2007 GI Upset OXYCONTIN [OXYCODONE HCL] 12/29/2008 Swelling RELAFEN [NABUMETONE] 07/28/2005 GI Upset SERTRALINE 08/18/2022 Other: See Comments Fully Assessed 12/16/2024 REVIEW OF SYSTEMS Abdomen: No bloating, early satiety, indigestion, or increased flatulence. No abdominal pain, nausea, vomiting, diarrhea, or constipation. Bladder: + dysuria, gross hematuria, urinary frequency, urinary urgency, incontinence. Expanded ROS: N/A Allergies and current medication updated:Yes SENSITIVE EXAM: The sensitive examination was discussed with the Patient or Patient's Authorized Ux Information Architect. As applicable, any other physician, advance practice provider, medical student, or other health professional student that will be observing or involved in the sensitive examination for educational or training purposes was discussed with the Patient or Authorized Ux Information Architect. The Patient or Authorized Ux Information Architect has agreed to proceed with the sensitive examination. (Sensitive examination includes inspection and/or palpation of the breasts, pelvis, prostate and anorectal regions). EXAM: BP 128/76 Wt 203 lb 12.8 oz (92.4kg) LMP 08/04/2008 GENERAL: pleasant, female in no apparent distress HEENT: Normocephalic, atraumatic, mucus membranes moist, and no lesions CHEST: Normal inspiratory effort PELVIC: external genitalia normal, normal Bartholin's glands, urethra, Grottoes's glands, no vulvar lesions, physiologic discharge present, normal appearing perineal body and perianal region, cervix surgically absent BIMANUAL: no adnexal masses, non-tender, and uterus surgically absent NEURO: alert and oriented x3,exam grossly non-focal EXTREMITIES: normal ASSESSMENT/PLAN: 1. Vaginal odor - ICD9: 625.8, ICD10: N89.8 (primary diagnosis) - LONA/TRICHOMONAS NAAT - BACTERIAL VAGINOSIS NAAT - TRICHOMONAS VAGINALIS NAAT - LONA/TRICHOMONAS NAAT - BACTERIAL VAGINOSIS NAAT 2. Vaginal discharge - ICD9: 623.5, ICD10: N89.8 - GONORRHEA/CHLAMYDIA NAAT - TRICHOMONAS VAGINALIS NAAT - LONA/TRICHOMONAS NAAT - BACTERIAL VAGINOSIS NAAT 3. Dysuria - ICD9: 788.1, ICD10: R30.0 chronic - Send urine for culture - Patient education for prevention given - BACTERIAL CULTURE, URINE 4. Postmenopausal atrophic vaginitis - ICD9: 627.3, ICD10: N95.2 Estrace vaginal cream ordered Will notify patient of test results. Sarah Lopez APRN.CNP Medical Decision Making: Problems: Moderate: 1+ chronic illnesses with change Data: Unique test(s) ordered: 3+ Risk: Moderate: Drug management Medical Decision Making Level: 4 - Moderate documented in this encounter [facility] 12-15-2024 Telephone encounter Note PDMP website checked and validated. All prescriptions have been APPROPRIATELY filled. No suspicious activity was identified. 12/15/2024 by Hi Waddell MD [facility] 12-15-2024 Miscellaneous Notes PDMP website checked and validated. All prescriptions have been APPROPRIATELY filled. No suspicious activity was identified. 12/15/2024 by Hi Waddell MD Prescription Refill Information The patient has been identified by name and date of : Yes Caregiver verified no other encounters exist for this prescription request: Yes Caregiver confirmed with patient/requestor that no other refills are due, in the near future, with this provider at this time: Yes The last office visit in the department: 09/12/24 WJN Does the patient have a future office visit with this provider/department: Yes 03/12/25 RT Requested Prescriptions Pending Prescriptions Disp Refills clonazePAM (KLONOPIN) 0.5 mg tablet 30 tablet 2 Sig: Take at bedtime for insomnia and RLS. Barbra Villatoro LPN December 15, 2024 10:29 AM documented in this encounter [facility] 12-15-2024 Telephone encounter Note Prescription Refill Information The patient has been identified by name and date of : Yes Caregiver verified no other encounters exist for this prescription request: Yes Caregiver confirmed with patient/requestor that no other refills are due, in the near future, with this provider at this time: Yes The last office visit in the department: 09/12/24 WAnnetteN Does the patient have a future office visit with this provider/department: Yes 03/12/25 RT Requested Prescriptions Pending Prescriptions Disp Refills clonazePAM (KLONOPIN) 0.5 mg tablet 30 tablet 2 Sig: Take at bedtime for insomnia and RLS. Barbra Villatoro LPN December 15, 2024 10:29 AM [facility] 12-15-2024 Telephone encounter Note Patient given results and verbalized understanding of instructions given. Allie Shelley MA [facility] 12-15-2024 Miscellaneous Notes Patient given results and verbalized understanding of instructions given. Allie Shelley MA Your urine culture just grew regular mixed microbiota which is common. If symptoms are persistent you should follow-up with primary care documented in this encounter [facility] 12-15-2024 Telephone encounter Note Your urine culture just grew regular mixed microbiota which is common. If symptoms are persistent you should follow-up with primary care [facility] Work Phone: 12-13-[address] [facility] 12-13-2024 History of Present illness Narrative Subjective HPI Nontoxic-appearing female presents urgent care chief complaint possible UTI. Duration of symptoms 4 days. Associated symptoms are frequency burning and urgency. History of UTIs states this feels similar OTC medicines none. No fevers vomiting abdominal pain. Has noticed some vaginal discharge. No itching. No flank pain. Past medical history prescription medications allergies reviewed .Patient presents with: Urinary Problem: Urgency, burning and frequency x 4 days PAST MEDICAL HISTORY Diagnosis Date Abnormal mammogram Acute respiratory disease due to COVID-19 virus 06/16/[address] Scott Quarles Advance directive discussed with patient 04/06/2022 Discussed 04/06/2022 Arthritis of knee, left 01/31/2013 Arthritis of left hip 01/19/2016 Arthritis of left shoulder region 10/10/2023 Ascending aorta dilatation 07/04/2017 04/19/16: 4.2 cm 06/11/17: 4.4 cm [...] 04/06/2022 Excessive or frequent menstruation Heavy periods Fatty liver Fatty liver 08/11/2024 US elastography 08/2024: F2-F3 Fibromyalgia 02/26/2014 Gastroesophageal reflux disease without esophagitis 04/24/2023 Hemorrhage of gastrointestinal tract, unspecified History of COVID-19 06/13/202105/2021 Hydrocephalus, adult (HCC) 02/09/2003 Hypertension, essential 01/22/2019 Lichen sclerosus Living will on file 04/06/2022 DPA: Dustin () Lung nodule 01/24/2022 Seeing pulm Migraines 07/26/2021 Used to see neuro and was getting Botox Mild dysplasia of cervix 2006 Mixed hyperlipidemia 01/20/2016 Nonrheumatic mitral valve disorder, unspecified 04/06/2016 Obesity, Class I, BMI 30-34.9 03/13/2024 Obstructive sleep apnea 10/13/2016 DME - [facility] Plantar fasciitis 2018 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 Scott Quarles Postcoital bleeding Primary insomnia 06/13/2021 Primary osteoarthritis of both knees 11/15/2022 Primary osteoarthritis of both shoulders 04/06/2022 Seeing [facility] Rectocele 04/19/2007 Renal cyst 07/13/2016 Rheumatoid arthritis (HCC) 04/24/2023 Seeing Rheum. Right knee pain RLS (restless legs syndrome) 02/25/2024 Situational mixed anxiety and depressive disorder 11/12/2017 Spinal stenosis, lumbar region, without neurogenic claudication 11/15/2022 Thoracic aortic aneurysm without rupture 2018 Urge [...] 1991 VAGINAL HYSTERECTOMY UTERUS 250 GM/< 09/04/2008 09/04/08 Vaginal hysterectomy for menorrhagia, irreg menses, post-coital bleeding, mild dysplasia and USI with Dr. Tai assisting and then he did a TVT. ALLERGIES Dilaudid [Hydromorphone (Pf)], Sulfa (Sulfonamide Antibiotics), Ultram [Tramadol Hcl], Oxycontin [Oxycodone Hcl], Relafen [Nabumetone], and Sertraline MEDICATIONS atorvastatin (LIPITOR) 40 mg tablet Take 1 tablet by mouth daily at bedtime. For cholesterol. clonazePAM (KLONOPIN) 0.5 mg tablet Take at bedtime for insomnia and RLS. Patient should start on September 27, 2024. albuterol HFA (VENTOLIN HFA) 90 mcg/actuation inhaler Inhale 2 Puffs as instructed every 4 hours as needed for wheezing/shortness of breath. azelastine (ASTELIN, ASTEPRO) 0.1% nasal spray Use 2 Sprays in each nostril twice daily as needed. calcium carbonate (CALTRATE 600 ORAL) Take 1 tablet by mouth once daily. BIOTIN ORAL Take 1 tablet by mouth once daily. Cholecalciferol, Vitamin D3, 2,000 unit cap Take 10,000 Units by mouth once daily. pantoprazole DR (PROTONIX) 40 mg tablet Take 40 mg by mouth once daily. baclofen 5 mg tablet trospium (SANCTURA) 20 mg tablet Take 1 tablet by mouth two times a day. Patient should start on October 27, 2024. hydroCHLOROthiazide 25 mg tablet Take 1 tablet by mouth once daily. Prn per cardiology FLUoxetine (PROZAC) 20 mg capsule Take 1 capsule by mouth once daily. mometasone-formoterol (DULERA) 100-5 mcg/actuation inhaler Inhale 2 Puffs as instructed two times a day. cefADROxil (DURICEF) 500 mg capsule Take 1 capsule by mouth two times a day. (Patient not taking: Reported on 10/28/2024) traZODone (DESYREL) 100 mg tablet Take 1 tablet by mouth daily at bedtime. CPAP/BIPAP/OTHER APAP 7-15 cmH2O DME [employer] folic acid 1 mg tablet Take 1 tablet by mouth once daily. metoprolol succinate ER (TOPROL XL) 50 mg 24 hr tablet Take 2 tablets by mouth once daily. (Patient taking differently: Take 100 mg by mouth as needed (for increase BP).) CPAP Lifetime supplies for AutoPAP 6-11 cm H20 including mask, heated tubing, humidity, filters. Fax 30 day download report to [phone] to assess residual ahi. vit C-Zn gluc-herbal no.325 (ELDERBERRY ZINC VIT C) 90-15 mg lozg Use 1 Lozenge as instructed twice daily. multivitamin tablet Take 1 tablet by mouth once daily. FAMILY HISTORY Problem Relation Age of Onset Heart Mother skin cancer on nose Breast Cancer Mother Heart Father Hypertension Father Thyroid Sister No Known Problems Brother No Known Problems Maternal Grandmother No Known Problems Maternal Grandfather Heart Paternal Grandmother Emphysema Paternal Grandfather Thyroid Paternal Aunt Social History Tobacco Use Smoking status: Former Current packs/day: 0.00 Average packs/day: 0.1 packs/day for 2.0 years (0.2 ttl pk-yrs) Types: Cigarettes Start date: 04/26/2008 Quit date: 04/26/2010 Years since quittin.6 Smokeless tobacco: Never Vaping Use Vaping status: Never Used Substance Use Topics Alcohol use: Not Currently Comment: 1-2 times a week at most: wine Drug use: Never BP 138/87 Pulse 82 Temp 36.6 C (97.9 F) Resp 22 Wt 93 kg (205 lb 0.4 oz) LMP 08/04/2008 SpO2 96% BMI 32.11 kg/m Review of Systems Constitutional: Negative for chills, fever and malaise/fatigue. HENT: Negative for congestion, ear discharge, ear pain, sinus pain and sore throat. Eyes: Negative for blurred vision, pain, discharge and redness. Respiratory: Negative for cough, hemoptysis, sputum production, shortness of breath, wheezing and stridor. Cardiovascular: Negative for chest pain. Gastrointestinal: Negative for abdominal pain, diarrhea, nausea and vomiting. Genitourinary: Positive for dysuria, frequency and urgency. Negative for flank pain and hematuria. Musculoskeletal: Negative for myalgias. Skin: Negative for itching and rash. Neurological: Negative for dizziness and headaches. Objective Physical Exam Vitals and nursing note reviewed. Constitutional: General: She is not in acute distress. Appearance: She is not toxic-appearing or diaphoretic. HENT: Head: Normocephalic. Jaw: No trismus. Right Ear: Hearing normal. No decreased hearing noted. No drainage, swelling or tenderness. Tympanic membrane is not perforated, erythematous or bulging. Left Ear: Hearing normal. No decreased hearing noted. No drainage, swelling or tenderness. Tympanic membrane is not perforated, erythematous or bulging. Nose: Nose normal. Mouth/Throat: Pharynx: Uvula midline. No uvula swelling. Tonsils: No tonsillar abscesses. Eyes: Pupils: Pupils are equal, round, and reactive to light. Cardiovascular: Rate and Rhythm: Normal rate and regular rhythm. Pulses: Normal pulses. Pulmonary: Effort: Pulmonary effort is normal. No respiratory distress. Breath sounds: Normal breath sounds. Chest: Chest wall: No tenderness. Abdominal: General: Bowel sounds are normal. There is no distension. Palpations: Abdomen is soft. Abdomen is not rigid. Tenderness: There is no abdominal tenderness. There is no right CVA tenderness, left CVA tenderness, guarding or rebound. Negative signs include Zuñiga's sign and McBurney's sign. Musculoskeletal: General: No tenderness. Cervical back: Normal range of motion. Lymphadenopathy: Head: Right side of head: No submental, submandibular, tonsillar, preauricular, posterior auricular or occipital adenopathy. Left side of head: No submental, submandibular, tonsillar, preauricular, posterior auricular or occipital adenopathy. Cervical: Right cervical: No superficial or posterior cervical adenopathy. Left cervical: No superficial or posterior cervical adenopathy. Skin: General: Skin is warm and dry. Findings: No rash. Neurological: General: No focal deficit present. Mental Status: She is alert and oriented to person, place, and time. ASSESSMENT/PLAN: 1. Urgency of urination - ICD9: 788.63, ICD10: R39.15 (primary diagnosis) - UA DIP, URINE (POC) - BACTERIAL CULTURE, URINE 2. Vaginal discharge - ICD9: 623.5, ICD10: N89.8 - LONA/TRICHOMONAS NAAT - BACTERIAL VAGINOSIS NAAT Small amount of bilirubin moderate blood small amount of protein noted. Urine culture obtained. Will not treat with antibiotics at today's visit. Vaginal self swabs obtained. Treat accordingly test results. Was encouraged to follow-up with PCP regarding blood in urine. Patient was educated on supportive therapies. Patient [...] of care. This note was generated using [employer] software. It may contain errors in wording, punctuation, or spelling. Ganga Choe APRN.VICKY documented in this encounter [facility] 11-28-2024 Note HNO ID: [id number] Author: WILBUR PAEZ MA Service: ? Author Type: Surveillance Specialist Type: Progress Notes Filed: 11/28/2024 15:16 Note Text: Scan on 11/24/2024 5:50 PM by Karolina Cruz PA-C: X-ray Wilbur Paez MA [facility] 11-28-2024 History of Present illness Narrative Scan on 11/24/2024 5:50 PM by Karolina Cruz PA-C: X-ray Wilbur Paez MA documented in this encounter [facility] 10-28-[address] [facility] 10-28-2024 History of Present illness Narrative AMBULATORY CYSTOSCOPY PROCEDURE PREOPERATIVE/PROCEDURAL VERIFICATION: Patient verified by: Name and Date of UNIVERSAL PROTOCOL / SAFETY CHECKLIST Procedure to be Performed: Cystoscopy Sign In: A Moment of CARE was completed. Appropriate PPE (Personal Protective Equipment) worn by all providers involved with the procedure. Special equipment not required. Patient/Surrogate Stated/Verified: Patient name, Date of , Relevant allergies, and The intended procedure Time Out: Relevant labs, photos, and/or imaging studies have been reviewed. Intended patient and procedure match the source document(s) (e.g. consent, H&P, associated studies [imaging, pathology]) match the intended patient and procedure. Consent obtained and matches the intended procedure. Yes. Correct side/site is not applicable. Fire risk assessed and is not applicable. Implants: are not applicable. Sign Out: Specimens not collected. All instruments, equipment, possible retained foreign bodies are accounted for. Yes. The post-procedure plan of care has been communicated to the patient. Medications and allergies reviewed and updated. Latex Allergy:Yes Pre-Procedure Antibiotics: Keflex 500 mg orally given during visit @ 1:02 pm , by Lucila Whitehead Pre-Procedure Vital Signs: BP 164/81 P 72 R 18. Current pain intensity is 0 on a scale of 0-10. Patient Prepped with Betadine Scrub to perineum and placement of sterile drape. Anesthetic Given: 6 cc 2% Lidocaine Jelly into Urethra. Instruction sheet given and reviewed: Yes Patient verbalizes understanding: Yes Post- procedure Vital Signs: B/P: 167/82 P: 84 R:16 Pain Ratin on a scale of 0 to 10. Specimens: obtained: Urine dip Nurse: Lucila Burr LPN documented in this encounter [facility] 10-28-[address] [facility] 10-28-2024 Procedure note CYSTOSCOPY PROCEDURE NOTE: Kristina Burch is a 64 year old female who presents with hematuria gross for a cystoscopy. Pt ID verified with patient: Yes Fire risk assessment done Procedure verified with patient: Yes Procedure confirmed with physician and mission support specialist: Yes UNIVERSAL PROTOCOL / SAFETY CHECKLIST Procedure to be Performed: cysto Sign In: A Moment of CARE was completed. Appropriate PPE (Personal Protective Equipment) worn by all providers involved with the procedure. Special equipment not required. Patient/Surrogate Stated/Verified: Patient name, Date of , Relevant allergies, and The intended procedure Time Out: Relevant labs, photos, and/or imaging studies have been reviewed. Intended patient and procedure match the source document(s) (e.g. consent, H&P, associated studies [imaging, pathology]) match the intended patient and procedure. Consent obtained and matches the intended procedure. Yes. Correct side/site has been marked and visible. Medications required for this procedure are verified. Fire risk assessed and is not applicable. Implants: are not applicable. Sign Out: Specimens are all correctly labeled and sent. All instruments, equipment, possible retained foreign bodies are accounted for. Yes. The post-procedure plan of care has been communicated to the patient or surrogate. Pre procedure dx: gross hematuria Post procedure dx: same A urinalysis was performed revealing no evidence of infection. The benefits, risks, alternatives of the cystoscopy procedure and personnel were discussed with the patient. The verbal consent was obtained and the patient agrees to proceed. Female staff present for entire exam/procedure. Procedure: The patient was placed on the procedure table in the supine position and prepped and draped in the usual sterile fashion. 2% Lidocaine Jelly was placed per urethra as an anesthetic in the standard fashion. Once adequate local anesthesia was achieved, the tip of the flexible cystoscope was carefully placed into the urethra under direct visual guidance. The scope was negotiated per urethra with no evidence of stricture into the bladder. Careful doherty endoscopy was carried out. The posterior, superior and lateral doyle and dome of the bladder were all well visualized and the scope was retroflexed upon itself. The findings were consistent with no evidence of bladder mucosal pathology. At the conclusion of the procedure, the flexible cystoscope was removed atraumatically. The patient tolerated the procedure without complications. Patient was given standard post-procedure instructions, and was directed to complete the course of oral antibiotics and increase oral fluid intake as directed. ASSESSMENT/PLAN: Jose Martin Mcmahon Jr, MD [facility] 10-28-2024 Procedure note CYSTOSCOPY PROCEDURE NOTE: Kristina Burch is a 64 year old female who presents with hematuria gross for a cystoscopy. Pt ID verified with patient: Yes Fire risk assessment done Procedure verified with patient: Yes Procedure confirmed with physician and mission support specialist: Yes UNIVERSAL PROTOCOL / SAFETY CHECKLIST Procedure to be Performed: cysto Sign In: A Moment of CARE was completed. Appropriate PPE (Personal Protective Equipment) worn by all providers involved with the procedure. Special equipment not required. Patient/Surrogate Stated/Verified: Patient name, Date of , Relevant allergies, and The intended procedure Time Out: Relevant labs, photos, and/or imaging studies have been reviewed. Intended patient and procedure match the source document(s) (e.g. consent, H&P, associated studies [imaging, pathology]) match the intended patient and procedure. Consent obtained and matches the intended procedure. Yes. Correct side/site has been marked and visible. Medications required for this procedure are verified. Fire risk assessed and is not applicable. Implants: are not applicable. Sign Out: Specimens are all correctly labeled and sent. All instruments, equipment, possible retained foreign bodies are accounted for. Yes. The post-procedure plan of care has been communicated to the patient or surrogate. Pre procedure dx: gross hematuria Post procedure dx: same A urinalysis was performed revealing no evidence of infection. The benefits, risks, alternatives of the cystoscopy procedure and personnel were discussed with the patient. The verbal consent was obtained and the patient agrees to proceed. Female staff present for entire exam/procedure. Procedure: The patient was placed on the procedure table in the supine position and prepped and draped in the usual sterile fashion. 2% Lidocaine Jelly was placed per urethra as an anesthetic in the standard fashion. Once adequate local anesthesia was achieved, the tip of the flexible cystoscope was carefully placed into the urethra under direct visual guidance. The scope was negotiated per urethra with no evidence of stricture into the bladder. Careful doherty endoscopy was carried out. The posterior, superior and lateral doyle and dome of the bladder were all well visualized and the scope was retroflexed upon itself. The findings were consistent with no evidence of bladder mucosal pathology. At the conclusion of the procedure, the flexible cystoscope was removed atraumatically. The patient tolerated the procedure without complications. Patient was given standard post-procedure instructions, and was directed to complete the course of oral antibiotics and increase oral fluid intake as directed. ASSESSMENT/PLAN: Jose Martin Mcmahon Jr, MD documented in this encounter [facility] 10-28-2024 Instructions Lucila Burr LPN - 10/28/2024 12:55 PM EST [facility] Department of Urology After your Cystoscopy You have undergone a cystoscopy. Your doctor has inserted a telescope into your urinary bladder through your urethra to view the inside of your bladder. WHAT TO EXPECT: Possible burning during urination and /or blood tinged urine. WHAT TO DO: Resume normal activity and medications. Drink 6-8 glasses of fluid each day for 3 days to help flush your urinary system. MEDICATIONS: You were given keflex, a preventative antibiotic, prior to the procedure. WHEN TO CALL DOCTOR: IF you have a fever over 100 degrees Farenheit. IF you are unable to urinate IF blood clots form in your urine IF your urine becomes very bloody and does not clear with drinking extra fluids. Please call [facility] office at [phone] M-F 8:00 am to 5:00pm With any questions you may have and ask for the Triage Nurse After 5:00 pm or weekends [phone] Thank you 07/09/13 KW documented in this encounter [facility] 10-15-2024 Note HNO ID: [id number] Author: WILBUR PAEZ MA Service: ? Author Type: Surveillance Specialist Type: Progress Notes Filed: 10/15/2024 13:16 Note Text: Scan on 10/13/2024 5:38 PM by ProviderKarolina PA-C: Hematology Wilbur Paez MA [facility] 10-15-2024 History of Present illness Narrative Scan on 10/13/2024 5:38 PM by Karolina Cruz PA-C: Hematology Wilbur Paez MA documented in this encounter [facility] 10-13-2024 Instructions Shilpi Borrero APRN.ELEVATOR CONSTRUCTOR [employer], ALONZO - 10/13/2024 4:01 PM EST Keep Cystoscopy appt for 10/28/24 A Cystoscopy is a procedure that allows your doctor to examine the lining of your bladder and the tube that carries urine out of your body (urethra). A hollow tube (cystoscope) equipped with a lens is inserted into your urethra and slowly advanced into your bladder. This is a very quick outpatient procedure completed at one of our Urology offices. Cont with Trospium for OAB symptoms. follow up in 6 months Schedule US for 6 months Kegal Exercises daily For OAB: Recommend behavioral therapies (e.g., bladder training, bladder control strategies, pelvic floor muscle training, fluid management) Anti-muscarinic medications: (Oxybutynin (Ditropan XL) Tolterodine (Detrol, Detrol LA), Solifenacin (Vesicare, Vesicare LS), Trospium, and Fesoterodine (Toviaz): The choice of oral anti-muscarinics as second-line therapy reflects the fact that these medications reduce symptoms but also can commonly have side effects such as dry mouth, constipation, dry or itchy eyes, blurred vision, dyspepsia, UTI, urinary retention and impaired cognitive function (trouble with memory and confusion). For dry mouth, try sucking hard candy or chewing gum to produce more saliva. Other less common side effects include heartburn, blurry vision, rapid heartbeat, flushed skin and trouble urinating. ? 3-adrenoceptor agonists: Mirabegron and Gemtesa are options. These are typically not covered by most commercial insurance plans. They work on the muscles of the bladder to increase the amount of urine your bladder can hold and prevent them from causing incontinence Common side effects of these medications are High Blood Pressure, Headache, UTIs, Nasopharyngitis, bladder pain, and urinary retention. Sacral neuromodulation (SNS) as third-line treatment in a carefully selected patient population characterized by severe refractory OAB symptoms or patients who are not candidates for second-line therapy and are willing to undergo a surgical procedure Healthy Habits: Recommend regular physical activity, nutrition and healthy eating habits. Consume a variety of foods every day focusing on fruits, vegetables and lean meats). Eat foods low in fat, saturated fat and cholesterol. Eat a limited amount of salt and sodium. Drink adequate amounts of water and limit sugary drinks. Exercise portion control in meal selection. Establish a mindset of a wellness approach to health. Thank you for allowing me to provide your care today. I look forward to seeing you again and maintaining your health. Shilpi Borrero APRN.ALONZO PERRY documented in this encounter [facility] 10-13-2024 History of Present illness Narrative [facility] Urology - [facility] Referring provider: Ganga Nunez MD New patient to Urology 08/11/[address] Ganga Nunez [address] [facility] [address] for an opinion regarding urinary urgency and my final recommendations will be communicated back to the requesting physician by way of shared Medical record or letter via US mail. Chief Complaint Patient presents with: Results - Ct HPI Kristina Burch is a 64 year old female who presents here today for a urinary urgency. This is an established patient of Dr. Ganga Nunez MD. This is a new patient to me. Past Med hx: Insomnia, Chronic pain, Migraines, RLS, Fibromyalgia, HLD, HUBER - CPAP, HTN, GERD, Renal cyst is with her today for appt Reports: history of dysuria, burning. + urgency, and frequency. Blood in the urine a few months ago. No fever or chills. Denies suprapubic pain or flank pain. Denies frequent UTI's. Leakage of urine. Uses 5 pads per day. Incontinent with sneezing or coughing. No current meds. Smoking - 09/06 ppd for 5 years. Quit 20 years ago. Today: Recent CT of Ab and pelvis showed a 5.9 cm exophytic right renal upper to mid pole cyst. Symmetric nephrograms with no evidence of hydronephrosis. Is scheduled for a Cysto at the end of Oct with Dr. Mcmahon. Trial of Trospium improved her OAB symptoms. Sometimes she only had to wear one pad per day. Happy with medicaiton response. Denies SE. OAB Questionnaire: Do you leak with cough, sneeze or exercise? yes Do you leak with urgency such as getting to the restroom on time or with running water? yes How many times do you urinate during the day? 10 How many times do you get up to urinate at night? 2 How many pads do you wear during the day? 5 Do you wear pads at night? 1 Do you have fecal urgency? no Do you have fecal incontinence? no Do you have pain with intercourse? NA Do you have urinary leakage with intercourse? NA What medications have you tried to help your leakage? None What surgeries have you had for the above symptoms? TL and Hysterectomy Past medical history, appointments, medications, allergies reviewed 08/11/2024 Previous Medical History PAST MEDICAL HISTORY Diagnosis Date Abnormal mammogram Acute respiratory disease due to COVID-19 virus 06/16/[address] Scott Quarles Advance directive discussed with patient 04/06/2022 Discussed 04/06/2022 Arthritis of knee, left 01/31/2013 Arthritis of left hip 01/19/2016 Arthritis of left shoulder region 10/10/2023 Ascending aorta dilatation (HCC) 07/04/2017 04/19/16: 4.2 cm 06/11/17: 4.4 cm 06/24/18 4.4 cm Cervical high risk human papillomavirus (HPV) DNA test positive 05/27/2008 Chronic anxiety 06/01/2021 Chronic diarrhea 12/09/2018 Chronic hypoxemic respiratory failure (HCC) 09/06/2021 resolved Chronic pain syndrome 11/29/[address] Bustillos as of 11/27/2022 Chronic prescription benzodiazepine use 06/01/2021 DDD (degenerative disc disease), lumbar 07/24/[address] Jose Raul Machuca Dependence on nocturnal oxygen therapy 04/24/2023 Seeing Pulm Elevated hemoglobin A1c 04/24/2023 Essential tremor 04/06/2022 Ex-smoker 04/06/2022 Excessive or frequent menstruation Heavy periods Fatty liver Fatty liver 08/11/2024 US elastography 08/2024: F2-F3 Fibromyalgia 02/26/2014 Gastroesophageal reflux disease without esophagitis 04/24/2023 Hemorrhage of gastrointestinal tract, unspecified History of COVID-19 06/13/202105/2021 Hydrocephalus, adult (HCC) 02/09/2003 Hypertension, essential 01/22/2019 Lichen sclerosus Living will on file 04/06/2022 DPA: Dustin () Lung nodule 01/24/2022 Seeing pulm Migraines 07/26/2021 Used to see neuro and was getting Botox Mild dysplasia of cervix 2006 Mixed hyperlipidemia 01/20/2016 Nonrheumatic mitral valve disorder, unspecified 04/06/2016 Obesity, Class I, BMI 30-34.9 03/13/2024 Obstructive sleep apnea 10/13/2016 DME - [facility] Plantar fasciitis 2018 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 Scott Quarles Postcoital bleeding Primary insomnia 06/13/2021 Primary osteoarthritis of both knees 11/15/2022 Primary osteoarthritis of both shoulders 04/06/2022 Seeing [facility] Rectocele 04/19/2007 Renal cyst 07/13/2016 Rheumatoid arthritis (HCC) 04/24/2023 Seeing Rheum. Right knee pain RLS (restless legs syndrome) 02/25/2024 Situational mixed anxiety and depressive disorder 11/12/2017 Spinal stenosis, lumbar region, without neurogenic claudication 11/15/2022 Thoracic aortic aneurysm without rupture ([facility]) 2018 Urge incontinence 04/19/2007 Vitamin D deficiency [...] 1991 VAGINAL HYSTERECTOMY UTERUS 250 GM/< 09/04/2008 09/04/08 Vaginal hysterectomy for menorrhagia, irreg menses, post-coital bleeding, mild dysplasia and USI with Dr. Tai assisting and then he did a TVT. Family History FAMILY HISTORY Problem Relation Age of Onset Heart Mother skin cancer on nose Breast Cancer Mother Heart Father Hypertension Father Thyroid Sister No Known Problems Brother No Known Problems Maternal Grandmother No Known Problems Maternal Grandfather Heart Paternal Grandmother Emphysema Paternal Grandfather Thyroid Paternal Aunt Patient Allergies ALLERGIES Allergen [...] on File Prior to Visit Medication Sig clobetasol (TEMOVATE) 0.05 % ointment Apply 1 application to affected area two times a day. budesonide-formoterol (SYMBICORT) 160-4.5 mcg/actuation inhaler Inhale 2 Puffs as instructed two times a day. albuterol HFA (VENTOLIN HFA) 90 mcg/actuation inhaler Inhale 2 Puffs as instructed every 4 hours as needed for wheezing/shortness of breath. CPAP/BIPAP/OTHER APAP 7-15 cmH2O DME [employer] clonazePAM (KLONOPIN) 0.5 mg tablet Take at bedtime for insomnia and RLS. Patient should start on June 25, 2024. celecoxib (CELEBREX) 200 mg capsule Take 1 capsule by mouth two times a day. FLUoxetine (PROZAC) 20 mg capsule Take 1 capsule by mouth once daily. folic acid 1 mg tablet Take 1 tablet by mouth once daily. methotrexate 2.5 mg tablet Take 6 tablets by mouth every Sunday. as directed. hydroCHLOROthiazide 25 mg tablet Take 1 tablet by mouth once daily. (Patient taking differently: Take 25 mg by mouth once daily. prn) atorvastatin (LIPITOR) 40 mg tablet Take 1 tablet by mouth daily at bedtime. For cholesterol. traZODone (DESYREL) 100 mg tablet Take 1 tablet by mouth daily at bedtime. azelastine (ASTELIN, ASTEPRO) 0.1% nasal spray Use 2 Sprays in each nostril twice daily as needed. metoprolol succinate ER (TOPROL XL) 50 mg 24 hr tablet Take 2 tablets by mouth once daily. (Patient taking differently: Take 100 mg by mouth once daily. Prn depending on BP reading) CPAP Lifetime supplies for AutoPAP 6-11 cm H20 including mask, heated tubing, humidity, filters. Fax day download report to [phone] to assess residual ahi. vit C-Zn gluc-herbal [...] Social History Tobacco Use Smoking status: Former Current packs/day: 0.00 Average packs/day: 0.1 packs/day for 2.0 years (0.2 ttl pk-yrs) Types: Cigarettes Start date: 04/26/2008 Quit date: 04/26/2010 Years since quittin.4 Smokeless tobacco: Never Vaping Use Vaping status: Never Used Substance Use Topics Alcohol use: Not Currently Comment: 1-2 times a week at most: wine Drug use: Never LABS: Latest Ref Rng 08/11/2024 GLUCOSE UA (POCT) Negative mg/dL Negative BILIRUBIN UA (POCT) Negative Negative KETONE UA (POCT) Negative mg/dL Negative SPECIFIC GRAVITY UA (POCT) 1.005 - 1.030 >=1.030 HEMOGLOBIN/BLOOD UA (POCT) Negative Small ! PH UA (POCT) 4.5 - 8.0 5.5 PROTEIN UA (POCT) Negative mg/dL Negative UROBILINOGEN UA (POCT) Normal E.U./dL 0.2 NITRITE UA (POCT) Negative Negative LEUKOCYTES UA (POCT) Negative Trace ! COLOR UA (POCT) Dark yellow CLARITY UA (POCT) Slightly Cloudy IMAGING: CT UROGRAM WO/W IVCON Result Date: 08/26/2024 IMPRESSION: Fatty liver Right renal cyst No nephrolithiasis, ureterolithiasis, gross obstructive uropathy, or suspicious renal lesion. Urinary bladder is suboptimally seen, however, grossly normal. Buggy Driver: SANDRA Transcribe Date/Time: Aug 26 2024 2:25P Dictated by : NISHANT MATHUR MD This examination was interpreted and the report reviewed and electronically signed by: NISHANT MATHUR MD on Aug 26 2024 2:31PM EST Review of Symptoms GENERAL: No weight loss, malaise fatigue or fevers. GI: No nausea, vomiting, or diarrhea. No abdominal pain : + for burning, dysuria, urgency or frequency. No blood in urine MUSCULOSKELETAL: Negative for generalized joint pain or bodyaches SKIN: Negative for rash EXAM: BP 152/72 Pulse (!) 53 Ht 170.2 cm (5' 7) Wt 91.6 kg (202 lb) LMP 08/04/2008 BMI 31.64 kg/m General Appearance: Well appearing, alert, in no acute distress, well-hydrated, well nourished. Obesity Skin: Skin color, texture, turgor normal, no suspicious rashes or lesions. Head: Normocephalic, no masses, Extremities: No deformities, edema, skin discoloration Psych: Attitude - cooperative, easily engaged in conversation Appearance - normal hygiene and grooming appropriate Affect - euthymic, normal mood Mental status: Alert, attentive. Gait/Stance: Posture is normal. Gait is steady Health Maintenance List Shingrix Vaccine(1 of 2) Never done Influenza Vaccine(1) due on 03/02/2025 Covid-19 Vaccine( - 2023- season) due on 09/30/2025 Annual PCP Team Chronic Disease Visit due on 09/30/2025 Mammogram Screening due on 10/01/2025 BP Controlled (<130/80) due on 10/02/2025 Diabetes Screening due on 09/30/2027 Colorectal Cancer Screening due on 09/23/2029 Lipid Screening due on 09/30/2029 DTaP,Tdap,Td Vaccine(5 - Td or Tdap) due on 03/12/2030 RSV Vaccine(1 - 1-dose 75+ series) due on 2033 Bone Density Screening Completed Advance Directive Discussion Completed Hepatitis C Screening Completed Pneumococcal Vaccine: 50+ Completed Cervical Cancer Screening Discontinued Data reviewed Last 5 Encounter BP Readings: Date: BP: 07/28/2024 140/80 07/24/2024 128/70 07/17/2024 126/70 07/15/2024 140/92 07/08/2024 122/66 BMI Readings from Last 5 Encounters: 10/13/24 : 31.64 kg/m 10/02/24 : 30.40 kg/m 09/30/24 : 30.56 kg/m 09/28/24 : 28.56 kg/m 09/18/24 : 28.97 kg/m Last 5 Encounter Wt Readings: Date: Wt: 07/28/2024 88.9 kg (196 lb) 07/24/2024 91.2 kg (201 lb) 07/17/2024 93 kg (205 lb) 07/15/2024 93 kg (205 lb) 07/08/2024 93.8 kg (206 lb 12.7 oz) Medication and allergy list reviewed, reconciled and updated 08/11/2024 ASSESSMENT/PLAN: 1. Urgency of urination - ICD9: 788.63, ICD10: R39.15 (primary diagnosis) 64 y/o female with a hx of worsening urinary urgency, and did have gross blood seen several times. No current blood in urine. Using pads for urinary leakage. Reviewed 2 years of UC with only one that was +. Started on Trospium at last appt. OAB symptoms improved. Plan: Cont with Trospium CTU - completed. Reviewed results. Cysto pending follow up in 6 months - TROSPIUM 20 MG TABLET 2. Gross hematuria - ICD9: 599.71, ICD10: R31.0 Plan as above - TROSPIUM 20 MG TABLET 3. Urge incontinence - ICD9: 788.31, ICD10: N39.41 Plan as above - TROSPIUM 20 MG TABLET 4. Renal cyst - ICD9: 753.10, ICD10: N28.1 Stable - Cont to monitor. Check RBUS in 6 months. This note was copied from previous note and exam dated 08/11/24. Author is Shilpi Borrero APRN.ALONZO PERRY note reviewed and changes have been made or updates noted in the copy & paste portion of an encounter. Shilpi Borrero DNP, VICKY Department of Urology [facility] documented in this encounter [facility] 10-13-[address] [facility] 10-02-2024 Instructions Ba Gaona MA - 10/02/2024 1:36 PM EST YOUR RECOVERY It may take a few weeks for your cervix to heal. While your cervix heals, you may have: - Vaginal bleeding (less than a normal menstrual period) - Mild cramping - A brown-black vaginal discharge (similar to coffee grounds) which is a result of the paste used to help stop bleeding from the procedure Do NOT put anything in the vagina for 1 week after your colposcopy if your doctor does a biopsy of your cervix. This includes sex, tampons, and douches. If you have any discomfort, you may take an over the counter pain medication (motrin, advil, ibuprofen, tylenol, etc). If this does not relieve your discomfort, contact your doctor's office for a prescription strength pain medication. It is okay to wear a sanitary pad until the discharge and spotting stops. RISKS Although problems seldom occur with colposcopy, there can be some complications. You may feel faint during and shortly after the procedure as well as have some bleeding and vaginal discharge after the procedure. There is also a risk of infection after the procedure. These complications are rare and can be easily treated. You should contact you doctor is you have any of the following: - Heavy bleeding (more than your normal period) - Bleeding with clots - Severe abdominal pain - Fever (more than 100.4F) - Foul smelling vaginal discharge RESULTS If a biopsy was taken, we will have the results of your biopsy in 1-2 weeks. If you do not hear the results of your biopsy after 2 weeks, please contact your physicians office for the results. Depending on the biopsy results, your doctor will determine your follow up plan which may include further testing or treatments. STAYING HEALTHY After the procedure, you will need to see your doctor for follow up visits during the year. At these visits your doctor will check the health of your cervix with a pap smear. After three normal pap smears, your doctor will allow you to return to having exams once a year. If you have another abnormal pap smear, you may need closer follow up for longer or you may need additional treatment. By making a few lifestyle changes after the procedure, you can help protect the health of your cervix: - Have regular pelvic exams and pap smears as ordered by your doctor. - Stop smoking as smoking increases your risk of developing a cancer of the cervix - If you have more than one sexual partner, limit your number of partners and use condoms to reduce your risks of STDs. If you have any additional questions, please contact your doctor's office. documented in this encounter [facility] 10-02-[address] [facility] 10-02-2024 History of Present illness Narrative Kristina is a 64 year old Female who presents today for a colposcopy. The patient's last pap smear was Positive HPV from September 2024. Patient has a history of abnormal pap: Yes. The patient has had prior treatment: none. test: n/a UNIVERSAL PROTOCOL / SAFETY CHECKLIST Procedure to be Performed: Vaginal vault colposcopy with Possible Biopsy Sign In: A Moment of CARE was completed. Personnel directly involved with the procedure wore the appropriate PPE (Personal Protective Equipment). Patient/Surrogate Stated/Verified: PATIENT VERIFIED(optional for EMERGENT procedures): Patient name, Date of , Relevant allergies, and The intended procedure Time Out Communication: Intended patient and procedure match the source documents. Consent documented and matches the intended procedure. Sign Out: SIGN OUT (optional for EMERGENT procedures): No specimen collected. PROCEDURE: EXTERNAL GENITALIA: Normal in appearance without lesions VAGINA: Normal in appearance without lesions CERVIX: cervix absent. No acetowhite changes, punctations, mosaicism or atypical vasculature noted. BIOPSY: Not done. ECC: not done HEMOSTASIS: Obtained with n/a Procedure Summary: Patient tolerated procedure well. ASSESSMENT: postmenopausal atrophy PLAN: Repeat pap 12 months Tessy Rice MD documented in this encounter [facility] 10-02-2024 Telephone encounter Note Patient returned call and given provider's messages below with verbalized understanding. Pt agreeable. [facility] 10-02-2024 Miscellaneous Notes Patient returned call and given provider's messages below with verbalized understanding. Pt agreeable. Left additional message for pt to contact office. See both results notes. Also sent pt a MC msg to contact office. Claribel Mason LPN Labs show elevated cholesterol. I know she had stopped her cholesterol medication and agreed to restart it, so we won't make changes yet. The rest of her labs are all wnl/stable. (Please notify patient of mammogram results per below also) TC to pt. LM to call office, ask for triage nurse to get results. Tati Richter LPN Mammogram looks okay. The areas of previous concern are benign. Return to annual screening. documented in this encounter [facility] 10-02-2024 Telephone encounter Note Left additional message for pt to contact office. See both results notes. Also sent pt a msg to contact office. Claribel Mason LPN [facility] 10-02-2024 Telephone encounter Note Labs show elevated cholesterol. I know she had stopped her cholesterol medication and agreed to restart it, so we won't make changes yet. The rest of her labs are all wnl/stable. (Please notify patient of mammogram results per below also) [facility] 10-01-2024 Telephone encounter Note TC to pt. LM to call office, ask for triage nurse to get results. Tati Richter LPN [facility] 10-01-2024 Telephone encounter Note Mammogram looks okay. The areas of previous concern are benign. Return to annual screening. [facility] 10-01-2024 History of Present illness Narrative Radiology Service Progress Note PATIENT NAME: Kristina Burch DATE OF SERVICE: October 01, 2024 TIME: 1:51 PM PATIENT IDENTITY VERIFICATION COMPLETED USING TWO (2) IDENTIFIERS: Name and Date of confirmed by patient verbally. FALL SCREENING: Has the patient had 2 falls in the last year or 1 fall with injury or currently using an Ambulatory Assistive Device (Walker, Cane, Wheelchair, Crutches, etc.)? No PATIENT GENDER DATA: Assigned female at . status: : No status: NO. PATIENT RELEVANT IMPLANT DATA REVIEWED: Not Applicable PATIENT PRESENTS WITH AN IMPLANTABLE OR ATTACHED CLOTH TESTER QUALITY: No RADIOLOGY DEPARTMENT: Mammography PERIPHERAL IV DATA: Not applicable SIGNED BY: Mariya Singh October 01, 2024 1:51 PM documented in this encounter [facility] 10-01-[address] [facility] 09-30-2024 Instructions Edwina Khoury PA-C - 09/30/2024 12:08 PM EST Screening schedule The following prevention plan is recommended: Shingrix Vaccine(1 of 2) Never done RSV Vaccine(1 - Risk 60-74 years 1-dose series) Never done WHAT YOU CAN DO TO PREVENT FALLS Many falls can be prevented. By making some changes, you can lower your chances of falling. Four things YOU can do to prevent falls for you* and your caregiver 1. Begin a regular exercise program Exercise is one of the most important ways to lower your chances of falling. It makes you stronger and helps you feel better. Exercises that improve balance and coordination (like Bari Chi) are the most helpful. Lack of exercise leads to weakness and increases your chances of falling. Ask your doctor or health care provider about the best type of exercise program for you. 2. Have your health care provider review your medicines Have your doctor or pharmacist review all the medicines you take, even pftb-lrf-pfstamb medicines. As you get older, the way medicines work in your body can change. Some medicines, or combinations of medicines, can make you sleepy or dizzy and can cause you to fall. 3. Have your vision checked Have your eyes checked by an eye doctor at least once a year. You may be wearing the wrong glasses or have a condition like glaucoma or cataracts that limits your vision. Poor vision can increase your chances of falling. 4. Make your home safer About half of all falls happen at home. To make your home safer: Remove things you can trip over (like papers, books, clothes, and shoes) from stairs and places where you walk. Remove small throw rugs or use double-sided tape to keep the rugs from slipping. Keep items you use often in cabinets you can reach easily without using a step stool. Have grab bars put in next to your toilet and in the tub or shower. Use non-slip mats in the bathtub and on shower floors. Improve the lighting in your home. As you get older, you need brighter lights to see well. Hang light-weight curtains or shades to reduce glare. Have handrails and lights put in on all staircases. Wear shoes both inside and outside the house. Avoid going barefoot or wearing slippers. For more information, contact: Centers for Disease Control and Prevention www.cdc.gov/injury * This information may not apply if you have certain medical conditions. documented in this encounter [facility] 09-30-[address] [facility] 09-30-2024 History of Present illness Narrative Images from the original note were not included. Kristina Burch is a 64 year old female here for a Medicare wellness visit. Medicare Health Risk Assessment General Health Fair Exercise: Minutes/Day 0 min Exercise: Days/Week 0 days Alcohol: Daily Use Monthly or less Alcohol: Drinks/Day 1 or 2 Alcohol: 6 or more drinks Never Feel off balance Yes Concerns: Teeth/Dentures No Concerns: Sexual function No Troubled by feelings Anxious; Stressed Frequency: Eating healthy diet Nearly every day ADLs requiring help None of the above Safety precautions in home/vehicle Yes Smoke, vape, chews tobacco No Difficulty hearing Yes Difficulty seeing No Current Providers Specialists: I have reviewed specialist-related care of the patient in the medical record. Medical/Family history review Reviewed and updated problem list, medical/surgical/family/social history, medications, and allergies. Opioid use review Opioid Medications (last 90 days) No data to display Anxiety/Depression screening PHQ-2 Score: 0 (Lower risk for depression) Recommendation: continuing current treatment plan Cognitive screening Mini Cog Score: 5 Cognitive screening reviewed and No further action needed (score 3-5). Functional Observation Was the patient's Timed Up & Go test unsteady or >= 12 seconds? No Advance Care Planning Surrogate decision maker and/or advance care plan documented Measurements BP 112/76 (BP Site: Left Arm, BP Position: Sitting, BP Cuff Size: Large Adult) Pulse 78 Temp 36.7 C (98.1 F) Resp 18 Ht 171 cm (5' 7.32) Wt 89.4 kg (197 lb) LMP 08/04/2008 SpO2 94% BMI 30.56 kg/m Vision Screening: Follows with optometry/ophthalmology Assessment/Plan Medicare annual wellness visit, subsequent (Z00.00) - Counseled on healthy diet and regular exercise - Fall avoidance information provided - Personalized prevention plan provided Chief Complaint Patient presents with: Medicare Wellness Exam HPI Kristina Burch is a 64 year old female who presents here today for extensive exam. Patient with hx as below. Patient reports continued cough and congestion. Currently on doxy Had cxr today that appears stable. No fevers. Past medical history, appointments, medications, allergies reviewed. Previous Medical History PAST MEDICAL HISTORY Diagnosis Date Abnormal mammogram Acute respiratory disease due to COVID-19 virus 06/16/[address] Scott Quarles Advance directive discussed with patient 04/06/2022 Discussed 04/06/2022 Arthritis of knee, left 01/31/2013 Arthritis of left hip 01/19/2016 Arthritis of left shoulder region 10/10/2023 Ascending aorta dilatation (HCC) 07/04/2017 04/19/16: 4.2 cm 06/11/17: 4.4 cm 06/24/18 4.4 cm Cervical high risk human papillomavirus (HPV) DNA test positive 05/27/2008 Chronic anxiety 06/01/2021 Chronic diarrhea 12/09/2018 Chronic hypoxemic respiratory failure (HCC) 09/06/2021 resolved Chronic pain syndrome 11/29/[address] Bustillos as of 11/27/2022 Chronic prescription benzodiazepine use 06/01/2021 DDD (degenerative disc disease), lumbar 07/24/[address] Jose Raul Machuca Dependence on nocturnal oxygen therapy 04/24/2023 Seeing Pulm Elevated hemoglobin A1c 04/24/2023 Essential tremor 04/06/2022 Ex-smoker 04/06/2022 Excessive or frequent menstruation Heavy periods Fatty liver Fatty liver 08/11/2024 US elastography 08/2024: F2-F3 Fibromyalgia 02/26/2014 Gastroesophageal reflux disease without esophagitis 04/24/2023 Hemorrhage of gastrointestinal tract, unspecified History of COVID-19 06/13/202105/2021 Hydrocephalus, adult (HCC) 02/09/2003 Hypertension, essential 01/22/2019 Lichen sclerosus Living will on file 04/06/2022 DPA: Dustin () Lung nodule 01/24/2022 Seeing pulm Migraines 07/26/2021 Used to see neuro and was getting Botox Mild dysplasia of cervix 2006 Mixed hyperlipidemia 01/20/2016 Nonrheumatic mitral valve disorder, unspecified 04/06/2016 Obesity, Class I, BMI 30-34.9 03/13/2024 Obstructive sleep apnea 10/13/2016 DME - [facility] Plantar fasciitis 2018 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 Scott Quarles Postcoital bleeding Primary insomnia 06/13/2021 Primary osteoarthritis of both knees 11/15/2022 Primary osteoarthritis of both shoulders 04/06/2022 Seeing [facility] Rectocele 04/19/2007 Renal cyst 07/13/2016 Rheumatoid arthritis (HCC) 04/24/2023 Seeing Rheum. Right knee pain RLS (restless legs syndrome) 02/25/2024 Situational mixed anxiety and depressive disorder 11/12/2017 [...] 1991 VAGINAL HYSTERECTOMY UTERUS 250 GM/< 09/04/2008 09/04/08 Vaginal hysterectomy for menorrhagia, irreg menses, post-coital bleeding, mild dysplasia and USI with Dr. Tai assisting and then he did a TVT. Family History FAMILY HISTORY Problem Relation Age of Onset Heart Mother skin cancer on nose Breast Cancer Mother Heart Father Hypertension Father Thyroid Sister No Known Problems Brother No Known Problems Maternal Grandmother No Known Problems Maternal Grandfather Heart Paternal Grandmother Emphysema Paternal Grandfather Thyroid Paternal Aunt Patient Allergies ALLERGIES Allergen [...] on File Prior to Visit Medication Sig FLUoxetine (PROZAC) 20 mg capsule Take 1 capsule by mouth once daily. mometasone-formoterol (DULERA) 100-5 mcg/actuation inhaler Inhale 2 Puffs as instructed two times a day. cefADROxil (DURICEF) 500 mg capsule Take 1 capsule by mouth two times a day. clonazePAM (KLONOPIN) 0.5 mg tablet Take at bedtime for insomnia and RLS. Patient should start on September 27, 2024. traZODone (DESYREL) 100 mg tablet Take 1 tablet by mouth daily at bedtime. trospium (SANCTURA) 20 mg tablet Take 1 tablet by mouth two times a day. albuterol HFA (VENTOLIN HFA) 90 mcg/actuation inhaler Inhale 2 Puffs as instructed every 4 hours as needed for wheezing/shortness of breath. CPAP/BIPAP/OTHER APAP 7-15 cmH2O DME [employer] celecoxib (CELEBREX) 200 mg capsule Take 1 capsule by mouth two times a day. folic acid 1 mg tablet Take 1 tablet by mouth once daily. hydroCHLOROthiazide 25 mg tablet Take 1 tablet by mouth once daily. azelastine (ASTELIN, ASTEPRO) 0.1% nasal spray Use 2 Sprays in each nostril twice daily as needed. metoprolol succinate ER (TOPROL XL) 50 mg 24 hr tablet Take 2 tablets by mouth once daily. (Patient taking differently: Take 100 mg by mouth once daily. Prn depending on BP reading) CPAP Lifetime supplies for AutoPAP 6-11 cm H20 including mask, heated tubing, humidity, filters. Fax day download report to [phone] to assess residual ahi. vit C-Zn gluc-herbal [...] Take 10,000 Units by mouth once daily. doxycycline (VIBRA-TABS) 100 mg tablet Take 1 tablet by mouth two times a day for 10 days. (Patient not taking: Reported on 09/28/2024) clobetasol (TEMOVATE) 0.05 % ointment Apply 1 application to affected area two times a day. (Patient not taking: Reported on 09/30/2024) methotrexate 2.5 mg tablet Take 6 tablets by mouth every Sunday. as directed. atorvastatin (LIPITOR) 40 mg tablet Take 1 tablet by mouth daily at bedtime. For cholesterol. No current facility-administered medications on file prior to visit. Social History Social History Tobacco Use Smoking status: Former Current packs/day: 0.00 Average packs/day: 0.1 packs/day for 2.0 years (0.2 ttl pk-yrs) Types: Cigarettes Start date: 04/26/2008 Quit date: 04/26/2010 Years since quittin.4 Smokeless tobacco: Never Vaping Use Vaping status: Never Used Substance Use Topics Alcohol use: Not Currently Comment: 1-2 times a week at most: wine Drug use: Never Review of Symptoms REVIEW OF SYSTEMS GENERAL: No weight loss, malaise or fevers HEENT: No changes in hearing or vision, no nose bleeds or other nasal problems NECK: Negative for lumps, goiter, pain and significant neck swelling RESPIRATORY: See HPI CARDIOVASCULAR: Negative for chest pain, leg swelling, CHF or palpitations GI: Negative for abdominal discomfort, blood in stools or black stools, change in bowel habit, heart burn, nausea, vomiting : No history of dysuria, frequency or incontinence MUSCULOSKELETAL: chronic SKIN: Negative for lesions, rash, and itching PSYCH: improving HEMATOLOGY/LYMPHOLOGY: Negative for prolonged bleeding, bruising easily or swollen nodes ENDOCRINE: Negative for cold or heat intolerance, polyuria, polydipsia and goiter NEURO: No history of headaches, syncope, paralysis, seizures or tremors EXAM: BP 112/76 (BP Site: Left Arm, BP Position: Sitting, BP Cuff Size: Large Adult) Pulse 78 Temp 36.7 C (98.1 F) Resp 18 Ht 171 cm (5' 7.32) Wt 89.4 kg (197 lb) LMP 08/04/2008 SpO2 94% BMI 30.56 kg/m General Appearance: Well appearing, alert, in no acute distress, well-hydrated, well nourished.. Skin: Skin color, texture, turgor normal, no suspicious rashes or lesions. Head: Normocephalic, no masses, lesions, tenderness or abnormalities. Eyes: Anicteric sclera. Pupils are equally round and reactive to light. Extraocular movements are intact. . Ears: External ears normal, canals clear, TMs pearly marsh. Nose/Sinuses: Nares normal, septum midline, mucosa normal, [...] symmetric. Sensation grossly intact.. Health Maintenance List Shingrix Vaccine(1 of 2) Never done RSV Vaccine(1 - Risk 60-74 years 1-dose series) Never done Influenza Vaccine(1) due on 03/02/2025 Covid-19 Vaccine(1) due on 09/30/2025 Mammogram Screening due on 08/11/2025 Annual PCP Team Chronic Disease Visit due on 09/30/2025 BP Controlled (<130/80) due on 09/30/2025 Diabetes Screening due on 07/10/2027 Lipid Screening due on 10/09/2027 Colorectal Cancer Screening due on 09/23/2029 DTaP,Tdap,Td Vaccine(5 - Td or Tdap) due on 03/12/2030 Bone Density Screening Completed Advance Directive Discussion Completed Hepatitis C Screening Completed Pneumococcal Vaccine: 50+ Completed Cervical Cancer Screening Discontinued Data reviewed N/a ASSESSMENT/PLAN: 1. Encounter for Medicare annual wellness exam - ICD9: V70.0, ICD10: Z00.00 (primary diagnosis) - Counseled on healthy diet and regular exercise 2. Advance directive discussed with patient - ICD9: V65.49, ICD10: Z71.89 In chart 3. Hypertension, essential - ICD9: 401.9, ICD10: I10 - Controlled - Continue current medications - Recommend home blood pressure monitoring, to bring results to next visit - Encouraged sodium restriction, DASH or Mediterranean diet - Recommend regular aerobic exercise - HYDROCHLOROTHIAZIDE 25 MG TABLET - COMPREHENSIVE METABOLIC PANEL - COMPLETE BLOOD COUNT AND DIFFERENTIAL 4. Leg swelling - ICD9: 729.81, ICD10: M79.89 Continue with cardio - HYDROCHLOROTHIAZIDE 25 MG TABLET 5. Vitamin D deficiency - ICD9: 268.9, ICD10: E55.9 Await labs - VITAMIN D 25 HYDROXY 6. Hydrocephalus, adult (HCC) - ICD9: 331.4, ICD10: G91.9 Cont with specialist 7. Other migraine without status migrainosus, not intractable - ICD9: 346.80, ICD10: G43.809 Cont with neuro Overal stable 8. Fibromyalgia - ICD9: 729.1, ICD10: M79.7 Stable Cont currentm management 9. Ascending aorta dilatation (HCC) - ICD9: 447.71, ICD10: I77.810 Cont with cardio 10. Mixed hyperlipidemia - ICD9: 272.2, ICD10: E78.2 - Controlled - Continue current medications - Counseled on healthy diet and regular exercise - LIPID PANEL, NONFASTING - COMPLETE BLOOD COUNT AND DIFFERENTIAL 11. Thoracic aortic aneurysm without rupture, unspecified part (HCC) - ICD9: 441.2, ICD10: I71.20 Continue with cardio 12. Fatty liver - ICD9: 571.8, ICD10: K76.0 Cont current management 13. Gastroesophageal reflux disease without esophagitis - ICD9: 530.81, ICD10: K21.9 stable - COMPREHENSIVE METABOLIC PANEL - COMPLETE BLOOD COUNT AND DIFFERENTIAL 14. Elevated hemoglobin A1c - ICD9: 790.29, ICD10: R73.09 Await labs - COMPREHENSIVE METABOLIC PANEL - HEMOGLOBIN A1C 15. Situational mixed anxiety and depressive disorder - ICD9: 309.28, ICD10: F43.23 improving 16. Rheumatoid arthritis, involving unspecified site, unspecified whether rheumatoid factor present (HCC) - ICD9: 714.0, ICD10: M06.9 Patient plans to find someone closer to [place]. Follow up in 6 months Sooner as needed. If cough does not resolve, recommend follow up with pulm Edwina Khoury PA-C I spent a total of 45 minutes on the date of the service which included preparing to see the patient, [id number] patient care, completing clinical documentation, obtaining and/or reviewing separately obtained history, performing a medically appropriate examination, counseling and educating the patient/family/caregiver, ordering medications, tests, or procedures, and communicating results to the patient/family/caregiver. documented in this encounter [facility] 09-30-2024 Telephone encounter Note Patient contacted by telephone and advised of NEGATIVE chest x-ray report. Patient to continue current treatment and contact PCP or report to an emergency department for further management. CLINICAL IMPRESSION: Cough [facility] Work Phone: 09-30-2024 Miscellaneous Notes Patient contacted by telephone and advised of NEGATIVE chest x-ray report. Patient to continue current treatment and contact PCP or report to an emergency department for further management. CLINICAL IMPRESSION: Cough documented in this encounter [facility] 09-30-2024 History of Present illness Narrative Radiology Service Progress Note PATIENT NAME: Kristina Burch DATE OF SERVICE: September 30, 2024 TIME: 10:46 AM PATIENT IDENTITY VERIFICATION COMPLETED USING TWO (2) IDENTIFIERS: Name and Date of confirmed by patient verbally. FALL SCREENING: Has the patient had 2 falls in the last year or 1 fall with injury or currently using an Ambulatory Assistive Device (Walker, Cane, Wheelchair, Crutches, etc.)? No PATIENT GENDER DATA: Assigned female at . status: : No status: NO. PATIENT RELEVANT IMPLANT DATA REVIEWED: Not Applicable PATIENT PRESENTS WITH AN IMPLANTABLE OR ATTACHED CLOTH TESTER QUALITY: No RADIOLOGY DEPARTMENT: General X-ray: Exam(s) Completed: Chest X-Ray PERIPHERAL IV DATA: Not applicable SIGNED BY: Ace Churchill September 30, 2024 10:46 AM documented in this encounter [facility] 09-30-[address] [facility] 09-28-[address] [facility] 09-28-2024 History of Present illness Narrative This note was created using SIZESEEKERter. Subjective Kristina Burch is a 64 year old female. Patient presents for worsening head congestion and now has cough, chest congestion. Patient was on duricef previously and then started on doxycycline when sinus symptoms did not resolve. Denies fever, chills. Reports Mild SOB with exertion. Objective BP 106/68 Pulse 80 Temp 37.1 C (98.7 F) Resp 16 Wt 89 kg (196 lb 3.4 oz) LMP 08/04/2008 SpO2 96% BMI 28.56 kg/m Physical Exam PHYSICAL EXAMINATION: General appearance: Well appearing, alert, in no acute distress, well-hydrated, well nourished. Nose/Sinuses: Positive findings: mucosa erythematous and swollen, purulent rhinorrhea Oropharynx: Lips, mucosa, and tongue normal, teeth and gums normal, oropharynx normal Neck: Supple, no adenopathy; thyroid symmetric, normal size, no bruits Lungs: Lungs clear to auscultation. No wheezing, rhonchi, rales. Heart: RRR without murmur, gallop, or rubs. No ectopy Assessment and Plan ASSESSMENT/PLAN: 1. Productive cough - ICD9: 786.2, ICD10: R05.8 - Patient encouraged to continue doxycyline as prescribed until notified of chest xray results. - XR CHEST 2V FRONTAL/LAT Selam Argueta APRN.[employer] documented in this encounter [facility] 09-26-2024 Telephone encounter Note Patient notified. [place] scheduled. Tessy Hart, ANNELIESE [facility] 09-26-2024 Miscellaneous Notes Patient notified. [place] scheduled. Tessy Hart RN Left message for patient to call office. Marcy Bocanegra RN HPV + Continued vaginal irritation Hysterectomy (for abnormal cells of cervix - no records - transfer of care) Recommend colposcopy of vaginal vault for HPV + and ongoing irritation Kimberly Grajeda APRN.VICKY documented in this encounter [facility] 09-26-2024 Telephone encounter Note Left message for patient to call office. Marcy Bocanegra RN [facility] 09-26-2024 Telephone encounter Note HPV + Continued vaginal irritation Hysterectomy (for abnormal cells of cervix - no records - transfer of care) Recommend colposcopy of vaginal vault for HPV + and ongoing irritation Kimberly Grajeda APRN.[employer] [facility] 09-24-[address] [facility] 09-24-2024 History of Present illness Narrative Scan on 09/23/2024 3:38 PM by ProviderKarolina PA-C: Colonoscopy Scan on 09/23/2024 3:40 PM by ProviderKarolina PA-C: EGD Scan on 09/23/2024 2:06 PM by ProviderKarolina PA-C Scan on 09/23/2024 3:40 PM by ProviderKarolina PAJose Luis: Letters Scan on 09/23/2024 3:24 PM by ProviderKarolina PA-C: Letters documented in this encounter [facility] 09-23-2024 Evaluation note Diagnosis Onset Date Resolution Diarrhea acute September 23, 2024 12:59pm Hematochezia acute September 12:59pm Lumbar radiculopathy acute Febr [id number] 1:18pm Degenerative disc disease noneactive October 24, 2 025 1:18pm [facility] Work Phone: 1(590) 276-207001-21-2025 [facility] Medical Records Department [address] [place] [address] History Physical Exam 09/23/24 1357 MR#: [id number] Acct: [id number] Name: KRISTINA BURCH Rep #: [id number] : 1960 64 From: Magdi Tam DO PCP: Dr. Ganga Nunez MD Status:[facility] Location: [place] [address] HPI - General General Date of Admission: 09/23/24 Date of Service: 09/23/24 Chief Complaint: Diarrhea and abdominal pain HPI Narrative KRISTINA BURCH, is a 64 F who presents*[facility] 05.28.24 after two episodes of filling the bowel with bright red blood w/ bm. Pt has been doing better since then with no further episodes of bleeding. In 2018, pt underwent colon resection for acute diverticulitis. Since then she has had issues w/ diarrhea. She is having loose stool around 4x per day that is urgent. Over the past month she has been on a diet and has lost about 20lbs. She is fine with having diarrhea as she feels it helping with weight loss. She has heartburn on rare occasion and will take TUMs if needed. Colonoscopy and EGD in 2018 CT abdomen/pelvis 05.28.24; Scattered sigmoid diverticulosis. There is evidence of a surgical anastomosis at the colorectal junction. Stable right renal cyst. Fatty infiltration of the liver. She comes in today for EGD and colonoscopy to evaluate her upper and lower GI tract because of worsening abdominal pain and persistent diarrhea. CBC W/Diff, Automated Today K92.1 - Melena [facility] Medical History Cancer DVT (deep venous thrombosis) Migraine headache Former smoker Shortness of breath on exertion Rheumatoid arthritis Wears glasses Post-menopausal Depression Alcohol use Arthritis High cholesterol Easy bruising Excessive bleeding Neck pain Restless legs History of IBS History of diverticulitis Heartburn Gastric reflux Non-smoker CPAP (continuous positive airway pressure) dependence On home oxygen therapy Leg cramps Fibromyalgia History of stress test Cardiology follow-up encounter Hx of hydrocephalus History of tennis elbow Nonrheumatic aortic (valve) insufficiency Acute respiratory failure with hypoxia COVID-19 Valvular heart disease Non-rheumatic tricuspid valve insufficiency Essential hypertension Tricuspid insufficiency Thoracic aneurysm without mention of rupture Hyperlipidemia Abnormal electrocardiogram Nonrheumatic mitral valve disorder, unspecified Nonrheumatic aortic valve disorder, unspecified Abnormal echocardiogram Ascending aortic aneurysm Anxiety Diverticulitis Home Medications ???Medication ???Instructions ???Recorded ???Last Taken ???Type multivitamin with folic acid 400 1 tab PO DAILY 06/17/17 05/27/24 History mcg tablet albuterol sulfate 90 mcg/actuation 1 inh inhalation Q6H PRN shortness 05/31/21 Unknown Rx aerosol inhaler of breath or wheezing #8.5 grams trazodone 100 mg tablet 100 mg PO QHS 10/24/21 05/27/24 History cholecalciferol (vitamin D3) 125 10,000 unit PO DAILY 01/25/22 05/27/24 History mcg (5,000 unit) tablet azelastine 137 mcg (0.1 %) nasal 2 spray intranasal BID PRN 08/07/22 Unknown History spray ALLERGIES clonazepam 0.5 mg tablet (Klonopin) 0.5 mg PO QHS #30 tabs 03/18/24 05/27/24 Rx fluoxetine 40 mg capsule 40 mg PO DAILY 03/31/24 Unknown History celecoxib 200 mg capsule 200 mg PO DAILY 05/28/24 Unknown History budesonide-formoterol HFA 160 2 puff inhalation BID 06/17/24 Unknown History mcg-4.5 mcg/actuation aerosol inhaler (Symbicort) folic acid 1 mg tablet 1 mg PO QDAY 06/17/24 Unknown History hydrochlorothiazide 25 mg tablet 25 mg PO QDAY PRN HTN 06/17/24 Unknown History methotrexate sodium 2.5 mg tablet 2.5 mg PO REYES 06/17/24 Unknown History metoprolol succinate 100 mg 100 mg PO QHS PRN Elevated blood 06/17/24 Unknown Rx tablet,extended release 24 hr pressure #90 tabs Allergy/AdvReac Type Severity Reaction Status Date / Time oxycodone Allergy Swelling Verified 09/23/24 13:29 hydromorphone (From Dilaudid) AdvReac Other Verified 09/23/24 13:29 nabumetone (From Relafen) AdvReac Nausea Verified 09/23/24 13:29 Sulfa (Sulfonamide AdvReac Nausea Verified 09/23/24 13:29 Antibiotics) tramadol HCl (From Ultram) AdvReac Nausea Verified 09/23/24 13:29 Family History Father CAD (coronary artery disease) Mother aneursym Surgical History History of colonoscopy History of esophagogastroduodenoscopy (EGD) History of hip replacement Hx of shoulder surgery Hx of appendectomy Hx of tubal ligation Hx of rotator cuff surgery History of hernia repair History of colon surgery ( 10/2017) Social History ... [facility]01-20-2025 Telephone encounter Note* Telephone Encounter - Claribel Mason LPN - 09/22/2024 2:07 PM EST Received fax from Dr Vargas's office requesting last ov notes, x-ray thoracic and ribs. Requested info has been faxed back to their office at [phone]. Claribel Mason LPN [facility]01-20-2025 Miscellaneous Notes* Telephone Encounter - Claribel Mason LPN - 09/22/2024 2:07 PM EST Received fax from Dr Vargas's office requesting last ov notes, x-ray thoracic and ribs. Requested info has been faxed back to their office at [phone]. Claribel Mason LPN documented in this encounterCleveland [id number] Telephone encounter Note * Telephone Encounter - Tati Penny MA - 09/22/2024 11:43 AM EST Error on patient part. She sent refill request to the wrong physician. She ment to send to PCP. [facility]01-20-2025 Miscellaneous Notes* Telephone Encounter - Tati Penny MA - 09/22/2024 11:43 AM EST Error on patient part. She sent refill request to the wrong physician. She ment to send to PCP. * Telephone Encounter - Herber Reed PA-C - 09/22/2024 9:[address] Burnett note 05/26/24: Prozac 40 mg bid 2021 no help pain 2023 quit 05/26/2024 ?? Resume not sure why off refill PCP to manage Pt needs to see her PCP for Prozac refills. Appears this was a curtesy refill until she could see her PCP for refills. No discussion of depression, anxiety at her appointment, no PHQ-9 completed. Rheumatology does not manage depression / anxiety. Needs to follow up with her PCP for this medication as per Dr. Burnett's last note. * Telephone Encounter - Tati Penny MA - 09/22/2024 8:58 AM EST Pharmacy sent a [employer] message requesting the following refill. Requested Prescriptions Pending Prescriptions Disp Refills FLUoxetine (PROZAC) 20 mg capsule 90 capsule 0 Sig: Take 1 capsule by mouth once daily. Patient last appointment: 07/08/2024 Herber Next Appointment: 10/06/2024 Patient Phone numbers: [phone] (home) Request is for script(s) to be escript to pharmacy. Tati Penny MA documented in this encounterOhio[facility] Telephone encounter Note * Telephone Encounter - Herber Reed PA-C - 09/22/2024 9:[address] Burnett note 05/26/24: Prozac 40 mg bid 2021 no help pain 2023 quit 05/26/2024 ?? Resume not sure why off refill PCP to manage Pt needs to see her PCP for Prozac refills. Appears this was a curtesy refill until she could see her PCP for refills. No discussion of depression, anxiety at her appointment, no PHQ-9 completed. Rheumatology does not manage depression / anxiety. Needs to follow up with her PCP for this medication as per Dr. Burnett's last note. [facility] Work Phone: 1(201) 492-791901-20-2025 Telephone encounter Note* Telephone Encounter - Tati Penny MA - 09/22/2024 8:58 AM EST Pharmacy sent a [employer] message requesting the following refill. Requested Prescriptions Pending Prescriptions Disp Refills FLUoxetine (PROZAC) 20 mg capsule 90 capsule 0 Sig: Take 1 capsule by mouth once daily. Patient last appointment: 07/08/2024 Herber Next Appointment: 10/06/2024 Patient Phone numbers: [phone] (home) Request is for script(s) to be escript to pharmacy. Tati Penny MA [facility]01-17-2025 Telephone encounter Note* Telephone Encounter - Marcy Bocanegra RN - 09/19/2024 11:12 AM EST Pt notified and voiced understanding. Marcy Bocanegra RN [facility]01-17-2025 Miscellaneous Notes* Telephone Encounter - Marcy Bocanegra RN - 09/19/2024 11:12 AM EST Pt notified and voiced understanding. Marcy Bocanegra RN * Telephone Encounter - Sarah Lopez APRN.CNP - 09/19/2024 10:46 AM EST Please let the pt know that vaginal cultures are negative. She can try boric acid vaginal suppositories to balance the pH. Sarah Lopez APRN.CNP * Telephone Encounter - Marcy Bocanegra RN - 09/19/2024 8:41 AM EST Bacterial vaginosis Not detected Not detected Comment: Corrected result: Previously reported as Indeterminate on 09/18/2024 at 9:53 PM EST. Please see comment. Lab called as well to report corrected result. Please address in EH absence. Marcy Bocanegra RN documented in this encounterOhio[facility] Telephone encounter Note * Telephone Encounter - Sarah Lopez APRN.CNP - 09/19/2024 10:46 AM EST Please let the pt know that vaginal cultures are negative. She can try boric acid vaginal suppositories to balance the pH. Sarah Lopez APRN.CNP [facility] Work Phone: [phone]) 623-611201-17-2025 Telephone encounter Note* Telephone Encounter - Marcy Bocanegra RN - 09/19/2024 8:41 AM EST Bacterial vaginosis Not detected Not detected Comment: Corrected result: Previously reported as Indeterminate on 09/18/2024 at 9:53 PM EST. Please see comment. Lab called as well to report corrected result. Please address in EH absence. Marcy Bocanegra RN [facility]01-16-2025 Instructions* Patient Instructions* Shruthi Iqbal MA - 09/18/2024 8:51 AM EST Minimizing irritation of the vulva (area around the vagina) Wear white cotton underwear. Avoid synthetic fabrics and tight clothing. Sleep wearing shorts or pajama bottoms without underwear. Shower as soon as possible after exercise. Avoid clothing detergents and soaps with perfumes or dyes. Use warm (not hot) water to wash the vulva and if you use soap use a product designed for sensitive skin (like Dove or Cetaphil). Do not douche or use creams/powders in the vulvar area unless instructed by your physician. If you must douche, use only plain warm water. Make sure the vulva is dry before dressing by patting dry with a towel. Avoid vigorous rubbing withthe towel. You may want to use the blow dryer (on the cool setting only!) on the vulva. The most important way to let your body heal is by avoiding scratching. Many patients find it difficult to avoid scratching at night when they are most aware of the itchiness. You can try taking Benadryl just before bedtime. Some women find it helpful to wear cotton gloves to bed to avoid scratching at night. documented in this encounterOhiohealth [facility] [facility] History of Present illness Narrative* Kimberly Grajeda APRN.VICKY - 09/18/2024 8:50 AM EST Photoengraving Sketch Maker offered: Patient declines. Kristina Burch is a 64 year old female who presents for vaginal discharge and odor for a couple ofmonths Vaginal discharge: large amount, foul smelling, green. Itching: No Dyspareunia: No Fever/chills: No Abdominal pain: No Bladder: Negative for dysuria or frequency Bowel: No blood in stool, pain with BM, tarry stool, persistent diarrhea or constipation Any new sexual partners or concern for STD exposure: No Any history of STDs: None Does your partner have any new complaints: No Are you currently taking any medications to treat vaginitis: Clobetasol Do you use feminine sprays, douches or deodorants: No Menstrual cycle: Hysterectomy Contraception: hysterectomy Last pap: 2023, normal, HPV + Past medical, surgical, social history, medications and allergies reviewed and updated. OBJECTIVE: SENSITIVE EXAM: The sensitive examination was discussed with the Patient or Patient's Authorized Ux Information Architect. As applicable, any other physician, advance practice provider, medical student, or other health professional student that will be observing or involved in the sensitive examination for educational or training purposes was discussed with the Patient or Authorized Ux Information Architect. The Patient or Authorized Ux Information Architect has agreed to proceed with the sensitive examination. (Sensitive examination includes inspection and/or palpation of the breasts, pelvis, prostate and anorectal regions). BP 120/64 Wt 199 lb (90.3kg) LMP 08/04/2008 GENERAL: Well developed, well nourished in no apparent distress PELVIC: external genitalia atrophic with erythema extending from bilateral labia majora to anus, normal Bartholin's glands, urethra, Grottoes's glands, no vulvar lesions, cervix surgically absent, good vaginal support, thick green discharge, normal appearing perineal body and perianal region BIMANUAL: no adnexal masses, non-tender, and uterus surgically absent. RECTOVAGINAL: deferred. ASSESSMENT/PLAN: 1. Vaginal discharge - ICD9: 623.5, ICD10: N89.8 (primary diagnosis) 2. Vaginal odor - ICD9: 625.8, ICD10: N89.8 - Recommend women's health probiotic - BACTERIAL VAGINOSIS NAAT - LONA/TRICHOMONAS NAAT - PAP TEST 3. Vaginal high risk human papillomavirus (HPV) DNA test positive - ICD9: 795.15, ICD10: R87.811 - PAP TEST Kimberly Grajeda APRN.CNP Medical Decision Making: Problems: Low: Acute, uncomplicated illness or injury Data: Unique test(s) ordered: 3+ Risk: Minimal: Minimal risk from testing/treatment Medical Decision Making Level: 3 - Low documented in this encounterOhiohealth [facility]01-15-2025 Instructions* Patient Instructions* Tyler Wray APRN.CNP - 09/17/2024 9:18 AM EST Stop Symbicort. Start using Mometasone-formoterol (Dulera) 100-5 MCG 2 puffs twice daily with spacer. Rinse mouth after every use. Continue nasal spray and antibiotic from PCP. documented in this encounterOhiohealth [facility]01-15-2025 History of Present illness Narrative* Tyler Wray APRN.CNP - 09/17/2024 9:00 AM EST Images from the original note were not included. Pulmonary Medicine Patients name: Kristina Burch PCP: Ganga Nunez MD CC: follow-up SOB HPI: Kristina Burch is a 64 year old female former minimal smoker with PMH significant for obesity, HUBER on CPAP with oxygen bleed-in, hydrocephalus, fibromyalgia, MANDIE, HLD history of COVID PNA 2020 with hypoxemic respiratory failure (previously on O2), chronic post COVID dyspnea, and stable lung nodule. Current therapy consists of Symbicort and PRN Albuterol. She presents today for follow-up. MINE 06/17/[address] Quarles with worsening SOB for the past month and relief with Albuterol. Subsequent IGE and FENO were both normal. PFT with no obstruction but did reveal small airway disease. Started on Symbicort and encouraged regular use of nasal spray for PND. Since that time, she reports SOB has improved approximately 50%. She does note that she experiences nausea for about 30 minutes after use. Was seen by PCP yesterday and treated for sinus infection with symptoms that had been going on for approximately 2 weeks. Currently on antibiotics. Continues to have PND, uses Astelin PRN. As far as dyspnea, she denies at rest. Exertional dyspnea has improved but still notes with heavy housework/climbing stairs. Albuterol use is approximately once a week. Monitors SPO2 at home, typically 93-98%. DME: [employer] 02 PAST MEDICAL HISTORY Diagnosis Date Abnormal mammogram Acute respiratory disease due to COVID-19 virus 06/16/[address] Scott Quarles Advance directive discussed with patient 04/06/2022 Discussed 04/06/2022 Arthritis of knee, left 01/31/2013 Arthritis of left hip 01/19/2016 Arthritis of left shoulder region 10/10/2023 Ascending aorta dilatation (HCC) 07/04/2017 04/19/16: 4.2 [...] 04/06/2022 Excessive or frequent menstruation Heavy periods Fatty liver Fatty liver 08/11/2024 US elastography 08/2024: F2-F3 Fibromyalgia 02/26/2014 Gastroesophageal reflux disease without esophagitis 04/24/2023 Hemorrhage of gastrointestinal tract, unspecified History of COVID-19 06/13/202105/2021 Hydrocephalus, adult (HCC) 02/09/2003 Hypertension, essential 01/22/2019 Lichen sclerosus Living will on file 04/06/2022 DPA: Dustin () Lung nodule 01/24/2022 Seeing pulm Migraines 07/26/2021 Used to see neuro and was getting Botox Mild dysplasia of cervix 2006 Mixed hyperlipidemia 01/20/2016 Nonrheumatic mitral valve disorder, unspecified 04/06/2016 Obesity, Class I, BMI 30-34.9 03/13/2024 Obstructive sleep apnea 10/13/2016 DME - [employer] Plantar fasciitis 2018 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 Scott Quarles Postcoital bleeding Primary insomnia 06/13/2021 Primary osteoarthritis of both knees 11/15/2022 Primary osteoarthritis of both shoulders 04/06/2022 Seeing [facility] Rectocele 04/19/2007 Renal cyst 07/13/2016 Rheumatoid arthritis (HCC) 04/24/2023 Seeing Rheum. Right knee pain RLS (restless legs syndrome) 02/25/2024 Situational mixed anxiety and depressive disorder 11/12/2017 [...] Other: See Comments Comment:Tremors right upper extremity. Medication List Accurate as of September 12, 2024 2:05 PM. If you have any questions, ask your nurse or doctor. CHANGE how you take these medications metoprolol succinate ER 50 mg 24 hr tablet Commonly known as: TOPROL XL Take 2 tablets by mouth once daily. What changed: additional instructions CONTINUE taking these medications albuterol HFA 90 mcg/actuation inhaler Commonly known as: VENTOLIN HFA Inhale 2 Puffs as instructed every 4 hours as needed for wheezing/shortness of breath. atorvastatin 40 mg tablet Commonly known as: LIPITOR Take 1 tablet by mouth daily at bedtime. For cholesterol. azelastine 0.1% nasal spray Use 2 Sprays in each nostril twice daily as needed. BIOTIN ORAL budesonide-formoterol 160-4.5 mcg/actuation inhaler Commonly known as: SYMBICORT Inhale 2 Puffs as instructed two times a day. CALTRATE 600 ORAL celecoxib 200 mg capsule Commonly known as: CeleBREX Take 1 capsule by mouth two times a day. Cholecalciferol (Vitamin D3) 50 mcg (2,000 unit) Cap clobetasol 0.05 % ointment Commonly known as: TEMOVATE Apply 1 application to affected area two times a day. clonazePAM 0.5 mg tablet Commonly known as: KlonoPIN Take at bedtime for insomnia and RLS. Patient should start on September 27, 2024. Start taking on: September 27, 2024 CPAP Lifetime supplies for AutoPAP 6-11 cm H20 including mask, heated tubing, humidity, filters. Fax 30 day download report to [phone] to assess residual ahi. CPAP/BIPAP/OTHER APAP 7-15 cmH2O DME [employer] ELDERBERRY ZINC VIT C 90-15 mg Lozg Generic drug: vit C-Zn gluc-herbal no.325 Use 1 Lozenge as instructed twice daily. FLUoxetine 20 mg capsule Commonly known as: PROzac Take 1 capsule by mouth once daily. folic acid 1 mg tablet Take 1 tablet by mouth once daily. hydroCHLOROthiazide 25 mg tablet Take 1 tablet by mouth once daily. methotrexate 2.5 mg tablet Take 6 tablets by mouth every Sunday. as directed. multivitamin tablet traZODone 100 mg tablet Commonly known as: DESYREL Take 1 tablet by mouth daily at bedtime. trospium 20 mg tablet Commonly known as: SANCTURA Take 1 tablet by mouth two times a day. DATA: I personally reviewed and analyzed all labs, radiographs and available pulmonary function testing PFT: 06/10/2024 Spirometry is normal. The increase in FEF 25-75 post-bronchodilator reflects an improvement in the small airway obstruction. CT Chest: 09/2023 IMPRESSION: No acute pulmonary process is identified. Stable 6 mm subpleural nodule within the anterior segment of the right upper lobe. Sequela of remote granulomatous disease. Stable prominent, less than 1 cm mediastinal and bilateral hilar lymph nodes are stable and are likely reactive. Stable ectasia of ascending thoracic aorta, measuring approximately 4.3 cm. There is no aneurysm of the thoracic arch or descending thoracic aorta. Buggy Driver: PSCB Transcribe Date/Time: Sep 27 2023 10:43A Dictated by : JOHN CHAKRABORTY MD This examination was interpreted and the report reviewed and electronically signed by: JOHN CHAKRABORTY MD on Sep 27 2023 10:49AM EST Results-Findings * * *Final Report* * * DATE OF EXAM: Sep 27 2023 8:30AM [facility] 0541 - CT CHEST WO IVCON / PROCEDURE REASON: Lung nodules * * * * Physician Interpretation * * * * EXAMINATION: CHEST CT WITHOUT CONTRAST CLINICAL HISTORY: Lung nodules Technique: Spiral CT acquisition of the chest from the thoracic inlet to the upper abdomen without contrast. MQ: [id number] CT Radiation dose: Integrated Dose-length product (DLP) for this visit = 372 mGy*cm CT Dose Reduction Employed: Automated exposure control(AEC) and iterative recon Comparison: 03/20/2023, 03/13/2022 RESULT: Limitations: None. Lines, tubes, and devices: Streak artifact from right shoulder arthroplasty limits evaluation of extreme right upper chest. Lung parenchyma and airways: There is a stable, approximately 6 mm subpleural nodule within the anterior segment of the right upper lobe (series 5, image #79). Mild biapical fibrosis. Calcified granulomas are again seen within the right upper lobe. There is no new pulmonary nodule. Mild dependent atelectasis. There is linear atelectasis seen within the lingula. Pleural space: There is no pleural effusion. Lower neck, lymph nodes, and mediastinum: There are no pathologically enlarged axillary lymph nodes. Prominent, less than 1 cm mediastinal and bilateral hilar lymph nodes are stable and are likely reactive. Heart, pericardium, and thoracic vessels: Subtle calcification is again seen left breast. Atherosclerotic calcification present within thoracic aorta and coronary arteries. Stable ectasia of the ascending thoracic aorta, measuring approximately 4.3 cm. There is no aneurysm of the thoracic arch or descending thoracic aorta. The heart is normal in size. There is no significant pericardial effusion. Bones and soft tissues: There is multilevel degenerative change seen within the thoracic spine. The patient is status post right shoulder arthroplasty. There is left shoulder DJD. There is no destructive bony lesion. Upper abdomen: Nonspecific wall thickening of the stomach likely relates to underdistention. Large right renal cysts. The gallbladder is relatively collapsed but is otherwise unremarkable. Labs: WBC (k/uL) Date Value 07/10/2024 6.33 03/30/2021 7.36 RBC (m/uL) Date Value 07/10/2024 4.05 03/30/2021 4.30 Hemoglobin (g/dL) Date Value 07/10/2024 13.1 03/30/2021 13.8 Hematocrit (%) Date Value 07/10/2024 37.8 03/30/2021 41.4 Platelet Count (k/uL) Date Value 07/10/2024 169 03/30/2021 228 MPV (fL) Date Value 07/10/2024 12.8 03/30/2021 11.3 Neut% (%) Date Value 03/30/2021 62.0 Neutrophils % (%) Date Value 07/10/2024 57.6 Eosin% (%) Date Value 03/30/2021 0.7 Eosinophils % (%) Date Value 07/10/2024 2.1 Baso% (%) Date Value 03/30/2021 0.3 Basophils % (%) Date Value 07/10/2024 0.3 Abs Neut (ANC) (k/uL) Date Value 03/30/2021 4.56 Abs Neut (k/uL) Date Value 07/10/2024 3.65 Abs Costilla (k/uL) Date Value 07/10/2024 0.63 03/30/2021 0.85 Abs Eosin (k/uL) Date Value 07/10/2024 0.13 03/30/2021 0.05 Abs Baso (k/uL) Date Value 07/10/2024 <0.03 03/30/2021 <0.03 IgE (kU/l) Date Value 06/17/2024 10.4 IMMUNIZATIONS Prevnar - 04/2023 Pneumovax 23 - xx Influenza - xx COVID-19 - xx RSV- xx Review of Systems Constitutional: Negative for activity change, appetite change, fever and unexpected weight change. HENT: Positive for congestion, postnasal drip and sinus pressure. Negative for mouth sores. Respiratory: Positive for cough, shortness of breath and wheezing. Negative for chest tightness. Cardiovascular: Negative for chest pain, palpitations and leg swelling. Neurological: Negative for weakness and headaches. BP 120/70 Pulse 72 Resp 20 Wt 90.7 kg (200 lb) LMP 08/04/2008 SpO2 95% BMI 29.11 kg/m Physical Exam Vitals reviewed. Constitutional: General: She is not in acute distress. Appearance: Normal appearance. She is not ill-appearing. HENT: Head: Normocephalic. Nose: No rhinorrhea. Mouth/Throat: Mouth: Mucous membranes are moist. Pharynx: No oropharyngeal exudate. Cardiovascular: Rate and Rhythm: Normal rate and regular rhythm. Heart sounds: Normal heart sounds. Pulmonary: Effort: Pulmonary effort is normal. No respiratory distress. Breath sounds: No wheezing or rhonchi. Musculoskeletal: Right lower leg: No edema. Left lower leg: No edema. Lymphadenopathy: Cervical: No cervical adenopathy. Skin: General: Skin is warm and dry. Capillary Refill: Capillary refill takes less than 2 seconds. Neurological: General: No focal deficit present. Mental Status: She is alert. ASSESSMENT/PLAN: 1. Post-COVID chronic dyspnea - ICD9: 786.09, 139.8, ICD10: R06.09, U09.9 (primary diagnosis) 2. Small airways disease - ICD9: 518.89, ICD10: J98.4 - noting symptom improvement with Symbicort, requesting to switch inhaler d/t nausea - Start Mometasone-formoterol (Dulera) 100-5 MCG 2 puffs twice daily with spacer. Rinse mouth afterevery use. Provided with spacer - patient to notify the office after one month of use regarding side effects, efficacy. Will likelyneed to increase dose. - continue PRN Albuterol - stable SPO2 monitoring at home 3. Acute sinusitis, recurrence not specified, unspecified location - ICD9: 461.9, ICD10: J01.90 - Supportive care with plenty of fluids, rest, and analgesia prn. - currently on Duricef per PCP F/u 4 months Portions of this documentation were copied and pasted from previous office visit notes in order to provide a cohesive continuity of the history. The note has been reviewed and edited and updated as necessary. Tyler Wray APRN.VICKY I spent a total of 23 minutes on the date of the service which included preparing to see the patient, [id number] patient care, completing clinical documentation, performing a medically appropriate examination, counseling and educating the patient/family/caregiver, and ordering medications, tests,or procedures. documented in this encounterOhiohealth [facility]-15-[address] [facility]-2025 History of Present illness Narrative* Mira Bateman, RT(R) - 09/16/2024 12:30 PM EST Radiology Service Progress Note PATIENT NAME: Kristina Burch DATE OF SERVICE: September 16, 2024 TIME: 12:26 PM PATIENT IDENTITY VERIFICATION COMPLETED USING TWO (2) IDENTIFIERS: Name and Date of confirmedby patient verbally. FALL SCREENING: Has the patient had 2 falls in the last year or 1 fall with injury or currently using an Ambulatory Assistive Device (Walker, Cane, Wheelchair, Crutches, etc.)? No PATIENT GENDER DATA: Assigned female at . status: : No status:NO. PATIENT RELEVANT IMPLANT DATA REVIEWED: Not Applicable PATIENT PRESENTS WITH AN IMPLANTABLE OR ATTACHED CLOTH TESTER QUALITY: No RADIOLOGY DEPARTMENT: General X-ray: Exam(s) Completed: Rib X-Ray: Right Spine X-Ray(s): Thoracic PERIPHERAL IV DATA: Not applicable SIGNED BY: RT Yeni(R) September 16, 2024 12:26 PM documented in this encounterOhiohealth [facility]01-14-[address] [facility] [facility]01[facility]-2025 History of Present illness Narrative* Ganga Nunez MD - 09/16/2024 11:27 AM EST Chief Complaint Patient presents with: Sinus Infection HPI Kristina Burch is a 64 year old female who presents here today for sinus infection; right side pain - feels like right rib; - did have fall. Patient with hx of hyperlipidemia, HTN, thoracic aortic aneurysm, aorta dilatation, aortic regurg, HUBER, anxiety/depression, vit d def. Fibro, insomnia, post COVID dyspnea, hydrocephalus and those as below. Patient fell about two weeks ago and hit a wall. Hit her back and right shoulder. Has pain in the right upper back. No pain in the shoulder. No pain or stiffness in the shoulder with use. Has been having sinus symptoms for just over two weeks. No fevers, chills, sore throat. No increased shortness of breath. No nausea, vomiting or diarrhea. Has had slight ear pain, pressure in the frontal and maxillary sinuses. Has had green nasal discharge with some blood. Slight post nasal drainage. Has a cough which has been productive of yellowish mucus and occasional blood. Some increased wheezing. Past medical history, appointments, medications, allergies reviewed. Previous Medical History PAST MEDICAL HISTORY Diagnosis Date Abnormal mammogram Acute respiratory disease due to COVID-19 virus 06/16/[address] Scott Quarles Advance directive discussed with patient 04/06/2022 Discussed 04/06/2022 Arthritis of knee, left 01/31/2013 Arthritis of left hip 01/19/2016 Arthritis of left shoulder region 10/10/2023 Ascending aorta dilatation (HCC) 07/04/2017 04/19/16: 4.2 [...] 04/06/2022 Excessive or frequent menstruation Heavy periods Fatty liver Fatty liver 08/11/2024 US elastography 08/2024: F2-F3 Fibromyalgia 02/26/2014 Gastroesophageal reflux disease without esophagitis 04/24/2023 Hemorrhage of gastrointestinal tract, unspecified History of COVID-19 06/13/202105/2021 Hydrocephalus, adult (HCC) 02/09/2003 Hypertension, essential 01/22/2019 Lichen sclerosus Living will on file 04/06/2022 DPA: Dustin () Lung nodule 01/24/2022 Seeing pulm Migraines 07/26/2021 Used to see neuro and was getting Botox Mild dysplasia of cervix 2006 Mixed hyperlipidemia 01/20/2016 Nonrheumatic mitral valve disorder, unspecified 04/06/2016 Obesity, Class I, BMI 30-34.9 03/13/2024 Obstructive sleep apnea 10/13/2016 DME - [facility] Plantar fasciitis 2018 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 Scott Quarles Postcoital bleeding Primary insomnia 06/13/2021 Primary osteoarthritis of both knees 11/15/2022 Primary osteoarthritis of both shoulders 04/06/2022 [facility] Rectocele 04/19/2007 Renal cyst 07/13/2016 Rheumatoid arthritis (HCC) 04/24/2023 Seeing Rheum. Right knee pain RLS (restless legs syndrome) 02/25/2024 Situational mixed anxiety and depressive disorder 11/12/2017 [...] 1991 VAGINAL HYSTERECTOMY UTERUS 250 GM/< 09/04/2008 09/04/08 Vaginal hysterectomy for menorrhagia, irreg menses, post-coital bleeding, mild dysplasia andUSI with Dr. Tai assisting and then he did a TVT. Family History FAMILY HISTORY Problem Relation Age of Onset Heart Mother skin cancer on nose Breast Cancer Mother Heart Father Hypertension Father Thyroid Sister No Known Problems Brother No Known Problems Maternal Grandmother No Known Problems Maternal Grandfather Heart Paternal Grandmother Emphysema Paternal Grandfather Thyroid Paternal Aunt Patient Allergies ALLERGIES Allergen [...] on File Prior to Visit Medication Sig [START ON 09/27/2024] clonazePAM (KLONOPIN) 0.5 mg tablet Take at bedtime for insomnia and RLS. Patient should start on September 27, 2024. traZODone (DESYREL) 100 mg tablet Take 1 tablet by mouth daily at bedtime. trospium (SANCTURA) 20 mg tablet Take 1 tablet by mouth two times a day. clobetasol (TEMOVATE) 0.05 % ointment Apply 1 application to affected area two times a day. budesonide-formoterol (SYMBICORT) 160-4.5 mcg/actuation inhaler Inhale 2 Puffs as instructed two times a day. albuterol HFA (VENTOLIN HFA) 90 mcg/actuation inhaler Inhale 2 Puffs as instructed every 4 hours asneeded for wheezing/shortness of breath. CPAP/BIPAP/OTHER APAP 7-15 cmH2O DME [facility] celecoxib (CELEBREX) 200 mg capsule Take 1 capsule by mouth two times a day. FLUoxetine (PROZAC) 20 mg capsule Take 1 capsule by mouth once daily. folic acid 1 mg tablet Take 1 tablet by mouth once daily. methotrexate 2.5 mg tablet Take 6 tablets by mouth every Sunday. as directed. hydroCHLOROthiazide 25 mg tablet Take 1 tablet by mouth once daily. atorvastatin (LIPITOR) 40 mg tablet Take 1 tablet by mouth daily at bedtime. For cholesterol. azelastine (ASTELIN, ASTEPRO) 0.1% nasal spray Use 2 Sprays in each nostril twice daily as needed. metoprolol succinate ER (TOPROL XL) 50 mg 24 hr tablet Take 2 tablets by mouth once daily. (Patienttaking differently: Take 100 mg by mouth once daily. Prn depending on BP reading) CPAP Lifetime supplies for AutoPAP 6-11 cm H20 including mask, heated tubing, humidity, filters. Fax 30 day download report to [phone] to assess residual ahi. vit C-Zn gluc-herbal no.325 (ELDERBERRY ZINC VIT C) 90-15 mg lozg Use 1 Lozenge as instructed twicedaily. calcium carbonate (CALTRATE 600 ORAL) Take 1 tablet by mouth once daily. multivitamin tablet Take 1 tablet by mouth once daily. BIOTIN ORAL Take 1 tablet by mouth once daily. Cholecalciferol, Vitamin D3, 2,000 unit cap Take 10,000 Units by mouth once daily. No current facility-administered medications on file prior to visit. Social History Social History Tobacco Use Smoking status: Former Current packs/day: 0.00 Average packs/day: 0.1 packs/day for 2.0 years (0.2 ttl pk-yrs) Types: Cigarettes Start date: 04/26/2008 Quit date: 04/26/2010 Years since quittin.4 Smokeless tobacco: Never Vaping Use Vaping status: Never Used Substance Use Topics Alcohol use: Yes Comment: 1-2 times a week at most: wine Drug use: Never Review of Symptoms REVIEW OF SYSTEMS See HPI EXAM: BP 150/88 Pulse 60 Temp 36.9 C (98.5 F) (Tympanic) Resp 18 Ht 176.5 cm (5' 9.5) Wt 90.7 kg (200 lb) LMP 08/04/2008 BMI 29.11 kg/m Requested Prescriptions No prescriptions requested or ordered in this encounter General Appearance: Well appearing, alert, in no acute distress, well-hydrated, well nourished.. Ears: External ears, TM's normal, canals clear. Nose/Sinuses: Nares normal, septum midline, mucosa normal, no drainage. Has mild frontal sinus tenderness and moderate maxillary sinus tenderness. Oropharynx: Lips, mucosa, and tongue normal, teeth and gums normal, oropharynx normal. Neck: Supple, no adenopathy; thyroid symmetric, normal size, no bruits. Lungs: Lungs clear to auscultation. No wheezing, rhonchi, rales.. Heart: RRR without murmur, gallop, or rubs. No ectopy. Abdomen: Normal abdominal exam, Abdomen soft, non-tender. Bowel sounds normal. No masses, organomegaly. Chest wall: has mild tenderness over the mid thoracic spine and ribs to palpation on the right sideof the ribs at bout T4-T6 region. Health Maintenance List Covid-19 Vaccine(1) Never done Shingrix Vaccine(1 of 2) Never done RSV Vaccine(1 - Risk 60-74 years 1-dose series) Never done BP Controlled (<130/80) due on 06/13/2022 Influenza Vaccine(1) due on 05/04/2024 Advance Directive Discussion Never done Mammogram Screening due on 08/11/2025 Annual PCP Team Chronic Disease Visit due on 09/16/2025 Colorectal Cancer Screening due on 05/05/2027 Diabetes Screening due on 07/10/2027 Lipid Screening due on 10/09/2027 DTaP,Tdap,Td Vaccine(5 - Td or Tdap) due on 03/12/2030 Bone Density Screening Completed Hepatitis C Screening Completed Pneumococcal Vaccine: 50+ Completed Cervical Cancer Screening Discontinued Data reviewed A/P ASSESSMENT/PLAN: 1. Bacterial sinusitis - ICD9: 473.9, 041.9, ICD10: J32.9, B96.89 (primary diagnosis) - Will begin treatment with as per antibiotic as written, see orders 2. Thoracic spine pain - ICD9: 724.1, ICD10: M54.6 Check - XR THORACIC GENERAL 3V AP/LAT/SWIMMERS 3. Rib pain on right side - ICD9: 786.50, ICD10: R07.81 Check - XR RIBS/CHEST 3V AP RIB/OBLS/CXR RIGHT 4. Trauma - ICD9: 959.9, ICD10: T14.90XA Check - XR RIBS/CHEST 3V AP RIB/OBLS/CXR RIGHT - XR THORACIC GENERAL 3V AP/LAT/SWIMMERS Requested Prescriptions Signed Prescriptions Disp Refills cefADROxil (DURICEF) 500 mg capsule 20 capsule 0 Sig: Take 1 capsule by mouth two times a day. F/u if not improving and will see in 2-3 weeks for medicare wellness appt. Ganga Nunez MD documented in this encounterOhiohealth [facility]01-10-[address] [facility]01-10-2025 History of Present illness Narrative* Hi Waddell Jr., MD - 09/12/2024 10:25 AM EST Images from the original note were not included. ESTABLISHED PATIENT VISIT CHIEF COMPLAINT: Follow Up HISTORY OF PRESENT ILLNESS: Kristina Bucrh is a 64 year old female, BMI 29.82 kg/m2 with a PMH significant for and per last office visit with Bri Parker CNP on 06/02/24: Huber on cpap (primary encounter diagnosis) Hypertension, essential Rls (restless legs syndrome) Chronic insomnia Frequent nocturnal awakening Kristina Burch is a 64 year old female with mild HUBER on CPAP, secondary dx of HTN, RLS, chronic insomnia, fibromyalgia, RA, OA, nighttime oxygen She is using PAP but not for full night. AHI is greater than 5. She might be waking in the night due to insufficient PAP pressure. Order to [employer] for supplies since she doesn't have correct filter, oxygen tubing, nasal pillows. PLAN: HUBER - Change Auto CPAP from 6-11 to 7-15 cmH2O. Pressure changed at visit today. Order to [employer] for supplies. Will check a download in about a month. - Remember to clean your mask and equipment regularly, as directed. - You should be eligible for new supplies approximately every 3-6 months, depending on your insurance coverage. Contact your Durable Medical Equipment (DME) company for new supplies as needed. INSOMNIA Continue trazodone 100 mg at HS RLS Continue clonazepam 0.5 mg at HS Try topical products at HS and in the night eg BioFreeze roller ball, TheraWorx for muscle cramps PAP data dowlaod shows used 90/90 days up to 09/10/24 with avg use of 9 hours and 37 minutes. 90% pressure ow 11.5 cmH2O. Appears peak pressure 12.4 cmH2O. Avg AHI is 0.7. Avg time in large leak per day is 16 minutes and 11 seconds. Currently also using O2 at night as Rx'd through pulmonary. I have no recent nocturnal oximetry study. States changes in PAP and meds have made a big difference and likes where she is at. Feels that RLSand leg cramps controlled with the Klonopin. Over the last 2 weeks avg about 8-9 hours of sleep. States might stay up until 11PM to watch tv butrare. Does wake at 6AM to drive . Sometimes might come home and get another hour of sleep. More sleep pt gets the fibro and RA pain better. No falling asleep driving. Typically falls asleep in about 30 minutes. Not waking up during the night or if does uses bathroomx1 and goes right back to sleep. PHQ 9 Data More data exists 07/14/2024 06/13/2024 05/29/2024 PHQ-9 All Questions Little interest or pleasure in doing things: 1 1 2 Feeling down, depressed, or hopeless: 1 1 2 Trouble falling or staying asleep, or sleeping too much 1 - 3 Feeling tired or having little energy 1 - 3 Poor appetite or overeating 0 - 2 Feeling bad about yourself - or that you are a failure or have let yourself or your family down 1 -2 Trouble concentrating on things, such as reading the newspaper or watching television 0 - 1 Moving or speaking so slowly that other people could have noticed. Or the opposite - being so fidgety or restless that you have been moving around a lot more than usual 0 - 3 Thoughts that you would be better off , or of hurting yourself in some way 0 - 1 PHQ-9 Score 5 - 19 Details MANDIE 7 Data 05/29/2024 10/02/2018 MANDIE-7 All Questions Feeling nervous, anxious, or on edge Nearly Everyday More than half the days Not being able to stop or control worrying Nearly Everyday Not at all Worrying too much about different things Nearly Everyday - Trouble relaxing Nearly Everyday - Being so restless that it is hard to sit still Several days - Becoming easily annoyed or irritable More than half the days - Feeling afraid, as if something awful might happen Several days - MANDIE-7 Score 16 - Details PROMIS-10 More data exists PROMIS Global Health - (T-Scores - the mean of general population = 50. Five points is a clinicallymeaningful difference.) Physical T-Score Mental T-Score 09/08/2024 - 28.4 05/29/2024 26.7 26.7 33.8 33.8 02/06/2024 26.7 33.8 Details Westfall Sleepiness Scale Scores More data may exist 05/29/2024 02/25/2024 03/29/2022 Westfall Sleepiness Scale Score 9 13 Abnormal Incomplete Details Insomnia Severity Index Scores More data exists 05/29/2024 02/25/2024 03/29/2022 Insomnia Severity Index Score 21 21 24 REVIEW OF SYSTEMS GENERAL:No weight loss, malaise or fevers. HEENT:Negative for frequent or significant headaches, No changes in hearing or vision, no nose bleeds or other nasal problems NECK:Negative for lumps, goiter, pain and significant neck swelling RESPIRATORY: Negative for cough, wheezing or shortness of breath (except when walking or climbing stairs) CARDIOVASCULAR: Negative for chest pain, or palpitations. GASTROINTESTINAL: Negative for abdominal discomfort, blood in stools or black stools or change in bowel habits GENITOURINARY: No history of dysuria, frequency or incontinence MUSCULOSKELETAL: Chronic myalgias and arthralgias. NEUROLOGIC:Negative for focal numbness or weakness, headaches and dizziness or syncope, vision changes, speech/languag changes - EXCEPT that as per HPI above. LAB/IMAGING: Those performed since patient's last visit have been reviewed. WBC (k/uL) Date Value 07/10/2024 6.33 RBC (m/uL) Date Value 07/10/2024 4.05 Hemoglobin (g/dL) Date Value 07/10/2024 13.1 Hematocrit (%) Date Value 07/10/2024 37.8 MCV (fL) Date Value 07/10/2024 93.3 MCH (pg) Date Value 07/10/2024 32.3 MCHC (g/dL) Date Value 07/10/2024 34.7 RDW-CV (%) Date Value 07/10/2024 13.4 Platelet Count (k/uL) Date Value 07/10/2024 169 MPV (fL) Date Value 07/10/2024 12.8 (H) Glucose (mg/dL) Date Value 07/10/2024 124 (H) BUN (mg/dL) Date Value 07/10/2024 21 Creatinine (mg/dL) Date Value 07/10/2024 0.83 Sodium (mmol/L) Date Value 07/10/2024 143 Potassium (mmol/L) Date Value 07/10/2024 4.2 Chloride (mmol/L) Date Value 07/10/2024 104 CO2 (mmol/L) Date Value 07/10/2024 22 Protein, Total (g/dL) Date Value 07/10/2024 6.7 Albumin (g/dL) Date Value 07/10/2024 4.4 Calcium, Total (mg/dL) Date Value 07/10/2024 9.5 Alkaline Phosphatase (U/L) Date Value 07/10/2024 152 (H) Bilirubin, Total (mg/dL) Date Value 07/10/2024 0.3 AST (U/L) Date Value 07/10/2024 25 ALT (U/L) Date Value 07/10/2024 25 SANIYA (no units) Date Value 02/07/2023 Negative SSA Antibody IgG (AI) Date Value 04/24/2023 <0.2 SSB Antibody (AI) Date Value 04/24/2023 <0.2 Rheumatoid Factor (IU/mL) Date Value 02/07/2023 29 (H) Hep C Antibody IA (no units) Date Value 07/26/2021 Negative MEDICATIONS: traZODone (DESYREL) 100 mg tablet Take 1 tablet by mouth daily at bedtime. trospium (SANCTURA) 20 mg tablet Take 1 tablet by mouth two times a day. clobetasol (TEMOVATE) 0.05 % ointment Apply 1 application to affected area two times a day. budesonide-formoterol (SYMBICORT) 160-4.5 mcg/actuation inhaler Inhale 2 Puffs as instructed two times a day. albuterol HFA (VENTOLIN HFA) 90 mcg/actuation inhaler Inhale 2 Puffs as instructed every 4 hours asneeded for wheezing/shortness of breath. CPAP/BIPAP/OTHER APAP 7-15 cmH2O DME [employer] clonazePAM (KLONOPIN) 0.5 mg tablet Take at bedtime for insomnia and RLS. Patient should start on June 25, 2024. celecoxib (CELEBREX) 200 mg capsule Take 1 capsule by mouth two times a day. FLUoxetine (PROZAC) 20 mg capsule Take 1 capsule by mouth once daily. folic acid 1 mg tablet Take 1 tablet by mouth once daily. methotrexate 2.5 mg tablet Take 6 tablets by mouth every Sunday. as directed. hydroCHLOROthiazide 25 mg tablet Take 1 tablet by mouth once daily. atorvastatin (LIPITOR) 40 mg tablet Take 1 tablet by mouth daily at bedtime. For cholesterol. azelastine (ASTELIN, ASTEPRO) 0.1% nasal spray Use 2 Sprays in each nostril twice daily as needed. metoprolol succinate ER (TOPROL XL) 50 mg 24 hr tablet Take 2 tablets by mouth once daily. (Patienttaking differently: Take 100 mg by mouth once daily. Prn depending on BP reading) CPAP Lifetime supplies for AutoPAP 6-11 cm H20 including mask, heated tubing, humidity, filters. Fax day download report to [phone] to assess residual ahi. vit C-Zn gluc-herbal no.325 (ELDERBERRY ZINC VIT C) 90-15 mg lozg Use 1 Lozenge as instructed twicedaily. calcium carbonate (CALTRATE 600 ORAL) Take 1 tablet by mouth once daily. multivitamin tablet Take 1 tablet by mouth once daily. BIOTIN ORAL Take 1 tablet by mouth once daily. Cholecalciferol, Vitamin D3, 2,000 unit cap Take 10,000 Units by mouth once daily. HISTORIES PAST MEDICAL HISTORY Diagnosis Date Abnormal mammogram Acute respiratory disease due to COVID-19 virus 06/16/[address] Scott Quarles Advance directive discussed with patient 04/06/2022 Discussed 04/06/2022 Arthritis of knee, left 01/31/2013 Arthritis of left hip 01/19/2016 Arthritis of left shoulder region 10/10/2023 Ascending aorta dilatation (HCC) 07/04/2017 04/19/16: 4.2 cm 06/11/17: 4.4 cm 06/24/18 4.4 cm Cervical high risk human papillomavirus (HPV) DNA test positive 05/27/2008 Chronic anxiety 06/01/2021 Chronic diarrhea 12/09/2018 Chronic hypoxemic respiratory failure (HCC) 09/06/2021 resolved Chronic pain syndrome 11/29/[address] Bustillos as of 11/27/2022 Chronic prescription benzodiazepine use 06/01/2021 DDD (degenerative disc disease), lumbar 07/24/[address] Jose Raul Machuca Dependence on nocturnal oxygen therapy 04/24/2023 Seeing Pulm Elevated hemoglobin A1c 04/24/2023 Essential tremor 04/06/2022 Ex-smoker 04/06/2022 Excessive or frequent menstruation Heavy periods Fatty liver Fatty liver 08/11/2024 US elastography 08/2024: F2-F3 Fibromyalgia 02/26/2014 Gastroesophageal reflux disease without esophagitis 04/24/2023 Hemorrhage of gastrointestinal tract, unspecified History of COVID-19 06/13/202105/2021 Hydrocephalus, adult (HCC) 02/09/2003 Hypertension, essential 01/22/2019 Lichen sclerosus Living will on file 04/06/2022 DPA: Dustin () Lung nodule 01/24/2022 Seeing pulm Migraines 07/26/2021 Used to see neuro and was getting Botox Mild dysplasia of cervix 2006 Mixed hyperlipidemia 01/20/2016 Nonrheumatic mitral valve disorder, unspecified 04/06/2016 Obesity, Class I, BMI 30-34.9 03/13/2024 Obstructive sleep apnea 10/13/2016 DME - [facility] Plantar fasciitis 2018 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 Scott Quarles Postcoital bleeding Primary insomnia 06/13/2021 Primary osteoarthritis of both knees 11/15/2022 Primary osteoarthritis of both shoulders 04/06/2022 [facility] Rectocele 04/19/2007 Renal cyst 07/13/2016 Rheumatoid arthritis (HCC) 04/24/2023 Seeing Rheum. Right knee pain RLS (restless legs syndrome) 02/25/2024 Situational mixed anxiety and depressive disorder 11/12/2017 Spinal stenosis, lumbar region, without neurogenic claudication 11/15/2022 Thoracic aortic aneurysm without rupture ([facility]) 2018 Urge incontinence 04/19/2007 Vitamin D deficiency 07/23/2012 Well adult exam 06/13/2021 Last done: 06/13/2021 FAMILY HISTORY Problem Relation Age of Onset Heart Mother skin cancer on nose Breast Cancer Mother Heart Father Hypertension Father Thyroid Sister No Known Problems Brother No Known Problems Maternal Grandmother No Known Problems Maternal Grandfather Heart Paternal Grandmother Emphysema Paternal Grandfather Thyroid Paternal Aunt SOCIAL HISTORY Social History Tobacco Use Smoking status: Former Current packs/day: 0.00 Average packs/day: 0.1 packs/day for 2.0 years (0.2 ttl pk-yrs) Types: Cigarettes Start date: 04/26/2008 Quit date: 04/26/2010 Years since quittin.3 Smokeless tobacco: Never Vaping Use Vaping status: Never Used Substance Use Topics Alcohol use: Yes Comment: 1-2 times a week at most: wine Drug use: Never PHYSICAL EXAMINATION BP 133/81 (BP Site: Right Arm, BP Position: Sitting) Pulse 73 Wt 90.3 kg (199 lb) LMP 08/04/2008 SpO2 100% BMI 29.82 kg/m GENERAL EXAM: General appearance: NAD, pleasant. HEENT: NC/AT, nasal congestion absent, no oral lesions, membranes moist. Lungs: CTA bilaterally. CV: RRR nl S1, S2 Extr: No cyanosis, clubbing or edema. Skin: Cool to touch. NEUROLOGICAL EXAM: General: Awake, alert, oriented x3 (person,place,time), fluent, no dysarthria; comprehension, naming, repetition intact. CN: PERRL, EOMI and without nystagmus, VFF to confrontation, facial sensation and strength are normal and symmetric, hearing is intact to finger rub bilaterally, palate and tongue movements are intact and symmetric. SCM and trapezius strength normal. Motor: Normal tone, bulk and strength (5/5) bilaterally (throughout extremities x4). Coordination: FNF, MELINA, HTS intact. No tremors. Sensation: LT intact throughout. No evidence of neglect. Gait: Stable with normal stride and arm swing. Assessment and Plan: ASSESSMENT/PLAN: 1. Insomnia, unspecified type - ICD9: 780.52, ICD10: G47.00 (primary diagnosis) Overall doing much better - unclear as to what has made the difference, although patient feels it was the increase in PAP setting. That said, PAP data download essentially unchanged and not suggesting that pt is using higher pressures. No matter, will make no changes to med regimen at this time with pt understanding also the superintendent terminal risks of some of her meds including Klonopin. Refills providedfor both Klonopin 0.5mg QHS and Trazodone 100mg QHS. Encouraged appropriate sleep hygiene. 2. RLS (restless legs syndrome) - ICD9: 333.94, ICD10: G25.81 Stable on Klonopin as above. 3. Long-term current use of benzodiazepine - ICD9: V58.69, ICD10: Z79.899 - TOXICOLOGY SCREEN, ROUTINE URINE - BENZO CONFIRM, URINE 4. HUBER on CPAP - ICD9: 327.23, ICD10: G47.33 AHI normalized. Compliance confirmed on PAP data download. Does have mask leak but pt choosing not to change masks at this time stating it is comfortable and that she is tolerating it. Reminded to clean and replace PAP equipment regularly. Advised pt not to drive or operate heavy machinery if sleepy. 5. Hypoxia - ICD9: 799.02, ICD10: R09.02 Pt continues to use O2 with PAP. Uncertain if necessary. D/w pt performing a nocturnal oximetry study at home with PAP but without O2. Pt declines at this time and wants to d/w Dr. Quarles at next visit. Will update Dr. Quarles. Hi Waddell MD PDMP website checked and validated. All prescriptions have been APPROPRIATELY filled. No suspiciousactivity was identified. 09/12/2024 by Hi Waddell MD Medical Decision Making: Problems: Moderate: 2+ stable chronic illnesses Data: Unique test result(s) reviewed: 1 Unique test(s) ordered: 1 Risk: Moderate: Drug management Medical Decision Making Level: 4 - Moderate * Amanda Quarles LPN - 09/12/2024 10:14 AM EST 09/08/2024 PROMIS Global Health Physical Health Summary Physical health: Everyday physical activity, ability: A little Fatigue: Moderate Pain level: 8 General health: Fair Social activities/roles, ability: Fair Physical Health T-Score Physical Health Percentile No data recorded PROMIS Global Health Mental Health Summary Quality of life: Poor Mental health (mood,thinking): Fair Social satisfaction: Poor Emotional problems (anxious,depressed): Often Mental Health T-Score 28.4 (Poor) Mental Health Percentile 2 Percentiles provide an indication of how a patient's score ranks in relation to the [place] general population. > 31st percentile is within normal limits or better *< 31st percentile is at least SD worse than population, which may be clinically relevant < 16th percentile is at least 1 SD worse than population and warrants attention 09/05/2024 Sleep Apnea Probability Snores loudly: Yes Tired, fatigued or sleepy in daytime: Yes Stops breathing or choking/gasping during sleep: Yes High blood pressure: Yes Sleep Apnea Probability Score: 41 (Sleep study not recommended) documented in this encounterOhio[facility]10[facility] [facility] Telephone encounter Note* Telephone Encounter - Claribel Mason LPN - 08/29/2024 7:23 AM EST Prescription Refill Information The patient has been identified by name and date of : Yes Caregiver verified no other encounters exist for this prescription request: Yes Caregiver confirmed with patient/requestor that no other refills are due, in the near future, with this provider at this time: Yes The last office visit in the department: 07/15/24 Does the patient have a future office visit with this provider/department: Yes Requested Prescriptions Pending Prescriptions Disp Refills traZODone (DESYREL) 100 mg tablet 180 tablet 1 Sig: Take 1 tablet by mouth daily at bedtime. Claribel Mason LPN August 29, 2024 7:24 AM [facility]12-27-2024 Miscellaneous Notes* Telephone Encounter - Claribel Mason LPN - 08/29/2024 7:23 AM EST Prescription Refill Information The patient has been identified by name and date of : Yes Caregiver verified no other encounters exist for this prescription request: Yes Caregiver confirmed with patient/requestor that no other refills are due, in the near future, with this provider at this time: Yes The last office visit in the department: 07/15/24 Does the patient have a future office visit with this provider/department: Yes Requested Prescriptions Pending Prescriptions Disp Refills traZODone (DESYREL) 100 mg tablet 180 tablet 1 Sig: Take 1 tablet by mouth daily at bedtime. Claribel Mason LPN August 29, 2024 7:24 AM documented in this encounterOhiohealth [facility]12-26-2024 Telephone encounter Note * Telephone Encounter - Shilpi Borrero APRN.ALONZO PERRY - 08/28/2024 9:[address] Scan results. Kidneys and urinary tract: Right: 5.8 cm cyst. There are no renal calculi or solid/enhancing masses. The opacified calices, renal pelvis and ureter are normal without dilation, filling defect, or stricture. Left: There are no renal calculi or solid/enhancing masses. The opacified calices, renal pelvis and ureter are normal without dilation, filling defect, or stricture. Bladder: No filling defect, calculus, focal or diffuse wall thickening. The bladder is somewhat suboptimally visualized due to streak artifact from bilateral hip prostheses I recommend a Cystoscopy - scope of the bladder. The renal cyst is benign and we can recheck in 1 year with a US to see if it is increasing in size. My nursing team should call you to schedule the Cystoscopy. A Cystoscopy is a procedure that allows your doctor to examine the lining of your bladder and the tube that carries urine out of your body (urethra). A hollow tube (cystoscope) equipped with a lens is inserted into your urethra and slowly advanced into your bladder. This is a very quick outpatient procedure completed at one of our Urology offices. Shilpi Borrero DNP, CNP Department of Urology [facility]12-26-[facility]24 Miscellaneous Notes* Telephone Encounter - Shilpi Borrero APRN.ALONZO PERRY - 08/28/2024 9:[address] Scan results. Kidneys and urinary tract: Right: 5.8 cm cyst. There are no renal calculi or solid/enhancing masses. The opacified calices, renal pelvis and ureter are normal without dilation, filling defect, or stricture. Left: There are no renal calculi or solid/enhancing masses. The opacified calices, renal pelvis and ureter are normal without dilation, filling defect, or stricture. Bladder: No filling defect, calculus, focal or diffuse wall thickening. The bladder is somewhat suboptimally visualized due to streak artifact from bilateral hip prostheses I recommend a Cystoscopy - scope of the bladder. The renal cyst is benign and we can recheck in 1 year with a US to see if it is increasing in size. My nursing team should call you to schedule the Cystoscopy. A Cystoscopy is a procedure that allows your doctor to examine the lining of your bladder and the tube that carries urine out of your body (urethra). A hollow tube (cystoscope) equipped with a lens is inserted into your urethra and slowly advanced into your bladder. This is a very quick outpatient procedure completed at one of our Urology offices. Shilpi Borrero DNP, VICKY Department of Urology [facility] documented in this encounterOhiohealth [facility]12-24-2024 History of Present illness Narrative* Katja Moura RT(R) - 08/26/2024 10:20 AM EST Radiology Service Progress Note DATE OF SERVICE: August 26, 2024 TIME: 10:39 AM PATIENT IDENTITY VERIFICATION COMPLETED USING TWO (2) STANDARD IDENTIFIERS: Name and Date of confirmed by patient verbally. FALL SCREENING: Has the patient had 2 falls in the last year or 1 fall with injury or currently using an Ambulatory Assistive Device (Walker, Cane, Wheelchair, Crutches, etc.)? No PATIENT GENDER DATA: Female. status: : No status: NO. PATIENT RELEVANT IMPLANT DATA REVIEWED: Yes PATIENT PRESENTS WITH AN IMPLANTABLE OR ATTACHED CLOTH TESTER QUALITY: No ALLERGIES: Reviewed and unchanged CONTRAST ALLERGY: NO. EXAM: CT -CONTRAST INDUCED NEPHROPATHY RISK FACTORS: Patient age > 60 years CREATININE: Creatinine Date Value Ref Range Status 07/10/2024 0.83 0.58 - 0.96 mg/dL Final 05/30/2024 0.83 0.58 - 0.96 mg/dL Final 03/25/2024 0.78 0.58 - 0.96 mg/dL Final Estimated Glomerular Filtration Rate Date Value Ref Range Status 07/10/2024 78 >=60 mL/min/1.73m Final Comment: Estimated Glomerular Filtration Rate (eGFR) is calculated using the 2020 CKD-EPI creatinine equation. This equation utilizes serum creatinine, sex, and age as parameters. The creatinine assay has traceable calibration to isotope dilution- mass spectrometry. Refer to KDIGO guidelines for clinical interpretation. In patients with unstable renal function, e.g. those with acute kidney injury, the eGFRmay not accurately reflect actual GFR. eGFR- Date Value Ref Range Status 07/26/2021 >60 Final P.O.C.T. RESULTS: POC done: Yes, See Lab Tab August 26, 2024 TREATMENT: N/A PERIPHERAL IV DATA: Ambulatory: A peripheral IV was started in the Left hand with a Angio cath: 22 gauge. RADIOLOGY DEPARTMENT: CT; Exam(s) Completed: Urogram SIGNATURE: RT Marlys(R) PATIENT NAME: Kristina Burch DATE: August 26, 2024 TIME: 10:39 AM documented in this encounterOhiohealth [facility]12-24-[address] [facility]12-11-2024 Telephone encounter Note* Telephone Encounter - Claribel Mason LPN - 08/13/2024 12:39 PM EST Routed message back to Claudai. Claribel Mason LPN [facility]12-11-2024 Miscellaneous Notes* Telephone Encounter - Claribel Mason LPN - 08/13/2024 12:39 PM EST Routed message back to Claudia. Claribel Mason LPN * Telephone Encounter - Edwina Khoury PA-C - 08/13/2024 11:42 AM EST done * Telephone Encounter - Claudia Whitlock RT(R) - 08/13/2024 9:38 AM EST Will you enter an order that is Diagnostic Mammogram, current one has w tomogram, per charges and coding? Thank you! documented in this encounterOhiohealth [facility]12-11-2024 Telephone encounter Note * Telephone Encounter - Edwina Khoury PA-C - 08/13/2024 11:42 AM EST done [facility]12-11-2024 Telephone encounter Note* Telephone Encounter - Claudia Whitlock RT(R) - 08/13/2024 9:38 AM EST Will you enter an order that is Diagnostic Mammogram, current one has w tomogram, per charges and coding? Thank you! [facility]12-10-2024 Telephone encounter Note* Telephone Encounter - Claribel Mason LPN - 08/12/2024 12:01 PM EST Pt notified of same and was given phone number to schedule.additional imaging and pt was also assisted in transfer to schedule. Claribel Mason LPN [facility]12-10-2024 Miscellaneous Notes* Telephone Encounter - Claribel Mason LPN - 08/12/2024 12:01 PM EST Pt notified of same and was given phone number to schedule.additional imaging and pt was also assisted in transfer to schedule. Claribel Mason LPN * Telephone Encounter - Edwina Khoury PA-C - 08/12/2024 11:16 AM EST We need additional breast imaging. Her mammogram shows asymmetry in both breasts. Edwina Khoury PA-C documented in this encounterOhiohealth [facility]12-10-2024 Telephone encounter Note * Telephone Encounter - Edwina Khoury PA-C - 08/12/2024 11:16 AM EST We need additional breast imaging. Her mammogram shows asymmetry in both breasts. Edwina Khoury PA-C [facility]12-09-2024 NoteHNO ID: [id number] Author: WILBUR PAEZ MA Service: ? Author Type: Surveillance Specialist Type: Progress Notes Filed: 08/11/2024 16:00 Note Text: Scan on 08/08/2024 9:50 AM by ProviderKarolina PA-C: Ultrasound Wilbur Paez [facility]12-09-2024 History of Present illness Narrative* Wilbur Paez MA - 08/11/2024 4:00 PM EST Scan on 08/08/2024 9:50 AM by ProviderKarolina PA-C: Ultrasound Wilbur Paez MA documented in this encounterOhiohealth [facility]12-09-2024 History of Present illness Narrative* Dora Treviño Mammo Tech - 08/11/2024 12:30 PM EST Radiology Service Progress Note PATIENT NAME: Kristina Burch DATE OF SERVICE: August 11, 2024 TIME: 12:31 PM PATIENT IDENTITY VERIFICATION COMPLETED USING TWO (2) IDENTIFIERS: Name and Date of confirmedby patient verbally. FALL SCREENING: Has the patient had 2 falls in the last year or 1 fall with injury or currently using an Ambulatory Assistive Device (Walker, Cane, Wheelchair, Crutches, etc.)? No PATIENT GENDER DATA: Female. status: : No status: NO. PATIENT RELEVANT IMPLANT DATA REVIEWED: Not Applicable PATIENT PRESENTS WITH AN IMPLANTABLE OR ATTACHED CLOTH TESTER QUALITY: No RADIOLOGY DEPARTMENT: Mammography PERIPHERAL IV DATA: Not applicable SIGNED BY: Mariya Zhao August 11, 2024 12:31 PM documented in this encounterOhiohealth [facility]12-09-[address] [facility]12-09-2024 Instructions* Patient Instructions* Shilpi Borrero APRN.ALONZO PERRY - 08/11/2024 10:25 AM EST Trial of Trospium for OAB symptoms. Follow up in 8 weeks with Shilpi Borrero APRN.CNP, DNP Kegal Exercises daily Schedule CT scan for blood in urine. Urine test are pending. Will send result via . Avoid bladder irritants - coffee, tea, cola drinks, chocolate, alcohol, artificial sweeteners and cigarettes For OAB: Recommend behavioral therapies (e.g., bladder training, bladder control strategies, pelvic floor muscle training, fluid management) Anti-muscarinic medications: (Oxybutynin (Ditropan XL) Tolterodine (Detrol, Detrol LA), Solifenacin(Vesicare, Vesicare LS), Trospium, and Fesoterodine (Toviaz): The choice of oral anti-muscarinics as second-line therapy reflects the fact that these medicationsreduce symptoms but also can commonly have side effects such as dry mouth, constipation, dry or itchy eyes, blurred vision, dyspepsia, UTI, urinary retention and impaired cognitive function (trouble with memory and confusion). For dry mouth, try sucking hard candy or chewing gum to produce more saliva. Other less common sideeffects include heartburn, blurry vision, rapid heartbeat, flushed skin and trouble urinating. ? 3-adrenoceptor agonists: Mirabegron and Gemtesa are options. These are typically not covered by most commercial insurance plans. They work on the muscles of the bladder to increase the amount of urine your bladder can hold and prevent them from causing incontinence Common side effects of these medications are High Blood Pressure, Headache, UTIs, Nasopharyngitis, bladder pain, and urinary retention. Sacral neuromodulation (SNS) as third-line treatment in a carefully selected patient population characterized by severe refractory OAB symptoms or patients who are not candidates for second-line therapy and are willing to undergo a surgical procedure Healthy Habits: Recommend regular physical activity, nutrition and healthy eating habits. Consume a variety of foods every day focusing on fruits, vegetables and lean meats). Eat foods low in fat, saturated fat and cholesterol. Eat a limited amount of salt and sodium. Drink adequate amounts of water and limit sugary drinks. Exercise portion control in meal selection. Establish a mindset of a wellness approach to health. Thank you for allowing me to provide your care today. I look forward to seeing you again and maintaining your health. Shilpi Borrero APRN.ALONZO PERRY documented in this encounterOhiohealth [facility]12-09-2024 History of Present illness Narrative* Shilpi Borrero APRN.ALONZO PERRY - 08/11/2024 10:00 AM EST [facility] Referring provider: Ganga Nunez MD New patient to Urology 08/11/[address] Ganga Nunez [address] [facility] [id number] for an opinion regarding urinary urgency and my final recommendations will be communicated back to the requesting physician by way of shared Medical record or letter via US mail. Chief Complaint Patient presents with: Consult Urinary Urgency HPI Kristina Burch is a 64 year old female who presents here today for a urinary urgency. This is an established patient of Dr. Ganga Nunez MD. This is a new patient to me. Past Med hx: Insomnia, Chronic pain, Migraines, RLS, Fibromyalgia, HLD, HUBER - CPAP, HTN, GERD, Renal cyst Reports: several day history of dysuria, burning. + urgency, and frequency. Blood in the urine a few months ago. No fever or chills. Denies suprapubic pain or flank pain. Denies frequent UTI's. Leakage of urine. Uses 5 pads per day. Incontinent with sneezing or coughing. No current meds. Smoking - 1/4 ppd for 5 years. Quit 20 years ago. Gross Hematuria: Yes Recent CT of Ab and pelvis showed a 5.9 cm exophytic right renal upper to mid pole cyst. Symmetric nephrograms with no evidence of hydronephrosis. Culture 02/22/2022 >=100,000 CFU/ml Proteus mirabilis ! 07/24/2022 <10,000 CFU/ml Mixed microbiota ! 01/03/2024 50,000-<100,000 CFU/ml Normal urogenital tyrone 05/13/2024 50,000-<100,000 CFU/ml Normal urogenital tyrone 07/08/2024 10,000 -<50,000 CFU/ml Mixed microbiota ! 07/11/2024 <10,000 CFU/ml Normal urogenital tyrone OAB Questionnaire: Do you leak with cough, sneeze or exercise? yes Do you leak with urgency such as getting to the restroom on time or with running water? yes How many times do you urinate during the day? 10 How many times do you get up to urinate at night? 2 How many pads do you wear during the day? 5 Do you wear pads at night? 1 Do you have fecal urgency? no Do you have fecal incontinence? no Do you have pain with intercourse? NA Do you have urinary leakage with intercourse? NA What medications have you tried to help your leakage? None What surgeries have you had for the above symptoms? TL and Hysterectomy Past medical history, appointments, medications, allergies reviewed 08/11/2024 Previous Medical History PAST MEDICAL HISTORY Diagnosis Date Abnormal mammogram Acute respiratory disease due to COVID-19 virus 06/16/[address] Scott Quarles Advance directive discussed with patient 04/06/2022 Discussed 04/06/2022 Arthritis of knee, left 01/31/2013 Arthritis of left hip 01/19/2016 Arthritis of left shoulder region 10/10/2023 Ascending aorta dilatation (HCC) 07/04/2017 04/19/16: 4.2 cm 06/11/17: 4.4 cm 06/24/18 4.4 cm Cervical high risk human papillomavirus (HPV) DNA test positive 05/27/2008 Chronic anxiety 06/01/2021 Chronic diarrhea 12/09/2018 Chronic hypoxemic respiratory failure (HCC) 09/06/2021 resolved Chronic pain syndrome 11/29/[address] Bustillos as of 11/27/2022 Chronic prescription benzodiazepine use 06/01/2021 DDD (degenerative disc disease), lumbar 07/24/[address] Jose Raul Machuca Dependence on nocturnal oxygen therapy 04/24/2023 Seeing Pulm Elevated hemoglobin A1c 04/24/2023 Essential tremor 04/06/2022 Ex-smoker 04/06/2022 Excessive or frequent menstruation Heavy periods Fatty liver Fibromyalgia 02/26/2014 Gastroesophageal reflux disease without esophagitis 04/24/2023 Hemorrhage of gastrointestinal tract, unspecified History of COVID-19 06/13/202105/2021 Hydrocephalus, adult (HCC) 02/09/2003 Hypertension, essential 01/22/2019 Lichen sclerosus Living will on file 04/06/2022 DPA: Dustin () Lung nodule 01/24/2022 Seeing pulm Migraines 07/26/2021 Used to see neuro and was getting Botox Mild dysplasia of cervix 2006 Mixed hyperlipidemia 01/20/2016 Nonrheumatic mitral valve disorder, unspecified 04/06/2016 Obesity, Class I, BMI 30-34.9 03/13/2024 Obstructive sleep apnea 10/13/2016 DME - [facility] Plantar fasciitis 2018 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 Scott Quarles Postcoital bleeding Primary insomnia 06/13/2021 Primary osteoarthritis of both knees 11/15/2022 Primary osteoarthritis of both shoulders 04/06/2022 Seeing [facility] Rectocele 04/19/2007 Renal cyst 07/13/2016 Rheumatoid arthritis (HCC) 04/24/2023 Seeing Rheum. Right knee pain RLS (restless legs syndrome) 02/25/2024 Situational mixed anxiety and depressive disorder 11/12/2017 Spinal stenosis, lumbar region, without neurogenic claudication 11/15/2022 Thoracic aortic aneurysm without rupture ([facility]) 2018 Urge incontinence 04/19/2007 Vitamin D deficiency [...] 1991 VAGINAL HYSTERECTOMY UTERUS 250 GM/< 09/04/2008 09/04/08 Vaginal hysterectomy for menorrhagia, irreg menses, post-coital bleeding, mild dysplasia andUSI with Dr. Tai assisting and then he did a TVT. Family History FAMILY HISTORY Problem Relation Age of Onset Heart Mother skin cancer on nose Breast Cancer Mother Heart Father Hypertension Father Thyroid Sister No Known Problems Brother No Known Problems Maternal Grandmother No Known Problems Maternal Grandfather Heart Paternal Grandmother Emphysema Paternal Grandfather Thyroid Paternal Aunt Patient Allergies ALLERGIES Allergen [...] on File Prior to Visit Medication Sig clobetasol (TEMOVATE) 0.05 % ointment Apply 1 application to affected area two times a day. budesonide-formoterol (SYMBICORT) 160-4.5 mcg/actuation inhaler Inhale 2 Puffs as instructed two times a day. albuterol HFA (VENTOLIN HFA) 90 mcg/actuation inhaler Inhale 2 Puffs as instructed every 4 hours asneeded for wheezing/shortness of breath. CPAP/BIPAP/OTHER APAP 7-15 cmH2O DME [employer] clonazePAM (KLONOPIN) 0.5 mg tablet Take at bedtime for insomnia and RLS. Patient should start on June 25, 2024. celecoxib (CELEBREX) 200 mg capsule Take 1 capsule by mouth two times a day. FLUoxetine (PROZAC) 20 mg capsule Take 1 capsule by mouth once daily. folic acid 1 mg tablet Take 1 tablet by mouth once daily. methotrexate 2.5 mg tablet Take 6 tablets by mouth every Sunday. as directed. hydroCHLOROthiazide 25 mg tablet Take 1 tablet by mouth once daily. (Patient taking differently: Take 25 mg by mouth once daily. prn) atorvastatin (LIPITOR) 40 mg tablet Take 1 tablet by mouth daily at bedtime. For cholesterol. traZODone (DESYREL) 100 mg tablet Take 1 tablet by mouth daily at bedtime. azelastine (ASTELIN, ASTEPRO) 0.1% nasal spray Use 2 Sprays in each nostril twice daily as needed. metoprolol succinate ER (TOPROL XL) 50 mg 24 hr tablet Take 2 tablets by mouth once daily. (Patienttaking differently: Take 100 mg by mouth once daily. Prn depending on BP reading) CPAP Lifetime supplies for AutoPAP 6-11 cm H20 including mask, heated tubing, humidity, filters. Fax 30 day download report to [phone] to assess residual ahi. vit C-Zn gluc-herbal no.325 (ELDERBERRY ZINC VIT C) 90-15 mg lozg Use 1 Lozenge as instructed twicedaily. calcium carbonate (CALTRATE 600 ORAL) Take 1 tablet by mouth once daily. multivitamin tablet Take 1 tablet by mouth once daily. BIOTIN ORAL Take 1 tablet by mouth once daily. Cholecalciferol, Vitamin D3, 2,000 unit cap Take 10,000 Units by mouth once daily. No current facility-administered medications on file prior to visit. Social History Social History Tobacco Use Smoking status: Former Current packs/day: 0.00 Average packs/day: 0.1 packs/day for 2.0 years (0.2 ttl pk-yrs) Types: Cigarettes Start date: 04/26/2008 Quit date: 04/26/2010 Years since quittin.3 Smokeless tobacco: Never Vaping Use Vaping status: Never Used Substance Use Topics Alcohol use: Yes Comment: 1-2 times a week at most: wine Drug use: Never LABS: Latest Ref Rng 08/11/2024 GLUCOSE UA (POCT) Negative mg/dL Negative BILIRUBIN UA (POCT) Negative Negative KETONE UA (POCT) Negative mg/dL Negative SPECIFIC GRAVITY UA (POCT) 1.005 - 1.030 >=1.030 HEMOGLOBIN/BLOOD UA (POCT) Negative Small ! PH UA (POCT) 4.5 - 8.0 5.5 PROTEIN UA (POCT) Negative mg/dL Negative UROBILINOGEN UA (POCT) Normal E.U./dL 0.2 NITRITE UA (POCT) Negative Negative LEUKOCYTES UA (POCT) Negative Trace ! COLOR UA (POCT) Dark yellow CLARITY UA (POCT) Slightly Cloudy IMAGING: PVR = 0ml Review of Symptoms GENERAL: No weight loss, malaise fatigue or fevers. GI: No nausea, vomiting, or diarrhea. No abdominal pain : + for burning, dysuria, urgency or frequency. No blood in urine MUSCULOSKELETAL: Negative for generalized joint pain or bodyaches SKIN: Negative for rash EXAM: BP 124/74 Pulse 74 Temp 36.6 C (97.9 F) (Temporal) Resp 14 Ht 174 cm (5' 8.5) Wt 90.3 kg(199 lb) LMP 08/04/2008 SpO2 97% BMI 29.82 kg/m General Appearance: Well appearing, alert, in no acute distress, well-hydrated, well nourished. Skin: Skin color, texture, turgor normal, no suspicious rashes or lesions. Head: Normocephalic, no masses, lesions, or abnormalities. Extremities: No deformities, edema, skin discoloration Psych: Attitude - cooperative, easily engaged in conversation Appearance - normal hygiene and grooming appropriate Affect - euthymic, normal mood Mental status: Alert, attentive. Gait/Stance: Posture is normal. Gait is steady Health Maintenance List Covid-19 Vaccine(1) Never done Shingrix Vaccine(1 of 2) Never done RSV Vaccine(1 - Risk 60-74 years 1-dose series) Never done BP Controlled (<130/80) due on 06/13/2022 Advance Directive Discussion Never done Influenza Vaccine(1) due on 05/04/2024 Mammogram Screening due on 06/08/2024 Annual PCP Team Chronic Disease Visit due on 07/15/2025 Colorectal Cancer Screening due on 05/05/2027 Diabetes Screening due on 07/10/2027 Lipid Screening due on 10/09/2027 DTaP,Tdap,Td Vaccine(5 - Td or Tdap) due on 03/12/2030 Bone Density Screening Completed Hepatitis C Screening Completed Pneumococcal Vaccine: 65+ Completed Cervical Cancer Screening Discontinued Data reviewed Last 5 Encounter BP Readings: Date: BP: 07/28/2024 140/80 07/24/2024 128/70 07/17/2024 126/70 07/15/2024 140/92 07/08/2024 122/66 BMI Readings from Last 5 Encounters: 08/11/24 : 29.82 kg/m 07/28/24 : 29.91 kg/m 07/24/24 : 30.67 kg/m 07/17/24 : 31.29 kg/m 07/15/24 : 31.29 kg/m Last 5 Encounter Wt Readings: Date: Wt: 07/28/2024 88.9 kg (196 lb) 07/24/2024 91.2 kg (201 lb) 07/17/2024 93 kg (205 lb) 07/15/2024 93 kg (205 lb) 07/08/2024 93.8 kg (206 lb 12.7 oz) Medication and allergy list reviewed, reconciled and updated 08/11/2024 ASSESSMENT/PLAN: 1. Urgency of urination - ICD9: 788.63, ICD10: R39.15 (primary diagnosis) 64 y/o female with a several month hx of worsening urinary urgency, and did have gross blood seen several times. No current blood in urine. Using pads for urinary leakage. Reviewed 2 years of UC withonly one that was +. No current OAB meds. UA = + blood and LE PVR = 0ml Plan: Trial of Trospium Cytology CTU UA micro with UC Pending CTU results will schedule Cystoscopy. - POST VOID RESIDUAL - UA DIP, URINE (POC) - URINALYSIS, WITH MICROSCOPIC - 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 - TROSPIUM 20 MG TABLET - URINALYSIS WITH MICROSCOPIC, REFLEX CULTURE 2. Gross hematuria - ICD9: 599.71, ICD10: R31.0 Plan as above - POST VOID RESIDUAL - UA DIP, URINE (POC) - URINALYSIS, WITH MICROSCOPIC - 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 - CT UROGRAM WO/W IVCON - IV CONTRAST (RADIOLOGY PROCEDURE) - NOT ON MAR - SODIUM CHLORIDE 0.9 % INTRAVENOUS SOLUTION - TROSPIUM 20 MG TABLET - URINALYSIS WITH MICROSCOPIC, REFLEX CULTURE 3. Urge incontinence - ICD9: 788.31, ICD10: N39.41 Plan as above - TROSPIUM 20 MG TABLET - URINALYSIS WITH MICROSCOPIC, REFLEX CULTURE 4. Renal cyst - ICD9: 753.10, ICD10: N28.1 Stable - Cont to monitor. Further image with CT Urogram Shilpi Borrero DNP, ELEVATOR CONSTRU[employer] Department of Urology [facility] documented in this encounterOhiohealth [facility]12-09-[address] [facility]2024 Telephone encounter Note* Telephone Encounter - Reginaldo Burnett MD - 08/10/2024 2:14 PM EST Noted Reginaldo Burnett MD [facility]12-08-2024 Miscellaneous Notes* Telephone Encounter - Reginaldo Burnett MD - 08/10/2024 2:14 PM EST Noted Reginaldo Burnett MD * Telephone Encounter - Tati Penny MA - 08/08/2024 10:42 AM EST See scanned document for care consideration from [employer] documented in this encounterOhiohealth [facility]12-06-2024 Telephone encounter Note * Telephone Encounter - Tati Penny MA - 08/08/2024 10:42 AM EST See scanned document for care consideration from [facility]. [facility]12-02-2024 Telephone encounter Note* Telephone Encounter - Herber Reed PA-C - 08/04/2024 12:50 PM EST Pt should have 90 day supply at pharmacy - refill good through November 2024. [facility] Work Phone: 1(115) 527-870712-02-2024 Miscellaneous Notes* Telephone Encounter - Herber Reed PA-C - 08/04/2024 12:50 PM EST Pt should have 90 day supply at pharmacy - refill good through November 2024. * Telephone Encounter - Tati Penny MA - 08/04/2024 9:02 AM EST Pharmacy sent a [employer] message requesting the following refill. Requested Prescriptions Pending Prescriptions Disp Refills methotrexate 2.5 mg tablet 72 tablet 1 Sig: Take 6 tablets by mouth every Sunday. as directed. Patient last appointment: 07/08/2024 Herber Next Appointment: 10/06/2024 Patient Phone numbers: [phone] (home) Request is for script(s) to be escript to pharmacy. Tati Penny MA documented in this encounterOhiohealth Pick[facility]12-02-2024 Telephone encounter Note * Telephone Encounter - Tati Penny MA - 08/04/2024 9:02 AM EST Pharmacy sent a [employer] message requesting the following refill. Requested Prescriptions Pending Prescriptions Disp Refills methotrexate 2.5 mg tablet 72 tablet 1 Sig: Take 6 tablets by mouth every Sunday. as directed. Patient last appointment: 07/08/2024 Herber Next Appointment: 10/06/2024 Patient Phone numbers: [phone] (home) Request is for script(s) to be escript to pharmacy. Tati Penny MA [facility]11-27-2024 Telephone encounter Note* Telephone Encounter - Marcy Bocanegra RN - 07/30/2024 11:57 AM EST Pt notified and voiced understanding. Marcy Bocanegra RN [facility]11-27-2024 Miscellaneous Notes* Telephone Encounter - Marcy Bocanegra RN - 07/30/2024 11:57 AM EST Pt notified and voiced understanding. Marcy Bocanegra RN * Telephone Encounter - Kimberly Grajeda APRN.CNP - 07/30/2024 11:52 AM EST Yes, can use a neutral soap. Nothing super fragranced or harsh. Pat to wash biopsy site. Keep cleanand dry. Kimberly Grajeda APRN.VICKY * Telephone Encounter - Marcy Bocanegra RN - 07/30/2024 10:42 AM EST Pt notified. [employer] message sent with additional educational material. Pt asking if she can begin using soap? She states the itching is improved somewhat since her appointment and spotting since OV. Please advise. Marcy Bocanegra RN * Telephone Encounter - Kimberly Grajeda APRN.CNP - 07/30/2024 10:26 AM EST Please call patient - The biopsy is benign, but suggests a condition called lichen sclerosus. This is an autoimmune condition that can cause chronic itching. The Clobetasol ointment is the treatment for this. Recommend follow up in 1-2 months to evaluate how she's going and review diagnosis or sooner PRN Kimberly Grajeda APRN.CNP documented in this encounterOhiohealth Pick[facility]11-27-2024 Telephone encounter Note * Telephone Encounter - Kimberly Grajeda APRN.CNP - 07/30/2024 11:52 AM EST Yes, can use a neutral soap. Nothing super fragranced or harsh. Pat to wash biopsy site. Keep cleanand dry. Kimberly Grajeda APRN.CNP [facility]11-27-2024 Telephone encounter Note* Telephone Encounter - Marcy Bocanegra RN - 07/30/2024 10:42 AM EST Pt notified. [employer] message sent with additional educational material. Pt asking if she can begin using soap? She states the itching is improved somewhat since her appointment and spotting since OV. Please advise. Marcy Bocanegra RN [facility]11-27-2024 Telephone encounter Note* Telephone Encounter - Kimberly Grajeda APRN.CNP - 07/30/2024 10:26 AM EST Please call patient - The biopsy is benign, but suggests a condition called lichen sclerosus. This is an autoimmune condition that can cause chronic itching. The Clobetasol ointment is the treatment for this. Recommend follow up in 1-2 months to evaluate how she's going and review diagnosis or sooner PRN Kimberly Grajeda APRN.VICKY [facility]11-25-[address] [facility]11-25-2024 History of Present illness Narrative* Kimberly Grajeda APRN.CNP - 07/28/2024 11:36 AM EST [employer] Sketch Maker offered: Patient declines. Kristina Burch is a 64 year old female who presents today for a vulvar biopsy. Indication: persistent pruritis. UNIVERSAL PROTOCOL / SAFETY CHECKLIST Procedure to be Performed: Vulvar Biopsy Sign In: A Moment of CARE was completed. Personnel directly involved with the procedure wore the appropriate PPE (Personal Protective Equipment). Patient/Surrogate Stated/Verified: PATIENT VERIFIED(optional for EMERGENT procedures): Patient name, Date of , Relevant allergies, and The intended procedure Time Out Communication: Intended patient and procedure match the source documents. Consent documented and matches the intended procedure. Sign Out: SIGN OUT (optional for EMERGENT procedures): All specimen containers correctly labeled. All instruments, equipment, possible retained foreign bodies accounted for. Post-procedure follow-up management communicated and Plan of Care Visit completed when applicable. Kimberly Grajeda APRN.CNP PROCEDURE NOTE: GROSS LESIONS: No BIOPSY: Tissue inferior and left of introitus was cleansed with betadine and anesthetized with 2 mL1% lidocaine with 1:100,000 epi. 2 mm [place] punch used to biopsy region. HEMOSTASIS: Obtained with silver nitrate and pressure Procedure Summary: Patient tolerated procedure well and colposcopy was adequate. ASSESSMENT: 1. Vulvar irritation - ICD9: 624.8, ICD10: N90.89 - SURGICAL PATHOLOGY PLAN: Specimens labeled and sent to Pathology. Will notify patient of results in 1-2 weeks. Post-procedure instructions reviewed and written material given to the patient. Kimberly Grajeda APRN.CNP documented in this encounterOhiohealth Pick[facility]11-22-2024 NoteHNO ID: [id number] Author: CLARIBEL MASON LPN Service: ? Author Type: LICENSED NURSE Type: Progress Notes Filed: 07/25/2024 08:54 Note Text: Scan on 07/24/2024 4:27 PM by Provider, External, PA-C: HematologyUniversity [facility]als [facility]11-22-2024 History of Present illness Narrative* Claribel Mason LPN - 07/25/2024 8:54 AM EST Scan on 07/24/2024 4:27 PM by Provider, Karolina, ILIR: Hematology documented in this encounterOhiohealth [facility]11-21-[address] [facility]11-21-2024 History of Present illness Narrative* Kimberly Grajeda APRN.E[employer]ATOR [employer]STRU[employer] - 07/24/2024 3:00 PM EST Photoengraving Sketch Maker offered: Patient declines. Kristina Burch is a 64 year old female who presents for a medication follow up. HPI: Kristina presents for a medication follow up. Clobetasol was prescribed for erythema that extended down to anus. Cultures were negative. Patient reports itching has improved with Clobetasol use - using twice per day. OB History T0 L3 SAB0 IAB0 Ectopic0 Multiple0 Live Births0 Press Tender Long Goods History LMP: 08/04/2008, Hysterectomy Age at Menarche: Age at First : Age at Menopause: Press Tender Long Goods History Comments: Sexual Activity: Yes; Male; hysterectomy Contraception: Tubal Ligation PAST MEDICAL HISTORY Diagnosis Date Abnormal mammogram Acute respiratory disease due to COVID-19 virus 06/16/[address] Scott Quarles Advance directive discussed with patient 04/06/2022 Discussed 04/06/2022 Arthritis of knee, left 01/31/2013 Arthritis of left hip 01/19/2016 Arthritis of left shoulder region 10/10/2023 Ascending aorta dilatation (HCC) 07/04/2017 04/19/16: 4.2 cm 06/11/17: 4.4 cm 06/24/18 4.4 cm Cervical high risk human papillomavirus (HPV) DNA test positive 05/27/2008 Chronic anxiety 06/01/2021 Chronic diarrhea 12/09/2018 Chronic hypoxemic respiratory failure (HCC) 09/06/2021 resolved Chronic pain syndrome 11/29/[address] Bustillos as of 11/27/2022 Chronic prescription benzodiazepine use 06/01/2021 DDD (degenerative disc disease), lumbar 07/24/[address] Jose Raul Machuca Dependence on nocturnal oxygen therapy 04/24/2023 Seeing Pulm Elevated hemoglobin A1c 04/24/2023 Essential tremor 04/06/2022 Ex-smoker 04/06/2022 Excessive or frequent menstruation Heavy periods Fatty liver Fibromyalgia 02/26/2014 Gastroesophageal reflux disease without esophagitis 04/24/2023 Hemorrhage of gastrointestinal tract, unspecified History of COVID-19 06/13/202105/2021 Hydrocephalus, adult (HCC) 02/09/2003 Hypertension, essential 01/22/2019 Living will on file 04/06/2022 DPA: Dustin () Lung nodule 01/24/2022 Seeing pulm Migraines 07/26/2021 Used to see neuro and was getting Botox Mild dysplasia of cervix 2006 Mixed hyperlipidemia 01/20/2016 Nonrheumatic mitral valve disorder, unspecified 04/06/2016 Obesity, Class I, BMI 30-34.9 03/13/2024 Obstructive sleep apnea 10/13/2016 DME - [facility] Plantar fasciitis 2018 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 Scott Quarles Postcoital bleeding Primary insomnia 06/13/2021 Primary osteoarthritis of both knees 11/15/2022 Primary osteoarthritis of both shoulders 04/06/2022 Seeing anahi ortho Rectocele 04/19/2007 Renal cyst 07/13/2016 Rheumatoid arthritis ([facility]) 04/24/2023 Seeing Rheum. Right knee pain RLS (restless legs syndrome) 02/25/2024 Situational mixed anxiety and depressive disorder 11/12/2017 Spinal stenosis, lumbar region, without neurogenic claudication 11/15/2022 Thoracic aortic aneurysm without rupture ([facility]) 2018 Urge incontinence 04/19/2007 Vitamin D deficiency [...] UTERUS 250 GM/< 09/04/2008 Hysterectomy, vaginal/TVT FAMILY HISTORY Problem Relation Age of Onset Heart Mother skin cancer on nose Breast Cancer Mother Heart Father Hypertension Father Heart Maternal Grandmother Thyroid Sister Thyroid Paternal Aunt Social History Tobacco Use Smoking status: Former Current packs/day: 0.00 Average packs/day: 0.1 packs/day for 2.0 years (0.2 ttl pk-yrs) Types: Cigarettes Start date: 04/26/2008 Quit date: 04/26/2010 Years since quittin.2 Smokeless tobacco: Never Vaping Use Vaping status: Never Used Substance Use Topics Alcohol use: Yes Comment: 1-2 times a week at most: wine Drug use: No Current Outpatient Medications Medication Sig clobetasol (TEMOVATE) 0.05 % ointment Apply 1 application to affected area two times a day. budesonide-formoterol (SYMBICORT) 160-4.5 mcg/actuation inhaler Inhale 2 Puffs as instructed two times a day. albuterol HFA (VENTOLIN HFA) 90 mcg/actuation inhaler Inhale 2 Puffs as instructed every 4 hours asneeded for wheezing/shortness of breath. CPAP/BIPAP/OTHER APAP 7-15 cmH2O DME [employer] clonazePAM (KLONOPIN) 0.5 mg tablet Take at bedtime for insomnia and RLS. Patient should start on June 25, 2024. celecoxib (CELEBREX) 200 mg capsule Take 1 capsule by mouth two times a day. FLUoxetine (PROZAC) 20 mg capsule Take 1 capsule by mouth once daily. folic acid 1 mg tablet Take 1 tablet by mouth once daily. methotrexate 2.5 mg tablet Take 6 tablets by mouth every Sunday. as directed. hydroCHLOROthiazide 25 mg tablet Take 1 tablet by mouth once daily. (Patient taking differently: Take 25 mg by mouth once daily. prn) atorvastatin (LIPITOR) 40 mg tablet Take 1 tablet by mouth daily at bedtime. For cholesterol. traZODone (DESYREL) 100 mg tablet Take 1 tablet by mouth daily at bedtime. azelastine (ASTELIN, ASTEPRO) 0.1% nasal spray Use 2 Sprays in each nostril twice daily as needed. metoprolol succinate ER (TOPROL XL) 50 mg 24 hr tablet Take 2 tablets by mouth once daily. (Patienttaking differently: Take 100 mg by mouth once daily. Prn depending on BP reading) CPAP Lifetime supplies for AutoPAP 6-11 cm H20 including mask, heated tubing, humidity, filters. Fax 30 day download report to [phone] to assess residual ahi. vit C-Zn gluc-herbal no.325 (ELDERBERRY ZINC VIT C) 90-15 mg lozg Use 1 Lozenge as instructed twicedaily. calcium carbonate (CALTRATE 600 ORAL) Take 1 tablet by mouth once daily. multivitamin tablet Take 1 tablet by mouth once daily. BIOTIN ORAL Take 1 tablet by mouth once daily. Cholecalciferol, Vitamin D3, 2,000 unit cap Take 10,000 Units by mouth once daily. No current facility-administered medications for this visit. 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 As applicable, any other physician, advance practice provider, medical student, or other health professional student that will be observing or involved in the sensitive examination for educational or training purposes was discussed with the Patient or Authorized Ux Information Architect. The Patient or Authorized Ux Information Architect has agreed to proceed with the sensitive examination. (Sensitive examination includes inspection and/or palpation of the breasts, pelvis, prostate and anorectal regions). EXAM: BP 128/70 Wt 201 lb (91.2kg) LMP 08/04/2008 GENERAL: pleasant, female in no apparent distress HEENT: Normocephalic, atraumatic, mucus membranes moist, and no lesions CHEST: Normal inspiratory effort PELVIC: atrophic, + mild erythema extending from top of vulva to bilateral anus, scar tissue noted to inferior right labia minora and adjacent to introitus, normal Bartholin's glands, urethra, Grottoes's glands, no vulvar lesions, normal appearing perineal body and perianal region NEURO: alert and oriented x3,exam grossly non-focal EXTREMITIES: normal ASSESSMENT AND PLAN: 1. Vulvar irritation - ICD9: 624.8, ICD10: N90.89 - Continue Clobetasol cream, BID - Reviewed not intended for retirement use - Plan for vulvar biopsy - BIOPSY OF VULVA Kimberly Grajeda APRN.CNP Medical Decision Making: Problems: Low: Acute, uncomplicated illness or injury Data: Unique test(s) ordered: 1 Risk: Low: Low risk from testing/treatment Moderate: Drug management Medical Decision Making Level: 3 - Low documented in this encounterOhio[facility]11-20-2024 Telephone encounter Note * Telephone Encounter - Suzanne Spain RN - 07/23/2024 12:13 PM EST HPV added and in process. Suzanne Spain RN [facility]11-20-2024 Miscellaneous Notes* Telephone Encounter - Suzanne Spain RN - 07/23/2024 12:13 PM EST HPV added and in process. Suzanne Spain RN * Telephone Encounter - Kimberly Grajeda APRN.CNP - 07/23/2024 11:45 AM EST Corrected to vaginal. Kimberly Grajeda APRN.VICKY * Telephone Encounter - Suzanne Spain RN - 07/23/2024 11:22 AM EST Is source of HPV cervix or vaginal? Its currently ordered as cervix. Suzanne Spain RN * Telephone Encounter - Kimberly Grajeda APRN.CNP - 07/23/2024 11:10 AM EST Please call lab to add on HPV Kimberly Grajeda APRN.VICKY documented in this encounterOhiohealth [facility]11-20-2024 Telephone encounter Note * Telephone Encounter - Kimberly Grajeda APRN.CNP - 07/23/2024 11:45 AM EST Corrected to vaginal. Kimberly Grajeda APRN.VICKY [facility]11-20-2024 Telephone encounter Note* Telephone Encounter - Suzanne Spain RN - 07/23/2024 11:22 AM EST Is source of HPV cervix or vaginal? Its currently ordered as cervix. Suzanne Spain RN [facility]11-20-2024 Telephone encounter Note* Telephone Encounter - Kimberly Grajeda APRN.CNP - 07/23/2024 11:10 AM EST Please call lab to add on HPV Kimberly Grajeda APRN.ELEVATOR CONSTRUCTOR [employer] [facility]11-14-[address] [facility]11-14-2024 History of Present illness Narrative* Kimberly Grajeda APRN.CNP - 07/17/2024 9:10 AM EST Photoengraving Sketch Maker offered: Patient declines. Kristina Burch is a 64 year old female who presents for problem visit of vaginal odor and postcoital bleeding. HPI: Kristina presents for vaginal odor that has been present for a few months. She is concerned it may be a UTI. Has had urine cultures done: 07/11 - negative for infection and 07/08. She is having dark clumpy vaginal discharge. She experiences burning with urination and feels pelvic pressure. She reports itching to her groin. Postcoital spotting has been present for 1 year. Some pain with intercourse. Has had hysterectomy for ? Abnormal cells of cervix, + HPV? No new sexual partners. No changes in detergents or soaps. OB History T0 L3 SAB0 IAB0 Ectopic0 Multiple0 Live Births0 Press Tender Long Goods History LMP: 08/04/2008, Hysterectomy Age at Menarche: Age at First : Age at Menopause: Press Tender Long Goods History Comments: Sexual Activity: Yes; Male; hysterectomy Contraception: Tubal Ligation PAST MEDICAL HISTORY Diagnosis Date Abnormal mammogram Acute respiratory disease due to COVID-19 virus 06/16/[address] Scott Quarles Advance directive discussed with patient 04/06/2022 Discussed 04/06/2022 Arthritis of knee, left 01/31/2013 Arthritis of left hip 01/19/2016 Arthritis of left shoulder region 10/10/2023 Ascending aorta dilatation (HCC) 07/04/2017 04/19/16: 4.2 cm 06/11/17: 4.4 cm 06/24/18 4.4 cm Cervical high risk human papillomavirus (HPV) DNA test positive 05/27/2008 Chronic anxiety 06/01/2021 Chronic diarrhea 12/09/2018 Chronic hypoxemic respiratory failure (HCC) 09/06/2021 resolved Chronic pain syndrome 11/29/[address] Bustillos as of 11/27/2022 Chronic prescription benzodiazepine use 06/01/2021 DDD (degenerative disc disease), lumbar 07/24/[address] Jose Raul Machuca Dependence on nocturnal oxygen therapy 04/24/2023 Seeing Pulm Elevated hemoglobin A1c 04/24/2023 Essential tremor 04/06/2022 Ex-smoker 04/06/2022 Excessive or frequent menstruation Heavy periods Fatty liver Fibromyalgia 02/26/2014 Gastroesophageal reflux disease without esophagitis 04/24/2023 Hemorrhage of gastrointestinal tract, unspecified History of COVID-19 06/13/202105/2021 Hydrocephalus, adult ([facility]) 02/09/2003 Hypertension, essential 01/22/2019 Living will on file 04/06/2022 DPA: Dustin () Lung nodule 01/24/2022 Seeing pulm Migraines 07/26/2021 Used to see neuro and was getting Botox Mild dysplasia of cervix 2006 Mixed hyperlipidemia 01/20/2016 Nonrheumatic mitral valve disorder, unspecified 04/06/2016 Obesity, Class I, BMI 30-34.9 03/13/2024 Obstructive sleep apnea 10/13/2016 DME - [facility] Plantar fasciitis 2018 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 Scott Quarles Postcoital bleeding Primary insomnia 06/13/2021 Primary osteoarthritis of both knees 11/15/2022 Primary osteoarthritis of both shoulders 04/06/2022 Seeing anahi machuca Rectocele 04/19/2007 Renal cyst 07/13/2016 Rheumatoid arthritis (HCC) 04/24/2023 Seeing Rheum. Right knee pain RLS (restless legs syndrome) 02/25/2024 Situational mixed anxiety and depressive disorder 11/12/2017 Spinal stenosis, lumbar region, without neurogenic claudication 11/15/2022 Thoracic aortic aneurysm without rupture ([facility]) 2018 Urge incontinence 04/19/2007 Vitamin D deficiency 07/23/2012 Well adult exam 06/13/2021 Last done: 06/13/2021 PAST SURGICAL HISTORY Procedure Laterality Date APPENDECTOMY 1987 COLONOSCOPY 08/19/2013 COLONOSCOPY FLX DX W/COLLJ SPEC WHEN PFRMD 09/19/2019 Colonoscopy COLONOSCOPY SCREENING 05/05/2022 repeat in 5 years COLONOSCOPY W/BIOPSY SINGLE/MULTIPLE 03/15/2009 minimal colitis-repeat in -2018 COLPOSCOPY CERVIX UPPER/ADJACENT VAGINA Colposcopy DILATION & [...] UTERUS 250 GM/< 09/04/2008 Hysterectomy, vaginal/TVT FAMILY HISTORY Problem Relation Age of Onset Heart Mother skin cancer on nose Breast Cancer Mother Heart Father Hypertension Father Heart Maternal Grandmother Thyroid Sister Thyroid Paternal Aunt Social History Tobacco Use Smoking status: Former Current packs/day: 0.00 Average packs/day: 0.1 packs/day for 2.0 years (0.2 ttl pk-yrs) Types: Cigarettes Start date: 04/26/2008 Quit date: 04/26/2010 Years since quittin.2 Smokeless tobacco: Never Vaping Use Vaping status: Never Used Substance Use Topics Alcohol use: Yes Comment: 1-2 times a week at most: wine Drug use: No Current Outpatient Medications Medication Sig budesonide-formoterol (SYMBICORT) 160-4.5 mcg/actuation inhaler Inhale 2 Puffs as instructed two times a day. albuterol HFA (VENTOLIN HFA) 90 mcg/actuation inhaler Inhale 2 Puffs as instructed every 4 hours asneeded for wheezing/shortness of breath. CPAP/BIPAP/OTHER APAP 7-15 cmH2O DME [employer] clonazePAM (KLONOPIN) 0.5 mg tablet Take at bedtime for insomnia and RLS. Patient should start on June 25, 2024. celecoxib (CELEBREX) 200 mg capsule Take 1 capsule by mouth two times a day. FLUoxetine (PROZAC) 20 mg capsule Take 1 capsule by mouth once daily. folic acid 1 mg tablet Take 1 tablet by mouth once daily. methotrexate 2.5 mg tablet Take 6 tablets by mouth every Sunday. as directed. hydroCHLOROthiazide 25 mg tablet Take 1 tablet by mouth once daily. (Patient taking differently: Take 25 mg by mouth once daily. prn) atorvastatin (LIPITOR) 40 mg tablet Take 1 tablet by mouth daily at bedtime. For cholesterol. traZODone (DESYREL) 100 mg tablet Take 1 tablet by mouth daily at bedtime. azelastine (ASTELIN, ASTEPRO) 0.1% nasal spray Use 2 Sprays in each nostril twice daily as needed. metoprolol succinate ER (TOPROL XL) 50 mg 24 hr tablet Take 2 tablets by mouth once daily. (Patienttaking differently: Take 100 mg by mouth once daily. Prn depending on BP reading) CPAP Lifetime supplies for AutoPAP 6-11 cm H20 including mask, heated tubing, humidity, filters. Fax 30 day download report to [phone] to assess residual ahi. vit C-Zn gluc-herbal no.325 (ELDERBERRY ZINC VIT C) 90-15 mg lozg Use 1 Lozenge as instructed twicedaily. calcium carbonate (CALTRATE 600 ORAL) Take 1 tablet by mouth once daily. multivitamin tablet Take 1 tablet by mouth once daily. BIOTIN ORAL Take 1 tablet by mouth once daily. Cholecalciferol, Vitamin D3, 2,000 unit cap Take 10,000 Units by mouth once daily. No current facility-administered medications for this visit. 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 As applicable, any other physician, advance practice provider, medical student, or other health professional student that will be observing or involved in the sensitive examination for educational or training purposes was discussed with the Patient or Authorized Ux Information Architect. The Patient or Authorized Ux Information Architect has agreed to proceed with the sensitive examination. (Sensitive examination includes inspection and/or palpation of the breasts, pelvis, prostate and anorectal regions). EXAM: BP 126/70 Wt 205 lb (93.0kg) LMP 08/04/2008 GENERAL: pleasant, female in no apparent distress HEENT: Normocephalic, atraumatic, mucus membranes moist, and no lesions CHEST: Normal inspiratory effort PELVIC: + erythema extending from superior right labia majora down to anus, erythema extending frominferior left labia majora down to anus, normal Bartholin's glands, urethra, Grottoes's glands, no vulvar lesions, cervix surgically absent, good vaginal support, physiologic discharge present, normal appearing perineal body and perianal region BIMANUAL: no adnexal masses, non-tender, and uterus surgically absent NEURO: alert and oriented x3,exam grossly non-focal EXTREMITIES: normal ASSESSMENT AND PLAN: 1. Vaginal burning - ICD9: 625.8, ICD10: N94.89 (primary diagnosis) 2. Vaginal odor - ICD9: 625.8, ICD10: N89.8 - Cultures obtained - Suspect possible LS - Start Clobetasol, follow up in 1 week - CLOBETASOL 0.05 % TOPICAL OINTMENT 3. PCB (post coital bleeding) - ICD9: 626.7, ICD10: N93.0 - BACTERIAL VAGINOSIS NAAT - LONA/TRICHOMONAS NAAT Pap done for history abnormal pap - uncertain on reason for past hysterectomy. TONYA 1 2006. Kimberly Grajeda APRN.CNP Medical Decision Making: Problems: Moderate: New problem with uncertain prognosis Data: Unique test(s) ordered: 3+ Risk: Low: Low risk from testing/treatment Moderate: Drug management Medical Decision Making Level: 4 - Moderate documented in this encounter[facility] Telephone encounter Note * Telephone Encounter - Sara Mcgarry MA - 07/17/2024 8:30 AM EST Pt notified. She is scheduled to see urology. Sara Mcgarry MA [facility]11-14-2024 Miscellaneous Notes* Telephone Encounter - Sara Mcgarry MA - 07/17/2024 8:30 AM EST Pt notified. She is scheduled to see urology. Sara Mcgarry MA * Telephone Encounter - Ganga Nunez MD - 07/16/2024 8:17 PM EST Let patient know CT of abdomen and pelvis was ok. This pain maybe related to the vaginal odor and vaginal bleeding post intercourse she has been having. US of kidnies and bladder ok. Order placed to see urology for w/u and most likely scope of the bladder. documented in this encounterOhio[facility]11-13-2024 Telephone encounter Note * Telephone Encounter - Ganga Nunez MD - 07/16/2024 8:17 PM EST Let patient know CT of abdomen and pelvis was ok. This pain maybe related to the vaginal odor and vaginal bleeding post intercourse she has been having. US of kidnies and bladder ok. Order placed to see urology for w/u and most likely scope of the bladder. [facility]11-13-[facility] History of Present illness Narrative* Katja Moura, RT(R) - 07/16/2024 2:20 PM EST Radiology Service Progress Note DATE OF SERVICE: July 16, 2024 TIME: 3:18 PM PATIENT IDENTITY VERIFICATION COMPLETED USING TWO (2) STANDARD IDENTIFIERS: Name and Date of confirmed by patient verbally. FALL SCREENING: Has the patient had 2 falls in the last year or 1 fall with injury or currently using an Ambulatory Assistive Device (Walker, Cane, Wheelchair, Crutches, etc.)? No PATIENT GENDER DATA: Female. status: : No status: NO. PATIENT RELEVANT IMPLANT DATA REVIEWED: Yes PATIENT PRESENTS WITH AN IMPLANTABLE OR ATTACHED CLOTH TESTER QUALITY: No ALLERGIES: Reviewed and unchanged CONTRAST ALLERGY: NO. EXAM: CT -CONTRAST INDUCED NEPHROPATHY RISK FACTORS: Patient age > 60 years CREATININE: Creatinine Date Value Ref Range Status 07/10/2024 0.83 0.58 - 0.96 mg/dL Final 05/30/2024 0.83 0.58 - 0.96 mg/dL Final 03/25/2024 0.78 0.58 - 0.96 mg/dL Final Estimated Glomerular Filtration Rate Date Value Ref Range Status 07/10/2024 78 >=60 mL/min/1.73m Final Comment: Estimated Glomerular Filtration Rate (eGFR) is calculated using the 2020 CKD-EPI creatinine equation. This equation utilizes serum creatinine, sex, and age as parameters. The creatinine assay has traceable calibration to isotope dilution- mass spectrometry. Refer to KDIGO guidelines for clinical interpretation. In patients with unstable renal function, e.g. those with acute kidney injury, the eGFRmay not accurately reflect actual GFR. eGFR- Date Value Ref Range Status 07/26/2021 >60 Final P.O.C.T. RESULTS: POC done: Yes, See Lab Tab July 16, 2024 TREATMENT: N/A PERIPHERAL IV DATA: Ambulatory: A peripheral IV was started in the Left hand with a Angio cath: 22 gauge. RADIOLOGY DEPARTMENT: CT; Exam(s) Completed: Abdomen/Pelvis SIGNATURE: RT Marlys(R) PATIENT NAME: Kristina Burch DATE: July 16, 2024 TIME: 3:18 PM documented in this encounterOhiohealth [facility]11-13[facility] [facility] [facility] [facility] History of Present illness Narrative* Ganga Nunez MD - 07/15/2024 1:27 PM EST Chief Complaint Patient presents with: Follow Up HPI Kristina Burch is a 64 year old female who presents here today for possible right lower hernia . On Sunday was bent over and developed a sharp pain in the RLQ of her abdomen when she went to standup. Pain was sever enough (10/10) she needed her husbands help to stand up. Once standing up straight the pain eased up only slightly to about a 8/10. The pain was constant for most of the day and worse if she tried to rotated left or right. The pain was less yesterday at about a 7/10 and was more colicky and would increase with rotation and bending. Today the pain is a 6-7 and worse if the area is touched. No fevers or chills. Patient is urinating and not as frequent. Still has the dysuria (seeing urology soon and recent urine culture was normal). Has some blood in the liner of her underwear. Having normal BM's since being seen in the ER on 05/29/2024 for GI bleed. Patient has tried to get in contact with Dr. Rojo office and has played phone tag with them. She has not had any further blood in the stool since her ER visit. Has had some black stools, not aware of an iron smell. No nausea or vomiting. No diarrhea that is new for her. Patient has noted a vaginal odor for over a month and vaginal bleeding after intercourse. Past medical history, appointments, medications, allergies reviewed. Previous Medical History PAST MEDICAL HISTORY Diagnosis Date Abnormal mammogram Acute respiratory disease due to COVID-19 virus 06/16/[address] Scott Quarles Advance directive discussed with patient 04/06/2022 Discussed 04/06/2022 Arthritis of knee, left 01/31/2013 Arthritis of left hip 01/19/2016 Arthritis of left shoulder region 10/10/2023 Ascending aorta dilatation (HCC) 07/04/201716: 4.2 cm 06/11/17: 4.4 cm 06/24/18 4.4 cm Cervical high risk human papillomavirus (HPV) DNA test positive 05/27/2008 Chronic anxiety 06/01/2021 Chronic diarrhea 12/09/2018 Chronic hypoxemic respiratory failure (HCC) 09/06/2021 resolved Chronic pain syndrome 11/29/[address] Bustillos as of 11/27/2022 Chronic prescription benzodiazepine use 06/01/2021 DDD (degenerative disc disease), lumbar 07/24/[address] Jose Raul Machuca Dependence on nocturnal oxygen therapy 04/24/2023 Seeing Pulm Elevated hemoglobin A1c 04/24/2023 Essential tremor 04/06/2022 Ex-smoker 04/06/2022 Excessive or frequent menstruation Heavy periods Fatty liver Fibromyalgia 02/26/2014 Gastroesophageal reflux disease without esophagitis 04/24/2023 Hemorrhage of gastrointestinal tract, unspecified History of COVID-19 06/13/202105/2021 Hydrocephalus, adult (HCC) 02/09/2003 Hypertension, essential 01/22/2019 Living will on file 04/06/2022 DPA: Dustin () Lung nodule 01/24/2022 Seeing pulm Migraines 07/26/2021 Used to see neuro and was getting Botox Mild dysplasia of cervix 2006 Mixed hyperlipidemia 01/20/2016 Nonrheumatic mitral valve disorder, unspecified 04/06/2016 Obstructive sleep apnea 10/13/2016 DME - [facility] Plantar fasciitis 2018 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 Scott Quarles Postcoital bleeding Primary insomnia 06/13/2021 Primary osteoarthritis of both knees 11/15/2022 Primary osteoarthritis of both shoulders 04/06/2022 Seeing [facility] Rectocele 04/19/2007 Renal cyst 07/13/2016 Rheumatoid arthritis (HCC) 04/24/2023 Seeing Rheum. Right knee pain Situational mixed anxiety and depressive disorder 11/12/2017 Spinal stenosis, lumbar region, without neurogenic claudication 11/15/2022 Thoracic aortic aneurysm without rupture ([facility]) 2018 Urge incontinence 04/19/2007 Vitamin D deficiency 07/23/2012 Well adult exam 06/13/2021 Last done: 06/13/2021 Previous Surgical History PAST SURGICAL HISTORY Procedure Laterality Date APPENDECTOMY 1987 COLONOSCOPY 08/19/2013 COLONOSCOPY FLX DX W/COLLJ SPEC WHEN PFRMD 09/19/2019 Colonoscopy COLONOSCOPY SCREENING 05/05/2022 repeat in 5 years COLONOSCOPY W/BIOPSY SINGLE/MULTIPLE 03/15/2009 minimal colitis-repeat in -2018 COLPOSCOPY CERVIX UPPER/ADJACENT VAGINA Colposcopy DILATION & [...] on File Prior to Visit Medication Sig budesonide-formoterol (SYMBICORT) 160-4.5 mcg/actuation inhaler Inhale 2 Puffs as instructed two times a day. albuterol HFA (VENTOLIN HFA) 90 mcg/actuation inhaler Inhale 2 Puffs as instructed every 4 hours asneeded for wheezing/shortness of breath. CPAP/BIPAP/OTHER APAP 7-15 cmH2O DME [employer] clonazePAM (KLONOPIN) 0.5 mg tablet Take at bedtime for insomnia and RLS. Patient should start on June 25, 2024. celecoxib (CELEBREX) 200 mg capsule Take 1 capsule by mouth two times a day. FLUoxetine (PROZAC) 20 mg capsule Take 1 capsule by mouth once daily. folic acid 1 mg tablet Take 1 tablet by mouth once daily. methotrexate 2.5 mg tablet Take 6 tablets by mouth every Sunday. as directed. hydroCHLOROthiazide 25 mg tablet Take 1 tablet by mouth once daily. (Patient taking differently: Take 25 mg by mouth once daily. prn) atorvastatin (LIPITOR) 40 mg tablet Take 1 tablet by mouth daily at bedtime. For cholesterol. traZODone (DESYREL) 100 mg tablet Take 1 tablet by mouth daily at bedtime. azelastine (ASTELIN, ASTEPRO) 0.1% nasal spray Use 2 Sprays in each nostril twice daily as needed. metoprolol succinate ER (TOPROL XL) 50 mg 24 hr tablet Take 2 tablets by mouth once daily. (Patienttaking differently: Take 100 mg by mouth once daily. Prn depending on BP reading) CPAP Lifetime supplies for AutoPAP 6-11 cm H20 including mask, heated tubing, humidity, filters. Fax 30 day download report to [phone] to assess residual ahi. vit C-Zn gluc-herbal no.325 (ELDERBERRY ZINC VIT C) 90-15 mg lozg Use 1 Lozenge as instructed twicedaily. calcium carbonate (CALTRATE 600 ORAL) Take 1 tablet by mouth once daily. multivitamin tablet Take 1 tablet by mouth once daily. BIOTIN ORAL Take 1 tablet by mouth once daily. Cholecalciferol, Vitamin D3, 2,000 unit cap Take 10,000 Units by mouth once daily. No current facility-administered medications on file prior to visit. Social History Social History Tobacco Use Smoking status: Former Current packs/day: 0.00 Average packs/day: 0.1 packs/day for 2.0 years (0.2 ttl pk-yrs) Types: Cigarettes Start date: 04/26/2008 Quit date: 04/26/2010 Years since quittin.2 Smokeless tobacco: Never Vaping Use Vaping status: Never Used Substance Use Topics Alcohol use: Yes Comment: 1-2 times a week at most: wine Drug use: No Review of Symptoms REVIEW OF SYSTEMS See HPI EXAM: BP 140/92 Pulse 64 Resp 16 Wt 93 kg (205 lb) LMP 08/04/2008 BMI 31.29 kg/m Last 15 Encounter Wt Readings: Date: Wt: 07/15/2024 93 kg (205 lb) 07/08/2024 93.8 kg (206 lb 12.7 oz) 07/08/2024 92.5 kg (204 lb) 06/17/2024 93.2 kg (205 lb 6.4 oz) 06/10/2024 95.7 kg (211 lb) 06/02/2024 95.7 kg (211 lb) 05/30/2024 95.7 kg (211 lb) 05/26/2024 95.9 kg (211 lb 6.4 oz) 05/13/2024 96.3 kg (212 lb 4.9 oz) 03/25/2024 96.2 kg (212 lb) 03/13/2024 95.3 kg (210 lb) 02/25/2024 94.4 kg (208 lb 3.2 oz) 02/14/2024 95.7 kg (211 lb) 01/03/2024 94.8 kg (208 lb 15.9 oz) 12/10/2023 94.2 kg (207 lb 10.8 oz) General Appearance: Well appearing, alert, in no acute distress, well-hydrated, well nourished.. Abdomen: Abdomen is soft and non-distended. Bowel sounds are normal. Patient has generalized tenderness throughout with increased tenderness in the right and left lower quadrants. No masses palpated.Patient has mild rebound discomfort (not a sharp pain). Health Maintenance List Covid-19 Vaccine(1) Never done Shingrix Vaccine(1 of 2) Never done RSV Vaccine(1 - Risk 60-74 years 1-dose series) Never done BP Controlled (<130/80) due on 06/13/2022 Advance Directive Discussion Never done Influenza Vaccine(1) due on 05/04/2024 Mammogram Screening due on 06/08/2024 Annual PCP Team Chronic Disease Visit due on 05/30/2025 Colorectal Cancer Screening due on 05/05/2027 Diabetes Screening due on 07/10/2027 Lipid Screening due on 10/09/2027 DTaP,Tdap,Td Vaccine(5 - Td or Tdap) due on 03/12/2030 Bone Density Screening Completed Hepatitis C Screening Completed Pneumococcal Vaccine: 65+ Completed Cervical Cancer Screening Discontinued Data reviewed A/P ASSESSMENT/PLAN: 1. RLQ abdominal pain - ICD9: 789.03, ICD10: R10.31 (primary diagnosis) Check STAT - CT ABD/PEL W IVCON - IV CONTRAST (RADIOLOGY PROCEDURE) - ENTERIC CONTRAST (RADIOLOGY PROCEDURE) 2. LLQ pain - ICD9: 789.04, ICD10: R10.32 Check STAT - CT ABD/PEL W IVCON - IV CONTRAST (RADIOLOGY PROCEDURE) - ENTERIC CONTRAST (RADIOLOGY PROCEDURE) 3. Vaginal odor - ICD9: 625.8, ICD10: N89.8 - CONSULT TO GYNECOLOGY 4. PCB (post coital bleeding) - ICD9: 626.7, ICD10: N93.0 - CONSULT TO GYNECOLOGY Check STAT - CT ABD/PEL W IVCON - IV CONTRAST (RADIOLOGY PROCEDURE) - ENTERIC CONTRAST (RADIOLOGY PROCEDURE) 5. Infection in abdomen (HCC) - ICD9: 567.9, ICD10: K65.9 Check STAT. - CT ABD/PEL W IVCON - IV CONTRAST (RADIOLOGY PROCEDURE) - ENTERIC CONTRAST (RADIOLOGY PROCEDURE) Ganga Nunez MD documented in this encounterOhio[facility]11-[facility] Telephone encounter Note * Telephone Encounter - Claribel Mason LPN - 07/14/2024 8:58 AM EST Pt notified of same. Pt was assisted in transfer to schedule US. Pt also advises that she was doingsome lifting yesterday and thinks she may have a hernia. Wanting to see if pcp has an appointment tomorrow. Scheduled pt with pcp 07/15/24. Claribel Mason LPN [facility]11-11-2024 Miscellaneous Notes* Telephone Encounter - Claribel Mason LPN - 07/14/2024 8:58 AM EST Pt notified of same. Pt was assisted in transfer to schedule US. Pt also advises that she was doingsome lifting yesterday and thinks she may have a hernia. Wanting to see if pcp has an appointment tomorrow. Scheduled pt with pcp 07/15/24. Claribel Mason LPN * Telephone Encounter - Ganga Nunez MD - 07/13/2024 2:33 PM EST Let patient know her urine culture shows no infection. With her having the urgency and blood needs US of bladder and kidnies. Orders placed. documented in this encounterOhio[facility]11-10-2024 Telephone encounter Note * Telephone Encounter - Ganga Nunez MD - 07/13/2024 2:33 PM EST Let patient know her urine culture shows no infection. With her having the urgency and blood needs US of bladder and kidnies. Orders placed. [facility]11-08-[facility]24 Telephone encounter Note* Telephone Encounter - Claribel Mason LPN - 07/11/2024 6:46 AM EST Please see pt's message. Claribel Mason LPN [facility]11-08-2024 Miscellaneous Notes* Telephone Encounter - Claribel Mason LPN - 07/11/2024 6:46 AM EST Please see pt's message. Claribel Masno LPN documented in this encounterOhiohealth [facility]11-05-2024 NoteHNO ID: [id number] Author: HERBER REED PA-C Service: ? Author Type: Physician Yield Loss Inspector Type: Progress Notes Filed: 07/08/2024 11:36 Note Text: [facility] Herber Reed [address] [place] [address] Subjective Last OV: 05/26/24 HPI: Kristina Burch is a 64 year old female who presents for follow up of RA, OA, fibro. She reports she was diagnosed with a UTI and will be starting antibiotics today for 5 days. She notes she was found to have fatty liver on an abd US and she self d/c MTX 2 days ago. No missed doses of MTX. Was not told to d/c the medication. She notes her knees and back continue to hurt. Her L hip and L shoulder also are painful. She will be seeing [place] [facility] for nerves to get burnt to help with her pain. She notes no joint swelling. Rheumatologic disease history: First OV date: 02/07/23 Diagnosis: RA, OA, fibro Serologies: CCP 81, RF 29, SANIYA neg, SSA/SSB neg Erosions: none Current therapy: MTX 15 mg weekly, folic acid 1 mg daily, celebrex 200 mg BID Prior therapy: oxycodone, ultram, relafen, meloxicam, cymbalta, lyrica, gabapentin DXA: 06/22/2023 Interval Review of Systems CONSTITUTIONAL: Recent Weight change: No Fever: No EENT: Dryness in eyes: No Dryness of mouth: No Oral ulcers: No CARDIOVASCULAR: Pain in chest: No RESPIRATORY: Shortness of breath: No Cough: No GASTROINTESTINAL: Nausea: No Vomiting: No Changes in bowel movements: No Heartburn: No MUSCULOSKELETAL: Per HPI INTEGUMENTARY: Rash: No NEUROLOGICAL SYSTEM: Headaches: No All other ROS reviewed, pertinent positives in HPI PAST MEDICAL HISTORY Diagnosis Date Abnormal mammogram Acute respiratory disease due to COVID-19 virus 06/16/[address] Scott Quarles Advance directive discussed with patient 04/06/2022 Discussed 04/06/2022 Arthritis of knee, left 01/31/2013 Arthritis of left hip 01/19/2016 Arthritis of left shoulder region 10/10/2023 Ascending aorta dilatation (HCC) 07/04/2017 04/19/16: 4.2 cm 06/11/17: 4.4 cm 06/24/18 4.4 cm Cervical high risk human papillomavirus (HPV) DNA test positive 05/27/2008 Chronic anxiety 06/01/2021 Chronic diarrhea 12/09/2018 Chronic hypoxemic respiratory failure (HCC) 09/06/2021 resolved Chronic pain syndrome 11/29/[address] Bustillos as of 11/27/2022 Chronic prescription benzodiazepine use 06/01/2021 DDD (degenerative disc disease), lumbar 07/24/[address] Jose Raul Machuca Dependence on nocturnal oxygen therapy 04/24/2023 Seeing Pulm Elevated hemoglobin A1c 04/24/2023 Essential tremor 04/06/2022 Ex-smoker 04/06/2022 Excessive or frequent menstruation Heavy periods Fatty liver Fibromyalgia 02/26/2014 Gastroesophageal reflux disease without esophagitis 04/24/2023 Hemorrhage of gastrointestinal tract, unspecified History of COVID-19 06/13/202105/2021 Hydrocephalus, adult (HCC) 02/09/2003 Hypertension, essential 01/22/2019 Living will on file 04/06/2022 DPA: Dustin () Lung nodule 01/24/2022 Seeing pulm Migraines 07/26/2021 Used to see neuro and was getting Botox Mild dysplasia of cervix 2006 Mixed hyperlipidemia 01/20/2016 Nonrheumatic mitral valve disorder, unspecified 04/06/2016 Obstructive sleep apnea 10/13/2016 DME - [facility] Plantar fasciitis 2018 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 Scott Quarles Postcoital bleeding Primary insomnia 06/13/2021 Primary osteoarthritis of both knees 11/15/2022 Primary osteoarthritis of both shoulders 04/06/2022 Seeing [facility] Rectocele 04/19/2007 Renal cyst 07/13/2016 Rheumatoid arthritis (HCC) 04/24/2023 Seeing Rheum. Right knee pain Situational mixed anxiety and depressive disorder 11/12/2017 Spinal stenosis, lumbar region, without neurogenic claudication 11/15/2022 Thoracic aortic aneurysm without rupture ([facility]) 2018 Urge incontinence 04/19/2007 Vitamin D deficiency [...] EGD LIG/TRNSXJ FLP TUBE ABDL/VAG APPR UNI/BI Tubal ligation PAST SURGICAL HISTORY OF 2000 BRAIN SURG/HYDROCEPHALIS - PAST SURGICAL HISTORY OF 2000 REPAIR TENNIS ELBOW PAST SURGICAL HISTORY OF 09/07/06, 05/10,11/08 repair rotator cuff/tendon rt. shoulder PAST SURGICAL HISTORY OF 10/2017 ex lap, ALFRED PROCED (more content not included)...[facility]11-05-2024 History of Present illness Narrative* Herber Reed PA-C - 07/08/2024 11:00 AM EST Images from the original note were not included. [facility] Herber Reed [address] [place] [address] Subjective Last OV: 05/26/24 HPI: Kristina Burch is a 64 year old female who presents for follow up of RA, OA, fibro. She reports she was diagnosed with a UTI and will be starting antibiotics today for 5 days. She notes she was found to have fatty liver on an abd US and she self d/c MTX 2 days ago. No missed doses of MTX. Was not told to d/c the medication. She notes her knees and back continue to hurt. Her L hip and L shoulder also are painful. She will be seeing [place] [facility] for nerves to get burnt to help with her pain. She notes no joint swelling. Rheumatologic disease history: First OV date: 02/07/23 Diagnosis: RA, OA, fibro Serologies: CCP 81, RF 29, SANIYA neg, SSA/SSB neg Erosions: none Current therapy: MTX 15 mg weekly, folic acid 1 mg daily, celebrex 200 mg BID Prior therapy: oxycodone, ultram, relafen, meloxicam, cymbalta, lyrica, gabapentin DXA: 06/22/2023 Interval Review of Systems CONSTITUTIONAL: Recent Weight change: No Fever: No EENT: Dryness in eyes: No Dryness of mouth: No Oral ulcers: No CARDIOVASCULAR: Pain in chest: No RESPIRATORY: Shortness of breath: No Cough: No GASTROINTESTINAL: Nausea: No Vomiting: No Changes in bowel movements: No Heartburn: No MUSCULOSKELETAL: Per HPI INTEGUMENTARY: Rash: No NEUROLOGICAL SYSTEM: Headaches: No All other ROS reviewed, pertinent positives in HPI PAST MEDICAL HISTORY Diagnosis Date Abnormal mammogram Acute respiratory disease due to COVID-19 virus 06/16/[address] Scott Quarles Advance directive discussed with patient 04/06/2022 Discussed 04/06/2022 Arthritis of knee, left 01/31/2013 Arthritis of left hip 01/19/2016 Arthritis of left shoulder region 10/10/2023 Ascending aorta dilatation (HCC) 07/04/2017 04/19/16: 4.2 [...] 04/06/2022 Excessive or frequent menstruation Heavy periods Fatty liver Fibromyalgia 02/26/2014 Gastroesophageal reflux disease without esophagitis 04/24/2023 Hemorrhage of gastrointestinal tract, unspecified History of COVID-19 06/13/202105/2021 Hydrocephalus, adult (HCC) 02/09/2003 Hypertension, essential 01/22/2019 Living will on file 04/06/2022 DPA: Dustin () Lung nodule 01/24/2022 Seeing pulm Migraines 07/26/2021 Used to see neuro and was getting Botox Mild dysplasia of cervix 2006 Mixed hyperlipidemia 01/20/2016 Nonrheumatic mitral valve disorder, unspecified 04/06/2016 Obstructive sleep apnea 10/13/2016 DME - [facility] Plantar fasciitis 2018 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 Scott Quarles Postcoital bleeding Primary insomnia 06/13/2021 Primary osteoarthritis [...] HYSTERECTOMY UTERUS 250 GM/< 09/04/2008 Hysterectomy, vaginal/TVT History Review: I have reviewed and modified as needed, the following during this visit: Allergies,Past Medical History, Past Surgical History, Past Family History, Past Social History. Physical Exam BP 139/75 Pulse (!) 57 Temp 36.8 C (98.2 F) (Temporal) Ht 172.4 cm (5' 7.88) Wt 92.5 kg (204 lb) LMP 08/04/2008 BMI 31.13 kg/m GENERAL: Well appearing, alert, comfortable, in no acute distress, well- hydrated, well nourished. HEENT: Negative for external ears normal. Canals are clear. Eye Exam normal. External nose normal, no nasal ulcer or throat ulcer. NECK: NECK Supple, no adenopathy NEURO: Motor and sensory exam normal MOTOR: Normal; including tone, gait, stressed gait, power and coordination. SKIN: Negative for alopecia, skin rash, malar rash, skin lesion, skin ulcer, pits, thickening, color changes, telangiectasias, nail changes, nail ridging, nail pitting, onycholysis MUSCULOSKELETAL: no synovitis; tenderness L shoulder Recent Lab Results: WBC (k/uL) Date Value 05/30/2024 5.28 RBC (m/uL) Date Value 05/30/2024 4.09 Hemoglobin (g/dL) Date Value 05/30/2024 12.9 Hematocrit (%) Date Value 05/30/2024 37.5 Platelet Count (k/uL) Date Value 05/30/2024 207 Creatinine (mg/dL) Date Value 05/30/2024 0.83 Calcium, Total (mg/dL) Date Value 05/30/2024 9.7 Alkaline Phosphatase (U/L) Date Value 06/02/2024 163 (H) AST (U/L) Date Value 05/30/2024 31 ALT (U/L) Date Value 05/30/2024 34 Latest Ref Rng & Units 04/16/2014 02/07/2023 ESR, WSR WSR 0 - 20 mm/hr 12 17 Latest Ref Rng & Units 04/16/2014 02/07/2023 CRP CRP <0.9 mg/dL 0.1 <0.3 Recent Radiology Results: 06/16/24 whole body bone scan: IMPRESSION: No scintigraphically evident aggressive osseous process or metabolic bone disease, including Paget's disease of bone. Degenerative/arthritic changes, as described. Radiographic confirmation may be performed, as clinically indicated. 06/11/24 abd US: IMPRESSION: Hepatic steatosis. Assessment / Plan: (M05.731, M05.732) 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)(primary encounter diagnosis) (M15.9) Generalized osteoarthrosis (M79.7) Fibromyalgia (Z79.899) High risk medication use The patient presents today for follow up. Her overall pain appears to be more OA related. No signs of active RA. Advise she restart MTX, AST and ALT have been normal. She has fatty liver on recent abd US, continue close monitoring of LFTs. Continue with pain management for ablation. Labs ordered for monitoring for medication toxicity. Patient advised to hold any immunosuppressant medication if sick or on antibiotics. Patient advisedto contact the clinic with questions. Last rheumatology OV note reviewed. 1. Discussed the above in detail with the patient. All questions were answered. 2. Meds: no changes 3. Testing: CBC, CMP, ESR, CRP ordered 4. Contact the clinic with concerns 5. Follow up: as scheduled with Dr. Burnett in October Herber Reed PA-C I spent a total of 25 minutes on the date of the service which included preparing to see the patient, [id number] patient care, completing clinical documentation, obtaining and/or reviewing separately obtained history, performing a medically appropriate examination, counseling and educating the pat ient/family/caregiver, ordering medications, tests, or procedures, and communicating results to thepatient/family/caregiver. documented in this encounterOhiohealth [facility]11-05-[address] [facility]-2024 History of Present illness Narrative* Chiki Nick APRN.E[employer]ATOR [employer] - 07/08/2024 7:20 AM EST This note was created using [employer]. Subjective Kristina Burch is a 64 year old female. HPI For the last two weeks pt has had pressure, burning, and urinary odor. She has had similar symptomswith negative cultures. She is to follow up with urology in few weeks. Review of Systems Objective BP 122/66 Pulse 68 Temp 36.2 C (97.2 F) Resp 16 Wt 93.8 kg (206 lb 12.7 oz) LMP 08/04/2008 SpO2 94% BMI 31.54 kg/m Physical Exam Vitals and nursing note reviewed. Constitutional: General: She is not in acute distress. Appearance: Normal appearance. She is not ill-appearing. HENT: Head: Normocephalic. Mouth/Throat: Mouth: Mucous membranes are moist. Eyes: Conjunctiva/sclera: Conjunctivae normal. Cardiovascular: Rate and Rhythm: Normal rate and regular rhythm. Pulmonary: Effort: Pulmonary effort is normal. Breath sounds: Normal breath sounds. Musculoskeletal: General: Normal range of motion. Cervical back: Normal range of motion. Skin: General: Skin is warm and dry. Neurological: General: No focal deficit present. Mental Status: She is alert. Psychiatric: Mood and Affect: Mood normal. Behavior: Behavior normal. Assessment and Plan ASSESSMENT/PLAN: 1. Burning with urination - ICD9: 788.1, ICD10: R30.0 recurrent - UA positive for dyana esterase - Send urine for culture - Begin treatment with Macrobid 100 mg BID for 5 days - Patient education for prevention given Pt will follow up with urology - UA DIP, URINE (POC) - URINE CULTURE - NITROFURANTOIN MONOHYDRATE & MACROCRYSTAL 100 MG ORAL CAP Chiki Nick APRN.CNP documented in this encounterOhiohealth [facility]10-29-2024 Telephone encounter Note * Telephone Encounter - Latrice Parker APRN.CNP - 07/01/2024 1:43 PM EDT Noted, thanks. [facility]10-29-[facility]24 Miscellaneous Notes* Telephone Encounter - Latrice Parker APRN.CNP - 07/01/2024 1:43 PM EDT Noted, thanks. * Telephone Encounter - Amanda Quarles LPN - 07/01/2024 1:31 PM EDT Called patient, verified name and d.o.b Patient states she is waking less, only wakes up when she moves a certain way due to hearing air. Overall sleeping much better. Amanda Quarles LPN July 01, 2024 1:32 PM * Telephone Encounter - Amanda Quarles LPN - 07/01/2024 1:31 PM EDT ----- Message from Latrice Parker APRN.[employer] sent at 06/02/2024 10:46 AM EDT ----- Regarding: download 30 days How is she doing? Waking less with pressure change? documented in this encounterOhiohealth [facility]10-29-2024 Telephone encounter Note * Telephone Encounter - Amanda Quarles LPN - 07/01/2024 1:31 PM EDT Called patient, verified name and d.o.b Patient states she is waking less, only wakes up when she moves a certain way due to hearing air. Overall sleeping much better. Amanda Quarles LPN July 01, 2024 1:32 PM [facility]10-29-2024 Telephone encounter Note* Telephone Encounter - Amanda Quarles LPN - 07/01/2024 1:31 PM EDT ----- Message from Latrice Parker APRN.[employer] sent at 06/02/2024 10:46 AM EDT ----- Regarding: download 30 days How is she doing? Waking less with pressure change? [facility]10-15-2024 NoteHNO ID: [id number] Author: CLARIBEL MASON LPN Service: ? Author Type: LICENSED NURSE Type: Progress Notes Filed: 06/17/2024 13:17 Note Text: Scan on 06/17/2024 12:07 PM by Provider, Karolina, RODERICKC: Consultation - CardiologyUniversity [facility]als [facility]10-15-2024 History of Present illness Narrative* Claribel Mason LPN - 06/17/2024 1:17 PM EDT Scan on 06/17/2024 12:07 PM by Provider, ILIR Turcios: Consultation - Cardiology documented in this encounterOhiohealth [facility]10-15-2024 Telephone encounter Note * Telephone Encounter - Geena Rosen MA - 06/17/2024 10:57 AM EDT Pt notified and verbalized understanding Geena Rosen MA [facility]10-15-2024 Miscellaneous Notes* Telephone Encounter - Geena Rosen MA - 06/17/2024 10:57 AM EDT Pt notified and verbalized understanding Geena Rosen MA * Telephone Encounter - Selam Argueta APRN.CNP - 06/17/2024 9:33 AM EDT Please let patient know her Bone scan is negative. documented in this encounterOhiohealth [facility]10-15-2024 Telephone encounter Note * Telephone Encounter - Selam Argueta APRN.CNP - 06/17/2024 9:33 AM EDT Please let patient know her Bone scan is negative. [facility]10-15-[address] [facility]10-15-2024 Procedure note* Mónica Osorio RPFT - 06/17/2024 8:34 AM EDTAssociated Order(s): NITRIC OXIDE, EXHALED RESPIRATORY THERAPY ORAL EXHALED NITRIC OXIDE SERVICE DATE: 06/17/2024 SERVICE TIME: 8:34 AM Oral Exhaled Nitric Oxide measurement: 19.0 (ppb) Normal: Adult <25 ppb, pediatric (<12 years) <20 ppb High Normal / Increased: Adult 25-50 ppb, pediatric (<12 years) 20-35 ppb Moderately raised exhaled Nitric Oxide may indicate underlying inflammation, but note that: Cold and influenza can raise exhaled Nitric Oxide and some patients have higher baseline exhaled Nitric Oxide levels than others. High: Adult >50 ppb, pediatric (<12 years) >35 ppb Indicative of ongoing eosinophilic inflammation. Symptomatic patient likely to respond to steroids. Possible causes (if already on steroids): Poor compliance, recent allergen exposure, steroid dose inadequate, and steroid resistance. Note that not all patients with high exhaled nitric oxide levels display symptoms. Oral Exhaled Nitric Oxide measurement (Previous Encounters) Test Date Oral Exhaled Nitric Oxide (ppb) 06/17/2024 19.0 NAME: CONNOR Reyes PATIENT NAME: Kristina Burch DATE: June 17, 2024 TIME: 8:34 AM [facility]10-15-2024 Procedure note* Mónica Osorio RPFT - 06/17/2024 8:34 AM EDTAssociated Order(s): NITRIC OXIDE, EXHALED RESPIRATORY THERAPY ORAL EXHALED NITRIC OXIDE SERVICE DATE: 06/17/2024 SERVICE TIME: 8:34 AM Oral Exhaled Nitric Oxide measurement: 19.0 (ppb) Normal: Adult <25 ppb, pediatric (<12 years) <20 ppb High Normal / Increased: Adult 25-50 ppb, pediatric (<12 years) 20-35 ppb Moderately raised exhaled Nitric Oxide may indicate underlying inflammation, but note that: Cold and influenza can raise exhaled Nitric Oxide and some patients have higher baseline exhaled Nitric Oxide levels than others. High: Adult >50 ppb, pediatric (<12 years) >35 ppb Indicative of ongoing eosinophilic inflammation. Symptomatic patient likely to respond to steroids. Possible causes (if already on steroids): Poor compliance, recent allergen exposure, steroid dose inadequate, and steroid resistance. Note that not all patients with high exhaled nitric oxide levels display symptoms. Oral Exhaled Nitric Oxide measurement (Previous Encounters) Test Date Oral Exhaled Nitric Oxide (ppb) 06/17/2024 19.0 NAME: CONNOR Reyes PATIENT NAME: Kristina Burch DATE: June 17, 2024 TIME: 8:34 AM documented in this encounterOhiohealth [facility]10-15-[address] [facility]10-15-2024 History of Present illness Narrative* Mónica Osorio RPFT - 06/17/2024 8:33 AM EDT PULM FUNCTION: Provider: Scott Quarles MD Assisting Tech: Mónica Osorio RPFT Exhaled Nitric Oxide: 1 documented in this encounterOhiohealth [facility]10-15-2024 History of Present illness Narrative* Scott Quarles MD - 06/17/2024 8:00 AM EDT Images from the original note were not included. . Respiratory [facility] Note Patient name: Kristina Burch PCP: Ganga Nunez MD CC: SOB HPI: Kristina Burch 64 year old female former minimal smoker with PMH significant for obesity, OSAon CPAP with oxygen bleed-in, hydrocephalus, fibromyalgia, MANDIE, HLD history of COVID PNA 2020 (HFNC, IGGY, DEX) with hypoxemic respiratory failure but able to discontinue daytime oxygen, and lung nodule. Chest imaging showed resolution of her COVID infiltrates but incidental note of a 6 mm lung nodule that has been stable for two years. She has had chronic post COVID dyspnea. Original PFT normal most recent PFT shows small airways obstruction with reversibility. Over the past month she has had increasing dyspnea mainly with exertion. Especially notable when climbing stairs or hurrying. No association with changes in the weather or changes in her environment. She has been using her albuterol almost every day and up to 6 times a day on her bad days. Albuterol is helpful in relieving her dyspnea. She denies any wheezing or chest tightness. She does feel as if she is unable to take a real deep cleansing breath. She has had problems with sinus congestion and drainage and has associated cough with phlegm production only in the morning. Occasional nosebleeds. She relates this to use of her CPAP. No history of allergies. She has Astelin nasal spray available to use as needed which does seem to help. DATA: SERVICE DATE: 06/17/2024 SERVICE TIME: 8:34 AM Oral Exhaled Nitric Oxide measurement: 19.0 (ppb) Oximetry with Ambulation Test for This Encounter O2 Device O2 Adapter NC O2 Flow SpO2% HR Activity Ft Walked (ft) Time (min) Avg Speed (MPH) R/A 98 65 Resting R/A 94 92 Walking, usual pace 400 3 1.52 R/A 91 108 Walking, fastest pace 500 3 1.89 PFT: Spirometry shows small airways obstruction that improves with bronchodilator Labs: No Eosinophilia PAST MEDICAL HISTORY Diagnosis Date Abnormal mammogram Acute respiratory disease due to COVID-19 virus 06/16/[address] Scott Quarles Advance directive discussed with patient 04/06/2022 Discussed 04/06/2022 Arthritis of knee, left 01/31/2013 Arthritis of left hip 01/19/2016 Arthritis of left shoulder region 10/10/2023 Ascending aorta dilatation (HCC) 07/04/201716: 4.2 cm [...] or frequent menstruation Heavy periods Fibromyalgia 02/26/2014 Gastroesophageal reflux disease without esophagitis 04/24/2023 Hemorrhage of gastrointestinal tract, unspecified History of COVID-19 06/13/202105/2021 Hydrocephalus, adult ([facility]) 02/09/2003 Hypertension, essential 01/22/2019 Living will on file 04/06/2022 DPA: Dustin () Lung nodule 01/24/2022 Seeing pulm Migraines 07/26/2021 Used to see neuro and was getting Botox Mild dysplasia of cervix 2006 Mixed hyperlipidemia 01/20/2016 Nonrheumatic mitral valve disorder, unspecified 04/06/2016 Obstructive sleep apnea 10/13/2016 DME - [facility] Plantar fasciitis 2018 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 Scott Quarles Postcoital bleeding Primary insomnia 06/13/2021 Primary osteoarthritis of both knees 11/15/2022 Primary osteoarthritis of both shoulders 04/06/2022 Seeing [facility] Rectocele 04/19/2007 Renal cyst 07/13/2016 Rheumatoid arthritis ([facility]) 04/24/2023 Seeing Rheum. Right knee pain Situational mixed anxiety and depressive disorder 11/12/2017 Spinal stenosis, lumbar region, without neurogenic claudication 11/15/2022 Thoracic aortic aneurysm without rupture ([facility]) 2018 Urge incontinence 04/19/2007 Vitamin D deficiency 07/23/2012 Well adult exam 06/13/2021 Last done: 06/13/2021 ALLERGIES Allergen Reactions Dilaudid [Hydromorp* Mental Status Change, Other: See Comments Hallucinations Sulfa (Sulfonamide * Rash Ultram [Tramadol Hc* GI Upset Pt. tried again on 02-13 and became very ill with GI issues Oxycontin [Oxycodon* Swelling Relafen [Nabumetone] GI Upset Sertraline Other: See Comments Tremors right upper extremity. CPAP/BIPAP/OTHER APAP 7-15 cmH2O DME [employer] [START ON 06/25/2024] clonazePAM (KLONOPIN) 0.5 mg tablet Take at bedtime for insomnia and RLS. Patient should start on June 25, 2024. celecoxib (CELEBREX) 200 mg capsule Take 1 capsule by mouth two times a day. FLUoxetine (PROZAC) 20 mg capsule Take 1 capsule by mouth once daily. folic acid 1 mg tablet Take 1 tablet by mouth once daily. methotrexate 2.5 mg tablet Take 6 tablets by mouth every Sunday. as directed. hydroCHLOROthiazide 25 mg tablet Take 1 tablet by mouth once daily. atorvastatin (LIPITOR) 40 mg tablet Take 1 tablet by mouth daily at bedtime. For cholesterol. traZODone (DESYREL) 100 mg tablet Take 1 tablet by mouth daily at bedtime. azelastine (ASTELIN, ASTEPRO) 0.1% nasal spray Use 2 Sprays in each nostril twice daily as needed. metoprolol succinate ER (TOPROL XL) 50 mg 24 hr tablet Take 2 tablets by mouth once daily. CPAP Lifetime supplies for AutoPAP 6-11 cm H20 including mask, heated tubing, humidity, filters. Fax 30 day download report to [phone] to assess residual ahi. calcium carbonate (CALTRATE 600 ORAL) Take 1 tablet by mouth once daily. multivitamin tablet Take 1 tablet by mouth once daily. BIOTIN ORAL Take 1 tablet by mouth once daily. Cholecalciferol, Vitamin D3, 2,000 unit cap Take 10,000 Units by mouth once daily. budesonide-formoterol (SYMBICORT) 160-4.5 mcg/actuation inhaler Inhale 2 Puffs as instructed two times a day. albuterol HFA (VENTOLIN HFA) 90 mcg/actuation inhaler Inhale 2 Puffs as instructed every 4 hours asneeded for wheezing/shortness of breath. vit C-Zn gluc-herbal no.325 (ELDERBERRY ZINC VIT C) 90-15 mg lozg Use 1 Lozenge as instructed twicedaily. (Patient not taking: Reported on 06/17/2024) Social History Tobacco Use Smoking status: Former Current packs/day: 0.00 Average packs/day: 0.1 packs/day for 2.0 years (0.2 ttl pk-yrs) Types: Cigarettes Start date: 04/26/2008 Quit date: 04/26/2010 Years since quittin.1 Smokeless tobacco: Never Vaping Use Vaping status: Never Used Substance Use Topics Alcohol use: Yes Comment: 1-2 times a week at most: wine Drug use: No FAMILY HISTORY Problem Relation [...] history and surgical history reviewed and updated In EMR REVIEW OF SYSTEMS: CONSTITUTIONAL: No fevers, chills, nightsweats, unintended weight loss HEENT: Positive nasal congestion/sinus symptoms. No history of allergies CARDIOVASCULAR: No chest pain, palpitations, orthopnea, PND, edema. PULM: See HPI GI: No dysphagia/odynophagia, problematic reflux NEURO: No new balance problems, peripheral weakness/paresthesias or numbness of concern. PSY: Anxiety INTEGUMENTARY: No new skin changes PHYSICAL EXAMINATION: BP 150/84 Pulse 67 Temp (Src) 98.4 (Temporal) Wt 205 lb 6.4 oz (93.2kg) SpO2 97% LMP 08/04/2008 General Appearance: Age-appropriate female, NAD. Skin: Skin color, texture, turgor normal, no suspicious rashes or lesions. Head: Normocephalic, no masses, lesions, tenderness or abnormalities. Oropharynx: No oral lesions, erythema. Neck: No JVD, no masses, no adenopathy. Lungs: Not labored, normal to percussion, no wheezes or crackles. Heart: RRR, normal. Extremities: No edema or clubbing. Assessment/Plan: 1. Post-COVID chronic dyspnea -Worsening symptoms with evidence of small airways obstruction on most recent PFTs. No persistent need for oxygen 2. Small airways disease -Started Symbicort 2 puffs twice daily 160/4.5 with continued use of albuterol as needed. Cautionedpatient about overuse of her albuterol and potential adverse effects -Reassessment 2 to 3 months 3. Postnasal drip -Check for allergy component -Instructed patient to use her nasal spray daily Scott Quarles MD Res[facility] documented in this encounterOhiohealth [facility]10-15-[address] [facility]10[facility]14-2024 History of Present illness Narrative* Trey Alexanderi, RT(R) - 06/16/2024 12:00 PM EDT RADIOLOGY SERVICE PROGRESS NOTE SERVICE DATE: 06/16/2024 SERVICE TIME: 11:50 AM PATIENT IDENTITY VERIFICATION COMPLETED USING TWO (2) STANDARD IDENTIFIERS: Name and Date of confirmed by patient verbally FALL SCREENING: Has the patient had 2 falls in the last year or 1 fall with injury or currently using an Ambulatory Assistive Device (Walker, Cane, Wheelchair, Crutches, etc.)? No PATIENT GENDER DATA: .female ALLERGIES: Reviewed and unchanged MEDICATIONS REVIEWED: No PATIENT RELEVANT IMPLANT DATA REVIEWED: Not Applicable PATIENT PRESENTS WITH AN IMPLANTABLE OR ATTACHED CLOTH TESTER QUALITY:n/a CREATININE: Creatinine Date Value Ref Range Status 05/30/2024 0.83 0.58 - 0.96 mg/dL Final 03/25/2024 0.78 0.58 - 0.96 mg/dL Final 02/14/2024 0.82 0.58 - 0.96 mg/dL Final Estimated Glomerular Filtration Rate Date Value Ref Range Status 05/30/2024 78 >=60 mL/min/1.73m Final Comment: Estimated Glomerular Filtration Rate (eGFR) is calculated using the 2020 CKD-EPI creatinine equation. This equation utilizes serum creatinine, sex, and age as parameters. The creatinine assay has traceable calibration to isotope dilution- mass spectrometry. Refer to KDIGO guidelines for clinical interpretation. In patients with unstable renal function, e.g. those with acute kidney injury, the eGFRmay not accurately reflect actual GFR. eGFR- Date Value Ref Range Status 07/26/2021 >60 Final P.O.C.T. RESULTS: N/A June 16, [address] PERFORMED: No IV SITE: Ambulatory: A peripheral IV was started in the Right hand with a Angio cath: 24 gauge. POST EXAM PIV STATUS: Discontinued PROCEDURE TYPE: NM INJECT: Whole Body Bone Scan. 22.6 mCi Tc99m MDP. No other medications given.. ADMINISTRATION TIME: 12:02 PATIENT DISCHARGED TO: Ambulatory patient, left NM department area. A Diagnostic radioactive procedure has taken place, with no further precautions necessary other than routine body substance precautions. More information regarding radiation safety can be found usingthis link: [email or web address] SIGNATURE: JEFFERY Hernandez) PATIENT NAME: Kristina Burch DATE: June 16, 2024 TIME: 12:32 PM PAGER/CONTACT #: documented in this encounterOhiohealth Pickerington [facility]10-14-[address] [facility]10-10-2024 Telephone encounter Note* Telephone Encounter - Cathi Almaraz RN - 06/12/2024 10:28 AM EDT Pt called and is notified of providers results and instructions. Pt voices understanding. Cathi Almaraz RN [facility]10-10-2024 Miscellaneous Notes* Telephone Encounter - Cathi Almaraz RN - 06/12/2024 10:28 AM EDT Pt called and is notified of providers results and instructions. Pt voices understanding. Cathi Almaraz RN * Telephone Encounter - Selam Argueta APRN.CNP - 06/12/2024 9:50 AM EDT Please let patient know his US shows hepatic steatosis or fatty liver disease. I would recommend patient decrease amount of fatty and processed foods he eats. Also recommend weight loss of at least 10% which has been shown to be beneficial. If left untreated fatty liver disease can progress to liver failure. First line treatment is exercise and diet modification and weight loss. documented in this encounterOhiohealth [facility]10-10-2024 Telephone encounter Note * Telephone Encounter - Selam Argueta APRN.CNP - 06/12/2024 9:50 AM EDT Please let patient know his US shows hepatic steatosis or fatty liver disease. I would recommend patient decrease amount of fatty and processed foods he eats. Also recommend weight loss of at least 10% which has been shown to be beneficial. If left untreated fatty liver disease can progress to liver failure. First line treatment is exercise and diet modification and weight loss. [facility]10-[facility] History of Present illness Narrative* Barbra Crespo RDMS - 06/11/2024 8:30 AM EDT Radiology Service Progress Note PATIENT NAME: Kristina Burch DATE OF SERVICE: June 11, 2024 TIME: 10:29 AM PATIENT IDENTITY VERIFICATION COMPLETED USING TWO (2) IDENTIFIERS: Name and Date of confirmedby patient verbally. FALL SCREENING: Has the patient had 2 falls in the last year or 1 fall with injury or currently using an Ambulatory Assistive Device (Walker, Cane, Wheelchair, Crutches, etc.)? No PATIENT GENDER DATA: Female. status: : No status: NO. PATIENT RELEVANT IMPLANT DATA REVIEWED: Not Applicable PATIENT PRESENTS WITH AN IMPLANTABLE OR ATTACHED CLOTH TESTER QUALITY: No RADIOLOGY DEPARTMENT: Ultrasound PERIPHERAL IV DATA: Not applicable SIGNED BY: Barbra Crespo RDMS RVT June 11, 2024 10:29 AM documented in this encounterOhiohealth Pickerington [facility]10-09-[address] [facility]10-[facility]-[address] [facility]10-08-2024 Procedure note* Mónica Osorio RPFT - 06/10/2024 10:31 AM EDTAssociated Order(s): OXIMETRY WITH AMBULATION RESPIRATORY THERAPY OXIMETRY WITH AMBULATION Oximetry with Ambulation Test for This Encounter O2 Device O2 Adapter NC O2 Flow SpO2% HR Activity Ft Walked (ft) Time (min) Avg Speed (MPH) R/A 98 65 Resting R/A 94 92 Walking, usual pace 400 3 1.52 R/A 91 108 Walking, fastest pace 500 3 1.89 General Information Pulse Oximetry Site Total Time Spent Walking Assistance/O2 Supply Carrier -- 30 None NAME: CONNOR Reyes PATIENT NAME: Kristina Burch DATE: June 10, 2024 TIME: 10:31 AM Comment: [facility]10-08-2024 Procedure note* Mónica Osorio RPFT - 06/10/2024 10:31 AM EDTAssociated Order(s): OXIMETRY WITH AMBULATION RESPIRATORY THERAPY OXIMETRY WITH AMBULATION Oximetry with Ambulation Test for This Encounter O2 Device O2 Adapter NC O2 Flow SpO2% HR Activity Ft Walked (ft) Time (min) Avg Speed (MPH) R/A 98 65 Resting R/A 94 92 Walking, usual pace 400 3 1.52 R/A 91 108 Walking, fastest pace 500 3 1.89 General Information Pulse Oximetry Site Total Time Spent Walking Assistance/O2 Supply Carrier -- 30 None NAME: CONNOR Reyes PATIENT NAME: Kristina Burch DATE: June 10, 2024 TIME: 10:31 AM Comment: documented in this encounterOhio[facility] [facility] History of Present illness Narrative* Mónica Osorio RPFT - 06/10/2024 9:52 AM EDT PULM FUNCTION: Provider: Scott Quarles MD Assisting Tech: Mónica Osorio RPFT Spirometry w/BD: 1 Oximetry - Ambulation: 1 documented in this encounterOhiohealth [facility]10-04-2024 Telephone encounter Note * Telephone Encounter - Geena Rosen MA - 06/06/2024 11:10 AM EDT Pt states that she is still having the burning and pressure when voiding. Pt asking if there is anything further she can do about this? Please advise Geena Rosen MA [facility]10-04-2024 Miscellaneous Notes* Telephone Encounter - Geena Rosen MA - 06/06/2024 11:10 AM EDT Pt states that she is still having the burning and pressure when voiding. Pt asking if there is anything further she can do about this? Please advise Geena Rosen MA documented in this encounterOhiohealth [facility]10-[facility]-2024 Telephone encounter Note * Telephone Encounter - Geena Rosen MA - 06/06/2024 11:07 AM EDT Pt notified and verbalized understanding. Schedulers please call pt to schedule imaging Geena Rosen MA [facility]10-04-2024 Miscellaneous Notes* Telephone Encounter - Geena Rosen MA - 06/06/2024 11:07 AM EDT Pt notified and verbalized understanding. Schedulers please call pt to schedule imaging Geena Rosen MA * Telephone Encounter - Selam Argueta APRN.CNP - 06/06/2024 9:35 AM EDT Please let patient know her bone and liver alkaline phosphatase levels are elevated.I have ordered further imaging. documented in this encounterOhiohealth [facility]10-04-2024 Telephone encounter Note * Telephone Encounter - Selam Argueta APRN.CNP - 06/06/2024 9:35 AM EDT Please let patient know her bone and liver alkaline phosphatase levels are elevated.I have ordered further imaging. [facility]09-30-[facility]24 Telephone encounter Note* Telephone Encounter - Geena Rosen MA - 06/02/2024 11:01 AM EDT Pt notified and verbalized understanding Geena Rosen MA [facility]09-30-2024 Miscellaneous Notes* Telephone Encounter - Geena Rosen MA - 06/02/2024 11:01 AM EDT Pt notified and verbalized understanding Geena Rosen MA * Telephone Encounter - Sara Mcgarry MA - 06/02/2024 10:27 AM EDT Message left for pt to call back for results. Sara Mcgarry MA * Telephone Encounter - Selam Argueta APRN.CNP - 06/02/2024 10:16 AM EDT Please let patient know her alk phos continues to increase and I have ordered follow up lab work. documented in this encounterOhiohealth [facility]09-30-2024 Instructions* Patient Instructions* Latrice Parker APRN.CNP - 06/02/2024 10:39 AM EDT Try a topical on your legs at bedtime and in the night when you can't sleep: --Bio Freeze Roll On --Thera Worx roll-on/foam/cream for muscle cramps I will order new supplies from [employer] I will order clonazepam refilll documented in this encounterOhiohealth [facility]09-30-2024 Telephone encounter Note * Telephone Encounter - Sara Mcgarry MA - 06/02/2024 10:27 AM EDT Message left for pt to call back for results. Sara Mcgarry MA [facility]09-30-2024 Telephone encounter Note* Telephone Encounter - Selam Argueta APRN.CNP - 06/02/2024 10:16 AM EDT Please let patient know her alk phos continues to increase and I have ordered follow up lab work. [facility]09-30[facility] History of Present illness Narrative* Latrice Parker APRN.CNP - 06/02/2024 10:00 AM EDT Images from the original note were not included. [facility] Follow up/ Established patient visit Date of last visit : 02/25/2024 The following Impression/Plan was copied and pasted from the patient's last [facility] visit on 02/25/24: IMPRESSION/PLAN: Primary insomnia (primary encounter diagnosis) Rls (restless legs syndrome) Huber on cpap Kristina Burch is a 63 year old female with insomnia, HUBER, RLS. PMH of essential tremor, chronic pain, fibromyalgia, migraines, HLD, HTN, post COVID chronic dyspnea, nocturnal oxygen, RA, OA, spinalstenosis, anxiety, depression. Her delayed sleep phase resolved with a month of melatonin. HUBER - Continue Auto CPAP at [id number]. With oxygen bleed in - Remember to clean your mask and equipment regularly, as directed. - You should be eligible for new supplies approximately every 3-6 months, depending on your insurance coverage. Contact your Durable Medical Equipment (DME) company for new supplies as needed. - Follow up in 3 months with [facility], [address] Waddell. INSOMNIA Continue trazodone 100 mg at HS RLS Clonazepam 0.5 mg for insomnia and RLS PDMP website checked and validated. All prescriptions have been APPROPRIATELY filled. No suspiciousactivity was identified. 02/25/2024 by Latrice Parker APRN.CNP Here for follow up for RLS, insomnia, HUBER on PAP and O2 [employer] isn't getting her the right supplies--uses nasal pillows (apical hose) with O2 bleed in, but they send [employer] nasal mask. Also needs chin strap and oxygen tubing. Being sent wrong filter--she has [employer]. (It appeared in the chart she had switched to a different DME) SLEEP APNEA Sleep apnea type : HUBER, Most Recent Apnea-Hypopnea Index (AHI): 7.6 on split study Treatment : PAP therapy DME: [employer] PAP History: Current PAP settin-11 cm H2O with O2 bleed in Reviewed objective PAP compliance data: 30 day review on device: AHI 5.3, 5.3 hrs/night, 85% mask fit INSOMNIA Current treatment : Medication(s) : trazodone 100 mg per primary care Status : improved with addition of clonazepam to treat RLS RLS Current treatment : Medication(s) and timing : clonazepam 0.5 mg #30 last filled 05/26/24 Status : better with clonazepam, still tosses and turns in her sleep. Can't stand to have legs touch each other so always has pillow or blanket between them. Hard to get comfortable, not necessarily having urge to move legs since addition of clonazepam, it had been nightly. Previously tried gabapentin and Lyrica for pain, no relief of pain or RLS with either drug. Still getting leg cramps in the night, 2-3 nights per week. PDMP website checked and validated. All prescriptions have been APPROPRIATELY filled. No suspiciousactivity was identified. 06/02/2024 by Latrice Parker APRN.E[employer]ATOR CON[employer] SLEEP HYGIENE QUESTIONS: Takes meds around 8 PM Bedtime : 10 PM Wake up Time : 7-830 AM Time it takes to fall sleep : 1 hr Activities in bed before falling asleep : watch TV, needs TV on to fall asleep Number of times patient wakes up per night : 2-6x, hard to fall back asleep Reason (s) why patient wakes up during the night : urination Estimated total sleep time ( in a 24 hour period of time) : 4-6 hrs Naps : not usually PATIENT-ENTERED QUESTIONNAIRE SLEEP SCORES 05/29/2024 Sleep Questions Reason for visit: Sleep apnea Difficulty falling or staying asleep or poor sleep quality Excessive daytime sleepiness Percent of nights CPAP used at least 4 hours: 28 Accidents or near accidents due to drowsy drivin Multiple values from one day are sorted in reverse-chronological order 03/29/2022 02/25/2024 05/29/2024 [place] Sleepiness Scale Score Incomplete 13 (Excessive daytime sleepiness present) 9 (No clinically significant daytime sleepiness) 03/29/2022 02/25/2024 05/29/2024 PROMIS CAT Sleep Disturbance PROMIS Sleep Disturbance T-Score 68 (moderate) 63 (moderate) 78 (severe) PROMIS Sleep Disturbance Percentile 4 10 0 03/29/2022 02/25/2024 05/29/2024 Insomnia Severity Index Score 24 21 21 03/29/2022 05/29/2024 Restless Leg Syndrome Score Incomplete Incomplete 03/29/2022 05/16/2022 05/29/2024 PHQ-9 Score 18 16 19 10/02/2023 02/06/2024 05/29/2024 PROMIS Global Health - (T-Scores - the mean of general population = 50. Five points is a clinicallymeaningful difference.) Physical T-Score 32.4 26.7 26.7 26.7 Mental T-Score 33.8 33.8 33.8 33.8 SLEEP RELATED ROS Review of Systems Constitutional: Positive for fatigue. ALLERGIES Allergen Reactions Dilaudid [Hydromorp* Mental Status Change, Other: See Comments Hallucinations Sulfa (Sulfonamide * Rash Ultram [Tramadol Hc* GI Upset Pt. tried again on 02-13 and became very ill with GI issues Oxycontin [Oxycodon* Swelling Relafen [Nabumetone] GI Upset Sertraline Other: See Comments Tremors right upper extremity. CURRENT MEDICATIONS: celecoxib (CELEBREX) 200 mg capsule Take 1 capsule by mouth two times a day. FLUoxetine (PROZAC) 20 mg capsule Take 1 capsule by mouth once daily. folic acid 1 mg tablet Take 1 tablet by mouth once daily. methotrexate 2.5 mg tablet Take 6 tablets by mouth every Sunday. as directed. hydroCHLOROthiazide 25 mg tablet Take 1 tablet by mouth once daily. albuterol HFA (VENTOLIN HFA) 90 mcg/actuation inhaler Inhale 2 Puffs as instructed every 4 hours asneeded for wheezing/shortness of breath. atorvastatin (LIPITOR) 40 mg tablet Take 1 tablet by mouth daily at bedtime. For cholesterol. traZODone (DESYREL) 100 mg tablet Take 1 tablet by mouth daily at bedtime. azelastine (ASTELIN, ASTEPRO) 0.1% nasal spray Use 2 Sprays in each nostril twice daily as needed. metoprolol succinate ER (TOPROL XL) 50 mg 24 hr tablet Take 2 tablets by mouth once daily. CPAP Lifetime supplies for AutoPAP 6-11 cm H20 including mask, heated tubing, humidity, filters. Fax 30 day download report to [phone] to assess residual ahi. vit C-Zn gluc-herbal no.325 (ELDERBERRY ZINC VIT C) 90-15 mg lozg Use 1 Lozenge as instructed twicedaily. calcium carbonate (CALTRATE 600 ORAL) Take 1 tablet by mouth once daily. multivitamin tablet Take 1 tablet by mouth once daily. BIOTIN ORAL Take 1 tablet by mouth once daily. Cholecalciferol, Vitamin D3, 2,000 unit cap Take 10,000 Units by mouth once daily. CPAP/BIPAP/OTHER APAP 7-15 cmH2O DME [employer] clonazePAM (KLONOPIN) 0.5 mg tablet Take at bedtime for insomnia and RLS. Prior RLS Medications (last 20 years) 07/11/2020 23:59 RLS Medications hydrocodone/acetaminophen TAKE 1 OR 2 TABLETS BY MOUTH EVERY SIX HOURS NEEDED FOR PAIN FOR UP TO7 DAYS. (5-325 mg tab) -Discontinued Details Outpatient prescription Prior Insomnia Medications (last 20 years) 06/02/2024 23:59 Insomnia Medications trazodone HCl 100 mg AT BEDTIME ORAL fluoxetine HCl 20 mg DAILY ORAL melatonin Take 1 tablet at ~8PM nightly (if miss the dose, skip until the next day). (3 mg tab) -Discontinued clonazepam Take at bedtime for insomnia and RLS. (0.5 mg tab) - Details Outpatient prescription Medication marked as long-term PHYSICAL EXAMINATION: Vital Signs: BP 146/83 Pulse 74 Resp 16 Wt 95.7 kg (211 lb) LMP 08/04/2008 SpO2 95% BMI 31.62 kg/m PHYSICAL EXAM: General appearance: pleasant, NAD Mental status: alert and oriented, able to provide own history Constitutional: WNL Skin: No visible rashes on exposed skin Neuro: No focal deficits observed, no tremors IMPRESSION: Huber on cpap (primary encounter diagnosis) Hypertension, essential Rls (restless legs syndrome) Chronic insomnia Frequent nocturnal awakening Kristina Burch is a 64 year old female with mild HUBER on CPAP, secondary dx of HTN, RLS, chronic insomnia, fibromyalgia, RA, OA, nighttime oxygen She is using PAP but not for full night. AHI is greater than 5. She might be waking in the night due to insufficient PAP pressure. Order to [employer] for supplies since she doesn't have correct filter, oxygen tubing, nasal pillows. PLAN: HUBER - Change Auto CPAP from 6-11 to 7-15 cmH2O. Pressure changed at visit today. Order to [employer] for supplies. Will check a download in about a month. - Remember to clean your mask and equipment regularly, as directed. - You should be eligible for new supplies approximately every 3-6 months, depending on your insurance coverage. Contact your [employer] (DME) company for new supplies as needed. INSOMNIA Continue trazodone 100 mg at HS RLS Continue clonazepam 0.5 mg at HS Try topical products at HS and in the night eg BioFreeze roller ball, TheraWorx for muscle cramps Follow up Dr Waddell 3-4 mos Latrice Parker APRN.ELEVATOR CONSTRUCTOR [employer]IC documented in this encounterOhiohealth [facility]09-30-[address] [facility] [facility]27[facility]2024 History of Present illness Narrative* Selam Agrueta APRN.E[employer]ATOR [employer] - 05/30/2024 10:04 AM EDT Chief Complaint Patient presents with: ER F/U HPI Kristina Burch is a 64 year old female who presents here today for Above Complaints.. Patient presents for ER f/u for GI bleed. Patient was seen at [facility] and had positive occult stool. HGB was stable and patient was d/c'd home with instructions to follow up with pcp for repeat lab work and referral to GI. Past medical history, appointments, medications, allergies reviewed. Previous Medical History PAST MEDICAL HISTORY Diagnosis Date Abnormal mammogram Acute respiratory disease due to COVID-19 virus 06/16/[address] Scott Quarles Advance directive discussed with patient 04/06/2022 Discussed 04/06/2022 Arthritis of knee, left 01/31/2013 Arthritis of left hip 01/19/2016 Arthritis of left shoulder region 10/10/2023 Ascending aorta dilatation (HCC) 07/04/2017 04/19/16: 4.2 cm 06/11/17: 4.4 cm 06/24/18 4.4 cm Cervical high risk human papillomavirus (HPV) DNA test positive 05/27/2008 Chronic anxiety 06/01/2021 Chronic diarrhea 12/09/2018 Chronic hypoxemic respiratory failure (HCC) 09/06/2021 resolved Chronic pain syndrome 11/29/[address] Bustillos as of 11/27/2022 Chronic prescription benzodiazepine use 06/01/2021 DDD (degenerative disc disease), lumbar 07/24/[address] Jose Raul Machuca Dependence on nocturnal oxygen therapy 04/24/2023 Seeing Pulm Elevated hemoglobin A1c 04/24/2023 Essential tremor 04/06/2022 Ex-smoker 04/06/2022 Excessive or frequent menstruation Heavy periods Fibromyalgia 02/26/2014 Gastroesophageal reflux disease without esophagitis 04/24/2023 Hemorrhage of gastrointestinal tract, unspecified History of COVID-19 06/13/202105/2021 Hydrocephalus, adult ([facility]) 02/09/2003 Hypertension, essential 01/22/2019 Living will on file 04/06/2022 DPA: Dustin () Lung nodule 01/24/2022 Seeing pulm Migraines 07/26/2021 Used to see neuro and was getting Botox Mild dysplasia of cervix 2006 Mixed hyperlipidemia 01/20/2016 Nonrheumatic mitral valve disorder, unspecified 04/06/2016 Obstructive sleep apnea 10/13/2016 DME - [facility] Plantar fasciitis 2018 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 Scott Quarles Postcoital bleeding Primary insomnia 06/13/2021 Primary osteoarthritis of both knees 11/15/2022 Primary osteoarthritis of both shoulders 04/06/2022 Seeing [facility] Rectocele 04/19/2007 Renal cyst 07/13/2016 Rheumatoid arthritis (HCC) 04/24/2023 Seeing Rheum. Right knee pain Situational mixed anxiety and depressive disorder 11/12/2017 Spinal stenosis, lumbar region, without neurogenic claudication 11/15/2022 Thoracic aortic aneurysm without rupture ([facility]) 2018 Urge incontinence 04/19/2007 Vitamin D deficiency [...] on File Prior to Visit Medication Sig celecoxib (CELEBREX) 200 mg capsule Take 200 mg by mouth two times a day. celecoxib (CELEBREX) 200 mg capsule Take 1 capsule by mouth two times a day. FLUoxetine (PROZAC) 20 mg capsule Take 1 capsule by mouth once daily. folic acid 1 mg tablet Take 1 tablet by mouth once daily. [START ON 06/01/2024] methotrexate 2.5 mg tablet Take 6 tablets by mouth every Sunday. as directed. hydroCHLOROthiazide 25 mg tablet Take 1 tablet by mouth once daily. albuterol HFA (VENTOLIN HFA) 90 mcg/actuation inhaler Inhale 2 Puffs as instructed every 4 hours asneeded for wheezing/shortness of breath. atorvastatin (LIPITOR) 40 mg tablet Take 1 tablet by mouth daily at bedtime. For cholesterol. traZODone (DESYREL) 100 mg tablet Take 1 tablet by mouth daily at bedtime. clonazePAM (KLONOPIN) 0.5 mg tablet Take at bedtime for insomnia and RLS. melatonin 3 mg tablet Take 1 tablet at ~8PM nightly (if miss the dose, skip until the next day). azelastine (ASTELIN, ASTEPRO) 0.1% nasal spray Use 2 Sprays in each nostril twice daily as needed. metoprolol succinate ER (TOPROL XL) 50 mg 24 hr tablet Take 2 tablets by mouth once daily. CPAP Lifetime supplies for AutoPAP 6-11 cm H20 including mask, heated tubing, humidity, filters. Fax 30 day download report to [phone] to assess residual ahi. vit C-Zn gluc-herbal no.325 (ELDERBERRY ZINC VIT C) 90-15 mg lozg Use 1 Lozenge as instructed twicedaily. calcium carbonate (CALTRATE 600 ORAL) Take 1 tablet by mouth once daily. multivitamin tablet Take 1 tablet by mouth once daily. BIOTIN ORAL Take 1 tablet by mouth once daily. Cholecalciferol, Vitamin D3, 2,000 unit cap Take 10,000 Units by mouth once daily. No current facility-administered medications on file prior to visit. Social History Social History Tobacco Use Smoking status: Former Current packs/day: 0.00 Average packs/day: 0.1 packs/day for 2.0 years (0.2 ttl pk-yrs) Types: Cigarettes Start date: 04/26/2008 Quit date: 04/26/2010 Years since quittin.1 Smokeless tobacco: Never Vaping Use Vaping status: Never Used Substance Use Topics Alcohol use: Yes Comment: 1-2 times a week at most: wine Drug use: No Review of Symptoms REVIEW OF SYSTEMS SEE HPI EXAM: BP 148/83 Pulse 73 Resp 14 Wt 95.7 kg (211 lb) LMP 08/04/2008 BMI 31.62 kg/m General Appearance: Well appearing, alert, in no acute distress, well-hydrated, well nourished.. Lungs: Lungs clear to auscultation. No wheezing, rhonchi, rales.. Heart: RRR without murmur, gallop, or rubs. No ectopy. Abdomen: Positive findings: tenderness mild generalized. Peripheral Pulses: Normal. Health Maintenance List Shingrix Vaccine(1 of 2) Never done BP Controlled (<130/80) due on 06/13/2022 Advance Directive Discussion Never done Covid-19 Vaccine() Never done Influenza Vaccine(1) due on 05/04/2024 Mammogram Screening due on 06/08/2024 Annual PCP Team Chronic Disease Visit due on 03/25/2025 Diabetes Screening due on 03/25/2027 Colorectal Cancer Screening due on 05/05/2027 Lipid Screening due on 10/09/2027 DTaP,Tdap,Td Vaccine(5 - Td or Tdap) due on 03/12/2030 RSV Vaccine(1 - 1-dose 75+ series) due on 2033 Bone Density Screening Completed Hepatitis C Screening Completed Pneumococcal Vaccine: 65+ Completed Cervical Cancer Screening Discontinued ASSESSMENT/PLAN: 1. Positive occult stool blood test - ICD9: 792.1, ICD10: R19.5 (primary diagnosis) - CONSULT TO GASTROENTEROLOGY - COMPLETE BLOOD COUNT AND DIFFERENTIAL 2. 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 Author Type: Surveillance Specialist Type: Progress Notes Filed: 05/29/2024 11:46 Note Text: Scan on 05/28/2024 2:27 PM by Provider, External, PASunniC: Consultation - Emergency MedicineUniversity Hospitals St. [facility]09-26-2024 History of Present illness Narrative* Suzanne White MA - 05/29/2024 11:45 AM EDT Scan on 05/28/2024 2:27 PM by Provider, ILIR Turcios: Consultation - Emergency Medicine documented in this encounterOhiohealth Pickering[facility]09-25-2024 Telephone encounter Note * Telephone Encounter - Ganga Nunez MD - 05/28/2024 3:54 PM EDT Noted and can see patient did go to ER. [facility]09-25-2024 Miscellaneous Notes* Telephone Encounter - Ganga Nunez MD - 05/28/2024 3:54 PM EDT Noted and can see patient did go to ER. * Telephone Encounter - Blanca Dinh LPN - 05/28/2024 8:05 AM EDT Patient calling she had small amount red spotting last night in toilet. This morning she has had 2 large amounts of bright red blood in toilet, rectally. She said she has headache and just does not feel well. No nausea or vomiting or abdominal pain. Advised that she would need to go to ER for evaluation. Patient agreed and is going to the ER, aware note is being sent to PCP. documented in this encounterOhiohealth Pickering[facility]09-25-2024 Telephone encounter Note * Telephone Encounter - Blanca Dinh LPN - 05/28/2024 8:05 AM EDT Patient calling she had small amount red spotting last night in toilet. This morning she has had 2 large amounts of bright red blood in toilet, rectally. She said she has headache and just does not feel well. No nausea or vomiting or abdominal pain. Advised that she would need to go to ER for evaluation. Patient agreed and is going to the ER, aware note is being sent to PCP. [facility]09-23-[facility]24 Instructions* Patient Instructions* Reginaldo Burnett MD - 05/26/2024 3:39 PM EDT BONE MINERAL DENSITY PATIENT INSTRUCTIONS Bone mineral density testing measures the amount of calcium in certain parts of your bones. This information determines how strong your bones are. The test is used to detect osteoporosis, a disease in which the bone's mineral content and density are low, increasing a person's risk of fractures. Thelumbar spine (lower back) and the hip are [...] your usual activities immediately. documented in this encounterOhiohealth Pickerington [facility]09-23-2024 NoteHNO ID: [id number] Author: REGINALDO BURNETT MD Service: ? Author Type: Physician Type: Progress Notes Filed: 05/31/2024 15:45 Note Text: This note was created using NoteWriter. Yifan Helmhak is a 64 year old female. In February was flared Given celebrex 200 mg bid Helped But then once a day and not working In February was hurting all over Hurt to touch Was swollen at ankle jt Could not wear shoes With celebrex was better Gaining wt and distress Never been this heavy 50 lbs since RA diagnosis I am still in pain * I am down Does not want to be living like this Health Lot of pain Most of pain is in back Patients rates the pain in a scale of 1-10 as: 10 Lumbar radiculopathy Shoots and russell Pain from the lower back is radiating to both buttocks and down the posterior thighs. Cannot be sitting long Cannot be standing > 10 min RFNA planned Does not want stimulator Left hip shooting pain in the groin It is hurting Left leg is weak 2016 was replaced Gen all over body Pain I am stiff all day long Review of Systems Objective BP 151/80 Pulse 68 Temp 37.1 ?C (98.7 ?F) Ht 174 cm (5' 8.5) Wt 95.9 kg (211 lb 6.4 oz) LMP 08/04/2008 BMI 31.68 kg/m? Physical Exam Vitals reviewed. Constitutional: General: She is not in acute distress. Appearance: Normal appearance. She is not ill-appearing, toxic-appearing or diaphoretic. Cardiovascular: Rate and Rhythm: Normal rate and [...] Normal. Cervical back: No rigidity or tenderness. Decreased range of motion. Thoracic back: Decreased range of motion. Lumbar back: Decreased range of motion. Right hip: Normal. Left hip: Normal. Right knee: Normal. Left knee: Normal. Right lower leg: No edema. Left lower leg: No edema. Right ankle: Normal. Left ankle: Normal. Right foot: Normal. Left foot: Normal. Comments: Dip pip enlargement 1st cmc enlargement Knee crepitus bilateral Tenderness diffuse MTP tender bilateral shoulder replacement Decreased range of motion bilateral hip replacement Decreased range of motion Lymphadenopathy: Cervical: No cervical adenopathy. Skin: Findings: No rash. Neurological: Mental Status: She is alert. Assessment and Plan First visit 02/07/23 Not seen rheum before 02/07/23 Plans to se pain mgt RA ( 03/25 wrist only involved ) 2020 Hep C neg 2013 Hep B S Ab ) 2023 Hep B s ag neg 2020 thryoglobulin ab neg 2022 CCP 81 unit, R 29 SANIYA SSA SSB neg esr 17 crp normal uric 7.2022 IgA, IgG Transglutaminase Ab: neg, IgA (mg/dl): 235 2023 left foot xr : Osteoarthritis, most pronounced at the first MCP joint with severe degenerative change. (( 02/23 dry mouth med related 2022 note, no saliva gland swelling) 02/23 exam consistent with Fibromyalgia + possible Dercum + gen OA + bilateral wrist tenderness ) ((02/23 started with pain 1994, blamed it on sport, quit playing sports, volley ball and soft ball played till 38 )) ( Partial improvement with prednisone when used for COVID partial improvement ) TT Sulfa allergic kid 04/04/23 plaquenil 200 mg bid 02/09/23 (( only used one months )) 05/26/2024 do not use MTX 10 mg (04/04/23 started) (( only used one months and quit ) . Mtx 15 mg started 05/26/2024 see PA in 6 week, I will see visit after that . Fibromyalgia component severe, hold at 15 mg dose at present. Drug and disease monitoring 01/23 vit B12 303 10/26 cbc dif tsh cmp hgAic 5.8 high 03/2024 elect normal cbc diff normal 05/27 CMP alk phos 152.. (prior to starting mtx ) monitor 04/25 vit d [address] 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 Subjective Kristina Bruch is a 64 year old female. In February was flared Given celebrex 200 mg bid Helped But then once a day and not working In February was hurting all over Hurt to touch Was swollen at ankle jt Could not wear shoes With celebrex was better Gaining wt and distress Never been this heavy 50 lbs since RA diagnosis I am still in pain * I am down Does not want to be living like this Health Lot of pain Most of pain is in back Patients rates the pain in a scale of 1-10 as: 10 Lumbar radiculopathy Shoots and russell Pain from the lower back is radiating to both buttocks and down the posterior thighs. Cannot be sitting long Cannot be standing > 10 min RFNA planned Does not want stimulator Left hip shooting pain in the groin It is hurting Left leg is weak 2016 was replaced Gen all over body Pain I am stiff all day long Review of Systems Objective BP 151/80 Pulse 68 Temp 37.1 C (98.7 F) Ht 174 cm (5' 8.5) Wt 95.9 kg (211 lb 6.4 oz) LMP 08/04/2008 BMI 31.68 kg/m Physical Exam Vitals reviewed. Constitutional: General: She is not in acute distress. Appearance: Normal appearance. She is not ill-appearing, toxic-appearing or diaphoretic. Cardiovascular: Rate and Rhythm: Normal rate and [...] Normal. Cervical back: No rigidity or tenderness. Decreased range of motion. Thoracic back: Decreased range of motion. Lumbar back: Decreased range of motion. Right hip: Normal. Left hip: Normal. Right knee: Normal. Left knee: Normal. Right lower leg: No edema. Left lower leg: No edema. Right ankle: Normal. Left ankle: Normal. Right foot: Normal. Left foot: Normal. Comments: Dip pip enlargement 1st cmc enlargement Knee crepitus bilateral Tenderness diffuse MTP tender bilateral shoulder replacement Decreased range of motion bilateral hip replacement Decreased range of motion Lymphadenopathy: Cervical: No cervical adenopathy. Skin: Findings: No rash. Neurological: Mental Status: She is alert. Assessment and Plan First visit 02/07/23 Not seen rheum before 02/07/23 Plans to se pain mgt RA ( 03/25 wrist only involved ) 2020 Hep C neg 2013 Hep B S Ab ) 2020 thryoglobulin ab neg 2022 CCP 81 unit, R 29 SANIYA SSA SSB neg esr 17 crp normal uric 7.1, 2022 IgA, IgG Transglutaminase Ab: neg, IgA (mg/dl): 235 2023 left foot xr : Osteoarthritis, most pronounced at the first MCP joint with severe degenerative change. (( 02/23 dry mouth med related 2022 note, no saliva gland swelling) 02/23 exam consistent with Fibromyalgia + possible Dercum + gen OA + bilateral wrist tenderness ) ((02/23 started with pain 1994, blamed it on sport, quit playing sports, volley ball and soft ball played till )) ( Partial improvement with prednisone when used for COVID partial improvement ) TT Sulfa allergic kid 04/04/23 plaquenil 200 mg bid 02/09/23 (( only used one months )) 05/26/2024 do not use MTX 10 mg (04/04/23 started) (( only used one months and quit ) . Mtx 15 mg started 05/26/2024 see PA in 6 week, I will see visit after that . Fibromyalgia component severe, hold at 15 mg dose at present. Drug and disease monitoring 01/23 vit B12 303 10/26 cbc dif tsh cmp hgAic 5.8 high 03/2024 elect normal cbc diff normal 04/25 vit d [address] 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 2022 bilateral carotid doppler normal HUBER ( CPAP getting reset ) 02/07/23 Post COVID dyspnea (05/24 COVID ) Pulm nodule 2021 CT chest : stable 6 mm solid nodule abutting the pleural surface in the right lung, series 6 image 80. A calcified granuloma is again noted in the right upper lung. 2023 CT chest : Stable 6 mm subpleural nodule within the anterior segment of the right upper lobe. Sequela of remote granulomatous disease. TT Seeing pulm Hydrocephalus Migraines 2021 MRI [...] 2021 Colonoscopy normal 05/28/23 Get DXA done. Pending ordered agan. Ambulation issue Cane use : off and [...] ( Failed cym lyrica and gabapentin ) Mobic 15 2020 mild relief 02/07/23 Flexeril 10 mg tid 2022 started some relief, dry mouth tired 02/23 Prozac 40 mg bid 2021 no help pain 2023 quit 05/26/2024 ?? 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 Pt denies knowing of an appt with [facility]? Kena Kim MA [facility]09-12-2024 Miscellaneous Notes* Telephone Encounter - Kena Kim MA - 05/15/2024 4:30 PM EDT Please review pt message. Pt denies knowing of an appt with [facility]? Kena Kim MA * Telephone Encounter - Wilbur Paez MA - 05/13/2024 11:01 AM EDT Upon review of the chart. Patient was seen today for her UTI symptoms. Wilbur Paez MA documented in this encounterOhio[facility] Telephone encounter Note * Telephone Encounter - Allie Shelley MA - 05/14/2024 11:58 AM EDT Patient given results and verbalized understanding of instructions given. Allie Shelley MA [facility]09-11-2024 Miscellaneous Notes* Telephone Encounter - Allie Shelley MA - 05/14/2024 11:58 AM EDT Patient given results and verbalized understanding of instructions given. Allie Shelley MA * Telephone Encounter - Brielle Irby PA - 05/14/2024 11:25 AM EDT Please let patient know urine culture revealed no UTI. She needs to follow-up with PCP to ensure resolution of blood in the urine. documented in this encounterOhio[facility] Telephone encounter Note * Telephone Encounter - Brielle Irby PA - 05/14/2024 11:25 AM EDT Please let patient know urine culture revealed no UTI. She needs to follow-up with PCP to ensure resolution of blood in the urine. [facility] Work Phone: [phone]) 935-745409-10-2024 Telephone encounter Note* Telephone Encounter - Wilbur Paez MA - 05/13/2024 11:01 AM EDT Upon review of the chart. Patient was seen today for her UTI symptoms. Wilbur Paez MA [facility]-10-[address] [facility] History of Present illness Narrative* Shiloh Paez APRN.[employer] - 05/13/2024 7:11 AM EDT CC: Patient presents with: Urinary Frequency: strong urine odor x 2 weeks HPI Kristina Burch is a 64 year old female who presents with complaint of possible UTI. These symptomshave been present for 14 days. Associated symptoms: frequency, foul smelling urine, and abnormal vaginal discharge Denies: fever, chills, sweats, abdominal pain, and flank pain Treatments: nothing The ROS was otherwise negative. PMH, Medications, labs, allergies, and recent past visits with PCP were reviewed and updated as able. PHYSICAL EXAM: LMP 08/04/2008 General: Well appearing and alert CV: Regular rate and rhythm without obvious murmur Lungs: clear to auscultation bilaterally Back: straight and symmetric Abdomen: soft, nontender, nondistended : Slight redness and erythema noted in the folds. No other abnormalities noted stack clerk was present upon swabs. PAST MEDICAL HISTORY No date: Abnormal mammogram 06/16/2021: Acute respiratory disease due to COVID-19 virus Comment: Seeing Dr. Scott Quarles 04/06/2022: Advance directive discussed with patient Comment: Discussed 04/06/2022 01/31/2013: Arthritis of knee, left 01/19/2016: Arthritis of left hip 10/10/2023: Arthritis of left shoulder region 07/04/2017: Ascending aorta dilatation (HCC) Comment: 04/19/16: 4.2 cm 06/11/17: 4.4 cm 06/24/18 4.4 cm 05/27/2008: Cervical high risk human papillomavirus (HPV) DNA test positive 06/01/2021: Chronic anxiety 12/09/2018: Chronic diarrhea 09/06/2021: Chronic hypoxemic respiratory failure (HCC) Comment: resolved 11/29/2022: Chronic pain syndrome Comment: Seeing Dr. Bustillos as of 11/27/2022 06/01/2021: Chronic prescription benzodiazepine use 07/24/2018: DDD (degenerative disc disease), lumbar Comment: Seeing Dr. Jose Raul Machuca 04/24/2023: Dependence on nocturnal oxygen therapy Comment: Seeing Pulm 04/24/2023: Elevated hemoglobin A1c 04/06/2022: Essential tremor 04/06/2022: Ex-smoker No date: Excessive or frequent menstruation Comment: Heavy periods 02/26/2014: Fibromyalgia 04/24/2023: Gastroesophageal reflux disease without esophagitis No date: Hemorrhage of gastrointestinal tract, unspecified 06/13/2021: History of COVID-19 Comment: 05/202102/09/2003: Hydrocephalus, adult ([facility]) 01/22/2019: Hypertension, essential 04/06/2022: Living will on file Comment: DPA: Dustin () 01/24/2022: Lung nodule Comment: Seeing pulm 07/26/2021: Migraines Comment: Used to see neuro and was getting Botox 2007: Mild dysplasia of cervix 01/20/2016: Mixed hyperlipidemia 04/06/2016: Nonrheumatic mitral valve disorder, unspecified 10/13/2016: Obstructive sleep apnea Comment: DME - [facility] 2018: Plantar fasciitis 01/24/2022: Post-COVID chronic dyspnea Comment: Seeing Pulm: Dr. Scott Quarles No date: Postcoital bleeding 06/13/2021: Primary insomnia 11/15/2022: Primary osteoarthritis of both knees 04/06/2022: Primary osteoarthritis of both shoulders Comment: [facility] 04/19/2007: Rectocele 07/13/2016: Renal cyst 04/24/2023: Rheumatoid arthritis (HCC) Comment: Seeing Rheum. No date: Right knee pain 11/12/2017: Situational mixed anxiety and depressive disorder 11/15/2022: Spinal stenosis, lumbar region, without neurogenic claudication 2018: Thoracic aortic aneurysm without rupture (HCC) 04/19/2007: Urge incontinence 07/23/2012: Vitamin D deficiency 06/13/2021: Well adult exam Comment: Last done: 06/13/2021 PAST SURGICAL HISTORY 1987: APPENDECTOMY 08/19/2013: COLONOSCOPY 09/19/2019: COLONOSCOPY FLX DX W/COLLJ SPEC WHEN PFRMD Comment: Colonoscopy 05/05/2022: COLONOSCOPY SCREENING Comment: repeat in 5 years 03/15/2009: COLONOSCOPY W/BIOPSY SINGLE/MULTIPLE Comment: minimal colitis-repeat in No date: COLPOSCOPY CERVIX UPPER/ADJACENT VAGINA Comment: Colposcopy 2002: DILATION & CURETTAGE DX&/THER NONOBSTETRIC Comment: Dilation & curettage 05/05/2022: EGD Comment: mild gastritis 09/19/2019: ESOPHAGOGASTRODUODENOSCOPY TRANSORAL DIAGNOSTIC Comment: EGD 1989&1991: LIG/TRNSXJ FLP TUBE ABDL/VAG APPR UNI/BI Comment: Tubal ligation 2000: PAST SURGICAL HISTORY OF Comment: BRAIN SURG/HYDROCEPHALIS - 2000: PAST SURGICAL HISTORY OF Comment: REPAIR TENNIS ELBOW 09/07/06, 05/10,11/08: PAST SURGICAL HISTORY OF Comment: repair rotator cuff/tendon rt. shoulder 10/2017: PAST SURGICAL HISTORY OF Comment: ex lap, ALFRED PROCEDURE , COLOSTOMY 06/2022: PAST SURGICAL HISTORY OF; Right Comment: Reverse shoulder surgery 10/26/2017: PICC LINE INSERT/CONSULT Comment: 04/05/2020: REPAIR FIRST ABDOMINAL WALL HERNIA Comment: Hernia repair, incisional 06/10/2015: STEREOTACTIC LOCALIZATION BREAST BIOPSY Comment: right 06/18/2023: TOTAL HIP REPLACEMENT; Right 1989 and 1991: TUBAL LIGATION HX 09/04/2008: VAGINAL HYSTERECTOMY UTERUS 250 GM/< Comment: Hysterectomy, vaginal/TVT ALLERGIES Dilaudid [Hydromorphone (Pf)], Sulfa (Sulfonamide Antibiotics), Ultram [Tramadol Hcl], Oxycontin [Oxycodone Hcl], Relafen [Nabumetone], and Sertraline MEDICATIONS cyclobenzaprine (FLEXERIL) 10 mg tablet Take 1 tablet by mouth three times a day as needed (for fibro pain). hydroCHLOROthiazide 25 mg tablet Take 1 tablet by mouth once daily. albuterol HFA (VENTOLIN HFA) 90 mcg/actuation inhaler Inhale 2 Puffs as instructed every 4 hours asneeded for wheezing/shortness of breath. atorvastatin (LIPITOR) 40 mg tablet Take 1 tablet by mouth daily at bedtime. For cholesterol. FLUoxetine (PROZAC) 40 mg capsule Take 1 capsule by mouth two times a day. losartan (COZAAR) 100 mg tablet Take 1 tablet by mouth once daily. traZODone (DESYREL) 100 mg tablet Take 1 tablet by mouth daily at bedtime. hydrOXYzine HCl (ATARAX) 10 mg tablet Take 1 tablet by mouth three times a day as needed. clonazePAM (KLONOPIN) 0.5 mg tablet Take at bedtime for insomnia and RLS. melatonin 3 mg tablet Take 1 tablet at ~8PM nightly (if miss the dose, skip until the next day). folic acid 1 mg tablet Take 1 tablet by mouth once daily. meloxicam (MOBIC) 15 mg tablet Take 1 tablet by mouth once daily. Take with food. azelastine (ASTELIN, ASTEPRO) 0.1% nasal spray Use 2 Sprays in each nostril twice daily as needed. metoprolol succinate ER (TOPROL XL) 50 mg 24 hr tablet Take 2 tablets by mouth once daily. CPAP Lifetime supplies for AutoPAP 6-11 cm H20 including mask, heated tubing, humidity, filters. Fax 30 day download report to [phone] to assess residual ahi. vit C-Zn gluc-herbal no.325 (ELDERBERRY ZINC VIT C) 90-15 mg lozg Use 1 Lozenge as instructed twicedaily. calcium carbonate (CALTRATE 600 ORAL) Take 1 [...] Social History Tobacco Use Smoking status: Former Current packs/day: 0.00 Average packs/day: 0.1 packs/day for 2.0 years (0.2 ttl pk-yrs) Types: Cigarettes Start date: 04/26/2008 Quit date: 04/26/2010 Years since quittin.0 Smokeless tobacco: Never Vaping Use Vaping status: Never Used Substance Use Topics Alcohol use: Yes Comment: 1-2 times a week at most: wine Drug use: No ASSESSMENT/PLAN: 1. Urinary frequency - ICD9: 788.41, ICD10: R35.0 (primary diagnosis) - UA DIP, URINE (POC) - URINE CULTURE - NITROFURANTOIN MONOHYDRATE & MACROCRYSTAL 100 MG ORAL CAP 2. Vaginal discharge - ICD9: 623.5, ICD10: N89.8 - BACTERIAL VAGINOSIS NAAT - LONA/TRICHOMONAS NAAT 3. Vaginal itching - ICD9: 698.1, ICD10: N89.8 - NYSTATIN 100,000 UNIT/GRAM TOPICAL CREAM If urine culture comes back negative patient can stop the Macrobid. If anything else comes back positive please treat accordingly. Prescription instructions reviewed with patient as applicable. Potential red flag symptoms discussed with the patient. Reviewed appropriate action plan to take if red flag symptoms occur. Patient agreeable to treatment plan. Shiloh Paez APRN.[employer] documented in this encounterOhio[facility]09-04-2024 Telephone encounter Note * Telephone Encounter - Karmen Mcgraw RN - 05/07/2024 2:57 PM EDT Patient checking to see if pcp has opening today. Reports she is having UTI s/s: urgency, frequency, odor, and would like to have urine test. No openings in pcp office today. Patient states she will stop in at [facility] for urine test. [facility]09-04-2024 Miscellaneous Notes* Telephone Encounter - Karmen Mcgraw RN - 05/07/2024 2:57 PM EDT Patient checking to see if pcp has opening today. Reports she is having UTI s/s: urgency, frequency, odor, and would like to have urine test. No openings in pcp office today. Patient states she will stop in at [facility] for urine test. documented in this encounterOhio[facility]08-07-2024 Telephone encounter Note * Telephone Encounter - Claribel Mason LPN - 04/09/2024 7:13 AM EDT Prescription Refill Information The patient has been identified by name and date of : Yes Caregiver verified no other encounters exist for this prescription request: Yes Caregiver confirmed with patient/requestor that no other refills are due, in the near future, with this provider at this time: Yes The last office visit in the department: 03/25/24 Does the patient have a future office visit with this provider/department: Yes Requested Prescriptions Pending Prescriptions Disp Refills cyclobenzaprine (FLEXERIL) 10 mg tablet 90 tablet 5 Sig: Take 1 tablet by mouth three times a day as needed (for fibro pain). Claribel Mason LPN April 09, 2024 7:14 AM [facility]08-07-2024 Miscellaneous Notes* Telephone Encounter - Claribel Mason LPN - 04/09/2024 7:13 AM EDT Prescription Refill Information The patient has been identified by name and date of : Yes Caregiver verified no other encounters exist for this prescription request: Yes Caregiver confirmed with patient/requestor that no other refills are due, in the near future, with this provider at this time: Yes The last office visit in the department: 03/25/24 Does the patient have a future office visit with this provider/department: Yes Requested Prescriptions Pending Prescriptions Disp Refills cyclobenzaprine (FLEXERIL) 10 mg tablet 90 tablet 5 Sig: Take 1 tablet by mouth three times a day as needed (for fibro pain). Claribel Mason LPN April 09, 2024 7:14 AM documented in this encounterOhiohealth [facility]07-29-2024 History of Present illness Narrative* Claribel Mason LPN - 03/31/2024 2:30 PM EDT Scan on 03/31/2024 1:22 PM by ProviderKarolina PA-C: Consultation - Cardiology Scan on 03/31/2024 1:11 PM by ProviderKarolina PA-C: Chemistry documented in this encounterOhiohealth [facility]07-25-2024 Telephone encounter Note * Telephone Encounter - Claribel Mason LPN - 03/27/2024 12:39 PM EDT Pt notified of same. Claribel Mason LPN [facility]07-25-2024 Miscellaneous Notes* Telephone Encounter - Claribel Mason LPN - 03/27/2024 12:39 PM EDT Pt notified of same. Claribel Mason LPN * Telephone Encounter - Geena Rosen MA - 03/27/2024 12:10 PM EDT Left message for patient to return call to office Geena Rosne MA * Telephone Encounter - Selam Argueta APRN.VICKY - 03/27/2024 11:55 AM EDT Please let patient know her labs are normal. Her vaginal swab was negative. documented in this encounterOhio[facility]07-25-2024 Telephone encounter Note * Telephone Encounter - Geena Rosen MA - 03/27/2024 12:10 PM EDT Left message for patient to return call to office Geena Rosen MA [facility]07-25-[facility]24 Telephone encounter Note* Telephone Encounter - Selam Argueta APRN.CNP - 03/27/2024 11:55 AM EDT Please let patient know her labs are normal. Her vaginal swab was negative. [facility] History of Present illness Narrative* Selam Argueta APRN.CNP - 03/25/2024 3:09 PM EDT Chief Complaint Patient presents with: Edema: Swelling in legs, feet and hands X 2 months HPI Kristina Burch is a 63 year old female who presents here today for Above Complaints.. Patient presents for continued swelling in legs and feet. Patient was started on HCTZ 02/13 and reports swelling had improved but is now getting worse again. Follows with cardiology but has not had appt in some time and missed appt on 03/18. Past medical history, appointments, medications, allergies reviewed. Previous Medical History PAST MEDICAL HISTORY Diagnosis Date Abnormal mammogram Acute respiratory disease due to COVID-19 virus 06/16/[address] Scott Quarles Advance directive discussed with patient 04/06/2022 Discussed 04/06/2022 Arthritis of knee, left 01/31/2013 Arthritis of left hip 01/19/2016 Arthritis of left shoulder region 10/10/2023 Ascending aorta dilatation (HCC) 07/04/2017 04/19/16: 4.2 cm 06/11/17: 4.4 cm 06/24/18 4.4 cm Cervical high risk human papillomavirus (HPV) DNA test positive 05/27/2008 Chronic anxiety 06/01/2021 Chronic diarrhea 12/09/2018 Chronic hypoxemic respiratory failure (HCC) 09/06/2021 resolved Chronic pain syndrome 11/29/[address] Bustillos as of 11/27/2022 Chronic prescription benzodiazepine use 06/01/2021 DDD (degenerative disc disease), lumbar 07/24/[address] Jose Raul Machuca Dependence on nocturnal oxygen therapy 04/24/2023 Seeing Pulm Elevated hemoglobin A1c 04/24/2023 Essential tremor 04/06/2022 Ex-smoker 04/06/2022 Excessive or frequent menstruation Heavy periods Fibromyalgia 02/26/2014 Gastroesophageal reflux disease without esophagitis 04/24/2023 Hemorrhage of gastrointestinal tract, unspecified History of COVID-19 06/13/202105/2021 Hydrocephalus, adult ([facility]) 02/09/2003 Hypertension, essential 01/22/2019 Living will on file 04/06/2022 DPA: Dustin () Lung nodule 01/24/2022 Seeing pulm Migraines 07/26/2021 Used to see neuro and was getting Botox Mild dysplasia of cervix 2006 Mixed hyperlipidemia 01/20/2016 Nonrheumatic mitral valve disorder, unspecified 04/06/2016 Obstructive sleep apnea 10/13/2016 DME - [facility] Plantar fasciitis 2018 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 Scott Quarles Postcoital bleeding Primary insomnia 06/13/2021 Primary osteoarthritis of both knees 11/15/2022 Primary osteoarthritis of both shoulders 04/06/2022 Seeing [facility] Rectocele 04/19/2007 Renal cyst 07/13/2016 Rheumatoid arthritis (HCC) 04/24/2023 Seeing Rheum. Right knee pain Situational mixed anxiety and depressive disorder 11/12/2017 Spinal stenosis, lumbar region, without neurogenic claudication 11/15/2022 Thoracic aortic aneurysm without rupture ([facility]) 2018 Urge incontinence 04/19/2007 Vitamin D deficiency [...] mg capsule Take 1 capsule by mouth two times a day. losartan (COZAAR) 100 mg tablet Take 1 tablet by mouth once daily. traZODone (DESYREL) 100 mg tablet Take 1 tablet by mouth daily at bedtime. hydrOXYzine HCl (ATARAX) 10 mg tablet Take 1 tablet by mouth three times a day as needed. clonazePAM (KLONOPIN) 0.5 mg tablet Take at bedtime for insomnia and RLS. hydroCHLOROthiazide 12.5 mg capsule Take 1 capsule by mouth once daily. melatonin 3 mg tablet Take 1 tablet at ~8PM nightly (if miss the dose, skip until the next day). folic acid 1 mg tablet Take 1 [...] humidity, filters. Fax day download report to [phone] to assess residual ahi. vit C-Zn gluc-herbal no.325 (ELDERBERRY ZINC VIT C) 90-15 mg lozg Use 1 Lozenge as instructed twicedaily. calcium carbonate (CALTRATE 600 ORAL) Take 1 [...] REVIEW OF SYSTEMS SEE HPI EXAM: BP 120/72 Pulse 71 Resp 16 Wt 96.2 kg (212 lb) LMP 08/04/2008 BMI 31.31 kg/m General Appearance: Well appearing, alert, in no acute distress, well-hydrated, well nourished.. Lungs: Lungs clear to auscultation. No wheezing, rhonchi, rales.. Heart: RRR without murmur, gallop, or rubs. No ectopy. Extremities: Pulses: 2+, Edema: 2-3+pitting edema. Pelvic:Deferred Health Maintenance List RSV Vaccine(1 - 1-dose 60+ series) Never done BP Controlled (<130/80) due on 06/13/2022 Covid-19 Vaccine( - 2022- season) Never done Advance Directive Discussion Never done Mammogram Screening due on 06/08/2024 Shingrix Vaccine(1 of 2) due on 04/24/2024 Influenza Vaccine(1) due on 05/04/2024 Annual PCP Team Chronic Disease Visit due on 03/13/2025 Diabetes Screening due on 02/13/2027 Colorectal Cancer Screening due on 05/05/2027 Lipid Screening due on 10/09/2027 DTaP,Tdap,Td Vaccine(5 - Td or Tdap) due on 03/12/2030 Bone Density Screening Completed Hepatitis C Screening Completed Pneumococcal Vaccine: 65+ Completed Cervical Cancer Screening Discontinued HIV Screening Discontinued Data reviewed Last 5 Encounter BP Readings: Date: BP: 03/25/2024 120/72 03/13/2024 126/81 02/25/2024 129/76 02/14/2024 142/80 01/03/2024 144/78 ASSESSMENT/PLAN: 1. Hypertension, essential - ICD9: 401.9, ICD10: I10 (primary diagnosis) - Controlled - Continue current medications - Increase hydrochlorothiazide - Recommend home blood pressure monitoring, to bring results to next visit - Encouraged sodium restriction, DASH or Mediterranean diet - Recommend regular aerobic exercise - HYDROCHLOROTHIAZIDE 25 MG TABLET 2. Leg swelling - ICD9: 729.81, ICD10: M79.89 - HYDROCHLOROTHIAZIDE 25 MG TABLET - BASIC METABOLIC PANEL 3. Vaginal odor - ICD9: 625.8, ICD10: N89.8 - UA DIP, URINE (POC)-small blood, otherwise negative. - LONA/TRICHOMONAS NAAT - BACTERIAL VAGINOSIS NAAT Called gabriel WELLS made for 03/31 at 1030 with Too Anna NP for follow up. Patient given appt information which she was amenable to. Selam Argueta APRN.[employer] documented in this encounterOhio[facility] Telephone encounter Note * Telephone Encounter - Wilbur Paez MA - 03/24/2024 11:53 AM EDT Selam I did schedule for Kristina to see you tomorrow. Please see notes. I did make that appointment 40 minutes. I then called her to let her know about the appointment. She also mentioned some urine odor and some frequency. Just a heads up. Wilbur Paez MA [facility]07-22-2024 Miscellaneous Notes* Telephone Encounter - Wilbur Paez MA - 03/24/2024 11:53 AM EDT Selam I did schedule for Kristina to see you tomorrow. Please see notes. I did make that appointment 40 minutes. I then called her to let her know about the appointment. She also mentioned some urine odor and some frequency. Just a heads up. Wilbur Paez MA documented in this encounterOhio[facility]07-22-[facility]24 Telephone encounter Note * Telephone Encounter - Selam Argueta APRN.CNP - 03/24/2024 10:55 AM EDT Opened in error [facility] Work Phone: [phone]) 347-638107-22-2024 Miscellaneous Notes* Telephone Encounter - Selam Argueta APRN.CNP - 03/24/2024 10:55 AM EDT Opened in error documented in this encounterOhiohealth [facility]07-16-2024 Telephone encounter Note * Telephone Encounter - Claribel Mason LPN - 03/18/2024 11:08 AM EDT Patient notified of results and provider's instructions. Patient verbalizes understanding. Claribel Mason LPN [facility]07-16-[facility]24 Miscellaneous Notes* Telephone Encounter - Claribel Mason LPN - 03/18/2024 11:08 AM EDT Patient notified of results and provider's instructions. Patient verbalizes understanding. Claribel Mason LPN * Telephone Encounter - Edwina Khoury PA-C - 03/18/2024 10:30 AM EDT Let patient know that xray does not show evidence of fracture. She does have severe arthritis in her big toe. We can have her see podiatry if she continues to have pain. But the n/t she is experiencing may be coming from her back. Edwina Khoury PA-C documented in this encounterOhio[facility]07-16-2024 Telephone encounter Note * Telephone Encounter - Edwina Khoury PA-C - 03/18/2024 10:30 AM EDT Let patient know that xray does not show evidence of fracture. She does have severe arthritis in her big toe. We can have her see podiatry if she continues to have pain. But the n/t she is experiencing may be coming from her back. Edwina Khoury PA-C [facility]07-11-2024 History of Present illness Narrative* Mira Bateman RT(R) - 03/13/2024 8:20 AM EDT Radiology Service Progress Note PATIENT NAME: rKistina Burch DATE OF SERVICE: March 13, 2024 TIME: 8:23 AM PATIENT IDENTITY VERIFICATION COMPLETED USING TWO (2) IDENTIFIERS: Name and Date of confirmedby patient verbally. FALL SCREENING: Has the patient had 2 falls in the last year or 1 fall with injury or currently using an Ambulatory Assistive Device (Walker, Cane, Wheelchair, Crutches, etc.)? No PATIENT GENDER DATA: Female. status: : No status: NO. PATIENT RELEVANT IMPLANT DATA REVIEWED: Not Applicable PATIENT PRESENTS WITH AN IMPLANTABLE OR ATTACHED CLOTH TESTER QUALITY: No RADIOLOGY DEPARTMENT: General X-ray: Exam(s) Completed: Lower Extremity X- Ray(s): Foot, Left PERIPHERAL IV DATA: Not applicable SIGNED BY: RT Yeni(R) March 13, 2024 8:23 AM documented in this encounterOhiohealth [facility]07-11-2024 History of Present illness Narrative* Edwina Khoury PA-C - 03/13/2024 7:13 AM EDT Chief Complaint Patient presents with: Recheck: Blood pressure HPI Kristina Burch is a 63 year old female who presents here today for BP recheck. At patient's visit last month, bp was elevated. Patient was started on HCTZ. She is tolerating medication well. Doesn't check bp at home- cannot find her BP cuff since she moved. Reports that she kicked a brick wall about a month ago and doesn't feel like the toe has healed. She did not have xrays done. Reports n/t in toe. Concerned about her weight. States she only eats once a day and has been more active. Decided she would like to get an nonsurgical opinion from [facility] in [place] for her back. Requesting consult. Past medical history, appointments, medications, allergies reviewed. Previous Medical History PAST MEDICAL HISTORY Diagnosis Date Abnormal mammogram Acute respiratory disease due to COVID-19 virus 06/16/[address] Scott Quarles Advance directive discussed with patient 04/06/2022 Discussed 04/06/2022 Arthritis of knee, left 01/31/2013 Arthritis of left hip 01/19/2016 Arthritis of left shoulder region 10/10/2023 Ascending aorta dilatation (HCC) 07/04/2017 04/19/16: 4.2 [...] or frequent menstruation Heavy periods Fibromyalgia 02/26/2014 Gastroesophageal reflux disease without esophagitis 04/24/2023 Hemorrhage of gastrointestinal tract, unspecified History of COVID-19 06/13/202105/2021 Hydrocephalus, adult ([facility]) 02/09/2003 Hypertension, essential 01/22/2019 Living will on file 04/06/2022 DPA: Dustin () Lung nodule 01/24/2022 Seeing pulm Migraines 07/26/2021 Used to see neuro and was getting Botox Mild dysplasia of cervix 2006 Mixed hyperlipidemia 01/20/2016 Nonrheumatic mitral valve disorder, unspecified 04/06/2016 Obstructive sleep apnea 10/13/2016 DME - [facility] Plantar fasciitis 2018 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 Scott Quarles Postcoital bleeding Primary insomnia 06/13/2021 Primary osteoarthritis of both knees 11/15/2022 Primary osteoarthritis of both shoulders 04/06/2022 [facility] Rectocele 04/19/2007 Renal cyst 07/13/2016 Rheumatoid arthritis (HCC) 04/24/2023 Seeing Rheum. Right knee pain Situational mixed anxiety and depressive disorder 11/12/2017 Spinal stenosis, lumbar region, without neurogenic claudication 11/15/2022 Thoracic aortic aneurysm without rupture ([facility]) 2018 Urge incontinence 04/19/2007 Vitamin D deficiency [...] on File Prior to Visit Medication Sig hydrOXYzine HCl (ATARAX) 10 mg tablet Take 1 tablet by mouth three times a day as needed. clonazePAM (KLONOPIN) 0.5 mg tablet Take at bedtime for insomnia and RLS. hydroCHLOROthiazide 12.5 mg capsule Take 1 capsule by mouth once daily. atorvastatin (LIPITOR) 40 mg tablet Take 1 tablet by mouth daily at bedtime. For cholesterol. losartan (COZAAR) 100 mg tablet Take 1 tablet by mouth once daily. traZODone (DESYREL) 100 mg tablet Take 1 tablet by mouth daily at bedtime. melatonin 3 mg tablet Take 1 tablet at ~8PM nightly (if miss the dose, skip until the next day). folic acid 1 mg tablet Take 1 tablet by mouth once daily. FLUoxetine (PROZAC) 40 mg capsule Take 1 capsule by mouth twice daily. meloxicam (MOBIC) 15 mg tablet Take [...] filters. Fax 30 day download report to [phone] to assess residual ahi. vit C-Zn gluc-herbal no.325 (ELDERBERRY ZINC VIT C) 90-15 mg lozg Use 1 Lozenge as instructed twicedaily. calcium carbonate (CALTRATE 600 ORAL) Take 1 [...] 04/26/2010 Years since quittin.8 Smokeless tobacco: Never Vaping Use Vaping Use: Never used Substance Use Topics Alcohol use: Yes Comment: 1-2 times a week at most: wine Drug use: No Review of Symptoms REVIEW OF SYSTEMS See hpi EXAM: BP 126/81 (BP Site: Left Arm, BP Position: Sitting, BP Cuff Size: Regular Adult) Pulse 86 Temp 36.2 C (97.1 F) Resp 18 Wt 95.3 kg (210 lb) LMP 08/04/2008 SpO2 97% BMI 31.01 kg/m Last 6 Encounter Wt Readings: Date: Wt: 03/13/2024 95.3 kg (210 lb) 02/25/2024 94.4 kg (208 lb 3.2 oz) 02/14/2024 95.7 kg (211 lb) 01/03/2024 94.8 kg (208 lb 15.9 oz) 12/10/2023 94.2 kg (207 lb 10.8 oz) 10/10/2023 90.3 kg (199 lb) General Appearance: Well appearing, alert, in no acute distress, well-hydrated, well nourished.. Musculoskeletal: No joint swelling, deformity, or tenderness. Peripheral Pulses: Normal. Health Maintenance List RSV Vaccine(1 - 1-dose 60+ series) Never done BP Controlled (<130/80) due on 06/13/2022 Covid-19 Vaccine(2022- season) Never done Advance Directive Discussion Never done Mammogram Screening due on 06/08/2024 Shingrix Vaccine(1 of 2) due on 04/24/2024 Influenza Vaccine(1) due on 05/04/2024 Annual PCP Team Chronic Disease Visit due on 03/13/2025 Diabetes Screening due on 02/13/2027 Colorectal Cancer Screening due on 05/05/2027 Lipid Screening due on 10/09/2027 DTaP,Tdap,Td Vaccine(5 - Td or Tdap) due on 03/12/2030 Bone Density Screening Completed Hepatitis C Screening Completed Pneumococcal Vaccine: 65+ Completed Cervical Cancer Screening Discontinued HIV Screening Discontinued Data reviewed ASSESSMENT/PLAN: 1. Hypertension, essential - ICD9: 401.9, ICD10: I10 (primary diagnosis) - Controlled - Continue current medications - Recommend home blood pressure monitoring, to bring results to next visit - Encouraged sodium restriction, DASH or Mediterranean diet - Recommend regular aerobic exercise 2. Chronic anxiety - ICD9: 300.00, ICD10: F41.9 Stable. Refill given - FLUOXETINE 40 MG CAPSULE 3. Situational mixed anxiety and depressive disorder - ICD9: 309.28, ICD10: F43.23 As above - FLUOXETINE 40 MG CAPSULE 4. Screening mammogram, encounter for - ICD9: V76.12, ICD10: Z12.31 - [facility] SCREENING [facility] 5. Spinal stenosis, lumbar region, without neurogenic claudication - ICD9: 724.02, ICD10: M48.061 Will send consult per patient's request - [facility] 6. Foot pain, left - ICD9: 729.5, ICD10: M79.672 Check xray - XR FOOT GENERAL 3V AP/LAT/OBL LEFT 7. Class 1 obesity with body mass index (BMI) of 31.0 to 31.9 in adult, unspecified obesity type, unspecified whether serious comorbidity present - ICD9: 278.00, V85.31, ICD10: E66.9, Z68.31 Discussed importance of proper nutrition. Advised 2-3 meals a day with healthy snacks in between. This will help with energy and moods. From there if still not losing weight, can work on decreasing calories slowly. Follow up in 6 months for wellness. Edwina Khoury PA-C documented in this encounterOhio[facility]07-03-2024 Telephone encounter Note * Telephone Encounter - Claribel Mason LPN - 03/05/2024 1:30 PM EDT Prescription Refill Information The patient has been identified by name and date of : Yes Caregiver verified no other encounters exist for this prescription request: Yes Caregiver confirmed with patient/requestor that no other refills are due, in the near future, with this provider at this time: Yes The last office visit in the department: 02/14/24 Does the patient have a future office visit with this provider/department: Yes Requested Prescriptions Pending Prescriptions Disp Refills hydrOXYzine HCl (ATARAX) 10 mg tablet 60 tablet 1 Sig: Take 1 tablet by mouth three times a day as needed. Claribel Mason LPN March 05, 2024 1:31 PM [facility]07-03-2024 Miscellaneous Notes* Telephone Encounter - Claribel Mason LPN - 03/05/2024 1:30 PM EDT Prescription Refill Information The patient has been identified by name and date of : Yes Caregiver verified no other encounters exist for this prescription request: Yes Caregiver confirmed with patient/requestor that no other refills are due, in the near future, with this provider at this time: Yes The last office visit in the department: 02/14/24 Does the patient have a future office visit with this provider/department: Yes Requested Prescriptions Pending Prescriptions Disp Refills hydrOXYzine HCl (ATARAX) 10 mg tablet 60 tablet 1 Sig: Take 1 tablet by mouth three times a day as needed. Claribel Mason LPN March 05, 2024 1:31 PM documented in this encounterOhiohealth [facility]06-25-2024 Telephone encounter Note * Telephone Encounter - Barbra Villatoro LPN - 02/26/2024 10:52 AM EDT TC to pt with no answer, left VM and sent a MC. Barbra Villatoro LPN [facility]06-25-2024 Miscellaneous Notes* Telephone Encounter - Barbra Villatoro LPN - 02/26/2024 10:52 AM EDT TC to pt with no answer, left VM and sent a MC. Barbra Villatoro LPN * Telephone Encounter - Latrice Parker APRN.CNP - 02/26/2024 9:58 AM EDT She went to pharmacy before I sent the rx. It should be there. Latrice Parker APRN.CNP * Telephone Encounter - Julissa Damon RN - 02/25/2024 1:16 PM EDT Patient calls and states that she just went to [facility] in [place] to hot die picker new prescriptions. Patient notes that pharmacy does not have new prescriptions for sleep or restless leg syndrome.Patient asking if provider can send in prescriptions to pharmacy? Please review and advise, Julissa Damon RN documented in this encounterOhiohealth [facility]06-25-2024 Telephone encounter Note * Telephone Encounter - Latrice Parker APRN.CNP - 02/26/2024 9:58 AM EDT She went to pharmacy before I sent the rx. It should be there. Latrice Parker APRN.CNP [facility]06-24-[facility] Telephone encounter Note* Telephone Encounter - Julissa Damon RN - 02/25/2024 1:16 PM EDT Patient calls and states that she just went to [facility] in [place] to hot die picker new prescriptions. Patient notes that pharmacy does not have new prescriptions for sleep or restless leg syndrome.Patient asking if provider can send in prescriptions to pharmacy? Please review and advise, Julissa Damon RN [facility]06-24-[facility] History of Present illness Narrative* Latrice Parker APRN.CNP - 02/25/2024 10:30 AM EDT Images from the original note were not included. [facility] Follow up/ Established patient visit Date of last visit : 10/01/2023 The following Impression/Plan was copied and pasted from the patient's last [facility] visit on 10/01/23: ASSESSMENT/PLAN: 1. Insomnia, unspecified type - ICD9: 780.52, ICD10: G47.00 (primary diagnosis) 2. 3. 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 Some component of this being behavioral with pt wanting to have similar sleep wake schedule to working 3rd shift, possibleracing thoughts and what appears to be a circadian disorder with a delayed sleep onset and wake up time. Patient initially not wanting to wake up earlier, but explained that in order to get to sleep earlier we need to advance her entire sleep wake schedule. She later agrees. Plan as follows: To advance sleep onset: Take melatonin 3mg at 8PM nightly. To advance your wake up time: Week 1: Set alarm and wake up at 10 AM daily. Week 2: Set alarm and wake up at 9 AM daily. Week 3: Set alarm and wake up at 8 AM dailiy. Avoid naps during the day (including falling asleep before bedtime). Patient agrees with plan and expresses understanding that to correct sleep schedule needs active participation by the patient. Discussed with patient importance of good sleep hygiene. 3. HUBER (obstructive sleep apnea) - ICD9: 327.23, ICD10: G47.33 Current PAP setting appears appropriate with AHI normalized when pt using PAP device. However, patient needs to improve compliance with no use of PAP over the past month. Discussed with patient: the physiology of OSAS, medical conditions associated with OSAS (DM, HTN, CAD, Depression, Stroke, Headache...) and treatment options other than PAP (she would like to continue PAP). Encouraged PAP compliance. Advised patient to avoid activities that could harm self or others when tired/sleepy, including driving and/or operating heavy machinery. Encouraged weight loss, and continued compliance with other medications. Hi Waddell MD Here for follow up for insomnia, delayed sleep phase, HUBER. She reports 2 episodes of insomnia in the past week--only slept 2 hrs each of those nights. Says has trouble falling asleep as well as staying asleep. Goes to bed at 10 PM. Takes 2 hrs to fall asleepafter taking trazodone 100 mg. Wakes 2- 3x in the night due to unknown or urination, varies how longit takes to fall back asleep. Wake up time 7-9 AM, no alarm. No naps. She took melatonin 3 mg for about a month in order to advance her sleep. She had been staying awakeuntil 4 AM prior to that. Feels like suffocating with HUBER. Also on supplemental oxygen at night. Urge to move legs in bed and in the car. This is nightly. Sometimes gets out to bed to walk which helps. Gets leg cramps in the night. Has been on gabapentin and Lyrica for pain, no relief of pain orRLS with either drug. SLEEP APNEA Sleep apnea type : HUBER, Most Recent Apnea-Hypopnea Index (AHI): 7.6 on split study Treatment : PAP therapy DME: [facility] PAP History: Uses AutoPAP for 4-8 hours per night, 7 nights per week. Current PAP settin-11 cm H2O. Difficulties with AutoPAP: Yes: claustrophobia Reviewed objective PAP compliance data: not available at today's visit PATIENT-ENTERED QUESTIONNAIRE SLEEP SCORES 02/25/2024 Sleep Questions Reason for visit: Sleep apnea Difficulty falling or staying asleep or poor sleep quality Excessive daytime sleepiness Restless Legs Syndrome Abnormal sleep/wake timing Abnormal behaviors/movements during sleep Accidents or near accidents due to drowsy drivin 03/29/2022 02/25/2024 [place] Sleepiness Scale Score Incomplete 13 (Excessive daytime sleepiness present) 02/28/2022 03/29/2022 02/25/2024 PROMIS CAT Sleep Disturbance PROMIS Sleep Disturbance T-Score 66 (moderate) 68 (moderate) 63 (moderate) PROMIS Sleep Disturbance Percentile 5 4 10 01/08/2019 03/29/2022 02/25/2024 Insomnia Severity Index Score 20 24 21 03/29/2022 Restless Leg Syndrome Score Incomplete 02/28/2022 03/29/2022 05/16/2022 PHQ-9 Score 21 18 16 05/29/2023 10/02/2023 02/06/2024 PROMIS Global Health - (T-Scores - the mean of general population = 50. Five points is a clinicallymeaningful difference.) Physical T-Score 26.7 32.4 26.7 Mental T-Score 31.3 33.8 33.8 SLEEP RELATED ROS Review of Systems HENT: Negative for congestion. Musculoskeletal: Positive for arthralgias and myalgias. Psychiatric: Increased anxiety ALLERGIES Allergen Reactions Dilaudid [Hydromorp* Mental Status Change, Other: See Comments Hallucinations Sulfa (Sulfonamide * Rash Ultram [Tramadol Hc* GI Upset Pt. tried again on 02-13 and became very ill with GI issues Oxycontin [Oxycodon* Swelling Relafen [Nabumetone] GI Upset Sertraline Other: See Comments Tremors right upper extremity. CURRENT MEDICATIONS: hydroCHLOROthiazide 12.5 mg capsule Take 1 capsule by mouth once daily. hydrOXYzine HCl (ATARAX) 10 mg tablet Take 1 tablet by mouth three times a day as needed. atorvastatin (LIPITOR) 40 mg tablet Take 1 tablet by mouth daily at bedtime. For cholesterol. losartan (COZAAR) 100 mg tablet Take 1 tablet by mouth once daily. traZODone (DESYREL) 100 mg tablet Take 1 tablet by mouth daily at bedtime. melatonin 3 mg tablet Take 1 tablet at ~8PM nightly (if miss the dose, skip until the next day). folic acid 1 mg tablet Take 1 tablet by mouth once daily. FLUoxetine (PROZAC) 40 mg capsule Take 1 capsule by mouth twice daily. meloxicam (MOBIC) 15 mg tablet Take [...] humidity, filters. Fax day download report to [phone] to assess residual ahi. vit C-Zn gluc-herbal no.325 (ELDERBERRY ZINC VIT C) 90-15 mg lozg Use 1 Lozenge as instructed twicedaily. calcium carbonate (CALTRATE 600 ORAL) Take 1 tablet by mouth once daily. multivitamin tablet Take 1 tablet by mouth once daily. BIOTIN ORAL Take 1 tablet by mouth once daily. Cholecalciferol, Vitamin D3, 2,000 unit cap Take 10,000 Units by mouth once daily. PHYSICAL EXAMINATION: Vital Signs: BP 129/76 Pulse 60 Resp 18 Wt 94.4 kg (208 lb 3.2 oz) LMP 08/04/2008 SpO2 96% BMI 30.75kg/m PHYSICAL EXAM: General appearance: pleasant, NAD Mental status: alert and oriented, able to provide own history Constitutional: WNL Skin: No visible rashes on exposed skin Neuro: No focal deficits observed IMPRESSION/PLAN: Primary insomnia (primary encounter diagnosis) Rls (restless legs syndrome) Huber on cpap Kristina Burch is a 63 year old female with insomnia, HUBER, RLS. PMH of essential tremor, chronic pain, fibromyalgia, migraines, HLD, HTN, post COVID chronic dyspnea, nocturnal oxygen, RA, OA, spinalstenosis, anxiety, depression. Her delayed sleep phase resolved with a month of melatonin. HUBER - Continue Auto CPAP at [id number]. With oxygen bleed in - Remember to clean your mask and equipment regularly, as directed. - You should be eligible for new supplies approximately every 3-6 months, depending on your insurance coverage. Contact your Durable Medical Equipment (DME) company for new supplies as needed. - Follow up in 3 months with [facility], [address] Waddell. INSOMNIA Continue trazodone 100 mg at HS RLS Clonazepam 0.5 mg for insomnia and RLS PDMP website checked and validated. All prescriptions have been APPROPRIATELY filled. No suspiciousactivity was identified. 02/25/2024 by Latrice Parker APRN.CNP PDMP website checked and validated. All prescriptions have been APPROPRIATELY filled. No suspiciousactivity was identified. 02/25/2024 by NATASHA Soliz APRN.CNP documented in this encounterOhiohealth [facility]06-13-2024 History of Present illness Narrative* Ganga Nunez MD - 02/14/2024 11:00 AM EDT Chief Complaint Patient presents with: Pre-Op Exam HPI Kristina Burch is a 63 year old female who presents here today for Pre op. Patient with hx of hyperlipidemia, HTN, thoracic aortic aneurysm, aorta dilatation, aortic regurg, HUBER, anxiety/depression, vit d def. Fibro, insomnia, post COVID dyspnea, hydrocephalus and those as below. Patient sees [facility] for her heart related issues and Dr. Scott Quarles in Pulmonary for her chronic lung issues and nocturnal hypoxia. Patient has known chronic DDD of the lumbar spine with chronic pain issues. The plan is to have a spinal cord stimulator placed per Dr. Nobles. Patient is to set up an appt with [facility] for clearance. Past medical history, appointments, medications, allergies reviewed. Previous Medical History PAST MEDICAL HISTORY Diagnosis Date Abnormal mammogram Acute respiratory disease due to COVID-19 virus 06/16/[address] Scott Quarles Advance directive discussed with patient 04/06/2022 Discussed 04/06/2022 Arthritis of knee, left 01/31/2013 Arthritis of left hip 01/19/2016 Arthritis of left shoulder region 10/10/2023 Ascending aorta dilatation (HCC) 07/04/201716: 4.2 cm [...] 01/22/2019 Living will on file 04/06/2022 DPA: Dustin () Lung nodule 01/24/2022 Seeing pulm Migraines 07/26/2021 Used to see neuro and was getting Botox Mild dysplasia of cervix 2006 Mixed hyperlipidemia 01/20/2016 Nonrheumatic mitral valve disorder, unspecified 04/06/2016 Obstructive sleep apnea 10/13/2016 DME - [facility] Plantar fasciitis 2018 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 Scott Quarles Postcoital bleeding Primary insomnia 06/13/2021 Primary osteoarthritis of both knees 11/15/2022 Primary osteoarthritis of both shoulders 04/06/2022 Seeing [facility] Rectocele 04/19/2007 Renal cyst 07/13/2016 Rheumatoid arthritis (HCC) 04/24/2023 Seeing Rheum. Right knee pain Situational mixed anxiety and depressive disorder 11/12/2017 Spinal stenosis, lumbar region, without neurogenic claudication 11/15/2022 Thoracic aortic aneurysm without rupture ([facility]) 2018 Urge incontinence 04/19/2007 Vitamin D deficiency [...] on File Prior to Visit Medication Sig hydrOXYzine HCl (ATARAX) 10 mg tablet Take 1 tablet by mouth three times a day as needed. atorvastatin (LIPITOR) 40 mg tablet Take 1 tablet by mouth daily at bedtime. For cholesterol. losartan (COZAAR) 100 mg tablet Take 1 tablet by mouth once daily. traZODone (DESYREL) 100 mg tablet Take 1 tablet by mouth daily at bedtime. melatonin 3 mg tablet Take 1 tablet at ~8PM nightly (if miss the dose, skip until the next day). folic acid 1 mg tablet Take 1 tablet by mouth once daily. FLUoxetine (PROZAC) 40 mg capsule Take 1 capsule by mouth twice daily. meloxicam (MOBIC) 15 mg tablet Take [...] filters. Fax 30 day download report to [phone] to assess residual ahi. vit C-Zn gluc-herbal no.325 (ELDERBERRY ZINC VIT C) 90-15 mg lozg Use 1 Lozenge as instructed twicedaily. calcium carbonate (CALTRATE 600 ORAL) Take 1 [...] 04/26/2010 Years since quittin.8 Smokeless tobacco: Never Vaping Use Vaping Use: [...] significant neck swelling RESPIRATORY: Negative for cough, hemoptysis. No increased wheezing, COPD, dyspnea or shortness of breath CARDIOVASCULAR: Negative for chest pain, hypertension, CHF or palpitations. Some leg swelling GI: No nausea, vomiting, or diarrhea and no pain : No history of dysuria, frequency or blood MUSCULOSKELETAL:see HPI SKIN: Negative for lesions. Has had some rashes that have been itchy. HEMATOLOGY/LYMPHOLOGY: Negative for prolonged bleeding, bruising easily or swollen nodes ENDOCRINE: Negative for cold or heat intolerance, polyuria, polydipsia and goiter NEURO: No history of syncope, paralysis, seizures or tremors EXAM: BP 144/78 Pulse 70 Ht 175.3 cm (5' 9) Wt 95.7 kg (211 lb) LMP 08/04/2008 BMI 31.16 kg/m BP 142/80 Pulse 70 Ht 175.3 cm (5' 9) Wt 95.7 kg (211 lb) LMP 08/04/2008 BMI 31.16 kg/m Last 4 Encounter Wt Readings: Date: Wt: 02/14/2024 95.7 kg (211 lb) 01/03/2024 94.8 kg (208 lb 15.9 oz) 12/10/2023 94.2 kg (207 lb 10.8 oz) 10/10/2023 90.3 kg (199 lb) General Appearance: Well appearing, alert, in no acute distress, well-hydrated, well nourished.. Skin: Skin color, texture, turgor normal, no suspicious rashes or lesions. Has a small rash on the top of the left foot and on the upper abdomen on the right. Not specious for a cellulitis or fungal infection Head: Normocephalic, no masses, lesions, tenderness or [...] normal. No masses, organomegaly. Extremities: No deformities, skin discoloration, clubbing or cyanosis. Good capillary refill. Mild edema both lower legs. Musculoskeletal: Muscular strength intact. Peripheral Pulses: Normal. Neurologic: Gait normal. Reflexes normal and symmetric. Sensation to light touch and crainal nerves2-12 intact.. Health Maintenance List RSV Vaccine(1 - 1-dose 60+ series) Never done BP Controlled (<130/80) due on 06/13/2022 Covid-19 Vaccine( season) Never done Advance Directive Discussion Never done Mammogram Screening due on 06/08/2024 Shingrix Vaccine(1 of 2) due on 04/24/2024 Influenza Vaccine(Season Ended) due on 05/04/2024 Annual PCP Team Chronic Disease Visit due on 10/10/2024 Diabetes Screening due on 10/10/2026 Colorectal Cancer Screening due on 05/05/2027 Lipid Screening due on 10/09/2027 DTaP,Tdap,Td Vaccine(5 - Td or Tdap) due on 03/12/2030 Bone Density Screening Completed Hepatitis C Screening Completed Pneumococcal Vaccine: 65+ Completed Cervical Cancer Screening Discontinued HIV Screening Discontinued Data reviewed In Office EKG: NSR minimal LVH with no acute ST changes with a nonspecific . No changes when compared to KG from 03/27/2023. Latest Ref Rng 02/14/2024 WBC 3.70 - 11.00 k/uL 5.77 RBC 3.90 - 5.20 m/uL 4.03 Hemoglobin 11.5 - 15.5 g/dL 12.5 Hematocrit 36.0 - 46.0 % 37.3 MCV 80.0 - 100.0 fL 92.6 MCH 26.0 - 34.0 pg 31.0 MCHC 30.5 - 36.0 g/dL 33.5 RDW-CV 11.5 - 15.0 % 13.0 Platelet Count 150 - 400 k/uL 232 MPV 9.0 - 12.7 fL 12.0 Neut% % 46.2 Abs Neut (ANC) 1.45 - 7.50 k/uL 2.66 Lymph% % 39.0 Abs Lymph 1.00 - 4.00 k/uL 2.25 Costilla% % 11.8 Abs Costilla <0.87 k/uL 0.68 Eosin% % 2.4 Abs Eosin <0.46 k/uL 0.14 Baso% % 0.3 Abs Baso <0.11 k/uL <0.03 Immature Gran % % 0.3 IMMATURE GRANS (ABS) <0.10 k/uL <0.03 NRBC /100 WBC 0.0 Absolute nRBC <0.01 k/uL <0.01 DTYPE Auto Glucose 74 - 99 mg/dL 100 (H) BUN 7 - 21 mg/dL 18 Creatinine 0.58 - 0.96 mg/dL 0.82 Sodium 136 - 144 mmol/L 143 Potassium 3.7 - 5.1 mmol/L 4.3 Chloride 98 - 107 mmol/L 107 CO2 22 - 30 mmol/L 24 Anion Gap 8 - 15 mmol/L 12 Calcium 8.5 - 10.2 mg/dL 9.6 eGFR >=60 mL/min/1.73m 79 A/P ASSESSMENT/PLAN: 1. Pre-op examination - ICD9: V72.84, ICD10: Z01.818 (primary diagnosis) - ECG COMPLETE This is a low/Mod risk surgery based on the ACC/AHA Classification of Surgical Procedure risk. Based on the Aidan's Simple Cardiac Risk Index her risk is 0.4%. From a general medical stand point she isclear to proceed with her procedure. 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 If there is concern regarding her breathing issues she will need to get clearance from her tube draw helper. Check - COMPLETE BLOOD COUNT AND DIFFERENTIAL - BASIC METABOLIC PANEL 2. DDD (degenerative disc disease), lumbar - ICD9: 722.52, ICD10: M51.36 - plan is to have a spine stimulator placed in the lower lumbar spine per Dr. Nobles. 3. Chronic pain syndrome - ICD9: 338.4, ICD10: G89.4 - as per #2 4. Hypertension, essential - ICD9: 401.9, ICD10: I10 - Uncontrolled - Continue current medications - Start hydrochlorothiazide 12.5 mg a day. However not out of control enough to prevent planned surgery - Recommend home blood pressure monitoring, to bring results to next visit - Encouraged sodium restriction, DASH or Mediterranean diet - Recommend regular aerobic exercise Check - ECG COMPLETE - BASIC METABOLIC PANEL 5. Bilateral leg edema - ICD9: 782.3, ICD10: R60.0 - start HCTZ 12.5 mg a day - f/u 4 weeks recheck and BP check 6. Thoracic aortic aneurysm without rupture, unspecified part (HCC) - ICD9: 441.2, ICD10: I71.20 - patient will be seeing cardio for clearance. 7. Moderate aortic regurgitation - ICD9: 424.1, ICD10: I35.1 - as per #6 8. Post-COVID chronic dyspnea - ICD9: 786.09, 139.8, ICD10: R06.09, U09.9 - clinically seems stable. However is needing clearance for upcoming procedure the surgery will need input from patient's tube draw helper. 9. Dependence on nocturnal oxygen therapy - ICD9: V46.2, ICD10: Z99.81 - as per #8 10. Rash - ICD9: 782.1, ICD10: R21 - not infectious. Looks like a mil contact dermatitis and advise use of OTC benadryl cream. Requested Prescriptions Pending Prescriptions Disp Refills hydroCHLOROthiazide 12.5 mg capsule 30 capsule 12 Sig: Take 1 capsule by mouth once daily. F/u 4 weeks HTN med check and edema f/u I spent a total of 40 minutes on the date of the service which included preparing to see the patient, [id number] patient care, completing clinical documentation, performing a medically appropriate examination, counseling and educating the patient/family/caregiver and ordering medications, tests, or procedures. Ganga Nunez MD documented [facility] Telephone encounter Note * Telephone Encounter - Isatu Grajeda LPN - 02/07/2024 10:40 AM EDT Pt states she can not come in to the office today, states she does not have a ride & she is babysitting. Offered to reschedule appt but pt states she will call back to schedule after she works out babysitting arrangements & a ride. Appt cancelled. Isatu Grajeda LPN [facility]06-06-[facility]24 Miscellaneous Notes* Telephone Encounter - Isatu Grajeda LPN - 02/07/2024 10:40 AM EDT Pt states she can not come in to the office today, states she does not have a ride & she is babysitting. Offered to reschedule appt but pt states she will call back to schedule after she works out babysitting arrangements & a ride. Appt cancelled. Isatu Grajeda LPN * Telephone Encounter - Wilbur Paez MA - 02/06/2024 4:32 PM EDT Received fax from [employer] for clearance. Patient had scheduled herself for a 20 minute Virtual appointment. Pre op Clearance needs completed in the office. I have changed the appointment and ask that patientcome at 11:20 am instead of 11:40 so we would have a 40 minute appointment. Wilbur Paez MA documented in this encounterOhio[facility]06-[facility] Telephone encounter Note * Telephone Encounter - Wilbur Paez MA - 02/06/2024 4:32 PM EDT Received fax from [facility] for clearance. Patient had scheduled herself for a 20 minute Virtual appointment. Pre op Clearance needs completed in the office. I have changed the appointment and ask that patientcome at 11:20 am instead of 11:40 so we would have a 40 minute appointment. Wilbur Paez MA [facility]05-04-[facility] Telephone encounter Note* Telephone Encounter - Ines Guidry MA - 01/05/2024 8:57 AM EDT Patient notified of results, verbalized understanding of instructions given. Ines Guidry MA [facility]05-04-[facility] Miscellaneous Notes* Telephone Encounter - Ines Guidry MA - 01/05/2024 8:57 AM EDT Patient notified of results, verbalized understanding of instructions given. Ines Guidry MA * Telephone Encounter - Brielle Irby PA - 01/05/2024 8:06 AM EDT Please contact patient and let her know urine culture did not reveal significant bacterial growth. She may continue antibiotic if symptoms are improving. She needs close follow-up with her primary care doctor for blood in the urine. documented in this encounterOhio[facility]05-04-[facility] Telephone encounter Note * Telephone Encounter - Brielle Irby PA - 01/05/2024 8:06 AM EDT Please contact patient and let her know urine culture did not reveal significant bacterial growth. She may continue antibiotic if symptoms are improving. She needs close follow-up with her primary care doctor for blood in the urine. [facility]20[facility] History of Present illness Narrative* Brielle Irby PA - 01/03/2024 4:06 PM EDT This note was created using SIZESEEKERter. Subjective Kristina Burch is a 63 year old female. HPI 63-year-old female presents for urinary urgency, frequency, low back pain, dysuria, foul-smelling urine and vaginal discharge for 5 days. Patient states that she started getting some urinary urgency frequency and low back pain a few days ago. States her urine is foul-smelling. She states that she has some white vaginal discharge as well. No vaginal bleeding. No hematuria. No abdominal pain. No vomiting or fevers. She was seen here about a month ago for similar symptoms. She had GC/chlamydia, BV and Lona swabs all of which were negative. She states symptoms resolved, but she is now moreconcerned she has a UTI. Patient also complaining of URI symptoms. She has had nasal congestion and cough for the past 4 to 5 days. No fevers. No chest pain or shortness of breath. No sore throat. No other complaint. PAST MEDICAL HISTORY Diagnosis Date Abnormal mammogram Acute respiratory disease due to COVID-19 virus 06/16/[address] Scott Quarles Advance directive discussed with patient 04/06/2022 Discussed 04/06/2022 Arthritis of knee, left 01/31/2013 Arthritis of left hip 01/19/2016 Arthritis of left shoulder region 10/10/2023 Ascending aorta dilatation (HCC) 07/04/2017 04/19/16: 4.2 [...] 01/22/2019 Living will on file 04/06/2022 DPA: Dustin () Lung nodule 01/24/2022 Seeing pulm Migraines 07/26/2021 Used to see neuro and was getting Botox Mild dysplasia of cervix 2006 Mixed hyperlipidemia 01/20/2016 Nonrheumatic mitral valve disorder, unspecified 04/06/2016 Obstructive sleep apnea 10/13/2016 DME - [facility] Plantar fasciitis 2018 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 Scott Quarles Postcoital bleeding Primary insomnia 06/13/2021 Primary osteoarthritis of both knees 11/15/2022 Primary osteoarthritis of both shoulders 04/06/2022 Seeing [facility] Rectocele 04/19/2007 Renal cyst 07/13/2016 Rheumatoid arthritis (HCC) 04/24/2023 Seeing Rheum. Right knee pain Situational mixed anxiety and depressive disorder 11/12/2017 Spinal stenosis, lumbar region, without neurogenic claudication 11/15/2022 Thoracic aortic aneurysm without rupture ([facility]) 2018 Urge incontinence 04/19/2007 Vitamin D deficiency [...] [Oxycodone Hcl], Relafen [Nabumetone], and Sertraline MEDICATIONS hydrOXYzine HCl (ATARAX) 10 mg tablet Take 1 tablet by mouth three times a day as needed. atorvastatin (LIPITOR) 40 mg tablet Take 1 tablet by mouth daily at bedtime. For cholesterol. losartan (COZAAR) 100 mg tablet Take 1 tablet by mouth once daily. traZODone (DESYREL) 100 mg tablet Take 1 tablet by mouth daily at bedtime. melatonin 3 mg tablet Take 1 tablet at ~8PM nightly (if miss the dose, skip until the next day). folic acid 1 mg tablet Take 1 tablet by mouth once daily. FLUoxetine (PROZAC) 40 mg capsule Take 1 capsule by mouth twice daily. meloxicam (MOBIC) 15 mg tablet Take [...] filters. Fax 30 day download report to [phone] to assess residual ahi. vit C-Zn gluc-herbal no.325 (ELDERBERRY ZINC VIT C) 90-15 mg lozg Use 1 Lozenge as instructed twicedaily. calcium carbonate (CALTRATE 600 ORAL) Take 1 tablet by mouth once daily. multivitamin tablet Take 1 tablet by mouth once daily. BIOTIN ORAL Take 1 tablet by mouth once daily. Cholecalciferol, Vitamin D3, 2,000 unit cap Take 10,000 Units by mouth once daily. cephALEXin (KEFLEX) 500 mg capsule Take 1 capsule by mouth two times a day for 7 days. FAMILY HISTORY Problem Relation Age of Onset Heart Mother skin cancer on nose Breast Cancer Mother Heart Father Hypertension Father Heart Maternal Grandmother Thyroid Sister Thyroid Paternal Aunt Social History Tobacco Use Smoking status: Former Packs/day: 0.10 Years: 2.00 Additional pack years: 0.00 Total pack years: 0.20 Types: Cigarettes Quit date: 04/26/2010 Years since quittin.6 Smokeless tobacco: Never Vaping Use Vaping Use: Never used Substance Use Topics Alcohol use: Yes Comment: 1-2 times a week at most: wine Drug use: No Review of Systems Constitutional: Negative for chills and fever. HENT: Positive for congestion. Negative for ear pain and sore throat. Respiratory: Positive for cough. Negative for shortness of breath. Cardiovascular: Negative for chest pain. Gastrointestinal: Negative for abdominal pain, diarrhea and vomiting. Genitourinary: Positive for dysuria, frequency, urgency and vaginal discharge. Negative for genitalsores and hematuria. Musculoskeletal: Positive for back pain. Objective BP 144/78 Pulse 64 Temp 36.6 C (97.9 F) Resp 16 Wt 94.8 kg (208 lb 15.9 oz) LMP 08/04/2008 SpO2 98% BMI 30.86 kg/m Physical Exam Vitals and nursing note reviewed. Constitutional: General: She is not in acute distress. Appearance: Normal appearance. She is not toxic-appearing. HENT: Right Ear: Tympanic membrane and ear canal normal. Left Ear: Tympanic membrane and ear canal normal. Nose: Congestion present. Mouth/Throat: Mouth: Mucous membranes are moist. Eyes: Conjunctiva/sclera: Conjunctivae normal. Cardiovascular: Rate and Rhythm: Normal rate and regular rhythm. Pulmonary: Effort: Pulmonary effort is normal. Breath sounds: Normal breath sounds. Abdominal: General: Abdomen is flat. Palpations: Abdomen is soft. Tenderness: There is no abdominal tenderness. There is no right CVA tenderness or left CVA tenderness. Skin: General: Skin is warm and dry. Neurological: Mental Status: She is alert. Assessment and Plan ASSESSMENT/PLAN: 1. Urinary frequency - ICD9: 788.41, ICD10: R35.0 (primary diagnosis) acute - UA positive for dyana esterase, hematuria, and proteinuria - Send urine for culture - Begin treatment with keflex for 7 days - Patient education for prevention given - UA DIP, URINE (POC) - URINE CULTURE -Offered vaginal swabs due to vaginal discharge, but patient declined. She had swabs 1 month ago and everything was negative. She is more concerned this is UTI. Did advise patient if vaginal discharge continues, needs close follow-up with her database admin. She understands. 2. URI, acute - ICD9: 465.9, ICD10: J06.9 - Discussed viral etiology and rationale for treatment. - Symptomatic treatment with prn analgesia - Supportive care with fluids and rest - The patient may also use OTC cough and cold meds as needed. Diagnosis and treatment plan were discussed and questions were answered to the patient's satisfaction. Pt acknowledged understanding of concepts and follow up plan. Specific signs and symptoms that would indicate the need for higher level of care were discussed in detail warranting prompt ER evaluation. OMER Yen documented in this encounterOhio[facility]04-08-[facility]24 History of Present illness Narrative* Barbra Beltran APRN.[employer] - 12/10/2023 1:35 PM EDT This note was created using NoteWriter. Subjective Kristina Burch is a 63 year old female. 63 year old female with PMH Fibromyalgia, migraines, hyperlipidemia, HTN presents for multiple complaints. Think I have pink eye Acute onset yesterday Bilateral eyes +redness +drainage +nasal congestion +cough Denies fever or chills Denies loss of vision, double vision or blurred vision. Denies skin rash or lesions. Denies trauma or injury Endorses she wears glasses, denies contact lens Vaginal discharge Acute onset yesterday +white Denies sx Denies skin rash or lesions Denies vaginal bleeding Denies abdominal pain Denies concerns for STI States she was in a hot tub a few days ago. The history is provided by the patient and the spouse. Eye Problem This is a new problem. The current episode started yesterday. The problem occurs constantly. The problem has been unchanged. Associated symptoms include congestion and coughing. Pertinent negatives include no abdominal pain, anorexia, arthralgias, change in bowel habit, chest pain, chills, diaphoresis, fatigue, fever, headaches, joint swelling, myalgias, nausea, neck pain, numbness, rash, sore throat, swollen glands, urinary symptoms, vertigo, visual change, vomiting or weakness. Nothing aggravates the symptoms. She has tried nothing for the symptoms. The treatment provided no relief. Vaginal Discharge This is a new problem. The current episode started yesterday. The problem occurs constantly. The problem has not changed since onset.The discharge occurs While at rest. The discharge was White. She is not . She has not missed her period. Pertinent negatives include no anorexia, no diaphoresis, no fever, no abdominal swelling, no abdominal pain, no constipation, no diarrhea, no nausea, no vomiting, no dysuria, no frequency, no genital burning, no genital itching, no genital lesions, no perineal pain and no perineal odor. She has tried nothing for the symptoms. The treatment provided norelief. Her past medical history does not include irregular periods, PID, STD, ectopic , ovarian cysts or infertility. PAST MEDICAL HISTORY Diagnosis Date Abnormal mammogram Acute respiratory disease due to COVID-19 virus 06/16/[address] Scott Quarles Advance directive discussed with patient 04/06/2022 Discussed 04/06/2022 Arthritis of knee, left 01/31/2013 Arthritis of left hip 01/19/2016 Arthritis of left shoulder region 10/10/2023 Ascending aorta dilatation (HCC) 07/04/2017 04/19/16: 4.2 cm 06/11/17: 4.4 cm 06/24/18 4.4 cm Cervical high risk human papillomavirus (HPV) DNA test positive 05/27/2008 Chronic anxiety 06/01/2021 Chronic diarrhea 12/09/2018 Chronic hypoxemic respiratory failure (HCC) 09/06/2021 resolved Chronic pain syndrome 11/29/[address] Bustillos as of 11/27/2022 Chronic prescription benzodiazepine use 06/01/2021 DDD (degenerative disc disease), lumbar 07/24/[address] Jose Raul Machuca Dependence on nocturnal oxygen therapy 04/24/2023 Seeing Pulm Elevated hemoglobin A1c 04/24/2023 Essential tremor 04/06/2022 Ex-smoker 04/06/2022 Excessive or frequent menstruation Heavy periods Fibromyalgia 02/26/2014 Hemorrhage of gastrointestinal tract, unspecified History of COVID-19 06/13/202105/2021 Hydrocephalus, adult (HCC) 02/09/2003 Hypertension, essential 01/22/2019 Living will on file 04/06/2022 DPA: Dustin () Lung nodule 01/24/2022 Seeing pulm Migraines 07/26/2021 Used to see neuro and was getting Botox Mild dysplasia of cervix 2006 Mixed hyperlipidemia 01/20/2016 Nonrheumatic mitral valve disorder, unspecified 04/06/2016 Obstructive sleep apnea 10/13/2016 DME - [facility] Plantar fasciitis 2018 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 Scott Quarles Postcoital bleeding Primary insomnia 06/13/2021 Primary osteoarthritis of both knees 11/15/2022 Primary osteoarthritis of both shoulders 04/06/2022 Seeing [facility] Rectocele 04/19/2007 Renal cyst 07/13/2016 Rheumatoid arthritis ([facility]) 04/24/2023 Seeing Rheum. Right knee pain Situational mixed anxiety and depressive disorder 11/12/2017 Spinal stenosis, lumbar region, without neurogenic claudication 11/15/2022 Thoracic aortic aneurysm without rupture ([facility]) 2018 Urge incontinence 04/19/2007 Vitamin D deficiency [...] [Oxycodone Hcl], Relafen [Nabumetone], and Sertraline MEDICATIONS hydrOXYzine HCl (ATARAX) 10 mg tablet Take 1 tablet by mouth three times a day as needed. atorvastatin (LIPITOR) 40 mg tablet Take 1 tablet by mouth daily at bedtime. For cholesterol. losartan (COZAAR) 100 mg tablet Take 1 tablet by mouth once daily. traZODone (DESYREL) 100 mg tablet Take 1 tablet by mouth daily at bedtime. melatonin 3 mg tablet Take 1 tablet at ~8PM nightly (if miss the dose, skip until the next day). folic acid 1 mg tablet Take 1 tablet by mouth once daily. FLUoxetine (PROZAC) 40 mg capsule Take 1 capsule by mouth twice daily. meloxicam (MOBIC) 15 mg tablet Take [...] filters. Fax 30 day download report to [phone] to assess residual ahi. vit C-Zn gluc-herbal no.325 (ELDERBERRY ZINC VIT C) 90-15 mg lozg Use 1 Lozenge as instructed twicedaily. calcium carbonate (CALTRATE 600 ORAL) Take 1 tablet by mouth once daily. multivitamin tablet Take 1 tablet by mouth once daily. BIOTIN ORAL Take 1 tablet by mouth once daily. Cholecalciferol, Vitamin D3, 2,000 unit cap Take 10,000 Units by mouth once daily. trimethoprim-polymyxin (POLYTRIM) 10,000 unit- 1 mg/mL ophthalmic solution Use 1 Drop in both eyes every 4 hours for 7 days. fluconazole (DIFLUCAN) 150 mg tablet Take 1 tablet by mouth once daily for 1 day. FAMILY HISTORY Problem Relation Age of Onset Heart Mother skin cancer on nose Breast Cancer Mother Heart Father Hypertension Father Heart Maternal Grandmother Thyroid Sister Thyroid Paternal Aunt Social History Tobacco Use Smoking status: Former Packs/day: 0.10 Years: 2.00 Additional pack years: 0.00 Total pack years: 0.20 Types: Cigarettes Quit date: 04/26/2010 Years since quittin.6 Smokeless tobacco: Never Vaping Use Vaping Use: Never used Substance Use Topics Alcohol use: Yes Comment: 1-2 times a week at most: wine Drug use: No Review of Systems Constitutional: Negative for chills, diaphoresis, fatigue and fever. HENT: Positive for congestion. Negative for sore throat. Eyes: Positive for discharge and redness. Negative for pain and itching. Respiratory: Positive for cough. Negative for apnea and chest tightness. Cardiovascular: Negative for chest pain. Gastrointestinal: Negative for abdominal pain, anorexia, change in bowel habit, constipation, diarrhea, nausea and vomiting. Genitourinary: Positive for vaginal discharge. Negative for dysuria and frequency. Musculoskeletal: Negative for arthralgias, joint swelling, myalgias and neck pain. Skin: Negative for rash. Allergic/Immunologic: Negative for environmental allergies, food allergies and immunocompromised state. Neurological: Negative for dizziness, vertigo, facial asymmetry, weakness, numbness and headaches. Hematological: Negative for adenopathy. Does not bruise/bleed easily. Psychiatric/Behavioral: Negative for agitation and behavioral problems. Objective BP 120/78 Pulse 75 Temp 37.1 C (98.8 F) Resp 22 Wt 94.2 kg (207 lb 10.8 oz) LMP 08/04/2008 SpO2 92% BMI 30.67 kg/m Physical Exam Vitals and nursing note reviewed. Exam conducted with a stack clerk present. Constitutional: General: She is not in acute distress. Appearance: Normal appearance. She is normal weight. She is not ill-appearing, toxic-appearing or diaphoretic. HENT: Head: Normocephalic and atraumatic. Right Ear: Ear canal and external ear normal. Left Ear: Ear canal and external ear normal. Nose: Nose normal. No congestion or rhinorrhea. Mouth/Throat: Mouth: Mucous membranes are moist. Pharynx: No oropharyngeal exudate or posterior oropharyngeal erythema. Eyes: General: Right eye: No discharge. Left eye: No discharge. Extraocular Movements: Extraocular movements intact. Conjunctiva/sclera: Conjunctivae normal. Pupils: Pupils are equal, round, and reactive to light. Comments: Bilateral conjunctiva mildly injected Vision grossly intact Scant marginal eyelid debris Cardiovascular: Rate and Rhythm: Normal rate and regular rhythm. Pulses: Normal pulses. Heart sounds: Normal heart sounds. No murmur heard. No friction rub. Pulmonary: Effort: Pulmonary effort is normal. No respiratory distress. Breath sounds: Normal breath sounds. No stridor. No wheezing, rhonchi or rales. Chest: Chest wall: No tenderness. Abdominal: General: Abdomen is flat. There is no distension. Palpations: Abdomen is soft. There is no mass. Tenderness: There is no abdominal tenderness. There is no right CVA tenderness, left CVA tenderness, guarding or rebound. Hernia: No hernia is present. Genitourinary: Exam position: Lithotomy position. Comments: Scant white vaginal discharge noted No lesions. Cx obtained Musculoskeletal: General: No swelling, tenderness, deformity or signs of injury. Normal range of motion. Cervical back: Normal range of motion and neck supple. No rigidity. Right lower leg: No edema. Left lower leg: No edema. Lymphadenopathy: Cervical: No cervical adenopathy. Skin: General: Skin is warm and dry. Capillary Refill: Capillary refill takes less than 2 seconds. Coloration: Skin is not jaundiced or pale. Findings: No bruising, erythema, lesion or rash. Neurological: General: No focal deficit present. Mental Status: She is alert and oriented to person, place, and time. Cranial Nerves: No cranial nerve deficit. Sensory: No sensory deficit. Motor: No weakness. Coordination: Coordination normal. Gait: Gait normal. Psychiatric: Mood and Affect: Mood normal. Behavior: Behavior normal. Thought Content: Thought content normal. Judgment: Judgment normal. Assessment and Plan ASSESSMENT/PLAN: 1. Vaginal discharge - ICD9: 623.5, ICD10: N89.8 (primary diagnosis) X 1 day No red flags Cx obtained - FLUCONAZOLE 150 MG TABLET-provided Will await additional results to guide treatment. - LONA/TRICHOMONAS NAAT - BACTERIAL VAGINOSIS NAAT - GONORRHEA/CHLAMYDIA NAAT 2. Conjunctivitis of both eyes, unspecified conjunctivitis type - ICD9: 372.30, ICD10: H10.9 - see medication orders - course and contagiousness issues discussed, including hand washing. - Instructed to call if high fever, development of periorbital redness or swelling, eye pain, visual changes, concerns or if symptoms persist. 3. URI, acute - ICD9: 465.9, ICD10: J06.9 - Discussed viral etiology and rationale for treatment. - Symptomatic treatment with prn analgesia - Supportive care with fluids and rest - The patient may also use OTC cough and cold meds as needed, warm salt water gargles, throat lozenges and/or OTC throat spray as needed, and nasal saline gtts and suction prn. - Follow up in 3-5 days if symptoms persist or sooner if worsening of symptoms Barbra Beltran APRN.ELEVATOR [employer]STRUCTOR [employer] [facility] History of Present illness Narrative* Isatu Grajeda LPN - 12/10/2023 9:47 AM EDT Scan on 12/07/2023 5:37 PM by Provider, External, PA-C: Chemistry Scan on 12/07/2023 5:13 PM by Provider, External, PA-C: Chemistry Isatu Grajeda LPN documented in this [facility] History of Present illness Narrative* Isatu Grajeda LPN - 12/07/2023 7:02 AM EDT Scan on 12/05/2023 6:22 PM by ProviderKarolina PA-C: CT Scan Isatu Grajeda LPN documented [facility] History of Present illness Narrative* Chelsey Hinkle LPN - 11/08/2023 2:37 PM EST Scan on 11/07/2023 3:54 PM by ProviderKarolina PA-C: Miscellaneous Cardiac documented in this encounterOhio[facility] Hospital Discharge instructions Patient Education 10/31/2023 12:00:05 Shoulder Joint Replacement, Care After Shoulder Joint Replacement, Care After This sheet gives you information about how to care for yourself after your procedure. Your health care provider may also give you more specific instructions. If you have problems or questions, contact your health care provider. What can I expect after the procedure? After your procedure, it is common to have: A bruised and stiff shoulder. A bruised and stiff arm. Some pain. Follow these instructions at home: If you have a sling: Wear the sling as told by your health care provider. Remove it only as told by your health care provider. Loosen the sling if your fingers tingle, become numb, or turn cold and blue. Keep the sling clean. If the sling is not waterproof: ?Do not let it get wet. ?Cover it with a watertight covering when you take a bath or a shower. Bathing Do not take baths, swim, or use a hot tub until your health care provider approves. Ask your healthcare provider if you can take showers. You may only be allowed to take sponge baths for bathing. If your sling is not waterproof, cover it with a watertight covering when you take a bath or a shower. Keep the bandage (dressing) dry until your health care provider says it can be removed. Managing pain, stiffness, and swelling If directed, put ice on the affected area. ?If you have a removable sling, remove it as told by your health care provider. ?Put ice in a plastic bag. ?Place a towel between your skin and the bag. ?Leave the ice on for 20 minutes, 2 3 times a day. Move your fingers often to avoid stiffness and to lessen swelling. Driving Do not drive or use heavy machinery while taking prescription pain medicine. Do not drive for 2 4 weeks after surgery or as told by your health care provider. Medicine Take coha-tmw-pxqpeed and prescription medicines only as told by your health care provider. If you were prescribed an antibiotic medicine, use it as told by your health care provider. Do not stop using the antibiotic even if you start to feel better. Incision care Follow instructions from your health care provider about how to take care of your incision area. Make sure you: ?Wash your hands with soap and water before you change your bandage (dressing). If soap and water are not available, use hand reading intervention teacher. ?Change your dressing as told by your health care provider. ?Leave blanca, stitches (sutures), skin glue, or adhesive strips in place. These skin closures mayneed to stay in place for 2 weeks or longer. If adhesive strip edges start to loosen and curl up, you may trim the loose edges. Do not remove adhesive strips completely unless your health care provider tells you to do that. If you have a tube to remove drainage, follow instructions from your health care provider about caring for it. Do not remove the drain tube or any dressings around the tube opening unless your healthcare provider approves. Check your incision area every day for signs of infection. Check for: ?More redness, swelling, or pain. ?More fluid or blood. ?Warmth. ?Pus or a bad smell. Activity Do not use your arm to push yourself up in bed or from a chair. This requires too much muscle. Follow lifting restrictions as told: ?Do not lift anything that is heavier than a cup of coffee for the first 6 weeks after surgery, or as told by your health care provider. ?Do not lift anything that is heavier than 10 lb (4.5 kg) for 6 months, or as told by your health care provider. Do exercises, including physical therapy, as told by your health care provider. Try not to overuse your shoulder. This includes repetitive pushing or pulling. Early overuse of theshoulder may result in later problems. (Overusing the shoulder is easy to do when your pain goes away for the first time.) Avoid overstretching your arm for 6 weeks after surgery, or as told by your health care provider. Avoid sitting for a long time without moving. Get up and move around one or more times every few hours. Ask for help with some activities. Your health care provider may be able to suggest a clinic or agency for this if you do not have home support. Do not participate in contact sports. General instructions Keep all follow-up visits as told by your health care provider. This is important. Do not use any products that contain nicotine or tobacco, such as cigarettes and e-cigarettes. These can delay healing. If you need help quitting, ask your health care provider. Contact a health care provider if: You develop a rash. You have a fever. You have more redness, swelling, or pain in the incision area. You have more fluid or blood coming from your incision area. You have more pain when moving your shoulder. Get help right away if: Your incision area feels warm to the touch. You have pus or a bad smell coming from your incision area. The edges of the incision site break open after sutures have been removed. You have chest pain or shortness of breath. Summary It is common to have pain and stiffness in your shoulder and arm after the procedure. Put ice on the affected area and take pain medicine as told by your health care provider. Do not use your arm to push yourself up in bed or from a chair. Do exercises, including physical therapy, as told by your health care provider. Check your incision area daily. Call your health care provider if you see signs of infection. This information is not intended to replace advice given to you by your health care provider. Make sure you discuss any questions you have with your health care provider. Document Released: 03/09/2006 Document Revised: 12/12/2019 Document Reviewed: 06/04/2017 [employer] Patient Education 2020 [employer]. 10/31/2023 07:26:00 5 - [facility] Post-op Instruction 04/2017 ([id number]) [facility] Post-operative Instructions PLEASE FOLLOW [facility] POST-OP INSTRUCTIONS GIVEN WATCH FOR SIGNS OF INFECTION: call the office ([phone]) if experencing any of the following: (Usually appears 36-48 hours after surgery) Increased temperature (101 degrees Fahrenheit or higher) Redness or swelling Increased uncontrolled pain Foul odor or drainage Calf discomfort Significant swelling Or if having any chest pain, shortness of breath, or difficulty breathing or swallowing call the office or go the nearest Emergency Room. If you have any questions, please call your doctor at the number listed on your follow up instructions. Form: 338A ([id number]) R: 01/07 Follow Up Care 08/09/2023 14:38:23 With:BRUCE MEEHAN PA-C, Orthopedic Address: [facility] [address] [place] [phone]- When:11/12/2023 15:30:00 Comments:This is your post-op appointment. Follow-up as scheduled. With:[facility] Address: [address] [place] [phone] When:11/13/2023 16:00:00 Comments:This is your first physical therapy appointment. Follow-up as scheduled. [facility] 02-28-2024 Note Date of Service 10/31/2023 Chief Complaint left shoulder pain Subjective Patient seen and evaluated this morning while resting in bed. She states that she is doing well this morning. The block did wear off and she is having a lot of pain but feels that it is well-controlled on oral medications. She is able to move her left hand this morning. She was seen by therapy today and they felt that she is ready for discharge. Patient denies any fever, chills, cough, shortness of breath, chest pain, abdominal pain, nausea or dysuria. She has been able to empty her bladder andis passing gas but has not moved her bowels yet. She is tolerating a regular diet without any difficulty. Reviewed labs and vital signs and they were unremarkable. Physical exam was unremarkable thismorning. From hospitalist perspective, patient is medically optimized for discharge home today. Will defer to primary team to make the final decision to discharge. All questions answered. Objective Vitals and Measurements T: 36.6 C (Oral) TMIN: 36.3 C (Oral) TMAX: 37.1 C (Oral) HR: 63(Apical) RR: 16 BP: 141/67 SpO2: 93% Intake and Output 7AM Yesterday to 7AM Today Intake and Output (Last 24 hours) Intake Output Urine Count 1.00 Total Summary Total Intake 0.00 Total Output 0.00 Fluid Balance 0.00 Physical Exam General: No acute distress. Patient is alert and appropriate. Skin: No rash. Skin is warm, dry and intact. HEENT: Head is normocephalic, atraumatic. Pupils are equal, round and reactive. Neck: Supple. No lymphadenopathy, thyromegaly. Lungs: Bilaterally clear but diminished without crepitation or wheeze. Unlabored. Heart: Heart is regular rhythm, S1, S2. No murmurs, gallops or rubs. Abdomen: Abdomen is soft, nontender. Bowels sounds present in all quadrants. Extremities: No clubbing, cyanosis, or edema. Peripheral pulses palpable. No calf tenderness. Left shoulder surgical dressing is dry and intact. Neurological: Patient is awake and alert to person, place and time. Following simple commands, moving all extremities. Weight Dosing Weight: 91 kg (10/30/23) Dosing Weight: 91 kg (10/30/23) Medications Medications (26) Active Scheduled: (13) acetaminophen 500 mg Tablet 1,000 mg 2 tab(s), Oral, q6hr aspirin 81 mg Chewable 81 mg 1 tab(s), Oral, BID atorvastatin 40 mg tablet 40 mg 1 tab(s), Oral, Daily docusate sodium 100 mg Capsule 100 mg 1 cap(s), Oral, BID docusate-senna (Senokot S) 50 mg-8.6 mg Tablet 2 tab(s), Oral, BID famotidine 20 mg tablet 20 mg 1 tab(s), Oral, qDay fluoxetine 20 mg Capsule 40 mg 2 cap(s), Oral, BID folic acid 1 mg tablet 1 mg 1 tab(s), Oral, qDay losartan 50 mg tablet 100 mg 2 tab(s), Oral, Daily magnesium hydroxide 8% Suspension 30 mL UD 30 mL, Oral, Daily meloxicam 7.5 mg tablet 7.5 mg 1 tab(s), Oral, BIDM metoprolol succinate 50 mg ER tablet 100 mg 2 tab(s), Oral, qDay traZODONE 50 mg Tablet 100 mg 2 tab(s), Oral, qHS Continuous: (1) Lactated Ringers 1000 mL 1,000 mL, Intravenous, 20 mL/hr PRN: (12) acetaminophen 325 mg Tablet 650 mg 2 tab(s), Oral, q4h diphenhydramine 25 mg tablet 25 mg 1 tab(s), Oral, q6h diphenhyDRAMINE 50 mg/mL (1 mL) INJ 25 mg 0.5 mL, IV Push, q6h hydroxyzine hcl 10 mg Tablet 20 mg 2 tab(s), Oral, TID ketorolac 30 mg/mL (1 mL) vial 15 mg 0.5 mL, IV Push, q6h LORAZEPam 0.5 mg tablet 1 mg 2 tab(s), Oral, BID melatonin 3 mg tablet 3 mg 1 tab(s), Oral, qHS ondansetron 2 mg/ 1 mL 2 mL INJ 4 mg 2 mL, IV Push, q8h oxycodone 5 mg tablet (immediate release) 5 mg 1 tab(s), Oral, q4h oxycodone 5 mg tablet (immediate release) 10 mg 2 tab(s), Oral, q4h prochlorperazine 10 mg/2 mL vial 5 mg 1 mL, IV Push, q6h sodium biphosphate-sodium phosphate 19 gm-7 gm Enema 133 mL, Rectal, qDay Lab Results 10/31 06:17 WBC: 11.4 H Hgb: 11.2 L Hct: 33.5 L Platelet: 127 L Neutrophil %: 80.9 H Glucose Level: 149 H Sodium Level: 142 Potassium Level: 4.5 BUN: 18 Creatinine Lvl (s): 1.06 H Imaging Results and Diagnostics XR Shoulder Minimum 2 Views Left Result Date: October 30, 2023 Verified By: DARIO BENDER, SAMSON Tovar CLINICAL STATEMENT: IMPRESSION: Interval total reverse left shoulder arthroplasty with suspected surrounding postoperative changes described above. Hypoventilatory changes. I have personally reviewed the images of this examination and agree with the resident's findings and interpretation. EKG No qualifying data available. Assessment/Plan 1. Osteoarthritis Chronic, s/p left shoulder arthroplasty. POD # 1. Management per primary team. Continue PO pain medication. Consult placed to PT and OT to evaluate and treat - cleared for discharge. 2. HTN (hypertension) Chronic, controlled. Continue current antihypertensives with parameters. SBP goal of 140 or less. 3. GERD (gastroesophageal reflux disease) Chronic. Continue Pepcid PO daily. 4. Sleep apnea Chronic. Continue CPAP at bedtime as at home with oxygen bleed in. Patient seen and evaluated this morning while resting in bed. Physical exam was unremarkable. Lab results and vital signs trends reviewed and were stable. From hospitalist perspective, patient is medically optimized for discharge home today. Hospitalist service will sign-off at this time. Please feel free to re- consult service if there are any changes in condition. Thank you for including hospitalist service in the care of your patient! DVT prophylaxis with aspirin 81 mg PO BID. Code status: Full Code. Labs, diagnostic test and progress notes reviewed as noted in HPI. Plan of care discussed with patient. All questions answered. Patient verbalizes understanding and is agreeable with plan of care. This case was discussed with collaborating physician, Dr. Miko Esquivel. Time Spent 35 minutes spent reviewing past diagnostic tests, reviewing lab results, vital sign trends, medicalhistory, reviewing medications and ordering home medications, examining patient, discussed plan of care with primary team, nursing, social media executive and therapy, collaborating with physician, and docum entizenon in chart. Digitally Signed by MARTHA CUELLAR on 10/31/2023 12:16 PM [facility]02-28-2024 Note Discharge Instructions Thank you for allowing [facility] to assist you with your healthcare needs. The following is importantdischarge information regarding your hospital visit. Your Care Team GANGA NUNEZ MD, LISA APRN-CNP Your Diagnosis GERD (gastroesophageal reflux disease) HTN (hypertension) Osteoarthritis Sleep apnea Status post reverse total replacement of left shoulder What to do next Follow Up Appointments Follow Up with [facility] When 11/13/2023 04:00 PM EDT Why: This is your first physical therapy appointment. Follow-up as scheduled. Where: [address] [address]- [phone] Follow Up with BRUCE MEEHAN PA-C, Orthopedic When 11/12/2023 03:30 PM EDT Why: This is your post-op appointment. Follow-up as scheduled. Where: [facility] [address] [place] [address]- Allergies Dilaudid (HALLUCINATIONS) Relafen (SWELLING, RASH) TraMADol Hydrochloride (SWELLING, RASH) Ultram (SWELLING, RASH) sulfa drug (RASH, SWELLING) Medications Please ask your primary doctor or pharmacist before taking any other medication not listed, including over the counter drugs, herbal medications, vitamins and or supplements as they may interact withyour home medications. What How Much When Why Instructions Last Dose New acetaminophen (Tylenol) 1,000 Milligram by mouth Three (3) times a day not to exceed 3000 mg/ day New aspirin (aspirin 81 mg oral delayed release tablet) 1 tab(s) by mouth Two (2) times a day Duration: 14 Days Take 81 mg aspirin twice daily with food for 2 weeks postoperatively for DVT prophylaxis. Pickup at [facility] New docusate-senna (Senokot S 50 mg-8.6 mg oral tablet) 2 tab(s) by mouth Two (2) times a day Duration: 3 Days Take until first bowel movement, then as needed Pickup at [facility] New famotidine (Pepcid 20 mg oral tablet) 1 tab(s) by mouth Once a day Duration: 14 Days Pickup at [facility] New oxyCODONE (oxyCODONE 5 mg oral tablet ( IMMEDIATE release )) See instructions Status post reverse total replacement of left shoulder 1-2 tab(s) Oral q4h Pickup at [facility] Unchanged atorvastatin (atorvastatin 40 mg oral tablet) 1 tab(s) by mouth Every day Unchanged biotin by mouth Once a day Unchanged calcium carbonate (calcium (as carbonate) 600 mg oral tablet) 1 tab(s) by mouth Once a day Unchanged cholecalciferol (Vitamin D3 250 mcg (10,000 intl units) oral capsule) 1 cap by mouth Once a day Unchanged cyclobenzaprine (cyclobenzaprine 10 mg oral tablet) 1 tab(s) by mouth Three (3) times a day as needed for as needed for spasm FIBROMYALGIA PAIN Unchanged FLUoxetine (FLUoxetine 40 mg oral capsule) 1 cap by mouth Two (2) times a day Unchanged folic acid (folic acid 1 mg oral tablet) 1 tab(s) by mouth Once a day Unchanged hydrOXYzine (hydrOXYzine hydrochloride 10 mg oral tablet) 2 tab(s) by mouth Three (3) times a day as needed for for anxiety Unchanged LORazepam (LORazepam 1 mg oral tablet) 1 tab(s) by mouth Two (2) times a day as needed for as needed for anxiety Unchanged losartan (losartan 100 mg oral tablet) 1 tab(s) by mouth Every day Unchanged melatonin (Melatonin 3 mg oral tablet) 1 tab(s) by mouth Daily at bedtime as needed for for insomnia Unchanged meloxicam (meloxicam 15 mg oral tablet) 1 tab(s) by mouth Once a day Unchanged metoprolol (Metoprolol Succinate ER 100 mg oral TABLET extended release) 1 tab(s) by mouth Once a day Unchanged multivitamin (Multivitamin) 1 tab(s) by mouth Every day Unchanged multivitamin with minerals (Elderberry Gummies with Vitamin C and Zinc oral tablet, chewable) 2 tab(s) Chewed Once a day Unchanged traZODone (traZODone 100 mg oral tablet) 1 tab(s) by mouth Daily at bedtime Pharmacy Information [facility]: [address], [place] [phone] Please take this list to your next doctor s visit. Bring all medications you take, including over the counter medications, herbals and other supplements with you to your doctor s visit. Patients and families are reminded to discard old lists and to update any records with all medication providers or retail pharmacies. Medication Leaflets famotidine (oral/injection) (fam [place] ti lila) Heartburn Relief, Pepcid, Pepcid AC, Pepcid AC Maximum Strength, Zantac 360 What is the most important information I should know about famotidine? Follow all directions on the label and package. Use exactly as directed. What is famotidine? Famotidine is used to treat and prevent ulcers in the stomach and intestines. It also treats conditions in which the stomach produces too much acid, such as Jaky-Medina syndrome. Famotidine also treats gastroesophageal reflux disease (GERD) and other conditions in which acid backs up from the stomach into the esophagus, causing heartburn. The Zantac 360 brand of this medicine does not contain ranitidine, a medicine that was withdrawn from market in the [place]. Famotidine may also be used for purposes not listed in this medication guide. What should I discuss with my healthcare provider before taking famotidine? Heartburn can feel like a heart attack. Get emergency medical help if you have chest pain that spreads to your jaw or shoulder. You should not use this medicine if you are allergic to famotidine or similar medicines such as ranitidine (Zantac), cimetidine (Tagamet), or nizatidine (Axid). Ask a doctor or pharmacist if this medicine is safe to use if you have: kidney disease; liver disease; cancer stomach; or long QT syndrome (in you or a family member). Ask a doctor before using this medicine if you are or . How should I take famotidine? Use exactly as directed on the label, or as prescribed by your doctor. Famotidine oral is taken by mouth. Famotidine injection is given in a vein if you are unable to take the medicine by mouth. You may take famotidine oral with or without food. Measure liquid medicine with the supplied syringe or a dose-measuring device (not a kitchen spoon). Most ulcers heal within 4 weeks of famotidine treatment, but it may take up to 8 weeks of using this medicine before your ulcer heals. Keep using the medication as directed. Call your doctor if the condition you are treating with famotidine does not improve, or if it gets worse while using famotidine. Your treatment may also include changes in diet or lifestyle habits. Follow all instructions of your doctor or dietitian. Store at room temperature away from moisture, heat, and light. Do not allow the liquid medicine to freeze. Throw away any unused famotidine liquid that is older than 30 days. What happens if I miss a dose? Take the medicine as soon as you can, but skip the missed dose if it is almost time for your next dose. Do not take two doses at one time. What happens if I overdose? Seek emergency medical attention or call the Poison Help line at . What should I avoid while taking famotidine? Drinking alcohol may increase the risk of damage to your stomach. Avoid taking other stomach acid reducers unless your doctor has told you to. However, you may take an antacid (such as Maalox, Mylanta, Gaviscon, Milk of Magnesia, Rolaids, or Tums) with famotidine. What are the possible side effects of famotidine? Get emergency medical help if you have signs of an allergic reaction: hives; difficult breathing; swelling of your face, lips, tongue, or throat. Stop using famotidine and call your doctor at once if you have: confusion, hallucinations, agitation, lack of energy; a seizure; fast or pounding heartbeats, sudden dizziness (like you might pass out); or unexplained muscle pain, tenderness, or weakness especially if you also have fever, unusual tiredness, and dark colored urine. Some side effects may be more likely in older adults and in people who have severe kidney disease. Common side effects may include: headache; dizziness; or constipation or diarrhea. This is not a complete list of side effects and others may occur. Call your doctor for medical advice about side effects. You may report side effects to FDA at 9-756-ZFW-4332. What other drugs will affect famotidine? Famotidine oral can make it harder for your body to absorb other medicines you take by mouth. Tell your doctor if you are taking: cefditoren; dasatinib; delavirdine; fosamprenavir; or tizanidine (if you are taking famotidine liquid). This list is not complete. Other drugs may affect famotidine, including prescription and vopo-vjk-dwaqvsc medicines, vitamins, and herbal products. Not all possible drug interactions are listed here. Where can I get more information? Your doctor or pharmacist can provide more information about famotidine. Remember, keep this and all other medicines out of the reach of children, never share your medicines with others, and use this medication only for the indication prescribed. Every effort has been made to ensure that the information provided by [employer]. [employer]') is accurate, up-to-date, and complete, but no guarantee is made to that effect. Drug information contained herein may be time sensitive. [employer] information has been compiled for use by healthcare practitioners and consumers in the [place] and therefore [employer] does not warrant that uses outside of the [place] are appropriate, unless specifically indicated otherwise. [employer]'s drug information does not endorse drugs, diagnose patients or recommend therapy. [employer]'s drug information isan informational resource designed to assist licensed healthcare practitioners in caring for their p atients and/or to serve consumers viewing this service as a supplement to, and not a substitute for, the expertise, skill, knowledge and judgment of healthcare practitioners. The absence of a warningfor a given drug or drug combination in no way should be construed to indicate that the drug or drug combination is safe, effective or appropriate for any given patient. [facility] does not assume any responsibility for any aspect of healthcare administered with the aid of information [facility] provides. The information contained herein is not intended to cover all possible uses, directions, precautions, warnings, drug interactions, allergic reactions, or adverse effects. If you have questions about the drugs you are taking, check with your doctor, nurse or pharmacist. Copyright 3912-5792 [facility]. Version: . Revision Date: 03/26/2023. aspirin (oral) ( pir in) Aspi-Cor, Valerie Plus, Durlaza, Ecotrin, Miniprin, Vazalore What is the most important information I should know about aspirin? Aspirin can cause Jeimy's syndrome, a serious and sometimes fatal condition in children. What is aspirin? Aspirin is a salicylate (nm-ZVC-mg-ate) that is used to treat pain, and reduce fever or inflammation. Aspirin is sometimes used to treat or prevent heart attacks, strokes, and chest pain (angina). Aspirin should be used for these conditions only under the supervision of a doctor. Aspirin may also be used for purposes not listed in this medication guide. What should I discuss with my healthcare provider before taking aspirin? Using aspirin in a child or teenager with flu symptoms or chickenpox can cause a serious or fatal condition called Jeimy's syndrome. You should not use aspirin if you are allergic to it, or if you have: a recent history of stomach or intestinal bleeding; a bleeding disorder such as hemophilia; or if you have ever had an asthma attack or severe allergic reaction after taking aspirin or an NSAID (non-steroidal anti-inflammatory drug). Tell your doctor if you have ever had: asthma or seasonal allergies; stomach ulcers; liver disease; kidney disease; a bleeding or blood clotting disorder; gout; or heart disease, high blood pressure, or congestive heart failure. Taking aspirin during late may cause bleeding in the mother or the baby during delivery. Tell your doctor if you are or plan to become . You should not breastfeed while using this medicine. How should I take aspirin? Use exactly as directed on the label, or as prescribed by your doctor. Always follow directions on the medicine label about giving aspirin to a child. Take with food if aspirin upsets your stomach. You must chew the chewable tablet before you swallow it. Do not crush, chew, break, or open an enteric-coated or delayed/extended-release pill. Swallow it whole. Tell your doctor if you have a planned surgery. Store at room temperature away from moisture and heat. Do not use aspirin if you smell a strong vinegar odor in the aspirin bottle. The medicine may no longer be effective. What happens if I miss a dose? Aspirin is used when needed. If you are on a dosing schedule, skip any missed dose. Do not use two doses at one time. What happens if I overdose? Seek emergency medical attention or call the Poison Help line at . Overdose may cause stomach pain, vomiting, diarrhea, vision or hearing problems, fast or slow breathing, or confusion. What should I avoid while taking aspirin? Avoid alcohol. Heavy drinking can increase your risk of stomach bleeding. Avoid taking ibuprofen if you take aspirin to prevent stroke or heart attack. Ibuprofen can make aspirin less effective in protecting your heart and blood vessels. Ask your doctor how far apart your doses should be. Ask a doctor or pharmacist before using other medicines for pain, fever, swelling, or cold/flu symptoms. They may contain ingredients similar to aspirin (such as magnesium salicylate, ibuprofen, ketoprofen, or naproxen). What are the possible side effects of aspirin? Get emergency medical help if you have signs of an allergic reaction: hives; difficult breathing; swelling of your face, lips, tongue, or throat. Stop using aspirin and call your doctor at once if you have: ringing in your ears, confusion, hallucinations, rapid breathing, seizure (convulsions); severe nausea, vomiting, or stomach pain; bloody or tarry stools, coughing up blood or vomit that looks like coffee grounds; fever lasting longer than 3 days; or swelling, or pain lasting longer than 10 days. Common side effects may include: upset stomach, heartburn; drowsiness; or mild headache. This is not a complete list of side effects and others may occur. Call your doctor for medical advice about side effects. You may report side effects to FDA at 8-636-XNR-0089. What other drugs will affect aspirin? Ask your doctor before using aspirin if you take an antidepressant. Taking certain antidepressants with aspirin may cause you to bruise or bleed easily. Ask a doctor or pharmacist before using aspirin with any other medications, especially: a blood thinner (warfarin, Coumadin, Jantoven), or other medication used to prevent blood clots; or other salicylates such as Nuprin Backache Caplet, Kaopectate, KneeRelief, Pamprin Cramp Formula, Pepto-Bismol, Tricosal, Trilisate, and others. This list is not complete. Other drugs may affect aspirin, including prescription and lwlm-ejt-zcehged medicines, vitamins, and herbal products. Not all possible drug interactions are listed here. Where can I get more information? Your pharmacist can provide more information about aspirin. Remember, keep this and all other medicines out of the reach of children, never share your medicines with others, and use this medication only for the indication prescribed. Every effort has been made to ensure that the information provided by [employer]. [employer]') is accurate, up-to-date, and complete, but no guarantee is made to that effect. Drug information contained herein may be time sensitive. [employer] information has been compiled for use by healthcare practitioners and consumers in the [place] and therefore [employer] does not warrant that uses outside of the [place] are appropriate, unless specifically indicated otherwise. [employer] information does not endorse drugs, diagnose patients or recommend therapy. [employer] drug information isan informational resource designed to assist licensed healthcare practitioners in caring for their p atients and/or to serve consumers viewing this service as a supplement to, and not a substitute for, the expertise, skill, knowledge and judgment of healthcare practitioners. The absence of a warningfor a given drug or drug combination in no way should be construed to indicate that the drug or drug combination is safe, effective or appropriate for any given patient. [employer] does not assume any responsibility for any aspect of healthcare administered with the aid of information [employer] provides. The information contained herein is not intended to cover all possible uses, directions, precautions, warnings, drug interactions, allergic reactions, or adverse effects. If you have questions about the drugs you are taking, check with your doctor, nurse or pharmacist. Copyright 5071-3262 [employer]. Version: 18.01. Revision Date: 03/26/2023. docusate and senna (DOK neftali sate and SEN a) Colace 2-in-1, Senexon-S, Senna Plus, Senna S, Senna-Time S, Senokot S, SenoSol- SS, Stool Softener + Stimulant Laxative, Stool Softener with Laxative What is the most important information I should know about docusate and senna? Use exactly as directed on the label, or as prescribed by your doctor. What is docusate and senna? Docusate is a stool softener. Senna is a laxative. Docusate and senna is a combination medicine used to treat occasional constipation. Docusate and senna may also be used for purposes not listed in this medication guide. What should I discuss with my healthcare provider before using docusate and senna? You should not use this medicine if you are allergic to docusate or senna, or if you are also taking mineral oil. Ask a doctor or pharmacist if this medicine is safe to use if you have ever had: nausea or vomiting; stomach pain; a sudden change in bowel habits that lasts for 2 weeks or longer; or an intestinal disorder such as Crohn's disease or ulcerative colitis. Ask a doctor before using this medicine if you are or . Do not give this medicine to a child younger than 2 years old without medical advice. How should I use docusate and senna? Use exactly as directed on the label, or as prescribed by your doctor. Take docusate and senna with a full glass of water. It may be best to take this medicine at night or at bedtime. Docusate and senna should cause you tohave a bowel movement within 6 to 12 hours. Do not take docusate and senna for longer than 7 days in a row, unless your doctor tells you to. Call your doctor if your constipation does not improve or if it gets worse after taking docusate and senna. Store at room temperature away from moisture and heat. What happens if I miss a dose? Since docusate and senna is used when needed, you may not be on a dosing schedule. Skip any missed dose if it's almost time for your next dose. Do not use two doses at one time. What happens if I overdose? Seek emergency medical attention or call the Poison Help line at . Overdose symptoms may include nausea, vomiting, stomach pain, or diarrhea. What should I avoid while using docusate and senna? Ask a doctor or pharmacist before using any other laxative or other stool softener that may containingredients similar to docusate or senna. What are the possible side effects of docusate and senna? Get emergency medical help if you have signs of an allergic reaction: hives; difficulty breathing; swelling of your face, lips, tongue, or throat. Stop using docusate and senna and call your doctor at once if you have: rectal bleeding; severe stomach pain, nausea, vomiting; or no bowel movement. Common side effects may include: gas, bloating; diarrhea; or mild nausea. This is not a complete list of side effects and others may occur. Call your doctor for medical advice about side effects. You may report side effects to FDA at 1-890-AFO-0230. What other drugs will affect docusate and senna? Other drugs may affect docusate and senna, including prescription and ounr-qeq-qwnkstv medicines, vitamins, and herbal products. Tell your doctor about all your current medicines and any medicine youstart or stop using. Where can I get more information? Your pharmacist can provide more information about docusate and senna. Remember, keep this and all other medicines out of the reach of children, never share your medicines with others, and use this medication only for the indication prescribed. Every effort has been made to ensure that the information provided by [employer]. [employer]') is accurate, up-to-date, and complete, but no guarantee is made to that effect. Drug information contained herein may be time sensitive. [employer] information has been compiled for use by healthcare practitioners and consumers in the [place] and therefore [employer] does not warrant that uses outside of the [place] are appropriate, unless specifically indicated otherwise. [employer]'s drug information does not endorse drugs, diagnose patients or recommend therapy. [employer] drug information isan informational resource designed to assist licensed healthcare practitioners in caring for their p atients and/or to serve consumers viewing this service as a supplement to, and not a substitute for, the expertise, skill, knowledge and judgment of healthcare practitioners. The absence of a warningfor a given drug or drug combination in no way should be construed to indicate that the drug or drug combination is safe, effective or appropriate for any given patient. [facility] does not assume any responsibility for any aspect of healthcare administered with the aid of information [facility] provides. The information contained herein is not intended to cover all possible uses, directions, precautions, warnings, drug interactions, allergic reactions, or adverse effects. If you have questions about the drugs you are taking, check with your doctor, nurse or pharmacist. Copyright 2431-2039 [facility]. Version: 5.01. Revision Date: 04/09/2023. oxycodone (ox i KOE done) Oxaydo, OxyCONTIN, Roxicodone, RoxyBond, Xtampza ER What is the most important information I should know about oxycodone? MISUSE OF OPIOID MEDICINE CAN CAUSE ADDICTION, OVERDOSE, OR . Fatal side effects may occur if you also drink alcohol or use other drugs that cause drowsiness or slow breathing. Using opioid medicine during may cause life-threatening withdrawal symptoms in the . What is oxycodone? Oxycodone is an opioid pain medication used to treat moderate to severe pain. Oxycodone is usually given after other treatments did not work or were not tolerated. Extended-release oxycodone is for dedfze-kes-glakd treatment of severe and chronic pain that requires longer treatment. This medicine is not for use on an as-needed basis. Oxycodone may also be used for purposes not listed in this medication guide. What should I discuss with my healthcare provider before taking oxycodone? You should not use oxycodone if you are allergic to it, or if you have severe asthma, breathing problems or a stomach or bowel obstruction (including paralytic ileus). Tell your doctor if you have ever had: other breathing problems, sleep apnea (breathing that stops during sleep); a head injury, brain tumor, high pressure inside the skull, or seizures, drug or alcohol addiction,or mental illness; if you have used an MAO inhibitor in the past 14 days, such as isocarboxazid, linezolid, methylene blue injection, phenelzine, or tranylcypromine; urination problems, problems with your gallbladder, pancreas, thyroid, or adrenal gland; or liver or kidney disease. Most forms of oxycodone are not approved for use in people under 18 years old. The extended-releasetablets should not be given to a child younger than 11 years old. Tell your doctor if you also use stimulant medicine, opioid medicine, herbal products, or medicine for depression, mental illness, Parkinson's disease, migraine headaches, serious infections, or prevention of nausea and vomiting. An interaction with oxycodone could cause a serious condition called serotonin syndrome. May harm an unborn baby. Tell your doctor if you are or plan to become . If you use oxycodone during , your baby could be born with life-threatening withdrawal symptoms, andmay need medical treatment for several weeks. Do not breastfeed. Oxycodone in breast milk can cause life-threatening side effects in a nursing baby. Long-term oxycodone may affect fertility in men or women. could be harder to achieve while either parent is using this medicine. How should I take oxycodone? Follow the directions on your prescription label and read all medication guides or instruction sheets. Never use oxycodone in larger amounts, or for longer than prescribed. Tell your doctor if you feel an increased urge to use more of this medicine. Never share opioid medicine with another person, especially someone with a history of drug addiction. MISUSE CAN CAUSE ADDICTION, OVERDOSE, OR . Keep the medicine where others cannot get to it. Selling or giving away this medicine is against the law. Never crush a pill or use the liquid to inhale the mixture or inject it into your vein. This could result in . Your dose needs may change if you switch to a different brand, strength, or form of this medicine. Avoid medication errors by using exactly as directed on the label, or as prescribed by your doctor. Stop taking all other tiowbg-cka-nxzsv opioid pain medicines when you start taking extended-releaseoxycodone. Swallow the extended-release forms whole to avoid exposure to a potentially fatal overdose. Do not crush, chew, break, open, or dissolve. Take the extended-release capsules with food. Read and carefully follow the instructions for use onhow to prepare and take this medicine if you cannot swallow extended release capsules whole or you use a feeding tube. Ask your doctor or pharmacist if you don't understand these instructions. Measure liquid medicine with the supplied measuring device (not a kitchen spoon). You may be given other medications to help prevent or treat certain side effects. You may have withdrawal symptoms if you stop using oxycodone suddenly. Ask your doctor before stopping the medicine. Store at room temperature away from moisture and heat. Keep your medicine in a place where no one can use it improperly. Do not keep leftover medicine. Just one dose can cause in someone using it accidentally or improperly. Ask your pharmacist about a drug take-back program, or flush the unused medicine down the toilet. What happens if I miss a dose? Since oxycodone is used for pain, you are not likely to miss a dose. Skip any missed dose if it is almost time for your next dose. Do not use two doses at one time. What happens if I overdose? Seek emergency medical attention or call the Poison Help line at . An overdose can befatal, especially in a child or person using opioid medicine without a prescription. Your doctor may recommend you get naloxone (a medicine to reverse an opioid overdose) and keep it with you at all times. A person caring for you can give the naloxone if you stop breathing or don't wake up. Your caregiver must still get emergency medical help and may need to perform CPR (cardiopulmonary resuscitation) on you while waiting for help to arrive. Anyone can buy naloxone from a pharmacy or local health department. Make sure any person caring foryou knows where you keep naloxone and how to use it. What should I avoid while taking oxycodone? Do not drink alcohol or any products that contain alcohol. Dangerous side effects or could occur. Avoid driving or hazardous activity until you know how this medicine will affect you. Dizziness or drowsiness can causing falls, accidents, or severe injuries. Also avoid getting up too fast from a sitting or lying position, or you may feel dizzy. What are the possible side effects of oxycodone? Get emergency medical help if you have signs of an allergic reaction: hives, difficult breathing, swelling of your face, lips, tongue, or throat. Opioid medicine can slow or stop your breathing, and may occur, especially if you drink alcohol or use other drugs that cause drowsiness or slow breathing. A person caring for you should give naloxone and/or seek emergency medical attention if you have slow breathing with long pauses, blue colored lips, or if you are hard to wake up. Call your doctor at once if you have: slow heart rate, weak pulse, fainting, slow breathing (breathing may stop); chest pain, fast or pounding heartbeats; a seizure, extreme drowsiness; or decreased adrenal gland hormones--nausea, vomiting, stomach pain, loss of appetite, feeling tired or light-headed, muscle or joint pain, skin discoloration, craving salty foods. Serious breathing problems may be more likely in older adults and in those who are debilitated or have wasting syndrome or chronic breathing disorders. Seek medical attention right away if you have symptoms of serotonin syndrome, such as: agitation, hallucinations, fever, sweating, shivering, fast heart rate, muscle stiffness, twitching, loss of coordination, nausea, vomiting, or diarrhea. Common side effects may include: sleep problems (insomnia), itching; drowsiness, headache, dizziness, tiredness; or constipation, stomach pain, nausea, vomiting. This is not a complete list of side effects and others may occur. Call your doctor for medical advice about side effects. You may report side effects to FDA at 6-668-FXB-3062. What other drugs will affect oxycodone? You may have a fatal oxycodone overdose if you start or stop using certain medicines. Tell your doctor about all your medications. Tell your doctor about all your medications especially if you use medicine to treat HIV, antibiotic, antifungal medication, or seizure medication. Many other drugs can be dangerous when used with opioid medicine. Tell your doctor if you also use: medicine for allergies, asthma, blood pressure, motion sickness, irritable bowel, or overactive bladder; other opioid medicines, a benzodiazepine sedative like Valium, Klonopin, or Xanax; sleep medicine, muscle relaxers, or other drugs that make you drowsy; or drugs that affect serotonin, such as antidepressants, stimulants, or medicine for migraines or Parkinson's disease. This list is not complete and many other drugs may affect oxycodone. This includes prescription zynnnza-ogv-rmxcexe medicines, vitamins, and herbal products. Not all possible drug interactions are listed here. Where can I get more information? Your doctor or pharmacist can provide more information about oxycodone. Remember, keep this and all other medicines out of the reach of children, never share your medicines with others, and use this medication only for the indication prescribed. Every effort has been made to ensure that the information provided by [employer]. ('[employer]') is accurate, up-to-date, and complete, but no guarantee is made to that effect. Drug information contained herein may be time sensitive. [employer] information has been compiled for use by healthcare practitioners and consumers in the [place] and therefore [employer] does not warrant that uses outside of the [place] are appropriate, unless specifically indicated otherwise. [employer]'s drug information does not endorse drugs, diagnose patients or recommend therapy. [employer] drug information isan informational resource designed to assist licensed healthcare practitioners in caring for their p atients and/or to serve consumers viewing this service as a supplement to, and not a substitute for, the expertise, skill, knowledge and judgment of healthcare practitioners. The absence of a warningfor a given drug or drug combination in no way should be construed to indicate that the drug or drug combination is safe, effective or appropriate for any given patient. [employer] does not assume any responsibility for any aspect of healthcare administered with the aid of information [employer] provides. The information contained herein is not intended to cover all possible uses, directions, precautions, warnings, drug interactions, allergic reactions, or adverse effects. If you have questions about the drugs you are taking, check with your doctor, nurse or pharmacist. Copyright 8244-4743 [employer]. Version: 17.. Revision Date: 09/25/2023. Education Materials Shoulder Joint Replacement, Care After This sheet gives you information about how to care for yourself after your procedure. Your health care provider may also give you more specific instructions. If you have problems or questions, contact your health care provider. What can I expect after the procedure? After your procedure, it is common to have: A bruised and stiff shoulder. A bruised and stiff arm. Some pain. Follow these instructions at home: If you have a sling: Wear the sling as told by your health care provider. Remove it only as told by your health care provider. Loosen the sling if your fingers tingle, become numb, or turn cold and blue. Keep the sling clean. If the sling is not waterproof: ? Do not let it get wet. ? Cover it with a watertight covering when you take a bath or a shower. Bathing Do not take baths, swim, or use a hot tub until your health care provider approves. Ask your healthcare provider if you can take showers. You may only be allowed to take sponge baths for bathing. If your sling is not waterproof, cover it with a watertight covering when you take a bath or a shower. Keep the bandage (dressing) dry until your health care provider says it can be removed. Managing pain, stiffness, and swelling If directed, put ice on the affected area. ? If you have a removable sling, remove it as told by your health care provider. ? Put ice in a plastic bag. ? Place a towel between your skin and the bag. ? Leave the ice on for 20 minutes, 2 3 times a day. Move your fingers often to avoid stiffness and to lessen swelling. Driving Do not drive or use heavy machinery while taking prescription pain medicine. Do not drive for 2 4 weeks after surgery or as told by your health care provider. Medicine Take xjfc-htk-alupmpe and prescription medicines only as told by your health care provider. If you were prescribed an antibiotic medicine, use it as told by your health care provider. Do not stop using the antibiotic even if you start to feel better. Incision care Follow instructions from your health care provider about how to take care of your incision area. Make sure you: ? Wash your hands with soap and water before you change your bandage (dressing). If soap and water are not available, use hand reading intervention teacher. ? Change your dressing as told by your health care provider. ? Leave blanca, stitches (sutures), skin glue, or adhesive strips in place. These skin closures may need to stay in place for 2 weeks or longer. If adhesive strip edges start to loosen and curl up, you may trim the loose edges. Do not remove adhesive strips completely unless your health care provider tells you to do that. If you have a tube to remove drainage, follow instructions from your health care provider about caring for it. Do not remove the drain tube or any dressings around the tube opening unless your healthcare provider approves. Check your incision area every day for signs of infection. Check for: ? More redness, swelling, or pain. ? More fluid or blood. ? Warmth. ? Pus or a bad smell. Activity Do not use your arm to push yourself up in bed or from a chair. This requires too much muscle. Follow lifting restrictions as told: ? Do not lift anything that is heavier than a cup of coffee for the first 6 weeks after surgery, or as told by your health care provider. ? Do not lift anything that is heavier than 10 lb (4.5 kg) for 6 months, or as told by your health care provider. Do exercises, including physical therapy, as told by your health care provider. Try not to overuse your shoulder. This includes repetitive pushing or pulling. Early overuse of theshoulder may result in later problems. (Overusing the shoulder is easy to do when your pain goes away for the first time.) Avoid overstretching your arm for 6 weeks after surgery, or as told by your health care provider. Avoid sitting for a long time without moving. Get up and move around one or more times every few hours. Ask for help with some activities. Your health care provider may be able to suggest a clinic or agency for this if you do not have home support. Do not participate in contact sports. General instructions Keep all follow-up visits as told by your health care provider. This is important. Do not use any products that contain nicotine or tobacco, such as cigarettes and e-cigarettes. These can delay healing. If you need help quitting, ask your health care provider. Contact a health care provider if: You develop a rash. You have a fever. You have more redness, swelling, or pain in the incision area. You have more fluid or blood coming from your incision area. You have more pain when moving your shoulder. Get help right away if: Your incision area feels warm to the touch. You have pus or a bad smell coming from your incision area. The edges of the incision site break open after sutures have been removed. You have chest pain or shortness of breath. Summary It is common to have pain and stiffness in your shoulder and arm after the procedure. Put ice on the affected area and take pain medicine as told by your health care provider. Do not use your arm to push yourself up in bed or from a chair. Do exercises, including physical therapy, as told by your health care provider. Check your incision area daily. Call your health care provider if you see signs of infection. This information is not intended to replace advice given to you by your health care provider. Make sure you discuss any questions you have with your health care provider. Document Released: 03/09/2006 Document Revised: 12/12/2019 Document Reviewed: 06/04/2017 [employer] Patient Education 2020 [employer] [facility] Post-operative Instructions PLEASE FOLLOW [facility] POST-OP INSTRUCTIONS GIVEN WATCH FOR SIGNS OF INFECTION: call the office ([phone]) if experencing any of the following: (Usually appears 36-48 hours after surgery) Increased temperature (101 degrees Fahrenheit or higher) Redness or swelling Increased uncontrolled pain Foul odor or drainage Calf discomfort Significant swelling Or if having any chest pain, shortness of breath, or difficulty breathing or swallowing call the office or go the nearest Emergency Room. If you have any questions, please call your doctor at the number listed on your follow up instructions. Form: 338A ([id number]) R: 01/07 Add (more content not included)... [facility]02-28-2024 Note Date of Service October 31, 2023 Subjective The patient was sitting in bed upon examination. Patient denies any chest pain, shortness of breath, dizziness, lightheadedness, nausea or vomiting, or calf pain. No adverse overnight events. Pain has been controlled on medications. Patient has been using her CPAP overnight. She also reports the block is wearing off on the left upper extremity. Her pain is adequately controlled. Patient has had aprevious right reverse total shoulder arthroplasty by Phillip Cortez in June 2022. Patient overall is doing well this morning with no complaints. Objective Vitals and Measurements T: 36.5 C (Oral) TMIN: 35.22 C TMAX: 37.1 C (Oral) HR: 77(Apical) RR: 16 BP: 131/91 SpO2: 93% HT: 172.7 cm WT: 91 kg BMI: 30.51 Intake and Output 7AM Yesterday to 7AM Today Intake and Output (Last 24 hours) Intake Administration Information 1100.00 Output Intra-Op EBL 150.00 Urine Count 1.00 Total Summary Total Intake 1100.00 Total Output 150.00 Fluid Balance 950.00 Physical Exam Vital signs stable, afebrile SCDs and ANTONIO hose are in place bilaterally Dressing is clean dry and intact UltraSling fitting appropriately Sensation is intact to axillary, radial, median, and ulnar distribution Motor intact with patient able to make okay sign, cross fingers, and thumbs up Weight Dosing Weight: 91 kg (10/30/23) Dosing Weight: 91 kg (10/30/23) Medications Medications (28) Active Scheduled: (15) acetaminophen 500 mg Tablet 1,000 mg 2 tab(s), Oral, q6hr aspirin 81 mg Chewable 81 mg 1 tab(s), Oral, BID atorvastatin 40 mg tablet 40 mg 1 tab(s), Oral, Daily bisacodyl 5 mg EC tablet 10 mg 2 tab(s), Oral, Once docusate sodium 100 mg Capsule 100 mg 1 cap(s), Oral, BID docusate-senna (Senokot S) 50 mg-8.6 mg Tablet 2 tab(s), Oral, BID famotidine 20 mg tablet 20 mg 1 tab(s), Oral, qDay fluoxetine 20 mg Capsule 40 mg 2 cap(s), Oral, BID folic acid 1 mg tablet 1 mg 1 tab(s), Oral, qDay losartan 50 mg tablet 100 mg 2 tab(s), Oral, Daily magnesium hydroxide 8% Suspension 30 mL UD 30 mL, Oral, Daily meloxicam 7.5 mg tablet 7.5 mg 1 tab(s), Oral, BIDM metoprolol succinate 50 mg ER tablet 100 mg 2 tab(s), Oral, qDay ondansetron 2 mg/ 1 mL 2 mL INJ 4 mg 2 mL, IV Push, q8h traZODONE 50 mg Tablet 100 mg 2 tab(s), Oral, qHS Continuous: (1) Lactated Ringers 1000 mL 1,000 mL, Intravenous, 20 mL/hr PRN: (12) acetaminophen 325 mg Tablet 650 mg 2 tab(s), Oral, q4h diphenhydramine 25 mg tablet 25 mg 1 tab(s), Oral, q6h diphenhyDRAMINE 50 mg/mL (1 mL) INJ 25 mg 0.5 mL, IV Push, q6h hydroxyzine hcl 10 mg Tablet 20 mg 2 tab(s), Oral, TID ketorolac 30 mg/mL (1 mL) vial 15 mg 0.5 mL, IV Push, q6h LORAZEPam 0.5 mg tablet 1 mg 2 tab(s), Oral, BID melatonin 3 mg tablet 3 mg 1 tab(s), Oral, qHS ondansetron 2 mg/ 1 mL 2 mL INJ 4 mg 2 mL, IV Push, q8h oxycodone 5 mg tablet (immediate release) 5 mg 1 tab(s), Oral, q4h oxycodone 5 mg tablet (immediate release) 10 mg 2 tab(s), Oral, q4h prochlorperazine 10 mg/2 mL vial 5 mg 1 mL, IV Push, q6h sodium biphosphate-sodium phosphate 19 gm-7 gm Enema 133 mL, Rectal, qDay Lab Results 10/31 06:17 WBC: 11.4 H Hgb: 11.2 L Hct: 33.5 L Platelet: 127 L Neutrophil %: 80.9 H Glucose Level: 149 H Sodium Level: 142 Potassium Level: 4.5 BUN: 18 Creatinine Lvl (s): 1.06 H EKG No qualifying data available. Assessment/Plan GERD (gastroesophageal reflux disease) HTN (hypertension) Osteoarthritis 1. Status post left reverse total shoulder arthroplasty postop day #1 2. Continue pain medications: Tylenol, meloxicam, oxycodone. Do not take any other nonsteroidal anti-inflammatories while on meloxicam/Mobic 3. DVT prophylaxis: Take 81 mg aspirin twice daily with food for 2 weeks postoperatively for DVT prophylaxis. Patient denies past history of DVT or pulmonary embolism 4. Physical therapy: Continue with UltraSling at all times. Okay to take off sling for elbow range of motion and pendulum exercises 2-3 times daily. No range of motion of the operative shoulder. Marcela outpatient physical therapy after the 2-week follow-up at [facility]. 5. H & H: 11.2/33.5, asymptomatic. Postoperative anemia from surgery without intraoperative complications. At this time there is no need for treatment. 6. Reactive Leukocytosis: currently 11.4, afebrile. Patient did receive decadron intra-operatively.No clinical signs of infection. 7. Encouraged incentive spirometry. Patient does have underlying sleep apnea which she does requireCPAP at nighttime. She also reports chronic use of oxygen at nighttime in which she uses 3 L. She does not require oxygen during the day. 8. Continue postoperative medical management per medicine 9. Postoperative constipation: Discussed with the patient to continue stool softener until first bowel movement. After first bowel movement patient can then take as needed. They were also instructed that if they are not able to have a bowel movement within 3 days they are to contact our office for change of medication. Patient voiced understanding. 10. Disposition: Plan will be for discharge home today after morning physical therapy. Plan for discharge as long as she is medically stable, tolerates therapy exercises, and pain is adequately controlled. Patient will not proceed with outpatient physical therapy until after 2-week postoperative follow-up with [facility]. She will be instructed on pendulum exercises and elbow range of motion for the next 2 weeks. She would like her prescriptions E scribed to [facility]. She has outpatient physical therapy established. She will follow-up per postoperative instructions. Upon discharge she will contact her office with any concerns or questions. I have reviewed the [place] Automated Rx Reporting System (OARRS) report for this patient for refill pattern and other prescriber involvement as part of the appropriate surveillance for the provision ofacute and chronic controlled medications. The report was requested and reviewed on the date of thisentry, and was considered in the prescribing process This dictation was created using voice recognition software. Phonetic and/or grammatical errors mayexist. Sleep apnea Digitally Signed by BRUCE MEEHAN PA-C on 10/31/2023 07:25 AM [facility]02-27-2024 Note ORIGINAL EXAMINATION: TWO XRAY VIEWS OF THE LEFT SHOULDER10/30/2023 10:12 am COMPARISON: CT shoulder 10/05/2023 HISTORY: ORDERING SYSTEM PROVIDED HISTORY: Reason for Exam: Status Post Arthroplasty FINDINGS: Interval placement of a total reverse left shoulder arthroplasty. No evidence of hardware fracture or surrounding lucency. Small osseous fragment may represent degenerative change versus postoperative changes along the inferior glenoid and medial proximal humerus. Otherwise no acute osseous injury. No visible dislocation. Degenerative change within the acromioclavicular joint. The included thorax is not well evaluated on this exam however findings suggest possible low lung volumes. Soft tissue gas is noted surrounding the shoulder and likely representing expected postoperative changes. IMPRESSION: Interval total reverse left shoulder arthroplasty with suspected surrounding postoperative changes described above. Hypoventilatory changes. I have personally reviewed the images of this examination and agree with the resident's findings and interpretation. Interpreted by: Samson Pascal MD Preliminary Report By: Angy Haynes Electronically signed By Samson Pascal MD Dictated Date: 10/30/2023 10:19:44 AM Prelim Date: 10/30/2023 10:28:25 AM Sign Date: 10/30/2023 10:37:57 AM Ordering Provider: [facility]02-27-2024 Anesthesiology Progress note Patient: KRISTINA BURCH Age: 63 years Sex: Female : 1960 Associated Diagnoses: None Author: PINO CASTELLON APRN-SJ Preoperative Information Time of last food or liquid consumption: 10/29/2023 23:59:00 Anesthesia history Patient's history: negative. Family's history: negative. Review of Systems Ear/Nose/Mouth/Throat: Negative except as documented in history of present illness. Respiratory: Negative except as documented in history of present illness. Cardiovascular: Negative except as documented in history of present illness. Gastrointestinal: Negative except as documented in history of present illness. Genitourinary: Negative except as documented in history of present illness. Endocrine: Negative except as documented in history of present illness. Musculoskeletal: Negative except as documented in history of present illness. Integumentary: Negative except as documented in history of present illness. Neurologic: Negative except as documented in history of present illness. Health Status Allergies: Allergic Reactions (Selected) Severity Not Documented Dilaudid- Hallucinations. Relafen- Rash and swelling. Sulfa drug- Rash and swelling. TraMADol Hydrochloride- Rash and swelling. Ultram- Rash and swelling., Allergies (5) ActiveReaction DilaudidHALLUCINATIONS RelafenRASH sulfa drugSWELLING TraMADol HydrochlorideRASH UltramRASH Current medications: (Selected) Inpatient Medications Ordered Betadine 10% topical solution: 17.5 mL, mL/hr, Topical (INT), PREOP pharm Bolus LR 1000 mL: 1,000 mL, IV Bolus, PREOP pharm Cyklokapron IVPB: 2,000 mg, 20 mL, mL/hr, Topical (INT), PREOP pharm Decadron: 10 mg, 1 mL, IV Push, AsDirected LR 1000 mL: 20 mL/hr, Intravenous, Stop: 10/31/23 17:59:00 EST OxyCONTIN: 10 mg, 1 tab(s), Oral, PREOP pharm Pepcid IV: 20 mg, 2 mL, IV Push, PREOP pharm ceFAZolin: 2 gram(s), 200 mL/hr, IV Piggyback, PREOP pharm Documented Medications Documented Elderberry Gummies with Vitamin C and Zinc oral tablet, chewable: 2 tab(s), Chewed, qDay, 60 tab(s), 0 Refill(s) FLUoxetine 40 mg oral capsule: 40 mg, 1 cap(s), Oral, BID, 30 cap(s), 0 Refill(s) LORazepam 1 mg oral tablet: 1 mg, 1 tab(s), Oral, BID, PRN: as needed for anxiety, 0 Refill(s) Melatonin 3 mg oral tablet: 3 mg, 1 tab(s), Oral, qHS, PRN: for insomnia, 90 tab(s), 0 Refill(s) Metoprolol Succinate ER 100 mg oral TABLET extended release: 100 mg, 1 tab(s), Oral, qDay, 30 tab(s), 0 Refill(s) Multivitamin: 1 tab(s), Oral, Daily, 0 Refill(s) Vitamin D3 250 mcg (10,000 intl units) oral capsule: 250 mcg, 1 cap(s), Oral, qDay, 0 Refill(s) atorvastatin 40 mg oral tablet: 40 mg, 1 tab(s), Oral, Daily, 100 tab(s), 0 Refill(s) biotin: Oral, qDay, 0 Refill(s) calcium (as carbonate) 600 mg oral tablet: 600 mg, 1 tab(s), Oral, qDay, 0 Refill(s) cyclobenzaprine 10 mg oral tablet: 10 mg, 1 tab(s), Oral, TID, FIBROMYALGIA PAIN, PRN: as needed for spasm, 30 tab(s), 0 Refill(s) folic acid 1 mg oral tablet: 1 mg, 1 tab(s), Oral, qDay, 30 tab(s), 0 Refill(s) hydrOXYzine hydrochloride 10 mg oral tablet: 20 mg, 2 tab(s), Oral, TID, PRN: for anxiety, 80 tab(s), 0 Refill(s) losartan 100 mg oral tablet: 100 mg, 1 tab(s), Oral, Daily, 100 tab(s), 0 Refill(s) meloxicam 15 mg oral tablet: 15 mg, 1 tab(s), Oral, qDay, 30 tab(s), 0 Refill(s) traZODone 100 mg oral tablet: 100 mg, 1 tab(s), Oral, qHS, 0 Refill(s), Medications (8) Active Scheduled: (7) ceFAZolin 2 gram(s), IV Piggyback, PREOP pharm dexamethasone 10 mg/mL (1mL) SDV 10 mg 1 mL, IV Push, AsDirected famotidine 20 mg/2 mL vial 20 mg 2 mL, IV Push, PREOP pharm Lactated Ringers Injection 1000 mL * Bolus * 1,000 mL, IV Bolus, PREOP pharm oxyCODONE 10 mg ER tablet 10 mg 1 tab(s), Oral, PREOP pharm povidone iodine topical 17.5 mL, Topical (INT), PREOP pharm tranexamic acid 2,000 mg 20 mL, Topical (INT), PREOP pharm Continuous: (1) Lactated Ringers 1000 mL 1,000 mL, Intravenous, 20 mL/hr PRN: (0) Problem list: No problem items selected or recorded., Active Problems (13) Anxiety and depression Aortic aneurysm Chest pain Fibromyalgia GERD (gastroesophageal reflux disease) Gout HTN (hypertension) Incontinence Osteoarthritis Rheumatoid arthritis Shortness of breath Sleep apnea TMJ (dislocation of temporomandibular joint) Histories Past Medical History: No active or resolved past medical history items have been selected or recorded. Family History: High blood pressure Mother Stroke Father Procedure history: Tubal ligation ([id number]). Comments: 10/05/2023 9:19 Adri Hernandez RN x2 Appendectomy ([id number]). Brain ([id number]). Comments: 10/05/2023 9:20 Adri Hernandez RN hydrocephalus Bowel ([id number]). Comments: 10/05/2023 10:16 Adri Hernandez RN bowel resection w/ colostomy Colostomy ([id number]). Comments: 10/05/2023 10:17 EST - Treisch, Adri RN reversal Tennis elbow ([id number]). Comments: 10/05/2023 10:17 Adri Hernandez RN right Total hip replacement ([id number]). Comments: 10/05/2023 10:17 Adri Hernandez RN bilateral Total shoulder replacement ([id number]). Comments: 10/05/2023 10:18 Adri Hernandez RN right Tendon ([id number]). Comments: 10/05/2023 10:19 Adri Hernandez RN bicep repair Hernia repair ([id number]). Rotator cuff repair ([id number]). Comments: 10/05/2023 10:18 Adri Hernandez RN right Social History Social & Psychosocial Habits Alcohol 10/30/2023 Use: Current Type: Liquor, Wine Frequency: 1-2 times per month Substance Abuse 10/30/2023 Use: Never Tobacco 10/30/2023 Tobacco Use: Former smoker, quit more Comment: quit 2006 - 10/05/2023 09:22 Adri Velasquez RN Home/Environment 10/30/2023 Living situation: Home/Independent Domestic Concerns None Nutrition/Health 10/30/2023 Type of diet: Regular . Physical Examination Vital Signs 10/30/2023 6:52 EST Temperature Temporal Artery 36.1 DegC Peripheral Pulse Rate 66 bpm Respiratory Rate 17 br/min Systolic Blood Pressure Non-Invasive 134 mmHg Diastolic Blood Pressure Non-Invasive 69 mmHg Vital Signs(last 24 hrs) Last Charted [id number] mmHg (OCT 30 06:52) DBP69 mmHg (OCT 30 06:52) Measurements from flowsheet : Measurements 10/30/2023 6:52 EST Height 172.7 cm Height in inches 68 inch(es) Admission Weight 91 kg Weight Lbs 200.2 lb Weight Method Stated [place] Body Weight 63.88 kg Admission Body Mass Index 30.51 m2 Pain assessment: Pain Assessment 10/30/2023 6:52 EST Primary Pain Location Shoulder Primary Pain Laterality Left Primary Pain Intensity 7 Pain Scale Type 0-10 Pain scale . General: Alert and oriented. Airway: Normal neck range of motion. Mallampati classification: II (soft palate, fauces, uvula visible). Head: Normocephalic. Dentition Evaluation: Intact, Own teeth. Neck: Full range of motion. Respiratory: Lungs are clear to auscultation. Cardiovascular: Normal rate. Heart Sounds: Normal. Gastrointestinal: Soft. Musculoskeletal Normal range of motion. Integumentary: Intact, Warm, Dry. Neurologic: Alert, Oriented. Review / Management Results review: No qualifying data available , Lab results 10/30/2023 6:52 EST Height 172.7 cm Height in inches 68 inch(es) Admission Weight 91 kg Weight Lbs 200.2 lb Weight Method Stated [place] Body Weight 63.88 kg Admission Body Mass Index 30.51 m2 Temperature Temporal Artery 36.1 DegC Peripheral Pulse Rate 66 bpm Respiratory Rate 17 br/min Systolic Blood Pressure Non-Invasive 134 mmHg Diastolic Blood Pressure Non-Invasive 69 mmHg Primary Pain Location Shoulder Primary Pain Laterality Left Primary Pain Intensity 7 Pain Scale Type 0-10 Pain scale Monitor Alarms On and Limits Checked Heart Sounds ICU S1S2 Heart Rhythm Regular Oxygen Therapy Room air Oxygen Saturation 96 % Abdomen Description Non-distended, Symmetric, Soft Abdomen Palpation Non-Tender, Soft Bowel Sounds All Quadrants Present Skin Temperature Warm Skin Description [place] Skin Integrity Intact Extremity Movement Equal Characteristics of Speech Clear Level of Consciousness Alert ALLEGRA Yes Strength All Extremities Strong Tone All Extremities Normal Sensation All Extremities Intact Affect/Behavior Appropriate, Calm, Cooperative Orientation Oriented x 4 Orientation Assessment Oriented x 4 Assistive Device None Positioning Repositions self Activity Status ADL Awake Sequential Compression Device bilateral knee high applied/on Antiembolism Stocking On/Re-applied bilateral thigh high Standard Safety ID band on, Allergy Band on, Call device within reach, Bed in low position, Wheels locked, Upper/Half-Length side-rails up, Safety level maintained, Non-Slip footwear Demonstrates Correct Call Light Use Yes 10/30/2023 6:48 EST Urinary Elimination Voiding, no difficulties IV Present Present Allergies Yes Anesthesia Extension Set Applied Yes Rotary Helper On Yes Consent Form Signed Yes Patient Dressed In Hospital gown, No undergarments Pre-op Preparation Glasses removed CHG Preoperative Wash/Wipe Night before procedure, Day of procedure Preop Nasal Swab Povidone-Iodine CHG Skin Prep Completed for Eligible Surgery History & Physical Update On Chart Yes History & Physical On Chart Yes Obstructive Sleep Apnea Assess Completed Yes NPO Status Maintained Allergy Band on and Verified Yes Blood Band on and Verified Yes Patient ID Band on and Verified Yes Implants Verified Yes Pacemaker/AICD Verified Yes Site Verified by Patient/Family Yes Anesthesia Consent Signed Yes Blood Consent Signed Yes Last Fluid Intake 10/29/2023 22:30 Last Food Intake 10/29/2023 22:30 Last Void 10/30/2023 6:51 10/30/2023 6:38 EST SN - Preop - CTm Pt in SDS Room 10/30/2023 6:35 10/30/2023 6:34 EST citric acid-sodium citrate Not Done: Not Appropriate at this Time (Not Done) . Assessment and Plan [place] [employer]esthesiologists (ASA) physical status classification: Class II. Anesthetic Preoperative Plan Premedication: intravenous. Anesthetic technique: General, Regional. Induction: intravenously. Maintenance airway: Oral endotracheal tube. Regional: Interscalene Block. Postoperative pain management: Per surgeon. Risks discussed: nausea, vomiting, headache, sore throat, dental injury, hypotension, allergic reaction, serious complications. Informed consent: signed by patient. Digitally Signed by PINO CASTELLON on 10/30/2023 07:04 AM [facility]02-21-2024 History of Present illness Narrative * Claribel Mason LPN - 10/24/2023 8:17 AM EST Scan on 10/23/2023 4:13 PM by Provider, ILIR Turcios: Echo documented in this encounterOhio[facility]-07-[facility] History of Present illness Narrative* Rose Marie Love, RT(R) - 10/10/2023 10:10 AM EST Radiology Service Progress Note PATIENT NAME: Kristina Burch DATE OF SERVICE: October 10, 2023 TIME: 9:59 AM PATIENT IDENTITY VERIFICATION COMPLETED USING TWO (2) IDENTIFIERS: Name and Date of confirmedby patient verbally. FALL SCREENING: Has the patient had 2 falls in the last year or 1 fall with injury or currently using an Ambulatory Assistive Device (Walker, Cane, Wheelchair, Crutches, etc.)? No PATIENT GENDER DATA: Female. status: : No status: NO. PATIENT RELEVANT IMPLANT DATA REVIEWED: Yes PATIENT PRESENTS WITH AN IMPLANTABLE OR ATTACHED CLOTH TESTER QUALITY: No RADIOLOGY DEPARTMENT: General X-ray: Exam(s) Completed: Upper Extremity X- Ray(s): Fingers/Thumb, left PERIPHERAL IV DATA: Not applicable SIGNED BY: RT Jhony(R) October 10, 2023 9:59 AM documented in this encounterOhiohealth [facility]02-07-2024 History of Present illness Narrative* Ganga Nunez MD - 10/10/2023 9:00 AM EST Chief Complaint Patient presents with: Pre-Op Exam HPI Kristina Burch is a 63 year old female who presents here today for Pre op. Patient is here today for a pre op appointment. Patient is currently scheduled for a left reverse total shoulder arthroplasty to be completed at [facility] on 10/23/[address] Cortez. Patient did mentioned her left thumb she cannot bend it. Been ongoing for about 2 months. Patient to call cardio to get clearance. Patient sees Dr. Quarles for lung nodule; COVID long hauler; Noctural hypoxemia. - last visit 10/02/[address] Waddell for insomnia 10/01/2023 Patient sees [facility] last visit 08/[address] Burnett for allergy Past medical history, appointments, medications, allergies reviewed. Previous Medical History PAST MEDICAL HISTORY Diagnosis Date Abnormal mammogram Acute respiratory disease due to COVID-19 virus 06/16/[address] 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 Scott Quarles Postcoital bleeding Primary insomnia 06/13/2021 Primary osteoarthritis of both knees 11/15/2022 Primary osteoarthritis of both shoulders 04/06/2022 Seeing [facility] Rectocele 04/19/2007 Renal cyst 07/13/2016 Rheumatoid arthritis ([facility]) 04/24/2023 Seeing Rheum. Right knee pain Situational mixed anxiety and depressive disorder 11/12/2017 Spinal stenosis, lumbar region, without neurogenic claudication 11/15/2022 Thoracic aortic aneurysm without rupture ([facility]) 2018 Urge incontinence 04/19/2007 Vitamin D deficiency [...] by mouth daily at bedtime. For cholesterol. losartan (COZAAR) 100 mg tablet Take 1 tablet by mouth once daily. traZODone (DESYREL) 100 mg tablet Take 1 tablet by mouth daily at bedtime. melatonin 3 mg tablet Take 1 tablet at ~8PM nightly (if miss the dose, skip until the next day). folic acid 1 mg tablet Take 1 tablet by mouth once daily. hydrOXYzine HCl (ATARAX) 10 mg tablet Take 1 tablet by mouth three times a day as needed. FLUoxetine (PROZAC) 40 mg capsule Take 1 capsule by mouth twice daily. meloxicam (MOBIC) 15 mg tablet Take [...] filters. Fax 30 day download report to [phone] to assess residual ahi. vit C-Zn gluc-herbal no.325 (ELDERBERRY ZINC VIT C) 90-15 mg lozg Use 1 Lozenge as instructed twicedaily. calcium carbonate (CALTRATE 600 ORAL) Take 1 [...] 04/26/2010 Years since quittin.4 Smokeless tobacco: Never Vaping Use Vaping Use: [...] RESPIRATORY: Negative for cough, hemoptysis, wheezing, COPD, increased dyspnea or shortness of breath CARDIOVASCULAR: Negative for chest pain, leg swelling, hypertension, CHF or palpitations GI: No nausea, vomiting, or diarrhea and no stomach pain. : No history of dysuria, blood. MUSCULOSKELETAL: has chronic pain in the left shoulder due to arthritis. SKIN: Negative for lesions, rash, and itching HEMATOLOGY/LYMPHOLOGY: Negative for prolonged bleeding, bruising easily or swollen nodes ENDOCRINE: Negative for cold or heat intolerance, polyuria, polydipsia and goiter NEURO: No history of headaches, syncope, paralysis, seizures or tremors Musc: swelling in the PIP and MCP joint left thumb. Decreased ROM with pain. EXAM: BP 122/90 (BP Site: Left Arm, BP Position: Sitting, BP Cuff Size: Regular Adult) Pulse 70 Resp 16 Wt 90.3 kg (199 lb) LMP 08/04/2008 BMI 29.39 kg/m BP 130/82 Pulse 70 Resp 16 Wt 90.3 kg (199 lb) LMP 08/04/2008 BMI 29.39 kg/m Last 5 Encounter Wt Readings: Date: Wt: 10/10/2023 90.3 kg (199 lb) 10/02/2023 89.8 kg (198 lb) 10/01/2023 90 kg (198 lb 6.4 oz) 08/10/2023 89.6 kg (197 lb 9.6 oz) 07/13/2023 89.8 kg (198 lb) General Appearance: Well appearing, alert, in no acute distress, well-hydrated, well nourished.. Skin: Skin color, texture, turgor normal, no suspicious rashes or lesions. In the left shoulder area. Head: Normocephalic, no masses, lesions, tenderness or abnormalities. Eyes: Anicteric sclera. Pupils are equally round and reactive to light. Extraocular movements are intact. . Ears: External ears normal, canals clear. Nose/Sinuses: [...] symmetric. Sensation to light touch and crainal nerves2-12 intact.. Health Maintenance List RSV Vaccine(1 - 1-dose 60+ series) Never done BP Controlled (<130/80) due on 06/13/2022 Influenza Vaccine(1) due on 05/04/2023 Advance Directive Discussion Never done Shingrix Vaccine(1 of 2) due on 04/24/2024 Covid-19 Vaccine(1) due on 04/24/2024 Annual PCP Team Chronic Disease Visit due on 05/24/2024 Mammogram Screening due on 06/08/2024 Diabetes Screening due on 06/08/2026 Colorectal Cancer Screening due on 05/05/2027 Lipid Screening due on 10/09/2027 DTaP,Tdap,Td Vaccine(5 - Td or Tdap) due on 03/12/2030 Bone Density Screening Completed Hepatitis C Screening Completed Pneumococcal Vaccine: 65+ Completed Pap Testing Discontinued HIV Screening Discontinued Data reviewed In Office EKG: NSR with no acute changes and no changes compared to EKG from 03/27/2023. Component Latest Ref Rng & Units 10/10/2023 WBC 3.70 - 11.00 k/uL 4.95 RBC 3.90 - 5.20 m/uL 4.46 Hemoglobin 11.5 - 15.5 g/dL 12.7 Hematocrit 36.0 - 46.0 % 39.4 MCV 80.0 - 100.0 fL 88.3 MCH 26.0 - 34.0 pg 28.5 MCHC 30.5 - 36.0 g/dL 32.2 RDW-CV 11.5 - 15.0 % 13.9 Platelet Count 150 - 400 k/uL 208 MPV 9.0 - 12.7 fL 11.6 Neut% % 51.2 Abs Neut (ANC) 1.45 - 7.50 k/uL 2.53 Lymph% % 32.3 Abs Lymph 1.00 - 4.00 k/uL 1.60 Costilla% % 13.1 Abs Costilla <0.87 k/uL 0.65 Eosin% % 2.8 Abs Eosin <0.46 k/uL 0.14 Baso% % 0.4 Abs Baso <0.11 k/uL <0.03 Immature Gran % % 0.2 IMMATURE GRANS (ABS) <0.10 k/uL <0.03 NRBC /100 WBC 0.0 Absolute nRBC <0.01 k/uL <0.01 DTYPE Auto Glucose 74 - 99 mg/dL 104 (H) BUN 7 - 21 mg/dL 17 Creatinine 0.58 - 0.96 mg/dL 0.89 Sodium 136 - 144 mmol/L 139 Potassium 3.7 - 5.1 mmol/L 4.5 Chloride 97 - 105 mmol/L 101 CO2 22 - 30 mmol/L 25 Anion Gap 9 - 18 mmol/L 13 Calcium 8.5 - 10.2 mg/dL 9.7 eGFR >=60 mL/min/1.73m 72 A/P ASSESSMENT/PLAN: 1. Pre-op examination - ICD9: V72.84, ICD10: Z01.818 (primary diagnosis) This is a Moderate risk procedure per the ACC/AHA Classification of Surgical Procedure Risk. Per the Aidan's Simple Cardiac Risk Index she has a 0.4% risk. Her functional capacity is at a Moderate level. No further testing is needed. Patient is clear from a medical stand point to proceed with surgery. Will need input from cardio regarding her aneurisms. check - ECG COMPLETE - BASIC METABOLIC PNL - CBC + DIFF 2. Arthritis of left shoulder region - ICD9: 716.91, ICD10: M19.012 - plan is for reverse total shoulder replacement per Dr. Cortez. 3. Chronic left shoulder pain - ICD9: 719.41, 338.29, ICD10: M25.512, G89.29 - as per #2 4. Hypertension, essential - ICD9: 401.9, ICD10: I10 - Controlled - Continue current medications - Recommend home blood pressure monitoring, to bring results to next visit - Encouraged sodium restriction, DASH or Mediterranean diet - Recommend regular aerobic exercise - ECG COMPLETE - BASIC METABOLIC PNL 5. Thoracic aortic aneurysm without rupture, unspecified part (HCC) - ICD9: 441.2, ICD10: I71.20 - managed per [facility]- - if clearance needed regarding this diagnosis Ortho will need to obtain from cardio. 6. Ascending aorta dilatation (HCC) - ICD9: 447.71, ICD10: I77.810 - as per #5 7. Thumb pain, left - ICD9: 729.5, ICD10: M79.645 Check - XR DIGIT GENERAL 3V FRONTAL/LAT/OBL LEFT F/u next routine Ganga Nunez MD documented in this encounterOhio[facility]02-02-2024 Note ORIGINAL EXAMINATION: CT OF THE LEFT SHOULDER WITHOUT CONTRAST 10/05/2023 10:35 am TECHNIQUE: CT of the left shoulder was performed without the administration of intravenous contrast. Multiplanar reformatted images are provided for review. Automated exposure control, iterative reconstruction, and/or weight based adjustment of the mA/kV was utilized to reduce the radiation dose to as low as reasonably achievable. COMPARISON: None. HISTORY ORDERING SYSTEM PROVIDED HISTORY: Reason for Exam: primary osteoarthritis left shoulder FINDINGS: Acromioclavicular joint arthrosis noted. Corticated ossicle near the superior margin of the AC joint may relate to old trauma. Advanced glenohumeral joint arthrosis seen with large inferior glenohumeral spurs. Significant joint space loss noted. No significant central bone loss is identified in the glenoid. There is glenoid retroversion. No aggressive bony lesions identified. Glenohumeral effusion noted. No suspicious findings identified in the visualized left lung. Heart is borderline in size but incompletely evaluated. The central pulmonary arteries are large in caliber. The aorta arch is ectatic. IMPRESSION: 1. Advanced glenohumeral joint arthrosis. 2. Acromioclavicular joint arthrosis. 3. Glenoid retroversion Interpreted by: Ashwin Lawrence MD Preliminary Report By: Ashwin Lawrence MD Electronically signed By Ashwin Lawrence MD Dictated Date: 10/05/2023 12:59:42 PM Prelim Date: 10/05/2023 1:05:49 PM Sign Date: 10/05/2023 1:05:49 PM Ordering Provider: [facility]12-26-2023 Note HNO ID: [id number] Author: Bita Blair CT Service: Radiology Author Type: Technologist Type: Progress Notes Filed: 08/28/2023 7:57 AM Note Text: Radiology Service Progress Note PATIENT NAME: Kristina Burch DATE OF SERVICE: August 28, 2023 TIME: [...] BY: SERGIO Mayorga August 28, 2023 7:57 AMUpper Valley Medical [id number] Miscellaneous Notes* Telephone Encounter - Rowan Tucker MA - 08/22/2023 8:40 AM EST Patient faxed requesting the following refill. Requested Prescriptions Pending Prescriptions Disp Refills folic acid 1 mg tablet 90 tablet 0 Sig: Take 1 tablet by mouth once daily. Patient last appointment: 05/28/2023 Next Appointment: 09/20/2023 Patient Phone numbers: [phone] (home) Request is for script(s) to be escript to pharmacy. Rowan Tucker MA documented in this encounterOhiohealth [facility]12-13-2023 History of Present illness Narrative* Chelsey Hinkle LPN - 08/15/2023 2:40 PM EST Scan on 08/15/2023 11:47 AM by ProviderKarolina PA-C: Hematology Scan on 08/15/2023 12:14 PM by ProviderKarolina PA-C: Chemistry Scan on 08/15/2023 12:32 PM by ProviderKarolnia PA-C: Consultation - Cardiology documented in this encounterOhiohealth [facility]12-08-2023 History of Present illness Narrative* Ganga Choe APRN.VICKY - 08/10/2023 9:08 AM EST Subjective HPI Nontoxic-appearing female presents to urgent care with chief complaint of fever and cough. Durationof symptoms 3 days Associated symptoms with today's chief complaint are on and off headache, muscleaches, fatigue, nonproductive cough, and low grade temperature. Patient stated symptoms started abruptly. Patient states they have used [id number] medication with some success. Sick contacts similar signs of symptoms. Patient denies any pain at this time. Patient denies any visual changes, visual disturbance, shortness of breath, rash, exercise intolerance, pleuritic pain, productive cough,abdominal pain, nausea, vomiting, chest pain, or change in bowel or bladder habits. Risk factors acute respiratory distress COVID-19, diabetes hypertension autoimmune disease. Past medical history prescription medication use allergies reviewed. .Patient presents with: Ear Pain: Bilateral ear pain, sinus, congestion, ST and fever x 3 days PAST MEDICAL HISTORY Diagnosis Date Abnormal mammogram Acute respiratory disease due to COVID-19 virus 06/16/[address] Scott Quarles Advance directive discussed with patient 04/06/2022 Discussed [...] Dependence on nocturnal oxygen therapy 04/24/2023 Seeing [facility] Elevated hemoglobin A1c 04/24/2023 Essential tremor 04/06/2022 Ex-smoker 04/06/2022 Excessive or frequent menstruation Heavy periods Fibromyalgia 02/26/2014 Hemorrhage of gastrointestinal tract, unspecified History of COVID-19 06/13/202105/2021 Hydrocephalus, adult (HCC) 02/09/2003 Hypertension, essential 01/22/2019 Living will on file 04/06/2022 DPA: Dustin () Lung nodule 01/24/2022 Seeing pulm Migraines 07/26/2021 Used to see neuro and was getting Botox Mild dysplasia of cervix 2006 Mixed hyperlipidemia 01/20/2016 Nonrheumatic mitral valve disorder, unspecified 04/06/2016 Obstructive sleep apnea 10/13/2016 DME - [facility] Plantar fasciitis 2018 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 Scott Quarles Postcoital bleeding Primary insomnia 06/13/2021 Primary osteoarthritis [...] filters. Fax 30 day download report to [phone] to assess residual ahi. vit C-Zn gluc-herbal no.325 (ELDERBERRY ZINC VIT C) 90-15 mg lozg Use 1 Lozenge as instructed twicedaily. calcium carbonate (CALTRATE 600 ORAL) Take 1 [...] Wt 89.6 kg (197 lb 9.6 oz) LMP110/05/2007 SpO2 95% BMI 29.18 kg/m Review of [...] is otherwise unremarkable at this time. Based onexam and clinical finding, the patient is stable for discharge. Plan of care was discussed with patient. Patient verbalizes understanding and agrees to plan of care. This note was generated using Tomfoolery software. It may contain errors in wording, punctuation, or spelling. Ganga Choe APRN.E[employer] documented in this encounterOhiohealth [facility]12-07-2023 Miscellaneous Notes* Telephone Encounter - Claribel Mason LPN - 08/09/2023 11:13 AM EST Received pre-op clearance fors from [facility] for pt's left reverse total shoulder arthoplasty scheduled on . Pt does have an appointment scheduled for 10/10/[address] Nunez. Forms placedon pcp's desk. Claribel Mason LPN documented in this encounterOhiohealth [facility]11-07-2023 History of Present illness Narrative* Claribel Mason LPN - 07/10/2023 10:12 AM EST Scan on 07/09/2023 11:55 AM by Provider, ILIR Turcios: Ultrasound documented in this [facility]10-20-2023 History of Present illness Narrative* Claribel Mason LPN - 06/22/2023 1:35 PM EDT Scan on 06/22/2023 12:45 PM by ProviderKarolina PA-C: Bone Density documented in this encounterOhiohealth [facility]10-17-2023 History of Present illness Narrative* Claribel Mason LPN - 06/19/2023 9:42 AM EDT Scan on 06/18/2023 11:57 AM by Provider, ILIR Turcios: Orthopedics documented in this encounterOhiohealth [facility]10-16-[address] [facility]10-12-2023 Miscellaneous Notes* Telephone Encounter - Aarti Garay LPN - 06/14/2023 9:32 AM EDT Pt is at [facility] for DXA scan but does not have an order. I have faxed that to [phone] Nina did receive this order at 0929 today. Aarti Garay LPN documented in this encounterOhiohealth [facility]10-06-2023 History of Present illness Narrative* Maryellen Lee Mammo Tech - 06/08/2023 2:50 PM EDT Radiology Service Progress Note PATIENT NAME: Kristina Burch DATE OF SERVICE: June 08, 2023 TIME: 2:05 PM PATIENT IDENTITY VERIFICATION COMPLETED USING TWO (2) IDENTIFIERS: Name and Date of confirmedby patient verbally. FALL SCREENING: Has the patient [...] 08, 2023 2:05 PM documented in this encounterOhiohealth [facility]09-30-2023 Miscellaneous Notes* Telephone Encounter - Kena Kim Ma - 06/02/2023 11:11 AM EDT Last Rx: 05/16/22 #60 w/1. Last OV: 05/24/23 Next OV: 10/26/23 Kena Kim Ma documented in this encounterOhiohealth [facility]09-29-2023 History of Present illness Narrative* Nadira Springer PA-C - 06/01/2023 10:18 AM EDT This note was created using Virsto Softwareriter. Subjective Kristina Burch is a 63 year old female seen today via zoom visit. She is here for evaluation of hydrocephalus. She is s/p neuroendoscopic third ventriculostomy with Dr. Noble is 2000. She was seenlast year with some issues with walking. We did a high volume LP and she never followed up after this. She is supposed to get a surgery on her hip on June 18. She feels that her walking was due to the hip. Doesn't remember having the LP last year. She statesthat she had an injection which helped. So [...] which included preparing to see the patient, [id number] patient care, completing clinical documentation, obtaining and/or reviewing separately obtained history, counseling and educating the patient/family/caregiver, ordering medications, earlene ts, or procedures, communicating with other HCPs (not separately reported), and care coordination (not separately reported). This virtual visit was conducted via [employer]ist which is a HIPAA compliant video platform. I received consent from the patient to perform the visit using this platform. The visit required patient-provider interaction for the medical decision making as documented herein. I have communicated my name and active licensure. The patient's identity and physical location wereverified at the time of this visit. Either the patient or their legal premium service representative has been informed of the risks and benefits of -- and alternatives to -- treatment through a remote evaluation andconsents to proceed with the evaluation remotely. documented in this encounterOhiohealth [facility]09-25-2023 Instructions* Patient Instructions* Reginaldo Burnett MD - 05/28/2023 8:32 AM EDT BONE MINERAL DENSITY PATIENT INSTRUCTIONS Bone mineral density testing measures the amount of calcium in certain parts of your bones. This information determines how strong your bones are. The test is used to detect osteoporosis, a disease in which the bone's mineral content and density are low, increasing a person's risk of fractures. Thelumbar spine (lower back) and the hip are [...] your usual activities immediately. documented in this encounterOhiohealth [facility]ering[facility]09-25-2023 History of Present illness Narrative* Reginaldo Burnett MD - 05/28/2023 8:20 AM EDT This note was created using Virsto Softwareriter. Subjective Kristina Burch is a 63 year old female. 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 Started smoking age 24, quit smoking 26, then off and on, quit 2012 Rare ETOH 02/07/23 No marijuana 02/07/23 02/07/23 3 children healthy 02/07/23 1 brother no med issue no info 02/07/23 1 sister knee OA, thyroid 02/07/23 Father age 78 02/07/23 ( father had gout ) Mom cardiac aneurysm and HTN 84 02/07/23 documented in this encounterOhiohealth [facility]09-21-2023 History of Present illness Narrative* Selam Argueta APRN.[employer] - 05/24/2023 12:55 PM EDT Chief Complaint Patient presents with: Pre-Op Exam HPI Kristina Burch is a 63 year old female who presents here today for Above Complaints.. Patient presents for pre op clearance for right hip arthroplasty. Patient has already received clearance from cardiology. Patient currently on methotrexate and plaquenil. Past medical history, appointments, medications, allergies reviewed. Previous Medical History PAST MEDICAL HISTORY Diagnosis Date Abnormal mammogram Acute respiratory disease due to COVID-19 virus 06/16/[address] Scott Quarles Advance directive discussed with patient 04/06/2022 Discussed [...] Dependence on nocturnal oxygen therapy 04/24/2023 Seeing [facility] Elevated hemoglobin A1c 04/24/2023 Essential tremor 04/06/2022 Ex-smoker 04/06/2022 Excessive or frequent menstruation Heavy periods Fibromyalgia 02/26/2014 Hemorrhage of gastrointestinal tract, unspecified History of COVID-19 06/13/202105/2021 Hydrocephalus, adult (HCC) 02/09/2003 Hypertension, essential 01/22/2019 Living will on file 04/06/2022 DPA: Dustin () Lung nodule 01/24/2022 Seeing pulm Migraines 07/26/2021 Used to see neuro and was getting Botox Mild dysplasia of cervix 2006 Mixed hyperlipidemia 01/20/2016 Nonrheumatic mitral valve disorder, unspecified 04/06/2016 Obstructive sleep apnea 10/13/2016 DME - [facility] Plantar fasciitis 2018 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 Scott Quarles Postcoital bleeding Primary insomnia 06/13/2021 Primary osteoarthritis [...] filters. Fax 30 day download report to [phone] to assess residual ahi. fluticasone (FLONASE) 50 mcg/actuation nasal spray Use 2 Sprays in each nostril once daily. Rinse mouth after use. vit C-Zn gluc-herbal no.325 (ELDERBERRY ZINC VIT C) 90-15 mg lozg Use 1 Lozenge as instructed twicedaily. 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 Burnett who advised patient should hold methotrexate starting [...] optimized for surgery. Discussed case with Dr. Burnett and patientadvised to hold methotrexate from now until surgical incision is healed. Selam Argueta APRN.E[employer]ATOR CONSTRUCTOR [employer]IC documented in this encounterOhiohealth [facility]09-18-2023 Miscellaneous Notes* Telephone Encounter - Abelardo Duran LPN - 05/21/2023 2:37 PM EDT Pt notified. She states she has an appt with Edwina tomorrow, could she discuss with her at that appt? I advised pt that she is seeing Edwina for a preop appt and that she would also need to see PCP to discuss. Pt is scheduled to see PCP on 05/31 (for 40 min) advised she keep that appt AND try andcontact providers who performed injections/PT. Pt verbalized understanding. Abelardo Duran LPN * Telephone Encounter - Ganga Nunez MD - 05/21/2023 12:54 PM EDT Let patient know I would need to [...] history and review the chart with her. * Telephone Encounter - Paulina Jalloh LPN - 05/21/2023 11:32 AM EDT Pt calls to report that [facility] needs something for insurance that states that pt has tried PT and injections (done at [facility]) for right hip pain. Also that pain limits pt's function. Pt reports she went from fully functioning to walking with a cane and now uses a walker. Pt reports [facility] needs this information in order for insurance to ok right hip surgery. Paulina Jalloh LPN documented in this encounterOhiohealth [facility]09-15-2023 Miscellaneous Notes* Telephone Encounter - Cathi Almaraz RN - 05/18/2023 11:28 AM EDT Called and left a detailed voicemail notifying patient of providers message. Hospital phone number was left in case patient had any questions. Cathi Almaraz, RN * Telephone Encounter - Ganga Nunez MD - 05/17/2023 11:49 PM EDT Let patient know her carotid US was ok. No significant narrowing on either side. documented in this encounterOhiohealth Pickering[facility]08-31-2023 History of Present illness Narrative* Dixie Jackson - 05/03/2023 9:11 AM EDT POPULATION HEALTH NAVIGATION OUTREACH Action/[facility] [place] Support: Called pt to schedule an appt [...] BONE DENSITY due on 2023 Navigation Signature: Dxiie Jackson May 03, 2023 9:11 AM documented in this encounterOhiohealth Pickering[facility]08-23-2023 Miscellaneous Notes* Telephone Encounter - Claribel Mason LPN - 04/25/2023 2:41 PM EDT Patient notified of results and provider's instructions. Patient verbalizes understanding. Pt states [facility] was still waiting on US orders. Checked with office. Orders for heart monitor have been faxed to [facility]. Pt is already scheduled at [facility] for US. Pain Management referral has been approved by pt's insurance. Called pt back and left vm with all of this info. Advised pt she can call scheduling to set up pain management appointment. Claribel Mason LPN * Telephone Encounter - Ganga Nunez MD - 04/25/2023 1:36 PM EDT Let patient know Thyroid labs, Vit D and tests for dry mouth were all normal. Her blood sugar test was normal this time. Her urine shows signs of a UTI and sent in a antibiotic to [facility]. The following approved medication requests have been transmitted electronically. Requested Prescriptions Signed Prescriptions Disp Refills nitrofurantoin monohydrate and macrocrystal (MACROBID) 100 mg capsule 14 capsule 0 Sig: Take 1 capsule by mouth twice daily with meals for 7 days. Authorizing Provider: GANGA NUNEZ MD documented in this encounterOhiohealth Pickering[facility]08-22-2023 Miscellaneous Notes* Telephone Encounter - Nadira Springer PA-C - 04/24/2023 10:23 AM EDT Follow up 4-6 weeks Nadira Springer No imaging hydrocephalus documented in this encounterOhiohealth [facility]ering[facility]08-22-2023 Instructions* Patient Instructions* Ganga Nunez MD - 04/24/2023 9:16 AM EDT Consider getting the shingrix vaccine for the prevention of shingles from a local pharmacy documented in this encounterOhiohealth [facility]ering[facility]08-22-2023 History of Present illness Narrative* Ganga Nunez MD - 04/24/2023 7:45 AM EDT Medicare Yearly Visit Medical B eligibilty date 04/03/2023 Date of last exam NA PAST MEDICAL HISTORY Diagnosis Date Abnormal mammogram Acute respiratory disease due to COVID-19 virus 06/16/[address] Scott Quarles Advance directive discussed with patient 04/06/2022 Discussed [...] disease), lumbar 07/24/[address] Jose Raul Machuca Elevated hemoglobin A1c 04/24/2023 Essential tremor 04/06/2022 Ex-smoker 04/06/2022 Excessive or frequent menstruation Heavy periods Fibromyalgia 02/26/2014 Hemorrhage of gastrointestinal tract, unspecified History of COVID-19 06/13/202105/2021 Hydrocephalus, adult (HCC) 02/09/2003 Hypertension, essential 01/22/2019 Living will on file 04/06/2022 DPA: Dustin () Lung nodule 01/24/2022 Seeing pulm Migraines 07/26/2021 Used to see neuro and was getting Botox Mild dysplasia of cervix 2006 Mixed hyperlipidemia 01/20/2016 Nonrheumatic mitral valve disorder, unspecified 04/06/2016 Obstructive sleep apnea 10/13/2016 DME - [facility] Plantar fasciitis 2018 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 Scott Quarles Postcoital bleeding Primary insomnia 06/13/2021 Primary osteoarthritis of both knees 11/15/2022 Primary osteoarthritis of both shoulders 04/06/2022 [facility] Rectocele 04/19/2007 Renal cyst 07/13/2016 Rheumatoid arthritis (HCC) 04/24/2023 Seeing Rheum. Right knee pain Situational mixed anxiety and depressive disorder 11/12/2017 Spinal stenosis, lumbar region, without neurogenic claudication 11/15/2022 Thoracic aortic aneurysm without rupture ([facility]) 2018 Urge incontinence 04/19/2007 Vitamin D deficiency [...] diet for sodium, low fat and low cholesterolmost of the time. List of current specialists seen: Dr. Burnett (Rheum) Dr. Blunt ([facility]) Neuro, [facility] (Cardio) Dr. Scott Quarles (pulm) End of Live Planning discussed including patients advanced directive wishes: Yes I am willing to follow Krisitna's advanced directives. PHQ-2 / Depression screen Depression [...] 92 Resp 18 Ht 175.3 cm (5' 9) Wt 88.9 kg (196 lb) LMP 08/04/2008 BMI 28.94 kg/m Alert and oriented X 3: YES Body mass index is 28.94 kg/m . Visual acuity: seeing optho See below ASSESSMENT/PLAN: 62 year old female The following prevention plan was discussed during the office visit and provided to the patient: See below Ganga Nunez MD Chief Complaint Patient presents with: Physical HPI Kristina Burch is a 62 year old female who presents here today for Physical. Office visit - physical 04/24/2023 Patient with hx of hyperlipidemia, HTN, thoracic aortic aneurysm, aorta dilatation, aortic regurg, HUBER, anxiety/depression, vit d def. Fibro, insomnia, post COVID dyspnea, hydrocephalus and those as below. Patient's pain is not well controlled. She saw Dr. Bustillos back in November but then never heard back.Would like to establish with [facility] for pain [...] Also was when she was in her day putting seat belt on she turned and felt a pop having pain in left shoulder. Patient discussed her balance issues along with her incontinence and memory concerns with her Neurologist recently and underwent a lumbar puncture with her Hx of Hydrocephalus. Patient feels this wasbeneficial but still with some symptoms. 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 Scott Quarles Postcoital bleeding Primary insomnia 06/13/2021 Primary osteoarthritis of both shoulders 04/06/2022 Seeing [facility] Rectocele 04/19/2007 Renal cyst 07/13/2016 Right knee [...] filters. Fax 30 day download report to [phone] to assess residual ahi. fluticasone (FLONASE) 50 mcg/actuation nasal spray Use 2 Sprays in each nostril once daily. Rinse mouth after use. vit C-Zn gluc-herbal no.325 (ELDERBERRY ZINC VIT C) 90-15 mg lozg Use 1 Lozenge as instructed twicedaily. losartan (COZAAR) 50 mg tablet 50 mg [...] 92 Resp 18 Ht 175.3 cm (5' 9) Wt 88.9 kg (196 lb) LMP 08/04/2008 BMI 28.94 kg/m Last 5 Encounter Wt Readings: Date: Wt: 04/24/2023 88.9 kg (196 lb) 04/04/2023 88.5 kg (195 lb) 03/26/2023 87.5 kg (193 lb) 02/07/2023 86.2 kg (190 lb) 11/17/2022 87.1 kg (192 lb) General Appearance: Well appearing, alert, in no acute distress, well-hydrated, well nourished. andOverweight. Skin: Skin color, texture, turgor normal, no [...] symmetric. Sensation to light touch and crainal nerves2-12 intact.. Health Maintenance List COVID-19 VACCINE(1) Never [...] Lymph 1.00 - 4.00 k/uL 2.02 1.16 Costilla% % 9.7 9.2 Abs Costilla <0.87 k/uL 0.94 (H) 1.31 (H) Eosin% [...] diet of 1000 mg/day for under 50, 1200- 1500 mg/day for 50+ - Discussed need and benefit for weight loss. BMI 28.94 kg/(m^2) - Patient was counseled [id number] by myself (the billing provider) for the [...] involving unspecified site, unspecified whether rheumatoid factor present(HCC) - ICD9: 714.0, ICD10: M06.9 - management [...] 780.4, ICD10: R42 - US CAROTID ARTERIES [facility] 30. Dependence on nocturnal oxygen [...] which included preparing to see the patient, [id number] patient care, completing clinical documentation, performing a medically appropriate examination, counseling and educating the patient/family/caregiver and ordering medications, tests, or procedures. Ganga Nunez MD documented in this encounterOhiohealth [facility]08-02-2023 History of Present illness Narrative* Reginaldo Burnett MD - 04/04/2023 4:26 PM EDT This note was created using NoteWriter. Subjective Kristina Burch is a 62 year old female. 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 ( [employer] recommends monitoring CBC, Creatinine and LFT at least every three months) . documented in this encounterOhiohealth [facility]07-24-2023 History of Present illness Narrative* Tessy Moy PA-C - 03/26/2023 9:10 AM EDT Patient: Kristina Burch PCP: Ganga Nunez MD CC: follow up HPI: Kristina Burch 62 year old female former minimal smoker with PMH significant for HUBER not on CPAP since recall of her [employer] machine, HTN, hydrocephalus, fibromyalgia, anxiety, HLD, COVID-pneumonia in May 2021. COVID treated with dexamethasone only and high flow nasal cannula oxygen, dis charged on 5 L, currently using 3 L [...] 2022. No recent upper respiratory infections or h ospitalizations for lung issues. 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 Scott Quarles Postcoital bleeding Primary insomnia 06/13/2021 Primary osteoarthritis [...] Hc* GI Upset Comment:Pt. tried again on - and became very ill with GI issues [...] filters. Fax 30 day download report to [phone] to assess residual ahi. fluticasone (FLONASE) 50 mcg/actuation nasal spray Use 2 Sprays in each nostril once daily. Rinse mouth after use. vit C-Zn gluc-herbal no.325 (ELDERBERRY ZINC VIT C) 90-15 mg lozg Use 1 Lozenge as instructed twicedaily. losartan (COZAAR) 50 mg tablet 50 mg [...] once she is set up. Will help herschedule a follow up with sleep medicine. Last [...] and edited and updated as necessary. Tessy Moy PA-C documented in this encounterOhiohealth [facility]ering[facility]07-18-2023 History of Present illness Narrative* Katja Moura RT(R) - 03/20/2023 8:00 AM EDT Radiology Service Progress Note PATIENT NAME: Kristina Burch DATE OF SERVICE: March 20, 2023 TIME: 4:10 PM PATIENT IDENTITY VERIFICATION COMPLETED USING TWO (2) IDENTIFIERS: Name and Date of confirmedby patient verbally. FALL SCREENING: Has the patient [...] 20, 2023 4:10 PM documented in this encounterOhiohealth Pickering[facility]07-06-2023 Miscellaneous Notes* Telephone Encounter - Ganga Nunez MD - 03/08/2023 5:19 PM EDT The following approved medication requests have been transmitted electronically. Requested Prescriptions Signed Prescriptions Disp Refills meloxicam (MOBIC) 15 mg tablet 90 tablet 1 Sig: Take 1 tablet by mouth once daily. Take with food. Authorizing Provider: GANGA NUNEZ MD * Telephone Encounter - Scott Napier Ma - 03/08/2023 5:13 PM EDT Patient last visit with PCP 11/15/22 Follow up appointment scheduled 04/24/23 Scott Napier Ma documented in this encounterOhiohealth Pickering[facility]06-07-2023 History of Present illness Narrative* Reginaldo Burnett MD - 02/07/2023 8:10 AM EDT This note was created using Virsto Softwareriter. Subjective Kristina Burch is a 62 year old female. PCP [...] headaches, jaw claudication, abnormal tongue sensation, scalp tenderness,or episodes of diplopia or visual loss. 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 documented in this encounterOhiohealth Pickering[facility]05-09-2023 History of Present illness Narrative* Barbra Tamera, PT - 01/09/2023 9:17 AM EDT Episode Visit Count: 10 Therapist That Will Accept/Oversee The Plan Of Care: Barbra Philip Start of Care Date: 11/15/22 Onset Date: 08/17/22 Plan of Care Certification Date: 12/20/22 Next Certification Due Date: 01/24/23 REHABILITATION AND SPORTS THERAPY PHYSICAL THERAPY TREATMENT NOTE ASSESSMENT: Kristina Burch tolerated the session with fatigue. She demonstrated difficulty with R knee pain and required cues to fully extend the B knees and hips to neutral with static standing throughout visit. Reduced symptoms in the knee reported with this correction. The patient will continueto benefit from ongoing skilled physical therapy to progress toward set goals. PLAN FOR NEXT VISIT: IRINEOU ball step ups for quadriceps NMRE SUBJECTIVE: [...] and function . Patient education as noted. Self-Assisted Management: 1: *discussed static standing posture- discussed [...] 40 Barbra Philip PT documented in this encounterOhiohealth [facility]ering[facility]05-04-2023 History of Present illness Narrative* Barbra Philip PT - 01/04/2023 9:21 AM EDT Episode Visit Count: 9 Therapist That Will Accept/Oversee The Plan Of Care: Barbra Philip Start of Care Date: 11/15/22 Onset Date: 08/17/22 Plan of Care Certification Date: 12/20/22 Next Certification Due Date: 01/24/23 REHABILITATION AND SPORTS THERAPY PHYSICAL THERAPY TREATMENT NOTE ASSESSMENT: Kristina Burch tolerated the session with increased symptoms. She [...] (substantial time required to complete this, R anteriorhip stretch felt with LE extension rolling the ball out, reduced symptoms when cued by PT to assistthe hips into extension using the BUEs) 4: [...] 40 Barbra Philip PT documented in this encounterOhiohealth [facility]ering[facility]04-17-2023 History of Present illness Narrative* Barbra Philip, PT - 12/18/2022 8:53 AM EDT Episode Visit Count: 5 Therapist That Will Accept/Oversee The Plan Of Care: Barbra Philip Start of Care Date: 11/15/22 Onset Date: 08/17/22 Plan of Care Certification Date: 11/15/22 Next Certification Due Date: 12/20/22 REHABILITATION AND SPORTS THERAPY PHYSICAL THERAPY TREATMENT NOTE ASSESSMENT: Kristina Burch tolerated the session with increased symptoms. She [...] taken, as well as education seat 13 (discussedimportance of doing HEP to reduce symptoms as [...] and assessment of patient's response to intervention. Self-Assisted Management: 1: *discussed importance of doing HEP [...] 38 Barbra Philip PT documented in this encounterOhiohealth Pickering[facility]04-12-2023 History of Present illness Narrative* Barbra Philip PT - 12/13/2022 9:18 AM EDT Episode Visit Count: 4 Therapist That Will Accept/Oversee The Plan Of Care: Barbra Philip Start of Care Date: 11/15/22 Onset Date: 08/17/22 Plan of Care Certification Date: 11/15/22 Next Certification Due Date: 12/20/22 REHABILITATION AND SPORTS THERAPY PHYSICAL THERAPY TREATMENT NOTE ASSESSMENT: Kristina Burch tolerated the session with decreased activity tolerance [...] Aching Frequency: At rest Pain Level 2: (it's not too bad.) Pain Location 2: Knee - Left, Knee [...] exercises in regards to decreasing fatigue , includingbalance, increase ease of ADL, and ROM and [...] 40 Barbra Philip PT documented in this encounterOhiohealth Pickering[facility]04-10-2023 History of Present illness Narrative* Barbra Philip PT - 12/11/2022 8:52 AM EDT Episode Visit Count: 3 Therapist That Will Accept/Oversee The Plan Of Care: Barbra Philip Start of Care Date: 11/15/22 Onset Date: 08/17/22 Plan of Care Certification Date: 11/15/22 Next Certification Due Date: 12/20/22 REHABILITATION AND SPORTS THERAPY PHYSICAL THERAPY TREATMENT NOTE ASSESSMENT: Kristina Burch tolerated the session with fatigue. She demonstrated difficulty with TAactivation with correct technique using biofeedback due t holding the breath, but this improved with practice. The patient will continue to benefit from ongoing skilled physical therapy to progress toward set goals. Current Frequency: 2x/week PLAN FOR NEXT VISIT: Continue gait and balance training, consider core stabilization strengthening in seated or standingas tolerated SUBJECTIVE: Patient Reason for Visit: Pt. [...] correct use on the left UE due toRLE knee pain Distance (feet): 100 ft with straight cane, 100 ft without AD Gait Cues: heel strike RLE, knee extension throughout mid stance Assistive Device: straight cane progressing to no cane Assist Level: SBA Skilled Intervention: Patient was provided stand by assist during pre-gait/gait training to preventfalls and insure safety. Facilitated proper gait cycle [...] was facilitated with verbal and visual cueing. Self-Assisted Management: 1: *advised using the cane due [...] 40 Barbra Philip PT documented in this encounterOhiohealth Pickerington [facility]03-30-2023 Surgical operation note* Brief Op Note - Ines Dwyer PA-C - 11/30/2022 10:50 AM EDT BRIEF OP NOTE LOG ID: [id number] Surgery/Procedure Date: 11/30/2022 Surgeon(s)/Proceduralist(s) and Yield Loss Inspector(s): Ines Dwyer PA-C Procedure(s): Imaging guided right [...] SIGNATURE: Ines Dwyer PA-C PATIENT NAME: Kristina Burch DATE: November 30, 2022 TIME: 10:50 AM PAGER/CONTACT #: documented in this encounterOhiohealth Pickering[facility]03-30-2023 Miscellaneous Notes* Sedation Documentation - Veronika Mcginnis RN - 11/30/2022 10:41 AM EDT Post pain 3/10 rt hip * Sedation Documentation - Veronika Mcginnis RN - 11/30/2022 10:20 AM EDT Discharge instructions reviewed. Verbalized understanding. * Sedation Documentation - Veronika Mcginnis RN - 11/30/2022 10:12 AM EDT Pre pain 8/10 rt hip documented in this encounterOhiohealth Pickerington [facility]03-29-2023 History of Present illness Narrative* Wilbur Paez MA - 11/29/2022 7:26 PM EDT Scan on 11/28/2022 3:08 PM by External Provider: Consultation - Anesthesia/Pain Wilbur Paez MA documented in this encounterOhiohealth Pickering[facility]03-22-2023 History of Present illness Narrative* Barbra Philip, PT - 11/22/2022 10:02 AM EDT Episode Visit Count: 2 Therapist That Will Accept/Oversee The Plan Of Care: Barbra Philip Start of Care Date: 11/15/22 Onset Date: 08/17/22 Plan of Care Certification Date: 11/15/22 Next Certification Due Date: 12/20/22 REHABILITATION AND SPORTS THERAPY PHYSICAL THERAPY TREATMENT NOTE ASSESSMENT: Kristina Burch tolerated the session with increased symptoms. She [...] and discharges can free up slots. Add seatedlumbar flexion and pelvic rotations to HEP next visit. Consider manual txn if symptoms do not centralize with flexion. SUBJECTIVE: Patient Reason for Visit: Pt. reports that she thinks the HEP may have eased it some alittle, but it is not gone. She attributes [...] and function . Patient education as noted. Self-Assisted Management: 1: *discussed directional preference and the goal to centralize symptoms from the LE to the low back 2: *encouraged pt. to tie her shoes - she demonstrates adequate lumbar flexion mobility to completewhile sitting. Pt. refuses for PT to assist [...] 40 Barbra Philip PT documented in this encounterOhiohealth Pickering[facility]03-20-2023 Miscellaneous Notes* Telephone Encounter - Sara Mcgarry Ma - 11/20/2022 6:46 PM EDT Pt notified of results via [employer]. Sara Mcgarry Ma * Telephone Encounter - Wilbur Paez MA - 11/18/2022 8:37 AM EDT Left message for patient to contact office. Wilbur Paez MA * Telephone Encounter - Ganga Nunez MD - 11/17/2022 10:43 PM EDT Let patient know the repeat CBC was normal. documented in this [facility]03-17-2023 Instructions* Patient Instructions* Scott Quarles MD - 11/17/2022 2:34 PM EDT [employer] message me when you have CPAP set up. documented in this [facility]03-17-2023 History of Present illness Narrative* Scott Quarles MD - 11/17/2022 2:15 PM EDT Images from the original note were not included. . Respiratory [facility] Note Patient name: Kristina Burch PCP: Ganga Nunez MD CC: Post COVID follow-up HPI: Kristina Burch 62 year old female former minimal smoker with PMH significant for HUBER not on CPAP since recall of her Katelyn machine, HTN, hydrocephalus, fibromyalgia, anxiety, HLD, COVID-pneumonia in May 2021. COVID treated with dexamethasone only and high flow nasal cannula oxygen, dis charged on 5 L, currently using 3 L [...] has cough productive of clear phlegm in themorning. She just received a new CPAP machine [...] disease), lumbar 07/24/[address] Jose Raul Machuca Essential tremor 04/06/2022 Ex-smoker 04/06/2022 Excessive or frequent menstruation Heavy periods Fibromyalgia 02/26/2014 Hemorrhage of gastrointestinal tract, unspecified History of COVID-19 06/13/202105/2021 Hydrocephalus, adult (HCC) 02/09/2003 Hypertension, essential 01/22/2019 Living will on file 04/06/2022 DPA: Dustin () Lung nodule 01/24/2022 Seeing pulm Migraines 07/26/2021 Used to see neuro and was getting Botox Mild dysplasia of cervix 2006 Mixed hyperlipidemia 01/20/2016 Nonrheumatic mitral valve disorder, unspecified 04/06/2016 Obstructive sleep apnea 10/13/2016 DME - [facility] Plantar fasciitis 2018 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 Scott Quarles Postcoital bleeding Primary insomnia 06/13/2021 Primary osteoarthritis [...] filters. Fax 30 day download report to [phone] to assess residual ahi. meloxicam (MOBIC) 15 mg tablet Take 1 tablet by mouth once daily. Take with food. fluticasone (FLONASE) 50 mcg/actuation nasal spray Use 2 Sprays in each nostril once daily. Rinse mouth after use. vit C-Zn gluc-herbal no.325 (ELDERBERRY ZINC VIT C) 90-15 mg lozg Use 1 Lozenge as instructed twicedaily. losartan (COZAAR) 50 mg tablet 50 mg [...] in March to evaluate 6 mm nodule Scott Quarles MD [facility] documented [facility] this [facility]Ohio[facility] History of Present illness Narrative* Ganga Nunez MD - 11/15/2022 5:04 PM EDT Chief Complaint Patient presents with: Back Pain HPI Kristina Burch is a 62 year old female who presents here today for continued low back pain/right hip and having pain all lover with extreme fatigue. Patient has been off balance and experiencing some blurred vision. Patient recently saw ortho on 11/13/2022 who has ordered PHYSICAL THERAPY along with getting her setup with a right hip injection for therapeutic and diagnostic purposes. He also referred her to see pain management and Rheumatology. Patient has been noticing increased fatigue and body aches. Deniesand shortness of breath but feels her O2 is low at times and will run from 90-upper 90's at home onher pulse ox. She does have O2 at [...] where it has been difficulty moving her armsand legs. Patient's depression has worsened with not [...] lumbar 07/24/[address] Kn[facility] Essential tremor 04/06/2022 Ex-smoker 04/06/2022 Excessive or frequent menstruation Heavy periods Fibromyalgia 02/26/2014 Hemorrhage of gastrointestinal tract, unspecified History of COVID-19 06/13/202105/2021 Hydrocephalus, adult (HCC) 02/09/2003 Hypertension, essential 01/22/2019 Living will on file 04/06/2022 DPA: Dustin () Lung nodule 01/24/2022 Seeing pulm Migraines 07/26/2021 Used to see neuro and was getting Botox Mild dysplasia of cervix 2006 Mixed hyperlipidemia 01/20/2016 Nonrheumatic mitral valve disorder, unspecified 04/06/2016 Obstructive sleep apnea 10/13/2016 DME - [facility] Plantar fasciitis 2018 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 Scott Quarles Postcoital bleeding Primary insomnia 06/13/2021 Primary osteoarthritis [...] mg lozg Use 1 Lozenge as instructed twicedaily. losartan (COZAAR) 50 mg tablet 50 mg [...] filters. Fax 30 day download report to [phone] to assess residual ahi. No current facility-administered [...] Abs Lymph 1.00 - 4.00 k/uL 1.16 Costilla% % 9.2 Abs Costilla <0.87 k/uL 1.31 (H) Eosin% % 0.4 [...] which included preparing to see the patient, [id number] patient care, completing clinical documentation, performing a medically appropriate examination, counseling and educating the patient/family/caregiver and ordering medications, tests, or procedures. Ganga Nunez MD documented in this encounterOhio[facility]03-15-[facility]23 History of Present illness Narrative* Barbra Tamera, PT - 11/15/2022 8:32 AM EDT Episode Visit Count: 1 Therapist That Will Accept/Oversee The Plan Of Care: Barbra Philip Start of Care Date: 11/15/22 Onset Date: 08/17/22 Plan of Care Certification Date: 11/15/22 Next Certification Due Date: 12/20/22 Patient Identified by Name and Date of : Yes REHABILITATION AND SPORTS THERAPY PHYSICAL THERAPY EVALUATION PLAN OF CARE: Assessment: Kristina Burch presents with diagnosis of spinal stenosis, lumbar region without neurogenic claudication, primary OA of both knees that interferes with walking, bending, stair negotiation, walking in the community, walking in the house, rising from a chair, standing, sleeping, lifting,bed mobility, weight bearing, dressing, grooming, cooking, cleaning, driving . She presents with imp airments in ADL's, balance, flexibility, gait, independence in exercise, joint mobility, overall function, patient reported outcome measures, posture, range of motion, strength, symptom management, and tissue tenderness. PROMIS (Patient- Reported Outcomes Measurement Information System) scores were reviewed [...] Planned: 16 Planned Treatment Interventions: Therapeutic exercise (46204), Neuromuscular re- education (68515), Manual therapy (33732), Self-alf management (05681), Gait Training (95828), Therapeutic activities (69327), Body Mechanics Training PLAN FOR NEXT VISIT: Assess symptom response to extension based directional preference standing at wall Patient demonstrates good understanding of plan of care and treatment. The above goals and plan of care were discussed and agreed upon by patient/family. SUBJECTIVE: Kristina Burch is a 62 year old female seen today for for chronic low back pain that became worse the end of August when pt. moved. Pt. attributes this to lifting boxes and negociatingsteps. She was having B knee and RLE radiating symptoms prior to the move. 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 quad cane RUE due to hx LUE shoulder replacement) Intake Information: Prescription present Previous Treatment: Injections , Pain Management , Heat (tylenol) Falls Interview: Fall without injury in the last year Red Flags Vertebral Fracture Red Flags: Female Vertebral Fracture Clinical Reasoning: Proceed with caution due to the above (1- 2) risk factors Abdominal Aortic Aneurysm Red Flags: [...] Demonstration TREATMENT: PT Treatment Interventions: Therapeutic Exercise, Self-Assisted Management Evaluation Therapeutic Exercise: 1: *standing at [...] exercises in regards to decreasing fatigue , includingbalance, increase ease of ADL, and ROM and function . Patient education as noted. Self-Assisted Management: 1: *lumbar roll 2: *postural education [...] 45 Barbra Philip PT documented in this encounterOhio[facility]03-13-2023 Instructions* Patient Instructions* Chidi Gao DO - 11/13/2022 9:59 AM EDT Kristina [...] I do think that meeting with a payroll specialist for further evaluation and discussion of medication is an appropriate treatment for her. I do think her right hip arthritis plays a major role with her right hip and leg pain as well as dysfunction and weakness. I will set her up for a intra-articular hip injection for therapeutic and diagnostic purposes. I will see her back af terwards to discuss how much this has helped. [...] to discuss the possibility of injections or otherprocedures for her lumbar spine. documented in this encounterOhio[facility]03-13-2023 History of Present illness Narrative* Chidi Gao DO - 11/13/2022 9:13 AM EDT HPI: Kristina Burch is a 62 year old female who presents today with low back pain. half-way issues. Left hip SHUBHAM. Right hip pain and low back pain. Knee also having issues but needs to figure out back issues first and wants to be able to walk better and not have to use cane. Not working because of pain and long COVID issues. Injections in the past helped. Goes to see [facility] today. PAST MEDICAL HISTORY Diagnosis Date [...] disease), lumbar 07/24/[address] Jose Raul Machuca Essential tremor 04/06/2022 Ex-smoker 04/06/2022 Excessive or frequent menstruation Heavy periods Fibromyalgia 02/26/2014 Hemorrhage of gastrointestinal tract, unspecified History of COVID-19 06/13/202105/2021 Hydrocephalus, adult (HCC) 02/09/2003 Hypertension, essential 01/22/2019 Living will on file 04/06/2022 DPA: Dustin () Lung nodule 01/24/2022 Seeing pulm Migraines 07/26/2021 Used to see neuro and was getting Botox Mild dysplasia of cervix 2006 Mixed hyperlipidemia 01/20/2016 Nonrheumatic mitral valve disorder, unspecified 04/06/2016 Obstructive sleep apnea 10/13/2016 DME - [facility] Plantar fasciitis 2018 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 Scott Quarles Postcoital bleeding Primary insomnia 06/13/2021 Primary osteoarthritis [...] filters. Fax 30 day download report to [phone] to assess residual ahi. meloxicam (MOBIC) 15 mg tablet Take 1 tablet by mouth once daily. Take with food. fluticasone (FLONASE) 50 mcg/actuation nasal spray Use 2 Sprays in each nostril once daily. Rinse mouth after use. vit C-Zn gluc-herbal no.325 (ELDERBERRY ZINC VIT C) 90-15 mg lozg Use 1 Lozenge as instructed twicedaily. losartan (COZAAR) 50 mg tablet 50 mg [...] seated internal rotation movements. Very antalgic gait andslow even with cane assistance. Normal pulses ASSESSMENT: (M54.41, G89.29) Chronic right-sided low back pain with right-sided sciatica (primary encounter diagnosis) (M16.11) Primary osteoarthritis of right hip (M25.50) Polyarthralgia (M79.7) Fibromyalgia PLAN: Kristina has a difficult combination of issues. She has polyarthralgia issues and global weakness/deconditioning. This could be because of the hip, knee, and back issues combined with a long COVIDproblem. At this time, I cannot rule out a systemic issue such as an autoimmune issue. Fibromyalgiaalso plays a role in her pain. I do think that meeting with a payroll specialist for further evaluation and discussion of medication is an appropriate treatment for her. I do think her right hip arthritis plays a major role with her right hip and leg pain as well as dysfunction and weakness. I will sether up for a intra-articular hip injection for [...] group to discuss the possibility of injections orother procedures for her lumbar spine. Total of 45 minutes spent with this patient of which greater than 50% time spent in direct patient contact and coordination of care. Chidi Gao DO * Ace Cooper - 11/13/2022 9:09 AM EDT REVIEW OF SYSTEMS: GENERAL: Well developed, well nourished. No acute distress PAIN: Pain yes CARDIOVASCULAR: Negative for chest pain, leg swelling and palpations. MSK: Negative for joint swelling SKIN: Negative for lesions, rash, itching, metal sensitivity NEURO: Numbness/tingling of extremties ENDOCRINE: Negative for diabetic associated symptoms HEMATOLOGY: Negative for excessive bleeding, clots, bleeding disorders. documented in this encounterOhio[facility]03-07-2023 History of Present illness Narrative* Jovani Franz MD - 11/07/2022 8:47 AM EST HISTORY OF PRESENT ILLNESS: Patient is here [...] palpation along the lower lumbar region on theright side. She has valgus malalignment of her [...] see her back in as-needed basis peer Jovani Franz MD documented in this encounterOhiohealth [facility]02-20-2023 History of Present illness Narrative* Dixie Manuel - 10/23/2022 3:29 PM EST POPULATION HEALTH NAVIGATION OUTREACH Action/[facility] Support: Called pt to schedule an appt in Pain Management. Lvm for pt to call [phone] for scheduling. Patient Identified by Name and : NO Outreach Outcome/Action Unable to reach patient: Left message Did you use a PCP flex slot to schedule this appointment? No Reason for Outreach Care Gap or Scheduling/Wellness visits Payer: Payor: [employer]LIN[employer] / Plan: [employer] OAP / Product Type: Open Access / Care Gap Reviewed:: Specialty Scheduling Reminder: Reminder note to check Health Maintenance for items below Health Maintenance items due: COVID-19 VACCINE(1) Never done INFLUENZA(1) due on 05/04/2022 BP CONTROLLED (<130/80) due on 06/13/2022 Navigation Signature: Dixie Jackson October 23, 2022 3:30 PM documented in this encounterOhiohealth [facility]02-15-2023 Miscellaneous Notes* Telephone Encounter - Wilbur Paez MA - 10/18/2022 11:34 AM EST Spoke with patient and gave update. Patient would like to see Dr. Bustillos. Information faxed to that office. Wilbur Paez MA * Telephone Encounter - Ganga Nunez MD - 10/18/2022 9:44 AM EST Consult order to pain management placed. * Telephone Encounter - Paulina Jalloh LPN - 10/17/2022 3:35 PM EST Last OV: 10/09/22. Pt is calling to request a referral to Pain Management for lower back, right hip and knee pain. Pt reports nothing helps with the pain. Pt was prescribed prednisone taper on 10/09 and pt reports that has not helped either. Call pt when referral has been placed. Paulina Jalloh LPN documented in this encounterOhiohealth [facility]02-08-2023 Miscellaneous Notes* Telephone Encounter - Tati Richter LPN - 10/11/2022 12:03 PM EST Patient notified of results, verbalizes understanding of instructions. Tati Richter LPN * Telephone Encounter - Edwina Khoury PA-C - 10/11/2022 11:29 AM EST WBC elevated but likely due to current strep infection. A1c is 5.8% which is prediabetes but overall stable. Cholesterol is okay however has increased some. Watch diet. Edwina Khoury PA-C * Telephone Encounter - Cathi Almaraz RN - 10/10/2022 4:04 PM EST Please review results and advise. documented in this [facility]02-06-2023 Instructions* Patient Instructions* Edwina Khoury PA-C - 10/09/2022 1:52 PM EST Please contact cardiology for test results. documented in this encounterOhiohealth [facility]02-06-2023 History of Present illness Narrative* Edwina Khoury PA-C - 10/09/2022 1:32 PM EST Chief Complaint Patient presents with: Follow Up: 6 mth FU. C/o sore throat, bilat ear pain & congestion since yesterday. 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 Scott Quarles Postcoital bleeding Primary insomnia 06/13/2021 Primary osteoarthritis [...] humidity, filters. Fax day download report to [phone] to assess residual ahi. meloxicam (MOBIC) 15 mg tablet Take 1 tablet by mouth once daily. Take with food. fluticasone (FLONASE) 50 mcg/actuation nasal spray Use 2 Sprays in each nostril once daily. Rinse mouth after use. vit C-Zn gluc-herbal no.325 (ELDERBERRY ZINC VIT C) 90-15 mg lozg Use 1 Lozenge as instructed twicedaily. losartan (COZAAR) 50 mg tablet 50 mg [...] prn. Edwina Khoury PA-C documented in this encounterOhiohealth [facility]01-03-2023 Miscellaneous Notes* Addendum Note - Jovani Franz MD - 09/05/2022 9:52 AM ESTAddended by: JOVANI FRANZ on: 09/05/2022 09:52 AM Modules accepted: Orders documented in this encounterOhiohealth [facility]01-03-2023 History of Present illness Narrative* Bambi Sosa LPN - 09/05/2022 9:47 AM EST Injection prepared per Dr. Franz' order and handed directly to him. Bambi Sosa LPN * Jovani Franz MD - 09/05/2022 9:41 AM ESTAssociated Order(s): Large Joint Arthro/Inj: R knee joint [...] located along the general region of the knee.The pain is non-radiating and intermittent in nature. [...] lines. A negative Gato s is noted. Negativeanterior and posterior drawers are seen. She has [...] option consisting of NSAID s and a physicaltherapy program emphasizing quadricep strengthening, stretching and ROM. [...] be notified. If they take this medication retirement, they understand the need for medication monitoring through their primary care physician. He is aware of the potential risks and side effects of this medication as well as theexpected benefits, and wishes to proceed with its use. He was advised to read and review the product insert and if they have any questions to contact us. Tylenol was recommended for pain control if tolerated. To be used as directed on the bottle. He will return for follow-up in 2 months. Jovani Franz MD documented in this encounterOhiohealth [facility]12-19-2022 Miscellaneous Notes* Telephone Encounter - Claribel Mason LPN - 08/21/2022 9:55 AM EST Pt notified of same. Claribel Mason LPN * Telephone Encounter - Ganga Nunez MD - 08/19/2022 12:18 PM EST Let patient know her flu and COVID tests were negative. documented in this encounterOhiohealth [facility]12-19-2022 Instructions* Patient Instructions* Selam Argueta APRN.CNP - 08/21/2022 9:11 AM EST Start cyclobenzaprine Continue current medications, complete antibiotics Follow up as scheduled. documented in this encounterOhiohealth [facility]12-19-2022 History of Present illness Narrative* Selam Argueta APRN.CNP - 08/21/2022 8:55 AM EST Chief Complaint Patient presents with: Recheck: Bronchitis HPI Kristina Burch is a 62 year old female who [...] 01/22/2019 Living will on file 04/06/2022 DPA: Dustin () Lung nodule 01/24/2022 Seeing pulm Migraines 07/26/2021 Used to see neuro and was getting Botox Mild dysplasia of cervix 2006 Mixed hyperlipidemia 01/20/2016 Nonrheumatic mitral valve disorder, unspecified 04/06/2016 Obstructive sleep apnea 10/13/2016 DME - [facility] Plantar fasciitis 2018 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 Scott Quarles Postcoital bleeding Primary insomnia 06/13/2021 Primary osteoarthritis [...] filters. Fax 30 day download report to [phone] to assess residual ahi. meloxicam (MOBIC) 15 mg tablet Take 1 tablet by mouth once daily. Take with food. fluticasone (FLONASE) 50 mcg/actuation nasal spray Use 2 Sprays in each nostril once daily. Rinse mouth after use. vit C-Zn gluc-herbal no.325 (ELDERBERRY ZINC VIT C) 90-15 mg lozg Use 1 Lozenge as instructed twicedaily. losartan (COZAAR) 50 mg tablet 50 mg [...] 20 minutes three times daily Selam Argueta APRN.[employer] documented in this encounterOhiohealth [facility]12-16-2022 Instructions* Patient Instructions* Ganga Nunez MD - 08/18/2022 9:18 AM EST While you are on the Prednisone do not take the Mobic (meloxicam) documented in this encounterOhiohealth [facility]ering[facility]12-16-2022 History of Present illness Narrative* Ganga Nunez MD - 08/18/2022 8:46 AM EST Chief Complaint Patient presents with: ED Follow-up HPI Kristina Burch is a 62 year old female who presents here today for ER Follow Up.. Patient is complain on chest pain; burning in lungs and UTI sx. 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 Scott Quarles Postcoital bleeding Primary insomnia 06/13/2021 Primary osteoarthritis [...] filters. Fax 30 day download report to [phone] to assess residual ahi. meloxicam (MOBIC) 15 [...] mg lozg Use 1 Lozenge as instructed twicedaily. losartan (COZAAR) 50 mg tablet 50 mg [...] TESTING Discontinued HIV SCREENING Discontinued Data reviewed [facility] ER report from 08/14/2022 Component Latest [...] - CONSULT TO ORTHOPAEDICS: Dr. Franz with [facility] 5. Situational mixed anxiety and depressive disorder [...] daily. F/u on 08/21/2022 for recheck Ganga Nunez MD documented in this encounterOhiohealth Pickering[facility]12-12-2022 History of Present illness Narrative* Alex Coppola APRN.VICKY - 08/14/2022 5:24 PM EST Patient triaged at [facility]. Here today with fever, sob. Hx of lung lesion. O2 87 on RA, slightaccessory muscle usage with respiration. I will refer to ER, family to bring to ER, declines squad. documented in this encounterOhiohealth Pickering[facility]11-23-2022 Miscellaneous Notes* Telephone Encounter - Allie Shelley - 07/26/2022 7:29 AM EST Left detailed message on a secured voicemail. Allie Daphney * Telephone Encounter - Allie Daphney - 07/26/2022 7:28 AM EST Left message for patient to return call. Allie Shelley * Telephone Encounter - Didi Willams APRN.CNP - 07/26/2022 6:58 AM EST Please notify patient that urine culture showed mixture of bacteria which suggests possible contamination upon collection. Advise her to finish the antibiotic if it is helping her symptoms but if not, then she will need to return to provide another specimen. Thank you. Didi Willams APRN.CNP documented in this encounterOhiohealth Pickering[facility]11-21-2022 Instructions* Patient Instructions* Diana Chavez APRN.CNP - 07/24/2022 4:56 PM EST ASSESSMENT/PLAN: 1. Urinary frequency - ICD9: 788.41, ICD10: R35.0 acute - UA positive for dyana esterase, hematuria, proteinuria, and ketones - Send [...] is a type of urinary tract infection (UTI).Bladder infections are more common is women than men. Most women have an uncomplicated bladder infection that is easily treated with a short course of antibiotics. In men, bladder infections may alsoaffect the prostate gland, and a longer course [...] symptoms of a bladder infection, but can occurin people with a kidney infection (pyelonephritis). If [...] treatment is usually given for at least 7days. Your symptoms should begin to resolve within [...] UTIs. A similar medication is available without aprescription (eg, Uristat). Both medications change the color of the urine (usually blue or orange)and can interfere with laboratory testing. You should not take these medications for more than 48 hours due to the risk of side effects. These medications do not treat the infection and must be takenalong with an antibiotic. Some providers recommend drinking [...] -- Some adults, especially women, develop bladder infectionsfrequently. In this case, it is important to [...] actually have an infection. documented in this encounterOhiohealth Pickering[facility]11-21-2022 History of Present illness Narrative* Diana Chavez APRN.CNP - 07/24/2022 4:54 PM EST Subjective HPI Kristina Burch is a 62 year old female who [...] Wt 91.2 kg (201 lb) LMP 08/04/2008 [id number]% BMI 30.56 kg/m PAST MEDICAL HISTORY Diagnosis [...] disease), lumbar 07/24/[address] Jose Raul Machuca Essential tremor 04/06/2022 Ex-smoker 04/06/2022 Excessive or frequent menstruation Heavy periods Fibromyalgia 02/26/2014 Hemorrhage of gastrointestinal tract, unspecified History of COVID-19 06/13/202105/2021 Hydrocephalus, adult (HCC) 02/09/2003 Hypertension, essential 01/22/2019 Living will on file 04/06/2022 DPA: Dustin () Lung nodule 01/24/2022 Seeing pulm Migraines 07/26/2021 Used to see neuro and was getting Botox Mild dysplasia of cervix 2006 Mixed hyperlipidemia 01/20/2016 Nonrheumatic mitral valve disorder, unspecified 04/06/2016 Obstructive sleep apnea 10/13/2016 DME - [facility] Plantar fasciitis 2018 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 Scott Quarles Postcoital bleeding Primary insomnia 06/13/2021 Primary osteoarthritis of both shoulders 04/06/2022 Seeing anahi machuca Rectocele 04/19/2007 Renal cyst 07/13/2016 Situational mixed [...] filters. Fax 30 day download report to [phone] to assess residual ahi. meloxicam (MOBIC) 15 [...] mg lozg Use 1 Lozenge as instructed twicedaily. losartan (COZAAR) 50 mg tablet 50 mg [...] suprapubic area. There is no right CVA tenderness,left CVA tenderness or guarding. Skin: General: Skin is warm and dry. Neurological: Mental Status: She is alert. ASSESSMENT/PLAN: 1. Urinary frequency - ICD9: 788.41, ICD10: R35.0 acute - UA positive for dyana esterase, hematuria, proteinuria, and ketones - Send [...] illness Diana Chavez APRN.CNP documented in this encounterOhiohealth [facility]09-29-2022 History of Present illness Narrative* Janet Trejo APRN.CNP - 06/01/2022 2:00 PM EDT This Team Access Model visit is a virtual encounter. It required patient- provider interaction for the medical decision making as documented below. Patient agrees to the visit: Yes Patient Location: [place] CC: Patient presents with: Toothache Pain, Sinus HPI Kristina Burch is a 62 year old female who is contacted today for a virtual visit. This is an established patient of Dr. Ganga Nunez MD. Kristina is a new patient to [...] was unsure if it was all related ornot. No COVID testing completed at home. Denies [...] disease), lumbar 07/24/[address] Jose Raul Machuca Essential tremor 04/06/2022 Ex-smoker 04/06/2022 Excessive or frequent menstruation Heavy periods Fibromyalgia 02/26/2014 Hemorrhage of gastrointestinal tract, unspecified History of COVID-19 06/13/202105/2021 Hydrocephalus, adult ([facility]) 02/09/2003 Hypertension, essential 01/22/2019 Living will on file 04/06/2022 DPA: Dustin () Lung nodule 01/24/2022 Seeing pulm Migraines 07/26/2021 Used to see neuro and was getting Botox Mild dysplasia of cervix 2006 Mixed hyperlipidemia 01/20/2016 Nonrheumatic mitral valve disorder, unspecified 04/06/2016 Obstructive sleep apnea 10/13/2016 DME - [facility] Plantar fasciitis 2018 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 Scott Quarles Postcoital bleeding Primary insomnia 06/13/2021 Primary osteoarthritis [...] filters. Fax 30 day download report to [phone] to assess residual ahi. meloxicam (MOBIC) 15 [...] mg lozg Use 1 Lozenge as instructed twicedaily. losartan (COZAAR) 50 mg tablet 50 mg [...] medications. Janet Trejo APRN.VICKY documented in this encounterOhiohealth [facility]09-20-2022 History of Present illness Narrative* Edwina Khoury PA-C - 05/23/2022 8:20 AM EDT Chief Complaint Patient presents with: Recheck: Blood pressure and abdominal pain HPI Kristina Burch is a 62 year old female who presents here today for recheck. Patient was seen for preop on 05/16. At that visit patient had elevated BP and significant abdominaldiscomfort on exam. With recent dx of gastric [...] disease), lumbar 07/24/[address] Jose Raul Machuca Essential tremor 04/06/2022 Ex-smoker 04/06/2022 Excessive or frequent menstruation Heavy periods Fibromyalgia 02/26/2014 Hemorrhage of gastrointestinal tract, unspecified History of COVID-19 06/13/202105/2021 Hydrocephalus, adult (HCC) 02/09/2003 Hypertension, essential 01/22/2019 Living will on file 04/06/2022 DPA: Dustin () Lung nodule 01/24/2022 Seeing pulm Migraines 07/26/2021 Used to see neuro and was getting Botox Mild dysplasia of cervix 2006 Mixed hyperlipidemia 01/20/2016 Nonrheumatic mitral valve disorder, unspecified 04/06/2016 Obstructive sleep apnea 10/13/2016 DME - [facility] Plantar fasciitis 2018 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 Scott Quarles Postcoital bleeding Primary insomnia 06/13/2021 Primary osteoarthritis [...] filters. Fax 30 day download report to [phone] to assess residual ahi. meloxicam (MOBIC) 15 [...] mg lozg Use 1 Lozenge as instructed twicedaily. losartan (COZAAR) 50 mg tablet 50 mg [...] gastric ulcer hemorrhage or perforation present - ICD9:531.30, ICD10: K25.3 Improved. Edwina Khoury PA-C documented in this encounterOhiohealth [facility]09-14-2022 Miscellaneous Notes* Telephone Encounter - Edwina Khoury PA-C - 05/17/2022 11:08 AM EDT Noted. * Telephone Encounter - Claribel Mason LPN - 05/17/2022 9:53 AM EDT Pt advised of results, verbalizes understanding. She reports that she is feeling better. Did drink several glasses of her pineapple juice yesterday and that helped. She is still sore in a few spots but overall better. Advised her to make sure she is getting enough to drink. Claribel Mason LPN * Telephone Encounter - Edwina Khoury PA-C - 05/17/2022 9:18 AM EDT Please let patient know that labs look okay. Urine is dark, so she may be dehydrated. How does she feel today? documented in this encounterOhiohealth [facility]09-13-2022 Instructions* Patient Instructions* Edwina Khoury PA-C - 05/16/2022 9:21 AM EDT Please contact cardiology for cardiac clearance. documented in this encounterOhiohealth [facility]09-13-2022 History of Present illness Narrative* Edwina Khoury PA-C - 05/16/2022 9:05 AM EDT Chief Complaint Patient presents with: Pre-Op Exam HPI Kristina Burch is a 62 year old female who presents here today for pre-op exam. Patient is scheduled for R total shoulder replacement on 06/14/[address] Cortez. Patient with hx of hyperlipidemia, HTN, aortic [...] disease), lumbar 07/24/[address] Jose Raul Machuca Essential tremor 04/06/2022 Ex-smoker 04/06/2022 Excessive or frequent menstruation Heavy periods Fibromyalgia 02/26/2014 Hemorrhage of gastrointestinal tract, unspecified History of COVID-19 06/13/202105/2021 Hydrocephalus, adult (HCC) 02/09/2003 Hypertension, essential 01/22/2019 Living will on file 04/06/2022 DPA: Dustin () Lung nodule 01/24/2022 Seeing pulm Migraines 07/26/2021 Used to see neuro and was getting Botox Mild dysplasia of cervix 2006 Mixed hyperlipidemia 01/20/2016 Nonrheumatic mitral valve disorder, unspecified 04/06/2016 Obstructive sleep apnea 10/13/2016 DME - [facility] Plantar fasciitis 2018 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 Scott Quarles Postcoital bleeding Primary insomnia 06/13/2021 Primary osteoarthritis [...] filters. Fax 30 day download report to [phone] to assess residual ahi. meloxicam (MOBIC) 15 [...] mg lozg Use 1 Lozenge as instructed twicedaily. losartan (COZAAR) 50 mg tablet 50 mg [...] in no acute distress, well-hydrated, well nourished. andObese. Eyes: Anicteric sclera. 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 - CBC + DIFF - COMP METABOLIC [...] Patient to receive cardiac clearance from her dry sander 6. Nonrheumatic mitral valve disorder, unspecified - [...] clearance. Edwina Khoury PA-C documented in this encounterOhiohealth [facility]09-02-2022 History and physical note * Carmine Montez MD - 05/05/2022 7:30 AM EDT UPDATED PROCEDURAL SEDATION HISTORY AND PHYSICAL EXAMINATION SERVICE DATE: 05/05/2022 SERVICE TIME: 6:40 AM PHYSICAL EXAM MUST BE COMPLETED ON ADMISSION PROCEDURE: Procedure Indications: The History and Physical (completed in the past 30 days) has been reviewed and the patient has beenexamined. The contents accurately reflect the patient's condition [...] SIGNATURE: Carmine Montez MD PATIENT NAME: Kristina Burch DATE: May 05, 2022 TIME: 6:39 AM Source Note - Carmine Montez MD - 05/05/2022 7:30 AM EDT Images from the original note were not included. HISTORY AND PHYSICAL Kristina Burch 1960 REFERRING PHYSICIAN: Self CHIEF COMPLAINT: Consult [...] by an abscess. This was performed in 2018. The patient is current reflux or heartburn. [...] today at the request of Dr. Ganga Nunez MD for my opinion and advice regarding [...] 11/12/2017 Thoracic aortic aneurysm without rupture (HCC) 2017 Unspecified constipation Constipation Unspecified visual disturbance DOUBLE [...] mg lozg Use 1 Lozenge as instructed twicedaily. albuterol HFA (PROVENTIL HFA, VENTOLIN HFA) 90 [...] Heat Humidity tubing (SHAYLA), suitable mask ( maskfitting for Airfit N30i), Lifetime supplies, opt Chinstrap, [...] entered by the nurse and reviewed by ok Nursing Notes: Felisa Chance 12/15/2021 12:32 PM [...] nourished, well hydrated in no acute distress. Thepatient is oriented to time, place, and person. VITALS: Blood pressure 132/69, pulse 65, temperature 36.9 C (98.4 F), height 174 cm (5' 8.5), weight 86.2 kg (190 lb), last menstrual period 08/04/2008, SpO2 100 %. Body mass index is 28.47 kg/m . HEENT: Normal cephalic, ataumatic, pupils are equally round, sclera are anicteric, mucous membranesare moist, oropharynx is clear. Neck has no [...] C. difficile, enteric pathogens, fecal leukocytes, and ovaand parasites. If these are positive we will [...] findings have been communicated to Dr. Ganga Nunez MD via shared medical record. This note will be forwarded to Dr. Ganga Nunez MD. Return to Clinic: The patient is instructed to follow-up with me after the testing has been completed. Carmine Montez MD * Carmine Montez MD - 05/05/2022 7:30 AM EDT Images from the original note were not included. HISTORY AND PHYSICAL Kristina Burch 1960 REFERRING PHYSICIAN: Self CHIEF COMPLAINT: Consult [...] today at the request of Dr. Ganga Nunez MD for my opinion and advice regarding [...] apnea 10/13/2016 DME - [facility] Plantar fasciitis 2017 PMH - PAST MEDICAL HISTORY OF RECTAL [...] mg lozg Use 1 Lozenge as instructed twicedaily. albuterol HFA (PROVENTIL HFA, VENTOLIN HFA) 90 [...] Heat Humidity tubing (SHAYLA), suitable mask ( maskfitting for Airfit N30i), Lifetime supplies, [facility], G4.33. (Patient not taking: Reported on 07/19/2021 ) [...] entered by the nurse and reviewed by ok Nursing Notes: Felisa Chance 12/15/2021 12:32 PM [...] nourished, well hydrated in no acute distress. Thepatient is oriented to time, place, and person. VITALS: Blood pressure 132/69, pulse 65, temperature 36.9 C (98.4 F), height 174 cm (5' 8.5), weight 86.2 kg (190 lb), last menstrual period 08/04/2008, SpO2 100 %. Body mass index is 28.47 kg/m . HEENT: Normal cephalic, ataumatic, pupils are equally round, sclera are anicteric, mucous membranesare moist, oropharynx is clear. Neck has no [...] C. difficile, enteric pathogens, fecal leukocytes, and ovaand parasites. If these are positive we will [...] findings have been communicated to Dr. Ganga Nunez MD via shared medical record. This note will be forwarded to Dr. Ganga Nunez MD. Return to Clinic: The patient is instructed to follow-up with me after the testing has been completed. Carmine Montez MD documented in this encounterOhiohealth [facility]08-26-2022 Miscellaneous Notes* Letter - Mammography Coordinator - 04/28/2022 12:29 PM EDT April 28, 2022 PID: [id number] Kristina Burch [address] [place] [address] Dear Ms. Burch, We are pleased to inform you that [...] report will be kept on [facility] at [facility] as part of your permanent medical record and are available for your continuing care. Thank you for allowing us to help in meeting your health care needs. Sincerely, Dr. Leos Interpreting Radiologist [facility] (Normal over 40) documented in this encounterOhiohealth Pickering[facility]08-25-2022 History of Present illness Narrative* RT Monroe(R) - 04/27/2022 1:30 PM EDT Radiology Service Progress Note PATIENT NAME: Kristina Burch DATE OF SERVICE: April 27, 2022 TIME: 1:34 PM PATIENT IDENTITY VERIFICATION COMPLETED USING TWO (2) IDENTIFIERS: Name and Date of confirmedby patient verbally. FALL SCREENING: Has the patient [...] 27, 2022 1:34 PM documented in this encounterOhiohealth [facility]08-23-2022 Miscellaneous Notes* Telephone Encounter - Edwina Khoury PA-C - 04/25/2022 11:52 AM EDT The following approved medication requests have been transmitted electronically. Requested Prescriptions Signed Prescriptions Disp Refills atorvastatin (LIPITOR) 40 mg tablet 90 tablet 1 Sig: Take 1 tablet by mouth daily at bedtime. For cholesterol. Authorizing Provider: EDWINA KHOURY PA-C * Telephone Encounter - Arline Lott LPN - 04/25/2022 11:40 AM EDT Spoke with pt and information listed below given. Pt verbalizes understanding. Pt agrees to the increase in medication. Okay to fill. Pharmacy updated. Arline Lott LPN * Telephone Encounter - Wilbur Paez MA - 04/24/2022 10:12 AM EDT Left message for patient to contact office. Wilbur Paez MA * Telephone Encounter - Ganga Nunez MD - 04/23/2022 10:14 PM EDT Let patient know thyroid labs, CBC and Vit D were ok. Lipid panel shows improved LDL at 107 from 165 but would like to see closer to 70 with her dilated aorta. I would like to increase the lipitor to 40 mg a day. If ok will send in new script. documented in this encounterOhiohealth [facility]08-09-2022 Instructions* Patient Instructions* Salome Wong MD - 04/11/2022 9:31 AM EDT Allergy skin tests to inhalant allergens were negative Use fluticasone nasal spray (generic flonase) 2 sprays to each nostril once a day every day on a regular basis Use astelin nasal spray 2 sprays to each nostril twice a day as needed documented in this encounterOhiohealth [facility]08-09-2022 Nurse Note* Zaida Enamorado RN - 04/11/2022 8:36 AM EDT Patient here for allergy skin testing. Off antihistamines past 5 days. No concerns at this time. documented in this encounterOhiohealth [facility]08-09-2022 History of Present illness Narrative* Salome Wong MD - 04/11/2022 8:31 AM EDT Kristina Burch is a 61 year old female with a history of chronic rhinitis and chronic shortness ofbreath following COVID-19 infection who presents for a follow-up visit and for the completion of allergy skin tests. Her last visit was March 08, 2022. She has had continued nasal congestion and postnasal drip. She has not been using fluticasone nasalspray regularly as she was concerned that this medication may interfere with her allergy skin test results. She complains of cough. She is no longer using supplemental oxygen during the day. Infrequent albuterol use for acute symptoms. (From initial visit on 03/08/22 This is a consultation requested by Dr. Nunez for an allergy and immunology evaluation. My final recommendations will be communicated back to the requesting healthcare provider(s) by way of shared medical record or via U.[place]. mail. Kristina Burch is a 61 year old female who [...] or intubation. She took 3 courses of systemicsteroids for respiratory symptoms in the 2020. She [...] disease), lumbar 07/24/[address] Jose Raul Machuca Essential tremor 04/06/2022 Ex-smoker 04/06/2022 Excessive or frequent menstruation Heavy periods Fibromyalgia 02/26/2014 Hemorrhage of gastrointestinal tract, unspecified History of COVID-19 06/13/202105/2021 Hydrocephalus, adult (HCC) 02/09/2003 Hypertension, essential 01/22/2019 Living will on file 04/06/2022 DPA: Dustin () Lung nodule 01/24/2022 Seeing pulm Migraines 07/26/2021 Used to see neuro and was getting Botox Mild dysplasia of cervix 2006 Mixed hyperlipidemia 01/20/2016 Nonrheumatic mitral valve disorder, unspecified 04/06/2016 Obstructive sleep apnea 10/13/2016 DME - [facility] Plantar fasciitis 2018 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 Scott Quarles Postcoital bleeding Primary insomnia 06/13/2021 Primary osteoarthritis of both shoulders 04/06/2022 Seeing anahi machuca Rectocele 04/19/2007 Renal cyst 07/13/2016 Situational mixed [...] filters. Fax 30 day download report to [phone] to assess residual ahi.^Disp: ^Rfl: meloxicam (MOBIC) 15 mg tablet^Take 1 tablet by mouth once daily. Take with food.^Disp: 90 tablet^Rfl: 1 hydrOXYzine HCl (ATARAX) 10 mg tablet^Take 1 tablet by mouth three times daily as needed.^Disp: 60 tablet^Rfl: 1 atorvastatin (LIPITOR) 20 mg tablet^Take 1 tablet by mouth daily at bedtime. For cholesterol.^Disp:90 tablet^Rfl: 1 sertraline (ZOLOFT) 100 mg tablet^Take [...] needed for wheezing/shortness of breath. 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 Salome Wong MD documented in this encounterOhiohealth [facility]08-04-2022 History of Present illness Narrative* Ganga Nunez MD - 04/06/2022 1:40 PM EDT Chief Complaint Patient presents with: Physical HPI Kristina Burch is a 61 year old female who [...] Also was when she was in her day putting seat belt on she turned and felt a pop having pain in left shoulder. Patient discussed her balance issues along with her incontinence and memory concerns with her Neurologist recently and underwent a lumbar puncture with her Hx of Hydrocephalus. Patient feels this wasbeneficial but still with some symptoms. 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 Scott Quarles Postcoital bleeding Primary insomnia 06/13/2021 Rectocele 04/19/2007 [...] filters. Fax 30 day download report to [phone] to assess residual ahi. meloxicam (MOBIC) 15 [...] needed for wheezing/shortness of breath. Use over 5- 15minutes. (Patient not taking: Reported on03/20/2022 ) vit C-Zn gluc-herbal no.325 (ELDERBERRY ZINC VIT C) 90-15 mg lozg Use 1 Lozenge as instructed twicedaily. albuterol HFA (PROVENTIL HFA, VENTOLIN HFA) 90 [...] BP Cuff Size: Regular Adult) Pulse 60 Resp18 Ht 172.7 cm (5' 8) Wt 87.1 kg (192 lb) LMP 08/04/2008 [...] symmetric. Sensation to light touch and crainal nerves2-12 intact.. Health Maintenance List HIV SCREENING Never [...] Abs Lymph 1.00 - 4.00 k/uL 2.36 Costilla% % 10.7 Abs Costilla <0.87 k/uL 1.04 (H) Eosin% % 0.6 [...] diet of 1000 mg/day for under 50, 1200- 1500 mg/day for 50+ - Discussed need and [...] she did feel better with the lumbar punctureprocedure but still with mild symptoms. 5. Other [...] 10-12 months F/u in 6 months leland Nunez MD documented in this encounterOhiohealth [facility]07-27-2022 Miscellaneous Notes* Telephone Encounter - Dari Davis MA - 03/29/2022 1:02 PM EDT Sent demographics, script and office note To: [facility] Fax:[phone] Phone: documented in this encounterOhiohealth Pickering[facility]07-27-2022 History of Present illness Narrative* Opal Mendez, KALEIGH.ELEVATOR CONSTRUCTOR HYDRAULIC - 03/29/2022 12:00 PM EDT Images from the original note were not included. [facility] Follow up/ Established [...] for immediate contact and intervention. Geena Conway [facility] Interval history : Pt consents to virtual visit via [employer]. Here for follow up for huber. SLEEP APNEA Sleep apnea type : HUBER, Most Recent Apnea-Hypopnea Index (AHI): 7.6 on 2019 split study Treatment : PAP therapy Registered [...] population = 50. Five points is a clinicallymeaningful difference.) 07/13/2021 11/03/2021 01/29/2022 Physical T-Score 34.9 [...] mg lozg Use 1 Lozenge as instructed twicedaily. albuterol HFA (PROVENTIL HFA, VENTOLIN HFA) 90 mcg/actuation inhaler Inhale 2 Puffs as instructed every 4 hours as needed for wheezing/shortness of breath. losartan (COZAAR) 50 mg tablet 50 mg once daily. omega-3/dha/epa/dpa/fish oil (OMEGA-3 2100 ORAL) Take by mouth. CPAP Adjust pressures to Autopap 6-11 cm H2O, SEND Heat Humidity tubing (SHAYLA), suitable mask ( maskfitting for Airfit N30i), Lifetime supplies, opt Chinstrap, [...] external cleaning device and has not noted par ticles in tubing/mask. Due to fatigue, recommend restarting pap therapy. Needs new dme company. Pulmonology want her to use oxygen with pap therapy. PLAN: - Dme change to [facility]: Provide supplies for autopap 6-11 cm H20. Submit download report to assess residual ahi. - Follow-up in 2 months. Will have schedulers contact. Opal Mendze APRN.CNP documented in this encounterOhiohealth [facility]ering[facility]07-22-2022 Miscellaneous Notes* Telephone Encounter - Scott Napier Ma - 03/24/2022 8:33 AM EDT Patient was notified and will call back to schedule ortho Scott Napier Ma * Telephone Encounter - Edwina Khoury PA-C - 03/24/2022 8:17 AM EDT Try not to mess with the area. a reason for pain from lipoma is over manipulation. We will get opinion from ortho. May need to see general surgeon though if lipoma pain continues. Edwina Khoury PA-C * Telephone Encounter - Claribel Mason LPN - 03/24/2022 8:08 AM EDT Pot notified of results and verbalizes understanding. Pt reports she has had problems with her knees for years. Pt would like referral to Ortho. Pt is also questioning what to do about her leg. States area is tender and she is getting anotherknot up above the current area. Ok to leave . Freddy Mason LPN * Telephone Encounter - Edwina Khoury PA-C - 03/24/2022 7:51 AM EDT Mri shows a lipoma in the area of concern. This is benign. It incidentally noted a tear in the meniscus as well.. if she is having knee pain, next step would be seeing ortho. Edwina Khoury PA-C documented in this encounterOhiohealth [facility]ering[facility]07-18-2022 History of Present illness Narrative* Scott Quarles MD - 03/20/2022 9:30 AM EDT Images from the original note were not included. . Respiratory [place] Note Patient name: Kristina Burch PCP: Ganga Nunez MD CC: Post COVID chronic dyspnea HPI: Kristina Burch 61 year old female former minimal smoker [...] after repeat CT of her chest and am bulatory oxygen assessment. She continues to have significant [...] pending second opinion regarding her sleep apnea andneed for CPAP to obtain equipment through a [...] Supply Carrier Walking Assistance/Device Forehead 15 NAME: [facility]ica [facility]io [facility] PATIENT NAME: Kristina Burch DATE: March 20, 2022 TIME: 9:26 AM [...] Abs Lymph 1.00 - 4.00 k/uL 2.36 Costilla% % 10.7 Abs Costilla <0.87 k/uL 1.04 High Eosin% % 0.6 Abs Eosin <0.46 k/uL 0.06 Baso% % 0.3 Abs Baso <0.11 k/uL 0.03 Immature Gran % % 0.5 Abs Immature Gran <0.10 k/uL 0.05 NRBC /100 WBC 0.0 Absolute nRBC <0.01 k/uL <0.01 Diff Type Auto Imaging / Diagnostic Studies: DATE OF EXAM: Mar 13 2022 9:18AM [facility]AM[facility]ATION: CHEST CT WITHOUT CONTRAST CLINICAL [...] imaged thyroid gland is normal. No lymphadenopathy inthe supraclavicular, axillary, mediastinal, or hilar regions. Heart, pericardium, and thoracic vessels: The main pulmonary arteries are normal in caliber. There is ectatic ascending aorta measuring 4.5 cm in diameter. The cardiac chambers are normal in size. Punctate coronary artery atherosclerotic calcifications are noted, although the study is not optimizedfor coronary assessment. No pericardial effusion or thickening. 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 Scott Quarles Postcoital bleeding Primary insomnia 06/13/2021 Rectocele 04/19/2007 [...] mg lozg Use 1 Lozenge as instructed twicedaily. albuterol HFA (PROVENTIL HFA, VENTOLIN HFA) 90 mcg/actuation inhaler Inhale 2 Puffs as instructed every 4 hours as needed for wheezing/shortness of breath. losartan (COZAAR) 50 mg tablet 50 mg once daily. omega-3/dha/epa/dpa/fish oil (OMEGA-3 2100 ORAL) Take by mouth. CPAP Adjust pressures to Autopap 6-11 cm H2O, SEND Heat Humidity tubing (SHAYLA), suitable mask ( maskfitting for Airfit N30i), Lifetime supplies, opt Chinstrap, [...] to her previous COVID-pneumonia and oxygen saturation isadequate -No specific therapy recommended at this time other than as needed albuterol and continued activityas tolerated 2. Lung nodule -6 mm noncalcified pulmonary nodule, stable -Follow-up CT 1 year 3. Chronic hypoxemic respiratory failure -Resolved -No need for supplemental continuous oxygen Scott Quarles MD Respiratory [place] documented in this encounterOhiohealth [facility]07-18-[facility]22 Procedure note* CONNOR Reyes - 03/20/2022 9:26 AM EDT Associated Order(s): OXIMETRY WITH AMBULATION RESPIRATORY THERAPY [...] 15 NAME: CONNOR Reyes PATIENT NAME: Kristina Burch DATE: March 20, 2022 TIME: 9:26 AM Comment: documented in this encounterOhiohealth Pickering[facility]07-18-2022 Nurse Note* Luly Bae LPN - 03/20/2022 9:23 AM EDT Intake information documented in the prior visit with CONNOR Reyes today. documented in this encounterOhiohealth [facility]ering[facility]07-18-2022 History of Present illness Narrative* CONNOR Reyes - 03/20/2022 8:53 AM EDT PULM FUNCTION SMARTBLOCK: Provider: Scott Quarles MD Assisting Tech: CONNOR Reyes Oximetry - Ambulation: 1 documented in this encounterOhiohealth [facility]ering[facility]07-11-2022 History of Present illness Narrative* RT Alba(R) - 03/13/2022 9:00 AM EDT Radiology Service Progress Note PATIENT NAME: Kristina Burch DATE OF SERVICE: March 13, 2022 TIME: 9:26 AM PATIENT IDENTITY VERIFICATION COMPLETED USING TWO (2) IDENTIFIERS: Name and Date of confirmedby patient verbally. FALL SCREENING: Has the patient [...] 13, 2022 9:26 AM documented in this encounterOhiohealth [facility]ering[facility]07-06-2022 Miscellaneous Notes* Telephone Encounter - Claribel Mason LPN - 03/08/2022 11:03 AM EDT Left message on pt's vm that MRI has been ordered and to call back to set up appointment. Claribel Cisneros LPN * Telephone Encounter - Edwina Khoury PA-C - 03/08/2022 10:37 AM EDT Mri ordered. Edwina Khoury PA-C * Telephone Encounter - Claribel Mason LPN - 03/08/2022 9:38 AM EDT Pt notified of results and instructions. Pt would like to do the MRI. Claribel Mason LPN * Telephone Encounter - Edwina Khoury PA-C - 03/08/2022 9:19 AM EDT Let patient know that the US results are rather nonspecific. Possible lipoma however cannot determine. 2 options for next step. 1. Get a MRI of the leg to see if it can better characterize the are. 2. Get opinion from Surgeon. Which does she prefer? documented in this encounterOhiohealth [facility]07-06-2022 Instructions* Patient Instructions* Salome Wong MD - 03/08/2022 8:37 AM EDT Avoid taking antihistamines including cetirizine/zyrtec, loratidine/claritin, benadryl, tylenol pm and advil pm for 5 days before your next visit. Return on Apr 11 at 8:30 am documented in this encounterOhiohealth [facility]07-06-2022 History of Present illness Narrative* Salome Wong MD - 03/08/2022 8:05 AM EDT This is a consultation requested by Dr. Nunez for an allergy and immunology evaluation. My final recommendations will be communicated back to the requesting healthcare provider(s) by way of shared medical record or via U.S. mail. Kristina Burch is a 61 year old female who [...] or intubation. She took 3 courses of systemicsteroids for respiratory symptoms in the 2020. She notes GERD symptoms 1-2 times per week. REVIEW OF SYSTEMS: SINUSITIS: See [place] ASTHMA: The patient has no history of asthma. ECZEMA: The patient has no history of eczema. URTICARIA:The patient does not have a history of urticaria and/or angioedema. 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 Scott Quarles Postcoital bleeding Primary insomnia 06/13/2021 Rectocele 04/19/2007 [...] mg lozg Use 1 Lozenge as instructed twicedaily. albuterol HFA (PROVENTIL HFA, VENTOLIN HFA) 90 mcg/actuation inhaler Inhale 2 Puffs as instructed every 4 hours as needed for wheezing/shortness of breath. losartan (COZAAR) 50 mg tablet 50 mg once daily. omega-3/dha/epa/dpa/fish oil (OMEGA-3 2100 ORAL) Take by mouth. 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 Salome Wong MD documented in this encounterOhiohealth [facility]06-29-2022 Miscellaneous Notes* Telephone Encounter - DELISA Eduardo - 03/01/2022 11:55 AM EDT SOCIAL WORK DISTRESS ASSESSMENT Referral made due [...] Assessment Completed DELISA Eduardo documented in this encounterOhiohealth [facility]06-24-2022 Miscellaneous Notes* Telephone Encounter - Arline Lott LPN - 02/24/2022 8:53 AM EDT Spoke with pt and information listed below given. Pt verbalizes understanding. Arline Lott LPN * Telephone Encounter - Stephanie Lott LPN - 02/24/2022 8:50 AM EDT Phone call placed brief message to contact a nurse. Stephanie Lott LPN * Telephone Encounter - Edwina Khoury PA-C - 02/24/2022 8:34 AM EDT Urine shows infection. I will send in atb. Let us know if not improving. Edwina Khoury PA-C documented in this encounterOhiohealth [facility]06-22-2022 History of Present illness Narrative* Martha Tyler, RT(R) - 02/22/2022 8:00 AM EDT Radiology Service Progress Note PATIENT NAME: Kristina Burch DATE OF SERVICE: February 22, 2022 TIME: 8:13 AM PATIENT IDENTITY VERIFICATION COMPLETED USING TWO (2) IDENTIFIERS: Name and Date of confirmedby patient verbally. FALL SCREENING: Has the patient had 2 falls in the last year or 1 fall with injury or currently using an Ambulatory Assistive Device (Walker, Cane, Wheelchair, Crutches, etc.)? No PATIENT GENDER DATA: Female. status: : No status: NO. PATIENT RELEVANT IMPLANT DATA REVIEWED: Yes RADIOLOGY DEPARTMENT: MR; Exam(s) Completed: Head: Routine Brain [place] MRA PERIPHERAL IV DATA: Not applicable SIGNED BY: RT Jon(R) February 22, 2022 8:13 AM documented in this encounterOhiohealth [facility]06-17-2022 History of Present illness Narrative* Nadira Springer PA-C - 02/17/2022 8:39 AM EDT This note was created using [employer]. Subjective Kristina Burch is a 61 year old female seen today via zoom visit. She is here for evaluation of hydrocephalus. She is s/p neuroendoscopic third ventriculostomy with Dr. Noble is 2000. She states that she is here for a check. She is having some headaches and vision problems. She has had smith's off a nd on since the surgery. She has had vision issues over the past \6 mos. She did go to the contact lens edge buffer and they changed her prescription but sometimes they work and sometimes they don't. She had covid in May and has had issues since then. Prior to her surgery with Dr. Noble she had severe smith's and double vision. Now she will have [...] which included preparing to see the patient, [id number]-sv-[id number] patient care, completing clinical documentation, obtaining and/or reviewing separately obtained history, counseling and educating the patient/family/caregiver, ordering medications, earlene ts, or procedures, communicating with other HCPs (not separately reported), independently interpreting results (not separately reported), communicating results to the patient/family/caregiver and care coordination (not separately reported). documented in this encounterOhiohealth [facility]06-08-2022 Miscellaneous Notes* Telephone Encounter - Edwina Khoury PA-C - 02/08/2022 12:25 PM EDT Noted. Will defer further discussion to neuro. It looks like she has all her needed appoitnments scheduled. One for the hydrocephalus and then with the cerebral vascular specialist after the MRA. Edwina Khoury PA-C * Telephone Encounter - Wilbur Paez MA - 02/08/2022 11:46 AM EDT Spoke with patient and gave provider note. She appreciated that call and update and she had not been told results. Wilbur Paez MA * Telephone Encounter - Edwina Khoury PA-C - 02/08/2022 7:46 AM EDT Please call patient to make sure she [...] just want to make sure. Thanks. Edwina Khouyr PA-C documented in this encounterOhiohealth [facility]06-06-2022 Miscellaneous Notes* Telephone Encounter - Jacklyn DUCKWORTH - 02/06/2022 3:57 PM EDT Looks like patient had neuroendoscopic third ventriculostomy [...] Dr. Gutiérrez and reach out to her~ * Telephone Encounter - Jacklyn DUCKWORTH - 02/06/2022 9:27 AM EDT 1st attempt: Returned missed VM on intake line from this morning to Ana Maria from Dr. Waddell's office in [place], [place]. Inquiring about referring patient for aneurysm, although want to ensure they are referring appropriately? I don't see consult to us directly, therefore triaged. She states that Dr. Waddell has never seen patient, yet PCP is truly referring who works in the same office. Encouraged to reference this phone encounter for any updates~ ENDOVASCULAR INTAKE Patient name: Kristina Burch 1. Confirm Diagnosis/RFV (Reason for Visit): Aneurysm possible 2. Is this a self-referral? no, who is the referring provider : Dr. Ganga Nunez 3. Is this a direct referral? no 4. Have you been recommended for surgery or procedure? No Are you seeking a second opinion? No. 5. Do you have a MRI/MRA/CT/Ultrasound for this diagnosis? Yes. Type of imaging CT BRAIN, name/address of facility where completed February 03, 2022. Confirmed all imaging only done at [facility], no other imaging/records to request at any OSH. 6. Was there a previous surgery or procedure for this diagnosis/reason for visit? No 7. Are there any other health history we should know about? : not sure 8. Would you prefer a virtual visit or in-person visit? In person visit documented in this encounterOhiohealth [facility]06-03-2022 History of Present illness Narrative* RT Alba(R) - 02/03/2022 8:20 AM EDT Radiology Service Progress Note PATIENT NAME: Kristina Burch DATE OF SERVICE: February 03, 2022 TIME: 3:19 PM PATIENT IDENTITY VERIFICATION COMPLETED USING TWO (2) IDENTIFIERS: Name and Date of confirmedby patient verbally. FALL SCREENING: Has the patient [...] 03, 2022 3:19 PM documented in this encounterOhiohealth [facility]06-01-2022 Miscellaneous Notes* Telephone Encounter - Claribel Mason LPN - 02/01/2022 2:15 PM EDT Pt notified of same. Claribel Mason LPN * Telephone Encounter - Edwina Khoury PA-C - 02/01/2022 1:59 PM EDT Let patient know that her carotid US was normal. No significant blockages. 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 Scott Quarles Postcoital bleeding Primary insomnia 06/13/2021 Rectocele 04/19/2007 [...] mg lozg Use 1 Lozenge as instructed twicedaily. albuterol HFA (PROVENTIL HFA, VENTOLIN HFA) 90 [...] Heat Humidity tubing (SHAYLA), suitable mask ( maskfitting for Airfit N30i), Lifetime supplies, opt Chinstrap, [...] RT Edwina Khoury PA-C documented in this encounterOhiohealth [facility]05-24-2022 Miscellaneous Notes* Telephone Encounter - Cathi Almaraz RN - 01/24/2022 4:31 PM EDT Pt called and is notified of providers results and instructions. Pt voices understanding. Cathi Almaraz RN * Telephone Encounter - Ganga Nunez MD - 01/24/2022 3:50 PM EDT Let patient know thyroid labs and CBC [...] For cholesterol. SHAYLA: No Authorizing Provider: GANGA NUNEZ MD documented in this encounterOhiohealth [facility]05-24-2022 History of Present illness Narrative* Ganga Nunez MD - 01/24/2022 8:55 AM EDT Chief Complaint Patient presents with: Follow Up: 6 month Urgent care visit: 2 weeks ago for sinus- c/o multiple other issues at that time and was advised togo to ER- she chose not to go HPI Kristina Burch is a 61 year old female who presents here today for Above Complaints. and Chronic Medical Conditions.. Patient with hx of HLP, HTN, Thoracic aortic aneurysm, Ascending aorta dilatation, Aortic regurge seeing cardio, HUBRE, Recent covid illness, mixed anxiety/depression, vit D def, Fibro, primary insomnia, Hydrocephalus, as well as those reviewed and addressed below in in ROS. She is currently seeing pulmonology for respiratory failure from covid. She was recently in the express care [...] spells. She has an appt with her dry sander tomorrow. Allergies not well controlled and would like to see an throw out clerk. Currently on 2-3 L of oxygen per pulmonary mobic is helpful and can tell the most when she does not take it. Patient feels she is not sleeping well with taking the trazodone. She has been without her CPAP forabout a year now with the recall. Patient also received word from [facility] that they no longer take her insurance. [...] disease), lumbar 07/24/[address] Jose Raul Machuca Excessive or frequent menstruation Heavy periods Fibromyalgia 02/26/2014 Hemorrhage of gastrointestinal tract, unspecified History of COVID-19 06/13/202105/2021 Hydrocephalus, adult (HCC) 02/09/2003 Hypertension, essential 01/22/2019 Mild dysplasia of cervix 2007 Mixed hyperlipidemia 01/20/2016 Nonrheumatic mitral valve disorder, unspecified 04/06/2016 Obstructive sleep apnea 10/13/2016 DME - [facility] Plantar fasciitis 2017 PMH - PAST MEDICAL HISTORY OF RECTAL [...] mg lozg Use 1 Lozenge as instructed twicedaily. albuterol HFA (PROVENTIL HFA, VENTOLIN HFA) 90 [...] Heat Humidity tubing (SHAYLA), suitable mask ( maskfitting for Airfit N30i), Lifetime supplies, opt Chinstrap, [...] hypertension, CHF or palpitations. Has been having chestpain that will increase with activity and seeing [...] ICD10: R42 Check - [facility] - COMP METABOLIC PANEL - TSH BLD - CBC + DIFF - T4 FREE/FREE THYROX - CT BRAIN WO IVCON 15. Syncope, unspecified syncope type - ICD9: 780.2, ICD10: R55 check - [facility] - TSH BLD - CBC [...] legs F/u 6 months complete PE. Ganga Nunez MD documented in this encounterOhiohealth [facility]05-10-2022 Miscellaneous Notes* Telephone Encounter - Abelardo Duran LPN - 01/10/2022 1:24 PM EDT Patient phones requesting refills as follows: Pending Prescriptions Disp Refills MELOXICAM 15 MG TABLET 30 tablet 11 Sig: Take 1 tablet by mouth once daily. Take with food. SHAYLA: No SERTRALINE 100 MG TABLET 30 tablet 5 Sig: Take 1 tablet by mouth once daily. SHAYLA: No MINE 07/26/21 NOV 01/24/22 Please review and advise. Abelardo Duran LPN documented in this encounterOhiohealth [facility]ering[facility]05-03-2022 History of Present illness Narrative* Diana Chavez APRN.ELEVATOR CONSTRUCTOR HYDRAULIC - 01/03/2022 8:20 AM EDT Images from the original note were not included. Subjective HPI Kristina Burch is a 61 year old female who [...] mg lozg Use 1 Lozenge as instructed twicedaily. albuterol HFA (PROVENTIL HFA, VENTOLIN HFA) 90 [...] Heat Humidity tubing (SHAYLA), suitable mask ( maskfitting for Airfit N30i), Lifetime supplies, opt Chinstrap, G47.33. FAMILY HISTORY Problem Relation Age of [...] illness Diana Chavez APRN.CNP documented in this encounterOhiohealth [facility]05-03-2022 Instructions* Patient Instructions* Diana Chavez APRN.ELEVATOR CONSTRUCTOR HYDRAULIC - 01/03/2022 8:19 AM EDT Images from [...] Discussed expected course of illness Diana Chavez APRN.ELEVATOR CONSTRUCTOR HYDRAULIC Adult Sinusitis Patient Education What is Sinusitis? Sinusitis [rmbs-tve-iomw-tis] is inflammation of the sinuses or swelling [...] humidity and outdoor temperature changes, andstructural changes inthe nose may contribute to sinus pain, pressure [...] help. You may be instructed to take dcer-ohg-lzkcjfu medications for symptoms. including fever reducers acetaminophen or ibuprofen, nasal saline spray, cough and cold preparations and decongestants as prescribed by the physician, nurse practitioner or physician teacher's assistant. Self-Care and Prevention: Rest Fluids for hydration Good hand washing Humidifier Avoid smoking and exposure to second hand smoke Avoid sick contacts documented in this encounterOhiohealth [facility]04-15-2022 History of Present illness Narrative* Carmine Montez MD - 12/16/2021 6:25 AM EDT HISTORY AND PHYSICAL Kristina Burch 1960 REFERRING PHYSICIAN: Self CHIEF COMPLAINT: Consult [...] today at the request of Dr. Ganga Nunez MD for my opinion and advice regarding [...] disease), lumbar 07/24/[address] Jose Raul Machuca Excessive or frequent menstruation Heavy periods Fibromyalgia [...] mg lozg Use 1 Lozenge as instructed twicedaily. albuterol HFA (PROVENTIL HFA, VENTOLIN HFA) 90 [...] Heat Humidity tubing (SHAYLA), suitable mask ( maskfitting for Airfit N30i), Lifetime supplies, opt Chinstrap, [...] entered by the nurse and reviewed by ok Nursing Notes: Felisa Chance 12/15/2021 12:32 PM [...] nourished, well hydrated in no acute distress. Thepatient is oriented to time, place, and person. VITALS: Blood pressure 132/69, pulse 65, temperature 36.9 C (98.4 F), height 174 cm (5' 8.5), weight 86.2 kg (190 lb), last menstrual period 08/04/2008, SpO2 100 %. Body mass index is 28.47 kg/m . HEENT: Normal cephalic, ataumatic, pupils are equally round, sclera are anicteric, mucous membranesare moist, oropharynx is clear. Neck has no [...] C. difficile, enteric pathogens, fecal leukocytes, and ovaand parasites. If these are positive we will [...] findings have been communicated to Dr. Ganga Nunez MD via shared medical record. This note will be forwarded to Dr. Ganga Nunez MD. Return to Clinic: The patient is instructed to follow-up with me after the testing has been completed. Carmine Montez MD documented in this encounterOhiohealth Pickering[facility]04-14-2022 Instructions* Patient Instructions* Carmine Montez MD - 12/15/2021 12:49 PM EDT Images from the original note were not included. Bowel Preparation Instructions for: Golytely, Nulytely, Trilyte or Colyte (polyethylene glycol 3350and electrolytes) IF YOU DO NOT FOLLOW THESE [...] If you do not have a responsible sulky driver (family member or friend) with you to take you home, your exam cannot be done with sedation and will be cancelled. Please bring a list of all of your current medications, including any Over-the Counter medications with you. Medications If you take insulin, diabetic medications or blood thinners such as Coumadin (warfarin), Plavix (clopidogrel), Ticlid (ticlopidine hydrochloride), Agrylin (anagrelide), Xarelto (Rivaroxaban), Pradaxa(Dabigatran), Eliquis (Apixaban), and Effient (Prasugrel). You MUST [...] Golytely, Nulytely, Trilyte or Colyte (polyethylene glycol 3350and electrolytes) Three (3) Days Before Your Colonoscopy [...] your exam. 3 08/2019 documented in this encounterOhiohealth Pickering[facility]04-14-2022 Nurse Note* Felisa Loydz - 12/15/2021 12:29 PM EDT REVIEW OF SYSTEMS: General: The patient NOTES [...] Colonoscopy: 09/19/2019 Felisa Chance documented in this encounterOhiohealth Pickering[facility]01-04-2022 History of Past illness Narrative* Problem [...] -remove NGT Pain managed using patient-controlled analgesia (TELEVISION EQUIPMENT OPERATOR) 05/22/2018 05/23/2018 Last Assessment & Plan: Assessment: -pain well controlled PLAN: -wean TELEVISION EQUIPMENT OPERATOR as able Post-operative state 05/21/2018 07/24/2018 Last [...] 10/25/201707/05 Last Assessment & Plan: Assessment: -per dog boarder assessment PLAN: -discuss parenteral nutrition if prolonged [...] of this encounter (statuses as of 03/20/2022) [facility] of Past illness Narrative* Problem [...] -remove NGT Pain managed using patient-controlled analgesia (TELEVISION EQUIPMENT OPERATOR) 05/22/2018 05/23/2018 Last Assessment & Plan: Assessment: -pain well controlled PLAN: -wean TELEVISION EQUIPMENT OPERATOR as able Post-operative state 05/21/2018 07/24/2018 Last [...] 10/25/201707/05 Last Assessment & Plan: Assessment: -per dog boarder assessment PLAN: -discuss parenteral nutrition if prolonged [...] of this encounter (statuses as of 03/20/2022) [facility] of Past illness Narrative* Problem [...] -remove NGT Pain managed using patient-controlled analgesia (TELEVISION EQUIPMENT OPERATOR) 05/22/2018 05/23/2018 Last Assessment & Plan: Assessment: -pain well controlled PLAN: -wean TELEVISION EQUIPMENT OPERATOR as able Post-operative state 05/21/2018 07/24/2018 Last [...] 10/25/201707/05 Last Assessment & Plan: Assessment: -per dog boarder assessment PLAN: -discuss parenteral nutrition if prolonged [...] of this encounter (statuses as of 03/24/2022) [facility] of Past illness Narrative* Problem [...] -remove NGT Pain managed using patient-controlled analgesia (TELEVISION EQUIPMENT OPERATOR) 05/22/2018 05/23/2018 Last Assessment & Plan: Assessment: -pain well controlled PLAN: -wean TELEVISION EQUIPMENT OPERATOR as able Post-operative state 05/21/2018 07/24/2018 Last [...] 10/25/201707/05 Last Assessment & Plan: Assessment: -per dog boarder assessment PLAN: -discuss parenteral nutrition if prolonged [...] of this encounter (statuses as of 03/29/2022) [facility] of Past illness Narrative* Problem [...] -remove NGT Pain managed using patient-controlled analgesia (TELEVISION EQUIPMENT OPERATOR) 05/22/2018 05/23/2018 Last Assessment & Plan: Assessment: -pain well controlled PLAN: -wean TELEVISION EQUIPMENT OPERATOR as able Post-operative state 05/21/2018 07/24/2018 Last [...] 10/25/201707/05 Last Assessment & Plan: Assessment: -per dog boarder assessment PLAN: -discuss parenteral nutrition if prolonged [...] of this encounter (statuses as of 03/29/2022) [facility] of Past illness Narrative* Problem [...] -remove NGT Pain managed using patient-controlled analgesia (TELEVISION EQUIPMENT OPERATOR) 05/22/2018 05/23/2018 Last Assessment & Plan: Assessment: -pain well controlled PLAN: -wean TELEVISION EQUIPMENT OPERATOR as able Post-operative state 05/21/2018 07/24/2018 Last [...] 10/25/201707/05 Last Assessment & Plan: Assessment: -per dog boarder assessment PLAN: -discuss parenteral nutrition if prolonged [...] of this encounter (statuses as of 04/07/2022) [facility] of Past illness Narrative* Problem [...] -remove NGT Pain managed using patient-controlled analgesia (TELEVISION EQUIPMENT OPERATOR) 05/22/2018 05/23/2018 Last Assessment & Plan: Assessment: -pain well controlled PLAN: -wean TELEVISION EQUIPMENT OPERATOR as able Post-operative state 05/21/2018 07/24/2018 Last Assessment & Plan: Assessment: -POD 10 Hartmanns reversal c/b post op ileus and intrabdominal fluid collection PLAN: -removed NGT -encourage ambulation -incentive spirometry Diverticulitis 05/20/2018 07/24/2018 Last Assessment & Plan: S/P Aflred's reversal. Minor emesis. Awaiting ROBF Colostomy present [...] 10/25/201707/05 Last Assessment & Plan: Assessment: -per dog boarder assessment PLAN: -discuss parenteral nutrition if prolonged [...] of this encounter (statuses as of 04/14/2022) [facility] of Past illness Narrative* Problem [...] -remove NGT Pain managed using patient-controlled analgesia (TELEVISION EQUIPMENT OPERATOR) 05/22/2018 05/23/2018 Last Assessment & Plan: Assessment: -pain well controlled PLAN: -wean TELEVISION EQUIPMENT OPERATOR as able Post-operative state 05/21/2018 07/24/2018 Last [...] 10/25/201707/05 Last Assessment & Plan: Assessment: -per dog boarder assessment PLAN: -discuss parenteral nutrition if prolonged [...] of this encounter (statuses as of 04/25/2022) [facility]01-04-2022 History of Past illness Narrative* Problem [...] -remove NGT Pain managed using patient-controlled analgesia (TELEVISION EQUIPMENT OPERATOR) 05/22/2018 05/23/2018 Last Assessment & Plan: Assessment: -pain well controlled PLAN: -wean TELEVISION EQUIPMENT OPERATOR as able Post-operative state 05/21/2018 07/24/2018 Last [...] 10/25/201707/05 Last Assessment & Plan: Assessment: -per dog boarder assessment PLAN: -discuss parenteral nutrition if prolonged [...] of this encounter (statuses as of 04/28/2022) [facility]01-04[facility]22 History of Past illness Narrative* Problem [...] -remove NGT Pain managed using patient-controlled analgesia (TELEVISION EQUIPMENT OPERATOR) 05/22/2018 05/23/2018 Last Assessment & Plan: Assessment: -pain well controlled PLAN: -wean TELEVISION EQUIPMENT OPERATOR as able Post-operative state 05/21/2018 07/24/2018 Last [...] 10/25/201707/05 Last Assessment & Plan: Assessment: -per dog boarder assessment PLAN: -discuss parenteral nutrition if prolonged [...] of this encounter (statuses as of 2022) [facility]01-[facility] History of Past illness Narrative* Problem [...] -remove NGT Pain managed using patient-controlled analgesia (TELEVISION EQUIPMENT OPERATOR) 05/22/2018 05/23/2018 Last Assessment & Plan: Assessment: -pain well controlled PLAN: -wean TELEVISION EQUIPMENT OPERATOR as able Post-operative state 05/21/2018 07/24/2018 Last [...] 10/25/201707/05 Last Assessment & Plan: Assessment: -per dog boarder assessment PLAN: -discuss parenteral nutrition if prolonged [...] of this encounter (statuses as of 05/06/2022) [facility]01-04[facility] History of Past illness Narrative* Problem [...] -remove NGT Pain managed using patient-controlled analgesia (TELEVISION EQUIPMENT OPERATOR) 05/22/2018 05/23/2018 Last Assessment & Plan: Assessment: -pain well controlled PLAN: -wean TELEVISION EQUIPMENT OPERATOR as able Post-operative state 05/21/2018 07/24/2018 Last [...] 10/25/201707/05 Last Assessment & Plan: Assessment: -per dog boarder assessment PLAN: -discuss parenteral nutrition if prolonged [...] of this encounter (statuses as of 05/16/2022) [facility]01-04[facility] History of Past illness Narrative* Problem [...] -remove NGT Pain managed using patient-controlled analgesia (TELEVISION EQUIPMENT OPERATOR) 05/22/2018 05/23/2018 Last Assessment & Plan: Assessment: -pain well controlled PLAN: -wean TELEVISION EQUIPMENT OPERATOR as able Post-operative state 05/21/2018 07/24/2018 Last [...] 10/25/201707/05 Last Assessment & Plan: Assessment: -per dog boarder assessment PLAN: -discuss parenteral nutrition if prolonged [...] of this encounter (statuses as of 05/17/2022) [facility]01-04[facility] History of Past illness Narrative* Problem [...] -remove NGT Pain managed using patient-controlled analgesia (TELEVISION EQUIPMENT OPERATOR) 05/22/2018 05/23/2018 Last Assessment & Plan: Assessment: -pain well controlled PLAN: -wean TELEVISION EQUIPMENT OPERATOR as able Post-operative state 05/21/2018 07/24/2018 Last [...] 10/25/201707/05 Last Assessment & Plan: Assessment: -per dog boarder assessment PLAN: -discuss parenteral nutrition if prolonged [...] of this encounter (statuses as of 05/23/2022) [facility]01-04[facility] History of Past illness Narrative* Problem [...] -remove NGT Pain managed using patient-controlled analgesia (TELEVISION EQUIPMENT OPERATOR) 05/22/2018 05/23/2018 Last Assessment & Plan: Assessment: -pain well controlled PLAN: -wean TELEVISION EQUIPMENT OPERATOR as able Post-operative state 05/21/2018 07/24/2018 Last [...] 10/25/201707/05 Last Assessment & Plan: Assessment: -per dog boarder assessment PLAN: -discuss parenteral nutrition if prolonged [...] of this encounter (statuses as of 06/01/2022) [facility]01-[facility] History of Past illness Narrative* Problem [...] -remove NGT Pain managed using patient-controlled analgesia (TELEVISION EQUIPMENT OPERATOR) 05/22/2018 05/23/2018 Last Assessment & Plan: Assessment: -pain well controlled PLAN: -wean TELEVISION EQUIPMENT OPERATOR as able Post-operative state 05/21/2018 07/24/2018 Last [...] 10/25/201707/05 Last Assessment & Plan: Assessment: -per dog boarder assessment PLAN: -discuss parenteral nutrition if prolonged [...] of this encounter (statuses as of 07/24/2022) [facility]01-04[facility] History of Past illness Narrative* Problem [...] -remove NGT Pain managed using patient-controlled analgesia (TELEVISION EQUIPMENT OPERATOR) 05/22/2018 05/23/2018 Last Assessment & Plan: Assessment: -pain well controlled PLAN: -wean TELEVISION EQUIPMENT OPERATOR as able Post-operative state 05/21/2018 07/24/2018 Last [...] 10/25/201707/05 Last Assessment & Plan: Assessment: -per dog boarder assessment PLAN: -discuss parenteral nutrition if prolonged [...] of this encounter (statuses as of 07/26/2022) [facility]01-04[facility] History of Past illness Narrative* Problem [...] -remove NGT Pain managed using patient-controlled analgesia (TELEVISION EQUIPMENT OPERATOR) 05/22/2018 05/23/2018 Last Assessment & Plan: Assessment: -pain well controlled PLAN: -wean TELEVISION EQUIPMENT OPERATOR as able Post-operative state 05/21/2018 07/24/2018 Last [...] 10/25/201707/05 Last Assessment & Plan: Assessment: -per dog boarder assessment PLAN: -discuss parenteral nutrition if prolonged [...] of this encounter (statuses as of 08/14/2022) [facility]01-04[facility] History of Past illness Narrative* Problem [...] -remove NGT Pain managed using patient-controlled analgesia (TELEVISION EQUIPMENT OPERATOR) 05/22/2018 05/23/2018 Last Assessment & Plan: Assessment: -pain well controlled PLAN: -wean TELEVISION EQUIPMENT OPERATOR as able Post-operative state 05/21/2018 07/24/2018 Last [...] 10/25/201707/05 Last Assessment & Plan: Assessment: -per dog boarder assessment PLAN: -discuss parenteral nutrition if prolonged [...] of this encounter (statuses as of 08/19/2022) [facility]01-04-20[facility] History of Past illness Narrative* Problem [...] -remove NGT Pain managed using patient-controlled analgesia (TELEVISION EQUIPMENT OPERATOR) 05/22/2018 05/23/2018 Last Assessment & Plan: Assessment: -pain well controlled PLAN: -wean TELEVISION EQUIPMENT OPERATOR as able Post-operative state 05/21/2018 07/24/2018 Last Assessment & Plan: Assessment: -POD 10 Hartmanns reversal c/b post op ileus and intrabdominal fluid collection PLAN: -removed NGT -encourage ambulation -incentive spirometry Diverticulitis 05/20/2018 07/24/2018 Last Assessment & Plan: S/P Lafred's reversal. Minor emesis. Awaiting ROBF Colostomy present [...] 10/25/201707/05 Last Assessment & Plan: Assessment: -per dog boarder assessment PLAN: -discuss parenteral nutrition if prolonged [...] of this encounter (statuses as of 08/21/2022) [facility]01-04[facility] History of Past illness Narrative* Problem [...] -remove NGT Pain managed using patient-controlled analgesia (TELEVISION EQUIPMENT OPERATOR) 05/22/2018 05/23/2018 Last Assessment & Plan: Assessment: -pain well controlled PLAN: -wean TELEVISION EQUIPMENT OPERATOR as able Post-operative state 05/21/2018 07/24/2018 Last [...] 10/25/201707/05 Last Assessment & Plan: Assessment: -per dog boarder assessment PLAN: -discuss parenteral nutrition if prolonged [...] of this encounter (statuses as of 08/21/2022) [facility]01-[facility] History of Past illness Narrative* Problem [...] -remove NGT Pain managed using patient-controlled analgesia (TELEVISION EQUIPMENT OPERATOR) 05/22/2018 05/23/2018 Last Assessment & Plan: Assessment: -pain well controlled PLAN: -wean TELEVISION EQUIPMENT OPERATOR as able Post-operative state 05/21/2018 07/24/2018 Last [...] 10/25/201707/05 Last Assessment & Plan: Assessment: -per dog boarder assessment PLAN: -discuss parenteral nutrition if prolonged [...] of this encounter (statuses as of 09/07/2022) [facility]01[facility] History of Past illness Narrative* Problem [...] -remove NGT Pain managed using patient-controlled analgesia (TELEVISION EQUIPMENT OPERATOR) 05/22/2018 05/23/2018 Last Assessment & Plan: Assessment: -pain well controlled PLAN: -wean TELEVISION EQUIPMENT OPERATOR as able Post-operative state 05/21/2018 07/24/2018 Last [...] 10/25/201707/05 Last Assessment & Plan: Assessment: -per dog boarder assessment PLAN: -discuss parenteral nutrition if prolonged [...] of this encounter (statuses as of 10/09/2022) [facility]01-[facility] History of Past illness Narrative* Problem [...] -remove NGT Pain managed using patient-controlled analgesia (TELEVISION EQUIPMENT OPERATOR) 05/22/2018 05/23/2018 Last Assessment & Plan: Assessment: -pain well controlled PLAN: -wean TELEVISION EQUIPMENT OPERATOR as able Post-operative state 05/21/2018 07/24/2018 Last [...] 10/25/201707/05 Last Assessment & Plan: Assessment: -per dog boarder assessment PLAN: -discuss parenteral nutrition if prolonged [...] of this encounter (statuses as of 10/18/2022) [facility]01-04[facility] History of Past illness Narrative* Problem [...] -remove NGT Pain managed using patient-controlled analgesia (TELEVISION EQUIPMENT OPERATOR) 05/22/2018 05/23/2018 Last Assessment & Plan: Assessment: -pain well controlled PLAN: -wean TELEVISION EQUIPMENT OPERATOR as able Post-operative state 05/21/2018 07/24/2018 Last [...] 10/25/201707/05 Last Assessment & Plan: Assessment: -per dog boarder assessment PLAN: -discuss parenteral nutrition if prolonged [...] of this encounter (statuses as of 10/18/2022) [facility]01-04[facility] History of Past illness Narrative* Problem [...] -remove NGT Pain managed using patient-controlled analgesia (TELEVISION EQUIPMENT OPERATOR) 05/22/2018 05/23/2018 Last Assessment & Plan: Assessment: -pain well controlled PLAN: -wean TELEVISION EQUIPMENT OPERATOR as able Post-operative state 05/21/2018 07/24/2018 Last [...] 10/25/201707/05 Last Assessment & Plan: Assessment: -per dog boarder assessment PLAN: -discuss parenteral nutrition if prolonged [...] of this encounter (statuses as of 10/23/2022) [facility]01-04[facility] History of Past illness Narrative* Problem [...] -remove NGT Pain managed using patient-controlled analgesia (TELEVISION EQUIPMENT OPERATOR) 05/22/2018 05/23/2018 Last Assessment & Plan: Assessment: -pain well controlled PLAN: -wean TELEVISION EQUIPMENT OPERATOR as able Post-operative state 05/21/2018 07/24/2018 Last [...] 10/25/201707/05 Last Assessment & Plan: Assessment: -per dog boarder assessment PLAN: -discuss parenteral nutrition if prolonged [...] of this encounter (statuses as of 11/07/2022) [facility]01-04[facility] History of Past illness Narrative* Problem [...] -remove NGT Pain managed using patient-controlled analgesia (TELEVISION EQUIPMENT OPERATOR) 05/22/2018 05/23/2018 Last Assessment & Plan: Assessment: -pain well controlled PLAN: -wean TELEVISION EQUIPMENT OPERATOR as able Post-operative state 05/21/2018 07/24/2018 Last [...] 10/25/201707/05 Last Assessment & Plan: Assessment: -per dog boarder assessment PLAN: -discuss parenteral nutrition if prolonged [...] of this encounter (statuses as of 11/13/2022) [facility]01[facility] History of Past illness Narrative* Problem [...] -remove NGT Pain managed using patient-controlled analgesia (TELEVISION EQUIPMENT OPERATOR) 05/22/2018 05/23/2018 Last Assessment & Plan: Assessment: -pain well controlled PLAN: -wean TELEVISION EQUIPMENT OPERATOR as able Post-operative state 05/21/2018 07/24/2018 Last [...] 10/25/201707/05 Last Assessment & Plan: Assessment: -per dog boarder assessment PLAN: -discuss parenteral nutrition if prolonged [...] of this encounter (statuses as of 11/15/2022) [facility]01-04[facility] History of Past illness Narrative* Problem [...] -remove NGT Pain managed using patient-controlled analgesia (TELEVISION EQUIPMENT OPERATOR) 05/22/2018 05/23/2018 Last Assessment & Plan: Assessment: -pain well controlled PLAN: -wean TELEVISION EQUIPMENT OPERATOR as able Post-operative state 05/21/2018 07/24/2018 Last [...] 10/25/201707/05 Last Assessment & Plan: Assessment: -per dog boarder assessment PLAN: -discuss parenteral nutrition if prolonged [...] of this encounter (statuses as of 11/17/2022) [facility]01[facility] History of Past illness Narrative* Problem [...] -remove NGT Pain managed using patient-controlled analgesia (TELEVISION EQUIPMENT OPERATOR) 05/22/2018 05/23/2018 Last Assessment & Plan: Assessment: -pain well controlled PLAN: -wean TELEVISION EQUIPMENT OPERATOR as able Post-operative state 05/21/2018 07/24/2018 Last [...] 10/25/201707/05 Last Assessment & Plan: Assessment: -per dog boarder assessment PLAN: -discuss parenteral nutrition if prolonged [...] of this encounter (statuses as of 11/17/2022) [facility]01-04[facility] History of Past illness Narrative* Problem [...] -remove NGT Pain managed using patient-controlled analgesia (TELEVISION EQUIPMENT OPERATOR) 05/22/2018 05/23/2018 Last Assessment & Plan: Assessment: -pain well controlled PLAN: -wean TELEVISION EQUIPMENT OPERATOR as able Post-operative state 05/21/2018 07/24/2018 Last [...] 10/25/201707/05 Last Assessment & Plan: Assessment: -per dog boarder assessment PLAN: -discuss parenteral nutrition if prolonged [...] of this encounter (statuses as of 11/21/2022) [facility]01[facility] History of Past illness Narrative* Problem [...] -remove NGT Pain managed using patient-controlled analgesia (TELEVISION EQUIPMENT OPERATOR) 05/22/2018 05/23/2018 Last Assessment & Plan: Assessment: -pain well controlled PLAN: -wean TELEVISION EQUIPMENT OPERATOR as able Post-operative state 05/21/2018 07/24/2018 Last [...] 10/25/201707/05 Last Assessment & Plan: Assessment: -per dog boarder assessment PLAN: -discuss parenteral nutrition if prolonged [...] of this encounter (statuses as of 11/22/2022) [facility]01[facility] History of Past illness Narrative* Problem [...] -remove NGT Pain managed using patient-controlled analgesia (TELEVISION EQUIPMENT OPERATOR) 05/22/2018 05/23/2018 Last Assessment & Plan: Assessment: -pain well controlled PLAN: -wean TELEVISION EQUIPMENT OPERATOR as able Post-operative state 05/21/2018 07/24/2018 Last [...] 10/25/201707/05 Last Assessment & Plan: Assessment: -per dog boarder assessment PLAN: -discuss parenteral nutrition if prolonged [...] of this encounter (statuses as of 11/30/2022) [facility]01[facility] History of Past illness Narrative* Problem [...] -remove NGT Pain managed using patient-controlled analgesia (TELEVISION EQUIPMENT OPERATOR) 05/22/2018 05/23/2018 Last Assessment & Plan: Assessment: -pain well controlled PLAN: -wean TELEVISION EQUIPMENT OPERATOR as able Post-operative state 05/21/2018 07/24/2018 Last [...] 10/25/201707/05 Last Assessment & Plan: Assessment: -per dog boarder assessment PLAN: -discuss parenteral nutrition if prolonged [...] of this encounter (statuses as of 12/01/2022) [facility]01[facility] History of Past illness Narrative* Problem [...] -remove NGT Pain managed using patient-controlled analgesia (TELEVISION EQUIPMENT OPERATOR) 05/22/2018 05/23/2018 Last Assessment & Plan: Assessment: -pain well controlled PLAN: -wean TELEVISION EQUIPMENT OPERATOR as able Post-operative state 05/21/2018 07/24/2018 Last [...] 10/25/201707/05 Last Assessment & Plan: Assessment: -per dog boarder assessment PLAN: -discuss parenteral nutrition if prolonged [...] of this encounter (statuses as of 12/11/2022) [facility]01[facility] History of Past illness Narrative* Problem [...] -remove NGT Pain managed using patient-controlled analgesia (TELEVISION EQUIPMENT OPERATOR) 05/22/2018 05/23/2018 Last Assessment & Plan: Assessment: -pain well controlled PLAN: -wean TELEVISION EQUIPMENT OPERATOR as able Post-operative state 05/21/2018 07/24/2018 Last [...] 10/25/201707/05 Last Assessment & Plan: Assessment: -per dog boarder assessment PLAN: -discuss parenteral nutrition if prolonged [...] of this encounter (statuses as of 12/14/2022) [facility] History of Past illness Narrative* Problem [...] -remove NGT Pain managed using patient-controlled analgesia (TELEVISION EQUIPMENT OPERATOR) 05/22/2018 05/23/2018 Last Assessment & Plan: Assessment: -pain well controlled PLAN: -wean TELEVISION EQUIPMENT OPERATOR as able Post-operative state 05/21/2018 07/24/2018 Last [...] 10/25/201707/05 Last Assessment & Plan: Assessment: -per dog boarder assessment PLAN: -discuss parenteral nutrition if prolonged [...] of this encounter (statuses as of 12/18/2022) [facility] History of Past illness Narrative* Problem [...] -remove NGT Pain managed using patient-controlled analgesia (TELEVISION EQUIPMENT OPERATOR) 05/22/2018 05/23/2018 Last Assessment & Plan: Assessment: -pain well controlled PLAN: -wean TELEVISION EQUIPMENT OPERATOR as able Post-operative state 05/21/2018 07/24/2018 Last [...] 10/25/201707/05 Last Assessment & Plan: Assessment: -per dog boarder assessment PLAN: -discuss parenteral nutrition if prolonged [...] of this encounter (statuses as of 01/04/2023) [facility] History of Past illness Narrative* Problem [...] -remove NGT Pain managed using patient-controlled analgesia (TELEVISION EQUIPMENT OPERATOR) 05/22/2018 05/23/2018 Last Assessment & Plan: Assessment: -pain well controlled PLAN: -wean TELEVISION EQUIPMENT OPERATOR as able Post-operative state 05/21/2018 07/24/2018 Last [...] 10/25/201707/05 Last Assessment & Plan: Assessment: -per dog boarder assessment PLAN: -discuss parenteral nutrition if prolonged [...] of this encounter (statuses as of 01/09/2023) [facility] History of Past illness Narrative* Problem [...] -remove NGT Pain managed using patient-controlled analgesia (TELEVISION EQUIPMENT OPERATOR) 05/22/2018 05/23/2018 Last Assessment & Plan: Assessment: -pain well controlled PLAN: -wean TELEVISION EQUIPMENT OPERATOR as able Post-operative state 05/21/2018 07/24/2018 Last [...] 10/25/201707/05 Last Assessment & Plan: Assessment: -per dog boarder assessment PLAN: -discuss parenteral nutrition if prolonged [...] of this encounter (statuses as of 02/07/2023) [facility] History of Past illness Narrative* Problem [...] -remove NGT Pain managed using patient-controlled analgesia (TELEVISION EQUIPMENT OPERATOR) 05/22/2018 05/23/2018 Last Assessment & Plan: Assessment: -pain well controlled PLAN: -wean TELEVISION EQUIPMENT OPERATOR as able Post-operative state 05/21/2018 07/24/2018 Last [...] 10/25/201707/05 Last Assessment & Plan: Assessment: -per dog boarder assessment PLAN: -discuss parenteral nutrition if prolonged [...] of this encounter (statuses as of 02/08/2023) [facility] History of Past illness Narrative* Problem [...] -remove NGT Pain managed using patient-controlled analgesia (TELEVISION EQUIPMENT OPERATOR) 05/22/2018 05/23/2018 Last Assessment & Plan: Assessment: -pain well controlled PLAN: -wean TELEVISION EQUIPMENT OPERATOR as able Post-operative state 05/21/2018 07/24/2018 Last [...] 10/25/201707/05 Last Assessment & Plan: Assessment: -per dog boarder assessment PLAN: -discuss parenteral nutrition if prolonged [...] of this encounter (statuses as of 03/09/2023) [facility] History of Past illness Narrative* Problem [...] NGT Pain managed using patient-c ontrolled analgesia (TELEVISION EQUIPMENT OPERATOR) 05/22/2018 05/23/2018 Last Assessment & Plan: Assessment: -pain well controlled PLAN: -wean TELEVISION EQUIPMENT OPERATOR as able Post-operative state 05/21/2018 018 Last [...] 07/24/2018 Last Assessment & Plan: Assessment: -per dog boarder assessment PLAN: -discuss parenteral nutrition if prolonged [...] of this encounter (statuses as of 03/26/2023) [facility] History of Past illness Narrative* Problem [...] NGT Pain managed using patient-c ontrolled analgesia (TELEVISION EQUIPMENT OPERATOR) 05/22/2018 05/23/2018 Last Assessment & Plan: Assessment: -pain well controlled PLAN: -wean TELEVISION EQUIPMENT OPERATOR as able Post-operative state 05/21/2018 018 Last [...] 07/24/2018 Last Assessment & Plan: Assessment: -per dog boarder assessment PLAN: -discuss parenteral nutrition if prolonged [...] of this encounter (statuses as of 04/05/2023) [facility] History of Past illness Narrative* Problem Noted Date Diagnosed Date Resolved Date Chronic hypoxemic respiratory failure 09/06/2021 03/20/2022 Acute respiratory disease du e to COVID-19 virus 06/16/2021 04/24/2023 Overview: Seeing Dr. Scott Quarles Hypoxia 06/13/2021 03/20/2022 Systemic infection 06/12/2018 8 Intra-abdominal fluid collection 05/28/2018 06/03/2018 Last Assessment & Plan: Assessment: -loculated presacral fluid collection seen on CT 05/28/2018 PLAN: -drain placed -trend output Postoperative ileus 05/27/2018 06/03/20 Last Assessment & Plan: Assessment: -NGT output decreased -passing BM PLAN: -remove NGT Pain managed using patient-c ontrolled analgesia (TELEVISION EQUIPMENT OPERATOR) 05/22/2018 05/23/2018 Last Assessment & Plan: Assessment: -pain well controlled PLAN: -wean TELEVISION EQUIPMENT OPERATOR as able Post-operative state 05/21/2018 018 Last [...] nutrition (TPN) 10/30/2017 11/05/[address] 10/30/2017//201 8 Encounter for ostomy care education 10/30/2017 07/24/2018 Nausea 10/30/2017 11/05/2017 Encounter for nasogastric tube placement 10/25/2017 11/05/2017 Hypocalcemia 10/25/2017 11/05/2017 Malnutrition of mild degree 10/25/2017 07/24/2018 Last Assessment & Plan: Assessment: -per dog boarder assessment PLAN: -discuss parenteral nutrition if prolonged [...] of this encounter (statuses as of 04/24/2023) [facility] History of Past illness Narrative* Problem Noted Date Diagnosed Date Resolved Date Chronic hypoxemic respiratory failure 09/06/2021 03/20/2022 Acute respiratory disease du e to COVID-19 virus 06/16/2021 04/24/2023 Overview: Seeing Dr. Scott Quarles Hypoxia 06/13/2021 03/20/2022 Systemic infection 06/12/2018 8 Intra-abdominal fluid collection 05/28/2018 06/03/2018 Last Assessment & Plan: Assessment: -loculated presacral fluid collection seen on CT 05/28/2018 PLAN: -drain placed -trend output Postoperative ileus 05/27/2018 06/03/20 18 Last Assessment & Plan: Assessment: -NGT output decreased -passing BM PLAN: -remove NGT Pain managed using patient-c ontrolled analgesia (TELEVISION EQUIPMENT OPERATOR) 05/22/2018 05/23/2018 Last Assessment & Plan: Assessment: -pain well controlled PLAN: -wean TELEVISION EQUIPMENT OPERATOR as able Post-operative state 05/21/2018 018 Last [...] 07/24/2018 Last Assessment & Plan: Assessment: -per dog boarder assessment PLAN: -discuss parenteral nutrition if prolonged [...] of this encounter (statuses as of 04/24/2023) [facility] History of Past illness Narrative* Problem Noted Date Diagnosed Date Resolved Date Chronic hypoxemic respiratory failure 09/06/2021 03/20/2022 Acute respiratory disease du e to COVID-19 virus 06/16/2021 04/24/2023 Overview: Seeing Dr. Scott Quarles Hypoxia 06/13/2021 03/20/2022 Systemic infection 06/12/2018 8 Intra-abdominal fluid collection 05/28/2018 06/03/2018 Last Assessment & Plan: Assessment: -loculated presacral fluid collection seen on CT 05/28/2018 PLAN: -drain placed -trend output Postoperative ileus 05/27/2018 06/03/20 18 Last Assessment & Plan: Assessment: -NGT output decreased -passing BM PLAN: -remove NGT Pain managed using patient-c ontrolled analgesia (TELEVISION EQUIPMENT OPERATOR) 05/22/2018 05/23/2018 Last Assessment & Plan: Assessment: -pain well controlled PLAN: -wean TELEVISION EQUIPMENT OPERATOR as able Post-operative state 05/21/2018 018 Last [...] 07/24/2018 Last Assessment & Plan: Assessment: -per dog boarder assessment PLAN: -discuss parenteral nutrition if prolonged [...] of this encounter (statuses as of 04/26/2023) [facility]01-04-[facility]22 History of Past illness Narrative* Problem Noted Date Diagnosed Date Resolved Date Chronic hypoxemic respiratory failure 09/06/2021 03/20/2022 Acute respiratory disease du e to COVID-19 virus 06/16/2021 04/24/2023 Overview: Seeing Dr. Scott Quarles Hypoxia 06/13/2021 03/20/2022 Systemic infection 06/12/2018 8 Intra-abdominal fluid collection 05/28/2018 06/03/2018 Last Assessment & Plan: Assessment: -loculated presacral fluid collection seen on CT 05/28/2018 PLAN: -drain placed -trend output Postoperative ileus 05/27/2018 06/03/20 Last Assessment & Plan: Assessment: -NGT output decreased -passing BM PLAN: -remove NGT Pain managed using patient-c ontrolled analgesia (TELEVISION EQUIPMENT OPERATOR) 05/22/2018 05/23/2018 Last Assessment & Plan: Assessment: -pain well controlled PLAN: -wean TELEVISION EQUIPMENT OPERATOR as able Post-operative state 05/21/2018 018 Last [...] 07/24/2018 Last Assessment & Plan: Assessment: -per dog boarder assessment PLAN: -discuss parenteral nutrition if prolonged [...] of this encounter (statuses as of 05/03/2023) [facility] History of Past illness Narrative* Problem Noted Date Diagnosed Date Resolved Date Chronic hypoxemic respiratory failure 09/06/2021 03/20/2022 Acute respiratory disease du e to COVID-19 virus 06/16/2021 04/24/2023 Overview: Seeing Dr. Scott Quarles Hypoxia 06/13/2021 03/20/2022 Systemic infection 06/12/2018 8 Intra-abdominal fluid collection 05/28/2018 06/03/2018 Last Assessment & Plan: Assessment: -loculated presacral fluid collection seen on CT 05/28/2018 PLAN: -drain placed -trend output Postoperative ileus 05/27/2018 06/03/20 18 Last Assessment & Plan: Assessment: -NGT output decreased -passing BM PLAN: -remove NGT Pain managed using patient-c ontrolled analgesia (TELEVISION EQUIPMENT OPERATOR) 05/22/2018 05/23/2018 Last Assessment & Plan: Assessment: -pain well controlled PLAN: -wean TELEVISION EQUIPMENT OPERATOR as able Post-operative state 05/21/2018 018 Last [...] 07/24/2018 Last Assessment & Plan: Assessment: -per dog boarder assessment PLAN: -discuss parenteral nutrition if prolonged [...] of this encounter (statuses as of 05/18/2023) [facility] History of Past illness Narrative* Problem Noted Date Diagnosed Date Resolved Date Chronic hypoxemic respiratory failure 09/06/2021 03/20/2022 Acute respiratory disease du e to COVID-19 virus 06/16/2021 04/24/2023 Overview: Seeing Dr. Scott Quarles Hypoxia 06/13/2021 03/20/2022 Systemic infection 06/12/2018 8 Intra-abdominal fluid collection 05/28/2018 06/03/2018 Last Assessment & Plan: Assessment: -loculated presacral fluid collection seen on CT 05/28/2018 PLAN: -drain placed -trend output Postoperative ileus 05/27/2018 06/03/20 18 Last Assessment & Plan: Assessment: -NGT output decreased -passing BM PLAN: -remove NGT Pain managed using patient-c ontrolled analgesia (TELEVISION EQUIPMENT OPERATOR) 05/22/2018 05/23/2018 Last Assessment & Plan: Assessment: -pain well controlled PLAN: -wean TELEVISION EQUIPMENT OPERATOR as able Post-operative state 05/21/2018 018 Last [...] 07/24/2018 Last Assessment & Plan: Assessment: -per dog boarder assessment PLAN: -discuss parenteral nutrition if prolonged [...] of this encounter (statuses as of 05/22/2023) [facility] History of Past illness Narrative* Problem Noted Date Diagnosed Date Resolved Date Chronic hypoxemic respiratory failure 09/06/2021 03/20/2022 Acute respiratory disease du e to COVID-19 virus 06/16/2021 04/24/2023 Overview: Seeing Dr. Scott Quarles Hypoxia 06/13/2021 03/20/2022 Systemic infection 06/12/2018 8 Intra-abdominal fluid collection 05/28/2018 06/03/2018 Last Assessment & Plan: Assessment: -loculated presacral fluid collection seen on CT 05/28/2018 PLAN: -drain placed -trend output Postoperative ileus 05/27/2018 06/03/20 Last Assessment & Plan: Assessment: -NGT output decreased -passing BM PLAN: -remove NGT Pain managed using patient-c ontrolled analgesia (TELEVISION EQUIPMENT OPERATOR) 05/22/2018 05/23/2018 Last Assessment & Plan: Assessment: -pain well controlled PLAN: -wean TELEVISION EQUIPMENT OPERATOR as able Post-operative state 05/21/2018 018 Last [...] 07/24/2018 Last Assessment & Plan: Assessment: -per dog boarder assessment PLAN: -discuss parenteral nutrition if prolonged [...] of this encounter (statuses as of 05/25/2023) [facility]01[facility] History of Past illness Narrative* Problem Noted Date Diagnosed Date Resolved Date Chronic hypoxemic respiratory failure 09/06/2021 03/20/2022 Acute respiratory disease du e to COVID-19 virus 06/16/2021 04/24/2023 Overview: Seeing Dr. Scott Quarles Hypoxia 06/13/2021 03/20/2022 Systemic infection 06/12/2018 8 Intra-abdominal fluid collection 05/28/2018 06/03/2018 Last Assessment & Plan: Assessment: -loculated presacral fluid collection seen on CT 05/28/2018 PLAN: -drain placed -trend output Postoperative ileus 05/27/2018 06/03/20 Last Assessment & Plan: Assessment: -NGT output decreased -passing BM PLAN: -remove NGT Pain managed using patient-c ontrolled analgesia (TELEVISION EQUIPMENT OPERATOR) 05/22/2018 05/23/2018 Last Assessment & Plan: Assessment: -pain well controlled PLAN: -wean TELEVISION EQUIPMENT OPERATOR as able Post-operative state 05/21/2018 018 Last [...] 07/24/2018 Last Assessment & Plan: Assessment: -per dog boarder assessment PLAN: -discuss parenteral nutrition if prolonged [...] of this encounter (statuses as of 05/28/2023) [facility] History of Past illness Narrative* Problem Noted Date Diagnosed Date Resolved Date Chronic hypoxemic respiratory failure 09/06/2021 03/20/2022 Acute respiratory disease du e to COVID-19 virus 06/16/2021 04/24/2023 Overview: Seeing Dr. Scott Quarles Hypoxia 06/13/2021 03/20/2022 Systemic infection 06/12/2018 8 Intra-abdominal fluid collection 05/28/2018 06/03/2018 Last Assessment & Plan: Assessment: -loculated presacral fluid collection seen on CT 05/28/2018 PLAN: -drain placed -trend output Postoperative ileus 05/27/2018 06/03/20 18 Last Assessment & Plan: Assessment: -NGT output decreased -passing BM PLAN: -remove NGT Pain managed using patient-c ontrolled analgesia (TELEVISION EQUIPMENT OPERATOR) 05/22/2018 05/23/2018 Last Assessment & Plan: Assessment: -pain well controlled PLAN: -wean TELEVISION EQUIPMENT OPERATOR as able Post-operative state 05/21/2018 018 Last [...] 07/24/2018 Last Assessment & Plan: Assessment: -per dog boarder assessment PLAN: -discuss parenteral nutrition if prolonged [...] 07/12/2007 03/16/2016 Mild dysplasia of cervix 04/19/2007 07/ Irregular menstrual cycle 04/19/2007 Postcoital bleeding 04/19/2007 10/20/19 09 Dyspareunia 04/19/2007 03/16/2016 Cystocele, midline 04/19/2007 9 Female stress incontinence 04/19/2007 0 10/20/2008 Urgency of urination 04/19/2007 016 Mononeuritis 06/29/2006 01/09/2018 documented as of this encounter (statuses as of 06/01/2023) [facility]01-[facility]22 History of Past illness Narrative* Problem Noted Date Diagnosed Date Resolved Date Chronic hypoxemic respiratory failure 09/06/2021 03/20/2022 Acute respiratory disease du e to COVID-19 virus 06/16/2021 04/24/2023 Overview: Seeing Dr. Scott Quarles Hypoxia 06/13/2021 03/20/2022 Systemic infection 06/12/2018 8 Intra-abdominal fluid collection 05/28/2018 06/03/2018 Last Assessment & Plan: Assessment: -loculated presacral fluid collection seen on CT 05/28/2018 PLAN: -drain placed -trend output Postoperative ileus 05/27/2018 06/03/20 18 Last Assessment & Plan: Assessment: -NGT output decreased -passing BM PLAN: -remove NGT Pain managed using patient-c ontrolled analgesia (TELEVISION EQUIPMENT OPERATOR) 05/22/2018 05/23/2018 Last Assessment & Plan: Assessment: -pain well controlled PLAN: -wean TELEVISION EQUIPMENT OPERATOR as able Post-operative state 05/21/2018 018 Last [...] 07/24/2018 Last Assessment & Plan: Assessment: -per dog boarder assessment PLAN: -discuss parenteral nutrition if prolonged [...] of this encounter (statuses as of 06/04/2023) [facility]01[facility] History of Past illness Narrative* Problem Noted Date Diagnosed Date Resolved Date Chronic hypoxemic respiratory failure 09/06/2021 03/20/2022 Acute respiratory disease du e to COVID-19 virus 06/16/2021 04/24/2023 Overview: Seeing Dr. Scott Quarles Hypoxia 06/13/2021 03/20/2022 Systemic infection 06/12/2018 8 Intra-abdominal fluid collection 05/28/2018 06/03/2018 Last Assessment & Plan: Assessment: -loculated presacral fluid collection seen on CT 05/28/2018 PLAN: -drain placed -trend output Postoperative ileus 05/27/2018 06/03/20 Last Assessment & Plan: Assessment: -NGT output decreased -passing BM PLAN: -remove NGT Pain managed using patient-c ontrolled analgesia (TELEVISION EQUIPMENT OPERATOR) 05/22/2018 05/23/2018 Last Assessment & Plan: Assessment: -pain well controlled PLAN: -wean TELEVISION EQUIPMENT OPERATOR as able Post-operative state 05/21/2018 018 Last [...] 07/24/2018 Last Assessment & Plan: Assessment: -per dog boarder assessment PLAN: -discuss parenteral nutrition if prolonged [...] of this encounter (statuses as of 06/05/2023) [facility] History of Past illness Narrative* Problem Noted Date Diagnosed Date Resolved Date Chronic hypoxemic respiratory failure 09/06/2021 03/20/2022 Acute respiratory disease du e to COVID-19 virus 06/16/2021 04/24/2023 Overview: Seeing Dr. Scott Quarles Hypoxia 06/13/2021 03/20/2022 Systemic infection 06/12/2018 8 Intra-abdominal fluid collection 05/28/2018 06/03/2018 Last Assessment & Plan: Assessment: -loculated presacral fluid collection seen on CT 05/28/2018 PLAN: -drain placed -trend output Postoperative ileus 05/27/2018 06/03/20 Last Assessment & Plan: Assessment: -NGT output decreased -passing BM PLAN: -remove NGT Pain managed using patient-c ontrolled analgesia (TELEVISION EQUIPMENT OPERATOR) 05/22/2018 05/23/2018 Last Assessment & Plan: Assessment: -pain well controlled PLAN: -wean TELEVISION EQUIPMENT OPERATOR as able Post-operative state 05/21/2018 018 Last [...] 07/24/2018 Last Assessment & Plan: Assessment: -per dog boarder assessment PLAN: -discuss parenteral nutrition if prolonged [...] of this encounter (statuses as of 06/14/2023) [facility]01[facility] History of Past illness Narrative* Problem Noted Date Diagnosed Date Resolved Date Chronic hypoxemic respiratory failure 09/06/2021 03/20/2022 Acute respiratory disease du e to COVID-19 virus 06/16/2021 04/24/2023 Overview: Seeing Dr. Scott Quarles Hypoxia 06/13/2021 03/20/2022 Systemic infection 06/12/2018 8 Intra-abdominal fluid collection 05/28/2018 06/03/2018 Last Assessment & Plan: Assessment: -loculated presacral fluid collection seen on CT 05/28/2018 PLAN: -drain placed -trend output Postoperative ileus 05/27/2018 06/03/20 18 Last Assessment & Plan: Assessment: -NGT output decreased -passing BM PLAN: -remove NGT Pain managed using patient-c ontrolled analgesia (TELEVISION EQUIPMENT OPERATOR) 05/22/2018 05/23/2018 Last Assessment & Plan: Assessment: -pain well controlled PLAN: -wean TELEVISION EQUIPMENT OPERATOR as able Post-operative state 05/21/2018 018 Last [...] 07/24/2018 Last Assessment & Plan: Assessment: -per dog boarder assessment PLAN: -discuss parenteral nutrition if prolonged [...] of this encounter (statuses as of 06/20/2023) [facility] History of Past illness Narrative* Problem Noted Date Diagnosed Date Resolved Date Chronic hypoxemic respiratory failure 09/06/2021 03/20/2022 Acute respiratory disease du e to COVID-19 virus 06/16/2021 04/24/2023 Overview: Seeing Dr. Scott Quarles Hypoxia 06/13/2021 03/20/2022 Systemic infection 06/12/2018 8 Intra-abdominal fluid collection 05/28/2018 06/03/2018 Last Assessment & Plan: Assessment: -loculated presacral fluid collection seen on CT 05/28/2018 PLAN: -drain placed -trend output Postoperative ileus 05/27/2018 06/03/20 18 Last Assessment & Plan: Assessment: -NGT output decreased -passing BM PLAN: -remove NGT Pain managed using patient-c ontrolled analgesia (TELEVISION EQUIPMENT OPERATOR) 05/22/2018 05/23/2018 Last Assessment & Plan: Assessment: -pain well controlled PLAN: -wean TELEVISION EQUIPMENT OPERATOR as able Post-operative state 05/21/2018 018 Last [...] 07/24/2018 Last Assessment & Plan: Assessment: -per dog boarder assessment PLAN: -discuss parenteral nutrition if prolonged [...] of this encounter (statuses as of 06/22/2023) [facility] History of Past illness Narrative* Problem Noted Date Diagnosed Date Resolved Date Chronic hypoxemic respiratory failure 09/06/2021 03/20/2022 Acute respiratory disease du e to COVID-19 virus 06/16/2021 04/24/2023 Overview: Seeing Dr. Scott Quarles Hypoxia 06/13/2021 03/20/2022 Systemic infection 06/12/2018 8 Intra-abdominal fluid collection 05/28/2018 06/03/2018 Last Assessment & Plan: Assessment: -loculated presacral fluid collection seen on CT 05/28/2018 PLAN: -drain placed -trend output Postoperative ileus 05/27/2018 06/03/20 18 Last Assessment & Plan: Assessment: -NGT output decreased -passing BM PLAN: -remove NGT Pain managed using patient-c ontrolled analgesia (TELEVISION EQUIPMENT OPERATOR) 05/22/2018 05/23/2018 Last Assessment & Plan: Assessment: -pain well controlled PLAN: -wean TELEVISION EQUIPMENT OPERATOR as able Post-operative state 05/21/2018 018 Last [...] 07/24/2018 Last Assessment & Plan: Assessment: -per dog boarder assessment PLAN: -discuss parenteral nutrition if prolonged NPO status Elevated serum creatinine 10/24/2017 Hyponatremia 10/24/2017 10/25/2017 Abdominal distention 10/24/2017 018 Superficial thrombophlebitis of both upper extremities 10/24/2017 01/09/2018 Leukocytosis 10/22/2017 11/05/2017 Abdominal pain 10/22/2017 11/26/2017 Ileus 10/22/2017 11/05/2017 Diverticulitis 10/18/2017 04/29/2018 Iliotibial band syndrome, left leg 06/17/2017 07/24/2018 Cervicalgia 04/30/2014 04/29/2018 Lumbar radiculopathy 07/16/2013 11/01/2 017 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05/2018 Piriformis syndrome [...] of this encounter (statuses as of 07/08/2023) [facility]01[facility] History of Past illness Narrative* Problem Noted Date Diagnosed Date Resolved Date Chronic hypoxemic respiratory failure 09/06/2021 03/20/2022 Acute respiratory disease du e to COVID-19 virus 06/16/2021 04/24/2023 Overview: Seeing Dr. Scott Quarles Hypoxia 06/13/2021 03/20/2022 Systemic infection 06/12/2018 8 Intra-abdominal fluid collection 05/28/2018 06/03/2018 Last Assessment & Plan: Assessment: -loculated presacral fluid collection seen on CT 05/28/2018 PLAN: -drain placed -trend output Postoperative ileus 05/27/2018 06/03/20 Last Assessment & Plan: Assessment: -NGT output decreased -passing BM PLAN: -remove NGT Pain managed using patient-c ontrolled analgesia (TELEVISION EQUIPMENT OPERATOR) 05/22/2018 05/23/2018 Last Assessment & Plan: Assessment: -pain well controlled PLAN: -wean TELEVISION EQUIPMENT OPERATOR as able Post-operative state 05/21/2018 018 Last [...] 07/24/2018 Last Assessment & Plan: Assessment: -per dog boarder assessment PLAN: -discuss parenteral nutrition if prolonged [...] of this encounter (statuses as of 07/08/2023) [facility] History of Past illness Narrative* Problem Noted Date Diagnosed Date Resolved Date Chronic hypoxemic respiratory failure 09/06/2021 03/20/2022 Acute respiratory disease du e to COVID-19 virus 06/16/2021 04/24/2023 Overview: Seeing Dr. Scott Quarles Hypoxia 06/13/2021 03/20/2022 Systemic infection 06/12/2018 8 Intra-abdominal fluid collection 05/28/2018 06/03/2018 Last Assessment & Plan: Assessment: -loculated presacral fluid collection seen on CT 05/28/2018 PLAN: -drain placed -trend output Postoperative ileus 05/27/2018 06/03/20 Last Assessment & Plan: Assessment: -NGT output decreased -passing BM PLAN: -remove NGT Pain managed using patient-c ontrolled analgesia (TELEVISION EQUIPMENT OPERATOR) 05/22/2018 05/23/2018 Last Assessment & Plan: Assessment: -pain well controlled PLAN: -wean TELEVISION EQUIPMENT OPERATOR as able Post-operative state 05/21/2018 018 Last [...] 07/24/2018 Last Assessment & Plan: Assessment: -per dog boarder assessment PLAN: -discuss parenteral nutrition if prolonged [...] of this encounter (statuses as of 07/12/2023) [facility] History of Past illness Narrative* Problem Noted Date Diagnosed Date Resolved Date Chronic hypoxemic respiratory failure 09/06/2021 03/20/2022 Acute respiratory disease du e to COVID-19 virus 06/16/2021 04/24/2023 Overview: Seeing Dr. Scott Quarles Hypoxia 06/13/2021 03/20/2022 Systemic infection 06/12/2018 8 Intra-abdominal fluid collection 05/28/2018 06/03/2018 Last Assessment & Plan: Assessment: -loculated presacral fluid collection seen on CT 05/28/2018 PLAN: -drain placed -trend output Postoperative ileus 05/27/2018 06/03/20 18 Last Assessment & Plan: Assessment: -NGT output decreased -passing BM PLAN: -remove NGT Pain managed using patient-c ontrolled analgesia (TELEVISION EQUIPMENT OPERATOR) 05/22/2018 05/23/2018 Last Assessment & Plan: Assessment: -pain well controlled PLAN: -wean TELEVISION EQUIPMENT OPERATOR as able Post-operative state 05/21/2018 018 Last [...] 07/24/2018 Last Assessment & Plan: Assessment: -per dog boarder assessment PLAN: -discuss parenteral nutrition if prolonged [...] of this encounter (statuses as of 08/09/2023) [facility] History of Past illness Narrative* Problem Noted Date Diagnosed Date Resolved Date Chronic hypoxemic respiratory failure 09/06/2021 03/20/2022 Acute respiratory disease du e to COVID-19 virus 06/16/2021 04/24/2023 Overview: Seeing Dr. Scott Quarles Hypoxia 06/13/2021 03/20/2022 Systemic infection 06/12/2018 8 Intra-abdominal fluid collection 05/28/2018 06/03/2018 Last Assessment & Plan: Assessment: -loculated presacral fluid collection seen on CT 05/28/2018 PLAN: -drain placed -trend output Postoperative ileus 05/27/2018 06/03/20 18 Last Assessment & Plan: Assessment: -NGT output decreased -passing BM PLAN: -remove NGT Pain managed using patient-c ontrolled analgesia (TELEVISION EQUIPMENT OPERATOR) 05/22/2018 05/23/2018 Last Assessment & Plan: Assessment: -pain well controlled PLAN: -wean TELEVISION EQUIPMENT OPERATOR as able Post-operative state 05/21/2018 018 Last [...] 07/24/2018 Last Assessment & Plan: Assessment: -per dog boarder assessment PLAN: -discuss parenteral nutrition if prolonged [...] of this encounter (statuses as of 08/10/2023) [facility] History of Past illness Narrative* Problem Noted Date Diagnosed Date Resolved Date Chronic hypoxemic respiratory failure 09/06/2021 03/20/2022 Acute respiratory disease du e to COVID-19 virus 06/16/2021 04/24/2023 Overview: Seeing Dr. Scott Quarles Hypoxia 06/13/2021 03/20/2022 Systemic infection 06/12/2018 8 Intra-abdominal fluid collection 05/28/2018 06/03/2018 Last Assessment & Plan: Assessment: -loculated presacral fluid collection seen on CT 05/28/2018 PLAN: -drain placed -trend output Postoperative ileus 05/27/2018 06/03/20 18 Last Assessment & Plan: Assessment: -NGT output decreased -passing BM PLAN: -remove NGT Pain managed using patient-c ontrolled analgesia (TELEVISION EQUIPMENT OPERATOR) 05/22/2018 05/23/2018 Last Assessment & Plan: Assessment: -pain well controlled PLAN: -wean TELEVISION EQUIPMENT OPERATOR as able Post-operative state 05/21/2018 018 Last [...] 07/24/2018 Last Assessment & Plan: Assessment: -per dog boarder assessment PLAN: -discuss parenteral nutrition if prolonged [...] of this encounter (statuses as of 08/16/2023) [facility] History of Past illness Narrative* Problem Noted Date Diagnosed Date Resolved Date Chronic hypoxemic respiratory failure 09/06/2021 03/20/2022 Acute respiratory disease du e to COVID-19 virus 06/16/2021 04/24/2023 Overview: Seeing Dr. Scott Quarles Hypoxia 06/13/2021 03/20/2022 Systemic infection 06/12/2018 8 Intra-abdominal fluid collection 05/28/2018 06/03/2018 Last Assessment & Plan: Assessment: -loculated presacral fluid collection seen on CT 05/28/2018 PLAN: -drain placed -trend output Postoperative ileus 05/27/2018 06/03/20 Last Assessment & Plan: Assessment: -NGT output decreased -passing BM PLAN: -remove NGT Pain managed using patient-c ontrolled analgesia (TELEVISION EQUIPMENT OPERATOR) 05/22/2018 05/23/2018 Last Assessment & Plan: Assessment: -pain well controlled PLAN: -wean TELEVISION EQUIPMENT OPERATOR as able Post-operative state 05/21/2018 018 Last [...] 07/24/2018 Last Assessment & Plan: Assessment: -per dog boarder assessment PLAN: -discuss parenteral nutrition if prolonged [...] of this encounter (statuses as of 08/23/2023) [facility] History of Past illness Narrative* Problem Noted Date Diagnosed Date Resolved Date Chronic hypoxemic respiratory failure 09/06/2021 03/20/2022 Acute respiratory disease du e to COVID-19 virus 06/16/2021 04/24/2023 Overview: Seeing Dr. Scott Quarles Hypoxia 06/13/2021 03/20/2022 Systemic infection 06/12/2018 8 Intra-abdominal fluid collection 05/28/2018 06/03/2018 Last Assessment & Plan: Assessment: -loculated presacral fluid collection seen on CT 05/28/2018 PLAN: -drain placed -trend output Postoperative ileus 05/27/2018 06/03/20 18 Last Assessment & Plan: Assessment: -NGT output decreased -passing BM PLAN: -remove NGT Pain managed using patient-c ontrolled analgesia (TELEVISION EQUIPMENT OPERATOR) 05/22/2018 05/23/2018 Last Assessment & Plan: Assessment: -pain well controlled PLAN: -wean TELEVISION EQUIPMENT OPERATOR as able Post-operative state 05/21/2018 018 Last [...] 07/24/2018 Last Assessment & Plan: Assessment: -per dog boarder assessment PLAN: -discuss parenteral nutrition if prolonged [...] as of this encounter (statuses as of 10/11/2023) [facility] History of Past illness Narrative* Problem Noted Date Diagnosed Date Resolved Date Chronic hypoxemic respiratory failure 09/06/2021 03/20/2022 Acute respiratory disease du e to COVID-19 virus 06/16/2021 04/24/2023 Overview: Seeing Dr. Scott Quarles Hypoxia 06/13/2021 03/20/2022 Systemic infection 06/12/2018 8 Intra-abdominal fluid collection 05/28/2018 06/03/2018 Last Assessment & Plan: Assessment: -loculated presacral fluid collection seen on CT 05/28/2018 PLAN: -drain placed -trend output Postoperative ileus 05/27/2018 06/03/20 18 Last Assessment & Plan: Assessment: -NGT output decreased -passing BM PLAN: -remove NGT Pain managed using patient-c ontrolled analgesia (TELEVISION EQUIPMENT OPERATOR) 05/22/2018 05/23/2018 Last Assessment & Plan: Assessment: -pain well controlled PLAN: -wean TELEVISION EQUIPMENT OPERATOR as able Post-operative state 05/21/2018 018 Last [...] 07/24/2018 Last Assessment & Plan: Assessment: -per dog boarder assessment PLAN: -discuss parenteral nutrition if prolonged [...] as of this encounter (statuses as of 10/24/2023) [facility]01-04-2022 History of Past illness Narrative* Problem Noted Date Diagnosed Date Resolved Date Chronic hypoxemic respiratory failure 09/06/2021 03/20/2022 Acute respiratory disease du e to COVID-19 virus 06/16/2021 04/24/2023 Overview: Seeing Dr. Scott Quarles Hypoxia 06/13/2021 03/20/2022 Systemic infection 06/12/2018 8 Intra-abdominal fluid collection 05/28/2018 06/03/2018 Last Assessment & Plan: Assessment: -loculated presacral fluid collection seen on CT 05/28/2018 PLAN: -drain placed -trend output Postoperative ileus 05/27/2018 06/03/20 18 Last Assessment & Plan: Assessment: -NGT output decreased -passing BM PLAN: -remove NGT Pain managed using patient-c ontrolled analgesia (TELEVISION EQUIPMENT OPERATOR) 05/22/2018 05/23/2018 Last Assessment & Plan: Assessment: -pain well controlled PLAN: -wean TELEVISION EQUIPMENT OPERATOR as able Post-operative state 05/21/2018 018 Last [...] 07/24/2018 Last Assessment & Plan: Assessment: -per dog boarder assessment PLAN: -discuss parenteral nutrition if prolonged [...] as of this encounter (statuses as of 11/08/2023) [facility]01-04-2022 History of Past illness Narrative* Problem Noted Date Diagnosed Date Resolved Date Chronic hypoxemic respiratory failure 09/06/2021 03/20/2022 Acute respiratory disease du e to COVID-19 virus 06/16/2021 04/24/2023 Overview: Seeing Dr. Scott Quarles Hypoxia 06/13/2021 03/20/2022 Systemic infection 06/12/2018 8 Intra-abdominal fluid collection 05/28/2018 06/03/2018 Last Assessment & Plan: Assessment: -loculated presacral fluid collection seen on CT 05/28/2018 PLAN: -drain placed -trend output Postoperative ileus 05/27/2018 06/03/20 Last Assessment & Plan: Assessment: -NGT output decreased -passing BM PLAN: -remove NGT Pain managed using patient-c ontrolled analgesia (TELEVISION EQUIPMENT OPERATOR) 05/22/2018 05/23/2018 Last Assessment & Plan: Assessment: -pain well controlled PLAN: -wean TELEVISION EQUIPMENT OPERATOR as able Post-operative state 05/21/2018 018 Last [...] 07/24/2018 Last Assessment & Plan: Assessment: -per dog boarder assessment PLAN: -discuss parenteral nutrition if prolonged [...] as of this encounter (statuses as of 12/07/2023) [facility]01-04-[facility]22 History of Past illness Narrative* Problem Noted Date Diagnosed Date Resolved Date Chronic hypoxemic respiratory failure 09/06/2021 03/20/2022 Acute respiratory disease du e to COVID-19 virus 06/16/2021 04/24/2023 Overview: Seeing Dr. Scott Quarles Hypoxia 06/13/2021 03/20/2022 Systemic infection 06/12/2018 8 Intra-abdominal fluid collection 05/28/2018 06/03/2018 Last Assessment & Plan: Assessment: -loculated presacral fluid collection seen on CT 05/28/2018 PLAN: -drain placed -trend output Postoperative ileus 05/27/2018 06/03/20 Last Assessment & Plan: Assessment: -NGT output decreased -passing BM PLAN: -remove NGT Pain managed using patient-c ontrolled analgesia (TELEVISION EQUIPMENT OPERATOR) 05/22/2018 05/23/2018 Last Assessment & Plan: Assessment: -pain well controlled PLAN: -wean TELEVISION EQUIPMENT OPERATOR as able Post-operative state 05/21/2018 018 Last [...] 07/24/2018 Last Assessment & Plan: Assessment: -per dog boarder assessment PLAN: -discuss parenteral nutrition if prolonged [...] as of this encounter (statuses as of 12/10/2023) [facility]01-04-[facility]22 History of Past illness Narrative* Problem Noted Date Diagnosed Date Resolved Date Chronic hypoxemic respiratory failure 09/06/2021 03/20/2022 Acute respiratory disease du e to COVID-19 virus 06/16/2021 04/24/2023 Overview: Seeing Dr. Scott Quarles Hypoxia 06/13/2021 03/20/2022 Systemic infection 06/12/2018 8 Intra-abdominal fluid collection 05/28/2018 06/03/2018 Last Assessment & Plan: Assessment: -loculated presacral fluid collection seen on CT 05/28/2018 PLAN: -drain placed -trend output Postoperative ileus 05/27/2018 06/03/20 18 Last Assessment & Plan: Assessment: -NGT output decreased -passing BM PLAN: -remove NGT Pain managed using patient-c ontrolled analgesia (TELEVISION EQUIPMENT OPERATOR) 05/22/2018 05/23/2018 Last Assessment & Plan: Assessment: -pain well controlled PLAN: -wean TELEVISION EQUIPMENT OPERATOR as able Post-operative state 05/21/2018 018 Last [...] 07/24/2018 Last Assessment & Plan: Assessment: -per dog boarder assessment PLAN: -discuss parenteral nutrition if prolonged [...] as of this encounter (statuses as of 12/10/2023) [facility]09-16-2021 History of Present illness Narrative* Rose Marie Love RT(R) - 05/19/2021 5:30 PM EDT Radiology Service Progress Note PATIENT NAME: Kristina Burch DATE OF SERVICE: May 19, 2021 TIME: 5:22 PM PATIENT IDENTITY VERIFICATION COMPLETED USING TWO (2) IDENTIFIERS: Name and Date of confirmedby patient verbally. FALL SCREENING: Has the patient had 2 falls in the last year or 1 fall with injury or currently using an Ambulatory Assistive Device (Walker, Cane, Wheelchair, Crutches, etc.)? No PATIENT GENDER DATA: Female. status: : No status: NO. PATIENT RELEVANT IMPLANT DATA REVIEWED: Yes RADIOLOGY DEPARTMENT: General X-ray: Exam(s) Completed: Chest X-Ray PERIPHERAL IV DATA: Not applicable SIGNED BY: RT Jhony(R) May 19, 2021 5:22 PM [facility] of Past illness Narrative* Problem Noted Date Resolved Date Systemic infection 06/12/2018 07/24/2018 Intra-abdominal fluid collection 05/28/2018 06/03/2018 Last Assessment & Plan: Assessment: -loculated presacral fluid collection seen on CT 05/28/2018 PLAN: -drain placed -trend output Postoperative ileus 05/27/2018 06/03/2018 Last Assessment & Plan: Assessment: -NGT output decreased -passing BM PLAN: -remove NGT Pain managed using patient-controlled analgesia (TELEVISION EQUIPMENT OPERATOR) 05/22/2018 05/23/2018 Last Assessment & Plan: Assessment: -pain well controlled PLAN: -wean TELEVISION EQUIPMENT OPERATOR as able Post-operative state 05/21/2018 07/24/2018 Last [...] 10/25/201707/05 Last Assessment & Plan: Assessment: -per dog boarder assessment PLAN: -discuss parenteral nutrition if prolonged [...] of this encounter (statuses as of 12/16/2021) [facility]10-[facility] History of Past illness Narrative* Problem Noted Date Resolved Date Systemic infection 06/12/2018 07/24/2018 Intra-abdominal fluid collection 05/28/2018 06/03/2018 Last Assessment & Plan: Assessment: -loculated presacral fluid collection seen on CT 05/28/2018 PLAN: -drain placed -trend output Postoperative ileus 05/27/2018 06/03/2018 Last Assessment & Plan: Assessment: -NGT output decreased -passing BM PLAN: -remove NGT Pain managed using patient-controlled analgesia (TELEVISION EQUIPMENT OPERATOR) 05/22/2018 05/23/2018 Last Assessment & Plan: Assessment: -pain well controlled PLAN: -wean TELEVISION EQUIPMENT OPERATOR as able Post-operative state 05/21/2018 07/24/2018 Last [...] 10/25/201707/05 Last Assessment & Plan: Assessment: -per dog boarder assessment PLAN: -discuss parenteral nutrition if prolonged [...] of this encounter (statuses as of 01/03/2022) [facility]10-[facility]2018 History of Past illness Narrative* Problem Noted Date Resolved Date Systemic infection 06/12/2018 07/24/2018 Intra-abdominal fluid collection 05/28/2018 06/03/2018 Last Assessment & Plan: Assessment: -loculated presacral fluid collection seen on CT 05/28/2018 PLAN: -drain placed -trend output Postoperative ileus 05/27/2018 06/03/2018 Last Assessment & Plan: Assessment: -NGT output decreased -passing BM PLAN: -remove NGT Pain managed using patient-controlled analgesia (TELEVISION EQUIPMENT OPERATOR) 05/22/2018 05/23/2018 Last Assessment & Plan: Assessment: -pain well controlled PLAN: -wean TELEVISION EQUIPMENT OPERATOR as able Post-operative state 05/21/2018 07/24/2018 Last [...] 10/25/201707/05 Last Assessment & Plan: Assessment: -per dog boarder assessment PLAN: -discuss parenteral nutrition if prolonged [...] of this encounter (statuses as of 01/10/2022) [facility]10[facility] History of Past illness Narrative* Problem Noted Date Resolved Date Systemic infection 06/12/2018 07/24/2018 Intra-abdominal fluid collection 05/28/2018 06/03/2018 Last Assessment & Plan: Assessment: -loculated presacral fluid collection seen on CT 05/28/2018 PLAN: -drain placed -trend output Postoperative ileus 05/27/2018 06/03/2018 Last Assessment & Plan: Assessment: -NGT output decreased -passing BM PLAN: -remove NGT Pain managed using patient-controlled analgesia (TELEVISION EQUIPMENT OPERATOR) 05/22/2018 05/23/2018 Last Assessment & Plan: Assessment: -pain well controlled PLAN: -wean TELEVISION EQUIPMENT OPERATOR as able Post-operative state 05/21/2018 07/24/2018 Last [...] 10/25/201707/05 Last Assessment & Plan: Assessment: -per dog boarder assessment PLAN: -discuss parenteral nutrition if prolonged [...] of this encounter (statuses as of 01/24/2022) [facility]10[facility] History of Past illness Narrative* Problem Noted Date Resolved Date Systemic infection 06/12/2018 07/24/2018 Intra-abdominal fluid collection 05/28/2018 06/03/2018 Last Assessment & Plan: Assessment: -loculated presacral fluid collection seen on CT 05/28/2018 PLAN: -drain placed -trend output Postoperative ileus 05/27/2018 06/03/2018 Last Assessment & Plan: Assessment: -NGT output decreased -passing BM PLAN: -remove NGT Pain managed using patient-controlled analgesia (TELEVISION EQUIPMENT OPERATOR) 05/22/2018 05/23/2018 Last Assessment & Plan: Assessment: -pain well controlled PLAN: -wean TELEVISION EQUIPMENT OPERATOR as able Post-operative state 05/21/2018 07/24/2018 Last [...] 10/25/201707/05 Last Assessment & Plan: Assessment: -per dog boarder assessment PLAN: -discuss parenteral nutrition if prolonged [...] of this encounter (statuses as of 01/24/2022) [facility]10[facility] History of Past illness Narrative* Problem Noted Date Resolved Date Systemic infection 06/12/2018 07/24/2018 Intra-abdominal fluid collection 05/28/2018 06/03/2018 Last Assessment & Plan: Assessment: -loculated presacral fluid collection seen on CT 05/28/2018 PLAN: -drain placed -trend output Postoperative ileus 05/27/2018 06/03/2018 Last Assessment & Plan: Assessment: -NGT output decreased -passing BM PLAN: -remove NGT Pain managed using patient-controlled analgesia (TELEVISION EQUIPMENT OPERATOR) 05/22/2018 05/23/2018 Last Assessment & Plan: Assessment: -pain well controlled PLAN: -wean TELEVISION EQUIPMENT OPERATOR as able Post-operative state 05/21/2018 07/24/2018 Last [...] 10/25/201707/05 Last Assessment & Plan: Assessment: -per dog boarder assessment PLAN: -discuss parenteral nutrition if prolonged [...] of this encounter (statuses as of 02/01/2022) [facility]10-[facility] History of Past illness Narrative* Problem Noted Date Resolved Date Systemic infection 06/12/2018 07/24/2018 Intra-abdominal fluid collection 05/28/2018 06/03/2018 Last Assessment & Plan: Assessment: -loculated presacral fluid collection seen on CT 05/28/2018 PLAN: -drain placed -trend output Postoperative ileus 05/27/2018 06/03/2018 Last Assessment & Plan: Assessment: -NGT output decreased -passing BM PLAN: -remove NGT Pain managed using patient-controlled analgesia (TELEVISION EQUIPMENT OPERATOR) 05/22/2018 05/23/2018 Last Assessment & Plan: Assessment: -pain well controlled PLAN: -wean TELEVISION EQUIPMENT OPERATOR as able Post-operative state 05/21/2018 07/24/2018 Last [...] 10/25/201707/05 Last Assessment & Plan: Assessment: -per dog boarder assessment PLAN: -discuss parenteral nutrition if prolonged [...] of this encounter (statuses as of 02/01/2022) [facility]10[facility] History of Past illness Narrative* Problem Noted Date Resolved Date Systemic infection 06/12/2018 07/24/2018 Intra-abdominal fluid collection 05/28/2018 06/03/2018 Last Assessment & Plan: Assessment: -loculated presacral fluid collection seen on CT 05/28/2018 PLAN: -drain placed -trend output Postoperative ileus 05/27/2018 06/03/2018 Last Assessment & Plan: Assessment: -NGT output decreased -passing BM PLAN: -remove NGT Pain managed using patient-controlled analgesia (TELEVISION EQUIPMENT OPERATOR) 05/22/2018 05/23/2018 Last Assessment & Plan: Assessment: -pain well controlled PLAN: -wean TELEVISION EQUIPMENT OPERATOR as able Post-operative state 05/21/2018 07/24/2018 Last [...] 10/25/201707/05 Last Assessment & Plan: Assessment: -per dog boarder assessment PLAN: -discuss parenteral nutrition if prolonged [...] of this encounter (statuses as of 02/04/2022) [facility]10[facility] History of Past illness Narrative* Problem Noted Date Resolved Date Systemic infection 06/12/2018 07/24/2018 Intra-abdominal fluid collection 05/28/2018 06/03/2018 Last Assessment & Plan: Assessment: -loculated presacral fluid collection seen on CT 05/28/2018 PLAN: -drain placed -trend output Postoperative ileus 05/27/2018 06/03/2018 Last Assessment & Plan: Assessment: -NGT output decreased -passing BM PLAN: -remove NGT Pain managed using patient-controlled analgesia (TELEVISION EQUIPMENT OPERATOR) 05/22/2018 05/23/2018 Last Assessment & Plan: Assessment: -pain well controlled PLAN: -wean TELEVISION EQUIPMENT OPERATOR as able Post-operative state 05/21/2018 07/24/2018 Last [...] 10/25/201707/05 Last Assessment & Plan: Assessment: -per dog boarder assessment PLAN: -discuss parenteral nutrition if prolonged [...] of this encounter (statuses as of 02/06/2022) [facility] History of Past illness Narrative* Problem Noted Date Resolved Date Systemic infection 06/12/2018 07/24/2018 Intra-abdominal fluid collection 05/28/2018 06/03/2018 Last Assessment & Plan: Assessment: -loculated presacral fluid collection seen on CT 05/28/2018 PLAN: -drain placed -trend output Postoperative ileus 05/27/2018 06/03/2018 Last Assessment & Plan: Assessment: -NGT output decreased -passing BM PLAN: -remove NGT Pain managed using patient-controlled analgesia (TELEVISION EQUIPMENT OPERATOR) 05/22/2018 05/23/2018 Last Assessment & Plan: Assessment: -pain well controlled PLAN: -wean TELEVISION EQUIPMENT OPERATOR as able Post-operative state 05/21/2018 07/24/2018 Last [...] 10/25/201707/05 Last Assessment & Plan: Assessment: -per dog boarder assessment PLAN: -discuss parenteral nutrition if prolonged [...] of this encounter (statuses as of 02/17/2022) [facility]10[facility] History of Past illness Narrative* Problem Noted Date Resolved Date Systemic infection 06/12/2018 07/24/2018 Intra-abdominal fluid collection 05/28/2018 06/03/2018 Last Assessment & Plan: Assessment: -loculated presacral fluid collection seen on CT 05/28/2018 PLAN: -drain placed -trend output Postoperative ileus 05/27/2018 06/03/2018 Last Assessment & Plan: Assessment: -NGT output decreased -passing BM PLAN: -remove NGT Pain managed using patient-controlled analgesia (TELEVISION EQUIPMENT OPERATOR) 05/22/2018 05/23/2018 Last Assessment & Plan: Assessment: -pain well controlled PLAN: -wean TELEVISION EQUIPMENT OPERATOR as able Post-operative state 05/21/2018 07/24/2018 Last [...] 10/25/201707/05 Last Assessment & Plan: Assessment: -per dog boarder assessment PLAN: -discuss parenteral nutrition if prolonged [...] of this encounter (statuses as of 02/23/2022) [facility]10[facility] History of Past illness Narrative* Problem Noted Date Resolved Date Systemic infection 06/12/2018 07/24/2018 Intra-abdominal fluid collection 05/28/2018 06/03/2018 Last Assessment & Plan: Assessment: -loculated presacral fluid collection seen on CT 05/28/2018 PLAN: -drain placed -trend output Postoperative ileus 05/27/2018 06/03/2018 Last Assessment & Plan: Assessment: -NGT output decreased -passing BM PLAN: -remove NGT Pain managed using patient-controlled analgesia (TELEVISION EQUIPMENT OPERATOR) 05/22/2018 05/23/2018 Last Assessment & Plan: Assessment: -pain well controlled PLAN: -wean TELEVISION EQUIPMENT OPERATOR as able Post-operative state 05/21/2018 07/24/2018 Last [...] 10/25/201707/05 Last Assessment & Plan: Assessment: -per dog boarder assessment PLAN: -discuss parenteral nutrition if prolonged [...] of this encounter (statuses as of 02/23/2022) [facility] History of Past illness Narrative* Problem Noted Date Resolved Date Systemic infection 06/12/2018 07/24/2018 Intra-abdominal fluid collection 05/28/2018 06/03/2018 Last Assessment & Plan: Assessment: -loculated presacral fluid collection seen on CT 05/28/2018 PLAN: -drain placed -trend output Postoperative ileus 05/27/2018 06/03/2018 Last Assessment & Plan: Assessment: -NGT output decreased -passing BM PLAN: -remove NGT Pain managed using patient-controlled analgesia (TELEVISION EQUIPMENT OPERATOR) 05/22/2018 05/23/2018 Last Assessment & Plan: Assessment: -pain well controlled PLAN: -wean TELEVISION EQUIPMENT OPERATOR as able Post-operative state 05/21/2018 07/24/2018 Last [...] 10/25/201707/05 Last Assessment & Plan: Assessment: -per dog boarder assessment PLAN: -discuss parenteral nutrition if prolonged [...] of this encounter (statuses as of 02/24/2022) [facility] History of Past illness Narrative* Problem Noted Date Resolved Date Systemic infection 06/12/2018 07/24/2018 Intra-abdominal fluid collection 05/28/2018 06/03/2018 Last Assessment & Plan: Assessment: -loculated presacral fluid collection seen on CT 05/28/2018 PLAN: -drain placed -trend output Postoperative ileus 05/27/2018 06/03/2018 Last Assessment & Plan: Assessment: -NGT output decreased -passing BM PLAN: -remove NGT Pain managed using patient-controlled analgesia (TELEVISION EQUIPMENT OPERATOR) 05/22/2018 05/23/2018 Last Assessment & Plan: Assessment: -pain well controlled PLAN: -wean TELEVISION EQUIPMENT OPERATOR as able Post-operative state 05/21/2018 07/24/2018 Last [...] 10/25/201707/05 Last Assessment & Plan: Assessment: -per dog boarder assessment PLAN: -discuss parenteral nutrition if prolonged [...] of this encounter (statuses as of 02/24/2022) [facility] History of Past illness Narrative* Problem Noted Date Resolved Date Systemic infection 06/12/2018 07/24/2018 Intra-abdominal fluid collection 05/28/2018 06/03/2018 Last Assessment & Plan: Assessment: -loculated presacral fluid collection seen on CT 05/28/2018 PLAN: -drain placed -trend output Postoperative ileus 05/27/2018 06/03/2018 Last Assessment & Plan: Assessment: -NGT output decreased -passing BM PLAN: -remove NGT Pain managed using patient-controlled analgesia (TELEVISION EQUIPMENT OPERATOR) 05/22/2018 05/23/2018 Last Assessment & Plan: Assessment: -pain well controlled PLAN: -wean TELEVISION EQUIPMENT OPERATOR as able Post-operative state 05/21/2018 07/24/2018 Last [...] 10/25/201707/05 Last Assessment & Plan: Assessment: -per dog boarder assessment PLAN: -discuss parenteral nutrition if prolonged [...] of this encounter (statuses as of 03/01/2022) [facility] History of Past illness Narrative* Problem Noted Date Resolved Date Systemic infection 06/12/2018 07/24/2018 Intra-abdominal fluid collection 05/28/2018 06/03/2018 Last Assessment & Plan: Assessment: -loculated presacral fluid collection seen on CT 05/28/2018 PLAN: -drain placed -trend output Postoperative ileus 05/27/2018 06/03/2018 Last Assessment & Plan: Assessment: -NGT output decreased -passing BM PLAN: -remove NGT Pain managed using patient-controlled analgesia (TELEVISION EQUIPMENT OPERATOR) 05/22/2018 05/23/2018 Last Assessment & Plan: Assessment: -pain well controlled PLAN: -wean TELEVISION EQUIPMENT OPERATOR as able Post-operative state 05/21/2018 07/24/2018 Last [...] 10/25/201707/05 Last Assessment & Plan: Assessment: -per dog boarder assessment PLAN: -discuss parenteral nutrition if prolonged [...] of this encounter (statuses as of 03/08/2022) [facility] History of Past illness Narrative* Problem Noted Date Resolved Date Systemic infection 06/12/2018 07/24/2018 Intra-abdominal fluid collection 05/28/2018 06/03/2018 Last Assessment & Plan: Assessment: -loculated presacral fluid collection seen on CT 05/28/2018 PLAN: -drain placed -trend output Postoperative ileus 05/27/2018 06/03/2018 Last Assessment & Plan: Assessment: -NGT output decreased -passing BM PLAN: -remove NGT Pain managed using patient-controlled analgesia (TELEVISION EQUIPMENT OPERATOR) 05/22/2018 05/23/2018 Last Assessment & Plan: Assessment: -pain well controlled PLAN: -wean TELEVISION EQUIPMENT OPERATOR as able Post-operative state 05/21/2018 07/24/2018 Last [...] 10/25/201707/05 Last Assessment & Plan: Assessment: -per dog boarder assessment PLAN: -discuss parenteral nutrition if prolonged [...] of this encounter (statuses as of 03/09/2022) [facility] History of Past illness Narrative* Problem Noted Date Resolved Date Systemic infection 06/12/2018 07/24/2018 Intra-abdominal fluid collection 05/28/2018 06/03/2018 Last Assessment & Plan: Assessment: -loculated presacral fluid collection seen on CT 05/28/2018 PLAN: -drain placed -trend output Postoperative ileus 05/27/2018 06/03/2018 Last Assessment & Plan: Assessment: -NGT output decreased -passing BM PLAN: -remove NGT Pain managed using patient-controlled analgesia (TELEVISION EQUIPMENT OPERATOR) 05/22/2018 05/23/2018 Last Assessment & Plan: Assessment: -pain well controlled PLAN: -wean TELEVISION EQUIPMENT OPERATOR as able Post-operative state 05/21/2018 07/24/2018 Last [...] 10/25/201707/05 Last Assessment & Plan: Assessment: -per dog boarder assessment PLAN: -discuss parenteral nutrition if prolonged [...] of this encounter (statuses as of 03/14/2022) [facility] + Plan note Future Appointments [facility] Evaluation note* Diagnosis Onset Date Resolution Status Chest pain acute COVID 2020 acute Valvular heart disease acute Essential hypertension chron ic Hyperlipidemia chronic Palpitations chronic Thoracic aneurysm without mention of rupture [facility] Work Phone: Evaluation note* Diagnosis Diarrhea of presumed infectious origin- Primary documented in this encounter [facility] note* Diagnosis Acute sinusitis, recurrence not specified, unspecified location- Primary documented in this encounter [facility] note* Diagnosis Hypertension, essential- Primary Unspecified essential [...] Other hydrocephalus (HCC) documented in this encounter [facility] note* Diagnosis Lump of skin of lower extremity, right- Primary documented in this encounter [facility] note* Diagnosis Dizziness Dizziness and giddiness Syncope, unspecified syncope type Hydrocephalus, adult (HCC) Obstructive hydrocephalus Other hydrocephalus (HCC) [facility] Diagnosis Other hydrocephalus (HCC) Hydrocephalus, adult (HCC) Obstructive hydrocephalus [facility] Diagnosis Nonruptured cerebral aneurysm Cerebral aneurysm, nonruptured documented in this encounter [facility] note* Diagnosis Localized swelling, mass, or lump of right lower extremity documented in this encounter [facility] note* Diagnosis Chronic rhinitis- Primary Post-COVID chronic dyspnea [facility]* Diagnosis Lung nodules Other nonspecific abnormal finding of lung field Hydrocephalus, adult (HCC) Obstructive hydrocephalus [facility] Diagnosis Post-COVID chronic dyspnea documented in this encounter [facility] note* Diagnosis Post-COVID chronic dyspnea- Primary Lung nodules Other nonspecific abnormal finding of lung field Chronic hypoxemic respiratory failure (HCC) Chronic respiratory failure [facility] Diagnosis Chronic pain of right knee- Primary [facility]* Diagnosis HUBER (obstructive sleep apnea)- Primary Obstructive sleep apnea (adult) (pediatric) Primary hypertension Unspecified essential hypertension Excessive daytime sleepiness [facility]* Diagnosis Well adult exam- Primary Routine [...] of other medications [facility] Diagnosis Nonallergic rhinitis- Primary Chronic rhinitis [facility]* Diagnosis Encounter for screening mammogram for breast cancer [facility]* Diagnosis Gastroesophageal reflux disease, unspecified whether esophagitis present- Primary Colon cancer screening Special screening for malignant neoplasms, colon Diarrhea of presumed infectious origin [facility]* Diagnosis Pre-op evaluation- Primary Preoperative examination, unspecified Primary osteoarthritis of both shoulders Mixed hyperlipidemia Hypertension, essential Unspecified essential hypertension Thoracic aortic aneurysm without rupture (HCC) Thoracic aneurysm without mention of rupture Nonrheumatic mitral valve disorder, unspecified Ascending aorta dilatation (HCC) Thoracic aortic ectasia Essential tremor Essential and other specified forms of tremor Epigastric pain Abdominal pain, epigastric [facility]* Diagnosis Hypertension, essential- Primary Unspecified essential hypertension Acute gastric ulcer, unspecified whether gastric ulcer hemorrhage or perforation present [facility]* Diagnosis Toothache- Primary Unspecified disorder of the teeth and supporting structures URI, acute Acute upper respiratory infections of unspecified site [facility] Diagnosis Urinary frequency- Primary [facility]* Diagnosis Onset Date Resolution Status Osteoarthritis, shoulder acu te 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 acute Dyspnea on exertion acute Valvular heart disease acute Chest pain chronic Essential hypertension chron ic Hyperlipidemia chronic Palpitations chronic Thoracic aneurysm without mention of rupture [facility] Work Phone: Evaluation note* Diagnosis SOB (shortness of breath)- Primary Shortness of breath [facility]* Diagnosis Bronchitis- Primary Bronchitis, not specified as acute or chronic Costochondritis Tietze's disease Suspected COVID-19 virus infection Acute pain of right knee Situational mixed anxiety and depressive disorder Adjustment disorder with mixed anxiety and depressed mood [facility]* Diagnosis Acute bronchitis, unspecified organism- Primary Back spasm Other symptoms referable to back [facility] Diagnosis Primary osteoarthritis of both knees- Primary Primary localized osteoarthrosis, lower leg Pes anserine bursitis Pes anserinus tendinitis or bursitis [facility] Diagnosis Ascending aorta dilatation (HCC)- Primary [...] Sciatica, right side [facility]* Diagnosis Chronic low back pain without sciatica, unspecified back pain laterality- Primary Chronic knee pain, unspecified laterality Hip pain Pain in joint, pelvic region and thigh DDD (degenerative disc disease), lumbar Degeneration of lumbar or lumbosacral intervertebral disc documented [facility]* Diagnosis Spinal stenosis, lumbar region, without neurogenic claudication- Primary Primary osteoarthritis of both knees Primary localized osteoarthrosis, lower leg [facility]* Diagnosis Chronic right-sided low back pain with right-sided sciatica- Primary Primary osteoarthritis of right hip Primary localized osteoarthrosis, pelvic region and thigh Polyarthralgia Pain in joint, multiple sites Fibromyalgia Mylagia and myositis, unspecified [facility]* Diagnosis Spinal stenosis, lumbar region, without neurogenic claudication- Primary Primary osteoarthritis of both knees Primary localized osteoarthrosis, lower leg Primary osteoarthritis of right hip Primary localized osteoarthrosis, pelvic region and thigh [facility]* Diagnosis Situational mixed anxiety and depressive disorder- Primary Adjustment disorder with mixed anxiety and depressed mood Chronic anxiety Anxiety state, unspecified Fibromyalgia Mylagia and myositis, unspecified Spinal stenosis, lumbar region, without neurogenic claudication Right hip pain Pain in joint, pelvic region and thigh Post-COVID chronic dyspnea Hydrocephalus, adult ([facility]) Obstructive hydrocephalus Ataxia Lack of coordination Double vision Diplopia Urinary incontinence, unspecified type Back spasm Other symptoms referable to back Other hydrocephalus ([facility]) Leukocytosis, unspecified type Primary osteoarthritis of right hip Primary localized osteoarthrosis, pelvic region and thigh [facility]* Diagnosis Post-COVID chronic dyspnea- Primary Dependence on nocturnal oxygen therapy Lung nodule Solitary pulmonary nodule Primary osteoarthritis of right hip Primary localized osteoarthrosis, pelvic region and thigh [facility]* Diagnosis Spinal stenosis, lumbar region, without neurogenic claudication- Primary Primary osteoarthritis of both knees Primary localized osteoarthrosis, lower leg Primary osteoarthritis of right hip Primary localized osteoarthrosis, pelvic region and thigh [facility]* Diagnosis Chronic pain syndrome documented [facility]* Diagnosis Spinal stenosis, lumbar region, without neurogenic claudication- Primary Primary osteoarthritis of both knees Primary localized osteoarthrosis, lower leg [facility]* Diagnosis Spinal stenosis, lumbar region, without neurogenic claudication- Primary Primary osteoarthritis of both knees Primary localized osteoarthrosis, lower leg [facility]* Diagnosis Spinal stenosis, lumbar region, without neurogenic claudication- Primary Primary osteoarthritis of both knees Primary localized osteoarthrosis, lower leg [facility]* Diagnosis Spinal stenosis, lumbar region, without neurogenic claudication- Primary Primary osteoarthritis of both knees Primary localized osteoarthrosis, lower leg [facility]* Diagnosis Spinal stenosis, lumbar region, without neurogenic claudication- Primary Primary osteoarthritis of both knees Primary localized osteoarthrosis, lower leg documented [facility]* Diagnosis Onset Date Resolution Status Dizziness acute Dyspnea on exertion acute Chest pain chronic Essential hypertension chron ic Hyperlipidemia chronic Nonrheumatic aortic (valve) insufficiency chronic Palpitations chronic Thoracic aneurysm without mention of rupture chronic Edema noneactive Dizziness acute Dyspnea on exertion acute Essential hypertension chron ic Fatigue chronic Hyperlipidemia chronic Nonrheumatic aortic (valve) insufficiency chronic Palpitations chronic Thoracic aneurysm without mention of rupture chronic Edema noneactive [facility] Work Phone: Evaluation note* Diagnosis Lung nodules- Primary Other nonspecific abnormal finding of lung field [facility]* Diagnosis Generalized osteoarthrosis- Primary Generalized osteoarthrosis, unspecified site Polyarthralgia Pain in joint, multiple sites Fibromyalgia Mylagia and myositis, unspecified [facility]* Diagnosis Post-COVID chronic dyspnea- Primary Lung nodules Other nonspecific abnormal finding of lung field Dependence on nocturnal oxygen therapy HUBER on CPAP Obstructive sleep apnea (adult) (pediatric) [facility]* Diagnosis 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 [facility]* Diagnosis Encounter for Medicare annual wellness [...] nocturnal oxygen therapy [facility]* Diagnosis Rheumatoid arthritis, involving unspecified site, [...] unspecified part (HCC) documented [facility]* Diagnosis 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 Asymptomatic postmenopausal status documented [facility] this [facility]* Diagnosis Other hydrocephalus (HCC)- Primary documented in this encounter [facility] note* Diagnosis Encounter for screening mammogram for breast cancer documented in this encounter [facility] noteNo assessment information availableW[facility] Work [facility]: [facility]* Diagnosis Lung nodules Other nonspecific abnormal finding of lung field documented in this encounter [facility] note* Diagnosis Encounter for screening mammogram for breast cancer [facility]* Diagnosis Viral illness- Primary Unspecified viral infection, in conditions classified elsewhere and of unspecified site documented in this encounter [facility] note* Diagnosis Onset Date Resolution Status Dyspnea on exertion acute Essential hypertension chron ic Hyperlipidemia chronic Nonrheumatic aortic (valve) insufficiency chronic Thoracic aneurysm without mention of rupture [facility] Work Phone: Evaluation note* Diagnosis Pre-op examination- Primary Preoperative examination, unspecified Arthritis of left shoulder region Unspecified arthropathy, shoulder region Chronic left shoulder pain Pain in joint, shoulder region Hypertension, essential Unspecified essential hypertension Thoracic aortic aneurysm without rupture, unspecified part (HCC) Ascending aorta dilatation (HCC) Thoracic aortic ectasia Thumb pain, left [facility]* Diagnosis Vaginal discharge- Primary Leukorrhea, not specified as infective Conjunctivitis of both eyes, unspecified conjunctivitis type URI, acute Acute upper respiratory infections of unspecified site [facility]* Diagnosis Urinary frequency- Primary URI, acute Acute upper respiratory infections of unspecified site [facility]* Diagnosis Pre-op examination- Primary Preoperative examination, unspecified DDD (degenerative disc disease), lumbar Degeneration of lumbar or lumbosacral intervertebral disc Chronic pain syndrome Hypertension, essential Unspecified essential hypertension Bilateral leg edema Edema Thoracic aortic aneurysm without rupture, unspecified part (HCC) Moderate aortic regurgitation Aortic valve disorders Post-COVID chronic dyspnea Dependence on nocturnal oxygen therapy Rash Rash and other nonspecific skin eruption [facility]* Diagnosis Primary insomnia- Primary Persistent disorder of initiating or maintaining sleep RLS (restless legs syndrome) Restless legs syndrome (RLS) HUBER on CPAP Obstructive sleep apnea (adult) (pediatric) documented [facility]* Diagnosis Hypertension, essential- Primary Unspecified essential hypertension Chronic anxiety Anxiety state, unspecified Situational mixed anxiety and depressive disorder Adjustment disorder with mixed anxiety and depressed mood Screening mammogram, encounter for Spinal stenosis, lumbar region, without neurogenic claudication Foot pain, left Pain in limb Class 1 obesity with body mass index (BMI) of 31.0 to 31.9 in adult, unspecified obesity type, unspecified whether serious comorbidity present [facility]* Diagnosis Post-COVID chronic dyspnea- Primary Hypertension, essential Unspecified essential hypertension Leg swelling Swelling of limb Vaginal odor Unspecified symptom associated with female genital organs documented [facility]* Diagnosis Fibromyalgia Mylagia and myositis, unspecified Back spasm Other symptoms referable to back [facility]* Diagnosis Pre-operative examination- Primary Preoperative examination, unspecified Colon cancer screening Special screening for malignant neoplasms, colon Gastroesophageal reflux disease, unspecified whether esophagitis present Ascending aorta dilatation (HCC) Thoracic aortic ectasia Chronic anxiety Anxiety state, unspecified Ex-smoker Personal history of tobacco use, presenting hazards to health Fibromyalgia Mylagia and myositis, unspecified Hydrocephalus, adult (HCC) Obstructive hydrocephalus HUBER (obstructive sleep apnea) Obstructive sleep apnea (adult) (pediatric) Post-COVID chronic dyspnea Lung nodule Solitary pulmonary nodule Moderate aortic regurgitation Aortic valve disorders Renal cyst Unspecified congenital cystic kidney disease Foot pain, left Pain in limb documented [facility]* Diagnosis Pre-operative examination- Primary Preoperative examination, unspecified Colon cancer screening Special screening for malignant neoplasms, colon Gastroesophageal reflux disease, unspecified whether esophagitis present Ascending aorta dilatation (HCC) Thoracic aortic ectasia Chronic anxiety Anxiety state, unspecified Ex-smoker Personal history of tobacco use, presenting hazards to health Fibromyalgia Mylagia and myositis, unspecified Hydrocephalus, adult (HCC) Obstructive hydrocephalus HUBER (obstructive sleep apnea) Obstructive sleep apnea (adult) (pediatric) Post-COVID chronic dyspnea Lung nodule Solitary pulmonary nodule Moderate aortic regurgitation Aortic valve disorders Renal cyst Unspecified congenital cystic kidney disease Urinary frequency- Primary Vaginal discharge Leukorrhea, not specified as infective Vaginal itching Pruritus of genital organs documented [facility]* Diagnosis Pre-operative examination- Primary Preoperative examination, unspecified Colon cancer screening Special screening for malignant neoplasms, colon Gastroesophageal reflux disease, unspecified whether esophagitis present Ascending aorta dilatation (HCC) Thoracic aortic ectasia Chronic anxiety Anxiety state, unspecified Ex-smoker Personal history of tobacco use, presenting hazards to health Fibromyalgia Mylagia and myositis, unspecified Hydrocephalus, adult (HCC) Obstructive hydrocephalus HUBER (obstructive sleep apnea) Obstructive sleep apnea (adult) (pediatric) Post-COVID chronic dyspnea Lung nodule Solitary pulmonary nodule Moderate aortic regurgitation Aortic valve disorders Renal cyst Unspecified congenital cystic kidney disease Thumb pain, left [facility]* Diagnosis Pre-operative examination- Primary Preoperative examination, unspecified Colon cancer screening Special screening for malignant neoplasms, colon Gastroesophageal reflux disease, unspecified whether esophagitis present Ascending aorta dilatation (HCC) Thoracic aortic ectasia Chronic anxiety Anxiety state, unspecified Ex-smoker Personal history of tobacco use, presenting hazards to health Fibromyalgia Mylagia and myositis, unspecified Hydrocephalus, adult (HCC) Obstructive hydrocephalus HUBER (obstructive sleep apnea) Obstructive sleep apnea (adult) (pediatric) Post-COVID chronic dyspnea Lung nodule Solitary pulmonary nodule Moderate aortic regurgitation Aortic valve disorders Renal cyst 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 Asymptomatic postmenopausal status Fibromyalgia Mylagia and myositis, unspecified documented [facility]* Diagnosis Pre-operative examination- Primary Preoperative examination, unspecified Colon cancer screening Special screening for malignant neoplasms, colon Gastroesophageal reflux disease, unspecified whether esophagitis present Ascending aorta dilatation (HCC) Thoracic aortic ectasia Chronic anxiety Anxiety state, unspecified Ex-smoker Personal history of tobacco use, presenting hazards to health Fibromyalgia Mylagia and myositis, unspecified Hydrocephalus, adult (HCC) Obstructive hydrocephalus HUBER (obstructive sleep apnea) Obstructive sleep apnea (adult) (pediatric) Post-COVID chronic dyspnea Lung nodule Solitary pulmonary nodule Moderate aortic regurgitation Aortic valve disorders Renal cyst Unspecified congenital cystic kidney disease Positive occult stool blood test- Primary Nonspecific abnormal finding in stool contents Burning with urination Dysuria documented in this encounter [facility] note* Diagnosis Pre-operative examination- Primary Preoperative examination, unspecified Colon cancer screening Special screening for malignant neoplasms, colon Gastroesophageal reflux disease, unspecified whether esophagitis present Ascending aorta dilatation (HCC) Thoracic aortic ectasia Chronic anxiety Anxiety state, unspecified Ex-smoker Personal history of tobacco use, presenting hazards to health Fibromyalgia Mylagia and myositis, unspecified Hydrocephalus, adult (HCC) Obstructive hydrocephalus HUBER (obstructive sleep apnea) Obstructive sleep apnea (adult) (pediatric) Post-COVID chronic dyspnea Lung nodule Solitary pulmonary nodule Moderate aortic regurgitation Aortic valve disorders Renal cyst Unspecified congenital cystic kidney disease Elevated alkaline phosphatase level- Primary Other nonspecific abnormal serum enzyme levels documented in this encounter [facility] note* Diagnosis Pre-operative examination- Primary Preoperative examination, unspecified Colon cancer screening Special screening for malignant neoplasms, colon Gastroesophageal reflux disease, unspecified whether esophagitis present Ascending aorta dilatation (HCC) Thoracic aortic ectasia Chronic anxiety Anxiety state, unspecified Ex-smoker Personal history of tobacco use, presenting hazards to health Fibromyalgia Mylagia and myositis, unspecified Hydrocephalus, adult (HCC) Obstructive hydrocephalus HUBER (obstructive sleep apnea) Obstructive sleep apnea (adult) (pediatric) Post-COVID chronic dyspnea Lung nodule Solitary pulmonary nodule Moderate aortic regurgitation Aortic valve disorders Renal cyst Unspecified congenital cystic kidney disease HUBER on CPAP- Primary Obstructive sleep apnea (adult) (pediatric) Hypertension, essential Unspecified essential hypertension RLS (restless legs syndrome) Restless legs syndrome (RLS) Chronic insomnia Insomnia, unspecified Frequent nocturnal awakening Other sleep disturbances [facility]* Diagnosis Pre-operative examination- Primary Preoperative examination, unspecified Colon cancer screening Special screening for malignant neoplasms, colon Gastroesophageal reflux disease, unspecified whether esophagitis present Ascending aorta dilatation (HCC) Thoracic aortic ectasia Chronic anxiety Anxiety state, unspecified Ex-smoker Personal history of tobacco use, presenting hazards to health Fibromyalgia Mylagia and myositis, unspecified Hydrocephalus, adult (HCC) Obstructive hydrocephalus HUBER (obstructive sleep apnea) Obstructive sleep apnea (adult) (pediatric) Post-COVID chronic dyspnea Lung nodule Solitary pulmonary nodule Moderate aortic regurgitation Aortic valve disorders Renal cyst Unspecified congenital cystic kidney disease Elevated alkaline phosphatase level- Primary Other nonspecific abnormal serum enzyme levels [facility]* Diagnosis Pre-operative examination- Primary Preoperative examination, unspecified Colon cancer screening Special screening for malignant neoplasms, colon Gastroesophageal reflux disease, unspecified whether esophagitis present Ascending aorta dilatation (HCC) Thoracic aortic ectasia Chronic anxiety Anxiety state, unspecified Ex-smoker Personal history of tobacco use, presenting hazards to health Fibromyalgia Mylagia and myositis, unspecified Hydrocephalus, adult (HCC) Obstructive hydrocephalus HUBER (obstructive sleep apnea) Obstructive sleep apnea (adult) (pediatric) Post-COVID chronic dyspnea Lung nodule Solitary pulmonary nodule Moderate aortic regurgitation Aortic valve disorders Renal cyst 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 [facility]* Diagnosis Pre-operative examination- Primary Preoperative examination, unspecified Colon cancer screening Special screening for malignant neoplasms, colon Gastroesophageal reflux disease, unspecified whether esophagitis present Ascending aorta dilatation (HCC) Thoracic aortic ectasia Chronic anxiety Anxiety state, unspecified Ex-smoker Personal history of tobacco use, presenting hazards to health Fibromyalgia Mylagia and myositis, unspecified Hydrocephalus, adult (HCC) Obstructive hydrocephalus HUBER (obstructive sleep apnea) Obstructive sleep apnea (adult) (pediatric) Post-COVID chronic dyspnea Lung nodule Solitary pulmonary nodule Moderate aortic regurgitation Aortic valve disorders Renal cyst Unspecified congenital cystic kidney disease Urinary urgency- Primary Urgency of urination documented in this encounter [facility] note* Diagnosis Pre-operative examination- Primary Preoperative examination, unspecified Colon cancer screening Special screening for malignant neoplasms, colon Gastroesophageal reflux disease, unspecified whether esophagitis present Ascending aorta dilatation (HCC) Thoracic aortic ectasia Chronic anxiety Anxiety state, unspecified Ex-smoker Personal history of tobacco use, presenting hazards to health Fibromyalgia Mylagia and myositis, unspecified Hydrocephalus, adult (HCC) Obstructive hydrocephalus HUBER (obstructive sleep apnea) Obstructive sleep apnea (adult) (pediatric) Post-COVID chronic dyspnea Lung nodule Solitary pulmonary nodule Moderate aortic regurgitation Aortic valve disorders Renal cyst 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 [facility] Diagnosis Pre-operative examination- Primary Preoperative examination, unspecified Colon cancer screening Special screening for malignant neoplasms, colon Gastroesophageal reflux disease, unspecified whether esophagitis present Ascending aorta dilatation (HCC) Thoracic aortic ectasia Chronic anxiety Anxiety state, unspecified Ex-smoker Personal history of tobacco use, presenting hazards to health Fibromyalgia Mylagia and myositis, unspecified Hydrocephalus, adult (HCC) Obstructive hydrocephalus HUBER (obstructive sleep apnea) Obstructive sleep apnea (adult) (pediatric) Post-COVID chronic dyspnea Lung nodule Solitary pulmonary nodule Moderate aortic regurgitation Aortic valve disorders Renal cyst 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 [facility]* Diagnosis Pre-operative examination- Primary Preoperative examination, unspecified Colon cancer screening Special screening for malignant neoplasms, colon Gastroesophageal reflux disease, unspecified whether esophagitis present Ascending aorta dilatation (HCC) Thoracic aortic ectasia Chronic anxiety Anxiety state, unspecified Ex-smoker Personal history of tobacco use, presenting hazards to health Fibromyalgia Mylagia and myositis, unspecified Hydrocephalus, adult (HCC) Obstructive hydrocephalus HUBER (obstructive sleep apnea) Obstructive sleep apnea (adult) (pediatric) Post-COVID chronic dyspnea Lung nodule Solitary pulmonary nodule Moderate aortic regurgitation Aortic valve disorders Renal cyst Unspecified congenital cystic kidney disease Elevated alkaline phosphatase level Other nonspecific abnormal serum enzyme levels documented in this encounter [facility] note* Diagnosis Pre-operative examination- Primary Preoperative examination, unspecified Colon cancer screening Special screening for malignant neoplasms, colon Gastroesophageal reflux disease, unspecified whether esophagitis present Ascending aorta dilatation (HCC) Thoracic aortic ectasia Chronic anxiety Anxiety state, unspecified Ex-smoker Personal history of tobacco use, presenting hazards to health Fibromyalgia Mylagia and myositis, unspecified Hydrocephalus, adult (HCC) Obstructive hydrocephalus HUBER (obstructive sleep apnea) Obstructive sleep apnea (adult) (pediatric) Post-COVID chronic dyspnea Lung nodule Solitary pulmonary nodule Moderate aortic regurgitation Aortic valve disorders Renal cyst Unspecified congenital cystic kidney disease SOB (shortness of breath) Shortness of breath [facility] Diagnosis Pre-operative examination- Primary Preoperative examination, unspecified Colon cancer screening Special screening for malignant neoplasms, colon Gastroesophageal reflux disease, unspecified whether esophagitis present Ascending aorta dilatation (HCC) Thoracic aortic ectasia Chronic anxiety Anxiety state, unspecified Ex-smoker Personal history of tobacco use, presenting hazards to health Fibromyalgia Mylagia and myositis, unspecified Hydrocephalus, adult (HCC) Obstructive hydrocephalus HUBER (obstructive sleep apnea) Obstructive sleep apnea (adult) (pediatric) Post-COVID chronic dyspnea Lung nodule Solitary pulmonary nodule Moderate aortic regurgitation Aortic valve disorders Renal cyst 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 Other diseases of lung, not elsewhere classified Post-nasal drip Postnasal drip SOB (shortness of breath) Shortness of breath [facility]* Diagnosis Pre-operative examination- Primary Preoperative examination, unspecified Colon cancer screening Special screening for malignant neoplasms, colon Gastroesophageal reflux disease, unspecified whether esophagitis present Ascending aorta dilatation (HCC) Thoracic aortic ectasia Chronic anxiety Anxiety state, unspecified Ex-smoker Personal history of tobacco use, presenting hazards to health Fibromyalgia Mylagia and myositis, unspecified Hydrocephalus, adult (HCC) Obstructive hydrocephalus HUBER (obstructive sleep apnea) Obstructive sleep apnea (adult) (pediatric) Post-COVID chronic dyspnea Lung nodule Solitary pulmonary nodule Moderate aortic regurgitation Aortic valve disorders Renal cyst Unspecified congenital cystic kidney disease Burning with urination- Primary Dysuria documented in this encounter [facility] note* Diagnosis Pre-operative examination- Primary Preoperative examination, unspecified Colon cancer screening Special screening for malignant neoplasms, colon Gastroesophageal reflux disease, unspecified whether esophagitis present Ascending aorta dilatation (HCC) Thoracic aortic ectasia Chronic anxiety Anxiety state, unspecified Ex-smoker Personal history of tobacco use, presenting hazards to health Fibromyalgia Mylagia and myositis, unspecified Hydrocephalus, adult (HCC) Obstructive hydrocephalus HUBER (obstructive sleep apnea) Obstructive sleep apnea (adult) (pediatric) Post-COVID chronic dyspnea Lung nodule Solitary pulmonary nodule Moderate aortic regurgitation Aortic valve disorders Renal cyst 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 Generalized osteoarthrosis Generalized osteoarthrosis, unspecified site Fibromyalgia Mylagia and myositis, unspecified High risk medication use Encounter for long-term (current) use of other medications [facility]* Diagnosis Pre-operative examination- Primary Preoperative examination, unspecified Colon cancer screening Special screening for malignant neoplasms, colon Gastroesophageal reflux disease, unspecified whether esophagitis present Ascending aorta dilatation (HCC) Thoracic aortic ectasia Chronic anxiety Anxiety state, unspecified Ex-smoker Personal history of tobacco use, presenting hazards to health Fibromyalgia Mylagia and myositis, unspecified Hydrocephalus, adult (HCC) Obstructive hydrocephalus HUBER (obstructive sleep apnea) Obstructive sleep apnea (adult) (pediatric) Post-COVID chronic dyspnea Lung nodule Solitary pulmonary nodule Moderate aortic regurgitation Aortic valve disorders Renal cyst Unspecified congenital cystic kidney disease Dysuria- Primary documented [facility]* Diagnosis Pre-operative examination- Primary Preoperative examination, unspecified Colon cancer screening Special screening for malignant neoplasms, colon Gastroesophageal reflux disease, unspecified whether esophagitis present Ascending aorta dilatation (HCC) Thoracic aortic ectasia Chronic anxiety Anxiety state, unspecified Ex-smoker Personal history of tobacco use, presenting hazards to health Fibromyalgia Mylagia and myositis, unspecified Hydrocephalus, adult (HCC) Obstructive hydrocephalus HUBER (obstructive sleep apnea) Obstructive sleep apnea (adult) (pediatric) Post-COVID chronic dyspnea Lung nodule Solitary pulmonary nodule Moderate aortic regurgitation Aortic valve disorders Renal cyst Unspecified congenital cystic kidney disease Gross hematuria- Primary documented in this encounter [facility] note* Diagnosis Pre-operative examination- Primary Preoperative examination, unspecified Colon cancer screening Special screening for malignant neoplasms, colon Gastroesophageal reflux disease, unspecified whether esophagitis present Ascending aorta dilatation (HCC) Thoracic aortic ectasia Chronic anxiety Anxiety state, unspecified Ex-smoker Personal history of tobacco use, presenting hazards to health Fibromyalgia Mylagia and myositis, unspecified Hydrocephalus, adult (HCC) Obstructive hydrocephalus HUBER (obstructive sleep apnea) Obstructive sleep apnea (adult) (pediatric) Post-COVID chronic dyspnea Lung nodule Solitary pulmonary nodule Moderate aortic regurgitation Aortic valve disorders Renal cyst Unspecified congenital cystic kidney disease RLQ abdominal pain- Primary Abdominal pain, right lower quadrant LLQ pain Abdominal pain, left lower quadrant Vaginal odor Unspecified symptom associated with female genital organs PCB (post coital bleeding) Postcoital bleeding Infection in abdomen (HCC) Unspecified peritonitis documented [facility]* Diagnosis Pre-operative examination- Primary Preoperative examination, unspecified Colon cancer screening Special screening for malignant neoplasms, colon Gastroesophageal reflux disease, unspecified whether esophagitis present Ascending aorta dilatation (HCC) Thoracic aortic ectasia Chronic anxiety Anxiety state, unspecified Ex-smoker Personal history of tobacco use, presenting hazards to health Fibromyalgia Mylagia and myositis, unspecified Hydrocephalus, adult (HCC) Obstructive hydrocephalus HUBER (obstructive sleep apnea) Obstructive sleep apnea (adult) (pediatric) Post-COVID chronic dyspnea Lung nodule Solitary pulmonary nodule Moderate aortic regurgitation Aortic valve disorders Renal cyst Unspecified congenital cystic kidney disease Gross hematuria [facility]* Diagnosis Pre-operative examination- Primary Preoperative examination, unspecified Colon cancer screening Special screening for malignant neoplasms, colon Gastroesophageal reflux disease, unspecified whether esophagitis present Ascending aorta dilatation (HCC) Thoracic aortic ectasia Chronic anxiety Anxiety state, unspecified Ex-smoker Personal history of tobacco use, presenting hazards to health Fibromyalgia Mylagia and myositis, unspecified Hydrocephalus, adult (HCC) Obstructive hydrocephalus HUBER (obstructive sleep apnea) Obstructive sleep apnea (adult) (pediatric) Post-COVID chronic dyspnea Lung nodule Solitary pulmonary nodule Moderate aortic regurgitation Aortic valve disorders Renal cyst Unspecified congenital cystic kidney disease LLQ pain Abdominal pain, left lower quadrant RLQ abdominal pain Abdominal pain, right lower quadrant PCB (post coital bleeding) Postcoital bleeding Infection in abdomen (HCC) Unspecified peritonitis [facility]* Diagnosis Pre-operative examination- Primary Preoperative examination, unspecified Colon cancer screening Special screening for malignant neoplasms, colon Gastroesophageal reflux disease, unspecified whether esophagitis present Ascending aorta dilatation (HCC) Thoracic aortic ectasia Chronic anxiety Anxiety state, unspecified Ex-smoker Personal history of tobacco use, presenting hazards to health Fibromyalgia Mylagia and myositis, unspecified Hydrocephalus, adult (HCC) Obstructive hydrocephalus HUBER (obstructive sleep apnea) Obstructive sleep apnea (adult) (pediatric) Post-COVID chronic dyspnea Lung nodule Solitary pulmonary nodule Moderate aortic regurgitation Aortic valve disorders Renal cyst Unspecified congenital cystic kidney disease Gross hematuria- Primary [facility]* Diagnosis Pre-operative examination- Primary Preoperative examination, unspecified Colon cancer screening Special screening for malignant neoplasms, colon Gastroesophageal reflux disease, unspecified whether esophagitis present Ascending aorta dilatation (HCC) Thoracic aortic ectasia Chronic anxiety Anxiety state, unspecified Ex-smoker Personal history of tobacco use, presenting hazards to health Fibromyalgia Mylagia and myositis, unspecified Hydrocephalus, adult (HCC) Obstructive hydrocephalus HUBER (obstructive sleep apnea) Obstructive sleep apnea (adult) (pediatric) Post-COVID chronic dyspnea Lung nodule Solitary pulmonary nodule Moderate aortic regurgitation Aortic valve disorders Renal cyst Unspecified congenital cystic kidney disease Vaginal burning- Primary Other specified symptom associated with female genital organs Vaginal odor Unspecified symptom associated with female genital organs PCB (post coital bleeding) Postcoital bleeding Special screening examination for human papillomavirus (HPV) Cervical cancer screening Screening for malignant neoplasm of the cervix documented [facility]* Diagnosis Pre-operative examination- Primary Preoperative examination, unspecified Colon cancer screening Special screening for malignant neoplasms, colon Gastroesophageal reflux disease, unspecified whether esophagitis present Ascending aorta dilatation (HCC) Thoracic aortic ectasia Chronic anxiety Anxiety state, unspecified Ex-smoker Personal history of tobacco use, presenting hazards to health Fibromyalgia Mylagia and myositis, unspecified Hydrocephalus, adult (HCC) Obstructive hydrocephalus HUBER (obstructive sleep apnea) Obstructive sleep apnea (adult) (pediatric) Post-COVID chronic dyspnea Lung nodule Solitary pulmonary nodule Moderate aortic regurgitation Aortic valve disorders Renal cyst Unspecified congenital cystic kidney disease Screening for HPV (human papillomavirus)- Primary Special screening examination for human papillomavirus (HPV) 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 Routine gynecological examination Cervical high risk HPV (human papillomavirus) test positive Cervical high risk human papillomavirus (HPV) DNA test positive [facility] Diagnosis Pre-operative examination- Primary Preoperative examination, unspecified Colon cancer screening Special screening for malignant neoplasms, colon Gastroesophageal reflux disease, unspecified whether esophagitis present Ascending aorta dilatation (HCC) Thoracic aortic ectasia Chronic anxiety Anxiety state, unspecified Ex-smoker Personal history of tobacco use, presenting hazards to health Fibromyalgia Mylagia and myositis, unspecified Hydrocephalus, adult (HCC) Obstructive hydrocephalus HUBER (obstructive sleep apnea) Obstructive sleep apnea (adult) (pediatric) Post-COVID chronic dyspnea Lung nodule Solitary pulmonary nodule Moderate aortic regurgitation Aortic valve disorders Renal cyst Unspecified congenital cystic kidney disease Vulvar irritation- Primary Other specified noninflammatory disorder of vulva and perineum [facility]* Diagnosis Pre-operative examination- Primary Preoperative examination, unspecified Colon cancer screening Special screening for malignant neoplasms, colon Gastroesophageal reflux disease, unspecified whether esophagitis present Ascending aorta dilatation (HCC) Thoracic aortic ectasia Chronic anxiety Anxiety state, unspecified Ex-smoker Personal history of tobacco use, presenting hazards to health Fibromyalgia Mylagia and myositis, unspecified Hydrocephalus, adult (HCC) Obstructive hydrocephalus HUBER (obstructive sleep apnea) Obstructive sleep apnea (adult) (pediatric) Post-COVID chronic dyspnea Lung nodule Solitary pulmonary nodule Moderate aortic regurgitation Aortic valve disorders Renal cyst Unspecified congenital cystic kidney disease Vulvar irritation- Primary Other specified noninflammatory disorder of vulva and perineum documented [facility] this [facility]* Diagnosis Pre-operative examination- Primary Preoperative examination, unspecified Colon cancer screening Special screening for malignant neoplasms, colon Gastroesophageal reflux disease, unspecified whether esophagitis present Ascending aorta dilatation (HCC) Thoracic aortic ectasia Chronic anxiety Anxiety state, unspecified Ex-smoker Personal history of tobacco use, presenting hazards to health Fibromyalgia Mylagia and myositis, unspecified Hydrocephalus, adult (HCC) Obstructive hydrocephalus HUBER (obstructive sleep apnea) Obstructive sleep apnea (adult) (pediatric) Post-COVID chronic dyspnea Lung nodule Solitary pulmonary nodule Moderate aortic regurgitation Aortic valve disorders Renal cyst Unspecified congenital cystic kidney disease Urgency of urination- Primary Gross hematuria Urge incontinence Renal cyst Unspecified congenital cystic kidney disease documented in this encounter [facility] note* Diagnosis Pre-operative examination- Primary Preoperative examination, unspecified Colon cancer screening Special screening for malignant neoplasms, colon Gastroesophageal reflux disease, unspecified whether esophagitis present Ascending aorta dilatation (HCC) Thoracic aortic ectasia Chronic anxiety Anxiety state, unspecified Ex-smoker Personal history of tobacco use, presenting hazards to health Fibromyalgia Mylagia and myositis, unspecified Hydrocephalus, adult (HCC) Obstructive hydrocephalus HUBER (obstructive sleep apnea) Obstructive sleep apnea (adult) (pediatric) Post-COVID chronic dyspnea Lung nodule Solitary pulmonary nodule Moderate aortic regurgitation Aortic valve disorders Renal cyst Unspecified congenital cystic kidney disease Screening mammogram, encounter for documented in this encounter [facility] note* Diagnosis Pre-operative examination- Primary Preoperative examination, unspecified Colon cancer screening Special screening for malignant neoplasms, colon Gastroesophageal reflux disease, unspecified whether esophagitis present Ascending aorta dilatation (HCC) Thoracic aortic ectasia Chronic anxiety Anxiety state, unspecified Ex-smoker Personal history of tobacco use, presenting hazards to health Fibromyalgia Mylagia and myositis, unspecified Hydrocephalus, adult (HCC) Obstructive hydrocephalus HUBER (obstructive sleep apnea) Obstructive sleep apnea (adult) (pediatric) Post-COVID chronic dyspnea Lung nodule Solitary pulmonary nodule Moderate aortic regurgitation Aortic valve disorders Renal cyst Unspecified congenital cystic kidney disease Abnormal mammogram- Primary Abnormal mammogram, unspecified documented in this encounter [facility] note* Diagnosis Pre-operative examination- Primary Preoperative examination, unspecified Colon cancer screening Special screening for malignant neoplasms, colon Gastroesophageal reflux disease, unspecified whether esophagitis present Ascending aorta dilatation (HCC) Thoracic aortic ectasia Chronic anxiety Anxiety state, unspecified Ex-smoker Personal history of tobacco use, presenting hazards to health Fibromyalgia Mylagia and myositis, unspecified Hydrocephalus, adult (HCC) Obstructive hydrocephalus HUBER (obstructive sleep apnea) Obstructive sleep apnea (adult) (pediatric) Post-COVID chronic dyspnea Lung nodule Solitary pulmonary nodule Moderate aortic regurgitation Aortic valve disorders Renal cyst Unspecified congenital cystic kidney disease Abnormal mammogram- Primary Abnormal mammogram, unspecified documented in this encounter [facility] note* Diagnosis Pre-operative examination- Primary Preoperative examination, unspecified Colon cancer screening Special screening for malignant neoplasms, colon Gastroesophageal reflux disease, unspecified whether esophagitis present Ascending aorta dilatation (HCC) Thoracic aortic ectasia Chronic anxiety Anxiety state, unspecified Ex-smoker Personal history of tobacco use, presenting hazards to health Fibromyalgia Mylagia and myositis, unspecified Hydrocephalus, adult (HCC) Obstructive hydrocephalus HUBER (obstructive sleep apnea) Obstructive sleep apnea (adult) (pediatric) Post-COVID chronic dyspnea Lung nodule Solitary pulmonary nodule Moderate aortic regurgitation Aortic valve disorders Renal cyst Unspecified congenital cystic kidney disease Gross hematuria documented in this encounter [facility] note* Diagnosis Pre-operative examination- Primary Preoperative examination, unspecified Colon cancer screening Special screening for malignant neoplasms, colon Gastroesophageal reflux disease, unspecified whether esophagitis present Ascending aorta dilatation (HCC) Thoracic aortic ectasia Chronic anxiety Anxiety state, unspecified Ex-smoker Personal history of tobacco use, presenting hazards to health Fibromyalgia Mylagia and myositis, unspecified Hydrocephalus, adult (HCC) Obstructive hydrocephalus HUBER (obstructive sleep apnea) Obstructive sleep apnea (adult) (pediatric) Post-COVID chronic dyspnea Lung nodule Solitary pulmonary nodule Moderate aortic regurgitation Aortic valve disorders Renal cyst Unspecified congenital cystic kidney disease Gross hematuria- Primary documented in this encounter [facility] note* Diagnosis Pre-operative examination- Primary Preoperative examination, unspecified Colon cancer screening Special screening for malignant neoplasms, colon Gastroesophageal reflux disease, unspecified whether esophagitis present Ascending aorta dilatation (HCC) Thoracic aortic ectasia Chronic anxiety Anxiety state, unspecified Ex-smoker Personal history of tobacco use, presenting hazards to health Fibromyalgia Mylagia and myositis, unspecified Hydrocephalus, adult (HCC) Obstructive hydrocephalus HUBER (obstructive sleep apnea) Obstructive sleep apnea (adult) (pediatric) Post-COVID chronic dyspnea Lung nodule Solitary pulmonary nodule Moderate aortic regurgitation Aortic valve disorders Renal cyst Unspecified congenital cystic kidney disease Insomnia, unspecified type- Primary RLS (restless legs syndrome) Restless legs syndrome (RLS) Long-term current use of benzodiazepine HUBER on CPAP Obstructive sleep apnea (adult) (pediatric) Hypoxia Hypoxemia [facility]* Diagnosis Pre-operative examination- Primary Preoperative examination, unspecified Colon cancer screening Special screening for malignant neoplasms, colon Gastroesophageal reflux disease, unspecified whether esophagitis present Ascending aorta dilatation (HCC) Thoracic aortic ectasia Chronic anxiety Anxiety state, unspecified Ex-smoker Personal history of tobacco use, presenting hazards to health Fibromyalgia Mylagia and myositis, unspecified Hydrocephalus, adult (HCC) Obstructive hydrocephalus HUBER (obstructive sleep apnea) Obstructive sleep apnea (adult) (pediatric) Post-COVID chronic dyspnea Lung nodule Solitary pulmonary nodule Moderate aortic regurgitation Aortic valve disorders Renal cyst Unspecified congenital cystic kidney disease Bacterial sinusitis- Primary Unspecified sinusitis (chronic) Thoracic spine pain Pain in thoracic spine Rib pain on right side Chest pain, unspecified Trauma Injury, other and unspecified, unspecified site Rib pain on right side Chest pain, unspecified Trauma Injury, other and unspecified, unspecified site Thoracic spine pain Pain in thoracic spine documented in this encounter [facility] note* Diagnosis Pre-operative examination- Primary Preoperative examination, unspecified Colon cancer screening Special screening for malignant neoplasms, colon Gastroesophageal reflux disease, unspecified whether esophagitis present Ascending aorta dilatation (HCC) Thoracic aortic ectasia Chronic anxiety Anxiety state, unspecified Ex-smoker Personal history of tobacco use, presenting hazards to health Fibromyalgia Mylagia and myositis, unspecified Hydrocephalus, adult (HCC) Obstructive hydrocephalus HUBER (obstructive sleep apnea) Obstructive sleep apnea (adult) (pediatric) Post-COVID chronic dyspnea Lung nodule Solitary pulmonary nodule Moderate aortic regurgitation Aortic valve disorders Renal cyst Unspecified congenital cystic kidney disease Rib pain on right side Chest pain, unspecified Trauma Injury, other and unspecified, unspecified site Thoracic spine pain Pain in thoracic spine documented in this encounter [facility] note* Diagnosis Pre-operative examination- Primary Preoperative examination, unspecified Colon cancer screening Special screening for malignant neoplasms, colon Gastroesophageal reflux disease, unspecified whether esophagitis present Ascending aorta dilatation (HCC) Thoracic aortic ectasia Chronic anxiety Anxiety state, unspecified Ex-smoker Personal history of tobacco use, presenting hazards to health Fibromyalgia Mylagia and myositis, unspecified Hydrocephalus, adult (HCC) Obstructive hydrocephalus HUBER (obstructive sleep apnea) Obstructive sleep apnea (adult) (pediatric) Post-COVID chronic dyspnea Lung nodule Solitary pulmonary nodule Moderate aortic regurgitation Aortic valve disorders Renal cyst 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 Other diseases of lung, not elsewhere classified Acute sinusitis, recurrence not specified, unspecified location [facility] Diagnosis Pre-operative examination- Primary Preoperative examination, unspecified Colon cancer screening Special screening for malignant neoplasms, colon Gastroesophageal reflux disease, unspecified whether esophagitis present Ascending aorta dilatation (HCC) Thoracic aortic ectasia Chronic anxiety Anxiety state, unspecified Ex-smoker Personal history of tobacco use, presenting hazards to health Fibromyalgia Mylagia and myositis, unspecified Hydrocephalus, adult (HCC) Obstructive hydrocephalus HUBER (obstructive sleep apnea) Obstructive sleep apnea (adult) (pediatric) Post-COVID chronic dyspnea Lung nodule Solitary pulmonary nodule Moderate aortic regurgitation Aortic valve disorders Renal cyst Unspecified congenital cystic kidney disease Vaginal discharge- Primary Leukorrhea, not specified as infective Vaginal odor Unspecified symptom associated with female genital organs Vaginal high risk human papillomavirus (HPV) DNA test positive documented in this encounter [facility] note* Diagnosis Pre-operative examination- Primary Preoperative examination, unspecified Colon cancer screening Special screening for malignant neoplasms, colon Gastroesophageal reflux disease, unspecified whether esophagitis present Ascending aorta dilatation (HCC) Thoracic aortic ectasia Chronic anxiety Anxiety state, unspecified Ex-smoker Personal history of tobacco use, presenting hazards to health Fibromyalgia Mylagia and myositis, unspecified Hydrocephalus, adult (HCC) Obstructive hydrocephalus HUBER (obstructive sleep apnea) Obstructive sleep apnea (adult) (pediatric) Post-COVID chronic dyspnea Lung nodule Solitary pulmonary nodule Moderate aortic regurgitation Aortic valve disorders Renal cyst Unspecified congenital cystic kidney disease Bacterial sinusitis- Primary Unspecified sinusitis (chronic) documented in this encounter [facility] note* Diagnosis Pre-operative examination- Primary Preoperative examination, unspecified Colon cancer screening Special screening for malignant neoplasms, colon Gastroesophageal reflux disease, unspecified whether esophagitis present Ascending aorta dilatation (HCC) Thoracic aortic ectasia Chronic anxiety Anxiety state, unspecified Ex-smoker Personal history of tobacco use, presenting hazards to health Fibromyalgia Mylagia and myositis, unspecified Hydrocephalus, adult (HCC) Obstructive hydrocephalus HUBER (obstructive sleep apnea) Obstructive sleep apnea (adult) (pediatric) Post-COVID chronic dyspnea Lung nodule Solitary pulmonary nodule Moderate aortic regurgitation Aortic valve disorders Renal cyst Unspecified congenital cystic kidney disease Vaginal high risk human papillomavirus (HPV) DNA test positive- Primary [facility]* Diagnosis Pre-operative examination- Primary Preoperative examination, unspecified Colon cancer screening Special screening for malignant neoplasms, colon Gastroesophageal reflux disease, unspecified whether esophagitis present Ascending aorta dilatation (HCC) Thoracic aortic ectasia Chronic anxiety Anxiety state, unspecified Ex-smoker Personal history of tobacco use, presenting hazards to health Fibromyalgia Mylagia and myositis, unspecified Hydrocephalus, adult (HCC) Obstructive hydrocephalus HUBER (obstructive sleep apnea) Obstructive sleep apnea (adult) (pediatric) Post-COVID chronic dyspnea Lung nodule Solitary pulmonary nodule Moderate aortic regurgitation Aortic valve disorders Renal cyst Unspecified congenital cystic kidney disease Productive cough- Primary Cough documented in this encounter [facility] note* Diagnosis Pre-operative examination- Primary Preoperative examination, unspecified Colon cancer screening Special screening for malignant neoplasms, colon Gastroesophageal reflux disease, unspecified whether esophagitis present Ascending aorta dilatation (HCC) Thoracic aortic ectasia Chronic anxiety Anxiety state, unspecified Ex-smoker Personal history of tobacco use, presenting hazards to health Fibromyalgia Mylagia and myositis, unspecified Hydrocephalus, adult (HCC) Obstructive hydrocephalus HUBER (obstructive sleep apnea) Obstructive sleep apnea (adult) (pediatric) Post-COVID chronic dyspnea Lung nodule Solitary pulmonary nodule Moderate aortic regurgitation Aortic valve disorders Renal cyst Unspecified congenital cystic kidney disease Encounter for Medicare annual wellness exam- Primary Routine general medical examination at a health care facility Advance directive discussed with patient Other specified counseling Hypertension, essential Unspecified essential hypertension Leg swelling Swelling of limb Vitamin D deficiency Unspecified vitamin D deficiency Hydrocephalus, adult (HCC) Obstructive hydrocephalus Other migraine without status migrainosus, not intractable Fibromyalgia Mylagia and myositis, unspecified Ascending aorta dilatation (HCC) Thoracic aortic ectasia Mixed hyperlipidemia Thoracic aortic aneurysm without rupture, unspecified part (HCC) Fatty liver Other chronic nonalcoholic liver disease Gastroesophageal reflux disease without esophagitis Esophageal reflux Elevated hemoglobin A1c Other abnormal blood chemistry Situational mixed anxiety and depressive disorder Adjustment disorder with mixed anxiety and depressed mood Rheumatoid arthritis, involving unspecified site, unspecified whether rheumatoid factor present (HCC) documented in this encounter [facility] note* Diagnosis Pre-operative examination- Primary Preoperative examination, unspecified Colon cancer screening Special screening for malignant neoplasms, colon Gastroesophageal reflux disease, unspecified whether esophagitis present Ascending aorta dilatation (HCC) Thoracic aortic ectasia Chronic anxiety Anxiety state, unspecified Ex-smoker Personal history of tobacco use, presenting hazards to health Fibromyalgia Mylagia and myositis, unspecified Hydrocephalus, adult (HCC) Obstructive hydrocephalus HUBER (obstructive sleep apnea) Obstructive sleep apnea (adult) (pediatric) Post-COVID chronic dyspnea Lung nodule Solitary pulmonary nodule Moderate aortic regurgitation Aortic valve disorders Renal cyst Unspecified congenital cystic kidney disease Productive cough Cough documented in this encounter [facility] note* Diagnosis Pre-operative examination- Primary Preoperative examination, unspecified Colon cancer screening Special screening for malignant neoplasms, colon Gastroesophageal reflux disease, unspecified whether esophagitis present Ascending aorta dilatation (HCC) Thoracic aortic ectasia Chronic anxiety Anxiety state, unspecified Ex-smoker Personal history of tobacco use, presenting hazards to health Fibromyalgia Mylagia and myositis, unspecified Hydrocephalus, adult (HCC) Obstructive hydrocephalus HUBER (obstructive sleep apnea) Obstructive sleep apnea (adult) (pediatric) Post-COVID chronic dyspnea Lung nodule Solitary pulmonary nodule Moderate aortic regurgitation Aortic valve disorders Renal cyst Unspecified congenital cystic kidney disease Abnormal mammogram Abnormal mammogram, unspecified documented in this encounter [facility] note* Diagnosis Pre-operative examination- Primary Preoperative examination, unspecified Colon cancer screening Special screening for malignant neoplasms, colon Gastroesophageal reflux disease, unspecified whether esophagitis present Ascending aorta dilatation (HCC) Thoracic aortic ectasia Chronic anxiety Anxiety state, unspecified Ex-smoker Personal history of tobacco use, presenting hazards to health Fibromyalgia Mylagia and myositis, unspecified Hydrocephalus, adult (HCC) Obstructive hydrocephalus HUBER (obstructive sleep apnea) Obstructive sleep apnea (adult) (pediatric) Post-COVID chronic dyspnea Lung nodule Solitary pulmonary nodule Moderate aortic regurgitation Aortic valve disorders Renal cyst Unspecified congenital cystic kidney disease Abnormal mammogram Abnormal mammogram, unspecified documented in this encounter [facility] note* Diagnosis Pre-operative examination- Primary Preoperative examination, unspecified Colon cancer screening Special screening for malignant neoplasms, colon Gastroesophageal reflux disease, unspecified whether esophagitis present Ascending aorta dilatation (HCC) Thoracic aortic ectasia Chronic anxiety Anxiety state, unspecified Ex-smoker Personal history of tobacco use, presenting hazards to health Fibromyalgia Mylagia and myositis, unspecified Hydrocephalus, adult (HCC) Obstructive hydrocephalus HUBER (obstructive sleep apnea) Obstructive sleep apnea (adult) (pediatric) Post-COVID chronic dyspnea Lung nodule Solitary pulmonary nodule Moderate aortic regurgitation Aortic valve disorders Renal cyst Unspecified congenital cystic kidney disease Vaginal high risk human papillomavirus (HPV) DNA test positive- Primary [facility]* Diagnosis Pre-operative examination- Primary Preoperative examination, unspecified Colon cancer screening Special screening for malignant neoplasms, colon Gastroesophageal reflux disease, unspecified whether esophagitis present Ascending aorta dilatation (HCC) Thoracic aortic ectasia Chronic anxiety Anxiety state, unspecified Ex-smoker Personal history of tobacco use, presenting hazards to health Fibromyalgia Mylagia and myositis, unspecified Hydrocephalus, adult (HCC) Obstructive hydrocephalus HUBER (obstructive sleep apnea) Obstructive sleep apnea (adult) (pediatric) Post-COVID chronic dyspnea Lung nodule Solitary pulmonary nodule Moderate aortic regurgitation Aortic valve disorders Renal cyst Unspecified congenital cystic kidney disease Gross hematuria- Primary Urgency of urination Urge incontinence Renal cyst Unspecified congenital cystic kidney disease [facility]* Diagnosis Pre-operative examination- Primary Preoperative examination, unspecified Colon cancer screening Special screening for malignant neoplasms, colon Gastroesophageal reflux disease, unspecified whether esophagitis present Ascending aorta dilatation (HCC) Thoracic aortic ectasia Chronic anxiety Anxiety state, unspecified Ex-smoker Personal history of tobacco use, presenting hazards to health Fibromyalgia Mylagia and myositis, unspecified Hydrocephalus, adult (HCC) Obstructive hydrocephalus HUBER (obstructive sleep apnea) Obstructive sleep apnea (adult) (pediatric) Post-COVID chronic dyspnea Lung nodule Solitary pulmonary nodule Moderate aortic regurgitation Aortic valve disorders Renal cyst Unspecified congenital cystic kidney disease Gross hematuria- Primary [facility]* Diagnosis Pre-operative examination- Primary Preoperative examination, unspecified Colon cancer screening Special screening for malignant neoplasms, colon Gastroesophageal reflux disease, unspecified whether esophagitis present Ascending aorta dilatation Thoracic aortic ectasia Chronic anxiety Anxiety state, unspecified Ex-smoker Personal history of tobacco use, presenting hazards to health Fibromyalgia Mylagia and myositis, unspecified Hydrocephalus, adult (HCC) Obstructive hydrocephalus HUBER (obstructive sleep apnea) Obstructive sleep apnea (adult) (pediatric) Post-COVID chronic dyspnea Lung nodule Solitary pulmonary nodule Moderate aortic regurgitation Aortic valve disorders Renal cyst Unspecified congenital cystic kidney disease Urgency of urination- Primary Vaginal discharge Leukorrhea, not specified as infective [facility] Diagnosis Pre-operative examination- Primary Preoperative examination, unspecified Colon cancer screening Special screening for malignant neoplasms, colon Gastroesophageal reflux disease, unspecified whether esophagitis present Ascending aorta dilatation Thoracic aortic ectasia Chronic anxiety Anxiety state, unspecified Ex-smoker Personal history of tobacco use, presenting hazards to health Fibromyalgia Mylagia and myositis, unspecified Hydrocephalus, adult (HCC) Obstructive hydrocephalus HUBER (obstructive sleep apnea) Obstructive sleep apnea (adult) (pediatric) Post-COVID chronic dyspnea Lung nodule Solitary pulmonary nodule Moderate aortic regurgitation Aortic valve disorders Renal cyst Unspecified congenital cystic kidney disease RLS (restless legs syndrome) Restless legs syndrome (RLS) documented in this encounter [facility] note* Diagnosis Pre-operative examination- Primary Preoperative examination, unspecified Colon cancer screening Special screening for malignant neoplasms, colon Gastroesophageal reflux disease, unspecified whether esophagitis present Ascending aorta dilatation Thoracic aortic ectasia Chronic anxiety Anxiety state, unspecified Ex-smoker Personal history of tobacco use, presenting hazards to health Fibromyalgia Mylagia and myositis, unspecified Hydrocephalus, adult (HCC) Obstructive hydrocephalus HUBER (obstructive sleep apnea) Obstructive sleep apnea (adult) (pediatric) Post-COVID chronic dyspnea Lung nodule Solitary pulmonary nodule Moderate aortic regurgitation Aortic valve disorders Renal cyst Unspecified congenital cystic kidney disease Vaginal odor- Primary Unspecified symptom associated with female genital organs Vaginal discharge Leukorrhea, not specified as infective Dysuria Postmenopausal atrophic vaginitis documented in this encounter [facility] note* Diagnosis Pre-operative examination- Primary Preoperative examination, unspecified Colon cancer screening Special screening for malignant neoplasms, colon Gastroesophageal reflux disease, unspecified whether esophagitis present Ascending aorta dilatation Thoracic aortic ectasia Chronic anxiety Anxiety state, unspecified Ex-smoker Personal history of tobacco use, presenting hazards to health Fibromyalgia Mylagia and myositis, unspecified Hydrocephalus, adult (HCC) Obstructive hydrocephalus HUBER (obstructive sleep apnea) Obstructive sleep apnea (adult) (pediatric) Post-COVID chronic dyspnea Lung nodule Solitary pulmonary nodule Moderate aortic regurgitation Aortic valve disorders Renal cyst 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 Other diseases of lung, not elsewhere classified Post-COVID chronic dyspnea Post-nasal drip Postnasal drip Nocturnal hypoxemia Hypoxemia documented in this encounter [facility] note* Diagnosis Pre-operative examination- Primary Preoperative examination, unspecified Colon cancer screening Special screening for malignant neoplasms, colon Gastroesophageal reflux disease, unspecified whether esophagitis present Ascending aorta dilatation Thoracic aortic ectasia Chronic anxiety Anxiety state, unspecified Ex-smoker Personal history of tobacco use, presenting hazards to health Fibromyalgia Mylagia and myositis, unspecified Hydrocephalus, adult (HCC) Obstructive hydrocephalus HUBER (obstructive sleep apnea) Obstructive sleep apnea (adult) (pediatric) Post-COVID chronic dyspnea Lung nodule Solitary pulmonary nodule Moderate aortic regurgitation Aortic valve disorders Renal cyst Unspecified congenital cystic kidney disease Chronic insomnia- Primary Insomnia, unspecified RLS (restless legs syndrome) Restless legs syndrome (RLS) HUBER on CPAP Obstructive sleep apnea (adult) (pediatric) Nocturnal hypoxia Hypoxemia Requires supplemental oxygen Dependence on supplemental oxygen [facility] Diagnosis Pre-operative examination- Primary Preoperative examination, unspecified Colon cancer screening Special screening for malignant neoplasms, colon Gastroesophageal reflux disease, unspecified whether esophagitis present Ascending aorta dilatation Thoracic aortic ectasia Chronic anxiety Anxiety state, unspecified Ex-smoker Personal history of tobacco use, presenting hazards to health Fibromyalgia Mylagia and myositis, unspecified Hydrocephalus, adult (HCC) Obstructive hydrocephalus HUBER (obstructive sleep apnea) Obstructive sleep apnea (adult) (pediatric) Post-COVID chronic dyspnea Lung nodule Solitary pulmonary nodule Moderate aortic regurgitation Aortic valve disorders Renal cyst Unspecified congenital cystic kidney disease URI with cough and congestion- Primary [facility]* Diagnosis Pre-operative examination- Primary Preoperative examination, unspecified Colon cancer screening Special screening for malignant neoplasms, colon Gastroesophageal reflux disease, unspecified whether esophagitis present Ascending aorta dilatation Thoracic aortic ectasia Chronic anxiety Anxiety state, unspecified Ex-smoker Personal history of tobacco use, presenting hazards to health Fibromyalgia Mylagia and myositis, unspecified Hydrocephalus, adult (HCC) Obstructive hydrocephalus HUBER (obstructive sleep apnea) Obstructive sleep apnea (adult) (pediatric) Post-COVID chronic dyspnea Lung nodule Solitary pulmonary nodule Moderate aortic regurgitation Aortic valve disorders Renal cyst Unspecified congenital cystic kidney disease Hypertension, essential- Primary Unspecified essential hypertension Mixed hyperlipidemia Gastroesophageal reflux disease without esophagitis Esophageal reflux Elevated hemoglobin A1c Other abnormal blood chemistry Ascending aorta dilatation Thoracic aortic ectasia Moderate aortic regurgitation Aortic valve disorders Nonrheumatic mitral valve disorder, unspecified Thoracic aortic aneurysm without rupture, unspecified part Hydrocephalus, adult ([facility]) Obstructive hydrocephalus Other migraine without status migrainosus, not intractable Post-COVID chronic dyspnea Rheumatoid arthritis, involving unspecified site, unspecified whether rheumatoid factor present ([facility]) Situational mixed anxiety and depressive disorder Adjustment disorder with mixed anxiety and depressed mood Chronic anxiety Anxiety state, unspecified Essential tremor Essential and other specified forms of tremor Fibromyalgia Mylagia and myositis, unspecified Obesity, Class I, BMI 30-34.9 Obesity, unspecified Primary insomnia Persistent disorder of initiating or maintaining sleep RLS (restless legs syndrome) Restless legs syndrome (RLS) Vitamin D deficiency Unspecified vitamin D deficiency Bilateral leg edema Edema Fatty liver Other chronic nonalcoholic liver disease Bacterial sinusitis Unspecified sinusitis (chronic) Medication management Encounter for long-term (current) use of other medications [facility] Diagnosis Pre-operative examination- Primary Preoperative examination, unspecified Colon cancer screening Special screening for malignant neoplasms, colon Gastroesophageal reflux disease, unspecified whether esophagitis present Ascending aorta dilatation Thoracic aortic ectasia Chronic anxiety Anxiety state, unspecified Ex-smoker Personal history of tobacco use, presenting hazards to health Fibromyalgia Mylagia and myositis, unspecified Hydrocephalus, adult (HCC) Obstructive hydrocephalus HUBER (obstructive sleep apnea) Obstructive sleep apnea (adult) (pediatric) Post-COVID chronic dyspnea Lung nodule Solitary pulmonary nodule Moderate aortic regurgitation Aortic valve disorders Renal cyst Unspecified congenital cystic kidney disease Renal cyst Unspecified congenital cystic kidney disease [facility] Diagnosis Pre-operative examination- Primary Preoperative examination, unspecified Colon cancer screening Special screening for malignant neoplasms, colon Gastroesophageal reflux disease, unspecified whether esophagitis present Ascending aorta dilatation Thoracic aortic ectasia Chronic anxiety Anxiety state, unspecified Ex-smoker Personal history of tobacco use, presenting hazards to health Fibromyalgia Mylagia and myositis, unspecified Hydrocephalus, adult (HCC) Obstructive hydrocephalus HUBER (obstructive sleep apnea) Obstructive sleep apnea (adult) (pediatric) Post-COVID chronic dyspnea Lung nodule Solitary pulmonary nodule Moderate aortic regurgitation Aortic valve disorders Renal cyst Unspecified congenital cystic kidney disease Urinary frequency- Primary [facility]* Diagnosis Pre-operative examination- Primary Preoperative examination, unspecified Colon cancer screening Special screening for malignant neoplasms, colon Gastroesophageal reflux disease, unspecified whether esophagitis present Ascending aorta dilatation Thoracic aortic ectasia Chronic anxiety Anxiety state, unspecified Ex-smoker Personal history of tobacco use, presenting hazards to health Fibromyalgia Mylagia and myositis, unspecified Hydrocephalus, adult (HCC) Obstructive hydrocephalus HUBER (obstructive sleep apnea) Obstructive sleep apnea (adult) (pediatric) Post-COVID chronic dyspnea Lung nodule Solitary pulmonary nodule Moderate aortic regurgitation Aortic valve disorders Renal cyst Unspecified congenital cystic kidney disease Urinary tract infection with hematuria, site unspecified- Primary Urgency of urination Screening for genitourinary condition Screening for other and unspecified genitourinary condition documented in this encounter [facility] course Narrative No data available for this section [facility] Hospital Discharge instructions Additional Instructions Plenty of fluids and rest. Alternate Tylenol and Motrin for fever. Use your oxygen all the time until you are feeling better. Follow-up with your doctor if not improving. Return if worse.[facility] Work Phone: Hospital Discharge instructions Additional Instructions Implant Used?: Yes [facility] Work Phone: Hospital Discharge instructions No data available for this section [facility] Progress note No data available for this section [facility] Reason for referral (narrative)* Outpatient Procedure (Routine) - Pending Review Specialty Diagnoses / Procedures Referred By Nico linton Referred To Contact [facility] Diagnoses Diarrhea of presumed infectious origin Procedures COLONOSCOPY DIAGNOSTIC COLONOSCOPY FLX DX W/COLLJ SPEC WHEN PFRMD Carmine Montez MD [address] [place] [address] [facility] [address] [place] [address] Referral ID Status Reason Start Date Expiration Date Visits Requested Visits Authorized [id number] Pending Review Auto-Generat ed Referral 12/15/2021 12/15/2022 1 1 * Outpatient Procedure (Routine) - Pending Review Specialty Diagnoses / Procedures Referred By Nico linton Referred To Contact [facility] Diagnoses Diarrhea of presumed infectious origin Procedures EGD DIAGNOSTIC ESOPHAGOGASTRODUODENOSC OPY TRANSORAL DIAGNOSTIC Carmine Montez MD [address] [place] [address] [facility] [address] [place] [address] Referral ID Status Reason Start Date Expiration Date Visits Requested Visits Authorized [id number] Pending Review Auto-Generat ed Referral 12/15/2021 12/15/2022 1 1 [facility] Diagnostic Procedure Only (Routine) - Authorized Specialty Diagnoses / Procedures Referred By Nico t Referred To Contact [facility] Diagnoses Lump of skin of lower extremity, right Procedures US EXTREMITY MASS/FLUID COLLECTION RT Edwina Khoury PA-C [address] [place] [address] [facility] Referral ID Status Reason Start Date Expiration Date Visits Requested Visits Authorized [id number] Authorized Auto-Generat ed Referral 02/01/2022 03/03/2023 1 1 [facility] (narrative)* Diagnostic Procedure Only (Routine) - Pending Review Specialty Diagnoses / Procedures Referred By Nico linton Referred To Contact [facility] Diagnoses Encounter for screening mammogram for breast cancer Procedures SANJUANA SCREENING SCREENING MAMMOGRAPHY BI 2-VIEW BREAST INC CAD Ganga Nunez MD [address] [place] [address] [facility] [address] [place] [address] Referral ID Status Reason Start Date Expiration Date Visits Requested Visits Authorized [id number] Pending Review Auto-Generat ed Referral 04/06/2022 05/05/2023 1 1 [facility] (narrative)* Diagnostic Procedure Only (Routine) - Closed Specialty Diagnoses / Procedures Referred By Nico t Referred To Contact [facility] Diagnoses Encounter for screening mammogram for breast cancer Procedures SANJUANA SCREENING SCREENING MAMMOGRAPHY BI 2-VIEW BREAST INC CAD Ganga Nunez MD [address] [place] [address] [facility] [address] [place] [address] Referral ID Status Reason Start Date Expiration Date V isits Requested Visits Authorized [id number] Closed Auto-Generate d Referral 04/06/2022 05/05/2023 1 1 [facility] (narrative)* Outpatient Procedure (Routine) - Closed Specialty Diagnoses / Procedures Referred By Nico linton Referred To Contact [facility] Diagnoses Diarrhea of presumed infectious origin Procedures COLONOSCOPY DIAGNOSTIC COLONOSCOPY FLX DX W/COLLJ SPEC WHEN PFRMD Carmine Montez MD [address] [place] [address] [address] Referral ID Status Reason Start Date Expiration Date V isits Requested Visits Authorized [id number] Closed Auto-Generate d Referral 12/15/2021 12/15/2022 1 1 * Outpatient Procedure (Routine) - Closed Specialty Diagnoses / Procedures Referred By Nico linton Referred To Contact [facility] Diagnoses Diarrhea of presumed infectious origin Procedures EGD DIAGNOSTIC ESOPHAGOGASTRODUODENOSC OPY TRANSORAL DIAGNOSTIC Carmine Montez MD [address] [place] [address] 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) Procedures XR FOOT GENERAL 3V AP/LAT/OBL RIGHT RADEX FOOT COMPLETE MINIMUM 3 VIEWS Reginaldo Burnett MD [address] [place] [address] [facility] Referral ID Status Reason Start Date Expiration Date Visits Requested Visits Authorized [id number] Pending Review Auto-Generat ed Referral 04/04/2023 05/03/2024 1 1 * Diagnostic Procedure Only (Routine) - Pending Review Specialty Diagnoses / Procedures Referred By Contac t Referred To Contact XR IMAGING Diagnoses 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) Procedures XR FOOT GENERAL 3V AP/LAT/OBL LEFT RADEX FOOT COMPLETE MINIMUM 3 VIEWS Reginaldo Burnett MD [address] [place] [address] [facility] Referral ID Status Reason Start Date Expiration Date Visits Requested Visits Authorized [id number] Pending Review Auto-Generat ed Referral 04/04/2023 05/03/2024 1 1 * Diagnostic Procedure Only (Routine) - Pending Review Specialty Diagnoses / Procedures Referred By Contac t Referred To Contact XR IMAGING Diagnoses 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) Procedures XR HAND GENERAL 3V PA/LAT/OBL RIGHT RADEX HAND MINIMUM 3 VIEWS Reginaldo Burnett MD [address] [place] [address] [facility] Referral ID Status Reason Start Date Expiration Date Visits Requested Visits Authorized [id number] Pending Review Auto-Generat ed Referral 04/04/2023 05/03/2024 1 1 * Diagnostic Procedure Only (Routine) - Pending Review Specialty Diagnoses / Procedures Referred By Contac t Referred To Contact XR IMAGING Diagnoses 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) Procedures XR HAND GENERAL 3V PA/LAT/OBL LEFT RADEX HAND MINIMUM 3 VIEWS Reginaldo Burnett MD [address] [place] [address] X[facility] Referral ID Status Reason Start Date Expiration Date Visits Requested Visits Authorized [id number] Pending Review Auto-Generat ed Referral 04/04/2023 05/03/2024 1 1 [facility] (n[facility]ative)* Diagnostic Procedure Only (Routine) - Authorized Specialty Diagnoses / Procedures Referred By Contac t Referred To Contact [facility] Diagnoses Encounter for screening mammogram for breast cancer Procedures SANJUANA SCREENING SCREENING MAMMOGRAPHY BI 2-VIEW BREAST INC CAD Ganga Nunez MD [address] [place] [address] [facility] [address] [place] [address] Referral ID Status Reason Start Date Expiration Date Visits Requested Visits Authorized [id number] Authorized Auto-Generat ed Referral 05/30/2023 06/28/2024 1 1 [facility] (narrative)* Diagnostic Procedure Only (Routine) - Closed Specialty Diagnoses / Procedures Referred By Nico t Referred To Contact [facility] Diagnoses Encounter for screening mammogram for breast cancer Procedures SANJUANA SCREENING SCREENING MAMMOGRAPHY BI 2-VIEW BREAST INC CAD Ganga Nunez MD [address] [place] [address] [facility] [address] [place] [address] Referral ID Status Reason Start Date Expiration Date V isits Requested Visits Authorized [id number] Closed Auto-Generate d Referral 05/30/2023 06/28/2024 1 1 [facility] (narrative)* Diagnostic Procedure Only (Routine) - Closed Specialty Diagnoses / Procedures Referred By Contac t Referred To Contact XR IMAGING Diagnoses Thumb pain, left Procedures XR DIGIT GENERAL 3V FRONTAL/LAT/OBL LEFT RADEX FINGR MINIMUM 2 VIEWS Ganga Nunez MD [facility] [place] [address] [place] [address] Referral ID Status Reason Start Date Expiration Date V isits Requested Visits Authorized [id number] Closed Auto-Generate d Referral 10/10/2023 11/08/2024 1 1 * Outpatient Procedure (Routine) - Pending Review Specialty Diagnoses / Procedures Referred By Contac t Referred To Contact [facility] Diagnoses Pre-op examination Hypertension, essential Procedures ECG COMPLETE ECG ROUTINE ECG W/LEAST 12 LDS W/I&R Ganga Nunez MD [address] [place] [address] [facility] [address] [place] [address] Referral ID Status Reason Start Date Expiration Date Visits Requested Visits Authorized [id number] Pending Review Auto-Generat ed Referral 10/10/2023 10/09/2024 1 1 [facility] (narrative)* Outpatient Procedure (Routine) - Pending Review Specialty Diagnoses / Procedures Referred By Contac t Referred To Contact [facility] Diagnoses Hypertension, essential Pre-op examination Procedures ECG COMPLETE ECG ROUTINE ECG W/LEAST 12 LDS W/I&R Ganga Nunez MD [address] [place] [address] [facility] [address] [address] Referral ID Status Reason Start Date Expiration Date Visits Requested Visits Authorized [id number] Pending Review Auto-Generat ed Referral 02/14/2024 02/13/2025 1 1 [facility] (narrative)* Diagnostic Procedure Only (Routine) - Closed Specialty Diagnoses / Procedures Referred By Contac t Referred To Contact XR IMAGING Diagnoses Foot pain, left Procedures XR FOOT GENERAL 3V AP/LAT/OBL LEFT RADEX FOOT COMPLETE MINIMUM 3 VIEWS Edwina Khoury PA-C [address] [place] [address] [place] [address] Referral ID Status Reason Start Date Expiration Date V isits Requested Visits Authorized [id number] Closed Auto-Generate d Referral 03/13/2024 04/12/2025 1 1 * Consult, Test, Treat (Routine) - Authorized Specialty Diagnoses / Procedures Referred By Contac t Referred To Contact [facility] Diagnoses Spinal stenosis, lumbar region, without neurogenic claudication Procedures [facility]/OUTPATIENT NEW HIGH MDM 60 MINUTES Edwina Khoury PA-C [address] [place] [address] Referral ID Status Reason Start Date Expiration Date Visits Requested Visits Authorized [id number] Authorized PCP Requested Referral 03/13/2024 03/13/2025 1 1 * Diagnostic Procedure Only (Routine) - New Request Specialty Diagnoses / Procedures Referred By Contac t Referred To Contact [facility] Diagnoses Screening mammogram, encounter for Procedures SANJUANA SCREENING W GENNA SCREENING DIGITAL BREAST TOMOSYNTHESIS BI SCREENING MAMMOGRAPHY BI 2-VIEW BREAST INC CAD Edwina Khoury PA-C [address] [place] [address] [facility] [address] [place] [address] Referral ID Status Reason Start Date Expiration Date Visits Requested Visits Authorized [id number] New Request Auto-Generat ed Referral 03/13/2024 04/12/2025 1 1 [facility] (narrative)* Diagnostic Procedure Only (Routine) - Closed Specialty Diagnoses / Procedures Referred By Contac t Referred To Contact X[facility] IMAG[facility] Diagnoses Foot pain, left Procedures XR FOOT GENERAL 3V AP/LAT/OBL LEFT RADEX FOOT COMPLETE MINIMUM 3 VIEWS Edwina Khoury PA-C [address] [place] [address] [place] [address] Referral ID Status Reason Start Date Expiration Date V isits Requested Visits Authorized [id number] Closed Auto-Generate d Referral 03/13/2024 04/12/2025 1 1 [facility] (narrative)* Diagnostic Procedure Only (Routine) - Closed Specialty Diagnoses / Procedures Referred By Contac t Referred To Contact XR IMAGING Diagnoses Thumb pain, left Procedures XR DIGIT GENERAL 3V FRONTAL/LAT/OBL LEFT RADEX FINGR MINIMUM 2 VIEWS Ganga Nunez MD [address] [place], [place] [address] [place] [address] Referral ID Status Reason Start Date Expiration Date V isits Requested Visits Authorized [id number] Closed Auto-Generate d Referral 10/10/2023 11/08/2024 1 1 [facility] (narrative)* Diagnostic Procedure Only (Routine) - Pending Review Specialty Diagnoses / Procedures Referred By Contac t Referred To Contact [facility] Diagnoses Elevated alkaline phosphatase level Procedures US ABD RIGHT UPPER QUADRANT US ABDOMINAL REAL TIME W/IMAGE LIMITED Selam Argueta APRN.ELEVATOR [employer] [address] [place] [address] [place] [address] Referral ID Status Reason Start Date Expiration Date Visits Requested Visits Authorized [id number] Pending Review Auto-Generat ed Referral 06/06/2024 07/06/2025 1 1 * Diagnostic Procedure Only (Routine) - Pending Review Specialty Diagnoses / Procedures Referred By Contac t Referred To Contact [facility] Diagnoses Elevated alkaline phosphatase level Procedures NM BONE WHOLE BODY BONE &/JOINT IMAGING WHOLE BODY Selam Argueta APRN.ELEVATOR [employer] [address] [place] [address] [facility] [address] [place] [address] Referral ID Status Reason Start Date Expiration Date Visits Requested Visits Authorized [id number] Pending Review Auto-Generat ed Referral 06/06/2024 07/06/2025 1 1 [facility] (narrative)* Outpatient Procedure (Routine) - New Request Specialty Diagnoses / Procedures Referred By Contac t Referred To Contact [facility] Diagnoses Post-COVID chronic dyspnea Procedures SPIROMETRY - BASELINE AND POST DILATOR BRNCDILAT RSPSE SPMTRY PRE&POST-BRNCDILAT ADMScott Tyson MD [address] [place] [address] [facility] [address] [place] [address] Referral ID Status Reason Start Date Expiration Date Visits Requested Visits Authorized [id number] New Request Auto-Generat ed Referral 06/08/2024 07/08/2025 1 1 * Outpatient Procedure (Routine) - New Request Specialty Diagnoses / Procedures Referred By Contac t Referred To Contact [facility] Diagnoses Post-COVID chronic dyspnea Procedures OXIMETRY WITH AMBULATION NONINVASIVE EAR/PULSE OXIMETRY MULTIPLE Scott Galeas MD [address] [place] [address] [address] Referral ID Status Reason Start Date Expiration Date Visits Requested Visits Authorized [id number] New Request Auto-Generat ed Referral 06/08/2024 07/08/2025 1 1 [facility] (narrative)* Diagnostic Procedure Only (Routine) - Closed Specialty Diagnoses / Procedures Referred By Contac t Referred To Contact [facility] Diagnoses Elevated alkaline phosphatase level Procedures US ABD RIGHT UPPER QUADRANT US ABDOMINAL REAL TIME W/IMAGE LIMITED Selam Argueta APRN.VICKY [address] [place] [address] [place] [address] Referral ID Status Reason Start Date Expiration Date V isits Requested Visits Authorized [id number] Closed Auto-Generate d Referral 06/06/2024 07/06/2025 1 1 [facility] for [facility] (narrative)* Diagnostic Procedure Only (Routine) - Closed Specialty Diagnoses / Procedures Referred By Contac t Referred To Contact [facility] Diagnoses Elevated alkaline phosphatase level Procedures NM BONE WHOLE BODY BONE &/JOINT IMAGING WHOLE BODY Selam Argueta APRN.CNP [address] [place] [address] [facility] [address] [place] [address] Referral ID Status Reason Start Date Expiration Date V isits Requested Visits Authorized [id number] Closed Auto-Generate d Referral 06/06/2024 07/06/2025 1 1 [facility] (narrative)* Outpatient Procedure (Routine) - Pending Review Specialty Diagnoses / Procedures Referred By Contac t Referred To Contact [facility] Diagnoses SOB (shortness of breath) Procedures NITRIC OXIDE, EXHALED NITRIC OXIDE GAS DETERMINATION Scott Quarles MD [address] [place] [address] [facility] [address] [place] [address] Referral ID Status Reason Start Date Expiration Date Visits Requested Visits Authorized [id number] Pending Review Auto-Generat ed Referral 07/17/2025 1 1 [facility] (narrative)* Diagnostic Procedure Only (Routine) - Authorized Specialty Diagnoses / Procedures Referred By Contac t Referred To Contact [facility] Diagnoses Gross hematuria Procedures US KIDNEY/BLADDER US RETROPERITONEAL REAL TIME W/IMAGE COMPLETE Ganga Nunez MD [address] [place] [address] Us Imaging [facility]95 Referral ID Status Reason Start Date Expiration Date Visits Requested Visits Authorized [id number] Authorized Auto-Generat ed Referral 09/02/2024 1 1 [facility] (narrative)* Diagnostic Procedure Only (Routine) - Closed Specialty Diagnoses / Procedures Referred By Contac t Referred To Contact [facility] Diagnoses Gross hematuria Procedures US KIDNEY/BLADDER US RETROPERITONEAL REAL TIME W/IMAGE COMPLETE Ganga Nunez MD [address] [place] [address] Us Imaging [facility] Referral ID Status Reason Start Date Expiration Date V isits Requested Visits Authorized [id number] Closed Auto-Generate d Referral 07/16/2024 09/02/2024 1 1 [facility] for referral (narrative)* Diagnostic Procedure Only (Routine) - New Request Specialty Diagnoses / Procedures Referred By Contac t Referred To Contact [facility] Diagnoses Abnormal mammogram Procedures US BREAST LTD RIGHT US BREAST UNI REAL TIME WITH IMAGE LIMITED Edwina Khoury PA-C [address] [place] [address] [facility] [address] [place] [address] Referral ID Status Reason Start Date Expiration Date Visits Requested Visits Authorized [id number] New Request Auto-Generat ed Referral 4 09/11/2025 1 1 * Diagnostic Procedure Only (Routine) - New Request Specialty Diagnoses / Procedures Referred By Contac t Referred To Contact [facility] Diagnoses Abnormal mammogram Procedures US BREAST LTD LEFT US BREAST UNI REAL TIME WITH IMAGE LIMITED Edwina Khoury PA-C [address] [place] [address] [facility] [address] [place] [address] Referral ID Status Reason Start Date Expiration Date Visits Requested Visits Authorized [id number] New Request Auto-Generat ed Referral 4 09/11/2025 1 1 * Diagnostic Procedure Only (Routine) - Pending Review Specialty Diagnoses / Procedures Referred By Contkimberly t Referred To Contact [facility] Diagnoses Abnormal mammogram Procedures SANJUANA DIAG W GENNA BILATERAL DIGITAL BREAST TOMOSYNTHESIS BILATERAL Edwina Khoury PA-C [address] [place] [address] [facility] [address] [place] [phone] Referral ID Status Reason Start Date Expiration Date Visits Requested Visits Authorized [id number] Pending Review Auto-Generat ed Referral 4 09/11/2025 1 1 [facility] (narrative)* Diagnostic Procedure Only (Routine) - New Request Specialty Diagnoses / Procedures Referred By Nico linton Referred To Contact [facility] Diagnoses Abnormal mammogram Procedures SANJUANA DIAGNOSTIC BILATERAL DIAGNOSTIC MAMMOGRAPHY COMPUTER-AIDED DETCJ BI Edwina Khoury PA-C [address] [place] [address] Br Imaging [address] [place] [address] Referral ID Status Reason Start Date Expiration Date Visits Requested Visits Authorized [id number] New Request Auto-Generat ed Referral 4 09/12/2025 1 1 [facility] (narrative)* Diagnostic Procedure Only (Routine) - Closed Specialty Diagnoses / Procedures Referred By Nico t Referred To Contact CT IMAGING Diagnoses Gross hematuria Procedures CT UROGRAM WO/W IVCON CT ABD & PELVIS W/WO CONTRST 1+ BODY Shilpi Beatty, ENVIRONMENTAL PROFESSIONAL.ELEVATOR CON[employer], DNP [address] [place] [address] [place] [address] Referral ID Status Reason Start Date Expiration Date V isits Requested Visits Authorized [id number] Closed Auto-Generate d Referral 08/26/2024 09/02/2024 1 1 [facility] for referral (narrative)* Diagnostic Procedure Only (Urgent) - Closed Specialty Diagnoses / Procedures Referred By Contac t Referred To Contact XR IMAGING Diagnoses Thoracic spine pain Trauma Procedures XR THORACIC GENERAL 3V AP/LAT/SWIMMERS RADEX SPINE THORACIC 3 VIEWS Ganga Nunez MD [address] [place] [address] [place] [address] Referral ID Status Reason Start Date Expiration Date V isits Requested Visits Authorized [id number] Closed Auto-Generate d Referral 09/16/2024 10/16/2025 1 1 * Diagnostic Procedure Only (Urgent) - Closed Specialty Diagnoses / Procedures Referred By Contac t Referred To Contact XR IMAGING Diagnoses Rib pain on right side Trauma Procedures XR RIBS/CHEST 3V AP RIB/OBLS/CXR RIGHT RADEX RIBS UNI W/POSTEROANT CH MINIMUM 3 VIEWS Ganga Nunez MD [address] [place] [address] [place] [address] Referral ID Status Reason Start Date Expiration Date V isits Requested Visits Authorized [id number] Closed Auto-Generate d Referral 09/16/2024 10/16/2025 1 1 [facility] for referral (narrative)* Diagnostic Procedure Only (Urgent) - Closed Specialty Diagnoses / Procedures Referred By Contac t Referred To Contact XR IMAGING Diagnoses Thoracic spine pain Trauma Procedures XR THORACIC GENERAL 3V AP/LAT/SWIMMERS RADEX SPINE THORACIC 3 VIEWS Ganga Nunez MD [facility] [place] [address] [place] [address] Referral ID Status Reason Start Date Expiration Date V isits Requested Visits Authorized [id number] Closed Auto-Generate d Referral 09/16/2024 10/16/2025 1 1 * Diagnostic Procedure Only (Urgent) - Closed Specialty Diagnoses / Procedures [facility] Referred To Contact XR IMAG[facility] Diagnoses Rib pain on right side Trauma Procedures XR RIBS/CHEST 3V AP RIB/OBLS/CXR RIGHT RADEX RIBS UNI W/POSTEROANT CH MINIMUM 3 VIEWS Ganga Nunez MD [address] [place] [address] [place] [address] Referral ID Status Reason Start Date Expiration Date V isits Requested Visits Authorized [id number] Closed Auto-Generate d Referral 09/16/2024 10/16/2025 1 1 [facility] ([facility])* Outpatient Procedure (Routine) - Authorized Specialty Diagnoses / Procedures Referred By [facility] Referred To Contact [facility] Diagnoses 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 [address] Tessy Rice MD [address] [place] [address] Referral ID Status Reason Start Date Expiration Date Visits Requested Visits Authorized [id number] Authorized Auto-Generat ed Referral 09/26/2024 09/02/2025 1 1 [facility] (narrative)* Outpatient Procedure (Routine) - New Request Specialty Diagnoses / Procedures Referred By [facility] Referred To Contact [facility] Diagnoses Vaginal high risk human papillomavirus (HPV) DNA test positive Procedures COLPOSCOPY COLPOSCOPY CERVIX BX CERVIX & ENDOCRV CURRETAGE Tessy Rice MD [address] [place] [address] [facility] [address] [place] [address] Referral ID Status Reason Start Date Expiration Date Visits Requested Visits Authorized [id number] New Request Auto-Generat ed Referral 10/02/2024 10/02/2025 1 1 [facility] (narrative)No reason for referral [facility] Phone: Reason for visit Narrative* Diagnostic Procedure Only (Routine) - Closed Specialty Diagnoses / Procedures Referred By Nico linton Referred To Contact [facility] Diagnoses Encounter for screening mammogram for breast cancer Procedures SANJUANA SCREENING SCREENING MAMMOGRAPHY BI 2-VIEW BREAST INC CAD Ganga Nunez MD [address] [place] [address] [facility] [address] [place] [address] Referral ID Status Reason Start Date Expiration Date V isits Requested Visits Authorized [id number] Closed Auto-Generate d Referral 04/06/2022 05/05/2023 1 1 [facility] Narrative* Outpatient Procedure (Routine) - Closed Specialty Diagnoses / Procedures Referred By Nico linton Referred To Contact [facility] Diagnoses Diarrhea of presumed infectious origin Procedures COLONOSCOPY DIAGNOSTIC COLONOSCOPY FLX DX W/COLLJ SPEC WHEN Carmine Orellana MD [address] [place] [address] [facility] [address] [place] [address] Referral ID Status Reason Start Date Expiration Date V isits Requested Visits Authorized [id number] Closed Auto-Generate d Referral 12/15/2021 12/15/2022 1 1 [facility] Narrative* Diagnostic Procedure Only (Routine) - Closed Specialty Diagnoses / Procedures Referred By Nico linton Referred To Contact BR IMAG[facility] Diagnoses Encounter for screening mammogram for breast cancer Procedures SANJUANA SCREENING SCREENING MAMMOGRAPHY BI 2-VIEW BREAST INC CAD Ganga Nunez MD [address] [place] [address] Br [facility] [address] [place] [address] Referral ID Status Reason Start Date Expiration Date V isits Requested Visits Authorized [id number] Closed Auto-Generate d Referral 05/30/2023 06/28/2024 1 1 [facility] Narrative* Diagnostic Procedure Only (Routine) - Closed Specialty Diagnoses / Procedures Referred By Contac t Referred To Contact XR IMAGING Diagnoses Foot pain, left Procedures XR FOOT GENERAL 3V AP/LAT/OBL LEFT RADEX FOOT COMPLETE MINIMUM 3 VIEWS Edwina Khoury PA-C [address] [place] [address] [place] [address] Referral ID Status Reason Start Date Expiration Date V isits Requested Visits Authorized [id number] Closed Auto-Generate d Referral 03/13/2024 04/12/2025 1 1 [facility] Narrative* Diagnostic Procedure Only (Routine) - Closed Specialty Diagnoses / Procedures Referred By Contac t Referred To Contact XR IMAGING Diagnoses Thumb pain, left Procedures XR DIGIT GENERAL 3V FRONTAL/LAT/OBL LEFT RADEX FINGR MINIMUM 2 VIEWS Ganga Nunez MD [address] [place] [address] [place] [address] Referral ID Status Reason Start Date Expiration Date V isits Requested Visits Authorized [id number] Closed Auto-Generate d Referral 10/10/2023 11/08/2024 1 1 [facility] Narrative* Diagnostic Procedure Only (Routine) - Closed Specialty Diagnoses / Procedures Referred By Contac t Referred To Contact [facility]ULAR [facility]AL [facility] Diagnoses Elevated alkaline phosphatase level Procedures NM BONE WHOLE BODY BONE &/JOINT IMAGING WHOLE BODY Selam Argueta, ENVIRONMENTAL PROFESSIONAL.ELEVATOR CONSTRUCTOR HYDRAULIC [address] [place] [address] [facility] [address] [place] [address] Referral ID Status Reason Start Date Expiration Date V isits Requested Visits Authorized [id number] Closed Auto-Generate d Referral 06/06/2024 07/06/2025 1 1 [facility] Narrative* Diagnostic Procedure Only (Routine) - Closed Specialty Diagnoses / Procedures Referred By Contac t Referred To Contact US IMAGING Diagnoses Gross hematuria Procedures US KIDNEY/BLADDER US RETROPERITONEAL REAL TIME W/IMAGE COMPLETE Ganga Nunez MD [address] [place] [address] [place] [address] Referral ID Status Reason Start Date Expiration Date V isits Requested Visits Authorized [id number] Closed Auto-Generate d Referral 07/16/2024 09/02/2024 1 1 [facility] for visit Narrative* Diagnostic Procedure Only (Routine) - Closed Specialty Diagnoses / Procedures Referred By Nico t Referred To Contact [facility] Diagnoses Screening mammogram, encounter for Procedures SANJUANA SCREENING W GENNA SCREENING DIGITAL BREAST TOMOSYNTHESIS BI SCREENING MAMMOGRAPHY BI 2-VIEW BREAST INC CAD Edwina Khoury PA-C [address] [place] [address] Br [facility] [address] [place] [address] Referral ID Status Reason Start Date Expiration Date V isits Requested Visits Authorized [id number] Closed Auto-Generate d Referral 03/13/2024 04/12/2025 1 1 [facility] Narrative* Diagnostic Procedure Only (Urgent) - Closed Specialty Diagnoses / Procedures Referred By Nico t Referred To Contact XR IMAGING Diagnoses Thoracic spine pain Trauma Procedures XR THORACIC GENERAL 3V AP/LAT/SWIMMERS RADEX SPINE THORACIC 3 VIEWS Ganga Nunez MD [address] [place] [address] [place] [address] Referral ID Status Reason Start Date Expiration Date V isits Requested Visits Authorized [id number] Closed Auto-Generate d Referral 09/16/2024 10/16/2025 1 1 [facility] Narrative* Diagnostic Procedure Only (Routine) - Closed Specialty Diagnoses / Procedures Referred By Nico t Referred To Contact [facility] Diagnoses Abnormal mammogram Procedures SANJUANA DIAGNOSTIC BILATERAL DIAGNOSTIC MAMMOGRAPHY COMPUTER-AIDED DETCJ BI Edwina Khoury PA-C [address] [place] [address] Br [facility] [address] [place] [address] Referral ID Status Reason Start Date Expiration Date V isits Requested Visits Authorized [id number] Closed Auto-Generate d Referral 08/13/2024 09/12/2025 1 1 [facility] Chief Complaint and Reason for Visit Chief Complaint SOB, CONCERN OVER PE 6 M FU DYSPNEA DYSPNEA Reason for Visit Chest pain COVID Valvular heart disease Essential hypertension Hyperlipidemia Palpitations Thoracic aneurysm without mention of rupture Chief Complaint 3 M FU RIGHT SHOULDER *TRUE SITE PROTOCOL* Reason for Visit Chest pain COVID Valvular heart disease Essential hypertension Hyperlipidemia Palpitations Thoracic aneurysm without mention of rupture Chief Complaint RT TOTAL REVERSE NISH ULDER RT TOTAL REVERSE SHOULDER RT TOTAL REVERSE SHOULDER 4-6 MO F/U GENERAL ILLNESS Reason for Visit Osteoarthritis, shou lder Status post reverse total arthroplasty of right shoulder Dyspnea on exertion Valvular heart disease Chest pain Essential hypertension Hyperlipidemia Palpitations Thoracic aneurysm without mention of rupture Chief Complaint CHEST PAIN CHEST PAIN Amb Documentation 6 wk fu per JHR 6-8 WK F/U E-ORDER Reason for Visit Dizziness Dyspnea on exertion Chest pain Essential hypertension Hyperlipidemia Nonrheumatic aortic (valve) insufficiency Palpitations Thoracic aneurysm without mention of rupture Edema Dizziness Dyspnea on exertion Essential hypertension Fatigue Hyperlipidemia Nonrheumatic aortic (valve) insufficiency Palpitations Thoracic aneurysm without mention of rupture Edema Chief Complaint 30 DAY MONITOR R00.2 SCREENING RIGHT TOTAL HIP ARTHROPLASTY, POSTERIOR APPROACH Chief Complaint 30 DAY MONITOR R00.2 Right total hip arthroplasty, poste SCREENING RIGHT TOTAL HIP ARTHROPLASTY, POSTERIOR APPROACH Chief Complaint 30 DAY MONITOR R00.2 Right total hip arthroplasty, poste SCREENING RIGHT TOTAL HIP ARTHROPLASTY, POSTERIOR APPROACH STAT AFTER CARE RIGHT LOWER EXT Chief Complaint 30 DAY MONITOR R00.2 Right total hip arthroplasty, poste SCREENING RIGHT TOTAL HIP ARTHROPLASTY, POSTERIOR APPROACH STAT AFTER CARE RIGHT LOWER EXT 6 M FU INT LABS Reason for Visit Dyspnea on exertion Essential hypertension Hyperlipidemia Nonrheumatic aortic (valve) insufficiency Thoracic aneurysm without mention of rupture Chief Complaint Right total hip arth roplasty, poste SCREENING RIGHT TOTAL HIP ARTHROPLASTY, POSTERIOR APPROACH STAT AFTER CARE RIGHT LOWER EXT 6 M FU INT LABS I71.20 Reason for Visit Dyspnea on exertion Essential hypertension Hyperlipidemia Nonrheumatic aortic (valve) insufficiency Thoracic aneurysm without mention of rupture Chief Complaint STAT AFTER CARE RIGH T LOWER EXT 6 M FU INT LABS I71.20 THORACIC AORTIC ANEURYSM WITHOUT RUPTURE Reason for Visit Dyspnea on exertion Essential hypertension Hyperlipidemia Nonrheumatic aortic (valve) insufficiency Thoracic aneurysm without mention of rupture Chief Complaint 6 M FU INT LABS I71.20 THORACIC AORTIC ANEURYSM WITHOUT RUPTURE LOCALIZED SWELLING LEFT UPPER LIMB Reason for Visit Dyspnea on exertion Essential hypertension Hyperlipidemia Nonrheumatic aortic (valve) insufficiency Thoracic aneurysm without mention of rupture Chief Complaint 6 M FU INT LABS I71.20 THORACIC AORTIC ANEURYSM WITHOUT RUPTURE LOCALIZED SWELLING LEFT UPPER LIMB AFTERCARE JOINT REPLACEMENT SX Reason for Visit Dyspnea on exertion Essential hypertension Hyperlipidemia Nonrheumatic aortic (valve) insufficiency Thoracic aneurysm without mention of rupture Chief Complaint Admit Date FATTY LIVER August 08, 2024 7 :45am LUMBAR SPINE October 24, 2024 1:18pm RM 3 October 24, 2024 1:36pm Pain November 22, 2024 7:5 3am Reason for Visit Admit Date Diarrhea September 23, 2024 1 2:59pm Hematochezia September 23, 2024 1 2:59pm Lumbar radiculopathy October 24, 2024 1:18pm Degenerative disc disease October 24, 2024 1:18pm Advance Directives No Advanced Directives Records Found Advance Directive Response Recorded Date/ Time Advance Directives No August 11, 2016 2:27pm Living Will No August 18, 2 021 7:59pm Power of Sox Analyst No August 18, 2021 7:59pm Documents on File Type Date Recorded Patient Ux Information Architect Expl anation Advance Directive(s) Advance Directive(s) 04/05/2020 10:26 AM Advance Directive(s) 09/19/2019 9:20 AM Advance Directive(s) 09/11/2019 4:59 PM Advance Directive(s) 04/26/2018 11:19 AM Advance Directive(s) 04/26/2018 3:21 PM Advance Directive(s) 04/26/2018 3:20 PM Advance Directive(s) 10/18/2017 7:26 PM Documents on File Type Date Recorded Patient Ux Information Architect Expl anation Advance Directive(s) Advance Directive(s) 04/05/2020 10:26 AM Advance Directive(s) 09/19/2019 9:20 AM Advance Directive(s) 09/11/2019 4:59 PM Advance Directive(s) 04/26/2018 11:19 AM Advance Directive(s) 04/26/2018 3:21 PM Advance Directive(s) 04/26/2018 3:20 PM Advance Directive(s) 10/18/2017 7:26 PM Documents on File Type Date Recorded Patient Ux Information Architect Expl anation Advance Directive(s) Advance Directive(s) 03/13/2022 4:36 PM Advance Directive(s) 04/05/2020 10:26 AM Advance Directive(s) 09/19/2019 9:20 AM Advance Directive(s) 09/11/2019 4:59 PM Advance Directive(s) 04/26/2018 11:19 AM Advance Directive(s) 04/26/2018 3:21 PM Advance Directive(s) 04/26/2018 3:20 PM Advance Directive(s) 10/18/2017 7:26 PM Documents on File Type Date Recorded Patient Ux Information Architect Expl anation Advance Directive(s) Advance Directive(s) 03/13/2022 4:36 PM Advance Directive(s) 04/05/2020 10:26 AM Advance Directive(s) 09/19/2019 9:20 AM Advance Directive(s) 09/11/2019 4:59 PM Advance Directive(s) 04/26/2018 11:19 AM Advance Directive(s) 04/26/2018 3:21 PM Advance Directive(s) 04/26/2018 3:20 PM Advance Directive(s) 10/18/2017 7:26 PM Documents on File Type Date Recorded Patient Ux Information Architect Expl anation Advance Directive(s) Advance Directive(s) 04/04/2022 11:04 AM Advance Directive(s) 03/13/2022 4:36 PM Advance Directive(s) 04/05/2020 10:26 AM Advance Directive(s) 09/19/2019 9:20 AM Advance Directive(s) 09/11/2019 4:59 PM Advance Directive(s) 04/26/2018 11:19 AM Advance Directive(s) 04/26/2018 3:21 PM Advance Directive(s) 04/26/2018 3:20 PM Advance Directive(s) 10/18/2017 7:26 PM Documents on File Type Date Recorded Patient Ux Information Architect Expl anation Advance Directive(s) 04/26/2018 3:20 PM Documents on File Type Date Recorded Patient Ux Information Architect Expl anation Advance Directive(s) 04/26/2018 3:20 PM Advance Directive Response Recorded Date/ Time Advance Directives No August 11, 2016 1:27pm Living Will No August 14, 2 022 6:50pm Power of Sox Analyst No August 14, 2022 6:50pm Advance Directive Response Recorded Date/ Time Advance Directives No August 11, 2016 2:27pm Living Will No August 14 7:50pm Power of Sox Analyst No August 14, 2022 7:50pm Advance Directive Response Recorded Date/ Time Name of Medical Power of Sox Analyst Dustin Burch June 18, 2023 1:34pm Advance Directives No August 11, 2016 2:27pm Living Will Yes June 18 1:34pm Power of Sox Analyst Yes June 18, 2023 1:34pm Advance Directive Response Recorded Date/ Time Name of Medical Power of Sox Analyst Dusitn Burch June 18, 2023 12:34pm Advance Directives No August 11, 2016 1:27pm Living Will Yes June 18 12:34pm Power of Sox Analyst Yes June 18, 2023 12:34pm Advance Directive Response Recorded Date/ Time Advance Directives No August 11, 2016 1:27pm Living Will Yes June 18 12:34pm Power of Sox Analyst Yes June 18, 2023 12:34pm Advance Directive Response Recorded Date/ Time Advance Directives No August 11, 2016 2:27pm Living Will Yes June 18 1:34pm Power of Sox Analyst Yes June 18, 2023 1:34pm Advance Directive Response Recorded Date/ Time Living Will Yes September 18 4:23pm Do you have a Healthcare Power of Sox Analyst? Yes September 18, 2024 4:23pm Name of Medical Power of Sox Analyst DUSTIN BURCH September 18, 2024 4:23pm Advance Directives No August 11, 2016 2:27pm Reason for Referral Specialty Diagnoses / Procedures Referred By Contac t Referred To Contact CT IMAGING Diagnoses Dizziness Syncope, unspecified syncope type Hydrocephalus, adult (HCC) Other hydrocephalus (HCC) Procedures CT BRAIN WO IVCON CT HEAD/BRAIN W/O CONTRAST MATERIAL Ganga Nunez MD [address] [place] [address] Ct Imaging Referral ID Status Reason Start Date Expiration Date V isits Requested Visits Authorized [id number] Open Auto-Generate d Referral 01/24/2022 02/23/2023 1 1 Specialty Diagnoses / Procedures Referred By Contac t Referred To Contact Neurology Diagnoses Hydrocephalus, adult (HCC) Procedures CONSULT TO NEUROLOGY OFFICE/OUTPATIENT [facility] 60-74 MINUTES Ganga Nunez MD [address] [place] [address] Referral ID Status Reason Start Date Expiration Date Visits Requested Visits Authorized [id number] Authorized PCP Requested Referral 01/24/2022 01/24/2023 1 1 Specialty Diagnoses / Procedures Referred By Contac t Referred To Contact Allergy Diagnoses Allergy, initial encounter Procedures CONSULT TO ALLERGY/IMMUNOLOGY OFFICE/OUTPATIENT [facility] 60-74 MINUTES Ganga Nunez MD [address] [place] [address] Referral ID Status Reason Start Date Expiration Date Visits Requested Visits Authorized [id number] Authorized PCP Requested Referral 01/24/2022 01/24/2023 1 1 Specialty Diagnoses / Procedures Referred By Contac t Referred To Contact [facility] Diagnoses Dizziness Syncope, unspecified syncope type Procedures US CAROTID ARTERIES ALLA VAS LAB DUPLEX SCAN EXTRACRANIAL ART COMPL BI STUDY Ganga Nunez MD [address] [place] [id number] [facility] [address] [place] [address] Referral ID Status Reason Start Date Expiration Date Visits Requested Visits Authorized [id number] Authorized Auto-Generat ed Referral 01/24/2022 01/24/2023 1 1 Referral ID Status Reason Start Date Expiration Date V isits Requested Visits Authorized [id number] Closed Auto-Generate d Referral 01/24/2022 03/25/2022 1 1 Specialty Diagnoses / Procedures Referred By Contac t Referred To Contact MR IMAGING Diagnoses Other hydrocephalus (HCC) Procedures MRI BRAIN WO IVCON MRI BRAIN BRAIN STEM W/O CONTRAST MATERIAL Nadira Springer PA-C [address] [place] [address] Mr Imaging Referral ID Status Reason Start Date Expiration Date Visits Requested Visits Authorized [id number] Pending Review Auto-Generat ed Referral 02/17/2022 03/19/2023 1 1 Specialty Diagnoses / Procedures Referred By Contac t Referred To Contact MR IMAGING Diagnoses Nonruptured cerebral aneurysm Procedures MRA BRAIN WO IVCON MRA, HEAD W/O CONTRAST Fagert, Van, ENVIRONMENTAL PROFESSIONAL.ELEVATOR CONSTRUCTOR HYDRAULIC [address] [place] [address] Mr Imaging Referral ID Status Reason Start Date Expiration Date V isits Requested Visits Authorized [id number] Closed Auto-Generate d Referral 02/07/2022 04/13/2022 1 1 Specialty Diagnoses / Procedures Referred By Contac t Referred To Contact MR IMAGING Diagnoses Localized swelling, mass, or lump of right lower extremity Procedures MRI LOWER LEG WO IVCON RT MRI LOWER EXTREM OTH/THN JT W/O CONTR MATRL Edwina Khoury PA-C [address] [place] [address] Mr Imaging Referral ID Status Reason Start Date Expiration Date Visits Requested Visits Authorized [id number] Additional Clinical Info Needed Auto-Generat ed Referral 03/08/2022 04/07/2023 1 1 Specialty Diagnoses / Procedures Referred By Contac t Referred To Contact CT IMAGING Diagnoses Lung nodules Procedures CT CHEST WO IVCON CAT SCAN OF CHEST Scott Quarles MD [address] [place] [address] Ct Imaging Referral ID Status Reason Start Date Expiration Date V isits Requested Visits Authorized [id number] Closed Auto-Generate d Referral 03/06/2022 04/18/2022 1 1 Specialty Diagnoses / Procedures Referred By Contac t Referred To Contact CT IMAGING Diagnoses Lung nodules Procedures CT CHEST WO IVCON DIAGNOSTIC COMPUTED TOMOGRAPHY THORAX W/O CNTRST Scott Quarles MD [address] [place] [address] Ct Imaging Referral ID Status Reason Start Date Expiration Date Visits Requested Visits Authorized [id number] Pending Review Auto-Generat ed Referral 03/20/2023 04/19/2023 1 1 Specialty Diagnoses / Procedures Referred By Contac t Referred To Contact Orthopedics Diagnoses Chronic pain of right knee Procedures CONSULT TO ORTHOPAEDICS OFFICE/OUTPATIENT NEW HIGH MDM 60-74 MINUTES Edwina Khoury PA-C [address] [place] [address] Referral ID Status Reason Start Date Expiration Date Visits Requested Visits Authorized [id number] Authorized PCP Requested Referral 03/24/2022 03/24/2023 1 1 Specialty Diagnoses / Procedures Referred By Contac t Referred To Contact Orthopedics Diagnoses Acute pain of right knee Procedures CONSULT TO ORTHOPAEDICS OFFICE/OUTPATIENT [facility] 60-74 MINUTES Ganga Nunez MD [address] [place] [address] Referral ID Status Reason Start Date Expiration Date Visits Requested Visits Authorized [id number] Authorized PCP Requested Referral 2 08/18/2023 1 1 Specialty Diagnoses / Procedures Referred By Contac t Referred To Contact Pain Management Diagnoses Chronic low back pain without sciatica, unspecified back pain laterality Chronic knee pain, unspecified laterality Hip pain DDD (degenerative disc disease), lumbar Procedures CONSULT TO PAIN MGT OFFICE/OUTPATIENT [facility] 60-74 MINUTES Ganga Nunez MD [address] [place] [address] Referral ID Status Reason Start Date Expiration Date Visits Requested Visits Authorized [id number] Authorized PCP Requested Referral 10/18/2022 10/18/2023 1 1 Specialty Diagnoses / Procedures Referred By Contac t Referred To Contact Rheumatology Diagnoses Polyarthralgia Fibromyalgia Procedures CONSULT TO RHEUM/IMMUN DISEASE OFFICE/OUTPATIENT [facility] 60-74 MINUTES Chidi Gao, DO [address] [address] Medardo Rivera MD [address] [address] Referral ID Status Reason Start Date Expiration Date Visits Requested Visits Authorized [id number] Authorized PCP Requested Referral 11/13/2022 02/11/2023 1 1 Specialty Diagnoses / Procedures Referred By Contac t Referred To Contact Pain Management Diagnoses Chronic right-sided low back pain with right-sided sciatica Procedures CONSULT TO PAIN MGT Chidi Gao, DO [address] [address] Yury Hurt MD [address] [place] [address] Referral ID Status Reason Start Date Expiration Date Visits Requested Visits Authorized [id number] Ref Not Required PCP Requested Referral 11/13/2022 02/11/2023 3 3 Specialty Diagnoses / Procedures Referred By Contac t Referred To Contact XR IMAGING Diagnoses Chronic right-sided low back pain with right-sided sciatica Procedures XR LUMBAR LIMITED 2V AP/LAT RADEX SPINE LUMBOSACRAL 2/3 VIEWS Chidi Gao, DO [address] [address] Xr Imaging Referral ID Status Reason Start Date Expiration Date Visits Requested Visits Authorized [id number] Pending Review Auto-Generat ed Referral 11/13/2022 12/13/2023 1 1 Specialty Diagnoses / Procedures Referred By Contac t Referred To Contact [facility] Diagnoses Spinal stenosis, lumbar region, without neurogenic claudication Primary osteoarthritis of both knees Procedures PT REHAB FOLLOW UP ORDER THERAPEUTIC EXERCISES RE, EA 15 MIN. Barbra Philip, PT [facility] [address] [place] [address] Referral ID Status Reason Start Date Expiration Date Visits Requested Visits Authorized [id number] Pending Review PCP Requested Referral Auto-Generate d Referral 11/15/2022 02/13/2023 1 1 Specialty Diagnoses / Procedures Referred By Contac t Referred To Contact MR IMAGING Diagnoses Hydrocephalus, adult (HCC) Ataxia Double vision Urinary incontinence, unspecified type Other hydrocephalus (HCC) Procedures MRI BRAIN WO IVCON MRI BRAIN BRAIN STEM W/O CONTRAST MATERIAL Ganga Nunez MD [address] [place] [address] Mr Imaging Referral ID Status Reason Start Date Expiration Date Visits Requested Visits Authorized [id number] Pending Review Auto-Generat ed Referral 11/15/2022 12/15/2023 1 1 Referral ID Status Reason Start Date Expiration Date Visits Requested Visits Authorized [id number] Pending Review Auto-Generat ed Referral 03/12/2023 03/07/2024 1 1 Specialty Diagnoses / Procedures Referred By Contac t Referred To Contact CT IMAGING Diagnoses Lung nodules Procedures CT CHEST WO IVCON DIAGNOSTIC COMPUTED TOMOGRAPHY THORAX W/O CNTRST Tessy Moy PA-C [address] [place] [address] Ct Imaging Referral ID Status Reason Start Date Expiration Date Visits Requested Visits Authorized [id number] Pending Review Auto-Generat ed Referral 09/26/2023 04/24/2024 1 1 Specialty Diagnoses / Procedures Referred By Contac t Referred To Contact Pain Management Diagnoses Fibromyalgia Chronic pain syndrome Procedures CONSULT TO PAIN MGT OFFICE/OUTPATIENT [facility] MDM 60-74 MINUTES Ganga Nunez MD [address] [place] [address] Referral ID Status Reason Start Date Expiration Date Visits Requested Visits Authorized [id number] Authorized PCP Requested Referral 04/24/2023 04/23/2024 1 1 Specialty Diagnoses / Procedures Referred By Contac t Referred To Contact [facility] Diagnoses Dizziness Procedures US CAROTID ARTERIES ALLA VAS LAB DUPLEX SCAN EXTRACRANIAL ART COMPL BI STUDY Ganga Nunez MD [address] [place] [address] [facility] [address] [place] [address] Referral ID Status Reason Start Date Expiration Date Visits Requested Visits Authorized [id number] Authorized Auto-Generat ed Referral 04/24/2023 04/23/2024 1 1 Specialty Diagnoses / Procedures Referred By Contac t Referred To Contact MR IMAGING Diagnoses Other hydrocephalus (HCC) Procedures MRI BRAIN WO IVCON MRI BRAIN BRAIN STEM W/O CONTRAST MATERIAL Nadira Springer PA-C [address] [place] [address] Mr Imaging [facility] Referral ID Status Reason Start Date Expiration Date Visits Requested Visits Authorized [id number] Pending Review Auto-Generat ed Referral 06/01/2023 06/30/2024 1 1 Specialty Diagnoses / Procedures Referred By Contac t Referred To Contact CT IMAGING Diagnoses Lung nodules Procedures CT CHEST WO IVCON DIAGNOSTIC COMPUTED TOMOGRAPHY THORAX W/O CNTRST Scott Quarles MD [address] [place] [address] [place] [address] Referral ID Status Reason Start Date Expiration Date V isits Requested Visits Authorized [id number] Closed Auto-Generate d Referral 03/16/2023 09/12/2023 1 1 Specialty Diagnoses / Procedures Referred By Contac t Referred To Contact Diagnoses 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) Reginaldo Burnett MD [address] [place] [address] Referral ID Status Reason Start Date Expiration Date Visits Re quested Visits Authorized [id number] Closed 1 1 Specialty Diagnoses / Procedures Referred By Contac t Referred To Contact XR IMAGING Diagnoses Asymptomatic postmenopausal status Procedures DXA-AXIAL SKELETON DXA BONE DENSITY STUDY / SITES AXIAL SKEL Reginaldo Burnett MD [address] [place] [address] [place] [address] Referral ID Status Reason Start Date Expiration Date Visits Requested Visits Authorized [id number] New Request Auto-Generat ed Referral 05/26/2024 06/25/2025 1 1 Specialty Diagnoses / Procedures Referred By Contac t Referred To Contact Gastroenterology Diagnoses Positive occult stool blood test Procedures CONSULT TO GASTROENTEROLOGY Selam Argueta APRN.ELEVATOR CONSTRUCTOR HYDRAULIC [address] [place] [address] [employer], DO [address] [place] [address] Referral ID Status Reason Start Date Expiration Date Visits Requested Visits Authorized [id number] Ref Not Required PCP Requested Referral 05/30/2024 05/30/2025 1 1 Specialty Diagnoses / Procedures Referred By Contac t Referred To Contact Urology Diagnoses Urinary urgency Procedures CONSULT TO UROLOGY OFFICE/OUTPATIENT [facility] 60 MINUTES Selam Argueta APRN.[employer] [address] [place] [address] Referral ID Status Reason Start Date Expiration Date Visits Requested Visits Authorized [id number] Authorized PCP Requested Referral 06/09/2024 06/09/2025 1 1 Specialty Diagnoses / Procedures Referred By Contac t Referred To Contact CT IMAGING Diagnoses LLQ pain RLQ abdominal pain PCB (post coital bleeding) Infection in abdomen (HCC) Procedures CT ABD/PEL W IVCON CT ABD & PELVIS W/CONTRAST Ganga Nunez MD [address] [place] [address] [place] [address] Referral ID Status Reason Start Date Expiration Date Visits Requested Visits Authorized [id number] Authorized Auto-Generat ed Referral Patient Cleared - Admin/Chairm an/Director advise to proceed or did not respond 09/02/2024 2 2 Specialty Diagnoses / Procedures Referred By Contac t Referred To Contact Gynecology Diagnoses Vaginal odor PCB (post coital bleeding) Procedures CONSULT TO GYNECOLOGY OFFICE/OUTPATIENT [facility] 60 MINUTES Ganga Nunez MD [address] [place] [address] Referral ID Status Reason Start Date Expiration Date Visits Requested Visits Authorized [id number] Authorized PCP Requested Referral Auto-Generate d Referral 4 07/15/2025 1 1 Referral ID Status Reason Start Date Expiration Date V isits Requested Visits Authorized [id number] Closed Auto-Generat ed Referral Patient Cleared - Admin/Chairm an/Director advise to proceed or did not respond 07/16/2024 09/02/2024 2 2 Specialty Diagnoses / Procedures Referred By Contac t Referred To Contact Urology Diagnoses Gross hematuria Procedures CONSULT TO UROLOGY OFFICE/OUTPATIENT [facility] 60 MINUTES Ganga Nunez MD [address] [place] [address] Referral ID Status Reason Start Date Expiration Date Visits Requested Visits Authorized [id number] Authorized PCP Requested Referral 4 07/16/2025 1 1 Specialty Diagnoses / Procedures Referred By Contac t Referred To Contact CT IMAGING Diagnoses Gross hematuria Procedures CT UROGRAM WO/W IVCON CT ABD & PELVIS W/WO CONTRST 1+ BODY Shilpi Beatty, ENVIRONMENTAL PROFESSIONAL.[employer], DNP [address] [place] [address] [place] [address] Referral ID Status Reason Start Date Expiration Date Visits Requested Visits Authorized [id number] Pending Review Auto-Generat ed Referral 4 09/10/2025 1 1 Medications Administered Section Inactive Administered Medications - up to 3 most recent administrations Medication Order MAR Action Action Date Dose Rate Site benzocaine 20% 1 [place] (TOPEX) 1 [place], TOPICAL, DIRECTED, Starting on Sun05/05/22 at 0730, Until Sun05/05/22 at 1129, DOSING DIRECTED BY PHYSICIAN FOR PROCEDURAL SEDATION ONLY - Pharmaceutical Waste: Aerosol -, Intraprocedure Given 05/05/2022 7:22 AM EDT 1 [place] lactated ringers iv infusion 30 mL/hr, INTRAVENOUS, [...] injection INTRA-ARTICULAR, X (OR/PROCEDURE) PRN, Starting on Arely 11/30/22 at 1038, Until Sun12/01/22 at 0304, Intraprocedure Given 11/30/2022 10:38 AM EDT 1.5 mL Hip, Right lidocaine (PF) 20 mg/mL (2 %) injection (XYLOCAINE) SUBCUTANEOUS, X (OR/PROCEDURE) PRN, Starting on Arely 11/30/22 at 1035, Until Sun12/01/22 at 0304, Intraprocedure Given 11/30/2022 10:35 AM EDT 10 mL Hip, Right triamcinolone acetonide injection (KeNALog 40) INTRA-ARTICULAR, X (OR/PROCEDURE) PRN, Starting on Arely 11/30/22 at 1037, Until Sun12/01/22 at 0304, Intraprocedure Given 11/30/2022 10:37 AM EDT 80 mg Summary Purpose Family History No Family History Records Found Additional Source Comments Goals (unrecognized section and content) Goals may be documented in a n alternate sectionGoals may be documented in an alternate sectionGoals may be documented in an alternate section No data available for this sectionGoals may be documented in an alternate section No data available for this sectionGoals may be documented in an alternate sectionGoals may be documented in an alternate sectionGoals may be documented in an alternate section Source Comments (unrecognize d section and content) In the event this informatio n is protected by the Federal Confidentiality of Alcohol and Drug Abuse Patient Records regulations: The Federal rules restrict any use of the information to criminally investigate or prosecute any alcohol or drug abuse patient.[facility] the event this information is protected by the Federal Confidentiality of Alcohol and Drug Abuse Patient Records regulations: The Federal rules restrict any use of the information to criminally investigate or prosecute any alcohol or drug abuse patient.[facility] HospitalIn the event this information is protected by the Federal Confidentiality of Alcohol and Drug Abuse Patient Records regulations: The Federal rules restrict any use of the information to criminally investigate or prosecute any alcohol or drug abuse patient.[facility]In the event this information is protected by the Federal Confidentiality of Alcohol and Drug Abuse Patient Records regulations: The Federal rules restrict any use of the information to criminally investigate or prosecute any alcohol or drug abuse patient.[facility] HospitalIn the event this information is protected by the Federal Confidentiality of Alcohol and Drug Abuse Patient Records regulations: The Federal rules restrict any use of the information to criminally investigate or prosecute any alcohol or drug abuse patient.[facility] HospitalIn the event this information is protected by the Federal Confidentiality of Alcohol and Drug Abuse Patient Records regulations: The Federal rules restrict any use of the information to criminally investigate or prosecute any alcohol or drug abuse patient.[facility] HospitalIn the event this information is protected by the Federal Confidentiality of Alcohol and Drug Abuse Patient Records regulations: The Federal rules restrict any use of the information to criminally investigate or prosecute any alcohol or drug abuse patient.[facility] HospitalIn the event this information is protected by the Federal Confidentiality of Alcohol and Drug Abuse Patient Records regulations: The Federal rules restrict any use of the information to criminally investigate or prosecute any alcohol or drug abuse patient.[facility] HospitalIn the event this information is protected by the Federal Confidentiality of Alcohol and Drug Abuse Patient Records regulations: The Federal rules restrict any use of the information to criminally investigate or prosecute any alcohol or drug abuse patient.[facility] HospitalIn the event this information is protected by the Federal Confidentiality of Alcohol and Drug Abuse Patient Records regulations: The Federal rules restrict any use of the information to criminally investigate or prosecute any alcohol or drug abuse patient.[facility] HospitalIn the event this information is protected by the Federal Confidentiality of Alcohol and Drug Abuse Patient Records regulations: The Federal rules restrict any use of the information to criminally investigate or prosecute any alcohol or drug abuse patient.[facility] HospitalIn the event this information is protected by the Federal Confidentiality of Alcohol and Drug Abuse Patient Records regulations: The Federal rules restrict any use of the information to criminally investigate or prosecute any alcohol or drug abuse patient.[facility] HospitalIn the event this information is protected by the Federal Confidentiality of Alcohol and Drug Abuse Patient Records regulations: The Federal rules restrict any use of the information to criminally investigate or prosecute any alcohol or drug abuse patient.[facility] HospitalIn the event this information is protected by the Federal Confidentiality of Alcohol and Drug Abuse Patient Records regulations: The Federal rules restrict any use of the information to criminally investigate or prosecute any alcohol or drug abuse patient.[facility] HospitalIn the event this information is protected by the Federal Confidentiality of Alcohol and Drug Abuse Patient Records regulations: The Federal rules restrict any use of the information to criminally investigate or prosecute any alcohol or drug abuse patient.[facility] HospitalIn the event this information is protected by the Federal Confidentiality of Alcohol and Drug Abuse Patient Records regulations: The Federal rules restrict any use of the information to criminally investigate or prosecute any alcohol or drug abuse patient.[facility] HospitalIn the event this information is protected by the Federal Confidentiality of Alcohol and Drug Abuse Patient Records regulations: The Federal rules restrict any use of the information to criminally investigate or prosecute any alcohol or drug abuse patient.[facility] HospitalIn the event this information is protected by the Federal Confidentiality of Alcohol and Drug Abuse Patient Records regulations: The Federal rules restrict any use of the information to criminally investigate or prosecute any alcohol or drug abuse patient.[facility] HospitalIn the event this information is protected by the Federal Confidentiality of Alcohol and Drug Abuse Patient Records regulations: The Federal rules restrict any use of the information to criminally investigate or prosecute any alcohol or drug abuse patient.[facility] HospitalIn the event this information is protected by the Federal Confidentiality of Alcohol and Drug Abuse Patient Records regulations: The Federal rules restrict any use of the information to criminally investigate or prosecute any alcohol or drug abuse patient.[facility] HospitalIn the event this information is protected by the Federal Confidentiality of Alcohol and Drug Abuse Patient Records regulations: The Federal rules restrict any use of the information to criminally investigate or prosecute any alcohol or drug abuse patient.[facility] HospitalIn the event this information is protected by the Federal Confidentiality of Alcohol and Drug Abuse Patient Records regulations: The Federal rules restrict any use of the information to criminally investigate or prosecute any alcohol or drug abuse patient.[facility] HospitalIn the event this information is protected by the Federal Confidentiality of Alcohol and Drug Abuse Patient Records regulations: The Federal rules restrict any use of the information to criminally investigate or prosecute any alcohol or drug abuse patient.[facility] HospitalIn the event this information is protected by the Federal Confidentiality of Alcohol and Drug Abuse Patient Records regulations: The Federal rules restrict any use of the information to criminally investigate or prosecute any alcohol or drug abuse patient.[facility] HospitalIn the event this information is protected by the Federal Confidentiality of Alcohol and Drug Abuse Patient Records regulations: The Federal rules restrict any use of the information to criminally investigate or prosecute any alcohol or drug abuse patient.[facility] HospitalIn the event this information is protected by the Federal Confidentiality of Alcohol and Drug Abuse Patient Records regulations: The Federal rules restrict any use of the information to criminally investigate or prosecute any alcohol or drug abuse patient.[facility] HospitalIn the event this information is protected by the Federal Confidentiality of Alcohol and Drug Abuse Patient Records regulations: The Federal rules restrict any use of the information to criminally investigate or prosecute any alcohol or drug abuse patient.[facility] HospitalIn the event this information is protected by the Federal Confidentiality of Alcohol and Drug Abuse Patient Records regulations: The Federal rules restrict any use of the information to criminally investigate or prosecute any alcohol or drug abuse patient.[facility] HospitalIn the event this information is protected by the Federal Confidentiality of Alcohol and Drug Abuse Patient Records regulations: The Federal rules restrict any use of the information to criminally investigate or prosecute any alcohol or drug abuse patient.[facility] HospitalIn the event this information is protected by the Federal Confidentiality of Alcohol and Drug Abuse Patient Records regulations: The Federal rules restrict any use of the information to criminally investigate or prosecute any alcohol or drug abuse patient.[facility] HospitalIn the event this information is protected by the Federal Confidentiality of Alcohol and Drug Abuse Patient Records regulations: The Federal rules restrict any use of the information to criminally investigate or prosecute any alcohol or drug abuse patient.[facility] HospitalIn the event this information is protected by the Federal Confidentiality of Alcohol and Drug Abuse Patient Records regulations: The Federal rules restrict any use of the information to criminally investigate or prosecute any alcohol or drug abuse patient.[facility] HospitalIn the event this information is protected by the Federal Confidentiality of Alcohol and Drug Abuse Patient Records regulations: The Federal rules restrict any use of the information to criminally investigate or prosecute any alcohol or drug abuse patient.[facility] HospitalIn the event this information is protected by the Federal Confidentiality of Alcohol and Drug Abuse Patient Records regulations: The Federal rules restrict any use of the information to criminally investigate or prosecute any alcohol or drug abuse patient.[facility] HospitalIn the event this information is protected by the Federal Confidentiality of Alcohol and Drug Abuse Patient Records regulations: The Federal rules restrict any use of the information to criminally investigate or prosecute any alcohol or drug abuse patient.[facility] HospitalIn the event this information is protected by the Federal Confidentiality of Alcohol and Drug Abuse Patient Records regulations: The Federal rules restrict any use of the information to criminally investigate or prosecute any alcohol or drug abuse patient.[facility] HospitalIn the event this information is protected by the Federal Confidentiality of Alcohol and Drug Abuse Patient Records regulations: The Federal rules restrict any use of the information to criminally investigate or prosecute any alcohol or drug abuse patient.[facility] HospitalIn the event this information is protected by the Federal Confidentiality of Alcohol and Drug Abuse Patient Records regulations: The Federal rules restrict any use of the information to criminally investigate or prosecute any alcohol or drug abuse patient.[facility] HospitalIn the event this information is protected by the Federal Confidentiality of Alcohol and Drug Abuse Patient Records regulations: The Federal rules restrict any use of the information to criminally investigate or prosecute any alcohol or drug abuse patient.[facility] HospitalIn the event this information is protected by the Federal Confidentiality of Alcohol and Drug Abuse Patient Records regulations: The Federal rules restrict any use of the information to criminally investigate or prosecute any alcohol or drug abuse patient.[facility] HospitalIn the event this information is protected by the Federal Confidentiality of Alcohol and Drug Abuse Patient Records regulations: The Federal rules restrict any use of the information to criminally investigate or prosecute any alcohol or drug abuse patient.[facility] HospitalIn the event this information is protected by the Federal Confidentiality of Alcohol and Drug Abuse Patient Records regulations: The Federal rules restrict any use of the information to criminally investigate or prosecute any alcohol or drug abuse patient.[facility] HospitalIn the event this information is protected by the Federal Confidentiality of Alcohol and Drug Abuse Patient Records regulations: The Federal rules restrict any use of the information to criminally investigate or prosecute any alcohol or drug abuse patient.[facility] HospitalIn the event this information is protected by the Federal Confidentiality of Alcohol and Drug Abuse Patient Records regulations: The Federal rules restrict any use of the information to criminally investigate or prosecute any alcohol or drug abuse patient.[facility] HospitalIn the event this information is protected by the Federal Confidentiality of Alcohol and Drug Abuse Patient Records regulations: The Federal rules restrict any use of the information to criminally investigate or prosecute any alcohol or drug abuse patient.[facility] HospitalIn the event this information is protected by the Federal Confidentiality of Alcohol and Drug Abuse Patient Records regulations: The Federal rules restrict any use of the information to criminally investigate or prosecute any alcohol or drug abuse patient.[facility] HospitalIn the event this information is protected by the Federal Confidentiality of Alcohol and Drug Abuse Patient Records regulations: The Federal rules restrict any use of the information to criminally investigate or prosecute any alcohol or drug abuse patient.[facility] HospitalIn the event this information is protected by the Federal Confidentiality of Alcohol and Drug Abuse Patient Records regulations: The Federal rules restrict any use of the information to criminally investigate or prosecute any alcohol or drug abuse patient.[facility] HospitalIn the event this information is protected by the Federal Confidentiality of Alcohol and Drug Abuse Patient Records regulations: The Federal rules restrict any use of the information to criminally investigate or prosecute any alcohol or drug abuse patient.[facility] HospitalIn the event this information is protected by the Federal Confidentiality of Alcohol and Drug Abuse Patient Records regulations: The Federal rules restrict any use of the information to criminally investigate or prosecute any alcohol or drug abuse patient.[facility] HospitalIn the event this information is protected by the Federal Confidentiality of Alcohol and Drug Abuse Patient Records regulations: The Federal rules restrict any use of the information to criminally investigate or prosecute any alcohol or drug abuse patient.[facility] HospitalIn the event this information is protected by the Federal Confidentiality of Alcohol and Drug Abuse Patient Records regulations: The Federal rules restrict any use of the information to criminally investigate or prosecute any alcohol or drug abuse patient.[facility] HospitalIn the event this information is protected by the Federal Confidentiality of Alcohol and Drug Abuse Patient Records regulations: The Federal rules restrict any use of the information to criminally investigate or prosecute any alcohol or drug abuse patient.[facility] HospitalIn the event this information is protected by the Federal Confidentiality of Alcohol and Drug Abuse Patient Records regulations: The Federal rules restrict any use of the information to criminally investigate or prosecute any alcohol or drug abuse patient.[facility] HospitalIn the event this information is protected by the Federal Confidentiality of Alcohol and Drug Abuse Patient Records regulations: The Federal rules restrict any use of the information to criminally investigate or prosecute any alcohol or drug abuse patient.[facility] HospitalIn the event this information is protected by the Federal Confidentiality of Alcohol and Drug Abuse Patient Records regulations: The Federal rules restrict any use of the information to criminally investigate or prosecute any alcohol or drug abuse patient.[facility] HospitalIn the event this information is protected by the Federal Confidentiality of Alcohol and Drug Abuse Patient Records regulations: The Federal rules restrict any use of the information to criminally investigate or prosecute any alcohol or drug abuse patient.[facility] HospitalIn the event this information is protected by the Federal Confidentiality of Alcohol and Drug Abuse Patient Records regulations: The Federal rules restrict any use of the information to criminally investigate or prosecute any alcohol or drug abuse patient.[facility] HospitalIn the event this information is protected by the Federal Confidentiality of Alcohol and Drug Abuse Patient Records regulations: The Federal rules restrict any use of the information to criminally investigate or prosecute any alcohol or drug abuse patient.[facility] HospitalIn the event this information is protected by the Federal Confidentiality of Alcohol and Drug Abuse Patient Records regulations: The Federal rules restrict any use of the information to criminally investigate or prosecute any alcohol or drug abuse patient.[facility] HospitalIn the event this information is protected by the Federal Confidentiality of Alcohol and Drug Abuse Patient Records regulations: The Federal rules restrict any use of the information to criminally investigate or prosecute any alcohol or drug abuse patient.[facility] HospitalIn the event this information is protected by the Federal Confidentiality of Alcohol and Drug Abuse Patient Records regulations: The Federal rules restrict any use of the information to criminally investigate or prosecute any alcohol or drug abuse patient.[facility] HospitalIn the event this information is protected by the Federal Confidentiality of Alcohol and Drug Abuse Patient Records regulations: The Federal rules restrict any use of the information to criminally investigate or prosecute any alcohol or drug abuse patient.[facility] HospitalIn the event this information is protected by the Federal Confidentiality of Alcohol and Drug Abuse Patient Records regulations: The Federal rules restrict any use of the information to criminally investigate or prosecute any alcohol or drug abuse patient.[facility] HospitalIn the event this information is protected by the Federal Confidentiality of Alcohol and Drug Abuse Patient Records regulations: The Federal rules restrict any use of the information to criminally investigate or prosecute any alcohol or drug abuse patient.[facility] HospitalIn the event this information is protected by the Federal Confidentiality of Alcohol and Drug Abuse Patient Records regulations: The Federal rules restrict any use of the information to criminally investigate or prosecute any alcohol or drug abuse patient.[facility]In the event this information is protected by the Federal Confidentiality of Alcohol and Drug Abuse Patient Records regulations: The Federal rules restrict any use of the information to criminally investigate or prosecute any alcohol or drug abuse patient.[facility] HospitalIn the event this information is protected by the Federal Confidentiality of Alcohol and Drug Abuse Patient Records regulations: The Federal rules restrict any use of the information to criminally investigate or prosecute any alcohol or drug abuse patient.[facility]In the event this information is protected by the Federal Confidentiality of Alcohol and Drug Abuse Patient Records regulations: The Federal rules restrict any use of the information to criminally investigate or prosecute any alcohol or drug abuse patient.[facility]In the event this information is protected by the Federal Confidentiality of Alcohol and Drug Abuse Patient Records regulations: The Federal rules restrict any use of the information to criminally investigate or prosecute any alcohol or drug abuse patient.[facility] HospitalIn the event this information is protected by the Federal Confidentiality of Alcohol and Drug Abuse Patient Records regulations: The Federal rules restrict any use of the information to criminally investigate or prosecute any alcohol or drug abuse patient.[facility] HospitalIn the event this information is protected by the Federal Confidentiality of Alcohol and Drug Abuse Patient Records regulations: The Federal rules restrict any use of the information to criminally investigate or prosecute any alcohol or drug abuse patient.[facility] HospitalIn the event this information is protected by the Federal Confidentiality of Alcohol and Drug Abuse Patient Records regulations: The Federal rules restrict any use of the information to criminally investigate or prosecute any alcohol or drug abuse patient.[facility] HospitalIn the event this information is protected by the Federal Confidentiality of Alcohol and Drug Abuse Patient Records regulations: The Federal rules restrict any use of the information to criminally investigate or prosecute any alcohol or drug abuse patient.[facility] HospitalIn the event this information is protected by the Federal Confidentiality of Alcohol and Drug Abuse Patient Records regulations: The Federal rules restrict any use of the information to criminally investigate or prosecute any alcohol or drug abuse patient.[facility] HospitalIn the event this information is protected by the Federal Confidentiality of Alcohol and Drug Abuse Patient Records regulations: The Federal rules restrict any use of the information to criminally investigate or prosecute any alcohol or drug abuse patient.[facility] HospitalIn the event this information is protected by the Federal Confidentiality of Alcohol and Drug Abuse Patient Records regulations: The Federal rules restrict any use of the information to criminally investigate or prosecute any alcohol or drug abuse patient.[facility] HospitalIn the event this information is protected by the Federal Confidentiality of Alcohol and Drug Abuse Patient Records regulations: The Federal rules restrict any use of the information to criminally investigate or prosecute any alcohol or drug abuse patient.[facility] HospitalIn the event this information is protected by the Federal Confidentiality of Alcohol and Drug Abuse Patient Records regulations: The Federal rules restrict any use of the information to criminally investigate or prosecute any alcohol or drug abuse patient.[facility] HospitalIn the event this information is protected by the Federal Confidentiality of Alcohol and Drug Abuse Patient Records regulations: The Federal rules restrict any use of the information to criminally investigate or prosecute any alcohol or drug abuse patient.[facility] HospitalIn the event this information is protected by the Federal Confidentiality of Alcohol and Drug Abuse Patient Records regulations: The Federal rules restrict any use of the information to criminally investigate or prosecute any alcohol or drug abuse patient.[facility] HospitalIn the event this information is protected by the Federal Confidentiality of Alcohol and Drug Abuse Patient Records regulations: The Federal rules restrict any use of the information to criminally investigate or prosecute any alcohol or drug abuse patient.[facility] HospitalIn the event this information is protected by the Federal Confidentiality of Alcohol and Drug Abuse Patient Records regulations: The Federal rules restrict any use of the information to criminally investigate or prosecute any alcohol or drug abuse patient.[facility] HospitalIn the event this information is protected by the Federal Confidentiality of Alcohol and Drug Abuse Patient Records regulations: The Federal rules restrict any use of the information to criminally investigate or prosecute any alcohol or drug abuse patient.[facility] HospitalIn the event this information is protected by the Federal Confidentiality of Alcohol and Drug Abuse Patient Records regulations: The Federal rules restrict any use of the information to criminally investigate or prosecute any alcohol or drug abuse patient.[facility] HospitalIn the event this information is protected by the Federal Confidentiality of Alcohol and Drug Abuse Patient Records regulations: The Federal rules restrict any use of the information to criminally investigate or prosecute any alcohol or drug abuse patient.[facility] HospitalIn the event this information is protected by the Federal Confidentiality of Alcohol and Drug Abuse Patient Records regulations: The Federal rules restrict any use of the information to criminally investigate or prosecute any alcohol or drug abuse patient.[facility] HospitalIn the event this information is protected by the Federal Confidentiality of Alcohol and Drug Abuse Patient Records regulations: The Federal rules restrict any use of the information to criminally investigate or prosecute any alcohol or drug abuse patient.[facility] HospitalIn the event this information is protected by the Federal Confidentiality of Alcohol and Drug Abuse Patient Records regulations: The Federal rules restrict any use of the information to criminally investigate or prosecute any alcohol or drug abuse patient.[facility] HospitalIn the event this information is protected by the Federal Confidentiality of Alcohol and Drug Abuse Patient Records regulations: The Federal rules restrict any use of the information to criminally investigate or prosecute any alcohol or drug abuse patient.[facility] HospitalIn the event this information is protected by the Federal Confidentiality of Alcohol and Drug Abuse Patient Records regulations: The Federal rules restrict any use of the information to criminally investigate or prosecute any alcohol or drug abuse patient.[facility] HospitalIn the event this information is protected by the Federal Confidentiality of Alcohol and Drug Abuse Patient Records regulations: The Federal rules restrict any use of the information to criminally investigate or prosecute any alcohol or drug abuse patient.[facility] HospitalIn the event this information is protected by the Federal Confidentiality of Alcohol and Drug Abuse Patient Records regulations: The Federal rules restrict any use of the information to criminally investigate or prosecute any alcohol or drug abuse patient.[facility] HospitalIn the event this information is protected by the Federal Confidentiality of Alcohol and Drug Abuse Patient Records regulations: The Federal rules restrict any use of the information to criminally investigate or prosecute any alcohol or drug abuse patient.[facility] HospitalIn the event this information is protected by the Federal Confidentiality of Alcohol and Drug Abuse Patient Records regulations: The Federal rules restrict any use of the information to criminally investigate or prosecute any alcohol or drug abuse patient.[facility] HospitalIn the event this information is protected by the Federal Confidentiality of Alcohol and Drug Abuse Patient Records regulations: The Federal rules restrict any use of the information to criminally investigate or prosecute any alcohol or drug abuse patient.[facility] HospitalIn the event this information is protected by the Federal Confidentiality of Alcohol and Drug Abuse Patient Records regulations: The Federal rules restrict any use of the information to criminally investigate or prosecute any alcohol or drug abuse patient.[facility] HospitalIn the event this information is protected by the Federal Confidentiality of Alcohol and Drug Abuse Patient Records regulations: The Federal rules restrict any use of the information to criminally investigate or prosecute any alcohol or drug abuse patient.[facility] HospitalIn the event this information is protected by the Federal Confidentiality of Alcohol and Drug Abuse Patient Records regulations: The Federal rules restrict any use of the information to criminally investigate or prosecute any alcohol or drug abuse patient.[facility] HospitalIn the event this information is protected by the Federal Confidentiality of Alcohol and Drug Abuse Patient Records regulations: The Federal rules restrict any use of the information to criminally investigate or prosecute any alcohol or drug abuse patient.[facility] HospitalIn the event this information is protected by the Federal Confidentiality of Alcohol and Drug Abuse Patient Records regulations: The Federal rules restrict any use of the information to criminally investigate or prosecute any alcohol or drug abuse patient.[facility] HospitalIn the event this information is protected by the Federal Confidentiality of Alcohol and Drug Abuse Patient Records regulations: The Federal rules restrict any use of the information to criminally investigate or prosecute any alcohol or drug abuse patient.[facility] HospitalIn the event this information is protected by the Federal Confidentiality of Alcohol and Drug Abuse Patient Records regulations: The Federal rules restrict any use of the information to criminally investigate or prosecute any alcohol or drug abuse patient.[facility] HospitalIn the event this information is protected by the Federal Confidentiality of Alcohol and Drug Abuse Patient Records regulations: The Federal rules restrict any use of the information to criminally investigate or prosecute any alcohol or drug abuse patient.[facility] HospitalIn the event this information is protected by the Federal Confidentiality of Alcohol and Drug Abuse Patient Records regulations: The Federal rules restrict any use of the information to criminally investigate or prosecute any alcohol or drug abuse patient.[facility] HospitalIn the event this information is protected by the Federal Confidentiality of Alcohol and Drug Abuse Patient Records regulations: The Federal rules restrict any use of the information to criminally investigate or prosecute any alcohol or drug abuse patient.[facility] HospitalIn the event this information is protected by the Federal Confidentiality of Alcohol and Drug Abuse Patient Records regulations: The Federal rules restrict any use of the information to criminally investigate or prosecute any alcohol or drug abuse patient.[facility] HospitalIn the event this information is protected by the Federal Confidentiality of Alcohol and Drug Abuse Patient Records regulations: The Federal rules restrict any use of the information to criminally investigate or prosecute any alcohol or drug abuse patient.[facility] HospitalIn the event this information is protected by the Federal Confidentiality of Alcohol and Drug Abuse Patient Records regulations: The Federal rules restrict any use of the information to criminally investigate or prosecute any alcohol or drug abuse patient.[facility] HospitalIn the event this information is protected by the Federal Confidentiality of Alcohol and Drug Abuse Patient Records regulations: The Federal rules restrict any use of the information to criminally investigate or prosecute any alcohol or drug abuse patient.[facility] HospitalIn the event this information is protected by the Federal Confidentiality of Alcohol and Drug Abuse Patient Records regulations: The Federal rules restrict any use of the information to criminally investigate or prosecute any alcohol or drug abuse patient.[facility] HospitalIn the event this information is protected by the Federal Confidentiality of Alcohol and Drug Abuse Patient Records regulations: The Federal rules restrict any use of the information to criminally investigate or prosecute any alcohol or drug abuse patient.[facility] HospitalIn the event this information is protected by the Federal Confidentiality of Alcohol and Drug Abuse Patient Records regulations: The Federal rules restrict any use of the information to criminally investigate or prosecute any alcohol or drug abuse patient.[facility] HospitalIn the event this information is protected by the Federal Confidentiality of Alcohol and Drug Abuse Patient Records regulations: The Federal rules restrict any use of the information to criminally investigate or prosecute any alcohol or drug abuse patient.[facility] HospitalIn the event this information is protected by the Federal Confidentiality of Alcohol and Drug Abuse Patient Records regulations: The Federal rules restrict any use of the information to criminally investigate or prosecute any alcohol or drug abuse patient.[facility] HospitalIn the event this information is protected by the Federal Confidentiality of Alcohol and Drug Abuse Patient Records regulations: The Federal rules restrict any use of the information to criminally investigate or prosecute any alcohol or drug abuse patient.[facility] HospitalIn the event this information is protected by the Federal Confidentiality of Alcohol and Drug Abuse Patient Records regulations: The Federal rules restrict any use of the information to criminally investigate or prosecute any alcohol or drug abuse patient.[facility] HospitalIn the event this information is protected by the Federal Confidentiality of Alcohol and Drug Abuse Patient Records regulations: The Federal rules restrict any use of the information to criminally investigate or prosecute any alcohol or drug abuse patient.[facility] HospitalIn the event this information is protected by the Federal Confidentiality of Alcohol and Drug Abuse Patient Records regulations: The Federal rules restrict any use of the information to criminally investigate or prosecute any alcohol or drug abuse patient.[facility] HospitalIn the event this information is protected by the Federal Confidentiality of Alcohol and Drug Abuse Patient Records regulations: The Federal rules restrict any use of the information to criminally investigate or prosecute any alcohol or drug abuse patient.[facility] HospitalIn the event this information is protected by the Federal Confidentiality of Alcohol and Drug Abuse Patient Records regulations: The Federal rules restrict any use of the information to criminally investigate or prosecute any alcohol or drug abuse patient.[facility] HospitalIn the event this information is protected by the Federal Confidentiality of Alcohol and Drug Abuse Patient Records regulations: The Federal rules restrict any use of the information to criminally investigate or prosecute any alcohol or drug abuse patient.[facility] HospitalIn the event this information is protected by the Federal Confidentiality of Alcohol and Drug Abuse Patient Records regulations: The Federal rules restrict any use of the information to criminally investigate or prosecute any alcohol or drug abuse patient.[facility] HospitalIn the event this information is protected by the Federal Confidentiality of Alcohol and Drug Abuse Patient Records regulations: The Federal rules restrict any use of the information to criminally investigate or prosecute any alcohol or drug abuse patient.[facility] HospitalIn the event this information is protected by the Federal Confidentiality of Alcohol and Drug Abuse Patient Records regulations: The Federal rules restrict any use of the information to criminally investigate or prosecute any alcohol or drug abuse patient.[facility] HospitalIn the event this information is protected by the Federal Confidentiality of Alcohol and Drug Abuse Patient Records regulations: The Federal rules restrict any use of the information to criminally investigate or prosecute any alcohol or drug abuse patient.[facility] HospitalIn the event this information is protected by the Federal Confidentiality of Alcohol and Drug Abuse Patient Records regulations: The Federal rules restrict any use of the information to criminally investigate or prosecute any alcohol or drug abuse patient.[facility] HospitalIn the event this information is protected by the Federal Confidentiality of Alcohol and Drug Abuse Patient Records regulations: The Federal rules restrict any use of the information to criminally investigate or prosecute any alcohol or drug abuse patient.[facility] HospitalIn the event this information is protected by the Federal Confidentiality of Alcohol and Drug Abuse Patient Records regulations: The Federal rules restrict any use of the information to criminally investigate or prosecute any alcohol or drug abuse patient.[facility] HospitalIn the event this information is protected by the Federal Confidentiality of Alcohol and Drug Abuse Patient Records regulations: The Federal rules restrict any use of the information to criminally investigate or prosecute any alcohol or drug abuse patient.[facility] HospitalIn the event this information is protected by the Federal Confidentiality of Alcohol and Drug Abuse Patient Records regulations: The Federal rules restrict any use of the information to criminally investigate or prosecute any alcohol or drug abuse patient.[facility] HospitalIn the event this information is protected by the Federal Confidentiality of Alcohol and Drug Abuse Patient Records regulations: The Federal rules restrict any use of the information to criminally investigate or prosecute any alcohol or drug abuse patient.[facility] HospitalIn the event this information is protected by the Federal Confidentiality of Alcohol and Drug Abuse Patient Records regulations: The Federal rules restrict any use of the information to criminally investigate or prosecute any alcohol or drug abuse patient.[facility] HospitalIn the event this information is protected by the Federal Confidentiality of Alcohol and Drug Abuse Patient Records regulations: The Federal rules restrict any use of the information to criminally investigate or prosecute any alcohol or drug abuse patient.[facility] HospitalIn the event this information is protected by the Federal Confidentiality of Alcohol and Drug Abuse Patient Records regulations: The Federal rules restrict any use of the information to criminally investigate or prosecute any alcohol or drug abuse patient.[facility] HospitalIn the event this information is protected by the Federal Confidentiality of Alcohol and Drug Abuse Patient Records regulations: The Federal rules restrict any use of the information to criminally investigate or prosecute any alcohol or drug abuse patient.[facility] HospitalIn the event this information is protected by the Federal Confidentiality of Alcohol and Drug Abuse Patient Records regulations: The Federal rules restrict any use of the information to criminally investigate or prosecute any alcohol or drug abuse patient.[facility] HospitalIn the event this information is protected by the Federal Confidentiality of Alcohol and Drug Abuse Patient Records regulations: The Federal rules restrict any use of the information to criminally investigate or prosecute any alcohol or drug abuse patient.[facility] HospitalIn the event this information is protected by the Federal Confidentiality of Alcohol and Drug Abuse Patient Records regulations: The Federal rules restrict any use of the information to criminally investigate or prosecute any alcohol or drug abuse patient.[facility] HospitalIn the event this information is protected by the Federal Confidentiality of Alcohol and Drug Abuse Patient Records regulations: The Federal rules restrict any use of the information to criminally investigate or prosecute any alcohol or drug abuse patient.[facility] HospitalIn the event this information is protected by the Federal Confidentiality of Alcohol and Drug Abuse Patient Records regulations: The Federal rules restrict any use of the information to criminally investigate or prosecute any alcohol or drug abuse patient.[facility] HospitalIn the event this information is protected by the Federal Confidentiality of Alcohol and Drug Abuse Patient Records regulations: The Federal rules restrict any use of the information to criminally investigate or prosecute any alcohol or drug abuse patient.[facility] HospitalIn the event this information is protected by the Federal Confidentiality of Alcohol and Drug Abuse Patient Records regulations: The Federal rules restrict any use of the information to criminally investigate or prosecute any alcohol or drug abuse patient.[facility]In the event this information is protected by the Federal Confidentiality of Alcohol and Drug Abuse Patient Records regulations: The Federal rules restrict any use of the information to criminally investigate or prosecute any alcohol or drug abuse patient.[facility]In the event this information is protected by the Federal Confidentiality of Alcohol and Drug Abuse Patient Records regulations: The Federal rules restrict any use of the information to criminally investigate or prosecute any alcohol or drug abuse patient.[facility] HospitalIn the event this information is protected by the Federal Confidentiality of Alcohol and Drug Abuse Patient Records regulations: The Federal rules restrict any use of the information to criminally investigate or prosecute any alcohol or drug abuse patient.[facility] HospitalIn the event this information is protected by the Federal Confidentiality of Alcohol and Drug Abuse Patient Records regulations: The Federal rules restrict any use of the information to criminally investigate or prosecute any alcohol or drug abuse patient.[facility] HospitalIn the event this information is protected by the Federal Confidentiality of Alcohol and Drug Abuse Patient Records regulations: The Federal rules restrict any use of the information to criminally investigate or prosecute any alcohol or drug abuse patient.[facility] HospitalIn the event this information is protected by the Federal Confidentiality of Alcohol and Drug Abuse Patient Records regulations: The Federal rules restrict any use of the information to criminally investigate or prosecute any alcohol or drug abuse patient.[facility] HospitalIn the event this information is protected by the Federal Confidentiality of Alcohol and Drug Abuse Patient Records regulations: The Federal rules restrict any use of the information to criminally investigate or prosecute any alcohol or drug abuse patient.[facility] HospitalIn the event this information is protected by the Federal Confidentiality of Alcohol and Drug Abuse Patient Records regulations: The Federal rules restrict any use of the information to criminally investigate or prosecute any alcohol or drug abuse patient.[facility] HospitalIn the event this information is protected by the Federal Confidentiality of Alcohol and Drug Abuse Patient Records regulations: The Federal rules restrict any use of the information to criminally investigate or prosecute any alcohol or drug abuse patient.[facility] HospitalIn the event this information is protected by the Federal Confidentiality of Alcohol and Drug Abuse Patient Records regulations: The Federal rules restrict any use of the information to criminally investigate or prosecute any alcohol or drug abuse patient.[facility] HospitalIn the event this information is protected by the Federal Confidentiality of Alcohol and Drug Abuse Patient Records regulations: The Federal rules restrict any use of the information to criminally investigate or prosecute any alcohol or drug abuse patient.[facility] HospitalIn the event this information is protected by the Federal Confidentiality of Alcohol and Drug Abuse Patient Records regulations: The Federal rules restrict any use of the information to criminally investigate or prosecute any alcohol or drug abuse patient.[facility] HospitalIn the event this information is protected by the Federal Confidentiality of Alcohol and Drug Abuse Patient Records regulations: The Federal rules restrict any use of the information to criminally investigate or prosecute any alcohol or drug abuse patient.[facility] HospitalIn the event this information is protected by the Federal Confidentiality of Alcohol and Drug Abuse Patient Records regulations: The Federal rules restrict any use of the information to criminally investigate or prosecute any alcohol or drug abuse patient.[facility] HospitalIn the event this information is protected by the Federal Confidentiality of Alcohol and Drug Abuse Patient Records regulations: The Federal rules restrict any use of the information to criminally investigate or prosecute any alcohol or drug abuse patient.[facility] HospitalIn the event this information is protected by the Federal Confidentiality of Alcohol and Drug Abuse Patient Records regulations: The Federal rules restrict any use of the information to criminally investigate or prosecute any alcohol or drug abuse patient.[facility] HospitalIn the event this information is protected by the Federal Confidentiality of Alcohol and Drug Abuse Patient Records regulations: The Federal rules restrict any use of the information to criminally investigate or prosecute any alcohol or drug abuse patient.[facility] HospitalIn the event this information is protected by the Federal Confidentiality of Alcohol and Drug Abuse Patient Records regulations: The Federal rules restrict any use of the information to criminally investigate or prosecute any alcohol or drug abuse patient.[facility] HospitalIn the event this information is protected by the Federal Confidentiality of Alcohol and Drug Abuse Patient Records regulations: The Federal rules restrict any use of the information to criminally investigate or prosecute any alcohol or drug abuse patient.[facility] HospitalIn the event this information is protected by the Federal Confidentiality of Alcohol and Drug Abuse Patient Records regulations: The Federal rules restrict any use of the information to criminally investigate or prosecute any alcohol or drug abuse patient.[facility] HospitalIn the event this information is protected by the Federal Confidentiality of Alcohol and Drug Abuse Patient Records regulations: The Federal rules restrict any use of the information to criminally investigate or prosecute any alcohol or drug abuse patient.[facility] HospitalIn the event this information is protected by the Federal Confidentiality of Alcohol and Drug Abuse Patient Records regulations: The Federal rules restrict any use of the information to criminally investigate or prosecute any alcohol or drug abuse patient.[facility] HospitalIn the event this information is protected by the Federal Confidentiality of Alcohol and Drug Abuse Patient Records regulations: The Federal rules restrict any use of the information to criminally investigate or prosecute any alcohol or drug abuse patient.[facility] HospitalIn the event this information is protected by the Federal Confidentiality of Alcohol and Drug Abuse Patient Records regulations: The Federal rules restrict any use of the information to criminally investigate or prosecute any alcohol or drug abuse patient.[facility] HospitalIn the event this information is protected by the Federal Confidentiality of Alcohol and Drug Abuse Patient Records regulations: The Federal rules restrict any use of the information to criminally investigate or prosecute any alcohol or drug abuse patient.[facility] HospitalIn the event this information is protected by the Federal Confidentiality of Alcohol and Drug Abuse Patient Records regulations: The Federal rules restrict any use of the information to criminally investigate or prosecute any alcohol or drug abuse patient.[facility] HospitalIn the event this information is protected by the Federal Confidentiality of Alcohol and Drug Abuse Patient Records regulations: The Federal rules restrict any use of the information to criminally investigate or prosecute any alcohol or drug abuse patient.[facility] HospitalIn the event this information is protected by the Federal Confidentiality of Alcohol and Drug Abuse Patient Records regulations: The Federal rules restrict any use of the information to criminally investigate or prosecute any alcohol or drug abuse patient.[facility] HospitalIn the event this information is protected by the Federal Confidentiality of Alcohol and Drug Abuse Patient Records regulations: The Federal rules restrict any use of the information to criminally investigate or prosecute any alcohol or drug abuse patient.[facility] HospitalIn the event this information is protected by the Federal Confidentiality of Alcohol and Drug Abuse Patient Records regulations: The Federal rules restrict any use of the information to criminally investigate or prosecute any alcohol or drug abuse patient.[facility] HospitalIn the event this information is protected by the Federal Confidentiality of Alcohol and Drug Abuse Patient Records regulations: The Federal rules restrict any use of the information to criminally investigate or prosecute any alcohol or drug abuse patient.[facility] HospitalIn the event this information is protected by the Federal Confidentiality of Alcohol and Drug Abuse Patient Records regulations: The Federal rules restrict any use of the information to criminally investigate or prosecute any alcohol or drug abuse patient.[facility] HospitalIn the event this information is protected by the Federal Confidentiality of Alcohol and Drug Abuse Patient Records regulations: The Federal rules restrict any use of the information to criminally investigate or prosecute any alcohol or drug abuse patient.[facility] HospitalIn the event this information is protected by the Federal Confidentiality of Alcohol and Drug Abuse Patient Records regulations: The Federal rules restrict any use of the information to criminally investigate or prosecute any alcohol or drug abuse patient.[facility] HospitalIn the event this information is protected by the Federal Confidentiality of Alcohol and Drug Abuse Patient Records regulations: The Federal rules restrict any use of the information to criminally investigate or prosecute any alcohol or drug abuse patient.[facility] HospitalIn the event this information is protected by the Federal Confidentiality of Alcohol and Drug Abuse Patient Records regulations: The Federal rules restrict any use of the information to criminally investigate or prosecute any alcohol or drug abuse patient.[facility] HospitalIn the event this information is protected by the Federal Confidentiality of Alcohol and Drug Abuse Patient Records regulations: The Federal rules restrict any use of the information to criminally investigate or prosecute any alcohol or drug abuse patient.[facility] HospitalIn the event this information is protected by the Federal Confidentiality of Alcohol and Drug Abuse Patient Records regulations: The Federal rules restrict any use of the information to criminally investigate or prosecute any alcohol or drug abuse patient.[facility] HospitalIn the event this information is protected by the Federal Confidentiality of Alcohol and Drug Abuse Patient Records regulations: The Federal rules restrict any use of the information to criminally investigate or prosecute any alcohol or drug abuse patient.[facility] HospitalIn the event this information is protected by the Federal Confidentiality of Alcohol and Drug Abuse Patient Records regulations: The Federal rules restrict any use of the information to criminally investigate or prosecute any alcohol or drug abuse patient.[facility] HospitalIn the event this information is protected by the Federal Confidentiality of Alcohol and Drug Abuse Patient Records regulations: The Federal rules restrict any use of the information to criminally investigate or prosecute any alcohol or drug abuse patient.[facility] HospitalIn the event this information is protected by the Federal Confidentiality of Alcohol and Drug Abuse Patient Records regulations: The Federal rules restrict any use of the information to criminally investigate or prosecute any alcohol or drug abuse patient.[facility] HospitalIn the event this information is protected by the Federal Confidentiality of Alcohol and Drug Abuse Patient Records regulations: The Federal rules restrict any use of the information to criminally investigate or prosecute any alcohol or drug abuse patient.[facility] HospitalIn the event this information is protected by the Federal Confidentiality of Alcohol and Drug Abuse Patient Records regulations: The Federal rules restrict any use of the information to criminally investigate or prosecute any alcohol or drug abuse patient.[facility] HospitalIn the event this information is protected by the Federal Confidentiality of Alcohol and Drug Abuse Patient Records regulations: The Federal rules restrict any use of the information to criminally investigate or prosecute any alcohol or drug abuse patient.[facility] HospitalIn the event this information is protected by the Federal Confidentiality of Alcohol and Drug Abuse Patient Records regulations: The Federal rules restrict any use of the information to criminally investigate or prosecute any alcohol or drug abuse patient.[facility] HospitalIn the event this information is protected by the Federal Confidentiality of Alcohol and Drug Abuse Patient Records regulations: The Federal rules restrict any use of the information to criminally investigate or prosecute any alcohol or drug abuse patient.[facility] HospitalIn the event this information is protected by the Federal Confidentiality of Alcohol and Drug Abuse Patient Records regulations: The Federal rules restrict any use of the information to criminally investigate or prosecute any alcohol or drug abuse patient.[facility] HospitalIn the event this information is protected by the Federal Confidentiality of Alcohol and Drug Abuse Patient Records regulations: The Federal rules restrict any use of the information to criminally investigate or prosecute any alcohol or drug abuse patient.[facility] HospitalIn the event this information is protected by the Federal Confidentiality of Alcohol and Drug Abuse Patient Records regulations: The Federal rules restrict any use of the information to criminally investigate or prosecute any alcohol or drug abuse patient.[facility] HospitalIn the event this information is protected by the Federal Confidentiality of Alcohol and Drug Abuse Patient Records regulations: The Federal rules restrict any use of the information to criminally investigate or prosecute any alcohol or drug abuse patient.[facility] HospitalIn the event this information is protected by the Federal Confidentiality of Alcohol and Drug Abuse Patient Records regulations: The Federal rules restrict any use of the information to criminally investigate or prosecute any alcohol or drug abuse patient.[facility] HospitalIn the event this information is protected by the Federal Confidentiality of Alcohol and Drug Abuse Patient Records regulations: The Federal rules restrict any use of the information to criminally investigate or prosecute any alcohol or drug abuse patient.[facility] HospitalIn the event this information is protected by the Federal Confidentiality of Alcohol and Drug Abuse Patient Records regulations: The Federal rules restrict any use of the information to criminally investigate or prosecute any alcohol or drug abuse patient.[facility] HospitalIn the event this information is protected by the Federal Confidentiality of Alcohol and Drug Abuse Patient Records regulations: The Federal rules restrict any use of the information to criminally investigate or prosecute any alcohol or drug abuse patient.[facility] Reason for Visit (unrecogniz ed section and content) Reason Comments Consult Diarrhea Reason Comments Chest Pain ongoing pain rated [...] CT Specialty Diagnoses / Procedures Referred By Contac t Referred To Contact CT IMAGING Diagnoses Dizziness Syncope, unspecified syncope type Hydrocephalus, adult (HCC) Other hydrocephalus (HCC) Procedures CT BRAIN WO IVCON CT HEAD/BRAIN W/O CONTRAST MATERIAL Ganga Nunez MD [address] [place] [address] Ct Imaging Referral ID Status Reason Start Date Expiration Date V isits Requested Visits Authorized [id number] Closed Auto-Generate d Referral 01/24/2022 03/25/2022 1 1 Reason Comments Future Appointment New Patient, [place], Any Reason Comments New Patient Specialty Diagnoses / Procedures Referred By Contac t Referred To Contact Neurology Diagnoses Hydrocephalus, adult (HCC) Procedures CONSULT TO NEUROLOGY OFFICE/OUTPATIENT NEW HIGH MDM 60-74 MINUTES Ganga Nunez MD [address] [place] [address] Referral ID Status Reason Start Date Expiration Date V isits Requested Visits Authorized [id number] Closed PCP Requested Referral 01/24/2022 01/24/2023 1 1 Specialty Diagnoses / Procedures Referred By Contac t Referred To Contact MR IMAGING Diagnoses Nonruptured cerebral aneurysm Procedures MRA BRAIN WO IVCON MRA, HEAD W/O CONTRAST Reynaldo Ruelas APRN.[employer] [address] [place] [address] Mr Imaging Referral ID Status Reason Start Date Expiration Date V isits Requested Visits Authorized [id number] Closed Auto-Generate d Referral 02/07/2022 04/13/2022 1 1 Specialty Diagnoses / Procedures Referred By Contac t Referred To Contact MR IMAGING Diagnoses Other hydrocephalus (HCC) Procedures MRI BRAIN WO IVCON MRI BRAIN BRAIN STEM W/O CONTRAST MATERIAL Nadira Springer PA-C [address] [place] [address] Mr Imaging Referral ID Status Reason Start Date Expiration Date V isits Requested Visits Authorized [id number] Closed Auto-Generat ed Referral Clearance Not Met - Admin/Chairm an/Director Advise to Postpone/Res chedule or Not Proceed 02/17/2022 04/18/2022 1 1 Reason Comments Reason Comments Results Reason Comments Consult allergy Specialty Diagnoses / Procedures Referred By Contac t Referred To Contact Allergy Diagnoses Allergy, initial encounter Procedures CONSULT TO ALLERGY/IMMUNOLOGY OFFICE/OUTPATIENT [facility] 60-74 MINUTES Ganga Nunez MD [address] [place] [address] Referral ID Status Reason Start Date Expiration Date V isits Requested Visits Authorized [id number] Closed PCP Requested Referral 01/24/2022 01/24/2023 1 1 Specialty Diagnoses / Procedures Referred By Contac t Referred To Contact CT IMAGING Diagnoses Lung nodules Procedures CT CHEST WO IVCON CAT SCAN OF CHEST Scott Quarles MD [address] [place] [address] Ct Imaging Referral ID Status Reason Start Date Expiration Date V isits Requested Visits Authorized [id number] Closed Auto-Generate d Referral 03/06/2022 04/18/2022 1 1 Reason Comments Spirometry Specialty Diagnoses / Procedures Referred By Contac t Referred To Contact [facility] Diagnoses Post-COVID chronic dyspnea Procedures OXIMETRY WITH AMBULATION NONINVASIVE EAR/PULSE OXIMETRY MULTIPLE DETER Scott Quarles MD [address] [place] [address] [facility] [address] [place] [address] Referral ID Status Reason Start Date Expiration Date V isits Requested Visits Authorized [id number] Closed Auto-Generate d Referral 11/04/2021 12/04/2022 1 [...] knees [M17.0] Procedures NEW RS PT SPINE Jovani Franz MD [address] [facility] [address] [place] [address] Barbra Philip, PT Referral ID Status Reason Start Date Expiration Date V isits Requested Visits Authorized [id number] Authorized 11/09/2022 09/02/2023 20 20 Reason Comments Back Pain Reason Comments Established Patient post covid chronic d yspnea Reason Comments Physical Therapy Specialty Diagnoses / Procedures Referred By Contac t Referred To Contact Physical Therapy / PHYSICAL THERAPY Diagnoses Spinal stenosis, lumbar region, without neurogenic claudication [M48.061] Primary osteoarthritis of both knees [M17.0] Procedures NEW RS PT SPINE Jovani Franz MD [address] [facility] [address] [place] [address] Barbra Philip, PT Reason Comments Consult Pain management Specialty Diagnoses / Procedures Referred By Contac t Referred To Contact Diagnoses Primary osteoarthritis of right hip Procedures ARTHROCENTESIS ASPIR&/INJ MAJOR JT/BURSA W/O US INJECT HIP RIGHT [place] Interventional Radiology [address] [facility] [address] Referral ID Status Reason Start Date Expiration Date Visits Re quested Visits Authorized [id number] 1 1 Reason Comments New Patient Joint pain in hips, lower back, legs Specialty Diagnoses / Procedures Referred By Contac t Referred To Contact Rheumatology Diagnoses Polyarthralgia Fibromyalgia Procedures CONSULT TO RHEUM/IMMUN DISEASE OFFICE/OUTPATIENT NEW HIGH MDM 60-74 MINUTES Chidi Gao R, DO [address] [place] [address] Medardo Rivera MD [address] [facility] [address] [place] [address] Referral ID Status Reason Start Date Expiration Date V isits Requested Visits Authorized [id number] Closed PCP Requested Referral 11/13/2022 02/11/2023 1 [...] WO IVCON DIAGNOSTIC COMPUTED TOMOGRAPHY THORAX W/O CNTScott Gonzalez MD [address] [place] [address] [place] [address] Referral ID Status Reason Start Date Expiration Date V isits Requested Visits Authorized [id number] Closed Auto-Generate d Referral 03/16/2023 09/12/2023 1 1 Reason Comments Outside Imagain Reason Comments pre-op Forms Reason Comments Ear Pain Bilateral ear pain, sinus, congestion, ST and fever x 3 days Reason Comments Outside [id number] Ordered Outside Cardio Reason Onset Date Comments Refill Request 08/21/2023 Reason Comments Pre-Op Exam Reason Comments Outside Echo Reason Comments outside cardiac Reason Comments External / [facility] L Shoulder Reason Comments External / [facility] Reason Comments Eye Problem Bilateral eye rednes s, vaginal discharge x 1 day Reason Comments Urinary Problem Back pain and discha rge x5 days Reason Comments Pre-Op Exam Reason Comments Follow Up Reason Comments Medication Problem Reason Onset Date Comments Refill Request 03/05/2024 Reason Comments Recheck Blood pressure Reason Comments Edema Swelling in legs, fe et and hands X 2 months Reason Comments Outside Cardiology Labs Reason Onset Date Comments Refill Request 04/08/2024 Reason Comments UTI s/s Reason Comments Urinary Frequency strong urine odor x 2 weeks Reason Comments Rheumatoid Arthritis Reason Comments Patient Update Reason Comments ER F/U Specialty Diagnoses / Procedures Referred By Contac t Referred To Contact Radiology / [facility] Diagnoses URI, acute [J06 Procedures XR CHEST Ganga Nunez MD [address] [place] [address] [facility] [address] [place] [address] Referral ID Status Reason Start Date Expiration Date Visits Re quested Visits Authorized [id number] Closed 05/19/2021 09/02/2021 1 1 Reason Comments Results Specialty Diagnoses / Procedures Referred By Contac t Referred To Contact [facility] Diagnoses Post-COVID chronic dyspnea Procedures SPIROMETRY - BASELINE AND POST DILATOR BRNCDILAT RSPSE SPMTRY PRE&POST-BRNCDILAT ADMScott Tyson MD [address] [place] [id number] [facility] [address] [place] [id number] Referral ID Status Reason Start Date Expiration Date V isits Requested Visits Authorized [id number] Closed Auto-Generate d Referral 06/08/2024 07/08/2025 1 1 Specialty Diagnoses / Procedures [facility] Diagnoses Post-COVID chronic dyspnea Procedures OXIMETRY WITH AMBULATION NONINVASIVE EAR/PULSE OXIMETRY MULTIPLE Scott Galeas MD [address] [place] [address] [facility] [address] [place] [address] Referral ID Status Reason Start Date Expiration Date V isits Requested Visits Authorized [id number] Closed Auto-Generate d Referral 06/08/2024 07/08/2025 1 1 Reason Comments Radiology [place] Specialty Diagnoses / Procedures Referred By Contac t Referred To Contact US IMAGING Diagnoses Elevated alkaline phosphatase level Procedures US ABD RIGHT UPPER QUADRANT US ABDOMINAL REAL TIME W/IMAGE LIMITED Selam Argueta APRN.[employer] [address] [place] [address] [place] [address] Referral ID Status Reason Start Date Expiration Date V isits Requested Visits Authorized [id number] Closed Auto-Generate d Referral 06/06/2024 07/06/2025 1 1 Reason Comments Radiology [place] Specialty Diagnoses / Procedures Referred By Contac t Referred To Contact MOLECULAR [facility] FUNCTIONAL IMAGING Diagnoses Elevated alkaline phosphatase level Procedures NM BONE WHOLE BODY BONE &/JOINT IMAGING WHOLE BODY Selam Argueta, ENVIRONMENTAL PROFESSIONAL.ELEVATOR CONSTRUCTOR HYDRAULIC [address] [place] [address] Molecular & Functional Imaging [address] [place] [address] Referral ID Status Reason Start Date Expiration Date V isits Requested Visits Authorized [id number] Closed Auto-Generate d Referral 06/06/2024 07/06/2025 1 1 Specialty Diagnoses / Procedures Referred By Contac t Referred To Contact [facility] Diagnoses SOB (shortness of breath) Procedures NITRIC OXIDE, EXHALED NITRIC OXIDE GAS DETERMINATION Scott Quarles MD [address] [phone] [facility] [place] [address] [place], [place] [id number] Referral ID Status Reason Start Date Expiration Date Visits Requested Visits Authorized [id number] Pending Review Auto-Generat ed Referral 07/17/2025 1 1 Reason Comments Recheck SOB Shortness of Breath Reason Comments Outside Cardiology Reason Comments Patient Update Pressure changes Reason Comments Urinary Problem burning with urinati on and pelvic pressure x 2 weeks Reason Comments Joint Pain Reason Comments Follow Up Specialty Diagnoses / Procedures Referred By Contac t Referred To Contact Family Medicine / FAMILY MEDICINE Diagnoses Hernia possible hernia Procedures OFFICE/OUTPATIENT ESTABLISHED MOD MDM 30 MIN 4C EST Self Ganga Nunez MD [address] [place] [phone] Referral ID Status Reason Start Date Expiration Date Visits Re quested Visits Authorized [id number] Closed 07/15/2024 09/02/2024 1 1 Specialty Diagnoses / Procedures Referred By Contac t Referred To Contact CT [facility] Diagnoses LLQ pain RLQ abdominal pain PCB (post coital bleeding) Infection in abdomen (HCC) Procedures CT ABD/PEL W IVCON CT ABD & PELVIS W/CONTRAST Ganga Nunez MD [address] [place] [address] [place] [address] Referral ID Status Reason Start Date Expiration Date V isits Requested Visits Authorized [id number] Closed Auto-Generat ed Referral Patient Cleared - Admin/Chairm an/Director advise to proceed or did not respond 07/16/2024 09/02/2024 2 2 Reason Comments Vaginal Problem Specialty Diagnoses / Procedures Referred By Contac t Referred To Contact Gynecology Diagnoses Vaginal odor PCB (post coital bleeding) Procedures CONSULT TO GYNECOLOGY OFFICE/OUTPATIENT [facility] 60 MINUTES Ganga Nunez MD [address] [place] [address] Referral ID Status Reason Start Date Expiration Date V isits Requested Visits Authorized [id number] Closed PCP Requested Referral Auto-Generated Referral 07/15/2024 07/15/2025 1 1 Reason Comments Outside [id number] Ordered Reason Comments Vulvar Biopsy Reason Onset Date Comments Refill Request 08/01/2024 Reason Comments Craniologist - Other Reason Comments Consult Urinary Urgency Specialty Diagnoses / Procedures Referred By Contac t Referred To Contact Urology / UROLOGY Diagnoses Urinary urgency Urinary urgency [R39.15] Procedures NEW UROL Ganga Nunez MD [address] [place] [address] Shilpi Borrero, KALEIGH.ELEVATOR CONSTRUCTOR HYDRAULIC, DNP [address] [place] [address] Referral ID Status Reason Start Date Expiration Date Visits Re quested Visits Authorized [id number] Closed 08/11/2024 09/02/2024 1 1 Reason Comments Results Outside US Reason Comments Mammogram Result Call Back Reason Comments Results Reason Comments Orders Specialty Diagnoses / Procedures Referred By Contac t Referred To Contact CT IMAGING Diagnoses Gross hematuria Procedures CT UROGRAM WO/W IVCON CT ABD & PELVIS W/WO CONTRST 1+ BODY REGNS Shilpi Borrero, ENVIRONMENTAL PROFESSIONAL.ELEVATOR CONSTRUCTOR HYDRAULIC, DNP [address] [place] [address] [facility] [place] [address] Referral ID Status Reason Start Date Expiration Date V isits Requested Visits Authorized [id number] Closed Auto-Generate d Referral 08/26/2024 09/02/2024 1 1 Reason Onset Date Comments Refill Request 08/28/2024 Reason Comments Established Patient HUBER on pap, RLS, chr onic insomnia, freg nocturnal awakening Reason Comments Sinus Infection Specialty Diagnoses / Procedures Referred By Contac t Referred To Contact Family Medicine / FAMILY MEDICINE Diagnoses Abnormal mammogram Medicare Wellness Procedures OFFICE/OUTPATIENT ESTABLISHED MOD MDM 30 MIN 4C EST WELL Self Ganga Nunez MD [address] [place] [address] Referral ID Status Reason Start Date Expiration Date Visits Re quested Visits Authorized [id number] Closed 09/16/2024 12/15/2024 1 1 Reason Comments Established Patient 3 month follow up Specialty Diagnoses / Procedures Referred By Contac t Referred To Contact Pulmonary Disease / PULMONARY MEDICINE Diagnoses SOB (shortness of breath) 3 mth f/u Procedures OFFICE/OUTPATIENT ESTABLISHED MOD MDM 30 MIN RI EST PULM GENERAL Self Tyler Wray, ENVIRONMENTAL PROFESSIONAL.ELEVATOR CONSTRUCTOR HYDRAULIC [address] [place] [phone] Referral ID Status Reason Start Date Expiration Date Visits Re quested Visits Authorized [id number] Closed 09/17/2024 09/02/2025 1 1 Reason Onset Date Comments Refill Request 09/21/2024 Reason Comments Continuity Of Care Reason Comments Outside Colonoscopy/EGD Operative report letter x 2, H&P Reason Comments Sinus Problem sinus pressure and d rainage x 3 weeks, chest congestion and cough x 3 days Reason Comments Medicare Wellness Exam Specialty Diagnoses / Procedures Referred By Contac t Referred To Contact Family Medicine / FAMILY MEDICINE Diagnoses Bacterial sinusitis Medicare wellness Procedures OFFICE/OUTPATIENT ESTABLISHED MOD MDM 30 MIN 4C EST WELL Self Edwina Khoury PA-C [address] [place] [address] Referral ID Status Reason Start Date Expiration Date Visits Re quested Visits Authorized [id number] Closed 09/30/2024 09/02/2025 1 1 Specialty Diagnoses / Procedures Referred By Nico t Referred To Contact [facility] Diagnoses Abnormal mammogram Procedures US BREAST LTD RIGHT US BREAST UNI REAL TIME WITH IMAGE LIMITED Edwina Khoury PA-C [address] [place] [address] [facility] Imaging [address] [place] [address] Referral ID Status Reason Start Date Expiration Date Visits Requested Visits Authorized [id number] Authorized Auto-Generat ed Referral 10/01/2024 09/02/2025 1 1 Reason Comments Colposcopy Vaginal vault Specialty Diagnoses / Procedures Referred By Nico linton Referred To Contact [facility] Diagnoses 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 [address] Tessy Rice MD [address] [place] [address] Referral ID Status Reason Start Date Expiration Date V isits Requested Visits Authorized [id number] Closed Auto-Generate d Referral 09/26/2024 09/02/2025 1 1 Reason Comments Results - Ct Specialty Diagnoses / Procedures Referred By Nico linton Referred To Contact Urology / UROLOGY Diagnoses Encounter for general adult medical examination without abnormal findings 8 WK F/U / CT RESULTS Procedures OFFICE/OUTPATIENT ESTABLISHED MOD MDM 30 MIN EST UROL Shilpi Borrero APRN.CNP, DNP [address] [place] [address] Phone: tel: fax: Shilpi Borrero APRN.CNP, DNP [address] [place] [address] Phone: tel: fax: Referral ID Status Reason Start Date Expiration Date Visits Re quested Visits Authorized [id number] Closed 10/13/2024 09/02/2025 1 1 Reason Comments Cystoscopy-1 Specialty Diagnoses / Procedures Referred By Contac t Referred To Contact Urology / UROLOGY Diagnoses Gross hematuria Cysto per [facility] Procedures CYSTOURETHROSCOPY CYSTOSCOPY Self Samson Mcmahon Jr., MD [address] [place] [address] Phone: tel: fax: Referral ID Status Reason Start Date Expiration Date Visits Re quested Visits Authorized [id number] Closed 10/28/2024 09/02/2025 1 1 Reason Comments Results Outside facility xra y Reason Comments Urinary Problem Urgency, burning and frequency x 4 days Reason Onset Date Comments Results 12/14/2024 Reason Onset Date Comments Refill Request 12/13/2024 Reason Comments Problem Visit Reason Onset Date Comments Results 12/17/2024 Reason Onset Date Comments Refill Request 12/19/2024 Reason Onset Date Comments Refill Request 01/17/2025 Reason Comments Established Patient Follow Up Reason Comments Head Congestion ST, sinus drainage, bilateral ear pain R worse x3 days Reason Comments F/U 6 Month Reason Comments Radiology US Specialty Diagnoses / Procedures Referred By Contac t Referred To Contact [facility] Diagnoses Renal cyst Procedures US KIDNEY/BLADDER US RETROPERITONEAL REAL TIME W/IMAGE COMPLETE Shilpi Borrero, ENVIRONMENTAL PROFESSIONAL.ELEVATOR CONSTRUCTOR HYDRAULIC, DNP [address] [place] [address] Phone: tel: fax: [place] [address] Referral ID Status Reason Start Date Expiration Date V isits Requested Visits Authorized [id number] Closed Auto-Generate d Referral 04/13/2025 09/02/2025 1 1 Reason Onset Date Comments Results 04/13/2025 Reason Comments Urinary Frequency Frequency and urgenc y x 2 days Reason Comments Follow Up UTI Care Teams (unrecognized sec tion and content) Business Line Manager Relationship Specialty Start Date End Date Ganga Nunez MD [address] [place] [address] PCP - General Family Practice 03/31/21 Kiki Lynn MD [address] [place] [address] Primary Staff Physician Cardiology 11/19/18 Business Line Manager Relationship Specialty Start Date End Date Ganga Nunez MD [address] [place] [address] PCP - General Family Practice 03/31/21 Kiki Lynn MD [address] [place] [address] Primary Staff Physician Cardiology 11/19/18 Business Line Manager Relationship Specialty Start Date End Date Ganga Nunez MD [address] [place] [address] PCP - General Family Practice 03/31/21 Kiki Lynn MD [address] [place] [address] Primary Staff Physician Cardiology 11/19/18 Business Line Manager Relationship Specialty Start Date End Date Ganga Nunez MD [address] [place] [address] PCP - General Family Practice 03/31/21 Kiki Lynn MD [address] [place] [address] Primary Staff Physician Cardiology 11/19/18 Business Line Manager Relationship Specialty Start Date End Date Ganga Nunez MD [address] [place] [address] PCP - General Family Practice 03/31/21 Kiki Lynn MD [address] [place] [address] Primary Staff Physician Cardiology 11/19/18 Business Line Manager Relationship Specialty Start Date End Date Ganga Nunez MD [address] [place] [address] PCP - General Family Practice 03/31/21 Kiki Lynn MD [address] [place] [address] Primary Staff Physician Cardiology 11/19/18 Business Line Manager Relationship Specialty Start Date End Date Ganga Nunez MD [address] [place] [address] PCP - General Family Practice 03/31/21 Kiki Lynn MD [address] [place] [address] Primary Staff Physician Cardiology 11/19/18 Business Line Manager Relationship Specialty Start Date End Date Ganga Nunez MD [address] [place] [address] PCP - General Family Practice 03/31/21 Kiki Lynn MD [address] [place] [address] Primary Staff Physician Cardiology 11/19/18 Business Line Manager Relationship Specialty Start Date End Date Ganga Nunez MD [address] [place] [address] PCP - General Family Practice 03/31/21 Kiki Lynn MD [address] [place] [address] Primary Staff Physician Cardiology 11/19/18 Business Line Manager Relationship Specialty Start Date End Date Ganga Nunez MD [address] [place] [address] PCP - General Family Practice 03/31/21 Kiki Lynn MD [address] [place] [address] Primary Staff Physician Cardiology 11/19/18 Business Line Manager Relationship Specialty Start Date End Date Ganga Nunez MD [address] [facility] [address] PCP - General Family Practice 03/31/21 Kiki Lynn MD [address] [place] [address] Primary Staff Physician Cardiology 11/19/18 Business Line Manager Relationship Specialty Start Date End Date Ganga Nunez MD [address] [place] [address] PCP - General Family Practice 03/31/21 Kiki Lynn MD [address] [place] [address] Primary Staff Physician Cardiology 11/19/18 Business Line Manager Relationship Specialty Start Date End Date Ganga Nunez MD [address] [place] [address] PCP - General Family Practice 03/31/21 Kiki Lynn MD [address] [place] [address] Primary Staff Physician Cardiology 11/19/18 Business Line Manager Relationship Specialty Start Date End Date Ganga Nunez MD [address] [place] [address] PCP - General Family Practice 03/31/21 Kiki Lynn MD [address] [place] [address] Primary Staff Physician Cardiology 11/19/18 Business Line Manager Relationship Specialty Start Date End Date Ganga Nunez MD [address] [place] [address] PCP - General Family Practice 03/31/21 Kiki Lynn MD [address] [place] [address] Primary Staff Physician Cardiology 11/19/18 Business Line Manager Relationship Specialty Start Date End Date Ganga Nunez MD [address] [place] [address] PCP - General Family Practice 03/31/21 Kiki Lynn MD [address] [place] [address] Primary Staff Physician Cardiology 11/19/18 Business Line Manager Relationship Specialty Start Date End Date Ganga Nunez MD [address] [place] [address] PCP - General Family Practice 03/31/21 Kiki Lynn MD [address] [place] [address] Primary Staff Physician Cardiology 11/19/18 Business Line Manager Relationship Specialty Start Date End Date Ganga Nunez MD [facility] [place] [address] PCP - General Family Practice 03/31/21 Kiki Lynn MD [address] [place] [address] Primary Staff Physician Cardiology 11/19/18 Business Line Manager Relationship Specialty Start Date End Date Ganga Nunez MD [facility] [place] [address] PCP - General Family Practice 03/31/21 Kiki Lynn MD [address] [place] [address] Primary Staff Physician Cardiology 11/19/18 Business Line Manager Relationship Specialty Start Date End Date Ganga Nunez MD [address] [place] [address] PCP - General Family Practice 03/31/21 Kiki Lynn MD [address] [place] [address] Primary Staff Physician Cardiology 11/19/18 Business Line Manager Relationship Specialty Start Date End Date Ganga Nunez MD [address] [place] [address] PCP - General Family Practice 03/31/21 Kiki Lynn MD [address] [place] [address] Primary Staff Physician Cardiology 11/19/18 Business Line Manager Relationship Specialty Start Date End Date Ganga Nunez MD [address] [place] [address] PCP - General Family Practice 03/31/21 Kiki Lynn MD [address] [place] [address] Primary Staff Physician Cardiology 11/19/18 Business Line Manager Relationship Specialty Start Date End Date Ganga Nunez MD [address] [place] [address] PCP - General Family Practice 03/31/21 Kiki Lynn MD [address] [place] [address] Primary Staff Physician Cardiology 11/19/18 Business Line Manager Relationship Specialty Start Date End Date Ganga Nunez MD [address] [place] [address] PCP - General Family Practice 03/31/21 Kiki Lynn MD [address] [place] [address] Primary Staff Physician Cardiology 11/19/18 Business Line Manager Relationship Specialty Start Date End Date Ganga Nunez MD [address] [place] [address] PCP - General Family Practice 03/31/21 Kiki Lynn MD [address] [place] [address] Primary Staff Physician Cardiology 11/19/18 Business Line Manager Relationship Specialty Start Date End Date Ganga Nunez MD [address] [place] [address] PCP - General Family Practice 03/31/21 Kiki Lynn MD [address] [place] [address] Primary Staff Physician Cardiology 11/19/18 Business Line Manager Relationship Specialty Start Date End Date Ganga Nunez MD [address] [place] [address] PCP - General Family Medicine 03/31/21 Kiki Lynn MD [address] [place] [address] Primary Staff Physician Cardiology 11/19/18 Business Line Manager Relationship Specialty Start Date End Date Ganga Nunez MD [address] [place] [address] PCP - General Family Medicine 03/31/21 Kiki Lynn MD [address] [place] [address] Primary Staff Physician Cardiology 11/19/18 Business Line Manager Relationship Specialty Start Date End Date Ganga Nunez MD [address] [place] [address] PCP - General Family Medicine 03/31/21 Kiki Lynn MD [address] [facility] [place] [address] Primary Staff Physician Cardiology 11/19/18 Business Line Manager Relationship Specialty Start Date End Date Ganga Nunez MD [address] [place] [address] PCP - General Family Medicine 03/31/21 Kiki Lynn MD [address] [place] [address] Primary Staff Physician Cardiology 11/19/18 Business Line Manager Relationship Specialty Start Date End Date Ganga Nunez MD [address] [place] [address] PCP - General Family Medicine 03/31/21 Kiki Lynn MD [address] [place] [address] Primary Staff Physician Cardiology 11/19/18 Business Line Manager Relationship Specialty Start Date End Date Ganga Nunez MD [address] [place] [address] PCP - General Family Medicine 03/31/21 Kiki Lynn MD [address] [place] [address] Primary Staff Physician Cardiology 11/19/18 Business Line Manager Relationship Specialty Start Date End Date Ganga Nunez MD [address] [place] [address] PCP - General Family Medicine 03/31/21 Kiki Lynn MD [address] [place] [address] Primary Staff Physician Cardiology 11/19/18 Business Line Manager Relationship Specialty Start Date End Date Ganga Nunez MD [address] [place] [address] PCP - General Family Medicine 03/31/21 Kiki Lynn MD [address] [place] [address] Primary Staff Physician Cardiology 11/19/18 Business Line Manager Relationship Specialty Start Date End Date Ganga Nunez MD [address] [place] [address] PCP - General Family Medicine 03/31/21 Kiki Lynn MD [address] [place] [address] Primary Staff Physician Cardiology 11/19/18 Business Line Manager Relationship Specialty Start Date End Date Ganga Nunez MD [address] [place] [address] PCP - General Family Medicine 03/31/21 Kiki Lynn MD [address] [place] [address] Primary Staff Physician Cardiology 11/19/18 Business Line Manager Relationship Specialty Start Date End Date Ganga Nunez MD [address] [place] [address] PCP - General Family Medicine 03/31/21 Kiki Lynn MD [address] [place] [address] Primary Staff Physician Cardiology 11/19/18 Business Line Manager Relationship Specialty Start Date End Date Ganga Nunez MD [address] [place] [address] PCP - General Family Medicine 03/31/21 Kiki Lynn MD [address] [place] [address] Primary Staff Physician Cardiology 11/19/18 Business Line Manager Relationship Specialty Start Date End Date Ganga Nunez MD [address] [place] [address] PCP - General Family Medicine 03/31/21 Kiki Lynn MD [address] [place] [address] Primary Staff Physician Cardiology 11/19/18 Business Line Manager Relationship Specialty Start Date End Date Ganga Nunez MD [address] [place] [address] PCP - General Family Medicine 03/31/21 Kiki Lynn MD [address] [place] [address] Primary Staff Physician Cardiology 11/19/18 Business Line Manager Relationship Specialty Start Date End Date Ganga Nunez MD [address] [place] [address] PCP - General Family Medicine 03/31/21 Kiki Lynn MD [address] [place] [address] Primary Staff Physician Cardiology 11/19/18 Business Line Manager Relationship Specialty Start Date End Date Ganga Nunez MD [address] [place] [address] PCP - General Family Medicine 03/31/21 Kiki Lynn MD [address] [place] [address] Primary Staff Physician Cardiology 11/19/18 Business Line Manager Relationship Specialty Start Date End Date Ganga Nunez MD [facility] [place] [address] PCP - General Family Medicine 03/31/21 Kiki Lynn MD [address] [place] [address] Primary Staff Physician Cardiology 11/19/18 Business Line Manager Relationship Specialty Start Date End Date Ganga Nunez MD [address] [place] [address] PCP - General Family Medicine 03/31/21 Kiki Lynn MD [address] [place] [address] Primary Staff Physician Cardiology 11/19/18 Business Line Manager Relationship Specialty Start Date End Date Ganga Nunez MD [address] [place] [address] PCP - General Family Medicine 03/31/21 Kiki Lynn MD [address] [place] [address] Primary Staff Physician Cardiology 11/19/18 Business Line Manager Relationship Specialty Start Date End Date Ganga Nunez MD [address] [place] [address] PCP - General Family Medicine 03/31/21 Kiki Lynn MD [address] [place] [address] Primary Staff Physician Cardiology 11/19/18 Business Line Manager Relationship Specialty Start Date End Date Ganga Nunez MD [address] [place] [address] PCP - General Family Medicine 03/31/21 Kiki Lynn MD [address] [place] [address] Primary Staff Physician Cardiology 11/19/18 Business Line Manager Relationship Specialty Start Date End Date Ganga Nunez MD [address] [place] [address] PCP - General Family Medicine 03/31/21 Kiki Lynn MD [address] [place], [place] [id number] Primary Staff Physician Cardiology 11/19/18 Team Status: Active Member Role Status Dates Dr. Thor Cho III, MD Family Provider Active Dr. Ganga Nunez MD Primary Care Provider Active Team Status: Inactive Member Role Status Dates Dr. Ganga Nunez MD Primary Care Provider, Referri ng Provider Active Too Anna SURGERY SPECIALIST, SURGERY SPECIALIST-C Attending Provider Active Team Status: Active Member Role Status Dates Dr. Ganga Nunez MD Primary Care Provider Active Too Anna SURGERY SPECIALIST, SURGERY SPECIALIST-C Referring Provider, Other Provide r Active Dr. Ashu Menendez MD Attending Provider Active Team Status: Active Member Role Status Dates Dr. Ganga Nunez MD Primary Care Provider Active Too Anna SURGERY SPECIALIST, SURGERY SPECIALIST-C Attending Provider Active Team Status: Inactive Member Role Status Dates Dr. Ganga Nunez MD Primary Care Provider Active Too Anna SURGERY SPECIALIST, SURGERY SPECIALIST-C Attending Provider, Referring Pro vider Active Business Line Manager Relationship Specialty Start Date End Date Ganga Nunez MD [address] [place] [address] PCP - General Family Medicine 03/31/21 Kiki Lynn MD [address] [place] [address] Primary Staff Physician Cardiology 11/19/18 Business Line Manager Relationship Specialty Start Date End Date Ganga Nunez MD [address] [place] [address] PCP - General Family Medicine 03/31/21 Kiki Lynn MD [address] [place] [address] Primary Staff Physician Cardiology 11/19/18 Business Line Manager Relationship Specialty Start Date End Date Ganga Nunez MD [address] [place] [address] PCP - General Family Medicine 03/31/21 Kiki Lynn MD [address] [place], [place] [address] Primary Staff Physician Cardiology 11/19/18 Business Line Manager Relationship Specialty Start Date End Date Ganga Nunez MD [address] [place] [address] PCP - General Family Medicine 03/31/21 Kiki Lynn MD [address] [place], [place] [address] Primary Staff Physician Cardiology 11/19/18 Business Line Manager Relationship Specialty Start Date End Date Ganga Nunez MD [address] [place] [address] PCP - General Family Medicine 03/31/21 Kiki Lynn MD [address] [place], [place] [address] Primary Staff Physician Cardiology 11/19/18 Business Line Manager Relationship Specialty Start Date End Date Ganga Nunez MD [address] [place] [address] PCP - General Family Medicine 03/31/21 Kiki Lynn MD [address] [place] [address] Primary Staff Physician Cardiology 11/19/18 Business Line Manager Relationship Specialty Start Date End Date Ganga Nunez MD [address] [place] [address] PCP - General Family Medicine 03/31/21 Kiki Lynn MD [address] [place] [address] Primary Staff Physician Cardiology 11/19/18 Business Line Manager Relationship Specialty Start Date End Date Ganga Nunez MD [address] [place] [address] PCP - General Family Medicine 03/31/21 Kiki Lynn MD [address] [place], [place] [address] Primary Staff Physician Cardiology 11/19/18 Business Line Manager Relationship Specialty Start Date End Date Ganga Nunez MD [address] [place], [place] [address] PCP - General Family Medicine 03/31/21 Kiki Lynn MD [address] [place], [place] [address] Primary Staff Physician Cardiology 11/19/18 Business Line Manager Relationship Specialty Start Date End Date Ganga Nunez MD [address] [place] [address] PCP - General Family Medicine 03/31/21 Kiki Lynn MD [address] [place], [place] [address] Primary Staff Physician Cardiology 11/19/18 Business Line Manager Relationship Specialty Start Date End Date Ganga Nunez MD [address] [place] [address] PCP - General Family Medicine 03/31/21 Kiki Lynn MD [address] [place], [place] [address] Primary Staff Physician Cardiology 11/19/18 Business Line Manager Relationship Specialty Start Date End Date Ganga Nunez MD [address] [place] [address] PCP - General Family Medicine 03/31/21 Kiki Lynn MD [address] [place], [place] [address] Primary Staff Physician Cardiology 11/19/18 Business Line Manager Relationship Specialty Start Date End Date Ganga Nunez MD [address] [place] [address] PCP - General Family Medicine 03/31/21 Kiki Lynn MD [address] [place], [place] [id number] Primary Staff Physician Cardiology 11/19/18 Business Line Manager Relationship Specialty Start Date End Date Ganga Nunez MD [address] [place] [address] PCP - General Family Medicine 03/31/21 Kiki Lynn MD [address] [place] [address] Primary Staff Physician Cardiology 11/19/18 Business Line Manager Relationship Specialty Start Date End Date Ganga Nunez MD [address] [place], [place] 045271 PCP - General Family Medicine 03/31/21 Kiki Lynn MD [address] [place] [address] Primary Staff Physician Cardiology 11/19/18 Business Line Manager Relationship Specialty Start Date End Date Ganga Nunez MD [address] [place], [place] 245161 PCP - General Family Medicine 03/31/21 Kiki Lynn MD [address] [facility] [place] [address] Primary Staff Physician Cardiology 11/19/18 Team Status: Active Member Role Status Dates Dr. Ganga Nunez MD Primary Care Provider, Referri ng Provider Active Dr. Chip Bourgeois MD Attending Provider Active Team Status: Active Member Role Status Dates Dr. Ganga Nunez MD Primary Care Pro vider, Attending Provider, Referring Provider Active Team Status: Inactive Member Role Status Dates Dr. Ganga Nunez MD Primary Care Provider Active Dr. Samson Blunt DO Admit Provider, Attending Provider, Referring Provider Active Team Status: Active Member Role Status Dates Dr. Ganga Nunez MD Primary Care Provider Active INDHORTENCIA VELAZQUEZ Attending Provider, Referring Provide r Active Dr. Samson Blunt DO Other Provider Active Team Status: Inactive Member Role Status Dates Dr. Ganga Nunez MD Primary Care Provider Active INDERHORTENCIA BILLINGSLEY Attending Provider, Referring Provide r Active Dr. Samson Blunt DO Other Provider Active Team Status: Inactive Member Role Status Dates Dr. Ganga Nunez MD Primary Care Provider Active Dr. Samson Blunt DO Attending Provider, Referring Provider Active Business Line Manager Relationship Specialty Start Date End Date Ganga Nunez MD [address] [place], [place] 713401 PCP - General Family Medicine 03/31/21 Kiki Lynn MD [address] [place], [place] [address]874295 Primary Staff Physician Cardiology 11/19/18 Business Line Manager Relationship Specialty Start Date End Date Ganga Nunez MD [address] [place] [address] PCP - General Family Medicine 03/31/21 Kiki Lynn MD [address] [facility] [place] [place] 1844[address] Primary Staff Physician Cardiology 11/19/18 Team Status: Active Member Role Status Dates Dr. Ganga Nunez MD Primary Care Provider Active Dr. Paras Cho MD Attending Provider Active Dr. Samson Blunt DO Referring Provider Active Business Line Manager Relationship Specialty Start Date End Date Ganga Nunez MD [address] [place] [address] PCP - General Family Medicine 03/31/21 Kiki Lynn MD [address] [place], [place] 6409295 Primary Staff Physician Cardiology 11/19/18 Business Line Manager Relationship Specialty Start Date End Date Ganga Nunez MD [address] [place] [address] PCP - General Family Medicine 03/31/21 Kiki Lynn MD [address] [place] [address] Primary Staff Physician Cardiology 11/19/18 Team Status: Active Member Role Status Dates Dr. Ganga Nunez MD Primary Care Provider Active Dr. Guilherme oJshua MD Attending Provider Active Business Line Manager Relationship Specialty Start Date End Date Ganga Nunez MD [address] [place] [address] PCP - General Family Medicine 03/31/21 Kiki Lynn MD [address] [place], [place] [id number] Primary Staff Physician Cardiology 11/19/18 Team Status: Active Member Role Status Dates Dr. Ganga Nunez MD Primary Care Provider Active Dr. Guilherme Joshua MD Attending Provider, Referring Pro vider Active Team Status: Active Member Role Status Dates Dr. Ganga Nunez MD Primary Care Provider Active Dr. Jose Carroll MD Attending Provider Active Team Status: Inactive Member Role Status Dates Dr. Ganga Nunez MD Primary Care Provider Active Dr. Phillip Cortez MD Attending Provider, Referring P rovider Active Business Line Manager Relationship Specialty Start Date End Date Ganga Nunez MD [address] [place] [address] PCP - General Family Medicine 03/31/21 Kiki Lynn MD [address] [place], [place] 9797295 Primary Staff Physician Cardiology 11/19/18 Team Status: Active Member Role Status Dates Dr. Ganga Nunez MD Primary Care Provider Active Dr. Jose Carroll MD Attending Provider Active Dr. Phillip Cortez MD Referring Provider Active Team Status: Active Member Role Status Dates Dr. Ganga Nunez MD Primary Care Provider Active Dr. Phillip Cortez MD Attending Provider, Referring P rovider Active Business Line Manager Relationship Specialty Start Date End Date Ganga Nunez MD [address] [place] [address] PCP - General Family Medicine 03/31/21 Kiki Lynn MD [address] [place], [place] [id number] Primary Staff Physician Cardiology 11/19/18 Business Line Manager Relationship Specialty Start Date End Date Ganga Nunez MD [address] [place] [address] PCP - General Family Medicine 03/31/21 Kiki Lynn MD [address] [place] [address] Primary Staff Physician Cardiology 11/19/18 Business Line Manager Relationship Specialty Start Date End Date Ganga Nunez MD [address] [place] [address] PCP - General Family Medicine 03/31/21 Kiki Lynn MD [address] [place], [place] [address] Primary Staff Physician Cardiology 11/19/18 Business Line Manager Relationship Specialty Start Date End Date Ganga Nunez MD [address] [place] [address] PCP - General Family Medicine 03/31/21 Kiki Lynn MD [address] [place] [address] Primary Staff Physician Cardiology 11/19/18 Business Line Manager Relationship Specialty Start Date End Date Ganga Nunez MD [address] [place] [address] PCP - General Family Medicine 03/31/21 Kiki Lynn MD [address] [place] [address] Primary Staff Physician Cardiology 11/19/18 Business Line Manager Relationship Specialty Start Date End Date Ganga Nunez MD [address] [place] [address] PCP - General Family Medicine 03/31/21 Kiki Lynn MD [address] [facility] [place] [address] Primary Staff Physician Cardiology 11/19/18 Business Line Manager Relationship Specialty Start Date End Date Ganga Nunez MD [address] [place], [place] 663831 PCP - General Family Medicine 03/31/21 Kiki Lynn MD [address] [place] [address] Primary Staff Physician Cardiology 11/19/18 Business Line Manager Relationship Specialty Start Date End Date Ganga Nunez MD [address] [place] [address] PCP - General Family Medicine 03/31/21 Kiki Lynn MD [address] [place] [address] Primary Staff Physician Cardiology 11/19/18 Business Line Manager Relationship Specialty Start Date End Date Ganga Nunez MD [address] [place] [address] PCP - General Family Medicine 03/31/21 Kiki Lynn MD [address] [place] [address] Primary Staff Physician Cardiology 11/19/18 Business Line Manager Relationship Specialty Start Date End Date Ganga Nunez MD [address] [place] [address] PCP - General Family Medicine 03/31/21 Kiki Lynn MD [address] [place] [address] Primary Staff Physician Cardiology 11/19/18 Business Line Manager Relationship Specialty Start Date End Date Ganga Nunez MD [address] [place] [address] PCP - General Family Medicine 03/31/21 Kiki Lynn MD [address] [place] [address] Primary Staff Physician Cardiology 11/19/18 Business Line Manager Relationship Specialty Start Date End Date Ganga Nunez MD [address] [place] [address] PCP - General Family Medicine 03/31/21 Kiki Lynn MD [address] [place] [address] Primary Staff Physician Cardiology 11/19/18 Business Line Manager Relationship Specialty Start Date End Date Ganga Nunez MD [address] [place], [place] 776641 PCP - General Family Medicine 03/31/21 Kiki Lynn MD [address] [place] [address] Primary Staff Physician Cardiology 11/19/18 Business Line Manager Relationship Specialty Start Date End Date Ganga Nunez MD [address] [place] [address] PCP - General Family Medicine 03/31/21 Kiki Lynn MD [address] [place], [place] 9449995 Primary Staff Physician Cardiology 11/19/18 Business Line Manager Relationship Specialty Start Date End Date Ganga Nunez MD [address] [place] [address] PCP - General Family Medicine 03/31/21 Kiki Lynn MD [address] [place], [place] 4995495 Primary Staff Physician Cardiology 11/19/18 Business Line Manager Relationship Specialty Start Date End Date Ganga Nunez MD [address] [place] [address] PCP - General Family Medicine 03/31/21 Kiki Lynn MD [address] [place], [place] 08697[address] Primary Staff Physician Cardiology 11/19/18 Business Line Manager Relationship Specialty Start Date End Date Ganga Nunez MD [address] [place] [address] PCP - General Family Medicine 03/31/21 Kiki Lynn MD [address] [place], [place] [address] Primary Staff Physician Cardiology 11/19/18 Business Line Manager Relationship Specialty Start Date End Date Ganga Nunez MD [address] [place] [address] PCP - General Family Medicine 03/31/21 Kiki Lynn MD [address] [place], [place] 2325695 Primary Staff Physician Cardiology 11/19/18 Business Line Manager Relationship Specialty Start Date End Date Ganga Nunez MD [address] [place], [place] 959981 PCP - General Family Medicine 03/31/21 Kiki Lynn MD [address] [place], [place] 4995895 Primary Staff Physician Cardiology 11/19/18 Business Line Manager Relationship Specialty Start Date End Date Ganga Nunez MD [address] [place] [address] PCP - General Family Medicine 03/31/21 Kiki Lynn MD [address] [place], [place] 3532995 Primary Staff Physician Cardiology 11/19/18 Business Line Manager Relationship Specialty Start Date End Date Ganga Nunez MD [address] [place] [address] PCP - General Family Medicine 03/31/21 Kiki Lynn MD [address] [place] [address] Primary Staff Physician Cardiology 11/19/18 Business Line Manager Relationship Specialty Start Date End Date Ganga Nunez MD [address] [place] [address] PCP - General Family Medicine 03/31/21 Kiki Lynn MD [address] [place], [place] 3416395 Primary Staff Physician Cardiology 11/19/18 Business Line Manager Relationship Specialty Start Date End Date Ganga Nunez MD [address] [place] [address] PCP - General Family Medicine 03/31/21 Kiki Lynn MD [address] [place] [address] Primary Staff Physician Cardiology 11/19/18 Business Line Manager Relationship Specialty Start Date End Date Ganga Nunez MD [address] [place], [place] 432771 PCP - General Family Medicine 03/31/21 Kiki Lynn MD [address] [place] [address] Primary Staff Physician Cardiology 11/19/18 Business Line Manager Relationship Specialty Start Date End Date Ganga Nunez MD [address] [place] [address] PCP - General Family Medicine 03/31/21 Kiki Lynn MD [address] [place], [place] 8102295 Primary Staff Physician Cardiology 11/19/18 Business Line Manager Relationship Specialty Start Date End Date Ganga Nunez MD [address] [place] [address] PCP - General Family Medicine 03/31/21 Kiki Lynn MD [address] [place] [address] Primary Staff Physician Cardiology 11/19/18 Business Line Manager Relationship Specialty Start Date End Date Ganga Nunez MD [address] [place] [address] PCP - General Family Medicine 03/31/21 Kiki Lynn MD [address] [place], [place] 668[address]95 Primary Staff Physician Cardiology 11/19/18 Business Line Manager Relationship Specialty Start Date End Date Ganga Nunez MD [address] [place] [address] PCP - General Family Medicine 03/31/21 Kiki Lynn MD [address] [place], [place] 1273895 Primary Staff Physician Cardiology 11/19/18 Business Line Manager Relationship Specialty Start Date End Date Ganga Nunez MD [address] [place] [address] PCP - General Family Medicine 03/31/21 Kiki Lynn MD [address] [place] [address] Primary Staff Physician Cardiology 11/19/18 Business Line Manager Relationship Specialty Start Date End Date Ganga Nunez MD [address] [place], [place] 431141 PCP - General Family Medicine 03/31/21 Kiki Lynn MD [address] [place] [address] Primary Staff Physician Cardiology 11/19/18 Business Line Manager Relationship Specialty Start Date End Date Ganga Nunez MD [address] [place] [address] PCP - General Family Medicine 03/31/21 Kiki Lynn MD [address] [facility] [place] [address] Primary Staff Physician Cardiology 11/19/18 Business Line Manager Relationship Specialty Start Date End Date Ganga Nunez MD [address] [place] [address] 262541 PCP - General Family Medicine 03/31/21 Kiki Lynn MD [address] [place] [address] Primary Staff Physician Cardiology 11/19/18 Selam Argueta APRN.CNP [address] [place] [address] [phone] Analyst Sales Family Medicine 08/09/24 Edwina Khoury PA-C [address] [place] [address] [phone] Analyst Sales Family Medicine 08/09/24 Business Line Manager Relationship Specialty Start Date End Date Ganga Nunez MD [address] [place] [address] [id number] PCP - General Family Medicine 03/31/21 Kiki Lynn MD [address] [place], [place] 1965[address] Primary Staff Physician Cardiology 11/19/18 Selam Argueta, KALEIGH.ELEVATOR CONSTRUCTOR HYDRAULIC [address] [place] [address] Analyst Sales Family Medicine 08/09/24 Edwina Khoury PA-C [address] [place] [address] [facility] 08/09/24 Business Line Manager Relationship Specialty Start Date End Date Ganga Nunez MD [address] [place] [address] PCP - General Family Medicine 03/31/21 Kiki Lynn MD [address] [place], [place] 7706895 Primary Staff Physician Cardiology 11/19/18 Selam Argueta, ENVIRONMENTAL PROFESSIONAL.ELEVATOR CONSTRUCTOR HYDRAULIC [address] [place] [address] Analyst Sales Family Medicine 08/09/24 Edwina Khoury PA-C [address] [place] [address] [facility] Medicine 08/09/24 Business Line Manager Relationship Specialty Start Date End Date Ganga Nunez MD [address] [place] [address] PCP - General Family Medicine 03/31/21 Kiki Lynn MD [address] [place] [address] Primary Staff Physician Cardiology 11/19/18 Selam Argueta APRN.ELEVATOR CONSTRUCTOR HYDRAULIC [address] [place] [address] Analyst Sales Family Medicine 08/09/24 Edwina Khoury PA-C [address] [place] [address] Analyst Sales Family Medicine 08/09/24 Business Line Manager Relationship Specialty Start Date End Date Ganga Nunez MD [facility] [place] [address] PCP - General Family Medicine 03/31/21 Kiki Lynn MD [address] [place] [address] Primary Staff Physician Cardiology 11/19/18 Selam Argueta APRN.ELEVATOR CONSTRUCTOR HYDRAULIC [address] [place] [address] Analyst Sales Family Medicine 08/09/24 Edwina Khoury PA-C [address] [place] [address] [facility]/24 Business Line Manager Relationship Specialty Start Date End Date Ganga Nunez MD [address] [place], [place] 888461 PCP - General Family Medicine 03/31/21 Kiki Lynn MD [address] [place], [place] 1827495 Primary Staff Physician Cardiology 11/19/18 Selam Argueta, KALEIGH.ELEVATOR CONSTRUCTOR HYDRAULIC [address] [place] [address] [facility] 08/09/24 Edwina Khoury PA-C [address] [place] [address] [facility] 08/09/24 Business Line Manager Relationship Specialty Start Date End Date Ganga Nunez MD [address] [place] [address] PCP - General Family Medicine 03/31/21 Kiki Lynn MD [address] [place], [place] 3496395 Primary Staff Physician Cardiology 11/19/18 Selam Argueta, ENVIRONMENTAL PROFESSIONAL.ELEVATOR CONSTRUCTOR HYDRAULIC [address] [place] [address] [facility] 08/09/24 Edwina Khoury PA-C [address] [place] [address] [facility] 08/09/24 Business Line Manager Relationship Specialty Start Date End Date Ganga Nunez MD [address] [place] [address] PCP - General Family Medicine 03/31/21 Kiki Lynn MD [address] [place], [place] 9438695 Primary Staff Physician Cardiology 11/19/18 Selam Argueta, KALEIGH.ELEVATOR CONSTRUCTOR HYDRAULIC [address] [place] [address] Analyst Sales [facility] 08/09/24 Edwina Khoury PA-C [address] [place] [address] [facility] 08/09/24 Business Line Manager Relationship Specialty Start Date End Date Ganga Nunez MD [address] [place] [address] PCP - General Family Medicine 03/31/21 Kiki Lynn MD [address] [place] [address] Primary Staff Physician Cardiology 11/19/18 Selam Argueta, KALEIGH.ELEVATOR CONSTRUCTOR HYDRAULIC [address] [place] [address] [facility] 08/09/24 Edwina Khoury PA-C [address] [place] [address] [facility] 08/09/24 Business Line Manager Relationship Specialty Start Date End Date Ganga Nunez MD [address] [place] [address] PCP - General Family Medicine 03/31/21 Kiki Lynn MD [address] [place] [address] Primary Staff Physician Cardiology 11/19/18 Selam Argueta, ENVIRONMENTAL PROFESSIONAL.ELEVATOR CONSTRUCTOR HYDRAULIC [address] [place] [address] [facility]st [facility] 08/09/24 Edwina Khoury PA-C [address] [place] [address] [facility] 08/09/24 Business Line Manager Relationship Specialty Start Date End Date Ganga Nunez MD [address] [place] [address] PCP - General Family Medicine 03/31/21 Kiki Lynn MD [address] [place] [address] Primary Staff Physician Cardiology 11/19/18 Selam Argueta, KALEIGH.ELEVATOR CONSTRUCTOR HYDRAULIC [address] [place] [address] [facility] 08/09/24 Edwina Khoury PA-C [address] [place] [address] [facility] 08/09/24 Business Line Manager Relationship Specialty Start Date End Date Ganga Nunez MD [address] [place] [address] PCP - General Family Medicine 03/31/21 Kiki Lynn MD [address] [place] [address] Primary Staff Physician Cardiology 11/19/18 Selam Argueta, KALEIGH.ELEVATOR CONSTRUCTOR HYDRAULIC [address] [place] [address] [facility] 08/09/24 Edwina Khoury PA-C [address] [place] [address] [facility] 08/09/24 Business Line Manager Relationship Specialty Start Date End Date Ganga Nunez MD [address] [place] [address] PCP - General Family Medicine 03/31/21 Kiki Lynn MD [address] [place], [place] 5035295 Primary Staff Physician Cardiology 11/19/18 Selam Argueta APRN.ELEVATOR CONSTRUCTOR HYDRAULIC [address] [place] [address] Analyst Sales Family Medicine 08/09/24 Edwina Khoury PA-C [address] [place] [address] [facility] 08/09/24 Business Line Manager Relationship Specialty Start Date End Date Ganga Nunez MD [address] [place] [address] PCP - General Family Medicine 03/31/21 Kiki Lynn MD [address] [place] [address] Primary Staff Physician Cardiology 11/19/18 Selam Argueta APRN.ELEVATOR CONSTRUCTOR HYDRAULIC [address] [place] [address] Analyst Sales Family Medicine 08/09/24 Edwina Khoury PA-C [address] [place] [address] Analyst Sales Family Medicine 08/09/24 Business Line Manager Relationship Specialty Start Date End Date Ganga Nunez MD [address] [place] [address] PCP - General Family Medicine 03/31/21 Kiki Lynn MD [address] [place], [place] [phone] Primary Staff Physician Cardiology 11/19/18 Selam Argueta APRN.ELEVATOR CONSTRUCTOR HYDRAULIC [address] [place] [address] [facility] 08/09/24 Edwina Khoury PA-C [address] [place] [address] [facility] 08/09/24 Business Line Manager Relationship Specialty Start Date End Date Ganga Nunez MD [address] [place] [address] PCP - General Family Medicine 03/31/21 Kiki Lynn MD [address] [place], [place] [id number] Primary Staff Physician Cardiology 11/19/18 Selam Argueta APRN.ELEVATOR CONSTRUCTOR HYDRAULIC [address] [place] [address] [facility] Family Medicine 08/09/24 Edwina Khoury PA-C [address] [place] [address] Analyst Sales Family Medicine 08/09/24 Business Line Manager Relationship Specialty Start Date End Date Ganga Nunez MD [address] [place], [place] 733421 PCP - General Family Medicine 03/31/21 Kiki Lynn MD [address] [place] [address] Primary Staff Physician Cardiology 11/19/18 Selam Argueta, ENVIRONMENTAL PROFESSIONAL.ELEVATOR CONSTRUCTOR HYDRAULIC [address] [place] [address] Analyst Sales Family Medicine 08/09/24 Edwina Khoury PA-C [address] [place] [address] Analyst Sales Family Medicine 08/09/24 Business Line Manager Relationship Specialty Start Date End Date Ganga Nunez MD [address] [place] [address] PCP - General Family Medicine 03/31/21 Kiki Lynn MD [address] [place] [address] Primary Staff Physician Cardiology 11/19/18 Selam Argueta, ENVIRONMENTAL PROFESSIONAL.ELEVATOR CONSTRUCTOR HYDRAULIC [address] [place] [address] Analyst Sales Family Medicine 08/09/24 Edwina Khoury PA-C [facility] [place] [address] Analyst Sales Family Medicine 08/09/24 Business Line Manager Relationship Specialty Start Date End Date Ganga Nunez MD [address] [place] [address] PCP - General Family Medicine 03/31/21 Kiki Lynn MD [address] [place] [address] Primary Staff Physician Cardiology 11/19/18 Selam Argueta, KALEIGH.ELEVATOR CONSTRUCTOR HYDRAULIC [facility] [place], [place] 876470 [phone] Analyst Sales Family [facility] 08/09/24 Edwina Khoury PA-C [facility] [place] [address] [facility] 08/09/24 Business Line Manager Relationship Specialty Start Date End Date Ganga Nunez MD [facility] [place] [address] PCP - General Family Medicine 03/31/21 Kiki Lynn MD [address] [place], [place] [id number] Primary Staff Physician Cardiology 11/19/18 Selam Argueta, KALEIGH.ELEVATOR CONSTRUCTOR HYDRAULIC [address] [place] [address] [facility] Family Medicine 08/09/24 Edwina Khoury PA-C [address] [place] [address] [facility] 08/09/24 Business Line Manager Relationship Specialty Start Date End Date Ganga Nunez MD [address] [place] [address] PCP - General Family Medicine 03/31/21 Kiki Lynn MD [address] [place] [address] Primary Staff Physician Cardiology 11/19/18 Selam Argueta APRN.ELEVATOR CONSTRUCTOR HYDRAULIC [address] [place] [address] Analyst Sales Family Medicine 08/09/24 Edwina Khoury PA-C [address] [place] [address] Analyst Sales Family Medicine 08/09/24 Business Line Manager Relationship Specialty Start Date End Date Ganga Nunez MD [address] [place] [address] PCP - General Family Medicine 03/31/21 Kiki Lynn MD [address] [place], [place] [phone] Primary Staff Physician Cardiology 11/19/18 Selam Argueta APRN.ELEVATOR CONSTRUCTOR HYDRAULIC [address] [place] [address]175 Analyst Sales Family Medicine 08/09/24 Edwina Khoury PA-C [facility] [place] [address] [facility] 08/09/24 Business Line Manager Relationship Specialty Start Date End Date Ganga Nunez MD [address] [place] [address] PCP - General Family Medicine 03/31/21 Kiki Lynn MD [address] [place], [place] [id number] Primary Staff Physician Cardiology 11/19/18 Selam Argueta APRN.ELEVATOR CONSTRUCTOR HYDRAULIC [address] [place] [address] [facility] 08/09/24 Edwina Khoury PA-C [address] [place] [address] [facility] 08/09/24 Business Line Manager Relationship Specialty Start Date End Date Ganga Nunez MD [address] [place], [place] 098261 PCP - General Family Medicine 03/31/21 Kiki Lynn MD [address] [place], [place] [id number] Primary Staff Physician Cardiology 11/19/18 Selam Argueta, KALEIGH.ELEVATOR CONSTRUCTOR HYDRAULIC [address] [place], [place] 519581 [facility] 08/09/24 Edwina Khoury PA-C [address] [place] [address] [facility] 08/09/24 Business Line Manager Relationship Specialty Start Date End Date Ganga Nunez MD [address] [place], [place] 756671 PCP - General Family Medicine 03/31/21 Kiki Lynn MD [address] [place], [place] [id number] Primary Staff Physician Cardiology 11/19/18 Selam Argueta APRN.VICKY [address] [place], [place] 545171 [facility] 08/09/24 Edwina Khoury PA-C [address] [place], [place] 499801 [facility] 08/09/24 Team Status: Active Member Role Status Dates Dr. Ganga Nunez MD Primary Care Provider Active Team Status: Inactive Member Role Status Dates Dr. Ganga Nunez MD Primary Care Provider Active Start: August 08, 2024 End: August 08, 2024 OMER Hurst Attending Provider Active Start: August 08, 2024 End: August 08, 2024 OMER Hurst Referring Provider Active Start: August 08, 2024 End: August 08, 2024 Team Status: Inactive Member Role Status Dates Dr. Ganga Nunez MD Primary Care Provider Active Start: September 23, 2024 End: September 23, 2024 Dr. Ganga Nunez MD Referring Provider Active Start: September 23, 2024 End: September 23, 2024 Dr. Magdi Tam DO Attending Provider Active Start: September 23, 2024 End: September 23, 2024 Team Status: Active Member Role Status Dates Dr. Ganga Nunez MD Primary Care Provider Active Start: September 23, 2024 Dr. Ganga Nunez MD Referring Provider Active Start: September 23, 2024 Dr. Magdi Tam DO Attending Provider Active Start: September 23, 2024 Dr. Magdi Tam DO Other Provider Active St art: September 23, 2024 Team Status: Inactive Member Role Status Dates Dr. Ganga Nunez MD Primary Care Provider Active Start: October 13, 2024 End: October 13, 2024 Dr. Phillip Cortez MD Attending Provider Active Start: October 13, 2024 End: October 13, 2024 Dr. Phillip Cortez MD Referring Provider Active Start: October 13, 2024 End: October 13, 2024 Team Status: Inactive Member Role Status Dates Dr. Ganga Nunez MD Primary Care Provider Active Start: October 24, 2024 End: October 24, 2024 Dr. Ganga Nunez MD Referring Provider Active Start: October 24, 2024 End: October 24, 2024 OMER Shen Attending Provider Active Star t: October 24, 2024 End: October 24, 2024 Team Status: Inactive Member Role Status Dates Dr. Ganga Nunez MD Primary Care Provider Active Start: October 24, 2024 End: October 24, 2024 Dr. Guilherme Joshua MD Attending Provider Active S tart: October 24, 2024 End: October 24, 2024 Team Status: Inactive Member Role Status Dates Dr. Ganga Nunez MD Primary Care Provider Active Start: November 22, 2024 End: November 22, 2024 OMER Shen Attending Provider Active Star t: November 22, 2024 End: November 22, 2024 OMER Shen Referring Provider Active Star t: November 22, 2024 End: November 22, 2024 Business Line Manager Relationship Specialty Start Date End Date Ganga Nunez MD [address] [place] [address] PCP - General Family Medicine 12/08/24 Kiki Lynn MD [address] [place] [address] Primary Staff Physician Cardiology 11/19/18 Selam Argueta APRN.CNP [address] [place] [address] [phone] [facility] Family [facility] 08/09/24 Edwina Khoury PA-C [address] [place] [address] [phone] [facility] 08/09/24 Business Line Manager Relationship Specialty Start Date End Date Ganga Nunez MD [address] [place], [place] [phone] PCP - General Family Medicine 12/08/24 Kiki Lynn MD [address] [place], [place] [phone] Primary Staff Physician Cardiology 11/19/18 Selam Argueta, KALEIGH.ELEVATOR CONSTRUCTOR [employer]DR[employer]IC [address] [place] [phone] Analyst Sales Family Medicine 08/09/24 Edwina Khoury PA-C [address] [place] [address] Analyst Sales Family Medicine 08/09/24 Business Line Manager Relationship Specialty Start Date End Date Ganga Nunez MD [address] [place] [id number] PCP - General Family Medicine 12/08/24 Kiki Lynn MD [address] [place] [address] Primary Staff Physician Cardiology 11/19/18 Selam Argueta, KALEIGH.ELEVATOR CONSTRUCTOR [employer] [address] [place] [address] [phone] Analyst Sales Family Medicine 08/09/24 Edwina Khoury PA-C [address] [place] [address] 139[address] Analyst Sales Family Medicine 08/09/24 Business Line Manager Relationship Specialty Start Date End Date Ganga Nunez MD [address] [place] [address] PCP - General Family Medicine 12/08/24 Kiki Lynn MD [address] [place], [place] [phone] Primary Staff Physician Cardiology 11/19/18 Selam Argueta APRN.ELEVATOR CONSTRUCTOR [employer] [address] [place] [address] [facility] Family [facility] 08/09/24 Edwina Khoury PA-C [address] [place] [address] [facility] 08/09/24 Business Line Manager Relationship Specialty Start Date End Date Ganga Nunez MD [address] [place] [address] PCP - General Family Medicine 12/08/24 Kiki Lynn MD [address] [place], [place] [phone] Primary Staff Physician Cardiology 11/19/18 Selam Argueta APRN.ELEVATOR CONSTRUCTOR HYDR[employer] [facility] [place] [address] [facility] Family [facility] 08/09/24 Edwina Khoury PA-C [address] [place] [address] [facility] Medicine 08/09/24 Business Line Manager Relationship Specialty Start Date End Date Ganga Nunez MD [address] [place] [address] PCP - General Family Medicine 12/08/24 Kiki Lynn MD [address] [place], [place] [phone] Primary Staff Physician Cardiology 11/19/18 Selam Argueta APRN.ELEVATOR CONSTRUCTOR [employer] [address] [place] [address] [facility] 08/09/24 Edwina Khoury PA-C [address] [place] [address] [facility] 08/09/24 Business Line Manager Relationship Specialty Start Date End Date Ganga Nunez MD [address] [place] [address] PCP - General Family Medicine 12/08/24 Kiki Lynn MD [address] [place] [address] Primary Staff Physician Cardiology 11/19/18 Selam Argueta APRN.ELEVATOR CONSTRUCTOR [employer] [address] [place] [address] [facility] 08/09/24 01/18/25 Edwina Khoury PA-C [facility] [place] [address] [facility] 08/09/24 Business Line Manager Relationship Specialty Start Date End Date Ganga Nunez MD [address] [place] [address] PCP - General Family Medicine 12/08/24 Kiki Lynn MD [address] [place] [address] Primary Staff Physician Cardiology 11/19/18 Selam Argueta APRN.ELEVATOR CONSTRUCTOR [employer] [address] [place] [phone] Analyst Sales Family Medicine 02/02/25 Edwina Khoury PA-C [address] [place] [address] Analyst Sales Family Medicine 02/02/25 Business Line Manager Relationship Specialty Start Date End Date Ganga Nunez MD [address] [place] [address] PCP - General Family Medicine 12/08/24 Kiki Lynn MD [address] [place] [address] Primary Staff Physician Cardiology 11/19/18 Selam Argueta, KALEIGH.ELEVATOR CONSTRUCTOR [employer] [address] [place] [address] Analyst Sales Family Medicine 02/02/25 Edwina Khoury PA-C [facility] [place] [address] [facility] 02/02/25 Business Line Manager Relationship Specialty Start Date End Date Ganga Nunez MD [address] [place] [address] PCP - General Family Medicine 12/08/24 Kiki Lynn MD [address] [place] [address] Primary Staff Physician Cardiology 11/19/18 Selam Argueta, KALEIGH.ELEVATOR CONSTRUCTOR [employer] [address] [place] [address] [phone] Analyst Sales Family Medicine 02/02/25 Edwina Khoury PA-C [address] [place] [address] [facility] 02/02/25 Business Line Manager Relationship Specialty Start Date End Date Ganga Nunez MD [address] [place] [address] PCP - General Family Medicine 12/08/24 Kiki Lynn MD [address] [place] [address] Primary Staff Physician Cardiology 11/19/18 Selam Argueta, KALEIGH.ELEVATOR CONSTRUCTOR [employer] [address] [place] [address] [phone] Analyst Sales Family Medicine 02/02/25 Edwina Khoury PA-C [address] [place] [address] [facility] 02/02/25 Business Line Manager Relationship Specialty Start Date End Date Ganga Nunez MD [address] [place] [address] PCP - General Family Medicine 12/08/24 Kiki Lynn MD [address] [place], [place] [phone] Primary Staff Physician Cardiology 11/19/18 Selam Argueta, KALEIGH.ELEVATOR CONSTRUCTOR HYDRA[employer]IC [facility] [place] [address] Analyst Sales Family Medicine 02/02/25 Edwina Khoury PA-C [address] [place] [address] Analyst Sales Family Medicine 02/02/25 PRN Active and Recently Administ ered Medications (unrecognized section and content) Medication Order 11/28/2022 11/29/2022 11/30/2022 BUPivacaine (PF) 0.5 % (5 mg/mL) injection INTRA-ARTICULAR, X (OR/PROCEDURE) PRN, Starting on Arely 11/30/22 at 1038, Until Sun12/01/22 at 0304, Intraprocedure 1038 (Given - Provid er: Ines Dwyer PA-C) lidocaine (PF) 20 mg/mL (2 %) injection (XYLOCAINE) SUBCUTANEOUS, X (OR/PROCEDURE) PRN, Starting on Arely 11/30/22 at 1035, Until Sun12/01/22 at 0304, Intraprocedure 1035 (Given - Provid er: Inse Dwyer PA-C) triamcinolone acetonide injection (KeNALog 40) INTRA-ARTICULAR, X (OR/PROCEDURE) PRN, Starting on Arely 11/30/22 at 1037, Until Sun12/01/22 at 0304, Intraprocedure 1037 (Given - Provid er: Ines Dwyer PA-C - Comment: rt hip) INFORMATION SOURCE (unrecogn ized section and content) DATE CREATED AUTHOR 08/29/2023 [facility] DATE CREATED AUTHOR AUTHOR'S ORGANIZ ATION 11/12/2023 [facility] ([place]) DATE CREATED AUTHOR AUTHOR'S ORGANIZ ATION 11/28/2024 [facility] DATE CREATED AUTHOR AUTHOR'S ORGANIZ ATION 03/31/2025 [facility] DATE CREATED AUTHOR AUTHOR'S ORGANIZ ATION 04/30/[address] [facility] FOR RECORDS PERTAINING TO PATIENTS WHO ARE [...] BE BASED ON THE PRIMARY CLINICAL RECORDS. [facility] [facility]. provides no warranty or guarantee of the accuracy or completeness of information in this document.
[2025-05-10 18:44] LABS: Mucous, Urine 0 SEEN /hpf (<or=2+); Squamous Epithelial Cells - UA 0 SEEN /hpf (5-10)
[2025-05-10 18:45] LABS: Color, Urine Yellow (Yellow); Glucose, Dipstick Normal (Normal); Ketone-Dipstick Negative (Negative); Leukocyte Esterase-Dipstick 25 /ul (Negative); Nitrite-Dipstick Negative (Negative); Occult Blood-Urine 50 /ul (Negative); Protein-Dipstick 15 mg/dl (Negative); Specific Gravity, Urine 1.020 (1.002-1.030); Urine Bilirubin Dipstick Negative (Negative)
--- NOTE | 2025-05-10 18:45 | CT_ITS ---
PROCEDURE: ABDOMEN/PELVIS WITHOUT CONT N/A REASON FOR EXAM: LEFT FLANK PAIN TECHNIQUE: Procedure Code: CTABDPEL Modality: CT Procedure: ABDOMEN/PELVIS WITHOUT CONT Noncontrast technique limits evaluation of the abdominal and pelvic viscera. Coronal and Sagittal reconstruction series were provided. One or more dose reduction techniques were used (e.g., Automated exposure control, adjustment of the mA and/or kV according to patient size, use of iterative reconstruction technique). RADIATION DOSE SUMMARY: CTDlvol: 13.89 mGy DLP: 770.21 mGycm COMPARISON: CT abdomen/pelvis May 28, 2024. FINDINGS: Study limitations: Evaluation through the lower pelvis is partially nondiagnostic due to extensive metallic streak artifact from bilateral hip hardware. Evaluation for inflammatory change, infection, bowel wall thickening, mass, adenopathy, viscera and vasculature is compromised without contrast. Lung bases: Subpleural reticular and ground-glass opacities at the visualized lung bases likely due to atelectasis and/or parenchymal scarring. Liver: Hepatic length is 19.1 cm. Evaluation of hepatic parenchyma is limited without contrast. Hepatic attenuation is consistent with steatosis. Gallbladder/biliary: No calcified gallstones or pericholecystic fluid. Pancreas: No pancreatic inflammation. Spleen: The spleen is not enlarged. Adrenals: The adrenal glands are within normal limits. Kidneys/ureters: There is no hydronephrosis. No renal calculi. The distal ureters are not identified due to extensive metallic streak artifact. Innumerable calcific density seen within the pelvis may represent phleboliths. Correlation with hematuria and urinalysis is advised. If there is hematuria or abnormal urinalysis, consider follow-up with urology and retrograde assessment of the distal ureters. Evaluation of renal parenchyma is limited without contrast. 7 cm exophytic right upper pole renal lesion consistent with a cyst. Gastrointestinal: No hiatal hernia. Evaluation for bowel wall and fold thickening is compromised on this study, secondary to lack of any contrast. The stomach is distended with ingested material to a transverse diameter of over 10 cm. This may indicate vigorous recent ingestion, however clinical correlation with symptoms of gastroparesis. No bowel dilation to suggest complete small bowel obstruction. Enteritis can not be ruled out on this study. No focal mesenteric inflammation. No mesenteric lymphadenopathy by size criteria. Scattered fecal material and gas distending portions of the colon and rectum to be correlated for constipation. No pericolonic inflammation. No evidence of acute diverticulitis. Appendix: The appendix is not visualized. No secondary inflammation is seen at the cecal apex. Peritoneal/retroperitoneal: No free intraperitoneal air. Limited visualization through the pelvis. No free intraperitoneal fluid is seen otherwise. Vascular: No abdominal aortic aneurysm or retroperitoneal hematoma. There is calcific atherosclerosis. Vascular patency or dissection can not be assessed on this study. Lymph nodes: No visible lymphadenopathy by size criteria. Urinary bladder: The urinary bladder is not clearly visualized due to extensive metallic streak artifact within the pelvis. If there are bladder symptoms, consider cystogram or cystoscopy. Reproductive: Pelvic viscera and adnexa are not diagnostically visualized due to lack of contrast and extensive streak artifact within the pelvis. If there are pelvic symptoms in this patient consider ultrasound. Soft tissues: No body wall hematoma or soft tissue emphysema. Osseous: Degenerative changes of the spine. Bilateral hip replacements extending below the level of imaging. CT/Abdomen/Pelvis without Cont IMPRESSION: No hydronephrosis. Genitourinary findings and limitations discussed above. - Nonspecific gastrointestinal findings to be correlated clinically for significa nce are discussed above. No free air, free fluid or focal mesenteric inflammation. - Other findings and significant study limitations discussed above. Reading Location: [facility]
[2025-05-10 18:50] LABS: Anion Gap 15 (5-15); BUN 17 mg/dL (4-19); BUN/Creat Ratio 15.1 RATIO (10-20); Calcium,Total 9.4 mg/dL (7.6-11.0); Carbon Dioxide 22.8 mmol/L (21.0-32.0); Chloride 102 mmol/L (98-108); Estimated Creatinine Clearance 56.89 ml/min (50-250); Glucose 154 mg/dL (70-99); Potassium 4.2 mmol/L (3.3-5.1)
[2025-05-10 19:05] LABS: Red Blood Cells-Urine 0-5 SEEN /hpf (0-5)
[2025-05-10 20:06] VITALS: BP 142/75; PULSE 64; RESP 20; TEMP 36.9; O2SAT 94
== END 2025-05-10 20:10 | disposition home or self-care (01) ==
PROVIDERS: Emergency Provider Student in an Organized Health Care Education/Training Program; PCP Family Medicine; Visit Provider Student in an Organized Health Care Education/Training Program
DX: M54.50 Low back pain, unspecified (principal); I10 Essential (primary) hypertension; Z79.899 Other long term (current) drug therapy; Z87.891 Personal history of nicotine dependence
CPT/HCPCS: 74176; 80048; 81001; 85025; 87086; 87088; 96361; 96374; 99283

== ENCOUNTER → 2025-05-21 | Outpatient (CLI) | payer OTHER, MEDICARE, SELFPAY ==
--- NOTE | 2025-05-21 14:12 | VDLE_ITS ---
Reason For Study Reason For Study: RIght leg swelling RIGHT LEFT GSV is normal. CFV is compressible, spontaneous, phasic, competent, CFV is compressible, spontaneous, phasic, competent and demonstrates normal augmentation. and demonstrates normal augmentation. FV is compressible, spontaneous, phasic, competent and demonstrates normal augmentation. POP V is compressible, spontaneous, phasic, competent and demonstrates normal augmentation. T/P Trunk is compressible. PTV is compressible. RT PerV is compressible. Procedure This is a venous duplex using B-mode, color flow and spectral Doppler. Exam performed in department. A preliminary report was called and/or faxed to [facility]. VL/Venous Duplex US, Unilateral Interpretation Summary Deep veins of the right lower extremity are patent and compressible segmentally . There is no evidence of right lower extremity deep vein thrombosis. Valvular competence appears intact within the p roximal deep venous system on the right . The right great saphenous vein appears patent and compressible segmentally. The left common femoral vein is patent and compressible . Ordering Physician: Juanis Harper Referring Physician: Ganga Nunez Performed By: Homa Aguirre RVT
== END | disposition home or self-care (01) ==
LOC: CVS 14:08
PROVIDERS: PCP Family Medicine
DX: R22.41 Localized swelling, mass and lump, right lower limb (principal)
CPT/HCPCS: 93971

== ENCOUNTER → 2025-06-18 | Outpatient (CLI) | payer OTHER, MEDICARE, SELFPAY ==
--- NOTE | 2025-06-18 13:41 | ECHOD_ITS ---
Reason For Study Reason For Study: MURMUR Procedure This was a 2D Doppler, Color Flow transthoracic echocardiogram. Exam performed in department. Left Ventricle Normal LV size. Mild concentric left ventricular hypertrophy. The left ventricular ejection fraction is 60 %. Stage 1 diastolic dysfunction. No regional wall motion abnormalities noted. Right Ventricle Normal RV size. Normal systolic function. Atria Normal left atrium. Normal right atrium. Mitral Valve Normal mitral valve. Mild (1+) mitral valve insufficiency. Tricuspid Valve Normal tricuspid valve. Mild (1+) tricuspid valve insufficiency. Pulmonary artery systolic pressure is 32 mmHg. Aortic Valve Trisinus/trileaflet aortic valve. Mild (1+) aortic valve insufficiency. Pulmonic Valve Normal pulmonic valve. Great Vessels Moderately dilated aortic root. Measuring 4.6 cm. The pulmonary artery is normal size. Inferior vena cava collapse with respiration. Pericardium/Pleural No pericardial effusion. MMode/2D Measurements & Calculations LVIDd: 4.3 cm IVSd: 1.3 cm asc Aorta Diam: 4.3 cm LVIDs: 3.3 cm LVPWd: 1.2 cm RVDd: 2.7 cm FS: 24.5 % LAV(MOD-bp): 46.1 ml LVAd ap4: 30.8 cm2 SV(MOD-sp4): 49.9 ml LAV(MOD-bp) Indexed: 22.4 ml/m2 LVLd ap4: 8.6 cm SI(MOD-sp4): 24.2 ml/m2 LAV(MOD-sp2): 51.0 ml EDV(MOD-sp4): 89.8 ml LAV(MOD-sp4): 42.2 ml EDV(sp4-el): 93.8 ml LVAs ap4: 17.9 cm2 LVLs ap4: 6.8 cm ESV(MOD-sp4): 39.9 ml ESV(sp4-el): 39.7 ml EF(MOD-sp4): 55.6 % EF(sp4-el): 57.7 % SV(sp4-el): 54.1 ml LA A4 area: 16.0 cm2 LA dimension(2D): 3.4 cm RA A4 area: 11.8 cm2 Time Measurements MV dec time: 0.17 sec Doppler Measurements & Calculations MV E max cash: 73.9 cm/sec Lat Peak E' Cash: 7.6 cm/sec MV V2 max: 84.3 cm/sec MV A max cash: 88.8 cm/sec E/E' lat: 9.8 MV max P.8 mmHg MV E/A: 0.83 MV V2 mean: 54.4 cm/sec MV mean P.3 mmHg MV V2 VTI: 43.3 cm Ao V2 max: 133.3 cm/sec AI max cash: 494.1 cm/sec MV dec slope: 473.1 cm/sec2 Ao max P.1 mmHg AI max P.7 mmHg Ao V2 mean: 90.5 cm/sec Ao mean P.8 mmHg AI dec slope: 238.6 cm/sec2 Ao V2 VTI: 33.9 cm AI P1/2t: 606.6 msec AV (velocity ratio): 0.91 LV V1 max: 131.3 cm/sec MR max cash: 4.5 cm/sec PA V2 max: 90.4 cm/sec LV V1 max P.9 mmHg MR max P.01 mmHg PA V2 mean: 65.0 cm/sec LV V1 mean P.9 mmHg LV V1 mean: 92.3 cm/sec LV V1 VTI: 30.7 cm TR max cash: 266.2 cm/sec TR max P.3 mmHg ECHO/Echo Complete Interpretation Summary Normal LV size. Mild concentric left ventricular hypertrophy. The left ventricular ejection fraction is 60 %. Stage 1 diastolic dysfunction. Mild (1+) mitral valve insufficiency. Mild (1+) aortic valve insufficiency. Moderately dilated aortic root. Measuring 4.6 cm Ordering Physician: Guilherme Joshua Referring Physician: Guilherme Joshua Performed By: Harleen Mathews RCS
--- NOTE | 2025-06-18 13:41 | CT_ITS ---
PROCEDURE: CTA CHEST W/WO CONTRAST 06/18/2025 REASON FOR EXAM: Aortic aneurysm TECHNIQUE: Procedure Code: [id number] Modality: CT Procedure: CTA CHEST W/WO CONTRAST Multiplanar Sagittal and Coronal images were obtained. 3D post processing was performed CONTRAST: Isovue 370 VOLUME: 100 mL One or more dose reduction techniques were used (e.g., Automated exposure control, adjustment of the mA and/or kV according to patient size, use of iterative reconstruction technique). RADIATION DOSE SUMMARY: CTDlvol: 32.16 mGy DLP: 591.68 mGycm COMPARISON: 2022 # of known CTs in the past 12 months: 0 # of known Cardiac Nuclear Medicine Studies in the past 12 months: 0 FINDINGS: Thoracic Aorta: Stable aneurysmal dilatation of the ascending thoracic aorta at 4.5 cm. No evidence of dissection. Normal-appearing thyroid gland. No suspicious axillary, mediastinal or perihilar adenopathy. No calcified coronary vessels, no filling defects within the pulmonary arteries to suspect PE. Lung windows show the lungs to be normally expanded. No superimposed acute pulmonary process. No suspicious noncalcified mass or nodule. Limited cuts through the upper abdomen show fatty infiltration of the liver. There is a stable simple right renal cyst. Bony structures show degenerative change CT/CTA Chest W/WO Contrast IMPRESSION: Stable aneurysmal dilatation of the ascending thoracic aorta at 4.5 cm. No acute pulmonary process No suspicious adenopathy Degenerative bony changes Reading Location: [id number]
== END | disposition home or self-care (01) ==
LOC: CVS 13:39
PROVIDERS: PCP Family Medicine; Referring Provider Internal Medicine Cardiovascular Disease; Visit Provider Internal Medicine Cardiovascular Disease
DX: I35.1 Nonrheumatic aortic (valve) insufficiency (principal)
CPT/HCPCS: 71275; 93306; Q9967; A4216

== ENCOUNTER → 2025-07-28 | Outpatient (CLI) | payer OTHER, MEDICARE, SELFPAY ==
--- NOTE | 2025-07-28 12:58 | MRI_ITS ---
PROCEDURE: SPINE CERVICAL (ROUTINE) 07/28/2025 REASON FOR EXAM: CERVICAL MYELOPATHY TECHNIQUE: Procedure Code: MRISPC Modality: MR Procedure: SPINE CERVICAL (ROUTINE) Multiplanar and multisequence images were obtained without IV contrast administration. COMPARISON: None available. FINDINGS: The visualized posterior fossa contents appear within normal limits. The normal cervical lordosis is maintained. The atlantooccipital and atlantoaxial joints appear normally aligned. The cervical vertebral bodies are normal in height. Mild C4-C5 and C7-T1 anterolisthesis. The cervical bone marrow signal is within normal limits. Multilevel disc desiccation. Anterior osteophytes most prominent at C5-C6. There is no evidence of cervical spinal cord signal abnormality. C2-C3: No significant spinal canal stenosis or neural foraminal narrowing. C3-C4: No significant spinal canal stenosis. Bilateral facet arthropathy and uncovertebral spurring contribute to mild neural foraminal narrowing. C4-C5: Uncovering of the disc and disc bulge. Mild to moderate spinal canal stenosis with flattening of the ventral cord. Bilateral facet arthrosis and uncovertebral spurring contribute to mild right and severe left neural foraminal narrowing. C5-C6: Posterior disc osteophyte complex, bilateral facet arthrosis, and uncovertebral spurring. Mild spinal canal stenosis. [id number] right and moderate left neural foraminal narrowing. C6-C7: No significant spinal canal stenosis stenosis. Bilateral facet arthrosis and uncovertebral spurring contribute to mild bilateral neural foraminal narrowing. C7-T1: Uncovering of the disc, bilateral facet arthrosis, and uncovertebral spurring. No significant spinal canal stenosis. Mild bilateral neural foraminal narrowing. MRI/Spine Cervical (Routine) IMPRESSION: Cervical spondylosis most prominent at C4-C5 where there is [id number] sp inal canal stenosis and severe left neural foraminal stenosis. Reading Location: [facility]
== END | disposition home or self-care (01) ==
LOC: MRI 12:55
PROVIDERS: PCP Family Medicine; Referring Provider Orthopaedic Surgery Orthopaedic Surgery of the Spine; Visit Provider Orthopaedic Surgery Orthopaedic Surgery of the Spine
DX: G95.9 Disease of spinal cord, unspecified (principal)
CPT/HCPCS: 72141